=== PATIENT | female | born 1955 | race Caucasian/White ===

== ENCOUNTER 2023-07-06 09:55 | Outpatient (OUT) | payer MEDICARE, OTHER, SELFPAY ==
[2023-07-06 10:27] LABS: Basophils Absolute Auto 0.1 10^3/uL (0.0-0.1); Basophils Percent Auto 1.8 % (0.2-2.0); Eosinophils Absolute Auto 0.1 10^3/uL (0.0-0.7); Eosinophils Percent Auto 3.2 % (0.9-7.0); Hematocrit 38.2 % (36.0-48.0); Hemoglobin 12.3 g/dL (12.0-16.0); Immature Granulocytes Abs Auto 0.01 10^3/uL (0.00-0.03); Immature Granulocytes Pct Auto 0.3 % (0.0-0.5); Lymphocytes Absolute Auto 1.1 10^3/uL (1.2-3.8); Lymphocytes Percent Auto 28.7 % (20.5-60.0); Mean Corpuscular HGB Conc 32.2 g/dL (29.9-35.2); Mean Corpuscular Hemoglobin 30.1 pg (26.7-34.0); Mean Corpuscular Volume 93.6 fL (81.0-99.0); Mean Platelet Volume 9.8 fL (9.5-13.5); Monocytes Absolute Auto 0.3 10^3/uL (0.3-0.8); Monocytes Percent Auto 8.4 % (1.7-12.0); Neutrophils Absolute Auto 2.2 10^3/uL (1.4-6.5); Neutrophils Percent Auto 57.6 % (43.0-75.0); Platelet Count 263 10^3/uL (150-450); Red Blood Count 4.08 10^6/uL (4.20-5.40); Red Cell Distribution Width 12.1 % (11.0-15.0); White Blood Count 3.8 10^3/uL (4.0-11.0)
[2023-07-06 10:36] LABS: Erythrocyte Sedimentation Rate 14 mm/hr (<=30)
[2023-07-06 11:10] LABS: Alanine Aminotransferase 21 U/L (14-59); Albumin Globulin Ratio 0.8; Albumin Level 3.9 g/dL (3.4-5.0); Alkaline Phosphatase 59 U/L (46-116); Anion Gap 11.1; Aspartate Amino Transferase 16 U/L (15-37); BUN Creatinine Ratio 13.2; Bilirubin Total 0.5 mg/dL (0.2-1.0); C Reactive Protein <0.2 mg/dL (<=1.0); Calcium 9.2 mg/dL (8.5-10.1); Carbon Dioxide 27.9 mmol/L (21.0-32.0); Chloride 103 mmol/L (98-107); Chol HDL Ratio 1.9; Cholesterol 198 mg/dL (<=200); Estimated GFR (African America >60 (>=60); Estimated GFR (Non-African Ame >60 (>=60); Globulin 4.6 g/dL; Glucose 85 mg/dL (74-106); HDL Cholesterol 105 mg/dL (40-60); Sodium 138 mmol/L (136-145); Total Protein 8.5 g/dL (6.4-8.2); Triglycerides 45 mg/dL (<=150); Uric Acid 3.3 mg/dL (2.6-6.0)
[2023-07-07 06:08] LABS: Rheumatoid Factor (RF) <10.0 IU/mL (<14.0)
[2023-07-07 12:09] LABS: PTH, Intact 36 pg/mL (15-65)
[2023-07-08 08:11] LABS: Antinuclear Antibodies, IFA Negative (.)
== END 2023-07-06 09:56 | disposition home or self-care (01) ==
PROVIDERS: PCP Internal Medicine; Visit Provider Nurse Practitioner Family
DX: Z00.00 Encounter for general adult medical examination without abnormal findings (principal); M79.10 Myalgia, unspecified site
CPT/HCPCS: 36415; 80053; 80061; 82306; 83970; 84550; 85025; 85652; 86038; 86140; 86430; 86431

== ENCOUNTER 2023-07-20 19:46 | Outpatient (REF) | payer MEDICARE, OTHER, SELFPAY ==
[2023-07-26 14:12] LABS: Age Gdln ACOG Testing Note (.); Pap IG (Image Guided) Note (.)
== END 2023-07-20 19:47 | disposition home or self-care (01) ==
LOC: LAB 19:46
PROVIDERS: PCP Internal Medicine; Visit Provider Obstetrics & Gynecology
DX: Z01.419 Encounter for gynecological examination (general) (routine) without abnormal findings (principal)
CPT/HCPCS: G0145

== ENCOUNTER 2024-01-02 12:10 | Emergency (ER) | payer MEDICARE, OTHER, SELFPAY ==
[2024-01-02 12:14] VITALS: BP 140/75; PULSE 90; TEMP 36.8; O2SAT 99; BMI 19.7
--- OUTSIDE RECORDS SUMMARY | 2024-01-02 12:17 | XMS_ITS | CCD ---
Author Organization [facility] Care Team Providers Care Psychiatric Nurse Name Role Phone JELANI EBER J Referring Unavailable SHER, EBER J Primary Care Unavailable RADIOLOGIST, MTH GEN Attending Unavailable SHRE, EBER J Referring Unavailable SHER, EBER J Primary Care Unavailable NED CARVALHO Admitting Unavailable NED CARVALHO Attending Unavailable SHER, EBER J Primary Care Unavailable SHER, EBER J Referring Unavailable SHER, EBER J Primary Care Unavailable Sher, Eber J Primary Care Provider DO Efren Stanley Primary Care Provider [phone] DO Efren Stanley Attending Provider None, No PCP Unavailable Unavailable Henrique Vail Referring Unavailable Henrique Vail Attending Unavailable DO Efren Stanley Primary Care Provider MD Henrique Vail Attending Provider [phone] MD Roz Aguilera Attending Provider [phone] DO Efren Stanley Referring Provider [phone] Self, Referral Attending Provider Unavailable DR PATRICK VENTURA V Attending Unavailable LORENZO, DR PATRICK Yeh Consulting Unavailable DR PATRICK VENTURA V Admitting Unavailable SHWETHA ., DR ZAVALA Attending Unavailable SHWETHA ., DR ZAVALA Consulting Unavailable SHWETHA ., DR ZAVALA Admitting Unavailable SHWETHA ., DR ZAVALA Admitting Unavailable SHWETHA ., DR ZAVALA Attending Unavailable SHWETHA ., DR ZAVALA Consulting Unavailable ZIEBER, DR NED Lawton Consulting Unavailable Lucas Lan Referring Unavailable Self, Referral Admitting Unavailable Self, Referral Attending Unavailable Efren Stanley Primary Care Unavailable Problems Active Problems Problem Classification Problem Date Documented Da te Episodic/Chronic Osteoporosis (1 source) Age-related osteoporosis without current pathological fracture; Translations: [AGE-REL OSTEOPOR W/O CURR PATH FX] Onset: 03-29-2022 Chronic Other screening for suspected conditions (not mental disorders or infectious disease) (1 source) Radiology result abnormal; Translations: [Other nonspecific (abnormal) findings on radiological and other examinations of body structure] Chronic Unclassified (1 source) Encounter for screening mammogram for malignant neoplasm of breast; Translations: [Encounter for screening mammogram for malignant neoplasm of breast] Onset: 11-30-2023 Varicose veins of lower extremity (4 sources) Varicose veins of bilateral lower extremities with pain; Translations: [VARICOSE VNS DICK LOW EXTREM W/PAIN] Onset: 12-08-2022 Episodic Past or Other Problems Problem Classification Problem Date Documented Date Episodic/Chronic Immunizations and screening for infectious disease (1 source) Encounter for screening for human papillomavirus (HPV); Translations: [ENC SCREENING HUMAN PAPILLOMAVIRUS] Onset: 03-19-2022 Episodic Nonmalignant breast conditions (1 source) Mastodynia; Translations: [MASTODYNIA] Onset: 03-29-2022 Episodic Other screening for suspected conditions (not mental disorders or infectious disease) (5 sources) Mammography abnormal; Translations: [Encounter for screening for malignant neoplasm of cervix] Onset: 03-16-2022 Episodic Residual codes; unclassified (4 sources) Asymptomatic menopausal state; Translations: [ASYMPTOMATIC MENOPAUSAL STATE] Onset: 03-24-2022 Episodic Unclassified (1 source) Patient encounter status; Translations: [Colon cancer screening] Onset: 03-02-2019 Resolved: 04-11-2019 04-11-2019 Results Test Name Value Interpretation Reference Range Facility MM screening mammo BI w/CADo n 11-30-2023 MM screening mammo BI w/CAD [facility] [place] [address] Mammography Report Signed Patient: Mirian Corrales MR#: [id number] 67 : 1955 Acct:[id number] Age/Sex: 68 / F ADM Date: 11/30/23 Loc: [place] Room: Type: [facility] Attending Dr: Referral Self Copies to: Lucas Stanley,DO SELF,REFERRAL Ordering Provider: SELF,REFERRAL Date of Service: 11/30/23 MM/MM screening mammo BI w/CAD: SCREENING CLINICAL DATA: Screening for malignancy. SCREENING MAMMOGRAM - FULL FIELD DIGITAL WITH TOMOSYNTHESIS AND CAD COMPARISON:Mammograms dating back to 2019 Tomosynthesis craniocaudal and mediolateral oblique views of both breasts were obtained using low- dose digital technique. This examination was reviewed with the aid of CAD. FINDINGS: The breast tissue is composed of scattered fibroglandular densities. There are no dominant masses, typically malignant calcifications or architectural distortion. There has been no significant interval change. MM/MM screening mammo BI w/CAD IMPRESSION: NO MAMMOGRAPHIC EVIDENCE OF MALIGNANCY. ROUTINE FOLLOW-UP IS RECOMMENDED IN ONE YEAR. RESULT CODE: 1 Negative DENSITY CODE: 2 (approximately 25-50% glandular) FOLLOW UP: 1YR The false-negative rate of mammography is approximately 10-percent. Management of a palpable abnormality must be based on clinical grounds. Patient was entered into a reminder system with a target due date for the next mammogram. Impression dictated by: Toribio Michael Jr., D.OBuddy11/30/2023 3:26 PM Dictation Location: [facility] Transcribed By: JULIOCESAR 11/30/23 1526 Dictated By: Toribio Michael Jr, DO 11/30/23 1525 Signed By: 11/30/23 1526 Normal [facility] Albumin [Mass/volume] in Ser um or PlasmaOrdered By: Henrique Vail on 09-18-2022 Albumin [Mass/Vol] 4.0 g/dL 3.2-5.5 [facility] Alkaline phosphatase [Enzyma tic activity/volume] in Serum or PlasmaOrdered By: Henrique Vail on 09-18-2022 ALP [Catalytic activity/Vol] 44 U/L 32-92 [facility] Aspartate aminotransferase [ Enzymatic activity/volume] in Serum or PlasmaOrdered By: Henrique Vail on 09-18-2022 AST [Catalytic activity/Vol] 23 U/L 10-42 [facility] Bilirubin.direct [Mass/volum e] in Serum or PlasmaOrdered By: Henrique Vail on 09-18-2022 Bilirubin.direct [Mass/Vol] mg/dL 0.0-0.4 [facility] Bilirubin.total [Mass/volume ] in Serum or PlasmaOrdered By: Henrique Vail on 09-18-2022 Bilirubin [Mass/Vol] 0.4 mg/dL 0.3-1.2 [facility] Globulin Calc (S) [Mass/Vol] Ordered By: Henrique Vail on 09-18-2022 Globulin (S) [Mass/Vol] 2.7 g/dL [facility] Protein [Mass/volume] in Ser um or PlasmaOrdered By: Henrique Vail on 09-18-2022 Protein [Mass/Vol] 6.7 g/dL 6.1-7.9 [facility] Serum or plasma alanine steve otransferase measurement without P-5'-P (enzymatic activiOrdered By: Henrique Vail on 09-18-2022 ALT No additional P-5'-P [Catalytic activity/Vol] 23 U/L 10-60 [facility] Serum or plasma albumin/glob ulin mass ratioOrdered By: Henrique Vail on 09-18-2022 Albumin/Globulin [Mass ratio] 1.5 {ratio} [facility] Serum or plasma non-glucuron idated bilirubin measurement (mass/volume)Ordered By: Henrique Vail on 09-18-2022 Bilirubin.indirect [Mass/Vol] TNP [facility] Comment on above: Test not performed Initial Visit (Gastroenterol ogy)on 08-26-2022 Initial Visit (Gastroenterology) Diagnoses/Problems Assessed Abnormal radiographic examination (793.99) (R93.89) Orders Abnormal radiographic examination Hepatic Function Panel; Status:Active; Requested for:[id number]; Perform:Lab Services - Lab To Draw (Blood Test); Due:[id number];Ordered; For:Abnormal radiographic examination; Ordered By:Henrique Vail; Provider Impressions Family history of pancreas and other cancers. MR shows possibel cutoff or to my eye looks like artifact possibly from right hepatic artery. There is no proximal dilation to suggest obstruction. Will check LFTs. If they are normal would consider repeat scan in few months. FOr familial pancreas cnacer we spent time discussing guidelines -- pros and ocns of annual imaging as long as she is healthy. SHe had MR this year. Would get EUS next year. Total time 25 minutes Chief Complaint A telephone visit (audio only) between the patient (at the originating site) and the provider (at the distant site) was utilized to provide this telehealth service. Fam Hx Panc Ca History of Present IllnessOne brother age 45 and another at age 51 had pancreatic cancer; had genetic testing. Father had BRIP1 mutation. Paternal grandmother (70's), paternal aunt (60's) and endometrial cancer and daughter (41) had breast cancer; maternal aunt had breast cancer. She herselt healthy and getting screened. Is on gluten free dairy free diet and also on probiotcis. No surgery before. Screenign colonoscopy a few years ago. Non-smoker. 5'6 weighs 125 lbs. Exercise daily. Family History Brother Family history of pancreatic cancer (V16.0) (Z80.0)1 1 Amended By: Henrique Vail; Aug 26 2022 10:28 AM ESTSignatures Electronically signed by : Henrique Vail MD; Aug 26 2022 10:28AM EST (Author) Normal [facility] MG MAMM DIAGNOSTIC 3D DICK CA Don 03-24-2022 MG MAMM DIAGNOSTIC 3D DICK CAD Patient: MIRIAN CORRALES Exam Date: 03/24/2022 : 1955 Gender:F Ordering : DR LUCAS LAN . Admission #: [id number] Family : Order #: [id number] CLICK HERE TO VIEW EXAM RADIOLOGY REPORT PROCEDURE: MAMMOGRAM DIAGNOSTIC 3D BILATERAL CAD, 03/24/2022, 13:26 ULTRASOUND BREAST BILATERAL LIMITED, 03/24/2022, 14:14 COMPARISON: US BREAST LEFT COMPLETE, 05/05/2019. US BREAST RIGHT COMPLETE, 05/05/2019. MG MAMM DICK SCRN W CAD DIG, 11/08/2021. MG MAMM DICK DIAG W CAD, 05/05/2019. INDICATIONS: Pain of breast Calculator Name NCI Breast Cancer Risk Assessment Tool 5 Year Breast Cancer Risk 3.20% Lifetime Breast Cancer Risk 11.30% Personal Breast Cancer No Personal Ovarian Cancer No Treatments None Family Cancers Daughter with breast cancer at age 41; Aunt-paternal with breast cancer at age 70; Grandmother-paternal with ovarian cancer at age 74; Brother with pancreatic cancer at age 51; Brother with pancreatic cancer at age 45; Father with melanoma cancer at age 88; Niece with melanoma cancer at age 25; Aunt-maternal with breast cancer at age 35. LOCATION: [facility] BREAST COMPOSITION: Heterogeneously dense,which may obscure small masses. FINDINGS: DIAGNOSTIC CATEGORY 2--BENIGN FINDING: RIGHT BREAST: Stable asymmetries within the upper-outer quadrant, subareolar and within the axillary tail. Ultrasound evaluation demonstrates a stable, nonspecific area at the 9 o'clock position suspected represent normal fibroglandular tissue, not appreciably changed. Benign-appearing lymph node within the axillary tail. No specific findings to account for patient's tenderness. LEFT BREAST: A stable mild asymmetries within the upper-outer quadrant, anterior breast. Ultrasound evaluation demonstrates a benign-appearing cyst at the 3 o'clock position 3 millimeters in maximum size. Nonspecific 5 mm area at the 4 o'clock position without definable margins; not appreciably changed. RECOMMENDATIONS: Patient has had multiple studies done at multiple different sites with some of the images and some of the reports available for comparison. Consistency may be beneficial for evaluating for changes and completeness of care. Short-term follow-up could be performed if any changes noted. ROUTINE MAMMOGRAM AND CLINICAL EVALUATION IN 12 MONTHS. PLEASE NOTE: A NORMAL MAMMOGRAM DOES NOT EXCLUDE THE POSSIBILITY OF BREAST CANCER. A CLINICALLY SUSPICIOUS PALPABLE LUMP SHOULD BE BIOPSIED. Dictated by: Ned Paulino M.D. on 03/24/2022 at 14:28 Approved by: Ned Paulino M.D. on 03/24/2022 at 14:41 Normal [facility] US BREAST DICK LIMITEDon 07-0 US BREAST DICK LIMITED Patient: MIRIAN CORRALES Exam Date: 03/24/2022 : 1955 Gender:F Ordering : DR LUCAS LAN . Admission #: [id number] Family : Order #: [id number] CLICK HERE TO VIEW EXAM RADIOLOGY REPORT PROCEDURE: MAMMOGRAM DIAGNOSTIC 3D BILATERAL CAD, 03/24/2022, 13:26 ULTRASOUND BREAST BILATERAL LIMITED, 03/24/2022, 14:14 COMPARISON: US BREAST LEFT COMPLETE, 05/05/2019. US BREAST RIGHT COMPLETE, 05/05/2019. MG MAMM DICK SCRN W CAD DIG, 11/08/2021. MG MAMM DICK DIAG W CAD, 05/05/2019. INDICATIONS: Pain of breast Calculator Name NCI Breast Cancer Risk Assessment Tool 5 Year Breast Cancer Risk 3.20% Lifetime Breast Cancer Risk 11.30% Personal Breast Cancer No Personal Ovarian Cancer No Treatments None Family Cancers Daughter with breast cancer at age 41; Aunt-paternal with breast cancer at age 70; Grandmother-paternal with ovarian cancer at age 74; Brother with pancreatic cancer at age 51; Brother with pancreatic cancer at age 45; Father with melanoma cancer at age 88; Niece with melanoma cancer at age 25; Aunt-maternal with breast cancer at age 35. LOCATION: [facility] BREAST COMPOSITION: Heterogeneously dense,which may obscure small masses. FINDINGS: DIAGNOSTIC CATEGORY 2--BENIGN FINDING: RIGHT BREAST: Stable asymmetries within the upper-outer quadrant, subareolar and within the axillary tail. Ultrasound evaluation demonstrates a stable, nonspecific area at the 9 o'clock position suspected represent normal fibroglandular tissue, not appreciably changed. Benign-appearing lymph node within the axillary tail. No specific findings to account for patient's tenderness. LEFT BREAST: A stable mild asymmetries within the upper-outer quadrant, anterior breast. Ultrasound evaluation demonstrates a benign-appearing cyst at the 3 o'clock position 3 millimeters in maximum size. Nonspecific 5 mm area at the 4 o'clock position without definable margins; not appreciably changed. RECOMMENDATIONS: Patient has had multiple studies done at multiple different sites with some of the images and some of the reports available for comparison. Consistency may be beneficial for evaluating for changes and completeness of care. Short-term follow-up could be performed if any changes noted. ROUTINE MAMMOGRAM AND CLINICAL EVALUATION IN 12 MONTHS. PLEASE NOTE: A NORMAL MAMMOGRAM DOES NOT EXCLUDE THE POSSIBILITY OF BREAST CANCER. A CLINICALLY SUSPICIOUS PALPABLE LUMP SHOULD BE BIOPSIED. Dictated by: Ned Paulino M.D. on 03/24/2022 at 14:28 Approved by: Ned Paulino M.D. on 03/24/2022 at 14:41 Normal [facility] XR DEXA BONE DENSITYon 03-24 XR DEXA BONE DENSITY EXAMINATION: XR DEX A BONE DENSITY, 03/24/2022 12:57 PM EDT HISTORY: Menopause present COMPARISON: DEXA bone densitometry 09/18/2019 TECHNIQUE: Dual-energy X-ray absorptiometry (DEXA) bone density study performed for the axial skeleton. FINDINGS: SPINE ANALYSIS: Average bone mineral density is 1.094 g/cm2. T-score (standard deviation relative to young adult mean): -0.7 . -1.7% change since prior study. HIP ANALYSIS: Lowest bone mineral density is within the left femoral neck, 0.639 g/cm2. T-score (standard deviation relative to young adult mean): -2.9 . -2.0% change since prior study. IMPRESSION: World Earl Organization Classification: Osteoporosis - High Fracture Risk Electronically authenticated by: NED PAULINO Date: 2022-03-24 17:39 Normal [facility] PAP ACOG PANEL 2: 30 to 65on 03-19-2022 . . Normal [facility] Comment on above: Performed By: #### [id number] #### [facility] [address] [place] [address] Dr. Lilo Warren Age Gdln ACOG Testing Comment Normal [facility] Comment on above: Result Comment: <21 or >65 or no age provided Performed By: #### [id number] #### [facility] [address] [place] [address] Dr. Lilo Warren DIAGNOSIS: Comment [facility] Comment on above: Result Comment: NEGA TIVE FOR INTRAEPITHELIAL LESION OR MALIGNANCY. CELLULAR CHANGES ASSOCIATED WITH ATROPHY ARE PRESENT. Performed By: #### [id number] #### [facility] [address] [place] [address] Dr. Lilo Warren Methodology: Comment [facility] Comment on above: Result Comment: This liquid based ThinPrep(R) pap test was screened with the use of an image guided system. Performed By: #### [id number] #### [facility] [address] [place] [address] Dr. Lilo Warren Note: Comment [facility] Comment on above: Result Comment: The Pap smear is a screening test designed to aid in the detection of premalignant and malignant conditions of the uterine cervix. It is not a diagnostic procedure and should not be used as the sole means of detecting cervical cancer. Both false-positive and false-negative reports do occur. . Performed By: #### [id number] #### [facility] [id number] Lilo Warren Performed by: Comment Normal [facility] Comment on above: Result Comment: Yg Smith, Orthotic Technician (ASCP) Performed By: #### [id number] #### [facility] [address] [place], [place] [address] Dr. Lilo Warren Specimen adequacy: Comment Normal [facility] Comment on above: Result Comment: Sati sfactory for evaluation. Endocervical and/or squamous metaplastic cells (endocervical component) are present. Performed By: #### [id number] #### [facility] [address] [address] [address] Lilo Viveros 08-24-2019 CNOV Office Visit (JIGNESHBD ) MIRIAN CORRALES ([id number]) 1955 F Date Time Provider Department 08/24/19 1:00 PM JENISE NORTON [facility] During your visit today, we recorded the following information about you: Weight Height 57.6 kg 1.676 m Megan Shields Ma 08/24/2019 12:55 PM Signed General Breast Health Recommendations A healthy body helps promote healthy breasts. If you smoke, please consider a smoking cessation program. If you do not exercise, please consider starting an exercise program if you are able to, even if it is just walking in your neighborhood. Research shows that obesity, especially post-menopausal obesity, is a risk factor for breast cancer. Obtaining calcium in your diet or taking a calcium supplement that contains vitamin D is good for your bones. There is evolving evidence that Vitamin D supplementation may also help to decrease breast cancer risk. If you are post-menopausal and are bothered by hot flashes and still have a uterus, combined estrogen-progesterone preparations can increase your risk of breast cancer if taken for longer than five years. Alcohol is also an under-recognized risk factor. Every drink you have daily increases your breast cancer risk by 10%. Mammograms save lives. Have an annual mammogram annually beginning at age 40. Continue annual mammograms as long as you remain in good health. Breast self-exam, performed on day 7 of your menstrual cycle, can also be very helpful. Know your breasts and report changes to your health care provider or breast specialist. Clinical breast exams by your primary care provider or breast specialist are recommended annually every 1-3 years for women over the age of 20 and annually after the age of 40. Increased frequency of the clinical exam may be recommended for women at increased risk of breast cancer. Risk factors for breast cancer: Being a woman Family history of breast cancer Early menarche (onset of menses) prior to age 13 Nulliparity (never had children) First child after age 30 Late menopause (stopping of periods) after age 55 History of breast biopsy that showed atypical cells (ADH, ALH, LCIS, FEA) Presence of a genetic mutation (BRCA1, BRCA2, PTEN, P53, CDH1) History of chest wall irradiation (such as with Hodgkin's Lymphoma) prior to age 30 Personal history of breast cancer Post-menopausal Obesity Combined hormone therapy (estrogen and progesterone) for greater than 5 years Alcohol consumption of greater than 7 alcohol-containing drinks per week Breast density If you have a family history of breast or ovarian cancer, review this with your primary care provider or breast specialist to see if a referral for genetic counseling is recommended. 5-10% of breast cancers and up to 15% of ovarian cancers are linked to a genetic mutation. Signs of hereditary breast cancer syndrome include breast cancer that occurs under the age of 50, ovarian cancer at any age, male breast cancer, multiple family members affected with breast cancer, and a history of Ashkenazi Restorationist ancestry. Breast pain is very common and usually is not a sign of cancer, but should be evaluated by a breast specialist. For comfort, simply reducing caffeine (coffee, tea, chocolate, energy drinks, sodas) in your diet can provide relief. A properly fitted bra can also be helpful in reducing breast pain. If those two measures do not provide relief, taking Evening Blakeslee Oil 1000mg capsules twice a day for a short period of time (three to four months) may be helpful. Many women wonder about their breast density. Dense breast tissue is, in and of itself, a relatively common condition which could hide abnormalities in a screening mammogram. This information is not provided to cause undue concern; rather, it is to raise your awareness and promote discussion with your health care provider regarding the presence of dense breast tissue in addition to other risk factors. If you would like to compliment one of our caregivers you encountered today, you may do so at [email or web address]. Thank you ! Megan Shields Ma 08/24/2019 1:56 PM Signed MEDICAL BREAST PATIENT NAME: Mirian Corrales August 24, 2019 REFERRAL: She is seen at the request of self referral. 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 On 04/10/19 she underwent baseline mammogram at outside facility with findings of bilateral focal asymmetries for additional imaging recommended. On 05/05/19 she underwent bilateral diagnostic mammogram and ultrasound with findings right breast questionable hypoechoic area in right suspect complex cyst breast-short term follow up in 6 months, Questionable 4 mm mixed echogenic focus in left breast-short term follow up in 6 months and Mild cortical thickening of axillary lymph nodes bilaterally-follow on subsequent exams. She notes right breast tenderness and possible right breast indentation which she has noticed over the past few months with no changes. The patient denies any breast masses, pain, or nipple discharge. Her vitamin D level was No results found for: VITD25. She takes vitamin D daily dose uknown. BMD: NA PERSONAL BREAST HISTORY: Past breast history (prior to this encounter) is as follows: Breast biopsy: No Breast cysts: No Breast surgery: No Breast cancer: No CANCER SURVEILLANCE: Mammograms: Yes, per patient report in 04/10/2019, showing-see above Breast MRI: No Colonoscopy: Yes, per patient report in 04/2019, normal RISK FACTORS FOR BREAST CANCER: Age at the onset of menses: 13 years of age. P: 1 Age at the of first child: 24 years of age. She breast fed for 4 years total. Age at menopause: 53 years of age. Post-menopausal hormone therapy: No She has an intact uterus and ovaries She is postmenopausal and does not use control. History of Mantle Radiation prior to the age of 30: No Obesity: No Current Weight: 127 lbs Mammographic density: The breasts are heterogeneously dense which limits the sensitivity of mammography Personal History of Benign Atypical Breast Biopsy: No Alcohol use: occasional PAST MEDICAL HISTORY: History reviewed. No pertinent past medical history. Patient specifically denies history of: DVT, PE, migraine headaches WITH AURA, migraine headaches without aura, abnormal uterine bleeding, abnormal uterine biopsies, osteopenia and osteoporosis. PAST SURGICAL HISTORY: History reviewed. No pertinent surgical history. SOCIAL HISTORY: Social History Tobacco Use - Smoking status: Never Smoker - Smokeless tobacco: Never Used Substance Use Topics - Alcohol use: Yes Frequency: 2-4 times a month - Drug use: Never Caffeine intake: 4 cups / day Exercise: Most days <20 minutes FAMILY HISTORY: Family history of breast cancer: Maternal aunt dx 42 and at 84, paternal aunt dx 75- Family history of ovarian cancer: PGM dx dx 77- Number of sisters: 1 Number of maternal aunts: 1 Number of paternal aunts: 1 Ashkenazi Ancestry: no Has Patient had Genetic Testing? No Other Cancer: Brother pancreatic dx 45 and , father skin cancer dx 88 alive and well, niece skin cancer dx 25 alive and well - There is no family history of prostate, colon, uterine, gastric, brain, renal cell or thyroid cancer. - There is no family history of melanoma, sarcoma or leukemia. Osteoporosis: maternal aunt age 70 Stroke: None Blood Clot: None Heart attack: maternal uncle age 80 Thyroid Nodule or Goiter: Mother Autism: None Megan Shields Ma Reviewed and discussed nursing notes with the patient. Jenise Norton APRN.MECHANICAL ENGINEERING TECHNICIAN FAMILY HISTORY Problem Relation Age of Onset - Skin Cancer Father 88 - Skin Cancer Brother 45 - Ovarian cancer Paternal Grandmother 77 - Skin Cancer Niece 25 - Breast Cancer Maternal Aunt 42 - Breast Cancer Paternal Aunt 75 MEDICATIONS: Lactobacillus acidophilus (PROBIOTIC ORAL) Take by mouth. cholecalciferol, vitamin D3, (VITAMIN D3 ORAL) Take by mouth. ALLERGIES: ALLERGIES Allergen Reactions - Dairy Aid [Lactase] Swelling Bloating - Wheat Swelling REVIEW OF SYSTEMS: The patient specifically denies unintentional weight loss, insomnia, hot flashes, night sweats, abnormal swelling in the arms or legs, chest pain, shortness of breath, cough, heartburn, urinary incontinence, vaginal dryness, decreased libido, unusual bony pains or severe headaches. PHYSICAL EXAM: Ht 167.6 cm (5' 6 ) Wt 57.6 kg (127 lb) BMI 20.50 kg/m? General: well-nourished, healthy, thin, white, female, alert and oriented x 3, calm Skin: warm, dry, skin color, texture, turgor normal Head/Eyes: normocephalic, atraumatic and anicteric Lymph nodes- The supraclavicular, axillary, and cervical regions are free of significant lymphadenopathy. Shotty lymph node noted in right axilla Right breast-The skin, nipple and areola appear normal. There is no skin dimpling with movement of the pectoralis. There is no nipple retraction. No discharge can be elicited. The parenchya is moderately fibrocystic. There is no dominant masses in the breast. The axillary tail is normal. There is no tenderness noted with palpation. Very faint indentation noted upper outer quadrant which she noted is area of concern. Area best seen in supine position Left breast- The skin, nipple, and areola appear normal. There is no skin dimpling with movement of the pectoralis. There is no nipple retraction. No discharge can be elicited. The parenchyma is moderately fibrocystic. At the 4 o'clock position 2 cmfn there is a area of prominent soft fibrocystic change. The axillary tail is normal. There is no tenderness noted with palpation. IMAGING: Bilateral diagnostic mammograms were performed today in the breast center and showed the tissue is predominately fatty. There is no sonographic abnormalities noted bilaterally Assessment IMPRESSION/PLAN: Mirian Corrales is a 63 year old year old female with bilateral fibrocystic change, an abnormal mammogram, a breast mass and benign skin changes There is no evidence of malignancy. The patient was reassured as to the benign nature of her clinical, mammographic, and sonographic findings. Her data were entered into the Tyrer-Cuzick model for Risk Assessment. Her 5 year projected risk of developing invasive breast cancer is 1.2% and her lifetime risk of breast cancer is estimated to be 4.9%. She does not meet ACS criteria for screening breast MRI, but will be followed annually in the Breast Center with annual digital mammography. Genetics referral made: Yes: Reason: her brother had pancreatic cancer at age 45, [place] breast cancer, [place] dx 42- and PGM had ovarian cancer Chemoprevention discussion: Will be deferred until genetics issues are settled. The patient is advised to exercise regularly, achieve/maintain ideal body weight, and to limit alcohol consumption to less than 7 drinks weekly for breast cancer risk reduction and overall health. The patient has an active breast problem and will be seen in follow up in the breast center. She will return in one year for bilateral digital mammogram and clinical evaluation. She will call me in the interim should she have any questions or concerns. My final recommendations will be communicated back to the requesting physician by way of shared medical record or letter via US mail. Total face to face time was 30 minutes with >50% spent on counseling the patient or coordinating her care. Jenise Norton APRN.[facility] Medical Breast Specialist August 24, 2019 CC: Referring Provider: SELF [[id number]] Allergies As of Date: 08/24/2019 Noted Allergy Reaction DAIRY AID (LACTASE) 08/24/2019 7 - Swelling Comments: Bloating WHEAT 08/24/2019 7 - Swelling Date Reviewed: 08/24/2019 Reviewed by: Jenise Norton - Fully Assessed Reason for Visit: New Patient [[id number]] Cmt: abnormal mammogram Primary Visit Diagnosis:Abnormal mammogram [R92.8] Other Visit Diagnoses:Fibrocystic breast changes of both breasts [N60.11, N60.12] Lump of left breast [N63.20] Family history of pancreatic cancer [Z80.0] Family history of breast cancer [Z80.3] Order(s):CONSULT TO MEDICAL GENETICS - CANCER [[id number]] Order #: [id number]: 1 Prescriptions as of 08/24/2019 Sig: PROBIOTIC ORAL Take by mouth. VITAMIN D3 ORAL Take by mouth. Problem List As Of Date: 08/24/2019 (None) Other instructions from your clinician: General Breast Health Recommendations A healthy body helps promote healthy breasts. If you smoke, please consider a smoking cessation program. If you do not exercise, please consider starting an exercise program if you are able to, even if it is just walking in your neighborhood. Research shows that obesity, especially post-menopausal obesity, is a risk factor for breast cancer. Obtaining calcium in your diet or taking a calcium supplement that contains vitamin D is good for your bones. There is evolving evidence that Vitamin D supplementation may also help to decrease breast cancer risk. If you are post-menopausal and are bothered by hot flashes and still have a uterus, combined estrogen-progesterone preparations can increase your risk of breast cancer if taken for longer than five years. Alcohol is also an under-recognized risk factor. Every drink you have daily increases your breast cancer risk by 10%. Mammograms save lives. Have an annual mammogram annually beginning at age 40. Continue annual mammograms as long as you remain in good health. Breast self-exam, performed on day 7 of your menstrual cycle, can also be very helpful. Know your breasts and report changes to your health care provider or breast specialist. Clinical breast exams by your primary care provider or breast specialist are recommended annually every 1-3 years for women over the age of 20 and annually after the age of 40. Increased frequency of the clinical exam may be recommended for women at increased risk of breast cancer. Risk factors for breast cancer: Being a woman Family history of breast cancer Early menarche (onset of menses) prior to age 13 Nulliparity (never had children) First child after age 30 Late menopause (stopping of periods) after age 55 History of breast biopsy that showed atypical cells (ADH, ALH, LCIS, FEA) Presence of a genetic mutation (BRCA1, BRCA2, PTEN, P53, CDH1) History of chest wall irradiation (such as with Hodgkin's Lymphoma) prior to age 30 Personal history of breast cancer Post-menopausal Obesity Combined hormone therapy (estrogen and progesterone) for greater than 5 years Alcohol consumption of greater than 7 alcohol-containing drinks per week Breast density If you have a family history of breast or ovarian cancer, review this with your primary care provider or breast specialist to see if a referral for genetic counseling is recommended. 5-10% of breast cancers and up to 15% of ovarian cancers are linked to a genetic mutation. Signs of hereditary breast cancer syndrome include breast cancer that occurs under the age of 50, ovarian cancer at any age, male breast cancer, multiple family members affected with breast cancer, and a history of Ashkenazi Restorationist ancestry. Breast pain is very common and usually is not a sign of cancer, but should be evaluated by a breast specialist. For comfort, simply reducing caffeine (coffee, tea, chocolate, energy drinks, sodas) in your diet can provide relief. A properly fitted bra can also be helpful in reducing breast pain. If those two measures do not provide relief, taking Evening Blakeslee Oil 1000mg capsules twice a day for a short period of time (three to four months) may be helpful. Many women wonder about their breast density. Dense breast tissue is, in and of itself, a relatively common condition which could hide abnormalities in a screening mammogram. This information is not provided to cause undue concern; rather, it is to raise your awareness and promote discussion with your health care provider regarding the presence of dense breast tissue in addition to other risk factors. If you would like to compliment one of our caregivers you encountered today, you may do so at [email or web address]. Thank you ! Disposition: Return in about 1 year (around 08/24/2020) for exam and mammogram . Follow-up and Disposition History Recorded Encounter Status:Closed by JENISE NORTON CNP on 08/25/19 Normal [facility] DIAGNOSTIC BILon 019 [facility] DIAGNOSTIC DICK * * *Final Report* * * DATE OF EXAM: Aug 24 2019 3:30PM [facility] 0620 - [facility] DIAGNOSTIC DICK / PROCEDURE REASON: multiple diagnoses * * * * Physician Interpretation * * * * #[id number] - [facility] DIAGNOSTIC DICK BILATERAL DIGITAL DIAGNOSTIC MAMMOGRAM WITH CAD: 08/24/2019 HISTORY: Abnormal Mammogram Outside Facility/Right Indentation/Left Lump. RESULT: TECHNIQUE: The study was acquired using full field digital technology and interpreted from soft copy. Current study was also evaluated with a Computer Aided Detection (CAD). Comparison is made to exams dated: 04/10/2019 mammogram and 05/05/2019 mammogram. The tissue of both breasts is predominantly fatty. No significant masses, calcifications, or other findings are seen in either breast. IMPRESSION: INCOMPLETE: NEEDS ADDITIONAL IMAGING EVALUATION There is no mammographic abnormality seen in the right breast to correspond with the area of clinical concern at 9 o'clock, however, ultrasound is recommended. There is no mammographic abnormality seen in the left breast to correspond with the palpable abnormality at 5 o'clock, however, ultrasound is recommended. SUMMARY: ULTRASOUND DICTATED SEPARATELY. Lindsey ventura/domingo:08/24/2019 15:32:33 News Editor(s): AISSATOU Woods)(M), [facility] Mammogram BI-RADS: 0 Incomplete: needs additional imaging evaluation Multiple national specialty organizations have released breast cancer screening guidelines for women at average risk for developing breast cancer - guidelines that are based on both evidence and opinion, yet differ on when to start and how often to screen for breast cancer. With representation from Breast Imaging, Internal Medicine, Women's Health, Family Medicine, and Medical/Surgical Oncology, the [facility] has carefully reviewed the data and reached the following consensus: 1) All women should engage in shared decision-making with their providers to decide when to start and how often to screen; 2) All women should have the opportunity to start screening mammography at age 40; 3) For women ages 45-55, we recommend annual screening mammograms; 4) For women ages 55 and over, we support both the transition from an annual to a biennial interval if this aligns more with patient's values and preferences, or continuation with annual screening; 5) All women should discuss with their providers when to stop screening mammograms. Mold Maker Helper: Domingo Transcribe Date/Time: Aug 24 2019 2:15P Dictated by : LINDSEY YOO MD This examination was interpreted and the report reviewed and electronically signed by: LINDSEY YOO MD on Aug 24 2019 3:32PM EST [id number] Normal [facility] LTon 08-24 [facility] * * *Final Report* * * DATE OF EXAM: Aug 24 2019 3:30PM [facility] 0593 - [facility] / PROCEDURE REASON: multiple diagnoses * * * * Physician Interpretation * * * * #[id number] - [facility] ULTRASOUND OF LEFT BREAST: 08/24/2019 HISTORY: Breast Lump/Outside Facility Follow Up. RESULT: Comparison is made to exam dated: 08/24/2019 mammogram - [facility]. Color flow and real-time ultrasound of the left breast were performed. The left axillary nodes appear normal. No abnormality is seen at left 4:00 2cmfn where outside ultrasound reported an abnormality. IMPRESSION: BENIGN FINDING There is no sonographic evidence of malignancy. There is no sonographic abnormality seen in the left breast to correspond with the palpable abnormality at 5 o'clock. Return to annual mammogram screening schedule is recommended. Lindsey ventura/domingo:08/24/2019 15:53:08 News Editor(s): RT Chuck(R)(M), [facility] Ultrasound BI-RADS: 2 Benign finding Multiple national specialty organizations have released breast cancer screening guidelines for women at average risk for developing breast cancer - guidelines that are based on both evidence and opinion, yet differ on when to start and how often to screen for breast cancer. With representation from Breast Imaging, Internal Medicine, Women's Health, Family Medicine, and Medical/Surgical Oncology, the [facility] has carefully reviewed the data and reached the following consensus: 1) All women should engage in shared decision-making with their providers to decide when to start and how often to screen; 2) All women should have the opportunity to start screening mammography at age 40; 3) For women ages 45-55, we recommend annual screening mammograms; 4) For women ages 55 and over, we support both the transition from an annual to a biennial interval if this aligns more with patient's values and preferences, or continuation with annual screening; 5) All women should discuss with their providers when to stop screening mammograms. Mold Maker Helper: Domingo Transcribe Date/Time: Aug 24 2019 3:03P Dictated by : LINDSEY YOO MD This examination was interpreted and the report reviewed and electronically signed by: LINDSEY YOO MD on Aug 24 2019 3:53PM EST [id number] Normal [facility] US BREAST LTD RTon 08-24 [facility] US BREAST LTD RT * * *Final Report* * * DATE OF EXAM: Aug 24 2019 3:30PM W 0594 - [facility] US BREAST LTD RT / PROCEDURE REASON: multiple diagnoses * * * * Physician Interpretation * * * * #[id number] - [facility] US BREAST LTD RT ULTRASOUND OF RIGHT BREAST: 08/24/2019 HISTORY: Indentation/[facility] Facility Follow Up. RESULT: Comparison is made to exam dated: 08/24/2019 mammogram - [facility]. Real-time ultrasound of the right breast was performed. The right axillary nodes appear normal. No abnormality is seen at 9:00 2cmfn where outside ultrasound reported an abnormality. IMPRESSION: BENIGN FINDING There is no sonographic evidence of malignancy. There is no sonographic abnormality seen in the right breast to correspond with the area of clinical concern at 9 o'clock. Return to annual mammogram screening schedule is recommended. Lindsey ventura/domingo:08/24/2019 15:54:44 News Editor(s): RT Chuck(Jered)(M), [facility] Ultrasound BI-RADS: 2 Benign finding Multiple national specialty organizations have released breast cancer screening guidelines for women at average risk for developing breast cancer - guidelines that are based on both evidence and opinion, yet differ on when to start and how often to screen for breast cancer. With representation from Breast Imaging, Internal Medicine, Women's Health, Family Medicine, and Medical/Surgical Oncology, the [facility] has carefully reviewed the data and reached the following consensus: 1) All women should engage in shared decision-making with their providers to decide when to start and how often to screen; 2) All women should have the opportunity to start screening mammography at age 40; 3) For women ages 45-55, we recommend annual screening mammograms; 4) For women ages 55 and over, we support both the transition from an annual to a biennial interval if this aligns more with patient's values and preferences, or continuation with annual screening; 5) All women should discuss with their providers when to stop screening mammograms. Mold Maker Helper: Domingo Transcribe Date/Time: Aug 24 2019 3:04P Dictated by : LINDSEY YOO MD This examination was interpreted and the report reviewed and electronically signed by: LINDSEY YOO MD on Aug 24 2019 3:55PM EST [id number] Normal [facility] PROGRESSon 08-24-2019 PROGRESS HNO ID: [id number] Author: Prabhakar Woods (Tech) Service: ? Author Type: Podopediatrician Type: Progress Notes Filed: 08/24/2019 3:31 PM Note Text: Radiology Service Progress Note PATIENT NAME: Mirian Corrales DATE OF SERVICE: August 24, 2019 TIME: 3:31 PM PATIENT IDENTITY VERIFICATION COMPLETED USING TWO (2) IDENTIFIERS: Name and Date of confirmed by patient verbally. PATIENT GENDER DATA: Female. status: : No status: NO. PATIENT RELEVANT IMPLANT DATA REVIEWED: Yes RADIOLOGY DEPARTMENT: Mammography PERIPHERAL IV DATA: Not applicable SIGNED BY: Prabhakar Woods August 24, 2019 3:31 PM Normal [facility] PROGRESS HNO ID: [id number] Author: Megan Shields Ma Service: ? Author Type: ? Type: Progress Notes Filed: 08/25/2019 8:25 AM Note Text: MEDICAL BREAST PATIENT NAME: Mirian Corrales August 24, 2019 REFERRAL: She is seen at the request of self referral. 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 On 04/10/19 she underwent baseline mammogram at outside facility with findings of bilateral focal asymmetries for additional imaging recommended. On 05/05/19 she underwent bilateral diagnostic mammogram and ultrasound with findings right breast questionable hypoechoic area in right suspect complex cyst breast-short term follow up in 6 months, Questionable 4 mm mixed echogenic focus in left breast-short term follow up in 6 months and Mild cortical thickening of axillary lymph nodes bilaterally-follow on subsequent exams. She notes right breast tenderness and possible right breast indentation which she has noticed over the past few months with no changes. The patient denies any breast masses, pain, or nipple discharge. Her vitamin D level was No results found for: VITD25. She takes vitamin D daily dose uknown. BMD: NA PERSONAL BREAST HISTORY: Past breast history (prior to this encounter) is as follows: Breast biopsy: No Breast cysts: No Breast surgery: No Breast cancer: No CANCER SURVEILLANCE: Mammograms: Yes, per patient report in 04/10/2019, showing-see above Breast MRI: No Colonoscopy: Yes, per patient report in 04/2019, normal RISK FACTORS FOR BREAST CANCER: Age at the onset of menses: 13 years of age. P: 1 Age at the of first child: 24 years of age. She breast fed for 4 years total. Age at menopause: 53 years of age. Post-menopausal hormone therapy: No She has an intact uterus and ovaries She is postmenopausal and does not use control. History of Mantle Radiation prior to the age of 30: No Obesity: No Current Weight: 127 lbs Mammographic density: The breasts are heterogeneously dense which limits the sensitivity of mammography Personal History of Benign Atypical Breast Biopsy: No Alcohol use: occasional PAST MEDICAL HISTORY: History reviewed. No pertinent past medical history. Patient specifically denies history of: DVT, PE, migraine headaches WITH AURA, migraine headaches without aura, abnormal uterine bleeding, abnormal uterine biopsies, osteopenia and osteoporosis. PAST SURGICAL HISTORY: History reviewed. No pertinent surgical history. SOCIAL HISTORY: Social History Tobacco Use - Smoking status: Never Smoker - Smokeless tobacco: Never Used Substance Use Topics - Alcohol use: Yes Frequency: 2-4 times a month - Drug use: Never Caffeine intake: 4 cups / day Exercise: Most days <20 minutes FAMILY HISTORY: Family history of breast cancer: Maternal aunt dx 42 and at 84, paternal aunt dx 75- Family history of ovarian cancer: PGM dx dx 77- Number of sisters: 1 Number of maternal aunts: 1 Number of paternal aunts: 1 Ashkenazi Ancestry: no Has Patient had Genetic Testing? No Other Cancer: Brother pancreatic dx 45 and , father skin cancer dx 88 alive and well, niece skin cancer dx 25 alive and well - There is no family history of prostate, colon, uterine, gastric, brain, renal cell or thyroid cancer. - There is no family history of melanoma, sarcoma or leukemia. Osteoporosis: maternal aunt age 70 Stroke: None Blood Clot: None Heart attack: maternal uncle age 80 Thyroid Nodule or Goiter: Mother Autism: None Megan Shields Ma Reviewed and discussed nursing notes with the patient. Jenise Norton APRN.MECHANICAL ENGINEERING TECHNICIAN FAMILY HISTORY Problem Relation Age of Onset - Skin Cancer Father 88 - Skin Cancer Brother 45 - Ovarian cancer Paternal Grandmother 77 - Skin Cancer Niece 25 - Breast Cancer Maternal Aunt 42 - Breast Cancer Paternal Aunt 75 MEDICATIONS: Lactobacillus acidophilus (PROBIOTIC ORAL) Take by mouth. cholecalciferol, vitamin D3, (VITAMIN D3 ORAL) Take by mouth. ALLERGIES: ALLERGIES Allergen Reactions - Dairy Aid [Lactase] Swelling Bloating - Wheat Swelling REVIEW OF SYSTEMS: The patient specifically denies unintentional weight loss, insomnia, hot flashes, night sweats, abnormal swelling in the arms or legs, chest pain, shortness of breath, cough, heartburn, urinary incontinence, vaginal dryness, decreased libido, unusual bony pains or severe headaches. PHYSICAL EXAM: Ht 167.6 cm (5' 6 ) Wt 57.6 kg (127 lb) BMI 20.50 kg/m? General: well-nourished, healthy, thin, white, female, alert and oriented x 3, calm Skin: warm, dry, skin color, texture, turgor normal Head/Eyes: normocephalic, atraumatic and anicteric Lymph nodes- The supraclavicular, axillary, and cervical regions are free of significant lymphadenopathy. Shotty lymph node noted in right axilla Right breast-The skin, nipple and areola appear normal. There is no skin dimpling with movement of the pectoralis. There is no nipple retraction. No discharge can be elicited. The parenchya is moderately fibrocystic. There is no dominant masses in the breast. The axillary tail is normal. There is no tenderness noted with palpation. Very faint indentation noted upper outer quadrant which she noted is area of concern. Area best seen in supine position Left breast- The skin, nipple, and areola appear normal. There is no skin dimpling with movement of the pectoralis. There is no nipple retraction. No discharge can be elicited. The parenchyma is moderately fibrocystic. At the 4 o'clock position 2 cmfn there is a area of prominent soft fibrocystic change. The axillary tail is normal. There is no tenderness noted with palpation. IMAGING: Bilateral diagnostic mammograms were performed today in the breast center and showed the tissue is predominately fatty. There is no sonographic abnormalities noted bilaterally Assessment IMPRESSION/PLAN: Mirian Corrales is a 63 year old year old female with bilateral fibrocystic change, an abnormal mammogram, a breast mass and benign skin changes There is no evidence of malignancy. The patient was reassured as to the benign nature of her clinical, mammographic, and sonographic findings. Her data were entered into the Tyrer-Cuzick model for Risk Assessment. Her 5 year projected risk of developing invasive breast cancer is 1.2% and her lifetime risk of breast cancer is estimated to be 4.9%. She does not meet ACS criteria for screening breast MRI, but will be followed annually in the Breast Center with annual digital mammography. Genetics referral made: Yes: Reason: her brother had pancreatic cancer at age 45, [place] breast cancer, [place] dx 42- and PGM had ovarian cancer Chemoprevention discussion: Will be deferred until genetics issues are settled. The patient is advised to exercise regularly, achieve/maintain ideal body weight, and to limit alcohol consumption to less than 7 drinks weekly for breast cancer risk reduction and overall health. The patient has an active breast problem and will be seen in follow up in the breast center. She will return in one year for bilateral digital mammogram and clinical evaluation. She will call me in the interim should she have any questions or concerns. My final recommendations will be communicated back to the requesting physician by way of shared medical record or letter via US mail. Total face to face time was 30 minutes with >50% spent on counseling the patient or coordinating her care. Jenise Norton APRN.[facility] Medical Breast Specialist August 24, 2019 CC: Normal [facility] DIGITAL DIAGNOSTIC W OR WO CAD BILATERALon 05-07-2019 [facility] DIGITAL DIAGNOSTIC W OR WO CAD BILATERAL EXAMINATION: BILATERAL DIGITAL DIAGNOSTIC MAMMOGRAM; TARGETED ULTRASOUND OF THE RIGHT BREAST; TARGETED ULTRASOUND OF THE LEFT BREAST, 05/05/2019 9:47 am TECHNIQUE: Views: Focal compression views of both breasts in the MLO and CC plane, supplemented by medial to lateral view. Images were obtained with tomosynthesis. COMPARISON: Screening mammogram dated April 10, 2019. HISTORY: ORDERING SYSTEM PROVIDED HISTORY: Abnormal mammogram Callback from screening for right upper-outer focal asymmetry and left outer asymmetry. FINDINGS: There are scattered areas of fibroglandular density. Right breast: Persistent upper outer focal asymmetry will further be assessed by ultrasound. No suspicious calcification or architectural distortion. Left breast persistent left outer asymmetry will further be assessed by ultrasound. Right breast ultrasound: No convincing suspicious sonographic abnormality. Questioned mildly hypoechoic area at 9 o'clock, 2.5 cm from nipple, evaluated real-time has the appearance of normal tissue with mild shadowing caused by Frederick's ligament and adjacent duct. Incidental finding of a suspected complicated cyst at 10 o'clock. Mild cortical thickening of an axillary node. Left breast ultrasound: Questioned 4 mm mixed echogenicity focus in the left breast at 4 o'clock, 2 cm from nipple is not convincingly reproduced in different planes of imaging. Mild cortical thickening of an axillary node. IMPRESSION: 1. No convincing mammographic or sonographic evidence of malignancy. 2. Questionable hypoechoic area in the right breast, 9 o'clock, 2.5 cm from nipple suspected to be artifact. Recommend short-term mammographic and ultrasound follow-up. 3. Suspected right breast 10 o'clock complicated cyst. Recommend short-term ultrasound follow-up. 4. Questionable 4 mm mixed echogenic focus in the left breast at 4 o'clock, 2 cm from nipple. Recommend short-term mammographic and sonographic follow-up. 5. Mild cortical thickening of the axillary lymph nodes bilaterally. This can be followed on subsequent exams to ensure stability/resolution. BIRADS: BIRADS - CATEGORY 3 Findings are probably benign. A short interval follow-up is recommended in 6 months. OVERALL ASSESSMENT - PROBABLY BENIGN. A letter of notification will be sent to the patient regarding the results. Interpreted by: Black Lane MD Signed by: Black Lane MD 05/07/19 Final result Normal [facility] 05-07-2019 1. No convincing mammographic or sonographic evidence of malignancy. 2. Questionable hypoechoic area in the right breast, 9 o'clock, 2.5 cm from nipple suspected to be artifact. Recommend short-term mammographic and ultrasound follow-up. 3. Suspected right breast 10 o'clock complicated cyst. Recommend short-term ultrasound follow-up. 4. Questionable 4 mm mixed echogenic focus in the left breast at 4 o'clock, 2 cm from nipple. Recommend short-term mammographic and sonographic follow-up. 5. Mild cortical thickening of the axillary lymph nodes bilaterally. This can be followed on subsequent exams to ensure stability/resolution. BIRADS: BIRADS - CATEGORY 3 Findings are probably benign. A short interval follow-up is recommended in 6 months. OVERALL ASSESSMENT - PROBABLY BENIGN. A letter of notification will be sent to the patient regarding the results. [facility]- [place], [place] EXAMINATION: BILATER AL DIGITAL DIAGNOSTIC MAMMOGRAM; TARGETED ULTRASOUND OF THE RIGHT BREAST; TARGETED ULTRASOUND OF THE LEFT BREAST, 05/05/2019 9:47 am TECHNIQUE: Views: Focal compression views of both breasts in the MLO and CC plane, supplemented by medial to lateral view. Images were obtained with tomosynthesis. COMPARISON: Screening mammogram dated April 10, 2019. HISTORY: ORDERING SYSTEM PROVIDED HISTORY: Abnormal mammogram Callback from screening for right upper-outer focal asymmetry and left outer asymmetry. FINDINGS: There are scattered areas of fibroglandular density. Right breast: Persistent upper outer focal asymmetry will further be assessed by ultrasound. No suspicious calcification or architectural distortion. Left breast persistent left outer asymmetry will further be assessed by ultrasound. Right breast ultrasound: No convincing suspicious sonographic abnormality. Questioned mildly hypoechoic area at 9 o'clock, 2.5 cm from nipple, evaluated real-time has the appearance of normal tissue with mild shadowing caused by Frederick's ligament and adjacent duct. Incidental finding of a suspected complicated cyst at 10 o'clock. Mild cortical thickening of an axillary node. Left breast ultrasound: Questioned 4 mm mixed echogenicity focus in the left breast at 4 o'clock, 2 cm from nipple is not convincingly reproduced in different planes of imaging. Mild cortical thickening of an axillary node. [facility] [place] [place] [facility], [facility] Incoming Radiant Results From [facility] - 05/07/2019 3:26 PM EDT EXAMINATION: BILATERAL DIGITAL DIAGNOSTIC MAMMOGRAM; TARGETED ULTRASOUND OF THE RIGHT BREAST; TARGETED ULTRASOUND OF THE LEFT BREAST, 05/05/2019 9:47 am TECHNIQUE: Views: Focal compression views of both breasts in the MLO and CC plane, supplemented by medial to lateral view. Images were obtained with tomosynthesis. COMPARISON: Screening mammogram dated April 10, 2019. HISTORY: ORDERING SYSTEM PROVIDED HISTORY: Abnormal mammogram Callback from screening for right upper-outer focal asymmetry and left outer asymmetry. FINDINGS: There are scattered areas of fibroglandular density. Right breast: Persistent upper outer focal asymmetry will further be assessed by ultrasound. No suspicious calcification or architectural distortion. Left breast persistent left outer asymmetry will further be assessed by ultrasound. Right breast ultrasound: No convincing suspicious sonographic abnormality. Questioned mildly hypoechoic area at 9 o'clock, 2.5 cm from nipple, evaluated real-time has the appearance of normal tissue with mild shadowing caused by Frederick's ligament and adjacent duct. Incidental finding of a suspected complicated cyst at 10 o'clock. Mild cortical thickening of an axillary node. Left breast ultrasound: Questioned 4 mm mixed echogenicity focus in the left breast at 4 o'clock, 2 cm from nipple is not convincingly reproduced in different planes of imaging. Mild cortical thickening of an axillary node. IMPRESSION: 1. No convincing mammographic or sonographic evidence of malignancy. 2. Questionable hypoechoic area in the right breast, 9 o'clock, 2.5 cm from nipple suspected to be artifact. Recommend short-term mammographic and ultrasound follow-up. 3. Suspected right breast 10 o'clock complicated cyst. Recommend short-term ultrasound follow-up. 4. Questionable 4 mm mixed echogenic focus in the left breast at 4 o'clock, 2 cm from nipple. Recommend short-term mammographic and sonographic follow-up. 5. Mild cortical thickening of the axillary lymph nodes bilaterally. This can be followed on subsequent exams to ensure stability/resolution. BIRADS: BIRADS - CATEGORY 3 Findings are probably benign. A short interval follow-up is recommended in 6 months. OVERALL ASSESSMENT - PROBABLY BENIGN. A letter of notification will be sent to the patient regarding the results. [facility] [place] [facility] BREAST COMPLETE LEFTon US BREAST COMPLETE LEFT EXAMINATION: BILATERAL DIGITAL DIAGNOSTIC MAMMOGRAM; TARGETED ULTRASOUND OF THE RIGHT BREAST; TARGETED ULTRASOUND OF THE LEFT BREAST, 05/05/2019 9:47 am TECHNIQUE: Views: Focal compression views of both breasts in the MLO and CC plane, supplemented by medial to lateral view. Images were obtained with tomosynthesis. COMPARISON: Screening mammogram dated April 10, 2019. HISTORY: ORDERING SYSTEM PROVIDED HISTORY: Abnormal mammogram Callback from screening for right upper-outer focal asymmetry and left outer asymmetry. FINDINGS: There are scattered areas of fibroglandular density. Right breast: Persistent upper outer focal asymmetry will further be assessed by ultrasound. No suspicious calcification or architectural distortion. Left breast persistent left outer asymmetry will further be assessed by ultrasound. Right breast ultrasound: No convincing suspicious sonographic abnormality. Questioned mildly hypoechoic area at 9 o'clock, 2.5 cm from nipple, evaluated real-time has the appearance of normal tissue with mild shadowing caused by Frederick's ligament and adjacent duct. Incidental finding of a suspected complicated cyst at 10 o'clock. Mild cortical thickening of an axillary node. Left breast ultrasound: Questioned 4 mm mixed echogenicity focus in the left breast at 4 o'clock, 2 cm from nipple is not convincingly reproduced in different planes of imaging. Mild cortical thickening of an axillary node. IMPRESSION: 1. No convincing mammographic or sonographic evidence of malignancy. 2. Questionable hypoechoic area in the right breast, 9 o'clock, 2.5 cm from nipple suspected to be artifact. Recommend short-term mammographic and ultrasound follow-up. 3. Suspected right breast 10 o'clock complicated cyst. Recommend short-term ultrasound follow-up. 4. Questionable 4 mm mixed echogenic focus in the left breast at 4 o'clock, 2 cm from nipple. Recommend short-term mammographic and sonographic follow-up. 5. Mild cortical thickening of the axillary lymph nodes bilaterally. This can be followed on subsequent exams to ensure stability/resolution. BIRADS: BIRADS - CATEGORY 3 Findings are probably benign. A short interval follow-up is recommended in 6 months. OVERALL ASSESSMENT - PROBABLY BENIGN. A letter of notification will be sent to the patient regarding the results. Interpreted by: Black Lane MD Signed by: Black Lane MD 05/07/19 Final result Normal [facility] US BREAST COMPLETE RIGHTon 0 05-07-2019 US BREAST COMPLETE RIGHT EXAMINATION: BILATERAL DIGITAL DIAGNOSTIC MAMMOGRAM; TARGETED ULTRASOUND OF THE RIGHT BREAST; TARGETED ULTRASOUND OF THE LEFT BREAST, 05/05/2019 9:47 am TECHNIQUE: Views: Focal compression views of both breasts in the MLO and CC plane, supplemented by medial to lateral view. Images were obtained with tomosynthesis. COMPARISON: Screening mammogram dated April 10, 2019. HISTORY: ORDERING SYSTEM PROVIDED HISTORY: Abnormal mammogram Callback from screening for right upper-outer focal asymmetry and left outer asymmetry. FINDINGS: There are scattered areas of fibroglandular density. Right breast: Persistent upper outer focal asymmetry will further be assessed by ultrasound. No suspicious calcification or architectural distortion. Left breast persistent left outer asymmetry will further be assessed by ultrasound. Right breast ultrasound: No convincing suspicious sonographic abnormality. Questioned mildly hypoechoic area at 9 o'clock, 2.5 cm from nipple, evaluated real-time has the appearance of normal tissue with mild shadowing caused by Frederick's ligament and adjacent duct. Incidental finding of a suspected complicated cyst at 10 o'clock. Mild cortical thickening of an axillary node. Left breast ultrasound: Questioned 4 mm mixed echogenicity focus in the left breast at 4 o'clock, 2 cm from nipple is not convincingly reproduced in different planes of imaging. Mild cortical thickening of an axillary node. IMPRESSION: 1. No convincing mammographic or sonographic evidence of malignancy. 2. Questionable hypoechoic area in the right breast, 9 o'clock, 2.5 cm from nipple suspected to be artifact. Recommend short-term mammographic and ultrasound follow-up. 3. Suspected right breast 10 o'clock complicated cyst. Recommend short-term ultrasound follow-up. 4. Questionable 4 mm mixed echogenic focus in the left breast at 4 o'clock, 2 cm from nipple. Recommend short-term mammographic and sonographic follow-up. 5. Mild cortical thickening of the axillary lymph nodes bilaterally. This can be followed on subsequent exams to ensure stability/resolution. BIRADS: BIRADS - CATEGORY 3 Findings are probably benign. A short interval follow-up is recommended in 6 months. OVERALL ASSESSMENT - PROBABLY BENIGN. A letter of notification will be sent to the patient regarding the results. Interpreted by: Black Lane MD Signed by: Black Lane MD 05/07/19 Final result Normal [facility] DIGITAL DIAGNOSTIC W OR WO CAD BILATERAL IMPORTon 05-05-2019 [facility] DIGITAL DIAGNOSTIC W OR WO CAD BILATERAL IMPORT Images were obtained outside of [facility] [id number] Normal [facility] US-US BREAST COMPLETE RIGHT IMPORTon 05-05-2019 US-US BREAST COMPLETE RIGHT IMPORT Images were obtained outside of [facility] [id number] Normal [facility] US-US BREASt COMPLETE LEFT I MPORTon 05-05-2019 US-US BREASt COMPLETE LEFT IMPORT Images were obtained outside of [facility] [id number] Normal [facility] OREN DIGITAL SCREEN W OR WO C AD BILATERALon 04-10-2019 [facility] DIGITAL SCREEN W OR WO CAD BILATERAL EXAMINATION: BILATERAL DIGITAL SCREENING MAMMOGRAM, 04/10/2019 TECHNIQUE: CC and MLO views of the left and right breasts were obtained. Computer aided detection was utilized in the interpretation of this exam. 3D tomosynthesis images were obtained. COMPARISON: None. Baseline study. HISTORY: Screening. Positive family history of breast cancer; maternal aunt. Negative history of hormonal replacement therapy. No prior breast interventions. FINDINGS: The breasts are heterogeneously dense which can limit assessment. A cluster of focal asymmetries are present upper outer right breast anterior depth with additional mammographic workup advised. Full workup may require ultrasonography. A focal asymmetry is present in the outer central left breast anterior depth with additional mammographic workup advised. Full workup may require ultrasonography. No skin thickening, nipple contour changes, or malignant type microcalcifications are noted. IMPRESSION: 1. Area of focal asymmetry upper outer right breast anterior depth with additional mammographic workup advised. Full workup may require ultrasonography. 2. Focal asymmetry outer central left breast anterior depth with additional mammographic workup advised. Full workup may require ultrasonography. BREAST DENSITY SUMMARY C: The breasts are heterogeneously dense which may obscure small masses. BI-RADS 0 BIRADS: BIRADS - CATEGORY 0 Additional imaging is recommended at this time. OVERALL ASSESSMENT - INCOMPLETE:NEED ADDITIONAL IMAGING EVALUATION. Interpreted by: Susy Peterson MD Signed by: Susy Peterson MD 04/10/19 Final result Normal [facility] [employer] DIGITAL SCREEN W OR W O CAD BILATERAL IMPORTon 04-10-2019 [employer] DIGITAL SCREEN W OR WO CAD BILATERAL IMPORT Images were obtained outside of [facility] [id number] Normal [facility] Surgical Pathologyon 019 Surgical Pathology (NOTE) [id number] CONSULTING PATHOLOGISTS [facility] ANATOMIC PATHOLOGY [address] [place] [id number] SURGICAL PATHOLOGY CONSULTATION Patient Name: MIRIAN CORRALES [facility] Rec: [id number] Path Number: [id number] Collected: 03/15/2019 Received: 03/16/2019 Reported: 03/17/2019 09:30 -- Diagnosis -- POLYP, COLORECTAL (SIGMOID): - BENIGN ADENOMATOUS POLYP (TUBULAR ADENOMA). Justo Walters M.D. Electronically Signed Out [facility]/03/17/2019 Clinical Information Pre-op Diagnosis: COLON CANCER SCREENING Operative Findings: SIGMOID COLON POLYP Operation Performed: COLONOSCOPY, POLYPECTOMY SNARE/COLD BIOPSY Source of Specimen 1: SIGMOID COLON POLYP Gross Description MIRIAN CORRALES SIGMOID COLON POLYP One jimenez-white tissue fragment, 1.8 x 0.6 x 0.1 cm. Entirely 1cs. rh tm Microscopic Description Microscopic examination performed. Normal [facility] Comment on above: Performed By: #### P PPVS #### [employer] [address] [place] [id number] [employer] Supervisor: Darryl Walters MD Vital Signs Date Time Vital Sign Value Performing Clinician Fidel pelaez 09-30-2022 11:16-0500 Diastolic blood pressure 70 mm[Hg] DO Efren Stanley Work Phone: [facility] [place] [facility] 09-30-2022 11:16-0500 Heart rate 60 /min DO Efren Stanley Work Phone: [facility] [place] [facility] 09-30-2022 11:16-0500 Respiratory rate 20 /min DO Efren Stanley Work Phone: [facility] [place] [facility] 09-30-2022 11:16-0500 SaO2% (BldA) [Mass fraction] 98 % DO Efren Stanley Work Phone: [facility] [place] [facility] 09-30-2022 11:16-0500 Systolic blood pressure 117 mm[Hg] DO Efren Stanley Work Phone: [facility] [place] [facility] 10-29-2021 13:03-0500 Body temperature 98 [degF] DO Efren Stanley Work Phone: [facility] [place] [facility] Encounters Encounter Date Encounter Type Care Provider Facility Start: 11-30-2023 End: 11-30-2023 ambulatory Lucas Lan Facility:[facility] [place] [facility] Start: 12-08-2022 End: 12-09-[address] PATRICK VENTURA Facility: Start: 11-20-2022 End: 11-20-2022 ambulatory DO Efren Stanley Work Phone: [facility] Work Phone: Start: 11-20-2022 End: 11-20-2022 Patient encounter procedure DO Efren Stanley Work Phone: [facility] Work Phone: Start: 09-30-2022 Registered Recurring DO Efren Stanley Work Phone: [facility] Work Phone: Start: 09-18-2022 End: 09-18-2022 Patient encounter procedure DO Efren Millermanjula Work Phone: [facility] [place] Work Phone: Start: 12-07-2022 Phys/qhp telephone evaluation 21-30 min No PCP None NS-Ovrztzuvtixkydyy-Rl lwell 6 [facility] Work Phone: Start: 08-26-2022 ambulatory Henrique Vail Facility:U Start: 08-12-2022 End: 08-12-2022 ambulatory DO Efren Stanley Work Phone: [facility] Work Phone: Start: 08-12-2022 End: 08-12-2022 Patient encounter procedure DO Efren Stanley Work Phone: [facility] [place] Start: 03-24-2022 End: 03-25-[address] LUCAS LAN . Facility: Start: 03-16-2022 End: 03-16-[address] LUCAS LAN . Facility: Start: 05-05-2019 End: 05-08-2019 Patient encounter procedure EBER J [facility] Start: 05-05-2019 End: 05-07-2019 Subsequent hospital visit by physician [facility] Ultrasound Room [facility] Ultrasound Comment on above: Abnormal mammogram Start: 04-10-2019 End: 04-13-2019 Patient encounter procedure [place] [facility] Start: 03-15-2019 End: 03-15-2019 Patient encounter procedure NED Barclay DEVEN [facility] Procedures Date Procedure Procedure Detail Performing Clinician Start: 11-20-2022 Screening mammography of bilateral breasts DO Efren Stanley Work Phone: Start: 08-12-2022 Magnetic resonance cholangiopancreatography DO Efren Stanley Work Phone: Start: 05-05-2019 Us breast uni real time with image complete EBER SHER Start: 05-05-2019 Diagnostic mammography computer-aided detcj bi EBER SHER Start: 05-05-2019 Us breast uni real time with image complete Eber Sher Work Phone: Start: 04-10-2019 Screening mammography bi 2-view breast inc cad EBER SHER Start: 03-15-2019 DIET GENERAL EBER SHER Start: 03-15-2019 MISCELLANEOUS NURSING CARE ORDER (SPECIFY) EBER SHER Start: 03-15-2019 REMOVE IV EBER SHER Start: 03-15-2019 VITAL SIGNS EBER SHER Start: 03-15-2019 DISCHARGE PATIENT EBER SHER Start: 03-15-2019 Level iv surg pathology gross&microscopic exam EBER SHER Start: 03-15-2019 INSERT PERIPHERAL IV EBER SHER Plan of Treatment Date Care Activity Detail Author Start: 03-15-2024 Colon cancer screen colonoscopy Colon cancer screen colonoscopy [place], [place] Start: 05-05-2021 Breast cancer screen Breast cancer s creen [place], [place] Start: 05-21-2019 Influenza vaccination Flu vaccine (# 1) [place], [place] Start: 2005 Shingles Vaccine (1 of 2) Shingles Vaccine (1 of 2) [place], [place] Start: 1995 Lipid screen Lipid screen [place], [place] Start: 1976 Cervical cancer screen Cervical canc er screen [place], [place] Start: 1974 DTaP/Tdap/Td vaccine (1 - Tdap) DTaP/Tdap/Td vaccine (1 - Tdap) [place], [place] Start: 1970 HIV screen HIV screen [place], [place] Start: 1955 Hepatitis C screen Hepatitis C scree n [place], [place] Payers Date Payer Category Payer Self-pay [id number] 2014 Unknown [id number] 2014 Unknown [employer] xxxxxxxxx 2014-Present [phone] [address] [place] [address] xxxxxxxxx [id number] 1959 Medicare [id number] 1959 Private Health Insurance CLI [id number] 1955 Unknown [id number]. [id number] 1955 Unknown [id number] [id number]. 2.173 1955 Unknown [id number] [id number]. 2.173 1955 Unknown [id number] [id number]. 2.173 1955 Unknown [id number] [id number]. 2.356 1955 Unknown [id number] [id number]. 2.593 1955 Unknown [id number] 2.16.840.1.273822.3.579. 2.593 1955 Unknown [id number] [id number]. 2.593 Unknown Unknown [id number]. 2.531 Social History Date Type Detail Facility Start: 03-20-2019 [place] Start: 03-20-2019 Alcohol intake Yes [place], [place] Start: 03-15-2019 Alcohol Comment social [place], [place] Sex Assigned At Not on file [place], [place] Start: 1955 Sex Assigned At Female F [facility] Evaluation note Note Date & Type Note Facility Evaluation note No assessment information availa [facility] Work Phone: History of Present illness Narrative Note Date & Type Note Facility History of Present illness Narrative One brother age 45 and another at age 51 had pancreatic cancer; had genetic testing. Father had BRIP1 mutation. Paternal grandmother (70's), paternal aunt (60's) and endometrial cancer and daughter (41) had breast cancer; maternal aunt had breast cancer.She herselt healthy and getting screened. Is on gluten free dairy free diet and also on probiotcis. No surgery before. Screenign colonoscopy a few years ago. Non-smoker. 5'6 weighs 125 lbs. Exercise daily. 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 Advance Directives and Living Will Power of Officer Lieutenant Advance Directive Response Recorded Date/ Time Advance Directives No October 27, 2021 3:12pm Reason for Referral Status Reason Specialty Diagnoses / Procedures Referred By Contact Referred To Contact Pending Review Radiology Diagnoses Abnormal mammogram Procedures US BREAST COMPLETE LEFT Eber Sher MD [address] [place] [address] Status Reason Specialty Diagnoses / Procedures Referre d By Contact Referred To Contact Open Radiology Diagnoses Abnormal mammogram Procedures US BREAST COMPLETE RIGHT Eber Sher MD [address] [place] [address] Assessments Diagnosis Abnormal mammogram Abnormal mammogram, unspecified Chief Complaint and Reason for Visit Chief Complaint z80.0 Chief Complaint r93.89 Family Hx of Cancer Screening Chief Complaint * A telephone visit (audio only) between the patient (at the originating site) and the provider (at the distant site) was utilized to provide this telehealth service. * Fam Hx Panc Ca Additional Source Comments INFORMATION SOURCE (unrecogn ized section and content) DATE CREATED AUTHOR 05/08/2019 Meredith antony DATE CREATED AUTHOR AUTHOR'S ORGANIZ ATION 08/25/2019 [facility] DATE CREATED AUTHOR AUTHOR'S ORGANIZ ATION 08/26/2022 [facility] DATE CREATED AUTHOR AUTHOR'S ORGANIZ ATION 08/27/2022 [employer] DATE CREATED AUTHOR AUTHOR'S ORGANIZ ATION 12/24/2022 [facility] DATE CREATED AUTHOR AUTHOR'S ORGANIZ ATION 12/03/2023 [facility] Reason for Visit (unrecogniz ed section and content) Status Reason Specialty Diagnoses / Procedures Referre d By Contact Referred To Contact [facility] Diagnoses Abnormal mammogram Procedures US BREAST COMPLETE RIGHT Eber Sher MD [address] [place] [address] Care Teams (unrecognized sec tion and content) Team Status: Inactive Member Role Status Dates Efren Stanley DO Primary Care Provider, Attending P sharmin Active Team Status: Active Member Role Status Dates Efren Stanley DO Primary Care Provider Active Team Status: Inactive Member Role Status Dates Efren Stanley DO Primary Care Provider Active Henrique Vail MD Attending Provider Active Team Status: Inactive Member Role Status Dates Efren Stanley DO Primary Care Provider, Referring P sharmin Active Referral Self Attending Provider Active Team Status: Active Member Role Status Dates Roz Aguilera MD Attending Provider Active Efren Stanley DO Primary Care Provider Active Goals (unrecognized section and content) Goals may be documented in a n alternate sectionGoals may be documented in an alternate sectionGoals may be documented in an alternate section FOR RECORDS PERTAINING TO PATIENTS WHO ARE OR HAVE BEEN ENROLLED IN A CHEMICAL DEPENDENCY/SUBSTANCEABUSE PROGRAM, SOME INFORMATION MAY BE OMITTED. This clinical summary was aggregated from multiple sources. Caution should be exercised in using it in the provision of clinical care. This summary normalizes information from multiple sources, and as a consequence, information in this document may materially change the coding, format and clinical context of patient data. In addition, data may be omitted in some cases. CLINICAL DECISIONS SHOULD BE BASED ON THE PRIMARY CLINICAL RECORDS. [facility] [employer] provides no warranty or guarantee of the accuracy or completeness of information in this document.
[2024-01-02 13:03] LABS: Influenza Virus A Antigen Negative; Influenza Virus B Antigen Negative; Internal Control Within Normal Limits; SARS-CoV-2 Ag NEGATIVE (NEGATIVE); Strep A Antigen Screen Negative
--- NOTE | 2024-01-02 13:20 | ED_ITS ---
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 the kids, the patient denies any difficulty swallowing any difficulty speaking any difficulty breathing at the moment but she noted that the tip of her uvula looked discolored, she noted that over the last few days, no fever no chills and her symptoms generally were getting better Related Data Previous Rx's ?Medication ?Instructions ?Recorded amoxicillin 875 mg-potassium 1 tab PO Q12H #20 tabs 01/02/24 clavulanate 125 mg tablet phenol 1.4 % mucosal aerosol spray 4 spray mucous membrane .q8 sore 01/02/24 (Chloraseptic Throat [place]) throat #20 mL Allergies Allergy/AdvReac Type Severity Reaction Status Date / Time No Known Drug Allergies Allergy Verified 01/02/24 12:13 Review of Systems ROS Status of ROS 10 or more systems reviewed and unremark able except as noted in history and below Exam Narrative Exam Narrative: Nurses notes and vital signs reviewed and patient is not hypoxic. General: Well-appearing and in no apparent distress. Skin: Warm, dry, no pallor noted. No rash. Head: Normocephalic, atraumatic. Neck: Supple, non-tender. Eye: Pupils are equal, round and EOMI. No scleral icterus. Ears, Nose, Mouth, and Throat: TM are clear, no nasal mucosal hypertrophy. Oral mucosa is moist, no posterior oropharynx erythema, the uvula is in the midline only the tip of the uvula is shows as a very small spot of almost half cc if not less of whitish discoloration and exudate and there is no swelling in the rest of the uvula there is no compromise of the airway the patient have no difficulty swallowing there is no masses or any other swelling in the tongue or the rest of the airway or the mouth Cardiovascular: Regular Rate and Rhythm without murmur, gallop or rub. Respiratory: No accessory muscle use or respiratory distress. Lungs are clear to auscultation, no wheezing, rales or rhonchi Chest Wall: no tenderness Back: No midline thoracic or lumbar vertebral tenderness. No CVA tenderness Musculoskeletal: normal ROM, no calf or popliteal tenderness, no lower extremity edema/swelling GI: Abdomen is soft, non-distended. Normal bowel sounds. No masses appreciated. No tenderness to palpation. No rebound, guarding, or rigidity noted. Neurological: A&O x4. No cranial nerve dysfunction observed. No truncal ataxia. Moves all extremities. Sensation intact. Psychiatric: Cooperative and interactive. Normal mood and affect. Constitutional Vital Signs, click to edit/add: Last Vital Signs Temp 98.3 F 01/02/24 12:14 Pulse 90 01/02/24 12:14 Resp 14 01/02/24 12:14 BP 140/75 01/02/24 12:14 Pulse Ox 99 01/02/24 12:14 O2 Del Method Room Air 01/02/24 12:14 Course Vital Signs Vital signs: Vital Signs Temperature 98.3 F 01/02/24 12:14 Pulse Rate 90 01/02/24 12:14 Respiratory Rate 14 01/02/24 12:14 Blood Pressure 140/75 01/02/24 12:14 Pulse Oximetry 99 01/02/24 12:14 Oxygen Delivery Method Room Air 01/02/24 12:14 Temperature 98.3 F 01/02/24 12:14 Pulse Rate 90 01/02/24 12:14 Respiratory Rate 14 01/02/24 12:14 Blood Pressure 140/75 01/02/24 12:14 Pulse Oximetry 99 01/02/24 12:14 Oxygen Delivery Method Room Air 01/02/24 12:14 MDM - URI/Sore Throat MDM Narrative Medical decision making narrative: The tip of the uvula seems inflamed possibly infected although the patient does not have any compromise of the airway she was instructed about starting her on Augmentin in addition to Chloraseptic spray and follow-up with the ENT as outpatient. The patient was instructed about coming back in case of any increasing in the swelling any fever chills or any other symptoms The patient is to follow up with primary care physician in next 2-3 days or to return to the emergency department should any of the signs or symptoms worsen or new symptoms develop. The patient agrees with the following Diagnosis and Treatment plan and the patient will be discharged home. Lab Data Labs: Lab Results 01/02/24 Range/Units 12:48 Influenza Type A Ag Negative Influenza Type B Ag Negative SARS-CoV-2 Ag (CV2AG) Negative (NEGATIVE) Streptococcus Screen Negative Discharge Plan Discharge Stand Alone Forms: Portal Instructions Chief Complaint: Upper Respiratory Infection Clinical Impression: Uvular swelling Patient Disposition: Home, Self-Care Time of Disposition Decision: 13:18 Condition: Good Prescriptions / Home Meds: New amoxicillin-pot clavulanate 875-125 mg tablet 1 tab PO Q12H Qty: 20 0RF Chloraseptic Throat [place] 1.4 % aerosol,spray 4 spray mucous membrane .q8 Qty: 20 0RF Print Language: [place] Instructions: Uvulitis (ED) Referrals: Henny Covarrubias MD [Physician] - As soon as possible CONNER BURNETT [Primary Care Provider] - 1 week
[2024-01-02] MEDS: AMOXICILLIN/POTASSIUM CLAV 1 TAB TABLET PO (13:29)
== END 2024-01-02 13:30 | disposition home or self-care (01) ==
PROVIDERS: Emergency Provider Emergency Medicine; PCP Internal Medicine
DX: R60.9 Edema, unspecified (principal); Z20.822 Contact with and (suspected) exposure to COVID-19
CPT/HCPCS: 87070; 87804; 87811; 87880; 99283

== ENCOUNTER 2024-03-11 13:28 | Emergency (ER) | payer MEDICARE, OTHER, SELFPAY ==
[2024-03-11 13:33] VITALS: BP 145/80; PULSE 69; TEMP 36.4; O2SAT 99; BMI 19.4
--- OUTSIDE RECORDS SUMMARY | 2024-03-11 13:35 | XMS_ITS ---
Patient Summarization (C-CDA 2.1 CCD) Created on: March 11, 2024 Mirian Corrales : 1955 Sex: Female Author Organization Sample organization Care Team Providers Care Wall Worker Name Role Phone JELANI EBER J Referring Unavailable SHER, EBER J Primary Care Unavailable RADIOLOGIST, MTH GEN Attending Unavailable SHER, EBER J Referring Unavailable SHER, EBER J Primary Care Unavailable NED CARVALHO Admitting Unavailable NED CARVALHO Attending Unavailable SHER, EBER J Primary Care Unavailable SHER, EBER J Referring Unavailable SHER, EBER J Primary Care Unavailable Sher, [place] J Primary Care Provider [phone] DO Efren Stanley Primary Care Provider [phone] DO Efren Stanley Attending Provider [phone] None, No PCP Unavailable Unavailable Henrique Vail Referring Unavailable Henrique Vail Attending Unavailable DO Efren Stanley Primary Care Provider MD Henrique Vail Attending Provider MD Roz Aguilera Attending Provider DO Efren Stanley Referring Provider Self, Referral Attending Provider Unavailable LORENZO, DR PATRICK Yeh Attending Unavailable LORENZO, DR PATRICK Yeh Consulting Unavailable LORENZO, DR PATRICK Yeh Admitting Unavailable SHWETHA ., DR ZAVALA Attending Unavailable SHWETHA ., DR ZAVALA Consulting Unavailable SHWETHA ., DR ZAVALA Admitting Unavailable SHWETHA ., DR ZAVALA Admitting Unavailable SHWETHA ., DR ZAVALA Attending Unavailable SHWETHA ., DR ZAVALA Consulting Unavailable ZIEBER, DR NED Lawton Consulting Unavailable Lucas Lan Referring Unavailable Self, Referral Admitting Unavailable Self, Referral Attending Unavailable Efren Stanley Primary Care Unavailable Encounters Encounter Date Encounter Type Care Provider Facility Start: 11-30-2023 End: 03-12-2024 ambulatory Lucas Lan Facility:[facility] Start: 12-08-2022 End: 12-09-[address] PATRICK VENTURA Facility:[facility]1 Start: 11-20-2022 End: 11-20-2022 ambulatory DO Efren Stanley Work Phone: [facility] Work Phone: Start: 11-20-2022 End: 11-20-2022 Patient encounter procedure DO Efren Stanley Work Phone: [facility] Work Phone: Start: 09-30-2022 Registered Recurring DO Efren Stanley Work Phone: [facility] Work Phone: Start: 09-18-2022 End: 09-18-2022 Patient encounter procedure DO Efren Stanley Work Phone: [facility] [place] Work Phone: Start: 08-26-2022 Phys/qhp telephone evaluation 21-30 min No PCP None ZX-Eftrzicyjdripgkl-Ox lwell 6 [facility] Work Phone: Start: 08-26-2022 ambulatory Henrique Genna Facility:U Start: 08-12-2022 End: 08-12-2022 ambulatory DO Efren Stanley Work Phone: [facility] Work Phone: Start: 08-12-2022 End: 08-12-2022 Patient encounter procedure DO Efren Stanley Work Phone: [facility] [place] Start: 03-24-2022 End: 03-25-[address] LUCAS LAN . Facility:[facility] Start: 03-16-2022 End: 03-16-[address] LUCAS LAN . Facility:[facility] Start: 05-05-2019 End: 05-08-2019 Patient encounter procedure EBERPOORNIMA SHER [facility] Start: 05-05-2019 End: 05-07-2019 Subsequent hospital visit by physician [facility] Ultrasound Room MTH Ultrasound Comment on above: Abnormal mammogram Start: 04-10-2019 End: 04-13-2019 Patient encounter procedure EBER SHER [facility] Start: 03-15-2019 End: 03-15-2019 Patient encounter procedure NED CARVALHO [facility] Payers Date Payer Category Payer Self-pay [id number] 2014 Unknown [id number] 2014 Unknown [employer] xxxxxxxxx 2014-Present [phone] [address] [place] [address] xxxxxxxxx [id number] 1959 Medicare [id number] 1959 Private Health Insurance CLI [id number] 1955 Unknown [id number]. [id number] 1955 Unknown [id number]. 2.173 1955 Unknown [id number] [id number]. 2.173 1955 Unknown [id number] [id number]. 2.173 1955 Unknown [id number] [id number]. 2.356 1955 Unknown [id number] [id number]. 2.593 1955 Unknown [id number] [id number]. 2.593 1955 Unknown [id number] [id number]. 2.593 Unknown Unknown [id number]. 2.531 Plan of Treatment Date Care Activity Detail Author Start: 03-15-2024 Colon cancer screen colonoscopy Colon cancer screen colonoscopy [place], [place] Start: 05-05-2021 Breast cancer screen Breast cancer s creen [place], [place] Start: 05-21-2019 Influenza vaccination Flu vaccine (# 1) [place], [place] Start: 2005 Shingles Vaccine (1 of 2) Shingles Vaccine (1 of 2) [place], [place] Start: 1995 Lipid screen Lipid screen [place], [place] Start: 1976 Cervical cancer screen Cervical canc er screen [place], [place] Start: 1974 DTaP/Tdap/Td vaccine (1 - Tdap) DTaP/Tdap/Td vaccine (1 - Tdap) [place], [place] Start: 1970 HIV screen HIV screen [place], [place] Start: 1955 Hepatitis C screen Hepatitis C scree n [place], [place] Problems Active Problems Problem Classification Problem Date [...] cancer screening] Onset: 03-02-2019 Resolved: 04-11-2019 04-11-2019 Procedures Date Procedure Procedure Detail Performing Clinician Start: 11-20-2022 Screening mammography of bilateral breasts DO Efren Stanley Work Phone: Start: 08-12-2022 Magnetic resonance cholangiopancreatography DO Efren Stanley Work Phone: Start: 05-05-2019 Us breast uni real time with image complete EBER SHER Start: 05-05-2019 Diagnostic mammography computer-aided detcj bi EBER SHER Start: 05-05-2019 Us breast uni real time with image complete Eber J Sher Work Phone: Start: 04-10-2019 Screening mammography [...] Start: 03-15-2019 INSERT PERIPHERAL IV EBER SHER Results Test Name Value Interpretation Reference Range Facility MM screening mammo BI w/CADo n 11-30-2023 MM screening mammo BI w/CAD [place] [address] Mammography Report Signed Patient: Mirian Corrales MR#: [id number] 67 : 1955 Acct:[id number] Age/Sex: 68 / F ADM Date: 11/30/23 Loc: [place] Room: Type: [facility] Attending Dr: Referral Self Copies to: Lucas Stanley DO SELF,REFERRAL Ordering Provider: SELF,REFERRAL Date of Service: [...] mammogram. Impression dictated by: Toribio Michael Jr., D.O.11/30/2023 3:26 PM Dictation Location: [facility] Transcribed By: JULIOCESAR 11/30/23 1526 Dictated By: Toribio Michael Jr, DO 11/30/23 1525 Signed By: 11/30/23 1526 Normal [facility] Albumin [Mass/volume] in Ser um or PlasmaOrdered By: Henrique Vail on 09-18-2022 Albumin [Mass/Vol] 4.0 g/dL 3.2-5.5 [facility] Alkaline phosphatase [Enzyma tic activity/volume] in Serum or PlasmaOrdered By: Henrique Vail on 09-18-2022 ALP [Catalytic activity/Vol] 44 U/L 32-92 [facility] Aspartate aminotransferase [ Enzymatic activity/volume] in Serum or PlasmaOrdered By: Henrique Vail on 09-18-2022 AST [Catalytic activity/Vol] 23 U/L 10-42 [facility] Bilirubin.direct [Mass/volum e] in Serum or PlasmaOrdered By: Henrique Vail on 09-18-2022 Bilirubin.direct [Mass/Vol] mg/dL 0.0-0.4 [facility] Bilirubin.total [Mass/volume ] in Serum or PlasmaOrdered By: Henrique Vail on 09-18-2022 Bilirubin [Mass/Vol] 0.4 mg/dL 0.3-1.[address] [facility] Globulin Calc (S) [Mass/Vol] Ordered By: Henrique Vail on 09-18-2022 Globulin (S) [Mass/Vol] 2.7 g/dL [facility] Protein [Mass/volume] in Ser um or PlasmaOrdered By: Henrique Vail on 09-18-2022 Protein [Mass/Vol] 6.7 g/dL 6.1-7.9 [facility] Serum or plasma alanine steve otransferase measurement without P-5'-P (enzymatic activiOrdered By: Henrique Vail on 09-18-2022 ALT No additional P-5'-P [Catalytic activity/Vol] 23 U/L 10-60 [facility] Serum or plasma albumin/glob ulin mass ratioOrdered By: Henrique Vail on 09-18-2022 Albumin/Globulin [Mass ratio] 1.5 {ratio} [facility] Serum or plasma non-glucuron idated bilirubin measurement (mass/volume)Ordered By: Henrique Vail on 09-18-2022 Bilirubin.indirect [Mass/Vol] TNP [facility] Comment on above: Test not performed Initial Visit (Gastroenterol ogy)on 08-26-2022 Initial Visit (Gastroenterology) Diagnoses/Problems Assessed Abnormal radiographic examination (793.99) (R93.89) Orders Abnormal radiographic examination Hepatic Function Panel; Status:Active; Requested for:[id number]; Perform:Lab Services - Lab To Draw (Blood Test); Due:24Nov2022;Ordered; For:Abnormal radiographic examination; Ordered By:Henrique Vail; Provider [...] : DR LUCAS LAN . Admission #: [id number] Family : Order #: [id number] CLICK HERE TO VIEW EXAM RADIOLOGY REPORT [...] breast cancer at age 35. LOCATION: [facility] BREAST COMPOSITION: Heterogeneously dense,which may obscure small [...] M.D. on 03/24/2022 at 14:[address] [facility] US BREAST DICK LIMITEDon 07-0 US BREAST DICK LIMITED Patient: MIRIAN CORRALES Exam Date: 03/24/2022 : 1955 Gender:F Ordering : DR LUCAS LAN . Admission #: [id number] Family : Order #: [id number] CLICK HERE TO VIEW EXAM RADIOLOGY REPORT [...] breast cancer at age 35. LOCATION: [facility] BREAST COMPOSITION: Heterogeneously dense,which may obscure small [...] Paulino M.D. on 03/24/2022 at 14:41 Normal [facility] XR DEXA BONE DENSITYon 03-24 XR DEXA [...] by: NED PAULINO Date: 2022-03-24 17:39 Normal [facility] PAP ACOG PANEL 2: 30 to 65on 03-19-2022 . . Normal [facility] Comment on above: Performed By: #### [id number] #### [facility] [address] [address] [address] Lilo Warren Age Gdln ACOG Testing Comment Normal [facility] Comment on above: Result Comment: <21 or >65 or no age provided Performed By: #### [id number] #### [facility] [address] [address] [address] Lilo Warren DIAGNOSIS: Comment Normal [facility] Comment on above: Result Comment: NEGA TIVE FOR INTRAEPITHELIAL LESION OR MALIGNANCY. CELLULAR CHANGES ASSOCIATED WITH ATROPHY ARE PRESENT. Performed By: #### [id number] #### [facility] [address] [address] [address] Lilo Warren Methodology: Comment Normal [facility] Comment on above: Result Comment: This liquid based ThinPrep(R) pap test was screened with the use of an image guided system. Performed By: #### [id number] #### [facility] [address] [place] [address] Dr. Lilo Warren Note: Comment [facility] Comment on above: Result Comment: The Pap smear is a screening test designed to aid in the detection of premalignant and malignant conditions of the uterine cervix. It is not a diagnostic procedure and should not be used as the sole means of detecting cervical cancer. Both false-positive and false-negative reports do occur. . Performed By: #### 4 [id number] #### [facility] [address] [address] [address] Lilo Warren Performed by: Comment Normal [facility] Comment on above: Result Comment: Yg Smith, Engineer Systems (ASCP) Performed By: #### 4 [id number] #### [facility] [address] [place] [address] Dr. Lilo Warren Specimen adequacy: Comment Normal [facility] Comment on above: Result Comment: Sati sfactory for evaluation. Endocervical and/or squamous metaplastic cells (endocervical component) are present. Performed By: #### 4 [id number] #### [facility] [address] [place] [address] Dr. Lilo Viveros 08-24-2019 CNOV Office Visit (BRCRBD ) MIRIAN CORRALES ([id number]) 1955 F Date Time Provider Department 08/24/19 1:00 PM JENISE NORTON BRCRBD During your visit today, we recorded the [...] breast cancer, and a history of Ashkenazi Yazidi ancestry. Breast pain is very common and usually is not a sign of cancer, but should be evaluated by a breast specialist. For comfort, simply reducing caffeine (coffee, tea, chocolate, energy drinks, sodas) in your diet can provide relief. A properly fitted bra can also be helpful in reducing breast pain. If those two measures do not provide relief, taking Evening [place] Oil 1000mg capsules twice a day for [...] today, you may do so at [email or web address] [employer].[email or web address]. Thank you ! Megan Shields Ma 08/24/2019 1:56 PM Signed MEDICAL BREAST PATIENT NAME: Mirian Corrales August 24, 2019 REFERRAL: She is seen at the request of self referral. 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 [...] nursing notes with the patient. Jenise Norton APRN.MANAGER FINANCIAL SERVICES FAMILY HISTORY Problem Relation Age of Onset [...] patient or coordinating her care. Jenise Norton APRN.[facility] Medical Breast Specialist August 24, 2019 [...] [Z80.3] Order(s):CONSULT TO MEDICAL GENETICS - CANCER [[id number]] Order #: [id number]: 1 Prescriptions as of 08/24/2019 Sig: PROBIOTIC [...] breast cancer, and a history of Ashkenazi Yazidi ancestry. Breast pain is very common and usually is not a sign of cancer, but should be evaluated by a breast specialist. For comfort, simply reducing caffeine (coffee, tea, chocolate, energy drinks, sodas) in your diet can provide relief. A properly fitted bra can also be helpful in reducing breast pain. If those two measures do not provide relief, taking Evening [place] Oil 1000mg capsules twice a day for [...] today, you may do so at [email or web address] [employer][email or web address]. Thank you ! Disposition: Return in about 1 year (around 08/24/2020) for exam and mammogram . Follow-up and Disposition History Recorded Encounter Status:Closed by JENISE NORTON CNP on 08/25/19 [facility] DIAGNOSTIC BILon 019 [facility] DIAGNOSTIC DICK * * *Final Report* * * DATE OF EXAM: Aug 24 2019 3:30PM BCW 0620 - [facility] DIAGNOSTIC DICK / PROCEDURE REASON: multiple diagnoses * * * * Physician Interpretation * * * * #[id number] - [facility] DIAGNOSTIC DICK BILATERAL DIGITAL DIAGNOSTIC MAMMOGRAM [...] SUMMARY: ULTRASOUND DICTATED SEPARATELY. Lindsey ventura/domingo:08/24/2019 15:32:33 Patient Coordinator Front Desk(s): RT Chuck(R)(M), [facility] Mammogram BI-RADS: 0 Incomplete: needs additional [...] Health, Family Medicine, and Medical/Surgical Oncology, the [facility] has carefully reviewed the data and reached [...] their providers when to stop screening mammograms. Airbrush Artist Technical: Domingo Transcribe Date/Time: Aug 24 2019 2:15P Dictated by : LINDSEY YOO MD This examination was interpreted and the report reviewed and electronically signed by: LINDSEY YOO MD on Aug 24 2019 3:32PM EST [id number] Normal [facility] US BREAST LTD LTon 08-24 [facility] US BREAST LTD LT * * *Final Report* * * DATE OF EXAM: Aug 24 2019 3:30PM BCW 0593 - [facility] US BREAST LTD LT / PROCEDURE REASON: multiple diagnoses * * * * Physician Interpretation * * * * #[id number] - [facility] US BREAST LTD LT ULTRASOUND OF LEFT BREAST: 08/24/2019 HISTORY: Breast Lump/Outside Facility Follow Up. RESULT: Comparison is made to exam dated: 08/24/2019 mammogram - [facility]. Color flow and real-time ultrasound [...] screening schedule is recommended. Lindsey ventura/domingo:08/24/2019 15:53:08 Patient Coordinator Front Desk(s): RT Chuck(R)(M), [facility] Ultrasound BI-RADS: 2 Benign finding [...] Health, Family Medicine, and Medical/Surgical Oncology, the [facility] has carefully reviewed the data and reached [...] their providers when to stop screening mammograms. Airbrush Artist Technical: Domingo Transcribe Date/Time: Aug 24 2019 3:03P Dictated by : LINDSEY YOO MD This examination was interpreted and the report reviewed and electronically signed by: LINDSEY YOO MD on Aug 24 2019 3:53PM EST [id number] Normal [facility] US BREAST LTD RTon 08-24 [facility] US BREAST LTD RT * * *Final Report* * * DATE OF EXAM: Aug 24 2019 3:30PM BCW 0594 - [facility] US BREAST LTD RT / PROCEDURE REASON: multiple diagnoses * * * * Physician Interpretation * * * * #[id number] - [facility] US BREAST LTD RT ULTRASOUND OF RIGHT BREAST: 08/24/2019 HISTORY: Indentation/Outide Facility Follow Up. RESULT: Comparison is made to exam dated: 08/24/2019 mammogram - [facility]. Real-time ultrasound of the right [...] screening schedule is recommended. Lindsey ventura/domingo:08/24/2019 15:54:44 Patient Coordinator Front Desk(s): RT Chuck(R)(M), [facility] Ultrasound BI-RADS: 2 Benign finding [...] Health, Family Medicine, and Medical/Surgical Oncology, the [facility] has carefully reviewed the data and reached [...] their providers when to stop screening mammograms. Airbrush Artist Technical: Domingo Transcribe Date/Time: Aug 24 2019 3:04P Dictated by : LINDSEY YOO MD This examination was interpreted and the report reviewed and electronically signed by: LINDSEY YOO MD on Aug 24 2019 3:55PM EST [id number] Normal [facility] PROGRESSon 08-24-2019 PROGRESS HNO ID: [id number] Author: Megan Shields Ma Service: ? Author Type: ? Type: Progress Notes Filed: 08/25/2019 8:25 AM Note Text: MEDICAL BREAST PATIENT NAME: Mirian Corrales August 24, 2019 REFERRAL: She is seen at the request of self referral. 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 Jenise Norton, RYAN.MANAGER FINANCIAL SERVICES FAMILY HISTORY Problem Relation Age of Onset [...] patient or coordinating her care. Jenise Norton APRN.MANAGER FINANCIAL SERVICES Medical Breast Specialist August 24, 2019 CC: Normal [facility] PROGRESS HNO ID: [id number] Author: Prabhakar Woods (Tech) Service: ? Author Type: Powerhouse Mechanic Type: Progress Notes Filed: 08/24/2019 3:31 PM [...] Woods August 24, 2019 3:31 PM Normal [facility]EN DIGITAL DIAGNOSTIC W OR WO CAD BILATERALon 05-07-2019 [facility] DIGITAL DIAGNOSTIC W OR WO CAD BILATERAL [...] Black Lane MD 05/07/19 Final result Normal [facility] 05-07-2019 1. No convincing mammographic or [...] sent to the patient regarding the results. [facility], [place] EXAMINATION: BILATER AL DIGITAL DIAGNOSTIC MAMMOGRAM; [...] Mild cortical thickening of an axillary node. [facility], [place] Rigoberto, pn Incoming Radiant Results From [employer] - 05/07/2019 3:26 PM EDT EXAMINATION: BILATERAL [...] sent to the patient regarding the results. [place], [place] US BREAST COMPLETE LEFTon US BREAST COMPLETE [...] Black Lane MD 05/07/19 Final result Normal [facility] US BREAST COMPLETE RIGHTon 0 05-07-2019 US [...] Black Lane MD 05/07/19 Final result Normal [facility] DIGITAL DIAGNOSTIC W OR WO CAD BILATERAL IMPORTon 05-05-2019 [facility] DIGITAL DIAGNOSTIC W OR WO CAD BILATERAL IMPORT Images were obtained outside of [facility] [id number] Normal [facility] US-US BREAST COMPLETE RIGHT IMPORTon 05-05-2019 US-US BREAST COMPLETE RIGHT IMPORT Images were obtained outside of [facility] [id number] Normal [facility] US-US BREASt COMPLETE LEFT I MPORTon 05-05-2019 US-US BREASt COMPLETE LEFT IMPORT Images were obtained outside of [facility] [id number] Normal [facility] OREN DIGITAL SCREEN W OR WO C [...] Susy Peterson MD 04/10/19 Final result Normal [facility] MG-OREN DIGITAL SCREEN W OR W O CAD BILATERAL IMPORTon 04-10-2019 MG-OREN DIGITAL SCREEN W OR WO CAD BILATERAL IMPORT Images were obtained outside of [facility] [id number] Normal [facility] Surgical Pathologyon 019 Surgical Pathology (NOTE) [id number] [facility] ANATOMIC PATHOLOGY [address] [place] [id number] SURGICAL PATHOLOGY CONSULTATION Patient Name: MIRIAN CORRALES [facility] Rec: [id number] Path Number: [id number] Collected: 03/15/2019 Received: 03/16/2019 Reported: 03/17/2019 09:30 -- Diagnosis -- POLYP, COLORECTAL (SIGMOID): - BENIGN ADENOMATOUS POLYP (TUBULAR ADENOMA). Justo Walters M.D. Electronically Signed Out [facility]/03/17/2019 Clinical Information Pre-op Diagnosis: COLON CANCER SCREENING Operative Findings: SIGMOID COLON POLYP Operation Performed: COLONOSCOPY, POLYPECTOMY SNARE/COLD BIOPSY Source of Specimen 1: SIGMOID COLON POLYP Gross Description MIRIAN CORRALES SIGMOID COLON POLYP One jimenez-white tissue fragment, 1.8 x 0.6 x 0.1 cm. Entirely 1cs. rh tm Microscopic Description Microscopic examination performed. Normal [facility] Comment on above: Performed By: #### P PPVS #### [facility] [address] [place], [place] [id number] Health Educator: Darryl Walters MD Social History Date Type Detail Facility Start: 03-20-2019 Tobacco smoking status NHIS Never sm oker [facility] [place], [place] Start: 03-20-2019 Alcohol intake Yes [facility], [place] Start: 03-15-2019 Alcohol Comment social [facility], [place] Start: 1955 Sex Assigned At Female F [facility] Sex Assigned At Not on file [facility], [place] Vital Signs Date Time Vital Sign Value Performing Clinician Fidel pelaez 09-30-2022 11:16-0500 Diastolic blood pressure 70 mm[Hg] DO [employer] Work Phone: [facility] 09-30-2022 11:16-0500 Heart rate 60 /min DO [employer] Work Phone: [facility] 09-30-2022 11:16-0500 Respiratory rate 20 /min DO [place] [facility] Work Phone: [facility] 09-30-2022 11:16-0500 SaO2% (BldA) [Mass fraction] 98 % DO Efren [employer] Work Phone: [facility] 09-30-2022 11:16-0500 Systolic blood pressure 117 mm[Hg] DO [employer] Work Phone: [facility] 10-29-2021 13:03-0500 Body temperature 98 [degF] DO [facility] Work Phone: [facility] Evaluation note Note Date & Type Note Facility Evaluation note No assessment information availa [facility] Work Phone: History of Present illness Narrative [...] Non-smoker. 5'6 weighs 125 lbs. Exercise daily. 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 Advance Directives and Living Will Power of Staffing Manager Advance Directive Response Recorded Date/ Time Advance Directives No October 27, 2021 3:12pm Reason for Referral Status Reason Specialty Diagnoses / Procedures Referred By Contact Referred To Contact Pending Review Radiology Diagnoses Abnormal mammogram Procedures US BREAST COMPLETE LEFT Eber Sher MD [address] [place] [address] Status Reason Specialty Diagnoses / Procedures Referre d By Contact Referred To Contact Open Radiology Diagnoses Abnormal mammogram Procedures US BREAST COMPLETE RIGHT Eber Sher MD [address] [place] [address] Assessments Diagnosis Abnormal mammogram Abnormal mammogram, unspecified [...] DATE CREATED AUTHOR AUTHOR'S ORGANIZ ATION 08/25/2019 [facility] DATE CREATED AUTHOR AUTHOR'S ORGANIZ ATION 08/26/2022 [facility] DATE CREATED AUTHOR AUTHOR'S ORGANIZ ATION 08/27/2022 [facility] DATE CREATED AUTHOR AUTHOR'S ORGANIZ ATION 12/24/2022 [facility] DATE CREATED AUTHOR AUTHOR'S ORGANIZ ATION 12/03/2023 [facility] Reason for Visit (unrecogniz ed section and content) Status Reason Specialty Diagnoses / Procedures Referre d By Contact Referred To Contact Open Radiology Diagnoses Abnormal mammogram Procedures US BREAST COMPLETE RIGHT Eber Sher MD [address] [place] [address] Care Teams (unrecognized sec tion and content) [...] BE BASED ON THE PRIMARY CLINICAL RECORDS. [facility] [employer] provides no warranty or guarantee of the accuracy or completeness of information in this document.
[2024-03-11 13:41] VITALS: O2SAT 100
--- NOTE | 2024-03-11 14:22 | ED_ITS ---
HPI HPI - General Adult General Chief complaint: Allergic Reaction Stated complaint: ALLERGIC REACTION Time Seen by Provider: 03/11/24 14:13 Source: patient Mode of arrival: walk-in Limitations: no limitations History of Present Illness HPI narrative: This patient is here complaining of a rash. She just traveled [place] and was in [facility]. On the third day of her vacation she started symptoms. Normally she is a vegetarian but she started eating a lot of milk products and cheese products over there. Otherwise her diet did not change. She is not on any steroids. When she was over there she took an [id number] antihistamine but did not help. She could not identify anything specifically such as shellfish or peanuts or anything of that nature. She has not had wheezing or t ightness in her chest. She has not had severe intestinal bloating. She has not had copious diarrhea. Related Data Home Medications ?Medication ?Instructions ?Recorded ?Confirmed No Known Home Medications 03/11/24 03/11/24 Allergies Allergy/AdvReac Type Severity Reaction Status Date / Time No Known Drug Allergies Allergy Verified 01/02/24 12:13 Opioid HPI Opioid Management Most Recent Opioid Data: No Data to Display Exam Narrative Exam Narrative: Awake alert pleasant she has classic urticarial hive type reaction throughout her trunk torso and extremities. Her limbs are somewhat spared in the lower extremities. Her mouth and oral cavity do not have any exanthems or vesicles or ulcerations or edema. Her lips are normal. She does not have any cough wheezing or shortness of breath. Her vital signs are stable. This does not appear to be any infestation these are definitely hives. Constitutional Vital Signs, click to edit/add: Last Vital Signs Temp 97.6 F 03/11/24 13:33 Pulse 69 03/11/24 13:33 Resp 20 03/11/24 13:33 BP 145/80 H 03/11/24 13:33 Pulse Ox 100 03/11/24 13:41 O2 Del Method Room Air 03/11/24 13:41 Course Vital Signs Vital signs: Vital Signs Temperature 97.6 F 03/11/24 13:33 Pulse Rate 69 03/11/24 13:33 Respiratory Rate 20 03/11/24 13:33 Blood Pressure 145/80 H 03/11/24 13:33 Pulse Oximetry 99 03/11/24 13:33 Oxygen Delivery Method Room Air 03/11/24 13:33 Temperature 97.6 F 03/11/24 13:33 Pulse Rate 69 03/11/24 13:33 Respiratory Rate 20 03/11/24 13:33 Blood Pressure 145/80 H 03/11/24 13:33 Pulse Oximetry 100 03/11/24 13:41 Oxygen Delivery Method Room Air 03/11/24 13:41 Medical Decision Making MDM Narrative Medical decision making narrative: Since the patient is not on any medication this is probably dietary related with her new travel and dietary intake. She will be placed on a steroid and cold compresses as well as soaks with Epsom salt in the bathtub. She can continue to take 25 mg of Benadryl 3 times a day for several days Discharge Plan Discharge Stand Alone Forms: Portal Instructions Chief Complaint: Allergic Reaction Clinical Impression: Allergic reaction Patient Disposition: Home, Self-Care Time of Disposition Decision: 14:24 Prescriptions / Home Meds: No Action No Known Home Medications Print Language: Micronesian Additional Instructions: Cool compresses, baths and showers. Prednisone burst. Continue Benadryl 25 mg 3 times a day for 5 days follow-up with primary care doctor or mark up designer as discussed Referrals: CONNER BURNETT [Primary Care Provider] - 1 week
[2024-03-11] MEDS: DEXAMETHASONE SOD PHOS 10 MG/ML VIAL IM (14:41)
== END 2024-03-11 14:50 | disposition home or self-care (01) ==
PROVIDERS: Emergency Provider Emergency Medicine Emergency Medical Services; PCP Internal Medicine
DX: L50.0 Allergic urticaria (principal)
CPT/HCPCS: 96372; 99284; J1100

== ENCOUNTER 2024-03-20 13:18 | Emergency (ER) | payer MEDICARE, OTHER, SELFPAY ==
[2024-03-20 13:23] VITALS: BP 144/89; PULSE 75; TEMP 36.4; O2SAT 98; BMI 19.4
--- NOTE | 2024-03-20 13:42 | ED_ITS ---
HPI HPI - General Adult General Chief complaint: Allergic Reaction Stated complaint: RASH Time Seen by Provider: 03/20/24 13:25 Source: patient Mode of arrival: ambulance Limitations: no limitations History of Present Illness HPI narrative: 68-year-old female presents for rash. It started while she was on vacation in [facility] over a week ago. Its mostly on her back and it is pruritic. She was not on any new medications and did not use any new products. No fever cough chest pain or shortness of breath. She was seen here and also in her family doctor's office. She was given IM Decadron and prescribed prednisone. She did not like the way the prednisone made her feel. Her doctor suggested that she see an bus dispatcher [place] but she cannot get in until next month. Related Data Previous Rx's ?Medication ?Instructions ?Recorded hydroxyzine HCl 25 mg tablet 25 mg PO Q8H PRN itching #20 tabs 03/20/24 Allergies Allergy/AdvReac Type Severity Reaction Status Date / Time No Known Drug Allergies Allergy Verified 03/20/24 13:35 Opioid HPI Opioid Management Most Recent Opioid Data: No Data to Display Review of Systems ROS Narrative A ten point review of systems is negative except as noted above. Exam Narrative Exam Narrative: Nurses note and vital signs reviewed and patient is not hypoxic. General: The patient appears well and in no apparent distress. Patient is re sting comfortably on cart. Skin: Warm, dry, no pallor noted. There is a rash present primarily on her back. It goes down into her hip area but the extremities are mostly spared and there does not seem to be any on her face. There are innumerable raised discrete very minimally erythematous areas. There is no pustule or blister and there is no drainage. It is not hot to touch. It does not follow any specific geometric pattern. Head: Normocephalic, atraumatic Eye: Normal conjunctiva, no drainage Ears, Nose, Mouth, and Throat: oral mucosa is moist. Nares patent. Cardiovascular: Regular Rate and Rhythm Respiratory: Patient is in no distress, no accessory muscle use, lungs are clear to auscultation, no wheezing, rales or rhonchi Back: non-tender GI: Soft and nontender Musculoskeletal: The patient has no evidence of calf tenderness, no pitting edema, symmetrical pulses noted bilaterally Neurological: A&O, normal speech Psychiatric: Cooperative Constitutional Vital Signs, click to edit/add: Last Vital Signs Temp 97.6 F 03/20/24 13:23 Pulse 75 03/20/24 13:23 Resp 16 03/20/24 13:23 BP 144/89 H 03/20/24 13:23 Pulse Ox 98 03/20/24 13:23 O2 Del Method Room Air 03/20/24 13:23 Course Vital Signs Vital signs: Vital Signs Temperature 97.6 F 03/20/24 13:23 Pulse Rate 75 03/20/24 13:23 Respiratory Rate 16 03/20/24 13:23 Blood Pressure 144/89 H 03/20/24 13:23 Pulse Oximetry 98 03/20/24 13:23 Oxygen Delivery Method Room Air 03/20/24 13:23 Temperature 97.6 F 03/20/24 13:23 Pulse Rate 75 03/20/24 13:23 Respiratory Rate 16 03/20/24 13:23 Blood Pressure 144/89 H 03/20/24 13:23 Pulse Oximetry 98 03/20/24 13:23 Oxygen Delivery Method Room Air 03/20/24 13:23 Medical Decision Making MDM Narrative Medical decision making narrative: She has been given IM Decadron and she did not want to take more prednisone. She is being prescribed Atarax. The cause is uncertain. It does not appear to be infectious. She thought it might be a fungal infection but it does not have that appearance. I do not suspect folliculitis or cellulitis. Treatment diagnosis and follow-up were discussed with the patient. Differential Diagnosis Differential Diagnosis: Nonspecific rash, folliculitis, cellulitis, insect bites Discharge Plan Discharge Stand Alone Forms: Portal Instructions Chief Complaint: Allergic Reaction Clinical Impression: Rash Patient Disposition: Home, Self-Care Time of Disposition Decision: 13:41 Condition: Good Mode of Transportation: Private Vehicle Prescriptions / Home Meds: New hydroxyzine HCl 25 mg tablet 25 mg PO Q8H PRN (Reason: itching) Qty: 20 0RF Print Language: Luxembourger Instructions: Acute Rash (ED) Additional Instructions: Do not take Benadryl with the Atarax Referrals: CONNER BURNETT [Primary Care Provider] - 1 week
[2024-03-20] MEDS: DEXAMETHASONE SOD PHOS 10 MG/ML VIAL IM (13:49)
--- OUTSIDE RECORDS SUMMARY | 2024-03-20 14:10 | XMS_ITS | CCD ---
Author Organization [facility] Care Team Providers Care Trains Dispatcher Supervisor Name Role Phone JUAN SHEROLPH J Referring Unavailable SHER, EBER J Primary Care Unavailable RADIOLOGIST, MTH GEN Attending Unavailable SHER, EBER J Referring Unavailable SHER, EBER J Primary Care Unavailable NED CARVALHO Admitting Unavailable NED CARVALHO Attending Unavailable SHER, EBER J Primary Care Unavailable SHER, EBER J Referring Unavailable SHER, EBER J Primary Care Unavailable Christos Eber J Primary Care Provider DO Conner Stanley Primary Care Provider DO Conner Stanley Attending Provider [phone] None, No PCP Unavailable Unavailable Henrique Vail Referring Unavailable Henrique Vail Attending Unavailable DO Conner Stanley Primary Care Provider MD Henrique Vail Attending Provider [phone] MD Roz Aguilera Attending Provider [phone] DO Conner Stanley Referring Provider Self, Referral Attending Provider [...] Referral Admitting Unavailable Self, Referral Attending Unavailable Conner Stanley Primary Care Unavailable CONNER STANLEY Referring Unavailable MARIZOL BLUNT Attending Unavailable Problems Active Problems Problem Classification Problem [...] n 11-30-2023 MM screening mammo BI w/CAD [facility] [place] [address] Mammography Report Signed Patient: Mirian Corrales MR#: [id number] 67 : 1955 Acct:[id number] Age/Sex: 68 / F ADM Date: 11/30/23 Loc: [place] Room: Type: [facility] Attending Dr: Referral Self Copies to: Lucas [...] mammogram. Impression dictated by: Toribio Michael Jr., DBuddyOBuddy11/30/2023 3:26 PM Dictation Location: [facility] Transcribed By: JULIOCESAR 11/30/23 1526 Dictated By: Toribio Michael Jr, DO 11/30/23 1525 Signed By: 11/30/23 1526 Normal [facility] Albumin [Mass/volume] in Ser um or PlasmaOrdered By: Henrique Vail on 09-18-2022 Albumin [Mass/Vol] 4.0 g/dL 3.2-5.5 [facility] Alkaline phosphatase [Enzyma tic activity/volume] in Serum or PlasmaOrdered By: Henrique Vail on 09-18-2022 ALP [Catalytic activity/Vol] 44 U/L 32-92 [facility] Aspartate aminotransferase [ Enzymatic activity/volume] in Serum or PlasmaOrdered By: Henrique Vail on 09-18-2022 AST [Catalytic activity/Vol] 23 U/L 10-42 [facility] Bilirubin.direct [Mass/volum e] in Serum or PlasmaOrdered By: Henrique Vail on 09-18-2022 Bilirubin.direct [Mass/Vol] mg/dL 0.0-0.4 [facility] Bilirubin.total [Mass/volume ] in Serum or PlasmaOrdered By: Henrique Vail on 09-18-2022 Bilirubin [Mass/Vol] 0.4 mg/dL 0.3-1.2 [facility] Globulin Calc (S) [Mass/Vol] Ordered By: Henrique Vail on 09-18-2022 Globulin (S) [Mass/Vol] 2.7 g/dL [facility] Protein [Mass/volume] in Ser um or PlasmaOrdered By: Henrique Vail on 09-18-2022 Protein [Mass/Vol] 6.7 g/dL 6.1-7.9 [facility] Serum or plasma alanine steve otransferase measurement without P-5'-P (enzymatic activiOrdered By: Henrique Vail on 09-18-2022 ALT No additional P-5'-P [Catalytic activity/Vol] 23 U/L 10-60 [facility] Serum or plasma albumin/glob ulin mass ratioOrdered By: Henrique Vail on 09-18-2022 Albumin/Globulin [Mass ratio] 1.5 {ratio} [facility] Serum or plasma non-glucuron idated bilirubin measurement (mass/volume)Ordered By: Henrique Vail on 09-18-2022 Bilirubin.indirect [Mass/Vol] TNP [facility] Comment on above: Test not performed Initial Visit (Gastroenterol ogy)on 08-26-2022 Initial Visit (Gastroenterology) Diagnoses/Problems Assessed Abnormal radiographic examination (793.99) (R93.89) Orders Abnormal radiographic examination Hepatic Function Panel; Status:Active; Requested for:[id number]; Perform:Lab Services - Lab To Draw (Blood [...] : DR LUCAS LAN . Admission #: [id number] Family : Order #: [id number] CLICK HERE TO VIEW EXAM RADIOLOGY REPORT [...] breast cancer at age 35. LOCATION: [facility] BREAST COMPOSITION: Heterogeneously dense,which may obscure small [...] M.D. on 03/24/2022 at 14:41 Normal [facility] US BREAST DICK LIMITEDon 07-0 US BREAST DICK LIMITED Patient: MIRIAN CORRALES Exam Date: 03/24/2022 : 1955 Gender:F Ordering : DR LUCAS LAN . Admission #: [id number] Family : Order #: [id number] CLICK HERE TO VIEW EXAM RADIOLOGY REPORT [...] breast cancer at age 35. LOCATION: [facility] BREAST COMPOSITION: Heterogeneously dense,which may obscure small [...] M.D. on 03/24/2022 at 14:41 Normal [facility] XR DEXA BONE DENSITYon 03-24 XR DEXA [...] authenticated by: NED PAULINO Date: 2022-03-24 17:39 [facility] PAP ACOG PANEL 2: 30 to 65on 03-19-2022 . . Normal [facility] Comment on above: Performed By: #### [id number] #### [facility] [address] [place] [address] Dr. Lilo Warren Age Gdln ACOG Testing Comment Normal [facility] Comment on above: Result Comment: <21 or >65 or no age provided Performed By: #### [id number] #### [facility] [address] [address] [address] Lilo Warren DIAGNOSIS: Comment [facility] Comment on above: Result Comment: NEGA TIVE FOR INTRAEPITHELIAL LESION OR MALIGNANCY. CELLULAR CHANGES ASSOCIATED WITH ATROPHY ARE PRESENT. Performed By: #### [id number] #### [facility] [address] [place] [address] Dr. Lilo Warren Methodology: Comment [facility] Comment on above: Result Comment: This liquid based ThinPrep(R) pap test was screened with the use of an image guided system. Performed By: #### [id number] #### [facility] [address] [place] [address] Dr. Lilo Warren Note: Comment [facility] Comment on above: Result Comment: The Pap smear is a screening test designed to aid in the detection of premalignant and malignant conditions of the uterine cervix. It is not a diagnostic procedure and should not be used as the sole means of detecting cervical cancer. Both false-positive and false-negative reports do occur. . Performed By: #### [id number] #### [facility] [address] [address] [address] Lilo Warren Performed by: Comment Normal [facility] Comment on above: Result Comment: Yg Smith, Market Research Consultant (ASCP) Performed By: #### 4 [id number] #### [facility] [address] [address] [address] Lilo Warren Specimen adequacy: Comment Normal [facility] Comment on above: Result Comment: Sati sfactory for evaluation. Endocervical and/or squamous metaplastic cells (endocervical component) are present. Performed By: #### 4 [id number] #### [facility] [address] [address] [address] Lilo BAKEROVon 08-24-2019 CNOV Office Visit (BRCRBD ) MIRIAN CORRALES ([id number]) 1955 F Date Time Provider Department 08/24/19 1:00 PM JENISE SOLER BRCRBD During your visit today, we recorded [...] breast cancer, and a history of Ashkenazi Catholic ancestry. Breast pain is very common and usually is not a sign of cancer, but should be evaluated by a breast specialist. For comfort, simply reducing caffeine (coffee, tea, chocolate, energy drinks, sodas) in your diet can provide relief. A properly fitted bra can also be helpful in reducing breast pain. If those two measures do not provide relief, taking Evening Kelly Oil 1000mg capsules twice a day for [...] today, you may do so at [email or web address] properties and services. Thank you ! Megan Shields Ma 08/24/2019 1:56 PM Signed MEDICAL BREAST PATIENT NAME: Mirian Corrales August 24, 2019 REFERRAL: She is seen at the request of self referral. 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 today for evaluation of an abnormal mammogram. [...] discussed nursing notes with the patient. Jenise Soler APRN.DRAPERY HANGER FAMILY HISTORY Problem Relation Age of Onset [...] the patient or coordinating her care. Jenise Soler APRN.[facility] Medical Breast Specialist August 24, 2019 CC: Referring Provider: SELF [200] Allergies As of Date: 08/24/2019 Noted Allergy Reaction DAIRY AID (LACTASE) 08/24/2019 7 - Swelling Comments: Bloating WHEAT 08/24/2019 7 - Swelling Date Reviewed: 08/24/2019 Reviewed by: Jenise Soler - Fully Assessed Reason for Visit: New Patient [172] Cmt: abnormal mammogram Primary Visit Diagnosis:Abnormal mammogram [R92.8] Other Visit Diagnoses:Fibrocystic breast changes of both breasts [N60.11, N60.12] Lump of left breast [N63.20] Family history of pancreatic cancer [Z80.0] Family history of breast cancer [Z80.3] Order(s):CONSULT TO MEDICAL GENETICS - CANCER [9101312] Order #: [id number]: 1 Prescriptions as of 08/24/2019 Sig: PROBIOTIC [...] breast cancer, and a history of Ashkenazi Catholic ancestry. Breast pain is very common and usually is not a sign of cancer, but should be evaluated by a breast specialist. For comfort, simply reducing caffeine (coffee, tea, chocolate, energy drinks, sodas) in your diet can provide relief. A properly fitted bra can also be helpful in reducing breast pain. If those two measures do not provide relief, taking Evening Kelly Oil 1000mg capsules twice a day for [...] today, you may do so at [email or web address] properties and services. Thank you ! Disposition: Return in about 1 year (around 08/24/2020) for exam and mammogram . Follow-up and Disposition History Recorded Encounter Status:Closed by JENISE SOLER CNP on 08/25/19 Normal [facility] DIAGNOSTIC BILon 019 [facility] DIAGNOSTIC DICK * * *Final Report* * * DATE OF EXAM: Aug 24 2019 3:30PM [facility] 0620 - [facility] DIAGNOSTIC DICK / PROCEDURE REASON: multiple diagnoses * * * * Physician Interpretation * * * * #[id number] - [facility] DIAGNOSTIC DICK BILATERAL DIGITAL DIAGNOSTIC MAMMOGRAM [...] SUMMARY: ULTRASOUND DICTATED SEPARATELY. Lindsey ventura/domingo:08/24/2019 15:32:33 Competitive Athlete(s): RT Chuck(R)(M), [facility] Mammogram BI-RADS: 0 Incomplete: needs additional imaging [...] Health, Family Medicine, and Medical/Surgical Oncology, the [facility] has carefully reviewed the data and [...] their providers when to stop screening mammograms. Television Maintenance Worker: Domingo Transcribe Date/Time: Aug 24 2019 2:15P Dictated by : LINDSEY YOO MD This examination was interpreted and the report reviewed and electronically signed by: LINDSEY YOO MD on Aug 24 2019 3:32PM EST [id number] Normal [facility] [employer] BREAST LTD LTon 08-24 [employer] BREAST LTD LT * * *Final Report* * * DATE OF EXAM: Aug 24 2019 3:30PM BCW 0593 - [employer] BREAST [employer] LT / PROCEDURE REASON: multiple diagnoses * * * * Physician Interpretation * * * * #[id number] - [employer] BREAST LTD LT ULTRASOUND OF LEFT BREAST: 08/24/2019 HISTORY: Breast Lump/Outside Facility Follow Up. RESULT: Comparison is made to exam dated: 08/24/2019 mammogram - [facility]. Color flow and real-time ultrasound of the [...] screening schedule is recommended. Lindsey ventura/domingo:08/24/2019 15:53:08 Competitive Athlete(s): RT Chuck(R)(M), [facility] Ultrasound BI-RADS: 2 Benign finding Multiple national specialty organizations have released breast cancer screening guidelines for women at average risk for developing breast cancer - guidelines that are based on both evidence and opinion, yet differ on when to start and how often to screen for breast cancer. With representation from Breast Imaging, Internal Medicine, Women's Health, Family Medicine, and Medical/Surgical Oncology, the [facility] has carefully reviewed the data and [...] their providers when to stop screening mammograms. Television Maintenance Worker: Domingo Transcribe Date/Time: Aug 24 2019 3:03P Dictated by : LINDSEY YOO MD This examination was interpreted and the report reviewed and electronically signed by: LINDSEY YOO MD on Aug 24 2019 3:53PM EST [id number] Normal [facility] [employer] BREAST LTD RTon 08-24 [employer] BREAST Entigo RT * * *Final Report* * * DATE OF EXAM: Aug 24 2019 3:30PM W 0594 - [employer] BREAST LTD RT / PROCEDURE REASON: multiple diagnoses * * * * Physician Interpretation * * * * #[id number] - [facility] [employer] BREAST Entigo RT ULTRASOUND OF RIGHT BREAST: 08/24/2019 HISTORY: Indentation/Outide Facility Follow Up. RESULT: Comparison is made to exam dated: 08/24/2019 mammogram - [facility]. Real-time ultrasound of the right breast was [...] screening schedule is recommended. Lindsey ventura/domingo:08/24/2019 15:54:44 Competitive Athlete(s): RT Chuck(R)(M), [facility] Ultrasound BI-RADS: 2 Benign finding Multiple national specialty organizations have released breast cancer screening guidelines for women at average risk for developing breast cancer - guidelines that are based on both evidence and opinion, yet differ on when to start and how often to screen for breast cancer. With representation from Breast Imaging, Internal Medicine, Women's Health, Family Medicine, and Medical/Surgical Oncology, the [facility] has carefully reviewed the data and [...] their providers when to stop screening mammograms. Television Maintenance Worker: Domingo Transcribe Date/Time: Aug 24 2019 3:04P Dictated by : LINDSEY YOO MD This examination was interpreted and the report reviewed and electronically signed by: LINDSEY YOO MD on Aug 24 2019 3:55PM EST [id number] Normal [facility] PROGRESSon 08-24-2019 PROGRESS HNO ID: [id number] Author: Prabhakar Woods (Tech) Service: ? Author Type: Nailing Machine Operator Type: Progress Notes Filed: 08/24/2019 3:31 PM [...] Woods August 24, 2019 3:31 PM [facility] PROGRESS HNO ID: [id number] Author: Megan Shields Ma Service: ? Author Type: ? Type: Progress Notes Filed: 08/25/2019 8:25 AM Note Text: MEDICAL BREAST PATIENT NAME: Mirian Corrales August 24, 2019 REFERRAL: She is seen at the request of self referral. 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 [place] today for evaluation of an abnormal mammogram. [...] discussed nursing notes with the patient. Jenise Soler APRN.DRAPERY HANGER FAMILY HISTORY Problem Relation Age of Onset [...] the patient or coordinating her care. Jenise Soler APRN.[facility] Medical Breast Specialist August 24, 2019 CC: Normal [facility] DIGITAL DIAGNOSTIC W OR WO CAD BILATERALon 05-07-2019 [facility] DIGITAL DIAGNOSTIC W OR WO CAD [...] Black Lane MD 05/07/19 Final result Normal [facility] 05-07-2019 1. No convincing mammographic or [...] sent to the patient regarding the results. [facility], [place] EXAMINATION: BILATER AL DIGITAL DIAGNOSTIC MAMMOGRAM; [...] Mild cortical thickening of an axillary node. [employer] [place] [place] Rigoberto, Mhpn Incoming Radiant Results From [facility] - 05/07/2019 3:26 PM EDT EXAMINATION: BILATERAL [...] sent to the patient regarding the results. [facility] [place] US BREAST COMPLETE LEFTon US BREAST COMPLETE [...] Black Lane MD 05/07/19 Final result Normal [facility] US BREAST COMPLETE RIGHTon 0 05-07-2019 US [...] Black Lane MD 05/07/19 Final result Normal [facility] [employer] DIGITAL DIAGNOSTIC W OR WO CAD BILATERAL IMPORTon 05-05-2019 [employer] DIGITAL DIAGNOSTIC W OR WO CAD BILATERAL IMPORT Images were obtained outside of [facility] [id number] Normal [facility] US-US BREAST COMPLETE RIGHT IMPORTon 05-05-2019 US-US BREAST COMPLETE RIGHT IMPORT Images were obtained outside of [facility] [id number] Normal [facility] US-US BREASt COMPLETE LEFT I MPORTon 05-05-2019 US-US BREASt COMPLETE LEFT IMPORT Images were obtained outside of [facility] [id number] Normal [facility] OREN DIGITAL SCREEN W OR WO [...] Susy Peterson MD 04/10/19 Final result Normal [facility] [employer] DIGITAL SCREEN W OR W O CAD BILATERAL IMPORTon 04-10-2019 [employer] DIGITAL SCREEN W OR WO CAD BILATERAL IMPORT Images were obtained outside of [facility] [id number] Normal [facility] Surgical Pathologyon 019 Surgical Pathology (NOTE) [id number] CONSULTING PATHOLOGISTS [facility] ANATOMIC PATHOLOGY [address] [place] [id number] SURGICAL PATHOLOGY CONSULTATION Patient Name: MIRIAN CORRALES [facility] Rec: [id number] Path Number: [id number] Collected: 03/15/2019 Received: 03/16/2019 Reported: 03/17/2019 09:30 -- Diagnosis -- POLYP, COLORECTAL (SIGMOID): - BENIGN ADENOMATOUS POLYP (TUBULAR ADENOMA). Justo Walters M.D. Electronically Signed Out [facility]/03/17/2019 Clinical Information Pre-op Diagnosis: COLON CANCER SCREENING Operative Findings: SIGMOID COLON POLYP Operation Performed: COLONOSCOPY, POLYPECTOMY SNARE/COLD BIOPSY Source of Specimen 1: SIGMOID COLON POLYP Gross Description MIRIAN CORRALES SIGMOID COLON POLYP One jimenez-white tissue fragment, 1.8 x 0.6 x 0.1 cm. Entirely 1cs. rh tm Microscopic Description Microscopic examination performed. Normal [facility] Comment on above: Performed By: #### P PPVS #### [facility] [address] [place] [id number] Retail Shift Manager: Darryl Walters MD Vital Signs Date Time Vital Sign Value Performing Clinician Mishai latanya 09-30-2022 11:16-0500 Diastolic blood pressure 70 mm[Hg] DO Conner Stanley Work Phone: [facility] 09-30-2022 11:16-0500 Heart rate 60 /min DO Conner Stanley Work Phone: [facility] 09-30-2022 11:16-0500 Respiratory rate 20 /min DO Conner Stanley Work Phone: [facility] 09-30-2022 11:16-0500 SaO2% (BldA) [Mass fraction] 98 % DO Cnoner Stanley Work Phone: [facility] 09-30-2022 11:16-0500 Systolic blood pressure 117 mm[Hg] DO Conner Stanley Work Phone: [facility] 10-29-2021 13:03-0500 Body temperature 98 [degF] DO Conner Stanley Work Phone: [facility] Encounters Encounter Date Encounter Type Care Provider Facility Start: 03-13-2024 End: 03-13-2024 ambulatory CONNER STANLEY Not Available Start: 11-30-2023 End: 11-30-2023 ambulatory Lucas Lan Facility:[facility] Start: 12-08-2022 End: 12-09-[address] PATRICK VENTURA Facility: Start: 11-20-2022 End: 11-20-2022 ambulatory DO Conner Stanley Work Phone: [facility] Work Phone: Start: 11-20-2022 End: 11-20-2022 Patient encounter procedure DO Conner Jacintagenaro Work Phone: [facility] Work Phone: Start: 09-30-2022 Registered Recurring DO Conner Workmangenaro Work Phone: [facility] Work Phone: Start: 09-18-2022 End: 09-18-2022 Patient encounter procedure DO Conner Stanley Work Phone: [facility] Main [place] Work Phone: Start: 08-26-2022 Phys/qhp telephone evaluation 21-30 min No PCP None QR-Sogipcswibdpfmyo-So lwell 6 [facility] Work Phone: Start: 08-26-2022 ambulatory Henrique Vail Facility:U Start: 08-12-2022 End: 08-12-2022 ambulatory DO Conner Stanley Work Phone: [facility] Work Phone: Start: 08-12-2022 End: 08-12-2022 Patient encounter procedure DO Conner Stanley Work Phone: [facility] Main [place] Start: 03-24-2022 End: 03-25-[address] LUCAS LAN . Facility: Start: 03-16-2022 End: 03-16-[address] LUCAS LAN . Facility: Start: 05-05-2019 End: 05-08-2019 Patient encounter procedure EBER J [facility] Start: 05-05-2019 End: 05-07-2019 Subsequent hospital visit by physician [facility] Ultrasound Room [facility] Ultrasound Comment on above: Abnormal mammogram Start: 04-10-2019 End: 04-13-2019 Patient encounter procedure EBER Mj [facility] Start: 03-15-2019 End: 03-15-2019 Patient encounter procedure NED CARVALHO [facility] Procedures Date Procedure Procedure Detail Performing Clinician Start: 11-20-2022 Screening mammography of bilateral breasts DO Conner Stanley Work Phone: Start: 08-12-2022 Magnetic resonance cholangiopancreatography DO Conner Jacintagenaro Work Phone: Start: 05-05-2019 Us breast uni real time with image complete EBER SHER Start: 05-05-2019 Diagnostic mammography computer-aided detcj bi EBER SHRE Start: 05-05-2019 Us breast uni real time with image complete Eber Sher Work Phone: Start: 04-10-2019 Screening mammography bi 2-view breast inc cad EBER SHER Start: 03-15-2019 DIET GENERAL EEBR SHER Start: 03-15-2019 MISCELLANEOUS NURSING CARE ORDER (SPECIFY) EBER SHER Start: 03-15-2019 REMOVE IV EBER SHER Start: 03-15-2019 VITAL SIGNS EBER SHER Start: 03-15-2019 DISCHARGE PATIENT EBER SHER Start: 03-15-2019 Level iv surg pathology gross&microscopic exam EBER SHER Start: 03-15-2019 INSERT PERIPHERAL IV EBER SHER Plan of Treatment Date Care Activity Detail Author Start: 03-15-2024 Colon cancer screen colonoscopy Colon cancer screen colonoscopy [place] Start: 05-05-2021 Breast cancer screen Breast cancer s creen [place] Start: 05-21-2019 Influenza vaccination Flu vaccine (# 1) [place] Start: 2005 Shingles Vaccine (1 of 2) Shingles Vaccine (1 of 2) [place] Start: 1995 Lipid screen Lipid screen [place], [place] Start: 1976 Cervical cancer screen Cervical canc er screen [place], [place] Start: 1974 DTaP/Tdap/Td vaccine (1 - Tdap) DTaP/Tdap/Td vaccine (1 - Tdap) [place] Start: 1970 HIV screen HIV screen [place], [place] Start: 1955 Hepatitis C screen Hepatitis C scree n [place] Payers Date Payer Category Payer Self-pay [id number] 2014 Unknown [id number] 2014 Unknown [employer] xxxxxxxxx 2014-Present [phone] [address] [place] [address] xxxxxxxxx [id number] 1959 Medicare [id number] 1959 Private Health Insurance [facility] [id number] 1955 Unknown [id number] [id number]. 2.173 1955 Unknown [id number] 2.16.840.1.043498.3.579. 2.173 1955 Unknown [id number] 2.16.840.1.150968.3.579. 2.173 1955 Unknown [id number] 2.16.840.1.318770.3.579. 2.173 1955 Unknown [id number] 2.16.840.1.092590.3.579. 2.356 1955 Unknown [id number] 2.16.840.1.047895.3.579. 2.593 1955 Unknown [id number] 2.16.840.1.477194.3.579. 2.593 1955 Unknown [id number] 2.16.840.1.889448.3.579. 2.593 1955 Unknown [id number] 2.16.840.1.516835.3.579. 2.1259 Unknown Unknown [id number] 2.16.840.1.316796.3.579. 2.531 Social History Date Type Detail Facility Start: 03-20-2019 Tobacco smoking status NHIS Never sm oker [place] Start: 03-20-2019 [place] intake [place] Start: 03-15-2019 Alcohol Comment social [place], [place] Sex Assigned At Not on file [place] Start: 1955 Sex Assigned At Female F [facility] Evaluation note Note Date & Type Note Facility Evaluation note No assessment information availa ble [facility] Work Phone: History of Present illness Narrative [...] Non-smoker. 5'6 weighs 125 lbs. Exercise daily. 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 Advance Directives and Living Will Power of Nuclear Weapons Custodian Advance Directive Response Recorded Date/ Time Advance Directives No October 27, 2021 3:12pm Reason for Referral Status Reason Specialty Diagnoses / Procedures Referred By Contact Referred To Contact Pending Review Radiology Diagnoses Abnormal mammogram Procedures US BREAST COMPLETE LEFT Eber Sher MD [address] [address] [place] [address] Status Reason Specialty Diagnoses / Procedures Referre d By Contact Referred To Contact Open Radiology Diagnoses Abnormal mammogram Procedures US BREAST COMPLETE RIGHT Eber Sher MD [address] [place] [address] Assessments Diagnosis Abnormal mammogram Abnormal mammogram, unspecified [...] section and content) DATE CREATED AUTHOR 05/08/2019 [facility] DATE CREATED AUTHOR AUTHOR'S ORGANIZ ATION 08/25/2019 [facility] DATE CREATED AUTHOR AUTHOR'S ORGANIZ ATION 08/26/2022 [facility] DATE CREATED AUTHOR AUTHOR'S ORGANIZ ATION 08/27/2022 [facility] DATE CREATED AUTHOR AUTHOR'S ORGANIZ ATION 12/24/2022 [facility] DATE CREATED AUTHOR AUTHOR'S ORGANIZ ATION 12/03/2023 [facility] DATE CREATED AUTHOR AUTHOR'S ORGANIZ ATION 03/13/2024 [facility] EPIC Reason for Visit (unrecogniz ed section and content) Status Reason Specialty Diagnoses / Procedures Referre d By Contact Referred To Contact Open Radiology Diagnoses Abnormal mammogram Procedures US BREAST COMPLETE RIGHT Eber Sher MD [address] [place] [address] Care Teams (unrecognized sec tion and content) Team Status: Inactive Member Role Status Dates Conner Stanley DO Primary Care Provider, Attending Lemuel finney Active Team Status: Active Member Role Status Dates Conner Stanley DO Primary Care Provider Active Team Status: Inactive Member Role Status Dates Conner Stanley DO Primary Care Provider Active Henrique Vail MD Attending Provider Active Team Status: Inactive Member Role Status Dates Conner Stanley DO Primary Care Provider, Referring P sharmin Active Referral Self Attending Provider Active Team Status: Active Member Role Status Dates Roz Aguilera MD Attending Provider Active Conner Stanley DO Primary Care Provider Active Goals [...] BE BASED ON THE PRIMARY CLINICAL RECORDS. [facility] [facility]. provides no warranty or guarantee of the accuracy or completeness of information in this document.
[2024-03-20 14:20] VITALS: BP 115/66; PULSE 64; O2SAT 100
== END 2024-03-20 14:24 | disposition home or self-care (01) ==
PROVIDERS: Emergency Provider Emergency Medicine; PCP Internal Medicine
DX: R21 Rash and other nonspecific skin eruption (principal)
CPT/HCPCS: 96372; 99284; J1100

== ENCOUNTER 2024-07-24 22:17 | Outpatient (REF) | payer MEDICARE, OTHER, SELFPAY ==
[2024-08-01 14:10] LABS: Age Gdln ACOG Testing Note (.); Pap IG (Image Guided) Note (.)
== END 2024-07-24 22:18 | disposition home or self-care (01) ==
LOC: LAB 22:17
PROVIDERS: PCP Internal Medicine; Visit Provider Obstetrics & Gynecology
DX: Z01.419 Encounter for gynecological examination (general) (routine) without abnormal findings (principal)
CPT/HCPCS: 88175

== ENCOUNTER 2024-08-08 10:23 | Outpatient (OUT) | payer MEDICARE, OTHER, SELFPAY ==
--- NOTE | 2024-08-08 10:39 | XR_ITS ---
[address] [address] Patient Name: JEANETTE COCHRAN MRN: [id number] date: 1955 Sex: F Assigned Patient Location: Current Patient Location: Accession/Order Number: [id number] Exam Date: 08/08/2024 11:45 Report Date: 08/09/2024 03:52 At the request of: LUCAS TADEO Procedure: XR DEXA axial skeleton EXAMINATION: XR DEXA axial skeleton HISTORY: Post Menopausal State COMPARISON: DEXA bone densitometry 03/24/2022 TECHNIQUE: Dual-energy X-ray absorptiometry (DXA) was performed. FINDINGS: SPINE ANALYSIS: Average bone mineral density is 1.050 g/cm2. T-score (standard deviation relative to young adult mean): -1.1 . -4.0% change since prior study. HIP ANALYSIS: Lowest bone mineral density is within the left femoral neck, 0.664 g/cm2. T-score (standard deviation relative to young adult mean): -2.7 . +4.7% change since prior study. XR/XR DEXA axial skeleton IMPRESSION: World Health Organization Classification: Normal - Low Fracture Risk FRAX: Cannot be calculated. Pharmacologic treatment recommendations * No uniform recommendation applies to all patients. Management plans must be individualized. * Consider initiating pharmacologic treatment in postmenopausal women and men >= 50 years of age who have the following: Primary fracture prevention: * T-score <= - 2.5 at the femoral neck, total hip, lumbar spine, 33% radius (some uncertainty with existing data) by DXA. * Low bone mass (osteopenia: T-score between - 1.0 and - 2.5) at the femoral neck or total hip by DXA with a 10-year hip fracture risk >= 3% or a 10-year major osteoporosis-related fracture risk >= 20% (i.e., clinical vertebral, hip, forearm, or proximal humerus) based on the [place]-adapted FRAXregistered model. Secondary fracture prevention: * Fracture of the hip or vertebra regardless of BMD [4, 5]. * Fracture of proximal humerus, pelvis, or distal forearm in persons with low bone mass (osteopenia: T-score between - 1.0 and - 2.5). The decision to treat should be individualized in persons with a fracture of the proximal humerus, pelvis, or distal forearm who do not have osteopenia or low BMD [12, 13]. Lizbeth MS, Ananda SL, Dominique KL, Arvin EM, Chelsy KG, AJ, Clay ES. The clinician's guide to prevention and treatment of osteoporosis. Osteoporos Int. 2021;33(10):2302-4937. doi: 10.1007/j11260-995-79759-l. Epub 2021Jan 15. Erratum in: Osteoporos Int. 2021Apr 16;: PMID: [id number]; PMCID: [id number]. Electronically authenticated by: RADHA SABILLON Date: 08/09/2024 03:52
--- NOTE | 2024-08-08 10:42 | US_ITS ---
The [address] [address] Patient Name: JEANETTE COCHRAN MRN: [id number] date: 1955 Sex: F Assigned Patient Location: US Current Patient Location: US Accession/Order Number: [id number] Exam Date: 08/08/2024 10:45 Report Date: 08/09/2024 04:14 At the request of: KAREN PELAYO Procedure: US pelvis w/ transvaginal EXAMINATION: US pelvis w/ transvaginal HISTORY: Uterine Cyst COMPARISON: Ultrasound pelvis 09/18/2019 TECHNIQUE: Transabdominal and/or transvaginal sonographic examination was performed as indicated by examination type. FINDINGS: UTERUS: Within left uterine body is an 8 mm hyperechoic structure; likely a calcified leiomyoma. Adjacent to this is a 9 mm hypoechoic structure suspected represent a leiomyoma. Normal size and contour of the uterus. Uterus size: 4.8 x 1.9 x 2.4 cm ENDOMETRIUM: Normal homogeneous appearance. Endometrial thickness: 1 mm RIGHT OVARY: Contains a questionable 6 mm slightly hyperechoic area. Duplex Doppler demonstrates normal waveform and flow; resistive index 1.0. Ovary size: 1.3 x 0.5 x 1.3 cm LEFT OVARY: Not seen. CUL-DE-SAC: Unremarkable. No significant free fluid. BLADDER: Unremarkable. OTHER: None. US/US pelvis w/ transvaginal IMPRESSION: 1. No appreciable uterine cyst. There are 2 small structures within left myometrial wall favoring leiomyomas. Electronically authenticated by: RADHA SABILLON Date: 08/09/2024 04:14
--- OUTSIDE RECORDS SUMMARY | 2024-08-08 10:50 | XMS_ITS | CCD ---
Author Organization [facility] Care Team Providers Care Wine Bottle Inspector Name Role Phone PALOMARES, EBER J Referring Unavailable PALOMARES, EBER J Primary Care Unavailable RADIOLOGIST, MTH GEN Attending Unavailable PALOMARES, EBER J Referring Unavailable PALOMARES, EBER J Primary Care Unavailable RADHA CARVALHO Admitting Unavailable RADHA CARVALHO Attending Unavailable PALOMARES, EBER J Primary Care Unavailable PALOMARES, EBER J Referring Unavailable PALOMARES, EBER J Primary Care Unavailable Palomares, Peck J Primary Care Provider DO Conner Stanley Primary Care Provider DO Conner Stanley Attending Provider None, No PCP Unavailable Unavailable Henrique Vail Referring Unavailable Henrique Vail Attending Unavailable DO Conner Stanley Primary Care Provider MD Henrique Vail Attending Provider MD Roz Aguilera Attending Provider [phone] DO Conner Stanley Referring Provider [phone] Self, Referral Attending Provider Unavailable DR PATRICK VENTURA V Attending Unavailable LORENZO, DR PATRICK Yeh Consulting Unavailable LORENZO, DR PATRICK Yeh Admitting Unavailable EDYTA ., DR ZAVALA Attending Unavailable EDYTA ., DR ZAVALA Consulting Unavailable EDYTA ., DR ZAVALA Admitting Unavailable EDYTA ., DR ZAVALA Admitting Unavailable EDYTA ., DR ZAVALA Attending Unavailable EDYTA ., DR ZAVALA Consulting Unavailable ZIEBVIMAL, DR RADHA Lawton Consulting Unavailable DO Conner Stanley Primary Care Provider [phone] RYAN Kovacs Emergency Provider [phone] DO Carlin Godfrey Emergency Provider [phone] Lisandro Kovacs Admitting Unavailable Lisandro Kovacs Attending Unavailable Vaschak, [place] Primary Care Unavailable Lisandro Kovacs Admitting Unavailable Lisandro Kovacs Attending Unavailable Vaschak, [facility] Unavailable Vaschak, [facility] Unavailable Benedicto Lan Referring Unavailable Self, Referral Admitting Unavailable Self, Referral Attending Unavailable Carlin Godfrey Attending Unavailable [facility] Unavailable Carlin Godfrey Admitting Unavailable [facility] Conner SULLIVAN [place] Unavailable Rosieion Kierra DAVIS Unavailable Vaschak DO, [facility] Primary Care Provider LINDA HODGE Attending Unavailable VASCHAK, [facility] Unavailab le Vaschak DO, Conner Primary Care Provider [phone] Conner Stanley DO Unavailable CONNER STANLEY Referring Unavailable KIERRA POSADAS Attending [facility] Referring Unavailable VASCHACONNER Arroyo Attending Unavailable EMELI JUAN Attending Unavailable BENEDICTO LAN Attending Unavailable VASCHAK, [facility] Care Unavailab le VASCHAK, [facility] Care Unavailab le JACOBEBONIE Attending Unavailable VASCHAK, [facility] Care Unavailab le VASCHAK, [facility] Care Unavailab le VASCHAK, [facility] Care Unavailab le VASCHAK, [facility] Care Unavailab le VASCHAK, [facility] Care Unavailab le JACOBEOBNIE Attending Unavailable VASCHAK, [facility] Care Unavailab le JACOBEBONIE Attending Unavailable SELF Referring Unavailable VASCHAK, [facility] Care Unavailab le VASCHAK, [facility] Care Unavailab le VASCHAK, [facility] Care Unavailab le JACOB, EBONIE MARQUES Referring Unavailable VASCHAK, [facility] Care Unavailab le JACOB, EBONIE MARQUES Referring Unavailable VASCHAK, [facility] Unavailab le JACOBEBONIE Attending Unavailable LINDA HODGE Referring Unavailable LEX, [facility] Unavailab HOMERO Ingram Admitting Unavailable HOMERO PETTY Attending Unavailable SELF Referring Unavailable JACINTARAISACruzCONNER TORIBIO Primary [facility] Unavailab le SELF Referring Unavailable [facility] Unavailab le Allergies Allergy Classification Reported Allergen(s) Allergy Type Date of Onset Reaction(s) Facility (20 sources) Lactase; Translations: [LACTASE] Drug Allergy 9 [facility] (20 sources) Wheat preparation; Translations: [WHEAT] Drug Allergy 9 [facility] (3 sources) diphenhydrAMINE Drug Allergy 3 [facility] (3 sources) Gluten Allergy to substance 3 [facility] (3 sources) WHEAT DEXTRIN Drug Allergy 9 [facility] Medications Current Medications Medication Drug Class(es) Dates Sig (Normalized) Sig (Original) amylase 289634 unt / lipase 9000 unt / protease [id number] unt oral capsule (3 sources) Digestive Enzyme capsule as directed Orally Active bacillus subtilis [id number] unt / inulin 1000 mg chewable tablet (3 sources) Probiotic chewab le tablet as directed Orally Active calcium carbonate 1500 mg oral tablet (3 sources) take 1 tablet by mouth in the morning calcium carbonate 1500 (600 Ca) MG tablet Take 1,500 mg by mouth in the morning. Active cholecalciferol 0.025 mg oral capsule (20 sources) Vitamin D take 1 capsule by mouth once daily Cholecalciferol, Vitamin D3, 25 mcg (1,000 unit) cap Take 1,000 Units by mouth once daily. Active take 1 tablet by mouth in the mo rning cholecalciferol (Vitamin D-3) 20 MCG (800 UNIT) tablet Take 800 Units by mouth in the morning. Active cholecalciferol, vitamin D3, (VITAMIN D3 ORAL) (7 sources) cholecalciferol, vitamin D3, (VITAMIN D3 ORAL) Take by mouth. 0 Active desoximetasone 0.5 mg/ml topical cream (3 sources) Corticosteroid Start: 024 Desoximetasone (Topicort) 0.05 % cream Active 1 APPLIC TOPICAL Twice daily 100 March 25, 2024 12:00am fexofenadine hydrochloride 60 mg oral tablet (20 sources) Histamine-1 Receptor Antagonist take 1 tablet by mouth once daily fexofenadine (SHANTELLE) 60 mg tablet Take 60 mg by mouth once daily. Active hydrOXYzine hydrochloride 25 mg oral tablet (20 sources) Antihistamine Start: End: take 1 tablet by mouth every eight hours as needed hydrOXYzine HCl (ATARAX) 25 mg tablet Take 1 tablet by mouth every 8 hours as needed for itching/rash for up to 7 days. 21 tablet 05/10/2024 05/18/2024 Active Start: 04-21-2024 take 1 tablet by morgan every twenty-four hours as needed hydrOXYzine HCl (ATARAX) 10 mg tablet Take 10 mg by mouth at bedtime as needed for itching/rash. 04/21/2024 Suspended Start: 04-08-2024 take 25 mg by mouth every six hours Hydroxyzine Hcl Active 25 MG PO Q6H April 08, 2024 12:00am Start: 03-25-2024 hydrOXYzine HC l (ATARAX) 25 mg tablet Hydroxyzine Hcl Active 25 MG PO Q6H April 08, 2024 12:00am 03/25/2024 Active Start: 03-25-2024 Hydroxyzine Hc l Active MG TABLET March 25, 2024 12:00am Lactobacillus acidophilus (20 sources) take 1 capsule by mo [facility] once daily Lactobacillus acidophilus (PROBIOTIC ORAL) Take 1 capsule by mouth once daily. Active take 1 capsule by mouth once yen ly Lactobacillus acidophilus (PROBIOTIC ORAL) Take 1 capsule by mouth once daily. Suspended Lactobacillus ac idophilus (PROBIOTIC ORAL) Take by mouth. 0 Active Magnesium (3 sources) magnesium 200 MG tablet 200 mg 1 (one) time each day at the same time. Active methylPREDNISolone 4 mg oral tablet (1 source) Corticosteroid Start: 2023 Methylprednisolone (Medrol (Silverio)) 4 mg tablets,dose pack Active 0 PO .COMPLEX April 08, 2024 12:00am for 6 days Multiple Vitamin (Multi Vitamin) tablet (3 sources) Multiple Vitamin (Multi Vitamin) tablet 1 (one) time each day at the same time. Active pantoprazole 40 mg delayed release oral tablet (20 sources) Proton Pump Inhibitor Start: 2023 End: 2023 take 1 tablet by mouth once daily in the morning pantoprazole DR (PROTONIX) 40 mg tablet Take 1 tablet by mouth daily at 6 am. Patient should start on May 11, 2024. 30 tablet 2 05/11/2024 08/09/2024 Active petrolatum 0.41 mg/mg topical ointment (20 sources) Start: 2023 End: 2023 white petrolatum (AQUAPHOR) 41 % topical ointment Apply to affected area as needed. 396 g 1 05/10/2024 Active predniSONE 10 mg oral tablet (19 sources) Start: 2023 End: 2023 take 2 tablets by mouth once daily predniSONE (DELTASONE) 10 mg tablet Indications: Rash and nonspecific skin eruption Take 2 tablets by mouth once daily. 60 tablet 07/27/2024 08/26/2024 Active Start: 07-04-2024 End: 07-17-2024 take 2 tablets by mouth once daily, then take 1 tablet by mouth once daily predniSONE (Deltasone) 10 MG tablet TAKE 2 TABLETS BY MOUTH DAILY FOR 7 DAYS, then TAKE 1 TABLET BY MOUTH DAILY FOR 7 DAYS 07/04/2024 Active Start: 06-05-2024 End: 06-25-2024 take 6 tablets by mouth once daily, then take 4 tablets by mouth once daily, then take 2 tablets by mouth once daily, then take 1 tablet by mouth once daily predniSONE (DELTASONE) 10 mg tablet Indications: Rash and nonspecific skin eruption Take 6 tablets by mouth once daily for 5 days, THEN 4 tablets once daily for 5 days, THEN 2 tablets once daily for 5 days, THEN 1 tablet once daily for 5 days. 65 tablet 06/05/2024 06/25/2024 Active Start: 05-10-2024 End: 06-14-2024 predniSONE (DELTASONE) 10 mg tablet Take 6 tablets by mouth two times a day for 6 days, THEN 6 tablets once daily for 7 days, THEN two and a half tablet once daily for 7 days, THEN 1 tablet once daily for 7 days, THEN a half tablet once daily for 7 days. 142 tablet 05/10/2024 06/05/2024 Discontinued triamcinolone acetonide 1 mg/ml topical cream (20 sources) Corticosteroid Start: 06-09-2024 triamcinolone (Kenalog) 0.1 % cream Indications: Dermatitis APPLY TO THE AFFECTED AREA(S) topically 2-3 times DAILY NEEDED *avoid face and groin* 454 g 1 06/09/2024 Active Start: 05-10-2024 End: 08-08-2024 triamcinolone acetonide (RAGINI ALOG) 0.1 % ointment Apply to affected area two times a day. 454 g 2 05/10/2024 08/08/2024 Active Start: 05-10-2024 End: 08-08-2024 triamcinolone (Kenalog) 0.1 % ointment Apply topically twice a day 05/10/2024 08/08/2024 Active Completed/Discontinued Medications Medication Drug Class(es) Dates Sig (Normalized) Sig (Original) sulfamethoxazole 800 mg / trimethoprim 160 mg oral tablet (4 sources) Dihydrofolate Reductase Inhibitor Antibacterial, Sulfonamide Antimicrobial Start: 05-03-2024 End: 05-13-2024 take 1 tablet by mouth every twelve hours sulfamethoxazol e-trimethoprim (BACTRIM DS) 800-160 mg per tablet Take 1 tablet by mouth every 12 hours. 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] Onset: 05-06-2024 05-06-2024 Chronic Menopausal disorders (3 sources) Disorder associated with menstruation AND/OR menopause; Translations: [Menopausal and female climacteric states] Onset: 06-25-2023 06-25-2023 Chronic Nonmalignant breast conditions (3 sources) Mastodynia; Translations: [Bilateral cyst of breasts] Onset: 03-29-2022 07-24-2024 Episodic Osteoarthritis (6 sources) Degenerative joint disease involving multiple joints; Translations: [Primary generalized (osteo)arthritis] Onset: 07-19-2023 Resolved: 04-28-2024 07-19-2023 Chronic Osteoporosis (20 sources) Age-related osteoporosis without current pathological fracture; Translations: [Senile osteoporosis] Onset: 03-29-2022 05-06-2024 Chronic Other aftercare (1 source) terminal carman (current) use of systemic steroids; Translations: [Current chronic use of systemic steroids] Onset: 04-28-2024 Episodic Other female genital disorders (2 sources) Cyst of uterus; Translations: [Other specified noninflammatory disorders of uterus] 07-24-2024 Episodic Other infections; including parasitic (2 sources) H/O: skin disorder; Translations: [Personal history of other infectious and parasitic diseases] 04-04-2024 Episodic Other inflammatory condition of skin (1 source) Pruritus, unspecified; Translations: [Pruritus] Onset: 04-28-2024 Episodic Other screening for suspected conditions (not mental disorders or infectious disease) (1 source) Radiology result abnormal; Translations: [Other nonspecific (abnormal) findings on radiological and other examinations of body structure] Chronic Other screening for suspected conditions (not mental disorders or infectious disease) (7 sources) Mammography abnormal; Translations: [Encounter for screening for malignant neoplasm of cervix] Onset: 03-16-2022 Episodic Residual codes; unclassified (2 sources) Edema; Translations: [Edema, unspecified] 04-04-2024 Episodic Residual codes; unclassified (2 sources) Postmenopausal state; Translations: [Asymptomatic menopausal state] 07-24-2024 Episodic Unclassified (1 source) Encounter for screening mammogram [...] [ENC SCREENING HUMAN PAPILLOMAVIRUS] Onset: 03-19-2022 Episodic Lymphadenitis (20 sources) Lymphadenopathy; Translations: [Generalized enlarged lymph nodes] Onset: 05-06-2024 05-06-2024 Episodic Other inflammatory condition of skin (1 source) Erythematous condition, unspecified; Translations: [Erythroderma] Onset: 05-05-2024 Episodic Other non-traumatic joint disorders (3 sources) Derangement of right sacroiliac joint; Translations: [Joint derangement, unspecified] Onset: 07-19-2023 Resolved: 04-28-2024 04-28-2024 Episodic Other skin disorders (20 sources) Eruption; Translations: [Rash and other nonspecific skin eruption] Onset: 05-05-2024 03-25-2024 Episodic Other skin disorders (4 sources) Rash and other nonspecific skin eruption; Translations: [Rash and other nonspecific skin eruption] Onset: 04-04-2024 Episodic Residual codes; unclassified (4 sources) Asymptomatic menopausal state; Translations: [ASYMPTOMATIC MENOPAUSAL STATE] Onset: 03-24-2022 Episodic Residual codes; unclassified (3 sources) Family history of malignant neoplasm of pancreas; Translations: [Family history of malignant neoplasm of digestive organs] Onset: 07-19-2023 Resolved: 04-28-2024 04-28-2024 Episodic Unclassified (1 source) Patient encounter status; Translations: [Colon cancer screening] Onset: 03-02-2019 Resolved: 04-11-2019 04-11-2019 Results Test Name Value Interpretation Reference Range Facility [facility] 08-04-2024 CNNURSE Nurse Visit (DERMAV) MIRIAN CORRALES ([id number]) 1955 F Date Time Provider Department 08/04/24 2:40 PM NURSE DERM [facility] REJ DERMAV During your visit today, we recorded the following information about you: Sonam Freitas RN 08/04/2024 2:52 PM Signed Pt is identified by name and birthdate: Yes Allergies reviewed: Yes Medication - prescribed and OTC reviewed and updated: Yes Latex allergy: no. Is the patient having any pain? No 0 on a scale of 0 to 10 See flow sheet for treatment record. Protective eyewear given and worn. 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 - hydrOXYzine HCl (ATARAX) 25 mg tablet Hydroxyzine Hcl Active 25 MG PO Q6H 30 April 08, 2024 12:00am - triamcinolone acetonide (KENALOG) 0.1 % ointment Apply to affected area two times a day. - white petrolatum (AQUAPHOR) 41 % topical ointment Apply to affected area as needed. - pantoprazole DR (PROTONIX) 40 mg tablet Take 1 tablet by mouth daily at 6 am. Patient should start on May 11, 2024. - fexofenadine (SHANTELLE) 60 mg tablet Take 60 mg by mouth once daily. - Lactobacillus acidophilus (PROBIOTIC ORAL) Take 1 capsule by mouth once daily. - Cholecalciferol, Vitamin D3, 25 mcg (1,000 unit) cap Take 1,000 Units by mouth once daily. 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] 05/06/2024 Age-related osteoporosis without current pathol*05/06/2024 Lymphadenopathy [R59.1] 05/06/2024 Eosinophilia [D72.10] 05/08/2024 Eczema [L30.9] 05/08/2024 Peripheral eosinophilia [D72.19] 05/09/2024 Questionnaire: DERMATOLOGY PHOTOTHERAPY TX DX -> spongiotic dermatitis ORDERING PHYSICIAN -> Cmt: Jacob TX TYPE -> NARROW BAND UVB (MJ/CM2) TX FREQ -> 3X/WK INITIAL DOSE -> 300 mj/cm2 MAX DOSE -> 3000 mj/cm2 INCREASE BY -> 25-50 mj/cm2 TX# -> 9 DOSE -> 245 mj/cm2 DOSE ADJ -> no change COMMENTS: -> pt tolerated without issue Encounter Status:[facility]DERMAV[facility] MIRIAN CORRALES ([id number]) 1955 F Date Time Provider Department 08/02/24 1:20 PM NURSE DERM [facility] REJ DERMAV During your visit today, we recorded the following information about you: Kierra Willis RN 08/02/2024 1:45 PM Signed Pt is identified by name and birthdate: Yes Allergies reviewed: Yes Medication - prescribed and OTC reviewed and updated: Yes Latex allergy: no. Is the patient having any pain? No 0 on a scale of 0 to 10 See flow sheet for treatment record. Protective eyewear given and worn. 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 - hydrOXYzine HCl (ATARAX) 25 mg tablet Hydroxyzine Hcl Active 25 MG PO Q6H April 08, 2024 12:00am - triamcinolone acetonide (KENALOG) 0.1 % ointment Apply to affected area two times a day. - white petrolatum (AQUAPHOR) 41 % topical ointment Apply to affected area as needed. - pantoprazole DR (PROTONIX) 40 mg tablet Take 1 tablet by mouth daily at 6 am. Patient should start on May 11, 2024. - fexofenadine (SHANTELLE) 60 mg tablet Take 60 mg by mouth once daily. - Lactobacillus acidophilus (PROBIOTIC ORAL) Take 1 capsule by mouth once daily. - Cholecalciferol, Vitamin D3, 25 mcg (1,000 unit) cap Take 1,000 Units by mouth once daily. 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] 05/06/2024 Age-related osteoporosis without current pathol*05/06/2024 Lymphadenopathy [R59.1] 05/06/2024 Eosinophilia [D72.10] 05/08/2024 Eczema [L30.9] 05/08/2024 Peripheral eosinophilia [D72.19] 05/09/2024 Questionnaire: DERMATOLOGY PHOTOTHERAPY TX DX -> spongiotic dermatitis ORDERING PHYSICIAN -> Cmt: jacob SAHU TYPE -> NARROW BAND UVB (MJ/CM2) TX FREQ -> 3X/WK INITIAL DOSE -> Cmt: 300 MAX DOSE -> Cmt: 3000 INCREASE BY -> Cmt: 50 TX# -> Cmt: 8 DOSE -> Cmt: 245mj/cm2 DOSE ADJ -> Cmt: same COMMENTS: -> Cmt: Pt still having moderate erythema after each visit would like to stay at same dose today. Encounter Status:Closed by KIERRA WILLIS on 08/02/24 [facility] 07-31-2024 CNNURSE Nurse Visit (DERMAV) MIRIAN CORRALES ([id number]) 1955 F Date Time Provider Department 07/31/24 3:20 PM NURSE DERM [facility] REJ DERMAV During your visit today, we recorded the following information about you: Evangelina Jiang RN 07/31/2024 3:22 PM Signed Pt is identified by name and birthdate: Yes Allergies reviewed: Yes Medication - prescribed and OTC reviewed and updated: Yes Latex allergy: no. Is the patient having any pain? No 0 on a scale of 0 to 10 See flow sheet for treatment record. Protective eyewear given and worn. 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 - hydrOXYzine HCl (ATARAX) 25 mg tablet Hydroxyzine Hcl Active 25 MG PO Q6H April 08, 2024 12:00am - triamcinolone acetonide (KENALOG) 0.1 % ointment Apply to affected area two times a day. - white petrolatum (AQUAPHOR) 41 % topical ointment Apply to affected area as needed. - pantoprazole DR (PROTONIX) 40 mg tablet Take 1 tablet by mouth daily at 6 am. Patient should start on May 11, 2024. - fexofenadine (SHANTELLE) 60 mg tablet Take 60 mg by mouth once daily. - Lactobacillus acidophilus (PROBIOTIC ORAL) Take 1 capsule by mouth once daily. - Cholecalciferol, Vitamin D3, 25 mcg (1,000 unit) cap Take 1,000 Units by mouth once daily. 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 james TX TYPE -> NARROW BAND UVB (MJ/CM2) TX FREQ -> 3X/WK INITIAL DOSE -> 300mj/cm2 MAX DOSE -> 3000mj/cm2 INCREASE BY -> 50mj/cm2 TX# -> 7 DOSE -> 245mj/cm2 DOSE ADJ -> same COMMENTS: -> pt c/o mild erythema after LV Encounter Status:Closed by EVANGELINA JIANG on 07/31/24 [facility] 07-28-2024 CNNURSE Nurse Visit (DERMAV) MIRIAN CORRALES ([id number]) 1955 F Date Time Provider Department 07/28/24 3:20 PM NURSE DERM [facility] REJ DERMAV During your visit today, we recorded the following information about you: Evangelina Jiang RN 07/28/2024 2:53 PM Signed Pt is identified by name and birthdate: Yes Allergies reviewed: Yes Medication - prescribed and OTC reviewed and updated: Yes Latex allergy: no. Is the patient having any pain? No 0 on a scale of 0 to 10 See flow sheet for treatment record. Protective eyewear given and worn. 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 - hydrOXYzine HCl (ATARAX) 25 mg tablet Hydroxyzine Hcl Active 25 MG PO Q6H April 08, 2024 12:00am - triamcinolone acetonide (KENALOG) 0.1 % ointment Apply to affected area two times a day. - white petrolatum (AQUAPHOR) 41 % topical ointment Apply to affected area as needed. - pantoprazole DR (PROTONIX) 40 mg tablet Take 1 tablet by mouth daily at 6 am. Patient should start on May 11, 2024. - fexofenadine (SHANTELLE) 60 mg tablet Take 60 mg by mouth once daily. - Lactobacillus acidophilus (PROBIOTIC ORAL) Take 1 capsule by mouth once daily. - Cholecalciferol, Vitamin D3, 25 mcg (1,000 unit) cap Take 1,000 Units by mouth once daily. 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 james TX TYPE -> NARROW BAND UVB (MJ/CM2) TX FREQ -> 3X/WK INITIAL DOSE -> 220mj/cm2 MAX DOSE -> 3000mj/cm2 INCREASE BY -> 25mj/cm2 TX# -> 6 DOSE -> 245mj/cm2 DOSE ADJ -> same COMMENTS: -> pt tolerating well. C/o slight erythema after LV Encounter Status:Closed by EVANGELINA JIANG on 07/28/24 [facility] CNOVon 07-28-2024 CNOV Office Visit (DERMWH ) MIRIAN CORRALES ([id number]) 1955 F Date Time Provider Department 07/28/24 9:30 AM EBONIE JAMES DERMPRATIMA During your visit today, we recorded the following information about you: Dl Matthews LPN 07/28/2024 9:50 AM Addendum Continue Narrowband UVB therapy, Prednisone in reserve if patient flares Methotrexate in reserve Ebonie James MD 07/28/2024 12:21 PM Signed Established patient CHIEF COMPLAINT: Rash follow up HISTORY OF PRESENT ILLNESS: Mirianlisa Corrales is a 68 year old female here for evaluation of Rash. Rash is returning. Patient states it comes and goes. Rash is still very itchy. She has light Tx scheduled for this afternoon. Ears are very dry and crusty. LCV: 06/20/2024 Provider: Ebonie James MD Found to have: #Rash and nonspecific skin eruption, with prior biopsy showing spongiotic dermatitis - Scheduled for patch testing on 08/14/[address] Latham - Complete oral prednisone taper as previously prescribed: 40 mg x 5 days, 20 mg x 5 days, then 10 mg x 5 days - Continue Protonix and vitamin D supplement while on prednisone - Plan to start nbUVB Personal Dermatologic History History of skin cancer: No History of actinic keratoses: No History of atypical nevi: No History of immunosuppression: Yes History of blistering sunburns: Yes FAMILY HISTORY: History of melanoma: Father and niece Past Medical History No past medical history on file. REVIEW OF SYSTEMS: Constitutional: Denies fever, chills, unintentional weight loss. Skin as per HPI Medications Current Outpatient Medications Medication Sig predniSONE (DELTASONE) 10 mg tablet Take 2 tablets by mouth once daily. hydrOXYzine HCl (ATARAX) 25 mg tablet Hydroxyzine Hcl Active 25 MG PO Q6H April 08, 2024 12:00am triamcinolone acetonide (KENALOG) 0.1 % ointment Apply to affected area two times a day. white petrolatum (AQUAPHOR) 41 % topical ointment Apply to affected area as needed. pantoprazole DR (PROTONIX) 40 mg tablet Take 1 tablet by mouth daily at 6 am. Patient should start on May 11, 2024. fexofenadine (SHANTELLE) 60 mg tablet Take 60 mg by mouth once daily. Lactobacillus acidophilus (PROBIOTIC ORAL) Take 1 capsule by mouth once daily. Cholecalciferol, Vitamin D3, 25 mcg (1,000 unit) cap Take 1,000 Units by mouth once daily. No current facility-administered medications for this visit. 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 -continue Narrowband UVB light Tx~hold dose at 245 -Methotrexate in reserve -Prednisone in reserve if patient starts flaring For symptomatic relief: - Triamcinolone 0.1% ointment twice daily to affected areas on body Wednesday-Wednesday with flares. Take weekends off. Avoid use on face, breasts, groin, or axiillae. Counseled patient regarding side effects of topical steroids including, but are not limited to: atrophy, striae, telangectasias, tachyphylaxis, pigmentary changes, as well as risk of cataracts and glaucoma with periocular use. Informed patient that topical steroids should only be used on active skin lesions and not on normal skin. - Discussed gentle skin care and recommend liberal use of emollients (Aquaphor, Hydrolatum, Vaseline, Eucerin) multiple times throughout the day. Recommended sunscreen SPF 30 or above and sun protective clothing. Patient advised of potential adverse effects of any medications discussed above and what to do if patient experiences any of these, including contacting clinic. Answered all questions. Patient expressed understanding. Return to clinic: PRN The patient is seen and examined by Dr. Ebonie James MD and the following reflects his/her service. Scribed by Dl Matthews LPN I agree with the Chief Complaint, ROS, and Past Histories independently gathered by the clinical pit crew support worker and the remaining scribed note accurately describes my personal service to the patient. Ebonie James MD Referring Provider: SELF [[id number]] Allergies As of Date: 07/28/2024 Noted Allergy Reaction WHEAT 08/24/2019 7 - Swelling DAIRY AID (LACTASE) 08/24/2019 7 - Swelling Comments: Bloating Date Reviewed: 07/28/2024 Reviewed by: Dl Matthews LPN - Fully Assessed Reason for Visit: Rash [ (more content not included)... Normal [facility] CNNURSEon 07-26-2024 CNNURSE Nurse Visit (DERMAV) MIRIAN CORRALES ([id number]) 1955 F Date Time Provider Department 07/26/24 3:20 PM NURSE DERM [facility] MORENO CORTES During your visit today, we recorded the following information about you: Austin Boss RN 07/26/2024 3:45 PM Signed Pt is identified by name and birthdate: Yes Allergies reviewed: Yes Medication - prescribed and OTC reviewed and updated: Yes Latex allergy: no. Is the patient having any pain? No 0 on a scale of 0 to 10 See flow sheet for treatment record. Protective eyewear given and worn. Patient states rash is worse, has an appt Wednesday with provider. Austin Boss RN July 26, 2024 3:34 PM Referring Provider: SELF [[id number]] Allergies As of Date: 07/26/2024 Noted Allergy Reaction WHEAT 08/24/2019 7 - Swelling DAIRY AID (LACTASE) 08/24/2019 7 - Swelling Comments: Bloating Date Reviewed: 07/26/2024 Reviewed by: Austin Boss RN - Fully Assessed Reason for Visit: Light Treatments [1093] Primary Visit Diagnosis:Spongiotic dermatitis [L30.8] Prescriptions as of 07/26/2024 - hydrOXYzine HCl (ATARAX) 25 mg tablet Hydroxyzine Hcl Active 25 MG PO Q6H April 08, 2024 12:00am - triamcinolone acetonide (KENALOG) 0.1 % ointment Apply to affected area two times a day. - white petrolatum (AQUAPHOR) 41 % topical ointment Apply to affected area as needed. - pantoprazole DR (PROTONIX) 40 mg tablet Take 1 tablet by mouth daily at 6 am. Patient should start on May 11, 2024. - fexofenadine (SHANTELLE) 60 mg tablet Take 60 mg by mouth once daily. - Lactobacillus acidophilus (PROBIOTIC ORAL) Take 1 capsule by mouth once daily. - Cholecalciferol, Vitamin D3, 25 mcg (1,000 unit) cap Take 1,000 Units by mouth once daily. 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] 05/06/2024 Age-related osteoporosis without current pathol*05/06/2024 Lymphadenopathy [R59.1] 05/06/2024 Eosinophilia [D72.10] 05/08/2024 Eczema [L30.9] 05/08/2024 Peripheral eosinophilia [D72.19] 05/09/2024 Questionnaire: DERMATOLOGY PHOTOTHERAPY TX DX -> spongiotic dermatitis ORDERING PHYSICIAN -> Cmt: Jacob SAHU TYPE -> NARROW BAND UVB (MJ/CM2) TX FREQ -> 3X/WK INITIAL DOSE -> 220 MAX DOSE -> 3000 INCREASE BY -> 25 TX# -> 5 DOSE -> 245 DOSE ADJ -> increased by 25 COMMENTS: -> pt states rash is worse,per pt provider aware anto cont uvb until Wednesday appt Encounter Status:Closed by AUSTIN BOSS on 07/26/24 [facility] 07-24-2024 [facility] Nurse Visit (DERMAV) MIRIAN CORRALES ([id number]) 1955 F Date Time Provider Department 07/24/24 8:20 AM NURSE DERM [facility] REJ DERMJUSTYNA During your visit today, we recorded the following information about you: Sonam Freitas RN 07/24/2024 8:12 AM Signed Pt is identified by name and birthdate: Yes Allergies reviewed: Yes Medication - prescribed and OTC reviewed and updated: Yes Latex allergy: no. Is the patient having any pain? No 0 on a scale of 0 to 10 See flow sheet for treatment record. Protective eyewear given and worn. Sonam Freitas RN July 24, 2024 8:11 AM Referring Provider: SELF [[id number]] Allergies As of Date: 07/24/2024 Noted Allergy Reaction WHEAT 08/24/2019 7 - Swelling DAIRY AID (LACTASE) 08/24/2019 7 - Swelling Comments: Bloating Date Reviewed: 07/24/2024 Reviewed by: Sonam Freitas RN - Fully Assessed Reason for Visit: Light Treatments [1093] Primary Visit Diagnosis:Spongiotic dermatitis [L30.8] Prescriptions as of 07/24/2024 - hydrOXYzine HCl (ATARAX) 25 mg tablet Hydroxyzine Hcl Active 25 MG PO Q6H April 08, 2024 12:00am - triamcinolone acetonide (KENALOG) 0.1 % ointment Apply to affected area two times a day. - white petrolatum (AQUAPHOR) 41 % topical ointment Apply to affected area as needed. - pantoprazole DR (PROTONIX) 40 mg tablet Take 1 tablet by mouth daily at 6 am. Patient should start on May 11, 2024. - fexofenadine (SHANTELLE) 60 mg tablet Take 60 mg by mouth once daily. - Lactobacillus acidophilus (PROBIOTIC ORAL) Take 1 capsule by mouth once daily. - Cholecalciferol, Vitamin D3, 25 mcg (1,000 unit) cap Take 1,000 Units by mouth once daily. 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] 05/06/2024 Age-related osteoporosis without current pathol*05/06/2024 Lymphadenopathy [R59.1] 05/06/2024 Eosinophilia [D72.10] 05/08/2024 Eczema [L30.9] 05/08/2024 Peripheral eosinophilia [D72.19] 05/09/2024 Questionnaire: DERMATOLOGY PHOTOTHERAPY TX DX -> spongiotic dermatitis ORDERING PHYSICIAN -> Cmt: Jacob TX TYPE -> NARROW BAND UVB (MJ/CM2) TX FREQ -> 3X/WK INITIAL DOSE -> 300 mj/cm2 MAX DOSE -> 3000 mj/cm2 INCREASE BY -> 25 mj/cm2 TX# -> 4 DOSE -> 220 mj/cm2 DOSE ADJ -> no changw COMMENTS: -> pt tolerated without issue Encounter Status:Closed by SONAM FREITAS on 07/24/24 [facility] CNNURSEon 07-21-2024 CNNURSE Nurse Visit (DERMAV) MIRIAN CORRALES ([id number]) 1955 F Date Time Provider Department 07/21/24 3:00 PM NURSE DERM [facility] REJ DERMAV During your visit today, we recorded the following information about you: Kierra Willis RN 07/21/2024 3:13 PM Signed Pt is identified by name and birthdate: Yes Allergies reviewed: Yes Medication - prescribed and OTC reviewed and updated: Yes Latex allergy: no. Is the patient having any pain? No 0 on a scale of 0 to 10 See flow sheet for treatment record. Protective eyewear given and worn. Kierra Willis RN July 21, 2024 3:02 PM Referring Provider: SELF [[id number]] Allergies As of Date: 07/21/2024 Noted Allergy Reaction WHEAT 08/24/2019 7 - Swelling DAIRY AID (LACTASE) 08/24/2019 7 - Swelling Comments: Bloating Date Reviewed: 07/21/2024 Reviewed by: Kierra Willis RN - Fully Assessed Reason for Visit: Light Treatments [1093] Primary Visit Diagnosis:Spongiotic dermatitis [L30.8] Prescriptions as of 07/21/2024 - hydrOXYzine HCl (ATARAX) 25 mg tablet Hydroxyzine Hcl Active 25 MG PO Q6H April 08, 2024 12:00am - triamcinolone acetonide (KENALOG) 0.1 % ointment Apply to affected area two times a day. - white petrolatum (AQUAPHOR) 41 % topical ointment Apply to affected area as needed. - pantoprazole DR (PROTONIX) 40 mg tablet Take 1 tablet by mouth daily at 6 am. Patient should start on May 11, 2024. - fexofenadine (SHANTELLE) 60 mg tablet Take 60 mg by mouth once daily. - Lactobacillus acidophilus (PROBIOTIC ORAL) Take 1 capsule by mouth once daily. - Cholecalciferol, Vitamin D3, 25 mcg (1,000 unit) cap Take 1,000 Units by mouth once daily. 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 James. Encounter Status:Closed by KIERRA WILLIS on 07/21/24 [facility] 07-19-2024 CNNURSE Nurse Visit (DERMAV) MIRIAN CORRALES ([id number]) 1955 F Date Time Provider Department 07/19/24 3:20 PM NURSE DERM [facility] MORENO CORTES During your visit today, we recorded the following information about you: Austin Boss RN 07/19/2024 3:40 PM Signed no show Referring Provider: SELF [200] Allergies As of Date: 07/19/2024 Noted Allergy Reaction WHEAT 08/24/2019 7 - Swelling DAIRY AID (LACTASE) 08/24/2019 7 - Swelling Comments: Bloating Date Reviewed: 07/19/2024 Reviewed by: Austin Boss RN - Fully Assessed Reason for Visit: Light Treatments [1093] Cmt: uvb Primary Visit Diagnosis:Spongiotic dermatitis [L30.8] Prescriptions as of 07/19/2024 - hydrOXYzine HCl (ATARAX) 25 mg tablet Hydroxyzine Hcl Active 25 MG PO Q6H April 08, 2024 12:00am - triamcinolone acetonide (KENALOG) 0.1 % ointment Apply to affected area two times a day. - white petrolatum (AQUAPHOR) 41 % topical ointment Apply to affected area as needed. - pantoprazole DR (PROTONIX) 40 mg tablet Take 1 tablet by mouth daily at 6 am. Patient should start on May 11, 2024. - fexofenadine (SHANTELLE) 60 mg tablet Take 60 mg by mouth once daily. - Lactobacillus acidophilus (PROBIOTIC ORAL) Take 1 capsule by mouth once daily. - Cholecalciferol, Vitamin D3, 25 mcg (1,000 unit) cap Take 1,000 Units by mouth once daily. 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] 05/06/2024 Age-related osteoporosis without current pathol*05/06/2024 Lymphadenopathy [R59.1] 05/06/2024 Eosinophilia [D72.10] 05/08/2024 Eczema [L30.9] 05/08/2024 Peripheral eosinophilia [D72.19] 05/09/2024 Encounter Status:Closed by AUSTIN BOSS on 07/19/24 [facility] CNNURSEon 07-17-2024 CNNURSE Nurse Visit (DERMAV) MIRIAN CORRALES ([id number]) 1955 F Date Time Provider Department 07/17/24 2:40 PM NURSE DERM [facility] REJ DERMAV During your visit today, we recorded the following information about you: Kierra Willis RN 07/17/2024 2:59 PM Signed Patient treatment cancelled for today as she has moderate to severe erythema to torso front and back. Will skip Wednesdays appointment and re-evaluate on Wednesday. Dr. Jamse aware. Kierra Willis RN July 17, 2024 2:58 PM Referring Provider: SELF [200] Allergies As of Date: 07/17/2024 Noted Allergy Reaction WHEAT 08/24/2019 7 - Swelling DAIRY AID (LACTASE) 08/24/2019 7 - Swelling Comments: Bloating Date Reviewed: 07/17/2024 Reviewed by: Kierra Willis RN - Fully Assessed Reason for Visit: Light Treatments [1093] Primary Visit Diagnosis:Spongiotic dermatitis [L30.8] Prescriptions as of 07/17/2024 - predniSONE (DELTASONE) 10 mg tablet Take 2 tablets by mouth once daily for 7 days, THEN 1 tablet once daily for 7 days. - hydrOXYzine HCl (ATARAX) 25 mg tablet Hydroxyzine Hcl Active 25 MG PO Q6H April 08, 2024 12:00am - triamcinolone acetonide (KENALOG) 0.1 % ointment Apply to affected area two times a day. - white petrolatum (AQUAPHOR) 41 % topical ointment Apply to affected area as needed. - pantoprazole DR (PROTONIX) 40 mg tablet Take 1 tablet by mouth daily at 6 am. Patient should start on May 11, 2024. - fexofenadine (SHANTELLE) 60 mg tablet Take 60 mg by mouth once daily. - Lactobacillus acidophilus (PROBIOTIC ORAL) Take 1 capsule by mouth once daily. - Cholecalciferol, Vitamin D3, 25 mcg (1,000 unit) cap Take 1,000 Units by mouth once daily. 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] 05/06/2024 Age-related osteoporosis without current pathol*05/06/2024 Lymphadenopathy [R59.1] 05/06/2024 Eosinophilia [D72.10] 05/08/2024 Eczema [L30.9] 05/08/2024 Peripheral eosinophilia [D72.19] 05/09/2024 Encounter Status:Closed by KIERRA WILLIS on 07/17/24 [facility] MIRIAN CORRALES ([id number]) 1955 F Date Time Provider Department 07/14/24 3:20 PM NURSE DERM [facility] REJ DERMAV During your visit today, we recorded the following information about you: Sonam Freitas RN 07/14/2024 3:20 PM Signed Pt is identified by name and birthdate: Yes Allergies reviewed: Yes Medication - prescribed and OTC reviewed and updated: Yes Latex allergy: no. Is the patient having any pain? No 0 on a scale of 0 to 10 See flow sheet for treatment record. patient oriented to UVBbooth and room eye protection on Sonam Freitas RN July 14, 2024 3:20 PM Referring Provider: SELF [200] Allergies As of Date: 07/14/2024 Noted Allergy Reaction WHEAT 08/24/2019 7 - Swelling DAIRY AID (LACTASE) 08/24/2019 7 - Swelling Comments: Bloating Date Reviewed: 07/14/2024 Reviewed by: Sonam Freitas RN - Fully Assessed Reason for Visit: Light Treatments [1093] Primary Visit Diagnosis:Spongiotic dermatitis [L30.8] Prescriptions as of 07/14/2024 - predniSONE (DELTASONE) 10 mg tablet Take 2 tablets by mouth once daily for 7 days, THEN 1 tablet once daily for 7 days. - hydrOXYzine HCl (ATARAX) 25 mg tablet Hydroxyzine Hcl Active 25 MG PO Q6H April 08, 2024 12:00am - triamcinolone acetonide (KENALOG) 0.1 % ointment Apply to affected area two times a day. - white petrolatum (AQUAPHOR) 41 % topical ointment Apply to affected area as needed. - pantoprazole DR (PROTONIX) 40 mg tablet Take 1 tablet by mouth daily at 6 am. Patient should start on May 11, 2024. - fexofenadine (SHANTELLE) 60 mg tablet Take 60 mg by mouth once daily. - Lactobacillus acidophilus (PROBIOTIC ORAL) Take 1 capsule by mouth once daily. - Cholecalciferol, Vitamin D3, 25 mcg (1,000 unit) cap Take 1,000 Units by mouth once daily. 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] 05/06/2024 Age-related osteoporosis without current pathol*05/06/2024 Lymphadenopathy [R59.1] 05/06/2024 Eosinophilia [D72.10] 05/08/2024 Eczema [L30.9] 05/08/2024 Peripheral eosinophilia [D72.19] 05/09/2024 Questionnaire: DERMATOLOGY PHOTOTHERAPY TX DX -> spongiotic dermatitis ORDERING PHYSICIAN -> Cmt: jacob TX TYPE -> NARROW BAND UVB (MJ/CM2) TX FREQ -> 3X/WK INITIAL DOSE -> 300 MAX DOSE -> 3000 INCREASE BY -> 50 TX# -> 2 DOSE -> 300 DOSE ADJ -> no change COMMENTS: -> pt tolerated without issue Encounter Status:[facility]AS [facility]14[facility]DERMAV) MIRIAN CORRALES ([id number]) 1955 F Date Time Provider Department 07/12/24 3:20 PM NURSE DERM [facility] REJ DERMAV During your visit today, we recorded the following information about you: Austin Boss RN 07/12/2024 3:43 PM Signed Pt is identified by name and birthdate: Yes Allergies reviewed: Yes Medication - prescribed and OTC reviewed and updated: Yes Latex allergy: no. Is the patient having any pain? No 0 on a scale of 0 to 10 See flow sheet for treatment record. patient oriented to UVBbooth and room eye protection on Austin Boss RN July 12, 2024 3:42 PM Referring Provider: SELF [200] Allergies As of Date: 07/12/2024 Noted Allergy Reaction WHEAT 08/24/2019 7 - Swelling DAIRY AID (LACTASE) 08/24/2019 7 - Swelling Comments: Bloating Date Reviewed: 07/12/2024 Reviewed by: Austin Boss RN - Fully Assessed Reason for Visit: Light Treatments [1093] Primary Visit Diagnosis:Spongiotic dermatitis [L30.8] Prescriptions as of 07/12/2024 - predniSONE (DELTASONE) 10 mg tablet Take 2 tablets by mouth once daily for 7 days, THEN 1 tablet once daily for 7 days. - hydrOXYzine HCl (ATARAX) 25 mg tablet Hydroxyzine Hcl Active 25 MG PO Q6H April 08, 2024 12:00am - triamcinolone acetonide (KENALOG) 0.1 % ointment Apply to affected area two times a day. - white petrolatum (AQUAPHOR) 41 % topical ointment Apply to affected area as needed. - pantoprazole DR (PROTONIX) 40 mg tablet Take 1 tablet by mouth daily at 6 am. Patient should start on May 11, 2024. - fexofenadine (SHANTELLE) 60 mg tablet Take 60 mg by mouth once daily. - Lactobacillus acidophilus (PROBIOTIC ORAL) Take 1 capsule by mouth once daily. - Cholecalciferol, Vitamin D3, 25 mcg (1,000 unit) cap Take 1,000 Units by mouth once daily. 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] 05/06/2024 Age-related osteoporosis without current pathol*05/06/2024 Lymphadenopathy [R59.1] 05/06/2024 Eosinophilia [D72.10] 05/08/2024 Eczema [L30.9] 05/08/2024 Peripheral eosinophilia [D72.19] 05/09/2024 Questionnaire: DERMATOLOGY PHOTOTHERAPY TX DX -> spongiotis dermatitis ORDERING PHYSICIAN -> Cmt: Jacob SAHU TYPE -> NARROW BAND UVB (MJ/CM2) TX FREQ -> 3X/WK INITIAL DOSE -> 300 MAX DOSE -> 3000 INCREASE BY -> 50 TX# -> 1 DOSE -> 300 DOSE ADJ -> 0 COMMENTS: -> oriented to uvb Encounter Status:Closed by AUSTIN BOSS on 07/12/24 [facility] CNOVon 06-20-2024 CNOV Office Visit (DERMMN ) MIRIAN CORRALES ([id number]) 1955 F Date Time Provider Department 06/20/24 1:15 PM EBONIE JAMES DERMMN During your visit today, we recorded the following information about you: Ebonie James MD 06/20/2024 2:36 PM Signed Est patient CHIEF COMPLAINT: Rash HISTORY OF PRESENT ILLNESS: Mirian Corrales is a 68 year old female here for evaluation of Rash. LCV: 05/29/2024 Provider: Dr. James Found to have: Rash -Biopsy results showing spongiotic dermatitis -Scheduled for patch testing -Prednisone taper 80 mg x 5 days 60 mg x 5 days 40 mg x 5 days 20 mg x 5 days 10 mg x 5 days -Continue protonix and vit D supplement Today patient reports rash varies daily. Seems to flare with certain foods (I.e., cheese, gluten). Today is a good day for the rash. Currently on day 1 of 40 mg of prednisone (new 60 mg prednisone taper was sent on 06/05/24). Personal Dermatologic History History of skin cancer: No History of actinic keratoses: No History of atypical nevi: No History of immunosuppression: Yes History of blistering sunburns: Yes FAMILY HISTORY: History of melanoma: Father and niece Past Medical History No past medical history on file. REVIEW OF SYSTEMS: Constitutional: Denies fever, chills, unintentional weight loss. Skin as per HPI Medications Current Outpatient Medications Medication Sig predniSONE (DELTASONE) 10 mg tablet Take 6 tablets by mouth once daily for 5 days, THEN 4 tablets once daily for 5 days, THEN 2 tablets once daily for 5 days, THEN 1 tablet once daily for 5 days. hydrOXYzine HCl (ATARAX) 25 mg tablet Hydroxyzine Hcl Active 25 MG PO Q6H April 08, 2024 12:00am triamcinolone acetonide (KENALOG) 0.1 % ointment Apply to affected area two times a day. white petrolatum (AQUAPHOR) 41 % topical ointment Apply to affected area as needed. pantoprazole DR (PROTONIX) 40 mg tablet Take 1 tablet by mouth daily at 6 am. Patient should start on May 11, 2024. fexofenadine (SHANTELLE) 60 mg tablet Take 60 mg by mouth once daily. Lactobacillus acidophilus (PROBIOTIC ORAL) Take 1 capsule by mouth once daily. Cholecalciferol, Vitamin D3, 25 mcg (1,000 unit) cap Take 1,000 Units by mouth once daily. No current facility-administered medications for this visit. PHYSICAL EXAM: General: awake, alert, no acute distress Neuropsych: appropriate mood and affect Eyes: Sclerae anicteric, without conjunctival injection, eyelids unremarkable Skin: Skin exam was performed today including the following: Skin exam performed including face, scalp, neck, chest, abdomen, back, arms, hands, nails, legs, feet, and buttocks. All are within normal limits except the following findings: - scattered excoriated erythematous papules coalescing into plaques over the trunk and bilateral upper and lower extremities ASSESSMENT AND PLAN: Mirian Corrales is a 68 year old female patient with a past medical history of: osteoporosis and varicose veins presented to the ED from derm clinic for rash with associated significant eosinophilia. Pt found to have lymphadenopathy on exam and reports recent weight loss. Reports rash is responsive to systemic steroids. Prior biopsy showed spongiotic dermatitis indicating possible contact dermatitis, atopic dermatitis, or an eczematous drug reaction. No indication of lymphoma or underlying cutaneous malignancy on pathology. Suspect lymphadenopathy could be explained by substantial ongoing inflammation caused by rash. #Rash and nonspecific skin eruption, with prior biopsy showing spongiotic dermatitis - Medical Complexity: chronic illness - not at treatment goal - Differential diagnosis includes allergic contact dermatitis, atopic dermatitis, or an eczematous drug reaction - Scheduled for patch testing on 08/14/[address] Latham - Complete oral prednisone taper as previously prescribed: 40 mg x 5 days, 20 mg x 5 days, then 10 mg x 5 days - Continue Protonix and vitamin D supplement while on prednisone - Discussed additional treatment options including topicals, systemic therapy, and phototherapy. Plan to start nbUVB to full body, order placed today - patient to call and schedule with convenient location (appointment numbers provided to patient today) - Discussed need to stop phototherapy 2 weeks prior to patch testing - Ok to continue topicals as needed - Advised patient to discuss hip pain with PCP Patient advised of potential adverse effects of any medications discussed above and what to do if patient experiences any of these, including contacting clinic. Answered all questions. Patient expressed understanding. Return to clinic: 1 month Marilu Harris MD PGY-3 Dermatology Resident June 20, 2024 1:47 PM The patient is seen and examined by Dr. James and the following reflects his/her servic (more content not included)... Normal [facility] CNOVon 05-29-2024 CNOV Office Visit (DERMWH ) MIRIAN CORRALES ([id number]) 1955 F Date Time Provider Department 05/29/24 2:30 PM EBONIE JAMES DERMWH During your visit today, we recorded the following information about you: Ebonie James MD 05/29/2024 3:56 PM Signed Est patient CHIEF COMPLAINT: Rash HISTORY OF PRESENT ILLNESS: Mirian Mj Corrales is a 68 year old female here for evaluation of Rash. LCV: 05/05/2024 Provider: Dr James Found to have: Rash - Medical Complexity: undiagnosed new problem with uncertain prognosis This is a complicated case. DDX includes contact dermatitis vs hypereosinophilic syndrome vs DRESS vs infectious process vs malignancy. Given the complexity of the history and the severity of the clinical presentation, patient advised to go to [facility] ED for evaluation by our derm consult team. Today patient reports: Rash has worsened since being discharged. Rash flared up one week ago. Taking 2 and a half tablets of prednisone currently. Using triamcinolone ointment mixed with Aquaphor ointment. Taking atarax daily for itching. The last few days the atarax has not been helping. Here with her . Personal Dermatologic History History of skin cancer: no History of actinic keratoses: no History of atypical nevi: no History of immunosuppression: yes History of blistering sunburns: yes FAMILY HISTORY: History of melanoma: Father and niece Past Medical History No past medical history on file. REVIEW OF SYSTEMS: Constitutional: Denies fever, chills, unintentional weight loss. Skin as per HPI Medications Current Outpatient Medications Medication Sig predniSONE (DELTASONE) 10 mg tablet Take 6 tablets by mouth two times a day for 6 days, THEN 6 tablets once daily for 7 days, THEN two and a half tablet once daily for 7 days, THEN 1 tablet once daily for 7 days, THEN a half tablet once daily for 7 days. triamcinolone acetonide (KENALOG) 0.1 % ointment Apply to affected area two times a day. white petrolatum (AQUAPHOR) 41 % topical ointment Apply to affected area as needed. pantoprazole DR (PROTONIX) 40 mg tablet Take 1 tablet by mouth daily at 6 am. Patient should start on May 11, 2024. fexofenadine (SHANTELLE) 60 mg tablet Take 60 mg by mouth once daily. Lactobacillus acidophilus (PROBIOTIC ORAL) Take 1 capsule by mouth once daily. Cholecalciferol, Vitamin D3, 25 mcg (1,000 unit) cap Take 1,000 Units by mouth once daily. No current facility-administered medications for this visit. PHYSICAL EXAM: General: awake, alert, no acute distress Neuropsych: appropriate mood and affect Eyes: Sclerae anicteric, without conjunctival injection, eyelids unremarkable Skin: Skin exam was performed today including the following: Skin exam performed including face, scalp, neck, chest, abdomen, back, arms, hands, nails, legs. All are within normal limits except the following findings: Erythematous plaques of trunk and lateral neck ASSESSMENT AND PLAN: Mirian Corrales is a 68 year old female patient with a past medical history of: osteoporosis and varicose veins presented to the ED from derm clinic for rash with associated significant eosinophilia. Pt found to have lymphadenopathy on exam and reports recent weight loss. Reports rash is responsive to systemic steroids. Biopsy results showing spongiotic dermatitis indicating possible contact dermatitis, atopic dermatitis, or an eczematous drug reaction. No indication of lymphoma or underlying cutaneous malignancy on pathology. Suspect lymphadenopathy could be explained by substantial ongoing inflammation caused by rash. - Scheduled for patch testing - will speak with Dr. Latham for further insight/thoughts. For symptomatic relief: - Prednisone taper: 80 mg x 5 days 60 mg x 5 days 40 mg x 5 days 20 mg x 5 days 10 mg x 5 days - Continue Protonix and vit D supplement Recommended sunscreen SPF 30 or above and sun protective clothing. Patient advised of potential adverse effects of any medications discussed above and what to do if patient experiences any of these, including contacting clinic. Answered all questions. Patient expressed understanding. Return to clinic: has appt scheduled 06/28; will see what Dr. Latham says about patch testing --> appt isn't until July The patient is seen and examined by Dr. Ebonie James MD and the following reflects his/her service. Scribed by Cindy North LPN I agree with the Chief Complaint, ROS, and Past Histories independently gathered by the clinical pit crew support worker and the remaining scribed note accurately describes my personal service to the patient. MD Can De Los Santos [place], [place] 05/29/2024 3:22 PM Signed Prednisone 80 mg x 5 days 60 mg x 5 days 40 mg x 5 days 20 mg x 5 days 10 mg x 5 days Allergies As of Date: 05/29/2024 No (more content not included)... Normal [facility]29[facility] MIRIAN CORRALES ([id number]) 1955 F Date Time Provider Department 05/29/24 EBONIE JAMES During your visit today, we recorded the following information about you: Ashley Mclaughlin RN 05/29/2024 7:13 AM Signed Patient sent [facility] message requesting a sooner appointment. Nurse called and offered 2:30 today at [place] with Dr. James. Patient accepted and appointment made. Allergies As of Date: 05/29/2024 Noted Allergy Reaction WHEAT 08/24/2019 7 - Swelling DAIRY AID (LACTASE) 08/24/2019 7 - Swelling Comments: Bloating Date Reviewed: 05/10/2024 Reviewed by: Amie Stone RN - Fully Assessed Prescriptions as of 05/29/2024 - predniSONE (DELTASONE) 10 mg tablet Take 6 tablets by mouth two times a day for 6 days, THEN 6 tablets once daily for 7 days, THEN two and a half tablet once daily for 7 days, THEN 1 tablet once daily for 7 days, THEN a half tablet once daily for 7 days. - triamcinolone acetonide (KENALOG) 0.1 % ointment Apply to affected area two times a day. - white petrolatum (AQUAPHOR) 41 % topical ointment Apply to affected area as needed. - pantoprazole DR (PROTONIX) 40 mg tablet Take 1 tablet by mouth daily at 6 am. Patient should start on May 11, 2024. - fexofenadine (SHANTELLE) 60 mg tablet Take 60 mg by mouth once daily. - Lactobacillus acidophilus (PROBIOTIC ORAL) Take 1 capsule by mouth once daily. - Cholecalciferol, Vitamin D3, 25 mcg (1,000 unit) cap Take 1,000 Units by mouth once daily. 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] 05/06/2024 Age-related osteoporosis without current pathol*05/06/2024 Lymphadenopathy [R59.1] 05/06/2024 Eosinophilia [D72.10] 05/08/2024 Eczema [L30.9] 05/08/2024 Peripheral eosinophilia [D72.19] 05/09/2024 Encounter Status:Closed by ASHLEY MCLAUGHLIN on 05/29/24 [facility] 05-12-2024 [facility] Telephone (DERMPRATIMA) MIRIAN CORRALES ([id number]) 1955 F Date Time Provider Department 05/12/24 JACOB, EBONIE JERALD DERMWH During your visit today, we recorded the following information about you: Dl Matthews LPN 05/12/2024 9:47 AM Signed Outside pathology report forwarded to medical records to be scanned Dl Matthews LPN Allergies As of Date: 05/12/2024 Noted Allergy Reaction WHEAT 08/24/2019 7 - Swelling DAIRY AID (LACTASE) 08/24/2019 7 - Swelling Comments: Bloating Date Reviewed: 05/10/2024 Reviewed by: Amie Stone RN - Fully Assessed Reason for Visit: Received Outside Medical Records [[id number]] Prescriptions as of 05/12/2024 - predniSONE (DELTASONE) 10 mg tablet Take 6 tablets by mouth two times a day for 6 days, THEN 6 tablets once daily for 7 days, THEN two and a half tablet once daily for 7 days, THEN 1 tablet once daily for 7 days, THEN a half tablet once daily for 7 days. - triamcinolone acetonide (KENALOG) 0.1 % ointment Apply to affected area two times a day. - white petrolatum (AQUAPHOR) 41 % topical ointment Apply to affected area as needed. - hydrOXYzine HCl (ATARAX) 25 mg tablet Take 1 tablet by mouth every 8 hours as needed for itching/rash for up to 7 days. - pantoprazole DR (PROTONIX) 40 mg tablet Take 1 tablet by mouth daily at 6 am. Patient should start on May 11, 2024. - fexofenadine (SHANTELLE) 60 mg tablet Take 60 mg by mouth once daily. - Lactobacillus acidophilus (PROBIOTIC ORAL) Take 1 capsule by mouth once daily. - Cholecalciferol, Vitamin D3, 25 mcg (1,000 unit) cap Take 1,000 Units by mouth once daily. 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] 05/06/2024 Age-related osteoporosis without current pathol*05/06/2024 Lymphadenopathy [R59.1] 05/06/2024 Eosinophilia [D72.10] 05/08/2024 Eczema [L30.9] 05/08/2024 Peripheral eosinophilia [D72.19] 05/09/2024 Encounter Status:Closed by DL MATTHEWS on 05/12/24 Normal [facility] CNDSon 05-11-2024 DS HNO ID: [id number] Author: HOMERO PETTY MD Service: General Internal Medicine Author Type: Resident Type: Discharge Summary Filed: 05/12/2024 13:23 Note Text: Attestation signed by Homero Petty MD at 05/12/2024 1:23 PM [facility] STAFF PHYSICIAN NOTE OF PERSONAL INVOLVEMENT IN CARE I have reviewed the note obtained and documented by the resident and I personally participated in the gaming components. I have discussed the case and management of the patient's care. The following comments revise or confirm relevant gaming components of their note. I agree with the impression and plan as outlined. I was present with the resident during the discharge services. We discussed the case and I agree with the findings and discharge plan as documented in their note. I personally spent > 30 minutes in discharge day management. SIGNATURE: Homero Petty MD [facility] DISCHARGE SUMMARY PATIENT NAME: Mirian Corrales ADMISSION DATE: 05/05/2024 DISCHARGE DATE: 05/11/2024 ATTENDING PHYSICIAN: No att. providers found Code Status: Prior PCP: Conner Stanley DO Highest Readmission Risk Score: 16 The 30 day readmissions risk score is derived from an internally validated risk model which evaluates patient level characteristics, utilization history, medication orders and lab results up until the day of discharge. Patients with a score of 40 or above are considered highest risk for readmission. Specific patient level drivers will be listed at the bottom of the summary. TRANSITIONS OF CARE CRITICAL ISSUES: GAMING MEDICATION CHANGES: PO Prednisone, taper over 5 weeks Triamcinolone 0.1% cream BID STOPPED Bactrim FOLLOW UP APPOINTMENTS: Derm outpatient f/u in 6 weeks, patch testing clinic this fall REASON FOR HOSPITALIZATION/PRINCI PAL DIAGNOSES: Skin rashes HOSPITAL PROBLEMS: Principal Problem: Rash (POA: Yes) Active Problems: Idiopathic hypereosinophilic syndrome (POA: Unknown) Age-related osteoporosis without current pathological fracture (POA: Unknown) Lymphadenopathy (POA: Unknown) Eosinophilia (POA: Unknown) Eczema (POA: Unknown) Peripheral eosinophilia (POA: Unknown) Resolved Problems: * No resolved hospital problems. * HOSPITAL COURSE: Mirian Corrales is a 68 year old female patient with a past medical history of: osteoporosis and varicose veins presented to the ED from derm clinic for rash. #Diffuse skin rash Patient was admitted due to Erythematous plaques all over her body with itching, with skin lesions along lines of itching. Labs on admission demonstrated eosinophilia. CT Chest and CT ABD/PEL demonstrated mediastinal, bilateral axillary, and subpectoral/intramamma ry, and external iliac lymphadenopathy. Started on Atarax and Eucerin cream. Skin punch biopsy was done. Dermatology consulted, recommended lymphadenopathy and heme workup. Rheum consulted, IgG, IgM, IgA, IgG subsets checked. ID consulted, recommended IR consult for lymph node biopsy. EKG done due to concern for prolonged QT from Atarax, but was normal. Biopsy results showed spongiotic dermatitis. Started on IVMP 50 mg q12, and triamcinolone 0.1% cream BID to rash. Then, was transitioned to PO steroids. Erythema and pruritus have been improving. Plan on Discharge: - Prednisone taper: 60 mg BID for one week, 60 mg daily for one week, 25 mg daily for one week, 10 mg daily for one week, and 5 mg daily for one week. - Triamcinolone 0.1% cream BID to rash affected areas - Derm outpatient f/u in 6 weeks, patch testing clinic this fall #Diffuse lymphadenopathy CT 05/05 showed mediastinal, bilateral axillary, and subpectoral/intramamma ry, and external iliac lymphadenopathy. Did a RF and Lupus panel. Recommended a LN biopsy. Dermatology stated that lymphadenopathy is likely dermatopathic in nature. Plan on Discharge: - Monitor lymphadenopathy. If it does not resolve with treatment of eczema, consider LN biopsy. #Osteoporosis On Vitamin D3 1000 U daily Plan on Discharge: Continue home Vitamin D3 OPERATIONS/PROCEDURE DURING THIS HOSPITALIZATION: * No surgery found * CONSULTS DURING HOSPITALIZATION: Treatment Team: Primary Service: Jose Hess PATIENT CONDITION AT DISCHARGE: Stable DISCHARGE DISPOSITION: Home with Self Care Discharge Physical Exam: VITAL SIGNS: BP 106/58 Pulse 63 Temp 36.4 ?C (97.5 ?F) (Oral) Resp 19 Wt 59 kg (130 lb) SpO2 95% BMI 20.98 kg/m? General: Awake and alert HEENT: Normocephalic and atraumatic. Extraocular motions grossly intact. Respiratory: Normal work of breathing on RA. Extremities: Warm and dry. Skin: Diffuse elevated erythematous lesions present diffusely over body surface, decreased in comparison to on admission Neurological: No gross focal neurological deficits present. (more content not included)... Normal [facility] CBC W Auto Differential pane l (Bld)on 05-10-2024 Basophils (Bld) [#/Vol] 10*3/uL Normal <0.11 [facility] on above: Order Comment: Speci men Type: BLOOD SPECIMEN Ordering Facility: [facility] Address: [address] [place] [address] Performed By: #### 5 7021-8 #### [facility] CLIA [id number] [address] [place] [address] [place] Basophils/100 WBC (Bld) 0.2 % Normal [facility] Comment on above: Order Comment: Speci men Type: BLOOD SPECIMEN Ordering Facility: [facility] Address: [address] [place] [address] Performed By: #### 5 7021-8 #### [facility] CLIA [id number] [address] [place] [address] [place] Differential cell count method Nom (Bld) Auto Normal [facility] Comment on above: Order Comment: Speci men Type: BLOOD SPECIMEN Ordering Facility: [facility] Address: [address] [place] [address] Performed By: #### 5 7021-8 #### [facility] CLIA [id number] [address] [place] [address] [place] Eosinophils (Bld) [#/Vol] 10*3/uL Normal <0.46 [facility] Comment on above: Order Comment: Speci men Type: BLOOD SPECIMEN Ordering Facility: [facility] Address: [address] [place] [address] Performed By: #### 5 7021-8 #### [facility] CLIA [id number] [address] [place] [address] [place] Eosinophils/100 WBC (Bld) 0.1 % Normal [facility] Comment on above: Order Comment: Speci men Type: BLOOD SPECIMEN Ordering Facility: [facility] Address: [address] [place] [address] Performed By: #### 5 7021-8 #### [facility] CLIA [id number] [address] [place] [address] [place] Erythrocyte distribution width (RBC) [Ratio] 14.9 % Normal 11.5-15.0 [facility] Comment on above: Order Comment: Speci men Type: BLOOD SPECIMEN Ordering Facility: [facility] Address: [address] [place] [address] Performed By: #### 5 7021-8 #### [facility] CLIA [id number] [address] [place] [address] [place] Hematocrit (Bld) [Volume fraction] 32.0 % Low 36.0-46.0 [facility] Comment on above: Order Comment: Speci men Type: BLOOD SPECIMEN Ordering Facility: [facility] Address: [address] [place] [address] Performed By: #### 5 7021-8 #### [facility] CLIA [id number] [address] [place] [address] [place] Hemoglobin (Bld) [Mass/Vol] 10.3 g/dL Low 11.5-15.5 [facility] Comment on above: Order Comment: Speci men Type: BLOOD SPECIMEN Ordering Facility: [facility] Address: [address] [place] [address] Performed By: #### 5 7021-8 #### [facility] CLIA [id number] [address] [place] [address] [place] Immature granulocytes (Bld) [#/Vol] 0.05 10*3/uL Normal <0.10 [facility] Comment on above: Order Comment: Speci men Type: BLOOD SPECIMEN Ordering Facility: [facility] Address: [address] [place] [address] Performed By: #### 5 7021-8 #### [facility] CLIA [id number] [address] [place] [address] [place] Immature granulocytes/100 WBC (Bld) 0.4 % Normal [facility] Comment on above: Order Comment: Speci men Type: BLOOD SPECIMEN Ordering Facility: [facility] Address: [address] [place] [address] Performed By: #### 5 7021-8 #### [facility] CLIA [id number] [address] [place] [address] [place] Lymphocytes (Bld) [#/Vol] 1.37 10*3/uL Normal 1.00-4.00 [facility] Comment on above: Order Comment: Speci men Type: BLOOD SPECIMEN Ordering Facility: [facility] Address: [address] [place] [address] Performed By: #### 5 7021-8 #### [facility] CLIA [id number] [address] [place] [address] [place] Lymphocytes/100 WBC (Bld) 11.7 % Normal [facility] Comment on above: Order Comment: Speci men Type: BLOOD SPECIMEN Ordering Facility: [facility] Address: [address] [place] [address] Performed By: #### 5 7021-8 #### [facility] CLIA [id number] [address] [place] [address] [place] MCH (RBC) [Entitic mass] 30.4 pg Normal 26.0-34.0 [facility] Comment on above: Order Comment: Speci men Type: BLOOD SPECIMEN Ordering Facility: [facility] Address: [address] [place] [address] Performed By: #### 5 7021-8 #### [facility] CLIA [id number] [address] [place] [address] [place] MCHC (RBC) [Mass/Vol] 32.2 g/dL Normal 30.5-36.0 [facility] Comment on above: Order Comment: Speci men Type: BLOOD SPECIMEN Ordering Facility: [facility] Address: [address] [place] [address] Performed By: #### 5 7021-8 #### [facility] CLIA [id number] [address] [place] [address] [place] MCV (RBC) [Entitic vol] 94.4 fL Normal 80.0-100.0 C [facility] Comment on above: Order Comment: Speci men Type: BLOOD SPECIMEN Ordering Facility: [facility] Address: [address] [place] [address] Performed By: #### 5 7021-8 #### [facility] CLIA [id number] [address] [place] [address] [place] Monocytes (Bld) [#/Vol] 0.89 10*3/uL High <0.87 [facility] Comment on above: Order Comment: Speci men Type: BLOOD SPECIMEN Ordering Facility: [facility] Address: [address] [place] [address] Performed By: #### 5 7021-8 #### [facility] CLIA [id number] [address] [id number] [address] [place] Monocytes/100 WBC (Bld) 7.6 % Normal [facility] Comment on above: Order Comment: Speci men Type: BLOOD SPECIMEN Ordering Facility: [facility] Address: [address] [place] [address] Performed By: #### 5 7021-8 #### [facility] CLIA [id number] [address] [place] [address] [place] Neutrophils (Bld) [#/Vol] 9.40 10*3/uL High 1.45-7.50 [facility] Comment on above: Order Comment: Speci men Type: BLOOD SPECIMEN Ordering Facility: [facility] Address: [address] [place] [address] Performed By: #### 5 7021-8 #### [facility] CLIA [id number] [address] [place] [address] [place] Neutrophils/100 WBC (Bld) 80.0 % Normal [facility] Comment on above: Order Comment: Speci men Type: BLOOD SPECIMEN Ordering Facility: [facility] Address: [address] [place] [address] Performed By: #### 5 7021-8 #### [facility] CLIA [id number] [address] [place] [address] [place] Nucleated RBC (Bld) [#/Vol] 10*3/uL Normal <0.01 [facility] Comment on above: Order Comment: Speci men Type: BLOOD SPECIMEN Ordering Facility: [facility] Address: [address] [place] [address] Performed By: #### 5 7021-8 #### [facility] CLIA [id number] [address] [place] [address] [place] Nucleated RBC/100 WBC (Bld) [Ratio] 0.0 /100 WBC Normal [facility] Comment on above: Order Comment: Speci men Type: BLOOD SPECIMEN Ordering Facility: [facility] Address: [address] [place] [address] Performed By: #### 5 7021-8 #### [facility] CLIA [id number] [address] [place] [address] [place] Platelet mean volume (Bld) [Entitic vol] 9.6 fL Normal 9.0-12.7 [facility] Comment on above: Order Comment: Speci men Type: BLOOD SPECIMEN Ordering Facility: [facility] Address: [address] [place] [address] Performed By: #### 5 7021-8 #### [facility] CLIA [id number] [address] [place] [address] [place] Platelets (Bld) [#/Vol] 349 10*3/uL Normal 150-400 [facility] Comment on above: Order Comment: Speci men Type: BLOOD SPECIMEN Ordering Facility: [facility] Address: [address] [place] [address] Performed By: #### 5 7021-8 #### [facility] CLIA [id number] [address] [place] [address] [place] RBC (Bld) [#/Vol] 3.39 10*6/uL Low 3.90-5.20 [facility] Comment on above: Order Comment: Speci men Type: BLOOD SPECIMEN Ordering Facility: [facility] Address: [address] [place] [address] Performed By: #### 5 7021-8 #### [facility] CLIA [id number] [address] [place] [address] [place] WBC (Bld) [#/Vol] 11.74 10*3/uL High 3.70-11.00 [facility] Comment on above: Order Comment: Speci men Type: BLOOD SPECIMEN Ordering Facility: [facility] Address: [address] [place] [address] Performed By: #### 5 7021-8 #### [facility] CLIA [id number] [address] [id number] [place] CONSULT PROGon 05-10-2024 CONSULT PROG HNO ID: [id number] Author: ANTELMO URENA MD, PhD Service: Dermatology Author Type: Physician Type: Consult Progress Note Filed: 05/10/2024 19:43 Note Text: DERMATOLOGY HOSPITAL CONSULT SERVICE PROGRESS NOTE Interval Events - Rash significantly improved - Plan for DC tomorrow - Converted to pred taper per primary - Eos wnl PHYSICAL EXAM BP 118/57 Pulse 78 Temp 37.1 ?C (98.8 ?F) (Oral) Resp 16 Wt 59 kg (130 lb) SpO2 99% BMI 20.98 kg/m? GEN: Age appropriate Skin examination was performed of the scalp, face, neck, chest, abdomen, back, BUE including hands, BLE including feet, buttocks, groin and was pertinent for: - resolving erythema on the face, trunk and extremities DATA LABORATORY TESTS: CBC: Recent Labs 05/10/24 0705 05/09/24 0828 05/08/24 0932 05/07/24 0647 05/06/24 0754 05/05/24 1620 05/05/24 1209 WBC 11.74* 5.32 11.68* 11.09* 11.32* 11.70* 12.89* HB 10.3* 11.7 12.3 12.4 12.9 13.6 12.8 HCT 32.0* 35.4* 37.9 37.7 40.6 42.9 39.7 PLT 349 415* 437* 410* 440* 470* 499* MCV 94.4 90.5 92.4 94.5 94.0 94.9 93.9 RDWCV 14.9 14.8 14.8 14.4 14.6 14.4 14.5 NEUTP 80.0 -- 37.8 36.5 36.8 57.0 73.9 ABSNEUT 9.40* -- 4.41 4.05 4.17 6.67 9.53* LYMPHP 11.7 -- 15.2 11.2 14.0 15.0 7.8 MONOP 7.6 -- 7.4 8.0 8.0 7.5 5.3 EODINP 0.1 -- 39.0 43.4 40.3 19.2 12.0 COAG: No results for input(s): APTT , INR in the last 168 hours. BMP: Recent Labs 05/10/24 0705 05/09/24 0827 05/08/24 0932 05/07/24 0646 05/06/24 0754 05/05/24 1620 05/05/24 1209 GLUC 137* 123* 94 88 97 117* 111* NA 140 138 141 138 138 134* 135* K 4.3 4.0 3.9 4.3 4.3 4.7 4.4 CHLOR 107 104 108* 106 107 104 104 CO2 25 24 23 22 20* 22 22 ANION 8 10 10 10 11 8 9 BUN 12 14 12 10 14 14 13 CREAT 0.58 0.57* 0.70 0.67 0.72 0.76 0.79 CHEM: Recent Labs 05/10/24 0705 05/09/24 0827 05/08/24 0932 05/07/24 0646 05/06/24 0754 05/05/24 1620 05/05/24 1209 ALB 3.1* 3.3* 3.0* 3.1* 3.0* 3.8* 3.6* TPROT -- -- -- -- -- 6.7 6.3 CA 8.6 8.9 8.3* 8.5 8.4* 9.0 9.0 HEPATIC: Recent Labs 05/05/24 1620 05/05/24 1209 ALKPHOS 82 76 ALT 16 16 AST 18 20 TBILI 0.2 0.3 IMAGING: CT Chest No acute intrathoracic findings. Mediastinal, bilateral axillary, and subpectoral/intramamma ry lymphadenopathy concerning for lymphoproliferative disorder/malignancy. Recommend tissue sampling for further evaluation. BIOPSY: FINAL DIAGNOSIS A. Skin, left hip, punch biopsy: -Spongiotic dermatitis with eosinophils, see comment. B. Skin, left hip, punch biopsy: -Negative direct immunofluorescence, see comment. Diagnosis Comment A. Histologic sections show a compact stratum corneum with areas of parakeratotic serum exudate overlying an acanthotic and markedly spongiotic epidermis with exocytosis of lymphocytes and eosinophils. Within the dermis, there is a mildly dense but diffuse perivascular and interstitial lymphohistiocytic infiltrate with rare eosinophils. Vasculitis is not identified. B. Direct immunofluorescence antibody localization demonstrate negative immunoreactivity for immunoglobulins IgG, IgA, IgM and complement C3 on sections of frozen skin. Overall, these features are those of spongiotic dermatitis with eosinophils and is most consistent with a hypersensitivity dermatitis. While a tissue eosinophilia could result from a systemic eosinophilia, specific features of a hypereosinophilic syndrome are not identified. Correlation with clinical and hematologic features is recommended. ASSESSMENT: Mirian Corrales is a 68 year old female patient with a past medical history of: osteoporosis and varicose veins presented to the ED from derm clinic for rash with associated significant eosinophilia. Pt found to have lymphadenopathy on exam and reports recent weight loss. Reports rash is responsive to systemic steroids. Biopsy results showing spongiotic dermatitis indicating possible contact dermatitis, atopic dermatitis, or an eczematous drug reaction. No indication of lymphoma or underlying cutaneous malignancy on pathology. Suspect lymphadenopathy could be explained by substantial ongoing inflammation caused by rash. PLAN: - Continue PO Prednisone taper: 60 mg BID for one week, 60 mg daily for one week, 30 mg daily for one week, 10 mg daily for one week, and 5 mg daily for one week - Continue triamcinolone 0.1% cream BID to rash affected areas, avoid face, groin, skin folds - Will arrange derm outpatient follow up for 6 weeks and request patch testing appt for this fall Thank you for allowing us to participate in this patient's care. We will sign off at this time. Please re-consult us should any new concerns arise. Patient seen and discussed with attending yard caller, Dr. Kaiden Steele MD Dermatology, PGY-3 Please use consult pager [phone], Mon-Fri 8am-5pm. Please (more content not included)... Normal [facility] Renal function 2000 panelon 05-10-2024 Albumin [Mass/Vol] 3.1 g/dL Low 3.9-4.9 [facility] Comment on above: Order Comment: Speci men Type: BLOOD SPECIMEN Ordering Facility: [facility] Address: [address] [place] [address] Performed By: #### 2 4323-8 #### [facility] CLIA [id number] [address] [place] [address] Anion gap [Moles/Vol] 8 mmol/L Normal 8-15 [facility] Comment on above: Order Comment: Speci men Type: BLOOD SPECIMEN Ordering Facility: [facility] Address: [address] [place] [address] Performed By: #### 2 4323-8 #### [facility] CLIA [id number] [address] [place] [address] Calcium [Mass/Vol] 8.6 mg/dL Normal 8.5-10.2 [facility] Comment on above: Order Comment: Speci men Type: BLOOD SPECIMEN Ordering Facility: [facility] Address: [address] [place] [address] Performed By: #### 2 4323-8 #### [facility] CLIA [id number] [address] [place] [address] Chloride [Moles/Vol] 107 mmol/L Normal 98-107 [facility] Comment on above: Order Comment: Speci men Type: BLOOD SPECIMEN Ordering Facility: [facility] Address: [address] [id number] Performed By: #### 2 4323-8 #### [facility] CLIA [id number] [address] [place] [address] CO2 [Moles/Vol] 25 mmol/L Normal 22-30 [facility] Comment on above: Order Comment: Speci men Type: BLOOD SPECIMEN Ordering Facility: [facility] Address: [address] [place] [address] Performed By: #### 2 4323-8 #### [facility] CLIA [id number] [address] [place] [address] Creatinine [Mass/Vol] 0.58 mg/dL Normal 0.58-0.96 [facility] Comment on above: Order Comment: Speci men Type: BLOOD SPECIMEN Ordering Facility: [facility] Address: [address] [place] [address] Performed By: #### 2 4323-8 #### [facility] CLIA [id number] [address] [place] [address] Creatinine and Glomerular filtration rate.predicted panel (S/P/Bld) 99 mL/min/1.73m??? Normal >=60 [facility] Comment on above: Order Comment: Specvilma zendejas Type: BLOOD SPECIMEN Ordering Facility: [facility] Address: [address] [place] [address] Result Comment: Estela mated Glomerular Filtration Rate (eGFR) is calculated using the 2020 CKD-EPI creatinine equation. This equation utilizes serum creatinine, sex, and age as parameters. The creatinine assay has traceable calibration to isotope dilution-mass spectrometry. Refer to KDIGO guidelines for clinical interpretation. In patients with unstable renal function, e.g. those with acute kidney injury, the eGFR may not accurately reflect actual GFR. Performed By: #### 2 4323-8 #### [facility] CLIA [id number] [address] [place] [address] Glucose [Mass/Vol] 137 mg/dL High 74-99 [facility] Comment on above: Order Comment: Speci cristiana Type: BLOOD SPECIMEN Ordering Facility: [facility] Address: [address] [place] [address] Result Comment: The [place] Diabetes Association (ADA) provides guidance for cutoff values for fasting glucose and random glucose. The ADA defines fasting as no caloric intake for at least 8 hours. Fasting plasma glucose results between 100 to 125 mg/dL indicate increased risk for diabetes (prediabetes). Fasting plasma glucose results greater than or equal to 126 mg/dL meet the criteria for diagnosis of diabetes. In the absence of unequivocal hyperglycemia, results should be confirmed by repeat testing. In a patient with classic symptoms of hyperglycemia or hyperglycemic crisis, random plasma glucose results greater than or equal to 200 mg/dL meet the criteria for diagnosis of diabetes. Reference: Standards of Medical Care in Diabetes 2016, [place] Diabetes Association. Diabetes Care. 2016.39(Suppl 1). Performed By: #### 2 4323-8 #### [facility] CLIA [id number] [address] [place] [address] Phosphate [Mass/Vol] 3.8 mg/dL Normal 2.7-4.8 [facility] Comment on above: Order Comment: Speci men Type: BLOOD SPECIMEN Ordering Facility: [facility] Address: [address] [place] [address] Performed By: #### 2 4323-8 #### [facility] CLIA [id number] [address] [place] [address] Potassium [Moles/Vol] 4.3 mmol/L Normal 3.7-5.1 [facility] Comment on above: Order Comment: Speci men Type: BLOOD SPECIMEN Ordering Facility: [facility] Address: [address] [place] [address] Performed By: #### 2 4323-8 #### [facility] CLIA [id number] [address] [place] [address] Sodium [Moles/Vol] 140 mmol/L Normal 136-144 [facility] Comment on above: Order Comment: Speci men Type: BLOOD SPECIMEN Ordering Facility: [facility] Address: [address] [place] [address] Performed By: #### 2 4323-8 #### [facility] CLIA [id number] [address] [place] [address] Urea nitrogen [Mass/Vol] 12 mg/dL Normal 7-21 [facility] Comment on above: Order Comment: Speci men Type: BLOOD SPECIMEN Ordering Facility: [facility] Address: [address] [place] [address] Performed By: #### 2 4323-8 #### [facility] CLIA [id number] [address] [place] [address] CBC W Auto Differential pane l (Bld)on 05-09-2024 Basophils (Bld) [#/Vol] 0.00 10*3/uL Normal <0.11 [facility] Comment on above: Order Comment: Speci men Type: BLOOD SPECIMEN Ordering Facility: [facility] Address: [address] [place] [address] Performed By: #### 5 7021-8 #### [facility] CLIA [id number] [address] [place] [address] [place] Basophils/100 WBC (Bld) 0.0 % Normal [facility] Comment on above: Order Comment: Speci men Type: BLOOD SPECIMEN Ordering Facility: [facility] Address: [address] [place] [address] Performed By: #### 5 7021-8 #### [facility] CLIA [id number] [address] [place] [address] [place] Differential cell count method Nom (Bld) Manual Normal [facility] Comment on above: Order Comment: Speci men Type: BLOOD SPECIMEN Ordering Facility: [facility] Address: [address] [place] [address] Performed By: #### 5 7021-8 #### [facility] CLIA [id number] [address] [place] [address] [place] Eosinophils (Bld) [#/Vol] 0.05 10*3/uL Normal <0.46 [facility] Comment on above: Order Comment: Speci men Type: BLOOD SPECIMEN Ordering Facility: [facility] Address: [address] [place] [address] Performed By: #### 5 7021-8 #### [facility] CLIA [id number] [address] [place] [address] [place] Eosinophils/100 WBC (Bld) 0.9 % Normal [facility] Comment on above: Order Comment: Speci men Type: BLOOD SPECIMEN Ordering Facility: [facility] Address: [address] [place] [address] Performed By: #### 5 7021-8 #### [facility] CLIA [id number] [address] [place] [address] [place] Erythrocyte distribution width (RBC) [Ratio] 14.8 % Normal 11.5-15.0 [facility] Comment on above: Order Comment: Speci men Type: BLOOD SPECIMEN Ordering Facility: [facility] Address: [address] [place] [address] Performed By: #### 5 7021-8 #### [facility] CLIA [id number] [address] [place] [address] [place] Hematocrit (Bld) [Volume fraction] 35.4 % Low 36.0-46.0 [facility] Comment on above: Order Comment: Speci men Type: BLOOD SPECIMEN Ordering Facility: [facility] Address: [address] [place] [address] Performed By: #### 5 7021-8 #### [facility] CLIA [id number] [address] [place] [address] [place] Hemoglobin (Bld) [Mass/Vol] 11.7 g/dL Normal 11.5-15.5 [facility] Comment on above: Order Comment: Speci men Type: BLOOD SPECIMEN Ordering Facility: [facility] Address: [address] [place] [address] Performed By: #### 5 7021-8 #### [facility] CLIA [id number] [address] [place] [address] [place] Lymphocytes (Bld) [#/Vol] 0.73 10*3/uL Low 1.00-4.00 [facility] Comment on above: Order Comment: Speci men Type: BLOOD SPECIMEN Ordering Facility: [facility] Address: [address] [place] [address] Performed By: #### 5 7021-8 #### [facility] CLIA [id number] [address] [place] [address] [place] Lymphocytes/100 WBC (Bld) 13.8 % Normal [facility] Comment on above: Order Comment: Speci men Type: BLOOD SPECIMEN Ordering Facility: [facility] Address: [address] [place] [address] Performed By: #### 5 7021-8 #### [facility] CLIA [id number] [address] [place] [address] [place] MCH (RBC) [Entitic mass] 29.9 pg Normal 26.0-34.0 [facility] Comment on above: Order Comment: Speci men Type: BLOOD SPECIMEN Ordering Facility: [facility] Address: [address] [place] [address] Performed By: #### 5 7021-8 #### [facility] CLIA [id number] [address] [place] [address] [place] MCHC (RBC) [Mass/Vol] 33.1 g/dL Normal 30.5-36.0 [facility] Comment on above: Order Comment: Speci men Type: BLOOD SPECIMEN Ordering Facility: [facility] Address: [address] [place] [address] Performed By: #### 5 7021-8 #### [facility] CLIA [id number] [address] [place] [address] [place] MCV (RBC) [Entitic vol] 90.5 fL Normal 80.0-100.0 [facility] Comment on above: Order Comment: Speci men Type: BLOOD SPECIMEN Ordering Facility: [facility] Address: [address] [place] [address] Performed By: #### 5 7021-8 #### [facility] CLIA [id number] [address] [place] [address] [place] Monocytes (Bld) [#/Vol] 0.37 10*3/uL Normal <0.87 [facility] Comment on above: Order Comment: Speci men Type: BLOOD SPECIMEN Ordering Facility: [facility] Address: [address] [place] [address] Performed By: #### 5 7021-8 #### [facility] CLIA [id number] [address] [place] [address] [place] Monocytes/100 WBC (Bld) 6.9 % Normal C [facility] Comment on above: Order Comment: Speci men Type: BLOOD SPECIMEN Ordering Facility: [facility] Address: [address] [place] [address] Performed By: #### 5 7021-8 #### [facility] CLIA [id number] [address] [place] [address] [place] Neutrophils (Bld) [#/Vol] 4.17 10*3/uL Normal 1.45-7.50 [facility] Comment on above: Order Comment: Speci men Type: BLOOD SPECIMEN Ordering Facility: [facility] Address: [address] [place] [address] Performed By: #### 5 7021-8 #### [facility] CLIA [id number] [address] [place] [address] [place] Neutrophils/100 WBC (Bld) 78.4 % Normal [facility] Comment on above: Order Comment: Speci men Type: BLOOD SPECIMEN Ordering Facility: [facility] Address: [address] [place] [address] Performed By: #### 5 7021-8 #### [facility] CLIA [id number] [address] [place] [address] [place] Nucleated RBC (Bld) [#/Vol] 10*3/uL Normal <0.01 [facility] Comment on above: Order Comment: Speci men Type: BLOOD SPECIMEN Ordering Facility: [facility] Address: [address] [place] [address] Performed By: #### 5 7021-8 #### [facility] CLIA [id number] [address] [place] [address] [place] Nucleated RBC/100 WBC (Bld) [Ratio] 0.0 /100 WBC Normal [facility] Comment on above: Order Comment: Speci men Type: BLOOD SPECIMEN Ordering Facility: [facility] Address: [address] [place] [address] Performed By: #### 5 7021-8 #### [facility] CLIA [id number] [address] [place] [address] [place] Ovalocytes LM Ql (Bld) Few Normal Cl [facility] Comment on above: Order Comment: Speci men Type: BLOOD SPECIMEN Ordering Facility[facility] Address: [address] [place] [address] Performed By: #### 5 7021-8 #### [facility] CLIA [id number] [address] [place] [address] [place] Platelet mean volume (Bld) [Entitic vol] 9.8 fL Normal 9.0-12.7 [facility] Comment on above: Order Comment: Speci men Type: BLOOD SPECIMEN Order[facility] Facility[facility] Address: [address] [place] [address] Performed By: #### 5 7021-8 #### [facility] CLIA [id number] [address] [place] [address] [place] Platelets (Bld) [#/Vol] 415 10*3/uL High 150-400 [facility] Comment on above: Order Comment: Speci men Type: BLOOD SPECIMEN Order[facility] Facility[facility] Address: [address] [place] [address] Performed By: #### 5 7021-8 #### [facility] CLIA [id number] [address] [place] [address] [place] Platelets Estimate (Bld) [#/Vol] Increased Normal [facility] Comment on above: Order Comment: Speci men Type: BLOOD SPECIMEN Order[facility] Facility[facility] Address: [address] [place] [address] Performed By: #### 5 7021-8 #### [facility] CLIA [id number] [address] [place] [address] [place] Polychromasia LM Ql (Bld) Slight Normal [facility] Comment on above: Order Comment: Speci men Type: BLOOD SPECIMEN Ordering Facility[facility] Address: [address] [place] [address] Performed By: #### 5 7021-8 #### [facility] CLIA [id number] [address] [place] [address] [place] RBC (Bld) [#/Vol] 3.91 10*6/uL Normal 3.90-5.20 [facility] Comment on above: Order Comment: Speci men Type: BLOOD SPECIMEN Ordering Facility[facility] Address: [address] [place] [address] Performed By: #### 5 7021-8 #### [facility] CLIA [id number] [address] [place] [address] [place] RBC FRAGMENTS Few Abnormal None Seen [facility] Comment on above: Order Comment: Speci men Type: BLOOD SPECIMEN Ordering Facility[facility] Address: [address] [place] [address] Performed By: #### 5 7021-8 #### [facility] CLIA [id number] [address] [place] [address] [place] RED CELL MORPH Reviewed: see result s of individual morphologies Normal [facility] Comment on above: Order Comment: Speci men Type: BLOOD SPECIMEN Ordering Facility[facility] Address: [address] [place] [address] Performed By: #### 5 7021-8 #### [facility] CLIA [id number] [address] [place] [address] [place] WBC (Bld) [#/Vol] 5.32 10*3/uL Normal 3.70-11.00 [facility] Comment on above: Order Comment: Speci men Type: BLOOD SPECIMEN Ordering Facility[facility] Address: [address] [place] [address] Performed By: #### 5 7021-8 #### [facility] CLIA [id number] [address] [id number] [facility] Etta 05-09-2024 CNPN Telephone (PULMMN) MIRIAN CORRALES ([id number]) 1955 F Date Time Provider Department 05/09/24 VANDANA STEELE During your visit today, we recorded the following information about you: Vandana Steele MD 05/09/2024 8:54 PM Addendum Please schedule patient for hospital follow up appt for rash in a resident continuity clinic in [address]. [address] patch test order for appt later this fall. Nishi Lima 05/12/2024 4:03 PM Signed Lvm for pt to schedule with derm Allergies As of Date: 05/09/2024 Noted Allergy Reaction WHEAT 08/24/2019 7 - Swelling DAIRY AID (LACTASE) 08/24/2019 7 - Swelling Comments: Bloating Date Reviewed: 05/09/2024 Reviewed by: Shayy Gonzalez, RN - Fully Assessed Primary Visit Diagnosis:Allergic contact dermatitis due to other agents [L23.89] Order(s):DERMATOLOGY PATCH TEST CLINIC [[id number]] Order #: [id number]: 1 FUTURE Prescriptions as of 05/12/2024 - predniSONE (DELTASONE) 10 mg tablet Take 6 tablets by mouth two times a day for 6 days, THEN 6 tablets once daily for 7 days, THEN two and a half tablet once daily for 7 days, THEN 1 tablet once daily for 7 days, THEN a half tablet once daily for 7 days. - triamcinolone acetonide (KENALOG) 0.1 % ointment Apply to affected area two times a day. - white petrolatum (AQUAPHOR) 41 % topical ointment Apply to affected area as needed. - hydrOXYzine HCl (ATARAX) 25 mg tablet Take 1 tablet by mouth every 8 hours as needed for itching/rash for up to 7 days. - pantoprazole DR (PROTONIX) 40 mg tablet Take 1 tablet by mouth daily at 6 am. Patient should start on May 11, 2024. - fexofenadine (SHANTELLE) 60 mg tablet Take 60 mg by mouth once daily. - Lactobacillus acidophilus (PROBIOTIC ORAL) Take 1 capsule by mouth once daily. - Cholecalciferol, Vitamin D3, 25 mcg (1,000 unit) cap Take 1,000 Units by mouth once daily. 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 Telephone (PULMMN) MIRIAN CORRALES ([id number]) 1955 F Date Time Provider Department 05/09/24 VANDANA STEELE PULN During your visit today, we recorded the following information about you: Vandana Steele MD 05/09/2024 8:53 PM Signed Opened in error Allergies As of Date: 05/09/2024 Noted Allergy Reaction WHEAT 08/24/2019 7 - Swelling DAIRY AID (LACTASE) 08/24/2019 7 - Swelling Comments: Bloating Date Reviewed: 05/09/2024 Reviewed by: Shayy Gonzalez, RN - Fully Assessed Prescriptions as of 05/09/2024 - hydrOXYzine HCl (ATARAX) 10 mg tablet Take 10 mg by mouth at bedtime as needed for itching/rash. - sulfamethoxazole-trime thoprim (BACTRIM DS) 800-160 mg per tablet Take 1 tablet by mouth every 12 hours. - fexofenadine (SHANTELLE) 60 mg tablet Take 60 mg by mouth once daily. - Lactobacillus acidophilus (PROBIOTIC ORAL) Take 1 capsule by mouth once daily. - Cholecalciferol, Vitamin D3, 25 mcg (1,000 unit) cap Take 1,000 Units by mouth once daily. 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 Age-related osteoporosis without current pathol*05/06/2024 Lymphadenopathy [R59.1] 05/06/2024 Eosinophilia [D72.10] 05/08/2024 Eczema [L30.9] 05/08/2024 Encounter Status:Closed by VANDANA STEELE on 05/09/24 [facility] CONSULT PROGon 05-09-2024 CONSULT PROG HNO ID: [id number] Author: ANTELMO URENA MD, PhD Service: Dermatology Author Type: Physician Type: Consult Progress Note Filed: 05/09/2024 22:42 Note Text: DERMATOLOGY HOSPITAL CONSULT SERVICE PROGRESS NOTE Interval Events - Rash appears slightly improved today - Biopsy results as below - MIKKI (+) 1:1280 PHYSICAL EXAM BP 113/55 Pulse 93 Temp 36.9 ?C (98.4 ?F) (Oral) Resp 17 Wt 59 kg (130 lb) SpO2 95% BMI 20.98 kg/m? GEN: Age appropriate Skin examination was performed of the scalp, face, neck, chest, abdomen, back, BUE including hands, BLE including feet, buttocks, groin and was pertinent for: - erythematous papules coalesced into plaques on the trunk - erythematous papules on the extremities and face, sparing the nose and lightening of forehead - inguinal, cervical, occipital and right lateral chest wall lymphadenopathy noted previously DATA LABORATORY TESTS: CBC: Recent Labs 05/09/24 0828 05/08/24 0932 05/07/24 0647 05/06/24 0754 05/05/24 1620 05/05/24 1209 05/03/24 1250 WBC 5.32 11.68* 11.09* 11.32* 11.70* 12.89* 11.35* HB 11.7 12.3 12.4 12.9 13.6 12.8 11.7 HCT 35.4* 37.9 37.7 40.6 42.9 39.7 36.0 PLT 415* 437* 410* 440* 470* 499* 365 MCV 90.5 92.4 94.5 94.0 94.9 93.9 94.2 RDWCV 14.8 14.8 14.4 14.6 14.4 14.5 14.6 NEUTP -- 37.8 36.5 36.8 57.0 73.9 51.5 ABSNEUT -- 4.41 4.05 4.17 6.67 9.53* 5.84 LYMPHP -- 15.2 11.2 14.0 15.0 7.8 11.7 MONOP -- 7.4 8.0 8.0 7.5 5.3 8.0 EODINP -- 39.0 43.4 40.3 19.2 12.0 27.3 COAG: No results for input(s): APTT , INR in the last 168 hours. BMP: Recent Labs 05/09/24 0827 05/08/24 0932 05/07/24 0646 05/06/24 0754 05/05/24 1620 05/05/24 1209 05/03/24 1250 GLUC 123* 94 88 97 117* 111* 92 NA 138 141 138 138 134* 135* 142 K 4.0 3.9 4.3 4.3 4.7 4.4 4.0 CHLOR 104 108* 106 107 104 104 109* CO2 24 23 22 20* 22 22 27 ANION 10 10 10 11 8 9 6* BUN 14 12 10 14 14 13 15 CREAT 0.57* 0.70 0.67 0.72 0.76 0.79 0.74 CHEM: Recent Labs 05/09/24 0827 05/08/24 0932 05/07/24 0646 05/06/24 0754 05/05/24 1620 05/05/24 1209 05/03/24 1250 ALB 3.3* 3.0* 3.1* 3.0* 3.8* 3.6* 3.8* TPROT -- -- -- -- 6.7 6.3 6.9 CA 8.9 8.3* 8.5 8.4* 9.0 9.0 9.4 HEPATIC: Recent Labs 05/05/24 1620 05/05/24 1209 05/03/24 1250 ALKPHOS 82 76 68 ALT 16 16 14 AST 18 20 19 TBILI 0.2 0.3 0.2 IMAGING: CT Chest No acute intrathoracic findings. Mediastinal, bilateral axillary, and subpectoral/intramamma ry lymphadenopathy concerning for lymphoproliferative disorder/malignancy. Recommend tissue sampling for further evaluation. BIOPSY: FINAL DIAGNOSIS A. Skin, left hip, punch biopsy: -Spongiotic dermatitis with eosinophils, see comment. B. Skin, left hip, punch biopsy: -Negative direct immunofluorescence, see comment. Diagnosis Comment A. Histologic sections show a compact stratum corneum with areas of parakeratotic serum exudate overlying an acanthotic and markedly spongiotic epidermis with exocytosis of lymphocytes and eosinophils. Within the dermis, there is a mildly dense but diffuse perivascular and interstitial lymphohistiocytic infiltrate with rare eosinophils. Vasculitis is not identified. B. Direct immunofluorescence antibody localization demonstrate negative immunoreactivity for immunoglobulins IgG, IgA, IgM and complement C3 on sections of frozen skin. Overall, these features are those of spongiotic dermatitis with eosinophils and is most consistent with a hypersensitivity dermatitis. While a tissue eosinophilia could result from a systemic eosinophilia, specific features of a hypereosinophilic syndrome are not identified. Correlation with clinical and hematologic features is recommended. ASSESSMENT: Mirian Corrales is a 68 year old female patient with a past medical history of: osteoporosis and varicose veins presented to the ED from derm clinic for rash with associated significant eosinophilia. Pt found to have lymphadenopathy on exam and reports recent weight loss. Reports rash is responsive to systemic steroids. Biopsy results showing spongiotic dermatitis indicating possible contact dermatitis, atopic dermatitis, or an eczematous drug reaction. No indication of lymphoma or underlying cutaneous malignancy on pathology. Suspect lymphadenopathy could be explained by substantial ongoing inflammation caused by rash. PLAN: - Trend CBC w/diff and CMP - Begin IVMP taper: 48mg BID for one week, then 48mg daily for one week, then 18mg daily for one week, then 9mg daily for one week, then 4mg daily for one week - Taper can be converted to PO equivalent, would recommend pt be observed inpatient on PO steroids given reported abdominal/GI symptoms - Continue triamcinolone 0.1% cream BID to rash affected areas, avoid face, groin, skin folds - Will arrange derm outpatient follow up for 6 (more content not included)... Normal [facility] Renal function 2000 panelon 05-09-2024 Albumin [Mass/Vol] 3.3 g/dL Low 3.9-4.9 [facility] Comment on above: Order Comment: Margarita zendejas Type: BLOOD SPECIMEN Ordering Facility: [facility] Address: [address] [place] [address] Performed By: #### 2 4323-8 #### [facility] CLIA [id number] [address] [place] [address] 46154 Anion gap [Moles/Vol] 10 mmol/L Normal 8-15 [facility] Comment on above: Order Comment: Speci cristiana Type: BLOOD SPECIMEN Ordering Facility: [facility] Address: [address] [place] [address] Performed By: #### 2 4323-8 #### [facility] CLIA [id number] [address] [place] [address] 07774 Calcium [Mass/Vol] 8.9 mg/dL Normal 8.5-10.2 [facility] Comment on above: Order Comment: Margarita zendejas Type: BLOOD SPECIMEN Ordering Facility: [facility] Address: [address] [id number] Performed By: #### 2 4323-8 #### [facility] CLIA [id number] [address] [place] [address] Chloride [Moles/Vol] 104 mmol/L Normal 98-107 [facility] Comment on above: Order Comment: Speci men Type: BLOOD SPECIMEN Ordering Facility: [facility] Address: [address] [place] [address] Performed By: #### 2 4323-8 #### [facility] CLIA [id number] [address] [place] [address] 97438 CO2 [Moles/Vol] 24 mmol/L Normal 22-30 [facility] Comment on above: Order Comment: Speci men Type: BLOOD SPECIMEN Ordering Facility: [facility] Address: [address] [place] [address] Performed By: #### 2 4323-8 #### [facility] CLIA [id number] [address] [place] [address] 92141 Creatinine [Mass/Vol] 0.57 mg/dL Low 0.58-0.96 [facility] Comment on above: Order Comment: Speci men Type: BLOOD SPECIMEN Ordering Facility: [facility] Address: [address] [place] [address] Performed By: #### 2 4323-8 #### [facility] CLIA [id number] [address] [place] [address] 66701 Creatinine and Glomerular filtration rate.predicted panel (S/P/Bld) 99 mL/min/1.73m??? Normal >=60 [facility] Comment on above: Order Comment: Speci men Type: BLOOD SPECIMEN Ordering Facility: [facility] Address: [address] [place], [place] [address] Result Comment: Estela mated Glomerular Filtration Rate (eGFR) is calculated using the 2020 CKD-EPI creatinine equation. This equation utilizes serum creatinine, sex, and age as parameters. The creatinine assay has traceable calibration to isotope dilution-mass spectrometry. Refer to KDIGO guidelines for clinical interpretation. In patients with unstable renal function, e.g. those with acute kidney injury, the eGFR may not accurately reflect actual GFR. Performed By: #### 2 4323-8 #### [facility] CLIA [id number] [address] [place] [address] 15460 Glucose [Mass/Vol] 123 mg/dL High 74-99 [facility] Comment on above: Order Comment: Margarita zendejas Type: BLOOD SPECIMEN Ordering Facility: [facility] Address: [address] [place] [address] Result Comment: The [place] Diabetes Association (ADA) provides guidance for cutoff values for fasting glucose and random glucose. The ADA defines fasting as no caloric intake for at least 8 hours. Fasting plasma glucose results between 100 to 125 mg/dL indicate increased risk for diabetes (prediabetes). Fasting plasma glucose results greater than or equal to 126 mg/dL meet the criteria for diagnosis of diabetes. In the absence of unequivocal hyperglycemia, results should be confirmed by repeat testing. In a patient with classic symptoms of hyperglycemia or hyperglycemic crisis, random plasma glucose results greater than or equal to 200 mg/dL meet the criteria for diagnosis of diabetes. Reference: Standards of Medical Care in Diabetes 2016, [place] Diabetes Association. Diabetes Care. 2016.39(Suppl 1). Performed By: #### 2 4323-8 #### [facility] CLIA [id number] [address] [place] [address] 76382 Phosphate [Mass/Vol] 4.2 mg/dL Normal 2.7-4.8 [facility] Comment on above: Order Comment: Margarita zendejas Type: BLOOD SPECIMEN Ordering Facility: [facility] Address: [address] [place] [address] Performed By: #### 2 4323-8 #### [facility] CLIA [id number] [address] [place] [address] 18533 Potassium [Moles/Vol] 4.0 mmol/L Normal 3.7-5.1 [facility] Comment on above: Order Comment: Margarita zendejas Type: BLOOD SPECIMEN Ordering Facility: [facility] Address: [address] [place] [address] Performed By: #### 2 4323-8 #### [facility] CLIA [id number] [address] [place] [address] Sodium [Moles/Vol] 138 mmol/L Normal 136-144 [facility] Comment on above: Order Comment: Speci men Type: BLOOD SPECIMEN Ordering Facility: [facility] Address: [address] [place] [address] Performed By: #### 2 4323-8 #### [facility] CLIA [id number] [address] [place] [address] 20101 Urea nitrogen [Mass/Vol] 14 mg/dL Normal 7-21 [facility] Comment on above: Order Comment: Speci men Type: BLOOD SPECIMEN Ordering Facility: [facility] Address: [address] [place] [address] Performed By: #### 2 4323-8 #### [facility] CLIA [id number] [address] [place] [address] 94492 CBC W Auto Differential pane l (Bld)on 05-08-2024 Basophils (Bld) [#/Vol] 0.04 10*3/uL Normal <0.11 [facility] Comment on above: Order Comment: Speci men Type: BLOOD SPECIMEN Ordering Facility: [facility] Address: [address] [place] [address] Performed By: #### 2 4323-8 #### [facility] CLIA [id number] [address] [place] [address] 66845 Basophils/100 WBC (Bld) 0.3 % Normal C [facility] Comment on above: Order Comment: Speci men Type: BLOOD SPECIMEN Ordering Facility: [facility] Address: [address] [place] [address] Performed By: #### 2 4323-8 #### [facility] CLIA [id number] [address] [place] [address] 94313 Differential cell count method Nom (Bld) Auto Normal [facility] Comment on above: Order Comment: Speci men Type: BLOOD SPECIMEN Ordering Facility: [facility] Address: [address] [place] [address] Performed By: #### 2 4323-8 #### [facility] CLIA [id number] [address] [place] [address] Eosinophils (Bld) [#/Vol] 4.56 10*3/uL High <0.46 [facility] Comment on above: Order Comment: Speci men Type: BLOOD SPECIMEN Ordering Facility: [facility] Address: [address] [place] [address] Performed By: #### 2 4323-8 #### [facility] CLIA [id number] [address] [place] [address] 81193 Eosinophils/100 WBC (Bld) 39.0 % Normal [facility] Comment on above: Order Comment: Speci men Type: BLOOD SPECIMEN Ordering Facility: [facility] Address: [address] [place] [address] Performed By: #### 2 4323-8 #### [facility] CLIA [id number] [address] [place] [address] 69281 Erythrocyte distribution width (RBC) [Ratio] 14.8 % Normal 11.5-15.0 [facility] Comment on above: Order Comment: Speci men Type: BLOOD SPECIMEN Ordering Facility: [facility] Address: [address] [place] [address] Performed By: #### 2 4323-8 #### [facility] CLIA [id number] [address] [place] [address] 07601 Hematocrit (Bld) [Volume fraction] 37.9 % Normal 36.0-46.0 [facility] Comment on above: Order Comment: Speci men Type: BLOOD SPECIMEN Ordering Facility: [facility] Address: [address] [place] [address] Performed By: #### 2 4323-8 #### [facility] CLIA [id number] [address] [place] [address] 91848 Hemoglobin (Bld) [Mass/Vol] 12.3 g/dL Normal 11.5-15.5 [facility] Comment on above: Order Comment: Speci men Type: BLOOD SPECIMEN Ordering Facility: [facility] Address: [facility] [place] [address] Performed By: #### 2 4323-8 #### [facility] CLIA [id number] [address] [place] [address] 00822 Immature granulocytes (Bld) [#/Vol] 0.04 10*3/uL Normal <0.10 [facility] Comment on above: Order Comment: Speci men Type: BLOOD SPECIMEN Ordering Facility: [facility] Address: [address] [place] [address] Performed By: #### 2 4323-8 #### [facility] CLIA [id number] [address] [place] [address] 77998 Immature granulocytes/100 WBC (Bld) 0.3 % Normal [facility] Comment on above: Order Comment: Speci men Type: BLOOD SPECIMEN Ordering Facility: [facility] Address: [address] [place] [address] Performed By: #### 2 4323-8 #### [facility] CLIA [id number] [address] [place] [address] 57578 Lymphocytes (Bld) [#/Vol] 1.77 10*3/uL Normal 1.00-4.00 [facility] Comment on above: Order Comment: Speci men Type: BLOOD SPECIMEN Ordering Facility: [facility] Address: [address] [place] [address] Performed By: #### 2 4323-8 #### [facility] CLIA [id number] [address] [place] [address] 07110 Lymphocytes/100 WBC (Bld) 15.2 % Normal [facility] Comment on above: Order Comment: Speci men Type: BLOOD SPECIMEN Ordering Facility: [facility] Address: [address] [place] [address] Performed By: #### 2 4323-8 #### [facility] CLIA [id number] [facility] [place] [address] MCH (RBC) [Entitic mass] 30.0 pg Normal 26.0-34.0 [facility] Comment on above: Order Comment: Speci men Type: BLOOD SPECIMEN Ordering Facility: [facility] Address: [address] [place], [place] [address] Performed By: #### 2 4323-8 #### [facility] CLIA [id number] [address] [place] [address] 66789 MCHC (RBC) [Mass/Vol] 32.5 g/dL Normal 30.5-36.0 [facility] Comment on above: Order Comment: Speci men Type: BLOOD SPECIMEN Ordering Facility: [facility] Address: [address] [place] [address] Performed By: #### 2 4323-8 #### [facility] CLIA [id number] [address] [place] [address] 91001 MCV (RBC) [Entitic vol] 92.4 fL Normal 80.0-100.0 C [facility] Comment on above: Order Comment: Speci men Type: BLOOD SPECIMEN Ordering Facility: [facility] Address: [address] [place] [address] Performed By: #### 2 4323-8 #### [facility] CLIA [id number] [address] [place] [address] 15329 Monocytes (Bld) [#/Vol] 0.86 10*3/uL Normal <0.87 [facility] Comment on above: Order Comment: Speci men Type: BLOOD SPECIMEN Ordering Facility: [facility] Address: [address] [place] [address] Performed By: #### 2 4323-8 #### [facility] CLIA [id number] [address] [place] [address] 09350 Monocytes/100 WBC (Bld) 7.4 % Normal C [facility] Comment on above: Order Comment: Speci men Type: BLOOD SPECIMEN Ordering Facility: [facility] Address: [address] [place] [address] Performed By: #### 2 4323-8 #### [facility] CLIA [id number] [address] [place] [address] 17636 Neutrophils (Bld) [#/Vol] 4.41 10*3/uL Normal 1.45-7.50 [facility] Comment on above: Order Comment: Speci men Type: BLOOD SPECIMEN Ordering Facility: [facility] Address: [address] [id number] Performed By: #### 2 4323-8 #### [facility] CLIA [id number] [address] [place] [address] 72013 Neutrophils/100 WBC (Bld) 37.8 % Normal [facility] Comment on above: Order Comment: Speci men Type: BLOOD SPECIMEN Ordering Facility: [facility] Address: [address] [place] [address] Performed By: #### 2 4323-8 #### [facility] CLIA [id number] [address] [place] [address] 39610 Nucleated RBC (Bld) [#/Vol] 10*3/uL Normal <0.01 [facility] Comment on above: Order Comment: Speci men Type: BLOOD SPECIMEN Ordering Facility: [facility] Address: [address] [place] [address] 31438 Performed By: #### 2 4323-8 #### [facility] CLIA [id number] [address] [place] [address] 96928 Nucleated RBC/100 WBC (Bld) [Ratio] 0.0 /100 WBC Normal [facility] Comment on above: Order Comment: Speci men Type: BLOOD SPECIMEN Ordering Facility: [facility] Address: [address] [id number] Performed By: #### 2 4323-8 #### [facility] CLIA [id number] [address] [place] [address] 81646 Platelet mean volume (Bld) [Entitic vol] 9.7 fL Normal 9.0-12.7 [facility] Comment on above: Order Comment: Speci men Type: BLOOD SPECIMEN Ordering Facility: [facility] Address: [address] [place] [address] Performed By: #### 2 4323-8 #### [facility] CLIA [id number] [address] [place] [address] 02637 Platelets (Bld) [#/Vol] 437 10*3/uL High 150-400 [facility] Comment on above: Order Comment: Speci men Type: BLOOD SPECIMEN Ordering Facility: [facility] Address: [address] [place] [address] Performed By: #### 2 4323-8 #### [facility] CLIA [id number] [address] [place] [address] 08769 RBC (Bld) [#/Vol] 4.10 10*6/uL Normal 3.90-5.20 [facility] Comment on above: Order Comment: Speci men Type: BLOOD SPECIMEN Ordering Facility: [facility] Address: [address] [place], [place] [address] Performed By: #### 2 4323-8 #### [facility] CLIA [id number] [address] [place] [address] 60916 WBC (Bld) [#/Vol] 11.68 10*3/uL High 3.70-11.00 [facility] Comment on above: Order Comment: Speci men Type: BLOOD SPECIMEN Ordering Facility: [facility] Address: [address] [place], [place] [address] Performed By: #### 2 4323-8 #### [facility] CLIA [id number] [address] [place] [address] 22313 CONSULT PROGon 05-08-2024 CONSULT PROG HNO ID: [id number] Author: TOÑITO HO DO Service: Infectious Disease Author Type: Physician Type: Consult Progress Note Filed: 05/08/2024 14:08 Note Text: INFECTIOUS DISEASE CONSULT NOTE SERVICE DATE: 05/08/2024 Interval updates: -rash is worsening, feeling very itchy. Uncomfortable from weeping rash -path is still in process OBJECTIVE: CURRENT ANTIMICROBIALS: none MEDICATIONS: Current medications reviewed Current Facility-Administered Medications Medication Dose Route Frequency Provider Last Rate Last Admin hydrOXYzine HCl 25 mg tab(s) (ATARAX) 25 mg ORAL q 8 H PRN Renea Davalos MD 25 mg at 05/07/24 1040 diphenhydrAMINE 50 mg injection (BENADRYL) 50 mg INTRAVENOUS q 6 H PRN Renea Davalos MD 50 mg at 05/07/24 1112 LORazepam 0.5 mg injection (ATIVAN) 0.5 mg INTRAVENOUS q 6 H PRN Renea Davalos MD triamcinolone acetonide 0.1 % (KeNALog) TOPICAL BID Renea Davalos MD enoxaparin 40 mg injection (LOVENOX) 40 mg SUBCUTANEOUS q 24 HR Kirk Jasmine MD 40 mg at 05/06/24 1041 white petrolatum - mineral oil cream (EUCERIN CREAM) TOPICAL PRN Alma Cooley DO Given at 05/06/242019 NaCl 0.9% iv flush bag 20 mL INTRAVENOUS PRN Inocente Spring MD cholecalciferol 1,000 Units tab(s) (VITAMIN D3) 1,000 Units ORAL DAILY Inocente Spring MD 1,000 Units at 05/08/24 0954 ALLERGIES Allergen Reactions Wheat Swelling Dairy Aid [Lactase] Swelling Bloating No past surgical history on file. FAMILY HISTORY Problem Relation Age of Onset Thyroid Mother Skin Cancer Father 88 Skin Cancer Brother 45 Ovarian cancer Paternal Grandmother 77 Skin Cancer Niece 25 Breast Cancer Maternal Aunt 42 Breast Cancer Paternal Aunt 75 Osteoporosis Paternal Aunt Heart Attack Maternal Uncle 80 Reviewed. No identified heritable predisposition to infection Immunization History Administered Date(s) Administered zoster (RZV) vaccine, recombinant (SHINGRIX) 11/27/2019 03/08/2020 OBJECTIVE: BP 111/64 Pulse 87 Temp 36.5 ?C (97.7 ?F) (Oral) Resp 17 Wt 59 kg (130 lb) SpO2 99% BMI 20.98 kg/m? General: Generalized scaling red rash, sparing only the bridge of her nose, palms and soles HEENT: No scleral icterus Resp: no distress no supplemental O2 Neuro: alert and oriented Psych: affect appropriate LDA: Lines, Drains, and Airways Line Duration Peripheral 05/05/24 1620 [facility] Midline Left Antecubital 20 Gauge 2 days Laboratory and radiologic data reviewed CBC: Lab Results Component Value Date HB 12.3 05/08/2024 HCT 37.9 05/08/2024 WBC 11.68 05/08/2024 AutoDiff: UA: No results found for: PH , SPGR , UGLUC , UBILI , UKET , UHB , UPROT , UROBIL , UWBC , SSA Microbiology: No results found for: CULT No results found for the last 90 days. Imaging reviewed ASSESSMENT: Mirian Corrales is a 68 year old female that has been in good health (osteoporosis) presenting with a generalized itching, scaling rash only sparing the bridge of her nose, palms and soles for several weeks that has led to many ED visits, partially steroid responsive. She had two episodes of this rash. The first itme as in December 2023 where is was localized and improved (trhe patient thinks with Augmentin that she was taking for a ?uvula infection) and it recurred, but this time whole body when she was in [facility] a few weeks ago. 05/05/24 with Mediastinal, bilateral axillary, and subpectoral/intramamma ry lymphadenopathy concerning for lymphoproliferative disorder/malignancy RECOMMENDATIONS: 1. Continue to hold antibiotics. I think this is not likely to be infectious. We discussed this at bedside today, and I encouraged a LN biopsy if she feels comfortable proceeding with such. Will continue to follow peripherally for path results. Ongoing monitoring for therapeutic and adverse effects to antibiotics Follow up: TBD D/w primary team I spent a total of 35 minutes on the date of the service which included preparing to see the patient, ibks-ce-fear patient care, completing clinical documentation, performing a medically appropriate examination, counseling and educating the patient/family/caregiv er, and communicating with other HCPs (not separately reported). Toñito Ho DO, PhD Infectious Disease Staff Physician pager Normal [facility] CONSULT PROG HNO ID: [id number] Author: ANTELMO URENA MD, PhD Service: Dermatology Author Type: Physician Type: Consult Progress Note Filed: 05/08/2024 22:37 Note Text: DERMATOLOGY HOSPITAL CONSULT SERVICE PROGRESS NOTE Interval Events - Rash appears stable, with noted sparing of the nose - Biopsy results as below - Eos remain elevated PHYSICAL EXAM BP 101/53 Pulse 93 Temp 36.5 ?C (97.7 ?F) (Oral) Resp 16 Wt 59 kg (130 lb) SpO2 (!) 80% BMI 20.98 kg/m? GEN: Age appropriate Skin examination was performed of the scalp, face, neck, chest, abdomen, back, BUE including hands, BLE including feet, buttocks, groin and was pertinent for: - erythematous papules coalesced into plaques on the trunk - erythematous papules on the extremities and face, sparing the nose - inguinal, cervical, occipital and right lateral chest wall lymphadenopathy noted previously DATA LABORATORY TESTS: CBC: Recent Labs 05/08/24 0932 05/07/24 0647 05/06/24 0754 05/05/24 1620 05/05/24 1209 05/03/24 1250 WBC 11.68* 11.09* 11.32* 11.70* 12.89* 11.35* HB 12.3 12.4 12.9 13.6 12.8 11.7 HCT 37.9 37.7 40.6 42.9 39.7 36.0 PLT 437* 410* 440* 470* 499* 365 MCV 92.4 94.5 94.0 94.9 93.9 94.2 RDWCV 14.8 14.4 14.6 14.4 14.5 14.6 NEUTP 37.8 36.5 36.8 57.0 73.9 51.5 ABSNEUT 4.41 4.05 4.17 6.67 9.53* 5.84 LYMPHP 15.2 11.2 14.0 15.0 7.8 11.7 MONOP 7.4 8.0 8.0 7.5 5.3 8.0 EODINP 39.0 43.4 40.3 19.2 12.0 27.3 COAG: No results for input(s): APTT , INR in the last 168 hours. BMP: Recent Labs 05/08/24 0932 05/07/24 0646 05/06/24 0754 05/05/24 1620 05/05/24 1209 05/03/24 1250 GLUC 94 88 97 117* 111* 92 NA 141 138 138 134* 135* 142 K 3.9 4.3 4.3 4.7 4.4 4.0 CHLOR 108* 106 107 104 104 109* CO2 23 22 20* 22 22 27 ANION 10 10 11 8 9 6* BUN 12 10 14 14 13 15 CREAT 0.70 0.67 0.72 0.76 0.79 0.74 CHEM: Recent Labs 05/08/24 0932 05/07/24 0646 05/06/24 0754 05/05/24 1620 05/05/24 1209 05/03/24 1250 ALB 3.0* 3.1* 3.0* 3.8* 3.6* 3.8* TPROT -- -- -- 6.7 6.3 6.9 CA 8.3* 8.5 8.4* 9.0 9.0 9.4 HEPATIC: Recent Labs 05/05/24 1620 05/05/24 1209 05/03/24 1250 ALKPHOS 82 76 68 ALT 16 16 14 AST 18 20 19 TBILI 0.2 0.3 0.2 IMAGING: CT Chest No acute intrathoracic findings. Mediastinal, bilateral axillary, and subpectoral/intramamma ry lymphadenopathy concerning for lymphoproliferative disorder/malignancy. Recommend tissue sampling for further evaluation. BIOPSY: FINAL DIAGNOSIS A. Skin, left hip, punch biopsy: -Spongiotic dermatitis with eosinophils, see comment. B. Skin, left hip, punch biopsy: -Negative direct immunofluorescence, see comment. Diagnosis Comment A. Histologic sections show a compact stratum corneum with areas of parakeratotic serum exudate overlying an acanthotic and markedly spongiotic epidermis with exocytosis of lymphocytes and eosinophils. Within the dermis, there is a mildly dense but diffuse perivascular and interstitial lymphohistiocytic infiltrate with rare eosinophils. Vasculitis is not identified. B. Direct immunofluorescence antibody localization demonstrate negative immunoreactivity for immunoglobulins IgG, IgA, IgM and complement C3 on sections of frozen skin. Overall, these features are those of spongiotic dermatitis with eosinophils and is most consistent with a hypersensitivity dermatitis. While a tissue eosinophilia could result from a systemic eosinophilia, specific features of a hypereosinophilic syndrome are not identified. Correlation with clinical and hematologic features is recommended. ASSESSMENT: Mirian Corrales is a 68 year old female patient with a past medical history of: osteoporosis and varicose veins presented to the ED from derm clinic for rash with associated significant eosinophilia. Pt found to have lymphadenopathy on exam and reports recent weight loss. Reports rash is responsive to systemic steroids. Biopsy results showing spongiotic dermatitis indicating possible contact dermatitis, atopic dermatitis, or an eczematous drug reaction. No indication of lymphoma or underlying cutaneous malignancy on pathology. PLAN: - Biopsy results as above - Trend CBC w/diff and CMP - Start IVMP 50mg q12 - Start triamcinolone 0.1% cream BID to rash affected areas, avoid face, groin, skin folds - Please notify us when pt plans to DC so we may place the referral for patch testing clinic Patient seen and discussed with attending yard caller, Dr. Kaiden Steele MD Dermatology, PGY-3 Please use consult pager [phone], Mon-Fri 8am-5pm. Please call scouring machine operator for on-call resident/pager during all other hours. I agree with the Chief Complaint, ROS, and Past Histories independently gathered by the clinical pit crew support worker and the remaining scribed note accurately describes my personal service to the patient. Clinically (more content not included)... Normal [facility] IGG SUBCLASS 1,2,3,4on 05-08 IgG subclass 1 (S) [Mass/Vol] 734.3 mg/dL Normal 382.4-928.6 [facility] Comment on above: Order Comment: Margarita zendejas Type: BLOOD SPECIMEN Ordering Facility: [facility] Address: [address] [place] [address] Performed By: #### 5 7021-8 #### [facility] CLIA [id number] [address] [place] [address] [place] IgG subclass 2 (S) [Mass/Vol] 187.3 mg/dL Low 241.8-700.3 [facility] Comment on above: Order Comment: Margarita zendejas Type: BLOOD SPECIMEN Ordering Facility: [facility] Address: [address] [place] [address] Performed By: #### 5 7021-8 #### [facility] CLIA [id number] [address] [place] [address] [place] IgG subclass 3 (S) [Mass/Vol] 13.6 mg/dL Low 21.8-176.1 [facility] Comment on above: Order Comment: Speci men Type: BLOOD SPECIMEN Ordering Facility: [facility] Address: [address] [place] [address] Performed By: #### 5 7021-8 #### [facility] CLIA [id number] [address] [place] [address] [place] IgG subclass 4 (S) [Mass/Vol] 51.4 mg/dL Normal 3.9-86.4 [facility] Comment on above: Order Comment: Speci men Type: BLOOD SPECIMEN Ordering Facility: [facility] Address: [address] [place] [address] Performed By: #### 5 7021-8 #### [facility] CLIA [id number] [address] [place] [address] [place] Renal function 2000 panelon 05-08-2024 Albumin [Mass/Vol] 3.0 g/dL Low 3.9-4.9 [facility] Comment on above: Order Comment: Speci men Type: BLOOD SPECIMEN Ordering Facility: [facility] Address: [address] [place] [address] Performed By: #### 5 7021-8 #### [facility] CLIA [id number] [address] [place] [address] [place] Anion gap [Moles/Vol] 10 mmol/L Normal 8-15 [facility] Comment on above: Order Comment: Speci men Type: BLOOD SPECIMEN Ordering Facility: [facility] Address: [address] [place] [address] Performed By: #### 5 7021-8 #### [facility] CLIA [id number] [address] [place] [address] [place] Calcium [Mass/Vol] 8.3 mg/dL Low 8.5-10.2 [facility] Comment on above: Order Comment: Speci men Type: BLOOD SPECIMEN Ordering Facility: [facility] Address: [address] [place] [address] Performed By: #### 5 7021-8 #### [facility] CLIA [id number] [address] [place] [address] [place] Chloride [Moles/Vol] 108 mmol/L High 98-107 [facility] Comment on above: Order Comment: Speci men Type: BLOOD SPECIMEN Ordering Facility: [facility] Address: [address] [place] [address] Performed By: #### 5 7021-8 #### [facility] CLIA [id number] [address] [place] [address] [place] CO2 [Moles/Vol] 23 mmol/L Normal 22-30 [facility] Comment on above: Order Comment: Speci men Type: BLOOD SPECIMEN Ordering Facility: [facility] Address: [address] [place] [address] Performed By: #### 5 7021-8 #### [facility] CLIA [id number] [address] [place] [address] [place] Creatinine [Mass/Vol] 0.70 mg/dL Normal 0.58-0.96 [facility] Comment on above: Order Comment: Speci men Type: BLOOD SPECIMEN Ordering Facility: [facility] Address: [address] [place] [address] Performed By: #### 5 7021-8 #### [facility] CLIA [id number] [address] [place] [address] [place] Creatinine and Glomerular filtration rate.predicted panel (S/P/Bld) 94 mL/min/1.73m??? Normal >=60 [facility] Comment on above: Order Comment: Speci men Type: BLOOD SPECIMEN Ordering Facility: [facility] Address: [address] [place] [address] Result Comment: Estela mated Glomerular Filtration Rate (eGFR) is calculated using the 2020 CKD-EPI creatinine equation. This equation utilizes serum creatinine, sex, and age as parameters. The creatinine assay has traceable calibration to isotope dilution-mass spectrometry. Refer to KDIGO guidelines for clinical interpretation. In patients with unstable renal function, e.g. those with acute kidney injury, the eGFR may not accurately reflect actual GFR. Performed By: #### 5 7021-8 #### [facility] CLIA [id number] [address] [place] [address] [place] Glucose [Mass/Vol] 94 mg/dL Normal 74-99 [facility] Comment on above: Order Comment: Margarita zendejas Type: BLOOD SPECIMEN Ordering Facility: [facility] Address: [address] [place] [address] Result Comment: The [place] Diabetes Association (ADA) provides guidance for cutoff values for fasting glucose and random glucose. The ADA defines fasting as no caloric intake for at least 8 hours. Fasting plasma glucose results between 100 to 125 mg/dL indicate increased risk for diabetes (prediabetes). Fasting plasma glucose results greater than or equal to 126 mg/dL meet the criteria for diagnosis of diabetes. In the absence of unequivocal hyperglycemia, results should be confirmed by repeat testing. In a patient with classic symptoms of hyperglycemia or hyperglycemic crisis, random plasma glucose results greater than or equal to 200 mg/dL meet the criteria for diagnosis of diabetes. Reference: Standards of Medical Care in Diabetes 2016, [place] Diabetes Association. Diabetes Care. 2016.39(Suppl 1). Performed By: #### 5 7021-8 #### [facility] CLIA [id number] [address] [place] [address] [place] Phosphate [Mass/Vol] 3.2 mg/dL Normal 2.7-4.8 [facility] Comment on above: Order Comment: Margarita zendejas Type: BLOOD SPECIMEN Ordering Facility: [facility] Address: [address] [place] [address] Performed By: #### 5 7021-8 #### [facility] CLIA [id number] [address] [place] [address] [place] Potassium [Moles/Vol] 3.9 mmol/L Normal 3.7-5.1 [facility] Comment on above: Order Comment: Speci men Type: BLOOD SPECIMEN Ordering Facility: [facility] Address: [address] [place] [address] Performed By: #### 5 7021-8 #### [facility] CLIA [id number] [address] [place] [address] [place] Sodium [Moles/Vol] 141 mmol/L Normal 136-144 [facility] Comment on above: Order Comment: Speci men Type: BLOOD SPECIMEN Ordering Facility: [facility] Address: [address] [place] [address] Performed By: #### 5 7021-8 #### [facility] CLIA [id number] [address] [place] [address] [place] Urea nitrogen [Mass/Vol] 12 mg/dL Normal 7-21 [facility] Comment on above: Order Comment: Speci men Type: BLOOD SPECIMEN Ordering Facility: [facility] Address: [address] [place] [address] Performed By: #### 5 7021-8 #### [facility] CLIA [id number] [address] [place] [address] [place] CBC W Auto Differential pane l (Bld)on 05-07-2024 Basophils (Bld) [#/Vol] 0.06 10*3/uL Normal <0.11 [facility] Comment on above: Order Comment: Speci men Type: BLOOD SPECIMEN Ordering Facility: [facility] Address: [address] [place] [address] Performed By: #### 5 7021-8 #### [facility] CLIA [id number] [address] [place] [address] [place] Basophils/100 WBC (Bld) 0.5 % Normal [facility] Comment on above: Order Comment: Speci men Type: BLOOD SPECIMEN Ordering Facility: [facility] Address: [address] [place] [address] Performed By: #### 5 7021-8 #### [facility] CLIA [id number] [address] [place] [address] [place] Differential cell count method Nom (Bld) Auto Normal [facility] Comment on above: Order Comment: Speci men Type: BLOOD SPECIMEN Ordering Facility: [facility] Address: [address] [place] [address] Performed By: #### 5 7021-8 #### [facility] CLIA [id number] [address] [place] [address] [place] Eosinophils (Bld) [#/Vol] 4.81 10*3/uL High <0.46 [facility] Comment on above: Order Comment: Speci men Type: BLOOD SPECIMEN Ordering Facility: [facility] Address: [address] [place] [address] Performed By: #### 5 7021-8 #### [facility] CLIA [id number] [address] [place] [address] [place] Eosinophils/100 WBC (Bld) 43.4 % Normal [facility] Comment on above: Order Comment: Speci men Type: BLOOD SPECIMEN Ordering Facility: [facility] Address: [address] [place] [address] Performed By: #### 5 7021-8 #### [facility] CLIA [id number] [address] [place] [address] [place] Erythrocyte distribution width (RBC) [Ratio] 14.4 % Normal 11.5-15.0 [facility] Comment on above: Order Comment: Speci men Type: BLOOD SPECIMEN Ordering Facility: [facility] Address: [address] [place] [address] Performed By: #### 5 7021-8 #### [facility] CLIA [id number] [address] [place] [address] [place] Hematocrit (Bld) [Volume fraction] 37.7 % Normal 36.0-46.0 [facility] Comment on above: Order Comment: Speci men Type: BLOOD SPECIMEN Ordering Facility: [facility] Address: [address] [place] [address] Performed By: #### 5 7021-8 #### [facility] CLIA [id number] [address] [place] [address] [place] Hemoglobin (Bld) [Mass/Vol] 12.4 g/dL Normal 11.5-15.5 [facility] Comment on above: Order Comment: Speci men Type: BLOOD SPECIMEN Ordering Facility: [facility] Address: [address] [place] [address] Performed By: #### 5 7021-8 #### [facility] CLIA [id number] [address] [place] [address] [place] Immature granulocytes (Bld) [#/Vol] 0.04 10*3/uL Normal <0.10 [facility] Comment on above: Order Comment: Speci men Type: BLOOD SPECIMEN Ordering Facility: [facility] Address: [address] [place] [address] Performed By: #### 5 7021-8 #### [facility] CLIA [id number] [address] [place] [address] [place] Immature granulocytes/100 WBC (Bld) 0.4 % Normal [facility] Comment on above: Order Comment: Speci men Type: BLOOD SPECIMEN Ordering Facility: [facility] Address: [address] [place] [address] Performed By: #### 5 7021-8 #### [facility] CLIA [id number] [address] [place] [address] [place] Lymphocytes (Bld) [#/Vol] 1.24 10*3/uL Normal 1.00-4.00 [facility] Comment on above: Order Comment: Speci men Type: BLOOD SPECIMEN Ordering Facility: [facility] Address: [address] [place] [address] Performed By: #### 5 7021-8 #### [facility] CLIA [id number] [address] [place] [address] [place] Lymphocytes/100 WBC (Bld) 11.2 % Normal [facility] Comment on above: Order Comment: Speci men Type: BLOOD SPECIMEN Ordering Facility: [facility] Address: [address] [place] [address] Performed By: #### 5 7021-8 #### [facility] CLIA [id number] [address] [place] [address] [place] MCH (RBC) [Entitic mass] 31.1 pg Normal 26.0-34.0 [facility] Comment on above: Order Comment: Speci men Type: BLOOD SPECIMEN Ordering Facility: [facility] Address: [address] [place] [address] Performed By: #### 5 7021-8 #### [facility] CLIA [id number] [address] [place] [address] [place] MCHC (RBC) [Mass/Vol] 32.9 g/dL Normal 30.5-36.0 [facility] Comment on above: Order Comment: Speci men Type: BLOOD SPECIMEN Ordering Facility: [facility] Address: [address] [place] [address] Performed By: #### 5 7021-8 #### [facility] CLIA [id number] [address] [place] [address] [place] MCV (RBC) [Entitic vol] 94.5 fL Normal 80.0-100.0 [facility] Comment on above: Order Comment: Speci men Type: BLOOD SPECIMEN Ordering Facility: [facility] Address: [address] [place] [address] Performed By: #### 5 7021-8 #### [facility] CLIA [id number] [address] [place] [address] [place] Monocytes (Bld) [#/Vol] 0.89 10*3/uL High <0.87 [facility] Comment on above: Order Comment: Speci men Type: BLOOD SPECIMEN Ordering Facility: [facility] Address: [address] [place] [address] Performed By: #### 5 7021-8 #### [facility] CLIA [id number] [address] [place] [address] [place] Monocytes/100 WBC (Bld) 8.0 % Normal [facility] Comment on above: Order Comment: Speci men Type: BLOOD SPECIMEN Ordering Facility: [facility] Address: [address] [place] [address] Performed By: #### 5 7021-8 #### [facility] CLIA [id number] [address] [place] [address] [place] Neutrophils (Bld) [#/Vol] 4.05 10*3/uL Normal 1.45-7.50 [facility] Comment on above: Order Comment: Speci men Type: BLOOD SPECIMEN Ordering Facility: [facility] Address: [address] [place] [address] Performed By: #### 5 7021-8 #### [facility] CLIA [id number] [address] [place] [address] [place] Neutrophils/100 WBC (Bld) 36.5 % Normal [facility] Comment on above: Order Comment: Speci men Type: BLOOD SPECIMEN Ordering Facility: [facility] Address: [address] [place] [address] Performed By: #### 5 7021-8 #### [facility] CLIA [id number] [address] [place] [address] [place] Nucleated RBC (Bld) [#/Vol] 10*3/uL Normal <0.01 [facility] Comment on above: Order Comment: Speci men Type: BLOOD SPECIMEN Ordering Facility: [facility] Address: [address] [place] [address] Performed By: #### 5 7021-8 #### [facility] CLIA [id number] [address] [place] [address] [place] Nucleated RBC/100 WBC (Bld) [Ratio] 0.0 /100 WBC Normal [facility] Comment on above: Order Comment: Speci men Type: BLOOD SPECIMEN Ordering Facility: [facility] Address: [address] [place] [address] Performed By: #### 5 7021-8 #### [facility] CLIA [id number] [address] [place] [address] [place] Platelet mean volume (Bld) [Entitic vol] 9.3 fL Normal 9.0-12.7 [facility] Comment on above: Order Comment: Speci men Type: BLOOD SPECIMEN Ordering Facility: [facility] Address: [address] [place] [address] Performed By: #### 5 7021-8 #### [facility] CLIA [id number] [address] [place] [address] [place] Platelets (Bld) [#/Vol] 410 10*3/uL High 150-400 [facility] Comment on above: Order Comment: Speci men Type: BLOOD SPECIMEN Ordering Facility: [facility] Address: [address] [place] [address] Performed By: #### 5 7021-8 #### [facility] CLIA [id number] [address] [place] [address] [place] RBC (Bld) [#/Vol] 3.99 10*6/uL Normal 3.90-5.20 [facility] Comment on above: Order Comment: Speci men Type: BLOOD SPECIMEN Ordering Facility: [facility] Address: [address] [place] [address] Performed By: #### 5 7021-8 #### [facility] CLIA [id number] [address] [place] [address] [place] WBC (Bld) [#/Vol] 11.09 10*3/uL High 3.70-11.00 [facility] Comment on above: Order Comment: Speci men Type: BLOOD SPECIMEN Ordering Facility: [facility] Address: [address] [place] [address] Performed By: #### 5 7021-8 #### [facility] IA [id number] [address] [place] [address] [place] ECG COMPLETEon 05-07-2024 ECG COMPLETE Ventricular Rate : 8 1 BPM Atrial Rate : 81 BPM P-R Interval : 110 ms QRS Duration : 84 ms Q-T Interval : 384 ms QTC Calculation(Bazett) : 446 ms Calculated P [place] : 78 degrees Calculated R [place] : 51 degrees Calculated T [place] : 33 degrees SINUS RHYTHM WITH SHORT [place] OTHERWISE NORMAL ECG Confirmed by LUIS ENRIQUE JIMENEZ MD ([id number]) on 05/30/2024 11:43:07 PM NAME : MIRIAN CORRALES PID : [id number] : 1955 Gender : Female Race : ORD : [id number] Procedure Date : May 07 2024 07:04:50 Edit Date : May 30 2024 23:43:09 Diagnosis: SINUS RHYTHM WITH SHORT [place] OTHERWISE NORMAL ECG Confirmed by LUIS ENRIQUE JIMENEZ MD ([id number]) on 05/30/2024 11:43:07 PM Test Reason : Check QT Location : 180 : G80 G080-35 Overread By : LUIS ENRIQUE JIMENEZ MD Edited By : LUIS ENRIQUE JIMENEZ MD Referred By : , Acquired by : SUZANNE BELLO [facility] IgG SerPl-mCncjennifer 05-07-2024 IgG [Mass/Vol] 1128 mg/dL Normal 700-1600 [facility] Comment on above: Order Comment: Speci men Type: BLOOD SPECIMEN Ordering Facility: [facility] Address: [address] [place] [address] Performed By: #### 5 7021-8 #### [facility] CLIA [id number] [address] [place] [address] [place] Renal function 2000 panelon 05-07-2024 Albumin [Mass/Vol] 3.1 g/dL Low 3.9-4.9 [facility] Comment on above: Order Comment: Speci men Type: BLOOD SPECIMEN Ordering Facility: [facility] Address: [address] [place] [address] Performed By: #### 5 7021-8 #### [facility] CLIA [id number] [address] [place] [address] [place] Anion gap [Moles/Vol] 10 mmol/L Normal 8-15 [facility] Comment on above: Order Comment: Speci men Type: BLOOD SPECIMEN Ordering Facility: [facility] Address: [address] [place] [address] Performed By: #### 5 7021-8 #### [facility] CLIA [id number] [address] [place] [address] [place] Calcium [Mass/Vol] 8.5 mg/dL Normal 8.5-10.2 [facility] Comment on above: Order Comment: Speci men Type: BLOOD SPECIMEN Ordering Facility: [facility] Address: [address] [place] [address] Performed By: #### 5 7021-8 #### [facility] CLIA [id number] [address] [place] [address] [place] Chloride [Moles/Vol] 106 mmol/L Normal 98-107 [facility] Comment on above: Order Comment: Speci men Type: BLOOD SPECIMEN Ordering Facility: [facility] Address: [address] [place] [address] Performed By: #### 5 7021-8 #### [facility] CLIA [id number] [address] [place], [place] [id number] [place] CO2 [Moles/Vol] 22 mmol/L Normal 22-30 [facility] Comment on above: Order Comment: Margarita men Type: BLOOD SPECIMEN Ordering Facility: [facility] Address: [address] [place] [address] Performed By: #### 5 7021-8 #### [facility] CLIA [id number] [address] [place] [address] [place] Creatinine [Mass/Vol] 0.67 mg/dL Normal 0.58-0.96 [facility] Comment on above: Order Comment: Speci men Type: BLOOD SPECIMEN Ordering Facility: [facility] Address: [address] [place] [address] Performed By: #### 5 7021-8 #### [facility] CLIA [id number] [address] [place] [address] [place] Creatinine and Glomerular filtration rate.predicted panel (S/P/Bld) 95 mL/min/1.73m??? Normal >=60 [facility] Comment on above: Order Comment: Margarita men Type: BLOOD SPECIMEN Ordering Facility: [facility] Address: [address] [place] [address] Result Comment: Estela mated Glomerular Filtration Rate (eGFR) is calculated using the 2020 CKD-EPI creatinine equation. This equation utilizes serum creatinine, sex, and age as parameters. The creatinine assay has traceable calibration to isotope dilution-mass spectrometry. Refer to KDIGO guidelines for clinical interpretation. In patients with unstable renal function, e.g. those with acute kidney injury, the eGFR may not accurately reflect actual GFR. Performed By: #### 5 7021-8 #### [facility] CLIA [id number] [address] [place] [address] [place] Glucose [Mass/Vol] 88 mg/dL Normal 74-99 [facility] Comment on above: Order Comment: Robertoi men Type: BLOOD SPECIMEN Ordering Facility: [facility] Address: [address] [place] [address] Result Comment: The [place] Diabetes Association (ADA) provides guidance for cutoff values for fasting glucose and random glucose. The ADA defines fasting as no caloric intake for at least 8 hours. Fasting plasma glucose results between 100 to 125 mg/dL indicate increased risk for diabetes (prediabetes). Fasting plasma glucose results greater than or equal to 126 mg/dL meet the criteria for diagnosis of diabetes. In the absence of unequivocal hyperglycemia, results should be confirmed by repeat testing. In a patient with classic symptoms of hyperglycemia or hyperglycemic crisis, random plasma glucose results greater than or equal to 200 mg/dL meet the criteria for diagnosis of diabetes. Reference: Standards of Medical Care in Diabetes 2016, [place] Diabetes Association. Diabetes Care. 2016.39(Suppl 1). Performed By: #### 5 7021-8 #### [facility] CLIA [id number] [address] [place] [address] [place] Phosphate [Mass/Vol] 2.8 mg/dL Normal 2.7-4.8 [facility] Comment on above: Order Comment: Speci men Type: BLOOD SPECIMEN Ordering Facility: [facility] Address: [address] [place] [address] Performed By: #### 5 7021-8 #### [facility] CLIA [id number] [address] [place] [address] [place] Potassium [Moles/Vol] 4.3 mmol/L Normal 3.7-5.1 [facility] Comment on above: Order Comment: Speci men Type: BLOOD SPECIMEN Ordering Facility: [facility] Address: [address] [place] [address] Performed By: #### 5 7021-8 #### [facility] CLIA [id number] [address] [place] [address] [place] Sodium [Moles/Vol] 138 mmol/L Normal 136-144 [facility] Comment on above: Order Comment: Speci men Type: BLOOD SPECIMEN Ordering Facility: [facility] Address: [address] [place] [address] Performed By: #### 5 7021-8 #### [facility] CLIA [id number] [address] [place] [address] [place] Urea nitrogen [Mass/Vol] 10 mg/dL Normal 7-21 [facility] Comment on above: Order Comment: Speci men Type: BLOOD SPECIMEN Ordering Facility: [facility] Address: [address] [place] [address] Performed By: #### 5 7021-8 #### [facility] CLIA [id number] [address] [place] [address] [place] [address] [place] ALBUMIN/CREATININE RATIO, UR INEon 05-06-2024 Albumin DL <= 20 mg/L (U) [Mass/Vol] mg/dL Normal [facility] Comment on above: Order Comment: Speci men Type: BLOOD SPECIMEN Ordering Facility: [facility] Address: [address] [place] [address] Performed By: #### 2 4323-8 #### [facility] CLIA [id number] [address] [place] [address] Albumin/Creatinine (U) [Mass ratio] <30 Normal <30 [facility] Comment on above: Order Comment: Robertoi men Type: BLOOD SPECIMEN Ordering Facility: [facility] Address: [address] [place] [address] Result Comment: Adul t Male and Female Nephrotic Criteria: <30 mg/g is considered normal to mildly increased 30-300 mg/g is considered moderately increased >300 mg/g is considered severely increased KDIGO. (2013). KDIGO 2012 Clinical Practice Guideline for the Evaluation and Management of Chronic Kidney Disease. Official Journal of the International Society of Nephrology, 3(1), 1-150. Performed By: #### 2 4323-8 #### [facility] CLIA [id number] [address] [place] [address] Creatinine (U) [Mass/Vol] 40.5 mg/dL Normal 20.0-300.0 [facility] Comment on above: Order Comment: Robertoi men Type: BLOOD SPECIMEN Ordering Facility: [facility] Address: [address] [place] [address] Performed By: #### 2 4323-8 #### [facility] CLIA [id number] [address] [place] [address] MIKKI BY IFA WITH REFLEXon Nuclear Ab pattern (S) [Interp] Cytoplasmic dense fine speckled Normal [facility] Comment on above: Order Comment: Speci men Type: BLOOD SPECIMENOrdering Facility: [facility] Address: [address] [place] [address] Performed By: #### A NAIFR, 03217-1, 02955-0, 06533-9, 79595-6, 31430-0, 79325-6, 71036-6, 07372-7, 5218-3, 90807-6, STRSER, ANCA ####[facility] [id number] [place] [address] [place] Nuclear Ab Ql (S) Positive Abnormal Negative [facility] Comment on above: Order Comment: Speci men Type: BLOOD SPECIMENOrdering Facility: [facility] Address: [address] [place] [address] Result Comment: Anti -nuclear antibody test is used as an aid in diagnosis of systemic autoimmune diseases. Where positive and clinically warranted, follow-up using disease-specific testing is recommended. Low positive titers are not uncommon with advanced age, certain chronic infections, and malignancies among others. Test methodology: Indirect fluorescence immunoassay (IFA) using HEp-2 cells. 1:1280 Performed By: #### A NAIFR, 85067-5, 58732-7, 20149-4, 70245-8, 90803-2, 42303-9, 83783-9, 24655-5, 5218-3, 20739-9, STRSER, ANCA ####[facility] [id number] [place] [id number] [place] ANTI NEUTRO CYTO ABon 2023 INTERPRETATION (ANCA) Normal [facility] Comment on above: Order Comment: Speci men Type: BLOOD SPECIMENOrdering Facility: [facility] Address: [address] [place] [address] Result Comment: Nega tive for C-ANCA and P-ANCA by indirect immunofluorescence. A negative result cannot reliably rule out ANCA-associated vaculitides especially when in remission. Clinical correlation is required. Performed By: #### A NAIFR, 93251-4, 87117-6, 00285-1, 45862-5, 56763-7, 15610-3, 25835-2, 41789-6, 5218-3, 81787-4, STRSER, ANCA ####[facility] [id number] [place] [address] [place] Neutrophil cytoplasmic Ab.classic IF Ql (S) Negative Normal Negative [facility] Comment on above: Order Comment: Speci men Type: BLOOD SPECIMENOrdering Facility: [facility] Address: [address] [place] [address] Performed By: #### A NAIFR, 05999-0, 86058-3, 10127-2, 11047-8, 01069-0, 83794-6, 65423-9, 11499-7, 5218-3, 91045-6, STRSER, ANCA ####[facility] [id number] [place] [address] [place] Neutrophil cytoplasmic Ab.perinuclear IF Ql (S) Negative Normal Negative [facility] Comment on above: Order Comment: Speci men Type: BLOOD SPECIMENOrdering Facility: [facility] Address: [address] [place] [address] Performed By: #### A NAIFR, 84509-0, 00096-8, 13860-6, 83871-3, 48697-9, 62581-3, 16558-2, 28632-9, 5218-3, 90923-1, STRSER, ANCA ####[facility] [id number] [place] [id number] [place] STAFF REVIEW (ANCA) No review performed. Normal [facility] Comment on above: Order Comment: Speci men Type: BLOOD SPECIMENOrdering Facility: [facility] Address: [address] [place] [address] Performed By: #### A NAIFR, 26984-4, 47084-2, 66582-0, 37552-5, 76977-9, 71324-6, 87916-3, 06242-8, 5218-3, 47480-8, SINA WESTON ####[facility] [id number] [place] [address] [place] BLOOD TB SCREENon 05-06-2024 M. tuberculosis tuberculin stim IFN-g Ql (Bld) Negative Normal [facility] Comment on above: Order Comment: Speci men Type: BLOOD SPECIMEN [facility] Address: [address] [place] [address] Performed By: #### 2 4323-8 #### [facility] CLIA [id number] [address] [place], [place] [address] MITOGEN MINUS NIL 0.85 IU/mL Normal >=0.50 [facility] Comment on above: Order Comment: Margarita zendejas Type: BLOOD SPECIMEN Ordering Facility[facility] Address: [address] [place] [address] Performed By: #### 2 4323-8 #### [facility] CLIA [id number] [address] [place] [address] TB GAMMA INTERPRETATION Infection with M . tuberculosis complex is unlikely. If latent tuberculosis infection is highly suspected, a negative result does not rule out the infection. Specimens from immunocompromised patients and those <5 years of age may show false negative results. In case of a contact investigation, please repeat 8-12 weeks after a known exposure. Normal [facility] Comment on above: Order Comment: Margarita zendejas Type: BLOOD SPECIMEN Ordering Facility: [facility] Address: [address] [place] [address] Performed By: #### 2 4323-8 #### [facility] CLIA [id number] [address] [place] [address]3228 TB NIL 0.05 IU/mL Normal <=8.00 [facility] Comment on above: Order Comment: Speci men Type: BLOOD SPECIMEN Ordering Facility: [facility] Address: [address] [place] [address] Performed By: #### 2 4323-8 #### [facility] CLIA [id number] [address] [place] [address] TB1 AG MINUS NIL 0.00 IU/mL Normal <0.35 [facility] Comment on above: Order Comment: Speci men Type: BLOOD SPECIMEN Ordering Facility[facility] Address: [address] [place] [address] Performed By: #### 2 4323-8 #### [facility] CLIA [id number] [address] [place] [address] TB2 AG MINUS NIL 0.00 IU/mL Normal <0.35 [facility] Comment on above: Order Comment: Speci men Type: BLOOD SPECIMEN Ordering [facility] Address: [address] [place] [address] Performed By: #### 2 4323-8 #### [facility] CLIA [id number] [address] [place] [address] CBC W Auto Differential pane l (Bld)on 05-06-2024 Basophils (Bld) [#/Vol] 0.06 10*3/uL Normal <0.11 [facility] Comment on above: Order Comment: Speci men Type: BLOOD SPECIMEN Ordering Facility: [facility] Address: [address] [place] [address] Performed By: #### 5 7021-8 #### [facility] CLIA [id number] [address] [place], [place] [address] [id number] [place] [address] [place] Basophils/100 WBC (Bld) 0.5 % Normal [facility] Comment on above: Order Comment: Speci men Type: BLOOD SPECIMEN Ordering Facility: [facility] Address: [address] [place] [address] Performed By: #### 5 7021-8 #### [facility] CLIA [id number] [address] [place] [address] [place] Differential cell count method Nom (Bld) Auto Normal [facility] Comment on above: Order Comment: Speci men Type: BLOOD SPECIMEN Ordering Facility[facility] Address: [address] [place] [address] Performed By: #### 5 7021-8 #### [facility] CLIA [id number] [address] [place] [address] [place] Eosinophils (Bld) [#/Vol] 4.56 10*3/uL High <0.46 [facility] Comment on above: Order Comment: Speci men Type: BLOOD SPECIMEN Order[facility] Address: [address] [place] [address] Performed By: #### 5 7021-8 #### [facility] CLIA [id number] [address] [place] [address] [place] Eosinophils/100 WBC (Bld) 40.3 % Normal [facility] Comment on above: Order Comment: Speci men Type: BLOOD SPECIMEN Order[facility] Address: [address] [place] [address] Performed By: #### 5 7021-8 #### [facility] CLIA [id number] [address] [place] [address] [place] Erythrocyte distribution width (RBC) [Ratio] 14.6 % Normal 11.5-15.0 [facility] Comment on above: Order Comment: Speci men Type: BLOOD SPECIMEN Order[facility] Facility[facility] Address: [address] [place] [address] Performed By: #### 5 7021-8 #### [facility] CLIA [id number] [address] [place] [address] [place] Hematocrit (Bld) [Volume fraction] 40.6 % Normal 36.0-46.0 [facility] Comment on above: Order Comment: Speci men Type: BLOOD SPECIMEN Ordering Facility[facility] Address: [address] [place] [address] Performed By: #### 5 7021-8 #### [facility] CLIA [id number] [address] [place] [address] [place] Hemoglobin (Bld) [Mass/Vol] 12.9 g/dL Normal 11.5-15.5 [facility] Comment on above: Order Comment: Speci men Type: BLOOD SPECIMEN Order[facility] Address: [address] [place] [address] Performed By: #### 5 7021-8 #### [facility] CLIA [id number] [address] [place] [address] [place] Immature granulocytes (Bld) [#/Vol] 0.04 10*3/uL Normal <0.10 [facility] Comment on above: Order Comment: Speci men Type: BLOOD SPECIMEN Order[facility] Address: [address] [place] [address] Performed By: #### 5 7021-8 #### [facility] CLIA [id number] [address] [place] [address] [place] Immature granulocytes/100 WBC (Bld) 0.4 % Normal [facility] Comment on above: Order Comment: Speci men Type: BLOOD SPECIMEN Order[facility] Address: [address] [place] [address] Performed By: #### 5 7021-8 #### [facility] CLIA [id number] [address] [place] [address] [place] Lymphocytes (Bld) [#/Vol] 1.58 10*3/uL Normal 1.00-4.00 [facility] Comment on above: Order Comment: Speci men Type: BLOOD SPECIMEN Order[facility] Facility[facility] Address: [address] [place] [address] Performed By: #### 5 7021-8 #### [facility] CLIA [id number] [address] [place] [address] [place] Lymphocytes/100 WBC (Bld) 14.0 % Normal [facility] Comment on above: Order Comment: Speci men Type: BLOOD SPECIMEN Order[facility] Address: [address] [place] [address] Performed By: #### 5 7021-8 #### [facility] CLIA [id number] [address] [place] [address] [place] MCH (RBC) [Entitic mass] 29.9 pg Normal 26.0-34.0 [facility] Comment on above: Order Comment: Speci men Type: BLOOD SPECIMEN Order[facility] Facility[facility] Address: [address] [place] [address] Performed By: #### 5 7021-8 #### [facility] CLIA [id number] [address] [place] [address] [place] MCHC (RBC) [Mass/Vol] 31.8 g/dL Normal 30.5-36.0 [facility] Comment on above: Order Comment: Speci men Type: BLOOD SPECIMEN Order[facility] Address: [address] [place] [address] Performed By: #### 5 7021-8 #### [facility] CLIA [id number] [address] [place] [address] [place] MCV (RBC) [Entitic vol] 94.0 fL Normal 80.0-100.0 C [facility] Comment on above: Order Comment: Speci men Type: BLOOD SPECIMEN Order[facility] Facility[facility] Address: [address] [place] [address] Performed By: #### 5 7021-8 #### [facility] CLIA [id number] [address] [place] [address] [place] Monocytes (Bld) [#/Vol] 0.91 10*3/uL High <0.87 [facility] Comment on above: Order Comment: Speci men Type: BLOOD SPECIMEN Ordering Facility[facility] Address: [address] [place] [address] Performed By: #### 5 7021-8 #### [facility] CLIA [id number] [address] [place] [address] [place] Monocytes/100 WBC (Bld) 8.0 % Normal [facility] Comment on above: Order Comment: Speci men Type: BLOOD SPECIMEN Ordering Facility[facility] Address: [address] [place] [address] Performed By: #### 5 7021-8 #### [facility] CLIA [id number] [address] [place] [address] [place] Neutrophils (Bld) [#/Vol] 4.17 10*3/uL Normal 1.45-7.50 [facility] Comment on above: Order Comment: Speci men Type: BLOOD SPECIMEN Ordering Facility[facility] Address: [address] [place] [address] Performed By: #### 5 7021-8 #### [facility] CLIA [id number] [address] [place] [address] [place] Neutrophils/100 WBC (Bld) 36.8 % Normal [facility] Comment on above: Order Comment: Speci men Type: BLOOD SPECIMEN Order[facility] Facility[facility] Address: [address] [place] [address] Performed By: #### 5 7021-8 #### [facility] CLIA [id number] [address] [place] [address] [place] Nucleated RBC (Bld) [#/Vol] 10*3/uL Normal <0.01 [facility] Comment on above: Order Comment: Speci men Type: BLOOD SPECIMEN Ordering Facility[facility] Address: [address] [place] [address] Performed By: #### 5 7021-8 #### [facility] CLIA [id number] [address] [place], [place] [address] [place] Nucleated RBC/100 WBC (Bld) [Ratio] 0.0 /100 WBC Normal [facility] Comment on above: Order Comment: Speci men Type: BLOOD SPECIMEN Order[facility] Facility[facility] Address: [address] [place] [address] Performed By: #### 5 7021-8 #### [facility] CLIA [id number] [address] [place] [address] [place] Platelet mean volume (Bld) [Entitic vol] 9.4 fL Normal 9.0-12.7 [facility] Comment on above: Order Comment: Speci men Type: BLOOD SPECIMEN Order[facility] Facility[facility] Address: [address] [place] [address] Performed By: #### 5 7021-8 #### [facility] CLIA [id number] [address] [place] [address] [place] Platelets (Bld) [#/Vol] 440 10*3/uL High 150-400 [facility] Comment on above: Order Comment: Speci men Type: BLOOD SPECIMEN Order[facility] Address: [address] [place] [address] Performed By: #### 5 7021-8 #### [facility] CLIA [id number] [address] [place] [address] [place] RBC (Bld) [#/Vol] 4.32 10*6/uL Normal 3.90-5.20 [facility] Comment on above: Order Comment: Speci men Type: BLOOD SPECIMEN Order[facility] Address: [address] [place] [address] Performed By: #### 5 7021-8 #### [facility] CLIA [id number] [address] [place] [address] [place] WBC (Bld) [#/Vol] 11.32 10*3/uL High 3.70-11.00 [facility] Comment on above: Order Comment: Margarita zendejas Type: BLOOD SPECIMEN Order[facility] Address: [address] [place] [address] Performed By: #### 5 7021-8 #### [facility] CLIA [id number] [address] [place] [id number] [place] [address] OF [facility] CONSULTon 05-06-2024 CONSULT HNO ID: [id number] Author: TOÑITO HO DO Service: Infectious Disease Author Type: Fellow Type: Consults Filed: 05/06/2024 16:59 Note Text: Attestation signed by Toñito Ho DO at 05/06/2024 4:59 PM ID STAFF NOTE: Patient seen: 05/06/2024 I have reviewed the medical records and interviewed and examined the patient. I have confirmed and edited as necessary, the PFSH and ROS obtained by the resident/fellow. EXAMINATION, ASSESSMENT AND PLAN: As outlined in Dr. Delgado's note above. I personally participated in the gaming components. Signed: Toñito Ho DO, PhD Staff Physician Infectious Disease pager INFECTIOUS DISEASE INITIAL CONSULT SERVICE DATE: 05/06/2024 SERVICE TIME: 2:29 PM Subjective Patient is seen at the request of Homero Ogden MD. My final recommendations will be communicated back to the requesting physician by way of copy of this note or shared electronic medical record. Date of admission: 05/05/24 Reason for admission: rash and eosinophilia Reason for ID consult: Skin rash and eosinophilia HPI: Ms. Corrales is a 68 year old female with a past history of with a past medical history of: osteoporosis and varicose veins presented to the ED from derm clinic for rash. On 01/02/2024: after traveling to [facility] in [place], patient developed itchy rash on back which spread down the center to the buttocks and the flanks. She was given Augmentin for 5 days for an unrelated uvula infection and rash cleared. Denies any sick contacts or new medications or products. Then in mid February 2024: 3 days into trip to [facility] she developed a similar itchy rash on the back, but this time it spread to include all of torso and extremities and face (back>legs>front of torso>upper limbs>face and scalp). She says that she did go into the water, however the rash preceded that. When she got back to [place] on 03/16/24 she went to ED. She was given IM and PO steroids. She thinks the IM may have helped, but that the prednisone made her swollen and caused abdominal pain. She states that after prednisone she experienced swelling of the face especially the eyelids, the buttocks, flanks. After stopping the prednisone, she states that the swelling resolved. Subsequently saw PCP, who treated empirically for scabies with permethrin and ivermectin twice. Rash continued to spread and became more red. She has been to the ER multiple times ([place] [facility] 3 times. On 04/28/2024, she went to [place] [facility]) for her rashes in these 2 months. She was on methylprednisolone which she said helped with her rashes and her lesions improved, however, over the last 2 days, her lesions got worse. Biopsy 04/21/24 --> negative DIF- negative for a specific dermatosis. Unsure of TATY biopsy. she saw out patient dermatology on 05/05/24 :that recommended . given the complexity of the history and the severity of the clinical presentation, patient advised to go to [facility] ED for evaluation by our derm consult team. So she came to [facility] ED , dermatology were consulted and they did a biopsy/DIF today, will Today, she is comfortable at rest. She has reddish elevated lesions over her whole body, and complains of pruritius. She also has lesions in her oral cavity. She also complains of some scaling of her lesions over her neck, and seeping of clear fluid from the lesions over her back. Patient says lesions appear along lines of pruritus. She mentions that the rashes change in colour from bright red to dark red. She has not had fevers, chills or any other symptoms recently. She also complains of some swollen lymph nodes over her groin, which she noticed when she had swelling all over her body after taking prednisone. PAST HISTORY: History reviewed. No pertinent past medical history. No past surgical history on file. FAMILY HISTORY: FAMILY HISTORY Problem Relation Age of Onset Thyroid Mother Skin Cancer Father 88 Skin Cancer Brother 45 Ovarian cancer Paternal Grandmother 77 Skin Cancer Niece 25 Breast Cancer Maternal Aunt 42 Breast Cancer Paternal Aunt 75 Osteoporosis Paternal Aunt Heart Attack Maternal Uncle 80 SOCIAL HISTORY: Social History Tobacco Use Smoking status: Never Smokeless tobacco: Never Vaping Use Vaping status: Never Used Substance Use Topics Alcohol use: Yes Drug use: Never No family history of Tuberculosis No personal exposure to Tuberculosis, jail or homeless intermediate Denies ETOH, marijuana, IVDU use, and tobacco use Currently lives with partner and daughter 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 Has 2 dogs , 3 cats , a frog and a turtle Family history : Two bothers from (more content not included)... Normal [facility] Centromere Ab IF Ql (S)on Centromere Ab Qn (S) <0.2 Normal <1.0 [facility] Comment on above: Order Comment: Speci men Type: BLOOD SPECIMENOrdering Facility: [facility] Address: [address] [place] [address] Result Comment: Anti -centromere antibody is used as in aid in diagnosis of systemic sclerosis. Clinical correlation is required. Test Methodology: Multiplex flow immunoassay. Performed By: #### A NAIFR, 40760-6, 65607-7, 18182-3, 36523-2, 01611-4, 90473-1, 18022-4, 84820-0, 5218-3, 69266-0, STRSER, ANCA ####[facility] [id number] [place] [address] [place] CENTROMERE AB QUAL Negative Normal Negative [facility] Comment on above: Order Comment: Speci men Type: BLOOD SPECIMENOrdering Facility: [facility] Address: [address] [place] [address] Performed By: #### A NAIFR, 12036-8, 44125-1, 96671-3, 15833-4, 38095-9, 48705-1, 85073-9, 98441-1, 5218-3, 61916-9, STRSER, ANCA ####[facility] [id number] [place] [address] [place] Chromatin Ab Qnon 05-06-2024 CHROMATIN AB QUAL Negative Normal Negative [facility] Comment on above: Order Comment: Speci men Type: BLOOD SPECIMENOrdering Facility: [facility] Address: [address] [place] [address] Performed By: #### A NAIFR, 50428-9, 18001-5, 58701-2, 99766-3, 53549-8, 13803-2, 50566-9, 04294-7, 5218-3, 94134-9, STRSER, ANCA ####[facility] [id number] [place] [address] [place] Chromatin Ab SerPl-aCncon Chromatin Ab Qn 0.9 AI Normal <1.0 [facility] Comment on above: Order Comment: Speci men Type: BLOOD SPECIMENOrdering Facility: [facility] Address: [address] [place] [address] Result Comment: Test Methodology: Multiplex flow immunoassay. Performed By: #### A NAIFR, 12797-3, 58638-2, 02764-3, 25655-6, 88207-3, 85495-8, 98020-0, 42639-6, 5218-3, 10137-9, STRSER, ANCA ####[facility] [id number] [place] [address] [place] DNA double strand Ab IA Qn ( S)on 05-06-2024 DNA ANTIBODY 11 IU/mL Normal <=200 [facility] Comment on above: Order Comment: Speci men Type: BLOOD SPECIMEN [facility] Address: [address] [place] [address] Result Comment: Nega tive: <200 IU/mL Equivocal: 201-300 IU/mL Moderate Positive: 301-800 IU/mL Strong Positive: >801 IU/mL Performed By: #### 5 7021-8 #### [facility] CLIA [id number] [address] [place] [address] [place] DNA ANTIBODY QUALITATIVE INTERPRETATION Negative Normal Negative [facility] Comment on above: Order Comment: Speci men Type: BLOOD SPECIMEN [facility] Address: [address] [place] [address] Performed By: #### 5 7021-8 #### [facility] CLIA [id number] [address] [place] [address] [place] RAOUL Jo1 Ab Ser-aCncon 2023 Ingrid-1 extractable nuclear Ab Qn (S) <0.2 Normal <1.0 [facility] Comment on above: Order Comment: Speci men Type: BLOOD SPECIMEN [facility] Address: [address] [place] [address] Performed By: #### 5 7021-8 #### [facility] CLIA [id number] [address] [place] [address] [place] RAOUL PARQUET [employer] HELPER Ab Ser-aCncon 2023 Ribonucleoprotein extractable nuclear Ab Qn (S) 2.3 AI High <1.0 [facility] Comment on above: Order Comment: Speci men Type: BLOOD SPECIMENOrdering Facility: [facility] Address: [address] [place] [address] Performed By: #### A NAIFR, 77377-1, 30977-9, 52530-9, 99883-2, 68999-3, 63274-9, 51230-0, 98086-7, 5218-3, 30173-9, STRSER, ANCA ####[facility] [id number] [place] [address] [place] Ribonucleoprotein extractable nuclear Ab Qn (S) 0.5 AI Normal <1.0 [facility] Comment on above: Order Comment: Speci men Type: BLOOD SPECIMEN [facility] Address: [address] [place] [address] Performed By: #### 5 7021-8 #### [facility] CLIA [id number] [address] [place] [address] [place] RAOUL SM IgG Ser-aCncon 2023 Butcher extractable nuclear IgG Qn (S) 0.3 AI Normal <1.0 [facility] Comment on above: Order Comment: Speci men Type: BLOOD SPECIMENOrdering Facility: [facility] Address: [address] [place] [address] Performed By: #### A NAFLYR, 61420-9, 37903-9, 82579-4, 73411-3, 35322-1, 17157-4, 79955-6, 18480-9, 5218-3, 02218-1, STRSER, ANCA ####[facility] [id number] [place] [address] [place] RAOUL SS-A Ab Ser-aCncon 05-06 Sjogrens syndrome-A extractable nuclear Ab Qn (S) 0.3 AI Normal <1.0 [facility] Comment on above: Order Comment: Speci men Type: BLOOD SPECIMEN [facility] Address: [address] [place] [address] Result Comment: Test Methodology: Multiplex flow immunoassay. Performed By: #### 5 7021-8 #### [facility] CLIA [id number] [address] [place] [address] [place] RAOU[place] SS-B Ab Ser-aCncon 05-06 Sjogrens syndrome-B extractable nuclear Ab Qn (S) <0.2 Normal <1.0 [facility] Comment on above: Order Comment: Speci men Type: BLOOD SPECIMENOrdering Facility: [facility] Address: [address] [place] [address] Result Comment: Anti -SSB (anti-La) antibody is used as an aid in diagnosis of a variety of systemic autoimmune diseases, especially for Sjogren's syndrome and systemic lupus erythematosus. Clinical correlation is required. Test Methodology: Multiplex flow immunoassay. Performed By: #### A NAIFR, 28892-5, 40089-9, 79288-6, 14291-8, 37193-3, 78046-6, 32770-1, 07354-8, 5218-3, 79526-6, STRSER, ANCA ####[facility] [id number] [place] [address] [place] H capsul Ab Ser Ql IDon 04-20 H. capsulatum Ab Immune diff Ql (S) Negative Normal Negative [facility] Comment on above: Order Comment: Speci men Type: BLOOD SPECIMEN [facility] Address: [address] [place] [address] Result Comment: Hist oplasma antibody test by Immunodiffusion may be used as an aid in diagnosis of infection with the dimorphic fungus Histoplasma capsulatum. Histoplasma antibody test has low overall diagnostic sensitivity especially with localized disease. Immunodiffusion test is more specific but less sensitive than complement fixation test. Clinical and epidemiological correlation is required. Performed By: #### 5 7021-8 #### [facility] CLIA [id number] [address] [place] [address] [place] IgA SerPl-mCncon 05-06-2024 IgA [Mass/Vol] 121 mg/dL Normal 70-400 [facility] Comment on above: Order Comment: Speci men Type: BLOOD SPECIMEN [facility] Address: [address] [place] [address] Performed By: #### 2 4323-8 #### [facility] CLIA [id number] [address] [place] [address] IgM SerPl-mCncon 05-06-2024 IgM [Mass/Vol] 33 mg/dL Low 40-230 [facility] Comment on above: Order Comment: Speci men Type: BLOOD SPECIMEN [facility] Address: [address] [place] [address] Performed By: #### 2 4323-8 #### [facility] CLIA [id number] [address] [place] [address] 15555 Ingrid-1 extractable nuclear Ab Qn (S)on 05-06-2024 INGRID 1 ANTIBODY QUAL Negative Normal Negative [facility] Comment on above: Order Comment: Speci cristiana Type: BLOOD SPECIMEN [facility] Address: [address] [place] [address] Result Comment: Anti -INGRID-1 antibody is used as an aid in diagnosis of polymyositis and dermatomyositis especially with pulmonary involvement. A negative result cannot rule out polymyositis or dermatomyositis. Clinical correlation is required. Test Methodology: Multiplex flow immunoassay. Performed By: #### 5 7021-8 #### [facility] CLIA [id number] [address] [place] [address] [place] Renal function 2000 panelon 05-06-2024 Albumin [Mass/Vol] 3.0 g/dL Low 3.9-4.9 [facility] Comment on above: Order Comment: Robertoi men Type: BLOOD SPECIMEN [facility] Address: [address] [place] [address] Performed By: #### 2 4323-8 #### [facility] CLIA [id number] [address] [place] [address] Anion gap [Moles/Vol] 11 mmol/L Normal 8-15 [facility] Comment on above: Order Comment: Speci men Type: BLOOD SPECIMEN [facility] Address: [address] [place] [address] Performed By: #### 2 4323-8 #### [facility] CLIA [id number] [address] [place] [address] Calcium [Mass/Vol] 8.4 mg/dL Low 8.5-10.2 [facility] Comment on above: Order Comment: Speci men Type: BLOOD SPECIMEN [facility] Address: [address] [place], [place] [address] Performed By: #### 2 4323-8 #### [facility] CLIA [id number] [address] [place] [address] 12867 Chloride [Moles/Vol] 107 mmol/L Normal 98-107 [facility] Comment on above: Order Comment: Speci men Type: BLOOD SPECIMEN [facility] Address: [address] [place] [address] Performed By: #### 2 4323-8 #### [facility] CLIA [id number] [address] [place] [address] 12492 CO2 [Moles/Vol] 20 mmol/L Low 22-30 [facility] Comment on above: Order Comment: Speci men Type: BLOOD SPECIMEN [facility] Address: [address] [place] [address] Performed By: #### 2 4323-8 #### [facility] CLIA [id number] [address] [place] [address]3675 Creatinine [Mass/Vol] 0.72 mg/dL Normal 0.58-0.96 [facility] Comment on above: Order Comment: Speci men Type: BLOOD SPECIMEN [facility] Address: [address] [place] [address] Performed By: #### 2 4323-8 #### [facility] CLIA [id number] [address] [place] [address] Creatinine and Glomerular filtration rate.predicted panel (S/P/Bld) 91 mL/min/1.73m??? Normal >=60 [facility] Comment on above: Order Comment: Margarita zendejas Type: BLOOD SPECIMEN [facility] Address: [address] [place] [address] Result Comment: Estela mated Glomerular Filtration Rate (eGFR) is calculated using the 2020 CKD-EPI creatinine equation. This equation utilizes serum creatinine, sex, and age as parameters. The creatinine assay has traceable calibration to isotope dilution-mass spectrometry. Refer to KDIGO guidelines for clinical interpretation. In patients with unstable renal function, e.g. those with acute kidney injury, the eGFR may not accurately reflect actual GFR. Performed By: #### 2 4323-8 #### [facility] CLIA [id number] [address] [place] [address] Glucose [Mass/Vol] 97 mg/dL Normal 74-99 [facility] Comment on above: Order Comment: Margarita zendejas Type: BLOOD SPECIMEN [facility] Address: [address] [place] [address] Result Comment: The [place] Diabetes Association (ADA) provides guidance for cutoff values for fasting glucose and random glucose. The ADA defines fasting as no caloric intake for at least 8 hours. Fasting plasma glucose results between 100 to 125 mg/dL indicate increased risk for diabetes (prediabetes). Fasting plasma glucose results greater than or equal to 126 mg/dL meet the criteria for diagnosis of diabetes. In the absence of unequivocal hyperglycemia, results should be confirmed by repeat testing. In a patient with classic symptoms of hyperglycemia or hyperglycemic crisis, random plasma glucose results greater than or equal to 200 mg/dL meet the criteria for diagnosis of diabetes. Reference: Standards of Medical Care in Diabetes 2016, [place] Diabetes Association. Diabetes Care. 2016.39(Suppl 1). Performed By: #### 2 4323-8 #### [facility] CLIA [id number] [address] [place] [address] 29975 Phosphate [Mass/Vol] 3.3 mg/dL Normal 2.7-4.8 [facility] Comment on above: Order Comment: Speci men Type: BLOOD SPECIMEN [facility] Address: [address] [place] [address] Performed By: #### 2 4323-8 #### [facility] CLIA [id number] [address] [place] [address] Potassium [Moles/Vol] 4.3 mmol/L Normal 3.7-5.1 [facility] Comment on above: Order Comment: Speci men Type: BLOOD SPECIMEN [facility] Address: [address] [place] [address] Performed By: #### 2 4323-8 #### [facility] CLIA [id number] [address] [place] [address]62 Sodium [Moles/Vol] 138 mmol/L Normal 136-144 [facility] Comment on above: Order Comment: Speci men Type: BLOOD SPECIMEN [facility] Address: [address] [place] [address] Performed By: #### 2 4323-8 #### [facility] CLIA [id number] [address] [place] [address]1828 Urea nitrogen [Mass/Vol] 14 mg/dL Normal 7-21 [facility] Comment on above: Order Comment: Speci men Type: BLOOD SPECIMEN [facility] Address: [address] [place] [address] Performed By: #### 2 4323-8 #### [facility] CLIA [id number] [address] [place] [address] 69146 Ribonucleoprotein extractabl e nuclear Ab Qn (S)on 05-06-2024 ANTI-PARQUET [employer] HELPER QUAL Negative Normal Negative [facility] Comment on above: Order Comment: Speci men Type: BLOOD SPECIMEN [facility] Address: [address] [place] [address] Performed By: #### 5 7021-8 #### [facility] CLIA [id number] [address] [place], [place] [address] [place] [address] [place] RIBOSOMAL PAR[employer] QUAL Positive Abnormal Negative [facility] Comment on above: Order Comment: Margarita zendejas Type: BLOOD SPECIMENOrdering Facility: [facility] Address: [address] [place] [address] Result Comment: Anti -Ribosomal RNA (Ribosomal P) antibody is used as an aid in diagnosis of systemic autoimmune diseases especially systemic lupus erythematosus and mixed connective tissue disease. Cross-reactivity with Anti-butcher antibody is not uncommon. Clinical correlation is required. Test Methodology: Multiplex flow immunoassay. Performed By: #### A NAIFR, 43663-1, 00099-6, 44126-8, 96276-6, 18835-6, 54567-6, 84483-5, 27984-6, 5218-3, 26882-0, STRSER, ANCA ####[facility] [id number] [place] [address] [place] SCL-70 extractable nuclear I gG IA Qn (S)on 05-06-2024 SCLERODERMA AB QUAL Negative Normal Negative [facility] Comment on above: Order Comment: Margarita zendejas Type: BLOOD SPECIMENOrdering Facility: [facility] Address: [address] [place] [address] Performed By: #### A NAIFR, 54531-0, 40256-6, 02314-8, 70670-5, 23995-7, 58105-9, 65394-7, 21433-8, 5218-3, 54277-4, STRSER, ANCA ####[facility] [id number] [place] [address] [place] SCLERODERMA IGG AB <0.2 Normal <1.0 [facility] Comment on above: Order Comment: Margarita zendejas Type: BLOOD SPECIMENOrdering Facility: [facility] Address: [address] [place] [address] Result Comment: Scl- 70/Scleroderma antibody test is used as an aid in diagnosis of systemic sclerosis especially the diffuse cutaneous form. A negative result cannot rule out systemic sclerosis. The final interpretation should consider clinical picture and other test results such as anti-centromere antibody. Test Methodology: Multiplex flow immunoassay. Performed By: #### A NAIFR, 18380-7, 34842-1, 52941-2, 09998-8, 91937-6, 35473-2, 66564-8, 45255-6, 5218-3, 76847-0, STRSER, ANCA ####[facility] [id number] [place] [address] [place] STRONGYLOIDES IGG BLon 05-06 STRONGYLOIDES IGG QUALITATIVE Negative Normal Negative [facility] Comment on above: Order Comment: Speci men Type: BLOOD SPECIMENOrdering Facility: [facility] Address: [address] [place] [address] Performed By: #### A NAIFR, 32549-1, 90773-6, 28354-1, 68364-5, 81084-7, 56767-8, 91186-5, 95871-3, 5218-3, 69959-7, STRSER, ANCA ####[facility] [id number] [place] [address] [place] Sjogrens syndrome-A extracta ble nuclear Ab Qn (S)on 05-06-2024 SSA ANTIBODY QUAL Negative Normal Negative [facility] Comment on above: Order Comment: Speci men Type: BLOOD SPECIMEN [facility] Address: [address] [place] [address] Performed By: #### 5 7021-8 #### [facility] CLIA [id number] [address] [place] [address] [place] Sjogrens syndrome-B extracta ble nuclear Ab Qn (S)on 05-06-2024 SSB ANTIBODY QUAL Negative Normal Negative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 NOTE OF PERSONAL INVOLVEMENT IN CARE I have reviewed the note obtained and documented by the resident and I personally participated in the gaming components. I have discussed the case and management of the patient's care. The following comments revise or confirm relevant gaming components of their note. I agree with the impression and plan as outlined. Patient here for further work-up of undiagnosed hypereosinophilia with rash Considerations are broad, inclusive of: - infectious/parasitic - drug-induced - allergic - inflammatory - malignancy-associated Causes Agree with - Stool O/P. Strongyloides, Histoplasma, TB testing and ID consult - Rheum, P-ANCA, entire MIKKI panel - Biopsy: Either of skin of LN SIGNATURE: Homero Petty MD [facility] MEDICINE HISTORY AND PHYSICAL EXAM SERVICE DATE: 05/06/2024 SERVICE TIME: 12:36 AM Primary Care Physician: Conner Stanley DO NIGHT AND WEEKEND COVERAGE: [facility] COVERAGE: Days: [phone], please page Stick Welder/ resident for patient issues. Nights: [phone], please page Team Jose Hess; overnight/admitting pager [phone] Subjective CHIEF COMPLAINT: Skin rashes HPI: Mirian Corrales is a 68 year old female patient with a past medical history of: osteoporosis and varicose veins presented to the ED from derm clinic for rash. 01/02/2024: After traveling to [facility] in [place], patient developed itchy rash on back which spread down the center to the buttocks and the flanks. She was given Augmentin for 5 days for an unrelated uvula infection and rash cleared. Denies any sick contacts or new medications or products. Mid February 2024: 3 days into trip to [facility] she developed a similar itchy rash on the back, but this time it spread to include all of torso and extremities and face (back>legs>front of torso>upper limbs>face and scalp). She says that she did go into the water, however the rash preceded that. When she got back to [place] on 03/16/24 she went to ED. She was given IM and PO steroids. She thinks the IM may have helped, but that the prednisone made her swollen and caused abdominal pain. She states that after prednisone she experienced swelling of the face especially the eyelids, the buttocks, flanks. After stopping the prednisone, she states that the swelling resolved. Subsequently saw PCP, who treated empirically for scabies with permethrin and ivermectin twice. Rash continued to spread and became more red. She has been to the ER multiple times ([place] [facility] 3 times. On 04/28/2024, she went to [place] [facility]) for her rashes in these 2 months. She was on methylprednisolone which she said helped with her rashes and her lesions improved, however, over the last 2 days, her lesions got worse. Biopsy 04/21/24 --> negative DIF- negative for a specific dermatosis. Unsure of TATY biopsy. She had another skin biopsy from her left hip today. Today, she is comfortable at rest. She has reddish elevated lesions over her whole body, and complains of pruritius. She also has lesions in her oral cavity. She also complains of some scaling of her lesions over her neck, and seeping of clear fluid from the lesions over her back. Patient says lesions appear along lines of pruritus. She mentions that the rashes change in colour from bright red to dark red. She has not had fevers, chills or any other symptoms recently. She also complains of some swollen lymph nodes over her groin, which she noticed when she had swelling all over her body after taking prednisone. Patient also endorses weight loss that the patient attributes to poor appetite 2/2 prednisone (~10 lbs since February, her weight was 125 lbs and decreased to 114 lbs). Finished medrol dose pack a week ago. States topical steroids do not help. No new medications in the month prior to each rash. Reports she does not take any medications chronically. Takes supplements, has been taking for years. Started bactrim yesterday, now held. Reports sensitivity to gluten and wheat. She has never had such symptoms before December. Pt has two brothers that passed from pancreatic cancer, and a fam hx of melanoma, no personal hx of malignancy herself. Her brother also had a H/o psoriasis. Previous treatments: - Oral prednisone - Triamcinolone 0.1% cream - IM decadron - Hydroxyzine 25mg PO Q8H PRN - Ivermectin - Premethrin 5% topical cream - Shantelle 180mg PO - Zyrtec 10mg PO - Desoximetasone 0.05% topical cream Associated symptoms: previously She lives with her partner and son, an (more content not included)... Normal [facility] Hepatic function 2000 panelo n 05-05-2024 Albumin [Mass/Vol] 3.8 g/dL Low 3.9-4.9 [facility] Comment on above: Order Comment: Speci men Type: BLOOD SPECIMEN Ordering Facility: [facility] Address: [address] [place] [address] Performed By: #### 5 7021-8 #### [facility] CLIA [id number] [address] [place], [place] [id number] [address] [place] ALP [Catalytic activity/Vol] 82 U/L Normal 34-123 [facility] Comment on above: Order Comment: Speci men Type: BLOOD SPECIMEN Ordering Facility: [facility] Address: [address] [place] [address] Performed By: #### 5 7021-8 #### [facility] CLIA [id number] [address] [place] [address] [place] ALT [Catalytic activity/Vol] 16 U/L Normal 7-38 [facility] Comment on above: Order Comment: Speci men Type: BLOOD SPECIMEN Ordering Facility: [facility] Address: [address] [place] [address] Performed By: #### 5 7021-8 #### [facility] CLIA [id number] [address] [place] [address] [place] AST [Catalytic activity/Vol] 18 U/L Normal 13-35 [facility] Comment on above: Order Comment: Speci men Type: BLOOD SPECIMEN Ordering Facility: [facility] Address: [address] [place] [address] Performed By: #### 5 7021-8 #### [facility] CLIA [id number] [address] [place] [address] [place] Bilirubin [Mass/Vol] 0.2 mg/dL Normal 0.2-1.3 [facility] Comment on above: Order Comment: Speci men Type: BLOOD SPECIMEN Ordering Facility: [facility] Address: [address] [place] [address] Performed By: #### 5 7021-8 #### [facility] CLIA [id number] [address] [place] [address] [place] Bilirubin.conjugated [Mass/Vol] mg/dL Normal <0.2 [facility] Comment on above: Order Comment: Speci men Type: BLOOD SPECIMEN Ordering Facility: [facility] Address: [address] [place] [address] Performed By: #### 5 7021-8 #### [facility] CLIA [id number] [address] [place] [address] [place] Protein [Mass/Vol] 6.7 g/dL Normal 6.3-8.0 [facility] Comment on above: Order Comment: Speci men Type: BLOOD SPECIMEN Ordering Facility: [facility] Address: [address] [place] [address] Performed By: #### 5 7021-8 #### [facility] CLIA [id number] [address] [place] [address] [place] SURGICAL PATHOLOGYon 024 CASE REPORT Normal [facility] Comment on above: Order Comment: Speci men Type: TISSUE SPECIMENOrdering Facility: [facility] Address: [address] [place] [address] Result Comment: Surg ica Pathology Report Case: [id number] Authorizing Provider: Maverick Israel MD Collected: 05/05/2024 05:51 PM Ordering Location: [facility] Emergency Received: 05/05/2024 08:05 PM Department Pathologist: Roxanne Gomes MD Specimens: A) - Skin, Punch Biopsy, A. left hip, r/o autoimmune disease vs hyper eosinophilic syndrome B) - Skin, Biopsy for Direct Immunofluorescence, B. left hip, r/o autoimmune disease vs hyper eosinophilic syndrome Performed By: #### S ####[facility] [id number] [place] [address] [place] CLINICAL HISTORY HCON chronic rash, elevated eos, no new drug exposure Normal [facility] Comment on above: Order Comment: Speci men Type: TISSUE SPECIMENOrdering Facility: [facility] Address: [address] [place] [address] Performed By: #### S ####[facility] [id number] [place] [address] [place] DIAGNOSIS COMMENT Normal [facility] Comment on above: Order Comment: Speci men Type: TISSUE SPECIMENOrdering Facility: [facility] Address: [address] [place] [address] Result Comment: A. H istologic sections show a compact stratum corneum with areas of parakeratotic serum exudate overlying an acanthotic and markedly spongiotic epidermis with exocytosis of lymphocytes and eosinophils. Within the dermis, there is a mildly dense but diffuse perivascular and interstitial lymphohistiocytic infiltrate with rare eosinophils. Vasculitis is not identified. B. Direct immunofluorescence antibody localization demonstrate negative immunoreactivity for immunoglobulins IgG, IgA, IgM and complement C3 on sections of frozen skin. Overall, these features are those of spongiotic dermatitis with eosinophils and is most consistent with a hypersensitivity dermatitis. While a tissue eosinophilia could result from a systemic eosinophilia, specific features of a hypereosinophilic syndrome are not identified. Correlation with clinical and hematologic features is recommended. Laboratory Developed Test (LDT) Disclaimer: Performance characteristics of immunohistochemical, immunofluorescent and chromogenic in-situ hybridization tests have been determined by the performing laboratory within [facility]???s [facility] Pathology and Laboratory Medicine Department ([facility], [facility], [facility], [facility], [facility], [facility], or [facility]) in a manner consistent with CLIA requirements. One or more of these tests have not been cleared or approved by the FDA. [facility] is regulated under CLIA as qualified to perform high-complexity testing. These tests are used for clinical purposes. They should not be regarded as investigational or for research. Positive and negative controls stain appropriately. Performed By: #### S ####[facility] [id number] [facility] [id number] [address] [place] FINAL DIAGNOSIS Normal [facility] Comment on above: Order Comment: Margarita zendejas Type: TISSUE SPECIMENOrdering Facility: [facility] Address: [address] [place] [address] Result Comment: A. S kin, left hip, punch biopsy: -Spongiotic dermatitis with eosinophils, see comment. B. Skin, left hip, punch biopsy: -Negative direct immunofluorescence, see comment. Performed By: #### S ####[facility] [id number] [place] [address] [place] FINAL PERFORMING LAB Normal [facility] Comment on above: Order Comment: Speci men Type: TISSUE SPECIMENOrdering Facility: [facility] Address: [address] [place] [address] Result Comment: Diag nostic interpretation performed at [facility], [address] [place] [address] CLIA# [id number] Domestic Housekeeper: Rishi Lackey M.D. Performed By: #### S ####[facility] [id number] [address] [place] GROSS DESCRIPTION Normal [facility] Comment on above: Order Comment: Speci men Type: TISSUE SPECIMENOrdering Facility: [facility] Address: [address] [place] [address] Result Comment: A. S kin, Punch Biopsy Received in formalin is a cylindrical segment of skin and subcutaneous tissue measuring 0.4 x 0.3 x 0.2 cm. On the skin surface there is a 0.2 cm, jimenez to jimenez-white, flat area. The specimen is bisected. Totally submitted in one cassette. DB May 05, 2024 11:37 PM Gross examination performed at [facility], [address] [place] [address] B. Skin, Biopsy for Direct Immunofluorescence Received in Adarsh's is a cylindrical segment of skin measuring 0.3 cm in greatest dimension. The specimen is washed in [place]. Totally frozen for Direct Immunofluorescence. Gross examination performed at [facility], [address] [place] [address] KK May 05, 2024 8:56 PM Performed By: #### S ####[facility] [id number] [place] [address] [place] CBC W Auto Differential pane l (Bld)on 05-03-2024 Basophils (Bld) [#/Vol] 0.12 10*3/uL High <0.11 [facility] Comment on above: Order Comment: Speci men Type: BLOOD SPECIMEN Ordering Facility: [facility] Address: [address] [place], [place] [address] Performed By: #### 2 4323-8 #### [facility] CLIA [id number] [address] [place] [address] [place] Basophils/100 WBC (Bld) 1.1 % Normal [facility] Comment on above: Order Comment: Speci men Type: BLOOD SPECIMEN Ordering Facility: [facility] Address: [address] [place] [address] Performed By: #### 2 4323-8 #### [facility] CLIA [id number] [address] [place] [address] [place] Differential cell count method Nom (Bld) Auto Normal [facility] Comment on above: Order Comment: Speci men Type: BLOOD SPECIMEN Ordering Facility: [facility] Address: [address] [place] [address] Performed By: #### 2 4323-8 #### [facility] CLIA [id number] [address] [place] [address] [place] Eosinophils (Bld) [#/Vol] 3.10 10*3/uL High <0.46 [facility] Comment on above: Order Comment: Speci men Type: BLOOD SPECIMEN Ordering Facility: [facility] Address: [address] [place] [address] Performed By: #### 2 4323-8 #### [facility] CLIA [id number] [address] [place], [place] [address] [place] Eosinophils/100 WBC (Bld) 27.3 % Normal [facility] Comment on above: Order Comment: Speci men Type: BLOOD SPECIMEN Ordering Facility: [facility] Address: [address] [place], [place] [address] Performed By: #### 2 4323-8 #### [facility] CLIA [id number] [address] [place], [place] [address] [place] Erythrocyte distribution width (RBC) [Ratio] 14.6 % Normal 11.5-15.0 [facility] Comment on above: Order Comment: Speci men Type: BLOOD SPECIMEN Ordering Facility: [facility] Address: [address] [place] [address] Performed By: #### 2 4323-8 #### [facility] CLIA [id number] [address] [place] [address] [place] Hematocrit (Bld) [Volume fraction] 36.0 % Normal 36.0-46.0 [facility] Comment on above: Order Comment: Speci men Type: BLOOD SPECIMEN Ordering Facility: [facility] Address: [address] [place] [address] Performed By: #### 2 4323-8 #### [facility] CLIA [id number] [address] [place] [address] [place] Hemoglobin (Bld) [Mass/Vol] 11.7 g/dL Normal 11.5-15.5 [facility] Comment on above: Order Comment: Speci men Type: BLOOD SPECIMEN Order[facility] Address: [address] [place] [address] Performed By: #### 2 4323-8 #### [facility] CLIA [id number] [address] [place] [address] [place] Immature granulocytes (Bld) [#/Vol] 0.05 10*3/uL Normal <0.10 [facility] Comment on above: Order Comment: Speci men Type: BLOOD SPECIMEN Order[facility] Address: [address] [place] [address] Performed By: #### 2 4323-8 #### [facility] CLIA [id number] [address] [place] [address] [place] Immature granulocytes/100 WBC (Bld) 0.4 % Normal [facility] Comment on above: Order Comment: Speci men Type: BLOOD SPECIMEN Order[facility] Facility[facility] Address: [address] [place] [address] Performed By: #### 2 4323-8 #### [facility] CLIA [id number] [address] [place] [address] [place] Lymphocytes (Bld) [#/Vol] 1.33 10*3/uL Normal 1.00-4.00 [facility] Comment on above: Order Comment: Speci men Type: BLOOD SPECIMEN Order[facility] Facility: [facility] Address: [address] [place] [address] Performed By: #### 2 4323-8 #### [facility] CLIA [id number] [address] [place] [address] [place] Lymphocytes/100 WBC (Bld) 11.7 % Normal [facility] Comment on above: Order Comment: Speci men Type: BLOOD SPECIMEN Ordering Facility: [facility] Address: [address] [place] [address] Performed By: #### 2 4323-8 #### [facility] CLIA [id number] [address] [place] [address] [place] MCH (RBC) [Entitic mass] 30.6 pg Normal 26.0-34.0 [facility] Comment on above: Order Comment: Speci men Type: BLOOD SPECIMEN Order[facility] Facility: [facility] Address: [address] [place] [address] Performed By: #### 2 4323-8 #### [facility] CLIA [id number] [address] [place] [address] [place] MCHC (RBC) [Mass/Vol] 32.5 g/dL Normal 30.5-36.0 [facility] Comment on above: Order Comment: Speci men Type: BLOOD SPECIMEN Ordering Facility[facility] Address: [address] [place] [address] Performed By: #### 2 4323-8 #### [facility] CLIA [id number] [address] [place] [address] [place] MCV (RBC) [Entitic vol] 94.2 fL Normal 80.0-100.0 [facility] Comment on above: Order Comment: Speci men Type: BLOOD SPECIMEN Order[facility] Address: [address] [place] [address] Performed By: #### 2 4323-8 #### [facility] CLIA [id number] [address] [place] [address] [place] Monocytes (Bld) [#/Vol] 0.91 10*3/uL High <0.87 [facility] Comment on above: Order Comment: Speci men Type: BLOOD SPECIMEN Order[facility] Facility: [facility] Address: [address] [place] [address] Performed By: #### 2 4323-8 #### [facility] CLIA [id number] [address] [place] [address] [place] Monocytes/100 WBC (Bld) 8.0 % Normal [facility] Comment on above: Order Comment: Speci men Type: BLOOD SPECIMEN Order[facility] Facility[facility] Address: [address] [place] [address] Performed By: #### 2 4323-8 #### [facility] CLIA [id number] [address] [place] [address] [place] Neutrophils (Bld) [#/Vol] 5.84 10*3/uL Normal 1.45-7.50 [facility] Comment on above: Order Comment: Speci men Type: BLOOD SPECIMEN Order[facility] Facility[facility] Address: [address] [place] [address] Performed By: #### 2 4323-8 #### [facility] CLIA [id number] [address] [place] [address] [place] Neutrophils/100 WBC (Bld) 51.5 % Normal [facility] Comment on above: Order Comment: Speci men Type: BLOOD SPECIMEN Ordering Facility[facility] Address: [address] [place] [address] Performed By: #### 2 4323-8 #### [facility] CLIA [id number] [address] [place] [address] [place] Nucleated RBC (Bld) [#/Vol] 10*3/uL Normal <0.01 [facility] Comment on above: Order Comment: Speci men Type: BLOOD SPECIMEN Order[facility] Facility[facility] Address: [address] [place] [address] Performed By: #### 2 4323-8 #### [facility] CLIA [id number] [address] [place] [address] [place] Nucleated RBC/100 WBC (Bld) [Ratio] 0.0 /100 WBC Normal [facility] Comment on above: Order Comment: Speci men Type: BLOOD SPECIMEN Order[facility] Facility[facility] Address: [address] [place] [address] Performed By: #### 2 4323-8 #### [facility] CLIA [id number] [address] [place] [address] [place] Platelet mean volume (Bld) [Entitic vol] 9.0 fL Normal 9.0-12.7 [facility] Comment on above: Order Comment: Speci men Type: BLOOD SPECIMEN Order[facility] Facility[facility] Address: [address] [place] [address] Performed By: #### 2 4323-8 #### [facility] CLIA [id number] [address] [place] [address] [place] Platelets (Bld) [#/Vol] 365 10*3/uL Normal 150-400 [facility] Comment on above: Order Comment: Speci men Type: BLOOD SPECIMEN Order[facility] Facility[facility] Address: [address] [place] [address] Performed By: #### 2 4323-8 #### [facility] CLIA [id number] [address] [place] [address] [place] RBC (Bld) [#/Vol] 3.82 10*6/uL Low 3.90-5.20 [facility] Comment on above: Order Comment: Speci men Type: BLOOD SPECIMEN Order[facility] Facility[facility] Address: [address] [place] [address] Performed By: #### 2 4323-8 #### [facility] CLIA [id number] [address] [place] [address] [place] WBC (Bld) [#/Vol] 11.35 10*3/uL High 3.70-11.00 [facility] Comment on above: Order Comment: Speci men Type: BLOOD SPECIMEN Order[facility] Facility[facility] Address: [address] [place] [address] Performed By: #### 2 4323-8 #### [facility] CLIA [id number] [address] [place] [address] [place] Comprehensive metabolic 2000 panelon 05-03-2024 Albumin [Mass/Vol] 3.8 g/dL Low 3.9-4.9 [facility] Comment on above: Order Comment: Speci men Type: BLOOD SPECIMEN Order[facility] Facility[facility] Address: [address] [place] [address] Performed By: #### 2 4323-8 #### [facility] CLIA [id number] [address] [place] [address] ALP [Catalytic activity/Vol] 68 U/L Normal 34-123 [facility] Comment on above: Order Comment: Speci men Type: BLOOD SPECIMEN Order[facility] Facility[facility] Address: [address] [place] [address] Performed By: #### 2 4323-8 #### [facility] CLIA [id number] [address] [place] [address] ALT [Catalytic activity/Vol] 14 U/L Normal 7-38 [facility] Comment on above: Order Comment: Speci men Type: BLOOD SPECIMEN Ordering Facility[facility] Address: [address] [place] [address] Performed By: #### 2 4323-8 #### [facility] CLIA [id number] [address] [place] [address]287 Anion gap [Moles/Vol] 6 mmol/L Low 8-15 [facility] Comment on above: Order Comment: Speci men Type: BLOOD SPECIMEN Ordering Facility[facility] Address: [address] [place] [address] Performed By: #### 2 4323-8 #### [facility] CLIA [id number] [address] [place] [address] 78270 AST [Catalytic activity/Vol] 19 U/L Normal 13-35 [facility] Comment on above: Order Comment: Speci men Type: BLOOD SPECIMEN Ordering Facility[facility] Address: [address] [place] [address] Performed By: #### 2 4323-8 #### [facility] CLIA [id number] [address] [place] [address] Bilirubin [Mass/Vol] 0.2 mg/dL Normal 0.2-1.3 [facility] Comment on above: Order Comment: Speci men Type: BLOOD SPECIMEN Ordering Facility[facility] Address: [address] [place] [address] Performed By: #### 2 4323-8 #### [facility] CLIA [id number] [address] [place] [address] Calcium [Mass/Vol] 9.4 mg/dL Normal 8.5-10.2 [facility] Comment on above: Order Comment: Speci men Type: BLOOD SPECIMEN Ordering Facility[facility] Address: [address] [place] [address] Performed By: #### 2 4323-8 #### [facility] CLIA [id number] [address] [place] [address] Chloride [Moles/Vol] 109 mmol/L High 98-107 [facility] Comment on above: Order Comment: Speci men Type: BLOOD SPECIMEN Ordering Facility: [facility] Address: [address] [place] [address] Performed By: #### 2 4323-8 #### [facility] CLIA [id number] [address] [place] [address] CO2 [Moles/Vol] 27 mmol/L Normal 22-30 [facility] Comment on above: Order Comment: Speci men Type: BLOOD SPECIMEN Ordering Facility: [facility] Address: [address] [place] [address] Performed By: #### 2 4323-8 #### [facility] CLIA [id number] [address] [place] [address] Creatinine [Mass/Vol] 0.74 mg/dL Normal 0.58-0.96 [facility] Comment on above: Order Comment: Speci men Type: BLOOD SPECIMEN Ordering Facility: [facility] Address: [address] [place] [address] Performed By: #### 2 4323-8 #### [facility] CLIA [id number] [address] [place] [address] Creatinine and Glomerular filtration rate.predicted panel (S/P/Bld) 88 mL/min/1.73m??? Normal >=60 [facility] Comment on above: Order Comment: Speci men Type: BLOOD SPECIMEN Ordering Facility: [facility] Address: [address] [place] [address] Result Comment: Estela mated Glomerular Filtration Rate (eGFR) is calculated using the 2020 CKD-EPI creatinine equation. This equation utilizes serum creatinine, sex, and age as parameters. The creatinine assay has traceable calibration to isotope dilution-mass spectrometry. Refer to KDIGO guidelines for clinical interpretation. In patients with unstable renal function, e.g. those with acute kidney injury, the eGFR may not accurately reflect actual GFR. Performed By: #### 2 4323-8 #### [facility] CLIA [id number] [address] [place] [address] Glucose [Mass/Vol] 92 mg/dL Normal 74-99 [facility] Comment on above: Order Comment: Speci men Type: BLOOD SPECIMEN Ordering Facility: [facility] Address: [address] [place], [place] [address] Result Comment: The [place] Diabetes Association (ADA) provides guidance for cutoff values for fasting glucose and random glucose. The ADA defines fasting as no caloric intake for at least 8 hours. Fasting plasma glucose results between 100 to 125 mg/dL indicate increased risk for diabetes (prediabetes). Fasting plasma glucose results greater than or equal to 126 mg/dL meet the criteria for diagnosis of diabetes. In the absence of unequivocal hyperglycemia, results should be confirmed by repeat testing. In a patient with classic symptoms of hyperglycemia or hyperglycemic crisis, random plasma glucose results greater than or equal to 200 mg/dL meet the criteria for diagnosis of diabetes. Reference: Standards of Medical Care in Diabetes 2016, [place] Diabetes Association. Diabetes Care. 2016.39(Suppl 1). Performed By: #### 2 4323-8 #### [facility] CLIA [id number] [address] [place] [address] Potassium [Moles/Vol] 4.0 mmol/L Normal 3.7-5.1 [facility] Comment on above: Order Comment: Robertoi men Type: BLOOD SPECIMEN Ordering Facility: [facility] Address: [address] [place], [place] [address] Performed By: #### 2 4323-8 #### [facility] CLIA [id number] [address] [place] [address] Protein [Mass/Vol] 6.9 g/dL Normal 6.3-8.0 [facility] Comment on above: Order Comment: Robertoi men Type: BLOOD SPECIMEN Ordering Facility: [facility] Address: [address] [place], [place] [address] Performed By: #### 2 4323-8 #### [facility] CLIA [id number] [address] [place] [address] Sodium [Moles/Vol] 142 mmol/L Normal 136-144 [facility] Comment on above: Order Comment: Speci men Type: BLOOD SPECIMEN Ordering Facility: [facility] Address: [address] [place] [address] Performed By: #### 2 4323-8 #### [facility] CLIA [id number] [address] [place] [address] Urea nitrogen [Mass/Vol] 15 mg/dL Normal 7-21 [facility] Comment on above: Order Comment: Speci men Type: BLOOD SPECIMEN Ordering Facility: [facility] Address: [address] [place] [address] Performed By: #### 2 4323-8 #### [facility] CLIA [id number] [address] [place] [address] Etta 05-02-2024 CNPN Telephone (DERMMN) MIRIAN CORRALES ([id number]) 1955 F Date Time Provider Department 05/02/24 EBONIE JAMES DERMMN During your visit today, we recorded the following information about you: Ebonie Lorenzana 05/02/2024 1:17 PM Signed Received OMR and Dermatopathology report. Scanned into the chart. Allergies As of Date: 05/02/2024 Noted Allergy Reaction DAIRY AID (LACTASE) 08/24/2019 7 - Swelling Comments: Bloating WHEAT 08/24/2019 7 - Swelling Date Reviewed: 04/28/2024 Reviewed by: Austin Mccann, JOSÉ ANTONIO - Fully Assessed Reason for Visit: Received Outside Medical Records [1749] Prescriptions as of 05/02/2024 - Lactobacillus acidophilus (PROBIOTIC ORAL) Take by mouth. - cholecalciferol, vitamin D3, (VITAMIN D3 ORAL) Take by mouth. Problem List As Of Date: 05/02/2024 (None) Encounter Status:Closed by EBONIE LORENZANA on 05/02/24 [facility] Etta 04-30-2024 CNPN Telephone (PCDAMN) MIRIAN CORRALES ([id number]) 1955 F Date Time Provider Department 04/30/24 EBONIE JAMES PCDAMN During your visit today, we recorded the following information about you: Ebonie James MD 05/05/2024 1:28 PM Addendum Clinical question: rash Per report from ED: Duration: several weeks Skin symptom(s): itch History of any of the following skin findings: Today patient reports: Itchy rash - trunk and lower extremities Duration: Since February 2024 while visiting [facility] Denies any new medications in the months prior to rash onset. Current treatment: oral prednisone Previous treatments: - Oral prednisone - Triamcinolone 0.1% cream - IM decadron - Hydroxyzine 25mg PO Q8H PRN - Ivermectin - Premethrin 5% topical cream - Shantelle 180mg PO - Zyrtec 10mg PO - Desoximetasone 0.05% topical cream Provide at least ONE focused close up photo, and a distant photo (to demonstrate body location). Include more images when necessary (e.g., rash present on multiple body locations). Limited by photos: Posterior neck, back and stomach with erythematous lichenified plaques Labs - informed that labs were normal Assessment and Recommendations: DDX includes contact dermatitis given the history of travel, signs of lichenification and itching. Lichenification suggests a chronic condition. Reported to be present ~2.5 months. Previously treated for scabies. Outside biopsy - not available, but will be obtained. Close outpatient follow-up with topical triamcinolone 0.1% ointment BID given report that patient was not tolerating oral or Im steroids and patient declines further systemic steroids. Will message schedulers for urgent follow up appointment. Ebonie James MD Addendum: Following consult, review of chart was performed. I had been unable to review chart at time of consult due to technical difficulties (loss of power). 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 Review revealed significant eosinophilia in addition to elevated white count. I sent in an order for repeat labs - cbc and cmp. LFTs and Cr wnl. Eos elevated but trending down. Patient reported at the time that the rash had gone away. Patient was originally scheduled to come in 05/04, but she rescheduled to 05/05. Given eosinophilia, concern for DRESS although difficult to calculate Regiscar without seeing patient in person and getting a full history and exam. Was not told by ED that there was a concern for DRESS and that eos were elevated Patient called to come in early if possible for full evaluation. Patient will be seen today. Please see clinic note for more information. Will also obtain repeat labs. Will likely advise to go the ED for possible admission. Ebonie James MD Addendum 2: Patient seen in clinic today. Advised to go to [facility] ED. Pls see clinic note for details. Ebonie James MD 05/05/2024 9:27 AM Signed Addended by: EBONIE JAMES on: 05/05/2024 09:27 AM Modules accepted: Orders Allergies As of Date: 04/30/2024 Noted Allergy Reaction DAIRY AID (LACTASE) 08/24/2019 7 - Swelling Comments: Bloating WHEAT 08/24/2019 7 - Swelling Date Reviewed: 04/28/2024 Reviewed by: Austin Mccann RN - Fully Assessed Primary Visit Diagnosis:Rash and nonspecific skin eruption [R21] Order(s):COMPLETE BLOOD COUNT AND DIFFERENTIAL [SQCBCDIF] Order #: [id number] FUTURE COMPREHENSIVE METABOLIC PANEL [SQCMP] Order #: [id number] FUTURE Prescriptions as of 05/05/2024 - hydrOXYzine HCl (ATARAX) 10 mg tablet Take 10 mg by mouth at bedtime as needed for itching/rash. - sulfamethoxazole-trime thoprim (BACTRIM DS) 800-160 mg per tablet Take 1 tablet by mouth every 12 hours. - fexofenadine (SHANTELLE) 60 mg tablet Take 60 mg by mouth once daily. - Lactobacillus acidophilus (PROBIOTIC ORAL) Take by mouth. - cholecalciferol, vitamin D3, (VITAMIN D3 ORAL) Take by mouth. Problem List As Of Date: 04/30/2024 (None) Encounter Status:Closed by EBONIE JAMES on 04/30/24 Normal [facility] CBC W Auto Differential pane l (Bld)on 04-28-2024 Basophils (Bld) [#/Vol] 0.09 10*3/uL Normal <0.11 [facility] Comment on above: Order Comment: Speci men Type: BLOOD SPECIMEN Ordering Facility: [facility] Address: [address] [place] [address] Performed By: #### 5 7021-8 #### [facility] CLIA [id number] [address] [place] [address] [place] Basophils/100 WBC (Bld) 0.5 % [facility] Comment on above: Order Comment: Speci men Type: BLOOD SPECIMEN Ordering Facility: [facility] Address: [address] [place] [address] Performed By: #### 5 7021-8 #### [facility] CLIA [id number] [address] [place] [address] [place] Differential cell count method Nom (Bld) Auto Normal [facility] Comment on above: Order Comment: Speci men Type: BLOOD SPECIMEN Ordering Facility: [facility] Address: [address] [place] [address] Performed By: #### 5 7021-8 #### [facility] CLIA [id number] [address] [place] [address] [place] Eosinophils (Bld) [#/Vol] 7.50 10*3/uL High <0.46 [facility] Comment on above: Order Comment: Speci men Type: BLOOD SPECIMEN Ordering Facility: [facility] Address: [address] [place] [address] Performed By: #### 5 7021-8 #### [facility] CLIA [id number] [address] [place] [address] [place] Eosinophils/100 WBC (Bld) 42.9 % Normal [facility] Comment on above: Order Comment: Speci men Type: BLOOD SPECIMEN Ordering Facility: [facility] Address: [address] [place] [address] Performed By: #### 5 7021-8 #### [facility] CLIA [id number] [address] [place] [address] [place] Erythrocyte distribution width (RBC) [Ratio] 14.9 % Normal 11.5-15.0 [facility] Comment on above: Order Comment: Speci men Type: BLOOD SPECIMEN Ordering Facility: [facility] Address: [address] [place] [address] Performed By: #### 5 7021-8 #### [facility] CLIA [id number] [address] [place] [address] [place] Hematocrit (Bld) [Volume fraction] 39.0 % Normal 36.0-46.0 [facility] Comment on above: Order Comment: Speci men Type: BLOOD SPECIMEN Ordering Facility: [facility] Address: [address] [place] [address] Performed By: #### 5 7021-8 #### [facility] CLIA [id number] [address] [place] [address] [place] Hemoglobin (Bld) [Mass/Vol] 12.7 g/dL Normal 11.5-15.5 [facility] Comment on above: Order Comment: Speci men Type: BLOOD SPECIMEN Ordering Facility: [facility] Address: [address] [place] [address] Performed By: #### 5 7021-8 #### [facility] CLIA [id number] [address] [place] [address] [place] Immature granulocytes (Bld) [#/Vol] 0.11 10*3/uL High <0.10 [facility] Comment on above: Order Comment: Speci men Type: BLOOD SPECIMEN Ordering Facility: [facility] Address: [address] [place] [address] Performed By: #### 5 7021-8 #### [facility] CLIA [id number] [address] [place] [address] [place] Immature granulocytes/100 WBC (Bld) 0.6 % Normal [facility] Comment on above: Order Comment: Speci men Type: BLOOD SPECIMEN Ordering Facility: [facility] Address: [address] [place] [address] Performed By: #### 5 7021-8 #### [facility] CLIA [id number] [address] [place] [address] [place] Lymphocytes (Bld) [#/Vol] 2.33 10*3/uL Normal 1.00-4.00 [facility] Comment on above: Order Comment: Speci men Type: BLOOD SPECIMEN Ordering Facility: [facility] Address: [address] [place] [address] Performed By: #### 5 7021-8 #### [facility] [place] [id number] [address] [place] Lymphocytes/100 WBC (Bld) 13.3 % Normal [facility] Comment on above: Order Comment: Speci men Type: BLOOD SPECIMEN Ordering Facility: [facility] Address: [address] [place] [address] Performed By: #### 5 7021-8 #### [facility] IA [id number] [address] [place] [id number] [place] MCH (RBC) [Entitic mass] 30.7 pg Normal 26.0-34.0 [facility] Comment on above: Order Comment: Speci men Type: BLOOD SPECIMEN Ordering Facility: [facility] Address: [address] [place] [address] Performed By: #### 5 7021-8 #### [facility] IA [id number] [address] [place] [id number] [place] MCHC (RBC) [Mass/Vol] 32.6 g/dL Normal 30.5-36.0 [facility] Comment on above: Order Comment: Speci men Type: BLOOD SPECIMEN Ordering Facility: [facility] Address: [address] [place] [address] Performed By: #### 5 7021-8 #### [facility] IA [id number] [address] [place] [address] [place] MCV (RBC) [Entitic vol] 94.2 fL Normal 80.0-100.0 [facility] Comment on above: Order Comment: Speci men Type: BLOOD SPECIMEN Ordering Facility: [facility] Address: [address] [place] [address] Performed By: #### 5 7021-8 #### [facility] IA [id number] [address] [place] [address] [place] Monocytes (Bld) [#/Vol] 0.80 10*3/uL Normal <0.87 [facility] Comment on above: Order Comment: Speci men Type: BLOOD SPECIMEN Ordering Facility: [facility] Address: [address] [place] [address] Performed By: #### 5 7021-8 #### [facility] IA [id number] [address] [place] [address] [place] Monocytes/100 WBC (Bld) 4.6 % Normal [facility] Comment on above: Order Comment: Speci men Type: BLOOD SPECIMEN Ordering Facility: [facility] Address: [address] [place] [address] Performed By: #### 5 7021-8 #### [facility] IA [id number] [address] [place] [address] [place] Neutrophils (Bld) [#/Vol] 6.64 10*3/uL Normal 1.45-7.50 [facility] Comment on above: Order Comment: Speci men Type: BLOOD SPECIMEN Ordering Facility: [facility] Address: [address] [place] [address] Performed By: #### 5 7021-8 #### [facility] IA [id number] [address] [place] [address] [place] Neutrophils/100 WBC (Bld) 38.1 % Normal [facility] Comment on above: Order Comment: Speci men Type: BLOOD SPECIMEN Ordering Facility: [facility] Address: [address] [place] [address] Performed By: #### 5 7021-8 #### [facility] IA [id number] [address] [place] [address] [place] Nucleated RBC (Bld) [#/Vol] 10*3/uL Normal <0.01 [facility] Comment on above: Order Comment: Speci men Type: BLOOD SPECIMEN Ordering Facility: [facility] Address: [address] [place] [address] Performed By: #### 5 7021-8 #### [facility] IA [id number] [address] [place] [address] [place] Nucleated RBC/100 WBC (Bld) [Ratio] 0.0 /100 WBC Normal [facility] Comment on above: Order Comment: Speci men Type: BLOOD SPECIMEN Ordering Facility: [facility] Address: [address] [place] [address] Performed By: #### 5 7021-8 #### [facility] IA [id number] [address] [place] [address] [place] Platelet mean volume (Bld) [Entitic vol] 9.0 fL Normal 9.0-12.7 [facility] Comment on above: Order Comment: Speci men Type: BLOOD SPECIMEN Ordering Facility[facility] Address: [address] [place] [address] Performed By: #### 5 7021-8 #### [facility] IA [id number] [address] [facility] [place] [address] [place] Platelets (Bld) [#/Vol] 403 10*3/uL High 150-400 [facility] Comment on above: Order Comment: Speci men Type: BLOOD SPECIMEN Ordering Facility: [facility] Address: [address] [place] [address] Performed By: #### 5 7021-8 #### [facility] IA [id number] [address] [place] [address] [place] RBC (Bld) [#/Vol] 4.14 10*6/uL Normal 3.90-5.20 [facility] Comment on above: Order Comment: Speci men Type: BLOOD SPECIMEN Ordering Facility: [facility] Address: [address] [place] [address] Performed By: #### 5 7021-8 #### [facility] CLIA [id number] [address] [place] [address] [place] WBC (Bld) [#/Vol] 17.47 10*3/uL High 3.70-11.00 [facility] Comment on above: Order Comment: Speci men Type: BLOOD SPECIMEN Ordering Facility: [facility] Address: [address] [place] [address] Performed By: #### 5 7021-8 #### [facility] CLIA [id number] [address] [place] [address] [place] CRP SerPl-ncon 04-28-2024 CRP [Mass/Vol] mg/L Normal <0.9 [facility] Comment on above: Order Comment: Speci men Type: BLOOD SPECIMEN Ordering Facility[facility] Address: [address] [place] [address] Performed By: #### 1 988-5, 65187-8 #### [facility] IA [id number] [address] [place] [address] [place] Comprehensive metabolic 2000 panelon 04-28-2024 Albumin [Mass/Vol] 3.8 g/dL Low 3.9-4.9 [facility] Comment on above: Order Comment: Speci men Type: BLOOD SPECIMEN Ordering Facility[facility] Address: [address] [place] [address] Performed By: #### 1 988-5, 51169-3 #### [facility] CLIA [id number] [address] [place] [address] [place] ALP [Catalytic activity/Vol] 76 U/L Normal 34-123 [facility] Comment on above: Order Comment: Speci men Type: BLOOD SPECIMEN Ordering Facility[facility] Address: [address] [place] [address] Performed By: #### 1 988-5, #### [facility] CLIA [id number] [address] [place] [address] [place] ALT [Catalytic activity/Vol] 18 U/L Normal 7-38 [facility] Comment on above: Order Comment: Speci men Type: BLOOD SPECIMEN Ordering Facility[facility] Address: [address] [place] [address] Performed By: #### 1 988-5, #### [facility] CLIA [id number] [address] [place] [address] [place] Anion gap [Moles/Vol] 9 mmol/L Normal 8-15 [facility] Comment on above: Order Comment: Speci men Type: BLOOD SPECIMEN Ordering Facility[facility] Address: [address] [place] [address] Performed By: #### 1 988-5, #### [facility] CLIA [id number] [address] [place] [address] [place] AST [Catalytic activity/Vol] 24 U/L Normal 13-35 [facility] Comment on above: Order Comment: Speci men Type: BLOOD SPECIMEN Ordering Facility: [facility] Address: [address] [place] [address] Performed By: #### 1 988-5, #### [facility] CLIA [id number] [address] [place] [address] [place] Bilirubin [Mass/Vol] 0.3 mg/dL Normal 0.2-1.3 [facility] Comment on above: Order Comment: Speci men Type: BLOOD SPECIMEN Ordering Facility[facility] Address: [address] [place] [address] Performed By: #### 1 988-5, #### [facility] CLIA [id number] [address] [place] [address] [place] Calcium [Mass/Vol] 8.7 mg/dL Normal 8.5-10.2 [facility] Comment on above: Order Comment: Speci men Type: BLOOD SPECIMEN Ordering Facility[facility] Address: [address] [place] [address] Performed By: #### 1 988-5, #### [facility] CLIA [id number] [address] [place] [address] [place] Chloride [Moles/Vol] 103 mmol/L Normal 98-107 [facility] Comment on above: Order Comment: Speci men Type: BLOOD SPECIMEN Ordering Facility[facility] Address: [address] [place] [address] Performed By: #### 1 988-5, #### [facility] CLIA [id number] [address] [place] [address] [place] CO2 [Moles/Vol] 26 mmol/L Normal 22-30 [facility] Comment on above: Order Comment: Speci men Type: BLOOD SPECIMEN Ordering Facility[facility] Address: [address] [place] [address] Performed By: #### 1 988-5, #### [facility] IA [id number] [address] [place] [address] [place] Creatinine [Mass/Vol] 0.64 mg/dL Normal 0.58-0.96 [facility] Comment on above: Order Comment: Speci men Type: BLOOD SPECIMEN Ordering Facility[facility] Address: [address] [place] [address] Performed By: #### 1 988-5, 16841-8 #### [facility] CLIA [id number] [address] [place] [address] [place] Creatinine and Glomerular filtration rate.predicted panel (S/P/Bld) 96 mL/min/1.73m??? Normal >=60 [facility] Comment on above: Order Comment: Speci men Type: BLOOD SPECIMEN Ordering Facility: [facility] Address: [address] [place] [address] Result Comment: Estela mated Glomerular Filtration Rate (eGFR) is calculated using the 2020 CKD-EPI creatinine equation. This equation utilizes serum creatinine, sex, and age as parameters. The creatinine assay has traceable calibration to isotope dilution-mass spectrometry. Refer to KDIGO guidelines for clinical interpretation. In patients with unstable renal function, e.g. those with acute kidney injury, the eGFR may not accurately reflect actual GFR. Performed By: #### 1 988-5, 77126-0 #### [facility] CLIA [id number] [address] [facility] [place] [address] [place] Glucose [Mass/Vol] 96 mg/dL Normal 74-99 [facility] Comment on above: Order Comment: Margarita zendejas Type: BLOOD SPECIMEN Ordering Facility: [facility] Address: [address] [place] [address] Result Comment: The [place] Diabetes [employer] (ADA) provides guidance for cutoff values for fasting glucose and random glucose. The ADA defines fasting as no caloric intake for at least 8 hours. Fasting plasma glucose results between 100 to 125 mg/dL indicate increased risk for diabetes (prediabetes). Fasting plasma glucose results greater than or equal to 126 mg/dL meet the criteria for diagnosis of diabetes. In the absence of unequivocal hyperglycemia, results should be confirmed by repeat testing. In a patient with classic symptoms of hyperglycemia or hyperglycemic crisis, random plasma glucose results greater than or equal to 200 mg/dL meet the criteria for diagnosis of diabetes. Reference: Standards of Medical Care in Diabetes 2016, [place] Diabetes Association. Diabetes Care. 2016.39(Suppl 1). Performed By: #### 1 988-5, 41793-4 #### [facility] CLIA [id number] [facility] [place] [address] [place] Potassium [Moles/Vol] 4.1 mmol/L Normal 3.7-5.1 [facility] Comment on above: Order Comment: Margarita zendejas Type: BLOOD SPECIMEN Ordering Facility: [facility] Address: [address] [place] [address] Performed By: #### 1 988-5, 84502-0 #### [facility] CLIA [id number] [place] [address] [place] Protein [Mass/Vol] 6.7 g/dL Normal 6.3-8.0 [facility] Comment on above: Order Comment: Speci men Type: BLOOD SPECIMEN Ordering Facility: [facility] Address: [address] [place], [place] [address] Performed By: #### 1 988-5, 23917-1 #### [facility] CLIA [id number] [address] [place] [address] [place] Sodium [Moles/Vol] 138 mmol/L Normal 136-144 [facility] Comment on above: Order Comment: Speci men Type: BLOOD SPECIMEN Ordering Facility: [facility] Address: [address] [place], [place] [address] Performed By: #### 1 988-5, 13762-8 #### [facility] CLIA [id number] [address] [place] [address] [place] Urea nitrogen [Mass/Vol] 13 mg/dL Normal 7-21 [facility] Comment on above: Order Comment: Speci men Type: BLOOD SPECIMEN Ordering Facility: [facility] Address: [address] [place] [address] Performed By: #### 1 988-5, 45614-8 #### [facility] CLIA [id number] [place] [address] [place] ED NOTEon 04-28-2024 ED NOTE HNO ID: [id number] Author: CHRISTOPHER REYEZ RN Service: ? Author Type: Registered Nurse Type: ED Notes Filed: 04/28/2024 22:18 Note Text: Discharge instructions reviewed with patient - see AVS. Pt able to dress self and ambulate with steady gait. Family present to drive patient home. Patient knows to return to ED with worsening signs/symptoms and follow up as directed. Normal [facility] ED PROV NOTEon 04-28-2024 ED PROV NOTE HNO ID: [id number] Author: LINDA HODGE MD Service: Emergency Medicine Author Type: Physician Type: ED Provider Notes Filed: 04/28/2024 23:31 Note Text: ED Provider Note Patient Name: Mirian Corrales : 1955 SERVICE DATE: 04/28/24 History Patient presents with: Rash: Ongoing rash since February, full body extending to face, airway intact, no edema seen HPI Mirian Corrales is a 68 year old female with PMH osteoporosis, varicose veins presenting with rash. Patient endorses ongoing rash for the last several weeks. She has been on oral steroids with intermittent improvement in rash, however then has recurrence of symptoms after discontinuation of oral steroids. She has had edema associated with the rash as well. There is no mucosal involvement. There is no involvement of the palmar or plantar surfaces. She denies any new contact dermatitis or any new substances. Patient recently completed course of Medrol Dosepak and this is the best the rash has looked, however she is concerned that the rash will recur due to discontinuation of the steroids. She previously was receiving injection of steroids with mild improvement in symptoms. She denies any new medications aside from the rashes. She endorses chills at home, however no fevers. Chart review: ED visit from 03/25/2024 reviewed, the above-stated medical history was noted at that time. Office visit from 03/13/2024 reviewed, patient was seen at that time for rash. Patient notes that she had similar rash when she traveled to [facility] previously and had prior rash in December 2023. She was started on a steroid taper at that time. She was endorsing pruritus. She had documentation of wheat allergy. She was given referral to allergy clinic. No past medical history on file. No past surgical history on file. FAMILY HISTORY Problem Relation Age of Onset Thyroid Mother Skin Cancer Father 88 Skin Cancer Brother 45 Ovarian cancer Paternal Grandmother 77 Skin Cancer Niece 25 Breast Cancer Maternal Aunt 42 Breast Cancer Paternal Aunt 75 Osteoporosis Paternal Aunt Heart Attack Maternal Uncle 80 Social History Tobacco Use Smoking status: Never Smokeless tobacco: Never Vaping Use Vaping Use: Never used Substance and Sexual Activity Alcohol use: Yes Drug use: Never Sexual activity: Yes Partners: Male ALLERGIES Allergen Reactions Dairy Aid [Lactase] Swelling Bloating Wheat Swelling Review of Systems Constitutional: Negative for fatigue and fever. Respiratory: Negative for cough and shortness of breath. Cardiovascular: Negative for chest pain. Gastrointestinal: Negative for abdominal pain, diarrhea, nausea and vomiting. Skin: Positive for rash. Negative for wound. Neurological: Negative for dizziness, weakness, numbness and headaches. Physical Exam Vitals [04/28/24 1638] BP Pulse Temp Temp src Resp SpO2 Weight Height 117/65 86 36.9 ?C (98.4 ?F) Oral 16 98 % -- -- Physical Exam Constitutional: General: She is not in acute distress. Appearance: She is not ill-appearing, toxic-appearing or diaphoretic. HENT: Nose: Nose normal. Mouth/Throat: Mouth: Mucous membranes are moist. Pharynx: No oropharyngeal exudate or posterior oropharyngeal erythema. Eyes: Extraocular Movements: Extraocular movements intact. Pupils: Pupils are equal, round, and reactive to light. Cardiovascular: Rate and Rhythm: Normal rate and regular rhythm. Pulses: Normal pulses. Heart sounds: No murmur heard. No friction rub. No gallop. Pulmonary: Effort: Pulmonary effort is normal. No respiratory distress. Breath sounds: No wheezing, rhonchi or rales. Abdominal: General: There is no distension. Palpations: Abdomen is soft. Tenderness: There is no abdominal tenderness. There is no guarding or rebound. Skin: Capillary Refill: Capillary refill takes less than 2 seconds. Comments: Diffuse erythematous, blanching rash across the chest, abdomen, back, bilateral upper and lower extremities and the face, intermittent areas appear urticarial. There are also dry, flaking areas as well. Neurological: Mental Status: She is alert and oriented to person, place, and time. Mental status is at baseline. Cranial Nerves: No cranial nerve deficit. Sensory: No sensory deficit. Motor: No weakness. Diagnostic Testing ED Labs Ordered and Reviewed COMPLETE BLOOD COUNT AND DIFFERENTIAL - Abnormal; Notable for the following components: Result Value Ref Range WBC 17.47 (*) 3.70 - 11.00 k/uL Platelet Count 403 (*) 150 - 400 k/uL Abs Eosin 7.50 (*) <0.46 k/uL Abs Immature Gran 0.11 (*) <0.10 k/uL All other components within normal limits COMPREHENSIVE METABOLIC PANEL - Abnormal; Notable for the following components: Albumin 3.8 (*) 3.9 - 4.9 g/dL All other components within normal limits C-REACTIVE PROTEIN - Normal Procedures ED Course / Clinical Impression ED Course as of 04/28/24 2329 Pe (more content not included)... Normal [facility] ED Triage Noteon 04-28-2024 ED Triage Note HNO ID: [id number] Author: ROBBY SLOAN DO Service: Emergency Medicine Author Type: Physician Type: ED Triage Notes Filed: 04/28/2024 16:46 Note Text: ED INTAKE NOTE Patient Name: Mirian Corrales Service Date: 04/28/24 BRIEF HPI: This is a 68 year old female who presents to the ED with: Rash This is a pleasant 68-year-old female presenting with rash. Has been going on since this past February, does get better and worse. Has been seen by providers, prescribed steroid regimen and antipruritic therapy. The rash does itch intensely, but does not hurt. She denies any new environmental exposures or food exposures that she can recall, but notably, the rash did begin when she traveled to [facility] and ate wheat, which she has a documented allergy to. She has never been formally diagnosed with celiac disease. She has no airway complaints. BRIEF EXAM: NAD Awake and Alert Non labored breathing No focal neurological deficits INITIAL WORKUP AND DECISION MAKING: Orders Placed This Encounter Complete Blood Count and Differential Comprehensive Metabolic Panel C-Reactive Protein Provider examination performed via virtual platform with assistance from bedside clinician. SIGNATURE: Robby Sloan DO Normal [facility] HAV IgM Ser Qlon 04-28-2024 HAV IgM Ql (S) Negative Normal Negative [facility] Comment on above: Order Comment: Speci men Type: BLOOD SPECIMEN Ordering Facility: [facility] Address: [address] [place] [address] Result Comment: No e vidence of recent infection with Hepatitis A virus. Performed By: #### 5 195-3, 19272-4, 02216-5 #### [facility] CLIA [id number] [address] [place], [place] [address] [place] [address] [place] HBV core IgM Ser Qlon 2023 HBV core IgM Ql (S) Negative Normal Negative [facility] Comment on above: Order Comment: Speci cristiana Type: BLOOD SPECIMEN Ordering Facility: [facility] Address: [address] [place] [address] Result Comment: No e vidence of recent infection with Hepatitis B virus. Should recent infection be suspected, repeat testing may be considered 3-4 weeks after this draw. Performed By: #### 5 195-3, 95608-7, 43752-4 #### [facility] CLIA [id number] [address] [place] [address] [place] HBV surface Ag Ser Qlon 08-0 HBV surface Ag Ql (S) Negative Normal Negative [facility] Comment on above: Order Comment: Speci men Type: BLOOD SPECIMEN Ordering Facility: [facility] Address: [address] [place] [address] Performed By: #### 5 195-3, 17122-3, 29439-2 #### [facility] CLIA [id number] [address] [place] [address] [place] HCV RNA SerPl POLLO+probe-aCnc on 04-28-2024 HCV RNA POLLO+probe Qn Not detected Normal HCV RNA not detected by PCR. [facility] Comment on above: Order Comment: Margarita [facility] Type: BLOOD SPECIMEN Ordering Facility: [facility] Address: [address] [place] [address] Performed By: #### 1 1011-4 #### [facility] CLIA [id number] [address] [place] [address] [place] Etta 04-24-2024 CNPN Telephone (DERMMN) MIRIAN CORRALES ([id number]) 1955 F Date Time Provider Department 04/24/24 NURSE CLINICAL DERMMN During your visit today, we recorded the following information about you: Leola Case RN 04/24/2024 8:34 AM Signed ----- Message from Radha Sepulveda sent at 04/24/2024 7:54 AM EDT ----- Patient has been identified by name and Date of : Yes Patient: Mirain Corrales Date of : 1955 Provider for this encounter : none No primary care provider on file. Reason for call: Triage Was an appointment scheduled: No Reason for requesting visit (RFV/signs and symptoms/diagnosis) : 8 week rash all over body w chills. Seen my prior derm Person calling: daughter: daughter says call mother Return call to: self Call patient at: at home [phone] (home) [phone] (cell) Payor: MEDICARE / Plan: MEDICARE A AND B / Product Type: Medicare / Leola Wadsworth RN 04/24/2024 8:35 AM Signed Patient has been seen by outside yard caller - can we assist in getting records sent to [facility] fax? Leola Case RN April 24, 2024 8:34 AM Ebonie Lorenzana 04/24/2024 12:22 PM Signed Called and spoke with patient and advised her we need her outside medicals records faxed to us. Provided patient with fax # and she will work on getting the records over to us. Kt [place] 04/27/2024 8:36 AM Signed [facility] Received clinical documents. Uploaded to chart. Vinh Villalobos MD 05/01/2024 3:49 PM Signed OUTSIDE MEDICAL RECORD REVIEW AND SUMMARY Referring Provider/Address: [facility] Internal Medicine Specialty: Internal Mediciene Patient's Location: [address] [place] [id number] Pages of records reviewed: > 30 Problem: Rash Duration: Months (December 2023) Anatomic location: Back, abdomen, inner thighs Diagnosis (es): Rash and nonspecific skin eruption Is it biopsy proven: No DIAGNOSTIC TESTS: Prior Biopsies: Noted that patient had a biopsy completed 04/21 in PCP note, however we do not have access to this biopsy report - will need to request Other Tests: CXR 04/04/2024 IMPRESSION: NO ACUTE CARDIOPULMONARY ABNORMALITY. Relevant Labs: 07/06/2023 MIKKI - negative Rheumatoid factor - negative PTH - 36 (WNL) Vitamin D 69.1 (WNL) CRP <0.2 CMP - WNL Sed Rate 14 (WNL) CBC w diff - WBC 3.8 (L) Patch Testing done: No Prior Therapies: - Oral prednisone - Triamcinolone 0.1% cream - IM decadron - Hydroxyzine 25mg PO Q8H PRN - Ivermectin - Premethrin 5% topical cream - Shantelle 180mg PO - Zyrtec 10mg PO - Desoximetasone 0.05% topical cream Assessment: 68 year old female who is referred to dermatology for evaluation of a rash. Per review of outside documentation, rash was noted to start February 2024 while the patient was in [place]. Initially stated as a pruritic, burning rash on the back which has spread. She was previously diagnosed by an outside provider with scabies and treated with ivermectin and premethrin. Patient was noted to have possible enlarged lymph nodes and edema around the eyes. Patient was seen again by her outside provider 04/28/24 who was concerned for DRESS and patient was sent to [facility] ED on 04/28. At that time, she was noted to have no mucosal involvement, involvement of palms/soles. No new medications. Dermatology was e-consulted and provided recommendation of topical triamcinolone 0.1% and follow up outpatient. Patient presents to [facility] dermatology for second opinion. Recommendation for Dermatology Appointment: Live Appointment to be scheduled with Provider: [facility] Team Recommendation for Appointment Type: LIVE Appointment Location: [facility] Appointment Duration: 2 slot Appointment Notes: schedule appointment for2nd opinion Appointment Triage: first available (patient already scheduled) Vinh Villalobos MD May 01, 2024 3:15 PM Allergies As of Date: 04/24/2024 Noted Allergy Reaction DAIRY AID (LACTASE) 08/24/2019 7 - Swelling Comments: Bloating WHEAT 08/24/2019 7 - Swelling Date Reviewed: 08/24/2019 Reviewed by: Jenise Soler - Fully Assessed Reason for Visit: Appointment [186] Received Outside Medical Records [[id number]] Prescriptions as of 05/01/2024 - Lactobacillus acidophilus (PROBIOTIC ORAL) Take by mouth. - cholecalciferol, vitamin D3, (VITAMIN D3 ORAL) Take by mouth. Problem List As Of Date: 04/24/2024 (None) Encounter Status:Closed by LEOLA CASE on 04/24/24 Normal [facility] MIKKI Antinuclear Antibodieson 04-08-2024 Antinuclear Abs, IFA Negative Normal . [facility] Comment on above: Result Comment: Nega tive <1:80 Borderline 1:80 Positive >1:80 ICAP nomenclature: AC-0 For more information about Hep-2 cell patterns use ANApatterns.org, the official website for the International Consensus on Antinuclear Antibody (MIKKI) Patterns (ICAP). Speckled cytoplasmic fluorescence is present. The antibodies noted in this pattern may be associated with, but not restricted to, primary biliary cirrhosis (PBC), polymyositis and dermatomyositis (PM/DM), and/or systemic lupus erythematosus (SLE). Performed at: [facility] [id number] Vice President Quality: Lj Solano PhD, Phone: [phone] PERFORMED BY: [place] [address] PATHOLOGIST HEAD CONCIERGE EVAN REYES M.D. Performed By: #### S CAN CBC, CMP #### [facility] [address] [place] [address] #### RA, MIKKI #### [facility] , Alanine aminotransferase [En zymatic activity/volume] in Serum or PlasmaOrdered By: Carlin Godfrey on 04-08-2024 ALT [Catalytic activity/Vol] 12 U/L Normal 7-52 [facility] Comment on above: Performed By: #### S CAN CBC, CMP #### [facility] [address] [place] [address] [place] #### RA, MIKKI #### [facility] , Albumin [Mass/volume] in Ser um or Plasma by Bromocresol green (BCG) dye binding methoOrdered By: Carlin Godfrey on 04-08-2024 Albumin BCG dye [Mass/Vol] 3.1 g/dL Low 3.5-5.7 [facility] Alkaline phosphatase [Enzyma tic activity/volume] in Serum or PlasmaOrdered By: Carlin Godfrey on 04-08-2024 ALP [Catalytic activity/Vol] 55 U/L Normal 34-104 [facility] Comment on above: Performed By: #### S CAN CBC, CMP #### [facility] [address] [place] [address] [place] #### RA, MIKKI #### [facility] , Anti-dsDNA(DBL)Abon 04-08-20 24 Anti-dsDNA(DBL)Ab <1 Normal 0-9 [facility] Comment on above: Result Comment: Nega tive <5 Equivocal 5 - 9 Positive >9 Performed at: [facility] [address] [id number] Vice President Quality: Lj Solano PhD, Phone: [phone] PERFORMED BY: [place] [address] PATHOLOGIST HEAD CONCIERGE EVAN REYES M.D. Performed By: #### A DNA #### [facility] , Aspartate aminotransferase [ Enzymatic activity/volume] in Serum or PlasmaOrdered By: Carlin Godfrey on 04-08-2024 AST [Catalytic activity/Vol] 16 U/L Normal 13-39 [facility] Comment on above: Performed By: #### S CAN CBC, CMP #### [facility] [address] [place] [address] [place] #### RA, MIKKI #### [facility] , Automated basophil %Ordered By: Carlin Godfrey on 04-08-2024 Basophils/100 WBC (Bld) 0.2 % Normal . [facility] Comment on above: Performed By: #### S CAN CBC, CMP #### [facility] [address] [place] [address] [place] #### RA, MIKKI #### [facility] , Automated basophil countOrde red By: Carlin Godfrey on 04-08-2024 Basophils (Bld) [#/Vol] 0.0 10*3/uL Normal 0.0-0.2 [facility] Comment on above: Performed By: #### S CAN CBC, CMP #### [facility] [address] [place] [address] [place] #### RA, MIKKI #### [facility] , Automated blood monocyte cou ntOrdered By: Carlin Bekah on 04-08-2024 Monocytes (Bld) [#/Vol] 1.2 10*3/uL High 0.0-0.8 [facility] Comment on above: Performed By: #### S CAN CBC, CMP #### [place] [address] [place] #### RA, MIKKI #### [facility] , Automated eosinophil %Ordere d By: Carlin Bekah on 04-08-2024 Eosinophils/100 WBC (Bld) 40.7 % Normal . [facility] Comment on above: Performed By: #### S CAN CBC, CMP #### [place] [address] [place] #### RA, MIKKI #### [facility] , Automated eosinophil countOr dered By: Carlinkecia Godfrey on 04-08-2024 Eosinophils (Bld) [#/Vol] 6.9 10*3/uL High 0.0-0.45 [facility] Comment on above: Performed By: #### S CAN CBC, CMP #### [place] [address] [place] #### RA, MIKKI #### [facility] , Automated monocyte %Ordered By: Carlin Godfrey on 04-08-2024 Monocytes/100 WBC (Bld) 6.9 % Normal . [facility] Comment on above: Performed By: #### S CAN CBC, CMP #### [facility] [address] [place] [address] [place] #### RA, MIKKI #### [facility] , Automated neutrophil %Ordere d By: Carlin Godfrey on 04-08-2024 Neutrophils/100 WBC (Bld) 36.5 % Normal . [facility] Comment on above: Performed By: #### S CAN CBC, CMP #### [facility] [address] [place] [address] [place] #### RA, MIKKI #### [facility] , Bilirubin.total [Mass/volume ] in Serum or PlasmaOrdered By: Carlin Bekah on 04-08-2024 Bilirubin [Mass/Vol] 0.4 mg/dL Normal 0.3-1.0 [facility] Comment on above: Performed By: #### S CAN CBC, CMP #### [facility] [address] [place] [address] [place] #### RA, MIKKI #### [facility] , Calcium [Mass/volume] in Ser um or PlasmaOrdered By: Carlin Godfrey on 04-08-2024 Calcium [Mass/Vol] 8.5 mg/dL Low 8.6-10.3 [facility] Comment on above: Performed By: #### S CAN CBC, CMP #### [facility] [address] [place] [address] [place] #### RA, MIKKI #### [facility] , Carbon dioxide, total [Moles /volume] in Serum or PlasmaOrdered By: Carlin Bekah on 04-08-2024 CO2 [Moles/Vol] 25.5 mmol/L Normal 21.0-31.0 [facility] Comment on above: Performed By: #### S CAN CBC, CMP #### [facility] [address] [place] [address] [place] #### RA, MIKKI #### [facility] , Chloride [Moles/volume] in S yin or PlasmaOrdered By: Carlinkecai Godfrey on 04-08-2024 Chloride [Moles/Vol] 105 mmol/L Normal 98-107 [facility] Comment on above: Performed By: #### S CAN CBC, CMP #### [facility] [address] [place] [address] [place] #### RA, MIKKI #### [facility] , Comprehensive Metabolic Pane anneliese 04-08-2024 Albumin [Mass/Vol] 3.1 g/dL Low 3.5-5.7 [facility] Comment on above: Performed By: #### S CAN CBC, CMP #### [place] [address] [place] #### RA, MIKKI #### [facility] , Creatinine Clr Calc Pharmacy 58.98 Normal [facility] Comment on above: Result Comment: PERF ORMED BY: [place] [address] PATHOLOGIST HEAD CONCIERGE EVAN REYES M.D. Performed By: #### S CAN CBC, CMP #### [address] #### RA, MIKKI #### [facility] , GFR/1.73 sq M.predicted MDRD (S/P/Bld) [Vol rate/Area] mL/min/{1.73_m2} Normal [facility] Comment on above: Performed By: #### S CAN CBC, CMP #### [facility] [address] [place] [address] [place] #### RA, MIKKI #### [facility] , Creatinine [Mass/volume] in Serum or PlasmaOrdered By: Carlin Godfrey on 04-08-2024 Creatinine [Mass/Vol] 0.81 mg/dL Normal 0.60-1.[address] [facility] Comment on above: Performed By: #### S CAN CBC, CMP #### [place] [address] [place] #### RA, MIKKI #### [facility] , Erythrocyte distribution wid th [Ratio] by Automated countOrdered By: Carlin Godfrey on 04-08-2024 Erythrocyte distribution width (RBC) [Ratio] 14.0 % Normal 11.9-15.3 [facility] Comment on above: Performed By: #### S CAN CBC, CMP #### [place] [address] [place] #### RA, MIKKI #### [facility] , Erythrocytes [#/volume] in B lood by Automated countOrdered By: Carlin Bekah on 04-08-2024 RBC (Bld) [#/Vol] 4.18 10*6/uL Normal 3.60-5.00 [facility] Comment on above: Performed By: #### S CAN CBC, CMP #### [place] [address] [place] #### RA, MIKKI #### [facility] , Glucose [Mass/volume] in Ser um or PlasmaOrdered By: Carlin Godfrey on 04-08-2024 Glucose [Mass/Vol] 86 mg/dL Normal 70-100 [facility] Comment on above: ADA recommended refe rence rangeRandom Glucose Reference Range is dependent on time and content of last meal. Glucose of more than 200 mg/dL in a nonstressed, ambulatory subject supports the diagnosis of Diabetes Mellitus. Result Comment: [place] Glucose Reference Range is dependent on time and content of last meal. Glucose of more than 200 mg/dL in a nonstressed, ambulatory subject supports the diagnosis of Diabetes Mellitus. ADA recommended reference range Performed By: #### S CAN CBC, CMP #### [place] [address] [place] #### RA, MIKKI #### [facility] , Hematocrit [Volume Fraction] of Blood by Automated countOrdered By: Carlin Godfrey on 04-08-2024 Hematocrit (Bld) [Volume fraction] 37.1 % Normal 34.0-46.4 [facility] Comment on above: Performed By: #### S CAN CBC, CMP #### [place] [address] [place] #### RA, MIKKI #### [facility] , Hemoglobin [Mass/volume] in BloodOrdered By: Carlin Godfrey on 04-08-2024 Hemoglobin (Bld) [Mass/Vol] 12.5 g/dL Normal 11.8-15.4 [facility] Comment on above: Performed By: #### S CAN CBC, CMP #### [facility] [address] [place] [address] [place] #### RA, MIKKI #### [facility] , Leukocytes [#/volume] correc cal for nucleated erythrocytes in Blood by Automated counOrdered By: Carlin Godfrey on 04-08-2024 WBC corrected for nucl RBC Auto (Bld) [#/Vol] 17.0 10*3/uL High 3.8-11.6 [facility] Leukocytes [#/volume] in Blo od by Automated countOrdered By: Carlin Godfrey on 04-08-2024 WBC (Bld) [#/Vol] 17.0 10*3/uL High 3.8-11.6 [facility] Comment on above: Performed By: #### S CAN CBC, CMP #### [facility] [address] [place] [address] [place] #### RA, MIKKI #### [facility] , Lymphocytes [#/volume] in Bl ood by Automated countOrdered By: Carlin Godfrey on 04-08-2024 Lymphocytes (Bld) [#/Vol] 2.7 10*3/uL Normal 1.00-4.8 [facility] Comment on above: Performed By: #### S CAN CBC, CMP #### [facility] [address] [place] [address] [place] #### RA, MIKKI #### [facility] , Lymphocytes/100 leukocytes i n Blood by Automated countOrdered By: Carlin Godfrey on 04-08-2024 Lymphocytes/100 WBC (Bld) 15.7 % Normal . [facility] Comment on above: Performed By: #### S CAN CBC, CMP #### [facility] [address] [place] [address] [place] #### RA, MIKKI #### [facility] , MCH [Entitic mass] by Automa cal countOrdered By: Carlin Godfrey on 04-08-2024 MCH (RBC) [Entitic mass] 29.9 pg Normal 24.7-34.3 [facility] Comment on above: Performed By: #### S CAN CBC, CMP #### [facility] [address] [place] [address] [place] #### RA, MIKKI #### [facility] , MCHC Auto (RBC) [Mass/Vol]Or dered By: Carlin Godfrey on 04-08-2024 MCHC (RBC) [Mass/Vol] 33.7 g/dL 32.0-35.[address] [facility] MCV [Entitic volume] by Auto mated countOrdered By: Carlin Godfrey on 04-08-2024 MCV (RBC) [Entitic vol] 88.9 fL Normal 80-100 [facility] Comment on above: Performed By: #### S CAN CBC, CMP #### [facility] [address] [place] [address] [place] #### RA, MIKKI #### [facility] , Monocyte distribution width [Entitic volume] in Blood by AutomatedOrdered By: Carlin Godfrey on 04-08-2024 Monocyte distribution width Auto (Bld) [Entitic vol] 23.59 % High 0.00-20.00 [facility] Comment on above: For adults in ED, MD W > 20.0 may be associated with a higher risk of sepsis during the first 12 hrs of hospital admission Neutrophils [#/volume] in Bl ood by Automated countOrdered By: Carlin Godfrey on 04-08-2024 Neutrophils (Bld) [#/Vol] 6.2 10*3/uL Normal 1.8-7.7 [facility] Comment on above: Performed By: #### S CAN CBC, CMP #### [facility] [address] [place] [address] [place] #### RA, MIKKI #### [facility] , No Panel InformationOrdered By: Carlin Godfrey on 04-08-2024 Estimated GFR (CKD-EPI) > 60.0 mL/Min [facility] Creatinine Clearance (Chem 58.98 [facility] Nucleated erythrocytes [Pres ence] in Blood by Automated countOrdered By: Carlin Godfrey on 04-08-2024 Nucleated RBC Auto Ql (Bld) 0.1 /100{WBC} 0-0.5 [facility] Platelet adequacy [Presence] in Blood by Light microscopyOrdered By: Carlin Godfrey on 04-08-2024 Platelets LM Ql (Bld) Normal Normal [facility] Platelet mean volume [Entiti c volume] in Blood by Automated countOrdered By: Carlin Godfrey on 04-08-2024 Platelet mean volume (Bld) [Entitic vol] 8.2 fL Normal 6.3-10.7 [facility] Comment on above: Performed By: #### S CAN CBC, CMP #### [address] #### RA, MIKKI #### [facility] , Platelet morphology finding [Identifier] in BloodOrdered By: Carlin Godfrey on 04-08-2024 Platelet morphology finding Nom (Bld) Normal Normal [facility] Platelets [#/volume] in Bloo d by Automated countOrdered By: Carlin Godfrey on 04-08-2024 Platelets (Bld) [#/Vol] 381 10*3/uL Normal 150-450 [facility] Comment on above: Performed By: #### S CAN CBC, CMP #### [facility] [address] [place] [address] [place] #### RA, MIKKI #### [facility] , Potassium [Moles/volume] in Serum or PlasmaOrdered By: Carlin Godfrey on 04-08-2024 Potassium [Moles/Vol] 3.4 mmol/L Low 3.5-5.[address] [facility] Comment on above: Performed By: #### S CAN CBC, CMP #### [facility] [address] [place] [address] [place] #### RA, MIKKI #### [facility] , Protein [Mass/volume] in Ser um or PlasmaOrdered By: Carlin Godfrey on 04-08-2024 Protein [Mass/Vol] 5.6 g/dL Low 6.4-8.9 [facility] Comment on above: Performed By: #### S CAN CBC, CMP #### [place] [address] [place] #### RA, MIKKI #### [facility] , RBC morphologyOrdered By: Yung Godfrey on 04-08-2024 RBC morphology finding Nom (Bld) Normal Normal Normal [facility] Comment on above: Performed By: #### S CAN CBC, CMP #### [place] [address] [place] #### RA, MIKKI #### [facility] , Rheumatoid Factoron 04-08-20 Rheumatoid Factor <10.0 Normal <14.0 [facility] Comment on above: Result Comment: Perf ormed at: - [facility] [address] [id number] Vice President Quality: Lj Solano PhD, Phone: [phone] Performed By: #### S CAN CBC, CMP #### [place] [address] [place] #### RA, MIKKI #### [facility] , Scan and CBCon 04-08-2024 Mean Corpuscular HGB Conc 33.7 g/dL Normal 32.0-35.0 [facility] Comment on above: Performed By: #### S CAN CBC, CMP #### [facility] [address] [place] [address] [place] #### RA, MIKKI #### [facility] , Monocytes/100 WBC (Bld) 23.59 % High 0.00-20.00 [facility] Comment on above: Result Comment: For adults in ED, MDW > 20.0 may be associated with a higher risk of sepsis during the first 12 hrs of hospital admission Performed By: #### S CAN CBC, CMP #### [place] [address] [place] #### RA, MIKKI #### [facility] , NRBC% 0.1 /100{WBC} Normal 0-0.5 [facility] Comment on above: Performed By: #### S CAN CBC, CMP #### [place] [address] [place] #### RA, MIKKI #### [facility] , Platelet Estimate Normal Normal Normal [facility] Comment on above: Performed By: #### S CAN CBC, CMP #### [place] [address] [place] #### RA, MIKKI #### [facility] , Platelet Morphology Normal Normal Normal [facility] Comment on above: Result Comment: PERF ORMED BY: [place] [address] PATHOLOGIST HEAD CONCIERGE EVAN REYES M.D. Performed By: #### S CAN CBC, CMP #### [place] [address] [place] #### RA, MIKKI #### [facility] , Serum globulin measurement b y calculation (mass/volume)Ordered By: Carlin Godfrey on 04-08-2024 Globulin (S) [Mass/Vol] 2.5 g/dL Normal [facility] Comment on above: Performed By: #### S CAN CBC, CMP #### [facility] [address] [place] [address] [place] #### RA, MIKKI #### [facility] , Serum or plasma albumin/glob ulin mass ratioOrdered By: Carlin Godfrey on 04-08-2024 Albumin/Globulin [Mass ratio] 1.2 {ratio} Normal [facility] Comment on above: Performed By: #### S CAN CBC, CMP #### [place] [address] [place] #### RA, MIKKI #### [facility] , Serum or plasma anion gap de terminationOrdered By: Carlin Godfrey on 04-08-2024 Anion gap [Moles/Vol] 10.9 mmol/L Normal 6.0-15.0 [facility] Comment on above: Performed By: #### S CAN CBC, CMP #### [facility] [address] [place] [address] #### RA, MIKKI #### [facility] , Sodium [Moles/volume] in Ser um or PlasmaOrdered By: Carlin Godfrey on 04-08-2024 Sodium [Moles/Vol] 138 mmol/L Normal 136-145 [facility] Comment on above: Performed By: #### S CAN CBC, CMP #### [facility] [address] [place] [address] [place] #### RA, MIKKI #### [facility] , Urea nitrogen [Mass/volume] in Serum or PlasmaOrdered By: Carlin Godfrey on 04-08-2024 Urea nitrogen [Mass/Vol] 17 mg/dL Normal 7-25 [facility] Comment on above: Performed By: #### S CAN CBC, CMP #### [facility] [address] [place] [address] [place] #### RA, MIKKI #### [facility] , ECG 12 lead ECGon 04-07-2024 ECG 12 lead ECG [facility] [place] [address] [place] [address] Electrocardiograph Report Signed Patient: Mirian Corrales MR#: [id number] : 1955 Acct:[id number] Age/Sex: 68 / F ADM Date: 04/07/24 Loc: ER Room: Type: [facility] ER Attending Dr: Ordering Provider: Carlin Godfrey DO Date of Service: 04/07/24 ECG/ECG 12 lead ECG: Skin/Abscess/Foreign Body Copies to: Test Reason : Blood Pressure : */* mmHG Vent. Rate : 82 BPM Atrial Rate : 82 BPM P-R Int : 122 ms QRS Dur : 76 ms QT Int : 386 ms P-R-T Axes : 86 84 53 degrees QTcB Int : 450 ms Sinus rhythm with premature atrial complexes Otherwise normal ECG No previous ECGs available Confirmed by ROSA MARIA FIELDS MD ([id number]) on 04/11/2024 3:46:36 PM Referred By: Electronically Signed By: ROSA MARIA FIELDS MD Transcribed By: MUS Signed By Rosa Maria Fields MD 0 04/11/24 1546 Normal [facility] Alanine aminotransferase [En zymatic activity/volume] in Serum or PlasmaOrdered By: Lisandro Kovacs on 04-04-2024 ALT [Catalytic activity/Vol] 11 U/L Normal 7-52 [facility] Comment on above: Performed By: #### C RP, DIFF CBC, ESR, CMP ####[facility] [id number] Albumin [Mass/volume] in Ser um or Plasma by Bromocresol green (BCG) dye binding methoOrdered By: Lisandro Kovacs on 04-04-2024 Albumin BCG dye [Mass/Vol] 3.5 g/dL 3.5-5.7 [facility] Alkaline phosphatase [Enzyma tic activity/volume] in Serum or PlasmaOrdered By: Lisandro Kovacs on 04-04-2024 ALP [Catalytic activity/Vol] 72 U/L Normal 34-104 [facility] Comment on above: Performed By: #### C RP, DIFF CBC, ESR, CMP ####[facility] [id number] [place] [address] [place] Anisocytosis [Presence] in B lood by Light microscopyOrdered By: Lisandro Kovacs on 04-04-2024 Anisocytosis Ql (Bld) Slight Normal [facility] Comment on above: Performed By: #### C RP, DIFF CBC, ESR, CMP ####[facility] [address] [place] [id number] [place] Aspartate aminotransferase [ Enzymatic activity/volume] in Serum or PlasmaOrdered By: Lisandro Kovacs on 04-04-2024 AST [Catalytic activity/Vol] 18 U/L Normal 13-39 [facility] Comment on above: Performed By: #### C RP, DIFF CBC, ESR, CMP ####[facility] [id number] [place] [id number] [facility] BNP ser/plasOrdered By: Dominique rodriguesdoreen Lockhartzafar on 04-04-2024 Natriuretic peptide B (Bld) [Mass/Vol] 60.0 pg/mL Normal 5-100 [facility] Comment on above: Result Comment: PERF ORMED BY: [place] [address] PATHOLOGIST HEAD CONCIERGE EVAN REYES M.D. Performed By: #### B H[employer]MING EQUIPMENT OPERATOR #### [address] Basophils Auto (Bld) [#/Vol] Ordered By: Lisandro Kovacs on 04-04-2024 Basophils (Bld) [#/Vol] N/A [facility] Basophils/100 WBC Auto (Bld) Ordered By: Lisandro Kovacs on 04-04-2024 Basophils/100 WBC (Bld) N/A [facility] Bilirubin.total [Mass/volume ] in Serum or PlasmaOrdered By: Lisandro Kovacs on 04-04-2024 Bilirubin [Mass/Vol] 0.5 mg/dL Normal 0.3-1.0 [facility] Comment on above: Performed By: #### C RP, DIFF CBC, ESR, CMP ####[address] Blood Cultureon 04-04-2024 Bacteria identified Cx Nom (Bld) NO GROWTH 5 DAYS PERFORMED BY: [place] [address] PATHOLOGIST HEAD CONCIERGE EVAN REYES M.D. Normal [facility] Comment on above: Performed By: #### C UBLD #### [address] Bacteria identified Cx Nom (Bld) NO GROWTH 5 DAYS PERFORMED BY: [place] [address] PATHOLOGIST HEAD CONCIERGE EVAN REYES M.D. Normal [facility] Comment on above: Performed By: #### C UBLD #### [address] [place] [address] [place] C reactive protein [Mass/vol ume] in Serum or PlasmaOrdered By: Lisandro Kovacs on 04-04-2024 CRP [Mass/Vol] < 0.5 mg/dL 0.0-0.5 [facility] C-Reactive Proteinon 024 CRP [Mass/Vol] mg/L Normal 0.0-0.5 [facility] Comment on above: Result Comment: PERF ORMED BY: [facility] [address] [id number] PATHOLOGIST HEAD CONCIERGE EVAN REYES M.D. Performed By: #### C RP, DIFF CBC, ESR, CMP ####[facility] [place] [id number] [facility] Calcium [Mass/volume] in Ser um or PlasmaOrdered By: Lisandro Kovacs on 04-04-2024 Calcium [Mass/Vol] 8.7 mg/dL Normal 8.6-10.3 [facility] Comment on above: Performed By: #### C RP, DIFF CBC, ESR, CMP ####[facility] [place] [id number] [facility] Carbon dioxide, total [Moles /volume] in Serum or PlasmaOrdered By: Lisandro Kovacs on 04-04-2024 CO2 [Moles/Vol] 25.8 mmol/L Normal 21.0-31.0 [facility] Comment on above: Performed By: #### C RP, DIFF CBC, ESR, CMP ####[place] [id number] [place] Chloride [Moles/volume] in S yin or PlasmaOrdered By: Lisandro Kovacs on 04-04-2024 Chloride [Moles/Vol] 101 mmol/L Normal 98-107 [facility] Comment on above: Performed By: #### C RP, DIFF CBC, ESR, CMP ####[place] [address] [place] [id number] [facility] Comprehensive Metabolic Pane anneliese 04-04-2024 Albumin [Mass/Vol] 3.5 g/dL Normal 3.5-5.7 [facility] Comment on above: Performed By: #### C RP, DIFF CBC, ESR, CMP ####[address] Creatinine Clr Calc Pharmacy 56.50 Normal [facility] Comment on above: Performed By: #### C RP, DIFF CBC, ESR, CMP ####[address] GFR/1.73 sq M.predicted MDRD (S/P/Bld) [Vol rate/Area] mL/min/{1.73_m2} Normal [facility] Comment on above: Performed By: #### C RP, DIFF CBC, ESR, CMP ####[address] Creatinine [Mass/volume] in Serum or PlasmaOrdered By: Lisandro Kovacs on 04-04-2024 Creatinine [Mass/Vol] 0.85 mg/dL Normal 0.60-1.[address] [facility] Comment on above: Performed By: #### C RP, DIFF CBC, ESR, CMP ####[address] Diff and CBCon 04-04-2024 Mean Corpuscular HGB Conc 33.9 g/dL Normal 32.0-35.0 [facility] Comment on above: Performed By: #### C RP, DIFF CBC, ESR, CMP ####[address] Monocytes/100 WBC (Bld) 29.96 % High 0.00-20.00 [facility] Comment on above: Result Comment: For adults in ED, MDW > 20.0 may be associated with a higher risk of sepsis during the first 12 hrs of hospital admission Performed By: #### C RP, DIFF CBC, ESR, CMP ####[address] Platelet Estimate Normal Normal Normal [facility] Comment on above: Performed By: #### C RP, DIFF CBC, ESR, CMP ####[place] [address] Platelet Morphology Normal Normal Normal [facility] Comment on above: Performed By: #### C RP, DIFF CBC, ESR, CMP ####[facility] [place] [id number] [facility] Poikilocytosis Slight Normal [facility] Comment on above: Performed By: #### C RP, DIFF CBC, ESR, CMP ####[place] [address] [place] [id number] [facility] Eosinophils Auto (Bld) [#/Vo l]Ordered By: Lisandro Kovacs on 04-04-2024 Eosinophils (Bld) [#/Vol] N/A [facility] Eosinophils/100 WBC Auto (Bl d)Ordered By: Lisandro Kovacs on 04-04-2024 Eosinophils/100 WBC (Bld) N/A [facility] Eosinophils/100 leukocytes i n Blood by Manual countOrdered By: Lisandro Kovacs on 04-04-2024 Eosinophils/100 WBC (Bld) 33 % High 1-3 [facility] Comment on above: Absolute eosinophili a is commonly due to reactive causes, such as allergic reactions, drug therapy, or infections. Eosinophilia may also be due to malignancies including chronic myeloproliferative disorders. If eosinophilia remains persistent and unexplained for greater than 3 months, recommend additional hematologic work-up/hematology consultation, and/or FISH studies for PDGFRA, PDGFRB, and FGFR1 translocations as clinically indicated. Result Comment: Abso lute eosinophilia is commonly due to reactive causes, such as allergic reactions, drug therapy, or infections. Eosinophilia may also be due to malignancies including chronic myeloproliferative disorders. If eosinophilia remains persistent and unexplained for greater than 3 months, recommend additional hematologic work-up/hematology consultation, and/or FISH studies for PDGFRA, PDGFRB, and FGFR1 translocations as clinically indicated. Performed By: #### C RP, DIFF CBC, ESR, CMP ####[facility] [place] [id number] [facility] Erythrocyte Sedimentation Ra natalie 04-04-2024 ESR (Bld) [Velocity] 8 mm/h Normal 0-29 [facility] Comment on above: Result Comment: PERF ORMED BY: [facility] [address] [place] [address] PATHOLOGIST HEAD CONCIERGE EVAN REYES M.D. Performed By: #### C RP, DIFF CBC, ESR, CMP ####[place] [id number] [address] Erythrocyte distribution wid th [Ratio] by Automated countOrdered By: Lisandro Kovacs on 04-04-2024 Erythrocyte distribution width (RBC) [Ratio] 13.7 % Normal 11.9-15.3 [facility] Comment on above: Performed By: #### C RP, DIFF CBC, ESR, CMP ####[address] Erythrocyte sedimentation ra te by Photometric methodOrdered By: Lisandro Kovacs on 04-04-2024 ESR Photometric method (Bld) [Velocity] 8 mm/hr 0-29 [facility] Erythrocytes [#/volume] in B lood by Automated countOrdered By: Lisandro Kovacs on 04-04-2024 RBC (Bld) [#/Vol] 4.77 10*6/uL Normal 3.60-5.00 [facility] Comment on above: Performed By: #### C RP, DIFF CBC, ESR, CMP ####[address] Glucose [Mass/volume] in Ser um or PlasmaOrdered By: Lisandro Kovacs on 04-04-2024 Glucose [Mass/Vol] 100 mg/dL Normal 70-100 [facility] Comment on above: ADA recommended refe rence rangeRandom Glucose Reference Range is dependent on time and content of last meal. Glucose of more than 200 mg/dL in a nonstressed, ambulatory subject supports the diagnosis of Diabetes Mellitus. Result Comment: [place] Glucose Reference Range is dependent on time and content of last meal. Glucose of more than 200 mg/dL in a nonstressed, ambulatory subject supports the diagnosis of Diabetes Mellitus. ADA recommended reference range Performed By: #### C RP, DIFF CBC, ESR, CMP ####[place] [address] [place] Hematocrit [Volume Fraction] of Blood by Automated countOrdered By: Lisandro Kovacs on 04-04-2024 Hematocrit (Bld) [Volume fraction] 42.6 % Normal 34.0-46.4 [facility] Comment on above: Performed By: #### C RP, DIFF CBC, ESR, CMP ####[facility] [id number] Hemoglobin [Mass/volume] in BloodOrdered By: Lisandro Kovacs on 04-04-2024 Hemoglobin (Bld) [Mass/Vol] 14.4 g/dL Normal 11.8-15.4 [facility] Comment on above: Performed By: #### C RP, DIFF CBC, ESR, CMP ####[place] [id number] [address] Leukocytes [#/volume] correc cal for nucleated erythrocytes in Blood by Automated counOrdered By: Lisandro Kovacs on 04-04-2024 WBC corrected for nucl RBC Auto (Bld) [#/Vol] 11.7 10*3/uL High 3.8-11.6 [facility] Leukocytes [#/volume] in Blo od by Automated countOrdered By: Lisandro Kovacs on 04-04-2024 WBC (Bld) [#/Vol] 11.7 10*3/uL High 3.8-11.6 [facility] Comment on above: Performed By: #### C RP, DIFF CBC, ESR, CMP ####[address] Lymphocytes Auto (Bld) [#/Vo l]Ordered By: Lisandro Kovacs on 04-04-2024 Lymphocytes (Bld) [#/Vol] N/A [facility] Lymphocytes/100 WBC Auto (Bl d)Ordered By: Lisandro Kovacs on 04-04-2024 Lymphocytes/100 WBC (Bld) N/A [facility] Lymphocytes/100 leukocytes i n Blood by Manual countOrdered By: Lisandro Kovacs on 04-04-2024 Lymphocytes/100 WBC (Bld) 15 % Low 18-42 [facility] Comment on above: Performed By: #### C RP, DIFF CBC, ESR, CMP ####[address] MCH [Entitic mass] by Automa cal countOrdered By: Lisandro Kovacs on 04-04-2024 MCH (RBC) [Entitic mass] 30.3 pg Normal 24.7-34.3 [facility] Comment on above: Performed By: #### C RP, DIFF CBC, ESR, CMP ####[address] MCHC Auto (RBC) [Mass/Vol]Or dered By: Lisandro Kovacs on 04-04-2024 MCHC (RBC) [Mass/Vol] 33.9 g/dL 32.0-35.[address] [facility] MCV [Entitic volume] by Auto mated countOrdered By: Lisandro Kovacs on 04-04-2024 MCV (RBC) [Entitic vol] 89.3 fL Normal 80-100 [facility] Comment on above: Performed By: #### C RP, DIFF CBC, ESR, CMP ####[address] Manual blood segmented neutr ophils/100 leukocytesOrdered By: Lisandro Kovacs on 04-04-2024 Segmented neutrophils/100 WBC (Bld) 42 % Low 50-70 [facility] Comment on above: Performed By: #### C RP, DIFF CBC, ESR, CMP ####[address] Monocyte distribution width [Entitic volume] in Blood by AutomatedOrdered By: Lisandro Kovacs on 04-04-2024 Monocyte distribution width Auto (Bld) [Entitic vol] 29.96 % High 0.00-20.00 [facility] Comment on above: For adults in ED, MD W > 20.0 may be associated with a higher risk of sepsis during the first 12 hrs of hospital admission Monocytes Auto (Bld) [#/Vol] Ordered By: Lisandro Kovacs on 04-04-2024 Monocytes (Bld) [#/Vol] N/A [facility] Monocytes/100 WBC Auto (Bld) Ordered By: Lisandro Kovacs on 04-04-2024 Monocytes/100 WBC (Bld) N/A [facility] Monocytes/100 leukocytes in Blood by Manual countOrdered By: Lisandro Kovacs on 04-04-2024 Monocytes/100 WBC (Bld) 10 % Normal 2-11 [facility] Comment on above: Performed By: #### C RP, DIFF CBC, ESR, CMP ####[facility] [id number] [place] [address] [facility] Neutrophils Auto (Bld) [#/Vo l]Ordered By: Lisandro Kovacs on 04-04-2024 Neutrophils (Bld) [#/Vol] N/A [facility] Neutrophils/100 WBC Auto (Bl d)Ordered By: Lisandro Kovacs on 04-04-2024 Neutrophils/100 WBC (Bld) N/A [facility] No Panel InformationOrdered By: Lisandro Kovacs on 04-04-2024 Estimated GFR (CKD-EPI) > 60.0 mL/Min [facility] Creatinine Clearance (Chem 56.50 [facility] Nucleated erythrocytes [Pres ence] in Blood by Automated countOrdered By: Lisandro Kovacs on 04-04-2024 Nucleated RBC Auto Ql (Bld) N/A [facility] Platelet adequacy [Presence] in Blood by Light microscopyOrdered By: Lisandro Kovacs on 04-04-2024 Platelets LM Ql (Bld) Normal Normal [facility] Platelet mean volume [Entiti c volume] in Blood by Automated countOrdered By: Lisandro Kovacs on 04-04-2024 Platelet mean volume (Bld) [Entitic vol] 8.6 fL Normal 6.3-10.7 [facility] Comment on above: Performed By: #### C RP, DIFF CBC, ESR, CMP ####[facility] [id number] [place] [id number] [facility] Platelet morphology finding [Identifier] in BloodOrdered By: Lisandro Kovacs on 04-04-2024 Platelet morphology finding Nom (Bld) Normal Normal [facility] Platelets [#/volume] in Bloo d by Automated countOrdered By: Lisandro Kovacs on 04-04-2024 Platelets (Bld) [#/Vol] 369 10*3/uL Normal 150-450 [facility] Comment on above: Performed By: #### C RP, DIFF CBC, ESR, CMP ####[place] [id number] [facility] Poikilocytosis [Presence] in Blood by Light microscopyOrdered By: Lisandro Kovacs on 04-04-2024 Poikilocytosis LM Ql (Bld) Slight [facility] Potassium [Moles/volume] in Serum or PlasmaOrdered By: Lisandro Kovacs on 04-04-2024 Potassium [Moles/Vol] 4.0 mmol/L Normal 3.5-5.[address] [facility] Comment on above: Performed By: #### C RP, DIFF CBC, ESR, CMP ####[address] Protein [Mass/volume] in Ser um or PlasmaOrdered By: Lisandro Kovacs on 04-04-2024 Protein [Mass/Vol] 6.5 g/dL Normal 6.4-8.9 [facility] Comment on above: Performed By: #### C RP, DIFF CBC, ESR, CMP ####[place] [id number] [facility] Quick Strepon 04-04-2024 Quick Strep Streptococcus pyogen es Ag [Presence] in Throat by Rapid immunoassay Negative for Group A Strep Antigen Note 1 NOTE 2 Results are those of a screening test. NOTE 3 If clinically indicated please order a culture. NOTE 4 NOTE 5 Reference range = Negative PERFORMED BY: [facility] [address] [place] [id number] PATHOLOGIST HEAD CONCIERGE EVAN REYES M.D. Normal [facility] Comment on above: Performed By: #### Q S ####[address] [address] [place] RBC morphologyOrdered By: Corey Kovacs on 04-04-2024 RBC morphology finding Nom (Bld) N/A [facility] Serum globulin measurement b y calculation (mass/volume)Ordered By: Lisandro Kovacs on 04-04-2024 Globulin (S) [Mass/Vol] 3.0 g/dL Normal [facility] Comment on above: Performed By: #### C RP, DIFF CBC, ESR, CMP ####[facility] [id number] [place] [address] Serum or plasma albumin/glob ulin mass ratioOrdered By: Lisandro Kovacs on 04-04-2024 Albumin/Globulin [Mass ratio] 1.2 {ratio} Normal [facility] Comment on above: Performed By: #### C RP, DIFF CBC, ESR, CMP ####[address] Serum or plasma anion gap de terminationOrdered By: Lisandro Kovacs on 04-04-2024 Anion gap [Moles/Vol] 12.2 mmol/L Normal 6.0-15.0 [facility] Comment on above: Performed By: #### C RP, DIFF CBC, ESR, CMP ####[address] Sodium [Moles/volume] in Ser um or PlasmaOrdered By: Lisandro Kovacs on 04-04-2024 Sodium [Moles/Vol] 135 mmol/L Low 136-145 [facility] Comment on above: Performed By: #### C RP, DIFF CBC, ESR, CMP ####[facility] [id number] [place] [address] Streptococcus pyogenes antig en detectionOrdered By: Lisandro Kovacs on 04-04-2024 S. pyogenes Ag Ql (Unsp spec) [facility] Urea nitrogen [Mass/volume] in Serum or PlasmaOrdered By: Lisandro Kovacs on 04-04-2024 Urea nitrogen [Mass/Vol] 12 mg/dL Normal 7-25 [facility] Comment on above: Performed By: #### C RP, DIFF CBC, ESR, CMP ####[facility] Aqg[address] [place] [address] [facility] XR chest 2V*on 04-04-2024 XR chest 2V* [facility] [place] [address] XRay Report Signed Patient: Mirian Corrales MR#: [id number] : 1955 Acct:[id number] Age/Sex: 68 / F ADM Date: 04/04/24 Loc: ER Room: Type: [facility] ER Attending Dr: Copies to: Lisandro Kovacs APRN Ordering Provider: Lisandro Kovacs APRN Date of Service: 04/04/24 XR/XR chest 2V*: Skin/Abscess/Foreign Body PA AND LATERAL CHEST: CLINICAL HISTORY: Generalized body rash. COMPARISON: None There is no focal parenchymal consolidation, effusion or pneumothorax. The cardiac, hilar and mediastinal silhouettes are within normal limits. There is no vascular congestion. The visualized bony thorax is intact. XR/XR chest 2V* IMPRESSION: NO ACUTE CARDIOPULMONARY ABNORMALITY. Impression dictated by: Megan Phan M.D.04/04/2024 7:01 PM Dictation Location: [place] [address] Transcribed By: [facility] 04/04/241900 Dictated By: Megan Phan MD 04/04/241826 Signed By: 04/04/241900 Normal [facility] MM screening mammo BI w/CADo n 11-30-2023 MM screening mammo BI w/CAD [facility] Main [place] [id number] Mammography Report Signed Patient: Mirian Corrales MR#: [id number] : 1955 Acct:[id number] Age/Sex: 68 / F ADM Date: 11/30/23 Loc: [place] Room: Type: [facility] CLI Attending Dr: Referral Self Copies to: Benedicto Stanley,DO SELF,REFERRAL Ordering Provider: SELF,REFERRAL Date of [...] Michael Jr., D.O.11/30/2023 3:26 PM Dictation Location: [facility] Transcribed By: JULIOCESAR 11/30/23 1526 Dictated By: Toribio Michael Jr, DO 11/30/23 1525 Signed By: 11/30/23 1526 Normal [facility] Cytology Cervical or vaginal smear or scraping studyOrdered By: Catie Gibson on 07-20-2023 [facility] Albumin [Mass/volume] in Ser um or PlasmaOrdered By: Henrique [place] on 09-18-2022 Albumin [Mass/Vol] 4.0 g/dL 3.2-5.5 [facility] Alkaline phosphatase [Enzyma tic activity/volume] in Serum or PlasmaOrdered By: Henrique [place] on 09-18-2022 ALP [Catalytic activity/Vol] 44 U/L 32-92 [facility] Aspartate aminotransferase [ Enzymatic activity/volume] in Serum or PlasmaOrdered By: Henrique [place] on 09-18-2022 AST [Catalytic activity/Vol] 23 U/L 10-42 [facility] Bilirubin.direct [Mass/volum e] in Serum or PlasmaOrdered By: Henrique [place] on 09-18-2022 Bilirubin.direct [Mass/Vol] mg/dL 0.0-0.4 [facility] Bilirubin.total [Mass/volume ] in Serum or PlasmaOrdered By: Henrique [place] on 09-18-2022 Bilirubin [Mass/Vol] 0.4 mg/dL 0.3-1.2 [facility] Globulin Calc (S) [Mass/Vol] Ordered By: Henrique [place] on 09-18-2022 Globulin (S) [Mass/Vol] 2.7 g/dL [facility] Protein [Mass/volume] in Ser um or PlasmaOrdered By: Henrique [place] on 09-18-2022 Protein [Mass/Vol] 6.7 g/dL 6.1-7.9 [facility] Serum or plasma alanine steve otransferase measurement without P-5'-P (enzymatic activiOrdered By: Henrique [place] on 09-18-2022 ALT No additional P-5'-P [Catalytic activity/Vol] 23 U/L 10-60 [facility] Serum or plasma albumin/glob ulin mass ratioOrdered By: Henrique [place] on 09-18-2022 Albumin/Globulin [Mass ratio] 1.5 {ratio} [facility] Serum or plasma non-glucuron idated bilirubin measurement (mass/volume)Ordered By: Henrique [place] on 09-18-2022 Bilirubin.indirect [Mass/Vol] [facility] Comment on above: Test not performed Initial Visit (Gastroenterol ogy)on 08-26-2022 Initial Visit (Gastroenterology) Diagnoses/Problems Assessed Abnormal radiographic examination (793.99) (R93.89) Orders Abnormal radiographic examination Hepatic Function Panel; Status:Active; Requested for:[id number]; Perform:Lab Services - Lab To Draw (Blood [...] 03/24/2022 : 1955 Gender:F Ordering : DR BENEDICTO LAN . Admission #: [id number] Family : Order #: [id number] CLICK HERE TO VIEW EXAM RADIOLOGY REPORT [...] breast cancer at age 35. LOCATION: The [facility] BREAST COMPOSITION: Heterogeneously dense,which may obscure small [...] PALPABLE LUMP SHOULD BE BIOPSIED. Dictated by: Radha Sabillon M.D. on 03/24/2022 at 14:28 Approved by: Radha Sabillon M.D. on 03/24/2022 at 14:41 Normal The [facility] US BREAST DICK LIMITEDon 07-0 US BREAST DICK LIMITED Patient: MIRIAN CORRALES Exam Date: 03/24/2022 : 1955 Gender:F Ordering : DR BENEDICTO LAN . Admission #: [id number] Family : Order #: [id number] CLICK HERE TO VIEW EXAM RADIOLOGY REPORT [...] breast cancer at age 35. LOCATION: The [facility] BREAST COMPOSITION: Heterogeneously dense,which may obscure small [...] PALPABLE LUMP SHOULD BE BIOPSIED. Dictated by: Radha Sabillon M.D. on 03/24/2022 at 14:28 Approved by: Radha Sabillon M.D. on 03/24/2022 at 14:41 Normal The [facility] XR DEXA BONE DENSITYon 03-24 XR [...] - High Fracture Risk Electronically authenticated by: RADHA SABILLON Date: 2022-03-24 17:39 [facility] PAP ACOG PANEL 2: 30 to 65on 03-19-[address] [facility] Comment on above: Performed By: #### 4 [id number] #### [facility] [address] [place] [address] Dr. Lilo Warren Age Gdln ACOG Testing Comment Normal [facility] Comment on above: Result Comment: <21 or >65 or no age provided Performed By: #### 4 [id number] #### [facility] [address] [place] [address] [address] Lilo Warren DIAGNOSIS: Comment [facility] Comment on above: Result Comment: NEGA TIVE FOR INTRAEPITHELIAL LESION OR MALIGNANCY. CELLULAR CHANGES ASSOCIATED WITH ATROPHY ARE PRESENT. Performed By: #### 4 [id number] #### [facility] [address] [place] [address] Dr. Lilo Warren Methodology: Comment [facility] Comment on above: Result Comment: This liquid based ThinPrep(R) pap test was screened with the use of an image guided system. Performed By: #### 4 [id number] #### [facility] [address] [place] [address] Dr. Lilo Warren Note: Comment [facility] Comment on above: Result Comment: The Pap smear is a screening test designed to aid in the detection of premalignant and malignant conditions of the uterine cervix. It is not a diagnostic procedure and should not be used as the sole means of detecting cervical cancer. Both false-positive and false-negative reports do occur. . Performed By: #### 4 [id number] #### [facility] [address] [place], [place] [address] Dr. Lilo Warren Performed by: Comment Normal [facility] Comment on above: Result Comment: Yg Smith, Joint Runner (ASCP) Performed By: #### 4 [id number] #### [facility] [address] [place], [place] [address] Dr. Lilo Warren Specimen adequacy: Comment Normal [facility] Comment on above: Result Comment: Sati sfactory for evaluation. Endocervical and/or squamous metaplastic cells (endocervical component) are present. Performed By: #### 4 [id number] #### [facility] [address] [place], [place] [address] Dr. Lilo Warren [facility] DIGITAL DIAGNOSTIC W OR WO CAD BILATERALon [...] Black Lane MD 05/07/19 Final result Normal [facility] 05-07-2019 1. No convincing mammographic or [...] the patient regarding the results. [facility], [place] EXAMINATION: BILATER AL DIGITAL DIAGNOSTIC [...] Mild cortical thickening of an axillary node. [facility] [place], [place] Rigoberto, pn Incoming Radiant Results From [employer] - 05/07/2019 3:26 PM EDT EXAMINATION: BILATERAL [...] sent to the patient regarding the results. [place], [place] US BREAST COMPLETE LEFTon US BREAST [...] Black Lane MD 05/07/19 Final result Normal [facility] US BREAST COMPLETE RIGHTon 0 05-07-2019 [...] Black Lane MD 05/07/19 Final result Normal [facility] DIGITAL SCREEN W OR WO C AD BILATERALon 04-10-2019 [facility] DIGITAL SCREEN W OR WO CAD BILATERAL [...] Susy Peterson MD 04/10/19 Final result Normal [facility] Surgical Pathologyon 019 Surgical Pathology (NOTE) [id number] [employer] [facility] ANATOMIC PATHOLOGY [address] [place] [id number] SURGICAL PATHOLOGY CONSULTATION Patient Name: MIRIAN CORRALES Rec: [id number] Path Number: [id number] Collected: 03/15/2019 Received: 03/16/2019 Reported: 03/17/2019 09:30 -- Diagnosis -- POLYP, COLORECTAL (SIGMOID): - BENIGN ADENOMATOUS POLYP (TUBULAR ADENOMA). Justo Walters M.D. Electronically Signed Out [facility]/03/17/2019 Clinical Information Pre-op Diagnosis: COLON CANCER SCREENING Operative Findings: SIGMOID COLON POLYP Operation Performed: COLONOSCOPY, POLYPECTOMY SNARE/COLD BIOPSY Source of Specimen 1: SIGMOID COLON POLYP Gross Description MIRIAN CORRALES SIGMOID COLON POLYP One jimenez-white tissue fragment, 1.8 x 0.6 x 0.1 cm. Entirely 1cs. rh tm Microscopic Description Microscopic examination performed. Normal [facility] Comment on above: Performed By: #### P PPVS #### [facility] [address] [place] [id number] Vice President Quality: Darryl Walters MD Vital Signs Date Time Vital Sign Value Performing Clinician Facility 07-24-2024 15:38-0500 Body height 167.6 cm [facility] Work Phone: [facility] 07-24-2024 15:38-0500 Body mass index (BMI) [Ratio] 18.4 kg/m2 [facility] Work Phone: [facility] 07-24-2024 15:38-0500 Body weight 51.71 kg [facility] Work Phone: [facility] 07-24-2024 15:38-0500 Diastolic blood pressure 72 mm[Hg] [facility] Work Phone: [facility] 07-24-2024 15:38-0500 Systolic blood pressure 130 mm[Hg] [facility] Work Phone: [facility] 04-08-2024 04:01-0400 Diastolic blood pressure 58 mm[Hg] DO Conner Vaschak Work Phone: [facility] 04-08-2024 04:01-0400 Heart rate 73 /min DO Conner Vaschak Work Phone: [facility] 04-08-2024 04:01-0400 Respiratory rate 18 /min DO Conner Vaschak Work Phone: [facility] 04-08-2024 04:01-0400 SaO2% (BldA) [Mass fraction] 99 % DO Conner Vaschak Work Phone: [facility] 04-08-2024 04:01-0400 Systolic blood pressure 114 mm[Hg] DO Conner Vaschak Work Phone: [facility] 04-07-2024 22:52-0400 Body temperature 97.8 [degF] DO Conner Vaschak Work Phone: [facility] 04-07-2024 21:25-0400 Body height 167.64 cm DO Conner Vaschak Work Phone: [facility] 04-07-2024 21:25-0400 Body weight 56.2 kg DO Conner Vaschak Work Phone: [facility] 04-04-2024 16:51-0400 Body height 167.64 cm DO Conner Vaschak Work Phone: [facility] 04-04-2024 16:51-0400 Body temperature 97.6 [degF] DO Conner Vaschak Work Phone: [facility] 04-04-2024 16:51-0400 Body weight 56.5 kg DO Conner Vaschak Work Phone: [facility] 04-04-2024 16:51-0400 Diastolic blood pressure 69 mm[Hg] DO Conner Vaschak Work Phone: [facility] 04-04-2024 16:51-0400 Heart rate 101 /min DO Conner Vaschak Work Phone: [facility] 04-04-2024 16:51-0400 Respiratory rate 20 /min DO Conner Vaschak Work Phone: [facility] 04-04-2024 16:51-0400 SaO2% (BldA) [Mass fraction] 100 % DO Conner Vaschak Work Phone: [facility] 04-04-2024 16:51-0400 Systolic blood pressure 120 mm[Hg] DO Conner Vaschak Work Phone: [facility] 03-25-2024 13:12-0400 Body height 167.64 cm DO Conner Vaschak Work Phone: [facility] 03-25-2024 13:12-0400 Body temperature 97.4 [degF] DO Conner Vaschak Work Phone: [facility] 03-25-2024 13:12-0400 Body weight 52.75 kg DO Conner Vaschak Work Phone: [facility] 03-25-2024 13:12-0400 Diastolic blood pressure 83 mm[Hg] DO Conner Vaschak Work Phone: [facility] 03-25-2024 13:12-0400 Heart rate 100 /min DO Conner Vaschak Work Phone: [facility] 03-25-2024 13:12-0400 Respiratory rate 20 /min DO Conner Vaschak Work Phone: [facility] 03-25-2024 13:12-0400 SaO2% (BldA) [Mass fraction] 98 % DO Conner Vaschak Work Phone: [facility] 03-25-2024 13:12-0400 Systolic blood pressure 167 mm[Hg] DO Conner Vaschak Work Phone: [facility] 09-30-2022 11:16-0500 Diastolic blood pressure 70 mm[Hg] DO Conner Stanley Work Phone: [facility] 09-30-2022 11:16-0500 Heart rate 60 /min DO Conner Stanley Work Phone: [facility] 09-30-2022 11:16-0500 Respiratory rate 20 /min DO Conner Stanley Work Phone: [facility] 09-30-2022 11:16-0500 SaO2% (BldA) [Mass fraction] 98 % DO Conner Stanley Work Phone: [facility] 09-30-2022 11:16-0500 Systolic blood pressure 117 mm[Hg] DO Conner Stanley Work Phone: [facility] 10-29-2021 13:03-0500 Body temperature 98 [degF] DO Conner Stanley Work Phone: [facility] Encounters Encounter Date Encounter Type Care Provider Facility Start: 08-07-2024 End: 08-07-2024 Nursing evaluation of patient and report Nurse Derm [facility] Rej Work Phone: Dermatology Comment on above: Spongiotic dermatiti s (Primary Dx) Start: 08-04-2024 End: 08-04-2024 ambulatory [facility] Facility:[facility] Start: 08-04-2024 End: 08-04-2024 Nursing evaluation of patient and report Nurse Derm c Rej Work Phone: Dermatology Comment on above: Spongiotic dermatiti s (Primary Dx) Start: 08-02-2024 End: 08-02-2024 ambulatory [facility] Facility:[facility] Start: 08-02-2024 End: 08-02-2024 Nursing evaluation of patient and report Nurse Derm [facility] Re[facility] Work Phone: Dermatology Comment on above: Spongiotic dermatiti s (Primary Dx) Start: 07-31-2024 End: 07-31-2024 ambulatory [facility] Facility:[facility] Start: 07-31-2024 End: 07-31-2024 Nursing evaluation of patient and report Nurse Derm [facility] Rej Work Phone: Dermatology Comment on above: Spongiotic dermatiti s (Primary Dx) Start: 07-28-2024 End: 07-28-2024 [facility] Facility:[facility] Start: 07-28-2024 End: 07-28-2024 Nursing evaluation of patient and report Nurse Derm [facility] Rej Work Phone: Dermatology Comment on above: Spongiotic dermatiti s (Primary Dx) Start: 07-28-2024 End: 07-28-2024 [facility] Facility:[facility] Start: 07-28-2024 End: 07-28-2024 Patient encounter procedure Ebonie James MD Work Phone: Dermatology Comment on above: Rash and nonspecific skin eruption (Primary Dx) Start: 07-27-2024 End: 07-27-2024 Orders Only Ebonie James MD Work Phone: Dermatology Comment on above: Rash and nonspecific skin eruption (Primary Dx) Start: 07-26-2024 End: 07-26-2024 Nursing evaluation of patient and report Nurse Derm [facility] Rej Work Phone: Dermatology Comment on above: Spongiotic dermatiti s (Primary Dx) Start: 07-26-2024 End: 07-26-2024 [facility] Facility:[facility] Start: 07-24-2024 End: 07-24-2024 Patient encounter procedure Benedicto Edyta DO Work Phone: [facility] Comment on above: Chronic eczema; Well woman exam with routine gynecological exam; Postmenopausal state; Breast cancer screening by mammogram; Bilateral breast cysts; Uterine cyst Start: 07-24-2024 End: 07-24-2024 ambulatory BENEDICTO EDYTA Not Available Start: 07-24-2024 End: 07-24-2024 Bamboo flowsheet Benedicto Edyta DO Work Phone: [facility] Start: 07-24-2024 End: 07-24-2024 Bamboo flowsheet Benedicto Edyta DO Work Phone: [facility] Start: 07-24-2024 End: 07-24-2024 ambulatory [facility] Facility:[facility] Start: 07-24-2024 End: 07-24-2024 Nursing evaluation of patient and report Nurse Derm [facility] Re[facility] Work Phone: Dermatology Comment on above: Spongiotic dermatiti s (Primary Dx) Start: 07-21-2024 End: 07-21-2024 ambulatory [facility] Facility:[facility] Start: 07-21-2024 End: 07-21-2024 Nursing evaluation of patient and report Nurse Derm [facility] Work Phone: Dermatology Comment on above: Spongiotic dermatiti s (Primary Dx) Start: 07-19-2024 End: 07-19-2024 Nursing evaluation of patient and report Nurse Derm [facility] Work Phone: Dermatology Comment on above: Spongiotic dermatiti s (Primary Dx) Start: 07-17-2024 End: 07-17-2024 Nursing evaluation of patient and report Nurse Derm [facility] Work Phone: Dermatology Comment on above: Spongiotic dermatiti s (Primary Dx) Start: 07-17-2024 End: 07-17-2024 ambulatory SELF Facility:[facility] Start: 07-14-2024 End: 07-14-2024 Nursing evaluation of patient and report Nurse Derm [facility] Re[facility] Work Phone: Dermatology Comment on above: Spongiotic dermatiti s (Primary Dx) Start: 07-14-2024 End: 08-07-2024 ambulatory SELF Facility:[facility] Start: 07-14-2024 End: 08-07-2024 Patient encounter procedure Ebonie James MD Work Phone: Dermatology Comment on above: Aug 14 appointment w krista Latham Start: 07-12-2024 End: 07-12-2024 ambulatory SELF Facility:[facility] Start: 07-12-2024 End: 07-12-2024 Nursing evaluation of patient and report Nurse Derm [facility] Re[facility] Work Phone: Dermatology Comment on above: Spongiotic dermatiti s (Primary Dx) Start: 06-20-2024 End: 06-20-2024 ambulatory [facility] Facility:[facility] Start: 06-20-2024 End: 06-20-2024 Patient encounter procedure Ebonie James MD Work Phone: Dermatology Comment on above: Rash and nonspecific skin eruption (Primary Dx); Spongiotic dermatitis Start: 06-05-2024 End: 06-05-2024 ambulatory Ebonie James MD Work Phone: Dermatology Comment on above: Update Start: 06-05-2024 End: 06-05-2024 E-mail encounter from caregiver Ebonie James MD Work Phone: Dermatology Start: 05-29-2024 End: 05-29-2024 ambulatory [facility] Facility:[facility] Start: 05-29-2024 End: 05-29-2024 Patient encounter procedure Ebonie James MD Work Phone: Dermatology Comment on above: Rash and nonspecific skin eruption (Primary Dx) Start: 05-29-2024 End: 05-29-2024 Telephone encounter Ebonie James MD Work Phone: Dermatology Start: 05-28-2024 End: 05-29-2024 ambulatory Ebonie James MD Work Phone: Dermatology Comment on above: Rash starting on hea d. Start: 05-12-2024 End: 05-12-2024 Telephone encounter Ebonie James MD Work Phone: Dermatology Comment on above: Received Outside Med ical Records Start: 05-11-2024 End: 05-11-2024 ambulatory [facility] Facility:[facility] Start: 05-09-2024 End: 05-09-2024 Telephone encounter Vandana Steele MD Work Phone: Pulmonary Medicine Start: 05-05-2024 End: 05-11-2024 Evaluation and management of inpatient [facility] Facility:[facility] Start: 05-05-2024 Telephone encounter Ebonie James MD Work Phone: Dermatology Comment on above: Received Outside Med ical Records Start: 05-05-2024 End: 05-05-2024 Patient encounter procedure Ebonie James MD Work Phone: Dermatology Comment on above: Rash and nonspecific skin eruption (Primary Dx) Start: 05-05-2024 End: 05-05-2024 ambulatory CONNER STANLEY Facility:[facility] Start: 05-03-2024 End: 05-03-2024 ambulatory EMELI SOLOMONMARKCruz Not Available Start: 05-03-2024 End: 05-03-2024 ambulatory CONNER TORIBIO STANLEY Facility:[facility] Start: 05-02-2024 Transcribe Orders Ebonie James MD Work Phone: Dermatology Comment on above: Rash and nonspecific skin eruption (Primary Dx) Received Outside Med ical Records Follow appointment w [facility] on 05/05 Start: 04-30-2024 Telephone encounter Ebonie James MD Work Phone: Pediatrics [facility] [place] Start: 04-28-2024 End: 04-28-2024 Emergency department patient visit [facility] Facility:[facility] Start: 04-28-2024 End: 04-28-2024 ambulatory CONNER Mj WORKMANRAISACruz Not Available Start: 04-24-2024 Telephone encounter Nurse Clin ical Work Phone: Dermatology Comment on above: Appointment; Receive d Outside Medical Records Start: 04-07-2024 End: 04-08-2024 Emergency department patient visit DO Conner Workmanraisacruz Work Phone: [facility] Work Phone: Start: 04-04-2024 End: 04-04-2024 Emergency department patient visit DO Conner Workmanraisacruz Work Phone: [facility] Work Phone: Start: 03-25-2024 End: 03-25-2024 Emergency department patient visit DO Conner Workmanraisacruz Work Phone: [facility] Work Phone: Start: 03-13-2024 End: 03-13-2024 ambulatory CONNER STANLEY Not Available Start: 11-30-2023 End: 11-30-2023 ambulatory Conner Stanley Facility[facility] Start: 12-08-2022 End: 12-09-[address] PTARICK VENTURA Facility: Start: 11-20-2022 End: 11-20-2022 ambulatory DO Conner Stanley Work Phone: [facility] Work Phone: Start: 11-20-2022 End: 11-20-2022 Patient encounter procedure DO Conner Stanley Work Phone: [facility] Work Phone: Start: 09-30-2022 Registered Recurring DO Conner Stanley Work Phone: [facility] Work Phone: Start: 09-18-2022 End: 09-18-2022 Patient encounter procedure DO Conner Stanley Work Phone: [facility] [place] Work Phone: Start: 08-26-2022 Phys/qhp telephone evaluation 21-30 min No PCP None [id number] lwell 6 [facility] Work Phone: Start: 08-26-2022 ambulatory Henrique Vail Facility:U Start: 08-12-2022 End: 08-12-2022 ambulatory DO Conner Stanley Work Phone: [facility] Work Phone: Start: 08-12-2022 End: 08-12-2022 Patient encounter procedure DO Conner Millercruz Work Phone: [facility] [place] Start: 03-24-2022 End: 03-25-[address] BENEDICTO LAN . Facility: Start: 03-16-2022 End: 03-16-[address] BENEDICTO LAN . Facility: Start: 05-05-2019 End: 05-08-2019 Patient encounter procedure EBER Barker [facility] Start: 05-05-2019 End: 05-07-2019 Subsequent hospital visit by physician [facility] Ultrasound Room [facility] Ultrasound Comment on above: Abnormal mammogram Start: 04-10-2019 End: 04-13-2019 Patient encounter procedure EBER Barker [facility] Start: 03-15-2019 End: 03-15-2019 Patient encounter procedure RADHA CARVALHO [facility] Procedures Date Procedure Procedure Detail Performing Clinician Start: 04-04-2024 Plain chest X-ray DO Conner Stanley Work Phone: Start: 04-04-2024 Streptococcus pyogenes antigen assay DO Conner MillerCompStak Work Phone: Start: 07-20-2023 Cytp cerv/vag auto thin layer prep mnl screen Benedicto Lan DO Work Phone: Start: 11-20-2022 End: 11-20-2022 Screening mammography of bilateral breasts DO Conner Stanley Work Phone: Start: 08-12-2022 Magnetic resonance cholangiopancreatography DO Conner MillerCompStak Work Phone: Start: 05-05-2019 Us breast uni real time with image complete EBER PALOMARES Start: 05-05-2019 Diagnostic mammography computer-aided detcj bi EBER PALOMARES Start: 05-05-2019 Us breast uni real time with image complete Eber J Christos Work Phone: Start: 04-10-2019 Screening mammography bi 2-view breast inc cad EBER PALOMARES Start: 03-15-2019 DIET GENERAL EBER PALOMARES Start: 03-15-2019 MISCELLANEOUS NURSING CARE ORDER (SPECIFY) EBER PALOMARES Start: 03-15-2019 REMOVE IV EBER PALOMARES Start: 03-15-2019 VITAL SIGNS EBER PALOMARES Start: 03-15-2019 DISCHARGE PATIENT EBER PALOMARES Start: 03-15-2019 Level iv surg pathology gross&microscopic exam EBER PALOMARES Start: 06-26-2019 INSERT PERIPHERAL IV EBER PALOMARES Start: 03-15-2019 Colonoscopy Nurse Clinical Work Phone: Plan of Treatment Date Care Activity Detail Author Start: 2030 RSV Vaccine (1 - 1-d ose 75+ series) RSV Vaccine (1 - 1-dose 75+ series) [facility] Start: 03-15-2029 Screening for malign ant neoplasm of colon [facility] Start: 05-05-2027 [facility] Start: 05-03-2027 Diabetes Screening Diabetes [facility] Start: 04-28-2027 [facility] Start: 08-16-2024 End: 08-16-2024 Nursing evaluation of patient and report 08/16/2024 3:20 PM EST Nurse Visit Dermatology [address] [place] [address] Rej, Nurse Derm [address] [address] [facility] Comment on above: [facility] Start: 08-14-2024 End: 08-14-2024 Patient encounter procedure 08/14/2024 4:30 PM EST Office Visit Dermatology [address] [address] [place] [address] [place] [id number] Patch test Dermatology Comment on above: Patch test Start: 08-14-2024 End: 08-14-2024 Nursing evaluation of patient and report 08/14/2024 3:20 PM EST Nurse Visit Dermatology [address] [place] [address] Rej, Nurse Derm [address] [address] [facility] Comment on above: [facility] Start: 08-11-2024 End: 08-11-2024 Nursing evaluation of patient and report 08/11/2024 3:20 PM EST Nurse Visit Dermatology [address] [place] [address] Rej, Nurse Derm [address] [address] [facility] Comment on above: [facility] Start: 08-09-2024 End: 08-09-2024 Nursing evaluation of patient and report 08/09/2024 3:20 PM EST Nurse Visit Dermatology [id number] [place] [address] Rej, Nurse Derm [facility] [id number] [place] [address] [facility] Comment on above: UV[facility] Start: 08-07-2024 End: 08-07-2024 Nursing evaluation of patient and report 08/07/2024 3:20 PM EST Nurse Visit Dermatology [address] [place] [address] Rej, Nurse Derm [address] [address] [facility] Comment on above: UVB Start: 08-04-2024 End: 08-04-2024 Nursing evaluation of patient and report 08/04/2024 2:40 PM EST Nurse Visit Dermatology [address] [place] [address] Rej, Nurse Derm [address] [address] [facility] Comment on above: UVB Start: 08-02-2024 End: 08-02-2024 Nursing evaluation of patient and report 08/02/2024 1:20 PM EST Nurse Visit Dermatology [address] [place] [address] Rej, Nurse Derm [address] [address] [facility] Comment on above: UV[facility] Start: 08-02-2024 End: 08-02-2024 Patient encounter procedure 08/02/2024 9:45 AM EST Office Visit Dermatology [address] [address] Ebonie James MD [address] [place] [address] follow up Dermatology Comment on above: follow up Start: 07-31-2024 End: 07-31-2024 Nursing evaluation of patient and report 07/31/2024 3:20 PM EST Nurse Visit Dermatology [address] [place] [address] Rej, Nurse Derm [facility] [id number] [place] [address] [facility] Comment on above: UVB Start: 07-28-2024 End: 07-28-2024 Nursing evaluation of patient and report 07/28/2024 3:20 PM EST Nurse Visit Dermatology [address] [place] [address] Rej, Nurse Derm [facility] [id number] [place] [address] [facility] Comment on above: UVB Start: 07-28-2024 End: 07-28-2024 Patient encounter procedure 07/28/2024 9:30 AM EST Office Visit Dermatology [address] [place] [address] Ebonie James MD [address] [place], [place] [phone] fu per DrK Dermatology Comment on above: fu per DrK Start: 07-26-2024 End: 07-26-2024 Nursing evaluation of patient and report 07/26/2024 3:20 PM EST Nurse Visit Dermatology [id number] [place] [address] Rej, Nurse Derm [facility] [address] [place] [address] [facility] Comment on above: UVB Start: 07-24-2024 End: 07-24-2024 Nursing evaluation of patient and report 07/24/2024 3:20 PM EST Nurse Visit Dermatology [id number] [place] [address] Rej, Nurse Derm [address] [address] [facility] Comment on above: UVB Start: 07-24-2024 End: 07-24-2024 Patient encounter procedure 07/24/2024 3:00 PM EST Office Visit [facility] [address] [place] [address] [place] [address] Benedicto Lan, [address] [place] [address] Chronic eczema [facility] Comment on above: Chronic eczema Start: 07-24-2024 End: 07-24-2025 DXA Skeletal system Views for bone density DEXA bone density Imaging Routine Postmenopausal state Expected: 07/24/2024 (Approximate), Expires: 07/24/2025 [facility] Work Phone: Comment on above: Expected: 07/24/2024 (Approximate), Expires: 07/24/2025 Start: 07-24-2024 End: 09-23-2025 MG Breast - bilateral Diagnostic Bilateral diagnostic mammogram Imaging Routine Bilateral breast cysts Expected: 07/24/2024 (Approximate), Expires: 09/23/2025 [facility] Work Phone: Comment on above: Expected: 07/24/2024 (Approximate), Expires: 09/23/2025 Start: 07-24-2024 End: 07-24-2025 US for US PELVIS-TRANSVAG IF INDICATED Imaging Routine Uterine cyst Expected: 07/24/2024 (Approximate), Expires: 07/24/2025 [facility] Comment on above: Expected: 07/24/2024 (Approximate), Expires: 07/24/2025 Start: 07-24-2024 End: 07-24-2024 Nursing evaluation of patient and report 07/24/2024 8:20 AM EST Nurse Visit Dermatology [address] [place] [address] Rej, Nurse Derm [facility] [address] [place] [address] [facility] Comment on above: [facility] Start: 07-21-2024 End: 07-21-2024 Nursing evaluation of patient and report 07/21/2024 3:00 PM EDT Nurse Visit Dermatology [address] [place] [address] Rej, Nurse Derm [facility] [address] [place] [address] [facility] Comment on above: [facility] Start: 07-20-2024 Medicare Annual Wellness (AWV) Medicare Annual Wellness (AWV) [facility] Start: 07-19-2024 End: 07-19-2024 Nursing evaluation of patient and report 07/19/2024 3:20 PM EDT Nurse Visit Dermatology [address] [place] [address] Rej, Nurse Derm [facility] [id number] [place] [address] [facility] Comment on above: [facility] Start: 07-17-2024 End: 07-17-2024 Nursing evaluation of patient and report 07/17/2024 2:40 PM EDT Nurse Visit Dermatology [address] [place] [address] Rej, Nurse Derm [facility] [id number] [place] [address] [facility] Comment on above: [facility] Start: 07-14-2024 End: 07-14-2024 Nursing evaluation of patient and report 07/14/2024 3:20 PM EDT Nurse Visit Dermatology [address] [place] [address] Rej, Nurse Derm [facility] [phone] [place] [address] [facility] Comment on above: [facility] Start: 06-28-2024 End: 06-28-2024 Patient encounter procedure 06/28/2024 10:20 AM EDT Office Visit Dermatology [address] [address] Ruben Roberts MD [address] [place] [address] extended complex med visit Dermatology Comment on above: extended complex med visit Start: 05-29-2024 End: 05-29-2024 Patient encounter procedure 05/29/2024 2:30 PM EDT Office Visit Dermatology [facility] [place], [place] [id number] Ebonie James MD [address] [place] [address] Rash worsening Dermatology Comment on above: Rash worsening Start: 05-21-2024 Covid-19 Vaccine ( season) Covid-19 Vaccine ( season) [facility] Start: 05-21-2024 Covid-19 Vaccine ( season) Covid-19 Vaccine () [facility] Start: 05-21-2024 Influenza vaccination Influenza Vacc ine (#1) [facility] Start: 05-05-2024 End: 05-05-2024 Patient encounter procedure 05/05/2024 1:00 PM EDT Office Visit Dermatology [address] [place], [place] [id number] Ebonie James MD [address] [place] [address] Rash follow up Dermatology Comment on above: Rash follow up Start: 05-02-2024 End: 08-01-2024 CBC W Auto Differential panel - Blood COMPLETE BLOOD COUNT AND DIFFERENTIAL Lab Routine Rash and nonspecific skin eruption Expected: 05/02/2024, Expires: 08/01/2024 [facility] Work Phone: Comment on above: Expected: 05/02/2024 , Expires: 08/01/2024 Start: 05-02-2024 End: 08-01-2024 Comprehensive metabolic 2000 panel - Serum or Plasma COMPREHENSIVE METABOLIC PANEL Lab Routine Rash and nonspecific skin eruption Expected: 05/02/2024, Expires: 08/01/2024 [facility] Comment on above: Expected: 05/02/2024 , Expires: 08/01/2024 Start: 04-08-2024 [facility] Start: 04-04-2024 Bacteria identified in Blood by Culture [facility] Start: 04-04-2024 Blood culture for bacteria, including anaerobic screen Blood Culture [facility] Start: 03-15-2024 Colon cancer screen colonoscopy Colon cancer screen colonoscopy [place], [place] Start: 11-21-2023 Screening for malign ant neoplasm of breast [facility] Start: 09-20-2023 Advance Directive Discussion Advance Directive Discussion [facility] Start: 05-21-2023 Covid-19 Vaccine ( season) Covid-19 Vaccine ( season) [facility] Start: 05-05-2021 Breast cancer screen Breast cancer s creen [place], [place] Start: 2020 Pneumococcal Vaccine : 65+ (1 of 1 - PCV) Pneumococcal Vaccine: 65+ (1 of 1 - PCV) [facility] Start: 2020 Pneumococcal Vaccine : 65+ Years (1 of 1 - PCV) Pneumococcal Vaccine: 65+ Years (1 of 1 - PCV) [facility] Start: 2020 Screening for osteoporosis Bone Density Screening [facility] Start: 03-15-2020 Screening for malign ant neoplasm of colon [facility] Start: 05-21-2019 Influenza vaccination Flu vaccine (# 1) [place], [place] Start: 2015 RSV Vaccine (1 - 1-d ose 60+ series) RSV Vaccine (1 - 1-dose 60+ series) [facility] Start: 2005 Shingles Vaccine (1 of 2) Shingles Vaccine (1 of 2) [place], [place] Start: 2000 Diabetes Screening Diabetes Screenin g [facility] Start: 2000 Lipid panel Lipid Screening [facility] Start: 2000 Screening for malign ant neoplasm of colon [facility] Start: 1995 Lipid screen Lipid screen [place], [place] Start: 1976 Cervical cancer screen Cervical canc er screen [place], [place] Start: 1974 DTaP/Tdap/Td vaccine (1 - Tdap) DTaP/Tdap/Td vaccine (1 - Tdap) [place], [place] Start: 1974 Urine microalbumin profile DTaP,Tdap,Td Vaccine (1 - Tdap) [facility] Start: 1973 Anxiety Screening Anxiety Screening [facility] Start: 1973 Depression Screening Depression Scre ening [facility] Start: 1973 Hepatitis C screening Hepatitis C Kevyn gutierrez [facility] Start: 1970 HIV screen HIV screen [place], [place] Start: 1955 Hepatitis C screen Hepatitis C scree n [place], [place] Start: 1955 Screening for malign ant neoplasm of colon [facility] Homogenous nuclear A b pattern [Titer] in Serum [facility] Nuclear Ab [Titer] i n Serum [facility] Patient Education [facility] Work Phone: Patient referral [facility] Work Phone: PHOTOTHERAPY PHOTOTHERAPY Pro cedures Routine Spongiotic dermatitis Ordered: 06/20/2024 [facility] Work Phone: Comment on above: Ordered: 06/20/2024 Rheumatoid factor [Units/volume] in Serum or Plasma [facility] THIN PREP TIS PAP AN D HR HPV DNA THIN PREP TIS PAP AND HR HPV DNA Pathology and Cytology Routine Well woman exam with routine gynecological exam Ordered: 07/24/2024 [facility] Comment on above: Ordered: 07/24/2024 Immunizations Immunization Date Immunization Notes Care Provider [facility] 03-08-2020 zoster vaccine recombinant Vandana Steele MD Work Phone: [facility] 11-27-2019 zoster vaccine recombinant Vandana Steele MD Work Phone: [facility] Payers Date Payer Category Payer Self-pay [id number] 2020 Medicare [id number] 2020 Private Health Insurance [id number] 2014 Unknown [id number] 2014 Unknown [employer] xxxxxxxxx 2014-Present [phone] [address] [place] [address] xxxxxxxxx [id number] 1959 Medicare [id number] 1959 Private Health Insurance [facility] [id number] 1955 Unknown [id number] [id number]. 2.173 1955 Unknown [id number] 2.16.840.1.196766.3.579. 2.173 1955 Unknown [id number] 2.16.840.1.863717.3.579. 2.173 1955 Unknown [id number] 2.16.840.1.759709.3.579. 2.173 1955 Unknown [id number] 2.16.840.1.633983.3.579. 2.356 1955 Unknown [id number] 2.16.840.1.098463.3.579. 2.593 1955 Unknown [id number] 2.16.840.1.683722.3.579. 2.593 1955 Unknown [id number] 2.16.840.1.216199.3.579. 2.593 1955 Unknown [id number] 2.16.840.1.645745.3.579. 2.1259 1955 Unknown [id number] 2.16.840.1.562141.3.579. 2.1259 1955 Unknown [id number] 2.16.840.1.433728.3.579. 2.1259 1955 Unknown [id number] 2.16.840.1.517633.3.579. 2.1259 Unknown Unknown [id number] 2.16.840.1.723034.3.579. 2.531 Unknown [id number] 2.16.840.1.764306.3.579. 2.531 Unknown [id number] 2.16.840.1.655251.3.579. 2.531 Unknown [id number] 2.16.840.1.096947.3.579. 2.531 Social History Date Type Detail Facility Start: 03-20-2019 End: 05-05-2024 Tobacco smoking status NHIS Never smoker [facility] Start: 03-20-2019 End: 04-29-2024 Alcohol intake Yes [facility] Start: 03-15-2019 Alcohol Comment social Meredith Adrian [place], [place] Start: 1955 Sex Assigned At Not on file [place], [place] Start: 1955 Sex Assigned At Female F [facility] Start: 08-24-2019 End: 05-05-2024 Tobacco use and exposure Smokeless tobacco non-user [facility] Start: 08-24-2019 End: 07-28-2024 Alcohol intake Current drinker of alcohol (finding) [facility] Start: 08-24-2019 End: 04-29-2024 History of Social function [facility] How often to you hav e a drink containing alcohol? 2-4 times a month [facility] How many standard drinks containing alcohol do you have on a typical day? Not asked [facility] Start: 06-25-2023 Alcohol Comment occasionally [facility] Clinical Notes 04-24-2024 to 08-07-2024 Sonam Freitas RN - 08/07/2024 3:20 PM ESTTelephone Encounter - Loly Chen - 08/07/2024 11:24 AM ESTTelephone Encounter - Loly Chen - 08/07/2024 11:24 AM ESTPatient Instructions Note Date & Type Note Facility 08-07-2024 History of Present illness Narrative Pt is identified by name and birthdate: Yes Allergies reviewed: Yes Medication - prescribed and OTC reviewed and updated: Yes Latex allergy: no. Is the patient having any pain? No 0 on a scale of 0 to 10 See flow sheet for treatment record. Protective eyewear given and worn. Sonam Freitas RN August 07, 2024 3:17 PM documented in this encounter [facility] 08-07-2024 Telephone encounter Note Nothing available earlier at this time (08/07 11:24) [facility] 08-07-2024 Miscellaneous Notes Nothing available earlier at this time (08/07 11:24) documented in this encounter [facility] 08-04-2024 Note HNO ID: [id number] Author: SONAM FREITAS RN Service: ? Author Type: Registered Nurse Type: Progress Notes Filed: 08/04/2024 14:52 Note Text: Pt is identified by name and birthdate: Yes Allergies reviewed: Yes Medication - prescribed and OTC reviewed and updated: Yes Latex allergy: no. Is the patient having any pain? No 0 on a scale of 0 to 10 See flow sheet for treatment record. Protective eyewear given and worn. Sonam Freitas RN August 04, 2024 2:49 PM [facility] 08-04-2024 History of Present illness Narrative Pt is identified by name and birthdate: Yes Allergies reviewed: Yes Medication - prescribed and OTC reviewed and updated: Yes Latex allergy: no. Is the patient having any pain? No 0 on a scale of 0 to 10 See flow sheet for treatment record. Protective eyewear given and worn. Sonam Freitas RN August 04, 2024 2:49 PM documented in this encounter [facility] 08-02-2024 Note HNO ID: [id number] Author: KIERRA WILLIS RN Service: ? Author Type: Registered Nurse Type: Progress Notes Filed: 08/02/2024 13:45 Note Text: Pt is identified by name and birthdate: Yes Allergies reviewed: Yes Medication - prescribed and OTC reviewed and updated: Yes Latex allergy: no. Is the patient having any pain? No 0 on a scale of 0 to 10 See flow sheet for treatment record. Protective eyewear given and worn. Kierra Willis RN August 02, 2024 1:39 PM [facility] 08-02-2024 History of Present illness Narrative Pt is identified by name and birthdate: Yes Allergies reviewed: Yes Medication - prescribed and OTC reviewed and updated: Yes Latex allergy: no. Is the patient having any pain? No 0 on a scale of 0 to 10 See flow sheet for treatment record. Protective eyewear given and worn. Kierra Willis RN August 02, 2024 1:39 PM documented in this encounter [facility] 07-31-2024 Note HNO ID: [id number] Author: EVANGELINA JIANG RN Service: ? Author Type: Registered Nurse Type: Progress Notes Filed: 07/31/2024 15:22 Note Text: Pt is identified by name and birthdate: Yes Allergies reviewed: Yes Medication - prescribed and OTC reviewed and updated: Yes Latex allergy: no. Is the patient having any pain? No 0 on a scale of 0 to 10 See flow sheet for treatment record. Protective eyewear given and worn. Evangelina Jiang RN July 31, 2024 3:14 PM [facility] 07-31-2024 History of Present illness Narrative Pt is identified by name and birthdate: Yes Allergies reviewed: Yes Medication - prescribed and OTC reviewed and updated: Yes Latex allergy: no. Is the patient having any pain? No 0 on a scale of 0 to 10 See flow sheet for treatment record. Protective eyewear given and worn. Evangelina Jiang RN July 31, 2024 3:14 PM documented in this encounter [facility] 07-28-2024 Note HNO ID: [id number] Author: EVANGELINA JIANG RN Service: ? Author Type: Registered Nurse Type: Progress Notes Filed: 07/28/2024 14:53 Note Text: Pt is identified by name and birthdate: Yes Allergies reviewed: Yes Medication - prescribed and OTC reviewed and updated: Yes Latex allergy: no. Is the patient having any pain? No 0 on a scale of 0 to 10 See flow sheet for treatment record. Protective eyewear given and worn. Evangelina Jiang RN July 28, 2024 2:47 PM [facility] 07-28-2024 History of Present illness Narrative Pt is identified by name and birthdate: Yes Allergies reviewed: Yes Medication - prescribed and OTC reviewed and updated: Yes Latex allergy: no. Is the patient having any pain? No 0 on a scale of 0 to 10 See flow sheet for treatment record. Protective eyewear given and worn. Evangelina Jiang RN July 28, 2024 2:47 PM documented in this encounter [facility] 07-28-2024 History of Present illness Narrative Established patient CHIEF COMPLAINT: Rash follow up HISTORY OF PRESENT ILLNESS: Mirian Corrales is a 68 year old female here for evaluation of Rash. Rash is returning. Patient states it comes and goes. Rash is still very itchy. She has light Tx scheduled for this afternoon. Ears are very dry and crusty. LCV: 06/20/2024 Provider: Ebonie James MD Found to have: #Rash and nonspecific skin eruption, with prior biopsy showing spongiotic dermatitis - Scheduled for patch testing on 08/14/[address] Latham - Complete oral prednisone taper as previously prescribed: 40 mg x 5 days, 20 mg x 5 days, then 10 mg x 5 days - Continue Protonix and vitamin D supplement while on prednisone - Plan to start [id number] Personal Dermatologic History History of skin cancer: No History of actinic keratoses: No History of atypical nevi: No History of immunosuppression: Yes History of blistering sunburns: Yes FAMILY HISTORY: History of melanoma: Father and niece Past Medical History No past medical history on file. REVIEW OF SYSTEMS: Constitutional: Denies fever, chills, unintentional weight loss. Skin as per HPI Medications Current Outpatient Medications Medication Sig predniSONE (DELTASONE) 10 mg tablet Take 2 tablets by mouth once daily. hydrOXYzine HCl (ATARAX) 25 mg tablet Hydroxyzine Hcl Active 25 MG PO Q6H April 08, 2024 12:00am triamcinolone acetonide (KENALOG) 0.1 % ointment Apply to affected area two times a day. white petrolatum (AQUAPHOR) 41 % topical ointment Apply to affected area as needed. pantoprazole DR (PROTONIX) 40 mg tablet Take 1 tablet by mouth daily at 6 am. Patient should start on May 11, 2024. fexofenadine (SHANTELLE) 60 mg tablet Take 60 mg by mouth once daily. Lactobacillus acidophilus (PROBIOTIC ORAL) Take 1 capsule by mouth once daily. Cholecalciferol, Vitamin D3, 25 mcg (1,000 unit) cap Take 1,000 Units by mouth once daily. No current facility-administered medications for this visit. 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 -continue Narrowband UVB light Tx~hold dose at 245 -Methotrexate in reserve -Prednisone in reserve if patient starts flaring For symptomatic relief: - Triamcinolone 0.1% ointment twice daily to affected areas on body Wednesday-Wednesday with flares. Take weekends off. Avoid use on face, breasts, groin, or axiillae. Counseled patient regarding side effects of topical steroids including, but are not limited to: atrophy, striae, telangectasias, tachyphylaxis, pigmentary changes, as well as risk of cataracts and glaucoma with periocular use. Informed patient that topical steroids should only be used on active skin lesions and not on normal skin. - Discussed gentle skin care and recommend liberal use of emollients (Aquaphor, Hydrolatum, Vaseline, Eucerin) multiple times throughout the day. Recommended sunscreen SPF 30 or above and sun protective clothing. Patient advised of potential adverse effects of any medications discussed above and what to do if patient experiences any of these, including contacting clinic. Answered all questions. Patient expressed understanding. Return to clinic: PRN The patient is seen and examined by Dr. Ebonie James MD and the following reflects his/her service. Scribed by Dl Matthews LPN I agree with the Chief Complaint, ROS, and Past Histories independently gathered by the clinical pit crew support worker and the remaining scribed note accurately describes my personal service to the patient. Ebonie James MD documented in this encounter [facility] 07-28-2024 Note HNO ID: [id number] Author: EBONIE JAMES MD Service: ? Author Type: Physician Type: Progress Notes Filed: 07/28/2024 12:21 Note Text: Established patient CHIEF COMPLAINT: Rash follow up HISTORY OF PRESENT ILLNESS: Mirian Corrales is a 68 year old female here for evaluation of Rash. Rash is returning. Patient states it comes and goes. Rash is still very itchy. She has light Tx scheduled for this afternoon. Ears are very dry and crusty. LCV: 06/20/2024 Provider: Ebonie James MD Found to have: #Rash and nonspecific skin eruption, with prior biopsy showing spongiotic dermatitis - Scheduled for patch testing on 08/14/[address] Latham - Complete oral prednisone taper as previously prescribed: 40 mg x 5 days, 20 mg x 5 days, then 10 mg x 5 days - Continue Protonix and vitamin D supplement while on prednisone - Plan to start nbUVB Personal Dermatologic History History of skin cancer: No History of actinic keratoses: No History of atypical nevi: No History of immunosuppression: Yes History of blistering sunburns: Yes FAMILY HISTORY: History of melanoma: Father and niece Past Medical History No past medical history on file. REVIEW OF SYSTEMS: Constitutional: Denies fever, chills, unintentional weight loss. Skin as per HPI Medications Current Outpatient Medications Medication Sig predniSONE (DELTASONE) 10 mg tablet Take 2 tablets by mouth once daily. hydrOXYzine HCl (ATARAX) 25 mg tablet Hydroxyzine Hcl Active 25 MG PO Q6H April 08, 2024 12:00am triamcinolone acetonide (KENALOG) 0.1 % ointment Apply to affected area two times a day. white petrolatum (AQUAPHOR) 41 % topical ointment Apply to affected area as needed. pantoprazole DR (PROTONIX) 40 mg tablet Take 1 tablet by mouth daily at 6 am. Patient should start on May 11, 2024. fexofenadine (SHANTELLE) 60 mg tablet Take 60 mg by mouth once daily. Lactobacillus acidophilus (PROBIOTIC ORAL) Take 1 capsule by mouth once daily. Cholecalciferol, Vitamin D3, 25 mcg (1,000 unit) cap Take 1,000 Units by mouth once daily. No current facility-administered medications for this visit. 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 -continue Narrowband UVB light Tx~hold dose at 245 -Methotrexate in reserve -Prednisone in reserve if patient starts flaring For symptomatic relief: - Triamcinolone 0.1% ointment twice daily to affected areas on body Wednesday-Wednesday with flares. Take weekends off. Avoid use on face, breasts, groin, or axiillae. Counseled patient regarding side effects of topical steroids including, but are not limited to: atrophy, striae, telangectasias, tachyphylaxis, pigmentary changes, as well as risk of cataracts and glaucoma with periocular use. Informed patient that topical steroids should only be used on active skin lesions and not on normal skin. - Discussed gentle skin care and recommend liberal use of emollients (Aquaphor, Hydrolatum, Vaseline, Eucerin) multiple times throughout the day. Recommended sunscreen SPF 30 or above and sun protective clothing. Patient advised of potential adverse effects of any medications discussed above and what to do if patient experiences any of these, including contacting clinic. Answered all questions. Patient expressed understanding. Return to clinic: PRN The patient is seen and examined by Dr. Ebonie James MD and the following reflects his/her service. Scribed by Dl Matthews LPN I agree with the Chief Complaint, ROS, and Past Histories independently gathered by the clinical pit crew support worker and the remaining scribed note accurately describes my personal service to the patient. Ebonie James MD [facility] 07-28-2024 Instructions Dl Matthews LPN - 07/28/2024 9:26 AM EST Continue Narrowband UVB therapy, Prednisone in reserve if patient flares Methotrexate in reserve documented in this encounter [facility] 07-26-2024 Note HNO ID: [id number] Author: AUSTIN BOSS RN Service: ? Author Type: Registered Nurse Type: Progress Notes Filed: 07/26/2024 15:45 Note Text: Pt is identified by name and birthdate: Yes Allergies reviewed: Yes Medication - prescribed and OTC reviewed and updated: Yes Latex allergy: no. Is the patient having any pain? No 0 on a scale of 0 to 10 See flow sheet for treatment record. Protective eyewear given and worn. Patient states rash is worse, has an appt Wednesday with provider. Austin Boss RN July 26, 2024 3:34 PM [facility] 07-26-2024 History of Present illness Narrative Pt is identified by name and birthdate: Yes Allergies reviewed: Yes Medication - prescribed and OTC reviewed and updated: Yes Latex allergy: no. Is the patient having any pain? No 0 on a scale of 0 to 10 See flow sheet for treatment record. Protective eyewear given and worn. Patient states rash is worse, has an appt Wednesday with provider. Austin Boss RN July 26, 2024 3:34 PM documented in this encounter [facility] 07-24-2024 History of Present illness Narrative Reason for Appointment: Patient ID: Mirian Corrales is a 68 y.o. female who presents for Well Women Visit Patient presents today for Annual Exam. MEDICATIONS Current Outpatient Medications Medication Instructions calcium carbonate 1,500 mg, Oral, Daily cholecalciferol (VITAMIN D-3) 800 Units, Oral, Daily Digestive Enzyme capsule as directed Orally fexofenadine (SHANTELLE) 60 mg, Oral, Daily magnesium 200 mg, Every 24 hours Multiple Vitamin (Multi Vitamin) tablet Every 24 hours predniSONE (Deltasone) 10 MG tablet TAKE 2 TABLETS BY MOUTH DAILY FOR 7 DAYS, then TAKE 1 TABLET BY MOUTH DAILY FOR 7 DAYS Probiotic chewable tablet as directed Orally triamcinolone (Kenalog) 0.1 % cream APPLY TO THE AFFECTED AREA(S) topically 2-3 times DAILY NEEDED *avoid face and groin* triamcinolone (Kenalog) 0.1 % ointment Topical, 2 times daily ALLERGIES Allergies Allergen Reactions Diphenhydramine Other Reaction(s): SENSITIVITY-eyes dilated Gluten Meal Other Reaction(s): abdominal pain Tilactase Swelling Bloating Wheat Swelling PROBLEMS Active Ambulatory Problems Diagnosis Date Noted Age-related osteoporosis without current pathological fracture (CMS/HCC) 06/25/2023 Non-celiac gluten sensitivity 06/25/2023 Post menopausal syndrome 06/25/2023 Primary osteoarthritis involving multiple joints 07/19/2023 Chronic eczema 07/24/2024 Resolved Ambulatory Problems Diagnosis Date Noted Family history of pancreatic cancer 07/19/2023 [facility] arthritis 07/19/2023 Derangement of right sacroiliac joint 07/19/2023 Past Medical History: Diagnosis Date Eczema Osteoporosis (CMS/HCC) Pelvic pain in female Vertigo 2018 HISTORY PAST MEDICAL HISTORY SOCIAL HISTORY Past Medical History: Diagnosis Date Eczema Osteoporosis (CMS/HCC) Pelvic pain in female Vertigo 2018 [facility] Social History Tobacco Use Smoking status: Never Smokeless tobacco: Never Substance Use Topics Alcohol use: Yes Alcohol/week: 1.0 standard drink of alcohol Types: 1 Glasses of wine per week Comment: occasionally Drug use: Never FAMILY HISTORY Family History Problem Relation Name Age of Onset Hypertension Mother Melanoma Father Hypertension Father Pancreatic cancer Brother Pancreatic cancer Brother Breast cancer Daughter SURGICAL HISTORY Past Surgical History: Procedure Laterality Date PAP SMEAR 09/14/2019 negative TENDON REPAIR Left 1998 forearm REVIEW OF SYSTEMS Review of Systems: Review of Systems All other systems reviewed and are negative. OBJECTIVE Objective: Physical Exam Constitutional: Appearance: Normal appearance. She is well-developed. Genitourinary: Vulva normal. Breasts: Breasts are soft. Right: Normal. Left: Normal. Cardiovascular: Rate and Rhythm: Normal rate and regular rhythm. Pulmonary: Effort: Pulmonary effort is normal. Breath sounds: Normal breath sounds. Abdominal: General: Bowel sounds are normal. There is no distension. Palpations: Abdomen is soft. Tenderness: There is no abdominal tenderness. There is no guarding or rebound. Musculoskeletal: General: No swelling. Normal range of motion. Right lower leg: No edema. Left lower leg: No edema. Neurological: Mental Status: She is alert and oriented to person, place, and time. Skin: General: Skin is warm and dry. Psychiatric: Mood and Affect: Mood normal. Behavior: Behavior normal. Vitals and nursing note reviewed. Exam conducted with a bearing press machine operator present. Vitals: Estimated body mass index is 18.4 kg/m as calculated from the following: Height as of this encounter: 5' 6 . Weight as of this encounter: 114 lb. BP: 130/72 No LMP recorded. ASSESSMENT & PLAN ICD-10-CM 1. Chronic eczema L30.9 2. Well woman exam with routine gynecological exam Z01.419 THIN PREP TIS PAP AND HR HPV DNA 3. Postmenopausal state Z78.0 DEXA bone density 4. Breast cancer screening by mammogram Z12.31 CANCELED: Bilateral screening mammogram CANCELED: Bilateral screening mammogram 5. Bilateral breast cysts N60.01 Bilateral diagnostic mammogram N60.02 Bilateral diagnostic mammogram 6. Uterine cyst N85.8 US PELVIS-TRANSVAG IF INDICATED Annual: Patient presents today for an annual exam. Patient states she is doing well and has no complaints. Pap was obtained without difficulty and patient given mammogram and DEXA order to have scheduled/obtained. Orders Placed This Encounter Procedures DEXA bone density Bilateral diagnostic mammogram US PELVIS-TRANSVAG IF INDICATED Follow Up: Patient is to return in one year for annual unless needed otherwise. Orders Placed This Encounter Procedures DEXA bone density Bilateral diagnostic mammogram US PELVIS-TRANSVAG IF INDICATED Follow Up: Patient is to return in one year for annual unless needed otherwise. Documented by Kierra Simpson on behalf of: Benedicto Lan DO documented in this encounter [place] [id number] Note HNO ID: [id number] Author: SONAM FREITAS RN Service: ? Author Type: Registered Nurse Type: Progress Notes Filed: 07/24/2024 08:12 Note Text: Pt is identified by name and birthdate: Yes Allergies reviewed: Yes Medication - prescribed and OTC reviewed and updated: Yes Latex allergy: no. Is the patient having any pain? No 0 on a scale of 0 to 10 See flow sheet for treatment record. Protective eyewear given and worn. Sonam Freitas RN July 24, 2024 8:11 AM [facility] 07-24-2024 History of Present illness Narrative Pt is identified by name and birthdate: Yes Allergies reviewed: Yes Medication - prescribed and OTC reviewed and updated: Yes Latex allergy: no. Is the patient having any pain? No 0 on a scale of 0 to 10 See flow sheet for treatment record. Protective eyewear given and worn. Sonam Freitas RN July 24, 2024 8:11 AM documented in this encounter [facility] 07-21-2024 History of Present illness Narrative Pt is identified by name and birthdate: Yes Allergies reviewed: Yes Medication - prescribed and OTC reviewed and updated: Yes Latex allergy: no. Is the patient having any pain? No 0 on a scale of 0 to 10 See flow sheet for treatment record. Protective eyewear given and worn. Kierra Willis RN July 21, 2024 3:02 PM documented in this encounter [facility] 07-21-2024 Note HNO ID: [id number] Author: KIERRA WILLIS RN Service: ? Author Type: Registered Nurse Type: Progress Notes Filed: 07/21/2024 15:13 Note Text: Pt is identified by name and birthdate: Yes Allergies reviewed: Yes Medication - prescribed and OTC reviewed and updated: Yes Latex allergy: no. Is the patient having any pain? No 0 on a scale of 0 to 10 See flow sheet for treatment record. Protective eyewear given and worn. Kierra Willis RN July 21, 2024 3:02 PM [facility] 07-19-2024 History of Present illness Narrative no show documented in this encounter [facility] 07-19-2024 Note HNO ID: [id number] Author: AUSTIN BOSS RN Service: ? Author Type: Registered Nurse Type: Progress Notes Filed: 07/19/2024 15:40 Note Text: no show [facility] 07-17-2024 Note HNO ID: [id number] Author: KIERRA WILLIS RN Service: ? Author Type: Registered Nurse Type: Progress Notes Filed: 07/17/2024 14:59 Note Text: Patient treatment cancelled for today as she has moderate to severe erythema to torso front and back. Will skip Wednesdays appointment and re-evaluate on Wednesday. Dr. James aware. Kierra Willis RN July 17, 2024 2:58 PM [facility] 07-17-2024 History of Present illness Narrative Patient treatment cancelled for today as she has moderate to severe erythema to torso front and back. Will skip Wednesdays appointment and re-evaluate on Wednesday. Dr. James aware. Kierra Willis RN July 17, 2024 2:58 PM documented in this encounter [facility] 07-14-2024 Note HNO ID: [id number] Author: SONAM FREITAS RN Service: ? Author Type: Registered Nurse Type: Progress Notes Filed: 07/14/2024 15:20 Note Text: Pt is identified by name and birthdate: Yes Allergies reviewed: Yes Medication - prescribed and OTC reviewed and updated: Yes Latex allergy: no. Is the patient having any pain? No 0 on a scale of 0 to 10 See flow sheet for treatment record. patient oriented to [employer] and room eye protection on Sonam Freitas RN July 14, 2024 3:20 PM [facility] 07-14-2024 History of Present illness Narrative Pt is identified by name and birthdate: Yes Allergies reviewed: Yes Medication - prescribed and OTC reviewed and updated: Yes Latex allergy: no. Is the patient having any pain? No 0 on a scale of 0 to 10 See flow sheet for treatment record. patient oriented to [employer] and room eye protection on Sonam Freitas RN July 14, 2024 3:20 PM documented in this encounter [facility] 07-12-2024 Note HNO ID: [id number] Author: AUSTIN BOSS RN Service: ? Author Type: Registered Nurse Type: Progress Notes Filed: 07/12/2024 15:43 Note Text: Pt is identified by name and birthdate: Yes Allergies reviewed: Yes Medication - prescribed and OTC reviewed and updated: Yes Latex allergy: no. Is the patient having any pain? No 0 on a scale of 0 to 10 See flow sheet for treatment record. patient oriented to [employer] and room eye protection on Austin Boss RN July 12, 2024 3:42 PM [facility] 07-12-2024 History of Present illness Narrative Pt is identified by name and birthdate: Yes Allergies reviewed: Yes Medication - prescribed and OTC reviewed and updated: Yes Latex allergy: no. Is the patient having any pain? No 0 on a scale of 0 to 10 See flow sheet for treatment record. patient oriented to [employer] and room eye protection on Austin Boss RN July 12, 2024 3:42 PM documented in this encounter [facility] 06-20-2024 Instructions Marilu Harris MD - 06/20/2024 1:42 PM EDT APPOINTMENT NUMBERS FOR PHOTOTHERAPY UNITS For narrow band UVB there are multiple facilities that have full body booths including: - [facility] ([phone]) - [facility] ([phone]) - [facility] ([phone]) - [place] ([phone]) - [place] ([phone]) - [facility] (regular appt number [phone]) - [place] ([phone]) - [place] ([phone]) - [place] ([phone]) documented in this encounter [facility] 06-20-2024 History of Present illness Narrative Est patient CHIEF COMPLAINT: Rash HISTORY OF PRESENT ILLNESS: Mirian Corrales is a 68 year old female here for evaluation of Rash. LCV: 05/29/2024 Provider: Dr. James Found to have: Rash -Biopsy results showing spongiotic dermatitis -Scheduled for patch testing -Prednisone taper 80 mg x 5 days 60 mg x 5 days 40 mg x 5 days 20 mg x 5 days 10 mg x 5 days -Continue protonix and vit D supplement Today patient reports rash varies daily. Seems to flare with certain foods (I.e., cheese, gluten). Today is a good day for the rash. Currently on day 1 of 40 mg of prednisone (new 60 mg prednisone taper was sent on 06/05/24). Personal Dermatologic History History of skin cancer: No History of actinic keratoses: No History of atypical nevi: No History of immunosuppression: Yes History of blistering sunburns: Yes FAMILY HISTORY: History of melanoma: Father and niece Past Medical History No past medical history on file. REVIEW OF SYSTEMS: Constitutional: Denies fever, chills, unintentional weight loss. Skin as per HPI Medications Current Outpatient Medications Medication Sig predniSONE (DELTASONE) 10 mg tablet Take 6 tablets by mouth once daily for 5 days, THEN 4 tablets once daily for 5 days, THEN 2 tablets once daily for 5 days, THEN 1 tablet once daily for 5 days. hydrOXYzine HCl (ATARAX) 25 mg tablet Hydroxyzine Hcl Active 25 MG PO Q6H 30 Laurie 20th, 2024 12:00am triamcinolone acetonide (KENALOG) 0.1 % ointment Apply to affected area two times a day. white petrolatum (AQUAPHOR) 41 % topical ointment Apply to affected area as needed. pantoprazole DR (PROTONIX) 40 mg tablet Take 1 tablet by mouth daily at 6 am. Patient should start on May 11, 2024. fexofenadine (SHANTELLE) 60 mg tablet Take 60 mg by mouth once daily. Lactobacillus acidophilus (PROBIOTIC ORAL) Take 1 capsule by mouth once daily. Cholecalciferol, Vitamin D3, 25 mcg (1,000 unit) cap Take 1,000 Units by mouth once daily. No current facility-administered medications for this visit. PHYSICAL EXAM: General: awake, alert, no acute distress Neuropsych: appropriate mood and affect Eyes: Sclerae anicteric, without conjunctival injection, eyelids unremarkable Skin: Skin exam was performed today including the following: Skin exam performed including face, scalp, neck, chest, abdomen, back, arms, hands, nails, legs, feet, and buttocks. All are within normal limits except the following findings: - scattered excoriated erythematous papules coalescing into plaques over the trunk and bilateral upper and lower extremities ASSESSMENT & PLAN: Mirian Corrales is a 68 year old female patient with a past medical history of: osteoporosis and varicose veins presented to the ED from derm clinic for rash with associated significant eosinophilia. Pt found to have lymphadenopathy on exam and reports recent weight loss. Reports rash is responsive to systemic steroids. Prior biopsy showed spongiotic dermatitis indicating possible contact dermatitis, atopic dermatitis, or an eczematous drug reaction. No indication of lymphoma or underlying cutaneous malignancy on pathology. Suspect lymphadenopathy could be explained by substantial ongoing inflammation caused by rash. #Rash and nonspecific skin eruption, with prior biopsy showing spongiotic dermatitis - Medical Complexity: chronic illness - not at treatment goal - Differential diagnosis includes allergic contact dermatitis, atopic dermatitis, or an eczematous drug reaction - Scheduled for patch testing on 08/14/[address] Latham - Complete oral prednisone taper as previously prescribed: 40 mg x 5 days, 20 mg x 5 days, then 10 mg x 5 days - Continue Protonix and vitamin D supplement while on prednisone - Discussed additional treatment options including topicals, systemic therapy, and phototherapy. Plan to start nbUVB to full body, order placed today - patient to call and schedule with convenient location (appointment numbers provided to patient today) - Discussed need to stop phototherapy 2 weeks prior to patch testing - Ok to continue topicals as needed - Advised patient to discuss hip pain with PCP Patient advised of potential adverse effects of any medications discussed above and what to do if patient experiences any of these, including contacting clinic. Answered all questions. Patient expressed understanding. Return to clinic: 1 month Marilu Harris MD PGY-3 Dermatology Resident June 20, 2024 1:47 PM The patient is seen and examined by Dr. James and the following reflects his/her service. Scribed by Mary Corral MA The documentation for this note was completed by Mary Corral MA acting as scribe for Ebonie James MD. June 20, 2024 1:10 PM. Resident: Marilu Harris MD I agree with the Chief Complaint, ROS, and Past Histories independently gathered by the clinical pit crew support worker and the remaining scribed note accurately describes my personal service to the patient. Attending Note I agree with the ROS, and Past Histories independently gathered by the clinical pit crew support worker and the remaining scribed note accurately describes my personal service to the patient. I evaluated the patient and personally participated in the gaming components. I agree with the resident/fellow's findings and plan as documented and have discussed the case and management of the patient's care with the resident/fellow. I agree with the resident's findings and plan. Ebonie James MD documented in this encounter [facility] 06-20-2024 Note HNO ID: [id number] Author: EBONIE JAMES MD Service: ? Author Type: Physician Type: Progress Notes Filed: 06/20/2024 14:36 Note Text: Est patient CHIEF COMPLAINT: Rash HISTORY OF PRESENT ILLNESS: Mirian Corrales is a 68 year old female here for evaluation of Rash. LCV: 05/29/2024 Provider: Dr. James Found to have: Rash -Biopsy results showing spongiotic dermatitis -Scheduled for patch testing -Prednisone taper 80 mg x 5 days 60 mg x 5 days 40 mg x 5 days 20 mg x 5 days 10 mg x 5 days -Continue protonix and vit D supplement Today patient reports rash varies daily. Seems to flare with certain foods (I.e., cheese, gluten). Today is a good day for the rash. Currently on day 1 of 40 mg of prednisone (new 60 mg prednisone taper was sent on 06/05/24). Personal Dermatologic History History of skin cancer: No History of actinic keratoses: No History of atypical nevi: No History of immunosuppression: Yes History of blistering sunburns: Yes FAMILY HISTORY: History of melanoma: Father and niece Past Medical History No past medical history on file. REVIEW OF SYSTEMS: Constitutional: Denies fever, chills, unintentional weight loss. Skin as per HPI Medications Current Outpatient Medications Medication Sig predniSONE (DELTASONE) 10 mg tablet Take 6 tablets by mouth once daily for 5 days, THEN 4 tablets once daily for 5 days, THEN 2 tablets once daily for 5 days, THEN 1 tablet once daily for 5 days. hydrOXYzine HCl (ATARAX) 25 mg tablet Hydroxyzine Hcl Active 25 MG PO Q6H April 08, 2024 12:00am triamcinolone acetonide (KENALOG) 0.1 % ointment Apply to affected area two times a day. white petrolatum (AQUAPHOR) 41 % topical ointment Apply to affected area as needed. pantoprazole DR (PROTONIX) 40 mg tablet Take 1 tablet by mouth daily at 6 am. Patient should start on May 11, 2024. fexofenadine (SHANTELLE) 60 mg tablet Take 60 mg by mouth once daily. Lactobacillus acidophilus (PROBIOTIC ORAL) Take 1 capsule by mouth once daily. Cholecalciferol, Vitamin D3, 25 mcg (1,000 unit) cap Take 1,000 Units by mouth once daily. No current facility-administered medications for this visit. PHYSICAL EXAM: General: awake, alert, no acute distress Neuropsych: appropriate mood and affect Eyes: Sclerae anicteric, without conjunctival injection, eyelids unremarkable Skin: Skin exam was performed today including the following: Skin exam performed including face, scalp, neck, chest, abdomen, back, arms, hands, nails, legs, feet, and buttocks. All are within normal limits except the following findings: - scattered excoriated erythematous papules coalescing into plaques over the trunk and bilateral upper and lower extremities ASSESSMENT AND PLAN: Mirian Corrales is a 68 year old female patient with a past medical history of: osteoporosis and varicose veins presented to the ED from derm clinic for rash with associated significant eosinophilia. Pt found to have lymphadenopathy on exam and reports recent weight loss. Reports rash is responsive to systemic steroids. Prior biopsy showed spongiotic dermatitis indicating possible contact dermatitis, atopic dermatitis, or an eczematous drug reaction. No indication of lymphoma or underlying cutaneous malignancy on pathology. Suspect lymphadenopathy could be explained by substantial ongoing inflammation caused by rash. #Rash and nonspecific skin eruption, with prior biopsy showing spongiotic dermatitis - Medical Complexity: chronic illness - not at treatment goal - Differential diagnosis includes allergic contact dermatitis, atopic dermatitis, or an eczematous drug reaction - Scheduled for patch testing on 08/14/[address] Latham - Complete oral prednisone taper as previously prescribed: 40 mg x 5 days, 20 mg x 5 days, then 10 mg x 5 days - Continue Protonix and vitamin D supplement while on prednisone - Discussed additional treatment options including topicals, systemic therapy, and phototherapy. Plan to start nbUVB to full body, order placed today - patient to call and schedule with convenient location (appointment numbers provided to patient today) - Discussed need to stop phototherapy 2 weeks prior to patch testing - Ok to continue topicals as needed - Advised patient to discuss hip pain with PCP Patient advised of potential adverse effects of any medications discussed above and what to do if patient experiences any of these, including contacting clinic. Answered all questions. Patient expressed understanding. Return to clinic: 1 month Marilu Harris MD PGY-3 Dermatology Resident June 20, 2024 1:47 PM The patient is seen and examined by Dr. James and the following reflects his/her service. Scribed by Mary Corral MA The documentation for this note was completed by Mary Corral MA acting as scribe for Ebonie James MD. June 20, 2024 1:10 PM. Resident: Marliu Harris MD (more content not included)... [facility] 05-29-2024 Instructions Cindy North MA - 05/29/2024 3:22 PM EDT Prednisone 80 mg x 5 days 60 mg x 5 days 40 mg x 5 days 20 mg x 5 days 10 mg x 5 days documented in this encounter [facility] 05-29-2024 Note HNO ID: [id number] Author: EBONIE JAMES MD Service: ? Author Type: Physician Type: Progress Notes Filed: 05/29/2024 15:56 Note Text: Est patient CHIEF COMPLAINT: Rash HISTORY OF PRESENT ILLNESS: Mirian Corrales is a 68 year old female here for evaluation of Rash. LCV: 05/05/2024 Provider: Dr James Found to have: Rash - Medical Complexity: undiagnosed new problem with uncertain prognosis This is a complicated case. DDX includes contact dermatitis vs hypereosinophilic syndrome vs DRESS vs infectious process vs malignancy. Given the complexity of the history and the severity of the clinical presentation, patient advised to go to [facility] ED for evaluation by our derm consult team. Today patient reports: Rash has worsened since being discharged. Rash flared up one week ago. Taking 2 and a half tablets of prednisone currently. Using triamcinolone ointment mixed with Aquaphor ointment. Taking atarax daily for itching. The last few days the atarax has not been helping. Here with her . Personal Dermatologic History History of skin cancer: no History of actinic keratoses: no History of atypical nevi: no History of immunosuppression: yes History of blistering sunburns: yes FAMILY HISTORY: History of melanoma: Father and niece Past Medical History No past medical history on file. REVIEW OF SYSTEMS: Constitutional: Denies fever, chills, unintentional weight loss. Skin as per HPI Medications Current Outpatient Medications Medication Sig predniSONE (DELTASONE) 10 mg tablet Take 6 tablets by mouth two times a day for 6 days, THEN 6 tablets once daily for 7 days, THEN two and a half tablet once daily for 7 days, THEN 1 tablet once daily for 7 days, THEN a half tablet once daily for 7 days. triamcinolone acetonide (KENALOG) 0.1 % ointment Apply to affected area two times a day. white petrolatum (AQUAPHOR) 41 % topical ointment Apply to affected area as needed. pantoprazole DR (PROTONIX) 40 mg tablet Take 1 tablet by mouth daily at 6 am. Patient should start on May 11, 2024. fexofenadine (SHANTELLE) 60 mg tablet Take 60 mg by mouth once daily. Lactobacillus acidophilus (PROBIOTIC ORAL) Take 1 capsule by mouth once daily. Cholecalciferol, Vitamin D3, 25 mcg (1,000 unit) cap Take 1,000 Units by mouth once daily. No current facility-administered medications for this visit. PHYSICAL EXAM: General: awake, alert, no acute distress Neuropsych: appropriate mood and affect Eyes: Sclerae anicteric, without conjunctival injection, eyelids unremarkable Skin: Skin exam was performed today including the following: Skin exam performed including face, scalp, neck, chest, abdomen, back, arms, hands, nails, legs. All are within normal limits except the following findings: Erythematous plaques of trunk and lateral neck ASSESSMENT AND PLAN: Mirian Corrales is a 68 year old female patient with a past medical history of: osteoporosis and varicose veins presented to the ED from derm clinic for rash with associated significant eosinophilia. Pt found to have lymphadenopathy on exam and reports recent weight loss. Reports rash is responsive to systemic steroids. Biopsy results showing spongiotic dermatitis indicating possible contact dermatitis, atopic dermatitis, or an eczematous drug reaction. No indication of lymphoma or underlying cutaneous malignancy on pathology. Suspect lymphadenopathy could be explained by substantial ongoing inflammation caused by rash. - Scheduled for patch testing - will speak with Dr. Latham for further insight/thoughts. For symptomatic relief: - Prednisone taper: 80 mg x 5 days 60 mg x 5 days 40 mg x 5 days 20 mg x 5 days 10 mg x 5 days - Continue Protonix and vit D supplement Recommended sunscreen SPF 30 or above and sun protective clothing. Patient advised of potential adverse effects of any medications discussed above and what to do if patient experiences any of these, including contacting clinic. Answered all questions. Patient expressed understanding. Return to clinic: has appt scheduled 06/28; will see what Dr. Latham says about patch testing --> appt isn't until July The patient is seen and examined by Dr. Ebonie James MD and the following reflects his/her service. Scribed by Cindy North LPN I agree with the Chief Complaint, ROS, and Past Histories independently gathered by the clinical pit crew support worker and the remaining scribed note accurately describes my personal service to the patient. Ebonie James MD [facility] 05-29-2024 History of Present illness Narrative Est patient CHIEF COMPLAINT: Rash HISTORY OF PRESENT ILLNESS: Mirian Corrales is a 68 year old female here for evaluation of Rash. LCV: 05/05/2024 Provider: Dr James Found to have: Rash - Medical Complexity: undiagnosed new problem with uncertain prognosis This is a complicated case. DDX includes contact dermatitis vs hypereosinophilic syndrome vs DRESS vs infectious process vs malignancy. Given the complexity of the history and the severity of the clinical presentation, patient advised to go to [facility] ED for evaluation by our derm consult team. Today patient reports: Rash has worsened since being discharged. Rash flared up one week ago. Taking 2 and a half tablets of prednisone currently. Using triamcinolone ointment mixed with Aquaphor ointment. Taking atarax daily for itching. The last few days the atarax has not been helping. Here with her . Personal Dermatologic History History of skin cancer: no History of actinic keratoses: no History of atypical nevi: no History of immunosuppression: yes History of blistering sunburns: yes FAMILY HISTORY: History of melanoma: Father and niece Past Medical History No past medical history on file. REVIEW OF SYSTEMS: Constitutional: Denies fever, chills, unintentional weight loss. Skin as per HPI Medications Current Outpatient Medications Medication Sig predniSONE (DELTASONE) 10 mg tablet Take 6 tablets by mouth two times a day for 6 days, THEN 6 tablets once daily for 7 days, THEN two and a half tablet once daily for 7 days, THEN 1 tablet once daily for 7 days, THEN a half tablet once daily for 7 days. triamcinolone acetonide (KENALOG) 0.1 % ointment Apply to affected area two times a day. white petrolatum (AQUAPHOR) 41 % topical ointment Apply to affected area as needed. pantoprazole DR (PROTONIX) 40 mg tablet Take 1 tablet by mouth daily at 6 am. Patient should start on May 11, 2024. fexofenadine (SHANTELLE) 60 mg tablet Take 60 mg by mouth once daily. Lactobacillus acidophilus (PROBIOTIC ORAL) Take 1 capsule by mouth once daily. Cholecalciferol, Vitamin D3, 25 mcg (1,000 unit) cap Take 1,000 Units by mouth once daily. No current facility-administered medications for this visit. PHYSICAL EXAM: General: awake, alert, no acute distress Neuropsych: appropriate mood and affect Eyes: Sclerae anicteric, without conjunctival injection, eyelids unremarkable Skin: Skin exam was performed today including the following: Skin exam performed including face, scalp, neck, chest, abdomen, back, arms, hands, nails, legs. All are within normal limits except the following findings: Erythematous plaques of trunk and lateral neck ASSESSMENT & PLAN: Mirian Corrales is a 68 year old female patient with a past medical history of: osteoporosis and varicose veins presented to the ED from derm clinic for rash with associated significant eosinophilia. Pt found to have lymphadenopathy on exam and reports recent weight loss. Reports rash is responsive to systemic steroids. Biopsy results showing spongiotic dermatitis indicating possible contact dermatitis, atopic dermatitis, or an eczematous drug reaction. No indication of lymphoma or underlying cutaneous malignancy on pathology. Suspect lymphadenopathy could be explained by substantial ongoing inflammation caused by rash. - Scheduled for patch testing - will speak with Dr. Latham for further insight/thoughts. For symptomatic relief: - Prednisone taper: 80 mg x 5 days 60 mg x 5 days 40 mg x 5 days 20 mg x 5 days 10 mg x 5 days - Continue Protonix and vit D supplement Recommended sunscreen SPF 30 or above and sun protective clothing. Patient advised of potential adverse effects of any medications discussed above and what to do if patient experiences any of these, including contacting clinic. Answered all questions. Patient expressed understanding. Return to clinic: has appt scheduled 06/28; will see what Dr. Latham says about patch testing --> appt isn't until July The patient is seen and examined by Dr. Ebonie James MD and the following reflects his/her service. Scribed by Cindy North LPN I agree with the Chief Complaint, ROS, and Past Histories independently gathered by the clinical pit crew support worker and the remaining scribed note accurately describes my personal service to the patient. Ebonie James MD documented in this encounter [facility] 05-29-2024 Telephone encounter Note Last seen 05/05/24 Return to clinic: advised to go to main campus ED for derm evaluation. Please advise? Senait Grubbs RN [facility] 05-29-2024 Miscellaneous Notes Last seen 05/05/24 Return to clinic: advised to go to [facility] ED for derm evaluation. Please advise? Senait Grubbs RN documented in this encounter [facility] 05-29-2024 Telephone encounter Note Patient sent [facility] message requesting a sooner appointment. Nurse called and offered 2:30 today at [place] with Dr. James. Patient accepted and appointment made. [facility] 05-29-2024 Miscellaneous Notes Patient sent [facility] message requesting a sooner appointment. Nurse called and offered 2:30 today at [place] with Dr. James. Patient accepted and appointment made. documented in this encounter [facility] 05-12-2024 Telephone encounter Note Outside pathology report forwarded to medical records to be scanned Dl Matthews LPN [facility] 05-12-2024 Miscellaneous Notes Outside pathology report forwarded to medical records to be scanned Dl Matthews LPN documented in this encounter [facility] 05-11-2024 Note HNO ID: [id number] Author: TUAN HUTCHISON, ? Service: Pharmacy Author Type: Boiler Coverer Helper Type: Plan of Care Filed: 05/11/2024 09:19 Note Text: PHARMACY BEDSIDE DELIVERY SERVICE Patient Name: Mirian Corrales The marked outpatient medications were Filled at: [facility] and delivered to the patient's bedside to patient Medication List START taking these medications pantoprazole DR 40 mg tablet Commonly known as: PROTONIX Take 1 tablet by mouth daily at 6 am. Patient should start on May 11, 2024. PATIENT REFUSED predniSONE 10 mg tablet Commonly known as: DELTASONE Take 6 tablets by mouth two times a day for 6 days, THEN 6 tablets once daily for 7 days, THEN two and a half tablet once daily for 7 days, THEN 1 tablet once daily for 7 days, THEN a half tablet once daily for 7 days. Start taking on: May 10, 2024 DELIVERED triamcinolone acetonide 0.1 % ointment Commonly known as: KeNALog Apply to affected area two times a day. DELIVERED white petrolatum 41 % topical ointment Commonly known as: AQUAPHOR Apply to affected area as needed. PATIENT REFUSED CHANGE how you take these medications hydrOXYzine HCl 25 mg tablet Commonly known as: ATARAX Take 1 tablet by mouth every 8 hours as needed for itching/rash for up to 7 days. What changed: medication strength how much to take when to take this DELIVERED CONTINUE taking these medications Cholecalciferol (Vitamin D3) 25 mcg (1,000 unit) Cap fexofenadine 60 mg tablet Commonly known as: SHANTELLE PROBIOTIC ORAL You might also be taking other medications not listed above. If you have questions about any of your other medications, talk to the person who prescribed them or your Primary Care Provider. STOP taking these medications sulfamethoxazole-trimethoprim 800-160 mg per tablet Commonly known as: BACTRIM DS Tuan Hutchison PAGER: [phone] May 11, 2024 9:18 AM [facility] 05-11-2024 Note HNO ID: [id number] Author: WALLY EGAN RPh Service: Pharmacy Author Type: Pharmacist Type: Plan of Care Filed: 05/11/2024 09:07 Note Text: DISCHARGE MEDICATION REVIEW BY PHARMACY Patient Name: Mirian Corrales Account #: Data Unavailable Admission Date: 05/05/2024 Date of Contact: May 11, 2024 Time of Contact: 9:07 AM Medication list was reviewed by a Pharmacist for drug interactions or drug related problems:Yes Below is a summary of pharmacist recommendations discussed with LIP: No Recommendations at this time from Discharge Medication List. Wally Egan RPh May 11, 2024 9:07 AM Pager: [phone] 05/11/2024 9:07 AM Medication List START taking these medications pantoprazole DR 40 mg tablet Commonly known as: PROTONIX Take 1 tablet by mouth daily at 6 am. Patient should start on May 11, 2024. predniSONE 10 mg tablet Commonly known as: DELTASONE Take 6 tablets by mouth two times a day for 6 days, THEN 6 tablets once daily for 7 days, THEN two and a half tablet once daily for 7 days, THEN 1 tablet once daily for 7 days, THEN a half tablet once daily for 7 days. Start taking on: May 10, 2024 triamcinolone acetonide 0.1 % ointment Commonly known as: KeNALog Apply to affected area two times a day. white petrolatum 41 % topical ointment Commonly known as: AQUAPHOR Apply to affected area as needed. CHANGE how you take these medications hydrOXYzine HCl 25 mg tablet Commonly known as: ATARAX Take 1 tablet by mouth every 8 hours as needed for itching/rash for up to 7 days. What changed: medication strength how much to take when to take this CONTINUE taking these medications Cholecalciferol (Vitamin D3) 25 mcg (1,000 unit) Cap fexofenadine 60 mg tablet Commonly known as: SHANTELLE PROBIOTIC ORAL STOP taking these medications sulfamethoxazole-trimethoprim 800-160 mg per tablet Commonly known as: BACTRIM DS Where to Get Your Medications These medications were sent to [facility] [address] [place] [address] Hours: Wednesday-Wednesday 7am-8pm, Wednesday, Wednesday and Holidays 9am-5pm hydrOXYzine HCl [address] 40 mg tablet predniSONE 10 mg tablet triamcinolone acetonide 0.1 % ointment white petrolatum 41 % topical ointment [facility] 05-10-2024 Note HNO ID: [id number] Author: TUAN HUTCHISON, ? Service: Pharmacy Author Type: Boiler Coverer Helper Type: Plan of Care Filed: 05/10/2024 14:14 Note Text: Insurance investigation completed Patient has active prescription insurance: Yes - Patient's insurance is in-network with [facility] Insurance loaded into [place]: Yes Test claim was completed to verify insurance is active: Successful Any questions, please contact your medication school community relations coordinator. Pager #: [phone] [facility] 05-10-2024 Note HNO ID: [id number] Author: TOÑITO HO DO Service: Infectious Disease Author Type: Physician Type: Plan of Care Filed: 05/10/2024 09:00 Note Text: ID plan of care Strongy IgG neg, skin biopsy most consistent with hypersensitivity dermatitis. Dermatology on board, [phone]. ID will sign off. Thank you for allowing us to participate in the care of this patient. Please call with questions and concerns. Toñito Ho DO, PhD Staff Physician Infectious Disease pager [facility] 05-10-2024 Note HNO ID: [id number] Author: HOMERO PETTY MD Service: General Internal Medicine Author Type: ? Type: Progress Notes Filed: 05/10/2024 13:38 Note Text: Attestation signed by Homero Petty MD at 05/10/2024 1:38 PM TEACHING PHYSICIAN NOTE OF PERSONAL INVOLVEMENT IN CARE: I have interviewed the patient and updated the medical student's PFS history, and ROS as necessary. I have re-performed the HPI, Physical Examination, Assessment and Plan as noted below. No change to subjective and objective findings. I agree with the impression and plan as outlined. Plan of care discussed with: Provider, RN, Patient. Anticipate discharge tomorrow if oral steroids tolerated and continued trend towards improvement. SIGNATURE: Homero Petty MD [facility] PROGRESS NOTE 7am to 5pm/Weekends 7am to 3pm: Please page Renea Davalos 5pm to 7am/Weekends 3pm to 7am: Please page on-call [phone] (Jose) Brief Plan for Today - Transition to PO steroids - Discharge planning Interval Events - NAEON - Patient reports that pruritus and erythema have decreased. She experienced 2 episodes of pruritus yesterday. She notes that steroids have led to improvement. - Transitioning to oral steroids today, will monitor for GI symptoms. Discharge likely tomorrow. Medications Current Facility-Administered Medications Medication Dose Route Frequency polyethylene glycol 3350 17 g packet 17 g ORAL/FEEDING TUBE BID senna 8.6 mg tab(s) (SENOKOT) 8.6 mg ORAL BID methylPREDNISolone sod succinate(PF) 50 mg injection (SOLU-Medrol) 50 mg INTRAVENOUS q 12 H white petrolatum 41 % topical ointment (AQUAPHOR) TOPICAL PRN hydrOXYzine HCl 25 mg tab(s) (ATARAX) 25 mg ORAL q 8 H PRN diphenhydrAMINE 50 mg injection (BENADRYL) 50 mg INTRAVENOUS q 6 H PRN LORazepam 0.5 mg injection (ATIVAN) 0.5 mg INTRAVENOUS q 6 H PRN triamcinolone acetonide 0.1 % (KeNALog) TOPICAL BID enoxaparin 40 mg injection (LOVENOX) 40 mg SUBCUTANEOUS q 24 HR NaCl 0.9% iv flush bag 20 mL INTRAVENOUS PRN cholecalciferol 1,000 Units tab(s) (VITAMIN D3) 1,000 Units ORAL DAILY Physical Exam BP 102/56 Pulse 76 Temp 36.8 ?C (98.2 ?F) (Oral) Resp 18 Wt 59 kg (130 lb) SpO2 98% BMI 20.98 kg/m? General: Awake and alert, in acute distress 2/2 pruritus HEENT: Normocephalic and atraumatic. Extraocular motions grossly intact. Respiratory: Normal work of breathing on RA. Extremities: Warm and dry. Skin: Diffuse elevated erythematous lesions present diffusely over body surface, decreased in comparison to yesterday Neurological: No gross focal neurological deficits present. Fluid Balance Intake/Output Summary (Last 24 hours) at 05/10/2024 0804 Last data filed at 05/10/2024 0616 Gross per 24 hour Intake 720 ml Output 0 ml Net 720 ml Labs CBC: Recent Labs 05/10/24 0705 05/09/24 0828 05/08/24 0932 05/07/24 0647 05/06/24 0754 05/05/24 1620 05/05/24 1209 05/03/24 1250 WBC 11.74* 5.32 11.68* 11.09* 11.32* 11.70* 12.89* 11.35* HB 10.3* 11.7 12.3 12.4 12.9 13.6 12.8 11.7 HCT 32.0* 35.4* 37.9 37.7 40.6 42.9 39.7 36.0 PLT 349 415* 437* 410* 440* 470* 499* 365 MCV 94.4 90.5 92.4 94.5 94.0 94.9 93.9 94.2 RDWCV 14.9 14.8 14.8 14.4 14.6 14.4 14.5 14.6 NEUTP 80.0 -- 37.8 36.5 36.8 57.0 73.9 51.5 ABSNEUT 9.40* -- 4.41 4.05 4.17 6.67 9.53* 5.84 LYMPHP 11.7 -- 15.2 11.2 14.0 15.0 7.8 11.7 MONOP 7.6 -- 7.4 8.0 8.0 7.5 5.3 8.0 EODINP 0.1 -- 39.0 43.4 40.3 19.2 12.0 27.3 COAG: No results for input(s): APTT , INR in the last 168 hours. BMP: Recent Labs 05/10/24 0705 05/09/24 0827 05/08/24 0932 05/07/24 0646 05/06/24 0754 05/05/24 1620 05/05/24 1209 05/03/24 1250 GLUC 137* 123* 94 88 97 117* 111* 92 NA 140 138 141 138 138 134* 135* 142 K 4.3 4.0 3.9 4.3 4.3 4.7 4.4 4.0 CHLOR 107 104 108* 106 107 104 104 109* CO2 25 24 23 22 20* 22 22 27 ANION 8 10 10 10 11 8 9 6* BUN 12 14 12 10 14 14 13 15 CREAT 0.58 0.57* 0.70 0.67 0.72 0.76 0.79 0.74 CHEM: Recent Labs 05/10/24 0705 05/09/24 0827 05/08/24 0932 05/07/24 0646 05/06/24 0754 05/05/24 1620 05/05/24 1209 05/03/24 1250 ALB 3.1* 3.3* 3.0* 3.1* 3.0* 3.8* 3.6* 3.8* TPROT -- -- -- -- -- 6.7 6.3 6.9 CA 8.6 8.9 8.3* 8.5 8.4* 9.0 9.0 9.4 HEPATIC: Recent Labs 05/05/24 1620 05/05/24 1209 05/03/24 1250 ALKPHOS 82 76 68 ALT 16 16 14 AST 18 20 19 TBILI 0.2 0.3 0.2 URINALYSIS:No results for input(s): PH , SPGR , UGLUC , UBILI , UKET , UHB , UPROT , UROBIL , UWBC , SSA in the last 168 hours. Invalid input(s): NITR CARDIAC: No results for input(s): CKTEST , CKMB , CKMBP , TROPT , PBNP in the last [address] chest 05/05 No acute intrathoracic findings. Mediastinal, bilateral axillary, and subpectoral/intramammary (more content not included)... [facility] 05-09-2024 Telephone encounter Note Opened in error [facility] Work Phone: 05-09-2024 Miscellaneous Notes Opened in error documented in this encounter [facility] 05-09-2024 Telephone encounter Note Please schedule patient for hospital follow up appt for rash in a resident continuity clinic in [address]. [address] patch test order for appt later this fall. [facility] 05-09-2024 Miscellaneous Notes Please schedule patient for hospital follow up appt for rash in a resident continuity clinic in [address] patch test order for appt later this fall. documented in this encounter [facility] 05-09-2024 Note HNO ID: [id number] Author: ?, ?, ? Service: Care Management Author Type: ? Type: Care Mgt Progress Note Filed: 05/09/2024 15:27 Note Text: CARE MANAGEMENT PROGRESS NOTE SERVICE DATE: 05/09/2024 SERVICE TIME: 1:15PM LOS: 4 days IMM Follow Up Copy Given: Yes Copy given to:: Patient Method: In Person SIGNATURE: Felicita Hilario CMA PATIENT NAME: Mirian Corrales DATE: May 09, 2024 TIME: 3:26 PM PAGER/CONTACT #: [phone] [facility] 05-09-2024 Note HNO ID: [id number] Author: VIOLETTA FARMER RN Service: Care Management Author Type: Registered Nurse Type: Care Mgt Initial Assessment Filed: 05/09/2024 13:18 Note Text: CARE MANAGEMENT ASSESSMENT NOTE SERVICE DATE: 05/09/2024 SERVICE TIME: 1:16 PM LOS: 4 days DISCHARGE PLAN Discharge Planning Participant(s): Caregiver Patient/Family Comments: Per update from Dr. Davalos, pt will not be getting biopsy. Currently working to figuring out PO steroid plan with derm, but possibly tomorrow vs pending steroid planning per derm Anticipated Discharge Arrangement: Home with Self Care Anticipated Discharge Date: Within 48 hours DISCHARGE TRANSPORTATION Patient has been informed that discharge time is 12pm on day of discharge. Transportation Arrangements: Car Transportation Arrangements: Prep Manager Name: family IMM tasked to MACHINE INSTALLER. Chart reviewed. No PT/OT consults ordered, 6-click score of 24, on Room Air, not on any notable IV meds at this time. Dc transport by family. No needs noted at this time. CM to re-screen on 03/13/24, unless pt to dc prior. This patient has been screened for Care Management Transitional Planning Services. At this time, it does not appear this patient will require transition planning services. Should this change, and the patient require transition planning services during this admission, please call [phone]. SIGNATURE: Violetta Farmer RN PATIENT NAME: Mirian Corrales DATE: May 09, 2024 TIME: 1:16 PM PAGER/CONTACT #: [phone] [facility] 05-09-2024 Note HNO ID: [id number] Author: HOMERO PETTY MD Service: General Internal Medicine Author Type: ? Type: Progress Notes Filed: 05/09/2024 13:32 Note Text: Attestation signed by Homero Petty MD at 05/09/2024 1:32 PM [facility] STAFF PHYSICIAN NOTE OF PERSONAL INVOLVEMENT IN CARE I have reviewed the note obtained and documented by the resident and I personally participated in the gaming components. I have discussed the case and management of the patient's care. The following comments revise or confirm relevant gaming components of their note. I agree with the impression and plan as outlined. Skin biopsy noted, derm recs appreciated -- concern for cutaneous lymphoma much less likely Continue management of severe eczema SIGNATURE: Homero Petty MD [facility] PROGRESS NOTE 7am to 5pm/Weekends 7am to 3pm: Please page Renea Davalos 5pm to 7am/Weekends 3pm to 7am: Please page on-call [phone] (Jose) Brief Plan for Today - IV methylprednisolone and topical triamcinolone 0.1% cream for eczematous dermatitis - Discuss home med regimen with Dermatology Interval Events - MARY ANNEON - Patient reports that full body pruritus is unchanged from yesterday. However, she notes that the steroids have provided her relief. She notes that rash feels smoother than before, but erythema is unchanged. She is also complaining of dry skin on face. Discussed triggers of eczema with patient. Medications Current Facility-Administered Medications Medication Dose Route Frequency white petrolatum 41 % topical ointment (AQUAPHOR) TOPICAL PRN methylPREDNISolone sod succinate(PF) 50 mg injection (SOLU-Medrol) 50 mg INTRAVENOUS q 12 H hydrOXYzine HCl 25 mg tab(s) (ATARAX) 25 mg ORAL q 8 H PRN diphenhydrAMINE 50 mg injection (BENADRYL) 50 mg INTRAVENOUS q 6 H PRN LORazepam 0.5 mg injection (ATIVAN) 0.5 mg INTRAVENOUS q 6 H PRN triamcinolone acetonide 0.1 % (KeNALog) TOPICAL BID enoxaparin 40 mg injection (LOVENOX) 40 mg SUBCUTANEOUS q 24 HR NaCl 0.9% iv flush bag 20 mL INTRAVENOUS PRN cholecalciferol 1,000 Units tab(s) (VITAMIN D3) 1,000 Units ORAL DAILY Physical Exam BP 99/51 Pulse 87 Temp 36.4 ?C (97.5 ?F) (Oral) Resp 17 Wt 59 kg (130 lb) SpO2 98% BMI 20.98 kg/m? General: Awake and alert, in acute distress 2/2 pruritus HEENT: Normocephalic and atraumatic. Extraocular motions grossly intact. Respiratory: Normal work of breathing on RA. Extremities: Warm and dry. Skin: Diffuse elevated erythematous lesions present diffusely over body surface Neurological: No gross focal neurological deficits present. Fluid Balance Intake/Output Summary (Last 24 hours) at 05/09/2024 0822 Last data filed at 05/08/2024 1514 Gross per 24 hour Intake 690 ml Output -- Net 690 ml Labs CBC: Recent Labs 05/09/24 0828 05/08/24 0932 05/07/24 0647 05/06/24 0754 05/05/24 1620 05/05/24 1209 05/03/24 1250 WBC 5.32 11.68* 11.09* 11.32* 11.70* 12.89* 11.35* HB 11.7 12.3 12.4 12.9 13.6 12.8 11.7 HCT 35.4* 37.9 37.7 40.6 42.9 39.7 36.0 PLT 415* 437* 410* 440* 470* 499* 365 MCV 90.5 92.4 94.5 94.0 94.9 93.9 94.2 RDWCV 14.8 14.8 14.4 14.6 14.4 14.5 14.6 NEUTP -- 37.8 36.5 36.8 57.0 73.9 51.5 ABSNEUT -- 4.41 4.05 4.17 6.67 9.53* 5.84 LYMPHP -- 15.2 11.2 14.0 15.0 7.8 11.7 MONOP -- 7.4 8.0 8.0 7.5 5.3 8.0 EODINP -- 39.0 43.4 40.3 19.2 12.0 27.3 COAG: No results for input(s): APTT , INR in the last 168 hours. BMP: Recent Labs 05/09/24 0827 05/08/24 0932 05/07/24 0646 05/06/24 0754 05/05/24 1620 05/05/24 1209 05/03/24 1250 GLUC 123* 94 88 97 117* 111* 92 NA 138 141 138 138 134* 135* 142 K 4.0 3.9 4.3 4.3 4.7 4.4 4.0 CHLOR 104 108* 106 107 104 104 109* CO2 24 23 22 20* 22 22 27 ANION 10 10 10 11 8 9 6* BUN 14 12 10 14 14 13 15 CREAT 0.57* 0.70 0.67 0.72 0.76 0.79 0.74 CHEM: Recent Labs 05/09/24 0827 05/08/24 0932 05/07/24 0646 05/06/24 0754 05/05/24 1620 05/05/24 1209 05/03/24 1250 ALB 3.3* 3.0* 3.1* 3.0* 3.8* 3.6* 3.8* TPROT -- -- -- -- 6.7 6.3 6.9 CA 8.9 8.3* 8.5 8.4* 9.0 9.0 9.4 HEPATIC: Recent Labs 05/05/24 1620 05/05/24 1209 05/03/24 1250 ALKPHOS 82 76 68 ALT 16 16 14 AST 18 20 19 TBILI 0.2 0.3 0.2 URINALYSIS:No results for input(s): PH , SPGR , UGLUC , UBILI , UKET , UHB , UPROT , UROBIL , UWBC , SSA in the last 168 hours. Invalid input(s): NITR CARDIAC: No results for input(s): CKTEST , CKMB , CKMBP , TROPT , PBNP in the last [address] chest 05/05 No acute intrathoracic findings. Mediastinal, bilateral axillary, and subpectoral/intramammary lymphadenopathy concerning for lymphoproliferative disorder/malignancy. Recommend tissue sampling for further evaluation. CT abd pelvis 05/05 Indeterminant bilatera (more content not included)... [facility] 05-08-2024 Note HNO ID: [id number] Author: HOMERO PETTY MD Service: General Internal Medicine Author Type: Resident Type: Progress Notes Filed: 05/08/2024 13:13 Note Text: Attestation signed by Homero Petty MD at 05/08/2024 1:13 PM [facility] STAFF PHYSICIAN NOTE OF PERSONAL INVOLVEMENT IN CARE I have reviewed the note obtained and documented by the resident and I personally participated in the gaming components. I have discussed the case and management of the patient's care. The following comments revise or confirm relevant gaming components of their note. I agree with the impression and plan as outlined. Team had productive discussion about rationale behind biopsy We highlighted how it is essential to arrive at a diagnosis and potential therapies She will be giving it thought SIGNATURE: Homero Petty MD [facility] PROGRESS NOTE Weekdays 7am to 5pm/Weekends 7am to 3pm: Please page Alma Cooley DO Weekdays 5pm to 7am/Weekends 3pm to 7am: Please page on-call [phone] (Jose) Brief Plan for Today - f/u skin biopsy results - discuss with patient medical necessity of lymph biopsy Interval Events - NAEON - VSS, saturating well 99% on RA (05/06 saturating 85% on RA) - 300 cc UOP - no new labs this AM - Patient reports improved full body pruritus from yesterday. Complains of unresolved skin rash, defers lymph node biopsy at this time Medications Current Facility-Administered Medications Medication Dose Route Frequency hydrOXYzine HCl 25 mg tab(s) (ATARAX) 25 mg ORAL q 8 H PRN diphenhydrAMINE 50 mg injection (BENADRYL) 50 mg INTRAVENOUS q 6 H PRN LORazepam 0.5 mg injection (ATIVAN) 0.5 mg INTRAVENOUS q 6 H PRN triamcinolone acetonide 0.1 % (KeNALog) TOPICAL BID enoxaparin 40 mg injection (LOVENOX) 40 mg SUBCUTANEOUS q 24 HR white petrolatum - mineral oil cream (EUCERIN CREAM) TOPICAL PRN NaCl 0.9% iv flush bag 20 mL INTRAVENOUS PRN cholecalciferol 1,000 Units tab(s) (VITAMIN D3) 1,000 Units ORAL DAILY Physical Exam BP 108/52 Pulse 93 Temp 37 ?C (98.6 ?F) (Oral) Resp 18 Wt 59 kg (130 lb) SpO2 99% BMI 20.98 kg/m? General: Awake and alert, in acute distress 2/2 pruritus HEENT: Normocephalic and atraumatic. Extraocular motions grossly intact. Respiratory: Normal work of breathing on RA. Extremities: Warm and dry. Skin: Diffuse elevated erythematous lesions present diffusely over body surface Neurological: No gross focal neurological deficits present. Fluid Balance Intake/Output Summary (Last 24 hours) at 05/08/2024 0719 Last data filed at 05/07/2024 1434 Gross per 24 hour Intake 330 ml Output -- Net 330 ml Labs CBC: Recent Labs 05/07/24 0647 05/06/24 0754 05/05/24 1620 05/05/24 1209 05/03/24 1250 WBC 11.09* 11.32* 11.70* 12.89* 11.35* HB 12.4 12.9 13.6 12.8 11.7 HCT 37.7 40.6 42.9 39.7 36.0 PLT 410* 440* 470* 499* 365 MCV 94.5 94.0 94.9 93.9 94.2 RDWCV 14.4 14.6 14.4 14.5 14.6 NEUTP 36.5 36.8 57.0 73.9 51.5 ABSNEUT 4.05 4.17 6.67 9.53* 5.84 LYMPHP 11.2 14.0 15.0 7.8 11.7 MONOP 8.0 8.0 7.5 5.3 8.0 EODINP 43.4 40.3 19.2 12.0 27.3 COAG: No results for input(s): APTT , INR in the last 168 hours. BMP: Recent Labs 05/07/24 0646 05/06/24 0754 05/05/24 1620 05/05/24 1209 05/03/24 1250 GLUC 88 97 117* 111* 92 NA 138 138 134* 135* 142 K 4.3 4.3 4.7 4.4 4.0 CHLOR 106 107 104 104 109* CO2 22 20* 22 22 27 ANION 10 11 8 9 6* BUN 10 14 14 13 15 CREAT 0.67 0.72 0.76 0.79 0.74 CHEM: Recent Labs 05/07/24 0646 05/06/24 0754 05/05/24 1620 05/05/24 1209 05/03/24 1250 ALB 3.1* 3.0* 3.8* 3.6* 3.8* TPROT -- -- 6.7 6.3 6.9 CA 8.5 8.4* 9.0 9.0 9.4 HEPATIC: Recent Labs 05/05/24 1620 05/05/24 1209 05/03/24 1250 ALKPHOS 82 76 68 ALT 16 16 14 AST 18 20 19 TBILI 0.2 0.3 0.2 URINALYSIS:No results for input(s): PH , SPGR , UGLUC , UBILI , UKET , UHB , UPROT , UROBIL , UWBC , SSA in the last 168 hours. Invalid input(s): NITR CARDIAC: No results for input(s): CKTEST , CKMB , CKMBP , TROPT , PBNP in the last 168 hours. Imaging Skin punch biopsy 05/05: in process CT chest 05/05 No acute intrathoracic findings. Mediastinal, bilateral axillary, and subpectoral/intramammary lymphadenopathy concerning for lymphoproliferative disorder/malignancy. Recommend tissue sampling for further evaluation. CT abd pelvis 05/05 Indeterminant bilateral enlarged external iliac lymphadenopathy, consider further evaluation with tissue sampling on a non-emergent basis. No acute findings in the abdomen or pelvis. Assessment and Plan Mirian Corrales is a 68 year old female patient with a past medical history of: osteoporosis and varicose veins presented to the ED from derm clinic for rash. #Diffuse skin rash Erythematous plaques a (more content not included)... [facility] 05-07-2024 Note HNO ID: [id number] Author: HOMERO PETTY MD Service: General Internal Medicine Author Type: Resident Type: Progress Notes Filed: 05/07/2024 13:43 Note Text: Attestation signed by Homero Petty MD at 05/07/2024 1:43 PM [facility] STAFF PHYSICIAN NOTE OF PERSONAL INVOLVEMENT IN CARE I have reviewed the note obtained and documented by the resident and I personally participated in the gaming components. I have discussed the case and management of the patient's care. The following comments revise or confirm relevant gaming components of their note. I agree with the impression and plan as outlined. SIGNATURE: Homero Petty MD [facility] PROGRESS NOTE Weekdays 7am to 5pm/Weekends 7am to 3pm: Please page Renea Davalos MD Weekdays 5pm to 7am/Weekends 3pm to 7am: Please page on-call [phone] (Amite) Brief Plan for Today - f/u skin biopsy results - optimize pruritus management with atarax, IV benadryl, IV ativan, and triamcinolone cream Interval Events - NAEON - VSS, briefly saturating 85% on RA however per chart sats improved - 300 cc UOP - no new labs this AM - Patient reports severe full body pruritus much worsened from yesterday Medications Current Facility-Administered Medications Medication Dose Route Frequency enoxaparin 40 mg injection (LOVENOX) 40 mg SUBCUTANEOUS q 24 HR white petrolatum - mineral oil cream (EUCERIN CREAM) TOPICAL PRN NaCl 0.9% iv flush bag 20 mL INTRAVENOUS PRN hydrOXYzine HCl 10 mg tab(s) (ATARAX) 10 mg ORAL AT BEDTIME PRN cholecalciferol 1,000 Units tab(s) (VITAMIN D3) 1,000 Units ORAL DAILY Physical Exam BP 112/61 Pulse 86 Temp 36.5 ?C (97.7 ?F) (Oral) Resp 16 Wt 59 kg (130 lb) SpO2 97% BMI 20.98 kg/m? General: Awake and alert, in acute distress 2/2 pruritus HEENT: Normocephalic and atraumatic. Extraocular motions grossly intact. Respiratory: Normal work of breathing on RA. Extremities: Warm and dry. Skin: Diffuse elevated erythematous lesions present diffusely over body surface Neurological: No gross focal neurological deficits present. Fluid Balance Intake/Output Summary (Last 24 hours) at 05/07/2024 0641 Last data filed at 05/06/2024 1915 Gross per 24 hour Intake 600 ml Output 300 ml Net 300 ml Labs CBC: Recent Labs 05/06/2475305/05/24161905/05/24 12005/03/24 1250 WBC 11.32* 11.70* 12.89* 11.35* HB 12.9 13.6 12.8 11.7 HCT 40.6 42.9 39.7 36.0 PLT 440* 470* 499* 365 MCV 94.0 94.9 93.9 94.2 RDWCV 14.6 14.4 14.5 14.6 NEUTP 36.8 57.0 73.9 51.5 ABSNEUT 4.17 6.67 9.53* 5.84 LYMPHP 14.0 15.0 7.8 11.7 MONOP 8.0 7.5 5.3 8.0 EODINP 40.3 19.2 12.0 27.3 COAG: No results for input(s): APTT , INR in the last 168 hours. BMP: Recent Labs 05/06/2475305/05/24161905/05/24 12005/03/24 1250 GLUC 97 117* 111* 92 NA 138 134* 135* 142 K 4.3 4.7 4.4 4.0 CHLOR 107 104 104 109* CO2 20* 22 22 27 ANION 11 8 9 6* BUN 14 14 13 15 CREAT 0.72 0.76 0.79 0.74 CHEM: Recent Labs 05/06/2475305/05/24 1620 05/05/24 12005/03/24 1250 ALB 3.0* 3.8* 3.6* 3.8* TPROT -- 6.7 6.3 6.9 CA 8.4* 9.0 9.0 9.4 HEPATIC: Recent Labs 05/05/24161905/05/24 1209 05/03/24 1250 ALKPHOS 82 76 68 ALT 16 16 14 AST 18 20 19 TBILI 0.2 0.3 0.2 URINALYSIS:No results for input(s): PH , SPGR , UGLUC , UBILI , UKET , UHB , UPROT , UROBIL , UWBC , SSA in the last 168 hours. Invalid input(s): NITR CARDIAC: No results for input(s): CKTEST , CKMB , CKMBP , TROPT , PBNP in the last 168 hours. Imaging Skin punch biopsy 05/05: in process CT chest 05/05 No acute intrathoracic findings. Mediastinal, bilateral axillary, and subpectoral/intramammary lymphadenopathy concerning for lymphoproliferative disorder/malignancy. Recommend tissue sampling for further evaluation. CT abd pelvis 05/05 Indeterminant bilateral enlarged external iliac lymphadenopathy, consider further evaluation with tissue sampling on a non-emergent basis. No acute findings in the abdomen or pelvis. Assessment and Plan Mirian Corrales is a 68 year old female patient with a past medical history of: osteoporosis and varicose veins presented to the ED from derm clinic for rash. #Diffuse skin rash Erythematous plaques all over her body with itching. Has skin lesions along lines of itching (dermatographia?) Recent travel in February to [facility], and no H/o sick contacts, or recent Abx administration, no H/o hepatitis Eosinophilia (05/05: 19.2% with AEC of 2.25) D/d: DRESS syndrome, Hypereosinophilic syndrome, Leukemia/ Lymphoma with associated eosinophilia, Autoimmune bullous disorder such as urticarial BP Suspicion for DRESS is low as no recent drug exposures. Only exposure was short course of augmentin 4 months ago. Importantly - p (more content not included)... [facility] 05-06-2024 Note HNO ID: [id number] Author: PATRICIA RODRIGEZ MD Service: Rheumatology Author Type: Fellow Type: Plan of Care Filed: 05/06/2024 15:27 Note Text: Rheumatology consulted for eosinophilia, diffuse body rash of unclear etiology, weight loss and lymphadenopathy. Normal inflammatory markers noted. High concerns for malignancy per CT reports. Dermatology also concerned for a spectrum of HES. No features of EGPA such as sinusitis, asthma. Also atypical for EGPA presentation. Recommend paraproteinemia workup. Check IgG, IgM, IgA and IgG subsets including IgG4. Also check UA with protein creatinine ratio. We will follow studies peripherally. [facility] 05-06-2024 Note HNO ID: [id number] Author: NOTE, INTERFACE, ? Service: ? Author Type: ? Type: Progress Notes Filed: 05/06/2024 03:04 Note Text: Epic Scheduled Downtime: 05/06/2024 1:02:00 AM to 05/06/2024 2:58:00 AM [facility] 05-05-2024 Note HNO ID: [id number] Author: EVELIO SCHROEDER RT(R) Service: ? Author Type: Packing Line Operator Type: Progress Notes Filed: 05/05/2024 20:32 Note Text: Radiology Service Progress Note PATIENT NAME: Mirian Corrales DATE OF SERVICE: May 05, 2024 TIME: 8:32 PM PATIENT IDENTITY VERIFICATION COMPLETED USING TWO (2) IDENTIFIERS: Name and Date of confirmed by patient verbally and Name and Date of confirmed by identification band. FALL SCREENING: Has the patient had 2 falls in the last year or 1 fall with injury or currently using an Ambulatory Assistive Device (Walker, Cane, Wheelchair, Crutches, etc.)? Emergency Room Patient: Screened in ED PATIENT GENDER DATA: Female. status: : No status: NO. PATIENT RELEVANT IMPLANT DATA REVIEWED: Yes PATIENT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 Internal Medicine 04/28/24 Conner Stanley DO [address] [place] [address] Referring Internal Medicine 05/04/22 Kierra Posadas APRN [address] [place] [address] Referring Internal Medicine 04/18/24 Wine Bottle Inspector Relationship Specialty Start Date End Date Conner Stanley DO [address] [place] [address] PCP - General Internal Medicine 04/28/24 Conner Stanley DO [address] [place] [address] Referring Internal Medicine 05/04/22 Kierra Posadas APRN [address] [place] [address] Referring Internal Medicine 04/18/24 Wine Bottle Inspector Relationship Specialty Start Date End Date Conner Stanley DO [address] [place] [address] PCP - General Internal Medicine 04/28/24 Conner Stanley DO [address] [place] [address] Referring Internal Medicine 05/04/22 Kierra Posadas APRN [address] [place] [address] Referring Internal Medicine 04/18/24 Wine Bottle Inspector Relationship Specialty Start Date End Date Conner Stanley DO [address] [place] [address] PCP - General Internal Medicine 04/28/24 Conner Stanley DO [address] [place] [address] Referring Internal Medicine 05/04/22 Kierra Posadas APRN [address] [place] [address] Referring Internal Medicine 04/18/24 Wine Bottle Inspector Relationship Specialty Start Date End Date Conner Stanley DO [address] [place] [address] PCP - General Internal Medicine 04/28/24 Conner Stanley DO [address] [place] [address] Referring Internal Medicine 05/04/22 Kierra Posadas APRN [address] [place] [address] Referring Internal Medicine 04/18/24 Wine Bottle Inspector Relationship Specialty Start Date End Date Conner Stanley DO [address] [place] [address] PCP - General Internal Medicine 04/28/24 Conner Stanley DO [address] [place] [address] Referring Internal Medicine 05/04/22 Kierra Posadas APRN [address] [place] [address] Referring Internal Medicine 04/18/24 Wine Bottle Inspector Relationship Specialty Start Date End Date Conner Stanley DO [address] [place] [address] PCP - General Internal Medicine 04/28/24 Conner Stanley DO [address] [place] [address] Referring Internal Medicine 05/04/22 Kierra Posadas APRN [address] [place] [address] Referring Internal Medicine 04/18/24 Wine Bottle Inspector Relationship Specialty Start Date End Date Conner Stanley DO [address] [place] [address] PCP - General Internal Medicine 04/28/24 Conner Stanley DO [address] [place] [address] Referring Internal Medicine 05/04/22 Kierra Posadas APRN [address] [place] [address] Referring Internal Medicine 04/18/24 Wine Bottle Inspector Relationship Specialty Start Date End Date Conner Stanley DO [address] [place] [address] PCP - General Internal Medicine 04/28/24 Conner Stanley DO [address] [place] [address] Referring Internal Medicine 05/04/22 Kierra Posadas APRN [address] [place] [address] Referring Internal Medicine 04/18/24 Wine Bottle Inspector Relationship Specialty Start Date End Date Conner Stanley DO [address] [place] [address] PCP - General Internal Medicine 04/28/24 Conner Stanley DO [address] [address] [place] [address] Referring Internal Medicine 05/04/22 Kierra Posadas APRN [address] [place] [address] Referring Internal Medicine 04/18/24 Wine Bottle Inspector Relationship Specialty Start Date End Date Conner Stanley DO [address] [place] [address] PCP - General Internal Medicine 04/28/24 Conner Stanley DO [address] [place] [address] Referring Internal Medicine 05/04/22 Kierra Posadas APRN [address] [place] [address] Referring Internal Medicine 04/18/24 Wine Bottle Inspector Relationship Specialty Start Date End Date Conner Stanley DO [address] [place] [address] PCP - General Internal Medicine 01/26/23 Conner Stanley DO [address] [place] [address] PCP - ACO Reach 11/19/23 Wine Bottle Inspector Relationship Specialty Start Date End Date Conner Stanley DO [address] [place] [address] PCP - General Internal Medicine 01/26/23 Conner Stanley DO [address] [place] [address] PCP - ACO Reach 11/19/23 Wine Bottle Inspector Relationship Specialty Start Date End Date Conner Stanley DO [address] [place] [address] PCP - General Internal Medicine 04/28/24 Conner Stanley DO [address] [place] [address] Referring Internal Medicine 05/04/22 Kierra Posadas APRN [address] [place] [address] Referring Internal Medicine 04/18/24 Wine Bottle Inspector Relationship Specialty Start Date End Date Conner Stanley DO [address] [place] [address] PCP - General Internal Medicine 04/28/24 Conner Stanley DO [address] [place] [address] Referring Internal Medicine 05/04/22 Kierra Posadas APRN [address] [place] [address] Referring Internal Medicine 04/18/24 Wine Bottle Inspector Relationship Specialty Start Date End Date Conner Stanley DO [address] [place] [address] PCP - General Internal Medicine 04/28/24 Conner Stanley DO [address] [place] [address] Referring Internal Medicine 05/04/22 Kierra Posadas APRN [address] [place] [address] Referring Internal Medicine 04/18/24 Wine Bottle Inspector Relationship Specialty Start Date End Date Conner Stanley DO [address] [place] [address] PCP - General Internal Medicine 04/28/24 Conner Stanley DO [address] [place] [address] Referring Internal Medicine 05/04/22 Kierra Posadas APRN [address] [place] [address] Referring Internal Medicine 04/18/24 Goals (unrecognized section and content) Goals may be documented in a n alternate sectionGoals may be documented in an alternate sectionGoals may be documented in an alternate sectionGoals may be documented in an alternate sectionGoals may be documented in an alternate sectionGoals may be documented in an alternate section Source Comments (unrecognize d section and content) In the event this informatio n is protected by the Federal Confidentiality of Alcohol and Drug Abuse Patient Records regulations: The Federal rules restrict any use of the information to criminally investigate or prosecute any alcohol or drug abuse patient.[facility] Center[facility] the event this information is protected by the Federal Confidentiality of Alcohol and Drug Abuse Patient Records regulations: The Federal rules restrict any use of the information to criminally investigate or prosecute any alcohol or drug abuse patient.[facility] CenterIn the event this information is protected by the Federal Confidentiality of Alcohol and Drug Abuse Patient Records regulations: The Federal rules restrict any use of the information to criminally investigate or prosecute any alcohol or drug abuse patient.[facility] CenterIn the event this information is protected by the Federal Confidentiality of Alcohol and Drug Abuse Patient Records regulations: The Federal rules restrict any use of the information to criminally investigate or prosecute any alcohol or drug abuse patient.[facility] CenterIn the event this information is protected by the Federal Confidentiality of Alcohol and Drug Abuse Patient Records regulations: The Federal rules restrict any use of the information to criminally investigate or prosecute any alcohol or drug abuse patient.[facility] CenterIn the event this information is protected by the Federal Confidentiality of Alcohol and Drug Abuse Patient Records regulations: The Federal rules restrict any use of the information to criminally investigate or prosecute any alcohol or drug abuse patient.[facility] CenterIn the event this information is protected by the Federal Confidentiality of Alcohol and Drug Abuse Patient Records regulations: The Federal rules restrict any use of the information to criminally investigate or prosecute any alcohol or drug abuse patient.[facility] CenterIn the event this information is protected by the Federal Confidentiality of Alcohol and Drug Abuse Patient Records regulations: The Federal rules restrict any use of the information to criminally investigate or prosecute any alcohol or drug abuse patient.[facility] CenterIn the event this information is protected by the Federal Confidentiality of Alcohol and Drug Abuse Patient Records regulations: The Federal rules restrict any use of the information to criminally investigate or prosecute any alcohol or drug abuse patient.[facility] CenterIn the event this information is protected by the Federal Confidentiality of Alcohol and Drug Abuse Patient Records regulations: The Federal rules restrict any use of the information to criminally investigate or prosecute any alcohol or drug abuse patient.[facility] CenterIn the event this information is protected by the Federal Confidentiality of Alcohol and Drug Abuse Patient Records regulations: The Federal rules restrict any use of the information to criminally investigate or prosecute any alcohol or drug abuse patient.[facility] CenterIn the event this information is protected by the Federal Confidentiality of Alcohol and Drug Abuse Patient Records regulations: The Federal rules restrict any use of the information to criminally investigate or prosecute any alcohol or drug abuse patient.[facility] CenterIn the event this information is protected by the Federal Confidentiality of Alcohol and Drug Abuse Patient Records regulations: The Federal rules restrict any use of the information to criminally investigate or prosecute any alcohol or drug abuse patient.[facility] CenterIn the event this information is protected by the Federal Confidentiality of Alcohol and Drug Abuse Patient Records regulations: The Federal rules restrict any use of the information to criminally investigate or prosecute any alcohol or drug abuse patient.[facility] CenterIn the event this information is protected by the Federal Confidentiality of Alcohol and Drug Abuse Patient Records regulations: The Federal rules restrict any use of the information to criminally investigate or prosecute any alcohol or drug abuse patient.[facility] CenterIn the event this information is protected by the Federal Confidentiality of Alcohol and Drug Abuse Patient Records regulations: The Federal rules restrict any use of the information to criminally investigate or prosecute any alcohol or drug abuse patient.[facility] CenterIn the event this information is protected by the Federal Confidentiality of Alcohol and Drug Abuse Patient Records regulations: The Federal rules restrict any use of the information to criminally investigate or prosecute any alcohol or drug abuse patient.[facility] CenterIn the event this information is protected by the Federal Confidentiality of Alcohol and Drug Abuse Patient Records regulations: The Federal rules restrict any use of the information to criminally investigate or prosecute any alcohol or drug abuse patient.[facility] CenterIn the event this information is protected by the Federal Confidentiality of Alcohol and Drug Abuse Patient Records regulations: The Federal rules restrict any use of the information to criminally investigate or prosecute any alcohol or drug abuse patient.[facility] CenterIn the event this information is protected by the Federal Confidentiality of Alcohol and Drug Abuse Patient Records regulations: The Federal rules restrict any use of the information to criminally investigate or prosecute any alcohol or drug abuse patient.[facility] CenterIn the event this information is protected by the Federal Confidentiality of Alcohol and Drug Abuse Patient Records regulations: The Federal rules restrict any use of the information to criminally investigate or prosecute any alcohol or drug abuse patient.[facility] CenterIn the event this information is protected by the Federal Confidentiality of Alcohol and Drug Abuse Patient Records regulations: The Federal rules restrict any use of the information to criminally investigate or prosecute any alcohol or drug abuse patient.[facility] CenterIn the event this information is protected by the Federal Confidentiality of Alcohol and Drug Abuse Patient Records regulations: The Federal rules restrict any use of the information to criminally investigate or prosecute any alcohol or drug abuse patient.[facility] CenterIn the event this information is protected by the Federal Confidentiality of Alcohol and Drug Abuse Patient Records regulations: The Federal rules restrict any use of the information to criminally investigate or prosecute any alcohol or drug abuse patient.[facility] CenterIn the event this information is protected by the Federal Confidentiality of Alcohol and Drug Abuse Patient Records regulations: The Federal rules restrict any use of the information to criminally investigate or prosecute any alcohol or drug abuse patient.[facility] CenterIn the event this information is protected by the Federal Confidentiality of Alcohol and Drug Abuse Patient Records regulations: The Federal rules restrict any use of the information to criminally investigate or prosecute any alcohol or drug abuse patient.[facility] CenterIn the event this information is protected by the Federal Confidentiality of Alcohol and Drug Abuse Patient Records regulations: The Federal rules restrict any use of the information to criminally investigate or prosecute any alcohol or drug abuse patient.[facility] CenterIn the event this information is protected by the Federal Confidentiality of Alcohol and Drug Abuse Patient Records regulations: The Federal rules restrict any use of the information to criminally investigate or prosecute any alcohol or drug abuse patient.[facility] CenterIn the event this information is protected by the Federal Confidentiality of Alcohol and Drug Abuse Patient Records regulations: The Federal rules restrict any use of the information to criminally investigate or prosecute any alcohol or drug abuse patient.[facility] CenterIn the event this information is protected by the Federal Confidentiality of Alcohol and Drug Abuse Patient Records regulations: The Federal rules restrict any use of the information to criminally investigate or prosecute any alcohol or drug abuse patient.[facility] FOR RECORDS PERTAINING TO PATIENTS WHO ARE [...] BE BASED ON THE PRIMARY CLINICAL RECORDS. [facility] [employer] [facility]. provides no warranty or guarantee of the accuracy or completeness of information in this document.
== END 2024-08-08 10:24 | disposition home or self-care (01) ==
LOC: US 10:29
PROVIDERS: PCP Internal Medicine; Visit Provider Obstetrics & Gynecology
DX: N85.8 Other specified noninflammatory disorders of uterus (principal); Z78.0 Asymptomatic menopausal state
CPT/HCPCS: 76830; 76856; 77080

== ENCOUNTER 2025-06-18 10:56 | Outpatient (OUT) | payer MEDICARE, OTHER, SELFPAY ==
[2025-06-18 11:58] LABS: Hematocrit 32.9 % (36.0-48.0); Hemoglobin 11.0 g/dL (12.0-16.0); Immature Granulocytes Abs Auto 0.01 10^3/uL (0.00-0.03); Immature Granulocytes Pct Auto 0.3 % (0.0-0.5); Lymphocytes Absolute Auto 0.7 10^3/uL (1.2-3.8); Mean Corpuscular HGB Conc 33.4 g/dL (29.9-35.2); Mean Corpuscular Hemoglobin 34.3 pg (26.7-34.0); Mean Corpuscular Volume 102.5 fL (81.0-99.0); Platelet Count 78 10^3/uL (150-450); Red Blood Count 3.21 10^6/uL (4.20-5.40); White Blood Count 3.8 10^3/uL (4.0-11.0)
[2025-06-18 12:18] LABS: Anion Gap 14.6; Blood Urea Nitrogen 15.0 mg/dL (7.0-18.0); Calcium 9.2 mg/dL (8.5-10.1); Carbon Dioxide 25.7 mmol/L (21.0-32.0); Chloride 102 mmol/L (98-107); Estimated GFR (African America >60 (>=60 mL/min/1.73m^2); Estimated GFR (Non-African Ame >60 (>=60 mL/min/1.73m^2); Glucose 101 mg/dL (74-106); Potassium 4.3 mmol/L (3.5-5.1); Sodium 138 mmol/L (136-145)
--- OUTSIDE RECORDS SUMMARY | 2025-06-18 15:30 | XMS_ITS ---
Author Name Auto Generated Organization OHIP Support Name Relationship Address [place] [address] [phone] [place] [address] [phone] [place] [address] [phone] [place] [address] [phone] KADIE TAYLOR Next of Kin Unknown + HAMIDA PANDYA Next of Kin Unknown + [place] [address] [phone] [place] [address] [phone] [place] [address] +[phone] [place] [address] [phone] [place] [address] +[phone] [place] [address] [phone] [place] [address] +[phone] [place] [address] [phone] KADIE TAYLOR Next of Kin Unknown + HAMIDA PANDYA Next of Kin Unknown + KADIE TAYLOR Next of Kin Unknown + HAMIDA PANDYA Next of Kin Unknown + [place] [address] [phone] [place] [address] [phone] BRANDON, KADIE Next of Kin Unknown + HAMIDA PANDYA Next of Kin Unknown + Brandon, [place] [address] [phone] [place] [address] [phone] KLANA, KADIE Next of Kin Unknown + HAMIDA PANDYA Next of Kin Unknown + Klana, [place] [address] [phone] [place] [address] [phone] KLANA, KADIE Next of Kin Unknown + HAMIDA PANDYA Next of Kin Unknown + Care Team Providers Care Social Work Associate Name Role Phone Asaad, Imad Admitting Unavailable Asaad, Imad Attending Unavailable Jaden, Conner Primary Care Unavailable Lisandro Vines II Admitting Unavaila ble Mohinder LIZ, Lisandro Barker Attending Unavaila ble Vaschak, Conner Primary Care Unavailable Asaad, Imad Referring Unavailable Javad Cruz Jr Attending Unavailable Jacintachamanjula, Conner Primary Care Unavailable Javad Cruz Jr Admitting Unavailable Pili Evans Admitting Unavailable Pili Evans Attending Unavailable Jacintachamanjula, Conner Primary Care Unavailable Vaschak, Conner Primary Care Unavailable KrisVonnie logan L Admitting Unavailable Pearl CityVonnie L Attending Unavailable Vaschak, Conner Primary Care Unavailable Edyta, Benedicto Admitting Unavailable Rylan Lany Attending Unavailable Vasalixk, Conner Primary Care Unavailable Edyta, Benedicto Admitting Unavailable Edyta, Benedicto Attending Unavailable Asaad, Imad Admitting Unavailable Asaad, Imad Attending Unavailable Vaschak, Conner Primary Care Unavailable Asaad, Imad Admitting Unavailable Asaad, Imad Attending Unavailable Jaden, Conner Primary Care Unavailable VONNIE AGUIRRE Attending Unavailable CONNER STANLEY Referring Unavailable EDYTA, BENEDICOT Attending Unavailable EDYTA, BENEDICTO Attending Unavailable VASCHAK, CONNER J Attending Unavailable VASCHACONNER Arroyo Referring Unavailable VASCHAK, CONNER Barker Attending Unavailable VASCHAKCONNER Referring Unavailable BENEDICTO LAN Referring Unavailable VASCHAK, CONNER TORIBIO Primary Care Unavailab le VASCHAK, CONNER TORIBIO Primary Care Unavailab le VASCHAK, CONNER TORIBIO Primary Care Unavailab le VASCHAK, CONNER TORIBIO Primary Care Unavailab le VASCHAK, CONNER TORIBIO Primary Care Unavailab le VASCHAK, CONNER TORIBIO Primary Care Unavailab le VASCHAK, CONNER TORIBIO Primary Care Unavailab le JACOB, EBONIE MARQUES Referring Unavailable VASCHAK, CONNER TORIBIO Primary Care Unavailab JUAN Mora Admitting Unavailable JUAN WHALEN Attending Unavailable VASCHAK, CONNER TORIBIO Primary Care Unavailab le VASCHAK, CONNER TORIBIO Primary Care Unavailab le VASCHAK, CONNER [facility] Care Unavailab le VASCHAK, CONNER MCKEON [facility] Care Unavailab le VASCHAK, CONNER MCKEON [facility] Care Unavailab le VASCHAK, CONNER [facility] Care Unavailab le VASCHAK, CONNER TORIBIO Primary Care Unavailab le JACOB, EBONIE MARQUES Referring Unavailable VASCHAK, CONNER MCKEON Primary Care Unavailab le JACOB, EBONIE MARQUES Referring Unavailable VASCHAK, CONNER MCKEON Primary Care Unavailab le JACOB, EBONIE MARQUES Referring Unavailable VASCHAK, CONNER MCKEON Primary Care Unavailab le VASCHAK, CONNER MCKEON Primary Care Unavailab le VASCHAK, CONNER [facility] Care Unavailab le VASCHAK, CONNER MCKEON [facility] Care Unavailab le VASCHAK, CONNER [facility] Care Unavailab le JACOB, EBONIE MARQUES Attending Unavailable VASCHAK, CONNER MCKEON Primary Care Unavailab TAMERA Mullen Referring Unavailable VASCHAK, CONNER MCKEON Primary Care Unavailab le VASCHAK, CONNER TORIBIO Primary Care Unavailab le JACOB, EBONIE MARQUES Referring Unavailable VASCHAK, CONNER MCKEON Primary Care Unavailab le JACOB, EBONIE MARQUES Referring Unavailable VASCHAK, CONNER MCKEON Primary Care Unavailab le JACOB, EBONIE MARQUES Referring Unavailable VASCHAK, CONNER MCKEON [facility] Care Unavailab le VASCHAK, CONNER [facility] Care Unavailab le VASCHAK, CONNER TORIBIO Primary Care Unavailab JUAN Mora Attending Unavailable VASCHAK, CONNER TORIBIO Primary Care Unavailab JES Carbajal Attending Unavailable YEISON URENA Referring Unavailable VASCHAK, CONNER MCKEON Primary Care Unavailab le VASCHAK, CONNER MCKEON Primary Care Unavailab le VASCHAK, CONNER MCKEON Primary Care Unavailab le VASCHAK, CONNER MCKEON Primary Care Unavailab le VASCHAK, CONNER MCKEON Primary Care Unavailab le VASCHAK, CONNER MCKEON Primary Care Unavailab le VASCHAK, CONNER MCKEON Primary Care Unavailab le VASCHAK, CONNER MCKEON Primary Care Unavailab le VASCHAK, CONNER MCKEON Primary Care Unavailab le VASCHAK, CONNER MCKEON Primary Care Unavailab le VASCHAK, CONNER MCKEON Primary Care Unavailab le VASCHAK, CONNER MCKEON Primary Care Unavailab le VASCHAK, CONNER MCKEON Primary Care Unavailab JUAN Mora Attending Unavailable VASCHAK, CONNER MCKEON Primary Care Unavailab JUAN Mora Referring Unavailable VASCHAK, CONNER MCKEON Primary Care Unavailab JUAN Mora Referring Unavailable VASCHAK, CONNER MCKEON Primary Care Unavailab le JUAN WHALEN Referring Unavailable VASCHAK, CONNER MCKEON Primary Care Unavailab le VASCHAK, CONNER MCKEON Primary Care Unavailab le CORNISHALIYAH CORTEZ Attending Unavailable VASCHAK, CONNER MCKEON Primary Care Unavailab le VASCHAK, CONNER MCKEON Primary Care Unavailab le VASCHAK, CONNER MCKEON Primary Care Unavailab le VASCHAK, CONNER MCKEON Primary Care Unavailab le VASCHAK, CONNER MCKEON Primary Care Unavailab le VASCHAK, CONNER MCKEON Primary Care Unavailab le VASCHAK, CONNER MCKEON Primary Care Unavailab le VASCHAK, CONNER MCKEON Primary Care Unavailab le VASCHAK, CONNER MCKEON Primary Care Unavailab le VASCHAK, CONNER MCKEON Primary Care Unavailab le VASCHAK, CONNER MCKEON Primary Care Unavailab le VASCHAK, CONNER MCKEON Primary Care Unavailab le VASCHAK, CONNER MCKEON Primary Care Unavailab le VASCHAK, CONNER MCKEON Primary Care Unavailab le VASCHAK, CONNER MCKEON Primary Care Unavailab le VASCHAK, CONNER MCKEON Primary Care Unavailab le VASCHAK, CONNER MCKEON Primary Care Unavailab le VASCHAK, CONNER MCKEON Primary Care Unavailab le VASCHAK, CONNER MCKEON Primary Care Unavailab le VASCHAK, CONNER MCKEON Primary Care Unavailab le JACOBEBONIE CHSAE Attending Unavailable VASCHAK, CONNER MCKEON Primary Care Unavailab le VASCHAK, CONNER MCKEON Primary Care Unavailab le JACOBEBONIE CHASE Referring Unavailable VASCHAK, CONNER MCKEON Primary Care Unavailab le SELF Referring Unavailable VASCHAK, CONNER [facility] Unavailab le SELF Referring Unavailable VASCHAK, [facility] Primary Care Unavailab le SELF Referring Unavailable VASCHAK, [facility] Unavailab le VASCHAK, [facility] Unavailab le VASCHAK, [facility] Care Unavailab le KOLCZUN II, NENITA Referring Unavailable VASCHAK, CONNER [facility] Care Unavailab le KOLCZUN II, NENITA Attending Unavailable VASCHAK, CONNER TORIBIO Referring Unavailab le VASCHAK, [facility] Care Unavailab le VASCHAK, [facility] Primary Care Unavailab le VASCHAK, [facility] Primary Care Unavailab le VASCHAK, [facility] Unavailab le VASCHAK, [facility] Unavailab le JUAN WHALEN Attending Unavailable VASCHAK, [facility] Unavailab le VASCHAK, [facility] Unavailab le JES LATHAM Attending Unavailable VASCHAK, [facility] Unavailab le VASCHAK, [facility] Unavailab le TAMERA EVANS Attending Unavailable VASCHAK, [facility] Unavailab le VASCHAK, [facility] Unavailab le VASCHAK, [facility] Unavailab le Carlin SOLIS Attending Unavailable PROBLEMS DATE TYPE CONDITION / CODE ATTENDING STATUS [facility] 06/18/2025 Unknown Malignant neopla sm of unspecified ovary / C56.9(ICD-10) Lisandro Vines II [facility] 06/18/2025 Unknown Localized enlarg ed lymph nodes / R59.0(ICD-10) Lisandro Vines II [facility] 06/18/2025 Unknown 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) Lisandro Vines II [facility] 05/29/2025 Active 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) / C56.3(ICD-10) JUAN WHALEN Active [facility] 05/29/2025 Active BRCA1 gene mutat ion positive / Z15.01(ICD-10) JUAN WHALEN Active [facility] 05/29/2025 Active BRCA1 gene mutat ion positive / Z15.09(ICD-10) JUAN WHALEN Active [facility] 05/09/2025 Active Post-operative s negron / Z98.890(ICD-10) JUAN WHALEN Active [facility] 02/06/2025 Active 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) JUAN WHALEN Active [facility] 05/07/2025 Active Educational circumstances / Z55.9(ICD-10) NA Active [facility] 05/01/2025 Active PONV (postoperat maria guadalupe nausea and vomiting) / R11.2(ICD-10) NA Active [facility] 05/01/2025 Active PONV (postoperat maria guadalupe nausea and vomiting) / Z98.890(ICD-10) NA Active [facility] 02/17/2025 Unknown Neoplasm related pain (acute) (chronic) / G89.3(ICD-10) Javad Cruz Jr [facility] 02/01/2025 Active Ovarian cancer g enetic susceptibility / Z15.02(ICD-10) NA [facility] 02/01/2025 Active Other abnormal t umor markers / R97.8(ICD-10) NA [facility] 01/17/2025 Unknown Localized swelli ng, mass and lump, right upper limb / R22.31(ICD-10) Benedicto Lan [facility] 01/15/2025 Unknown Unspecified abdo bahman pain / [facility]10.9(ICD-10[facility]/15/2025 Unknown Abnormal weight loss / R63.4(ICD-10) Asaad, ad [facility] 01/15/2025 Unknown Nausea / R11.0(ICD-10) Asaad, ad [facility]i ve [facility] 01/10/2025 Unknown Constipation, unspecified / K59.00(ICD-10) [facility] 05/08/2024 Active Eczema, unspecif ied type / L30.9(ICD-10) [facility] 11/23/2024 Unknown Abnormal immunol ogical findings in specimens from other organs, systems and tissues / R89.4(ICD-10) Asaad, ad [facility] 05/09/2024 Active Peripheral eosin ophilia / D72.19(ICD-10) NA Active [facility] 11/20/2024 Active Seasonal allergi c rhinitis due to pollen / J30.1(ICD-10) NA Active [facility] 11/13/2024 Active Contact dermatit is and other eczema, due to unspecified cause / L25.9(ICD-10) NA Active [facility] 10/12/2024 Active Primary osteoart hritis of right hip / M16.11(ICD-10) NA Active [facility] 09/26/2024 Unknown Other fatigue / R53.83(ICD-10) Pili Evans [facility] 08/16/2024 Unknown Solitary cyst of right breast / N60.01(ICD-10) Vonnie Ponce [facility] 08/14/2024 Active Contact dermatit is, unspecified contact dermatitis type, unspecified trigger / L25.9(ICD-10) JES LATHAM Active [facility] 08/07/2024 Active Spongiotic derma titis / L30.8(ICD-10) NA Active [facility] PROCEDURES No Procedure Records Found RESULTS COMPLETE BLOOD COUNT AUTO DIFF Collected: 06/18/2025 3:40 PM Status: F Source: [facility] TYPE CODE TESTS RESULT OUT OF RANGE REFERENCE UNITS LAB WBC White Blood Count 4.2 Normal 3.8-11.6 [CFU]/mL LAB UNWBC Uncorrected WBC 4.2 Normal 3.8-11.6 10*3/uL LAB RBC Red Blood Count 3.16 Low 3.60-5.00 10*6/u L LAB HGB Hemoglobin 10.9 Low 11.8-15.4 g/dL LAB HCT Hematocrit 31.8 Low 34.0-46.4 % LAB MCV Mean Corpuscular Volume 100.7 High 80-100 fL LAB MCH Mean Corpuscular Hemoglobin 34.4 High 24.7-34.3 pg LAB MCHC Mean Corpuscular HGB Conc 34.2 Normal 32.0-35.0 g/dL LAB RDW Red Cell Distribution Width 13.9 Normal 11.9-15.3 % LAB PLT Platelet Count 82 Low 150-450 10*3/uL LAB MPV Mean Platelet Volume 8.1 Normal 6.3-10.7 fL LAB NE% Neutrophils % (Auto) 64.1 . % LAB LY% Lymphocytes % (Auto) 18.8 . % LAB MO% Monocytes % (Auto) 15.1 . % LAB EO% Eosinophils % (Auto) 1.5 . % LAB BA% Basophils % (Auto) 0.5 . % LAB NRBC% NRBC% 0.1 Normal 0-0.5 /100{WBC} LAB NE# Neutrophils # (Auto) 2.7 Normal 1.8-7.7 10*3/uL LAB LY# Lymphocytes # (Auto) 0.8 Low 1.00-4.8 10*3/uL LAB MO# Monocytes # (Auto) 0.6 Normal 0.0-0.8 10*3/uL LAB EO# Eosinophils # (Auto) 0.1 Normal 0.0-0.45 10*3/uL LAB BA# Basophils # (Auto) 0.0 Normal 0.0-0.2 10*3/uL Result Comment: PERFORMED BY : [place] [address] PATHOLOGIST EDDY CURRENT INSPECTOR MARISEL MANRIQUE M.D. Performed By: #### CBC #### [address] CNPN Observed: 06/18/2025 12:00 AM Status: COMPLETED Source: [facility] Telephone (DERMWH) MIRIAN CORRALES ([id number]) 1955 F Date Time Provider Department 06/18/25 EBONIE JAMES DERMWH During your visit today, we recorded the following information about you: Dl Matthews LPN 06/18/2025 8:24 AM Signed Outside records forwarded to medical records to be scanned Dl Matthews LPN Allergies As of Date: 06/18/2025 Noted Allergy Reaction DIPHENYLGUANIDINE 11/17/2024 2 - Rash IODOPROPYNYL BUTYLCARBAMATE 11/17/2024 2 - Rash WHEAT 08/24/2019 7 - Swelling DAIRY AID (LACTASE) 08/24/2019 7 - Swelling Comments: Bloating Date Reviewed: 05/29/2025 Reviewed by: Vikki Link MA - Fully Assessed Reason for Visit: Received Outside Medical Records [[id number]] Prescriptions as of 06/18/2025 - acetaminophen (TYLENOL EXTRA STRENGTH) 500 mg tablet Take 2 tablets by mouth every 6 hours as needed for pain. - ondansetron (ZOFRAN) 4 mg tablet Take 1 tablet by mouth every 6 hours as needed for nausea/vomiting. - Magnesium 200 mg tab Take by mouth. - Bisacodyl (DULCOLAX) 5 mg tab Take 1 tablet by mouth as directed. Take 2 tablets at 3pm the day before surgery - polyethylene glycol 3350 (MIRALAX) 17 gram/dose powder Purchase one 238 gram bottle of Miralax Use as directed - calcium carbonate/vitamin D3 (CALCIUM CHEW ORAL) Take by mouth. - white petrolatum (AQUAPHOR) 41 % topical ointment Apply to affected area as needed. - pantoprazole DR (PROTONIX) 40 mg tablet Take 1 tablet by mouth daily at 6 am. Patient should start on May 11, 2024. - Lactobacillus acidophilus (PROBIOTIC ORAL) Take 1 capsule by mouth once daily. - Cholecalciferol, Vitamin D3, 25 mcg (1,000 unit) cap Take 1,000 Units by mouth once daily. 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] 06/25/2023 History of steroid therapy [Z92.241] 10/01/2024 01/29/2025 Abnormal radiographic examination [R93.89] 01/29/2025 01/29/2025 Varicose veins of bilateral lower extremities w*12/08/2022 Other specified noninflammatory disorders of ut*08/08/2024 Mastodynia [N64.4] 03/29/2022 Fatigue [R53.83] 09/26/2024 01/29/2025 H/O skin disorder [Z87.2] 01/29/2025 01/29/2025 Cyst of right breast [N60.01] 03/29/2022 Edema [R60.9] 01/29/2025 01/29/2025 Asymptomatic menopausal state [Z78.0] 03/24/2022 01/29/2025 Acute pharyngitis, unspecified [J02.9] 01/02/2024 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 Pain due to neoplasm [G89.3] 02/17/2025 Weight loss [R63.4] 01/15/2025 Malignant neoplasm of ovary (HCC) [C56.9] 04/20/2025 Constipation [K59.00] 01/10/2025 Axillary lymphadenopathy [R59.0] 04/20/2025 Abdominal pain [R10.9] 01/15/2025 PONV (postoperative nausea and vomiting) [R11.2*05/01/2025 Anemia [D64.9] 05/01/2025 Post-operative state [Z98.890] 05/09/2025 Encounter Status:Closed by DL MATTHEWS on 06/18/25 REMINDERS Observed: 06/04/2025 11:26 AM Status: F Source: [facility] Reminders From: Ashley Cheatham To: EU - Recalls [facility]; Sent: 06/04/2025 11:26:17 EDT Show up: 08/20/2025 11:26:00 EST Subject: rt stent change Due Date/Time: 09/17/2025 11:26:00 EST Reminder/Recall Patient due in Oct 2025 for 4 month cysto, rt stent change (mac) PATIENT EDUCATION Observed: 06/04/2025 10:59 AM Status: C Source: [facility] Patient Education Urology Ureteral Stent Implantation Ureteral stent implantation is a procedure to insert (implant) a flexible, soft, plastic tube (stent) into a ureter. Ureters are the tubelike parts of the body that drain urine from the kidneys. A ureteral stent may be implanted: ??? After a procedure to remove a blockage from the ureter (ureterolysis or pyeloplasty). ??? To open the flow of urine when a blockage is caused by a kidney stone, tumor, blood clot, or infection. You have two ureters, one on each side of your body. The ureters connect your kidneys to your bladder. The stent is placed so that one end is in your kidney, and one end is in your bladder. The stent supports the ureter while it heals and helps to drain urine. The stent is usually taken out after your ureter has healed. Depending on your condition, you may have a stent for just a few weeks, or you may have a long- term stent that will need to be replaced every few months. Tell a health care provider about: ??? Any allergies you have. ??? All medicines you are taking, including vitamins, herbs, eye drops, creams, and kxib-ffv-amyqgng medicines. ??? Any problems you or family members have had with anesthetic medicines. ??? Any bleeding problems you have. ??? Any surgeries you have had. ??? Any medical conditions you have. ??? Whether you are or may be . What are the risks? Generally, this is a safe procedure. However, problems may occur, including: ??? Infection. ??? Bleeding. ??? Allergic reactions to medicines. ??? Damage to nearby structures or organs, such as tearing (perforation) of the ureter. ??? Movement of the stent away from where it is placed during surgery (migration). ??? Buildup of a crust or hard coating (encrustation) on the stent. This happens when bacteria in the body form crystals on the stent, causing it to weaken. What happens before the procedure? Medicines Ask your health care provider about: ??? Changing or stopping your regular medicines. These include any diabetes medicines or blood thinners you take. ??? Taking medicines such as aspirin and ibuprofen. These medicines can thin your blood. Do not take them unless your health care provider tells you to. ??? Taking hxaj-phf-ykockdx medicines, vitamins, herbs, and supplements. When to stop eating and drinking Follow instructions from your health care provider about what you may eat and drink. These may include: ??? 8 hours before your procedure ? Stop eating most foods. Do not eat meat, fried foods, or fatty foods. ? Eat only light foods, such as toast or crackers. ? All liquids are okay except energy drinks and alcohol. ??? 6 hours before your procedure ? Stop eating. ? Drink only clear liquids, such as water, clear fruit juice, black coffee, plain tea, and sports drinks. ? Do not drink energy drinks or alcohol. ??? 2 hours before your procedure ? Stop drinking all liquids. ? You may be allowed to take medicines with small sips of water. If you do not follow your health care provider's instructions, your procedure may be delayed or canceled. General instructions ??? Do not use any products that contain nicotine or tobacco for at least 4 weeks before the procedure. These products include cigarettes, chewing tobacco, and vaping devices, such as e-cigarettes. If you need help quitting, ask your health care provider. ??? You may have an exam or testing, such as imaging or blood tests. ??? If you will be going home right after the procedure, plan to have a responsible adult: ? Take you home from the hospital or clinic. You will not be allowed to drive. ? Care for you for the time you are told. ??? Ask your health care provider what steps will be taken to help prevent infection. These steps may include: ? Removing hair at the surgery site. ? Washing skin with a soap that kills germs. ? Taking antibiotic medicine. What happens during the procedure? An IV will be inserted into one of your veins. ??? You may be given: ? A medicine to help you relax (sedative). ? A medicine to make you fall asleep (general anesthetic). ??? A thin, tube-shaped instrument with a light and tiny camera at the end (cystoscope) will be inserted into your urethra. The urethra is the part of your body that drains urine from the bladder. The urethra opens at the end of the penis or in front of the vaginal opening. ??? The cystoscope will be passed into your bladder. ??? Guided imagery using X-ray may be used to pass a thin wire (guide wire) through your bladder and into your ureter. This wire is used to guide the stent into your ureter. ??? The stent will be inserted into your ureter. ??? The guide wire and the cystoscope will be removed. ??? A thin, flexible tube (catheter) may be put through your urethra so that one end is in your bladder. This helps to drain urine from your bladder. The procedure may vary among hospitals and health care providers. What happens after the procedure? Your blood pressure, heart rate, breathing rate, and blood oxygen level will be monitored until you leave the hospital or clinic. ??? You may continue to get medicine and fluids through an IV. ??? You may have some soreness or pain in your abdomen and urethra. You may be given medicines for this. ??? You will be encouraged to get up and walk around as soon as you can. ??? You may have a catheter draining your urine. Summary ??? Ureteral stent implantation is a procedure to insert a flexible, soft, plastic tube (stent) into a ureter. ??? You may have a stent implanted to support the ureter while it heals after a procedure or to open the flow of urine if there is a blockage. ??? You may have a stent for just a few weeks, or you may have a long-term stent that will need to be replaced every few months. ??? Follow instructions from your health care provider about taking medicines and about eating and drinking before the procedure. This information is not intended to replace advice given to you by your health care provider. Make sure you discuss any questions you have with your health care provider. Document Revised: 10/12/2022 Document Reviewed: 10/12/2022 [employer] Patient Education ? 2023 [employer].Hydronephrosis Hydronephrosis is the swelling of one or both kidneys due to a blockage that stops urine from flowing out of the body. Kidneys filter waste from the blood and produce urine. This condition can lead to kidney failure and may become life-threatening if not treated promptly. What are the causes? In infants and children, common causes include problems that occur when a baby is developing in the womb. These can include problems in the kidneys or in the tubes that drain urine into the bladder (ureters). In adults, common causes include: ??? Kidney stones. ??? . ??? A tumor or cyst in the abdomen or pelvis. ??? An enlarged prostate gland. Other causes include: ??? Bladder infection. ??? Scar tissue from a previous surgery or injury. ??? A blood clot. ??? Cancer of the prostate, bladder, uterus, ovary, or colon. What are the signs or symptoms? Symptoms of this condition include: ??? Pain or discomfort in your side (flank) or abdomen. ??? Swelling in your abdomen. ??? Nausea and vomiting. ??? Fever. ??? Pain when passing urine. ??? Feelings of urgency when you need to urinate. ??? Urinating more often than normal. In some cases, you may not have any symptoms. How is this diagnosed? This condition may be diagnosed based on: ??? Your symptoms and medical history. ??? A physical exam. ??? Blood and urine tests. ??? Imaging tests, such as an ultrasound, CT scan, or MRI. ??? A procedure to look at your urinary tract and bladder by inserting a scope into the urethra (cystoscopy). How is this treated? Treatment for this condition depends on where the blockage is, how long it has been there, and what caused it. The goal of treatment is to remove the blockage. Treatment may include: ??? Antibiotic medicines to treat or prevent infection. ??? A procedure to place a small, thin tube (stent) into a blocked ureter. The stent will keep the ureter open so that urine can drain through it. ??? A nonsurgical procedure that crushes kidney stones with shock waves (extracorporeal shock wave lithotripsy). ??? If kidney failure occurs, treatment may include dialysis or a kidney transplant. Follow these instructions at home: ??? Take nrjt-xgo-qycuaju and prescription medicines only as told by your health care provider. ??? If you were prescribed an antibiotic medicine, take it exactly as told by your health care provider. Do not stop taking the antibiotic even if you start to feel better. ??? Rest and return to your normal activities as told by your health care provider. Ask your health care provider what activities are safe for you. ??? Drink enough fluid to keep your urine pale yellow. ??? Keep all follow-up visits. This is important. Contact a health care provider if: ??? You continue to have symptoms after treatment. ??? You develop new symptoms. ??? Your urine becomes cloudy or bloody. ??? You have a fever. Get help right away if: ??? You have severe flank or abdominal pain. ??? You cannot drink fluids without vomiting. Summary ??? Hydronephrosis is the swelling of one or both kidneys due to a blockage that stops urine from flowing out of the body. ??? Hydronephrosis can lead to kidney failure and may become life-threatening if not treated promptly. ??? The goal of treatment is to remove the blockage. It may include a procedure to insert a stent into a blocked ureter, a procedure to break up kidney stones, or taking antibiotic medicines. ??? Follow your health care provider's instructions for taking care of yourself at home, including instructions about drinking fluids, taking medicines, and limiting activities. This information is not intended to replace advice given to you by your health care provider. Make sure you discuss any questions you have with your health care provider. Document Revised: 12/24/2020 Document Reviewed: 12/24/2020 [employer] Patient Education ? 2023 [employer] AMBULATORY VISIT SUMMARY Observed: 06/04 9:36 AM Status: F Source: [facility] Ambulatory Visit Summary MIRIAN CORRALES :1955 Visit Date:06/04/2025 Ambulatory Visit Instructions Your Diagnosis Hydronephrosis Primary malignant neoplasm of ovary Your Care Team Attending Physician - Carlin SOLIS MD Primary Care Physician - CONNER STANLEY DO Procedures Performed Laparoscopy, surgical; with fulguration or excision of lesions of the ovary, pelvic viscera, or peritoneal surface by any method (05/09/2025), Laparoscopy, surgical; with removal of adnexal structures (partial or total oophorectomy and/or salpingectomy) (05/09/2025), Positron emission tomography with computed tomography (04/18/2025), Screening colonoscopy (01/10/2025). Discharge Vitals Temperature (Tympanic) 36.8 ???C Heart Rate (Peripheral) 68 Respiratory Rate 16 Blood Pressure 128/70 Height 164 cm Height 65 in Weight 49.6 kg Weight 109.349 lb BMI 18.44 What to do next You Need to Schedule the Following Appointments Follow Up with IRMA BRONSON, Carlin Lawton, MANDIE When: Comments: sched cysto, R stent placement Where: [address] [place] [address] [place] [address] Allergies No Known Medication Allergies Problems Ongoing - Any problem that you are currently receiving treatment for. Anemia Antibody studies abnormal Axillary lymphadenopathy Carcinomatosis of peritoneal cavity Constipation Cyst of right breast Disorder associated with menstruation AND/OR menopause Eczema Edema Edema of uvula Eosinophil count above reference range Eruption Familial eosinophilia H/O: skin disorder Hydronephrosis Idiopathic hypereosinophilic syndrome Lymphadenopathy Malignant neoplasm of ovary Nausea Non-celiac gluten sensitivity Noninflammatory disorder of uterus Osteoarthritis of right hip joint Pain due to neoplastic disease.. Pain of breast Primary malignant neoplasm of ovary Senile osteoporosis Urticaria Varicose veins of lower extremity Patient Survey You may receive a survey via text or e-mail asking about your office visit. Please share your experience with us by completing your survey. We appreciate your feedback and thank you for choosing us for your care. Education Materials Ureteral Stent Implantation Ureteral stent implantation is a procedure to insert (implant) a flexible, soft, plastic tube (stent) into a ureter. Ureters are the tubelike parts of the body that drain urine from the kidneys. A ureteral stent may be implanted: ??? After a procedure to remove a blockage from the ureter (ureterolysis or pyeloplasty). ??? To open the flow of urine when a blockage is caused by a kidney stone, tumor, blood clot, or infection. You have two ureters, one on each side of your body. The ureters connect your kidneys to your bladder. The stent is placed so that one end is in your kidney, and one end is in your bladder. The stent supports the ureter while it heals and helps to drain urine. The stent is usually taken out after your ureter has healed. Depending on your condition, you may have a stent for just a few weeks, or you may have a long- term stent that will need to be replaced every few months. Tell a health care provider about: ??? Any allergies you have. ??? All medicines you are taking, including vitamins, herbs, eye drops, creams, and igvl-sbg-gcicerw medicines. ??? Any problems you or family members have had with anesthetic medicines. ??? Any bleeding problems you have. ??? Any surgeries you have had. ??? Any medical conditions you have. ??? Whether you are or may be . What are the risks? Generally, this is a safe procedure. However, problems may occur, including: ??? Infection. ??? Bleeding. ??? Allergic reactions to medicines. ??? Damage to nearby structures or organs, such as tearing (perforation) of the ureter. ??? Movement of the stent away from where it is placed during surgery (migration). ??? Buildup of a crust or hard coating (encrustation) on the stent. This happens when bacteria in the body form crystals on the stent, causing it to weaken. What happens before the procedure? Medicines Ask your health care provider about: ??? Changing or stopping your regular medicines. These include any diabetes medicines or blood thinners you take. ??? Taking medicines such as aspirin and ibuprofen. These medicines can thin your blood. Do not take them unless your health care provider tells you to. ??? Taking jrhv-fmf-wzugczh medicines, vitamins, herbs, and supplements. When to stop eating and drinking Follow instructions from your health care provider about what you may eat and drink. These may include: ??? 8 hours before your procedure ? Stop eating most foods. Do not eat meat, fried foods, or fatty foods. ? Eat only light foods, such as toast or crackers. ? All liquids are okay except energy drinks and alcohol. ??? 6 hours before your procedure ? Stop eating. ? Drink only clear liquids, such as water, clear fruit juice, black coffee, plain tea, and sports drinks. ? Do not drink energy drinks or alcohol. ??? 2 hours before your procedure ? Stop drinking all liquids. ? You may be allowed to take medicines with small sips of water. If you do not follow your health care provider's instructions, your procedure may be delayed or canceled. General instructions ??? Do not use any products that contain nicotine or tobacco for at least 4 weeks before the procedure. These products include cigarettes, chewing tobacco, and vaping devices, such as e-cigarettes. If you need help quitting, ask your health care provider. ??? You may have an exam or testing, such as imaging or blood tests. ??? If you will be going home right after the procedure, plan to have a responsible adult: ? Take you home from the hospital or clinic. You will not be allowed to drive. ? Care for you for the time you are told. ??? Ask your health care provider what steps will be taken to help prevent infection. These steps may include: ? Removing hair at the surgery site. ? Washing skin with a soap that kills germs. ? Taking antibiotic medicine. What happens during the procedure? An IV will be inserted into one of your veins. ??? You may be given: ? A medicine to help you relax (sedative). ? A medicine to make you fall asleep (general anesthetic). ??? A thin, tube-shaped instrument with a light and tiny camera at the end (cystoscope) will be inserted into your urethra. The urethra is the part of your body that drains urine from the bladder. The urethra opens at the end of the penis or in front of the vaginal opening. ??? The cystoscope will be passed into your bladder. ??? Guided imagery using X-ray may be used to pass a thin wire (guide wire) through your bladder and into your ureter. This wire is used to guide the stent into your ureter. ??? The stent will be inserted into your ureter. ??? The guide wire and the cystoscope will be removed. ??? A thin, flexible tube (catheter) may be put through your urethra so that one end is in your bladder. This helps to drain urine from your bladder. The procedure may vary among hospitals and health care providers. What happens after the procedure? Your blood pressure, heart rate, breathing rate, and blood oxygen level will be monitored until you leave the hospital or clinic. ??? You may continue to get medicine and fluids through an IV. ??? You may have some soreness or pain in your abdomen and urethra. You may be given medicines for this. ??? You will be encouraged to get up and walk around as soon as you can. ??? You may have a catheter draining your urine. Summary ??? Ureteral stent implantation is a procedure to insert a flexible, soft, plastic tube (stent) into a ureter. ??? You may have a stent implanted to support the ureter while it heals after a procedure or to open the flow of urine if there is a blockage. ??? You may have a stent for just a few weeks, or you may have a long-term stent that will need to be replaced every few months. ??? Follow instructions from your health care provider about taking medicines and about eating and drinking before the procedure. This information is not intended to replace advice given to you by your health care provider. Make sure you discuss any questions you have with your health care provider. Document Revised: 10/12/2022 Document Reviewed: 10/12/2022 [employer] Patient Education ??? 2023 [employer]. Hydronephrosis Hydronephrosis is the swelling of one or both kidneys due to a blockage that stops urine from flowing out of the body. Kidneys filter waste from the blood and produce urine. This condition can lead to kidney failure and may become life-threatening if not treated promptly. What are the causes? In infants and children, common causes include problems that occur when a baby is developing in the womb. These can include problems in the kidneys or in the tubes that drain urine into the bladder (ureters). In adults, common causes include: ??? Kidney stones. ??? . ??? A tumor or cyst in the abdomen or pelvis. ??? An enlarged prostate gland. Other causes include: ??? Bladder infection. ??? Scar tissue from a previous surgery or injury. ??? A blood clot. ??? Cancer of the prostate, bladder, uterus, ovary, or colon. What are the signs or symptoms? Symptoms of this condition include: ??? Pain or discomfort in your side (flank) or abdomen. ??? Swelling in your abdomen. ??? Nausea and vomiting. ??? Fever. ??? Pain when passing urine. ??? Feelings of urgency when you need to urinate. ??? Urinating more often than normal. In some cases, you may not have any symptoms. How is this diagnosed? This condition may be diagnosed based on: ??? Your symptoms and medical history. ??? A physical exam. ??? Blood and urine tests. ??? Imaging tests, such as an ultrasound, CT scan, or MRI. ??? A procedure to look at your urinary tract and bladder by inserting a scope into the urethra (cystoscopy). How is this treated? Treatment for this condition depends on where the blockage is, how long it has been there, and what caused it. The goal of treatment is to remove the blockage. Treatment may include: ??? Antibiotic medicines to treat or prevent infection. ??? A procedure to place a small, thin tube (stent) into a blocked ureter. The stent will keep the ureter open so that urine can drain through it. ??? A nonsurgical procedure that crushes kidney stones with shock waves (extracorporeal shock wave lithotripsy). ??? If kidney failure occurs, treatment may include dialysis or a kidney transplant. Follow these instructions at home: ??? Take gglv-xxv-gvulrwj and prescription medicines only as told by your health care provider. ??? If you were prescribed an antibiotic medicine, take it exactly as told by your health care provider. Do not stop taking the antibiotic even if you start to feel better. ??? Rest and return to your normal activities as told by your health care provider. Ask your health care provider what activities are safe for you. ??? Drink enough fluid to keep your urine pale yellow. ??? Keep all follow-up visits. This is important. Contact a health care provider if: ??? You continue to have symptoms after treatment. ??? You develop new symptoms. ??? Your urine becomes cloudy or bloody. ??? You have a fever. Get help right away if: ??? You have severe flank or abdominal pain. ??? You cannot drink fluids without vomiting. Summary ??? Hydronephrosis is the swelling of one or both kidneys due to a blockage that stops urine from flowing out of the body. ??? Hydronephrosis can lead to kidney failure and may become life-threatening if not treated promptly. ??? The goal of treatment is to remove the blockage. It may include a procedure to insert a stent into a blocked ureter, a procedure to break up kidney stones, or taking antibiotic medicines. ??? Follow your health care provider's instructions for taking care of yourself at home, including instructions about drinking fluids, taking medicines, and limiting activities. This information is not intended to replace advice given to you by your health care provider. Make sure you discuss any questions you have with your health care provider. Document Revised: 12/24/2020 Document Reviewed: 12/24/2020 [employer] Patient Education ??? 2023 [employer] Patient Portal You may access all of your results and other medical record information on our secure patient portal. If you are not signed up for this yet, please contact Laura Sapiens at [phone] to get signed up today. Language Information Language assistance services are available as needed. AMBULATORY VISIT SUMMARY Observed: 06/04 9:36 AM Status: F Source: [facility] Ambulatory Visit Summary MIRIAN CORRALES :1955 Visit Date:06/04/2025 Ambulatory Visit Instructions Your Diagnosis Hydronephrosis Primary malignant neoplasm of ovary Your Care Team Attending Physician - Carlin SOLIS MD Primary Care Physician - CONNER STANLEY DO Procedures Performed Laparoscopy, surgical; with fulguration or excision of lesions of the ovary, pelvic viscera, or peritoneal surface by any method (05/09/2025), Laparoscopy, surgical; with removal of adnexal structures (partial or total oophorectomy and/or salpingectomy) (05/09/2025), Positron emission tomography with computed tomography (04/18/2025), Screening colonoscopy (01/10/2025). Discharge Vitals Temperature (Tympanic) 36.8 ???C Heart Rate (Peripheral) 68 Respiratory Rate 16 Blood Pressure 128/70 Height 164 cm Height 65 in Weight 49.6 kg Weight 109.349 lb BMI 18.44 What to do next You Need to Schedule the Following Appointments Follow Up with IR[facility] BRONSON, Carlin Lawton, URL When: Comments: sched cysto, R stent placement Where: [address] [place] [address] [place] [address] Allergies No Known Medication Allergies Problems Ongoing - Any problem that you are currently receiving treatment for. Anemia Antibody studies abnormal Axillary lymphadenopathy Carcinomatosis of peritoneal cavity Constipation Cyst of right breast Disorder associated with menstruation AND/OR menopause Eczema Edema Edema of uvula Eosinophil count above reference range Eruption Familial eosinophilia H/O: skin disorder Hydronephrosis Idiopathic hypereosinophilic syndrome Lymphadenopathy Malignant neoplasm of ovary Nausea Non-celiac gluten sensitivity Noninflammatory disorder of uterus Osteoarthritis of right hip joint Pain due to neoplastic disease.. Pain of breast Primary malignant neoplasm of ovary Senile osteoporosis Urticaria Varicose veins of lower extremity Patient Survey You may receive a survey via text or e-mail asking about your office visit. Please share your experience with us by completing your survey. We appreciate your feedback and thank you for choosing us for your care. Education Materials Ureteral Stent Implantation Ureteral stent implantation is a procedure to insert (implant) a flexible, soft, plastic tube (stent) into a ureter. Ureters are the tubelike parts of the body that drain urine from the kidneys. A ureteral stent may be implanted: ??? After a procedure to remove a blockage from the ureter (ureterolysis or pyeloplasty). ??? To open the flow of urine when a blockage is caused by a kidney stone, tumor, blood clot, or infection. You have two ureters, one on each side of your body. The ureters connect your kidneys to your bladder. The stent is placed so that one end is in your kidney, and one end is in your bladder. The stent supports the ureter while it heals and helps to drain urine. The stent is usually taken out after your ureter has healed. Depending on your condition, you may have a stent for just a few weeks, or you may have a long- term stent that will need to be replaced every few months. Tell a health care provider about: ??? Any allergies you have. ??? All medicines you are taking, including vitamins, herbs, eye drops, creams, and krfg-vlw-cuyoaru medicines. ??? Any problems you or family members have had with anesthetic medicines. ??? Any bleeding problems you have. ??? Any surgeries you have had. ??? Any medical conditions you have. ??? Whether you are or may be . What are the risks? Generally, this is a safe procedure. However, problems may occur, including: ??? Infection. ??? Bleeding. ??? Allergic reactions to medicines. ??? Damage to nearby structures or organs, such as tearing (perforation) of the ureter. ??? Movement of the stent away from where it is placed during surgery (migration). ??? Buildup of a crust or hard coating (encrustation) on the stent. This happens when bacteria in the body form crystals on the stent, causing it to weaken. What happens before the procedure? Medicines Ask your health care provider about: ??? Changing or stopping your regular medicines. These include any diabetes medicines or blood thinners you take. ??? Taking medicines such as aspirin and ibuprofen. These medicines can thin your blood. Do not take them unless your health care provider tells you to. ??? Taking wzsb-csd-hrizwxk medicines, vitamins, herbs, and supplements. When to stop eating and drinking Follow instructions from your health care provider about what you may eat and drink. These may include: ??? 8 hours before your procedure ? Stop eating most foods. Do not eat meat, fried foods, or fatty foods. ? Eat only light foods, such as toast or crackers. ? All liquids are okay except energy drinks and alcohol. ??? 6 hours before your procedure ? Stop eating. ? Drink only clear liquids, such as water, clear fruit juice, black coffee, plain tea, and sports drinks. ? Do not drink energy drinks or alcohol. ??? 2 hours before your procedure ? Stop drinking all liquids. ? You may be allowed to take medicines with small sips of water. If you do not follow your health care provider's instructions, your procedure may be delayed or canceled. General instructions ??? Do not use any products that contain nicotine or tobacco for at least 4 weeks before the procedure. These products include cigarettes, chewing tobacco, and vaping devices, such as e-cigarettes. If you need help quitting, ask your health care provider. ??? You may have an exam or testing, such as imaging or blood tests. ??? If you will be going home right after the procedure, plan to have a responsible adult: ? Take you home from the hospital or clinic. You will not be allowed to drive. ? Care for you for the time you are told. ??? Ask your health care provider what steps will be taken to help prevent infection. These steps may include: ? Removing hair at the surgery site. ? Washing skin with a soap that kills germs. ? Taking antibiotic medicine. What happens during the procedure? An IV will be inserted into one of your veins. ??? You may be given: ? A medicine to help you relax (sedative). ? A medicine to make you fall asleep (general anesthetic). ??? A thin, tube-shaped instrument with a light and tiny camera at the end (cystoscope) will be inserted into your urethra. The urethra is the part of your body that drains urine from the bladder. The urethra opens at the end of the penis or in front of the vaginal opening. ??? The cystoscope will be passed into your bladder. ??? Guided imagery using X-ray may be used to pass a thin wire (guide wire) through your bladder and into your ureter. This wire is used to guide the stent into your ureter. ??? The stent will be inserted into your ureter. ??? The guide wire and the cystoscope will be removed. ??? A thin, flexible tube (catheter) may be put through your urethra so that one end is in your bladder. This helps to drain urine from your bladder. The procedure may vary among hospitals and health care providers. What happens after the procedure? Your blood pressure, heart rate, breathing rate, and blood oxygen level will be monitored until you leave the hospital or clinic. ??? You may continue to get medicine and fluids through an IV. ??? You may have some soreness or pain in your abdomen and urethra. You may be given medicines for this. ??? You will be encouraged to get up and walk around as soon as you can. ??? You may have a catheter draining your urine. Summary ??? Ureteral stent implantation is a procedure to insert a flexible, soft, plastic tube (stent) into a ureter. ??? You may have a stent implanted to support the ureter while it heals after a procedure or to open the flow of urine if there is a blockage. ??? You may have a stent for just a few weeks, or you may have a long-term stent that will need to be replaced every few months. ??? Follow instructions from your health care provider about taking medicines and about eating and drinking before the procedure. This information is not intended to replace advice given to you by your health care provider. Make sure you discuss any questions you have with your health care provider. Document Revised: 10/12/2022 Document Reviewed: 10/12/2022 [employer] Patient Education ??? 2023 [employer] Hydronephrosis Hydronephrosis is the swelling of one or both kidneys due to a blockage that stops urine from flowing out of the body. Kidneys filter waste from the blood and produce urine. This condition can lead to kidney failure and may become life-threatening if not treated promptly. What are the causes? In infants and children, common causes include problems that occur when a baby is developing in the womb. These can include problems in the kidneys or in the tubes that drain urine into the bladder (ureters). In adults, common causes include: ??? Kidney stones. ??? . ??? A tumor or cyst in the abdomen or pelvis. ??? An enlarged prostate gland. Other causes include: ??? Bladder infection. ??? Scar tissue from a previous surgery or injury. ??? A blood clot. ??? Cancer of the prostate, bladder, uterus, ovary, or colon. What are the signs or symptoms? Symptoms of this condition include: ??? Pain or discomfort in your side (flank) or abdomen. ??? Swelling in your abdomen. ??? Nausea and vomiting. ??? Fever. ??? Pain when passing urine. ??? Feelings of urgency when you need to urinate. ??? Urinating more often than normal. In some cases, you may not have any symptoms. How is this diagnosed? This condition may be diagnosed based on: ??? Your symptoms and medical history. ??? A physical exam. ??? Blood and urine tests. ??? Imaging tests, such as an ultrasound, CT scan, or MRI. ??? A procedure to look at your urinary tract and bladder by inserting a scope into the urethra (cystoscopy). How is this treated? Treatment for this condition depends on where the blockage is, how long it has been there, and what caused it. The goal of treatment is to remove the blockage. Treatment may include: ??? Antibiotic medicines to treat or prevent infection. ??? A procedure to place a small, thin tube (stent) into a blocked ureter. The stent will keep the ureter open so that urine can drain through it. ??? A nonsurgical procedure that crushes kidney stones with shock waves (extracorporeal shock wave lithotripsy). ??? If kidney failure occurs, treatment may include dialysis or a kidney transplant. Follow these instructions at home: ??? Take ipni-urr-fmhvhfk and prescription medicines only as told by your health care provider. ??? If you were prescribed an antibiotic medicine, take it exactly as told by your health care provider. Do not stop taking the antibiotic even if you start to feel better. ??? Rest and return to your normal activities as told by your health care provider. Ask your health care provider what activities are safe for you. ??? Drink enough fluid to keep your urine pale yellow. ??? Keep all follow-up visits. This is important. Contact a health care provider if: ??? You continue to have symptoms after treatment. ??? You develop new symptoms. ??? Your urine becomes cloudy or bloody. ??? You have a fever. Get help right away if: ??? You have severe flank or abdominal pain. ??? You cannot drink fluids without vomiting. Summary ??? Hydronephrosis is the swelling of one or both kidneys due to a blockage that stops urine from flowing out of the body. ??? Hydronephrosis can lead to kidney failure and may become life-threatening if not treated promptly. ??? The goal of treatment is to remove the blockage. It may include a procedure to insert a stent into a blocked ureter, a procedure to break up kidney stones, or taking antibiotic medicines. ??? Follow your health care provider's instructions for taking care of yourself at home, including instructions about drinking fluids, taking medicines, and limiting activities. This information is not intended to replace advice given to you by your health care provider. Make sure you discuss any questions you have with your health care provider. Document Revised: 12/24/2020 Document Reviewed: 12/24/2020 [employer] Patient Education ??? 2023 [employer]. Patient Portal You may access all of your results and other medical record information on our secure patient portal. If you are not signed up for this yet, please contact Laura Sapiens at [phone] to get signed up today. Language Information Language assistance services are available as needed. UROLOGY OFFICE/CLINIC NOTE Observed: 9:36 AM Status: F Source: [facility] Urology Office/Clinic Note Chief Complaint new pt HPI Staff Pt is a 69 year old female referred for hydronephrosis found on PET scan Pt denies pain/burning denies visible blood Pt reports occasional flank pain History of Present Illness Tests reviewed: reviewed UA, PET, CMP I have reviewed the previous health record information and history for this patient from external providers. I have reviewed and verified the staff HPI to be accurate for this encounter. Review of Systems PHQ Score Initial Depression Screen Score: 0 SCORE ROS - Provider Constitutional: denies weight loss, denies hot flashes. Eyes: denies eye problems. Gastrointestinal: denies nausea, denies vomiting. Cardiovascular: denies chest pain or angina. Integumentary: no dryness Musculoskeletal: denies musculoskeletal symptoms. ENMT: denies otolaryngeal symptoms. Respiratory: no shortness of breath. Heme/Lymph: denies easy bleeding tendency, denies easy bruising tendency. Psychiatric: no confusion, no anxiety. Genitourinary: See HPI. Physical Exam Vitals & Measurements T: 36.8 ???C(Tympanic) HR: 68(Peripheral) RR: 16 BP: 128/70 HT: 164 cm HT: 65 in WT: 109.349 lb WT: 49.6 kg BMI: 18.44 General Appearance: alert , no acute distress, well nourished, well developed female. Assessment/Plan Mirian is a 69 yo F new pt referred by Dr. Vines for hydro per PET scan. BBS 11. 1. Hydronephrosis (N13.30: Unspecified hydronephrosis) [place] [facility] [place] similar to prior exam (CT on 01/29/25), presumably secondary to extrinsic compression of ureter distally. Most recent renal function 05/28/25 - BUN 14, Cr 0.76, GFR >60 Reviewed imaging results. UA shows trace-intact blood wo signs of infection, clinically neg. Reports an enlarged/swollen lymph node on R. Denies any R flank pain. Discussed possible etiologies for hydronephrosis, likely related to lymph involvement. Discussed possible options including ureteral stent placement vs nephrostomy tube. Risks/benefits of each discussed. Pt elects to have ureteral stent placed. Educated pt on irritation which can be managed with anticholinergics. -Will schedule Cysto with RG and Possible ureteroscopy and Right JJ Stent Placement. The procedure risks, benefits, details, and treatment alternatives have been discussed. These include the need for additional procedures, bleeding, infection, injury to the ureter, moderate to severe bladder irritation from the stent (with frequent urination, urgency, urinary leakage), moderate flank discomfort, among others. Stent removal or changes may also be required in the future. Full informed consent has been obtained. Will order General anesthesia. 2. Primary malignant neoplasm of ovary (C56.9: Malignant neoplasm of unspecified ovary) Hx of metastatic ovarian cancer, dx' d 01/2025. S/p oophorectomy 05/09/25 [facility]. Undergoing chemo since 02/2025. Following with [facility]. Follow-up With When Contact Information [facility]SON, Carlin [place], URL [address] [place] [address] [place] [address] Additional Instructions: sched cysto, R stent placement Patient Education Ureteral Stent Implantation Hydronephrosis I, Karla Zaman, personally scribed for Dr. Solis on 06/04/2025 11:08:16. . Documentation recorded by the scribeKarla, accurately reflects the services(s) I performed and decisions made by me. Authenticated by Dr. Solis on 06/04/2025 11:13:58. Problem List/Past Medical History Ongoing Anemia Antibody studies abnormal Axillary lymphadenopathy Carcinomatosis of peritoneal cavity Constipation Cyst of right breast Disorder associated with menstruation AND/OR menopause Eczema Edema Edema of uvula Eosinophil count above reference range Eruption Familial eosinophilia H/O: skin disorder Hydronephrosis Idiopathic hypereosinophilic syndrome Lymphadenopathy Malignant neoplasm of ovary Nausea Non-celiac gluten sensitivity Noninflammatory disorder of uterus Osteoarthritis of right hip joint Pain due to neoplastic disease.. Pain of breast Primary malignant neoplasm of ovary Senile osteoporosis Urticaria Varicose veins of lower extremity Historical No qualifying data Procedure/Surgical History Laparoscopy, surgical; with fulguration or excision of lesions of the ovary, pelvic viscera, or peritoneal surface by any method (05/09/2025), Laparoscopy, surgical; with removal of adnexal structures (partial or total oophorectomy and/or salpingectomy) (05/09/2025), Positron emission tomography with computed tomography (04/18/2025), Screening colonoscopy (01/10/2025). Medications No active medications Allergies No Known Medication Allergies Social History Alcohol Never., 06/03/2025 Substance Abuse Never., 06/03/2025 Tobacco Never (less than 100 in lifetime) Tobacco Use:. Never Smokeless Tobacco Use:., 06/04/2025 Family History Hypertension: Mother and Father. Immunizations Vaccine Date Status zoster vaccine, inactivated 03/08/2020 Recorded zoster vaccine, inactivated 11/27/2019 Recorded Lab Results Ambulatory Point of Care Results Bilirubin Urine Dipstick: 1+ Small (06/04/25 10:05:00) Blood Urine Dipstick: Trace-intact (06/04/25 10:05:00) Glucose Urine Dipstick: Negative (06/04/25 10:05:00) Ketones Urine Dipstick: Trace - 5 mg/dl (06/04/25 10:05:00) Leukocytes Urine Dipstick: Negative (06/04/25 10:05:00) Nitrite Urine Dipstick: Negative (06/04/25 10:05:00) Protein Urine Dipstick: 1+ (30 mg/dl) (06/04/25 10:05:00) Urine Appearance Urine Dipstick: Clear (06/04/25 10:05:00) Urine Color Urine Dipstick: Light yellow (06/04/25 10:05:00) Urobilinogen Urine Dipstick: Normal 0.2-1 EU/dl (06/04/25 10:05:00) pH Urine Dipstick: 6 (06/04/25 10:05:00) Result Comment: Electronical ly Signed By: Carlin SOLIS MD.br\Date and Time Signed: 06/04/25 11:14 EDT\.br\Electronically Co-Signed By: Karla Zaman.giana\Date and Time Co-Signed: 06/04/25 11:10 EDT PROGRESS Observed: 05/29/2025 3:30 PM Status: COMPLETED [facility] [id number] Author: JUAN WHALEN MD Service: ? Author Type: Physician Type: Progress Notes Filed: 05/29/2025 16:23 Note Text: Gynecologic Oncology [facility] Follow Up Re: Mirian Barker Antoni [facility]#: [id number] Date of service:05/29/2025 Lisandro Vines DO Dear Lisandro: Briefly, she is a 69 year old female has a past medical history of Acute pharyngitis, unspecified (01/02/2024), Age-related osteoporosis without current pathological fracture (05/06/2024), Cyst of right breast (03/29/2022), Eczema (05/08/2024), Eosinophilia (05/08/2024), H/O skin disorder (01/29/2025), 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 She presents today to establish care with urogynaecologist oncology. 08/24/2022 INVITAE TESTIN11/23/2024 Small Bowel Biopsy: 01/15/2025 CT ABD/PELVIS: IMPRESSION: BIBASILAR ATELECTASIS OR SCARRING. TINY INDETERMINANT HEPATIC HYPODENSITIES. NO BOWEL OR URINARY TRACT OBSTRUCTION. ABDOMINAL AND PELVIC LYMPHADENOPATHY. FOLLOW-UP WILL BE NEEDED TO ASSESS FOR THE POSSIBILITY OF MALIGNANCY, PARTICULARLY LYMPHOMA. SUSPECTED UTERINE FIBROID. UNDER DISTENDED URINARY BLADDER WITH APPARENT WALL THICKENING 01/17/2025 Axilla US: 01/18/2025 Axilla Biopsy: 01/24/2025 US FEMALE PELVIS: IMPRESSION: 1. Heterogeneous uterine echotexture with multiple fibroids, one calcified. 2. Right ovarian subcentimeter shadowing echogenic focus. This may represent a calcification however, calcified mass lesion can not be entirely excluded. 01/29/2025 CEA: 1.3 01/29/2025 PET: 01/29/2025 1:08 PM EDT 1. FDG avid lymph nodes involving the neck, chest, abdomen and pelvis as described above consistent with metastatic disease. 2. FDG avid lesion involving the liver suggestive of metastatic disease. 3. Abnormal activity involving the L4 vertebral body suggestive of metastatic disease. 4. Ill-defined activity involving the right breast without definitive lesion. Finding is nonspecific. If further evaluation is needed, diagnostic mammography/ultrasound could BE performed. 02/06/2025 Visit: 1. 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 Disease is not resectable due to multiple locations. - Initiate chemotherapy with Carboplatin and Paclitaxel. - Obtain a PET scan after 3 cycles (approximately 9 weeks) to assess response. - Discussed potential for surgery post-chemotherapy if disease is controlled. - Consider PARP inhibitor therapy post-chemotherapy. - Signed consent for chemotherapy so authorization for treatment at [place] can be initiated. - Patient to follow-up with Dr. Evangelista at [facility] to start treatment. 2. Ovarian cancer genetic susceptibility (Z15.02) BRIP1 mutation positive; family history significant for BRIP1 mutation in father and two brothers with pancreatic cancer. - Genetic counseling and testing for family members as indicated. 3. Other abnormal tumor markers (R97.8) CA-125 level elevated at 258 U/mL (normal <39 U/mL) on 01/29. - Monitor CA-125 levels to assess treatment response. 04/18/2025 PET- OSH IMPRESSION: Significant interval treatment response involving previously significantly FDG avid cervical, axillary, mediastinal, epicardial, or right hilar, and retroperitoneal lymphadenopathy. There are a few residual mildly prominent but less FDG avid lymph nodes noted within the mediastinum, axilla, and right iliac chain. There is an 11 mm soft tissue attenuating structure in the right lower lobe posteriorly and laterally with a maximum SUV of 2.2. This is new when compared to the prior exam and is suspicious for a metastatic focus. There is a 4 mm subtly FDG avid nodule within the right middle lobe appears to be new. There is a maximum SUV of 0.6. Subtle asymmetric radiotracer accumulation is noted in the right oropharyngeal mucosa along the right glossotonsillar sulcus with a maximum SUV of 3.2. This is nonspecific but persists when compared to the prior exam. Malignancy is not excluded. Direct visualization is recommended. 04/20/2025 OSH Visit Completed 4 cycles of Carbo/taxol. she does note slight neuropathy and a little bit in her toes. she freezes her hands and feet for chemo. ASSESSMENT/PLAN Metastatic Stage IV ovarian cancer. Biopsy R axilla confirms. ca125 baseline 258. multifocal adenopathy, no obvious visceral disease Pet/ct noted mediastinal, right hilar, right axillary adenopathy. abnormal R lobe liver SUV 3.4 unclear if involved. Retroperitoneal adenopathy and L4 vertebral body metastatic disease. No evidence Mismatch repair abnormality. PATHOGENETIC BRIP1 mutation. carboplatin paclitaxel began january 2025. Dr Whalen is comanaging. c1d1 02/13/25 c2d1 scheduled for 03/06/25. c3d1 03/30/25 c4d1 04/20/25 PEt/ct around 04/18/25. with near complete response. will send back to dr whalen for discussion. Dermatologic concerns. Eczematous condition systemic severe. i am hesitant for immunotherapy. will consider in future as Dr whalen is primarily managing. She has been undergoing full body phototherapy since May or june 2024. will give 6 cycles and reconsider for resection and parp inhibitor. 04/27/2025 Visit: The patient has received 4 cycles of neoadjuvant chemotherapy and has had an excellent response. The small areas that are seen on her PET scan now have very low FDG activity and are of questionable significance. The standard practice with neoadjuvant chemotherapy is to consider interval debulking surgery after 3-4 cycles. 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 Only 3 to 4% of patients who undergo neoadjuvant chemotherapy have a complete pathologic response. About 20% ovarian cancer patients have a germline mutation in BRCA1, 2 or other genes along the pathway. It is likely the patient's to have a complete pathologic response are BRCA mutated and therefore roughly 20% of the BRCA mutated patients may have a pathologic complete response. She has not had any abdominal surgery and I think would be reasonable to perform a laparoscopic bilateral salpingo-oophorectomy since this is where the tumor has likely arisen. Of note, her prior PET scan at diagnosis did not demonstrate any specific uptake in the pelvic organs. I would propose that this be done at this time before pursuing cycle #5. Typically patients who undergo interval debulking surgery received 3 of 4 cycles of chemotherapy after surgery. If the patient had a pathologic complete response probably given 3 cycles would be appropriate. In view of the patient's advanced stage stage IVb and received neoadjuvant chemotherapy the patient should be at significant risk for recurrence. Since the patient has a BRCA like mutation maintenance therapy with a PARP inhibitor would be reasonable. There is currently an ongoing [employer] sponsored trial of 1 versus 2 years of olaparib maintenance for BRCA mutated stage III and IV patients which the patient would be eligible for. 05/09/2025 Laparoscopic BSO, resection of right peritoneal nodule FINAL DIAGNOSIS A. Fallopian tube and ovary, left, salpingo-oophorectomy - Benign ovaries and fallopian tube B. Fallopian tube and ovary, right, salpingo-oophorectomy - Rare residual tumor cells in ovary with therapy effect - Benign fallopian tube C. Soft tissue, paraovarian, right, excision - Hyalinized and calcified nodule, negative for carcinoma 05/14/2025 [facility] 1. Final pathology is still pending. Will notify patient of results once available by [facility]. 2. Postop restrictions and wound care reviewed. 3. Follow up with Dr. Whalen as planned on 05/29/2025. Call sooner if any questions or concerns. SUBJECTIVE/INTERVAL HISTORY: Patient is feeling well and denies shortness of breath, nausea, vomiting, constipation, problems urinating, unexplained weight loss, or vaginal bleeding. Patient with a history of BRIP1 mutation and extensive metastatic ovarian cancer, including bony involvement, is currently managed with chemotherapy. She was initially treated with four cycles of neoadjuvant chemotherapy, including paclitaxel and carboplatin, prior to surgery. Following surgery, which revealed only microscopic residual disease. She has completed four cycles of paclitaxel and carboplatin, with two more cycles planned. 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 She notes that the neuropathy has slightly improved over the past six weeks but remains a concern. She has been using cold mitts on her hands and feet during treatment to mitigate symptoms. Her CA-125 level was 258 U/mL before starting treatment and has decreased to 33 U/mL. She is experiencing hip pain, for which a hip replacement has been recommended, but she is hesitant to proceed with surgery due to concerns about her prognosis. She manages the pain with ibuprofen and continues to exercise regularly. She follows a vegetarian diet and inquires about natural remedies to alleviate neuropathy. OBJECTIVE: BP 140/70 (BP Site: Left Arm, BP Position: Sitting, BP Cuff Size: Regular Adult) Pulse 80 Temp 36.8 ?C (98.2 ?F) (Temporal) Wt 48.8 kg (107 lb 9.4 oz) SpO2 98% BMI 17.36 kg/m? Abdominal - Incision well-healed, without evidence of hernia or infection. IMPRESSION/PLAN: 05/29/2025 1. Malignant neoplasm of bilateral ovaries (HCC) (C56.3) 2. Post-operative state (Z98.890) Patient's wounds are healing well without signs of infection. Patient with extensive ovarian cancer, including bony involvement, now post-operative with only microscopic residual disease. Completed 4 cycles of neoadjuvant chemotherapy; currently experiencing chemotherapy-induced neuropathy. - Recommended switching from Taxol to Taxotere 60 mg/m? due to neuropathy; discussed that Taxotere is equally effective with less neuropathy risk. - If neuropathy worsens, advised discontinuing taxanes and continuing carboplatin alone for a few additional cycles. - Recommended a total of 8 chemotherapy cycles (4 pre-op, 4 post-op) based on standard protocol. - Discussed PARP inhibitor maintenance therapy after completion of chemotherapy, including trial data, benefits, and limitations. - Advised close follow-up every 3 months after chemotherapy completion. - Discussed that immunotherapy is not effective for this cancer type. - Advised that natural supplements and dietary changes are unlikely to significantly impact neuropathy. - Coordinated with Dr. Evangelista regarding chemotherapy adjustments. 3. BRCA1 gene mutation positive (Z15.01) Patient's daughter has a BRCA1 variant of unknown significance; with a personal history of breast cancer. - Discussed that the BRCA1 variant is not currently considered clinically significant. - Patient is very interested in undergoing bilateral oophorectomy and salpingectomy. Advised that oophorectomy and salpingectomy are not commonly indicated based on current genetic findings. Although I have performed bilateral oophorectomy and salpingectomy for some patients who are nurses whose mother had ovarian cancer and genetic studies demonstrated only BRCA VUS at the recommendation of the Technical Coordinator. Provider Attestation: I, Juan Whalen MD, personally performed the services described in this documentation. All medical record entries made by the scribe were reviewed. The chart and discharge instructions (if applicable) and I agree that the record reflects my personal performance and is accurate and complete. Juan Whalen MD May 29, 2025 4:22 PM I have confirmed and edited as necessary, the history of the present illness (HPI). Interval changes in the history of present illness are noted. I have confirmed and edited as necessary, the PFSH and ROS obtained by others. I saw the patient and personally participated in the gaming components and agree with the documented findings and plan. Sincerely, Juan Whalen M.D. Reviewed and corrected by Juan Whalen M.D. Recording using ambient [employer] software for draft documentation of the visit was discussed with the patient/authorized lead customer service representative; all questions welcomed and answered. Patient/authorized lead customer service representative agreed to proceed CC: Conner Stanley DO (PCP) The previous note from Dr Whalen on was copied forward and the necessary changes were made above. CNOVSP Observed: 05/29/2025 3:30 PM Status: COMPLETED Source: [facility] Visit (SP) Office ([place]) MIRIAN CORRALES ([id number]) 1955 F Date Time Provider Department 05/29/25 3:30 PM JUAN WHALEN During your visit today, we recorded the following information about you: Temperature Pulse Blood pressure Weight 98.2 degrees 80/minute 140/70 48.8 kg Juan Whalen MD 05/29/2025 4:23 PM Signed Gynecologic Oncology [facility] Follow Up Re: Mirian Corrales [facility]#: [id number] Date of service:05/29/2025 Lisandro Vines DO Dear Lisandro: Briefly, she is a 69 year old female has a past medical history of Acute pharyngitis, unspecified (01/02/2024), Age-related osteoporosis without current pathological fracture (05/06/2024), Cyst of right breast (03/29/2022), Eczema (05/08/2024), Eosinophilia (05/08/2024), H/O skin disorder (01/29/2025), 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 She presents today to establish care with urogynaecologist oncology. 08/24/2022 INVITAE TESTIN11/23/2024 Small Bowel Biopsy: 01/15/2025 CT ABD/PELVIS: IMPRESSION: BIBASILAR ATELECTASIS OR SCARRING. TINY INDETERMINANT HEPATIC HYPODENSITIES. NO BOWEL OR URINARY TRACT OBSTRUCTION. ABDOMINAL AND PELVIC LYMPHADENOPATHY. FOLLOW-UP WILL BE NEEDED TO ASSESS FOR THE POSSIBILITY OF MALIGNANCY, PARTICULARLY LYMPHOMA. SUSPECTED UTERINE FIBROID. UNDER DISTENDED URINARY BLADDER WITH APPARENT WALL THICKENING 01/17/2025 Axilla US: 01/18/2025 Axilla Biopsy: 01/24/2025 US FEMALE PELVIS: IMPRESSION: 1. Heterogeneous uterine echotexture with multiple fibroids, one calcified. 2. Right ovarian subcentimeter shadowing echogenic focus. This may represent a calcification however, calcified mass lesion can not be entirely excluded. 01/29/2025 CEA: 1.3 01/29/2025 PET: 01/29/2025 1:08 PM EDT 1. FDG avid lymph nodes involving the neck, chest, abdomen and pelvis as described above consistent with metastatic disease. 2. FDG avid lesion involving the liver suggestive of metastatic disease. 3. Abnormal activity involving the L4 vertebral body suggestive of metastatic disease. 4. Ill-defined activity involving the right breast without definitive lesion. Finding is nonspecific. If further evaluation is needed, diagnostic mammography/ultrasound could BE performed. 02/06/2025 Visit: 1. 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 Disease is not resectable due to multiple locations. - Initiate chemotherapy with Carboplatin and Paclitaxel. - Obtain a PET scan after 3 cycles (approximately 9 weeks) to assess response. - Discussed potential for surgery post-chemotherapy if disease is controlled. - Consider PARP inhibitor therapy post-chemotherapy. - Signed consent for chemotherapy so authorization for treatment at [place] can be initiated. - Patient to follow-up with Dr. Evangelista at [facility] to start treatment. 2. Ovarian cancer genetic susceptibility (Z15.02) BRIP1 mutation positive; family history significant for BRIP1 mutation in father and two brothers with pancreatic cancer. - Genetic counseling and testing for family members as indicated. 3. Other abnormal tumor markers (R97.8) CA-125 level elevated at 258 U/mL (normal <39 U/mL) on 01/29. - Monitor CA-125 levels to assess treatment response. 04/18/2025 PET- OSH IMPRESSION: Significant interval treatment response involving previously significantly FDG avid cervical, axillary, mediastinal, epicardial, or right hilar, and retroperitoneal lymphadenopathy. There are a few residual mildly prominent but less FDG avid lymph nodes noted within the mediastinum, axilla, and right iliac chain. There is an 11 mm soft tissue attenuating structure in the right lower lobe posteriorly and laterally with a maximum SUV of 2.2. This is new when compared to the prior exam and is suspicious for a metastatic focus. There is a 4 mm subtly FDG avid nodule within the right middle lobe appears to be new. There is a maximum SUV of 0.6. Subtle asymmetric radiotracer accumulation is noted in the right oropharyngeal mucosa along the right glossotonsillar sulcus with a maximum SUV of 3.2. This is nonspecific but persists when compared to the prior exam. Malignancy is not excluded. Direct visualization is recommended. 04/20/2025 OSH Visit Completed 4 cycles of Carbo/taxol. she does note slight neuropathy and a little bit in her toes. she freezes her hands and feet for chemo. ASSESSMENT/PLAN Metastatic Stage IV ovarian cancer. Biopsy R axilla confirms. ca125 baseline 258. multifocal adenopathy, no obvious visceral disease Pet/ct noted mediastinal, right hilar, right axillary adenopathy. abnormal R lobe liver SUV 3.4 unclear if involved. Retroperitoneal adenopathy and L4 vertebral body metastatic disease. No evidence Mismatch repair abnormality. PATHOGENETIC BRIP1 mutation. carboplatin paclitaxel began january 2025. Dr Whalen is comanaging. c1d1 02/13/25 c2d1 scheduled for 03/06/25. c3d1 03/30/25 c4d1 04/20/25 PEt/ct around 04/18/25. with near complete response. will send back to dr whalen for discussion. Dermatologic concerns. Eczematous condition systemic severe. i am hesitant for immunotherapy. will consider in future as Dr whalen is primarily managing. She has been undergoing full body phototherapy since May or june 2024. will give 6 cycles and reconsider for resection and parp inhibitor. 04/27/2025 Visit: The patient has received 4 cycles of neoadjuvant chemotherapy and has had an excellent response. The small areas that are seen on her PET scan now have very low FDG activity and are of questionable significance. The standard practice with neoadjuvant chemotherapy is to consider interval debulking surgery after 3-4 cycles. 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 Only 3 to 4% of patients who undergo neoadjuvant chemotherapy have a complete pathologic response. About 20% ovarian cancer patients have a germline mutation in BRCA1, 2 or other genes along the pathway. It is likely the patient's to have a complete pathologic response are BRCA mutated and therefore roughly 20% of the BRCA mutated patients may have a pathologic complete response. She has not had any abdominal surgery and I think would be reasonable to perform a laparoscopic bilateral salpingo-oophorectomy since this is where the tumor has likely arisen. Of note, her prior PET scan at diagnosis did not demonstrate any specific uptake in the pelvic organs. I would propose that this be done at this time before pursuing cycle #5. Typically patients who undergo interval debulking surgery received 3 of 4 cycles of chemotherapy after surgery. If the patient had a pathologic complete response probably given 3 cycles would be appropriate. In view of the patient's advanced stage stage IVb and received neoadjuvant chemotherapy the patient should be at significant risk for recurrence. Since the patient has a BRCA like mutation maintenance therapy with a PARP inhibitor would be reasonable. There is currently an ongoing [employer] sponsored trial of 1 versus 2 years of olaparib maintenance for BRCA mutated stage III and IV patients which the patient would be eligible for. 05/09/2025 Laparoscopic BSO, resection of right peritoneal nodule FINAL DIAGNOSIS A. Fallopian tube and ovary, left, salpingo-oophorectomy - Benign ovaries and fallopian tube B. Fallopian tube and ovary, right, salpingo-oophorectomy - Rare residual tumor cells in ovary with therapy effect - Benign fallopian tube C. Soft tissue, paraovarian, right, excision - Hyalinized and calcified nodule, negative for carcinoma 05/14/2025 [facility] 1. Final pathology is still pending. Will notify patient of results once available by Stretch. 2. Postop restrictions and wound care reviewed. 3. Follow up with Dr. Whalen as planned on 05/29/2025. Call sooner if any questions or concerns. SUBJECTIVE/INTERVAL HISTORY: Patient is feeling well and denies shortness of breath, nausea, vomiting, constipation, problems urinating, unexplained weight loss, or vaginal bleeding. Patient with a history of BRIP1 mutation and extensive metastatic ovarian cancer, including bony involvement, is currently managed with chemotherapy. She was initially treated with four cycles of neoadjuvant chemotherapy, including paclitaxel and carboplatin, prior to surgery. Following surgery, which revealed only microscopic residual disease. She has completed four cycles of paclitaxel and carboplatin, with two more cycles planned. 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 She notes that the neuropathy has slightly improved over the past six weeks but remains a concern. She has been using cold mitts on her hands and feet during treatment to mitigate symptoms. Her CA-125 level was 258 U/mL before starting treatment and has decreased to 33 U/mL. She is experiencing hip pain, for which a hip replacement has been recommended, but she is hesitant to proceed with surgery due to concerns about her prognosis. She manages the pain with ibuprofen and continues to exercise regularly. She follows a vegetarian diet and inquires about natural remedies to alleviate neuropathy. OBJECTIVE: BP 140/70 (BP Site: Left Arm, BP Position: Sitting, BP Cuff Size: Regular Adult) Pulse 80 Temp 36.8 ?C (98.2 ?F) (Temporal) Wt 48.8 kg (107 lb 9.4 oz) SpO2 98% BMI 17.36 kg/m? Abdominal - Incision well-healed, without evidence of hernia or infection. IMPRESSION/PLAN: 05/29/2025 1. Malignant neoplasm of bilateral ovaries (HCC) (C56.3) 2. Post-operative state (Z98.890) Patient's wounds are healing well without signs of infection. Patient with extensive ovarian cancer, including bony involvement, now post-operative with only microscopic residual disease. Completed 4 cycles of neoadjuvant chemotherapy; currently experiencing chemotherapy-induced neuropathy. - Recommended switching from Taxol to Taxotere 60 mg/m? due to neuropathy; discussed that Taxotere is equally effective with less neuropathy risk. - If neuropathy worsens, advised discontinuing taxanes and continuing carboplatin alone for a few additional cycles. - Recommended a total of 8 chemotherapy cycles (4 pre-op, 4 post-op) based on standard protocol. - Discussed PARP inhibitor maintenance therapy after completion of chemotherapy, including trial data, benefits, and limitations. - Advised close follow-up every 3 months after chemotherapy completion. - Discussed that immunotherapy is not effective for this cancer type. - Advised that natural supplements and dietary changes are unlikely to significantly impact neuropathy. - Coordinated with Dr. Evangelista regarding chemotherapy adjustments. 3. BRCA1 gene mutation positive (Z15.01) Patient's daughter has a BRCA1 variant of unknown significance; with a personal history of breast cancer. - Discussed that the BRCA1 variant is not currently considered clinically significant. - Patient is very interested in undergoing bilateral oophorectomy and salpingectomy. Advised that oophorectomy and salpingectomy are not commonly indicated based on current genetic findings. Although I have performed bilateral oophorectomy and salpingectomy for some patients who are nurses whose mother had ovarian cancer and genetic studies demonstrated only BRCA VUS at the recommendation of the Technical Coordinator. Provider Attestation: I, Juan Whalen MD, personally performed the services described in this documentation. All medical record entries made by the AI scribe were reviewed. The chart and discharge instructions (if applicable) and I agree that the record reflects my personal performance and is accurate and complete. Juan Whalen MD May 29, 2025 4:22 PM I have confirmed and edited as necessary, the history of the present illness (HPI). Interval changes in the history of present illness are noted. I have confirmed and edited as necessary, the PFSH and ROS obtained by others. I saw the patient and personally participated in the gaming components and agree with the documented findings and plan. Sincerely, Juan Whalen M.D. Reviewed and corrected by Juan Whalen M.D. Recording using ambient [employer] software for draft documentation of the visit was discussed with the patient/authorized lead customer service representative; all questions welcomed and answered. Patient/authorized lead customer service representative agreed to proceed CC: Conner Stanley DO (PCP) The previous note from Dr Whalen on was copied forward and the necessary changes were made above. Allergies As of Date: 05/29/2025 Noted Allergy Reaction DIPHENYLGUANIDINE 11/17/2024 2 - Rash IODOPROPYNYL BUTYLCARBAMATE 11/17/2024 2 - Rash WHEAT 08/24/2019 7 - Swelling DAIRY AID (LACTASE) 08/24/2019 7 - Swelling Comments: Bloating Date Reviewed: 05/29/2025 Reviewed by: Vikki Link MA - Fully Assessed Reason for Visit: Post-Op Visit [1236] Primary Visit Diagnosis:Malignant neoplasm of bilateral ovaries (HCC) [C56.3] Other Visit Diagnoses:BRCA1 gene mutation positive [Z15.01, Z15.09] Post-operative state [Z98.890] Prescriptions as of 05/29/2025 - acetaminophen (TYLENOL EXTRA STRENGTH) 500 mg tablet Take 2 tablets by mouth every 6 hours as needed for pain. - ondansetron (ZOFRAN) 4 mg tablet Take 1 tablet by mouth every 6 hours as needed for nausea/vomiting. - Magnesium 200 mg tab Take by mouth. - Bisacodyl (DULCOLAX) 5 mg tab Take 1 tablet by mouth as directed. Take 2 tablets at 3pm the day before surgery - polyethylene glycol 3350 (MIRALAX) 17 gram/dose powder Purchase one 238 gram bottle of Miralax Use as directed - calcium carbonate/vitamin D3 (CALCIUM CHEW ORAL) Take by mouth. - white petrolatum (AQUAPHOR) 41 % topical ointment Apply to affected area as needed. - pantoprazole DR (PROTONIX) 40 mg tablet Take 1 tablet by mouth daily at 6 am. Patient should start on May 11, 2024. - Lactobacillus acidophilus (PROBIOTIC ORAL) Take 1 capsule by mouth once daily. - Cholecalciferol, Vitamin D3, 25 mcg (1,000 unit) cap Take 1,000 Units by mouth once daily. 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] 05/06/2024 Age-related osteoporosis without current pathol*05/06/2024 Lymphadenopathy [R59.1] 05/06/2024 Eosinophilia [D72.10] 05/08/2024 Eczema [L30.9] 05/08/2024 Peripheral eosinophilia [D72.19] 05/09/2024 Uvular edema [K13.79] 01/29/2025 Urticaria [L50.9] 01/29/2025 Post menopausal syndrome [N95.1] 06/25/2023 Pain in joint of right hip [M25.551] 10/01/2024 01/29/2025 Other fatigue [R53.83] 10/01/2024 01/29/2025 Osteoarthritis of right hip [M16.11] 10/01/2024 Non-celiac gluten sensitivity [K90.41] 06/25/2023 History of steroid therapy [Z92.241] 10/01/2024 01/29/2025 Abnormal radiographic examination [R93.89] 01/29/2025 01/29/2025 Varicose veins of bilateral lower extremities w*12/08/2022 Other specified noninflammatory disorders of ut*08/08/2024 Mastodynia [N64.4] 03/29/2022 Fatigue [R53.83] 09/26/2024 01/29/2025 H/O skin disorder [Z87.2] 01/29/2025 01/29/2025 Cyst of right breast [N60.01] 03/29/2022 Edema [R60.9] 01/29/2025 01/29/2025 Asymptomatic menopausal state [Z78.0] 03/24/2022 01/29/2025 Acute pharyngitis, unspecified [J02.9] 01/02/2024 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 Pain due to neoplasm [G89.3] 02/17/2025 Weight loss [R63.4] 01/15/2025 Malignant neoplasm of ovary (HCC) [C56.9] 04/20/2025 Constipation [K59.00] 01/10/2025 Axillary lymphadenopathy [R59.0] 04/20/2025 Abdominal pain [R10.9] 01/15/2025 PONV (postoperative nausea and vomiting) [R11.2*05/01/2025 Anemia [D64.9] 05/01/2025 Post-operative state [Z98.890] 05/09/2025 Encounter Status:Closed by JUAN WHALEN on 05/29/25 COMPLETE BLOOD COUNT AUTO DIFF Collected: 05/28/2025 10:09 AM Status: F Source: [facility] TYPE CODE TESTS RESULT OUT OF RANGE REFERENCE UNITS LAB WBC White Blood Count 3.6 Low 3.8-11.6 [CFU]/mL LAB UNWBC Uncorrected WBC 3.6 Low 3.8-11.6 10*3/uL LAB RBC Red Blood Count 3.09 Low 3.60-5.00 10*6/u L LAB HGB Hemoglobin 10.4 Low 11.8-15.4 g/dL LAB HCT Hematocrit 30.9 Low 34.0-46.4 % LAB MCV Mean Corpuscular Volume 100.0 Normal 80-100 fL LAB MCH Mean Corpuscular Hemoglobin 33.8 Normal 24.7-34.3 pg LAB MCHC Mean Corpuscular HGB Conc 33.9 Normal 32.0-35.0 g/dL LAB RDW Red Cell Distribution Width 17.4 High 11.9-15.3 % LAB PLT Platelet Count 278 Normal 150-450 10*3/uL LAB MPV Mean Platelet Volume 7.7 Normal 6.3-10.7 fL LAB NE% Neutrophils % (Auto) 50.3 . % LAB LY% Lymphocytes % (Auto) 21.5 . % LAB MO% Monocytes % (Auto) 14.7 . % LAB EO% Eosinophils % (Auto) 12.3 . % LAB BA% Basophils % (Auto) 1.2 . % LAB NRBC% NRBC% 0.1 Normal 0-0.5 /100{WBC} LAB NE# Neutrophils # (Auto) 1.8 Normal 1.8-7.7 10*3/uL LAB LY# Lymphocytes # (Auto) 0.8 Low 1.00-4.8 10*3/uL LAB MO# Monocytes # (Auto) 0.5 Normal 0.0-0.8 10*3/uL LAB EO# Eosinophils # (Auto) 0.4 Normal 0.0-0.45 10*3/uL LAB BA# Basophils # (Auto) 0.0 Normal 0.0-0.2 10*3/uL Result Comment: PERFORMED BY : [place] [address] PATHOLOGIST EDDY CURRENT INSPECTOR MARISEL MANRIQUE M.D. Performed By: #### CMP, CBC #### [facility] [address] [place] [address] COMPREHENSIVE METABOLIC PANEL Collected: 05/28/2025 1 0:09 AM Status: F Source: [facility] TYPE CODE TESTS RESULT OUT OF RANGE REFERENCE UNITS LAB GLU Glucose 89 Normal 70-100 mg/dL Result Comment: Random Gluco se Reference Range is dependent on time and content of last meal. Glucose of more than 200 mg/dL in a nonstressed, ambulatory subject supports the diagnosis of Diabetes Mellitus. ADA recommended reference range LAB BUN Blood Urea Nitrogen 14 Normal 7-25 mg/d L LAB CREATT Creatinine 0.76 Normal 0.60-1.20 mg/dL LAB GFReNR Estimated GFR >60.0 LAB NA Sodium 138 Normal 136-145 mmol/L LAB K Potassium 4.5 Normal 3.5-5.1 mmol/L LAB CL Chloride 104 Normal 98-107 mmol/L LAB CO2 Carbon Dioxide 30.8 Normal 21.0-31.0 mmol/L LAB GAP Anion Gap 7.7 Normal 6.0-15.0 LAB CA Calcium 9.7 Normal 8.6-10.3 mg/dL LAB TP Total Protein 7.3 Normal 6.4-8.9 g/dL LAB ALB Albumin Level 4.3 Normal 3.5-5.7 g/dL LAB GLOB Globulin 3.0 g/dL LAB AGRATIO Albumin/Globulin Ratio 1.4 LAB BILIT Bilirubin,Total 0.4 Normal 0.3-1.0 mg/dL LAB AST Aspartate Amino Transferase 20 Normal 13-39 U/L LAB ALT Alanine Aminotransferase 12 Normal 7-52 U/L LAB ALP Alkaline Phosphatase 51 Normal 34-104 U/L LAB CRCLPHA Creatinine Clr C alc Pharmacy 51.80 Result Comment: PERFORMED BY : [place] [address] PATHOLOGIST EDDY CURRENT INSPECTOR MARISEL MANRIQUE M.D. Performed By: #### CMP, CBC #### [address] PROGRESS Observed: 05/14/2025 11:00 AM Status: COMPLETED [facility] [id number] Author: ALIYAH RITCHIE APRN.MEAT DEPARTMENT MANAGER Service: ? Author Type: Nurse Practitioner Type: Progress Notes Filed: 05/14/2025 11:06 Note Text: TELEVISIT PROGRESS NOTE I have communicated my name and active licensure. The patient's identity and physical location were verified at the time of this visit. Either the patient or their legal lead customer service representative has been informed of the risks and benefits of -- and alternatives to -- treatment through a remote evaluation and consents to proceed with the evaluation remotely. This is a telephone encounter initiated for an established patient, parent or guardian not originating from a related Evaluation AND Management service provided within the previous 7 days nor leading to an Evaluation AND Management service or procedure within the next 24 hours or soonest available appointment. Patient name and birthday verified: Yes Location of patient: Home Persons Present: patient DATE OF SERVICE: 05/14/2025 PROBLEM: Mirian Corrales presents for postop televisit. SURGERY AND DATE: 05/09/2025 Laparoscopic BSO, resection of right peritoneal nodule PATHOLOGY: In process LINES/DRAINS: None SUBJECTIVE/INTERVAL HISTORY: Mirian Corrales reports that she feels well. No fever or chills. No hot flashes or night sweats. No vaginal bleeding or discharge. No shortness of breath, cough, or chest pain. No incisional redness, swelling, or drainage. Patient reports that her appetite is fair. No abdominal pain, nausea, vomiting, diarrhea, or constipation. No dysuria, gross hematuria, urinary frequency, urinary urgency, or incontinence. No swelling of lower extremities.. Her ECOG performance status is 1 (restricted in physically strenuous activity but ambulatory and able to carry out work of a light or sedentary nature). OBJECTIVE: Deferred 2/2 televisit ASSESSMENT: Ovarian cancer Post operative state PLAN: 1. Final pathology is still pending. Will notify patient of results once available by Stretch. 2. Postop restrictions and wound care reviewed. 3. Follow up with Dr. Whalen as planned on 05/29/2025. Call sooner if any questions or concerns. Appointments for Next 60 Days Date Time Provider Location Dept Phone 05/14/2025 11:00 AM ALIYAH RITCHIE [facility] [phone] 05/29/2025 3:30 PM JUAN WHALEN [facility] [phone] Aliyah Ritchie APRN.MEAT DEPARTMENT MANAGER I spent a total of 10 minutes on the date of the service which included completing clinical documentation, obtaining and/or reviewing separately obtained history, and counseling and educating the patient/family/caregiver. ANES POSTPROC EVAL Observed: 05/09/2025 4:08 PM Status: COMPLETED Source: [facility] HNO ID: [id number] Author: KIERRA PLATT MD Service: ? Author Type: Anesthesiologist Type: Anesthesia Postprocedure Evaluation Filed: 05/09/2025 16:09 Note Text: POST ANESTHESIA EVALUATION NOTE : 1955 Procedure Summary Date: 05/09/25 Room / Location: [address] Anesthesia Start: 1226 Anesthesia Stop: 1356 Procedures: LAPAROSCOPY WITH OOPHORECTOMY AND SALPINGECTOMY (Bilateral: Pelvis) CYSTOSCOPY (Bladder) Diagnosis: Carcinomatosis peritonei (HCC) (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]) Surgeons: Juan Whalen MD Responsible Provider: Kierra Platt MD Anesthesia Type: general ASA Status: 3 Anesthesia Type: general Airway Type: ETT Last Vitals Vitals Value Taken Time BP 121/71 05/09/25 15:59 Temp 36.3 ?C (97.3 ?F) 05/09/25 15:12 Pulse 81 05/09/25 15:41 Resp 15 05/09/25 15:41 SpO2 97 % 05/09/25 15:41 Vitals shown include unfiled device data. Post Anesthesia Patient Status Patient Evaluation: PACU. PACU/ICU Patient Condition: stable. Neurological Status: aware and responsive. Pulmonary Status: breathing comfortably on room air Airway Control: returned to baseline unsupported. Cardiovascular Status: stable. Pain Management: clinically adequate Postoperative Hydration: acceptable. Intraoperative Events: no significant anesthesia events Post Operative Nausea/Vomiting Status: no significant post operative nausea or vomiting Recommendation: continue current plan of care. Anesthesia Observations No Documentation SIGNATURE: KIERRA WELLS MD PATIENT NAME: Mirian Corrales DATE: May 09, 2025 TIME: 4:08 PM CSN: [id number] BRIEF OP NOT Observed: 05/09/2025 1:43 PM Status: COMPLETED Source: [facility] HNO ID: [id number] Author: AMOR LEACH PA-C Service: Gynecology Oncology Author Type: Physician Automatic Lump Making Machine Tender Type: Brief Op Note Filed: 05/09/2025 13:47 Note Text: BRIEF OPERATIVE NOTE LOG ID: [id number] Surgery Date: 05/09/2025 Incision/Procedure Start Time: 1:00 PM Incision Close/Procedure End Time: 1:41 PM Surgeon(s) and Automatic Lump Making Machine Tender(s): Surgeons and Role: * Juan Whalen MD - Primary Physician Automatic Lump Making Machine Tender: Amor Leach PA-C Procedure(s): Procedure(s) (LRB): LAPAROSCOPY WITH OOPHORECTOMY AND SALPINGECTOMY (Bilateral) Anesthesia: General Findings: Normal appearing uterus, bilateral fallopian tubes and bilateral ovaries. Small hard nodule found on peritoneum adjacent to Right IP ligament. Estimated Blood Loss: 5 mls Specimens: - Right Ovary and Fallopian Tube - Left Ovary and Fallopian Tube Complications: None PRE-OP/PRE-PROCEDURE DIAGNOSIS: BRCA like mutation (BRIP1 mutation positive) POST-OP/POST-PROCEDURE DIAGNOSIS: Same as Preop Patient was accompanied to the next level of care by a licensed practitioner from the surgical team pending completion of this brief op note (or operative note) SIGNATURE: Amor Leach PA-C PATIENT NAME: Mirian Corrales DATE: May 09, 2025 TIME: 1:43 PM TISS PATH BX REPORT Collected: 05/09/2025 1:[address] atus: F Source: [facility] Order Comment: Specimen Type : TISSUE SPECIMEN Ordering Facility: [facility] Address: [address] [place] [address] TYPE CODE TESTS RESULT OUT OF RANGE REFERENCE UNITS PATHOLOGY [id number] CASE REPORT Result Comment: Surgical Pat hology Report Case: [id number] Authorizing Provider: Juan Whalen MD Collected: 05/09/2025 01:19 PM Ordering Location: Admitting Received: 05/09/2025 02:26 PM Pathologist: Conner Blair MD Specimens: A) - Fallopian Tube And Ovary Left B) - Fallopian Tube And Ovary Right C) - Soft Tissue (Not otherwise specified), nodule adjacent to right ovary PATHOLOGY [id number] FINAL DIAGNOSIS Result Comment: A. Fallopian tube and ovary, left, salpingo-oophorectomy - Benign ovaries and fallopian tube B. Fallopian tube and ovary, right, salpingo-oophorectomy - Rare residual tumor cells in ovary with therapy effect - Benign fallopian tube C. Soft tissue, paraovarian, right, excision - Hyalinized and calcified nodule, negative for carcinoma at 1137 EDT PATHOLOGY [id number] GROSS DESCRIPTION Result Comment: A. Fallopian Tube And Ovary Left Received fresh labeled fallopian tube and ovary, left is a jimenez, smooth ovary measuring 2.0 x 1.6 x 1.2 cm and weighing 3.0 g. No papillations are present on the external surface. Sectioning reveals jimenez-white glistening stroma with multiple corpora albicantia. A fallopian tube is attached to the ovary, measuring 4.0 cm in length by 0.4 cm diameter. The fimbriae are present with a normal villous appearance. The serosa is pink-jimenez, smooth and glistening. Sectioning reveals an intact, unremarkable lumen. Principal Hardware Architect sections are submitted as follows: A1: Left ovary A2: Left fallopian tube Additional sections are submitted as follows: A3. Remaining part of left fallopian tube fimbria, entirely submitted A4-A5. The remaining of left fallopian tube cross-sections, entirely submitted. Gross examination performed at [facility], [address] [place] [address] AM 05/15/25 7:07 PM B. Fallopian Tube And Ovary Right Received fresh labeled fallopian tube and ovary, right is a jimenez, smooth ovary measuring 2.0 x 1.7 x 1.4 cm and weighing 3.7 g. No papillations are present on the external surface. Sectioning reveals a 0.9 cm in diameter unilocular cystic cavity containing viscous blood. The inner lining is smooth without papillations. The remaining ovarian stroma shows scattered corpora albicantia with no additional lesions. A fallopian tube is attached to the ovary, measuring 5.7 cm in length by 0.4 cm in diameter. The fimbria are present, with a normal villous appearance. The serosa is pink-jimenez, smooth and glistening. Sectioning reveals an intact, unremarkable lumen. Principal Hardware Architect sections are submitted as follows: B1: Right ovary with cystic cavity B2: Right fallopian tube Additional sections are submitted as follows: B3-B4. Remaining of right fallopian tube cross-sections, entirely submitted. Gross examination performed at [facility], [address] [place] [address] AM 05/15/25 6:59 PM C. Soft Tissue (Not otherwise specified) Received fresh labeled nodule adjacent to right ovary is a jimenez-pink firm and well-circumscribed nodule with a smooth external surface. Sectioning reveals an extensively calcified cut surface. The nodule is entirely submitted in one cassette, following decalcification in formic acid. 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] PATHOLOGY [facility] FINAL PERFORMING LAB Result Comment: Diagnostic i nterpretation performed at: [facility], [address] [place] [address], [facility] [place] [id number] CLIA# [id number] Truck Rental Manager: Rishi Lackey MD PATHOLOGY [id number] AP DISCLAIMER Result Comment: Laboratory D eveloped Test (LDT) Disclaimer: Performance characteristics of immunohistochemical, immunofluorescent, and chromogenic in-situ hybridization tests have been determined by the performing laboratory within [facility] and Laboratory Medicine Department ([facility], [facility], [facility], [facility], [facility], [facility], or [facility]) in a manner consistent with CLIA requirements. One or more of these tests may not have been cleared or approved by the FDA. [facility] is regulated under CLIA as qualified to perform high-complexity testing. These tests are used for clinical purposes. These should not be regarded as investigational or for research. Positive and negative controls stain appropriately. Performed By: #### [id number] # ### [facility] CLIA [id number] [address] [place] [address] ANES PROCEDURE NOTE Observed: 05/09/2025 12:54 PM Status: COMPLETED Source: [facility] HNO ID: [id number] Author: KT GONSALES AA Service: ? Author Type: Search Planner Type: Anesthesia Procedure Notes Filed: 05/09/2025 12:55 Note Text: ANESTHESIOLOGY PROCEDURE NOTE Airway General Information Procedure Start Time/Medication Administration: 05/09/2025 12:39 PM Procedure End Time: 05/09/2025 12:39 PM Patient location during procedure: OR Staffing Anesthesiologist: Kierra Platt MD CAA: Kt Gonsales AA Performed by: ML Indications and Patient Condition Indications for airway management: anesthesia Preoxygenated: yes anesthesia circuit Patient position: sniffing Method: asleep Difficult Mask: No Final Airway Details Final airway type: endotracheal airwayFinal Endotracheal Airway: ETT Cuffed: yes Successful intubation technique: video laryngoscopy Devices used: intubating stylet and Schmitt Endotracheal tube insertion site: oral Blade size: #4 ETT size (mm): 7.0 Measured from: lips Measurement (cm): 22 Placement verified by: capnometry Cormack-Lehane Classification: grade I - full view of glottis Number of attempts at approach: 1 Failed airway: no Unrecognized esophageal intubation: no Airway not difficult SIGNATURE: ROM Llanes PATIENT NAME: Mirian Corrales DATE: May 09, 2025 TIME: 12:54 PM CSN: [id number] ANES PROCEDURE NOTE Observed: 05/09/2025 12:50 PM Status: COMPLETED Source: [facility] HNO ID: [id number] Author: TK GONSALES AA Service: ? Author Type: Search Planner Type: Anesthesia Procedure Notes Filed: 05/09/2025 12:51 Note Text: ANESTHESIOLOGY PROCEDURE NOTE PIV General Information Procedure Start Time/Medication Administration: 05/09/2025 12:45 PM Procedure End Time: 05/09/2025 12:45 PM Patient Location: OR Staffing Anesthesiologist: Kierra Platt MD CAA: Kt Gonsales AA Performed by: anesthesiologist Preparation Sterility Preparation: surgical cap used, mask used, skin prep agent completely dried prior to procedure Site Prep: Chloraprep Procedure Details Indication: need for IV access Needle Size/Type: 18 gauge angiocath Orientation: Left Location: Forearm Imaging Guidance Used: No SIGNATURE: ROM Llanes PATIENT NAME: Mirian Corrales DATE: May 09, 2025 TIME: 12:50 PM CSN: [id number] ANES PRE-OP Observed: 05/09/2025 9:19 AM Status: COMPLETED Source: [facility] HNO ID: [id number] Author: KIERRA PLATT MD Service: ? Author Type: Anesthesiologist Type: Anesthesia Preprocedure Evaluation Filed: 05/09/2025 10:13 Note Text: ANESTHESIOLOGY DAY OF SURGERY NOTE : 1955 Procedure Information Date/Time: 05/09/25 1115 Procedure: LAPAROSCOPY WITH OOPHORECTOMY AND SALPINGECTOMY (Bilateral: Pelvis) [facility] Sur[facility]: Juan Whalen MD Estimated body mass index is 17.11 kg/m? as calculated from the following: Height as of 05/01/25: 167.6 cm (5' 6 ). Weight as of 05/01/25: 48.1 kg (106 lb). Most recent hematocrit and potassium results: Hematocrit 26.5 04/27/2025 Potassium 4.4 04/27/2025 CBC with diff: WBC 3.79 04/27/2025 RBC 2.80 04/27/2025 Hemoglobin 8.7 04/27/2025 Hematocrit 26.5 04/27/2025 MCV 94.6 04/27/2025 MCH 31.1 04/27/2025 MCHC 32.8 04/27/2025 RDW-CV 20.4 04/27/2025 Platelet Count 163 04/27/2025 MPV 10.9 04/27/2025 Neutrophils % 70.9 11/20/2024 Lymphocytes % 12.8 11/20/2024 Monocytes % 7.0 11/20/2024 Eosinophils % 7.6 11/20/2024 Basophils % 1.4 11/20/2024 Abs Neut (Segs + Bands) 4.58 11/20/2024 Abs Harford 0.45 11/20/2024 Abs Eosin 0.49 11/20/2024 Abs Baso 0.09 11/20/2024 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 Lymphadenopathy 05/06/2024 Mastodynia 03/29/2022 Non-celiac gluten sensitivity 06/25/2023 Osteoarthritis of right hip 10/01/2024 Other specified noninflammatory disorders of uterus 08/08/2024 Peripheral eosinophilia 05/09/2024 Post menopausal syndrome 06/25/2023 Urticaria 01/29/2025 Uvular edema 01/29/2025 Varicose veins of bilateral lower extremities with pain 12/08/2022 PAST SURGICAL HISTORY Procedure Laterality Date PAST SURGICAL HISTORY OF colonoscopy x 2 No results found for: LVEF Relevant Problems ANESTHESIA (+) PONV (postoperative nausea and vomiting) CARDIO (+) Varicose veins of bilateral lower extremities with pain Other (+) Axillary lymphadenopathy (+) Osteoarthritis of right hip I - PHYSICAL EVALUATION AIRWAY Patient intubated: No. Tracheostomy tube not present Mallampati: II. TM distance: >3 FB. Neck ROM: full ROM without neurological symptoms. Mouth opening: adequate. Short neck: no. Thick neck: no DENTAL Dental findings: teeth intact. Additional exam findings: yes. CARDIOVASCULAR Rhythm: regular Rate: normal PULMONARY Breath sounds clear to auscultation. II - ANESTHESIA PLAN ASA Score: 3 Anesthetic Plan: general Airway type: ETT NPO Status: adequate Beta Virgilio Monitoring Plan Monitoring plan: Standard ASA. Post Procedure Analgesic Plan Postoperative analgesic plan: parenteral or oral opioids and multimodal analgesia. Informed Consent Anesthetic risks, benefits, alternatives, personnel and consent discussed: yes. Patient / Responsible Constitution Party agrees to proceed: yes Patient / Surrogate agrees to blood products: yes DNR status not reviewed with patient and/or family prior to surgery. Significant changes in the patient condition since the History and Physical, not otherwise documented in primary service progress note: no. Potential Anesthesia issues that may suggest increased risk of complications or contraindication to planned procedure: none. No vitals data found for the desired time range. Facility-Administered Medications as of 05/09/2025 Medication Dose Route Frequency lidocaine (PF) 10 mg/mL (1 %) 1-2 mg injection (XYLOCAINE) 0.1-0.2 mL INTRADERMAL PRN Or lidocaine 1% 0.25 mL subcutaneous j-tip syringe (XYLOCAINE) 0.25 mL SUBCUTANEOUS PRN lactated ringers iv infusion 5-30 mL/hr INTRAVENOUS CONTINUOUS NaCl 0.9% iv flush bag 20 mL INTRAVENOUS PRN Outpatient Medications as of 05/09/2025 Medication Sig neomycin 500 mg tablet Take 1 tablet by mouth as directed. (Patient not taking: Reported on 05/01/2025) calcium carbonate/vitamin D3 (CALCIUM CHEW ORAL) Take by mouth. white petrolatum (AQUAPHOR) 41 % topical ointment Apply to affected area as needed. Lactobacillus acidophilus (PROBIOTIC ORAL) Take 1 capsule by mouth once daily. Cholecalciferol, Vitamin D3, 25 mcg (1,000 unit) cap Take 1,000 Units by mouth once daily. I have interviewed and examined the patient. I have reviewed the medical record and/or the pre-anesthesia evaluation, pertinent labs, and test results. This contains updated information obtained within 48 hours of Surgery/Procedure. SIGNATURE: KIERRA WELLS MD PATIENT NAME: Mirian Corrales DATE: May 09, 2025 TIME: 9:19 AM CSN: [id number] OPERATIVE NO Observed: 05/09/2025 12:00 AM Status: COMPLETED Source: [facility] HNO ID: [id number] Author: JUAN WHALEN MD Service: Gynecology Oncology Author Type: Physician Type: Operative Report Filed: 05/16/2025 16:25 Note Text: [facility] - Operative Report [id number] [address] [place] MIRIAN CORRALES : 1955 AGE: 69. SEX: F PATIENT TYPE: A HOSP SVC: OBG LOCATION: [place] [address] ATTENDING PHYSICIAN: Juan Whalen M.D. CSN NUMBER: [id number] DATE OF SURGERY/PROCEDURE: 05/09/2025 I primary surgeon performed the procedure with assistance. PA assisted with visualization and as needed for the entire procedure. No qualified resident/fellow was available. I was present and scrubbed during the entire procedure. INCISION/PROCEDURE START TIME: 1:00 PM INCISION CLOSE/PROCEDURE END TIME: 1:41 PM PREOPERATIVE DIAGNOSIS: Stage IV Mullerian carcinomatosis BRCA1 mutation, status post neoadjuvant chemotherapy with complete clinical response. POSTOPERATIVE DIAGNOSIS: Stage IV Mullerian carcinomatosis BRCA1 mutation, status post neoadjuvant chemotherapy with complete clinical response. SURGEON: Juan Whalen M.D. MACHINE HELPER: KIESAH Pacheco. SURGERY/PROCEDURE: Laparoscopic BSO, resection of right peritoneal nodule. ANESTHESIA: General. INDICATIONS: The patient is a 69 year old female BRIP 1 mutation and stage IVB ovarian cancer. 01/29/2025 PET: 1. FDG avid lymph nodes involving the neck, chest, abdomen and pelvis as described above consistent with metastatic disease. 2. FDG avid lesion involving the liver suggestive of metastatic disease. 3. Abnormal activity involving the L4 vertebral body suggestive of metastatic disease. 4. Ill-defined activity involving the right breast without definitive lesion. Finding is nonspecific. If further evaluation is needed, diagnostic mammography/ultrasound could BE performed. Completed 4 cycles of Carbo/taxol. 04/18/2025 PET- OSH IMPRESSION: Significant interval treatment response involving previously significantly FDG avid cervical, axillary, mediastinal, epicardial, or right hilar, and retroperitoneal lymphadenopathy. A plan for a laparoscopic BSO was made. DESCRIPTION OF PROCEDURE: After induction of general anesthesia, the patient was placed in the dorsal lithotomy position and prepped and draped in the usual manner. A Casey catheter was inserted. A laparoscopic BSO was then planned. An infraumbilical incision was made and a Verres needle was inserted. The abdomen was insufflated with carbon dioxide. A 5 mm trocar was inserted under direct vision. Under laparoscopic visualization. A 5 mm trocar was placed in the right mid abdomen and a 5 mm trocar in the left mid abdomen. A12 mm trocar was placed in the infraumbilical incision. The right ovary was enlarged. With the use of LigaSure first, the right ovary was removed. The right ureter was identified. The right infundibulopelvic ligament was cauterized and transected. The right utero-ovarian ligament was cauterized and transected allowing the right ovary to be removed. There was also a peritoneal nodule adjacent to the right ovary, which was resected. An identical procedure was performed on the left ovary. Both ovaries and tubes were removed individually in a Dexter tissue retrieval bag. All specimens were submitted for permanent pathology. The 12 mm port was then closed with the Zander-Newton fascial closure device. The 5 mm trocars were removed after the abdominal pneumoperitoneum was released. The trocar sites were then closed with 4-0 Vicryl suture, and Steri-Strips were applied. The sponge, needle and instrument counts were reported to be correct times two. The patient was taken to the Recovery Room in satisfactory condition and the estimated blood loss for the procedure was estimated to be 5 cc. I was present for the entire procedure. COMPLICATIONS: None. DRAINS: None. SPECIMENS: Bilateral tubes and ovaries, right peritoneal nodule. ESTIMATED BLOOD LOSS: 5 mL. Juan Whalen M.D. WY:[id number] /[id number] PROGRESS Observed: 05/07/2025 8:40 AM Status: COMPLETED Source: [facility] ID: [id number] Author: EMILY CHOI RN Service: ? Author Type: Registered Nurse Type: Progress Notes Filed: 05/07/2025 11:14 Note Text: Attempted to reach patient for nurse teaching, LM on and will attempt again. Emily Choi RN May 07, 2025 8:40 AM 2nd attempt to reach patient, LM on VM and will attempt again. Emily Choi RN May 07, 2025 8:55 AM CNNURSE Observed: 05/07/2025 8:30 AM Status: COMPLETED Source: [facility] Nurse Visit (JOVON) MIRIAN CORRALES ([id number]) 1955 F Date Time Provider Department 05/07/25 8:30 AM PRESIDENT + PUBLISHER ONC NURSE DENISSE SIGALA During your visit today, we recorded the following information about you: Emily Choi RN 05/07/2025 11:14 AM Signed DATE OF SERVICE: 05/07/2025 PROBLEM: Mirian Corrales presents for pre-op teaching. PRE-OP DIAGNOSIS: Carcinomatosis peritonei SCHEDULED SURGERY AND DATE: Laparoscopic BSO, 05/09/2025 PRIMARY SURGEON: Juan Whalen MD NURSING PREOP ASSESSMENT: Fevers, chills, cough, or nasal congestion: No Vaginal itching, burning, discharge, or odor: No Pain with urination, frequency, urgency, cloudy or foul smelling urine: No If yes to any of the above then MD notified: Not Applicable ADVANCED CARE PLANNING: Does the patient have an advanced directive: No Does [facility] have a copy of the patient's advanced directive: No Was advanced directive given to the patient: Yes PATIENT LEARNING ASSESSMENT: Individual patient/family learning needs evaluated and addressed: Yes Cognitive ability: Alert and oriented Motivation to learn: Eager Interested Factors affecting learning: None Physical limitations affecting learning: None Patient learns best by: Verbal Instruction Method of instruction: Verbal instruction Instructions provided to: Patient via telephone. Written material provided prior to education appointment. Family support: Unable to assess - Family not present PRE- AND POST-OPERATIVE TEACHING Pre-operative teaching and supplemental material provided and reviewed with patient: Your Surgical Guide Book Map Written pre-op and post-op instructions Bowel prep directions Antibacterial soap: given to patient prior to preop teaching appointment Pre-operative instructions provided and reviewed with patient/family: No eating, drinking, or smoking after midnight prior to surgery unless otherwise directed No alcohol the day before surgery Medications as prescribed by anesthesia, internal medicine, surgeon, or TRUCK TERMINAL MANAGER Stop NSAIDs, Aspirin (ASA), vitamins, herbal supplements, herbal teas, and diet pills 7-10 days prior to surgery OK to take tylenol prn pain unless otherwise directed by physician Call surgery coordinators if any other questions about surgery date or pre-op appointments Bowel prep instructions: Magnesium citrate (10 oz) and Dulcolax (10mg) per protocol Day of surgery instructions provided and reviewed with patient/family: Arrival time (call surgical coordinators on the office day prior to surgery for verification) No jewelry, body piercing, makeup, contacts, lotions, nail prydeinig on fingers, or anything in hair on arrival to surgery Wear low healed shoes and loose fitting clothing Leave all valuables at home or with a family member Directions to [facility] and [facility] Parking/parking validation on the day prior to surgery Admission/check in (Report to DESK J1-9 for surgery) Holding area Placement of IV Surgical positioning Family waiting area Surgical recovery room Post-operative instructions provided and reviewed with patient/family: SEE PATIENT INSTRUCTION SECTION FOR DETAILS. ACTIVITY - No heavy lifting (>5-10 lbs), no pushing/pulling, OK to climb stairs DRIVING - No driving for 3 weeks unless prior approval from MD, OK to ride in a car. DIET - Advance diet as tolerated and as ordered by MD, drink 8 glasses of water a day, eat a diet high in protein and fiber unless otherwise directed by MD. CATHETER - Will be inserted during surgery, you may go home with a catheter for 7-10 days and will have to come back to the office for a voiding trial, UTI symptoms reviewed and patient instructed to notify MD of any of these symptoms. INCISION CARE - Keep incision clean and dry, cecille to be removed 7-10 days after surgery, steristrips do not need to be removed by MD BATHING - OK to shower after surgery unless otherwise directed by MD, no tub baths. PAIN MEDICATION - IV pain medication after surgery, IV ROADMASTER if ordered by MD, discharged home with a prescription for PO pain medication, pain management after surgery, side effects of pain medication (including constipation, dizziness, drowsiness, and medication interactions). VAGINAL CARE - Pelvic rest x6 weeks unless otherwise directed by MD. DVT PROPHYLAXIS - Early ambulation, SCDs, injectable anticoagulants (heparin, lovenox, etc) RESPIRATORY - Incentive spirometer, coughing/deep breathing exercises, ambulation. RETURN TO WORK - As directed by physician, please send any FMLA papers to physician's corporation secretary. SYMPTOMS TO NOTIFY MD - Fever, chills, nausea, vomiting, increased or severe pain, heavy vaginal bleeding, foul smelling vaginal drainage, pain or swelling in extremities. URGENT SYMPTOMS - Call 911 or go to ER if any shortness of breath, difficulty breathing, or chest pain. HOW TO CONTACT PHYSICIAN - Physician's office phone number given to patient, if after hours patient instructed to call batch mixer operator and ask for rail operations controller urogynaecologist onc resident. SERAFIN program offered to patient: No, Additional teaching as indicated by patient/family learning needs. PATIENT LEARNING EVALUATION AND FOLLOW UP PLAN: Patient and/or family express understanding of upcoming surgery, pre-operative preparation, the operative process, and post-operative instructions. Follow up plan: Complete - No need for follow-up Patient has a post-op appointment scheduled: Yes Referral (recommentation): None Educator: Emily Choi RN [facility] [place] Emily Choi RN 05/07/2025 10:56 AM Addendum PRESIDENT + PUBLISHER ONCOLOGY PHYSICIAN CONTACT INFORMATION Surgery Scheduling Office Surgeons: Dr. Karen Johnston Dr. Claudia Segovia Dr. Conner Addison Dr. Mega Hutton Dr. Anna Diaz Dr. Ebonie Gilliland Dr. Christopher Holland Dr. Juan Whalen Dr. Stephen Mas Dr. Javy Robb [employer] [facility] Nurse Practitioners: Aliyah Ritchie, STORM SASH MAKER.TIERNEY Hanks, STORM SASH MAKER.TIERNEY Cleveland, STORM SASH MAKER.TIERNEY Rucker APRN.TIERNEY Rader APRN.CNP After 4:30 pm or on holidays or weekends, call: or . Ask the batch mixer operator to page the urogynaecologist oncologist rail operations controller. PRE-OPERATIVE CHECKLIST: PATIENT INSTRUCTIONS PRIOR TO SURGERY Our guidelines have changed, so please read these instructions carefully. Your surgery may be cancelled if you do not follow these instructions. ARRIVAL TIME WILL BE PROVIDED BY SURGERY SCHEDULERS ONE BUSINESS DAY PRIOR TO SURGERY BY 2PM. PLEASE CALL IF THEY HAVE NOT CALLED BY THEN. I have been instructed not to have any solid food to eat after midnight prior to my surgery (this includes no gum, mints, smoking). I am allowed to drink small amounts (up to 12 oz) of clear liquids up until 2 hours prior to my arrival time. Clear liquids include water, fruit juices without pulp, carbonated beverages (i.e. ladan leanna), electrolyte beverages (i.e. Gatorade), clear tea and black coffee, clear broth, popsicles and jello. (No milk). No alcohol the day before or day of surgery. I will bring this binder to all pre and post-operative appointments AND day of surgery. MEDICATION STOPPAGE: Unless my surgeon tells me differently, I will STOP THESE MEDICATIONS 7 DAYS PRIOR TO SURGERY: (Motrin/ibuprofen/Naproxen/Aleve/Advil), Aspirin, vitamin E, herbal medications, diet pills, and wfiu-vme-[id number] medications. Tylenol (acetaminophen) is okay. I will not wear jewelry, body piercing(s), makeup, nail prydeinig, hairpins, or contacts on the day of surgery. I am to leave valuables and money at home or with family members. If I am prescribed inhalers for breathing, I will use them and bring them to the hospital. Medication(s) to be taken on the morning of surgery with a few sips of water: If I am taking any of the following blood thinning medications - Aspirin, clopidogrel (Plavix), ticagrelor (Brilinta), prasugrel (Efficient), ticlodipine (Ticlid), warfarin (Coumadin), dibigatran (Pradaxa) or rivaroxaban (Xarelto) - I will discuss whether or not I should stop them before surgery with my surgeon. Discuss medication changes with your machinery erector or primary care physician as well. If I stopped taking my blood-thinning medication, I will ask the surgeon when to resume taking it. If I am an outpatient, a responsible person will drive me home and it was suggested that someone stay with me for 24 hours. I understand that a territory business manager or cabdriver is NOT a responsible caregiver. Patients with diabetes, I will not take my morning diabetes medication (pills) on the morning of surgery. If I am on insulin, someone has gone over those instructions with me for the morning of surgery. I understand if my surgery is delayed, I will notify the check in desk that I have diabetes. See the ?Diabetic Guidelines Before Surgery? in the patient education section. If I have Obstructive Sleep Apnea and use a CPAP/BiPAP machine, I will bring my mask, tubing, and machine with me on the day of surgery. PREOP INSTRUCTIONS THE DAY OF SURGERY/CHECK IN Report to DESK [facility] for surgery. A map is located in Your Surgical Guide Book. The online version of the surgical guide book can be found at: [email or web address] The address is [address] [place] [address]/[place] [address] ANTIBIOTIC PLUS MECHANICAL BOWEL PREP Your physician has ordered a bowel preparation prior to surgery. It is important to follow these instructions to ensure adequate preparation for surgery and avoid possible delays or cancellation of your surgery. PURCHASE OVER THE COUNTER (no prescription needed): One 238 gram bottle of Miralax Dulcolax (two 5mg oral tablets), a.k.a. bisacodyl 64 oz of Gatorade (or other clear liquid) DIRECTIONS: One (1) Day Before Your Procedure Only drink clear liquids the ENTIRE DAY before your procedure. Do NOT eat any solid foods. Drink at least 8 ounces of clear liquids every hour after waking up. The clear liquids you can drink include: CLEAR LIQUID DIET: Gatorade, Pedialyte, Powerade, or other electrolyte beverage Clear broth or bouillon Coffee or tea (no milk or non-dairy creamer) Carbonated and non-carbonated soft drinks Eduardo-Aid or other fruit flavored drinks Strained fruit juices (no pulp) Jell-O, popsicles Water DO NOT DRINK: Alcohol Milk or non-dairy creamers Noodles or vegetables in soup Juice with pulp Liquid you cannot see through BOWEL PREP INSTRUCTIONS: Day Prior to Procedure: 3:00 PM - Take 2 Dulcolax tablets. 5:00 PM - Mix the whole bottle of Miralax and the Gatorade into a pitcher and stir until dissolved. Drink an 8 ounce glass every 10-15 minutes until the solution is gone. If you experience nausea, slow down the pace of drinking or take a short break, then resume drinking. It is important to continue drinking clear liquids until bedtime. 7:00 PM - Take first dose of metronidazole* 2000mg (four 500mg pills) and neomycin* 2000mg (four 500mg pills) 11:00 PM - Take second dose of metronidazole* 2000mg (four 500mg pills) and neomycin* 2000mg (four 500mg pills) *Metronidazole and neomycin are prescriptions that will be called in to your preferred pharmacy. INFECTION PREVENTION Please notify your doctor if you have any signs of an infection (i.e. fever, severe cough, nasal congestion, pain with urination, abnormal vaginal discharge, diarrhea, etc). Your surgeon will let you know if a bowel prep is needed before your surgery. If so, please see the attached instructions. Shower the night before surgery AND the morning of surgery with Hibiclens (provided by your surgeon). If you are allergic to Hibiclens or unable to obtain the Hibiclens, please wash with antibacterial soap. Wash your body from the neck down, focusing on your abdomen, belly button and external genitalia. Do not forget to scrub any skin folds and creases. No lotions, oils, creams, or powders after your shower. Underarm deodorant is okay. No shaving (abdominal or pubic hair) or douching the day before surgery. You may be asked to apply an antiseptic solution called Chlorhexidine Gluconate (CHG) which will be provided to you on arrival to the preop area. Hand washing is extremely important in preventing infection (for both you as the patient and for the caregivers). HOSPITALIZATION Before you leave the hospital, you typically need to be able to eat/drink, urinate, and have your pain controlled with oral medication. Your surgeon or other members of your surgeon?s team will discuss any other specific medical issues related to your discharge with you. Your surgeon may order intermittent compression sleeves. These are ?massaging leg pumps? to help prevent blood clots after surgery. See Your Surgical Guide Book for more information. It is also very important that you walk as soon as possible and as frequently as possible after surgery. This will help decrease your risk of blood clots, exercise your lungs and speed up your recovery after surgery. If you are admitted to the hospital overnight, you will be given an incentive spirometer, which is a breathing machine that will help make sure that you are taking deep breaths and expanding your lungs while in the hospital. See Your Surgical Guide Book for more information. [facility] TEAM At the [facility], we have a multidisciplinary team of caregivers that includes fellows, residents, nurse practitioners, physician assistants, clinical nurse specialists, nurses, medical assistants, patient care nursing assistants, social workers, human services case manager and many others. We all have different roles and responsibilities but we are all here to help. POSTOP: LAPAROSCOPIC SURGERY WHAT TO EXPECT AT HOME Recovery from surgery is generally 2-6 weeks, but sometimes longer for more strenuous activity. It is normal to be very tired during this time. It is normal to have some drainage or a small amount of vaginal bleeding after surgery which may last up to 6 weeks. You will most likely experience gas pain, abdominal swelling, or shoulder pain for 24-72 hours after surgery. This is from the carbon dioxide gas put into your abdomen to better visualize your organs. A warm shower, heating pad, and/or walking may help. You will have 1-5 small incisions on your abdomen. There will be dissolvable stitches under your skin that do not need to be removed. You will also have surgical glue or steri-strips (paper tape) on the incisions. These may be removed when they start to fall off on their own, or in 7-10 days. ACTIVITY No heavy lifting/pushing/pulling for 4-6 weeks. Do not lift anything more than 10-15 lbs (such as laundry, groceries, children, pets), vacuum, push heavy doors or grocery carts, etc. You may climb stairs as tolerated. Do not put anything in the vagina for 6 weeks after surgery unless otherwise instructed by your doctor (including tampons, douching, sexual intercourse, etc). No driving for about 2-3 weeks after surgery, while you are taking narcotic pain medication, or until you feel that you are ready. Avoid sitting or lying in bed for more than 2 hours at a time while you are awake to reduce your risk of blood clots. Return to work when directed by your surgeon. Please contact your surgeon?s office if any FMLA or other paperwork is needed. WOUND CARE You will have 1-5 small incisions on your abdomen. If you have a dressing (big, white, square band-aid), please remove it 24 hour after your surgery. You may have surgical glue or steri-strips on the incisions and these may be removed once they start to fall off. Shower daily after surgery. Wash your incision with antibacterial soap (such as Dial). Pat your incision dry with a clean towel. No tub baths until wound is completely healed. Wash your hands frequently, especially before touching your incision, changing any dressings, after using the restroom, and before eating. PAIN MANAGEMENT You will be given prescriptions for a variety of pain medications (opioid and non-opioid) before you leave the hospital. Surgery will cause pain and everyone has a different pain tolerance. It is safer to find the right combination and amount of medicine to manage your pain. We recommend that you take the non-opioid medication (acetaminophen and ibuprofen) on a regular schedule after surgery. You can take these medications on an alternating schedule so that you are taking one or the other every 3-4 hours. The maximum total daily dose of acetaminophen is 4,000mg and the maximum total daily dose of ibuprofen is 2,400mg. Take the opioid prescription ONLY when your pain is severe and never take more pills or more frequent doses than prescribed. Opioids (narcotics) can cause serious side effects. The risks increase the longer they are used. Taking opioids may cause: constipation, drowsiness, itching, nausea/vomiting. More serious side effects of opioids may include: addiction or dependence, life threatening overdose, or dizziness leading to falls/injury. Keep your pain medication locked in a safe place. Never share your pain medication with others. If you have any remaining opioid pills after you recover from surgery, please bring them to a medication disposal station (located in many of the [facility] pharmacies). Do not flush them down the toilet. Constipation is a common problem after surgery. You should take a stool softener (i.e. colace) twice a day, especially if you are taking opioids. If a stool softener alone is not helping to manage your constipation, you can also take Miralax and/or milk of magnesia as needed. WHEN TO CALL THE DOCTOR Call your doctor if you have any of the following symptoms: Fever (>100.4?F or 38.0?C) or chills. Incision problems such as redness, warmth, swelling, or foul smelling drainage. Severe nausea or persistent vomiting. Bright red vaginal bleeding (soaking >1 pad/hour) or foul smelling vaginal drainage. Severe pain not relieved with pain medication. Pain and swelling in your legs, especially if it is only on one side and not the other. Pain with urination, cloudy urine, or foul smelling urine. Or if you have any other problems or questions. CALL 911 or go to the ED if you have any shortness of breath, difficulty breathing, or chest pain. Advance Directives Every adult has the right to direct their own medical care. Having an advance directive on file helps to ensure that you receive the care you want if a medical condition or injury renders you unable to make decisions or communicate. Forms can be found on the [facility] Advance Directives site. You do not need a bureau chief to complete advance directive documents. [email or web address] Talking about end-of-life issues is difficult, but it truly is a gift to your loved ones. We suggest using The [employer] ([employer].org) to help guide you through discussing and thinking about your wishes/preferences, goals and values and completing your advance directive. After you complete the documents, talk to those people who may be involved with your healthcare decision making, and give them a copy of your forms to make sure your wishes are followed. Please bring a copy of your advance directive documents to your next appointment, or email to [email or web address] as an attachment in either PDF, TIFF, or JPEG format. You can also mail to: [facility] Information Management, Ab7 Advance Directive Processing [id number] [place], [place] [address] Emily Choi RN 05/07/2025 11:14 AM Signed Attempted to reach patient for nurse teaching, LM on VM and will attempt again. Emily Choi RN May 07, 2025 8:40 AM 2nd attempt to reach patient, LM on VM and will attempt again. Emily Choi RN May 07, 2025 8:55 AM Allergies As of Date: 05/07/2025 Noted Allergy Reaction DIPHENYLGUANIDINE 11/17/2024 2 - Rash IODOPROPYNYL BUTYLCARBAMATE 11/17/2024 2 - Rash WHEAT 08/24/2019 7 - Swelling DAIRY AID (LACTASE) 08/24/2019 7 - Swelling Comments: Bloating Date Reviewed: 05/01/2025 Reviewed by: Gentry De Guzman PA-C - Fully Assessed Reason for Visit: Pre-Op Teaching [134] Primary Visit Diagnosis:Educational circumstances [Z55.9] Prescriptions as of 05/07/2025 - neomycin 500 mg tablet Take 1 tablet by mouth as directed. - Magnesium 200 mg tab Take by mouth. - Bisacodyl (DULCOLAX) 5 mg tab Take 1 tablet by mouth as directed. Take 2 tablets at 3pm the day before surgery - polyethylene glycol 3350 (MIRALAX) 17 gram/dose powder Purchase one 238 gram bottle of Miralax Use as directed - metroNIDAZOLE (FLAGYL) 500 mg tablet Take 1 tablet by mouth as directed. Take four tablets (2000mg) at 7pm and four tablets (2000mg) at 11pm the day prior to surgery - calcium carbonate/vitamin D3 (CALCIUM CHEW ORAL) Take by mouth. - white petrolatum (AQUAPHOR) 41 % topical ointment Apply to affected area as needed. - pantoprazole DR (PROTONIX) 40 mg tablet Take 1 tablet by mouth daily at 6 am. Patient should start on May 11, 2024. - Lactobacillus acidophilus (PROBIOTIC ORAL) Take 1 capsule by mouth once daily. - Cholecalciferol, Vitamin D3, 25 mcg (1,000 unit) cap Take 1,000 Units by mouth once daily. 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] 05/06/2024 Age-related osteoporosis without current pathol*05/06/2024 Lymphadenopathy [R59.1] 05/06/2024 Eosinophilia [D72.10] 05/08/2024 Eczema [L30.9] 05/08/2024 Peripheral eosinophilia [D72.19] 05/09/2024 Uvular edema [K13.79] 01/29/2025 Urticaria [L50.9] 01/29/2025 Post menopausal syndrome [N95.1] 06/25/2023 Pain in joint of right hip [M25.551] 10/01/2024 01/29/2025 Other fatigue [R53.83] 10/01/2024 01/29/2025 Osteoarthritis of right hip [M16.11] 10/01/2024 Non-celiac gluten sensitivity [K90.41] 06/25/2023 History of steroid therapy [Z92.241] 10/01/2024 01/29/2025 Abnormal radiographic examination [R93.89] 01/29/2025 01/29/2025 Varicose veins of bilateral lower extremities w*12/08/2022 Other specified noninflammatory disorders of ut*08/08/2024 Mastodynia [N64.4] 03/29/2022 Fatigue [R53.83] 09/26/2024 01/29/2025 H/O skin disorder [Z87.2] 01/29/2025 01/29/2025 Cyst of right breast [N60.01] 03/29/2022 Edema [R60.9] 01/29/2025 01/29/2025 Asymptomatic menopausal state [Z78.0] 03/24/2022 01/29/2025 Acute pharyngitis, unspecified [J02.9] 01/02/2024 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 Karen Johnston Dr. Claudia Segovia Dr. Conner Addison Dr. Mega Hutton Dr. Anna Diaz Dr. Ebonie Gilliland Dr. Christopher Holland Dr. Juan Whalen Dr. Stephen Mas Dr. Javy Robb [facility] Nurse Practitioners: Aliyah Ritchie, STORM SASH MAKER.TIERNEY Hanks, STORM SASH MAKER.TIERNEY [place], STORM SASH MAKER.TIERNEY Rucker, STORM SASH MAKER.TIERNEY Rader, STORM SASH MAKER.TIERNEY After 4:30 pm or on holidays or weekends, call: or . Ask the batch mixer operator to page the urogynaecologist oncologist rail operations controller. PRE-OPERATIVE CHECKLIST: PATIENT INSTRUCTIONS PRIOR TO SURGERY Our guidelines have changed, so please read these instructions carefully. Your surgery may be cancelled if you do not follow these instructions. ARRIVAL TIME WILL BE PROVIDED BY SURGERY SCHEDULERS ONE BUSINESS DAY PRIOR TO SURGERY BY 2PM. PLEASE CALL IF THEY HAVE NOT CALLED BY THEN. I have been instructed not to have any solid food to eat after midnight prior to my surgery (this includes no gum, mints, smoking). I am allowed to drink small amounts (up to 12 oz) of clear liquids up until 2 hours prior to my arrival time. Clear liquids include water, fruit juices without pulp, carbonated beverages (i.e. ladan leanna), electrolyte beverages (i.e. Gatorade), clear tea and black coffee, clear broth, popsicles and jello. (No milk). No alcohol the day before or day of surgery. I will bring this binder to all pre and post-operative appointments AND day of surgery. MEDICATION STOPPAGE: Unless my surgeon tells me differently, I will STOP THESE MEDICATIONS 7 DAYS PRIOR TO SURGERY: (Motrin/ibuprofen/Naproxen/Aleve/Advil), Aspirin, vitamin E, herbal medications, diet pills, and zjvy-xfq-[id number] medications. Tylenol (acetaminophen) is okay. I will not wear jewelry, body piercing(s), makeup, nail prydeinig, hairpins, or contacts on the day of surgery. I am to leave valuables and money at home or with family members. If I am prescribed inhalers for breathing, I will use them and bring them to the hospital. Medication(s) to be taken on the morning of surgery with a few sips of water: If I am taking any of the following blood thinning medications - Aspirin, clopidogrel (Plavix), ticagrelor (Brilinta), prasugrel (Efficient), ticlodipine (Ticlid), warfarin (Coumadin), dibigatran (Pradaxa) or rivaroxaban (Xarelto) - I will discuss whether or not I should stop them before surgery with my surgeon. Discuss medication changes with your machinery erector or primary care physician as well. If I stopped taking my blood-thinning medication, I will ask the surgeon when to resume taking it. If I am an outpatient, a responsible person will drive me home and it was suggested that someone stay with me for 24 hours. I understand that a territory business manager or cabdriver is NOT a responsible caregiver. Patients with diabetes, I will not take my morning diabetes medication (pills) on the morning of surgery. If I am on insulin, someone has gone over those instructions with me for the morning of surgery. I understand if my surgery is delayed, I will notify the check in desk that I have diabetes. See the ?Diabetic Guidelines Before Surgery? in the patient education section. If I have Obstructive Sleep Apnea and use a CPAP/BiPAP machine, I will bring my mask, tubing, and machine with me on the day of surgery. PREOP INSTRUCTIONS THE DAY OF SURGERY/CHECK IN Report to DESK [facility] for surgery. A map is located in Your Surgical Guide Book. The online version of the surgical guide book can be found at: [email or web address] The address is [address] [place] [address] ANTIBIOTIC PLUS MECHANICAL BOWEL PREP Your physician has ordered a bowel preparation prior to surgery. It is important to follow these instructions to ensure adequate preparation for surgery and avoid possible delays or cancellation of your surgery. PURCHASE OVER THE COUNTER (no prescription needed): One 238 gram bottle of Miralax Dulcolax (two 5mg oral tablets), a.k.a. bisacodyl 64 oz of Gatorade (or other clear liquid) DIRECTIONS: One (1) Day Before Your Procedure Only drink clear liquids the ENTIRE DAY before your procedure. Do NOT eat any solid foods. Drink at least 8 ounces of clear liquids every hour after waking up. The clear liquids you can drink include: CLEAR LIQUID DIET: Gatorade, Pedialyte, Powerade, or other electrolyte beverage Clear broth or bouillon Coffee or tea (no milk or non-dairy creamer) Carbonated and non-carbonated soft drinks Eduardo-Aid or other fruit flavored drinks Strained fruit juices (no pulp) Jell-O, popsicles Water DO NOT DRINK: Alcohol Milk or non-dairy creamers Noodles or vegetables in soup Juice with pulp Liquid you cannot see through BOWEL PREP INSTRUCTIONS: Day Prior to Procedure: 3:00 PM - Take 2 Dulcolax tablets. 5:00 PM - Mix the whole bottle of Miralax and the Gatorade into a pitcher and stir until dissolved. Drink an 8 ounce glass every 10-15 minutes until the solution is gone. If you experience nausea, slow down the pace of drinking or take a short break, then resume drinking. It is important to continue drinking clear liquids until bedtime. 7:00 PM - Take first dose of metronidazole* 2000mg (four 500mg pills) and neomycin* 2000mg (four 500mg pills) 11:00 PM - Take second dose of metronidazole* 2000mg (four 500mg pills) and neomycin* 2000mg (four 500mg pills) *Metronidazole and neomycin are prescriptions that will be called in to your preferred pharmacy. INFECTION PREVENTION Please notify your doctor if you have any signs of an infection (i.e. fever, severe cough, nasal congestion, pain with urination, abnormal vaginal discharge, diarrhea, etc). Your surgeon will let you know if a bowel prep is needed before your surgery. If so, please see the attached instructions. Shower the night before surgery AND the morning of surgery with Hibiclens (provided by your surgeon). If you are allergic to Hibiclens or unable to obtain the Hibiclens, please wash with antibacterial soap. Wash your body from the neck down, focusing on your abdomen, belly button and external genitalia. Do not forget to scrub any skin folds and creases. No lotions, oils, creams, or powders after your shower. Underarm deodorant is okay. No shaving (abdominal or pubic hair) or douching the day before surgery. You may be asked to apply an antiseptic solution called Chlorhexidine Gluconate (CHG) which will be provided to you on arrival to the preop area. Hand washing is extremely important in preventing infection (for both you as the patient and for the caregivers). HOSPITALIZATION Before you leave the hospital, you typically need to be able to eat/drink, urinate, and have your pain controlled with oral medication. Your surgeon or other members of your surgeon?s team will discuss any other specific medical issues related to your discharge with you. Your surgeon may order intermittent compression sleeves. These are ?massaging leg pumps? to help prevent blood clots after surgery. See Your Surgical Guide Book for more information. It is also very important that you walk as soon as possible and as frequently as possible after surgery. This will help decrease your risk of blood clots, exercise your lungs and speed up your recovery after surgery. If you are admitted to the hospital overnight, you will be given an incentive spirometer, which is a breathing machine that will help make sure that you are taking deep breaths and expanding your lungs while in the hospital. See Your Surgical Guide Book for more information. [facility] TEAM At the [facility], we have a multidisciplinary team of caregivers that includes fellows, residents, nurse practitioners, physician assistants, clinical nurse specialists, nurses, medical assistants, patient care nursing assistants, social workers, human services case manager and many others. We all have different roles and responsibilities but we are all here to help. POSTOP: LAPAROSCOPIC SURGERY WHAT TO EXPECT AT HOME Recovery from surgery is generally 2-6 weeks, but sometimes longer for more strenuous activity. It is normal to be very tired during this time. It is normal to have some drainage or a small amount of vaginal bleeding after surgery which may last up to 6 weeks. You will most likely experience gas pain, abdominal swelling, or shoulder pain for 24-72 hours after surgery. This is from the carbon dioxide gas put into your abdomen to better visualize your organs. A warm shower, heating pad, and/or walking may help. You will have 1-5 small incisions on your abdomen. There will be dissolvable stitches under your skin that do not need to be removed. You will also have surgical glue or steri-strips (paper tape) on the incisions. These may be removed when they start to fall off on their own, or in 7-10 days. ACTIVITY No heavy lifting/pushing/pulling for 4-6 weeks. Do not lift anything more than 10-15 lbs (such as laundry, groceries, children, pets), vacuum, push heavy doors or grocery carts, etc. You may climb stairs as tolerated. Do not put anything in the vagina for 6 weeks after surgery unless otherwise instructed by your doctor (including tampons, douching, sexual intercourse, etc). No driving for about 2-3 weeks after surgery, while you are taking narcotic pain medication, or until you feel that you are ready. Avoid sitting or lying in bed for more than 2 hours at a time while you are awake to reduce your risk of blood clots. Return to work when directed by your surgeon. Please contact your surgeon?s office if any FMLA or other paperwork is needed. WOUND CARE You will have 1-5 small incisions on your abdomen. If you have a dressing (big, white, square band-aid), please remove it 24 hour after your surgery. You may have surgical glue or steri-strips on the incisions and these may be removed once they start to fall off. Shower daily after surgery. Wash your incision with antibacterial soap (such as Dial). Pat your incision dry with a clean towel. No tub baths until wound is completely healed. Wash your hands frequently, especially before touching your incision, changing any dressings, after using the restroom, and before eating. PAIN MANAGEMENT You will be given prescriptions for a variety of pain medications (opioid and non-opioid) before you leave the hospital. Surgery will cause pain and everyone has a different pain tolerance. It is safer to find the right combination and amount of medicine to manage your pain. We recommend that you take the non-opioid medication (acetaminophen and ibuprofen) on a regular schedule after surgery. You can take these medications on an alternating schedule so that you are taking one or the other every 3-4 hours. The maximum total daily dose of acetaminophen is 4,000mg and the maximum total daily dose of ibuprofen is 2,400mg. Take the opioid prescription ONLY when your pain is severe and never take more pills or more frequent doses than prescribed. Opioids (narcotics) can cause serious side effects. The risks increase the longer they are used. Taking opioids may cause: constipation, drowsiness, itching, nausea/vomiting. More serious side effects of opioids may include: addiction or dependence, life threatening overdose, or dizziness leading to falls/injury. Keep your pain medication locked in a safe place. Never share your pain medication with others. If you have any remaining opioid pills after you recover from surgery, please bring them to a medication disposal station (located in many of the [facility] pharmacies). Do not flush them down the toilet. Constipation is a common problem after surgery. You should take a stool softener (i.e. colace) twice a day, especially if you are taking opioids. If a stool softener alone is not helping to manage your constipation, you can also take Miralax and/or milk of magnesia as needed. WHEN TO CALL THE DOCTOR Call your doctor if you have any of the following symptoms: Fever (>100.4?F or 38.0?C) or chills. Incision problems such as redness, warmth, swelling, or foul smelling drainage. Severe nausea or persistent vomiting. Bright red vaginal bleeding (soaking >1 pad/hour) or foul smelling vaginal drainage. Severe pain not relieved with pain medication. Pain and swelling in your legs, especially if it is only on one side and not the other. Pain with urination, cloudy urine, or foul smelling urine. Or if you have any other problems or questions. CALL 911 or go to the ED if you have any shortness of breath, difficulty breathing, or chest pain. Advance Directives Every adult has the right to direct their own medical care. Having an advance directive on file helps to ensure that you receive the care you want if a medical condition or injury renders you unable to make decisions or communicate. Forms can be found on the [facility] Advance Directives site. You do not need a bureau chief to complete advance directive documents. [email or web address] Talking about end-of-life issues is difficult, but it truly is a gift to your loved ones. We suggest using The Conversation Project ([employer] [facility].org) to help guide you through discussing and thinking about your wishes/preferences, goals and values and completing your advance directive. After you complete the documents, talk to those people who may be involved with your healthcare decision making, and give them a copy of your forms to make sure your wishes are followed. Please bring a copy of your advance directive documents to your next appointment, or email to [email or web address] as an attachment in either PDF, TIFF, or JPEG format. You can also mail to: [facility] Information Management, [employer] Advance Directive Processing [address] [place], [place] [address] Encounter Status:Closed by EMILY CHOI on 05/07/25 PROGRESS Observed: 05/04/2025 2:55 PM Status: COMPLETED Source: [facility] HNO ID: [id number] Author: EMILY CHOI RN Service: ? Author Type: Registered Nurse Type: Progress Notes Filed: 05/07/2025 11:14 Note Text: DATE OF SERVICE: 05/07/2025 PROBLEM: Mirian Mj Corrales presents for pre-op teaching. PRE-OP DIAGNOSIS: Carcinomatosis peritonei SCHEDULED SURGERY AND DATE: Laparoscopic BSO, 05/09/2025 PRIMARY SURGEON: Juan Whalen MD NURSING PREOP ASSESSMENT: Fevers, chills, cough, or nasal congestion: No Vaginal itching, burning, discharge, or odor: No Pain with urination, frequency, urgency, cloudy or foul smelling urine: No If yes to any of the above then MD notified: Not Applicable ADVANCED CARE PLANNING: Does the patient have an advanced directive: No Does [facility] have a copy of the patient's advanced directive: No Was advanced directive given to the patient: Yes PATIENT LEARNING ASSESSMENT: Individual patient/family learning needs evaluated and addressed: Yes Cognitive ability: Alert and oriented Motivation to learn: Eager Interested Factors affecting learning: None Physical limitations affecting learning: None Patient learns best by: Verbal Instruction Method of instruction: Verbal instruction Instructions provided to: Patient via telephone. Written material provided prior to education appointment. Family support: Unable to assess - Family not present PRE- AND POST-OPERATIVE TEACHING Pre-operative teaching and supplemental material provided and reviewed with patient: Your Surgical Guide Book Map Written pre-op and post-op instructions Bowel prep directions Antibacterial soap: given to patient prior to preop teaching appointment Pre-operative instructions provided and reviewed with patient/family: No eating, drinking, or smoking after midnight prior to surgery unless otherwise directed No alcohol the day before surgery Medications as prescribed by anesthesia, internal medicine, surgeon, or TRUCK TERMINAL MANAGER Stop NSAIDs, Aspirin (ASA), vitamins, herbal supplements, herbal teas, and diet pills 7-10 days prior to surgery OK to take tylenol prn pain unless otherwise directed by physician Call surgery coordinators if any other questions about surgery date or pre-op appointments Bowel prep instructions: Magnesium citrate (10 oz) and Dulcolax (10mg) per protocol Day of surgery instructions provided and reviewed with patient/family: Arrival time (call surgical coordinators on the office day prior to surgery for verification) No jewelry, body piercing, makeup, contacts, lotions, nail prydeinig on fingers, or anything in hair on arrival to surgery Wear low healed shoes and loose fitting clothing Leave all valuables at home or with a family member Directions to [facility] and [facility] Parking/parking validation on the day prior to surgery Admission/check in (Report to DESK J1-9 for surgery) Holding area Placement of IV Surgical positioning Family waiting area Surgical recovery room Post-operative instructions provided and reviewed with patient/family: SEE PATIENT INSTRUCTION SECTION FOR DETAILS. ACTIVITY - No heavy lifting (>5-10 lbs), no pushing/pulling, OK to climb stairs DRIVING - No driving for 3 weeks unless prior approval from MD, OK to ride in a car. DIET - Advance diet as tolerated and as ordered by MD, drink 8 glasses of water a day, eat a diet high in protein and fiber unless otherwise directed by MD. CATHETER - Will be inserted during surgery, you may go home with a catheter for 7-10 days and will have to come back to the office for a voiding trial, UTI symptoms reviewed and patient instructed to notify MD of any of these symptoms. INCISION CARE - Keep incision clean and dry, cecille to be removed 7-10 days after surgery, steristrips do not need to be removed by MD BATHING - OK to shower after surgery unless otherwise directed by MD, no tub baths. PAIN MEDICATION - IV pain medication after surgery, IV ROADMASTER if ordered by MD, discharged home with a prescription for PO pain medication, pain management after surgery, side effects of pain medication (including constipation, dizziness, drowsiness, and medication interactions). VAGINAL CARE - Pelvic rest x6 weeks unless otherwise directed by MD. DVT PROPHYLAXIS - Early ambulation, SCDs, injectable anticoagulants (heparin, lovenox, etc) RESPIRATORY - Incentive spirometer, coughing/deep breathing exercises, ambulation. RETURN TO WORK - As directed by physician, please send any FMLA papers to physician's corporation secretary. SYMPTOMS TO NOTIFY MD - Fever, chills, nausea, vomiting, increased or severe pain, heavy vaginal bleeding, foul smelling vaginal drainage, pain or swelling in extremities. URGENT SYMPTOMS - Call 911 or go to ER if any shortness of breath, difficulty breathing, or chest pain. HOW TO CONTACT PHYSICIAN - Physician's office phone number given to patient, if after hours patient instructed to call batch mixer operator and ask for rail operations controller urogynaecologist onc resident. SERAFIN program offered to patient: No, Additional teaching as indicated by patient/family learning needs. PATIENT LEARNING EVALUATION AND FOLLOW UP PLAN: Patient and/or family express understanding of upcoming surgery, pre-operative preparation, the operative process, and post-operative instructions. Follow up plan: Complete - No need for follow-up Patient has a post-op appointment scheduled: Yes Referral (recommentation): None Educator: Emily Choi, JOSÉ ANTONIO [facility] [place] MAKAYLA Observed: 05/04/2025 12:00 AM Status: COMPLETED Source: [facility] Telephone (Hive[employer]) MIRIAN CORRALES ([id number]) 1955 F Date Time Provider Department 05/04/25 JUAN WHALEN During your visit today, we recorded the following information about you: Jackie Soliman 05/04/2025 2:14 PM Signed [facility] Uploaded into scanned documents Allergies As of Date: 05/04/2025 Noted Allergy Reaction DIPHENYLGUANIDINE 11/17/2024 2 - Rash IODOPROPYNYL BUTYLCARBAMATE 11/17/2024 2 - Rash WHEAT 08/24/2019 7 - Swelling DAIRY AID (LACTASE) 08/24/2019 7 - Swelling Comments: Bloating Date Reviewed: 05/01/2025 Reviewed by: Gentry De Guzman PA-C - Fully Assessed Reason for Visit: Received External Records [Other] Prescriptions as of 05/07/2025 - neomycin 500 mg tablet Take 1 tablet by mouth as directed. - Magnesium 200 mg tab Take by mouth. - Bisacodyl (DULCOLAX) 5 mg tab Take 1 tablet by mouth as directed. Take 2 tablets at 3pm the day before surgery - polyethylene glycol 3350 (MIRALAX) 17 gram/dose powder Purchase one 238 gram bottle of Miralax Use as directed - metroNIDAZOLE (FLAGYL) 500 mg tablet Take 1 tablet by mouth as directed. Take four tablets (2000mg) at 7pm and four tablets (2000mg) at 11pm the day prior to surgery - calcium carbonate/vitamin D3 (CALCIUM CHEW ORAL) Take by mouth. - white petrolatum (AQUAPHOR) 41 % topical ointment Apply to affected area as needed. - pantoprazole DR (PROTONIX) 40 mg tablet Take 1 tablet by mouth daily at 6 am. Patient should start on May 11, 2024. - Lactobacillus acidophilus (PROBIOTIC ORAL) Take 1 capsule by mouth once daily. - Cholecalciferol, Vitamin D3, 25 mcg (1,000 unit) cap Take 1,000 Units by mouth once daily. 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] 05/06/2024 Age-related osteoporosis without current pathol*05/06/2024 Lymphadenopathy [R59.1] 05/06/2024 Eosinophilia [D72.10] 05/08/2024 Eczema [L30.9] 05/08/2024 Peripheral eosinophilia [D72.19] 05/09/2024 Uvular edema [K13.79] 01/29/2025 Urticaria [L50.9] 01/29/2025 Post menopausal syndrome [N95.1] 06/25/2023 Pain in joint of right hip [M25.551] 10/01/2024 01/29/2025 Other fatigue [R53.83] 10/01/2024 01/29/2025 Osteoarthritis of right hip [M16.11] 10/01/2024 Non-celiac gluten sensitivity [K90.41] 06/25/2023 History of steroid therapy [Z92.241] 10/01/2024 01/29/2025 Abnormal radiographic examination [R93.89] 01/29/2025 01/29/2025 Varicose veins of bilateral lower extremities w*12/08/2022 Other specified noninflammatory disorders of ut*08/08/2024 Mastodynia [N64.4] 03/29/2022 Fatigue [R53.83] 09/26/2024 01/29/2025 H/O skin disorder [Z87.2] 01/29/2025 01/29/2025 Cyst of right breast [N60.01] 03/29/2022 Edema [R60.9] 01/29/2025 01/29/2025 Asymptomatic menopausal state [Z78.0] 03/24/2022 01/29/2025 Acute pharyngitis, unspecified [J02.9] 01/02/2024 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 Pain due to neoplasm [G89.3] 02/17/2025 Weight loss [R63.4] 01/15/2025 Malignant neoplasm of ovary (HCC) [C56.9] 04/20/2025 Constipation [K59.00] 01/10/2025 Axillary lymphadenopathy [R59.0] 04/20/2025 Abdominal pain [R10.9] 01/15/2025 PONV (postoperative nausea and vomiting) [R11.2*05/01/2025 Anemia [D64.9] 05/01/2025 Encounter Status:Closed by JACKIE SOLIMAN on 05/07/25 ECG 12 LEAD ECG Observed: 05/03/2025 2:35 PM Status: COMPLETED Source: [facility] [place] [address] Electrocardiograph Report Signed Patient: Mirian Corrales MR#: [id number] : 1955 Acct:[id number] Age/Sex: 69 / F ADM Date: 05/03/25 Loc: Room: [facility] Dr: Lisandro Vines II, DO Ordering Provider: Lisandro Vines II, DO Date of Service: 05/03/25 ECG/ECG 12 lead ECG: C56.9 - Malignant neoplasm of unspecified ovary Copies to: Test Reason : Blood Pressure : */* mmHG Vent. Rate : 64 BPM Atrial Rate : 64 BPM P-R Int : 128 ms QRS Dur : 78 ms QT Int : 402 ms P-R-T Axes : 79 71 67 degrees QTcB Int : 414 ms Sinus rhythm with premature atrial complexes Otherwise normal ECG When compared with ECG of 07-Apr-2024 21:34, No significant change was found Confirmed by SETH DAMIAN MD, FACC ([id number]) on 05/04/2025 11:11:36 AM Referred By: Rey Schrader Electronically Signed By: SETH DAMIAN MD, FACC Transcribed By: [facility] Signed By eSth Damian MD, FACC 05/04/25 1111 HISTORY PHYSICAL Observed: 05/01/2025 2:04 PM Status: COMPLETED Source: [facility] HNO ID: [id number] Author: GENTRY DE GUZMAN PA-C Service: ? Author Type: Physician Automatic Lump Making Machine Tender Type: H&P Filed: 05/04/2025 13:44 Note Text: [facility] HISTORY AND PHYSICAL EXAMINATION SERVICE DATE: 05/01/2025 SERVICE TIME: 5:20 PM PRIMARY CARE PHYSICIAN: Conner Stanley, DO Assessment Patient has the following medical conditions which may affect elroy-operative course: PONV (postoperative nausea and vomiting) Assessment: hx PONV and dry heaves Anemia Assessment: Most recent CBC ordered by surgeon Dr. Whalen COMPLETE BLOOD COUNT (04/27/2025 4:41 PM) Stable compared to prior CBC Patient recently has been getting chemo, most recent treatment 04/20/2025 Advised patient to continue to follow with oncology for the anemia Malignant neoplasm of ovary (HCC) Assessment: see HPI. Scheduled for surgery. Has been getting chemo. ANESTHESIA FINDINGS: Intubation History: No prior intubation Significant Anesthesia Considerations: hx PONV and dry heaves; slow emergence potential postop nausea/vomiting potential slow emergence Airway History: No prior intubation Ramsey Activity Status Index: METS: Walk indoors, such as around the house (1.75 METs) Do light work around the house, such as dusting or washing dishes (2.70 METs) Take care of self; that is eating, dressing, bathing, using the toilet (2.75 METs) Walk a block or two on level ground (2.75 METs) Do moderate work around the house, such as vacuuming, sweeping floors, or carrying in groceries (3.50 METs) Do yardwork, such as raking leaves, weeding, or pushing a power mower (4.50 METs) Climb a flight of stairs or walk up a hill (5.50 METs) DASI Score: 23.45 Patient denies any chest pain or undue shortness of breath with the above physical activity. Clinical Frailty Scale: 3. Well, with treated comorbid disease STOP-Bang Score: Snores loudly Patient over 50 years old Denies feeling tired, fatigued, or sleepy during the daytime Has not been observed to stop breathing or choking/gasping during sleep Denies having high blood pressure BMI less than or equal to 35 kg/m2 Does not have a large neck Non-male patient STOP-Bang Score: 2 I - PHYSICAL EVALUATION AIRWAY Patient intubated: No. Tracheostomy tube not present Mallampati: III. TM distance: >3 FB. Neck ROM: full ROM without neurological symptoms. Mouth opening: adequate. Short neck: no. Additional comments: +TMJ: hx clicking or locking. Thick neck: no Art present: no Lip Bite Test: II Microretrognathia/Micronagthia/Recessed Chin: No DENTAL Dental findings: teeth intact. II - ANESTHESIA PLAN Anesthetic plan additional comments: - anesthesia choice. Beta Virgilio Monitoring Plan Post Procedure Analgesic Plan Prepared for Surgery: optimally prepared for surgery, pending [see comment]. Patient reports she is planning on getting her pre-op ECG locally and faxing to [facility]. I provided her with [facility] fax number. ADDENDUM May 04, 2025 1:41 PM Patient said she had ECG done 05/03/2025. Has not yet been scanned into [employer]. I called her and gave her [facility] fax number and Dr. Whalen's fax number, she is going to call to get this faxed over to us. CONSULTS: Patient does not require consults for optimization at this time Planned Anesthetic: anesthesia choice The Following Tests/Procedures Have Been Initiated: ECG to be done This is a virtual visit using Stretch video visit. It required patient-provider interaction for the medical decision making as documented below. REASON FOR VISIT: Mirian Corrales is a 69 year old female who is scheduled for Procedure(s): LAPAROSCOPY WITH OOPHORECTOMY AND SALPINGECTOMY (Bilateral) at the request of Juan Nichole MD for consultation. My final recommendation will be communicated back to the requesting physician by way of shared medical record or letter. Subjective The patient has the following: COVID-19 Immunization Status This patient has no relevant Health Maintenance data. CHIEF COMPLAINT: pre-op HPI: This 69 year old female with carcinomatosis peritonei is scheduled for the above procedure and presents to the [facility] for pre-operative examination. Patient reports has ovarian cancer - has been going through chemo, has 2 more scheduled for after surgery. Follows with oncology locally closer to home. Her most recent chemo treatment was 04/20/2025. This is a virtual visit. The visit was conducted using Stretch video visit. It required patient-provider interaction for the medical decision making as documented below. I have communicated my name and active licensure. The patient's identity and physical location were verified at the time of this visit. Either the patient or their legal lead customer service representative has been informed of the risks and benefits of and alternatives to treatment through a remote evaluation and consents to proceed with the evaluation remotely. REVIEW OF SYSTEMS: General: Negative for: unintentional weight change, malaise and fever. 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 Negative for: seizures, TIA and strokes. Respiratory: + history of uvular edema - patient reports this was from a prior infection over a year ago No edema now and this was treated per patient Negative for: asthma, COPD, current cough, dyspnea, pneumonia within 6 weeks and obstructive sleep apnea. Cardiovascular: Positive for: PVD (varicose veins - no sxs) Negative for: chest pain, CHF, DVT/PE, hyperlipidemia, hypertension, recent ND, PTCA and open heart surgery. GI: Negative for: dysphagia, GERD, GI bleed <30 days, liver disease and ETOH >2 drinks/day. : Negative for: dysuria, frequent urination, hematuria, urinary incontinence, nephrolithiasis and renal failure. PRESIDENT + PUBLISHER: Negative for abnormal vaginal bleeding, abnormal vaginal discharge. Endocrine: Negative for: diabetes mellitus, hyperthyroidism, hypothyroidism and steroid for chronic problem. Hematology: Positive for: anemia. Negative for: factor V Leiden, hemophilia and chronic anti-coagulation/platelet meds. Oncology: See HPI. Psych: Negative for: anxiety and depression. Musculoskeletal: Negative for: back pain, joint pain and swelling. Skin: Negative for: lesions and rash. Implanted Devices: No implanted devices. 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 Lymphadenopathy 05/06/2024 Mastodynia 03/29/2022 Non-celiac gluten sensitivity 06/25/2023 Osteoarthritis of right hip 10/01/2024 Other specified noninflammatory disorders of uterus 08/08/2024 Peripheral eosinophilia 05/09/2024 Post menopausal syndrome 06/25/2023 Urticaria 01/29/2025 Uvular edema 01/29/2025 Varicose veins of bilateral lower extremities with pain 12/08/2022 PAST SURGICAL HISTORY Procedure Laterality Date PAST SURGICAL HISTORY OF colonoscopy x 2 FAMILY HISTORY Problem Relation Age of Onset Thyroid Mother Skin Cancer Father 88 Skin Cancer Brother 45 Ovarian cancer Paternal Grandmother 77 Skin Cancer Niece 25 Breast Cancer Maternal Aunt 42 Breast Cancer Paternal Aunt 75 Osteoporosis Paternal Aunt Heart Attack Maternal Uncle 80 SOCIAL HISTORY[1] Prior to Admission medications as of 05/01/25 1412 Medication Sig Last Dose Taking Magnesium 200 mg tab Take by mouth. Yes Bisacodyl (DULCOLAX) 5 mg tab Take 1 tablet by mouth as directed. Take 2 tablets at 3pm the day before surgery Yes calcium carbonate/vitamin D3 (CALCIUM CHEW ORAL) Take by mouth. Yes white petrolatum (AQUAPHOR) 41 % topical ointment Apply to affected area as needed. Yes Lactobacillus acidophilus (PROBIOTIC ORAL) Take 1 capsule by mouth once daily. Yes Cholecalciferol, Vitamin D3, 25 mcg (1,000 unit) cap Take 1,000 Units by mouth once daily. Yes neomycin 500 mg tablet Take 1 tablet by mouth as directed. Patient not taking: Reported on 05/01/2025 polyethylene glycol 3350 (MIRALAX) 17 gram/dose powder Purchase one 238 gram bottle of Miralax Use as directed Patient not taking: Reported on 05/01/2025 metroNIDAZOLE (FLAGYL) 500 mg tablet Take 1 tablet by mouth as directed. Take four tablets (2000mg) at 7pm and four tablets (2000mg) at 11pm the day prior to surgery Patient not taking: Reported on 05/01/[address] (PROTONIX) 40 mg tablet Take 1 tablet by mouth daily at 6 am. Patient should start on May 11, 2024. Patient not taking: Reported on 05/01/2025 No medication comments found. ALLERGIES Allergen Reactions Diphenylguanidine Rash Iodopropynyl Butylc* Rash Wheat Swelling Dairy Aid [Lactase] Swelling Bloating Objective PHYSICAL EXAM: (if completed, exam performed via video enabled technology) General: alert and oriented and healthy appearance. Skin: No rashes noted. HEENT: EOM intact. No injection and visual acuity is grossly normal Normocephalic External nose normal without rhinorrhea. Cardiovascular: Capillary refill < 3 seconds in BL upper extremities. Respiratory: Breathing non-labored, normal respiratory effort. Abdomen: Unable to examine over virtual visit. Extremities: Unable to examine over virtual visit. Neurological: No obvious deficits. PAIN ASSESSMENT: VITALS: Ht 5' 6 [pt reported[ (1.68m) Wt 106 lb (48.1kg) BMI 17.12 kg/(m2). Diagnostic tests reviewed for today's visit: Lab Value Units Date High Low HB 8.7 g/dL 04/27/2025 15.5 11.5 HCT 26.5 % 04/27/2025 46.0 36.0 WBC 3.79 k/uL 04/27/2025 11.00 3.70 PLT 163 k/uL 04/27/2025 400 150 NA 135 mmol/L 04/27/2025 144 136 K 4.4 mmol/L 04/27/2025 5.1 3.7 GLUC 101 mg/dL 04/27/2025 99 74 BUN 15 mg/dL 04/27/2025 21 7 CREAT 0.62 mg/dL 04/27/2025 0.96 0.58 PTSEC No results within date range. INR No results within date range. APTT No results within date range. ALT 17 U/L 04/27/2025 38 7 AST 26 U/L 04/27/2025 35 13 TBILI 0.4 mg/dL 04/27/2025 1.3 0.2 TSH No results within date range. Lab Value Units Date High Low HCGQT No results within date range. UHCG No results within date range. HCG, BODY* No results within date range. Lab Value Units Date High Low ABORHD No results within date range. ABSCREEN No results within date range. No results found for: HBA1C Recent Results (from the past 8760 hours) ECG COMPLETE Collection Time: 05/07/24 7:04 AM Result Value Ventricular Rate 81 Atrial Rate 81 P-R Interval 110 QRS Duration 84 QT Interval 384 QTC Calculation (Bazett) 446 Calculated P [place] 78 Calculated R [place] 51 Calculated T [place] 33 Impression SINUS RHYTHM WITH SHORT WY OTHERWISE NORMAL ECG Confirmed by BARBARA BRONSON, LUIS ENRIQUE ([id number]) on 05/30/2024 11:43:07 PM No results found for this or any previous visit (from the past 96817 hours). Instructions Given to Patient: Instructions located in the after visit summary. Patient given verbal and written preop instructions and voices comprehension and compliance. SIGNATURE: Gentry De Guzman PA-C PATIENT NAME: Mirian Corrales DATE: May 01, 2025 TIME: 2:04 PM PAGER/CONTACT #: [1] Social History Tobacco Use Smoking status: Never Smokeless tobacco: Never Vaping Use Vaping status: Never Used Substance Use Topics Alcohol use: Yes Drug use: Never CNPN Observed: 05/01/2025 12:00 AM Status: COMPLETED Source: [facility] Telephone (Hive[employer]) MIRIAN CORRALES ([id number]) 1955 F Date Time Provider Department 05/01/25 ZAINA OSORIO During your visit today, we recorded the following information about you: Zaina Osorio RN 05/01/2025 2:33 PM Signed Called and spoke to Net the pharmacy informatics manager at [facility]. Net needing clarification of how the patient is to take her antibiotic prior to surgery as the full prescription is not visible. Informed Net that the patient needs to take 4 tabs-2000 mg of the 500 mg at 7 pm and 4 tabs (2000 mg) at 11 pm the day prior to surgery. Net voices that she will get that taken care of. Zaina Osorio RN Gyn/Onc Host And Hostess Allergies As of Date: 05/01/2025 Noted Allergy Reaction DIPHENYLGUANIDINE 11/17/2024 2 - Rash IODOPROPYNYL BUTYLCARBAMATE 11/17/2024 2 - Rash WHEAT 08/24/2019 7 - Swelling DAIRY AID (LACTASE) 08/24/2019 7 - Swelling Comments: Bloating Date Reviewed: 05/01/2025 Reviewed by: Gentry De Guzman PA-C - Fully Assessed Prescriptions as of 05/01/2025 - neomycin 500 mg tablet Take 1 tablet by mouth as directed. - Magnesium 200 mg tab Take by mouth. - Bisacodyl (DULCOLAX) 5 mg tab Take 1 tablet by mouth as directed. Take 2 tablets at 3pm the day before surgery - polyethylene glycol 3350 (MIRALAX) 17 gram/dose powder Purchase one 238 gram bottle of Miralax Use as directed - metroNIDAZOLE (FLAGYL) 500 mg tablet Take 1 tablet by mouth as directed. Take four tablets (2000mg) at 7pm and four tablets (2000mg) at 11pm the day prior to surgery - calcium carbonate/vitamin D3 (CALCIUM CHEW ORAL) Take by mouth. - white petrolatum (AQUAPHOR) 41 % topical ointment Apply to affected area as needed. - pantoprazole DR (PROTONIX) 40 mg tablet Take 1 tablet by mouth daily at 6 am. Patient should start on May 11, 2024. - Lactobacillus acidophilus (PROBIOTIC ORAL) Take 1 capsule by mouth once daily. - Cholecalciferol, Vitamin D3, 25 mcg (1,000 unit) cap Take 1,000 Units by mouth once daily. 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] 05/06/2024 Age-related osteoporosis without current pathol*05/06/2024 Lymphadenopathy [R59.1] 05/06/2024 Eosinophilia [D72.10] 05/08/2024 Eczema [L30.9] 05/08/2024 Peripheral eosinophilia [D72.19] 05/09/2024 Uvular edema [K13.79] 01/29/2025 Urticaria [L50.9] 01/29/2025 Post menopausal syndrome [N95.1] 06/25/2023 Pain in joint of right hip [M25.551] 10/01/2024 01/29/2025 Other fatigue [R53.83] 10/01/2024 01/29/2025 Osteoarthritis of right hip [M16.11] 10/01/2024 Non-celiac gluten sensitivity [K90.41] 06/25/2023 History of steroid therapy [Z92.241] 10/01/2024 01/29/2025 Abnormal radiographic examination [R93.89] 01/29/2025 01/29/2025 Varicose veins of bilateral lower extremities w*12/08/2022 Other specified noninflammatory disorders of ut*08/08/2024 Mastodynia [N64.4] 03/29/2022 Fatigue [R53.83] 09/26/2024 01/29/2025 H/O skin disorder [Z87.2] 01/29/2025 01/29/2025 Cyst of right breast [N60.01] 03/29/2022 Edema [R60.9] 01/29/2025 01/29/2025 Asymptomatic menopausal state [Z78.0] 03/24/2022 01/29/2025 Acute pharyngitis, unspecified [J02.9] 01/02/2024 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 Address: [address] [place] [address] TYPE CODE TESTS RESULT OUT OF RANGE REFERENCE UNITS LAB [id number] ABO A LAB [id number] RH Positive Performed By: #### CONABO ## ## CC MAIN BLOOD BANK [facility] [id number] [address] [place] [address] STATES OF [place] COMP METAB 2000 PNL SERPL Collected: 4:41 PM Status: F Source: [facility] Order Comment: Specimen Type : BLOOD SPECIMEN Ordering Facility: [facility] Address: [address] [place] [address] TYPE CODE TESTS RESULT OUT OF RANGE REFERENCE UNITS LAB 2885-2(LOINC) Prot SerPl-mCnc 7.5 6.3-8.0 g/dL LAB 1751-7(LOINC) Albumin SerPl-mCnc 4.4 3.9-4.9 g/dL LAB 21797-0(LOINC) Calcium SerPl-mCnc 9.4 8.5-10.2 mg/dL LAB 1975-2(LOINC) Bilirub SerPl-mCnc 0.4 0.2-1.3 mg/dL LAB 6768-6(LOINC) ALP SerPl-cCnc 64 34-123 U/L LAB 1920-8(LOINC) AST SerPl-cCnc 26 13-35 U/L LAB 1742-6(LOINC) ALT SerPl-cCnc 17 7-38 U/L LAB 2345-7(LOINC) Glucose SerPl-mCnc 101 High 74-99 mg/dL Result Comment: The [place] [employer] (ADA) provides guidance for cutoff [...] Standards of Medical Care in Diabetes 2016, [place] [employer]. Diabetes Care. 2016.39(Suppl 1). LAB 3094-0(LOINC) BUN SerPl-mCnc 15 7-21 mg/dL LAB 2160-0(LOINC) Creat SerPl-mCnc 0.62 0.58-0.96 mg/dL LAB 2951-2(LOINC) Sodium SerPl-sCnc 135 Low 136-144 mmol/L LAB 2823-3(LOINC) Potassium SerPl-sCnc 4.4 3.7-5.1 mmol/L LAB 2075-0(LOINC) Chloride SerPl-sCnc 99 98-107 mmol/L LAB 2027-9(LOINC) CO2 SerPl-sCnc 22 22-30 mmol/L LAB 93029-1(LOINC) Anion Gap SerPl-sCnc 14 8-15 mmol/L LAB 34311-0(LOINC) eGFRcr SerPlBld CKD-EPI 2020 97 >=60 mL/min/1. 73m??? Result Comment: Estimated Gl omerular Filtration Rate (eGFR) is calculated using the 2020 CKD-EPI creatinine equation. This equation utilizes serum creatinine, sex, and age as parameters. The creatinine assay has traceable calibration to isotope dilution-mass spectrometry. Refer to KDIGO guidelines for clinical interpretation. In patients with unstable renal function, e.g. those with acute kidney injury, the eGFR may not accurately reflect actual GFR. Performed By: #### 08882-8, 14404-2 #### [facility] CLIA [id number] [address] [place], [place] [address] [facility] CANCER AG125 SERPL-ACNC Collected: 04/2025 4:41 PM Status: F Source: [facility] Order Comment: Specimen Type : BLOOD SPECIMEN Ordering Facility: [facility] Address: [address] [place] [address] TYPE CODE TESTS RESULT OUT OF RANGE REFERENCE UNITS LAB 60414-2([facility] ) Cancer Ag125 SerPl-aCnc 24 <39 U/mL Result Comment: CA 125 test methodology used is the Electrochemiluminescence Immunoassay by [facility] [facility]. Results obtained with different methods or kits cannot be used interchangeably. The reference interval is based on the 95th percentile of 240 apparently healthy premenopausal and postmenopausal women. At a cutoff value of 65 U/mL, the test sensitivity to distinguish ovarian carcinoma (FIGO stage I to IV) versus benign gynecological disease is 79%, with a specificity of 82%. Reference: Cancer Antigen 125 (CA 125 II) [package insert V 1.0 Monegasque]. [facility], [place], [place] (June 2015) Performed By: #### 29717-4, 17209-5 #### [facility] CLIA [id number] [address] [place], [place] [address] [facility] TYPE AND SCREEN,30 DAY Collected: 04/27/2025 4:41 PM Status: F Source: [facility] Order Comment: Specimen Type : BLOOD SPECIMEN Ordering Facility: [facility] Address: [address] [place] [address] TYPE CODE TESTS RESULT OUT OF RANGE REFERENCE UNITS LAB [id number] ABO A LAB [id number] RH Positive LAB [id number] ANTIBODY SCREEN Negative Performed By: #### [id number] ## ## CC MAIN BLOOD BANK CLIA [id number] [address] [place] [address] OF SAJAN CBC PNL BLD AUTO Collected: 4:41 PM Status: F Source: [facility] Order Comment: Specimen Type : BLOOD SPECIMEN Ordering Facility: [facility] Address: [address] [place] [address] TYPE CODE TESTS RESULT OUT OF RANGE REFERENCE UNITS LAB 6690-2([facility]) WBC # Bld Auto 3.79 3.70-11.00 k/uL LAB 789-8(INC) RBC # Bld Auto 2.80 Low 3.90-5.20 m/uL LAB 718-7(INC) Hgb Bld-mCnc 8.7 Low 11.5-15.5 g/dL LAB 4544-3(INC) Hct VFr Bld Auto 26.5 Low 36.0-46.0 % LAB 787-2(LOINC) MCV RBC Auto 94.6 80.0-100.0 fL LAB 785-6(INC) MCH RBC Qn Auto 31.1 26.0-34.0 pg LAB 786-4(LOINC) MCHC RBC Auto-mCnc 32.8 30.5-36.0 g/dL LAB 05743-3(LOINC) RDW RBC-Rto 20.4 High 11.5-15.0 % LAB 777-3(LOINC) Platelet # Bld Auto 163 150-400 k/uL LAB 79903-8(LOINC) PMV Bld Auto 10.9 9.0-12.7 fL LAB 771-6(LOINC) nRBC # Bld Auto <0.01 <0.01 k/uL Performed By: #### 59454-4 # ### [facility] CLIA [id number] [address] [place] [address] STATES OF [place] XR CHEST 2V FRONTAL/LAT Observed: 2024 4:30 PM Status: F Source: [facility] * * *Final Report* * * DATE OF EXAM: Apr 27 2025 4:30PM AOX 5291 - XR CHEST 2V FRONTAL/LAT / PROCEDURE REASON: Carcinomatosis peritonei (HCC) * * * * Physician Interpretation * * * * EXAMINATION: CHEST RADIOGRAPH (2 VIEW FRONTAL and LATERAL) CLINICAL HISTORY: Carcinomatosis peritonei (HCC) MQ: XC2_6 EXAM DATE/TIME: 04/27/2025 4:30 PM COMPARISON: Chest CT a 2023. RESULT: Lines, tubes, and devices: None. Lungs and pleura: The lungs are hyperinflated. No consolidation. No lung mass. No pleural effusion. No pneumothorax. Cardiomediastinal silhouette: Normal cardiomediastinal silhouette. Bones and soft tissues: Unremarkable. IMPRESSION: No acute radiographic abnormality. Dyeing Machine Tender: PSCReggie Transcribe Date/Time: Apr 27 2025 7:03P Dictated by : JOSUE RODRIGUEZ MD This examination was interpreted and the report reviewed and electronically signed by: JOSUE RODRIGUEZ MD on Apr 27 2025 7:03PM EST [id number] PROGRESS Observed: 04/27/2025 4:25 PM Status: COMPLETED Source: [facility] ID: [id number] Author: JARRED BRISCOE RT(Jered) Service: Radiology Author Type: Financial Foundations Associate Type: Progress Notes Filed: 04/27/2025 16:31 Note Text: Radiology Service Progress Note PATIENT NAME: Mirian Corrales DATE OF SERVICE: April 27, 2025 TIME: 4:30 PM PATIENT IDENTITY VERIFICATION COMPLETED USING TWO (2) IDENTIFIERS: Name and Date of confirmed by patient verbally. FALL SCREENING: Has the patient had 2 falls in the last year or 1 fall with injury or currently using an Ambulatory Assistive Device (Walker, Cane, Wheelchair, Crutches, etc.)? No PATIENT GENDER DATA: Assigned female at . status: : No status: NO. PATIENT RELEVANT IMPLANT DATA REVIEWED: Not Applicable PATIENT PRESENTS WITH AN IMPLANTABLE OR ATTACHED SKIP PIT WORKER: No RADIOLOGY DEPARTMENT: General X-ray: Exam(s) Completed: Chest X-Ray PERIPHERAL IV DATA: Not applicable SIGNED BY: RT Scott(Jered) April 27, 2025 4:30 PM PROGRESS Observed: 04/27/2025 3:20 PM Status: COMPLETED Source: [facility] HNO ID: [id number] Author: JUAN WHALEN MD Service: ? 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 She presents today to establish care with urogynaecologist oncology. 08/24/2022 INVITAE TESTIN11/23/2024 Small Bowel Biopsy: 01/15/2025 CT ABD/PELVIS: IMPRESSION: BIBASILAR ATELECTASIS OR SCARRING. TINY INDETERMINANT HEPATIC HYPODENSITIES. NO BOWEL OR URINARY TRACT OBSTRUCTION. ABDOMINAL AND PELVIC LYMPHADENOPATHY. FOLLOW-UP WILL BE NEEDED TO ASSESS FOR THE POSSIBILITY OF MALIGNANCY, PARTICULARLY LYMPHOMA. SUSPECTED UTERINE FIBROID. UNDER DISTENDED URINARY BLADDER WITH APPARENT WALL THICKENING 01/17/2025 Axilla US: 01/18/2025 Axilla Biopsy: 01/24/2025 US FEMALE PELVIS: IMPRESSION: 1. Heterogeneous uterine echotexture with multiple fibroids, one calcified. 2. Right ovarian subcentimeter shadowing echogenic focus. This may represent a calcification however, calcified mass lesion can not be entirely excluded. 01/29/2025 CEA: 1.3 01/29/2025 PET: 01/29/2025 1:08 PM EDT 1. FDG avid lymph nodes involving the neck, chest, abdomen and pelvis as described above consistent with metastatic disease. 2. FDG avid lesion involving the liver suggestive of metastatic disease. 3. Abnormal activity involving the L4 vertebral body suggestive of metastatic disease. 4. Ill-defined activity involving the right breast without definitive lesion. Finding is nonspecific. If further evaluation is needed, diagnostic mammography/ultrasound could BE performed. 02/06/2025 Visit: 1. 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 Disease is not resectable due to multiple locations. - Initiate chemotherapy with Carboplatin and Paclitaxel. - Obtain a PET scan after 3 cycles (approximately 9 weeks) to assess response. - Discussed potential for surgery post-chemotherapy if disease is controlled. - Consider PARP inhibitor therapy post-chemotherapy. - Signed consent for chemotherapy so authorization for treatment at [place] can be initiated. - Patient to follow-up with Dr. Evangelista at [facility] to start treatment. 2. Ovarian cancer genetic susceptibility (Z15.02) BRIP1 mutation positive; family history significant for BRIP1 mutation in father and two brothers with pancreatic cancer. - Genetic counseling and testing for family members as indicated. 3. Other abnormal tumor markers (R97.8) CA-125 level elevated at 258 U/mL (normal <39 U/mL) on 01/29. - Monitor CA-125 levels to assess treatment response. 04/18/2025 PET- OSH IMPRESSION: Significant interval treatment response involving previously significantly FDG avid cervical, axillary, mediastinal, epicardial, or right hilar, and retroperitoneal lymphadenopathy. There are a few residual mildly prominent but less FDG avid lymph nodes noted within the mediastinum, axilla, and right iliac chain. There is an 11 mm soft tissue attenuating structure in the right lower lobe posteriorly and laterally with a maximum SUV of 2.2. This is new when compared to the prior exam and is suspicious for a metastatic focus. There is a 4 mm subtly FDG avid nodule within the right middle lobe appears to be new. There is a maximum SUV of 0.6. Subtle asymmetric radiotracer accumulation is noted in the right oropharyngeal mucosa along the right glossotonsillar sulcus with a maximum SUV of 3.2. This is nonspecific but persists when compared to the prior exam. Malignancy is not excluded. Direct visualization is recommended. 04/20/2025 OSH Visit Completed 4 cycles of Carbo/taxol. she does note slight neuropathy and a little bit in her toes. she freezes her hands and feet for chemo. ASSESSMENT/PLAN Metastatic Stage IV ovarian cancer. Biopsy R axilla confirms. ca125 baseline 258. multifocal adenopathy, no obvious visceral disease Pet/ct noted mediastinal, right hilar, right axillary adenopathy. abnormal R lobe liver SUV 3.4 unclear if involved. Retroperitoneal adenopathy and L4 vertebral body metastatic disease. No evidence Mismatch repair abnormality. PATHOGENETIC BRIP1 mutation. carboplatin paclitaxel began january 2025. Dr Whalen is comanaging. c1d1 02/13/25 c2d1 scheduled for 03/06/25. c3d1 03/30/25 c4d1 04/20/25 PEt/ct around 04/18/25. with near complete response. will send back to dr whalen for discussion. Dermatologic concerns. Eczematous condition systemic severe. i am hesitant for immunotherapy. will consider in future as Dr whalen is primarily managing. She has been undergoing full body phototherapy since May or june 2024. will give 6 cycles and reconsider for resection and parp inhibitor. SUBJECTIVE/INTERVAL HISTORY: Patient is feeling well and denies shortness of breath, nausea, vomiting, constipation, problems urinating, unexplained weight loss, or vaginal bleeding. OBJECTIVE: BP 128/72 (BP Site: Left Arm, BP Position: Sitting, BP Cuff Size: Regular Adult) Pulse 82 Temp 36.9 ?C (98.4 ?F) (Temporal) Wt 49.4 kg (108 lb 14.5 oz) SpO2 100% BMI 17.58 kg/m? Female in no acute distress. Neck - Negative. Supraclavicular - Adenopathy absent. Cardiac - Regular rate and rhythm without murmur or gallop. Carotids 2+ without bruits. Respiratory - Clear to ausculation bilaterally. Abdominal - No CVA tenderness. The bowel sounds are positive. The abdomen is soft and nontender. Security Solutions Architect for exam: Marva Nina RN and The sensitive examination was discussed with the Patient or Patient's Authorized Principal Hardware Architect. As applicable, any other physician, advance practice provider, medical student, or other health professional student that will be observing or involved in the sensitive examination for educational or training purposes was discussed with the Patient or Authorized Principal Hardware Architect. The Patient or Authorized Principal Hardware Architect has agreed to proceed with the sensitive examination. IMPRESSION/PLAN: 04/27/2025 The patient has received 4 cycles of neoadjuvant chemotherapy and has had an excellent response. The small areas that are seen on her PET scan now have very low FDG activity and are of questionable significance. The standard practice with neoadjuvant chemotherapy is to consider interval debulking surgery after 3-4 cycles. 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 Only 3 to 4% of patients who undergo neoadjuvant chemotherapy have a complete pathologic response. About 20% ovarian cancer patients have a germline mutation in BRCA1, 2 or other genes along the pathway. It is likely the patient's to have a complete pathologic response are BRCA mutated and therefore roughly 20% of the BRCA mutated patients may have a pathologic complete response. She has not had any abdominal surgery and I think would be reasonable to perform a laparoscopic bilateral salpingo-oophorectomy since this is where the tumor has likely arisen. Of note, her prior PET scan at diagnosis did not demonstrate any specific uptake in the pelvic organs. I would propose that this be done at this time before pursuing cycle #5. Typically patients who undergo interval debulking surgery received 3 of 4 cycles of chemotherapy after surgery. If the patient had a pathologic complete response probably given 3 cycles would be appropriate. In view of the patient's advanced stage stage IVb and received neoadjuvant chemotherapy the patient should be at significant risk for recurrence. Since the patient has a BRCA like mutation maintenance therapy with a PARP inhibitor would be reasonable. There is currently an ongoing [employer] sponsored trial of 1 versus 2 years of olaparib maintenance for BRCA mutated stage III and IV patients which the patient would be eligible for. Provider Attestation: Juan Garza MD, personally performed the services described in this documentation. All medical record entries made by the AI scribe were reviewed. The chart and discharge instructions (if applicable) and I agree that the record reflects my personal performance and is accurate and complete. Juan Whalen MD April 28, 2025 5:33 AM I have confirmed and edited as necessary, the history of the present illness (HPI). Interval changes in the history of present illness are noted. I have confirmed and edited as necessary, the PFSH and ROS obtained by others. I saw the patient and personally participated in the gaming components and agree with the documented findings and plan. Sincerely, Juan Whalen M.D. Reviewed and corrected by Juan Whalen M.D. Recording using ambient AI software for draft documentation of the visit was discussed with the patient/authorized lead customer service representative; all questions welcomed and answered. Patient/authorized lead customer service representative agreed to proceed Resident/Fellow's history reviewed. Patient interviewed and examined. Assessment and plan reviewed with fellow. I have personally examined the patient and repeated the gaming components of the exam/history. The assessment and plan were formulated and discussed with the resident/fellow. CC: Conner Stanley DO (PCP) The previous note from Dr Whalen on 02/06/2025 was copied forward and the necessary changes were made above. Medical Decision Making: Problems: Moderate: 2+ stable chronic illnesses Data: Unique test result(s) reviewed: 2 Risk: Moderate: Decision on minor surgery w/ risk factors Medical Decision Making Level: 4 - Moderate CNOVSP Observed: 04/27/2025 3:20 PM Status: COMPLETED Source: [facility] Visit (SP) Office (JOV[place]) MIRIAN CORRALES ([id number]) 1955 F Date Time Provider Department 04/27/25 3:20 PM JUAN WHALEN During your visit today, we recorded the following information about you: Temperature Pulse Blood pressure Weight 98.4 degrees 82/minute 128/72 49.4 kg Juan Whalen MD 04/28/2025 5:34 AM Signed Gynecologic Oncology [facility] Follow Up Re: Mirian Corrales [facility]#: [id number] Date of service:04/27/2025 Lisandro Vines DO Dear Lisandro: Briefly, she is a 69 year old female has a past medical history of Acute pharyngitis, unspecified (01/02/2024), Age-related osteoporosis without current pathological fracture (05/06/2024), Cyst of right breast (03/29/2022), Eczema (05/08/2024), Eosinophilia (05/08/2024), H/O skin disorder (01/29/2025), 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 She presents today to establish care with urogynaecologist oncology. 08/24/2022 INVITAE TESTIN11/23/2024 Small Bowel Biopsy: 01/15/2025 CT ABD/PELVIS: IMPRESSION: BIBASILAR ATELECTASIS OR SCARRING. TINY INDETERMINANT HEPATIC HYPODENSITIES. NO BOWEL OR URINARY TRACT OBSTRUCTION. ABDOMINAL AND PELVIC LYMPHADENOPATHY. FOLLOW-UP WILL BE NEEDED TO ASSESS FOR THE POSSIBILITY OF MALIGNANCY, PARTICULARLY LYMPHOMA. SUSPECTED UTERINE FIBROID. UNDER DISTENDED URINARY BLADDER WITH APPARENT WALL THICKENING 01/17/2025 Axilla US: 01/18/2025 Axilla Biopsy: 01/24/2025 US FEMALE PELVIS: IMPRESSION: 1. Heterogeneous uterine echotexture with multiple fibroids, one calcified. 2. Right ovarian subcentimeter shadowing echogenic focus. This may represent a calcification however, calcified mass lesion can not be entirely excluded. 01/29/2025 CEA: 1.3 01/29/2025 PET: 01/29/2025 1:08 PM EDT 1. FDG avid lymph nodes involving the neck, chest, abdomen and pelvis as described above consistent with metastatic disease. 2. FDG avid lesion involving the liver suggestive of metastatic disease. 3. Abnormal activity involving the L4 vertebral body suggestive of metastatic disease. 4. Ill-defined activity involving the right breast without definitive lesion. Finding is nonspecific. If further evaluation is needed, diagnostic mammography/ultrasound could BE performed. 02/06/2025 Visit: 1. 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 Disease is not resectable due to multiple locations. - Initiate chemotherapy with Carboplatin and Paclitaxel. - Obtain a PET scan after 3 cycles (approximately 9 weeks) to assess response. - Discussed potential for surgery post-chemotherapy if disease is controlled. - Consider PARP inhibitor therapy post-chemotherapy. - Signed consent for chemotherapy so authorization for treatment at [facility] can be initiated. - Patient to follow-up with Dr. Evangelista at [facility] to start treatment. 2. Ovarian cancer genetic susceptibility (Z15.02) BRIP1 mutation positive; family history significant for BRIP1 mutation in father and two brothers with pancreatic cancer. - Genetic counseling and testing for family members as indicated. 3. Other abnormal tumor markers (R97.8) CA-125 level elevated at 258 U/mL (normal <39 U/mL) on 01/29. - Monitor CA-125 levels to assess treatment response. 04/18/2025 PET- OSH IMPRESSION: Significant interval treatment response involving previously significantly FDG avid cervical, axillary, mediastinal, epicardial, or right hilar, and retroperitoneal lymphadenopathy. There are a few residual mildly prominent but less FDG avid lymph nodes noted within the mediastinum, axilla, and right iliac chain. There is an 11 mm soft tissue attenuating structure in the right lower lobe posteriorly and laterally with a maximum SUV of 2.2. This is new when compared to the prior exam and is suspicious for a metastatic focus. There is a 4 mm subtly FDG avid nodule within the right middle lobe appears to be new. There is a maximum SUV of 0.6. Subtle asymmetric radiotracer accumulation is noted in the right oropharyngeal mucosa along the right glossotonsillar sulcus with a maximum SUV of 3.2. This is nonspecific but persists when compared to the prior exam. Malignancy is not excluded. Direct visualization is recommended. 04/20/2025 OSH Visit Completed 4 cycles of Carbo/taxol. she does note slight neuropathy and a little bit in her toes. she freezes her hands and feet for chemo. ASSESSMENT/PLAN Metastatic Stage IV ovarian cancer. Biopsy R axilla confirms. ca125 baseline 258. multifocal adenopathy, no obvious visceral disease Pet/ct noted mediastinal, right hilar, right axillary adenopathy. abnormal R lobe liver SUV 3.4 unclear if involved. Retroperitoneal adenopathy and L4 vertebral body metastatic disease. No evidence Mismatch repair abnormality. PATHOGENETIC BRIP1 mutation. carboplatin paclitaxel began january 2025. Dr Whalen is comanaging. c1d1 02/13/25 c2d1 scheduled for 03/06/25. c3d1 03/30/25 c4d1 04/20/25 PEt/ct around 04/18/25. with near complete response. will send back to dr whalen for discussion. Dermatologic concerns. Eczematous condition systemic severe. i am hesitant for immunotherapy. will consider in future as Dr whalen is primarily managing. She has been undergoing full body phototherapy since May or june 2024. will give 6 cycles and reconsider for resection and parp inhibitor. SUBJECTIVE/INTERVAL HISTORY: Patient is feeling well and denies shortness of breath, nausea, vomiting, constipation, problems urinating, unexplained weight loss, or vaginal bleeding. OBJECTIVE: BP 128/72 (BP Site: Left Arm, BP Position: Sitting, BP Cuff Size: Regular Adult) Pulse 82 Temp 36.9 ?C (98.4 ?F) (Temporal) Wt 49.4 kg (108 lb 14.5 oz) SpO2 100% BMI 17.58 kg/m? Female in no acute distress. Neck - Negative. Supraclavicular - Adenopathy absent. Cardiac - Regular rate and rhythm without murmur or gallop. Carotids 2+ without bruits. Respiratory - Clear to ausculation bilaterally. Abdominal - No CVA tenderness. The bowel sounds are positive. The abdomen is soft and nontender. Security Solutions Architect for exam: Marva Nina RN and The sensitive examination was discussed with the Patient or Patient's Authorized Principal Hardware Architect. As applicable, any other physician, advance practice provider, medical student, or other health professional student that will be observing or involved in the sensitive examination for educational or training purposes was discussed with the Patient or Authorized Principal Hardware Architect. The Patient or Authorized Principal Hardware Architect has agreed to proceed with the sensitive examination. IMPRESSION/PLAN: 04/27/2025 The patient has received 4 cycles of neoadjuvant chemotherapy and has had an excellent response. The small areas that are seen on her PET scan now have very low FDG activity and are of questionable significance. The standard practice with neoadjuvant chemotherapy is to consider interval debulking surgery after 3-4 cycles. 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 Only 3 to 4% of patients who undergo neoadjuvant chemotherapy have a complete pathologic response. About 20% ovarian cancer patients have a germline mutation in BRCA1, 2 or other genes along the pathway. It is likely the patient's to have a complete pathologic response are BRCA mutated and therefore roughly 20% of the BRCA mutated patients may have a pathologic complete response. She has not had any abdominal surgery and I think would be reasonable to perform a laparoscopic bilateral salpingo-oophorectomy since this is where the tumor has likely arisen. Of note, her prior PET scan at diagnosis did not demonstrate any specific uptake in the pelvic organs. I would propose that this be done at this time before pursuing cycle #5. Typically patients who undergo interval debulking surgery received 3 of 4 cycles of chemotherapy after surgery. If the patient had a pathologic complete response probably given 3 cycles would be appropriate. In view of the patient's advanced stage stage IVb and received neoadjuvant chemotherapy the patient should be at significant risk for recurrence. Since the patient has a BRCA like mutation maintenance therapy with a PARP inhibitor would be reasonable. There is currently an ongoing [employer] sponsored trial of 1 versus 2 years of olaparib maintenance for BRCA mutated stage III and IV patients which the patient would be eligible for. Provider Attestation: I, Juan Whalen MD, personally performed the services described in this documentation. All medical record entries made by the LEATHA simms were reviewed. The chart and discharge instructions (if applicable) and I agree that the record reflects my personal performance and is accurate and complete. Juan Whalen MD April 28, 2025 5:33 AM I have confirmed and edited as necessary, the history of the present illness (HPI). Interval changes in the history of present illness are noted. I have confirmed and edited as necessary, the PFSH and ROS obtained by others. I saw the patient and personally participated in the gaming components and agree with the documented findings and plan. Sincerely, Juan Whalen M.D. Reviewed and corrected by Juan Whalen M.D. Recording using ambient K[employer] software for draft documentation of the visit was discussed with the patient/authorized lead customer service representative; all questions welcomed and answered. Patient/authorized lead customer service representative agreed to proceed Resident/Fellow's history reviewed. Patient interviewed and examined. Assessment and plan reviewed with fellow. I have personally examined the patient and repeated the gaming components of the exam/history. The assessment and plan were formulated and discussed with the resident/fellow. CC: Conner Stanley DO (PCP) The previous note from Dr Whalen on 02/06/2025 was copied forward and the necessary changes were made above. Medical Decision Making: Problems: Moderate: 2+ stable chronic illnesses Data: Unique test result(s) reviewed: 2 Risk: Moderate: Decision on minor surgery w/ risk factors Medical Decision Making Level: 4 - Moderate Libby Good, STORM SASH MAKER.MEAT DEPARTMENT MANAGER 04/27/2025 3:50 PM Signed Please visit the following website for the [facility] surgery guide. [email or web address] PATIENT SURGICAL CHECKLIST - NEXT STEPS - Your surgeon's office will call you to arrange your surgery date and pre-admission testing appointments. - You should receive a call within 2-5 business days from our scheduling team. (If you do not receive a call within 5 days - please call [phone]) - Pre-admission testing appointments include: - Preop anesthesia clearance with [facility] (pre-anesthesia consultation clinic). There are options for in person appointments or virtual appointments based on the recommendations from your surgeon. - Preop exam which can be done at the time of an in person pre-anesthesia appointment or by your surgeon's team depending on the complexity of your medical history. This needs to be done within 30 days of surgery. - Virtual shared preop nurse teaching appointment. - Lab work - Any other testing that the provider orders for prior to surgery if needed - You will receive a call from the billposting supervisor the business day prior to your surgery as to when and where to arrive on the day of your scheduled surgery [facility] ONCOLOGY PHYSICIAN CONTACT INFORMATION Surgery Scheduling Office Surgeons: Dr. Karen Johnston Dr. Claudia Segovia Dr. Conner Addison Dr. Mega Hutton Dr. Anna Diaz Dr. Ebonie Gilliland Dr. Christopher Holland Dr. Juan Whalen Dr. Stephen Mas Dr. Javy Robb [facility] Nurse Practitioners: Aliyah Ritchie, STORM SASH MAKER.TIERNEY Hanks, STORM SASH MAKER.TIERNEY Cleveland, STORM SASH MAKER.TIERNEY Rucker, STORM SASH MAKER.TIERNEY Rader, STORM SASH MAKER.MEAT DEPARTMENT MANAGER After 4:30 pm or on holidays or weekends, call: or . Ask the batch mixer operator to page the urogynaecologist oncologist rail operations controller. PRE-OPERATIVE CHECKLIST: PATIENT INSTRUCTIONS PRIOR TO SURGERY Our guidelines have changed, so please read these instructions carefully. Your surgery may be cancelled if you do not follow these instructions. MY ARRIVAL TIME IS: I have been instructed not to have any solid food to eat after midnight prior to my surgery (this includes no gum, mints, smoking). I am allowed to drink small amounts (up to 12 oz) of clear liquids up until 2 hours prior to my arrival time. Clear liquids include water, fruit juices without pulp, carbonated beverages (i.e. ladan leanna), electrolyte beverages (i.e. Gatorade), clear tea and black coffee, clear broth, popsicles and jello. (No milk). No alcohol the day before or day of surgery. I will bring this binder to all pre and post-operative appointments AND day of surgery. MEDICATION STOPPAGE: Unless my surgeon tells me differently, I will STOP THESE MEDICATIONS 7 DAYS PRIOR TO SURGERY: (Motrin/ibuprofen/Naproxen/Aleve/Advil), Aspirin, vitamin E, herbal medications, diet pills, and [id number] medications. Tylenol (acetaminophen) is okay. I will not wear jewelry, body piercing(s), makeup, nail prydeinig, hairpins, or contacts on the day of surgery. I am to leave valuables and money at home or with family members. If I am prescribed inhalers for breathing, I will use them and bring them to the hospital. Medication(s) to be taken on the morning of surgery with a few sips of water: If I am taking any of the following blood thinning medications - Aspirin, clopidogrel (Plavix), ticagrelor (Brilinta), prasugrel (Efficient), ticlodipine (Ticlid), warfarin (Coumadin), dibigatran (Pradaxa) or rivaroxaban (Xarelto) - I will discuss whether or not I should stop them before surgery with my surgeon. Discuss medication changes with your machinery erector or primary care physician as well. If I stopped taking my blood-thinning medication, I will ask the surgeon when to resume taking it. If I am an outpatient, a responsible person will drive me home and it was suggested that someone stay with me for 24 hours. I understand that a territory business manager or cabdriver is NOT a responsible caregiver. Patients with diabetes, I will not take my morning diabetes medication (pills) on the morning of surgery. If I am on insulin, someone has gone over those instructions with me for the morning of surgery. I understand if my surgery is delayed, I will notify the check in desk that I have diabetes. See the ?Diabetic Guidelines Before Surgery? in the patient education section. If I have Obstructive Sleep Apnea and use a CPAP/BiPAP machine, I will bring my mask, tubing, and machine with me on the day of surgery. Pain management education material found in Your Surgical Guide was reviewed with me. To find out my arrival time for surgery, I must call my surgical nurse practitioner after 2pm the day before surgery. Pre-operative instructions given by: PREOP INSTRUCTIONS THE DAY OF SURGERY/CHECK IN Report to DESK J1-9 for surgery. A map is located in Your Surgical Guide Book. The online version of the surgical guide book can be found at: [email or web address] The address is [address] [place], [place] [id number] INFECTION PREVENTION Please notify your doctor if you have any signs of an infection (i.e. fever, severe cough, nasal congestion, pain with urination, abnormal vaginal discharge, diarrhea, etc). Your surgeon will let you know if a bowel prep is needed before your surgery. If so, please see the attached instructions. Shower the night before surgery AND the morning of surgery with Hibiclens (provided by your surgeon). If you are allergic to Hibiclens or unable to obtain the Hibiclens, please wash with antibacterial soap. Wash your body from the neck down, focusing on your abdomen, belly button and external genitalia. Do not forget to scrub any skin folds and creases. No lotions, oils, creams, or powders after your shower. Underarm deodorant is okay. No shaving (abdominal or pubic hair) or douching the day before surgery. You may be asked to apply an antiseptic solution called Chlorhexidine Gluconate (CHG) which will be provided to you on arrival to the preop area. Hand washing is extremely important in preventing infection (for both you as the patient and for the caregivers). HOSPITALIZATION Before you leave the hospital, you typically need to be able to eat/drink, urinate, and have your pain controlled with oral medication. Your surgeon or other members of your surgeon?s team will discuss any other specific medical issues related to your discharge with you. Your surgeon may order intermittent compression sleeves. These are ?massaging leg pumps? to help prevent blood clots after surgery. See Your Surgical Guide Book for more information. It is also very important that you walk as soon as possible and as frequently as possible after surgery. This will help decrease your risk of blood clots, exercise your lungs and speed up your recovery after surgery. If you are admitted to the hospital overnight, you will be given an incentive spirometer, which is a breathing machine that will help make sure that you are taking deep breaths and expanding your lungs while in the hospital. See Your Surgical Guide Book for more information. [facility] TEAM At the [facility], we have a multidisciplinary team of caregivers that includes fellows, residents, nurse practitioners, physician assistants, clinical nurse specialists, nurses, medical assistants, patient care nursing assistants, social workers, human services case manager and many others. We all have different roles and responsibilities but we are all here to help. ANTIBIOTIC PLUS MECHANICAL BOWEL PREP Your physician has ordered a bowel preparation prior to surgery. It is important to follow these instructions to ensure adequate preparation for surgery and avoid possible delays or cancellation of your surgery. PURCHASE OVER THE COUNTER (no prescription needed): -One 238 gram bottle of Miralax -Dulcolax (two 5mg oral tablets), a.k.a. bisacodyl -64 oz of Gatorade (or other clear liquid) DIRECTIONS: One (1) Day Before Your Procedure Only drink clear liquids the ENTIRE DAY before your procedure. Do NOT eat any solid foods. Drink at least 8 ounces of clear liquids every hour after waking up. The clear liquids you can drink include: CLEAR LIQUID DIET: Gatorade, Pedialyte, Powerade, or other electrolyte beverage Clear broth or bouillon Coffee or tea (no milk or non-dairy creamer) Carbonated and non-carbonated soft drinks Eduardo-Aid or other fruit flavored drinks Strained fruit juices (no pulp) Jell-O, popsicles Water DO NOT DRINK: Alcohol Milk or non-dairy creamers Noodles or vegetables in soup Juice with pulp Liquid you cannot see through BOWEL PREP INSTRUCTIONS: Day Prior to Procedure: 3:00 PM - Take 2 Dulcolax tablets. 5:00 PM - Mix the whole bottle of Miralax and the Gatorade into a pitcher and stir until dissolved. Drink an 8 ounce glass every 10-15 minutes until the solution is gone. If you experience nausea, slow down the pace of drinking or take a short break, then resume drinking. It is important to continue drinking clear liquids until bedtime. 7:00 PM - Take first dose of metronidazole* 2000mg (four 500mg pills) and neomycin* 2000mg (four 500mg pills) 11:00 PM - Take second dose of metronidazole* 2000mg (four 500mg pills) and neomycin* 2000mg (four 500mg pills) *Metronidazole and neomycin are prescriptions that will be called in to your preferred pharmacy. POSTOP: LAPAROSCOPIC SURGERY WHAT TO EXPECT AT HOME Recovery from surgery is generally 2-6 weeks, but sometimes longer for more strenuous activity. It is normal to be very tired during this time. It is normal to have some drainage or a small amount of vaginal bleeding after surgery which may last up to 6 weeks. You will most likely experience gas pain, abdominal swelling, or shoulder pain for 24-72 hours after surgery. This is from the carbon dioxide gas put into your abdomen to better visualize your organs. A warm shower, heating pad, and/or walking may help. You will have 1-5 small incisions on your abdomen. There will be dissolvable stitches under your skin that do not need to be removed. You will also have surgical glue or steri-strips (paper tape) on the incisions. These may be removed when they start to fall off on their own, or in 7-10 days. ACTIVITY No heavy lifting/pushing/pulling for 4-6 weeks. Do not lift anything more than 10-15 lbs (such as laundry, groceries, children, pets), vacuum, push heavy doors or grocery carts, etc. You may climb stairs as tolerated. Do not put anything in the vagina for 6 weeks after surgery unless otherwise instructed by your doctor (including tampons, douching, sexual intercourse, etc). No driving for about 2-3 weeks after surgery, while you are taking narcotic pain medication, or until you feel that you are ready. Avoid sitting or lying in bed for more than 2 hours at a time while you are awake to reduce your risk of blood clots. Return to work when directed by your surgeon. Please contact your surgeon?s office if any FMLA or other paperwork is needed. WOUND CARE You will have 1-5 small incisions on your abdomen. If you have a dressing (big, white, square band-aid), please remove it 24 hour after your surgery. You may have surgical glue or steri-strips on the incisions and these may be removed once they start to fall off. Shower daily after surgery. Wash your incision with antibacterial soap (such as Dial). Pat your incision dry with a clean towel. No tub baths until wound is completely healed. Wash your hands frequently, especially before touching your incision, changing any dressings, after using the restroom, and before eating. PAIN MANAGEMENT You will be given prescriptions for a variety of pain medications (opioid and non-opioid) before you leave the hospital. Surgery will cause pain and everyone has a different pain tolerance. It is safer to find the right combination and amount of medicine to manage your pain. We recommend that you take the non-opioid medication (acetaminophen and ibuprofen) on a regular schedule after surgery. You can take these medications on an alternating schedule so that you are taking one or the other every 3-4 hours. The maximum total daily dose of acetaminophen is 4,000mg and the maximum total daily dose of ibuprofen is 2,400mg. Take the opioid prescription ONLY when your pain is severe and never take more pills or more frequent doses than prescribed. Opioids (narcotics) can cause serious side effects. The risks increase the longer they are used. Taking opioids may cause: constipation, drowsiness, itching, nausea/vomiting. More serious side effects of opioids may include: addiction or dependence, life threatening overdose, or dizziness leading to falls/injury. Keep your pain medication locked in a safe place. Never share your pain medication with others. If you have any remaining opioid pills after you recover from surgery, please bring them to a medication disposal station (located in many of the [facility] pharmacies). Do not flush them down the toilet. Constipation is a common problem after surgery. You should take a stool softener (i.e. colace) twice a day, especially if you are taking opioids. If a stool softener alone is not helping to manage your constipation, you can also take Miralax and/or milk of magnesia as needed. WHEN TO CALL THE DOCTOR Call your doctor if you have any of the following symptoms: Fever (>100.4?F or 38.0?C) or chills. Incision problems such as redness, warmth, swelling, or foul smelling drainage. Severe nausea or persistent vomiting. Bright red vaginal bleeding (soaking >1 pad/hour) or foul smelling vaginal drainage. Severe pain not relieved with pain medication. Pain and swelling in your legs, especially if it is only on one side and not the other. Pain with urination, cloudy urine, or foul smelling urine. Or if you have any other problems or questions. CALL 911 or go to the ED if you have any shortness of breath, difficulty breathing, or chest pain. 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 Take 2 tablets at 3pm the day before surgeryDisp: 2 tabletRfl: 0 polyethylene glycol 3350 (MIRALAX) 17 gram/dose powderPurchase one 238 gram bottle of Miralax Use as directedDisp: 238 gRfl: 0 metroNIDAZOLE (FLAGYL) 500 mg tabletTake 1 tablet by mouth as directed. Take four tablets (2000mg) at 7pm and four tablets (2000mg) at 11pm the day prior to surgeryDisp: 8 tabletRfl: 0 neomycin 500 mg tabletTake 1 tablet by mouth as directed. Take four tablets (2000mg) at 7pm and four tablets (2000mg) at 11pm the day prior to surgeryDisp: 8 tabletRfl: 0 Prescriptions as of 04/28/2025 - Magnesium 200 mg tab Take by mouth. - Bisacodyl (DULCOLAX) 5 mg tab Take 1 tablet by mouth as directed. Take 2 tablets at 3pm the day before surgery - polyethylene glycol 3350 (MIRALAX) 17 gram/dose powder Purchase one 238 gram bottle of Miralax Use as directed - metroNIDAZOLE (FLAGYL) 500 mg tablet Take 1 tablet by mouth as directed. Take four tablets (2000mg) at 7pm and four tablets (2000mg) at 11pm the day prior to surgery - neomycin 500 mg tablet Take 1 tablet by mouth as directed. Take four tablets (2000mg) at 7pm and four tablets (2000mg) at 11pm the day prior to surgery - calcium carbonate/vitamin D3 (CALCIUM CHEW ORAL) Take by mouth. - triamcinolone acetonide (KENALOG) 0.1 % ointment Apply to affected areas twice daily Wednesday-Wednesday as needed. Avoid face, groin, and armpits - white petrolatum (AQUAPHOR) 41 % topical ointment Apply to affected area as needed. - pantoprazole DR (PROTONIX) 40 mg tablet Take 1 tablet by mouth daily at 6 am. Patient should start on May 11, 2024. - Lactobacillus acidophilus (PROBIOTIC ORAL) Take 1 capsule by mouth once daily. - Cholecalciferol, Vitamin D3, 25 mcg (1,000 unit) cap Take 1,000 Units by mouth once daily. 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] 05/06/2024 Age-related osteoporosis without current pathol*05/06/2024 Lymphadenopathy [R59.1] 05/06/2024 Eosinophilia [D72.10] 05/08/2024 Eczema [L30.9] 05/08/2024 Peripheral eosinophilia [D72.19] 05/09/2024 Uvular edema [K13.79] 01/29/2025 Urticaria [L50.9] 01/29/2025 Post menopausal syndrome [N95.1] 06/25/2023 Pain in joint of right hip [M25.551] 10/01/2024 01/29/2025 Other fatigue [R53.83] 10/01/2024 01/29/2025 Osteoarthritis of right hip [M16.11] 10/01/2024 Non-celiac gluten sensitivity [K90.41] 06/25/2023 History of steroid therapy [Z92.241] 10/01/2024 01/29/2025 Abnormal radiographic examination [R93.89] 01/29/2025 01/29/2025 Varicose veins of bilateral lower extremities w*12/08/2022 Other specified noninflammatory disorders of ut*08/08/2024 Mastodynia [N64.4] 03/29/2022 Fatigue [R53.83] 09/26/2024 01/29/2025 H/O skin disorder [Z87.2] 01/29/2025 01/29/2025 Cyst of right breast [N60.01] 03/29/2022 Edema [R60.9] 01/29/2025 01/29/2025 Asymptomatic menopausal state [Z78.0] 03/24/2022 01/29/2025 Acute pharyngitis, unspecified [J02.9] 01/02/2024 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 [email or web address] PATIENT SURGICAL CHECKLIST - NEXT STEPS - Your surgeon's office will call you to arrange your surgery date and pre-admission testing appointments. - You should receive a call within 2-5 business days from our scheduling team. (If you do not receive a call within 5 days - please call [phone]) - Pre-admission testing appointments include: - Preop anesthesia clearance with [facility] (pre-anesthesia consultation clinic). There are options for in person appointments or virtual appointments based on the recommendations from your surgeon. - Preop exam which can be done at the time of an in person pre-anesthesia appointment or by your surgeon's team depending on the complexity of your medical history. This needs to be done within 30 days of surgery. - Virtual shared preop nurse teaching appointment. - Lab work - Any other testing that the provider orders for prior to surgery if needed - You will receive a call from the billposting supervisor the business day prior to your surgery as to when and where to arrive on the day of your scheduled surgery PRESIDENT + PUBLISHER ONCOLOGY PHYSICIAN CONTACT INFORMATION Surgery Scheduling Office Surgeons: Dr. Karen Johnston Dr. Claudia Segovia Dr. Conner Addison Dr. Mega Hutton Dr. Anna Diaz Dr. Ebonie Gilliland Dr. Christopher Holland Dr. Juan Whalen Dr. Stephen Mas Dr. Javy Robb [facility] Nurse Practitioners: Aliyah Ritchie, STORM SASH MAKER.TIERNEY Hanks, STORM SASH MAKER.TIERNEY Cleveland, STORM SASH MAKER.TIERNEY Rucker, STORM SASH MAKER.TIERNEY Rader, STORM SASH MAKER.MEAT DEPARTMENT MANAGER After 4:30 pm or on holidays or weekends, call: or . Ask the batch mixer operator to page the urogynaecologist oncologist rail operations controller. PRE-OPERATIVE CHECKLIST: PATIENT INSTRUCTIONS PRIOR TO SURGERY Our guidelines have changed, so please read these instructions carefully. Your surgery may be cancelled if you do not follow these instructions. MY ARRIVAL TIME IS: I have been instructed not to have any solid food to eat after midnight prior to my surgery (this includes no gum, mints, smoking). I am allowed to drink small amounts (up to 12 oz) of clear liquids up until 2 hours prior to my arrival time. Clear liquids include water, fruit juices without pulp, carbonated beverages (i.e. ladan leanna), electrolyte beverages (i.e. Gatorade), clear tea and black coffee, clear broth, popsicles and jello. (No milk). No alcohol the day before or day of surgery. I will bring this binder to all pre and post-operative appointments AND day of surgery. MEDICATION STOPPAGE: Unless my surgeon tells me differently, I will STOP THESE MEDICATIONS 7 DAYS PRIOR TO SURGERY: (Motrin/ibuprofen/Naproxen/Aleve/Advil), Aspirin, vitamin E, herbal medications, diet pills, and zopp-ply-qlmblft medications. Tylenol (acetaminophen) is okay. I will not wear jewelry, body piercing(s), makeup, nail prydeinig, hairpins, or contacts on the day of surgery. I am to leave valuables and money at home or with family members. If I am prescribed inhalers for breathing, I will use them and bring them to the hospital. Medication(s) to be taken on the morning of surgery with a few sips of water: If I am taking any of the following blood thinning medications - Aspirin, clopidogrel (Plavix), ticagrelor (Brilinta), prasugrel (Efficient), ticlodipine (Ticlid), warfarin (Coumadin), dibigatran (Pradaxa) or rivaroxaban (Xarelto) - I will discuss whether or not I should stop them before surgery with my surgeon. Discuss medication changes with your machinery erector or primary care physician as well. If I stopped taking my blood-thinning medication, I will ask the surgeon when to resume taking it. If I am an outpatient, a responsible person will drive me home and it was suggested that someone stay with me for 24 hours. I understand that a territory business manager or cabdriver is NOT a responsible caregiver. Patients with diabetes, I will not take my morning diabetes medication (pills) on the morning of surgery. If I am on insulin, someone has gone over those instructions with me for the morning of surgery. I understand if my surgery is delayed, I will notify the check in desk that I have diabetes. See the ?Diabetic Guidelines Before Surgery? in the patient education section. If I have Obstructive Sleep Apnea and use a CPAP/BiPAP machine, I will bring my mask, tubing, and machine with me on the day of surgery. Pain management education material found in Your Surgical Guide was reviewed with me. To find out my arrival time for surgery, I must call my surgical nurse practitioner after 2pm the day before surgery. Pre-operative instructions given by: PREOP INSTRUCTIONS THE DAY OF SURGERY/CHECK IN Report to DESK - for surgery. A map is located in Your Surgical Guide Book. The online version of the surgical guide book can be found at: [email or web address] The address is [address] [place] [address]/[place] [address] INFECTION PREVENTION Please notify your doctor if you have any signs of an infection (i.e. fever, severe cough, nasal congestion, pain with urination, abnormal vaginal discharge, diarrhea, etc). Your surgeon will let you know if a bowel prep is needed before your surgery. If so, please see the attached instructions. Shower the night before surgery AND the morning of surgery with Hibiclens (provided by your surgeon). If you are allergic to Hibiclens or unable to obtain the Hibiclens, please wash with antibacterial soap. Wash your body from the neck down, focusing on your abdomen, belly button and external genitalia. Do not forget to scrub any skin folds and creases. No lotions, oils, creams, or powders after your shower. Underarm deodorant is okay. No shaving (abdominal or pubic hair) or douching the day before surgery. You may be asked to apply an antiseptic solution called Chlorhexidine Gluconate (CHG) which will be provided to you on arrival to the preop area. Hand washing is extremely important in preventing infection (for both you as the patient and for the caregivers). HOSPITALIZATION Before you leave the hospital, you typically need to be able to eat/drink, urinate, and have your pain controlled with oral medication. Your surgeon or other members of your surgeon?s team will discuss any other specific medical issues related to your discharge with you. Your surgeon may order intermittent compression sleeves. These are ?massaging leg pumps? to help prevent blood clots after surgery. See Your Surgical Guide Book for more information. It is also very important that you walk as soon as possible and as frequently as possible after surgery. This will help decrease your risk of blood clots, exercise your lungs and speed up your recovery after surgery. If you are admitted to the hospital overnight, you will be given an incentive spirometer, which is a breathing machine that will help make sure that you are taking deep breaths and expanding your lungs while in the hospital. See Your Surgical Guide Book for more information. [facility] TEAM At the [facility], we have a multidisciplinary team of caregivers that includes fellows, residents, nurse practitioners, physician assistants, clinical nurse specialists, nurses, medical assistants, patient care nursing assistants, social workers, human services case manager and many others. We all have different roles and responsibilities but we are all here to help. ANTIBIOTIC PLUS MECHANICAL BOWEL PREP Your physician has ordered a bowel preparation prior to surgery. It is important to follow these instructions to ensure adequate preparation for surgery and avoid possible delays or cancellation of your surgery. PURCHASE OVER THE COUNTER (no prescription needed): -One 238 gram bottle of Miralax -Dulcolax (two 5mg oral tablets), a.k.a. bisacodyl -64 oz of Gatorade (or other clear liquid) DIRECTIONS: One (1) Day Before Your Procedure Only drink clear liquids the ENTIRE DAY before your procedure. Do NOT eat any solid foods. Drink at least 8 ounces of clear liquids every hour after waking up. The clear liquids you can drink include: CLEAR LIQUID DIET: Gatorade, Pedialyte, Powerade, or other electrolyte beverage Clear broth or bouillon Coffee or tea (no milk or non-dairy creamer) Carbonated and non-carbonated soft drinks Eduardo-Aid or other fruit flavored drinks Strained fruit juices (no pulp) Jell-O, popsicles Water DO NOT DRINK: Alcohol Milk or non-dairy creamers Noodles or vegetables in soup Juice with pulp Liquid you cannot see through BOWEL PREP INSTRUCTIONS: Day Prior to Procedure: 3:00 PM - Take 2 Dulcolax tablets. 5:00 PM - Mix the whole bottle of Miralax and the Gatorade into a pitcher and stir until dissolved. Drink an 8 ounce glass every 10-15 minutes until the solution is gone. If you experience nausea, slow down the pace of drinking or take a short break, then resume drinking. It is important to continue drinking clear liquids until bedtime. 7:00 PM - Take first dose of metronidazole* 2000mg (four 500mg pills) and neomycin* 2000mg (four 500mg pills) 11:00 PM - Take second dose of metronidazole* 2000mg (four 500mg pills) and neomycin* 2000mg (four 500mg pills) *Metronidazole and neomycin are prescriptions that will be called in to your preferred pharmacy. POSTOP: LAPAROSCOPIC SURGERY WHAT TO EXPECT AT HOME Recovery from surgery is generally 2-6 weeks, but sometimes longer for more strenuous activity. It is normal to be very tired during this time. It is normal to have some drainage or a small amount of vaginal bleeding after surgery which may last up to 6 weeks. You will most likely experience gas pain, abdominal swelling, or shoulder pain for 24-72 hours after surgery. This is from the carbon dioxide gas put into your abdomen to better visualize your organs. A warm shower, heating pad, and/or walking may help. You will have 1-5 small incisions on your abdomen. There will be dissolvable stitches under your skin that do not need to be removed. You will also have surgical glue or steri-strips (paper tape) on the incisions. These may be removed when they start to fall off on their own, or in 7-10 days. ACTIVITY No heavy lifting/pushing/pulling for 4-6 weeks. Do not lift anything more than 10-15 lbs (such as laundry, groceries, children, pets), vacuum, push heavy doors or grocery carts, etc. You may climb stairs as tolerated. Do not put anything in the vagina for 6 weeks after surgery unless otherwise instructed by your doctor (including tampons, douching, sexual intercourse, etc). No driving for about 2-3 weeks after surgery, while you are taking narcotic pain medication, or until you feel that you are ready. Avoid sitting or lying in bed for more than 2 hours at a time while you are awake to reduce your risk of blood clots. Return to work when directed by your surgeon. Please contact your surgeon?s office if any FMLA or other paperwork is needed. WOUND CARE You will have 1-5 small incisions on your abdomen. If you have a dressing (big, white, square band-aid), please remove it 24 hour after your surgery. You may have surgical glue or steri-strips on the incisions and these may be removed once they start to fall off. Shower daily after surgery. Wash your incision with antibacterial soap (such as Dial). Pat your incision dry with a clean towel. No tub baths until wound is completely healed. Wash your hands frequently, especially before touching your incision, changing any dressings, after using the restroom, and before eating. PAIN MANAGEMENT You will be given prescriptions for a variety of pain medications (opioid and non-opioid) before you leave the hospital. Surgery will cause pain and everyone has a different pain tolerance. It is safer to find the right combination and amount of medicine to manage your pain. We recommend that you take the non-opioid medication (acetaminophen and ibuprofen) on a regular schedule after surgery. You can take these medications on an alternating schedule so that you are taking one or the other every 3-4 hours. The maximum total daily dose of acetaminophen is 4,000mg and the maximum total daily dose of ibuprofen is 2,400mg. Take the opioid prescription ONLY when your pain is severe and never take more pills or more frequent doses than prescribed. Opioids (narcotics) can cause serious side effects. The risks increase the longer they are used. Taking opioids may cause: constipation, drowsiness, itching, nausea/vomiting. More serious side effects of opioids may include: addiction or dependence, life threatening overdose, or dizziness leading to falls/injury. Keep your pain medication locked in a safe place. Never share your pain medication with others. If you have any remaining opioid pills after you recover from surgery, please bring them to a medication disposal station (located in many of the [facility] pharmacies). Do not flush them down the toilet. Constipation is a common problem after surgery. You should take a stool softener (i.e. colace) twice a day, especially if you are taking opioids. If a stool softener alone is not helping to manage your constipation, you can also take Miralax and/or milk of magnesia as needed. WHEN TO CALL THE DOCTOR Call your doctor if you have any of the following symptoms: Fever (>100.4?F or 38.0?C) or chills. Incision problems such as redness, warmth, swelling, or foul smelling drainage. Severe nausea or persistent vomiting. Bright red vaginal bleeding (soaking >1 pad/hour) or foul smelling vaginal drainage. Severe pain not relieved with pain medication. Pain and swelling in your legs, especially if it is only on one side and not the other. Pain with urination, cloudy urine, or foul smelling urine. Or if you have any other problems or questions. CALL 911 or go to the ED if you have any shortness of breath, difficulty breathing, or chest pain. Encounter Status:Closed by JUAN WHALEN on 04/28/25 PET TUMOR SUBQ TX STRAT SB-MT Observed: 04/18/2025 10:35 AM Status: COMPLETED Source: [facility] [place] [address] Nuclear Medicine Report Signed Patient: Mirian Corrales MR#: [id number] : 1955 Acct:[id number] Age/Sex: 69 / F ADM Date: 04/18/25 Loc: Room: Type: [facility] RCR Attending Dr: Lisandro Vines II DO Copies to: Patrick Leiva II, MD Timothy J Adamowicz, II, DO Ordering Provider: Lisandro Vines II, DO Date of Service: 04/18/25 PET/PET tumor subq tx strat sb-mt: C56.9 - Malignant neoplasm of unspecified ovary PET tumor subq tx strat sb-mt 04/18/2025 9:54 AM SIGNS AND SYMPTOMS: C56.9 - Malignant neoplasm of unspecified ovary, axillary lymphadenopathy, follow-up PROTOCOL: PET images were obtained from skull base to mid thigh after intravenous radiotracer administration. Low-dose CT was performed from skull base to mid thigh. After attenuation correction of PET images, fused PET CT images were generated and reconstructed in axial, sagittal, and coronal planes. COMPARISON: 01/29/2025 RADIOPHARMACEUTICAL: 12.89 mCi of intravenous fluorine 18 FDG. Blood glucose: 96 mg/dL FINDINGS: Subtle asymmetric radiotracer accumulation is noted in the right oropharyngeal mucosa along the right glossotonsillar sulcus with a maximum SUV of 3.2. This is nonspecific but persists when compared to the prior exam. Malignancy is not excluded. Direct visualization is recommended. There is significant interval improvement in mediastinal and right hilar lymphadenopathy when compared to the prior exam with the largest lymph node now measuring 1 cm in short axis anterior to the right mainstem bronchus. There is a maximum SUV of 2.2. There is an 11 mm soft tissue attenuating structure in the right lower lobe posteriorly and laterally with a maximum SUV of 2.2. This is new when compared to the prior exam and is suspicious for a metastatic focus. There is a 4 mm subtly FDG avid nodule within the right middle lobe appears to be new. There is a maximum SUV of 0.6. There are prominent axillary lymph nodes which are significantly less FDG avid and smaller in size when compared to the prior exam. The largest measures 1 cm in short axis with a maximum SUV of 1.6. Mildly prominent and subtly FDG avid left axillary lymph nodes are redemonstrated showing no significant interval change. There is significant interval improvement in epicardial FDG avid lymphadenopathy since the prior exam. There has been near complete resolution of retroperitoneal lymphadenopathy with no significant FDG avid retroperitoneal lymph nodes visualized. There is significant interval improvement in FDG avid lymphadenopathy within the iliac chains bilaterally. The largest residual iliac chain lymph node is noted on the right measuring 8 mm in greatest dimension with a maximum SUV of 2.3. There is physiologic radiotracer attenuation in the brain, salivary glands, myocardium, liver, spleen, kidneys, ureters, bladder, and bowel. There is right-sided hydronephrosis similar to the prior exam presumably secondary to extrinsic compression of the ureter distally. PET/PET tumor subq tx strat sb-mt IMPRESSION: Significant interval treatment response involving previously significantly FDG avid cervical, axillary, mediastinal, epicardial, or right hilar, and retroperitoneal lymphadenopathy. There are a few residual mildly prominent but less FDG avid lymph nodes noted within the mediastinum, axilla, and right iliac chain. There is an 11 mm soft tissue attenuating structure in the right lower lobe posteriorly and laterally with a maximum SUV of 2.2. This is new when compared to the prior exam and is suspicious for a metastatic focus. There is a 4 mm subtly FDG avid nodule within the right middle lobe appears to be new. There is a maximum SUV of 0.6. Subtle asymmetric radiotracer accumulation is noted in the right oropharyngeal mucosa along the right glossotonsillar sulcus with a maximum SUV of 3.2. This is nonspecific but persists when compared to the prior exam. Malignancy is not excluded. Direct visualization is recommended. Impression dictated by: Patrick Leiva M.D. 04/18/2025 10:47 AM Dictation Location: [facility] Transcribed By: [facility] 04/18/25 1047 Dictated By: Patrick Leiva II, MD 04/18/25 1035 Signed By: <Electronically signed by Patrick Leiva II, MD in OV> 04/18/25 1047 GLUCOSE POCT GLUCOMETERS Collected: 04/18/2025 8:11 A M Status: F Source: [facility] TYPE CODE TESTS RESULT OUT OF RANGE REFERENCE UNITS LAB GLUPOC Glucose Poc Glucometers 96 mg/dL Result Comment: Random Gluco se Reference Range is dependent on time and content of last meal. Glucose of more than 200 mg/dL in a nonstressed, ambulatory subject supports the diagnosis of Diabetes Mellitus. PERFORMED BY: [facility] [address] [address] PATHOLOGIST EDDY CURRENT INSPECTOR MARISEL MANRIQUE M.D. Performed By: #### GLULS ### # Point of Care testing , COMPLETE BLOOD COUNT AUTO DIFF Collected: 04/18/2025 8:10 AM Status: F Source: [facility] TYPE CODE TESTS RESULT OUT OF RANGE REFERENCE UNITS LAB WBC White Blood Count 3.1 Low 3.8-11.6 [CFU]/mL LAB UNWBC Uncorrected WBC 3.1 Low 3.8-11.6 10*3/uL LAB RBC Red Blood Count 2.98 Low 3.60-5.00 10*6/u L LAB HGB Hemoglobin 8.9 Low 11.8-15.4 g/dL LAB HCT Hematocrit 26.9 Low 34.0-46.4 % LAB MCV Mean Corpuscular Volume 90.3 Normal 80-100 fL LAB MCH Mean Corpuscular Hemoglobin 29.9 Normal 24.7-34.3 pg LAB MCHC Mean Corpuscular HGB Conc 33.0 Normal 32.0-35.0 g/dL LAB RDW Red Cell Distribution Width 22.5 High 11.9-15.3 % LAB PLT Platelet Count 146 Low 150-450 10*3/uL LAB MPV Mean Platelet Volume 7.9 Normal 6.3-10.7 fL LAB NE% Neutrophils % (Auto) 55.0 . % LAB LY% Lymphocytes % (Auto) 23.4 . % LAB MO% Monocytes % (Auto) 15.9 . % LAB EO% Eosinophils % (Auto) 4.9 . % LAB BA% Basophils % (Auto) 0.8 . % LAB NRBC% NRBC% 0.2 Normal 0-0.5 /100{WBC} LAB NE# Neutrophils # (Auto) 1.7 Low 1.8-7.7 10*3/uL LAB LY# Lymphocytes # (Auto) 0.7 Low 1.00-4.8 10*3/uL LAB MO# Monocytes # (Auto) 0.5 Normal 0.0-0.8 10*3/uL LAB EO# Eosinophils # (Auto) 0.1 Normal 0.0-0.45 10*3/uL LAB BA# Basophils # (Auto) 0.0 Normal 0.0-0.2 10*3/uL Result Comment: PERFORMED BY : [place] [address] PATHOLOGIST EDDY CURRENT INSPECTOR MARISEL MANRIQUE M.D. Performed By: #### CMP, CBC #### [address] COMPREHENSIVE METABOLIC PANEL Collected: 04/18/2025 8 :10 AM Status: F Source: [facility] TYPE CODE TESTS RESULT OUT OF RANGE REFERENCE UNITS LAB GLU Glucose 83 Normal 70-100 mg/dL Result Comment: Random Gluco se Reference Range is dependent on time and content of last meal. Glucose of more than 200 mg/dL in a nonstressed, ambulatory subject supports the diagnosis of Diabetes Mellitus. ADA recommended reference range LAB BUN Blood Urea Nitrogen 14 Normal 7-25 mg/d L LAB CREATT Creatinine 0.79 Normal 0.60-1.20 mg/dL LAB GFReNR Estimated GFR >60.0 LAB NA Sodium 140 Normal 136-145 mmol/L LAB K Potassium 4.0 Normal 3.5-5.1 mmol/L LAB CL Chloride 107 Normal 98-107 mmol/L LAB CO2 Carbon Dioxide 30.4 Normal 21.0-31.0 mmol/L LAB GAP Anion Gap 6.6 Normal 6.0-15.0 LAB CA Calcium 8.8 Normal 8.6-10.3 mg/dL LAB TP Total Protein 6.6 Normal 6.4-8.9 g/dL LAB ALB Albumin Level 3.8 Normal 3.5-5.7 g/dL LAB GLOB Globulin 2.8 g/dL LAB AGRATIO Albumin/Globulin Ratio 1.4 LAB BILIT Bilirubin,Total 0.3 Normal 0.3-1.0 mg/dL LAB AST Aspartate Amino Transferase 17 Normal 13-39 U/L LAB ALT Alanine Aminotransferase 11 Normal 7-52 U/L LAB ALP Alkaline Phosphatase 51 Normal 34-104 U/L LAB CRCLPHA Creatinine Clr [facility] Pharm[facility] 52.37 Result Comment: PERFORMED BY : [place] [address] PATHOLOGIST EDDY CURRENT INSPECTOR MARISEL MANRIQUE M.D. Performed By: #### CMP, CBC #### [address] CANCER ANTIGEN 125 Collected: 8:10 AM Status: F Source: [facility] TYPE CODE TESTS RESULT OUT OF RANGE REFERENCE UNITS LAB CA125 Cancer Antigen 125 33.0 0.0-38.1 Result Comment: [employer] Electrochemiluminescence Immunoassay (ECLIA) Values obtained with different assay methods or kits cannot be used interchangeably. Results cannot be interpreted as absolute evidence of the presence or absence of malignant disease. Performed at: [facility] [employer] [id number] Architecture Technician: Lj Solano PhD, Phone: [phone] PERFORMED BY: [place] [address] PATHOLOGIST EDDY CURRENT INSPECTOR MARISEL MANRIQUE M.D. Performed By: #### CA125 ### # [facility] , CNNURSE Observed: 04/17/2025 3:20 PM Status: COMPLETED Source: [facility] Nurse Visit (DERMAV) MIRIAN CORRALES ([id number]) 1955 F Date Time Provider Department 04/17/25 3:20 PM NURSE DERM [facility] MORENO CORTES During your visit today, we recorded the following information about you: Kierra Harris RN 04/17/2025 3:21 PM Signed Pt is identified by name and birthdate: Yes Allergies reviewed: Yes Medication - prescribed and OTC reviewed and updated: Yes Latex allergy: no. Is the patient having any pain? No 0 on a scale of 0 to 10 See flow sheet for treatment record. Kierra Harris RN April 17, 2025 3:18 PM Allergies As of Date: 04/17/2025 Noted Allergy Reaction DIPHENYLGUANIDINE 11/17/2024 2 - Rash IODOPROPYNYL BUTYLCARBAMATE 11/17/2024 2 - Rash WHEAT 08/24/2019 7 - Swelling DAIRY AID (LACTASE) 08/24/2019 7 - Swelling Comments: Bloating Date Reviewed: 04/17/2025 Reviewed by: Kierra Harris RN - Fully Assessed Reason for Visit: Light Treatments [1093] Primary Visit Diagnosis:Eczema, unspecified type [L30.9] Prescriptions as of 04/17/2025 - calcium carbonate/vitamin D3 (CALCIUM CHEW ORAL) Take by mouth. - triamcinolone acetonide (KENALOG) 0.1 % ointment Apply to affected areas twice daily Wednesday-Wednesday as needed. Avoid face, groin, and armpits - white petrolatum (AQUAPHOR) 41 % topical ointment Apply to affected area as needed. - pantoprazole DR (PROTONIX) 40 mg tablet Take 1 tablet by mouth daily at 6 am. Patient should start on May 11, 2024. - Lactobacillus acidophilus (PROBIOTIC ORAL) Take 1 capsule by mouth once daily. - Cholecalciferol, Vitamin D3, 25 mcg (1,000 unit) cap Take 1,000 Units by mouth once daily. 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] 06/25/2023 History of steroid therapy [Z92.241] 10/01/2024 01/29/2025 Abnormal radiographic examination [R93.89] 01/29/2025 01/29/2025 Varicose veins of bilateral lower extremities w*12/08/2022 Other specified noninflammatory disorders of ut*08/08/2024 Mastodynia [N64.4] 03/29/2022 Fatigue [R53.83] 09/26/2024 01/29/2025 H/O skin disorder [Z87.2] 01/29/2025 01/29/2025 Cyst of right breast [N60.01] 03/29/2022 Edema [R60.9] 01/29/2025 01/29/2025 Asymptomatic menopausal state [Z78.0] 03/24/2022 01/29/2025 Acute pharyngitis, unspecified [J02.9] 01/02/2024 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 Author Type: Registered Nurse Type: Progress Notes Filed: 04/17/2025 15:21 Note Text: Pt is identified by name and birthdate: Yes Allergies reviewed: Yes Medication - prescribed and OTC reviewed and updated: Yes Latex allergy: no. Is the patient having any pain? No 0 on a scale of 0 to 10 See flow sheet for treatment record. Kierra Harris RN April 17, 2025 3:18 PM PROGRESS Observed: 04/06/2025 4:03 PM Status: COMPLETED Source: [facility] HNO ID: [id number] Author: SONAM FREITAS RN Service: ? Author Type: Registered Nurse Type: Progress Notes Filed: 04/06/2025 16:04 Note Text: Pt is identified by name and birthdate: Yes Allergies reviewed: Yes Medication - prescribed and OTC reviewed and updated: Yes Latex allergy: no. Is the patient having any pain? No 0 on a scale of 0 to 10 See flow sheet for treatment record. Sonam Freitas RN April 06, 2025 4:04 PM CNNURSE Observed: 04/06/2025 4:00 PM Status: COMPLETED Source: [facility] Nurse Visit (DERMAV) MIRIAN CORRALES ([id number]) 1955 F Date Time Provider Department 04/06/25 4:00 PM NURSE KAYODE [facility] MORENO CORTES During your visit today, we recorded the following information about you: Sonam Freitas RN 04/06/2025 4:04 PM Signed Pt is identified by name and birthdate: Yes Allergies reviewed: Yes Medication - prescribed and OTC reviewed and updated: Yes Latex allergy: no. Is the patient having any pain? No 0 on a scale of 0 to 10 See flow sheet for treatment record. Sonam Freitas RN April 06, 2025 4:04 PM Allergies As of Date: 04/06/2025 Noted Allergy Reaction DIPHENYLGUANIDINE 11/17/2024 2 - Rash IODOPROPYNYL BUTYLCARBAMATE 11/17/2024 2 - Rash WHEAT 08/24/2019 7 - Swelling DAIRY AID (LACTASE) 08/24/2019 7 - Swelling Comments: Bloating Date Reviewed: 04/06/2025 Reviewed by: Sonam Freitas RN - Fully Assessed Reason for Visit: Light Treatments [1093] Primary Visit Diagnosis:Eczema, unspecified type [L30.9] Prescriptions as of 04/06/2025 - calcium carbonate/vitamin D3 (CALCIUM CHEW ORAL) Take by mouth. - triamcinolone acetonide (KENALOG) 0.1 % ointment Apply to affected areas twice daily Wednesday-Wednesday as needed. Avoid face, groin, and armpits - white petrolatum (AQUAPHOR) 41 % topical ointment Apply to affected area as needed. - pantoprazole DR (PROTONIX) 40 mg tablet Take 1 tablet by mouth daily at 6 am. Patient should start on May 11, 2024. - Lactobacillus acidophilus (PROBIOTIC ORAL) Take 1 capsule by mouth once daily. - Cholecalciferol, Vitamin D3, 25 mcg (1,000 unit) cap Take 1,000 Units by mouth once daily. 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] 05/06/2024 Age-related osteoporosis without current pathol*05/06/2024 Lymphadenopathy [R59.1] 05/06/2024 Eosinophilia [D72.10] 05/08/2024 Eczema [L30.9] 05/08/2024 Peripheral eosinophilia [D72.19] 05/09/2024 Uvular edema [K13.79] 01/29/2025 Urticaria [L50.9] 01/29/2025 Post menopausal syndrome [N95.1] 06/25/2023 Pain in joint of right hip [M25.551] 10/01/2024 01/29/2025 Other fatigue [R53.83] 10/01/2024 01/29/2025 Osteoarthritis of right hip [M16.11] 10/01/2024 Non-celiac gluten sensitivity [K90.41] 06/25/2023 History of steroid therapy [Z92.241] 10/01/2024 01/29/2025 Abnormal radiographic examination [R93.89] 01/29/2025 01/29/2025 Varicose veins of bilateral lower extremities w*12/08/2022 Other specified noninflammatory disorders of ut*08/08/2024 Mastodynia [N64.4] 03/29/2022 Fatigue [R53.83] 09/26/2024 01/29/2025 H/O skin disorder [Z87.2] 01/29/2025 01/29/2025 Cyst of right breast [N60.01] 03/29/2022 Edema [R60.9] 01/29/2025 01/29/2025 Asymptomatic menopausal state [Z78.0] 03/24/2022 01/29/2025 Acute pharyngitis, unspecified [J02.9] 01/02/2024 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 Questionnaire: DERMATOLOGY PHOTOTHERAPY TX DX -> eczema ORDERING PHYSICIAN -> Cmt: Jacob TX TYPE -> NARROW BAND UVB (MJ/CM2) TX FREQ -> 3X/WK INITIAL DOSE -> 300 MAX DOSE -> 3000 INCREASE BY -> 50 TX# -> 68 DOSE -> 375 DOSE ADJ -> no change COMMENTS: -> pt tolerated without issue Encounter Status:Closed by SONAM FREITAS on 04/06/25 COMPLETE BLOOD COUNT AUTO DIFF Collected: 03/29/2025 2:02 PM Status: F Source: [facility] TYPE CODE TESTS RESULT OUT OF RANGE REFERENCE UNITS LAB WBC White Blood Count 4.7 Normal 3.8-11.6 [CFU]/mL LAB UNWBC Uncorrected WBC 4.7 Normal 3.8-11.6 10*3/uL LAB RBC Red Blood Count 3.53 Low 3.60-5.00 10*6/u L LAB HGB Hemoglobin 10.3 Low 11.8-15.4 g/dL LAB HCT Hematocrit 31.1 Low 34.0-46.4 % LAB MCV Mean Corpuscular Volume 87.9 Normal 80-100 fL LAB MCH Mean Corpuscular Hemoglobin 29.0 Normal 24.7-34.3 pg LAB MCHC Mean Corpuscular HGB Conc 33.0 Normal 32.0-35.0 g/dL LAB RDW Red Cell Distribution Width 17.8 High 11.9-15.3 % LAB PLT Platelet Count 118 Low 150-450 10*3/uL LAB MPV Mean Platelet Volume 8.3 Normal 6.3-10.7 fL LAB NE% Neutrophils % (Auto) 66.5 . % LAB LY% Lymphocytes % (Auto) 17.9 . % LAB MO% Monocytes % (Auto) 11.2 . % LAB EO% Eosinophils % (Auto) 3.5 . % LAB BA% Basophils % (Auto) 0.9 . % LAB NRBC% NRBC% 0.0 Normal 0-0.5 /100{WBC} LAB NE# Neutrophils # (Auto) 3.1 Normal 1.8-7.7 10*3/uL LAB LY# Lymphocytes # (Auto) 0.8 Low 1.00-4.8 10*3/uL LAB MO# Monocytes # (Auto) 0.5 Normal 0.0-0.8 10*3/uL LAB EO# Eosinophils # (Auto) 0.2 Normal 0.0-0.45 10*3/uL LAB BA# Basophils # (Auto) 0.0 Normal 0.0-0.2 10*3/uL Result Comment: PERFORMED BY : [facility] [place] [address] PATHOLOGIST EDDY CURRENT INSPECTOR MARISEL MANRIQUE M.D. Performed By: #### CBC, CMP #### [address] [address] [facility] COMPREHENSIVE METABOLIC PANEL Collected: 03/29/2025 2 :02 PM Status: F Source: [facility] TYPE CODE TESTS RESULT OUT OF RANGE REFERENCE UNITS LAB GLU Glucose 91 Normal 70-100 mg/dL Result Comment: Random Gluco se Reference Range is dependent on time and content of last meal. Glucose of more than 200 mg/dL in a nonstressed, ambulatory subject supports the diagnosis of Diabetes Mellitus. ADA recommended reference range LAB BUN Blood Urea Nitrogen 16 Normal 7-25 mg/d L LAB CREATT Creatinine 0.80 Normal 0.60-1.20 mg/dL LAB GFReNR Estimated GFR >60.0 LAB NA Sodium 139 Normal 136-145 mmol/L LAB K Potassium 4.4 Normal 3.5-5.1 mmol/L LAB CL Chloride 106 Normal 98-107 mmol/L LAB CO2 Carbon Dioxide 29.5 Normal 21.0-31.0 mmol/L LAB GAP Anion Gap 7.9 Normal 6.0-15.0 LAB CA Calcium 9.2 Normal 8.6-10.3 mg/dL LAB TP Total Protein 7.4 Normal 6.4-8.9 g/dL LAB ALB Albumin Level 4.0 Normal 3.5-5.7 g/dL LAB GLOB Globulin 3.4 g/dL LAB AGRATIO Albumin/Globulin Ratio 1.2 LAB BILIT Bilirubin,Total 0.4 Normal 0.3-1.0 mg/dL LAB AST Aspartate Amino Transferase 17 Normal 13-39 U/L LAB ALT Alanine Aminotransferase 9 Normal 7-52 U/L LAB ALP Alkaline Phosphatase 67 Normal 34-104 U/L LAB CRCLPHA Creatinine Clr [facility] Pharm[facility] 53.66 Result Comment: PERFORMED BY : [address] [address] PATHOLOGIST EDDY CURRENT INSPECTOR MARISEL MANRIQUE M.D. Performed By: #### CBC, CMP #### [address] [address] [facility] CANCER ANTIGEN 125 Collected: 2:02 PM Status: F Source: [facility] TYPE CODE TESTS RESULT OUT OF RANGE REFERENCE UNITS LAB CA125 Cancer Antigen 125 61.0 0.0-38.1 Result Comment: [employer] Electrochemiluminescence Immunoassay (ECLIA) Values obtained with different assay methods or kits cannot be used interchangeably. Results cannot be interpreted as absolute evidence of the presence or absence of malignant disease. Performed at: [address] [id number] Architecture Technician: Lj Solano PhD, Phone: [phone] PERFORMED BY: [place] [address] [place] [address] PATHOLOGIST EDDY CURRENT INSPECTOR MARISEL MANRIQUE M.D. Performed By: #### CA125 ### # [facility] , CNNURSE Observed: 03/27/2025 3:00 PM Status: COMPLETED Source: [facility] Nurse Visit (DERMAV) MIRIAN CORRALES ([id number]) 1955 F Date Time Provider Department 03/27/25 3:00 PM NURSE DERM [facility] REJ DERMAV During your visit today, we recorded the following information about you: Sonam Freitas RN 03/27/2025 2:58 PM Signed Pt is identified by name and birthdate: Yes Allergies reviewed: Yes Medication - prescribed and OTC reviewed and updated: Yes Latex allergy: no. Is the patient having any pain? No 0 on a scale of 0 to 10 See flow sheet for treatment record. Sonam Freitas RN March 27, 2025 2:57 PM Allergies As of Date: 03/27/2025 Noted Allergy Reaction DIPHENYLGUANIDINE 11/17/2024 2 - Rash IODOPROPYNYL BUTYLCARBAMATE 11/17/2024 2 - Rash WHEAT 08/24/2019 7 - Swelling DAIRY AID (LACTASE) 08/24/2019 7 - Swelling Comments: Bloating Date Reviewed: 03/27/2025 Reviewed by: Sonam Freitas RN - Fully Assessed Reason for Visit: Light Treatments [1093] Primary Visit Diagnosis:Eczema, unspecified type [L30.9] Prescriptions as of 03/27/2025 - calcium carbonate/vitamin D3 (CALCIUM CHEW ORAL) Take by mouth. - triamcinolone acetonide (KENALOG) 0.1 % ointment Apply to affected areas twice daily Wednesday-Wednesday as needed. Avoid face, groin, and armpits - white petrolatum (AQUAPHOR) 41 % topical ointment Apply to affected area as needed. - pantoprazole DR (PROTONIX) 40 mg tablet Take 1 tablet by mouth daily at 6 am. Patient should start on May 11, 2024. - Lactobacillus acidophilus (PROBIOTIC ORAL) Take 1 capsule by mouth once daily. - Cholecalciferol, Vitamin D3, 25 mcg (1,000 unit) cap Take 1,000 Units by mouth once daily. 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] 05/06/2024 Age-related osteoporosis without current pathol*05/06/2024 Lymphadenopathy [R59.1] 05/06/2024 Eosinophilia [D72.10] 05/08/2024 Eczema [L30.9] 05/08/2024 Peripheral eosinophilia [D72.19] 05/09/2024 Uvular edema [K13.79] 01/29/2025 Urticaria [L50.9] 01/29/2025 Post menopausal syndrome [N95.1] 06/25/2023 Pain in joint of right hip [M25.551] 10/01/2024 01/29/2025 Other fatigue [R53.83] 10/01/2024 01/29/2025 Osteoarthritis of right hip [M16.11] 10/01/2024 Non-celiac gluten sensitivity [K90.41] 06/25/2023 History of steroid therapy [Z92.241] 10/01/2024 01/29/2025 Abnormal radiographic examination [R93.89] 01/29/2025 01/29/2025 Varicose veins of bilateral lower extremities w*12/08/2022 Other specified noninflammatory disorders of ut*08/08/2024 Mastodynia [N64.4] 03/29/2022 Fatigue [R53.83] 09/26/2024 01/29/2025 H/O skin disorder [Z87.2] 01/29/2025 01/29/2025 Cyst of right breast [N60.01] 03/29/2022 Edema [R60.9] 01/29/2025 01/29/2025 Asymptomatic menopausal state [Z78.0] 03/24/2022 01/29/2025 Acute pharyngitis, unspecified [J02.9] 01/02/2024 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 Author Type: Registered Nurse Type: Progress Notes Filed: 03/27/2025 14:58 Note Text: Pt is identified by name and birthdate: Yes Allergies reviewed: Yes Medication - prescribed and OTC reviewed and updated: Yes Latex allergy: no. Is the patient having any pain? No 0 on a scale of 0 to 10 See flow sheet for treatment record. Sonam Freitas RN March 27, 2025 2:57 PM PROGRESS Observed: 03/20/2025 3:11 PM Status: COMPLETED Source: [facility] HNO ID: [id number] Author: KIERRA WILLIS RN Service: ? Author Type: Registered Nurse Type: Progress Notes Filed: 03/20/2025 15:13 Note Text: Pt is identified by name and birthdate: Yes Allergies reviewed: Yes Medication - prescribed and OTC reviewed and updated: Yes Latex allergy: no. Is the patient having any pain? No 0 on a scale of 0 to 10 See flow sheet for treatment record. Kierra Willis RN March 20, 2025 3:12 PM CNNURSE Observed: 03/20/2025 3:00 PM Status: COMPLETED Source: [facility] Nurse Visit (DERMAV) MIRIAN CORRALES ([id number]) 1955 F Date Time Provider Department 03/20/25 3:00 PM NURSE DERM [facility] REJ DERMAV During your visit today, we recorded the following information about you: Kierra Willis RN 03/20/2025 3:13 PM Signed Pt is identified by name and birthdate: Yes Allergies reviewed: Yes Medication - prescribed and OTC reviewed and updated: Yes Latex allergy: no. Is the patient having any pain? No 0 on a scale of 0 to 10 See flow sheet for treatment record. Kierra Willis RN March 20, 2025 3:12 PM Allergies As of Date: 03/20/2025 Noted Allergy Reaction DIPHENYLGUANIDINE 11/17/2024 2 - Rash IODOPROPYNYL BUTYLCARBAMATE 11/17/2024 2 - Rash WHEAT 08/24/2019 7 - Swelling DAIRY AID (LACTASE) 08/24/2019 7 - Swelling Comments: Bloating Date Reviewed: 03/20/2025 Reviewed by: Kierra Willis RN - Fully Assessed Reason for Visit: Light Treatments [1093] Primary Visit Diagnosis:Eczema, unspecified type [L30.9] Prescriptions as of 03/20/2025 - calcium carbonate/vitamin D3 (CALCIUM CHEW ORAL) Take by mouth. - triamcinolone acetonide (KENALOG) 0.1 % ointment Apply to affected areas twice daily Wednesday-Wednesday as needed. Avoid face, groin, and armpits - white petrolatum (AQUAPHOR) 41 % topical ointment Apply to affected area as needed. - pantoprazole DR (PROTONIX) 40 mg tablet Take 1 tablet by mouth daily at 6 am. Patient should start on May 11, 2024. - Lactobacillus acidophilus (PROBIOTIC ORAL) Take 1 capsule by mouth once daily. - Cholecalciferol, Vitamin D3, 25 mcg (1,000 unit) cap Take 1,000 Units by mouth once daily. 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] 05/06/2024 Age-related osteoporosis without current pathol*05/06/2024 Lymphadenopathy [R59.1] 05/06/2024 Eosinophilia [D72.10] 05/08/2024 Eczema [L30.9] 05/08/2024 Peripheral eosinophilia [D72.19] 05/09/2024 Uvular edema [K13.79] 01/29/2025 Urticaria [L50.9] 01/29/2025 Post menopausal syndrome [N95.1] 06/25/2023 Pain in joint of right hip [M25.551] 10/01/2024 01/29/2025 Other fatigue [R53.83] 10/01/2024 01/29/2025 Osteoarthritis of right hip [M16.11] 10/01/2024 Non-celiac gluten sensitivity [K90.41] 06/25/2023 History of steroid therapy [Z92.241] 10/01/2024 01/29/2025 Abnormal radiographic examination [R93.89] 01/29/2025 01/29/2025 Varicose veins of bilateral lower extremities w*12/08/2022 Other specified noninflammatory disorders of ut*08/08/2024 Mastodynia [N64.4] 03/29/2022 Fatigue [R53.83] 09/26/2024 01/29/2025 H/O skin disorder [Z87.2] 01/29/2025 01/29/2025 Cyst of right breast [N60.01] 03/29/2022 Edema [R60.9] 01/29/2025 01/29/2025 Asymptomatic menopausal state [Z78.0] 03/24/2022 01/29/2025 Acute pharyngitis, unspecified [J02.9] 01/02/2024 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 Encounter Status:Closed by KIERRA WILLIS on 03/20/25 PROGRESS Observed: 03/16/2025 3:21 PM Status: COMPLETED Source: [facility] HNO ID: [id number] Author: AUSTIN BOSS RN Service: ? Author Type: Registered Nurse Type: Progress Notes Filed: 03/16/2025 15:28 Note Text: Pt is identified by name and birthdate: Yes Allergies reviewed: Yes Medication - prescribed and OTC reviewed and updated: Yes Latex allergy: no. Is the patient having any pain? No 0 on a scale of 0 to 10 See flow sheet for treatment record. Austin Boss RN March 16, 2025 3:21 PM CNNURSE Observed: 03/16/2025 3:00 PM Status: COMPLETED Source: [facility] Nurse Visit (DERMAV) MIRIAN CORRALES ([id number]) 1955 F Date Time Provider Department 03/16/25 3:00 PM NURSE DERM [facility] REJ DERMJUSTYNA During your visit today, we recorded the following information about you: Austin Boss RN 03/16/2025 3:28 PM Signed Pt is identified by name and birthdate: Yes Allergies reviewed: Yes Medication - prescribed and OTC reviewed and updated: Yes Latex allergy: no. Is the patient having any pain? No 0 on a scale of 0 to 10 See flow sheet for treatment record. Austin Boss RN March 16, 2025 3:21 PM Allergies As of Date: 03/16/2025 Noted Allergy Reaction DIPHENYLGUANIDINE 11/17/2024 2 - Rash IODOPROPYNYL BUTYLCARBAMATE 11/17/2024 2 - Rash WHEAT 08/24/2019 7 - Swelling DAIRY AID (LACTASE) 08/24/2019 7 - Swelling Comments: Bloating Date Reviewed: 03/16/2025 Reviewed by: Austin Boss RN - Fully Assessed Reason for Visit: Light Treatments [1093] Primary Visit Diagnosis:Eczema, unspecified type [L30.9] Prescriptions as of 03/16/2025 - calcium carbonate/vitamin D3 (CALCIUM CHEW ORAL) Take by mouth. - triamcinolone acetonide (KENALOG) 0.1 % ointment Apply to affected areas twice daily Wednesday-Wednesday as needed. Avoid face, groin, and armpits - white petrolatum (AQUAPHOR) 41 % topical ointment Apply to affected area as needed. - pantoprazole DR (PROTONIX) 40 mg tablet Take 1 tablet by mouth daily at 6 am. Patient should start on May 11, 2024. - Lactobacillus acidophilus (PROBIOTIC ORAL) Take 1 capsule by mouth once daily. - Cholecalciferol, Vitamin D3, 25 mcg (1,000 unit) cap Take 1,000 Units by mouth once daily. 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] 05/06/2024 Age-related osteoporosis without current pathol*05/06/2024 Lymphadenopathy [R59.1] 05/06/2024 Eosinophilia [D72.10] 05/08/2024 Eczema [L30.9] 05/08/2024 Peripheral eosinophilia [D72.19] 05/09/2024 Uvular edema [K13.79] 01/29/2025 Urticaria [L50.9] 01/29/2025 Post menopausal syndrome [N95.1] 06/25/2023 Pain in joint of right hip [M25.551] 10/01/2024 01/29/2025 Other fatigue [R53.83] 10/01/2024 01/29/2025 Osteoarthritis of right hip [M16.11] 10/01/2024 Non-celiac gluten sensitivity [K90.41] 06/25/2023 History of steroid therapy [Z92.241] 10/01/2024 01/29/2025 Abnormal radiographic examination [R93.89] 01/29/2025 01/29/2025 Varicose veins of bilateral lower extremities w*12/08/2022 Other specified noninflammatory disorders of ut*08/08/2024 Mastodynia [N64.4] 03/29/2022 Fatigue [R53.83] 09/26/2024 01/29/2025 H/O skin disorder [Z87.2] 01/29/2025 01/29/2025 Cyst of right breast [N60.01] 03/29/2022 Edema [R60.9] 01/29/2025 01/29/2025 Asymptomatic menopausal state [Z78.0] 03/24/2022 01/29/2025 Acute pharyngitis, unspecified [J02.9] 01/02/2024 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 Questionnaire: DERMATOLOGY PHOTOTHERAPY TX DX -> eczema ORDERING PHYSICIAN -> Cmt: Jacob TX TYPE -> NARROW BAND UVB (MJ/CM2) TX FREQ -> 3X/WK INITIAL DOSE -> 300 MAX DOSE -> 3000 INCREASE BY -> 50 TX# -> 65 DOSE -> 350 DOSE ADJ -> increase by 50 COMMENTS: -> tolerating well Encounter Status:Closed by AUSTIN BOSS on 03/16/25 CNNURSE Observed: 03/13/2025 3:00 PM Status: COMPLETED Source: [facility] Nurse Visit (DERMAV) MIRIAN CORRALES ([id number]) 1955 F Date Time Provider Department 03/13/25 3:00 PM NURSE DERM [facility] REJ DERMAV During your visit today, we recorded the following information about you: Jono Merritt RN 03/13/2025 3:01 PM Signed Pt is identified by name and birthdate: Yes Allergies reviewed: Yes Medication - prescribed and OTC reviewed and updated: Yes Latex allergy: no. Is the patient having any pain? No 0 on a scale of 0 to 10 See flow sheet for treatment record. Jono Merritt RN March 13, 2025 3:01 PM Allergies As of Date: 03/13/2025 Noted Allergy Reaction DIPHENYLGUANIDINE 11/17/2024 2 - Rash IODOPROPYNYL BUTYLCARBAMATE 11/17/2024 2 - Rash WHEAT 08/24/2019 7 - Swelling DAIRY AID (LACTASE) 08/24/2019 7 - Swelling Comments: Bloating Date Reviewed: 03/13/2025 Reviewed by: Jono Merritt RN - Fully Assessed Reason for Visit: Light Treatments [1093] Primary Visit Diagnosis:Eczema, unspecified type [L30.9] Prescriptions as of 03/13/2025 - calcium carbonate/vitamin D3 (CALCIUM CHEW ORAL) Take by mouth. - triamcinolone acetonide (KENALOG) 0.1 % ointment Apply to affected areas twice daily Wednesday-Wednesday as needed. Avoid face, groin, and armpits - white petrolatum (AQUAPHOR) 41 % topical ointment Apply to affected area as needed. - pantoprazole DR (PROTONIX) 40 mg tablet Take 1 tablet by mouth daily at 6 am. Patient should start on May 11, 2024. - Lactobacillus acidophilus (PROBIOTIC ORAL) Take 1 capsule by mouth once daily. - Cholecalciferol, Vitamin D3, 25 mcg (1,000 unit) cap Take 1,000 Units by mouth once daily. 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] 06/25/2023 History of steroid therapy [Z92.241] 10/01/2024 01/29/2025 Abnormal radiographic examination [R93.89] 01/29/2025 01/29/2025 Varicose veins of bilateral lower extremities w*12/08/2022 Other specified noninflammatory disorders of ut*08/08/2024 Mastodynia [N64.4] 03/29/2022 Fatigue [R53.83] 09/26/2024 01/29/2025 H/O skin disorder [Z87.2] 01/29/2025 01/29/2025 Cyst of right breast [N60.01] 03/29/2022 Edema [R60.9] 01/29/2025 01/29/2025 Asymptomatic menopausal state [Z78.0] 03/24/2022 01/29/2025 Acute pharyngitis, unspecified [J02.9] 01/02/2024 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 Author Type: Registered Nurse Type: Progress Notes Filed: 03/13/2025 15:01 Note Text: Pt is identified by name and birthdate: Yes Allergies reviewed: Yes Medication - prescribed and OTC reviewed and updated: Yes Latex allergy: no. Is the patient having any pain? No 0 on a scale of 0 to 10 See flow sheet for treatment record. Jono Merritt RN March 13, 2025 3:01 PM COMPLETE BLOOD COUNT AUTO DIFF Collected: 03/05/2025 12:49 PM Status: F Source: [facility] TYPE CODE TESTS RESULT OUT OF RANGE REFERENCE UNITS LAB WBC White Blood Count 7.0 Normal 3.8-11.6 10*3/uL LAB UNWBC Uncorrected WBC 7.0 Normal 3.8-11.6 10*3/uL LAB RBC Red Blood Count 3.48 Low 3.60-5.00 10*6/u L LAB HGB Hemoglobin 9.9 Low 11.8-15.4 g/dL LAB HCT Hematocrit 29.4 Low 34.0-46.4 % LAB MCV Mean Corpuscular Volume 84.3 Normal 80-100 fL LAB MCH Mean Corpuscular Hemoglobin 28.4 Normal 24.7-34.3 pg LAB MCHC Mean Corpuscular HGB Conc 33.6 Normal 32.0-35.0 g/dL LAB RDW Red Cell Distribution Width 13.7 Normal 11.9-15.3 % LAB PLT Platelet Count 357 Normal 150-450 10*3/uL LAB MPV Mean Platelet Volume 8.4 Normal 6.3-10.7 fL LAB NE% Neutrophils % (Auto) 83.0 . % LAB LY% Lymphocytes % (Auto) 7.9 . % LAB MO% Monocytes % (Auto) 7.3 . % LAB EO% Eosinophils % (Auto) 0.9 . % LAB BA% Basophils % (Auto) 0.9 . % LAB NRBC% NRBC% 0.1 Normal 0-0.5 /100{WBC} LAB NE# Neutrophils # (Auto) 5.8 Normal 1.8-7.7 10*3/uL LAB LY# Lymphocytes # (Auto) 0.6 Low 1.00-4.8 10*3/uL LAB MO# Monocytes # (Auto) 0.5 Normal 0.0-0.8 10*3/uL LAB EO# Eosinophils # (Auto) 0.1 Normal 0.0-0.45 10*3/uL LAB BA# Basophils # (Auto) 0.1 Normal 0.0-0.2 10*3/uL Result Comment: PERFORMED BY : [place] [address] PATHOLOGIST EDDY CURRENT INSPECTOR MARISEL MANRIQUE M.D. Performed By: #### CMP, CBC, CEA, LIPASE #### [place] [address] [place] #### CA125 #### [facility] , COMPREHENSIVE METABOLIC PANEL Collected: 03/05/2025 1 2:49 PM Status: F Source: [facility] TYPE CODE TESTS RESULT OUT OF RANGE REFERENCE UNITS LAB GLU Glucose 76 Normal 70-100 mg/dL Result Comment: Random Gluco se Reference Range is dependent on time and content of last meal. Glucose of more than 200 mg/dL in a nonstressed, ambulatory subject supports the diagnosis of Diabetes Mellitus. ADA recommended reference range LAB BUN Blood Urea Nitrogen 17 Normal 7-25 mg/d L LAB CREATT Creatinine 0.91 Normal 0.60-1.20 mg/dL LAB GFReNR Estimated GFR >60.0 mL/Min LAB NA Sodium 138 Normal 136-145 mmol/L LAB K Potassium 4.7 Normal 3.5-5.1 mmol/L LAB CL Chloride 101 Normal 98-107 mmol/L LAB CO2 Carbon Dioxide 31.1 High 21.0-31.0 mmol/L LAB GAP Anion Gap 10.6 Normal 6.0-15.0 meq/L LAB CA Calcium 8.8 Normal 8.6-10.3 mg/dL LAB TP Total Protein 7.1 Normal 6.4-8.9 g/dL LAB ALB Albumin Level 3.5 Normal 3.5-5.7 g/dL LAB GLOB Globulin 3.6 g/dL LAB AGRATIO Albumin/Globulin Ratio 1.0 LAB BILIT Bilirubin,Total 0.3 Normal 0.3-1.0 mg/dL LAB AST Aspartate Amino Transferase 19 Normal 13-39 U/L LAB ALT Alanine Aminotransferase 13 Normal 7-52 U/L LAB ALP Alkaline Phosphatase 70 Normal 34-104 U/L LAB CRCLPHA Creatinine Clr [facility] 47.21 Performed By: #### CMP, CBC, CEA, LIPASE #### [address] #### CA125 #### [facility] , LIPASE Collected: 5 12:49 PM Status: F Source: [facility] TYPE CODE TESTS RESULT OUT OF RANGE REFERENCE UNITS LAB LIPASE Lipase 28.0 Normal 11.0-82.0 U/L Result Comment: PERFORMED BY : [place] [address] PATHOLOGIST EDDY CURRENT INSPECTOR MARISEL MANRIQUE M.D. Performed By: #### CMP, CBC, CEA, LIPASE #### [address] #### CA125 #### [facility] , CARCINOEMBRYONIC ANTIGEN Collected: 03/05/2025 12:49 PM Status: F Source: [facility] TYPE CODE TESTS RESULT OUT OF RANGE REFERENCE UNITS LAB CEA Carcinoembryonic Antigen 1.9 Normal 0.0-3.0 ng/mL Result Comment: Serial tumo r marker results determined by assays using different manufacturers or methods may not be comparable. 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 ASSAY. PERFORMED BY: [place] [address] PATHOLOGIST EDDY CURRENT INSPECTOR MARISEL MANRIQUE M.D. Performed By: #### CMP, CBC, CEA, LIPASE #### [address] #### CA125 #### [facility] , CANCER ANTIGEN 125 Collected: 12:49 PM Status: F Source: [facility] TYPE CODE TESTS RESULT OUT OF RANGE REFERENCE UNITS LAB CA125 Cancer Antigen 125 174.0 0.0-38.1 Result Comment: [employer] Electrochemiluminescence Immunoassay (ECLIA) Values obtained with different assay methods or kits cannot be used interchangeably. Results cannot be interpreted as absolute evidence of the presence or absence of malignant disease. Performed at: [address] [id number] Architecture Technician: Lj Solano PhD, Phone: [phone] PERFORMED BY: [place] [address] PATHOLOGIST EDDY CURRENT INSPECTOR MARISEL MANRIQUE M.D. Performed By: #### CMP, CBC, CEA, LIPASE #### [address] #### CA125 #### [facility] , COMPLETE BLOOD COUNT AUTO DIFF Collected: 02/17/2025 2:32 AM Status: C Source: [facility] TYPE CODE TESTS RESULT OUT OF RANGE REFERENCE UNITS LAB WBC White Blood Count 10.2 Normal 3.8-11.6 10*3/uL Result Comment: --- 02/17/25505 --- WBC previously reported as: 10.1 X10E3/uL LAB UNWBC Uncorrected WBC 10.2 Normal 3.8-11.6 10*3/uL Result Comment: --- 02/17/25505 --- UNWBC previously reported as: 10.1 x10E3/uL LAB RBC Red Blood Count 4.03 Normal 3.60-5.00 10*6/u L Result Comment: --- 02/17/25505 --- RBC previously reported as: 4.07 x10E6/uL LAB HGB Hemoglobin 11.5 Low 11.8-15.4 g/dL Result Comment: --- 02/17/25505 --- HGB previously reported as: 11.6 L g/dL LAB HCT Hematocrit 33.8 Low 34.0-46.4 % Result Comment: --- 02/17/25505 --- HCT previously reported as: 33.5 L % LAB MCV Mean Corpuscular Volume 83.9 Normal 80-100 fL Result Comment: --- 02/17/25505 --- MCV previously reported as: 82.3 fl LAB MCH Mean Corpuscular Hemoglobin 28.5 Normal 24.7-34.3 pg Result Comment: --- 02/17/25505 --- MCH previously reported as: 28.6 pg LAB MCHC Mean Corpuscular HGB Conc 33.9 Normal 32.0-35.0 g/dL Result Comment: --- 02/17/25505 --- MCHC previously reported as: 34.8 g/dL LAB RDW Red Cell Distribution Width 13.6 Normal 11.9-15.3 % Result Comment: --- 02/17/25505 --- RDW previously reported as: 13.6 % LAB PLT Platelet Count 350 Normal 150-450 10*3/uL Result Comment: --- 02/17/25505 --- Plt previously reported as: 347 x10E3/uL LAB MPV Mean Platelet Volume 8.7 Normal 6.3-10.7 fL Result Comment: --- 02/17/25505 --- MPV previously reported as: 8.6 fl LAB MDW Monocyte Distribution Width Test Not Performed Normal 0.00-20.00 Result Comment: Unable to ca lculate MDW because the Absolute Monocyte Count is <0.8.Unable to calculate MDW because the Absolute Monocyte Count is <0.8.--- 02/17/25505 --- MDW previously reported as: Test Not Performed % Unable to calculate MDW because the Absolute Monocyte Count is <0.8. LAB NE% Neutrophils % (Auto) 95.5 . % Result Comment: --- 02/17/25505 --- Neut % (Auto) previously reported as: 95.6 % LAB LY% Lymphocytes % (Auto) 2.4 . % Result Comment: --- 02/17/25505 --- Lymp % (Auto) previously reported as: 2.2 % LAB MO% Monocytes % (Auto) 0.6 . % Result Comment: --- 02/17/25505 --- [place] % (Auto) previously reported as: 0.6 % LAB EO% Eosinophils % (Auto) 1.3 . % Result Comment: --- 02/17/25505 --- Eos % (Auto) previously reported as: 1.6 % LAB BA% Basophils % (Auto) 0.2 . % Result Comment: --- 02/17/25505 --- Baso % (Auto) previously reported as: 0.0 % LAB NRBC% NRBC% 0.1 Normal 0-0.5 /100{WBC } Result Comment: --- 02/17/25505 --- NRBC% previously reported as: 0.0 /100 WBC LAB NE# Neutrophils # (Auto) 9.7 High 1.8-7.7 10*3/uL Result Comment: --- 02/17/25505 --- Neut # (Auto) previously reported as: 9.6 H x10E3/uL LAB LY# Lymphocytes # (Auto) 0.2 Low 1.00-4.8 10*3/uL Result Comment: --- 6 --- Lymph # (Auto) previously reported as: 0.2 L x10E3/uL LAB MO# Monocytes # (Auto) 0.1 Normal 0.0-0.8 10*3/uL Result Comment: --- 02/17/25 0506 --- [place] # (Auto) previously reported as: 0.1 x10E3/uL LAB EO# Eosinophils # (Auto) 0.1 Normal 0.0-0.45 10*3/uL Result Comment: --- 02/17/25 0506 --- Eos # (Auto) previously reported as: 0.2 x10E3/uL LAB BA# Basophils # (Auto) 0.0 Normal 0.0-0.2 10*3/uL Result Comment: --- 02/17/25 0506 --- Baso# (Auto) previously reported as: 0.0 x10E3/uL PERFORMED BY: [place] [address] PATHOLOGIST EDDY CURRENT INSPECTOR MARISEL MANRIQUE M.D. Performed By: #### CK, CBC, CMP #### [address] CREATINE KINASE Collected: 02/17/2025 2:32 AM Status : F Source: [facility] TYPE CODE TESTS RESULT OUT OF RANGE REFERENCE UNITS LAB CK Creatine Kinase 36 Normal 30-223 U/L Result Comment: PERFORMED BY : [place] [address] PATHOLOGIST EDDY CURRENT INSPECTOR MARISEL MANRIQUE M.D. Performed By: #### CK, CBC, CMP #### [address] COMPREHENSIVE METABOLIC PANEL Collected: 02/17/2025 2 :32 AM Status: F Source: [facility] TYPE CODE TESTS RESULT OUT OF RANGE REFERENCE UNITS LAB GLU Glucose 106 High 70-100 mg/dL Result Comment: Random Gluco se Reference Range is dependent on time and content of last meal. Glucose of more than 200 mg/dL in a nonstressed, ambulatory subject supports the diagnosis of Diabetes Mellitus. ADA recommended reference range LAB BUN Blood Urea Nitrogen 24 Normal 7-25 mg/d L LAB CREATT Creatinine 0.87 Normal 0.60-1.20 mg/dL LAB GFReNR Estimated GFR >60.0 mL/Min LAB NA Sodium 128 Low 136-145 mmol/L LAB K Potassium 4.1 Normal 3.5-5.1 mmol/L LAB CL Chloride 97 Low 98-107 mmol/L LAB CO2 Carbon Dioxide 22.9 Normal 21.0-31.0 mmol/L LAB GAP Anion Gap 12.2 Normal 6.0-15.0 meq/L LAB CA Calcium 8.6 Normal 8.6-10.3 mg/dL LAB TP Total Protein 7.1 Normal 6.4-8.9 g/dL LAB ALB Albumin Level 3.4 Low 3.5-5.7 g/dL LAB GLOB Globulin 3.7 g/dL LAB AGRATIO Albumin/Globulin Ratio 0.9 LAB BILIT Bilirubin,Total 0.7 Normal 0.3-1.0 mg/dL LAB AST Aspartate Amino Transferase 26 Normal 13-39 U/L LAB ALT Alanine Aminotransferase 10 Normal 7-52 U/L LAB ALP Alkaline Phosphatase 68 Normal 34-104 U/L LAB CRCLPHA Creatinine Clr [facility] Pharm[facility] 51.06 Result Comment: PERFORMED BY : [place] [address] PATHOLOGIST EDDY CURRENT INSPECTOR MARISEL MANRIQUE M.D. Performed By: #### CK, CBC, CMP #### [address] COMPLETE BLOOD COUNT AUTO DIFF Collected: 02/16/2025 2:33 PM Status: F Source: [facility] TYPE CODE TESTS RESULT OUT OF RANGE REFERENCE UNITS LAB WBC White Blood Count 9.9 Normal 3.8-11.6 10*3/uL LAB UNWBC Uncorrected WBC 9.9 Normal 3.8-11.6 10*3/uL LAB RBC Red Blood Count 4.05 Normal 3.60-5.00 10*6/u L LAB HGB Hemoglobin 11.5 Low 11.8-15.4 g/dL LAB HCT Hematocrit 34.3 Normal 34.0-46.4 % LAB MCV Mean Corpuscular Volume 84.9 Normal 80-100 fL LAB MCH Mean Corpuscular Hemoglobin 28.5 Normal 24.7-34.3 pg LAB MCHC Mean Corpuscular HGB Conc 33.6 Normal 32.0-35.0 g/dL LAB RDW Red Cell Distribution Width 13.7 Normal 11.9-15.3 % LAB PLT Platelet Count 400 Normal 150-450 10*3/uL LAB MPV Mean Platelet Volume 9.0 Normal 6.3-10.7 fL LAB NE% Neutrophils % (Auto) 94.7 . % LAB LY% Lymphocytes % (Auto) 3.5 . % LAB MO% Monocytes % (Auto) 0.7 . % LAB EO% Eosinophils % (Auto) 0.8 . % LAB BA% Basophils % (Auto) 0.3 . % LAB NRBC% NRBC% 0.1 Normal 0-0.5 /100{WBC} LAB NE# Neutrophils # (Auto) 9.3 High 1.8-7.7 10*3/uL LAB LY# Lymphocytes # (Auto) 0.3 Low 1.00-4.8 10*3/uL LAB MO# Monocytes # (Auto) 0.1 Normal 0.0-0.8 10*3/uL LAB EO# Eosinophils # (Auto) 0.1 Normal 0.0-0.45 10*3/uL LAB BA# Basophils # (Auto) 0.0 Normal 0.0-0.2 10*3/uL Result Comment: PERFORMED BY : [place] [address] PATHOLOGIST EDDY CURRENT INSPECTOR MARISEL MANRIQUE M.D. Performed By: #### CMP, CBC #### [address] COMPREHENSIVE METABOLIC PANEL Collected: 02/16/2025 2 :33 PM Status: F Source: [facility] TYPE CODE TESTS RESULT OUT OF RANGE REFERENCE UNITS LAB GLU Glucose 101 High 70-100 mg/dL Result Comment: Random Gluco se Reference Range is dependent on time and content of last meal. Glucose of more than 200 mg/dL in a nonstressed, ambulatory subject supports the diagnosis of Diabetes Mellitus. ADA recommended reference range LAB BUN Blood Urea Nitrogen 25 Normal 7-25 mg/d L LAB CREATT Creatinine 0.91 Normal 0.60-1.20 mg/dL LAB GFReNR Estimated GFR >60.0 mL/Min LAB NA Sodium 130 Low 136-145 mmol/L LAB K Potassium 4.9 Normal 3.5-5.1 mmol/L LAB CL Chloride 96 Low 98-107 mmol/L LAB CO2 Carbon Dioxide 27.4 Normal 21.0-31.0 mmol/L LAB GAP Anion Gap 11.5 Normal 6.0-15.0 meq/L LAB CA Calcium 8.4 Low 8.6-10.3 mg/dL LAB TP Total Protein 7.0 Normal 6.4-8.9 g/dL LAB ALB Albumin Level 3.4 Low 3.5-5.7 g/dL LAB GLOB Globulin 3.6 g/dL LAB AGRATIO Albumin/Globulin Ratio 0.9 LAB BILIT Bilirubin,Total 0.5 Normal 0.3-1.0 mg/dL LAB AST Aspartate Amino Transferase 27 Normal 13-39 U/L LAB ALT Alanine Aminotransferase 12 Normal 7-52 U/L LAB ALP Alkaline Phosphatase 81 Normal 34-104 U/L LAB CRCLPHA Creatinine Clr [facility] 50.09 Result Comment: PERFORMED BY : [place] [address] PATHOLOGIST EDDY CURRENT INSPECTOR MARISEL MANRIQUE M.D. Performed By: #### CMP, CBC #### [address] CNPN Observed: 02/13/2025 12:00 AM Status: COMPLETED Source: [facility] Telephone (VINCECA) MIRIAN CORRALES ([id number]) 1955 F Date Time Provider Department 02/13/25 JUAN WHALEN During your visit today, we recorded the following information about you: Jackie Soliman 02/13/2025 3:08 PM Signed Received External Records from [facility] Uploaded into scanned documents. Allergies As of Date: 02/13/2025 Noted Allergy Reaction DIPHENYLGUANIDINE 11/17/2024 2 - Rash IODOPROPYNYL BUTYLCARBAMATE 11/17/2024 2 - Rash WHEAT 08/24/2019 7 - Swelling DAIRY AID (LACTASE) 08/24/2019 7 - Swelling Comments: Bloating Date Reviewed: 02/09/2025 Reviewed by: Kierra Harris, JOSÉ ANTONIO - Fully Assessed Reason for Visit: Received external records [Other] Prescriptions as of 02/13/2025 - calcium carbonate/vitamin D3 (CALCIUM CHEW ORAL) Take by mouth. - triamcinolone acetonide (KENALOG) 0.1 % ointment Apply to affected areas twice daily Wednesday-Wednesday as needed. Avoid face, groin, and armpits - white petrolatum (AQUAPHOR) 41 % topical ointment Apply to affected area as needed. - pantoprazole DR (PROTONIX) 40 mg tablet Take 1 tablet by mouth daily at 6 am. Patient should start on May 11, 2024. - Lactobacillus acidophilus (PROBIOTIC ORAL) Take 1 capsule by mouth once daily. - Cholecalciferol, Vitamin D3, 25 mcg (1,000 unit) cap Take 1,000 Units by mouth once daily. 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] 06/25/2023 History of steroid therapy [Z92.241] 10/01/2024 01/29/2025 Abnormal radiographic examination [R93.89] 01/29/2025 01/29/2025 Varicose veins of bilateral lower extremities w*12/08/2022 Other specified noninflammatory disorders of ut*08/08/2024 Mastodynia [N64.4] 03/29/2022 Fatigue [R53.83] 09/26/2024 01/29/2025 H/O skin disorder [Z87.2] 01/29/2025 01/29/2025 Cyst of right breast [N60.01] 03/29/2022 Edema [R60.9] 01/29/2025 01/29/2025 Asymptomatic menopausal state [Z78.0] 03/24/2022 01/29/2025 Acute pharyngitis, unspecified [J02.9] 01/02/2024 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 Author Type: Registered Nurse Type: Progress Notes Filed: 02/09/2025 16:58 Note Text: Pt is identified by name and birthdate: Yes Allergies reviewed: Yes Medication - prescribed and OTC reviewed and updated: Yes Latex allergy: no. Is the patient having any pain? No 0 on a scale of 0 to 10 See flow sheet for treatment record. Kierra Harris RN February 09, 2025 4:56 PM CNNURSE Observed: 02/09/2025 4:00 PM Status: COMPLETED Source: [facility] Nurse Visit (DERMAV) MIRIAN CORRALES ([id number]) 1955 F Date Time Provider Department 02/09/25 4:00 PM NURSE D[facility]M [facility] REJ DERMJUSTYNA During your visit today, we recorded the following information about you: Kierra Harris RN 02/09/2025 4:58 PM Signed Pt is identified by name and birthdate: Yes Allergies reviewed: Yes Medication - prescribed and OTC reviewed and updated: Yes Latex allergy: no. Is the patient having any pain? No 0 on a scale of 0 to 10 See flow sheet for treatment record. Kierra Harris RN February 09, 2025 4:56 PM Allergies As of Date: 02/09/2025 Noted Allergy Reaction DIPHENYLGUANIDINE 11/17/2024 2 - Rash IODOPROPYNYL BUTYLCARBAMATE 11/17/2024 2 - Rash WHEAT 08/24/2019 7 - Swelling DAIRY AID (LACTASE) 08/24/2019 7 - Swelling Comments: Bloating Date Reviewed: 02/09/2025 Reviewed by: Kierra Harris RN - Fully Assessed Reason for Visit: Light Treatments [1093] Primary Visit Diagnosis:Eczema, unspecified type [L30.9] Prescriptions as of 02/09/2025 - calcium carbonate/vitamin D3 (CALCIUM CHEW ORAL) Take by mouth. - triamcinolone acetonide (KENALOG) 0.1 % ointment Apply to affected areas twice daily Wednesday-Wednesday as needed. Avoid face, groin, and armpits - white petrolatum (AQUAPHOR) 41 % topical ointment Apply to affected area as needed. - pantoprazole DR (PROTONIX) 40 mg tablet Take 1 tablet by mouth daily at 6 am. Patient should start on May 11, 2024. - Lactobacillus acidophilus (PROBIOTIC ORAL) Take 1 capsule by mouth once daily. - Cholecalciferol, Vitamin D3, 25 mcg (1,000 unit) cap Take 1,000 Units by mouth once daily. 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] 06/25/2023 History of steroid therapy [Z92.241] 10/01/2024 01/29/2025 Abnormal radiographic examination [R93.89] 01/29/2025 01/29/2025 Varicose veins of bilateral lower extremities w*12/08/2022 Other specified noninflammatory disorders of ut*08/08/2024 Mastodynia [N64.4] 03/29/2022 Fatigue [R53.83] 09/26/2024 01/29/2025 H/O skin disorder [Z87.2] 01/29/2025 01/29/2025 Cyst of right breast [N60.01] 03/29/2022 Edema [R60.9] 01/29/2025 01/29/2025 Asymptomatic menopausal state [Z78.0] 03/24/2022 01/29/2025 Acute pharyngitis, unspecified [J02.9] 01/02/2024 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 Author Type: Registered Nurse Type: Progress Notes Filed: 02/06/2025 15:28 Note Text: Pt is identified by name and birthdate: Yes Allergies reviewed: Yes Medication - prescribed and OTC reviewed and updated: Yes Latex allergy: no. Is the patient having any pain? No 0 on a scale of 0 to 10 See flow sheet for treatment record. Jono Merritt RN February 06, 2025 3:28 PM CNNURSE Observed: 02/06/2025 3:20 PM Status: COMPLETED Source: [facility] Nurse Visit (DERMAV) MIRIAN CORRALES ([id number]) 1955 F Date Time Provider Department 02/06/25 3:20 PM NURSE DERM [facility] DERMJUST[facility] During your visit today, we recorded the following information about you: Jono Merritt RN 02/06/2025 3:28 PM Signed Pt is identified by name and birthdate: Yes Allergies reviewed: Yes Medication - prescribed and OTC reviewed and updated: Yes Latex allergy: no. Is the patient having any pain? No 0 on a scale of 0 to 10 See flow sheet for treatment record. Jono Merritt RN February 06, 2025 3:28 PM Allergies As of Date: 02/06/2025 Noted Allergy Reaction DIPHENYLGUANIDINE 11/17/2024 2 - Rash IODOPROPYNYL BUTYLCARBAMATE 11/17/2024 2 - Rash WHEAT 08/24/2019 7 - Swelling DAIRY AID (LACTASE) 08/24/2019 7 - Swelling Comments: Bloating Date Reviewed: 02/06/2025 Reviewed by: Jono Merritt RN - Fully Assessed Reason for Visit: Light Treatments [1093] Primary Visit Diagnosis:Eczema, unspecified type [L30.9] Prescriptions as of 02/06/2025 - calcium carbonate/vitamin D3 (CALCIUM CHEW ORAL) Take by mouth. - triamcinolone acetonide (KENALOG) 0.1 % ointment Apply to affected areas twice daily Wednesday-Wednesday as needed. Avoid face, groin, and armpits - white petrolatum (AQUAPHOR) 41 % topical ointment Apply to affected area as needed. - pantoprazole DR (PROTONIX) 40 mg tablet Take 1 tablet by mouth daily at 6 am. Patient should start on May 11, 2024. - Lactobacillus acidophilus (PROBIOTIC ORAL) Take 1 capsule by mouth once daily. - Cholecalciferol, Vitamin D3, 25 mcg (1,000 unit) cap Take 1,000 Units by mouth once daily. 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] 06/25/2023 History of steroid therapy [Z92.241] 10/01/2024 01/29/2025 Abnormal radiographic examination [R93.89] 01/29/2025 01/29/2025 Varicose veins of bilateral lower extremities w*12/08/2022 Other specified noninflammatory disorders of ut*08/08/2024 Mastodynia [N64.4] 03/29/2022 Fatigue [R53.83] 09/26/2024 01/29/2025 H/O skin disorder [Z87.2] 01/29/2025 01/29/2025 Cyst of right breast [N60.01] 03/29/2022 Edema [R60.9] 01/29/2025 01/29/2025 Asymptomatic menopausal state [Z78.0] 03/24/2022 01/29/2025 Acute pharyngitis, unspecified [J02.9] 01/02/2024 Questionnaire: DERMATOLOGY PHOTOTHERAPY TX DX -> eczema ORDERING PHYSICIAN -> Cmt: jacob TX TYPE -> NARROW BAND UVB (MJ/CM2) TX FREQ -> 3X/WK INITIAL DOSE -> 300 MAX DOSE -> 3000 INCREASE BY -> 50 TX# -> 62 DOSE -> 735 DOSE ADJ -> same COMMENTS: -> tolerating Encounter Status:Closed by JONO MERRITT on 02/06/25 [place] Observed: 02/06/2025 1:35 PM Status: COMPLETED Source: [facility] Visit (SP) Office (JOVON) MIRIAN CORRALES ([id number]) 1955 F Date Time Provider Department 02/06/25 1:35 PM JUAN WHALEN During your visit today, we recorded the following information about you: Temperature Pulse Blood pressure Weight 99.5 degrees 88/minute 125/77 53 kg Height 1.676 m Juan Whalen MD 02/06/2025 6:18 PM Signed Gynecologic Oncology [facility] Consultation Re: Mirian Corrales CC#: [id number] Date of service: 02/06/2025 Lisandro Vines, Consultation requested by Dr. Vines for an opinion regarding ovarian cancer. My final recommendations will be communicated back to the requesting physician by way of shared medical record or letter to requesting physician via US mail. Dear Lisandro: Thank you for referring Mirian for consultation. Briefly, she is a 69 year old female has a past medical history of Acute pharyngitis, unspecified (01/02/2024), Age-related osteoporosis without current pathological fracture (05/06/2024), Cyst of right breast (03/29/2022), Eczema (05/08/2024), Eosinophilia (05/08/2024), H/O skin disorder (01/29/2025), 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 She presents today to establish care with urogynaecologist oncology. 08/24/2022 INVITAE TESTIN11/23/2024 Small Bowel Biopsy: 01/15/2025 CT ABD/PELVIS: IMPRESSION: BIBASILAR ATELECTASIS OR SCARRING. TINY INDETERMINANT HEPATIC HYPODENSITIES. NO BOWEL OR URINARY TRACT OBSTRUCTION. ABDOMINAL AND PELVIC LYMPHADENOPATHY. FOLLOW-UP WILL BE NEEDED TO ASSESS FOR THE POSSIBILITY OF MALIGNANCY, PARTICULARLY LYMPHOMA. SUSPECTED UTERINE FIBROID. UNDER DISTENDED URINARY BLADDER WITH APPARENT WALL THICKENING 01/17/2025 Axilla US: 01/18/2025 Axilla Biopsy: 01/24/2025 US FEMALE PELVIS: IMPRESSION: 1. Heterogeneous uterine echotexture with multiple fibroids, one calcified. 2. Right ovarian subcentimeter shadowing echogenic focus. This may represent a calcification however, calcified mass lesion can not be entirely excluded. 01/29/2025 CEA: 1.3 01/29/2025 PET: 01/29/2025 1:08 PM EDT 1. FDG avid lymph nodes involving the neck, chest, abdomen and pelvis as described above consistent with metastatic disease. 2. FDG avid lesion involving the liver suggestive of metastatic disease. 3. Abnormal activity involving the L4 vertebral body suggestive of metastatic disease. 4. Ill-defined activity involving the right breast without definitive lesion. Finding is nonspecific. If further evaluation is needed, diagnostic mammography/ultrasound could BE performed. Patient with a history of BRIP1 mutation and significant family history of cancer, including a father with melanoma and two brothers who from pancreatic cancer, presents with metastatic ovarian cancer. In July, patient underwent a mammogram, PET scan, and ultrasound, all of which were unremarkable. However, she later noticed an enlarged right axillary lymph node, prompting further evaluation. A recent PET scan revealed uptake in multiple locations, including the right neck, chest, pelvis, mediastinal nodes, internal mammary nodes, liver surface, and periaortic lymph nodes. A biopsy of the right axillary node was performed. CA-125 level was elevated at 258 U/mL. In April of last year, patient developed a full-body rash and was hospitalized at [facility] for six days. She was treated with prednisone and later diagnosed with eczema, though extensive allergy testing was negative. She has been undergoing full-body phototherapy since May or June, which has helped control the rash. In October, she had an infected uvula treated with antibiotics, followed by a rash on her back that spread to her entire body. Patient reports significant swelling in her right leg and groin, requiring the use of compression garments. She notes that the swelling worsens throughout the day and causes considerable pain, impacting her ability to engage in activities such as hiking. She also mentions that the cartilage in her right hip is gone, and she may need a hip replacement. ALLERGIES/MEDICATIONS: ALLERGIES Allergen Reactions Diphenylguanidine Rash Iodopropynyl Butylc* Rash Wheat Swelling Dairy Aid [Lactase] Swelling Bloating Current Outpatient Medications Medication Sig Dispense Refill triamcinolone acetonide (KENALOG) 0.1 % ointment Apply to affected areas twice daily Wednesday-Wednesday as needed. Avoid face, groin, and armpits (Patient not taking: Reported on 11/20/2024) 453.6 g 1 white petrolatum (AQUAPHOR) 41 % topical ointment Apply to affected area as needed. [address] (PROTONIX) 40 mg tablet Take 1 tablet by mouth daily at 6 am. Patient should start on May 11, 2024. (Patient not taking: Reported on 11/20/2024) 30 tablet 2 Lactobacillus acidophilus (PROBIOTIC ORAL) Take 1 capsule by mouth once daily. Cholecalciferol, Vitamin D3, 25 mcg (1,000 unit) cap Take 1,000 Units by mouth once daily. No current facility-administered medications for this visit. No past medical history on file. No past surgical history on file. FAMILY HISTORY Problem Relation Age of Onset Thyroid Mother Skin Cancer Father 88 Skin Cancer Brother 45 Ovarian cancer Paternal Grandmother 77 Skin Cancer Niece 25 Breast Cancer Maternal Aunt 42 Breast Cancer Paternal Aunt 75 Osteoporosis Paternal Aunt Heart Attack Maternal Uncle 80 Family history of breast, ovarian, uterine or colon cancer: Yes, paternal grandmother - ovarian, maternal aunt - breast, paternal aunt - breast OBSTETRICAL/GYNECOLOGIC HISTORY: OB History Gravida1 Para0 Term0 Preterm0 AB0 Living1 SAB0 IAB0 Ectopic0 Multiple0 Live Births1 Comment: Menarche: 13; Age at 1st : 24; Post menopausal LMP: No LMP recorded. Patient is postmenopausal. Last mammogram: 08/16/2024 - negative SOCIAL HISTORY Social History Tobacco Use Smoking status: Never Smokeless tobacco: Never Vaping Use Vaping status: Never Used Substance Use Topics Alcohol use: Yes Drug use: Never She is a . She resides in [place], [place]. REVIEW OF SYSTEMS: GENERAL: No recent weight loss, fever, chills, malaise or fatigue. HEENT: No changes in hearing or vision, frequent or severe headaches, nose bleeds or other nasal problems. NECK: No lumps, goiter, pain, significant neck swelling, or difficulty swallowing. RESPIRATORY: No shortness of breath, cough, wheezing, recent pneumonia (within last 6 weeks) or recent URI (within 2 weeks). CARDIOVASCULAR: No angina with activity or at rest, lower extremity edema, or palpitations. No recent ND (within 6 months), cardiac stent, cardiac surgery, gangrene, or PVD. No history of hypertension. BREAST: No breast lumps, skin changes, nipple discharge, or adenopathy. GI: No abdominal pain, nausea, vomiting, diarrhea, or constipation. No prior history of esophageal varicies or ascites. Patient denies drinking >2 alcoholic beverages a day. : No dysuria, gross hematuria, urinary frequency, urinary urgency, or incontinence. No history of renal failure, dialysis, or recent UTI (<6 weeks). MUSCULOSKELETAL: No muscle weakness or joint pain. SKIN: No skin lesions, rashes, or itching. PSYCH: No sleep disturbances, depression, bipolar disorder, drug dependency/history of drug dependency, or recent psychosocial stressors. HEMATOLOGY/LYMPHOLOGY: No prolonged bleeding, bruising easily, swollen nodes, or anemia. No prior history of a blood clot or clotting disorder. No prior history of a bleeding disorder. Not on chronic anticoagulant/platelet medications. ENDOCRINE: No cold or heat intolerance, polyuria, polydipsia, polyphagia, goiter, hot flashes or night sweats. No prior diagnosis of diabetes or thyroid disorder. No chronic steroid use. NEURO: No history of paralysis, stroke/TIA, seizures, tremors, syncope, or paresthesias. PHYSICAL EXAMINATION: BP 125/77 Pulse 88 Temp 37.5 ?C (99.5 ?F) Ht 167.6 cm (5' 6 ) Wt 53 kg (116 lb 13.5 oz) SpO2 97% BMI 18.86 kg/m? Female in no acute distress. IMPRESSION/PLAN: I spent a total of 40 minutes on the date of the service which included preparing to see the patient, [id number] patient care, completing clinical documentation, obtaining and/or reviewing separately obtained history, performing a medically appropriate examination, counseling and educating the patient/family/caregiver, ordering medications, tests, or procedures, communicating with other HCPs (not separately reported), independently interpreting results (not separately reported), communicating results to the patient/family/caregiver, and care coordination (not separately reported). 1. 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 Disease is not resectable due to multiple locations. - Initiate chemotherapy with Carboplatin and Paclitaxel. - Obtain a PET scan after 3 cycles (approximately 9 weeks) to assess response. - Discussed potential for surgery post-chemotherapy if disease is controlled. - Consider PARP inhibitor therapy post-chemotherapy. - Signed consent for chemotherapy so authorization for treatment at [place] can be initiated. - Patient to follow-up with Dr. Evangelista at [facility] to start treatment. 2. Ovarian cancer genetic susceptibility (Z15.02) BRIP1 mutation positive; family history significant for BRIP1 mutation in father and two brothers with pancreatic cancer. - Genetic counseling and testing for family members as indicated. 3. Other abnormal tumor markers (R97.8) CA-125 level elevated at 258 U/mL (normal <39 U/mL) on 01/29. - Monitor CA-125 levels to assess treatment response. Thank you for referring her for gynecologic oncology consultation. I will be in touch with you regarding her findings. Provider Attestation: I, Juan Whalen MD, personally performed the services described in this documentation. All medical record entries made by the scribe were at my direction and in my presence. I have reviewed the chart and discharge instructions (if applicable) and agree that the record reflects my personal performance and is accurate and complete. Juan Whalen MD February 06, 2025 6:17 PM I have confirmed and edited as necessary, the history of the present illness (HPI). Interval changes in the history of present illness are noted. I have confirmed and edited as necessary, the PFSH and ROS obtained by others. I saw the patient and personally participated in the gaming components and agree with the documented findings and plan. Sincerely, Juan Whalen M.D. Reviewed and corrected by Juan Whalen M.D. Recording using [employer] software for draft documentation of the visit was discussed with the patient/authorized lead customer service representative; all questions welcomed and answered. Patient/authorized lead customer service representative agreed to proceed CC: Conner Stanley DO (PCP) Allergies As of Date: 02/06/2025 Noted Allergy Reaction DIPHENYLGUANIDINE 11/17/2024 2 - Rash IODOPROPYNYL BUTYLCARBAMATE 11/17/2024 2 - Rash WHEAT 08/24/2019 7 - Swelling DAIRY AID (LACTASE) 08/24/2019 7 - Swelling Comments: Bloating Date Reviewed: 02/06/2025 Reviewed by: Jono Merritt RN - Fully Assessed Reason for Visit: Cancer [19] Primary Visit Diagnosis: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] Other Visit Diagnoses:Ovarian cancer genetic susceptibility [Z15.02] Other abnormal tumor markers [R97.8] Order(s):CA 19-9 [DCLP112] Order #: [id number] FUTURE CA 125 [YWUY417] Order #: [id number] FUTURE Prescriptions as of 02/06/2025 - calcium carbonate/vitamin D3 (CALCIUM CHEW ORAL) Take by mouth. - triamcinolone acetonide (KENALOG) 0.1 % ointment Apply to affected areas twice daily Wednesday-Wednesday as needed. Avoid face, groin, and armpits - white petrolatum (AQUAPHOR) 41 % topical ointment Apply to affected area as needed. - pantoprazole DR (PROTONIX) 40 mg tablet Take 1 tablet by mouth daily at 6 am. Patient should start on May 11, 2024. - Lactobacillus acidophilus (PROBIOTIC ORAL) Take 1 capsule by mouth once daily. - Cholecalciferol, Vitamin D3, 25 mcg (1,000 unit) cap Take 1,000 Units by mouth once daily. 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] 06/25/2023 History of steroid therapy [Z92.241] 10/01/2024 01/29/2025 Abnormal radiographic examination [R93.89] 01/29/2025 01/29/2025 Varicose veins of bilateral lower extremities w*12/08/2022 Other specified noninflammatory disorders of ut*08/08/2024 Mastodynia [N64.4] 03/29/2022 Fatigue [R53.83] 09/26/2024 01/29/2025 H/O skin disorder [Z87.2] 01/29/2025 01/29/2025 Cyst of right breast [N60.01] 03/29/2022 Edema [R60.9] 01/29/2025 01/29/2025 Asymptomatic menopausal state [Z78.0] 03/24/2022 01/29/2025 Acute pharyngitis, unspecified [J02.9] 01/02/2024 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 Encounter Status:Closed by JUAN WHALEN on 02/06/25 PROGRESS Observed: 02/06/2025 1:35 PM Status: COMPLETED Source: [facility] HNO ID: [id number] Author: JUAN WHALEN MD Service: ? Author Type: Physician Type: Progress Notes Filed: 02/06/2025 18:18 Note Text: Gynecologic Oncology [facility] Consultation Re: Mirian Corrales [facility]#: [id number] Date of service: 02/06/2025 Lisandro Vines DO Consultation requested by Dr. Vines for an opinion regarding ovarian cancer. My final recommendations will be communicated back to the requesting physician by way of shared medical record or letter to requesting physician via US mail. Dear Lisandro: Thank you for referring Mirian for consultation. Briefly, she is a 69 year old female has a past medical history of Acute pharyngitis, unspecified (01/02/2024), Age-related osteoporosis without current pathological fracture (05/06/2024), Cyst of right breast (03/29/2022), Eczema (05/08/2024), Eosinophilia (05/08/2024), H/O skin disorder (01/29/2025), 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 She presents today to establish care with urogynaecologist oncology. 08/24/2022 INVITAE TESTIN11/23/2024 Small Bowel Biopsy: 01/15/2025 CT ABD/PELVIS: IMPRESSION: BIBASILAR ATELECTASIS OR SCARRING. TINY INDETERMINANT HEPATIC HYPODENSITIES. NO BOWEL OR URINARY TRACT OBSTRUCTION. ABDOMINAL AND PELVIC LYMPHADENOPATHY. FOLLOW-UP WILL BE NEEDED TO ASSESS FOR THE POSSIBILITY OF MALIGNANCY, PARTICULARLY LYMPHOMA. SUSPECTED UTERINE FIBROID. UNDER DISTENDED URINARY BLADDER WITH APPARENT WALL THICKENING 01/17/2025 Axilla US: 01/18/2025 Axilla Biopsy: 01/24/2025 US FEMALE PELVIS: IMPRESSION: 1. Heterogeneous uterine echotexture with multiple fibroids, one calcified. 2. Right ovarian subcentimeter shadowing echogenic focus. This may represent a calcification however, calcified mass lesion can not be entirely excluded. 01/29/2025 CEA: 1.3 01/29/2025 PET: 01/29/2025 1:08 PM EDT 1. FDG avid lymph nodes involving the neck, chest, abdomen and pelvis as described above consistent with metastatic disease. 2. FDG avid lesion involving the liver suggestive of metastatic disease. 3. Abnormal activity involving the L4 vertebral body suggestive of metastatic disease. 4. Ill-defined activity involving the right breast without definitive lesion. Finding is nonspecific. If further evaluation is needed, diagnostic mammography/ultrasound could BE performed. Patient with a history of BRIP1 mutation and significant family history of cancer, including a father with melanoma and two brothers who from pancreatic cancer, presents with metastatic ovarian cancer. In July, patient underwent a mammogram, PET scan, and ultrasound, all of which were unremarkable. However, she later noticed an enlarged right axillary lymph node, prompting further evaluation. A recent PET scan revealed uptake in multiple locations, including the right neck, chest, pelvis, mediastinal nodes, internal mammary nodes, liver surface, and periaortic lymph nodes. A biopsy of the right axillary node was performed. CA-125 level was elevated at 258 U/mL. In April of last year, patient developed a full-body rash and was hospitalized at [facility] for six days. She was treated with prednisone and later diagnosed with eczema, though extensive allergy testing was negative. She has been undergoing full-body phototherapy since May or June, which has helped control the rash. In October, she had an infected uvula treated with antibiotics, followed by a rash on her back that spread to her entire body. Patient reports significant swelling in her right leg and groin, requiring the use of compression garments. She notes that the swelling worsens throughout the day and causes considerable pain, impacting her ability to engage in activities such as hiking. She also mentions that the cartilage in her right hip is gone, and she may need a hip replacement. ALLERGIES/MEDICATIONS: ALLERGIES Allergen Reactions Diphenylguanidine Rash Iodopropynyl Butylc* Rash Wheat Swelling Dairy Aid [Lactase] Swelling Bloating Current Outpatient Medications Medication Sig Dispense Refill triamcinolone acetonide (KENALOG) 0.1 % ointment Apply to affected areas twice daily Wednesday-Wednesday as needed. Avoid face, groin, and armpits (Patient not taking: Reported on 11/20/2024) 453.6 g 1 white petrolatum (AQUAPHOR) 41 % topical ointment Apply to affected area as needed. [address] (PROTONIX) 40 mg tablet Take 1 tablet by mouth daily at 6 am. Patient should start on May 11, 2024. (Patient not taking: Reported on 11/20/2024) 30 tablet 2 Lactobacillus acidophilus (PROBIOTIC ORAL) Take 1 capsule by mouth once daily. Cholecalciferol, Vitamin D3, 25 mcg (1,000 unit) cap Take 1,000 Units by mouth once daily. No current facility-administered medications for this visit. No past medical history on file. No past surgical history on file. FAMILY HISTORY Problem Relation Age of Onset Thyroid Mother Skin Cancer Father 88 Skin Cancer Brother 45 Ovarian cancer Paternal Grandmother 77 Skin Cancer Niece 25 Breast Cancer Maternal Aunt 42 Breast Cancer Paternal Aunt 75 Osteoporosis Paternal Aunt Heart Attack Maternal Uncle 80 Family history of breast, ovarian, uterine or colon cancer: Yes, paternal grandmother - ovarian, maternal aunt - breast, paternal aunt - breast OBSTETRICAL/GYNECOLOGIC HISTORY: OB History Gravida1 Para0 Term0 Preterm0 AB0 Living1 SAB0 IAB0 Ectopic0 Multiple0 Live Births1 Comment: Menarche: 13; Age at 1st : 24; Post menopausal LMP: No LMP recorded. Patient is postmenopausal. Last mammogram: 08/16/2024 - negative SOCIAL HISTORY Social History Tobacco Use Smoking status: Never Smokeless tobacco: Never Vaping Use Vaping status: Never Used Substance Use Topics Alcohol use: Yes Drug use: Never She is a . She resides in [place], [place]. REVIEW OF SYSTEMS: GENERAL: No recent weight loss, fever, chills, malaise or fatigue. HEENT: No changes in hearing or vision, frequent or severe headaches, nose bleeds or other nasal problems. NECK: No lumps, goiter, pain, significant neck swelling, or difficulty swallowing. RESPIRATORY: No shortness of breath, cough, wheezing, recent pneumonia (within last 6 weeks) or recent URI (within 2 weeks). CARDIOVASCULAR: No angina with activity or at rest, lower extremity edema, or palpitations. No recent ND (within 6 months), cardiac stent, cardiac surgery, gangrene, or PVD. No history of hypertension. BREAST: No breast lumps, skin changes, nipple discharge, or adenopathy. GI: No abdominal pain, nausea, vomiting, diarrhea, or constipation. No prior history of esophageal varicies or ascites. Patient denies drinking >2 alcoholic beverages a day. : No dysuria, gross hematuria, urinary frequency, urinary urgency, or incontinence. No history of renal failure, dialysis, or recent UTI (<6 weeks). MUSCULOSKELETAL: No muscle weakness or joint pain. SKIN: No skin lesions, rashes, or itching. PSYCH: No sleep disturbances, depression, bipolar disorder, drug dependency/history of drug dependency, or recent psychosocial stressors. HEMATOLOGY/LYMPHOLOGY: No prolonged bleeding, bruising easily, swollen nodes, or anemia. No prior history of a blood clot or clotting disorder. No prior history of a bleeding disorder. Not on chronic anticoagulant/platelet medications. ENDOCRINE: No cold or heat intolerance, polyuria, polydipsia, polyphagia, goiter, hot flashes or night sweats. No prior diagnosis of diabetes or thyroid disorder. No chronic steroid use. NEURO: No history of paralysis, stroke/TIA, seizures, tremors, syncope, or paresthesias. PHYSICAL EXAMINATION: BP 125/77 Pulse 88 Temp 37.5 ?C (99.5 ?F) Ht 167.6 cm (5' 6 ) Wt 53 kg (116 lb 13.5 oz) SpO2 97% BMI 18.86 kg/m? Female in no acute distress. IMPRESSION/PLAN: I spent a total of 40 minutes on the date of the service which included preparing to see the patient, [id number] patient care, completing clinical documentation, obtaining and/or reviewing separately obtained history, performing a medically appropriate examination, counseling and educating the patient/family/caregiver, ordering medications, tests, or procedures, communicating with other HCPs (not separately reported), independently interpreting results (not separately reported), communicating results to the patient/family/caregiver, and care coordination (not separately reported). 1. 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 Disease is not resectable due to multiple locations. - Initiate chemotherapy with Carboplatin and Paclitaxel. - Obtain a PET scan after 3 cycles (approximately 9 weeks) to assess response. - Discussed potential for surgery post-chemotherapy if disease is controlled. - Consider PARP inhibitor therapy post-chemotherapy. - Signed consent for chemotherapy so authorization for treatment at [facility] can be initiated. - Patient to follow-up with Dr. Evangelista at [facility] to start treatment. 2. Ovarian cancer genetic susceptibility (Z15.02) BRIP1 mutation positive; family history significant for BRIP1 mutation in father and two brothers with pancreatic cancer. - Genetic counseling and testing for family members as indicated. 3. Other abnormal tumor markers (R97.8) CA-125 level elevated at 258 U/mL (normal <39 U/mL) on 01/29. - Monitor CA-125 levels to assess treatment response. Thank you for referring her for gynecologic oncology consultation. I will be in touch with you regarding her findings. Provider Attestation: I, Juan Whalen MD, personally performed the services described in this documentation. All medical record entries made by the scribe were at my direction and in my presence. I have reviewed the chart and discharge instructions (if applicable) and agree that the record reflects my personal performance and is accurate and complete. Juan Wahlen MD February 06, 2025 6:17 PM I have confirmed and edited as necessary, the history of the present illness (HPI). Interval changes in the history of present illness are noted. I have confirmed and edited as necessary, the PFSH and ROS obtained by others. I saw the patient and personally participated in the gaming components and agree with the documented findings and plan. Sincerely, Juan Whalen M.D. Reviewed and corrected by Juan Whalen M.D. Recording using [employer] software for draft documentation of the visit was discussed with the patient/authorized lead customer service representative; all questions welcomed and answered. Patient/authorized lead customer service representative agreed to proceed CC: Conner Stanley DO (PCP) MAKAYLA Observed: 02/02/2025 12:00 AM Status: COMPLETED Source: [facility] Telephone ([employer] NaturalONCA) MIRIAN CORRALES ([id number]) 1955 F Date Time Provider Department 02/02/25 JUAN WHALEN During your visit today, we recorded the following information about you: Jackie Soliman 02/02/2025 8:28 AM Signed Received External records for Us from [facility] Uploaded into scanned documents Allergies As of Date: 02/02/2025 Noted Allergy Reaction DIPHENYLGUANIDINE 11/17/2024 2 - Rash IODOPROPYNYL BUTYLCARBAMATE 11/17/2024 2 - Rash WHEAT 08/24/2019 7 - Swelling DAIRY AID (LACTASE) 08/24/2019 7 - Swelling Comments: Bloating Date Reviewed: 01/30/2025 Reviewed by: Jono Merritt RN - Fully Assessed Reason for Visit: Received External Records [Other] Prescriptions as of 02/02/2025 - triamcinolone acetonide (KENALOG) 0.1 % ointment Apply to affected areas twice daily Wednesday-Wednesday as needed. Avoid face, groin, and armpits - white petrolatum (AQUAPHOR) 41 % topical ointment Apply to affected area as needed. - pantoprazole DR (PROTONIX) 40 mg tablet Take 1 tablet by mouth daily at 6 am. Patient should start on May 11, 2024. - Lactobacillus acidophilus (PROBIOTIC ORAL) Take 1 capsule by mouth once daily. - Cholecalciferol, Vitamin D3, 25 mcg (1,000 unit) cap Take 1,000 Units by mouth once daily. 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] 06/25/2023 History of steroid therapy [Z92.241] 10/01/2024 01/29/2025 Abnormal radiographic examination [R93.89] 01/29/2025 01/29/2025 Varicose veins of bilateral lower extremities w*12/08/2022 Other specified noninflammatory disorders of ut*08/08/2024 Mastodynia [N64.4] 03/29/2022 Fatigue [R53.83] 09/26/2024 01/29/2025 H/O skin disorder [Z87.2] 01/29/2025 01/29/2025 Cyst of right breast [N60.01] 03/29/2022 Edema [R60.9] 01/29/2025 01/29/2025 Asymptomatic menopausal state [Z78.0] 03/24/2022 01/29/2025 Acute pharyngitis, unspecified [J02.9] 01/02/2024 Encounter Status:Closed by MARVA NINA on 02/02/25 CANCER AG125 SERPL-ACNC Collected: 01/18 1:11 PM Status: F Source: [facility] Order Comment: Specimen Type : BLOOD SPECIMEN Ordering Facility: [facility] Address: [address] [place] [address] TYPE CODE TESTS RESULT OUT OF RANGE REFERENCE UNITS LAB 49186-3([facility] ) Cancer Ag125 SerPl-aCnc 258 High <39 U/mL Result Comment: CA 125 test methodology used is the Electrochemiluminescence Immunoassay by [employer]. Results obtained with different methods or kits cannot be used interchangeably. The reference interval is based on the 95th percentile of 240 apparently healthy premenopausal and postmenopausal women. At a cutoff value of 65 U/mL, the test sensitivity to distinguish ovarian carcinoma (FIGO stage I to IV) versus benign gynecological disease is 79%, with a specificity of 82%. Reference: Cancer Antigen 125 (CA 125 II) [package insert V 1.0 Monegasque]. [facility], [place], [place] (June 2015) Performed By: #### 82069-0 # ### [facility] CLIA [id number] [address] [place] [address] [place] CANCER AG19-9 SERPL-ACNC Collected: 1:11 PM Status: F [facility] Order Comment: Specimen Type : BLOOD SPECIMEN Ordering Facility: [facility] Address: [address] [place] [address] TYPE CODE TESTS RESULT OUT OF RANGE REFERENCE UNITS LAB 83054-3([facility]) Cancer Ag19-9 SerPl-aCnc 10.0 <36.0 U/mL Result Comment: Cancer antig en 19-9 test is used as an aid in monitoring response to treatment or recurrence in patients with established pancreatic, hepatobiliary, or gastrointestinal malignancies. Clinical correlation is required. The CA 19-9 Antigen test was performed using the [employer] DXI paramagnetic particle chemiluminescent immunoassay method. Results obtained with different assay methods or kits cannot be used interchangeably. Performed By: #### 54457-3 # ### [facility] CLIA [id number] [address] [place] [address] OF SAJ[place] CNPN Observed: 02/01/2025 12:00 AM Status: COMPLETED Source: [facility] Telephone ([employer]ONA[employer]) MIRIAN CORRALES ([id number]) 1955 F Date Time Provider Department 02/01/25 JUAN WHALEN During your visit today, we recorded the following information about you: Reta Buckner 02/01/2025 1:29 PM Signed Requested 01/29/25 Pet scan from [facility] AND 01/24/25 US PELVIS from [facility], Pathology was previously sent to [facility]. Allergies As of Date: 02/01/2025 Noted Allergy Reaction DIPHENYLGUANIDINE 11/17/2024 2 - Rash IODOPROPYNYL BUTYLCARBAMATE 11/17/2024 2 - Rash WHEAT 08/24/2019 7 - Swelling DAIRY AID (LACTASE) 08/24/2019 7 - Swelling Comments: Bloating Date Reviewed: 01/30/2025 Reviewed by: Jono Merritt RN - Fully Assessed Reason for Visit: Patient Navigation [0607] Cmt: Requested 01/29/25 Pet scan from [facility] AND 01/24/25 US PELVIS from [facility], Pathology was previously sent to [facility]. Prescriptions as of 02/01/2025 - triamcinolone acetonide (KENALOG) 0.1 % ointment Apply to affected areas twice daily Wednesday-Wednesday as needed. Avoid face, groin, and armpits - white petrolatum (AQUAPHOR) 41 % topical ointment Apply to affected area as needed. - pantoprazole DR (PROTONIX) 40 mg tablet Take 1 tablet by mouth daily at 6 am. Patient should start on May 11, 2024. - Lactobacillus acidophilus (PROBIOTIC ORAL) Take 1 capsule by mouth once daily. - Cholecalciferol, Vitamin D3, 25 mcg (1,000 unit) cap Take 1,000 Units by mouth once daily. 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] 06/25/2023 History of steroid therapy [Z92.241] 10/01/2024 01/29/2025 Abnormal radiographic examination [R93.89] 01/29/2025 01/29/2025 Varicose veins of bilateral lower extremities w*12/08/2022 Other specified noninflammatory disorders of ut*08/08/2024 Mastodynia [N64.4] 03/29/2022 Fatigue [R53.83] 09/26/2024 01/29/2025 H/O skin disorder [Z87.2] 01/29/2025 01/29/2025 Cyst of right breast [N60.01] 03/29/2022 Edema [R60.9] 01/29/2025 01/29/2025 Asymptomatic menopausal state [Z78.0] 03/24/2022 01/29/2025 Acute pharyngitis, unspecified [J02.9] 01/02/2024 Encounter Status:Closed by RETA BUCKNER on 02/01/25 CNNURSE Observed: 01/30/2025 3:20 PM Status: COMPLETED Source: [facility] Nurse Visit (DERMAV) MIRIAN CORRALES ([id number]) 1955 F Date Time Provider Department 01/30/25 3:20 PM NURSE DERM [facility] REJ DERMJUSTYNA During your visit today, we recorded the following information about you: Jono Merritt RN 01/30/2025 3:19 PM Signed Pt is identified by name and birthdate: Yes Allergies reviewed: Yes Medication - prescribed and OTC reviewed and updated: Yes Latex allergy: no. Is the patient having any pain? No 0 on a scale of 0 to 10 See flow sheet for treatment record. Jono Merritt RN January 30, 2025 3:19 PM Allergies As of Date: 01/30/2025 Noted Allergy Reaction DIPHENYLGUANIDINE 11/17/2024 2 - Rash IODOPROPYNYL BUTYLCARBAMATE 11/17/2024 2 - Rash WHEAT 08/24/2019 7 - Swelling DAIRY AID (LACTASE) 08/24/2019 7 - Swelling Comments: Bloating Date Reviewed: 01/30/2025 Reviewed by: Jono Merritt RN - Fully Assessed Reason for Visit: Eczema [925] Primary Visit Diagnosis:Eczema, unspecified type [L30.9] Prescriptions as of 01/30/2025 - triamcinolone acetonide (KENALOG) 0.1 % ointment Apply to affected areas twice daily Wednesday-Wednesday as needed. Avoid face, groin, and armpits - white petrolatum (AQUAPHOR) 41 % topical ointment Apply to affected area as needed. - pantoprazole DR (PROTONIX) 40 mg tablet Take 1 tablet by mouth daily at 6 am. Patient should start on May 11, 2024. - Lactobacillus acidophilus (PROBIOTIC ORAL) Take 1 capsule by mouth once daily. - Cholecalciferol, Vitamin D3, 25 mcg (1,000 unit) cap Take 1,000 Units by mouth once daily. 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.41] 06/25/2023 History of steroid therapy [Z92.241] 10/01/2024 01/29/2025 Abnormal radiographic examination [R93.89] 01/29/2025 01/29/2025 Varicose veins of bilateral lower extremities w*12/08/2022 Other specified noninflammatory disorders of ut*08/08/2024 Mastodynia [N64.4] 03/29/2022 Fatigue [R53.83] 09/26/2024 01/29/2025 H/O skin disorder [Z87.2] 01/29/2025 01/29/2025 Cyst of right breast [N60.01] 03/29/2022 Edema [R60.9] 01/29/2025 01/29/2025 Asymptomatic menopausal state [Z78.0] 03/24/2022 01/29/2025 Acute pharyngitis, unspecified [J02.9] 01/02/2024 Questionnaire: DERMATOLOGY PHOTOTHERAPY TX DX -> eczema ORDERING PHYSICIAN -> Cmt: jacob TX TYPE -> NARROW BAND UVB (MJ/CM2) TX FREQ -> 3X/WK INITIAL DOSE -> 300 MAX DOSE -> 3000 INCREASE BY -> 50 TX# -> 61 DOSE -> 735 DOSE ADJ -> same COMMENTS: -> pink skin Encounter Status:Closed by JONO MERRITT on 01/30/25 PROGRESS Observed: 01/30/2025 3:15 PM Status: COMPLETED Source: [facility] HNO ID: [id number] Author: JONO MERRITT RN Service: ? Author Type: Registered Nurse Type: Progress Notes Filed: 01/30/2025 15:19 Note Text: Pt is identified by name and birthdate: Yes Allergies reviewed: Yes Medication - prescribed and OTC reviewed and updated: Yes Latex allergy: no. Is the patient having any pain? No 0 on a scale of 0 to 10 See flow sheet for treatment record. Jono Merritt RN January 30, 2025 3:19 PM SURGICAL PATHOLOGY REFERENCE LAB CONSULT Collected: 01/29/2025 6:34 PM Status: F Source: [facility] Order Comment: Specimen Type : FORMALIN-FIXED PARAFFIN-EMBEDDED TISSUE SPECIMEN Ordering Facility: [facility] Address: [address] [place], [place] [address] [address] TYPE CODE TESTS RESULT OUT OF RANGE REFERENCE UNITS PATHOLOGY [id number] CASE REPORT Result Comment: Surgical Pat hology Report Case: [id number] Authorizing Provider: Lisandro Vines DO Collected: 01/29/2025 06:34 PM Ordering Location: [facility] Received: 01/29/2025 06:34 PM [facility] Pathologist: Janie Cordero MD Specimen: Slide(s), 10 SLIDES [id number] PATHOLOGY [id number] FINAL DIAGNOSIS Result Comment: Review of ou tside slides: [facility] ([place], [place]), Outside Pathologist Case Number [id number] (01/18/25): Right axillary lymph node biopsy: - Metastatic carcinoma, consistent with high-grade serous carcinoma of Mullerian origin. See comment. NAB/kr 01/30/2025 at 1632 EDT PATHOLOGY [id number] DIAGNOSIS COMMENT Result Comment: We concur wi th the outside pathologist diagnosis and appreciate the opportunity to review this consult material in this 69-year-old patient. Per the accompanying materials, the patient presented with right axillary lymph node adenopathy. The sample shows lymph node tissue involved by metastatic carcinoma. This is confirmed by positive immunohistochemical staining for cytokeratin AE1/AE3, CK7, and PAX-8 submitted by the outside institution. The tumor cells are negative for SOX-10, MARCELLO-3, CDX-2, CK20, synaptophysin, and TTF-1. Further immunohistochemical staining is performed at the [facility] to include the following: P53: diffuse nuclear positive (mutational) WT1: positive Mismatch repair proteins (MLH1, PMS2, MSH6, MSH2): retained (see separate report for full details) A deeper level is also performed. 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 These findings were communicated to Dr. Whalen on 02/07/[address] Cordero. PATHOLOGY CDX2 CLINICAL HISTORY CONSULT REQUESTED PATHOLOGY [facility] FINAL PERFORMING LAB Result Comment: Diagnostic i nterpretation performed at: [facility], [address] [place] [address], [place] [address] CLIA# [id number] Truck Rental Manager: Rishi Lackey MD PATHOLOGY [id number] AP DISCLAIMER Result Comment: Laboratory D eveloped Test (LDT) Disclaimer: Performance characteristics of immunohistochemical, immunofluorescent, and chromogenic in-situ hybridization tests have been determined by the performing laboratory within [facility]'s Conner Garcia Pathology and Laboratory Medicine Department ([facility], [facility], [facility], [facility], [facility], [facility], or [facility]) in a manner consistent with CLIA requirements. One or more of these tests may not have been cleared or approved by the FDA. [facility] is regulated under CLIA as qualified to perform high-complexity testing. These tests are used for clinical purposes. These should not be regarded as investigational or for research. Positive and negative controls stain appropriately. Performed By: #### [id number] # ### [facility] CLIA [id number] [address] [place] [address] [place] PET TUMOR INIT TX STRAT SB-MT Observed: 01/29/2025 12:48 PM Status: COMPLETED Source: [place] [address] Nuclear Medicine Report Signed Patient: Mirian Corrales MR#: [id number] : 1955 Acct:[id number] Age/Sex: 69 / F ADM Date: 01/29/25 Loc: Room: Type: [facility] RCR Attending Dr: Lisandro Vines II DO Copies to: Toribio Michael Jr, DO Timothy J Adamowicz, II, DO Ordering Provider: Lisandro Vines II, DO Date of Service: 01/29/25 PET/PET tumor init tx strat sb-mt: R59.0 - Localized enlarged lymph nodes PET/CT FUSION IMAGING CLINICAL INFORMATION: Cervical cancer. Adenopathy. COMPARISON : CT abdomen and pelvis 01/15/2025 TECHNIQUE: Noncontrasted CT scan from the base of the skull to the upper thigh followed by PET imaging. Multiplanar PET/CT fusion images. Blood Glucose : 102 mg/dL The F-18 FDG 11.05mCi. FINDINGS: Neck: FDG avid bilateral level 3 lymph nodes, SUV max of 3.4. Chest:FDG avid diffuse mediastinal, right hilar and right axillary lymphadenopathy, SUV max of 5.8. No FDG avid lung lesion is present. Mild ill-defined activity involving the right breast without corresponding lesion, SUV max of 2.2. Abdomen/pelvis: Abnormal activity involving the right lobe of liver corresponding to a hypodense lesion seen on the prior CT study SUV max of 3.4. FDG avid right upper quadrant lymph nodes extending along the retroperitoneum inferiorly along the iliac vasculature as seen on the prior CT study, SUV max of 5.7. No significant activity is seen involving the cervical region. Soft tissue/bones: Abnormal activity is seen involving the L4 vertebral body, SUV max 4.3. CT findings: No pneumothorax. No pericardial or pleural effusions. No free air or free fluid. PET/PET tumor init tx strat sb-mt IMPRESSION: 1. FDG avid lymph nodes involving the neck, chest, abdomen and pelvis as described above consistent with metastatic disease. 2. FDG avid lesion involving the liver suggestive of metastatic disease. 3. Abnormal activity involving the L4 vertebral body suggestive of metastatic disease. 4. Ill-defined activity involving the right breast without definitive lesion. Finding is nonspecific. If further evaluation is needed, diagnostic mammography/ultrasound could BE performed. Impression dictated by: Toribio Michael Jr., DBuddyOBuddy 01/29/2025 1:06 PM Dictation Location: [place] [address] Transcribed By: [facility] 01/29/25 1306 Dictated By: Toribio Michael Jr, DO 01/29/25 1248 Signed By: <Electronically signed by Toribio Michael Jr, DO in OV> 01/29/25 1306 COMPLETE BLOOD COUNT AUTO DIFF Collected: 01/29/2025 7:55 AM Status: F Source: [facility] TYPE CODE TESTS RESULT OUT OF RANGE REFERENCE UNITS LAB WBC White Blood Count 5.0 Normal 3.8-11.6 10*3/uL LAB UNWBC Uncorrected WBC 5.0 Normal 3.8-11.6 10*3/uL LAB RBC Red Blood Count 4.08 Normal 3.60-5.00 10*6/u L LAB HGB Hemoglobin 11.7 Low 11.8-15.4 g/dL LAB HCT Hematocrit 34.8 Normal 34.0-46.4 % LAB MCV Mean Corpuscular Volume 85.3 Normal 80-100 fL LAB MCH Mean Corpuscular Hemoglobin 28.7 Normal 24.7-34.3 pg LAB MCHC Mean Corpuscular HGB Conc 33.6 Normal 32.0-35.0 g/dL LAB RDW Red Cell Distribution Width 13.7 Normal 11.9-15.3 % LAB PLT Platelet Count 370 Normal 150-450 10*3/uL LAB MPV Mean Platelet Volume 8.3 Normal 6.3-10.7 fL LAB NE% Neutrophils % (Auto) 74.5 . % LAB LY% Lymphocytes % (Auto) 10.0 . % LAB MO% Monocytes % (Auto) 11.1 . % LAB EO% Eosinophils % (Auto) 3.2 . % LAB BA% Basophils % (Auto) 1.2 . % LAB NRBC% NRBC% 0.0 Normal 0-0.5 /100{WBC} LAB NE# Neutrophils # (Auto) 3.7 Normal 1.8-7.7 10*3/uL LAB LY# Lymphocytes # (Auto) 0.5 Low 1.00-4.8 10*3/uL LAB MO# Monocytes # (Auto) 0.6 Normal 0.0-0.8 10*3/uL LAB EO# Eosinophils # (Auto) 0.2 Normal 0.0-0.45 10*3/uL LAB BA# Basophils # (Auto) 0.1 Normal 0.0-0.2 10*3/uL Result Comment: PERFORMED BY : [place] [address] PATHOLOGIST EDDY CURRENT INSPECTOR LUCIAN HAQ M.D. Performed By: #### CA125 ### # [facility] , #### CEA, CBC #### [address] CARCINOEMBRYONIC ANTIGEN Collected: 01/29/2025 7:55 A M Status: F Source: [facility] TYPE CODE TESTS RESULT OUT OF RANGE REFERENCE UNITS LAB CEA Carcinoembryonic Antigen 1.3 Normal 0.0-3.0 ng/mL Result Comment: Serial tumor marker results determined by assays using different manufacturers or methods may not be comparable. [facility] siding installer and method: OLE UNICEL DXI, 2 SITE IMMUNOENZYMATIC ?SANDWICH? ASSAY. PERFORMED BY: [place] [address] PATHOLOGIST EDDY CURRENT INSPECTOR LUCIAN HAQ M.D. Performed By: #### CA125 ### # [facility] , #### CEA, CBC #### [address] CANCER ANTIGEN 125 Collected: 7:55 AM Status: F Source: [facility] TYPE CODE TESTS RESULT OUT OF RANGE REFERENCE UNITS LAB CA125 Cancer Antigen 125 287.0 High 0.0-38.1 Result Comment: Corbin Novano Ceross Electrochemiluminescence Immunoassay (ECLIA) Values obtained with different assay methods or kits cannot be used interchangeably. Results cannot be interpreted as absolute evidence of the presence or absence of malignant disease. Performed at: [address] [id number] Architecture Technician: Lj Solano PhD, Phone: [phone] PERFORMED BY: [place] [address] PATHOLOGIST EDDY CURRENT INSPECTOR LUCIAN HAQ M.D. Performed By: #### CA125 ### # [facility] , #### CEA, CBC #### [facility] [address] [place] [address] COMPREHENSIVE METABOLIC PANEL Collected: 01/29/2025 7 :55 AM Status: F Source: [facility] TYPE CODE TESTS RESULT OUT OF RANGE REFERENCE UNITS LAB GLU Glucose 100 Normal 70-100 mg/dL Result Comment: Random Gluco se Reference Range is dependent on time and content of last meal. Glucose of more than 200 mg/dL in a nonstressed, ambulatory subject supports the diagnosis of Diabetes Mellitus. ADA recommended reference range LAB BUN Blood Urea Nitrogen 7 Normal 7-25 mg/d L LAB CREATT Creatinine 0.67 Normal 0.60-1.20 mg/dL LAB GFReNR Estimated GFR >60.0 mL/Min LAB NA Sodium 137 Normal 136-145 mmol/L LAB K Potassium 4.3 Normal 3.5-5.1 mmol/L LAB CL Chloride 102 Normal 98-107 mmol/L LAB CO2 Carbon Dioxide 29.6 Normal 21.0-31.0 mmol/L LAB GAP Anion Gap 9.7 Normal 6.0-15.0 meq/L LAB CA Calcium 9.6 Normal 8.6-10.3 mg/dL LAB TP Total Protein 7.4 Normal 6.4-8.9 g/dL LAB ALB Albumin Level 3.9 Normal 3.5-5.7 g/dL LAB GLOB Globulin 3.5 g/dL LAB AGRATIO Albumin/Globulin Ratio 1.1 LAB BILIT Bilirubin,Total 0.6 Normal 0.3-1.0 mg/dL LAB AST Aspartate Amino Transferase 28 Normal 13-39 U/L LAB ALT Alanine Aminotransferase 11 Normal 7-52 U/L LAB ALP Alkaline Phosphatase 70 Normal 34-104 U/L LAB CRCLPHA Creatinine Clr C alc Pharmacy 54.65 Result Comment: PERFORMED BY : [place] [address] PATHOLOGIST EDDY CURRENT INSPECTOR LUCIAN HAQ M.D. Performed By: #### CMP #### [address] GLUCOSE POCT GLUCOMETERS Collected: 01/29/2025 7:54 A M Status: F Source: [facility] TYPE CODE TESTS RESULT OUT OF RANGE REFERENCE UNITS LAB GLUPOC Glucose Poc Glucometers 102 mg/dL Result Comment: Random Gluco se Reference Range is dependent on time and content of last meal. Glucose of more than 200 mg/dL in a nonstressed, ambulatory subject supports the diagnosis of Diabetes Mellitus. PERFORMED BY: [place] [address] PATHOLOGIST EDDY CURRENT INSPECTOR LUCIAN HAQ M.D. Performed By: #### GLULS ### # Point of Care testing , CNNURSE Observed: 01/26/2025 4:00 PM Status: COMPLETED Source: [facility] Nurse Visit (DERMAV) MIRIAN CORRALES ([id number]) 1955 F Date Time Provider Department 01/26/25 4:00 PM NURSE DERM [facility] MORENO CORTES During your visit today, we recorded the following information about you: Jono Merritt RN 01/26/2025 4:02 PM Signed Pt is identified by name and birthdate: Yes Allergies reviewed: Yes Medication - prescribed and OTC reviewed and updated: Yes Latex allergy: no. Is the patient having any pain? No 0 on a scale of 0 to 10 See flow sheet for treatment record. Jono Merritt RN January 26, 2025 4:02 PM Allergies As of Date: 01/26/2025 Noted Allergy Reaction DIPHENYLGUANIDINE 11/17/2024 2 - Rash IODOPROPYNYL BUTYLCARBAMATE 11/17/2024 2 - Rash WHEAT 08/24/2019 7 - Swelling DAIRY AID (LACTASE) 08/24/2019 7 - Swelling Comments: Bloating Date Reviewed: 01/26/2025 Reviewed by: Jono Merritt RN - Fully Assessed Reason for Visit: Light Treatments [1093] Primary Visit Diagnosis:Eczema, unspecified type [L30.9] Prescriptions as of 01/26/2025 - triamcinolone acetonide (KENALOG) 0.1 % ointment Apply to affected areas twice daily Wednesday-Wednesday as needed. Avoid face, groin, and armpits - white petrolatum (AQUAPHOR) 41 % topical ointment Apply to affected area as needed. - pantoprazole DR (PROTONIX) 40 mg tablet Take 1 tablet by mouth daily at 6 am. Patient should start on May 11, 2024. - Lactobacillus acidophilus (PROBIOTIC ORAL) Take 1 capsule by mouth once daily. - Cholecalciferol, Vitamin D3, 25 mcg (1,000 unit) cap Take 1,000 Units by mouth once daily. 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] 05/06/2024 Age-related osteoporosis without current pathol*05/06/2024 Lymphadenopathy [R59.1] 05/06/2024 Eosinophilia [D72.10] 05/08/2024 Eczema [L30.9] 05/08/2024 Peripheral eosinophilia [D72.19] 05/09/2024 Questionnaire: DERMATOLOGY PHOTOTHERAPY TX DX -> eczema ORDERING PHYSICIAN -> Cmt: jacob TX TYPE -> NARROW BAND UVB (MJ/CM2) TX FREQ -> 3X/WK INITIAL DOSE -> 300 MAX DOSE -> 3000 INCREASE BY -> 50 TX# -> 60 DOSE -> 735 DOSE ADJ -> same COMMENTS: -> tolerated Encounter Status:Closed by JONO MERRITT on 01/26/25 PROGRESS Observed: 01/26/2025 3:59 PM Status: COMPLETED Source: [facility] ID: [id number] Author: JONO MERRITT RN Service: ? Author Type: Registered Nurse Type: Progress Notes Filed: 01/26/2025 16:02 Note Text: Pt is identified by name and birthdate: Yes Allergies reviewed: Yes Medication - prescribed and OTC reviewed and updated: Yes Latex allergy: no. Is the patient having any pain? No 0 on a scale of 0 to 10 See flow sheet for treatment record. Jono Merritt RN January 26, 2025 4:02 PM US BX LYMPH NODE Observed: 01/25/2025 9:20 AM Status: COMPLETED Source: [facility] [place] [address] Ultrasound Report Signed Patient: Mirian Corrales MR#: [id number] : 1955 Acct:[id number] Age/Sex: 69 / F ADM Date: 01/18/25 Loc: Room: Type: [facility] Attending Dr: Benedicto Lan DO Ordering Provider: Benedicto Lan Date of Service: 01/18/25 US/US bx lymph node: R59.0, Copies to: Benedicto Lan Ultrasound guided biopsy of right axillary lymph node. Reason for exam: Right axillary lymphadenopathy. FINDINGS: After questions were answered, informed consent was obtained. Initial ultrasound imaging demonstrates an enlarged right axillary lymph node. The skin over the right axilla was prepped and draped in normal sterile fashion. 1% lidocaine utilized for local anesthesia. Using sonographic guidance, a 13-gauge biopsy needle was advanced into the suspicious lymph node and 3 cores were obtained. Hemostasis was achieved after biopsy and been in place. The patient tolerated the procedure well and left the ultrasound suite in stable condition. Please note the patient was monitored by nursing personnel throughout the procedure. US/US bx lymph node IMPRESSION: Successful right axillary lymph node ultrasound-guided biopsy. Impression dictated by: Toribio Michael Jr., D.OBuddy 01/25/2025 9:22 AM Dictation Location: [place] [address] Tech: Kierra Begum Transcribed By: JULIOCESAR 01/25/25921 Dictated By: Toribio Michael Jr, DO 01/25/25919 Signed By: <Electronically signed by Toribio Michael Jr, DO in OV> 01/25/25921 US PELVIS TRANSVAGINAL Observed: 025 1:50 PM Status: F Source: [facility] EPIC Order Comment: US PELVIS-TRA NSVAG IF INDICATED No LMP recorded. EXAM: US PELVIS TRANSVAGINAL HISTORY: Uterine leiomyoma. Postmenopausal. . COMPARISON: U/S pelvis 08/08/2024 TECHNIQUE: Two-dimensional transvaginal grayscale and color Doppler ultrasound imaging of the pelvis was performed. FINDINGS: UTERUS 6.3 x 2.0 x 3.6 cm The uterus is anteflexed in position and demonstrates a heterogeneous echotexture. There is a 0.9 x 0.8 x 0.9 cm (previously 0.8 x 0.6 x 0.7 cm) calcification visualized within the left uterus. A 1.5 cm (previously 0.9 x 0.7 x 0.8 cm) intramural fibroid is visualized within the right uterus. ENDOMETRIUM 0.2 cm The endometrium demonstrates a normal, homogeneous echotexture. RIGHT OVARY 2.4 x 1.7 x 1.9 cm The right ovary demonstrates a normal echotexture with a 0.7 x 0.3 x 0.5 cm (previously 0.6 x 0.5 x 0.4 cm) shadowing echogenic focus. There is normal color Doppler flow. LEFT OVARY 1.6 x 0.9 x 1.3 cm The left ovary demonstrates a normal echotexture. There is normal color Doppler flow. No fluid is present within the cul-de-sac. IMPRESSION: 1. Heterogeneous uterine echotexture with multiple fibroids, one calcified. 2. Right ovarian subcentimeter shadowing echogenic focus. This may represent a calcification however, calcified mass lesion can not be entirely excluded. Interpreted by: Electronically signed by SNEHAL CABRERA II, MD, PHD at 28-Jan-2025 08:20:04 PM [facility] PROGRESS Observed: 01/23/2025 3:26 PM Status: COMPLETED Source: [facility] ID: [id number] Author: KIERRA HARRIS RN Service: ? Author Type: Registered Nurse Type: Progress Notes Filed: 01/23/2025 15:35 Note Text: Pt is identified by name and birthdate: Yes Allergies reviewed: Yes Medication - prescribed and OTC reviewed and updated: Yes Latex allergy: no. Is the patient having any pain? No 0 on a scale of 0 to 10 See flow sheet for treatment record. Kierra Harris RN January 23, 2025 3:27 PM CNNURSE Observed: 01/23/2025 3:20 PM Status: COMPLETED Source: [facility] Nurse Visit (DERMAV) MIRIAN CORRALES ([id number]) 1955 F Date Time Provider Department 01/23/25 3:20 PM NURSE KAYODE [facility] MORENO CORTES During your visit today, we recorded the following information about you: Kierra Harris RN 01/23/2025 3:35 PM Signed Pt is identified by name and birthdate: Yes Allergies reviewed: Yes Medication - prescribed and OTC reviewed and updated: Yes Latex allergy: no. Is the patient having any pain? No 0 on a scale of 0 to 10 See flow sheet for treatment record. Kierra Harris RN January 23, 2025 3:27 PM Allergies As of Date: 01/23/2025 Noted Allergy Reaction DIPHENYLGUANIDINE 11/17/2024 2 - Rash IODOPROPYNYL BUTYLCARBAMATE 11/17/2024 2 - Rash WHEAT 08/24/2019 7 - Swelling DAIRY AID (LACTASE) 08/24/2019 7 - Swelling Comments: Bloating Date Reviewed: 01/23/2025 Reviewed by: Kierra Harris, JOSÉ ANTONIO - Fully Assessed Reason for Visit: Light Treatments [1093] Primary Visit Diagnosis:Eczema, unspecified type [L30.9] Prescriptions as of 01/23/2025 - triamcinolone acetonide (KENALOG) 0.1 % ointment Apply to affected areas twice daily Wednesday-Wednesday as needed. Avoid face, groin, and armpits - white petrolatum (AQUAPHOR) 41 % topical ointment Apply to affected area as needed. - pantoprazole DR (PROTONIX) 40 mg tablet Take 1 tablet by mouth daily at 6 am. Patient should start on May 11, 2024. - Lactobacillus acidophilus (PROBIOTIC ORAL) Take 1 capsule by mouth once daily. - Cholecalciferol, Vitamin D3, 25 mcg (1,000 unit) cap Take 1,000 Units by mouth once daily. 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] 05/06/2024 Age-related osteoporosis without current pathol*05/06/2024 Lymphadenopathy [R59.1] 05/06/2024 Eosinophilia [D72.10] 05/08/2024 Eczema [L30.9] 05/08/2024 Peripheral eosinophilia [D72.19] 05/09/2024 Questionnaire: DERMATOLOGY PHOTOTHERAPY TX DX -> eczema ORDERING PHYSICIAN -> Cmt: jacob TX TYPE -> NARROW BAND UVB (MJ/CM2) TX FREQ -> 3X/WK INITIAL DOSE -> 300 MAX DOSE -> 3000 INCREASE BY -> 50 TX# -> 58 DOSE -> 735 DOSE ADJ -> No increase COMMENTS: -> Patient tolerated well Encounter Status:Closed by KIERRA HARRIS on 01/23/25 CNNURSE Observed: 01/19/2025 3:20 PM Status: COMPLETED Source: [facility] Nurse Visit (DERMAV) MIRIAN CORRALES ([id number]) 1955 F Date Time Provider Department 01/19/25 3:20 PM NURSE DERM [facility] REJ DERMAV During your visit today, we recorded the following information about you: Austin Boss RN 01/19/2025 3:11 PM Signed Pt is identified by name and birthdate: Yes Allergies reviewed: Yes Medication - prescribed and OTC reviewed and updated: Yes Latex allergy: no. Is the patient having any pain? No 0 on a scale of 0 to 10 See flow sheet for treatment record. Austin Boss RN January 19, 2025 3:09 PM Referring Provider: EBONIE JAMES [[id number]] Allergies As of Date: 01/19/2025 Noted Allergy Reaction DIPHENYLGUANIDINE 11/17/2024 2 - Rash IODOPROPYNYL BUTYLCARBAMATE 11/17/2024 2 - Rash WHEAT 08/24/2019 7 - Swelling DAIRY AID (LACTASE) 08/24/2019 7 - Swelling Comments: Bloating Date Reviewed: 01/19/2025 Reviewed by: Austin Boss RN - Fully Assessed Reason for Visit: Light Treatments [1093] Primary Visit Diagnosis:Eczema, unspecified type [L30.9] Prescriptions as of 01/19/2025 - triamcinolone acetonide (KENALOG) 0.1 % ointment Apply to affected areas twice daily Wednesday-Wednesday as needed. Avoid face, groin, and armpits - white petrolatum (AQUAPHOR) 41 % topical ointment Apply to affected area as needed. - pantoprazole DR (PROTONIX) 40 mg tablet Take 1 tablet by mouth daily at 6 am. Patient should start on May 11, 2024. - Lactobacillus acidophilus (PROBIOTIC ORAL) Take 1 capsule by mouth once daily. - Cholecalciferol, Vitamin D3, 25 mcg (1,000 unit) cap Take 1,000 Units by mouth once daily. 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] 05/06/2024 Age-related osteoporosis without current pathol*05/06/2024 Lymphadenopathy [R59.1] 05/06/2024 Eosinophilia [D72.10] 05/08/2024 Eczema [L30.9] 05/08/2024 Peripheral eosinophilia [D72.19] 05/09/2024 Questionnaire: DERMATOLOGY PHOTOTHERAPY TX DX -> eczema ORDERING PHYSICIAN -> Cmt: jacob TX TYPE -> NARROW BAND UVB (MJ/CM2) TX FREQ -> 3X/WK INITIAL DOSE -> 300 MAX DOSE -> 3000 INCREASE BY -> 50 TX# -> 59 DOSE -> 735 DOSE ADJ -> 0 COMMENTS: -> tolerating well Encounter Status:Closed by AUSTIN BOSS on 01/19/25 PROGRESS Observed: 01/19/2025 3:08 PM Status: COMPLETED Source: [facility] ID: [id number] Author: AUSTIN BOSS RN Service: ? Author Type: Registered Nurse Type: Progress Notes Filed: 01/19/2025 15:11 Note Text: Pt is identified by name and birthdate: Yes Allergies reviewed: Yes Medication - prescribed and OTC reviewed and updated: Yes Latex allergy: no. Is the patient having any pain? No 0 on a scale of 0 to 10 See flow sheet for treatment record. Austin Boss RN January 19, 2025 3:09 PM PLATELET COUNT Collected: 8:39 AM Status: F Source: [facility] TYPE CODE TESTS RESULT OUT OF RANGE REFERENCE UNITS LAB PLT Platelet Count 366 Normal 150-450 10*3/uL Result Comment: PERFORMED BY : [place] [address] PATHOLOGIST EDDY CURRENT INSPECTOR LUCIAN HAQ M.D. Performed By: #### PTT, PT, PLT #### [place] [id number] [facility] PROTHROMBIN TIME INR Collected: 01/18/2025 8:39 AM S tatus: F Source: [facility] TYPE CODE TESTS RESULT OUT OF RANGE REFERENCE UNITS LAB R PT Prothrombin Time 13.3 High 9.0-12.9 s Result Comment: A hematocrit value greater than 55% may lead to inaccurate results in coagulation testing. Patients having hematocrit values >55% require a special collection tube for coagulation studies. Please contact the laboratory at [phone] for redraw instructions. LAB INR INR 1.2 Result Comment: INR Therapeu tic Range A) Pre- and Peroperative OAT started two weeks before surgery. NOT HIP SURGERY: 1.5 - 2.5 HIP SURGERY: 2 - 3 B) Primary and secondary prevention of venous THROMBOSIS: 2 - 3 C) Active venous thrombosis, pulmonary embolism and prevention of recurrent venous thrombosis: 2 - 3 D) Prevention of arterial thromboembolism including patients with mechanical heart valves: 3 - 4.5 Performed By: #### PTT, PT, PLT #### [facility] [address] [place], [place] [id number] [facility] PARTIAL THROMBOPLASTIN TIME Collected: 01/18/2025 8:3 9 AM Status: F Source: [facility] TYPE CODE TESTS RESULT OUT OF RANGE REFERENCE UNITS LAB PTT Partial Thromboplastin Time 36.9 High 25.1-36.5 s Result Comment: A hematocrit value greater than 55% may lead to inaccurate results in coagulation testing. Patients having hematocrit values >55% require a special collection tube for coagulation studies. Please contact the laboratory at [phone] for redraw instructions. PERFORMED BY: [address] [address] PATHOLOGIST EDDY CURRENT INSPECTOR LUCIAN HAQ M.D. Performed By: #### PTT, PT, PLT #### [facility] [address] [place], [place] [address] [facility] L Observed: 01/18/2025 12:00 AM Status: F Source: [facility] ----- ------- Specimen: [id number] Received: 01/18/25 Status: BREANN Mendezbhanu Num: [id number] Spec Type: Surgical Subm Dr: Toribio Michael Jr, DO Tissues: A Axillary Lymph Node Biopsy (RIGHT AXILLA) Procedures: SYNAP, HE/2, Gross/Micro L4, AE1-AE3, CDX2, CK20, CK 7, TTF1, PAX-8, SOX-10, GATA3, DIFF QWIK ----- ------- Age/ Patient Sex Location Account Attending Physician ----- ------- Mirian Corrales 69/F UL [id number] Benedicto Lan ----- ------- SPEC NUM: [id number] RECD: 01/18/25-1006 STATUS: BREANN LEAVITT NUM: [id number] MIRNA: 01/18/25-0000 [facility] DR: Toribio Michael Jr, DO ENTERED: 01/18/25-[address]: Benedicto Lan SPEC TYPE: Surgical DEPT: S ENTERED BY: [id number] RECV BY: [id number] ORDERED: SYNAP, HE/2, Gross/Micro L4, AE1-AE3, CDX2, CK20, CK 7, TTF1, PAX-8, SOX-10, GATA3, DIFF QWIK ORDERED: SYNAP, HE/2, Gross/Micro L4, AE1-AE3, CDX2, CK20, CK 7, TTF1, PAX-8, SOX-10, GATA3, DIFF QWIK Supplemental Report Addendum 1 Entered: 02/08/25-6964 Supplemental for findings of consultation report from [facility] -Mesothelial carcinoma, 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 See microscopic description. ----- ------- Specimen: [id number] Received: 01/18/25 Status: BREANN Leavitt Num: [id number] Spec Type: Surgical Subm Dr: Toribio Michael Jr, DO Tissues: A Axillary Lymph Node Biopsy (RIGHT AXILLA) Procedures: SYNAP, HE/2, Gross/Micro L4, AE1-AE3, CDX2, CK20, CK 7, TTF1, PAX-8, SOX-10, GATA3, DIFF QWIK ----- ------- Patient: Mirian Corrales [id number] (Continued) ----- ------- Specimen: [id number] Received: 01/18/25 (Continued) Signed (signature on file) Yazan Perez MD 01/19/25 1452 ----- ------- Specimen: [id number] Received: 01/18/25 Status: BREANN Leavitt Num: [id number] Spec Type: Surgical Subm Dr: Toribio Michael Jr, DO Tissues: A Axillary Lymph Node Biopsy (RIGHT AXILLA) Procedures: SYNAP, HE/2, Gross/Micro L4, AE1-AE3, CDX2, CK20, CK 7, TTF1, PAX-8, SOX-10, GATA3, DIFF QWIK ----- ------- Patient: Mirian Corrales [id number] (Continued) ----- ------- Specimen: [id number] Received: 01/18/25 (Continued) Clinical Information Axillary lymphadenopathy Gross Description Part A is received fresh labeled with the patients name, date of , and RT axilla LN BX is a Telfa pad with 6 pale nieves to yellow-jimenez, delicate needle core biopsy segments, ranging from 0.2 to 1.7 cm in length. Touch prep slides are prepared. The specimen is entirely submitted in a single cassette for routine H E processing. Fixation Time: Time specimen extracted: 949 Time specimen placed in formalin: 1032 Cold ischemic time: 42 minutes Total fixation time: 7 hours (1, ns, [id number] A) Microscopic Description Biopsies show metastatic poorly differentiated carcinoma involving lymph node tissue. The tumor cells are positive for CK7, PAX8, and AE1/AE3 immunostains, but are negative for SOX10, CDX2, GATA3, CK20, synaptophysin, and TTF-1. The morphologic and immunochemical findings raise the possibility of metastasis from gynecologic (M?llerian) origin. Correlation with radiologic features is recommended. Dr Callaway reviewed the slides and agreed with the above diagnosis. CPT Codes 65317, 87020, [id number] ----- ------- ----- ------- Specimen: [id number] Received: 01/18/25 Status: BREANN Leavitt Num: [id number] Spec Type: Surgical Subm Dr: Toribio Michael Jr, DO Tissues: A Axillary Lymph Node Biopsy (RIGHT AXILLA) Procedures: SYNAP, HE/2, Gross/Micro L4, AE1-AE3, CDX2, CK20, CK 7, TTF1, PAX-8, SOX-10, GATA3, DIFF LUISITOK ----- ------- Patient: Mirian Corrales [id number] (Continued) ----- ------- Signed (signature on file) Said MD Ana 01/19/25 1452 US AXILLA Observed: 01/17/2025 10:43 AM Status: COMPLETED Source: [place] [address] Ultrasound Report Signed Patient: Mirian Corrales MR#: [id number] : 1955 Acct:[id number] Age/Sex: 69 / F ADM Date: 01/17/25 Loc: [facility] Room: Type: [facility] Attending Dr: Benedicto Lan DO Ordering Provider: Benedicto Lan Date of Service: 01/17/25 US/US axilla: R22.31 Copies to: Benedicto Lan LIMITED RIGHT AXILLARY ULTRASOUND CLINICAL DATA: Palpable right axillary lump COMPARISON : none Real-time ultrasound evaluation of the right axilla was performed. There are multiple lymph nodes. Some still have a fatty hilus though the cortex is thickened. There is a dominant lymph node with absence of fatty hilus measuring 19 x 14 x 17 mm. The next largest lymph node in close proximity measures 14 x 9 x 14 mm. Patient also describes lumps in the parasternal region. There are additional subcutaneous soft tissue nodules which are thought to be lymph nodes , the largest measuring 10 x 6 x 9 mm. The left axilla was also scanned for comparison and there are additional lymph nodes with thickened cortex, largest measuring 11 x 7 x 8 mm. Patient reported having CT of the abdomen pelvis this week showing showing extensive lymphadenopathy. She also indicated lumps at the groin. The right groin was scanned and additional adenopathy is noted. US/US axilla IMPRESSION: PATHOLOGIC AXILLARY AND INGUINAL LYMPHADENOPATHY. PATIENT ALSO HAS ADENOPATHY ON RECENT CT OF THE ABDOMEN AND PELVIS. THE FINDINGS ARE CONCERNING FOR LYMPHOMA. EITHER THE AXILLA OR THE GROIN ON THE RIGHT WOULD BE AMENABLE TO ULTRASOUND-GUIDED BIOPSY. Findings were discussed with the patient at the time of the exam. Impression dictated by: Megan Phan M.D. 01/17/2025 10:49 AM Dictation Location: [facility] Tech: Maribel Melanie Transcribed By: JULIOCESAR 01/17/25 1049 Dictated By: Megan Phan MD 01/17/25 1043 Signed By: <Electronically signed by MD Megan Phan in OV> 01/17/25 1049 CNNURSE Observed: 01/16/2025 3:20 PM Status: COMPLETED Source: [facility] Nurse Visit (DERMAV) MIRIAN CORRALES ([id number]) 1955 F Date Time Provider Department 01/16/25 3:20 PM NURSE DERM [facility] REJ DERMJUSTYNA During your visit today, we recorded the following information about you: Jono Merritt RN 01/16/2025 3:12 PM Signed Pt is identified by name and birthdate: Yes Allergies reviewed: Yes Medication - prescribed and OTC reviewed and updated: Yes Latex allergy: no. Is the patient having any pain? No 0 on a scale of 0 to 10 See flow sheet for treatment record. Jono Merritt RN January 16, 2025 3:09 PM Referring Provider: EBONIE JAMES [[id number]] Allergies As of Date: 01/16/2025 Noted Allergy Reaction DIPHENYLGUANIDINE 11/17/2024 2 - Rash IODOPROPYNYL BUTYLCARBAMATE 11/17/2024 2 - Rash WHEAT 08/24/2019 7 - Swelling DAIRY AID (LACTASE) 08/24/2019 7 - Swelling Comments: Bloating Date Reviewed: 01/16/2025 Reviewed by: Jono Merritt RN - Fully Assessed Reason for Visit: Light Treatments [1093] Primary Visit Diagnosis:Eczema, unspecified type [L30.9] Prescriptions as of 01/16/2025 - triamcinolone acetonide (KENALOG) 0.1 % ointment Apply to affected areas twice daily Wednesday-Wednesday as needed. Avoid face, groin, and armpits - white petrolatum (AQUAPHOR) 41 % topical ointment Apply to affected area as needed. - pantoprazole DR (PROTONIX) 40 mg tablet Take 1 tablet by mouth daily at 6 am. Patient should start on May 11, 2024. - Lactobacillus acidophilus (PROBIOTIC ORAL) Take 1 capsule by mouth once daily. - Cholecalciferol, Vitamin D3, 25 mcg (1,000 unit) cap Take 1,000 Units by mouth once daily. 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/2024 Age-related osteoporosis without current pathol*05/06/2024 Lymphadenopathy [R59.1] 05/06/2024 Eosinophilia [D72.10] 05/08/2024 Eczema [L30.9] 05/08/2024 Peripheral eosinophilia [D72.19] 05/09/2024 Questionnaire: DERMATOLOGY PHOTOTHERAPY TX DX -> eczema ORDERING PHYSICIAN -> Cmt: jacob SAHU TYPE -> NARROW BAND UVB (MJ/CM2) TX FREQ -> 3X/WK INITIAL DOSE -> 300 MAX DOSE -> 3000 INCREASE BY -> 50 TX# -> 48 DOSE -> 735 DOSE ADJ -> same COMMENTS: -> tolerated Encounter Status:Closed by JONO MERRITT on 01/16/25 PROGRESS Observed: 01/16/2025 3:08 PM Status: COMPLETED Source: [facility] HNO ID: [id number] Author: JONO MERRITT RN Service: ? Author Type: Registered Nurse Type: Progress Notes Filed: 01/16/2025 15:12 Note Text: Pt is identified by name and birthdate: Yes Allergies reviewed: Yes Medication - prescribed and OTC reviewed and updated: Yes Latex allergy: no. Is the patient having any pain? No 0 on a scale of 0 to 10 See flow sheet for treatment record. Jono Merritt RN January 16, 2025 3:[address] ABDOMEN PELVIS W CON Observed: 2024 5:18 PM Status: COMPLETED Source: [facility] [place] [address] CT Scan Report Signed Patient: Mirian Corrales MR#: [id number] : 1955 Acct:[id number] Age/Sex: 69 / F ADM Date: 01/15/25 Loc: CT Room: Type: [facility] Attending Dr: Rey Schrader MD Copies to: Rey Schrader MD Ordering Provider: Rey Schrader MD Date of Service: 01/15/25 CT/CT abdomen pelvis w con: R10.9 - Unspecified abdominal pain CT ABDOMEN AND PELVIS WITH CONTRAST COMPARISON: MRCP 08/12/2022 CLINICAL DATA: Abdominal pain with nausea, vomiting and weight loss. Spiral images were obtained through the abdomen and pelvis following oral and 75 mL of Isovue 300. This CT exam was performed using one or more following dose reduction techniques: Automated exposure control, adjustment of the mA and/or kV according to patient size, or use of iterative reconstruction technique. Limited cuts through the lung bases show linear atelectasis or scarring. There is a trace amount of pericardial fluid. There are small scattered subcentimeter hepatic hypodensities, largest at the dome. There were a few cysts at the time of the comparison MRI however there are more seen today than at that time. The gallbladder is partially contracted. No calcified gallstones are seen. The spleen, pancreas and adrenal glands show no acute findings. There are symmetric renal nephrograms, without hydronephrosis. The abdominal aorta is normal caliber. There is soft tissue density in the retroperitoneum encircling the aorta and extending down through the bifurcation. This is not obvious on the MRI and is suspicious for adenopathy. There is also adenopathy in the periportal region. This is in close proximity to though is believed to be separate from the pancreas. No ascites is seen. The small bowel loops are not distended. There is stool along the colon. There is subtle levoscoliotic curvature and degenerative changes at the spine. Images through the pelvis show normal caliber small bowel. The appendix is not well seen. There is stool at the distal colon. No diverticular disease is noted. The uterus is slightly levoverted and there are calcifications that may be fibroid disease. The urinary bladder is not well-distended and there is slight wall thickening. Mild subcutaneous edema is present. There is no ascites. There are external iliac chain lymph nodes, largest distally on the right measuring up to 3.4 x 2.4 cm in size. There are also a couple lymph nodes at the right groin which are slightly larger. There are mild degenerative changes at the hips. CT/CT abdomen pelvis w con IMPRESSION: BIBASILAR ATELECTASIS OR SCARRING. TINY INDETERMINANT HEPATIC HYPODENSITIES. NO BOWEL OR URINARY TRACT OBSTRUCTION. ABDOMINAL AND PELVIC LYMPHADENOPATHY. FOLLOW-UP WILL BE NEEDED TO ASSESS FOR THE POSSIBILITY OF MALIGNANCY, PARTICULARLY LYMPHOMA. SUSPECTED UTERINE FIBROID. UNDER DISTENDED URINARY BLADDER WITH APPARENT WALL THICKENING. Impression dictated by: Megan Phan M.D. 01/15/2025 5:29 PM Dictation Location: [place] [address] Transcribed By: [facility] 01/15/25 172 Dictated By: Megan Phan MD 01/15/25 1718 Signed By: <Electronically signed by MD Megan Phan in OV> 01/15/25 1729 BLOOD UREA NITROGEN Collected: 01/16/20 12:16 PM Status: F Source: [facility] TYPE CODE TESTS RESULT OUT OF RANGE REFERENCE UNITS LAB BUN Blood Urea Nitrogen 9 Normal 7-25 mg/dL Performed By: #### BUN, CREA T #### [address] CREATININE Collected: 12:16 PM Status: F Source: [facility] TYPE CODE TESTS RESULT OUT OF RANGE REFERENCE UNITS LAB CREATT Creatinine 0.67 Normal 0.60-1.20 mg/dL LAB GFReNR Estimated GFR >60.0 mL/Min Result Comment: PERFORMED BY : [facility] [address] [place] [address] PATHOLOGIST EDDY CURRENT INSPECTOR LUCIAN HAQ M.D. Performed By: #### BUN, CREA T #### [facility] [address] [place] [address] [place] CNNURSE Observed: 01/12/2025 3:20 PM Status: COMPLETED Source: [facility] Nurse Visit (DERMAV) MIRIAN CORRALES ([id number]) 1955 F Date Time Provider Department 01/12/25 3:20 PM NURSE DERM [facility] REJ DERMAV During your visit today, we recorded the following information about you: Sonam Freitas RN 01/12/2025 3:10 PM Signed Pt is identified by name and birthdate: Yes Allergies reviewed: Yes Medication - prescribed and OTC reviewed and updated: Yes Latex allergy: no. Is the patient having any pain? No 0 on a scale of 0 to 10 See flow sheet for treatment record. Sonam Freitas RN January 12, 2025 3:09 PM Referring Provider: EBONIE JAMES [[id number]] Allergies As of Date: 01/12/2025 Noted Allergy Reaction DIPHENYLGUANIDINE 11/17/2024 2 - Rash IODOPROPYNYL BUTYLCARBAMATE 11/17/2024 2 - Rash WHEAT 08/24/2019 7 - Swelling DAIRY AID (LACTASE) 08/24/2019 7 - Swelling Comments: Bloating Date Reviewed: 01/12/2025 Reviewed by: Sonam Freitas RN - Fully Assessed Reason for Visit: Light Treatments [1093] Primary Visit Diagnosis:Eczema, unspecified type [L30.9] Prescriptions as of 01/12/2025 - triamcinolone acetonide (KENALOG) 0.1 % ointment Apply to affected areas twice daily Wednesday-Wednesday as needed. Avoid face, groin, and armpits - white petrolatum (AQUAPHOR) 41 % topical ointment Apply to affected area as needed. - pantoprazole DR (PROTONIX) 40 mg tablet Take 1 tablet by mouth daily at 6 am. Patient should start on May 11, 2024. - Lactobacillus acidophilus (PROBIOTIC ORAL) Take 1 capsule by mouth once daily. - Cholecalciferol, Vitamin D3, 25 mcg (1,000 unit) cap Take 1,000 Units by mouth once daily. 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] 05/06/2024 Age-related osteoporosis without current pathol*05/06/2024 Lymphadenopathy [R59.1] 05/06/2024 Eosinophilia [D72.10] 05/08/2024 Eczema [L30.9] 05/08/2024 Peripheral eosinophilia [D72.19] 05/09/2024 Questionnaire: DERMATOLOGY PHOTOTHERAPY TX DX -> eczema ORDERING PHYSICIAN -> Cmt: Jacob SAHU TYPE -> NARROW BAND UVB (MJ/CM2) TX FREQ -> 3X/WK INITIAL DOSE -> 300 MAX DOSE -> 3000 INCREASE BY -> 50 TX# -> 57 DOSE -> 735 DOSE ADJ -> increased 50 COMMENTS: -> pt tolerated without issue Encounter Status:Closed by SONAM FREITAS on 01/12/25 PROGRESS Observed: 01/12/2025 3:08 PM Status: COMPLETED Source: [facility] ID: [id number] Author: SONAM FREITAS RN Service: ? Author Type: Registered Nurse Type: Progress Notes Filed: 01/12/2025 15:10 Note Text: Pt is identified by name and birthdate: Yes Allergies reviewed: Yes Medication - prescribed and OTC reviewed and updated: Yes Latex allergy: no. Is the patient having any pain? No 0 on a scale of 0 to 10 See flow sheet for treatment record. Sonam Freitas RN January 12, 2025 3:09 PM L Observed: 01/10/2025 10:58 AM Status: F Source: [facility] ----- ------- Specimen: [id number] Received: 01/10/25 Status: BREANN Leavitt Num: [id number] Spec Type: Surgical Subm Dr: Rey Schrader MD Tissues: A Colon Biopsy (SIGMOID POLYPECTOMY) Procedures: Jagjit LARA/Summer Angel ----- ------- Age/ Patient Sex Location Account Attending Physician ----- ------- Mirian Corrales 69/F [id number] Rey Schrader MD ----- ------- SPEC NUM: [id number] RECD: 01/10/25 STATUS: BREANN LEVAITT NUM: [id number] MIRNA: 01/10/25 [facility] DR: Rey Schrader MD ENTERED: 01/10/25 DR: VICKI TYPE: Surgical DEPT: S ENTERED BY: [id number] RECV BY: [id number] ORDERED: HE/2, Gross/Micro L4 ORDERED: HE/2, Gross/Micro L4 Pathological Diagnosis A. Colon, sigmoid polyp (endoscopic polypectomy/biopsy): Fragments of tubular adenoma Clinical Information Screening Gross Description Part A is received in formalin labeled with the patients name, date of , and sigmoid polypectomy are 3 jimenez-nieves, focally erythematous, friable, 0.3, 0.3 and 0.4 cm in greatest dimension polypoid fragments. The specimen is entirely submitted in a single cassette. (1, ns, [id number]) CPT Codes 08230 ----- ------- ----- ------- Specimen: [id number] Received: 01/10/25 Status: BREANN Leavitt Num: [id number] Spec Type: Surgical Subm Dr: Rey Schrader MD Tissues: A Colon Biopsy (SIGMOID POLYPECTOMY) Procedures: HE/Marques, Jagjit/Summer L4 ----- ------- Patient: Mirian Corrales [id number] (Continued) ----- ------- Signed (signature on file) Flo Cobb Jr., MD 01/11/25 165 CNNURSE Observed: 01/09/2025 3:20 PM Status: COMPLETED Source: [facility] Nurse Visit (DERMAV) MIRIAN CORRALES ([id number]) 1955 F Date Time Provider Department 01/09/25 3:20 PM NURSE DERM [facility] REJ DERMJUSTYNA During your visit today, we recorded the following information about you: Austin Boss, JOSÉ ANTONIO 01/09/2025 3:17 PM Signed Pt is identified by name and birthdate: Yes Allergies reviewed: Yes Medication - prescribed and OTC reviewed and updated: Yes Latex allergy: no. Is the patient having any pain? No 0 on a scale of 0 to 10 See flow sheet for treatment record. Austin Boss RN January 09, 2025 3:15 PM Referring Provider: EBONIE JAMES [[id number]] Allergies As of Date: 01/09/2025 Noted Allergy Reaction DIPHENYLGUANIDINE 11/17/2024 2 - Rash IODOPROPYNYL BUTYLCARBAMATE 11/17/2024 2 - Rash WHEAT 08/24/2019 7 - Swelling DAIRY AID (LACTASE) 08/24/2019 7 - Swelling Comments: Bloating Date Reviewed: 01/09/2025 Reviewed by: Austin Boss RN - Fully Assessed Reason for Visit: Light Treatments [1093] Primary Visit Diagnosis:Eczema, unspecified type [L30.9] Prescriptions as of 01/09/2025 - triamcinolone acetonide (KENALOG) 0.1 % ointment Apply to affected areas twice daily Wednesday-Wednesday as needed. Avoid face, groin, and armpits - white petrolatum (AQUAPHOR) 41 % topical ointment Apply to affected area as needed. - pantoprazole DR (PROTONIX) 40 mg tablet Take 1 tablet by mouth daily at 6 am. Patient should start on May 11, 2024. - Lactobacillus acidophilus (PROBIOTIC ORAL) Take 1 capsule by mouth once daily. - Cholecalciferol, Vitamin D3, 25 mcg (1,000 unit) cap Take 1,000 Units by mouth once daily. 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] 05/06/2024 Age-related osteoporosis without current pathol*05/06/2024 Lymphadenopathy [R59.1] 05/06/2024 Eosinophilia [D72.10] 05/08/2024 Eczema [L30.9] 05/08/2024 Peripheral eosinophilia [D72.19] 05/09/2024 Questionnaire: DERMATOLOGY PHOTOTHERAPY TX DX -> eczema ORDERING PHYSICIAN -> Cmt: jacob TX TYPE -> NARROW BAND UVB (MJ/CM2) TX FREQ -> 3X/WK INITIAL DOSE -> 300 MAX DOSE -> 3000 INCREASE BY -> 50 TX# -> 56 DOSE -> 685 DOSE ADJ -> 0 COMMENTS: -> tolerating well Encounter Status:Closed by AUSTIN BOSS on 01/09/25 PROGRESS Observed: 01/09/2025 3:14 PM Status: COMPLETED Source: [facility] HNO ID: [id number] Author: AUSTIN BOSS RN Service: ? Author Type: Registered Nurse Type: Progress Notes Filed: 01/09/2025 15:17 Note Text: Pt is identified by name and birthdate: Yes Allergies reviewed: Yes Medication - prescribed and OTC reviewed and updated: Yes Latex allergy: no. Is the patient having any pain? No 0 on a scale of 0 to 10 See flow sheet for treatment record. Austin Boss RN January 09, 2025 3:15 PM CNNURSE Observed: 01/05/2025 3:20 PM Status: COMPLETED Source: [facility] Nurse Visit (DERMAV) MIRIAN CORRALES ([id number]) 1955 F Date Time Provider Department 01/05/25 3:20 PM NURSE DERM [facility] REJ DERMAV During your visit today, we recorded the following information about you: Sonam Freitas RN 01/05/2025 3:05 PM Signed Pt is identified by name and birthdate: Yes Allergies reviewed: Yes Medication - prescribed and OTC reviewed and updated: Yes Latex allergy: no. Is the patient having any pain? No 0 on a scale of 0 to 10 See flow sheet for treatment record. Sonam Freitas RN January 05, 2025 3:05 PM Referring Provider: EBONIE JAMES [[id number]] Allergies As of Date: 01/05/2025 Noted Allergy Reaction DIPHENYLGUANIDINE 11/17/2024 2 - Rash IODOPROPYNYL BUTYLCARBAMATE 11/17/2024 2 - Rash WHEAT 08/24/2019 7 - Swelling DAIRY AID (LACTASE) 08/24/2019 7 - Swelling Comments: Bloating Date Reviewed: 01/05/2025 Reviewed by: Sonam Freitas RN - Fully Assessed Reason for Visit: Light Treatments [1093] Primary Visit Diagnosis:Eczema, unspecified type [L30.9] Prescriptions as of 01/05/2025 - triamcinolone acetonide (KENALOG) 0.1 % ointment Apply to affected areas twice daily Wednesday-Wednesday as needed. Avoid face, groin, and armpits - white petrolatum (AQUAPHOR) 41 % topical ointment Apply to affected area as needed. - pantoprazole DR (PROTONIX) 40 mg tablet Take 1 tablet by mouth daily at 6 am. Patient should start on May 11, 2024. - Lactobacillus acidophilus (PROBIOTIC ORAL) Take 1 capsule by mouth once daily. - Cholecalciferol, Vitamin D3, 25 mcg (1,000 unit) cap Take 1,000 Units by mouth once daily. 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] 05/06/2024 Age-related osteoporosis without current pathol*05/06/2024 Lymphadenopathy [R59.1] 05/06/2024 Eosinophilia [D72.10] 05/08/2024 Eczema [L30.9] 05/08/2024 Peripheral eosinophilia [D72.19] 05/09/2024 Questionnaire: DERMATOLOGY PHOTOTHERAPY TX DX -> eczema ORDERING PHYSICIAN -> Cmt: Jacob SAHU TYPE -> NARROW BAND UVB (MJ/CM2) TX FREQ -> 3X/WK INITIAL DOSE -> 300 MAX DOSE -> 3000 INCREASE BY -> 50 TX# -> 55 DOSE -> 685 DOSE ADJ -> increased 25 COMMENTS: -> pt tolerated without issue Encounter Status:Closed by SONAM FREITSA on 01/05/25 PROGRESS Observed: 01/05/2025 3:04 PM Status: COMPLETED Source: [facility] HNO ID: [id number] Author: SONAM FREITAS RN Service: ? Author Type: Registered Nurse Type: Progress Notes Filed: 01/05/2025 15:05 Note Text: Pt is identified by name and birthdate: Yes Allergies reviewed: Yes Medication - prescribed and OTC reviewed and updated: Yes Latex allergy: no. Is the patient having any pain? No 0 on a scale of 0 to 10 See flow sheet for treatment record. Sonam Freitas RN January 05, 2025 3:05 PM PROGRESS Observed: 01/02/2025 3:22 PM Status: COMPLETED Source: [facility] HNO ID: [id number] Author: SONAM FREITAS RN Service: ? Author Type: Registered Nurse Type: Progress Notes Filed: 01/02/2025 15:24 Note Text: Pt is identified by name and birthdate: Yes Allergies reviewed: Yes Medication - prescribed and OTC reviewed and updated: Yes Latex allergy: no. Is the patient having any pain? No 0 on a scale of 0 to 10 See flow sheet for treatment record. Sonam Freitas RN January 02, 2025 3:24 PM CNNURSE Observed: 01/02/2025 3:20 PM Status: COMPLETED Source: [facility] Nurse Visit (DERMAV) MIRIAN CORRALES ([id number]) 1955 F Date Time Provider Department 01/02/25 3:20 PM NURSE DERM [facility] REJ DERMAV During your visit today, we recorded the following information about you: Sonam Freitas RN 01/02/2025 3:24 PM Signed Pt is identified by name and birthdate: Yes Allergies reviewed: Yes Medication - prescribed and OTC reviewed and updated: Yes Latex allergy: no. Is the patient having any pain? No 0 on a scale of 0 to 10 See flow sheet for treatment record. Sonam Freitas RN January 02, 2025 3:24 PM Referring Provider: EBONIE JAMES [[id number]] Allergies As of Date: 01/02/2025 Noted Allergy Reaction DIPHENYLGUANIDINE 11/17/2024 2 - Rash IODOPROPYNYL BUTYLCARBAMATE 11/17/2024 2 - Rash WHEAT 08/24/2019 7 - Swelling DAIRY AID (LACTASE) 08/24/2019 7 - Swelling Comments: Bloating Date Reviewed: 01/02/2025 Reviewed by: Sonam Freitas RN - Fully Assessed Reason for Visit: Light Treatments [1093] Primary Visit Diagnosis:Eczema, unspecified type [L30.9] Prescriptions as of 01/02/2025 - triamcinolone acetonide (KENALOG) 0.1 % ointment Apply to affected areas twice daily Wednesday-Wednesday as needed. Avoid face, groin, and armpits - white petrolatum (AQUAPHOR) 41 % topical ointment Apply to affected area as needed. - pantoprazole DR (PROTONIX) 40 mg tablet Take 1 tablet by mouth daily at 6 am. Patient should start on May 11, 2024. - Lactobacillus acidophilus (PROBIOTIC ORAL) Take 1 capsule by mouth once daily. - Cholecalciferol, Vitamin D3, 25 mcg (1,000 unit) cap Take 1,000 Units by mouth once daily. 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] 05/06/2024 Age-related osteoporosis without current pathol*05/06/2024 Lymphadenopathy [R59.1] 05/06/2024 Eosinophilia [D72.10] 05/08/2024 Eczema [L30.9] 05/08/2024 Peripheral eosinophilia [D72.19] 05/09/2024 Questionnaire: DERMATOLOGY PHOTOTHERAPY TX DX -> eczema ORDERING PHYSICIAN -> Cmt: Jacob TX TYPE -> NARROW BAND UVB (MJ/CM2) TX FREQ -> 3X/WK INITIAL DOSE -> 300 MAX DOSE -> 3000 INCREASE BY -> 50 TX# -> 54 DOSE -> 660 DOSE ADJ -> no change COMMENTS: -> pt tolerated without issue Encounter Status:Closed by SONAM FREITAS on 01/02/25 CNNURSE Observed: 12/29/2024 3:20 PM Status: COMPLETED Source: [facility] Nurse Visit (DERMAV) MIRIAN CORRALES ([id number]) 1955 F Date Time Provider Department 12/29/24 3:20 PM NURSE DERM [facility] DERMJUSTYNA During your visit today, we recorded the following information about you: Jono Merritt RN 12/29/2024 3:15 PM Signed Pt is identified by name and birthdate: Yes Allergies reviewed: Yes Medication - prescribed and OTC reviewed and updated: Yes Latex allergy: no. Is the patient having any pain? No 0 on a scale of 0 to 10 See flow sheet for treatment record. Jono Merritt RN December 29, 2024 3:15 PM Referring Provider: EBONIE JAMES [[id number]] Allergies As of Date: 12/29/2024 Noted Allergy Reaction DIPHENYLGUANIDINE 11/17/2024 2 - Rash IODOPROPYNYL BUTYLCARBAMATE 11/17/2024 2 - Rash WHEAT 08/24/2019 7 - Swelling DAIRY AID (LACTASE) 08/24/2019 7 - Swelling Comments: Bloating Date Reviewed: 12/29/2024 Reviewed by: Jono Merritt RN - Fully Assessed Reason for Visit: Light Treatments [1093] Primary Visit Diagnosis:Eczema, unspecified type [L30.9] Prescriptions as of 12/29/2024 - triamcinolone acetonide (KENALOG) 0.1 % ointment Apply to affected areas twice daily Wednesday-Wednesday as needed. Avoid face, groin, and armpits - white petrolatum (AQUAPHOR) 41 % topical ointment Apply to affected area as needed. - pantoprazole DR (PROTONIX) 40 mg tablet Take 1 tablet by mouth daily at 6 am. Patient should start on May 11, 2024. - Lactobacillus acidophilus (PROBIOTIC ORAL) Take 1 capsule by mouth once daily. - Cholecalciferol, Vitamin D3, 25 mcg (1,000 unit) cap Take 1,000 Units by mouth once daily. 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] 05/06/2024 Age-related osteoporosis without current pathol*05/06/2024 Lymphadenopathy [R59.1] 05/06/2024 Eosinophilia [D72.10] 05/08/2024 Eczema [L30.9] 05/08/2024 Peripheral eosinophilia [D72.19] 05/09/2024 Questionnaire: DERMATOLOGY PHOTOTHERAPY TX DX -> eczema ORDERING PHYSICIAN -> Cmt: jacob SAHU TYPE -> NARROW BAND UVB (MJ/CM2) TX FREQ -> 3X/WK INITIAL DOSE -> 300 MAX DOSE -> 3000 INCREASE BY -> 50 TX# -> 53 DOSE -> 660 DOSE ADJ -> 50 COMMENTS: -> tolerating Encounter Status:Closed by JONO MERRITT on 4/11/25 PROGRESS Observed: 12/29/2024 3:13 PM Status: COMPLETED Source: [facility] HNO ID: [id number] Author: JONO MERRITT RN Service: ? Author Type: Registered Nurse Type: Progress Notes Filed: 12/29/2024 15:15 Note Text: Pt is identified by name and birthdate: Yes Allergies reviewed: Yes Medication - prescribed and OTC reviewed and updated: Yes Latex allergy: no. Is the patient having any pain? No 0 on a scale of 0 to 10 See flow sheet for treatment record. Jono Merritt RN December 29, 2024 3:15 PM CNPN Observed: 12/29/2024 12:00 AM Status: COMPLETED Source: [facility] Telephone (DERMMN) MIRIAN CORRALES ([id number]) 1955 F Date Time Provider Department 12/29/24 EBONIE JAMES DERMMN During your visit today, we recorded the following information about you: Libby Barber 12/29/2024 8:30 AM Signed [employer] form for light therapy, has been completed and faxed to [employer] Ebonie Lorenzana 01/18/2025 11:46 AM Signed Received fax [facility] requesting provider dates form and also requesting office visit notes and front and back copy of the insurance card. Faxed to [phone]. Allergies As of Date: 12/29/2024 Noted Allergy Reaction DIPHENYLGUANIDINE 11/17/2024 2 - Rash IODOPROPYNYL BUTYLCARBAMATE 11/17/2024 2 - Rash WHEAT 08/24/2019 7 - Swelling DAIRY AID (LACTASE) 08/24/2019 7 - Swelling Comments: Bloating Date Reviewed: 12/29/2024 Reviewed by: Jono Merritt RN - Fully Assessed Reason for Visit: Forms [913] Prescriptions as of 01/18/2025 - triamcinolone acetonide (KENALOG) 0.1 % ointment Apply to affected areas twice daily Wednesday-Wednesday as needed. Avoid face, groin, and armpits - white petrolatum (AQUAPHOR) 41 % topical ointment Apply to affected area as needed. - pantoprazole DR (PROTONIX) 40 mg tablet Take 1 tablet by mouth daily at 6 am. Patient should start on May 11, 2024. - Lactobacillus acidophilus (PROBIOTIC ORAL) Take 1 capsule by mouth once daily. - Cholecalciferol, Vitamin D3, 25 mcg (1,000 unit) cap Take 1,000 Units by mouth once daily. 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] 05/06/2024 Age-related osteoporosis without current pathol*05/06/2024 Lymphadenopathy [R59.1] 05/06/2024 Eosinophilia [D72.10] 05/08/2024 Eczema [L30.9] 05/08/2024 Peripheral eosinophilia [D72.19] 05/09/2024 Encounter Status:Closed by EBONIE LORENZANA on 01/18/25 CNNURSE Observed: 12/26/2024 10:40 AM Status: COMPLETED Source: [facility] Nurse Visit (DERMAV) MIRIAN CORRALES ([id number]) 1955 F Date Time Provider Department 12/26/24 10:40 AM NURSE DERM [facility] During your visit today, we recorded the following information about you: Jono Merritt RN 12/26/2024 10:35 AM Signed Pt is identified by name and birthdate: Yes Allergies reviewed: Yes Medication - prescribed and OTC reviewed and updated: Yes Latex allergy: no. Is the patient having any pain? No 0 on a scale of 0 to 10 See flow sheet for treatment record. Jono Merritt RN December 26, 2024 10:35 AM Referring Provider: EBONIE JAMES [[id number]] Allergies As of Date: 12/26/2024 Noted Allergy Reaction DIPHENYLGUANIDINE 11/17/2024 2 - Rash IODOPROPYNYL BUTYLCARBAMATE 11/17/2024 2 - Rash WHEAT 08/24/2019 7 - Swelling DAIRY AID (LACTASE) 08/24/2019 7 - Swelling Comments: Bloating Date Reviewed: 12/26/2024 Reviewed by: Jono Merritt RN - Fully Assessed Reason for Visit: Light Treatments [1093] Primary Visit Diagnosis:Eczema, unspecified type [L30.9] Prescriptions as of 12/26/2024 - triamcinolone acetonide (KENALOG) 0.1 % ointment Apply to affected areas twice daily Wednesday-Wednesday as needed. Avoid face, groin, and armpits - white petrolatum (AQUAPHOR) 41 % topical ointment Apply to affected area as needed. - pantoprazole DR (PROTONIX) 40 mg tablet Take 1 tablet by mouth daily at 6 am. Patient should start on May 11, 2024. - Lactobacillus acidophilus (PROBIOTIC ORAL) Take 1 capsule by mouth once daily. - Cholecalciferol, Vitamin D3, 25 mcg (1,000 unit) cap Take 1,000 Units by mouth once daily. 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/2024 Age-related osteoporosis without current pathol*05/06/2024 Lymphadenopathy [R59.1] 05/06/2024 Eosinophilia [D72.10] 05/08/2024 Eczema [L30.9] 05/08/2024 Peripheral eosinophilia [D72.19] 05/09/2024 Questionnaire: DERMATOLOGY PHOTOTHERAPY TX DX -> eczema ORDERING PHYSICIAN -> Cmt: jacob TX TYPE -> NARROW BAND UVB (MJ/CM2) TX FREQ -> 3X/WK INITIAL DOSE -> 300 MAX DOSE -> 3000 INCREASE BY -> 50 TX# -> 52 DOSE -> 310 DOSE ADJ -> same COMMENTS: -> tolerating Encounter Status:Closed by JONO MERRITT on 12/26/24 PROGRESS Observed: 12/26/2024 10:34 AM Status: COMPLETED Source: [facility] HNO ID: [id number] Author: JONO MERRITT RN Service: ? Author Type: Registered Nurse Type: Progress Notes Filed: 12/26/2024 10:35 Note Text: Pt is identified by name and birthdate: Yes Allergies reviewed: Yes Medication - prescribed and OTC reviewed and updated: Yes Latex allergy: no. Is the patient having any pain? No 0 on a scale of 0 to 10 See flow sheet for treatment record. Jono Merritt RN December 26, 2024 10:35 AM PROGRESS Observed: 12/20/2024 1:58 PM Status: COMPLETED Source: [facility] HNO ID: [id number] Author: AUSTIN BOSS RN Service: ? Author Type: Registered Nurse Type: Progress Notes Filed: 12/20/2024 14:01 Note Text: Pt is identified by name and birthdate: Yes Allergies reviewed: Yes Medication - prescribed and OTC reviewed and updated: Yes Latex allergy: no. Is the patient having any pain? No 0 on a scale of 0 to 10 See flow sheet for treatment record. Austin Boss RN December 20, 2024 1:58 PM CNNURSE Observed: 12/20/2024 1:40 PM Status: COMPLETED Source: [facility] Nurse Visit (DERMAV) MIRIAN CORRALES ([id number]) 1955 F Date Time Provider Department 12/20/24 1:40 PM NURSE DERM [facility] DERMA[facility] During your visit today, we recorded the following information about you: Austin Boss RN 12/20/2024 2:01 PM Signed Pt is identified by name and birthdate: Yes Allergies reviewed: Yes Medication - prescribed and OTC reviewed and updated: Yes Latex allergy: no. Is the patient having any pain? No 0 on a scale of 0 to 10 See flow sheet for treatment record. Austin Boss RN December 20, 2024 1:58 PM Allergies As of Date: 12/20/2024 Noted Allergy Reaction DIPHENYLGUANIDINE 11/17/2024 2 - Rash IODOPROPYNYL BUTYLCARBAMATE 11/17/2024 2 - Rash WHEAT 08/24/2019 7 - Swelling DAIRY AID (LACTASE) 08/24/2019 7 - Swelling Comments: Bloating Date Reviewed: 12/20/2024 Reviewed by: Austin Boss RN - Fully Assessed Reason for Visit: Light Treatments [1093] Primary Visit Diagnosis:Eczema, unspecified type [L30.9] Prescriptions as of 12/20/2024 - triamcinolone acetonide (KENALOG) 0.1 % ointment Apply to affected areas twice daily Wednesday-Wednesday as needed. Avoid face, groin, and armpits - white petrolatum (AQUAPHOR) 41 % topical ointment Apply to affected area as needed. - pantoprazole DR (PROTONIX) 40 mg tablet Take 1 tablet by mouth daily at 6 am. Patient should start on May 11, 2024. - Lactobacillus acidophilus (PROBIOTIC ORAL) Take 1 capsule by mouth once daily. - Cholecalciferol, Vitamin D3, 25 mcg (1,000 unit) cap Take 1,000 Units by mouth once daily. 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/2024 Age-related osteoporosis without current pathol*05/06/2024 Lymphadenopathy [R59.1] 05/06/2024 Eosinophilia [D72.10] 05/08/2024 Eczema [L30.9] 05/08/2024 Peripheral eosinophilia [D72.19] 05/09/2024 Questionnaire: DERMATOLOGY PHOTOTHERAPY TX DX -> excema ORDERING PHYSICIAN -> Cmt: jacob TX TYPE -> NARROW BAND UVB (MJ/CM2) TX FREQ -> 3X/WK INITIAL DOSE -> 300 MAX DOSE -> 3000 INCREASE BY -> 50 TX# -> 51 DOSE -> 610 DOSE ADJ -> increase by 50 COMMENTS: -> tolerating well Encounter Status:Closed by AUSTIN BOSS on 12/20/24 PROGRESS Observed: 12/18/2024 3:11 PM Status: COMPLETED Source: [facility] HNO ID: [id number] Author: AUSTIN BOSS RN Service: ? Author Type: Registered Nurse Type: Progress Notes Filed: 12/18/2024 15:14 Note Text: Pt is identified by name and birthdate: Yes Allergies reviewed: Yes Medication - prescribed and OTC reviewed and updated: Yes Latex allergy: no. Is the patient having any pain? No 0 on a scale of 0 to 10 See flow sheet for treatment record. Austin Boss RN December 18, 2024 3:12 PM CNNURSE Observed: 12/18/2024 3:00 PM Status: COMPLETED Source: [facility] Nurse Visit (DERMAV) MIRIAN CORRALES ([id number]) 1955 F Date Time Provider Department 12/18/24 3:00 PM NURSE DERM [facility] DERMAV During your visit today, we recorded the following information about you: Austin Boss RN 12/18/2024 3:14 PM Signed Pt is identified by name and birthdate: Yes Allergies reviewed: Yes Medication - prescribed and OTC reviewed and updated: Yes Latex allergy: no. Is the patient having any pain? No 0 on a scale of 0 to 10 See flow sheet for treatment record. Austin Boss RN December 18, 2024 3:12 PM Allergies As of Date: 12/18/2024 Noted Allergy Reaction DIPHENYLGUANIDINE 11/17/2024 2 - Rash IODOPROPYNYL BUTYLCARBAMATE 11/17/2024 2 - Rash WHEAT 08/24/2019 7 - Swelling DAIRY AID (LACTASE) 08/24/2019 7 - Swelling Comments: Bloating Date Reviewed: 12/18/2024 Reviewed by: Austin Boss, JOSÉ ANTONIO - Fully Assessed Reason for Visit: Light Treatments [1093] Primary Visit Diagnosis:Eczema, unspecified type [L30.9] Prescriptions as of 12/18/2024 - triamcinolone acetonide (KENALOG) 0.1 % ointment Apply to affected areas twice daily Wednesday-Wednesday as needed. Avoid face, groin, and armpits - white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] 05/06/2024 Age-related osteoporosis without current pathol*05/06/2024 Lymphadenopathy [R59.1] 05/06/2024 Eosinophilia [D72.10] 05/08/2024 Eczema [L30.9] 05/08/2024 Peripheral eosinophilia [D72.19] 05/09/2024 Questionnaire: DERMATOLOGY PHOTOTHERAPY TX DX -> spongiotic dermatitis ORDERING PHYSICIAN -> Cmt: Jacob TX TYPE -> NARROW BAND UVB (MJ/CM2) TX FREQ -> 3X/WK INITIAL DOSE -> 220 MAX DOSE -> 3000 INCREASE BY -> 25-50 TX# -> 37 DOSE -> 270 DOSE ADJ -> no change COMMENTS: -> pt tolerated without issue Encounter Status:Closed by SONAM FREITAS on 11/17/24 PROGRESS Observed: 11/17/2024 3:07 PM Status: COMPLETED Source: [facility] ID: [id number] Author: SONAM FREITAS RN Service: ? Author Type: Registered Nurse Type: Progress Notes Filed: 11/17/2024 15:09 Note Text: Pt is identified by name and birthdate: Yes Allergies reviewed: Yes Medication - prescribed and OTC reviewed and updated: Yes Latex allergy: no. Is the patient having any pain? No 0 on a scale of 0 to 10 See flow sheet for treatment record. Protective eyewear given and worn. Sonam Freitas RN November 17, 2024 3:08 PM PROGRESS Observed: 11/17/2024 12:05 PM Status: COMPLETED Source: [facility] HNO ID: [id number] Author: VOILETTA IBRAHIM RN Service: ? Author Type: Registered Nurse Type: Progress Notes Filed: 12/03/2024 20:42 Note Text: To view your list, go to [email or web address] Allergen Search Code: [email or web address] Allergen Search Code: [email or web address] Violetta Ibrahim RN CNOV Observed: 11/17/2024 11:30 AM Status: COMPLETED Source: [facility] Office Visit (DERMMN) MIRIAN CORRALES ([id number]) 1955 F Date Time Provider Department 11/17/24 11:30 AM JES LATHAM DERMMN During your visit today, we recorded the following information about you: Jes Latham MD 12/03/2024 8:42 PM Signed Department of Dermatology [facility]. 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 Contact dermatitis due to preservative (L25.8) - Patch testing revealed a 1+ reaction to iodopropynyl butylcarbamate, a preservative previously used in unscented body washes and other products. - Discussed that this preservative is less commonly used now and is not present in any of the patient's current products. - Considered a past relevant reaction, unlikely to be contributing to current dermatitis. 2. 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 - Discussed that this allergen is not likely present in current clothing or products. - Considered a past relevant reaction, unlikely to be contributing to current dermatitis. 3. Rash and nonspecific skin eruption (R21) - Current rash is not attributed to allergic contact dermatitis based on patch test results. - Provided a list of safe products to use and avoid. - Refilled triamcinolone ointment, ensuring the ointment form is provided. - Advised to continue using Vaseline and Aveeno during flare-ups. - Recommended resuming phototherapy, with areas covered until mid-next week. - Referral to fish straightener Dr. Tamera Evans for further evaluation of potential food allergies. - Follow-up with Dr. Ingram in a couple of months to monitor skin condition. Positive reactions included: Rubber Diphenylguanidine (DPG, tested at 1% in petrolatum) Class: Rubber chemical This carbamate is an accelerator used to improve the plasticity of rubber during the vulcanization process. It is commonly found in rubber gloves and multiple other rubber-containing products. Avoidance is difficult, but certain accelerator-free gloves can be recommended (a separate handout may be provided to the patient). We believe this represents an allergic contact dermatitis allergen [A1] of past clinical relevance [R4], and patient is instructed to avoid in the future. Rationale: 1+ reaction, had issues with elastic bands in clothing in the past Occupational source: No [L6] Preservatives: Iodopropynyl butylcarbamate (IPBC, tested at 0.5% in petrolatum) Class: Preservative This is a preservative used in many personal care products, such as body washes, cosmetics and pre-moistened toilet paper and wipes. It can also be found in industrial products such as paints, lubricants, and cooling fluids. We believe this represents an allergic contact dermatitis allergen [A1] of past clinical relevance [R4], and patient is instructed to avoid in the future. Rationale: 1+ reaction, previously used Dove body wash that might've contained this ingredient. Not identified today in patients' personal care products. Occupational source: No [L6] Medication Management: Continue triamcinolone 0.1% ointments directed, refilled. We discussed the above allergens and ways to avoid them. Information regarding a safe product list (CAMP), as well as avoidance sheets were provided to the patient and discussed with the patient - Will place referral to Allergy for skin prick testing, rash triggers with food Additional instructions: Patient Instructions Thank you for allowing us to perform patch testing for you! It has been a pleasure to meet you. Our entire staff hopes that the information we discovered during your patch testing will help your referring physician or other health care provider to better plan any needed future treatment. We recommend that you make sure you arrange follow-up with your referring provider in the next several months to discuss your results. While you can certainly shower after today's visit, we recommend that you avoid scrubbing the ink off the back for the next several days. In the rare chance that a new reaction occurs (a late reaction), residual ink can help us identify the allergen. If you notice a new small area of rash within the patch testing sites, please take several photos of the area and contact our office for additional instructions. Our telephone number is [phone]. - Resume phototherapy sessions as scheduled, ensuring to cover the treated areas until mid-next week. - Refill triamcinolone ointment at the pharmacy; ensure you receive the ointment form, not the cream. - Schedule a follow-up appointment with Dr. Ingram in a couple of months. - Schedule an appointment with an fish straightener to discuss potential food allergies. - Shower today, but avoid scrubbing off the ink from the testing; let it wear off naturally over the next few days. - Monitor for any new itchy red spots; if any appear, take pictures and report them. - Use the provided list of safe products for skincare; avoid trying new products not on the list. We identified reactions that both appear to be allergies and may be significant. What next? You are provided today with a folder that was personalized for you by our nurses and clinical staff. It will contain: A list of all of the allergens to which we tested you. On the list you will find the chemical name of the allergen, as well as test results for 48 hours (we reviewed your photographs when provided) and 96 hours (today). The following may help you understand the test results: NT = Not tested. This is generally because the allergens are unavailable from our current supplier, or we elected not to test with these specific allergens. ? = equivocal reaction. This is a borderline-positive reaction, showing just the slightest response at the area. Your technical publications manager will decide whether this is relevant for your particular situation. In some instances it may be decided that the reaction is relevant, but it may also be considered irrelevant, based on the experience and judgement of your technical publications manager. 1+, 2+, 3+ = These are increasingly strong, positive reactions. These are often relevant for a patient, but we will discuss each positive finding with you to help establish whether it is relevant. IR = Irritant reaction. With a few exceptions, these reactions are generally not relevant. Your technical publications manager will carefull consider these irritant reactions and discuss with you their relevance. Information regarding each of the positive, relevant reactions. These avoidance sheets briefly explain important information about each allergen, including the kinds of products where it is likely to be found. Information about accessing a list of safe products, personalized for you. We use a system produced by the [place] [employer]. You will be given a set of codes that can be used to access the database on an ongoing basis. A very helpful tool that you can access from the [employer] for your mobile device is the [employer]. Your list can be carried with you while shopping for products that should be safe for you to use. The icon should look like this: The use of the safe product list is extremely important for anyone dealing with an allergic contact dermatitis. While not every safe product will be on the list, those that are on the list should be safe to use. It is important that you choose only the exact product on the list. While one product from a particular company may appear on the safe product list, a similar product from that company that does not appear on the list is likely to be unsafe for you. We recommend that you aggressively use only the safe product list for the next 2-3 months. Avoid contact with any products that are not on your personal safe list. If you are significantly improved by avoiding these products, then it implies that the allergens identified on the testing were relevant and important. Return in about 3 months (around 02/14/2025) for rash f/u with Dr. James. CC: Final patch test reading and interpretation. HPI: Ms. Corrales presents for final patch test reading. Patches removed 2 days ago. Tolerated the patch test process well. + Flare of dermatitis on arms. PMH: Unchanged from previous visit ROS: Patient feels generally well. No additional skin complaints. Mirian Corrales is a 69-year-old female presenting for follow-up on recent patch testing and evaluation of a rash. Mirian reports a flare-up of a pruritic rash, which she believes is related to food allergies. The rash is primarily located on her arms and lower back. She describes sudden, intense pruritus episodes, stating, I'd be sitting and all of a sudden I'd have a burst of itch. She has been using triamcinolone cream, which she feels is less effective than the ointment she previously used. She also uses Vaseline and Aveeno for symptom relief. She denies any issues with the recent patch testing. She has a follow-up appointment with a bellman driver on November 23 to address potential food allergies. She is currently undergoing phototherapy and has sessions scheduled through December. She is also under the care of Dr. James, her technical publications manager. PE: Patient appears generally well. Results from Patch Tests are documented in the photos and in the Results Smartform links below. General: No acute distress. Skin: Scattered excoriations, mild induration, mild erythema. Tests - (Today) Patch Testing: - Positive (1+) reaction to diphenylguanidine. - Positive (1+) reaction to iodopropynyl butylcarbamate. 48 hour photograph hyperlinks (if submitted by patient or obtained in the office: [id number] Photographs from today's visit (96 hours) Derm Clinical Image - Scan on 11/17/2024 11:31 AM Derm Clinical Image - Scan on 11/17/2024 11:31 AM Derm Clinical Image - Scan on 11/17/2024 11:31 AM Hyperlinks to Results Smartform: Miscellaneous Document - Scan on 11/17/2024 12:09 PM: Patch Testing DERM PATCH TESTING (Last 720 Hours) Allergy Testing Row Name 11/17/24 1200 11/15/24 1206 OTHER Benzocaine 5.0% pet Negative -KIMBERLY Negative -KIMBERLY 2-mercaptobenzothiazole 1.0% pet Negative -KIMBERLY Negative -KIMBERLY Colophonium (rosin) 20.0% pet Negative -KIMBERLY Negative -KIMBERLY 4-phenylenediamine 1.0% pet Negative -KIMBERLY Negative -KIMBERLY Dimethylaminopropylamine (DMAPA) 1.0% aq Negative -KIMBERLY Negative -IKMBERLY Fragrance Mix II 14.0% pet Negative -KIMEBRLY Negative -KIMBERLY Lanolin alcohol (Amerchol L101) 50% pet Negative -KIMBERLY Negative -KIMBERLY Carba Mix 3.0% pet Negative -KIMBERLY Negative -KIMBERLY Neomycin sulfate 20.0% pet Negative -KIMBERLY Negative -KIMBERLY Thiuram mix 1.0% pet Negative -KIMBERLY Negative -KIMBERLY Benzalkonium Chloride 0.1% aq Negative -KIMBERLY Negative -KIMBERLY Ethylenediamine Dihydrochloride 1.0 pet Negative -KIMBERLY Negative -KIMBERLY Bisphenol A Epoxy Resin 1.0% pet Negative -KIMBERLY Negative -KIMBERLY Quaternium 15, 2.0% pet Negative -KIMBERLY Negative -KIMBERLY 3-kxjv-hbrrxzvqjos formaldehyde resin 1.0% pet Negative -KIMBERLY Negative -KIMBERLY Ethylhexylglycerin 5.0% pet Negative -KIMBERLY Negative -KIMBERLY Black rubber mix 0.6% pet Negative -KIMBERLY Negative -KIMBERLY Potassium dichromate 0.25% pet Negative -KIMBERLY Negative -KIMBERLY Balsam of Christopher (Myroxylon pereirae resin) 25.0% pet Negative -KIMBERLY Negative -KIMBERLY Nickel sulfate hexahydrate 5.0% pet Negative -KIMBERLY Negative -KIMBERLY Diazolidinyl urea (Germall II) 1.0% pet Negative -KIMBERLY Negative -KIMBERLY DMDM hydantoin (Germall 115) 1.0% pet Negative -KIMBERLY Negative -KIMBERLY Imidazolidinyl urea 2.0% pet Negative -KIMBERLY Negative -KIMBERLY Bacitracin 20.0% pet Negative -KIMBERLY Negative -KIMBERLY Mixed dialkyl thioureas 1.0% Negative -KIMBERLY Negative -KIMBERLY Methylchloroisothiazolinone/methylisothiazolinone 0.02% aq Negative -KIMBERLY Negative -KIMBERLY Paraben mix 12.0% pet Negative -KIMBERLY Negative -KIMBERLY Cinnamic aldehyde 1.0% pet Negative -KIMBERLY Negative -KIMBERLY Fragrance Mix 1, 8.0% pet Negative -KIMBERLY Negative -KIMBERLY Amidoamine (stearamidopropyl dimethylamine) 0.1% aq Negative -KIMBERLY Negative -KIMBERLY 1-Fzlfb-5-nitropropane-1,3-diol (Bronopol) 0.5% pet Negative -KIMBERLY Negative -KIMBERLY Sesquiterpene lactone mix 0.1% pet Negative -KIMBERLY Negative -KIMBERLY 2-Hydroxethyl methacrylate 2.0% pet Negative -KIMBERLY Negative -KIMBERLY Hydroperoxides of linalool 1.0% pet Negative -KIMBERLY Negative -KIMBERLY Benzophenone-3, 10.0% pet (Oxybenzone or 7-eeqrfnn-0-methoxy-benzophenone) Negative -KIMBERLY Negative -KIMBERLY Chloroxylenol (4-Chloro-3,5-xylenol) 1.0% pet Negative -KIMBERLY Negative -KIMBERLY Lauryl glucoside 3.0% pet Negative -KIMBERLY Negative -KIMBERLY Methylisothiazolinone 0.2% aq Negative -KIMBERLY Negative -KIMBERLY Sodium disulfite 1.0% pet Negative -KIMBERLY Negative -KIMBERLY Ethylcyanoacrylate 10.0% pet Negative -KIMBERLY Negative -KIMBERLY Diphenylguanidine 1.0% pet 1+ -KIMBERLY Negative -KIMBERLY Cetearyl glucoside 5.0% pet Negative -KIMBERLY Negative -KIMBERLY Iodopropynyl butylcarbamate 0.2% pet 1+ -KIMBERLY Negative -KIMBERLY Ethyl acrylate 0.1% pet Negative -KIMBERLY Negative -KIMBERLY Benzophenone-4 (Sulisobenzone) 2.0% pet Negative -KIMBERLY Negative -KIMBERLY Tosylamide formaldehyde resin 10.0% pet Negative -KIMBERLY Negative -KIMBERLY Methyl methacrylate 2.0% pet Negative -KIMBERLY Negative -KIMBERLY [place] (ii) chloride hexahydrate 1.0% pet Negative -KIMBERLY Negative -KIMBERLY Tgmuewzqrk-79-atzvuzso 1.0% pet Negative -KIMBERLY Negative -K[facility]BERLY Budesonide 0.1% pet Negative -KIMBERLY Negative -K[facility]BERLY Benzisothiazolinone 0.1% pet Negative -KIMBERLY Negative -KIMBERLY Propolis 10.0% pet Negative -KIMBERLY Negative -K[facility]BER[facility] Lidocaine-HCL 15.0% pet Negative -KIMBERLY Negative -KIMBERLY Propylene glycol 100% Negative -KIMBERLY Negative -KIMBERLY Hydroperoxides of limonene 0.3% pet Negative -KIMBERLY Negative -K[facility]BER[facility] Cocamidopropyl betaine 1.0% aq Negative -KIMBERLY Negative -K[facility]BERLY Formaldehyde 2.0% aq Negative -KIMBERLY Negative -[facility]BER[facility] Oleamidopropyl dimethylamine 0.1% aq Negative -KIMBERLY Negative -K[facility] Ammonium persulfate 2.5% pet Negative -KIMBERLY Negative -KIMBERLY Cocamide STU (coconut diethanolamide) 0.5% pet Negative -KIMBERLY Negative -KIMBERLY Compositae Mix 5.0% pet Negative -KIMBERLY Negative -KIMBERLY Chlorhexidine digluconate 0.5% aq Negative -KIMBERLY Negative -KIMBERLY Tea tree leaf (Melaleuca alternifolia oil) 5.0% pet Negative -[facility]LY Negative -KIMBERLY Ylang-ylang oil (Cananga odorata flower oil) 2.0% pet Negative -KIMBERLY Negative -[facility] Carvone 5.0% pet Negative -K[facility]BERLY Negative -K[facility]BERLY N-Octylisothiazolinone 0.1% pet Negative -KIMBERLY Negative -KIMBERLY Decyl glucoside 5.0% pet Negative -KIMBERLY Negative -[facility]BER[facility] Sodium benzoate 5.0% pet Negative -KIMBERLY Negative -KIMBERLY Peppermint oil (Mentha piperita oil) 2.0% pet Negative -KIMBERLY Negative -[facility]BERLY Benzyl alcohol 10.0% sof Negative -KIMBERLY Negative -[facility]BER[facility] Hydroperoxides of linalool 0.5% pet Negative -KIMBERLY Negative -K[facility]BER[facility] Phenoxyethanol 1.0% pet Negative -K[facility]BERLY Negative -[facility] Sorbitan sesquioleate 20.0% pet Negative -KIMBERLY Negative -KIMBERLY p-toluenediamine sulfate 1.0% pet Negative -KIMBERLY Negative -[facility] Polymyxin B 5.0% pet Negative -KIMBERLY Negative -[facility]BER[facility] Pramoxine 2.0% pet Negative -KIMBERLY Negative -[facility] Isobornyl acrylate 0.1% pet Negative -K[facility]BERLY Negative -K[facility] Textile dye mix 6.6% pet NT -KIMBERLY NT -KIMBERLY Maureen glucoside 5.0% pet NT -KIMBERLY NT -KIMBERLY User Gaming (r) = Recorded By, (t) = Taken By, (c) = Cosigned By Initials Name Dilip Melton RN In the above table, the first column represents final reading (at 96 hours) and the second column represents the first reading (at 48 hours). Resident: Yin Dash MD Dermatology Resident, PGY-3 Attending: Jes Latham MD This note is completed at 8:33 PM on 12/03/2024 and reflects the services provided at the time of the appointment. I agree with the Chief Complaint, ROS, and Past Histories that may have been independently gathered by the clinical account support rep and the remaining note (including any AI-generated and/or scribed content) is reviewed and accurately describes my personal service to the patient. I have seen and examined Ms. Corrales. I have discussed the case and the management of this patient's care with the Resident. I also have reviewed and agree with the assessment and plan as stated above and agree with all of its relevant components. There were no procedures performed during this patient's visit. Jes Latham MD 12/03/2024 8:35 PM Addendum Thank you for allowing us to perform patch testing for you! It has been a pleasure to meet you. Our entire staff hopes that the information we discovered during your patch testing will help your referring physician or other health care provider to better plan any needed future treatment. We recommend that you make sure you arrange follow-up with your referring provider in the next several months to discuss your results. While you can certainly shower after today's visit, we recommend that you avoid scrubbing the ink off the back for the next several days. In the rare chance that a new reaction occurs (a late reaction), residual ink can help us identify the allergen. If you notice a new small area of rash within the patch testing sites, please take several photos of the area and contact our office for additional instructions. Our telephone number is [phone]. - Resume phototherapy sessions as scheduled, ensuring to cover the treated areas until mid-next week. - Refill triamcinolone ointment at the pharmacy; ensure you receive the ointment form, not the cream. - Schedule a follow-up appointment with Dr. James in a couple of months. - Schedule an appointment with an fish straightener to discuss potential food allergies. - Shower today, but avoid scrubbing off the ink from the testing; let it wear off naturally over the next few days. - Monitor for any new itchy red spots; if any appear, take pictures and report them. - Use the provided list of safe products for skincare; avoid trying new products not on the list. We identified reactions that both appear to be allergies and may be significant. What next? You are provided today with a folder that was personalized for you by our nurses and clinical staff. It will contain: A list of all of the allergens to which we tested you. On the list you will find the chemical name of the allergen, as well as test results for 48 hours (we reviewed your photographs when provided) and 96 hours (today). The following may help you understand the test results: NT = Not tested. This is generally because the allergens are unavailable from our current supplier, or we elected not to test with these specific allergens. ? = equivocal reaction. This is a borderline-positive reaction, showing just the slightest response at the area. Your technical publications manager will decide whether this is relevant for your particular situation. In some instances it may be decided that the reaction is relevant, but it may also be considered irrelevant, based on the experience and judgement of your technical publications manager. 1+, 2+, 3+ = These are increasingly strong, positive reactions. These are often relevant for a patient, but we will discuss each positive finding with you to help establish whether it is relevant. IR = Irritant reaction. With a few exceptions, these reactions are generally not relevant. Your technical publications manager will carefull consider these irritant reactions and discuss with you their relevance. Information regarding each of the positive, relevant reactions. These avoidance sheets briefly explain important information about each allergen, including the kinds of products where it is likely to be found. Information about accessing a list of safe products, personalized for you. We use a system produced by the [place] [employer]. You will be given a set of codes that can be used to access the database on an ongoing basis. A very helpful tool that you can access from the [employer] for your mobile device is the [employer]. Your list can be carried with you while shopping for products that should be safe for you to use. The icon should look like this: The use of the safe product list is extremely important for anyone dealing with an allergic contact dermatitis. While not every safe product will be on the list, those that are on the list should be safe to use. It is important that you choose only the exact product on the list. While one product from a particular company may appear on the safe product list, a similar product from that company that does not appear on the list is likely to be unsafe for you. We recommend that you aggressively use only the safe product list for the next 2-3 months. Avoid contact with any products that are not on your personal safe list. If you are significantly improved by avoiding these products, then it implies that the allergens identified on the testing were relevant and important. Violetta Ibrahim RN 12/03/2024 8:42 PM Signed To view your list, go to [email or web address] Allergen Search Code: [email or web address] Allergen Search Code: [email or web address] Violetta Ibrahim RN Allergies As of Date: 11/17/2024 Noted Allergy Reaction DIPHENYLGUANIDINE 11/17/2024 2 - Rash IODOPROPYNYL BUTYLCARBAMATE 11/17/2024 2 - Rash WHEAT 08/24/2019 7 - Swelling DAIRY AID (LACTASE) 08/24/2019 7 - Swelling Comments: Bloating Date Reviewed: 11/17/2024 Reviewed by: Sonam Freitas RN - Fully Assessed Reason for Visit: Patch Testing (allergy) [1102] Primary Visit Diagnosis:Contact dermatitis due to preservative [L25.8] Other Visit Diagnoses: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 Avoid face, groin, and armpitsDisp: 453.6 gRfl: 1 CONSULT TO ALLERGY/IMMUNOLOGY [9001] Order #: [id number]: 1 FUTURE Prescriptions as of 12/03/2024 - triamcinolone acetonide (KENALOG) 0.1 % ointment Apply to affected areas twice daily Wednesday-Wednesday as needed. Avoid face, groin, and armpits - white petrolatum (AQUAPHOR) 41 % topical ointment Apply to affected area as needed. - pantoprazole DR (PROTONIX) 40 mg tablet Take 1 tablet by mouth daily at 6 am. Patient should start on May 11, 2024. - Lactobacillus acidophilus (PROBIOTIC ORAL) Take 1 capsule by mouth once daily. - Cholecalciferol, Vitamin D3, 25 mcg (1,000 unit) cap Take 1,000 Units by mouth once daily. 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 It has been a pleasure to meet you. Our entire staff hopes that the information we discovered during your patch testing will help your referring physician or other health care provider to better plan any needed future treatment. We recommend that you make sure you arrange follow-up with your referring provider in the next several months to discuss your results. While you can certainly shower after today's visit, we recommend that you avoid scrubbing the ink off the back for the next several days. In the rare chance that a new reaction occurs (a late reaction), residual ink can help us identify the allergen. If you notice a new small area of rash within the patch testing sites, please take several photos of the area and contact our office for additional instructions. Our telephone number is [phone]. - Resume phototherapy sessions as scheduled, ensuring to cover the treated areas until mid-next week. - Refill triamcinolone ointment at the pharmacy; ensure you receive the ointment form, not the cream. - Schedule a follow-up appointment with Dr. James in a couple of months. - Schedule an appointment with an fish straightener to discuss potential food allergies. - Shower today, but avoid scrubbing off the ink from the testing; let it wear off naturally over the next few days. - Monitor for any new itchy red spots; if any appear, take pictures and report them. - Use the provided list of safe products for skincare; avoid trying new products not on the list. We identified reactions that both appear to be allergies and may be significant. What next? You are provided today with a folder that was personalized for you by our nurses and clinical staff. It will contain: A list of all of the allergens to which we tested you. On the list you will find the chemical name of the allergen, as well as test results for 48 hours (we reviewed your photographs when provided) and 96 hours (today). The following may help you understand the test results: NT = Not tested. This is generally because the allergens are unavailable from our current supplier, or we elected not to test with these specific allergens. ? = equivocal reaction. This is a borderline-positive reaction, showing just the slightest response at the area. Your technical publications manager will decide whether this is relevant for your particular situation. In some instances it may be decided that the reaction is relevant, but it may also be considered irrelevant, based on the experience and judgement of your technical publications manager. 1+, 2+, 3+ = These are increasingly strong, positive reactions. These are often relevant for a patient, but we will discuss each positive finding with you to help establish whether it is relevant. IR = Irritant reaction. With a few exceptions, these reactions are generally not relevant. Your technical publications manager will carefull consider these irritant reactions and discuss with you their relevance. Information regarding each of the positive, relevant reactions. These avoidance sheets briefly explain important information about each allergen, including the kinds of products where it is likely to be found. Information about accessing a list of safe products, personalized for you. We use a system produced by the [place] [employer]. You will be given a set of codes that can be used to access the database on an ongoing basis. A very helpful tool that you can access from the [employer] for your mobile device is the [employer]. Your list can be carried with you while shopping for products that should be safe for you to use. The icon should look like this: The use of the safe product list is extremely important for anyone dealing with an allergic contact dermatitis. While not every safe product will be on the list, those that are on the list should be safe to use. It is important that you choose only the exact product on the list. While one product from a particular company may appear on the safe product list, a similar product from that company that does not appear on the list is likely to be unsafe for you. We recommend that you aggressively use only the safe product list for the next 2-3 months. Avoid contact with any products that are not on your personal safe list. If you are significantly improved by avoiding these products, then it implies that the allergens identified on the testing were relevant and important. Prescriptions ordered this encounter Disp Refills Start End TRIAMCINOLONE ACETONIDE 0.1 % TOPICA* 453.* 1 11/17/2024 Sig: Apply to affected areas twice daily Wednesday-Wednesday as needed. Avoid face, groin, and armpits Disposition: Return in about 3 months (around 02/14/2025) for rash f/u with Dr. James. Follow-up and Disposition History for Encounter Date Provider Department Center 11/17/2024 [id number], [facility] - A Bld Encounter Status:Closed by JES LATHAM on 12/03/24 PROGRESS Observed: 11/17/2024 11:30 AM Status: COMPLETED Source: [facility] ID: [id number] Author: JES LATHAM MD Service: ? Author Type: Physician Type: Progress Notes Filed: 12/03/2024 20:42 Note Text: Department of Dermatology [facility]. 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 Contact dermatitis due to preservative (L25.8) - Patch testing revealed a 1+ reaction to iodopropynyl butylcarbamate, a preservative previously used in unscented body washes and other products. - Discussed that this preservative is less commonly used now and is not present in any of the patient's current products. - Considered a past relevant reaction, unlikely to be contributing to current dermatitis. 2. 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 - Discussed that this allergen is not likely present in current clothing or products. - Considered a past relevant reaction, unlikely to be contributing to current dermatitis. 3. Rash and nonspecific skin eruption (R21) - Current rash is not attributed to allergic contact dermatitis based on patch test results. - Provided a list of safe products to use and avoid. - Refilled triamcinolone ointment, ensuring the ointment form is provided. - Advised to continue using Vaseline and Aveeno during flare-ups. - Recommended resuming phototherapy, with areas covered until mid-next week. - Referral to fish straightener Dr. Tamera Evans for further evaluation of potential food allergies. - Follow-up with Dr. Ingram in a couple of months to monitor skin condition. Positive reactions included: Rubber Diphenylguanidine (DPG, tested at 1% in petrolatum) Class: Rubber chemical This carbamate is an accelerator used to improve the plasticity of rubber during the vulcanization process. It is commonly found in rubber gloves and multiple other rubber-containing products. Avoidance is difficult, but certain accelerator-free gloves can be recommended (a separate handout may be provided to the patient). We believe this represents an allergic contact dermatitis allergen [A1] of past clinical relevance [R4], and patient is instructed to avoid in the future. Rationale: 1+ reaction, had issues with elastic bands in clothing in the past Occupational source: No [L6] Preservatives: Iodopropynyl butylcarbamate (IPBC, tested at 0.5% in petrolatum) Class: Preservative This is a preservative used in many personal care products, such as body washes, cosmetics and pre-moistened toilet paper and wipes. It can also be found in industrial products such as paints, lubricants, and cooling fluids. We believe this represents an allergic contact dermatitis allergen [A1] of past clinical relevance [R4], and patient is instructed to avoid in the future. Rationale: 1+ reaction, previously used Dove body wash that might've contained this ingredient. Not identified today in patients' personal care products. Occupational source: No [L6] Medication Management: Continue triamcinolone 0.1% ointments directed, refilled. We discussed the above allergens and ways to avoid them. Information regarding a safe product list (CAMP), as well as avoidance sheets were provided to the patient and discussed with the patient - Will place referral to Allergy for skin prick testing, rash triggers with food Additional instructions: Patient Instructions Thank you for allowing us to perform patch testing for you! It has been a pleasure to meet you. Our entire staff hopes that the information we discovered during your patch testing will help your referring physician or other health care provider to better plan any needed future treatment. We recommend that you make sure you arrange follow-up with your referring provider in the next several months to discuss your results. While you can certainly shower after today's visit, we recommend that you avoid scrubbing the ink off the back for the next several days. In the rare chance that a new reaction occurs (a late reaction), residual ink can help us identify the allergen. If you notice a new small area of rash within the patch testing sites, please take several photos of the area and contact our office for additional instructions. Our telephone number is [phone]. - Resume phototherapy sessions as scheduled, ensuring to cover the treated areas until mid-next week. - Refill triamcinolone ointment at the pharmacy; ensure you receive the ointment form, not the cream. - Schedule a follow-up appointment with Dr. Ingram in a couple of months. - Schedule an appointment with an fish straightener to discuss potential food allergies. - Shower today, but avoid scrubbing off the ink from the testing; let it wear off naturally over the next few days. - Monitor for any new itchy red spots; if any appear, take pictures and report them. - Use the provided list of safe products for skincare; avoid trying new products not on the list. We identified reactions that both appear to be allergies and may be significant. What next? You are provided today with a folder that was personalized for you by our nurses and clinical staff. It will contain: A list of all of the allergens to which we tested you. On the list you will find the chemical name of the allergen, as well as test results for 48 hours (we reviewed your photographs when provided) and 96 hours (today). The following may help you understand the test results: NT = Not tested. This is generally because the allergens are unavailable from our current supplier, or we elected not to test with these specific allergens. ? = equivocal reaction. This is a borderline-positive reaction, showing just the slightest response at the area. Your technical publications manager will decide whether this is relevant for your particular situation. In some instances it may be decided that the reaction is relevant, but it may also be considered irrelevant, based on the experience and judgement of your technical publications manager. 1+, 2+, 3+ = These are increasingly strong, positive reactions. These are often relevant for a patient, but we will discuss each positive finding with you to help establish whether it is relevant. IR = Irritant reaction. With a few exceptions, these reactions are generally not relevant. Your technical publications manager will carefull consider these irritant reactions and discuss with you their relevance. Information regarding each of the positive, relevant reactions. These avoidance sheets briefly explain important information about each allergen, including the kinds of products where it is likely to be found. Information about accessing a list of safe products, personalized for you. We use a system produced by the [place] [employer]. You will be given a set of codes that can be used to access the database on an ongoing basis. A very helpful tool that you can access from the [employer] for your mobile device is the [employer] [facility]. Your list can be carried with you while shopping for products that should be safe for you to use. The icon should look like this: The use of the safe product list is extremely important for anyone dealing with an allergic contact dermatitis. While not every safe product will be on the list, those that are on the list should be safe to use. It is important that you choose only the exact product on the list. While one product from a particular company may appear on the safe product list, a similar product from that company that does not appear on the list is likely to be unsafe for you. We recommend that you aggressively use only the safe product list for the next 2-3 months. Avoid contact with any products that are not on your personal safe list. If you are significantly improved by avoiding these products, then it implies that the allergens identified on the testing were relevant and important. Return in about 3 months (around 02/14/2025) for rash f/u with Dr. James. CC: Final patch test reading and interpretation. HPI: Ms. Corrales presents for final patch test reading. Patches removed 2 days ago. Tolerated the patch test process well. + Flare of dermatitis on arms. PMH: Unchanged from previous visit ROS: Patient feels generally well. No additional skin complaints. Mirian Corrales is a 69-year-old female presenting for follow-up on recent patch testing and evaluation of a rash. Mirian reports a flare-up of a pruritic rash, which she believes is related to food allergies. The rash is primarily located on her arms and lower back. She describes sudden, intense pruritus episodes, stating, I'd be sitting and all of a sudden I'd have a burst of itch. She has been using triamcinolone cream, which she feels is less effective than the ointment she previously used. She also uses Vaseline and Aveeno for symptom relief. She denies any issues with the recent patch testing. She has a follow-up appointment with a bellman driver on November 23 to address potential food allergies. She is currently undergoing phototherapy and has sessions scheduled through December. She is also under the care of Dr. James, her technical publications manager. PE: Patient appears generally well. Results from Patch Tests are documented in the photos and in the Results Smartform links below. General: No acute distress. Skin: Scattered excoriations, mild induration, mild erythema. Tests - (Today) Patch Testing: - Positive (1+) reaction to diphenylguanidine. - Positive (1+) reaction to iodopropynyl butylcarbamate. 48 hour photograph hyperlinks (if submitted by patient or obtained in the office: [id number] Photographs from today's visit (96 hours) Derm Clinical Image - Scan on 11/17/2024 11:31 AM Derm Clinical Image - Scan on 11/17/2024 11:31 AM Derm Clinical Image - Scan on 11/17/2024 11:31 AM Hyperlinks to Results Smartform: Miscellaneous Document - Scan on 11/17/2024 12:09 PM: Patch Testing DERM PATCH TESTING (Last 720 Hours) Allergy Testing Row Name 11/17/24 1200 11/15/24 1206 OTHER Benzocaine 5.0% pet Negative -KIMBERLY Negative -KIMBERLY 2-mercaptobenzothiazole 1.0% pet Negative -KIMBERLY Negative -KIMBERLY Colophonium (rosin) 20.0% pet Negative -KIMBERLY Negative -KIMBERLY 4-phenylenediamine 1.0% pet Negative -KIMBERLY Negative -KIMBERLY Dimethylaminopropylamine (DMAPA) 1.0% aq Negative -KIMBERLY Negative -KIMBERLY Fragrance Mix II 14.0% pet Negative -KIMBERLY Negative -KIMBERLY Lanolin alcohol (Amerchol L101) 50% pet Negative -KIMBERLY Negative -KIMBERLY Carba Mix 3.0% pet Negative -KIMBERLY Negative -KIMBERLY Neomycin sulfate 20.0% pet Negative -KIMBERLY Negative -KIMBERLY Thiuram mix 1.0% pet Negative -KIMBERLY Negative -KIMBERLY Benzalkonium Chloride 0.1% aq Negative -KIMBERLY Negative -KIMBERLY Ethylenediamine Dihydrochloride 1.0 pet Negative -KIMBERLY Negative -KIMBERLY Bisphenol A Epoxy Resin 1.0% pet Negative -KIMBERLY Negative -KIMBERLY Quaternium 15, 2.0% pet Negative -KIMBERLY Negative -KIMBERLY 7-xzpl-setxhcvflbf formaldehyde resin 1.0% pet Negative -KIMBERLY Negative -KIMBERLY Ethylhexylglycerin 5.0% pet Negative -KIMBERLY Negative -KIMBERLY Black rubber mix 0.6% pet Negative -KIMBERLY Negative -KIMBERLY Potassium dichromate 0.25% pet Negative -KIMBERLY Negative -KIMBERLY Balsam of [place] (Myroxylon pereirae resin) 25.0% pet Negative -KIMBERLY Negative -KIMBERLY Nickel sulfate hexahydrate 5.0% pet Negative -KIMBERLY Negative -KIMBERLY Diazolidinyl urea (Germall II) 1.0% pet Negative -KIMBERLY Negative -KIMBERLY DMDM hydantoin (Germall 115) 1.0% pet Negative -KIMBERLY Negative -KIMBERLY Imidazolidinyl urea 2.0% pet Negative -KIMBERLY Negative -KIMBERLY Bacitracin 20.0% pet Negative -KIMBERLY Negative -KIMBERLY Mixed dialkyl thioureas 1.0% Negative -KIMBERLY Negative -KIMBERLY Methylchloroisothiazolinone/methylisothiazolinone 0.02% aq Negative -KIMBERLY Negative -KIMBERLY Paraben mix 12.0% pet Negative -KIMBERLY Negative -KIMBERLY Cinnamic aldehyde 1.0% pet Negative -KIMBERLY Negative -KIMBERLY Fragrance Mix 1, 8.0% pet Negative -KIMBERLY Negative -KIMBERLY Amidoamine (stearamidopropyl dimethylamine) 0.1% aq Negative -KIMBERLY Negative -KIMBERLY 1-Xuvfy-0-nitropropane-1,3-diol (Bronopol) 0.5% pet Negative -KIMBERLY Negative -KIMBERLY Sesquiterpene lactone mix 0.1% pet Negative -KIMBERLY Negative -KIMBERLY 2-Hydroxethyl methacrylate 2.0% pet Negative -KIMBERLY Negative -KIMBERLY Hydroperoxides of linalool 1.0% pet Negative -KIMBERLY Negative -KIMBERLY Benzophenone-3, 10.0% pet (Oxybenzone or 6-kicbblu-4-methoxy-benzophenone) Negative -KIMBERLY Negative -KIMBERLY Chloroxylenol (4-Chloro-3,5-xylenol) 1.0% pet Negative -KIMBERLY Negative -KIMBERLY Lauryl glucoside 3.0% pet Negative -KIMBERLY Negative -KIMBERLY Methylisothiazolinone 0.2% aq Negative -KIMBERLY Negative -KIMBERLY Sodium disulfite 1.0% pet Negative -KIMBERLY Negative -KIMBERLY Ethylcyanoacrylate 10.0% pet Negative -KIMBERLY Negative -KIMBERLY Diphenylguanidine 1.0% pet 1+ -KIMBERLY Negative -KIMBERLY Cetearyl glucoside 5.0% pet Negative -KIMBERLY Negative -KIMBERLY Iodopropynyl butylcarbamate 0.2% pet 1+ -KIMBERLY Negative -KIMBERLY Ethyl acrylate 0.1% pet Negative -KIMBERLY Negative -KIMBERLY Benzophenone-4 (Sulisobenzone) 2.0% pet Negative -KIMBERLY Negative -KIMBERLY Tosylamide formaldehyde resin 10.0% pet Negative -KIMBERLY Negative -KIMBERLY Methyl methacrylate 2.0% pet Negative -KIMBERLY Negative -KIMBERLY [place] (ii) chloride hexahydrate 1.0% pet Negative -KIMBERLY Negative -KIMBERLY Abjzstcuso-67-ibycqwhk 1.0% pet Negative -KIMBERLY Negative -KIMBERLY Budesonide 0.1% pet Negative -KIMBERLY Negative -KIMBERLY Benzisothiazolinone 0.1% pet Negative -KIMBERLY Negative -KIMBERLY Propolis 10.0% pet Negative -KIMBERLY Negative -KIMBERLY Lidocaine-HCL 15.0% pet Negative -KIMBERLY Negative -KIMBERLY Propylene glycol 100% Negative -KIMBERLY Negative -KIMBERLY Hydroperoxides of limonene 0.3% pet Negative -KIMBERLY Negative -KIMBERLY Cocamidopropyl betaine 1.0% aq Negative -KIMBERLY Negative -KIMBERLY Formaldehyde 2.0% aq Negative -KIMBERLY Negative -KIMBERLY Oleamidopropyl dimethylamine 0.1% aq Negative -KIMBERLY Negative -KIMBERLY Ammonium persulfate 2.5% pet Negative -KIMBERLY Negative -KIMBERLY Cocamide STU (coconut diethanolamide) 0.5% pet Negative -KIMBERLY Negative -KIMBERLY Compositae Mix 5.0% pet Negative -KIMBERLY Negative -KIMBERLY Chlorhexidine digluconate 0.5% aq Negative -KIMBERLY Negative -KIMBERLY Tea tree leaf (Melaleuca alternifolia oil) 5.0% pet Negative -KIMBERLY Negative -KIMBERLY Ylang-ylang oil (Cananga odorata flower oil) 2.0% pet Negative -KIMBERLY Negative -KIMBERLY Carvone 5.0% pet Negative -KIMBERLY Negative -KIMBERLY N-Octylisothiazolinone 0.1% pet Negative -KIMBERLY Negative -KIMBERLY Decyl glucoside 5.0% pet Negative -KIMBERLY Negative -KIMBERLY Sodium benzoate 5.0% pet Negative -KIMBERLY Negative -KIMBERLY Peppermint oil (Mentha piperita oil) 2.0% pet Negative -KIMBERLY Negative -KIMBERLY Benzyl alcohol 10.0% sof Negative -KIMBERLY Negative -KIMBERLY Hydroperoxides of linalool 0.5% pet Negative -KIMBERLY Negative -KIMBERLY Phenoxyethanol 1.0% pet Negative -KIMBERLY Negative -KIMBERLY Sorbitan sesquioleate 20.0% pet Negative -KIMBERLY Negative -KIMBERLY p-toluenediamine sulfate 1.0% pet Negative -KIMBERLY Negative -KIMBERLY Polymyxin B 5.0% pet Negative -KIMBERLY Negative -KIMBERLY Pramoxine 2.0% pet Negative -KIMBERLY Negative -KIMBERLY Isobornyl acrylate 0.1% pet Negative -KIMBERLY Negative -KIMBERLY Textile dye mix 6.6% pet NT -KIMBERLY NT -KIMBERLY Maureen glucoside 5.0% pet NT -KIMBERLY NT -KIMBERLY User Gaming (r) = Recorded By, (t) = Taken By, (c) = Cosigned By Initials Name Dilip Melton RN In the above table, the first column represents final reading (at 96 hours) and the second column represents the first reading (at 48 hours). Resident: Yin Dash MD Dermatology Resident, PGY-3 Attending: Jes Latham MD This note is completed at 8:33 PM on 12/03/2024 and reflects the services provided at the time of the appointment. I agree with the Chief Complaint, ROS, and Past Histories that may have been independently gathered by the clinical account support rep and the remaining note (including any AI-generated and/or scribed content) is reviewed and accurately describes my personal service to the patient. I have seen and examined Ms. Corrales. I have discussed the case and the management of this patient's care with the Resident. I also have reviewed and agree with the assessment and plan as stated above and agree with all of its relevant components. There were no procedures performed during this patient's visit. CNNURSE Observed: 11/15/2024 1:40 PM Status: COMPLETED Source: [facility] Nurse Visit (DERMAV) MIRIAN CORRALES ([id number]) 1955 F Date Time Provider Department 11/15/24 1:40 PM NURSE DERM [facility] M[facility] CORTES During your visit today, we recorded the following information about you: Sonam Freitas RN 11/15/2024 1:38 PM Signed Pt is identified by name and birthdate: Yes Allergies reviewed: Yes Medication - prescribed and OTC reviewed and updated: Yes Latex allergy: no. Is the patient having any pain? No 0 on a scale of 0 to 10 See flow sheet for treatment record. Protective eyewear given and worn. Sonam Freitas RN November 15, 2024 1:37 PM Allergies As of Date: 11/15/2024 Noted Allergy Reaction WHEAT 08/24/2019 7 - Swelling DAIRY AID (LACTASE) 08/24/2019 7 - Swelling Comments: Bloating Date Reviewed: 11/15/2024 Reviewed by: Sonam Freitas RN - Fully Assessed Reason for Visit: Light Treatments [1093] Primary Visit Diagnosis:Contact dermatitis and other eczema, due to unspecified cause [L25.9] Prescriptions as of 11/15/2024 - white petrolatum (AQUAPHOR) 41 % topical ointment Apply to affected area as needed. - pantoprazole DR (PROTONIX) 40 mg tablet Take 1 tablet by mouth daily at 6 am. Patient should start on May 11, 2024. - Lactobacillus acidophilus (PROBIOTIC ORAL) Take 1 capsule by mouth once daily. - Cholecalciferol, Vitamin D3, 25 mcg (1,000 unit) cap Take 1,000 Units by mouth once daily. 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 Author Type: Registered Nurse Type: Progress Notes Filed: 11/15/2024 13:38 Note Text: Pt is identified by name and birthdate: Yes Allergies reviewed: Yes Medication - prescribed and OTC reviewed and updated: Yes Latex allergy: no. Is the patient having any pain? No 0 on a scale of 0 to 10 See flow sheet for treatment record. Protective eyewear given and worn. Sonam Freitas RN November 15, 2024 1:37 PM PROGRESS Observed: 11/13/2024 11:49 AM Status: COMPLETED Source: [facility] HNO ID: [id number] Author: DILIP WILSON RN Service: ? Author Type: Registered Nurse Type: Progress Notes Filed: 11/13/2024 11:52 Note Text: Patient presents today for patch test application. A total of 77 patches applied to patient's upper back. Advised patient to keep back dry until after Wednesday appointment. Patch test procedure and removal of patches reviewed. Print offs of instruction provided to patient. All questions/concerns addressed. Dilip Wilson RN November 13, 2024 11:50 AM CNOV Observed: 11/13/2024 11:30 AM Status: COMPLETED Source: [facility] Office Visit (DERMMN) MIRIAN CORRALES ([id number]) 1955 F Date Time Provider Department 11/13/24 11:30 AM NURSE PATCH TEST DERMMN During your visit today, we recorded the following information about you: Dilip Wilson RN 11/13/2024 11:52 AM Signed Patient presents today for patch test application. A total of 77 patches applied to patient's upper back. Advised patient to keep back dry until after Wednesday appointment. Patch test procedure and removal of patches reviewed. Print offs of instruction provided to patient. All questions/concerns addressed. Dilip Wilson RN November 13, 2024 11:50 AM Allergies As of Date: 11/13/2024 Noted Allergy Reaction WHEAT 08/24/2019 7 - Swelling DAIRY AID (LACTASE) 08/24/2019 7 - Swelling Comments: Bloating Date Reviewed: 11/13/2024 Reviewed by: Anel Lay RN - Fully Assessed Reason for Visit: Patch Testing (allergy) [1102] Primary Visit Diagnosis:Contact dermatitis and other eczema, due to unspecified cause [L25.9] Prescriptions as of 11/13/2024 - white petrolatum (AQUAPHOR) 41 % topical ointment Apply to affected area as needed. - pantoprazole DR (PROTONIX) 40 mg tablet Take 1 tablet by mouth daily at 6 am. Patient should start on May 11, 2024. - Lactobacillus acidophilus (PROBIOTIC ORAL) Take 1 capsule by mouth once daily. - Cholecalciferol, Vitamin D3, 25 mcg (1,000 unit) cap Take 1,000 Units by mouth once daily. 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 Is the patient having any pain? No 0 on a scale of 0 to 10 See flow sheet for treatment record. Protective eyewear given and worn. 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 - pantoprazole DR (PROTONIX) 40 mg tablet Take 1 tablet by mouth daily at 6 am. Patient should start on May 11, 2024. - Lactobacillus acidophilus (PROBIOTIC ORAL) Take 1 capsule by mouth once daily. - Cholecalciferol, Vitamin D3, 25 mcg (1,000 unit) cap Take 1,000 Units by mouth once daily. 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 Author Type: Registered Nurse Type: Progress Notes Filed: 11/09/2024 13:28 Note Text: Pt is identified by name and birthdate: Yes Allergies reviewed: Yes Medication - prescribed and OTC reviewed and updated: Yes Latex allergy: no. Is the patient having any pain? No 0 on a scale of 0 to 10 See flow sheet for treatment record. Protective eyewear given and worn. Austin Boss RN November 07, 2024 11:21 AM PROGRESS Observed: 11/07/2024 11:21 AM Status: COMPLETED Source: [facility] HNO ID: [id number] Author: AUSTIN BOSS RN Service: ? Author Type: Registered Nurse Type: Progress Notes Filed: 11/07/2024 11:24 Note Text: Pt is identified by name and birthdate: Yes Allergies reviewed: Yes Medication - prescribed and OTC reviewed and updated: Yes Latex allergy: no. Is the patient having any pain? No 0 on a scale of 0 to 10 See flow sheet for treatment record. Protective eyewear given and worn. Austin Boss RN November 07, 2024 11:21 AM CNNURSE Observed: 11/07/2024 11:00 AM Status: COMPLETED Source: [facility] Nurse Visit (DERMAV) MIRIAN CORRALES ([id number]) 1955 F Date Time Provider Department 11/07/24 11:00 AM NURSE DERM [facility] DERMAV During your visit today, we recorded the following information about you: Austin Boss RN 11/07/2024 11:24 AM Signed Pt is identified by name and birthdate: Yes Allergies reviewed: Yes Medication - prescribed and OTC reviewed and updated: Yes Latex allergy: no. Is the patient having any pain? No 0 on a scale of 0 to 10 See flow sheet for treatment record. Protective eyewear given and worn. 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 - pantoprazole DR (PROTONIX) 40 mg tablet Take 1 tablet by mouth daily at 6 am. Patient should start on May 11, 2024. - Lactobacillus acidophilus (PROBIOTIC ORAL) Take 1 capsule by mouth once daily. - Cholecalciferol, Vitamin D3, 25 mcg (1,000 unit) cap Take 1,000 Units by mouth once daily. 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 Author Type: Registered Nurse Type: Progress Notes Filed: 10/27/2024 15:24 Note Text: Pt is identified by name and birthdate: Yes Allergies reviewed: Yes Medication - prescribed and OTC reviewed and updated: Yes Latex allergy: no. Is the patient having any pain? No 0 on a scale of 0 to 10 See flow sheet for treatment record. Protective eyewear given and worn. Austin Boss RN October 27, 2024 3:22 PM CNNURSE Observed: 10/27/2024 3:20 PM Status: COMPLETED Source: [facility] Nurse Visit (DERMAV) MIRIAN CORRALES ([id number]) 1955 F Date Time Provider Department 10/27/24 3:20 PM NURSE DERM [facility] CORTES During your visit today, we recorded the following information about you: Austin Boss RN 10/27/2024 3:24 PM Signed Pt is identified by name and birthdate: Yes Allergies reviewed: Yes Medication - prescribed and OTC reviewed and updated: Yes Latex allergy: no. Is the patient having any pain? No 0 on a scale of 0 to 10 See flow sheet for treatment record. Protective eyewear given and worn. 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 - pantoprazole DR (PROTONIX) 40 mg tablet Take 1 tablet by mouth daily at 6 am. Patient should start on May 11, 2024. - Lactobacillus acidophilus (PROBIOTIC ORAL) Take 1 capsule by mouth once daily. - Cholecalciferol, Vitamin D3, 25 mcg (1,000 unit) cap Take 1,000 Units by mouth once daily. 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] 05/09/2024 Questionnaire: DERMATOLOGY PHOTOTHERAPY TX DX -> spongiotic dermatitis ORDERING PHYSICIAN -> Cmt: Jacob TX TYPE -> NARROW BAND UVB (MJ/CM2) TX FREQ -> 3X/WK INITIAL DOSE -> 220 MAX DOSE -> 3000 INCREASE BY -> 25-50 TX# -> 33 DOSE -> 270 DOSE ADJ -> 0 adjust per patient Encounter Status:Closed by AUSTIN BOSS on 10/27/24 CNNURSE Observed: 10/25/2024 3:40 PM Status: COMPLETED Source: [facility] Nurse Visit (DERMAV) MIRIAN CORRALES ([id number]) 1955 F Date Time Provider Department 10/25/24 3:40 PM NURSE DERM [facility] DERMAV During your visit today, we recorded the following information about you: Sonam Freitas RN 10/25/2024 3:24 PM Signed Pt is identified by name and birthdate: Yes Allergies reviewed: Yes Medication - prescribed and OTC reviewed and updated: Yes Latex allergy: no. Is the patient having any pain? No 0 on a scale of 0 to 10 See flow sheet for treatment record. Protective eyewear given and worn. 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 - pantoprazole DR (PROTONIX) 40 mg tablet Take 1 tablet by mouth daily at 6 am. Patient should start on May 11, 2024. - Lactobacillus acidophilus (PROBIOTIC ORAL) Take 1 capsule by mouth once daily. - Cholecalciferol, Vitamin D3, 25 mcg (1,000 unit) cap Take 1,000 Units by mouth once daily. 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 Author Type: Registered Nurse Type: Progress Notes Filed: 10/25/2024 15:24 Note Text: Pt is identified by name and birthdate: Yes Allergies reviewed: Yes Medication - prescribed and OTC reviewed and updated: Yes Latex allergy: no. Is the patient having any pain? No 0 on a scale of 0 to 10 See flow sheet for treatment record. Protective eyewear given and worn. Sonam Freitas RN October 25, 2024 3:24 PM CNNURSE Observed: 10/23/2024 3:40 PM Status: COMPLETED Source: [facility] Nurse Visit (DERMAV) MIRIAN CORRALES ([id number]) 1955 F Date Time Provider Department 10/23/24 3:40 PM NURSE DERM [facility] DERMAV During your visit today, we recorded the following information about you: Sonam Freitas RN 10/23/2024 3:36 PM Signed Pt is identified by name and birthdate: Yes Allergies reviewed: Yes Medication - prescribed and OTC reviewed and updated: Yes Latex allergy: no. Is the patient having any pain? No 0 on a scale of 0 to 10 See flow sheet for treatment record. Protective eyewear given and worn. 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 - pantoprazole DR (PROTONIX) 40 mg tablet Take 1 tablet by mouth daily at 6 am. Patient should start on May 11, 2024. - Lactobacillus acidophilus (PROBIOTIC ORAL) Take 1 capsule by mouth once daily. - Cholecalciferol, Vitamin D3, 25 mcg (1,000 unit) cap Take 1,000 Units by mouth once daily. 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 Author Type: Registered Nurse Type: Progress Notes Filed: 10/23/2024 15:36 Note Text: Pt is identified by name and birthdate: Yes Allergies reviewed: Yes Medication - prescribed and OTC reviewed and updated: Yes Latex allergy: no. Is the patient having any pain? No 0 on a scale of 0 to 10 See flow sheet for treatment record. Protective eyewear given and worn. Sonam Freitas RN October 23, 2024 3:35 PM CNNURSE Observed: 10/20/2024 3:40 PM Status: COMPLETED Source: [facility] Nurse Visit (DERMAV) MIRIAN CORRALES ([id number]) 1955 F Date Time Provider Department 10/20/24 3:40 PM NURSE DERM [facility] MORENO CORTES During your visit today, we recorded the following information about you: Sonam Freitas RN 10/20/2024 3:26 PM Signed Pt is identified by name and birthdate: Yes Allergies reviewed: Yes Medication - prescribed and OTC reviewed and updated: Yes Latex allergy: no. Is the patient having any pain? No 0 on a scale of 0 to 10 See flow sheet for treatment record. Protective eyewear given and worn. 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 - pantoprazole DR (PROTONIX) 40 mg tablet Take 1 tablet by mouth daily at 6 am. Patient should start on May 11, 2024. - Lactobacillus acidophilus (PROBIOTIC ORAL) Take 1 capsule by mouth once daily. - Cholecalciferol, Vitamin D3, 25 mcg (1,000 unit) cap Take 1,000 Units by mouth once daily. 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] 05/06/2024 Age-related osteoporosis without current pathol*05/06/2024 Lymphadenopathy [R59.1] 05/06/2024 Eosinophilia [D72.10] 05/08/2024 Eczema [L30.9] 05/08/2024 Peripheral eosinophilia [D72.19] 05/09/2024 Questionnaire: DERMATOLOGY PHOTOTHERAPY TX DX -> spongiotic dermatitis ORDERING PHYSICIAN -> Cmt: Jacob TX TYPE -> NARROW BAND UVB (MJ/CM2) TX FREQ -> 3X/WK INITIAL DOSE -> 220 MAX DOSE -> 3000 INCREASE BY -> 25-50 TX# -> 30 DOSE -> 270 DOSE ADJ -> no change COMMENTS: -> pt tolerated without issue Encounter Status:Closed by SONAM FREITAS on 10/20/24 PROGRESS Observed: 10/20/2024 3:25 PM Status: COMPLETED Source: [facility] HNO ID: [id number] Author: SONAM FREITAS RN Service: ? Author Type: Registered Nurse Type: Progress Notes Filed: 10/20/2024 15:26 Note Text: Pt is identified by name and birthdate: Yes Allergies reviewed: Yes Medication - prescribed and OTC reviewed and updated: Yes Latex allergy: no. Is the patient having any pain? No 0 on a scale of 0 to 10 See flow sheet for treatment record. Protective eyewear given and worn. Sonam Freitas RN October 20, 2024 3:25 PM CNNURSE Observed: 10/18/2024 3:40 PM Status: COMPLETED Source: [facility] Nurse Visit (DERMAV) MIRIAN CORRALES ([id number]) 1955 F Date Time Provider Department 10/18/24 3:40 PM NURSE DERM [facility] CORTES During your visit today, we recorded the following information about you: Kierra Harris RN 10/18/2024 3:57 PM Signed Pt is identified by name and birthdate: Yes Allergies reviewed: Yes Medication - prescribed and OTC reviewed and updated: Yes Latex allergy: no. Is the patient having any pain? No 0 on a scale of 0 to 10 See flow sheet for treatment record. Protective eyewear given and worn. 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 - pantoprazole DR (PROTONIX) 40 mg tablet Take 1 tablet by mouth daily at 6 am. Patient should start on May 11, 2024. - Lactobacillus acidophilus (PROBIOTIC ORAL) Take 1 capsule by mouth once daily. - Cholecalciferol, Vitamin D3, 25 mcg (1,000 unit) cap Take 1,000 Units by mouth once daily. 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] 05/06/2024 Age-related osteoporosis without current pathol*05/06/2024 Lymphadenopathy [R59.1] 05/06/2024 Eosinophilia [D72.10] 05/08/2024 Eczema [L30.9] 05/08/2024 Peripheral eosinophilia [D72.19] 05/09/2024 Questionnaire: DERMATOLOGY PHOTOTHERAPY TX DX -> spongiotic dermatitis ORDERING PHYSICIAN -> Cmt: jacob TX TYPE -> NARROW BAND UVB (MJ/CM2) TX FREQ -> 3X/WK INITIAL DOSE -> 220 MAX DOSE -> 3000 INCREASE BY -> 25-50 TX# -> 29 DOSE -> 270 DOSE ADJ -> No increase COMMENTS: -> Patient tolerated well Encounter Status:Closed by KIERRA HARRIS on 10/18/24 PROGRESS Observed: 10/18/2024 3:32 PM Status: COMPLETED Source: [facility] HNO ID: [id number] Author: KIERRA HARRIS RN Service: ? Author Type: Registered Nurse Type: Progress Notes Filed: 10/18/2024 15:57 Note Text: Pt is identified by name and birthdate: Yes Allergies reviewed: Yes Medication - prescribed and OTC reviewed and updated: Yes Latex allergy: no. Is the patient having any pain? No 0 on a scale of 0 to 10 See flow sheet for treatment record. Protective eyewear given and worn. Kierra Harris RN October 18, 2024 3:32 PM CNNURSE Observed: 10/16/2024 3:40 PM Status: COMPLETED Source: [facility] Nurse Visit (DERMAV) MIRIAN CORRALES ([id number]) 1955 F Date Time Provider Department 10/16/24 3:40 PM NURSE DERM [facility] REJ DERMAV During your visit today, we recorded the following information about you: Austin Boss RN 10/16/2024 3:36 PM Signed Pt is identified by name and birthdate: Yes Allergies reviewed: Yes Medication - prescribed and OTC reviewed and updated: Yes Latex allergy: no. Is the patient having any pain? No 0 on a scale of 0 to 10 See flow sheet for treatment record. Protective eyewear given and worn. 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 - pantoprazole DR (PROTONIX) 40 mg tablet Take 1 tablet by mouth daily at 6 am. Patient should start on May 11, 2024. - Lactobacillus acidophilus (PROBIOTIC ORAL) Take 1 capsule by mouth once daily. - Cholecalciferol, Vitamin D3, 25 mcg (1,000 unit) cap Take 1,000 Units by mouth once daily. 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] 05/06/2024 Age-related osteoporosis without current pathol*05/06/2024 Lymphadenopathy [R59.1] 05/06/2024 Eosinophilia [D72.10] 05/08/2024 Eczema [L30.9] 05/08/2024 Peripheral eosinophilia [D72.19] 05/09/2024 Questionnaire: DERMATOLOGY PHOTOTHERAPY TX DX -> spongiotic dermatitis ORDERING PHYSICIAN -> Cmt: jacob SAHU TYPE -> NARROW BAND UVB (MJ/CM2) TX FREQ -> 3X/WK INITIAL DOSE -> 220 MAX DOSE -> 3000 INCREASE BY -> 25-50 TX# -> 28 DOSE -> 270 DOSE ADJ -> 0 COMMENTS: -> tolerating well Encounter Status:Closed by AUSTIN BOSS on 10/16/24 PROGRESS Observed: 10/16/2024 3:32 PM Status: COMPLETED Source: [facility] HNO ID: [id number] Author: AUSTIN BOSS RN Service: ? Author Type: Registered Nurse Type: Progress Notes Filed: 10/16/2024 15:36 Note Text: Pt is identified by name and birthdate: Yes Allergies reviewed: Yes Medication - prescribed and OTC reviewed and updated: Yes Latex allergy: no. Is the patient having any pain? No 0 on a scale of 0 to 10 See flow sheet for treatment record. Protective eyewear given and worn. Austin Boss RN October 16, 2024 3:32 PM CNNURSE Observed: 10/13/2024 3:20 PM Status: COMPLETED Source: [facility] Nurse Visit (DERMAV) MIRIAN CORRALES ([id number]) 1955 F Date Time Provider Department 10/13/24 3:20 PM NURSE DERM [facility] REJ DERMAV During your visit today, we recorded the following information about you: Sonam Freitas RN 10/13/2024 3:20 PM Signed Pt is identified by name and birthdate: Yes Allergies reviewed: Yes Medication - prescribed and OTC reviewed and updated: Yes Latex allergy: no. Is the patient having any pain? No 0 on a scale of 0 to 10 See flow sheet for treatment record. Protective eyewear given and worn. 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 - pantoprazole DR (PROTONIX) 40 mg tablet Take 1 tablet by mouth daily at 6 am. Patient should start on May 11, 2024. - Lactobacillus acidophilus (PROBIOTIC ORAL) Take 1 capsule by mouth once daily. - Cholecalciferol, Vitamin D3, 25 mcg (1,000 unit) cap Take 1,000 Units by mouth once daily. 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] 05/06/2024 Age-related osteoporosis without current pathol*05/06/2024 Lymphadenopathy [R59.1] 05/06/2024 Eosinophilia [D72.10] 05/08/2024 Eczema [L30.9] 05/08/2024 Peripheral eosinophilia [D72.19] 05/09/2024 Questionnaire: DERMATOLOGY PHOTOTHERAPY TX DX -> spongiotic dermatitis ORDERING PHYSICIAN -> Cmt: Jacob TX TYPE -> NARROW BAND UVB (MJ/CM2) TX FREQ -> 3X/WK INITIAL DOSE -> 220 MAX DOSE -> 3000 INCREASE BY -> 25-50 TX# -> 27 DOSE -> 270 DOSE ADJ -> same COMMENTS: -> pt tolerated without issue Encounter Status:Closed by SONAM FREITAS on 10/13/24 PROGRESS Observed: 10/13/2024 3:18 PM Status: COMPLETED Source: [facility] ID: [id number] Author: SONAM FREITAS RN Service: ? Author Type: Registered Nurse Type: Progress Notes Filed: 10/13/2024 15:20 Note Text: Pt is identified by name and birthdate: Yes Allergies reviewed: Yes Medication - prescribed and OTC reviewed and updated: Yes Latex allergy: no. Is the patient having any pain? No 0 on a scale of 0 to 10 See flow sheet for treatment record. Protective eyewear given and worn. Sonam Freitas RN October 13, 2024 3:19 PM CNDAMIAN Observed: 10/12/2024 2:00 PM Status: COMPLETED Source: [facility] Office Visit (LOORRM) MIRIAN CORRALES ([id number]) 1955 F Date Time Provider Department 10/12/24 2:00 PM NENITA KENLUIS FDeny During your visit today, we recorded the following information about you: Nenita Ken MD 10/13/2024 12:18 PM Signed [facility] NOTE [facility] NAME: MIRIAN CORRALES CLINIC NO.: [id number] DATE OF SERVICE: 10/12/2024 ATTENDING PHYSICIAN: Nenita Ken II, M.D. 2nd opinion, referred by Dr. Stanley, [facility] management development specialist. CHIEF COMPLAINT: Pain in the right hip and groin with walking and going up and down stairs. WHEN: For the last 5 years, initially would come and go and now it is constant. HOW: Insidious onset. WHERE: At home. No history of trauma. PAST MEDICAL TREATMENT: NSAIDs: Ibuprofen twice a day 1 tablet. Tylenol Arthritis. PT: None. Injections: None. PAST SURGICAL TREATMENT: None. REVIEW OF SYSTEMS: Cardiovascular: No history of heart disease. No cardiac medication. Respiratory: No history of lung disease. Gastrointestinal: No history of ulcers. Endocrine: No history of diabetes. Heme: No history of phlebitis, blood clots or bleeding disorders. Urinary: No history of urinary tract infection. Allergies: WHEAT, DAIRY. No metal allergies. PHYSICAL EXAMINATION: A 69-year-old 5 foot 6 inches and 114 pounds. BMI is 20.98. Patient complains of pain mainly in her right groin, but also higher up in the hip. Has good range of motion of the left hip. Has reasonable range of motion of the right hip, but no significant IR. Neurovascularly intact. Good range of motion of her right knee. Gets out of a chair with some hesitancy and walks freely, can turn and come back. Calf is soft, nontender. No evidence of phlebitis. Dorsalis pedis, posterior tibial pulses good. X-RAYS: AP of the pelvis to include both hips along with an AP and lateral of the right hip shows severe degenerative arthritis with complete loss of cartilaginous space from the right hip. 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 Leg lengths appear normal and equal. IMPRESSION: Severe degenerative arthritis of the right hip. We have discussed the procedure, the risks and the anticipated results. The patient is currently being worked up cause of a full body eczema which she had and is now being controlled with light therapy. The patient is in the process of having allergy testing through [facility]. Recommend that she certainly gets this eczema issue corified prior to surgery. The risks and anticipated results of surgery were thoroughly gone over. The patient is thinking about having something done this summer. She will be back in touch with us. DICTATED BY: Nenita Ken II, M.D. MCK/AQT JOB# [id number] [employer] Farm[employer]: CLINIC NOTE ID: [id number] 10/12/2024 3:57 PM Author: NENITA KEN Signed by NENITA KEN MD on 10/13/2024 at 12:18 PM Document text: [facility] NOTE [facility] NAME: MIRIAN CORRALES CLINIC NO.: [id number] DATE OF SERVICE: 10/12/2024 ATTENDING PHYSICIAN: Nenita Ken II, M.D. 2nd opinion, referred by Dr. Stanley [facility] management development specialist. CHIEF COMPLAINT: Pain in the right hip and groin with walking and going up and down stairs. WHEN: For the last 5 years, initially would come and go and now it is constant. HOW: Insidious onset. WHERE: At home. No history of trauma. PAST MEDICAL TREATMENT: NSAIDs: Ibuprofen twice a day 1 tablet. Tylenol Arthritis. PT: None. Injections: None. PAST SURGICAL TREATMENT: None. REVIEW OF SYSTEMS: Cardiovascular: No history of heart disease. No cardiac medication. Respiratory: No history of lung disease. Gastrointestinal: No history of ulcers. Endocrine: No history of diabetes. Heme: No history of phlebitis, blood clots or bleeding disorders. Urinary: No history of urinary tract infection. Allergies: WHEAT, DAIRY. No metal allergies. PHYSICAL EXAMINATION: A 69-year-old 5 foot 6 inches and 114 pounds. BMI is 20.98. Patient complains of pain mainly in her right groin, but also higher up in the hip. Has good range of motion of the left hip. Has reasonable range of motion of the right hip, but no significant IR. Neurovascularly intact. Good range of motion of her right knee. Gets out of a chair with some hesitancy and walks freely, can turn and come back. Calf is soft, nontender. No evidence of phlebitis. Dorsalis pedis, posterior tibial pulses good. X-RAYS: AP of the pelvis to include both hips along with an AP and lateral of the right hip shows severe degenerative arthritis with complete loss of cartilaginous space from the right hip. 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 Leg lengths appear normal and equal. IMPRESSION: Severe degenerative arthritis of the right hip. We have discussed the procedure, the risks and the anticipated results. The patient is currently being worked up cause of a full body eczema which she had and is now being controlled with light therapy. The patient is in the process of having allergy testing through [facility]. Recommend that she certainly gets this eczema issue corified prior to surgery. The risks and anticipated results of surgery were thoroughly gone over. The patient is thinking about having something done this summer. She will be back in touch with us. DICTATED BY: Uday Edwards II/ADONAY JOB# [id number] Referring Provider: CONNER STANLEY [[id number]] Allergies As of Date: 10/12/2024 Noted Allergy Reaction WHEAT 08/24/2019 7 - Swelling DAIRY AID (LACTASE) 08/24/2019 7 - Swelling Comments: Bloating Date Reviewed: 10/11/2024 Reviewed by: Sonam Freitas RN - Fully Assessed Primary Visit Diagnosis:Primary osteoarthritis of right hip [M16.11] Order(s):XR HIP GENERAL 3V PELV/AP/LAT RIGHT [[id number]] Order #: [id number] FUTURE XR HIP GENERAL 3V PELV/AP/LAT RIGHT [[id number]] Order #: [id number] FUTURE Prescriptions as of 10/16/2024 - white petrolatum (AQUAPHOR) 41 % topical ointment Apply to affected area as needed. - pantoprazole DR (PROTONIX) 40 mg tablet Take 1 tablet by mouth daily at 6 am. Patient should start on May 11, 2024. - Lactobacillus acidophilus (PROBIOTIC ORAL) Take 1 capsule by mouth once daily. - Cholecalciferol, Vitamin D3, 25 mcg (1,000 unit) cap Take 1,000 Units by mouth once daily. 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] 05/06/2024 Age-related osteoporosis without current pathol*05/06/2024 Lymphadenopathy [R59.1] 05/06/2024 Eosinophilia [D72.10] 05/08/2024 Eczema [L30.9] 05/08/2024 Peripheral eosinophilia [D72.19] 05/09/2024 Letter Text Encounter Status:Closed by NENITA KEN II on 10/16/24 XR HIP 3V PELV+ AP/LAT RT Observed: 09/21 1:46 PM Status: F Source: [facility] * * *Final Report* * * DATE OF EXAM: Oct 12 2024 1:46PM [id number] - XR HIP 3V PELV+ AP/LAT RT / PROCEDURE REASON: Primary osteoarthritis of right hip * * * * Physician Interpretation * * * * HISTORY (as given from clinical provider): Primary osteoarthritis of right hip . Additional history provided by the performing technologist (if any): --> PAIN IN RIGHT HIP TECHNIQUE: XR HIP 3V PELV+ AP/LAT RT COMPARISON: None RESULT: Severe osteoarthritis of the right hip. No other significant abnormality. Dyeing Machine Tender: QUINN Transcribe Date/Time: Oct 12 2024 3:26P Dictated by : USHA MILLS MD This examination was interpreted and the report reviewed and electronically signed by: USHA MILLS MD on Oct 12 2024 3:26PM EST [id number] PROGRESS Observed: 10/12/2024 1:43 PM Status: COMPLETED Source: [facility] HNO ID: [id number] Author: KIERA HARRIS RT(R) Service: ? Author Type: Technologist Type: Progress Notes Filed: 10/12/2024 13:43 Note Text: Radiology Service Progress Note PATIENT NAME: Mirian Corrales DATE OF SERVICE: October 12, 2024 TIME: 1:43 PM PATIENT IDENTITY VERIFICATION COMPLETED USING TWO (2) IDENTIFIERS: Name and Date of confirmed by patient verbally. FALL SCREENING: Has the patient had 2 falls in the last year or 1 fall with injury or currently using an Ambulatory Assistive Device (Walker, Cane, Wheelchair, Crutches, etc.)? No PATIENT GENDER DATA: Assigned female at . status: : No status: NO. PATIENT RELEVANT IMPLANT DATA REVIEWED: Not Applicable PATIENT PRESENTS WITH AN IMPLANTABLE OR ATTACHED SKIP PIT WORKER: No RADIOLOGY DEPARTMENT: General X-ray: Exam(s) Completed: Pelvis X-Ray: Pelvis with Hip Right PERIPHERAL IV DATA: Not applicable SIGNED BY: RT MAXIMUS(R) October 12, 2024 1:43 PM PROGRESS Observed: 10/12/2024 12:00 AM Status: COMPLETED Source: [facility] HNO ID: [id number] Author: NENITA KEN MD Service: Orthopaedic Surgery Author Type: Physician Type: Progress Notes Filed: 10/13/2024 12:18 Note Text: [facility] NOTE [facility] NAME: MIRIAN CORRALES [facility] NO.: [id number] DATE OF SERVICE: 10/12/2024 ATTENDING PHYSICIAN: Nenita Ken II, M.D. 2nd opinion, referred by Dr. Stanley [facility] management development specialist. CHIEF COMPLAINT: Pain in the right hip and groin with walking and going up and down stairs. WHEN: For the last 5 years, initially would come and go and now it is constant. HOW: Insidious onset. WHERE: At home. No history of trauma. PAST MEDICAL TREATMENT: NSAIDs: Ibuprofen twice a day 1 tablet. Tylenol Arthritis. PT: None. Injections: None. PAST SURGICAL TREATMENT: None. REVIEW OF SYSTEMS: Cardiovascular: No history of heart disease. No cardiac medication. Respiratory: No history of lung disease. Gastrointestinal: No history of ulcers. Endocrine: No history of diabetes. Heme: No history of phlebitis, blood clots or bleeding disorders. Urinary: No history of urinary tract infection. Allergies: WHEAT, DAIRY. No metal allergies. PHYSICAL EXAMINATION: A 69-year-old 5 foot 6 inches and 114 pounds. BMI is 20.98. Patient complains of pain mainly in her right groin, but also higher up in the hip. Has good range of motion of the left hip. Has reasonable range of motion of the right hip, but no significant IR. Neurovascularly intact. Good range of motion of her right knee. Gets out of a chair with some hesitancy and walks freely, can turn and come back. Calf is soft, nontender. No evidence of phlebitis. Dorsalis pedis, posterior tibial pulses good. X-RAYS: AP of the pelvis to include both hips along with an AP and lateral of the right hip shows severe degenerative arthritis with complete loss of cartilaginous space from the right hip. 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 Leg lengths appear normal and equal. IMPRESSION: Severe degenerative arthritis of the right hip. We have discussed the procedure, the risks and the anticipated results. The patient is currently being worked up cause of a full body eczema which she had and is now being controlled with light therapy. The patient is in the process of having allergy testing through [facility]. Recommend that she certainly gets this eczema issue corified prior to surgery. The risks and anticipated results of surgery were thoroughly gone over. The patient is thinking about having something done this summer. She will be back in touch with us. DICTATED BY: Uday Edwards II/ADONAY JOB# [id number] PROGRESS Observed: 10/11/2024 3:44 PM Status: COMPLETED Source: [facility] HNO ID: [id number] Author: SONAM FREITAS RN Service: ? Author Type: Registered Nurse Type: Progress Notes Filed: 10/11/2024 15:46 Note Text: Pt is identified by name and birthdate: Yes Allergies reviewed: Yes Medication - prescribed and OTC reviewed and updated: Yes Latex allergy: no. Is the patient having any pain? No 0 on a scale of 0 to 10 See flow sheet for treatment record. Protective eyewear given and worn. Sonam Freitas RN October 11, 2024 3:45 PM CNNURSE Observed: 10/11/2024 3:40 PM Status: COMPLETED Source: [facility] Nurse Visit (DERMAV) MIRIAN CORRALES ([id number]) 1955 F Date Time Provider Department 10/11/24 3:40 PM NURSE DERM [facility] DERMJUSTYNA During your visit today, we recorded the following information about you: Sonam Freitas RN 10/11/2024 3:46 PM Signed Pt is identified by name and birthdate: Yes Allergies reviewed: Yes Medication - prescribed and OTC reviewed and updated: Yes Latex allergy: no. Is the patient having any pain? No 0 on a scale of 0 to 10 See flow sheet for treatment record. Protective eyewear given and worn. 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 - pantoprazole DR (PROTONIX) 40 mg tablet Take 1 tablet by mouth daily at 6 am. Patient should start on May 11, 2024. - Lactobacillus acidophilus (PROBIOTIC ORAL) Take 1 capsule by mouth once daily. - Cholecalciferol, Vitamin D3, 25 mcg (1,000 unit) cap Take 1,000 Units by mouth once daily. 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] 05/06/2024 Age-related osteoporosis without current pathol*05/06/2024 Lymphadenopathy [R59.1] 05/06/2024 Eosinophilia [D72.10] 05/08/2024 Eczema [L30.9] 05/08/2024 Peripheral eosinophilia [D72.19] 05/09/2024 Questionnaire: DERMATOLOGY PHOTOTHERAPY TX DX -> spongiotic dermatitis ORDERING PHYSICIAN -> Cmt: Jacob SAHU TYPE -> NARROW BAND UVB (MJ/CM2) TX FREQ -> 3X/WK INITIAL DOSE -> 220 MAX DOSE -> 3000 INCREASE BY -> 25-50 TX# -> 26 DOSE -> 270 DOSE ADJ -> same COMMENTS: -> pt tolerated without issue Encounter Status:Closed by SONAM FREITAS on 10/11/24 CNNURSE Observed: 10/09/2024 3:40 PM Status: COMPLETED Source: [facility] Nurse Visit (DERMAV) MIRIAN CORRALES ([id number]) 1955 F Date Time Provider Department 10/09/24 3:40 PM NURSE DERM [facility] MORENO CORTES During your visit today, we recorded the following information about you: Kierra Harris RN 10/09/2024 3:45 PM Signed Pt is identified by name and birthdate: Yes Allergies reviewed: Yes Medication - prescribed and OTC reviewed and updated: Yes Latex allergy: no. Is the patient having any pain? No 0 on a scale of 0 to 10 See flow sheet for treatment record. Protective eyewear given and worn. 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 - pantoprazole DR (PROTONIX) 40 mg tablet Take 1 tablet by mouth daily at 6 am. Patient should start on May 11, 2024. - Lactobacillus acidophilus (PROBIOTIC ORAL) Take 1 capsule by mouth once daily. - Cholecalciferol, Vitamin D3, 25 mcg (1,000 unit) cap Take 1,000 Units by mouth once daily. 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] 05/06/2024 Age-related osteoporosis without current pathol*05/06/2024 Lymphadenopathy [R59.1] 05/06/2024 Eosinophilia [D72.10] 05/08/2024 Eczema [L30.9] 05/08/2024 Peripheral eosinophilia [D72.19] 05/09/2024 Questionnaire: DERMATOLOGY PHOTOTHERAPY TX DX -> spongiotic dermatitis ORDERING PHYSICIAN -> Cmt: Jacob TX TYPE -> NARROW BAND UVB (MJ/CM2) TX FREQ -> 3X/WK INITIAL DOSE -> 220 MAX DOSE -> 3000 INCREASE BY -> 25-50 TX# -> 24 DOSE -> 570 DOSE ADJ -> No increase COMMENTS: -> Patient tolerated well Encounter Status:Closed by KIERRA HARRIS on 10/09/24 PROGRESS Observed: 10/09/2024 3:26 PM Status: COMPLETED Source: [facility] HNO ID: [id number] Author: KIERRA HARRIS RN Service: ? Author Type: Registered Nurse Type: Progress Notes Filed: 10/09/2024 15:45 Note Text: Pt is identified by name and birthdate: Yes Allergies reviewed: Yes Medication - prescribed and OTC reviewed and updated: Yes Latex allergy: no. Is the patient having any pain? No 0 on a scale of 0 to 10 See flow sheet for treatment record. Protective eyewear given and worn. Kierra Harris RN CNNURSE Observed: 10/06/2024 3:40 PM Status: COMPLETED Source: [facility] Nurse Visit (DERMAV) MIRIAN CORRALES ([id number]) 1955 F Date Time Provider Department 10/06/24 3:40 PM NURSE DERM [facility] REJ DERMJUSTYNA During your visit today, we recorded the following information about you: Sonam Freitas RN 10/06/2024 2:30 PM Signed Pt is identified by name and birthdate: Yes Allergies reviewed: Yes Medication - prescribed and OTC reviewed and updated: Yes Latex allergy: no. Is the patient having any pain? No 0 on a scale of 0 to 10 See flow sheet for treatment record. Protective eyewear given and worn. 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 - pantoprazole DR (PROTONIX) 40 mg tablet Take 1 tablet by mouth daily at 6 am. Patient should start on May 11, 2024. - Lactobacillus acidophilus (PROBIOTIC ORAL) Take 1 capsule by mouth once daily. - Cholecalciferol, Vitamin D3, 25 mcg (1,000 unit) cap Take 1,000 Units by mouth once daily. 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] 05/06/2024 Age-related osteoporosis without current pathol*05/06/2024 Lymphadenopathy [R59.1] 05/06/2024 Eosinophilia [D72.10] 05/08/2024 Eczema [L30.9] 05/08/2024 Peripheral eosinophilia [D72.19] 05/09/2024 Questionnaire: DERMATOLOGY PHOTOTHERAPY TX DX -> spongiotic dermatitis ORDERING PHYSICIAN -> Cmt: Jacob SAHU TYPE -> NARROW BAND UVB (MJ/CM2) TX FREQ -> 3X/WK INITIAL DOSE -> 220 MAX DOSE -> 3000 INCREASE BY -> 25-50 TX# -> 24 DOSE -> 270 DOSE ADJ -> no change COMMENTS: -> pt tolerated without issue Encounter Status:Closed by SONAM FREITAS on 10/06/24 PROGRESS Observed: 10/06/2024 2:29 PM Status: COMPLETED Source: [facility] HNO ID: [id number] Author: SONAM FREITAS RN Service: ? Author Type: Registered Nurse Type: Progress Notes Filed: 10/06/2024 14:30 Note Text: Pt is identified by name and birthdate: Yes Allergies reviewed: Yes Medication - prescribed and OTC reviewed and updated: Yes Latex allergy: no. Is the patient having any pain? No 0 on a scale of 0 to 10 See flow sheet for treatment record. Protective eyewear given and worn. Sonam Freitas RN October 06, 2024 2:29 PM CNNURSE Observed: 10/04/2024 3:40 PM Status: COMPLETED Source: [facility] Nurse Visit (DERMAV) MIRIAN CORRALES ([id number]) 1955 F Date Time Provider Department 10/04/24 3:40 PM NURSE DERM [facility] [place] DERMJUSTYNA During your visit today, we recorded the following information about you: Allergies As of Date: 10/04/2024 Noted Allergy Reaction WHEAT 08/24/2019 7 - Swelling DAIRY AID (LACTASE) 08/24/2019 7 - Swelling Comments: Bloating Date Reviewed: 10/04/2024 Reviewed by: Jono Merritt, RN - Fully Assessed Reason for Visit: Light Treatments [1093] Primary Visit Diagnosis: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 - pantoprazole DR (PROTONIX) 40 mg tablet Take 1 tablet by mouth daily at 6 am. Patient should start on May 11, 2024. - Lactobacillus acidophilus (PROBIOTIC ORAL) Take 1 capsule by mouth once daily. - Cholecalciferol, Vitamin D3, 25 mcg (1,000 unit) cap Take 1,000 Units by mouth once daily. 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] 05/06/2024 Age-related osteoporosis without current pathol*05/06/2024 Lymphadenopathy [R59.1] 05/06/2024 Eosinophilia [D72.10] 05/08/2024 Eczema [L30.9] 05/08/2024 Peripheral eosinophilia [D72.19] 05/09/2024 Questionnaire: DERMATOLOGY PHOTOTHERAPY TX DX -> spongiotic dermatitis ORDERING PHYSICIAN -> Cmt: Jacob TX TYPE -> NARROW BAND UVB (MJ/CM2) TX FREQ -> 3X/WK INITIAL DOSE -> 220 MAX DOSE -> 3000 INCREASE BY -> 25-25 TX# -> 23 DOSE -> 270 DOSE ADJ -> 25 COMMENTS: -> Tolerated Encounter Status:Closed by JONO MERRITT on 10/04/24 PROGRESS Observed: 10/02/2024 4:51 PM Status: COMPLETED Source: [facility] HNO ID: [id number] Author: KIERRA HARRIS RN Service: ? Author Type: Registered Nurse Type: Progress Notes Filed: 10/02/2024 16:53 Note Text: Pt is identified by name and birthdate: Yes Allergies reviewed: Yes Medication - prescribed and OTC reviewed and updated: Yes Latex allergy: no. Is the patient having any pain? No 0 on a scale of 0 to 10 See flow sheet for treatment record. Protective eyewear given and worn. Kierra Harris RN October 02, 2024 4:51 PM CNNURSE Observed: 10/02/2024 3:40 PM Status: COMPLETED Source: [facility] Nurse Visit (DERMAV) MIRIAN CORRALES ([id number]) 1955 F Date Time Provider Department 10/02/24 3:40 PM NURSE DERM [facility] MORENO CORTES During your visit today, we recorded the following information about you: Kierra Harris RN 10/02/2024 4:53 PM Signed Pt is identified by name and birthdate: Yes Allergies reviewed: Yes Medication - prescribed and OTC reviewed and updated: Yes Latex allergy: no. Is the patient having any pain? No 0 on a scale of 0 to 10 See flow sheet for treatment record. Protective eyewear given and worn. 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 - pantoprazole DR (PROTONIX) 40 mg tablet Take 1 tablet by mouth daily at 6 am. Patient should start on May 11, 2024. - Lactobacillus acidophilus (PROBIOTIC ORAL) Take 1 capsule by mouth once daily. - Cholecalciferol, Vitamin D3, 25 mcg (1,000 unit) cap Take 1,000 Units by mouth once daily. 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 Author Type: Registered Nurse Type: Progress Notes Filed: 09/27/2024 15:51 Note Text: Pt is identified by name and birthdate: Yes Allergies reviewed: Yes Medication - prescribed and OTC reviewed and updated: Yes Latex allergy: no. Is the patient having any pain? No 0 on a scale of 0 to 10 See flow sheet for treatment record. Protective eyewear given and worn. Sonam Freitas RN September 27, 2024 3:50 PM CNNURSE Observed: 09/27/2024 3:40 PM Status: COMPLETED Source: [facility] Nurse Visit (DERMAV) MIRIAN CORRALES ([id number]) 1955 F Date Time Provider Department 09/27/24 3:40 PM NURSE DERM [facility] MOR[place] CORTES During your visit today, we recorded the following information about you: Sonam Freitas RN 09/27/2024 3:51 PM Signed Pt is identified by name and birthdate: Yes Allergies reviewed: Yes Medication - prescribed and OTC reviewed and updated: Yes Latex allergy: no. Is the patient having any pain? No 0 on a scale of 0 to 10 See flow sheet for treatment record. Protective eyewear given and worn. 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 - pantoprazole DR (PROTONIX) 40 mg tablet Take 1 tablet by mouth daily at 6 am. Patient should start on May 11, 2024. - Lactobacillus acidophilus (PROBIOTIC ORAL) Take 1 capsule by mouth once daily. - Cholecalciferol, Vitamin D3, 25 mcg (1,000 unit) cap Take 1,000 Units by mouth once daily. 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] 05/06/2024 Age-related osteoporosis without current pathol*05/06/2024 Lymphadenopathy [R59.1] 05/06/2024 Eosinophilia [D72.10] 05/08/2024 Eczema [L30.9] 05/08/2024 Peripheral eosinophilia [D72.19] 05/09/2024 Questionnaire: DERMATOLOGY PHOTOTHERAPY TX DX -> spongiotic dermatitis ORDERING PHYSICIAN -> Cmt: Jacob TX TYPE -> NARROW BAND UVB (MJ/CM2) TX FREQ -> 3X/WK INITIAL DOSE -> 220 MAX DOSE -> 3000 INCREASE BY -> 25-50 TX# -> 21 DOSE -> 245 DOSE ADJ -> increased 25 COMMENTS: -> pt tolerated without issue Encounter Status:Closed by SONAM FREITAS on 09/27/24 XR HIP RT MIN 2V(W/WO PELVIS)* Observed: 09/26/2024 7:05 PM Status: COMPLETED Source: [facility] [place] [address] XRay Report Signed Patient: Mirian Corrales MR#: [id number] : 1955 Acct:[id number] Age/Sex: 68 / F ADM Date: 09/26/24 Loc: XD Room: Type: [facility] Attending Dr: Pili ALMONTE Copies to: Pili ALMONTE Ordering Provider: Pili ALMONTE Date of Service: 09/26/24 XR/XR hip RT min 2V(w/wo pelvis)*: R53.83, K90.41,D75.839 XR hip RT min 2V(w/wo pelvis)* 09/26/2024 10:33 AM SIGNS AND SYMPTOMS: Right hip pain PROTOCOL: Frontal and frog-leg views of the right hip COMPARISON: None FINDINGS: There is moderate to severe narrowing of the right hip joint space with subchondral sclerosis on both sides of the joint. The visualized bony ring of the pelvis is intact. Vascular calcifications are present in the pelvis. No fracture or dislocation. XR/XR hip RT min 2V(w/wo pelvis)* IMPRESSION: Degenerative changes are noted in the right hip joint space. No acute bony injury. Impression dictated by: Patrick Leiva M.D.09/26/2024 7:05 PM Dictation Location: [facility]--17 Transcribed By: [facility] 09/26/241904 Dictated By: Patrick Leiva II, MD 09/26/241904 Signed By: <Electronically signed by Patrick Leiva II, MD in OV> 09/26/241904 COMPLETE BLOOD COUNT AUTO DIFF Collected: 09/26/2024 10:43 AM Status: F Source: [facility] TYPE CODE TESTS RESULT OUT OF RANGE REFERENCE UNITS LAB WBC White Blood Count 6.2 Normal 3.8-11.6 10*3/uL LAB UNWBC Uncorrected WBC 6.2 Normal 3.8-11.6 10*3/uL LAB RBC Red Blood Count 3.96 Normal 3.60-5.00 10*6/u L LAB HGB Hemoglobin 11.7 Low 11.8-15.4 g/dL LAB HCT Hematocrit 35.0 Normal 34.0-46.4 % LAB MCV Mean Corpuscular Volume 88.4 Normal 80-100 fL LAB MCH Mean Corpuscular Hemoglobin 29.5 Normal 24.7-34.3 pg LAB MCHC Mean Corpuscular HGB Conc 33.4 Normal 32.0-35.0 g/dL LAB RDW Red Cell Distribution Width 12.8 Normal 11.9-15.3 % LAB PLT Platelet Count 336 Normal 150-450 10*3/uL LAB MPV Mean Platelet Volume 7.6 Normal 6.3-10.7 fL LAB NE% Neutrophils % (Auto) 65.4 . % LAB LY% Lymphocytes % (Auto) 14.0 . % LAB MO% Monocytes % (Auto) 12.2 . % LAB EO% Eosinophils % (Auto) 7.1 . % LAB BA% Basophils % (Auto) 1.3 . % LAB NRBC% NRBC% 0.2 Normal 0-0.5 /100{WBC} LAB NE# Neutrophils # (Auto) 4.1 Normal 1.8-7.7 10*3/uL LAB LY# Lymphocytes # (Auto) 0.9 Low 1.00-4.8 10*3/uL LAB MO# Monocytes # (Auto) 0.8 Normal 0.0-0.8 10*3/uL LAB EO# Eosinophils # (Auto) 0.4 Normal 0.0-0.45 10*3/uL LAB BA# Basophils # (Auto) 0.1 Normal 0.0-0.2 10*3/uL Result Comment: PERFORMED BY : [facility] [address] [place] [address] PATHOLOGIST EDDY CURRENT INSPECTOR LUCIAN HAQ M.D. Performed By: #### TSH3, FE, TIBC, CBC, CMP #### [facility] [address] #### CELIAC #### [facility] , COMPREHENSIVE METABOLIC PANEL Collected: 09/26/2024 1 0:43 AM Status: F Source: [facility] TYPE CODE TESTS RESULT OUT OF RANGE REFERENCE UNITS LAB GLU Glucose 87 Normal 70-100 mg/dL Result Comment: Random Gluco se Reference Range is dependent on time and content of last meal. Glucose of more than 200 mg/dL in a nonstressed, ambulatory subject supports the diagnosis of Diabetes Mellitus. ADA recommended reference range LAB BUN Blood Urea Nitrogen 13 Normal 7-25 mg/d L LAB CREATT Creatinine 0.69 Normal 0.60-1.20 mg/dL LAB GFReNR Estimated GFR >60.0 mL/Min LAB NA Sodium 138 Normal 136-145 mmol/L LAB K Potassium 4.2 Normal 3.5-5.1 mmol/L LAB CL Chloride 102 Normal 98-107 mmol/L LAB CO2 Carbon Dioxide 29.9 Normal 21.0-31.0 mmol/L LAB GAP Anion Gap 10.3 Normal 6.0-15.0 meq/L LAB CA Calcium 9.4 Normal 8.6-10.3 mg/dL LAB TP Total Protein 7.4 Normal 6.4-8.9 g/dL LAB ALB Albumin Level 3.9 Normal 3.5-5.7 g/dL LAB GLOB Globulin 3.5 g/dL LAB AGRATIO Albumin/Globulin Ratio 1.1 LAB BILIT Bilirubin,Total 0.6 Normal 0.3-1.0 mg/dL LAB AST Aspartate Amino Transferase 25 Normal 13-39 U/L LAB ALT Alanine Aminotransferase 11 Normal 7-52 U/L LAB ALP Alkaline Phosphatase 58 Normal 34-104 U/L Performed By: #### TSH3, FE, TIBC, CBC, CMP #### [place] [address] [place] #### CELIAC #### [facility] , TOTAL IRON BINDING CAPACITY Collected: 09/26/2024 10: 43 AM Status: F Source: [facility] TYPE CODE TESTS RESULT OUT OF RANGE REFERENCE UNITS LAB TIBCT Total Iron Binding Capacity 333 Normal 255-450 ug/dL LAB TRANS Transferrin 238 Normal 203-362 mg/dL Performed By: #### TSH3, FE, TIBC, CBC, CMP #### [place] [address] [place] #### CELIAC #### [facility] , IRON Collected: 10:43 AM Status: F Source: [facility] TYPE CODE TESTS RESULT OUT OF RANGE REFERENCE UNITS LAB FE Iron 71 Normal 50-212 ug/dL Performed By: #### TSH3, FE, TIBC, CBC, CMP #### [address] #### CELIAC #### [facility] , THYROID STIMULATING HORMONE Collected: 09/26/2024 10:43 AM Status: F Source: [facility] TYPE CODE TESTS RESULT OUT OF RANGE REFERENCE UNITS LAB TSH3 Thyroid Stimulating Hormone 1.65 Normal 0.45-5.33 u[iU]/mL Result Comment: PERFORMED BY : [place] [address] PATHOLOGIST EDDY CURRENT INSPECTOR LUCIAN HAQ M.D. Performed By: #### TSH3, FE, TIBC, CBC, CMP #### [address] #### CELIAC #### [facility] , CELIAC Collected: 09/26/2024 10:43 AM Status: C Source: [facility] Order Comment: Specimen Comm ent: A duplicate report has been generated due to demographic Specimen Comment: updates. TYPE CODE TESTS RESULT OUT OF RANGE REFERENCE UNITS LAB DGA IGA Deamidated Gliadin Abs, IgA 4 0-19 Result Comment: Negative 0 - 19 Weak Positive 20 - 30 Moderate to Strong Positive >30 --- 09/28/241406 --- Gliadin Abs,IgA previously reported as: See Scanned Rpt LAB DGA IGG Deamidated Gliadin Abs, IgG 3 0-19 Result Comment: Negative 0 - 19 Weak Positive 20 - 30 Moderate to Strong Positive >30 --- 09/28/241406 --- Gliadin Abs,IgG previously reported as: See Scanned Rpt LAB TTG IGA T-Transglutamina s e (tTG) IgA <2 0-3 Result Comment: Negative 0 - 3 Weak Positive 4 - 10 Positive >10 Tissue Transglutaminase (tTG) has been identified as the endomysial antigen. Studies have demonstr- ated that endomysial IgA antibodies have over 99% specificity for gluten sensitive enteropathy. --- 09/28/241406 --- tTG IgA previously reported as: See Scanned Rpt LAB TTG IGG T-Transglutamina s e (tTG) IgG 14 High 0-5 Result Comment: Negative 0 - 5 Weak Positive 6 - 9 Positive >9 --- 09/28/241406 --- tTG IgG previously reported as: See Scanned Rpt LAB ENDOMYS IGA Endomysial Antibody IgA Negative Negative Result Comment: --- 09/28/241406 --- Endomysial IgA previously reported as: See Scanned Rpt LAB CELIAC IGA Immunoglobulin A , Qn, Serum 200 87-352 mg/dL Result Comment: Performed at : [facility] [place] [id number] Architecture Technician: Lj Solano PhD, Phone: [phone] --- 09/28/241406 --- IgA, Serum previously reported as: See Scanned Rpt PERFORMED BY: [place] [address] PATHOLOGIST EDDY CURRENT INSPECTOR LUCIAN HAQ M.D. Performed By: #### TSH3, FE, TIBC, CBC, CMP #### [address] #### CELIAC #### [facility] , CNNURSE Observed: 09/25/2024 3:40 PM Status: COMPLETED Source: [facility] Nurse Visit (DERMAV) MIRIAN CORRALES ([id number]) 1955 F Date Time Provider Department 09/25/24 3:40 PM NURSE DERM [facility] REJ DERMAV During your visit today, we recorded the following information about you: Sonam Freitas RN 09/25/2024 3:30 PM Signed Pt is identified by name and birthdate: Yes Allergies reviewed: Yes Medication - prescribed and OTC reviewed and updated: Yes Latex allergy: no. Is the patient having any pain? No 0 on a scale of 0 to 10 See flow sheet for treatment record. Protective eyewear given and worn. 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 - pantoprazole DR (PROTONIX) 40 mg tablet Take 1 tablet by mouth daily at 6 am. Patient should start on May 11, 2024. - Lactobacillus acidophilus (PROBIOTIC ORAL) Take 1 capsule by mouth once daily. - Cholecalciferol, Vitamin D3, 25 mcg (1,000 unit) cap Take 1,000 Units by mouth once daily. Problem List As Of Date 09/25/2024 Noted Resolved Rash [R21] 05/05/2024 Idiopathic hypereosinophilic [...] 3000 INCREASE BY -> 25 TX# -> 20 DOSE -> 220 DOSE ADJ -> no change COMMENTS: -> pt tolerated without issue Encounter Status:Closed by SONAM FREITAS on 09/25/24 PROGRESS Observed: 09/25/2024 3:28 PM Status: COMPLETED Source: [facility] HNO ID: [id number] Author: SONAM FREITAS RN Service: ? Author Type: Registered Nurse Type: Progress Notes Filed: 09/25/2024 15:30 Note Text: Pt is identified by name and birthdate: Yes Allergies reviewed: Yes Medication - prescribed and OTC reviewed and updated: Yes Latex allergy: no. Is the patient having any pain? No 0 on a scale of 0 to 10 See flow sheet for treatment record. Protective eyewear given and worn. Sonam Freitas RN September 25, 2024 3:29 PM CNNURSE Observed: 09/18/2024 1:20 PM Status: COMPLETED Source: [facility] Nurse Visit (DERMAV) MIRIAN CORRALES ([id number]) 1955 F Date Time Provider Department 09/18/24 1:20 PM NURSE DERM [facility] MORENO CORTES During your visit today, we recorded the following information about you: Austin Boss RN 09/18/2024 1:20 PM Signed Pt is identified by name and birthdate: Yes Allergies reviewed: Yes Medication - prescribed and OTC reviewed and updated: Yes Latex allergy: no. Is the patient having any pain? No 0 on a scale of 0 to 10 See flow sheet for treatment record. Protective eyewear given and worn. 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 - pantoprazole DR (PROTONIX) 40 mg tablet Take 1 tablet by mouth daily at 6 am. Patient should start on May 11, 2024. - Lactobacillus acidophilus (PROBIOTIC ORAL) Take 1 capsule by mouth once daily. - Cholecalciferol, Vitamin D3, 25 mcg (1,000 unit) cap Take 1,000 Units by mouth once daily. 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] 05/06/2024 Age-related osteoporosis without current pathol*05/06/2024 Lymphadenopathy [R59.1] 05/06/2024 Eosinophilia [D72.10] 05/08/2024 Eczema [L30.9] 05/08/2024 Peripheral eosinophilia [D72.19] 05/09/2024 Questionnaire: DERMATOLOGY PHOTOTHERAPY TX DX -> spongiotic dermatitis ORDERING PHYSICIAN -> Cmt: Jacob TX TYPE -> NARROW BAND UVB (MJ/CM2) TX FREQ -> 3X/WK INITIAL DOSE -> 300 MAX DOSE -> 300 INCREASE BY -> 25-50 TX# -> 19 DOSE -> 220 DOSE ADJ -> o COMMENTS: -> patient states causes itching and wants to stay at 220 Encounter Status:Closed by AUSTIN BOSS on 09/18/24 PROGRESS Observed: 09/18/2024 1:16 PM Status: COMPLETED Source: [facility] HNO ID: [id number] Author: AUSTIN BOSS RN Service: ? Author Type: Registered Nurse Type: Progress Notes Filed: 09/18/2024 13:20 Note Text: Pt is identified by name and birthdate: Yes Allergies reviewed: Yes Medication - prescribed and OTC reviewed and updated: Yes Latex allergy: no. Is the patient having any pain? No 0 on a scale of 0 to 10 See flow sheet for treatment record. Protective eyewear given and worn. Austin Boss RN September 18, 2024 1:16 PM PROGRESS Observed: 09/11/2024 1:37 PM Status: COMPLETED Source: [facility] HNO ID: [id number] Author: AUSTIN BOSS RN Service: ? Author Type: Registered Nurse Type: Progress Notes Filed: 09/11/2024 13:41 Note Text: Pt is identified by name and birthdate: Yes Allergies reviewed: Yes Medication - prescribed and OTC reviewed and updated: Yes Latex allergy: no. Is the patient having any pain? No 0 on a scale of 0 to 10 See flow sheet for treatment record. Protective eyewear given and worn. Austin Boss RN September 11, 2024 1:38 PM CNNURSE Observed: 09/11/2024 1:20 PM Status: COMPLETED Source: [facility] Nurse Visit (DERMAV) MIRIAN CORRALES ([id number]) 1955 F Date Time Provider Department 09/11/24 1:20 PM NURSE DERM [facility] M[facility] CORTES During your visit today, we recorded the following information about you: Austin Boss RN 09/11/2024 1:41 PM Signed Pt is identified by name and birthdate: Yes Allergies reviewed: Yes Medication - prescribed and OTC reviewed and updated: Yes Latex allergy: no. Is the patient having any pain? No 0 on a scale of 0 to 10 See flow sheet for treatment record. Protective eyewear given and worn. 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 - pantoprazole DR (PROTONIX) 40 mg tablet Take 1 tablet by mouth daily at 6 am. Patient should start on May 11, 2024. - Lactobacillus acidophilus (PROBIOTIC ORAL) Take 1 capsule by mouth once daily. - Cholecalciferol, Vitamin D3, 25 mcg (1,000 unit) cap Take 1,000 Units by mouth once daily. Problem List As Of Date 09/11/2024 Noted Resolved Rash [R21] 05/05/2024 Idiopathic hypereosinophilic [...] 3000 INCREASE BY -> 25 TX# -> 18 DOSE -> 220 DOSE ADJ -> 0 COMMENTS: -> tolerating well Encounter Status:Closed by AUSTIN BOSS on 09/11/24 PROGRESS Observed: 09/08/2024 4:22 PM Status: COMPLETED Source: [facility] HNO ID: [id number] Author: KIERRA HARRIS RN Service: ? Author Type: Registered Nurse Type: Progress Notes Filed: 09/08/2024 16:25 Note Text: Pt is identified by name and birthdate: Yes Allergies reviewed: Yes Medication - prescribed and OTC reviewed and updated: Yes Latex allergy: no. Is the patient having any pain? No 0 on a scale of 0 to 10 See flow sheet for treatment record. Protective eyewear given and worn. Kierra Harris RN September 08, 2024 4:23 PM CNNURSE Observed: 09/08/2024 4:00 PM Status: COMPLETED Source: [facility] Nurse Visit (DERMAV) MIRIAN CORRALES ([id number]) 1955 F Date Time Provider Department 09/08/24 4:00 PM NURSE DERM [facility] REJ DERMAV During your visit today, we recorded the following information about you: Kierra Harris RN 09/08/2024 4:25 PM Signed Pt is identified by name and birthdate: Yes Allergies reviewed: Yes Medication - prescribed and OTC reviewed and updated: Yes Latex allergy: no. Is the patient having any pain? No 0 on a scale of 0 to 10 See flow sheet for treatment record. Protective eyewear given and worn. 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 - pantoprazole DR (PROTONIX) 40 mg tablet Take 1 tablet by mouth daily at 6 am. Patient should start on May 11, 2024. - Lactobacillus acidophilus (PROBIOTIC ORAL) Take 1 capsule by mouth once daily. - Cholecalciferol, Vitamin D3, 25 mcg (1,000 unit) cap Take 1,000 Units by mouth once daily. 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] 05/06/2024 Age-related osteoporosis without current pathol*05/06/2024 Lymphadenopathy [R59.1] 05/06/2024 Eosinophilia [D72.10] 05/08/2024 Eczema [L30.9] 05/08/2024 Peripheral eosinophilia [D72.19] 05/09/2024 Questionnaire: DERMATOLOGY PHOTOTHERAPY TX DX -> Spongiotic derm ORDERING PHYSICIAN -> Cmt: Jacob SAHU TYPE -> NARROW BAND UVB (MJ/CM2) TX FREQ -> 3X/WK INITIAL DOSE -> 300 MAX DOSE -> 3000 INCREASE BY -> 25 TX# -> 17 DOSE -> 220 DOSE ADJ -> no increase COMMENTS: -> Patient tolerated well Encounter Status:Closed by KIERRA HARRIS on 09/08/24 PROGRESS Observed: 09/06/2024 4:09 PM Status: COMPLETED Source: [facility] HNO ID: [id number] Author: KIERRA HARRIS RN Service: ? Author Type: Registered Nurse Type: Progress Notes Filed: 09/06/2024 16:11 Note Text: Pt is identified by name and birthdate: Yes Allergies reviewed: Yes Medication - prescribed and OTC reviewed and updated: Yes Latex allergy: no. Is the patient having any pain? No 0 on a scale of 0 to 10 See flow sheet for treatment record. Protective eyewear given and worn. Kierra Harris RN September 06, 2024 4:09 PM CNNURSE Observed: 09/06/2024 3:40 PM Status: COMPLETED Source: [facility] Nurse Visit (DERMAV) MIRIAN CORRALES ([id number]) 1955 F Date Time Provider Department 09/06/24 3:40 PM NURSE DERM [facility] REJ DERMAV During your visit today, we recorded the following information about you: Kierra Harris RN 09/06/2024 4:11 PM Signed Pt is identified by name and birthdate: Yes Allergies reviewed: Yes Medication - prescribed and OTC reviewed and updated: Yes Latex allergy: no. Is the patient having any pain? No 0 on a scale of 0 to 10 See flow sheet for treatment record. Protective eyewear given and worn. 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 - pantoprazole DR (PROTONIX) 40 mg tablet Take 1 tablet by mouth daily at 6 am. Patient should start on May 11, 2024. - Lactobacillus acidophilus (PROBIOTIC ORAL) Take 1 capsule by mouth once daily. - Cholecalciferol, Vitamin D3, 25 mcg (1,000 unit) cap Take 1,000 Units by mouth once daily. 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] 05/06/2024 Age-related osteoporosis without current pathol*05/06/2024 Lymphadenopathy [R59.1] 05/06/2024 Eosinophilia [D72.10] 05/08/2024 Eczema [L30.9] 05/08/2024 Peripheral eosinophilia [D72.19] 05/09/2024 Questionnaire: DERMATOLOGY PHOTOTHERAPY TX DX -> Spongiotic dermatis ORDERING PHYSICIAN -> Cmt: Jacob SAHU TYPE -> NARROW BAND UVB (MJ/CM2) TX FREQ -> 3X/WK INITIAL DOSE -> 300 MAX DOSE -> 3000 INCREASE BY -> 25 TX# -> 16 DOSE -> 220 DOSE ADJ -> Decrease by 25 COMMENTS: -> Patient had slight erythema, no increase today Encounter Status:Closed by KIERRA HARRIS on 09/06/24 CNNURSE Observed: 09/01/2024 3:40 PM Status: COMPLETED Source: [facility] Nurse Visit (DERMAV) MIRIAN CORRALES ([id number]) 1955 F Date Time Provider Department 09/01/24 3:40 PM NURSE DERM [facility] M[facility] CORTES During your visit today, we recorded the following information about you: Sonam Freitas RN 09/01/2024 3:34 PM Signed Pt is identified by name and birthdate: Yes Allergies reviewed: Yes Medication - prescribed and OTC reviewed and updated: Yes Latex allergy: no. Is the patient having any pain? No 0 on a scale of 0 to 10 See flow sheet for treatment record. Protective eyewear given and worn. 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 - pantoprazole DR (PROTONIX) 40 mg tablet Take 1 tablet by mouth daily at 6 am. Patient should start on May 11, 2024. - Lactobacillus acidophilus (PROBIOTIC ORAL) Take 1 capsule by mouth once daily. - Cholecalciferol, Vitamin D3, 25 mcg (1,000 unit) cap Take 1,000 Units by mouth once daily. 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 Author Type: Registered Nurse Type: Progress Notes Filed: 09/01/2024 15:34 Note Text: Pt is identified by name and birthdate: Yes Allergies reviewed: Yes Medication - prescribed and OTC reviewed and updated: Yes Latex allergy: no. Is the patient having any pain? No 0 on a scale of 0 to 10 See flow sheet for treatment record. Protective eyewear given and worn. Sonam Freitas RN September 01, 2024 3:33 PM CNNURSE Observed: 08/30/2024 3:40 PM Status: COMPLETED Source: [facility] Nurse Visit (DERMAV) MIRIAN CORRALES ([id number]) 1955 F Date Time Provider Department 08/30/24 3:40 PM NURSE DERM [facility] M[facility] DERMJUSTYNA During your visit today, we recorded the following information about you: Kierra Harris RN 08/30/2024 3:54 PM Signed Pt is identified by name and birthdate: Yes Allergies reviewed: Yes Medication - prescribed and OTC reviewed and updated: Yes Latex allergy: no. Is the patient having any pain? No 0 on a scale of 0 to 10 See flow sheet for treatment record. Protective eyewear given and worn. 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 - pantoprazole DR (PROTONIX) 40 mg tablet Take 1 tablet by mouth daily at 6 am. Patient should start on May 11, 2024. - Lactobacillus acidophilus (PROBIOTIC ORAL) Take 1 capsule by mouth once daily. - Cholecalciferol, Vitamin D3, 25 mcg (1,000 unit) cap Take 1,000 Units by mouth once daily. 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 COMMENTS: -> Patient tolerated well Encounter Status:Closed by KIERRA HARRIS on 08/30/24 PROGRESS Observed: 08/30/2024 3:37 PM Status: COMPLETED Source: [facility] HNO ID: [id number] Author: KIERRA HARRIS RN Service: ? Author Type: Registered Nurse Type: Progress Notes Filed: 08/30/2024 15:54 Note Text: Pt is identified by name and birthdate: Yes Allergies reviewed: Yes Medication - prescribed and OTC reviewed and updated: Yes Latex allergy: no. Is the patient having any pain? No 0 on a scale of 0 to 10 See flow sheet for treatment record. Protective eyewear given and worn. Kierra Harris RN August 30, 2024 3:37 PM CNNURSE Observed: 08/16/2024 3:20 PM Status: COMPLETED Source: [facility] Nurse Visit (DERMAV) MIRIAN CORRALES ([id number]) 1955 F Date Time Provider Department 08/16/24 3:20 PM NURSE DERM [facility] REJ DERMAV During your visit today, we recorded the following information about you: Sonam Freitas RN 08/16/2024 3:20 PM Signed Pt is identified by name and birthdate: Yes Allergies reviewed: Yes Medication - prescribed and OTC reviewed and updated: Yes Latex allergy: no. Is the patient having any pain? No 0 on a scale of 0 to 10 See flow sheet for treatment record. Protective eyewear given and worn. 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 - pantoprazole DR (PROTONIX) 40 mg tablet Take 1 tablet by mouth daily at 6 am. Patient should start on May 11, 2024. - Lactobacillus acidophilus (PROBIOTIC ORAL) Take 1 capsule by mouth once daily. - Cholecalciferol, Vitamin D3, 25 mcg (1,000 unit) cap Take 1,000 Units by mouth once daily. 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 Author Type: Registered Nurse Type: Progress Notes Filed: 08/16/2024 15:20 Note Text: Pt is identified by name and birthdate: Yes Allergies reviewed: Yes Medication - prescribed and OTC reviewed and updated: Yes Latex allergy: no. Is the patient having any pain? No 0 on a scale of 0 to 10 See flow sheet for treatment record. Protective eyewear given and worn. Sonam Freitas RN August 16, 2024 3:18 PM US BREAST BI LIMITED Observed: 8:06 AM Status: COMPLETED Source: [facility] [place] [address] Mammography Report Signed Patient: Mirian Corrales MR#: [id number] : 1955 Acct:[id number] Age/Sex: 68 / F ADM Date: 08/16/24 Loc: IN Room: Type: [facility] Attending Dr: Vonnie Ponce PA-C Copies to: Vonnie Stanley DO Ordering Provider: Vonnie ALMONTE Date of Service: 08/16/24 MM/MM diagnostic mammo BI w/CAD: N60.01 ([id number]) US/US breast BI limited: N60.01 CLINICAL DATA: Bilateral breast lumps. BILATERAL DIAGNOSTIC MAMMOGRAMS - FULL FIELD DIGITAL WITH TOMOSYNTHESIS AND CAD Tomosynthesis craniocaudal and mediolateral oblique views of both breasts were obtained using low- dose digital technique. Comparison is made to prior studies from August 24, 2019 through November 30, 2023. This examination was reviewed with the aid of CAD. There are scattered fibroglandular densities. There is similar asymmetry at the inferior lateral right breast anteriorly. There are no developing masses, typically malignant calcifications or architectural distortion. There has been no significant interval change. LIMITED BILATERAL BREAST ULTRASOUND Real-time ultrasound evaluation at the periphery of the upper outer left breast shows no cystic or solid masses. On the right at the site of palpable concern there is a well-defined hypoechoic nodule measuring 10 x 4 x 8 mm. There is suggestion of a small fatty hilus with blood flow. This is probably a lymph node, possibly reactive. MM/MM diagnostic mammo BI w/CAD IMPRESSION: NO MAMMOGRAPHIC EVIDENCE OF MALIGNANCY. NO ULTRASOUND FINDINGS AT THE SITE OF CONCERN ON THE LEFT. CLINICAL MANAGEMENT IS RECOMMENDED. SUSPECTED LYMPH NODE AT THE SITE OF PALPABLE CONCERN ON THE RIGHT. THIS MAY BE REACTIVE. FOLLOW-UP ULTRASOUND IN 6 MONTHS IS SUGGESTED. RESULT CODE: 3 Probably Benign Finding Short Term Follow-Up DENSITY CODE: 2 (approximately 25-50% glandular) FOLLOW UP: 6M The false-negative rate of mammography is approximately 10-percent. Management of a palpable abnormality must be based on clinical grounds. Patient was entered into a reminder system with a target due date for the next mammogram. Impression dictated by: Megan Phan M.D.08/16/2024 10:03 AM Dictation Location: [facility] Transcribed By: [facility] 08/16/24 1003 Dictated By: Megan Phan MD 08/16/24 0806 Signed By: <Electronically signed by MD Megan Phan in OV> 08/16/24 1003 PROGRESS Observed: 08/14/2024 4:30 PM Status: COMPLETED Source: [facility] ID: [id number] Author: JES LATHAM MD Service: ? Author Type: Physician Type: Progress Notes Filed: 08/14/2024 21:52 Note Text: Department of Dermatology Contact Dermatitis and Patch Testing 08/14/2024 Referred by Yeison Pérez, M* Office Use: Plan: Patch testing with SST (Standard Series Tray) Was this appointment a shared medical appointment? 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 Has started on phototherapy as of 06/2024 with improvement in symptoms. Off of prednisone for 2 weeks. Discussed patch testing is reasonable for this patient. Discussed the purpose and process of patch testing. Counseled on the benefits and risks of patch testing, including negative or non-relevant patch test findings, an inflammatory response to the patches (erythema, pruritus), pigmentary changes, a robust reaction to an allergen that obscures neighboring allergens, and sensitization ([id number]). Discussed importance of keeping area dry during the 5-day period of patch testing, sponge bath as necessary. Advised patient that back should be shielded from phototherapy (using dark towels or 2 white towels) for 21-30 days prior and during patch testing process. Patient Instructions Patient Instructions We are looking forward to assisting you with patch testing. During your visit, we discussed many important aspects of the patch testing. The potential benefits of patch testing, including the identification of possible contributing factors to the your dermatologic complaints. This may help us to provide you with information about how to avoid certain causes of your skin condition and recommend safe products for you. The potential moderate, but rare, risks of testing, which include: severe inflammation at the patch test sites pigmentary changes at the patch test sites (most often temporary) the possibility that a strong test reaction could flare your underlying skin condition a very rare, strong reaction will make it difficult or impossible to accurately interpret your response (occasionally, further testing may be required in these situations at a later date) the extremely rare possibility (estimated at 1 in 5,000) that testing may actually sensitize you (induce an allergy) to a substance to which you are tested. the extremely rare risk of anaphylaxis (a severe immediate allergic reaction -- we minimize your risk of this complication by limiting the patch testing only to certain types of rashes and by a careful history prior to testing) We spoke about the possibility that testing may be negative (no positive reactions) or non-relevant (the reactions that occur are not related to your underlying skin problem). We discussed that this may still be very valuable information to the provider who referred you to us for testing. You should avoid oral (by mouth) or injectable steroids and other immune suppressants until the final reading is completed, unless previously discussed with the patch test team. Topical steroids can continue to be used on other parts of the body, but the back or other areas discussed at the time of the visit should be avoided. Antihistamines by mouth may be continued, as they are acceptable for use during patch testing. You must avoid all sources of ultraviolet exposure to the back (or other test sites) starting today and lasting until at least 14 days after the patch testing is complete. (Shirt/blouse must cover the back when outdoors and testing must be scheduled to avoid conflicts with any vacations where sun exposure is expected.) Additionally, it is our belief that long-term ultraviolet exposure that causes a deep/persistent jimenez, whether artificial or natural, significantly increases the risks of falsely negative results. Depending upon your insurance, [facility] may submit a prior authorization request on your behalf to your insurance company. You may also choose to contact your insurance company to understand any deductibles or cdu-rb-bhswik expenses that may apply to your particular situation. In general, once the patch testing process is complete, you will follow-up with your referring provider for ongoing care. Information about your patch testing results will be forwarded to the individual who referred you to us. As a teaching hospital, you will be cared for by a team which includes nurses, dermatology residents, other umcahjhknk-zi-aqjugcps, and other healthcare trainees. Please refer to the separate handout provided by our patch testing staff for additional information about the process. For questions or concerns regarding your patch testing, call [phone] (the direct line to our patch testing office) OR You may also send a Stretch message (please type ATTN: Patch testing team near the top of the message). Follow-up as noted below or as needed. Chief Complaint: Consultation for patch testing Subjective and Objective HPI: Description / symptoms: extreme itchy, painful, red, raised Duration: 6 Months Derm Patch Test 08/13/2024 12:48 PM EST - Filed by Patient What areas of the body are involved? Previously patch tested: No Better with : Phototherapy Worse with: none Topical allergies: Fragrance/ cosmetics: No Dyes: No Rubber/plastic: No Glues/adhesives: No Topical Medications: No Metals: Yes Past or upcoming surgery: No H/o atopy: Asthma: No Seasonal allergies: No Childhood eczema: No H/o latex allergy: No Pertinent Social History: Job: retired, previously worked as [employer] Hobbies: exercise everyday Improvement on weekends/vacations: No Sunburn or ultraviolet exposure to the back in the last 30 days: Yes No past medical history on file. Current Outpatient Medications on File Prior to Visit Medication Sig predniSONE (DELTASONE) 10 mg tablet Take 2 tablets by mouth once daily. (Patient not taking: Reported on 07/28/2024) hydrOXYzine HCl (ATARAX) 25 mg tablet Hydroxyzine Hcl Active 25 MG PO Q6H April 08, 2024 12:00am white petrolatum (AQUAPHOR) 41 % topical ointment Apply to affected area as needed. pantoprazole DR (PROTONIX) 40 mg tablet Take 1 tablet by mouth daily at 6 am. Patient should start on May 11, 2024. fexofenadine (HODA) 60 mg tablet Take 60 mg by mouth once daily. Lactobacillus acidophilus (PROBIOTIC ORAL) Take 1 capsule by mouth once daily. Cholecalciferol, Vitamin D3, 25 mcg (1,000 unit) cap Take 1,000 Units by mouth once daily. No current facility-administered medications on file prior to visit. Physical exam: - faint pink plaque over the chest Resident: Marilu Harris MD Attending attestation: Jes Latham MD This note is completed at 9:51 PM on 08/14/2024 and reflects the services provided at the time of the appointment. I agree with the Chief Complaint, ROS, and Past Histories that may have been independently gathered by the clinical account support rep and the remaining note (including any AI-generated and/or scribed content) is reviewed and accurately describes my personal service to the patient. I have seen and examined Ms. Corrales. I have discussed the case and the management of this patient's care with the Resident. I also have reviewed and agree with the assessment and plan as stated above and agree with all of its relevant components. There were no procedures performed during this patient's visit. Medical Decision Making: Problems: Moderate: 1+ chronic illnesses with change Risk: Moderate: Moderate risk from testing/treatment Medical Decision Making Level: 4 - Moderate CNOV Observed: 08/14/2024 4:30 PM Status: COMPLETED Source: [facility] Office Visit (DERMMN) MIRIAN CORRALES ([id number]) 1955 F Date Time Provider Department 08/14/24 4:30 PM JES LATHAM DERMMN During your visit today, we recorded the following information about you: Jes Latham MD 08/14/2024 9:52 PM Signed Department of Dermatology Contact Dermatitis and Patch Testing 08/14/2024 Referred by Yeison Pérez, M* Office Use: Plan: Patch testing with SST (Standard Series Tray) Was this appointment a shared medical appointment? 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 Has started on phototherapy as of 06/2024 with improvement in symptoms. Off of prednisone for 2 weeks. Discussed patch testing is reasonable for this patient. Discussed the purpose and process of patch testing. Counseled on the benefits and risks of patch testing, including negative or non-relevant patch test findings, an inflammatory response to the patches (erythema, pruritus), pigmentary changes, a robust reaction to an allergen that obscures neighboring allergens, and sensitization (09/4999). Discussed importance of keeping area dry during the 5-day period of patch testing, sponge bath as necessary. Advised patient that back should be shielded from phototherapy (using dark towels or 2 white towels) for 21-30 days prior and during patch testing process. Patient Instructions Patient Instructions We are looking forward to assisting you with patch testing. During your visit, we discussed many important aspects of the patch testing. The potential benefits of patch testing, including the identification of possible contributing factors to the your dermatologic complaints. This may help us to provide you with information about how to avoid certain causes of your skin condition and recommend safe products for you. The potential moderate, but rare, risks of testing, which include: severe inflammation at the patch test sites pigmentary changes at the patch test sites (most often temporary) the possibility that a strong test reaction could flare your underlying skin condition a very rare, strong reaction will make it difficult or impossible to accurately interpret your response (occasionally, further testing may be required in these situations at a later date) the extremely rare possibility (estimated at 1 in 5,000) that testing may actually sensitize you (induce an allergy) to a substance to which you are tested. the extremely rare risk of anaphylaxis (a severe immediate allergic reaction -- we minimize your risk of this complication by limiting the patch testing only to certain types of rashes and by a careful history prior to testing) We spoke about the possibility that testing may be negative (no positive reactions) or non-relevant (the reactions that occur are not related to your underlying skin problem). We discussed that this may still be very valuable information to the provider who referred you to us for testing. You should avoid oral (by mouth) or injectable steroids and other immune suppressants until the final reading is completed, unless previously discussed with the patch test team. Topical steroids can continue to be used on other parts of the body, but the back or other areas discussed at the time of the visit should be avoided. Antihistamines by mouth may be continued, as they are acceptable for use during patch testing. You must avoid all sources of ultraviolet exposure to the back (or other test sites) starting today and lasting until at least 14 days after the patch testing is complete. (Shirt/blouse must cover the back when outdoors and testing must be scheduled to avoid conflicts with any vacations where sun exposure is expected.) Additionally, it is our belief that long-term ultraviolet exposure that causes a deep/persistent jimenez, whether artificial or natural, significantly increases the risks of falsely negative results. Depending upon your insurance, [facility] may submit a prior authorization request on your behalf to your insurance company. You may also choose to contact your insurance company to understand any deductibles or mmg-dx-xrhvyj expenses that may apply to your particular situation. In general, once the patch testing process is complete, you will follow-up with your referring provider for ongoing care. Information about your patch testing results will be forwarded to the individual who referred you to us. As a teaching hospital, you will be cared for by a team which includes nurses, dermatology residents, other imevhiklej-wl-xydeegir, and other healthcare trainees. Please refer to the separate handout provided by our patch testing staff for additional information about the process. For questions or concerns regarding your patch testing, call [phone] (the direct line to our patch testing office) OR You may also send a Stretch message (please type ATTN: Patch testing team near the top of the message). Follow-up as noted below or as needed. Chief Complaint: Consultation for patch testing Subjective and Objective HPI: Description / symptoms: extreme itchy, painful, red, raised Duration: 6 Months Derm Patch Test 08/13/2024 12:48 PM EST - Filed by Patient What areas of the body are involved? Previously patch tested: No Better with : Phototherapy Worse with: none Topical allergies: Fragrance/ cosmetics: No Dyes: No Rubber/plastic: No Glues/adhesives: No Topical Medications: No Metals: Yes Past or upcoming surgery: No H/o atopy: Asthma: No Seasonal allergies: No Childhood eczema: No H/o latex allergy: No Pertinent Social History: Job: retired, previously worked as [employer] Hobbies: exercise everyday Improvement on weekends/vacations: No Sunburn or ultraviolet exposure to the back in the last 30 days: Yes No past medical history on file. Current Outpatient Medications on File Prior to Visit Medication Sig predniSONE (DELTASONE) 10 mg tablet Take 2 tablets by mouth once daily. (Patient not taking: Reported on 07/28/2024) hydrOXYzine HCl (ATARAX) 25 mg tablet Hydroxyzine Hcl Active 25 MG PO Q6H April 08, 2024 12:00am white petrolatum (AQUAPHOR) 41 % topical ointment Apply to affected area as needed. pantoprazole DR (PROTONIX) 40 mg tablet Take 1 tablet by mouth daily at 6 am. Patient should start on May 11, 2024. fexofenadine (HODA) 60 mg tablet Take 60 mg by mouth once daily. Lactobacillus acidophilus (PROBIOTIC ORAL) Take 1 capsule by mouth once daily. Cholecalciferol, Vitamin D3, 25 mcg (1,000 unit) cap Take 1,000 Units by mouth once daily. No current facility-administered medications on file prior to visit. Physical exam: - faint pink plaque over the chest Resident: Marilu Harris MD Attending attestation: Jes Latham MD This note is completed at 9:51 PM on 08/14/2024 and reflects the services provided at the time of the appointment. I agree with the Chief Complaint, ROS, and Past Histories that may have been independently gathered by the clinical account support rep and the remaining note (including any AI-generated and/or scribed content) is reviewed and accurately describes my personal service to the patient. I have seen and examined Ms. Corrales. I have discussed the case and the management of this patient's care with the Resident. I also have reviewed and agree with the assessment and plan as stated above and agree with all of its relevant components. There were no procedures performed during this patient's visit. Medical Decision Making: Problems: Moderate: 1+ chronic illnesses with change Risk: Moderate: Moderate risk from testing/treatment Medical Decision Making Level: 4 - Moderate Marilu Harris MD 08/14/2024 4:45 PM Signed We are looking forward to assisting you with patch testing. During your visit, we discussed many important aspects of the patch testing. The potential benefits of patch testing, including the identification of possible contributing factors to the your dermatologic complaints. This may help us to provide you with information about how to avoid certain causes of your skin condition and recommend safe products for you. The potential moderate, but rare, risks of testing, which include: severe inflammation at the patch test sites pigmentary changes at the patch test sites (most often temporary) the possibility that a strong test reaction could flare your underlying skin condition a very rare, strong reaction will make it difficult or impossible to accurately interpret your response (occasionally, further testing may be required in these situations at a later date) the extremely rare possibility (estimated at 1 in 5,000) that testing may actually sensitize you (induce an allergy) to a substance to which you are tested. the extremely rare risk of anaphylaxis (a severe immediate allergic reaction -- we minimize your risk of this complication by limiting the patch testing only to certain types of rashes and by a careful history prior to testing) We spoke about the possibility that testing may be negative (no positive reactions) or non-relevant (the reactions that occur are not related to your underlying skin problem). We discussed that this may still be very valuable information to the provider who referred you to us for testing. You should avoid oral (by mouth) or injectable steroids and other immune suppressants until the final reading is completed, unless previously discussed with the patch test team. Topical steroids can continue to be used on other parts of the body, but the back or other areas discussed at the time of the visit should be avoided. Antihistamines by mouth may be continued, as they are acceptable for use during patch testing. You must avoid all sources of ultraviolet exposure to the back (or other test sites) starting today and lasting until at least 14 days after the patch testing is complete. (Shirt/blouse must cover the back when outdoors and testing must be scheduled to avoid conflicts with any vacations where sun exposure is expected.) Additionally, it is our belief that long-term ultraviolet exposure that causes a deep/persistent jimenez, whether artificial or natural, significantly increases the risks of falsely negative results. Depending upon your insurance, [facility] may submit a prior authorization request on your behalf to your insurance company. You may also choose to contact your insurance company to understand any deductibles or rzz-ow-mpapbv expenses that may apply to your particular situation. In general, once the patch testing process is complete, you will follow-up with your referring provider for ongoing care. Information about your patch testing results will be forwarded to the individual who referred you to us. As a teaching hospital, you will be cared for by a team which includes nurses, dermatology residents, other tpvnblxaez-on-gbazgpjx, and other healthcare trainees. Please refer to the separate handout provided by our patch testing staff for additional information about the process. For questions or concerns regarding your patch testing, call [phone] (the direct line to our patch testing office) OR You may also send a Stretch message (please type ATTN: Patch testing team near the top of the message). Referring Provider: YEISON URENA [[id number]] Allergies As of Date: 08/14/2024 Noted Allergy Reaction WHEAT 08/24/2019 7 - Swelling DAIRY AID (LACTASE) 08/24/2019 7 - Swelling Comments: Bloating Date Reviewed: 08/14/2024 Reviewed by: Patricia Aranda RN - Fully Assessed Reason for Visit: Patch Testing (allergy) [1102] Primary Visit Diagnosis:Contact dermatitis, unspecified contact dermatitis type, unspecified trigger [L25.9] Order(s):DERMATOLOGY PATCH TEST CLINIC [[id number]] Order #: [id number]: 1 Prescriptions as of 08/14/2024 - white petrolatum (AQUAPHOR) 41 % topical ointment Apply to affected area as needed. - pantoprazole DR (PROTONIX) 40 mg tablet Take 1 tablet by mouth daily at 6 am. Patient should start on May 11, 2024. - Lactobacillus acidophilus (PROBIOTIC ORAL) Take 1 capsule by mouth once daily. - Cholecalciferol, Vitamin D3, 25 mcg (1,000 unit) cap Take 1,000 Units by mouth once daily. 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 During your visit, we discussed many important aspects of the patch testing. The potential benefits of patch testing, including the identification of possible contributing factors to the your dermatologic complaints. This may help us to provide you with information about how to avoid certain causes of your skin condition and recommend safe products for you. The potential moderate, but rare, risks of testing, which include: severe inflammation at the patch test sites pigmentary changes at the patch test sites (most often temporary) the possibility that a strong test reaction could flare your underlying skin condition a very rare, strong reaction will make it difficult or impossible to accurately interpret your response (occasionally, further testing may be required in these situations at a later date) the extremely rare possibility (estimated at 1 in 5,000) that testing may actually sensitize you (induce an allergy) to a substance to which you are tested. the extremely rare risk of anaphylaxis (a severe immediate allergic reaction -- we minimize your risk of this complication by limiting the patch testing only to certain types of rashes and by a careful history prior to testing) We spoke about the possibility that testing may be negative (no positive reactions) or non-relevant (the reactions that occur are not related to your underlying skin problem). We discussed that this may still be very valuable information to the provider who referred you to us for testing. You should avoid oral (by mouth) or injectable steroids and other immune suppressants until the final reading is completed, unless previously discussed with the patch test team. Topical steroids can continue to be used on other parts of the body, but the back or other areas discussed at the time of the visit should be avoided. Antihistamines by mouth may be continued, as they are acceptable for use during patch testing. You must avoid all sources of ultraviolet exposure to the back (or other test sites) starting today and lasting until at least 14 days after the patch testing is complete. (Shirt/blouse must cover the back when outdoors and testing must be scheduled to avoid conflicts with any vacations where sun exposure is expected.) Additionally, it is our belief that long-term ultraviolet exposure that causes a deep/persistent jimenez, whether artificial or natural, significantly increases the risks of falsely negative results. Depending upon your insurance, [facility] may submit a prior authorization request on your behalf to your insurance company. You may also choose to contact your insurance company to understand any deductibles or kpu-ii-itippj expenses that may apply to your particular situation. In general, once the patch testing process is complete, you will follow-up with your referring provider for ongoing care. Information about your patch testing results will be forwarded to the individual who referred you to us. As a teaching hospital, you will be cared for by a team which includes nurses, dermatology residents, other ykxpapgmbb-jf-filiqcud, and other healthcare trainees. Please refer to the separate handout provided by our patch testing staff for additional information about the process. For questions or concerns regarding your patch testing, call [phone] (the direct line to our patch testing office) OR You may also send a Stretch message (please type ATTN: Patch testing team near the top of the message). Medications Discontinued During This Encounter Prescriptions - fexofenadine (HODA) 60 mg tablet (Discontinued) Take 60 mg by mouth once daily. - hydrOXYzine HCl (ATARAX) 25 mg tablet (Discontinued) Hydroxyzine Hcl Active 25 MG PO Q6H April 08, 2024 12:00am - predniSONE (DELTASONE) 10 mg tablet (Discontinued) Reported on 07/28/2024 Annotated image of last updated by User, [employer] on 08/13/2024 12:48 PM Encounter Status:Closed by JES LATHAM on 08/14/24 PROGRESS Observed: 08/11/2024 3:24 PM Status: COMPLETED Source: [facility] HNO ID: [id number] Author: EVANGELINA JIANG RN Service: ? Author Type: Registered Nurse Type: Progress Notes Filed: 08/11/2024 15:30 Note Text: Pt is identified by name and birthdate: Yes Allergies reviewed: Yes Medication - prescribed and OTC reviewed and updated: Yes Latex allergy: no. Is the patient having any pain? No 0 on a scale of 0 to 10 See flow sheet for treatment record. Protective eyewear given and worn. Evangelina Jiang RN August 11, 2024 3:24 PM CNNURSE Observed: 08/11/2024 3:20 PM Status: COMPLETED Source: [facility] Nurse Visit (DERMAV) MIRIAN CORRALES ([id number]) 1955 F Date Time Provider Department 08/11/24 3:20 PM NURSE DERM [facility]J DERMAV During your visit today, we recorded the following information about you: Evangelina Jiang RN 08/11/2024 3:30 PM Signed Pt is identified by name and birthdate: Yes Allergies reviewed: Yes Medication - prescribed and OTC reviewed and updated: Yes Latex allergy: no. Is the patient having any pain? No 0 on a scale of 0 to 10 See flow sheet for treatment record. Protective eyewear given and worn. 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 - hydrOXYzine HCl (ATARAX) 25 mg tablet Hydroxyzine Hcl Active 25 MG PO Q6H April 08, 2024 12:00am - white petrolatum (AQUAPHOR) 41 % topical ointment Apply to affected area as needed. - pantoprazole DR (PROTONIX) 40 mg tablet Take 1 tablet by mouth daily at 6 am. Patient should start on May 11, 2024. - fexofenadine (HODA) 60 mg tablet Take 60 mg by mouth once daily. - Lactobacillus acidophilus (PROBIOTIC ORAL) Take 1 capsule by mouth once daily. - Cholecalciferol, Vitamin D3, 25 mcg (1,000 unit) cap Take 1,000 Units by mouth once daily. 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 James [place] TYPE -> NARROW BAND UVB (MJ/CM2) TX FREQ -> 3X/WK INITIAL DOSE -> 300mj/cm2 MAX DOSE -> 3000mj/cm2 INCREASE BY -> 25mj/cm2 TX# -> 12 DOSE -> 295mj/cm2 DOSE ADJ -> increased 25mj/cm2 COMMENTS: -> pt tolerating well. Denies erythema Encounter Status:Closed by EVANGELINA JIANG on 08/11/24 MAKAYLA Observed: 08/10/2024 12:00 AM Status: COMPLETED Source: [facility] Telephone (DERMAV) MIRIAN CORRALES ([id number]) 1955 F Date Time Provider Department 08/10/24 NURSE DERM [facility] REJ DERMAV During your visit today, we recorded the following information about you: Brandi Morales 08/10/2024 9:07 AM Gume Vela is calling Nurse today to request sooner appt time for 08/14 UVB Please call patient Patient has been identified by name and birthdate. Duration of symptoms: N/A Person calling: self Call patient at: on cell [phone] (home) [phone] (cell) Was an appointment scheduled: No Closing statement: Results or non-symptom based questions: Thank you for calling [facility], your call will be returned within the next business day. Brandi Morales Allergies As of Date: 08/10/2024 Noted Allergy Reaction WHEAT 08/24/2019 7 - Swelling DAIRY AID (LACTASE) 08/24/2019 7 - Swelling Comments: Bloating Date Reviewed: 08/09/2024 Reviewed by: Kierra Harris RN - Fully Assessed Reason for Visit: Appointment [186] Prescriptions as of 10/23/2024 - white petrolatum (AQUAPHOR) 41 % topical ointment Apply to affected area as needed. - pantoprazole DR (PROTONIX) 40 mg tablet Take 1 tablet by mouth daily at 6 am. Patient should start on May 11, 2024. - Lactobacillus acidophilus (PROBIOTIC ORAL) Take 1 capsule by mouth once daily. - Cholecalciferol, Vitamin D3, 25 mcg (1,000 unit) cap Take 1,000 Units by mouth once daily. 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 Author Type: Registered Nurse Type: Progress Notes Filed: 08/09/2024 15:36 Note Text: Pt is identified by name and birthdate: Yes Allergies reviewed: Yes Medication - prescribed and OTC reviewed and updated: Yes Latex allergy: no. Is the patient having any pain? No 0 on a scale of 0 to 10 See flow sheet for treatment record. Protective eyewear given and worn. Kierra Harris RN August 09, 2024 3:26 PM CNNURSE Observed: 08/09/2024 3:20 PM Status: COMPLETED Source: [facility] Nurse Visit (DERMAV) MIRIAN CORRALES ([id number]) 1955 F Date Time Provider Department 08/09/24 3:20 PM NURSE DERM [facility] M[place]ENO CORTES During your visit today, we recorded the following information about you: Kierra Harris RN 08/09/2024 3:36 PM Signed Pt is identified by name and birthdate: Yes Allergies reviewed: Yes Medication - prescribed and OTC reviewed and updated: Yes Latex allergy: no. Is the patient having any pain? No 0 on a scale of 0 to 10 See flow sheet for treatment record. Protective eyewear given and worn. 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 - hydrOXYzine HCl (ATARAX) 25 mg tablet Hydroxyzine Hcl Active 25 MG PO Q6H April 08, 2024 12:00am - white petrolatum (AQUAPHOR) 41 % topical ointment Apply to affected area as needed. - pantoprazole DR (PROTONIX) 40 mg tablet Take 1 tablet by mouth daily at 6 am. Patient should start on May 11, 2024. - fexofenadine (HODA) 60 mg tablet Take 60 mg by mouth once daily. - Lactobacillus acidophilus (PROBIOTIC ORAL) Take 1 capsule by mouth once daily. - Cholecalciferol, Vitamin D3, 25 mcg (1,000 unit) cap Take 1,000 Units by mouth once daily. 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] 05/06/2024 Age-related osteoporosis without current pathol*05/06/2024 Lymphadenopathy [R59.1] 05/06/2024 Eosinophilia [D72.10] 05/08/2024 Eczema [L30.9] 05/08/2024 Peripheral eosinophilia [D72.19] 05/09/2024 Questionnaire: DERMATOLOGY PHOTOTHERAPY TX DX -> Spongiotic dermatitis ORDERING PHYSICIAN -> Cmt: Jacob TX TYPE -> NARROW BAND UVB (MJ/CM2) TX FREQ -> 3X/WK INITIAL DOSE -> 300 MAX DOSE -> 3000 INCREASE BY -> 25 TX# -> 11 DOSE -> 270 DOSE ADJ -> No increase COMMENTS: -> Patient tolerated well Encounter Status:Closed by KIERRA HARRIS on 08/09/24 CNNURSE Observed: 08/07/2024 3:20 PM Status: COMPLETED Source: [facility] Nurse Visit (DERMAV) MIRIAN CORRALES ([id number]) 1955 F Date Time Provider Department 08/07/24 3:20 PM NURSE DERM [facility] REJ DERMAV During your visit today, we recorded the following information about you: Sonam Freitas RN 08/07/2024 3:17 PM Signed Pt is identified by name and birthdate: Yes Allergies reviewed: Yes Medication - prescribed and OTC reviewed and updated: Yes Latex allergy: no. Is the patient having any pain? No 0 on a scale of 0 to 10 See flow sheet for treatment record. Protective eyewear given and worn. 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 - fexofenadine (HODA) 60 mg tablet Take 60 mg by mouth once daily. - Lactobacillus acidophilus (PROBIOTIC ORAL) Take 1 capsule by mouth once daily. - Cholecalciferol, Vitamin D3, 25 mcg (1,000 unit) cap Take 1,000 Units by mouth once daily. 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] 05/06/2024 Age-related osteoporosis without current pathol*05/06/2024 Lymphadenopathy [R59.1] 05/06/2024 Eosinophilia [D72.10] 05/08/2024 Eczema [L30.9] 05/08/2024 Peripheral eosinophilia [D72.19] 05/09/2024 Questionnaire: DERMATOLOGY PHOTOTHERAPY TX DX -> spongiotic dermatitis ORDERING PHYSICIAN -> Cmt: Jacob TX TYPE -> NARROW BAND UVB (MJ/CM2) TX FREQ -> 3X/WK INITIAL DOSE -> 300 MAX DOSE -> 3000 INCREASE BY -> 25-50 TX# -> 10 DOSE -> 270 DOSE ADJ -> increased 25 COMMENTS: -> pt tolerated without issue Encounter Status:Closed by SONAM FREITAS on 08/07/24 PROGRESS Observed: 08/07/2024 3:20 PM Status: COMPLETED Source: [facility] HNO ID: [id number] Author: SONAM FREITAS RN Service: ? Author Type: Registered Nurse Type: Progress Notes Filed: 08/07/2024 15:17 Note Text: Pt is identified by name and birthdate: Yes Allergies reviewed: Yes Medication - prescribed and OTC reviewed and updated: Yes Latex allergy: no. Is the patient having any pain? No 0 on a scale of 0 to 10 See flow sheet for treatment record. Protective eyewear given and worn. Sonam Freitas RN August 07, 2024 3:17 PM PROGRESS Observed: 08/04/2024 2:49 PM Status: COMPLETED Source: [facility] HNO ID: [id number] Author: SONAM FREITAS RN Service: ? Author [...] Freitas RN August 04, 2024 2:49 PM CNNURSE Observed: 08/04/2024 2:40 PM Status: COMPLETED Source: [facility] Nurse Visit (DERMAV) MIRIAN CORRALES ([id number]) 1955 F Date Time Provider Department 08/04/24 2:40 PM NURSE DERM [facility] M[place] CORTES During your visit [...] start on May 11, 2024. - fexofenadine (HODA) 60 mg tablet Take 60 mg by [...] Encounter Status:Closed by SONAM FREITAS on 08/04/24 PROGRESS Observed: 08/02/2024 1:35 PM Status: COMPLETED Source: [facility] HNO ID: [id number] Author: KIERRA WILLIS RN Service: ? Author [...] Willis RN August 02, 2024 1:39 PM CNNURSE Observed: 08/02/2024 1:20 PM Status: COMPLETED Source: [facility] Nurse Visit (DERMAV) MIRIAN CORRALES ([id number]) 1955 F Date Time Provider Department 08/02/24 1:20 PM NURSE DERM [facility] M[place] CORTES During your visit [...] start on May 11, 2024. - fexofenadine (HODA) 60 mg tablet Take 60 mg by [...] Encounter Status:Closed by KIERRA WILLIS on 08/02/24 CNNURSE Observed: 07/31/2024 3:20 PM Status: COMPLETED Source: [facility] Nurse Visit (DERMAV) MIRIAN CORRALES ([id number]) 1955 F Date Time Provider Department 07/31/24 3:20 PM NURSE DERM [facility] REJ DERMAV During your visit [...] start on May 11, 2024. - fexofenadine (HODA) 60 mg tablet Take 60 mg by [...] Encounter Status:Closed by EVANGELINA JIANG on 07/31/24 PROGRESS Observed: 07/31/2024 3:08 PM Status: COMPLETED Source: [facility] HNO ID: [id number] Author: EVANGELINA JIANG RN Service: ? Author [...] Jiang RN July 31, 2024 3:14 PM CNNURSE Observed: 07/28/2024 3:20 PM Status: COMPLETED Source: [facility] Nurse Visit (DERMAV) MIRIAN CORRALES ([id number]) 1955 F Date Time Provider Department 07/28/24 3:20 PM NURSE DERM [facility] REJ DERMJUSTYNA During your visit [...] start on May 11, 2024. - fexofenadine (HODA) 60 mg tablet Take 60 mg by [...] Encounter Status:Closed by EVANGELINA JIANG on 07/28/24 PROGRESS Observed: 07/28/2024 2:41 PM Status: COMPLETED Source: [facility] HNO ID: [id number] Author: EVANGELINA JIANG RN Service: ? Author [...] Jiang RN July 28, 2024 2:47 PM PROGRESS Observed: 07/28/2024 9:30 AM Status: COMPLETED Source: [facility] HNO ID: [id number] Author: EBONIE JAMES MD Service: ? Author [...] should start on May 11, 2024. fexofenadine (HODA) 60 mg tablet Take 60 mg by [...] Past Histories independently gathered by the clinical account support rep and the remaining scribed note accurately describes my personal service to the patient. Ebonie James MD CNOV Observed: 07/28/2024 9:30 AM Status: COMPLETED Source: [facility] Office Visit (DERMWH) MIRIAN CORRALES ([id number]) 1955 F Date Time Provider Department 07/28/24 9:30 AM EBONIE JAMES During your visit today, we [...] PO Q6H 30 April 08, 2024 12:00am triamcinolone acetonide (KENALOG) 0.1 % ointment Apply to affected area two times a day. white petrolatum (AQUAPHOR) 41 % topical ointment Apply to affected area as needed. pantoprazole DR (PROTONIX) 40 mg tablet Take 1 tablet by mouth daily at 6 am. Patient should start on May 11, 2024. fexofenadine (HODA) 60 mg tablet Take 60 mg by [...] Past Histories independently gathered by the clinical account support rep and the remaining scribed note accurately describes my personal service to the patient. Ebonie James MD Referring Provider: SELF [200] Allergies As of Date: 07/28/2024 Noted Allergy Reaction WHEAT 08/24/2019 7 - Swelling DAIRY AID (LACTASE) 08/24/2019 7 - Swelling Comments: Bloating Date Reviewed: 07/28/2024 Reviewed by: Dl Matthews LPN - Fully Assessed Reason for Visit: Rash [1087] Primary Visit Diagnosis:Rash and nonspecific skin eruption [R21] Prescriptions as of 07/28/2024 - predniSONE (DELTASONE) [...] start on May 11, 2024. - fexofenadine (HODA) 60 mg tablet Take 60 mg by [...] Eczema [L30.9] 05/08/2024 Peripheral eosinophilia [D72.19] 05/09/2024 Other instructions from your clinician: Continue Narrowband UVB therapy, Prednisone in reserve if patient flares Methotrexate in reserve Disposition: Return if symptoms worsen or fail to improve. Follow-up and Disposition History for Encounter Date Provider Department Center 07/28/2024 [id number] JAMESDERMWH [facility] Will Encounter Status:Closed by EBONIE JAMES on 07/28/24 PROGRESS Observed: 07/26/2024 3:34 PM Status: COMPLETED Source: [facility] ID: [id number] Author: AUSTIN BOSS RN Service: ? Author [...] Boss RN July 26, 2024 3:34 PM CNNURSE Observed: 07/26/2024 3:20 PM Status: COMPLETED Source: [facility] Nurse Visit (DERMAV) MIRIAN CORRALES ([id number]) 1955 F Date Time Provider Department 07/26/24 3:20 PM NURSE DERM [facility] REJ DERMAV During your visit [...] start on May 11, 2024. - fexofenadine (HODA) 60 mg tablet Take 60 mg by [...] Encounter Status:Closed by AUSTIN BOSS on 07/26/24 CNNURSE Observed: 07/24/2024 8:20 AM Status: COMPLETED Source: [facility] Nurse Visit (DERMAV) MIRIAN CORRALES ([id number]) 1955 F Date Time Provider Department 07/24/24 8:20 AM NURSE DERM [facility] M[place] CORTES During your visit [...] start on May 11, 2024. - fexofenadine (HODA) 60 mg tablet Take 60 mg by [...] Encounter Status:Closed by SONAM FREITAS on 07/24/24 PROGRESS Observed: 07/24/2024 8:10 AM Status: COMPLETED Source: [facility] HNO ID: [id number] Author: SONAM FREITAS RN Service: ? Author [...] Freitas RN July 24, 2024 8:11 AM CNNURSE Observed: 07/21/2024 3:00 PM Status: COMPLETED Source: [facility] Nurse Visit (DERMAV) MIRIAN CORRALES ([id number]) 1955 F Date Time Provider Department 07/21/24 3:00 PM NURSE DERM [facility] M[place] CORTES During your visit [...] start on May 11, 2024. - fexofenadine (HODA) 60 mg tablet Take 60 mg by [...] Encounter Status:Closed by KIERRA WILLIS on 07/21/24 PROGRESS Observed: 07/21/2024 2:55 PM Status: COMPLETED Source: [facility] HNO ID: [id number] Author: KIERRA WILLIS RN Service: ? Author [...] Willis RN July 21, 2024 3:02 PM CNNURSE Observed: 07/19/2024 3:20 PM Status: COMPLETED Source: [facility] Nurse Visit (DERMAV) MIRIAN CORRALES ([id number]) 1955 F Date Time Provider Department 07/19/24 3:20 PM NURSE DERM [facility] [place] CORTES During your visit [...] start on May 11, 2024. - fexofenadine (HODA) 60 mg tablet Take 60 mg by [...] Encounter Status:Closed by AUSTIN BOSS on 07/19/24 PROGRESS Observed: 07/19/2024 3:20 PM Status: COMPLETED Source: [facility] HNO ID: [id number] Author: AUSTIN BOSS RN Service: ? Author Type: Registered Nurse Type: Progress Notes Filed: 07/19/2024 15:40 Note Text: no show PROGRESS Observed: 07/17/2024 2:41 PM Status: COMPLETED Source: [facility] HNO ID: [id number] Author: KIERRA WILLIS RN Service: ? Author Type: Registered Nurse Type: Progress Notes Filed: 07/17/2024 14:59 Note Text: Patient treatment cancelled for today as she has moderate to severe erythema to torso front and back. Will skip Wednesdays appointment and re-evaluate on Wednesday. Dr. Jacob villa. Kierra Willis RN July 17, 2024 2:58 PM CNNURSE Observed: 07/17/2024 2:40 PM Status: COMPLETED Source: [facility] Nurse Visit (DERMAV) MIRIAN CORRALES ([id number]) 1955 F Date Time Provider Department 07/17/24 2:40 PM NURSE DERM [facility] REJ DERMAV During your visit today, we recorded the following information about you: Kierra Willis RN 07/17/2024 2:59 PM Signed Patient treatment cancelled for today as she has moderate to severe erythema to torso front and back. Will skip Wednesdays appointment and re-evaluate on Wednesday. Dr. Jacob villa. Kierra Willis RN July 17, 2024 2:58 PM Referring Provider: SELF [200] Allergies As of Date: 07/17/2024 Noted Allergy Reaction WHEAT 08/24/2019 7 - Swelling DAIRY AID (LACTASE) 08/24/2019 7 - Swelling Comments: Bloating Date Reviewed: 07/17/2024 Reviewed by: Kierra Willis, RN - Fully Assessed Reason for Visit: [...] start on May 11, 2024. - fexofenadine (HODA) 60 mg tablet Take 60 mg by [...] Encounter Status:Closed by KIERRA WILLIS on 07/17/24 CNNURSE Observed: 07/14/2024 3:20 PM Status: COMPLETED Source: [facility] Nurse Visit (DERMAV) MIRIAN CORRALES ([id number]) 1955 F Date Time Provider Department 07/14/24 3:20 PM NURSE DERM [facility] [place] CORTES During your visit [...] start on May 11, 2024. - fexofenadine (HODA) 60 mg tablet Take 60 mg by [...] Encounter Status:Closed by SONAM FREITAS on 07/14/24 PROGRESS Observed: 07/14/2024 3:18 PM Status: COMPLETED Source: [facility] HNO ID: [id number] Author: SONAM FREITAS RN Service: ? Author [...] Freitas RN July 14, 2024 3:20 PM PROGRESS Observed: 07/12/2024 3:40 PM Status: COMPLETED Source: [facility] HNO ID: [id number] Author: AUSTIN BOSS RN Service: ? Author [...] Boss RN July 12, 2024 3:42 PM CNNURSE Observed: 07/12/2024 3:20 PM Status: COMPLETED Source: [facility] Nurse Visit (DERMAV) MIRIAN CORRALES ([id number]) 1955 F Date Time Provider Department 07/12/24 3:20 PM NURSE DERM [facility] REJ DERMAV During your visit [...] start on May 11, 2024. - fexofenadine (HODA) 60 mg tablet Take 60 mg by [...] spongiotis dermatitis ORDERING PHYSICIAN -> Cmt: Jacob ASHU TYPE -> NARROW BAND UVB (MJ/CM2) TX FREQ -> 3X/WK INITIAL DOSE -> 300 MAX DOSE -> 3000 INCREASE BY -> 50 TX# -> 1 DOSE -> 300 DOSE ADJ -> 0 COMMENTS: -> oriented to uvb Encounter Status:Closed by AUSTIN BOSS on 07/12/24 PROGRESS Observed: 06/20/2024 1:15 PM Status: COMPLETED Source: [facility] ID: [id number] Author: EBONIE JAMES MD Service: ? Author [...] PO Q6H 30 April 08, 2024 12:00am triamcinolone acetonide (KENALOG) 0.1 % ointment Apply to affected area two times a day. white petrolatum (AQUAPHOR) 41 % topical ointment Apply to affected area as needed. pantoprazole DR (PROTONIX) 40 mg tablet Take 1 tablet by mouth daily at 6 am. Patient should start on May 11, 2024. fexofenadine (HODA) 60 mg tablet Take 60 mg by [...] Past Histories independently gathered by the clinical account support rep and the remaining scribed note accurately describes my personal service to the patient. Attending Note I agree with the ROS, and Past Histories independently gathered by the clinical account support rep and the remaining scribed note accurately describes my personal service to the patient. I evaluated the patient and personally participated in the gaming components. I agree with the resident/fellow's findings and plan as documented and have discussed the case and management of the patient's care with the resident/fellow. I agree with the resident's findings and plan. Ebonie James MD CNOV Observed: 06/20/2024 1:15 PM Status: COMPLETED Source: [facility] Office Visit (DERMMN) MIRIAN CORRALES ([id number]) 1955 F Date Time Provider Department 06/20/24 [...] should start on May 11, 2024. fexofenadine (HODA) 60 mg tablet Take 60 mg by [...] Past Histories independently gathered by the clinical account support rep and the remaining scribed note accurately describes my personal service to the patient. Attending Note I agree with the ROS, and Past Histories independently gathered by the clinical account support rep and the remaining scribed note accurately describes my personal service to the patient. I evaluated the patient and personally participated in the gaming components. I agree with the resident/fellow's findings and plan as documented and have discussed the case and management of the patient's care with the resident/fellow. I agree with the resident's findings and plan. MD Steven De Los Santos Tiffany, MD 06/20/2024 1:42 PM Signed APPOINTMENT NUMBERS FOR PHOTOTHERAPY UNITS For narrow band UVB there are multiple facilities that have full body booths including: - [facility] ([phone]) - [facility] ([phone]) - [facility] ([phone]) - [facility] ([phone]) - [facility] ([phone]) - [facility] (regular appt number [phone]) - [place] ([phone]) - [place] ([phone]) - [facility] ([phone]) Allergies As of Date: 06/20/2024 Noted Allergy Reaction WHEAT 08/24/2019 7 - Swelling DAIRY AID (LACTASE) 08/24/2019 7 - Swelling Comments: Bloating Date Reviewed: 06/20/2024 Reviewed by: Mary Corral MA - Fully Assessed Reason for Visit: Follow Up [171] Primary Visit Diagnosis:Rash and nonspecific skin eruption [R21] Other Visit Diagnosis:Spongiotic dermatitis [L30.8] Order(s):PHOTOTHERAPY [4993028] Order #: [id number] Prescriptions as of 06/20/2024 - predniSONE (DELTASONE) 10 mg tablet Take 6 tablets by mouth once daily for 5 days, THEN 4 tablets once daily for 5 days, THEN 2 tablets once daily for 5 days, THEN 1 tablet once daily for 5 days. - hydrOXYzine HCl (ATARAX) 25 mg [...] start on May 11, 2024. - fexofenadine (HODA) 60 mg tablet Take 60 mg by mouth once daily. - Lactobacillus acidophilus (PROBIOTIC ORAL) Take 1 capsule by mouth once daily. - Cholecalciferol, Vitamin D3, 25 mcg (1,000 unit) cap Take 1,000 Units by mouth once daily. 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 Age-related osteoporosis without current pathol*05/06/2024 Lymphadenopathy [R59.1] 05/06/2024 Eosinophilia [D72.10] 05/08/2024 Eczema [L30.9] 05/08/2024 Peripheral eosinophilia [D72.19] 05/09/2024 Other instructions from your clinician: APPOINTMENT NUMBERS FOR PHOTOTHERAPY UNITS For narrow band UVB there are multiple facilities that have full body booths including: - [employer] ([phone]) - [facility] ([phone]) - [facility] ([phone]) - [facility] ([phone]) - [facility] ([phone]) - [facility] (regular appt number [phone]) - [place] ([phone]) - [place] ([phone]) - [facility] ([phone]) Encounter Status:Closed by EBONIE JAMES on 06/20/24 ALLERGIES DATE TYPE / CODE NAME / CODE REACTION SEVERITY SOURCE 06/18/2025 Drug Allergy/83869 8002(SNOMED CT) No Known Allergies/[id number](RXNOR M) Unknown [facility] 11/17/2024 DRUG INGREDI/07131 1003(SNOMED CT) DIPHENYLGUANIDINE RASH [facility] 11/17/2024 DRUG INGREDI/65515 1003(SNOMED CT) IODOPROPYNYL BUTYLCARBAMATE RASH [facility] 08/24/2019 DRUG INGREDI/30672 1003(SNOMED CT) WHEAT SWELLING [facility] 08/24/2019 DRUG INGREDI/38895 1003(SNOMED CT) LACTASE SWELLING Low [facility] ENCOUNTERS ADMIT/DISCHARGE ACCOUNT NUMBER ADMITTING ENCOUNTER CLASS LOCATION SOURCE 06/18/2025 [id number] [facility] Vines [facility] 06/04/2025/06/04/20 25 [id number] [place] [place] Exam [address] [facility] 05/29/2025/05/30/20 25 [id number] Ambulatory [facility]EMPERATRIZCA [facility] 05/14/2025/05/14/20 25 [id number] Ambulatory [facility]:GOCA [facility] 05/09/2025/05/09/20 25 [id number] JUAN WHALEN Ambulatory [facility]:[place] m: [id number]: MAIN-[address] [facility] 05/07/2025/05/07/20 25 [id number] [facility] [id number] [place]riella [facility] 05/01/2025/05/01/20 25 [id number] Ambulatory [facility] Hospital[facility]:HPRE [facility] 04/27/2025/04/27/20 25 [id number] Ambulatory [facility] Hospital[facility]:LB15 [facility] 04/27/2025 [id number] Ambulatory [facility] [facility] HospitalBu[facility]:XR21 [facility] 04/27/2025/04/28/20 [id number] [facility] [place] [facility]/04/17/20 25 [id number] [facility] HospitalBu[facility]:PRINCESS [facility] 04/06/2025/04/06/20 25 [id number] [facility]Bu[facility]:PRINCESS [facility] 03/27/2025/03/27/20 25 [id number] [facility]:PRINC[facility] 03/20/2025/03/20/20 25 [id number] [facility]:PRINC[facility] 03/16/2025/03/16/20 25 [id number] [facility]:PRINC[facility] 03/13/2025/03/13/20 [id number] [facility]:PRINCESS [facility] 02/17/2025/02/18/20 [id number] [facility] 02/09/2025/02/10/20 [id number] [facility]Bu[facility]:PRINCESS [facility] 02/06/2025/02/07/20 25 [id number] [facility]PRINCESS [facility] 02/06/2025/02/07/20 25 [id number] [facility] HospitalBu[facility]:PARKER [facility] 02/01/2025/02/02/20 [id number] [facility]:HALLE [facility] 01/30/2025/01/31/20 [id number] [facility] HospitalBu[facility]:PRINCESS [facility] 01/26/2025/01/27/20 [id number] [facility]Bu[facility]:PRINCESS [facility] 01/24/2025/01/25/20 [id number] Ambulatory Building:NOM S BCP OB [facility] 01/23/2025/01/24/20 [id number] [facility]Bu[facility]:PRINCESS [facility] 01/19/2025/01/23/20 [id number] [facility] HospitalBu[facility] ding:[facility]INCESS [facility] 01/18/2025/01/19/20 [id number] Benedicto Lan [facility] 01/17/2025/01/18/20 25 [id number] Benedicto Lan [facility] 01/16/2025/01/17/20 [id number] [facility] HospitalBu[facility]:PRINCESS [facility] 01/15/2025/01/16/20 25 [id number] Asaad, Imad [facility] 01/12/2025/01/13/20 25 [id number] [facility]Bu[facility]:PRINCESS [facility] 01/10/2025/01/11/20 25 [id number] Asaad, Imad [facility] 01/09/2025/01/10/20 25 [id number] [facility] HospitalBu[facility]:JUSTYNAIZAIAH [facility] 01/09/2025/01/10/20 25 [id number] Ambulatory Building:NOM S BCP OB [facility] 01/05/2025/01/06/20 25 [id number] [facility] HospitalBu[facility]INCESS [facility] 01/02/2025/01/03/20 25 [id number] [facility]INC[facility] 12/29/2024/12/30/19 25 [id number] [facility]Bu[facility]:JUSTYNAIZAIAH [facility] 12/26/2024/12/27/19 25 [id number] [facility]:JUSTYNAIZAIAH [facility] 12/20/2024/12/21/19 25 [id number] [facility]Bu[facility] ding:JUSTYNAIZAIAH [facility] 12/18/2024/12/19/19 25 [id number] [facility]Bu[facility]:JUSTYNAIZAIAH [facility] 12/15/2024/12/16/19 25 [id number] [facility]Bu[facility]:JUSTYNAIZAIAH [facility] 12/13/2024/12/14/19 25 [id number] [facility]Bu[facility]:JUSTYNAIZAIAH [facility] 12/13/2024/12/14/19 25 [id number] Ambulatory Building:NOM SSWSIM [facility] 12/11/2024/12/12/19 25 [id number] [facility]Bu[facility]INC[facility] 12/08/2024/12/09/19 25 [id number] [facility] HospitalBuil ding:PRINCESS [facility] 12/06/2024/12/07/19 25 [id number] [facility]Bu[facility]:PRINCESS [facility] 12/04/2024/12/05/19 25 [id number] [facility] HospitalBuil ding:PRINCESS [facility] 12/01/2024/12/02/19 25 [id number] [facility] HospitalBuil ding:PRINCESS [facility] 11/29/2024/11/30/19 25 [id number] [facility]Bu[facility] ding:PRINCESS [facility] 11/27/2024/11/28/19 25 [id number] [facility]Bu[facility] ding:PRINCESS [facility] 11/24/2024/11/25/19 25 [id number] [facility]Bu[facility] ding:PRINCESS [facility] 11/23/2024/11/24/19 25 [id number] Asaad, Imad [facility] 11/22/2024/11/23/19 25 [id number] [facility] HospitalBuil ding:PRINCESS [facility] 11/20/2024/11/21/19 25 [id number] [facility] HospitalBuil ding:PRINCESS [facility] 11/20/2024/11/21/19 25 [id number] [facility] HospitalBuil ding:SHIRLEY [facility] 11/20/2024/11/21/19 25 [id number] [facility] HospitalBu[facility]:LORENA [facility] 11/17/2024/11/17/19 25 [id number] [facility] HospitalBu[facility]:PRINCESS [facility] 11/17/2024/11/17/19 25 [id number] [facility] HospitalBu[facility]:KAYODE [facility] 11/15/2024/11/15/19 25 [id number] [facility] HospitalBuil ding:PRINCESS [facility] 11/13/2024/11/13/19 25 [id number] [facility] HospitalBuil ding:KAYODE [facility] 11/09/2024/11/09/19 25 [id number] [facility] HospitalBuil ding:PRINCESS [facility] 11/07/2024/11/07/19 25 [id number] [facility] HospitalBuil ding:PRINCESS [facility] 10/27/2024/10/27/19 25 [id number] [facility] HospitalBuil ding:PRINCESS [facility] 10/25/2024/10/25/19 25 [id number] [facility]Bu[facility] ding:PRINCESS [facility] 10/23/2024/10/23/19 25 [id number] [facility]Bu[facility] ding:PRINCESS [facility] 10/20/2024/10/20/19 25 [id number] [facility]Bu[facility]PRINCESS [facility] 10/18/2024/10/19/19 25 [id number] [facility]Bu[facility]:PRINCESS [facility] 10/16/2024/10/16/19 25 [id number] [facility] HospitalBuil ding:PRINCESS [facility] 10/13/2024/10/13/19 25 [id number] [facility] HospitalBu[facility] ding:PRINCESS [facility] 10/12/2024/10/12/19 25 [id number] [facility] HospitalBu[facility]:BAILEY [facility] 10/12/2024/10/12/19 25 [id number] [facility] HospitalBu[facility]:UMM [facility] 10/11/2024/10/11/19 25 [id number] [facility]Bu[facility] ding:PRINCESS [facility] 10/09/2024/10/09/19 25 [id number] [facility]Bu[facility] ding:PRINCESS [facility] 10/06/2024/10/06/19 25 [id number] [facility]Bu[facility] ding:PRINCESS [facility] 10/04/2024/10/04/19 25 [id number] [facility]Bu[facility]:PRINCESS [facility] 10/02/2024/10/02/19 25 [id number] [facility]Bu[facility]:JUSTYNAIZAIAH [facility] 09/29/2024/09/29/19 25 [id number] Ambulatory Building:NOM [facility] 09/27/2024/09/27/19 25 [id number] [facility] HospitalBu[facility]:JUSTYNAIZAIAH [facility] 09/26/2024/09/26/19 25 [id number] Pili Evans [facility]EM[facility] 09/25/2024/09/25/19 25 [id number] [facility]Bu[facility]:PRINCESS [facility] 09/19/2024/09/19/20 24 [id number] Ambulatory Building:NOM [facility] 09/18/2024/09/18/20 24 [id number] [facility]Buil ding:PRINCESS [facility] 09/11/2024/09/11/20 24 [id number] [facility] HospitalBuil ding:PRINCESS [facility] 09/08/2024/09/08/20 24 [id number] [facility]Bu[facility]:JUSTYNAIZAIAH [facility] 09/06/2024/09/06/20 24 [id number] [facility]Bu[facility]:PRINCESS [facility] 09/01/2024/09/01/20 24 [id number] [facility]:JUSTYNAIZAIAH [facility] 08/30/2024/08/30/20 24 [id number] [facility]Bu[facility]:JUSTYNAIZAIAH [facility] 08/16/2024/08/16/20 24 [id number] [facility]Bu[facility]:JUSTYNAIZAIAH [facility] 08/16/2024/08/16/20 24 [id number] Vonnie Ponce [facility] 08/14/2024/08/14/20 24 [id number] [facility] HospitalBu[facility]:KAYODE [facility] 08/11/2024/08/11/20 24 [id number] [facility]Bu[facility]:PRINCESS [facility] 08/09/2024/08/09/20 24 [id number] [facility]Bu[facility]:PRINCESS [facility] 08/07/2024/08/07/20 24 [id number] [facility]:PRINCESS [facility] 08/04/2024/08/04/20 24 [id number] [facility]:PRINCESS [facility] 08/02/2024/08/02/20 24 [id number] [facility]:PRINCESS [facility] 07/31/2024/07/31/20 24 [id number] [facility]Bu[facility]:PRINCESS [facility] 07/28/2024/07/28/20 24 [id number] [facility]:PRINCESS [facility] 07/28/2024/07/28/20 24 [id number] [facility]Bu[facility]:AMERICA [facility] 07/26/2024/07/26/20 24 [id number] [facility]Bu[facility]:PRINCESS [facility] 07/24/2024/07/24/20 24 [id number] Ambulatory Building:NOM S BCP OB [facility] 07/24/2024/07/24/20 24 [id number] [facility]:PRINC[facility] 07/21/2024/07/21/20 24 [id number] [facility]PRINCESS [facility] 07/17/2024/07/17/20 24 [id number] [facility]Bu[facility]:PRINCESS [facility] 07/14/2024/07/14/20 24 [id number] [facility]Bu[facility]:PRINC[facility] 07/12/2024/07/12/20 24 [id number] [facility] 06/20/2024/06/20/20 24 [id number] [facility] Center[facility]:KAYODE [facility] PAYERS ENCOUNTER GUARANTOR PAYER SUBSCRIBER SOURCE 06/18/[address] [address]Rfw: (HP) Primary Insurance:MedicarePolic y Number: [id number] Date:2025-01-22 Mirian NovakB: [id number] [address] [address]Puh: (HP) [facility] 06/18/2025 Secondary Insurance:[employer]et[employer] SSIPolicy Number: [id number] Date:8613-31-97VM [address] [place] [address]XS: Mirian NovakB: [id number] [place], [place] [address]Tel: (HP) [facility] 06/18/2025 Tertiary Insuran ce:Self PayPolicy Number: Effective Date:2025-01-29 [facility] 06/04/2025 MIRIAN FIELDS: [facility] 185Tel: ~~( 41 (HP) Primary Insurance:MEDICAREPolic y Number: [id number] Date:6093-14-22[address], [place] [address]RL: MIRIAN DUNHAM [facility] 06/04/2025 Secondary Insurance:AETNAPolicy Number: [id number] Date:2024-09-[address] [facility] 05/29/2025 Primary Insurance:MEDICARE A AND BPolicy Number: [id number] Date:1956-31-96Uvkg Name:Lemuel NOVAKB: [id number] [facility] [address], [place] [address] [facility] 05/29/2025 Secondary Insurance:AETNA MEDICARE SUPPLEMENTPolicy Number: [id number] Date:8077-52-27Jcwx Name:Pema CORRALESB: [id number] [facility] [address], [place] [address] [facility] 05/14/2025 Primary Insurance:MEDICARE A AND BPolicy Number: [id number] Date:7942-26-61Bhbs Name:Lemuel CORRALESB: [id number] [address] [facility] 05/14/2025 Secondary Insurance:AETNA MEDICARE SUPPLEMENTPolicy Number: [id number] Date:1075-06-70Xkvz Name:Pema Barker SCARLETB: [id number] [address] [place] [address] [facility] 05/09/2025 Primary Insurance:MEDICARE A AND BPolicy Number: [id number] Date:3171-62-92Gvna Name:Lemuel CORRALESB: [id number] [address] [place] [address] [facility] 05/09/2025 Secondary Insurance:AETNA MEDICARE SUPPLEMENTPolicy Number: [id number] Date:0017-65-16Juyg Name:Pema Barker SCARLETB: [id number] [facility] [address], [place] [address] [facility] 05/07/2025 Primary Insurance:MEDICARE A AND BPolicy Number: [id number] Date:7401-26-89Dlmp Name:Lemuel Barker SCARLETB: [id number] [facility] [address], [place] [address] [facility] 05/07/2025 Secondary Insurance:AETNA MEDICARE SUPPLEMENTPolicy Number: [id number] Date:9391-00-85Bska Name:Pema CORRALESB: [id number] [facility] [address], [place] [address] [facility] 05/01/2025 Primary Insurance:MEDICARE A AND BPolicy Number: [id number] Date:9424-06-21Fafk Name:Lemuel CORRALESDOB: [id number] [facility] [address], [place] [address] [facility] 05/01/2025 Secondary Insurance:AETNA MEDICARE SUPPLEMENTPolicy Number: [id number] Date:4055-93-66Jxsz Name:Pema CORRALESB: [id number] [address] [place] [address] [facility] 04/27/2025 Primary Insurance:MEDICARE A AND BPolicy Number: [id number] Date:4171-83-62Xfwb Name:Lemuel CORRALESB: [id number] [address] [place] [address] [facility] 04/27/2025 Secondary Insurance:AETNA MEDICARE SUPPLEMENTPolicy Number: [id number] Date:4879-28-51Ptgx Name:Pema CORRALESB: [id number] [address] [place] [address] [facility] 04/27/2025 Primary Insurance:MEDICARE A AND BPolicy Number: [id number] Date:8299-71-60Bqcs Name:Lemuel CORRALESDOB: [id number] [address] [address] [facility] 04/27/2025 Secondary Insurance:AETNA MEDICARE SUPPLEMENTPolicy Number: [id number] Date:6755-28-37Yfrp Name:Pema Barker ANTONIDOB: [id number] [address] [address] [facility] 04/27/2025 Primary Insurance:MEDICARE A AND BPolicy Number: [id number] Date:3322-85-60Ckwz Name:Lemuel CORRALESB: [id number] [facility] [address], [place] [address] [facility] 04/27/2025 Secondary Insurance:AETNA MEDICARE SUPPLEMENTPolicy Number: [id number] Date:2488-73-30Pjiu Name:Pema CORRALESB: [id number] [facility] [address], [place] [address] [facility] 04/17/2025 Primary Insurance:MEDICARE A AND BPolicy Number: [id number] Date:0681-32-21Kmxx Name:Lemuel CORRALESB: [id number] [facility] [address], [place] [address] [facility] 04/17/2025 Secondary Insurance:AETNA MEDICARE SUPPLEMENTPolicy Number: [id number] Date:3844-32-04Reca Name:Pema CORRALESB: [id number] [facility] [address], [place] [address] [facility] 04/06/2025 Primary Insurance:MEDICARE A AND BPolicy Number: [id number] Date:3510-73-12Kwnq Name:Lemuel CORRALESB: [id number] [facility] [address], [place] [address] [facility] 04/06/2025 Secondary Insurance:AETNA MEDICARE SUPPLEMENTPolicy Number: [id number] Date:6481-60-56Cjuh Name:Pema CORRALESDOB: [id number] [facility] [address], [place] [address] [facility] 03/27/2025 Primary Insurance:MEDICARE A AND BPolicy Number: [id number] Date:6144-51-02Mlch Name:Lemuel CORRALESDOB: [id number] [facility] [address] [address] [facility] 03/27/2025 Secondary Insurance:AETNA MEDICARE SUPPLEMENTPolicy Number: [id number] Date:9414-29-73Hxgi Name:Pema CORRALESB: [id number] [address] [address] [facility] 03/20/2025 Primary Insurance:MEDICARE A AND BPolicy Number: [id number] Date:1284-52-43Dacc Name:Lemuel CORRALESDOB: [id number] [address] [address] [facility] 03/20/2025 Secondary Insurance:AETNA MEDICARE SUPPLEMENTPolicy Number: [id number] Date:1479-07-04Sqdi Name:Pema CORRALESB: [id number] [address] [address] [facility] 03/16/2025 Primary Insurance:MEDICARE A AND BPolicy Number: [id number] Date:0799-79-52Pjga Name:Lemuel CORRALESB: [id number] [address] [address] [facility] 03/16/2025 Secondary Insurance:AETNA MEDICARE SUPPLEMENTPolicy Number: [id number] Date:2893-62-77Aimv Name:Pema CORRALESB: [id number] [address] [facility] 03/13/2025 Primary Insurance:MEDICARE A AND BPolicy Number: [id number] Date:3580-77-01Gkcr Name:Lemuel Barker ALDRICHDOB: [id number] [address] [address] [facility] 03/13/2025 Secondary Insurance:AETNA MEDICARE SUPPLEMENTPolicy Number: [id number] Date:5033-25-99Wwds Name:Pema CORRALESDOB: [id number] [address] [address] [facility] 02/17/2025 Mirian Corrales[address] [address]Sta: () Primary Insurance:MedicarePolic y Number: [id number] Date:2025-02-17 Mirian NovakB: [id number] [place] [address]Tel: () [facility] 02/17/2025 Secondary Insurance:Aetna SSIPolicy Number: [id number] Date:1688-65-35AR [address] [place] [address]KR: Mirian NovakB: [id number] [place] [address]Tel: () [facility] 02/17/2025 Tertiary Insuran ce:Self PayPolicy Number: Effective Date:2025-02-17 [facility] 02/09/2025 Primary Insurance:MEDICARE A AND BPolicy Number: [id number] Date:1529-49-15Qlne Name:Lemuel NOVAKB: [id number] [address] 02/09/2025 Secondary Insurance:AETNA MEDICARE SUPPLEMENTPolicy Number: [id number] Date:2215-51-24Yirv Name:Pema NOVAKB: [id number] 02/06/2025 Primary Insurance:MEDICARE A AND BPolicy Number: [id number] Date:2787-55-35Ocze Name:Lemuel FIELDS: [id number] [address] 02/06/2025 Secondary Insurance:AETNA MEDICARE SUPPLEMENTPolicy Number: [id number] Date:5319-95-46Qcgi Name:Pema NOVAKB: [id number] [address] [address] [facility] 02/06/2025 Primary Insurance:MEDICARE A AND BPolicy Number: [id number] Date:2778-06-82Yuky Name:Lemuel Barker SCARLETB: [id number] [address] [address] [facility] 02/06/2025 Secondary Insurance:AETNA MEDICARE SUPPLEMENTPolicy Number: [id number] Date:6474-63-01Vnxw Name:Pema MIRIAN Mj NOVAKB: [id number] [address] [place] [address] 02/01/2025 Primary Insurance:MEDICARE A AND BPolicy Number: [id number] Date:3433-43-70Pdrd Name:Lemuel SKAGGSE Mj NOVAKB: [id number] [address] [place] [address] 02/01/2025 Secondary Insurance:AETNA MEDICARE SUPPLEMENTPolicy Number: [id number] Date:4579-64-06Gclv Name:Pema SKAGGSE Mj NOVAKB: [id number] [address] [address] [facility] 01/30/2025 Primary Insurance:MEDICARE A AND BPolicy Number: [id number] Date:3375-29-11Earo Name:Lemuel MIRIAN Mj NOVAKB: [id number] [address] [address] [facility] 01/30/2025 Secondary Insurance:AETNA MEDICARE SUPPLEMENTPolicy Number: [id number] Date:6196-68-03Cphd Name:Pema SKAGGSE Mj NOVAKB: [id number] [address] [address] [facility] 01/26/2025 Primary Insurance:MEDICARE A AND BPolicy Number: [id number] Date:6563-11-79Eiad Name:Lemuel NOVAKB: [id number] [address] [address] [facility] 01/26/2025 Secondary Insurance:AETNA MEDICARE SUPPLEMENTPolicy Number: [id number] Date:6999-76-57Truo Name:Pema MIRIAN Mj NOVAKB: [id number] [address] [address] [facility] 01/24/2025 MIRIAN NOVAKB: [address] [address]Ccz: () Primary Insurance:MEDICAREPolic y Number: [id number] Date:7171-30-87Vrhd Name:Medicare VICKIE Mj NOVAKB: [id number] [address] [address] [facility] 01/24/2025 Secondary Insurance:AETNAPolicy Number: [id number] Date:4203-89-78Pxjb Name:[address] [address]DA: MIRIAN NOVAKB: [id number] [address] [address] [facility] 01/23/2025 Primary Insurance:MEDICARE A AND BPolicy Number: [id number] Date:5283-54-41Yjjx Name:Lemuel NOVAKB: [id number] [address] [address] [facility] 01/23/2025 Secondary Insurance:AETNA MEDICARE SUPPLEMENTPolicy Number: [id number] Date:0543-10-59Pjne Name:Pema NOVAKB: [id number] [address] [facility] 01/19/2025 Primary Insurance:MEDICARE A AND BPolicy Number: [id number] Date:3051-14-36Njuk Name:Lemuel NOVAKB: [id number] [address] [address] [facility] 01/19/2025 Secondary Insurance:AETNA MEDICARE SUPPLEMENTPolicy Number: [id number] Date:1451-25-20Cqqq Name:Pema Barker SCARLETB: [id number] [address] [place] [address] [facility] 01/18/2025 Mirian [address] [place] [address]Gte: (HP) Primary Insurance:MedicarePolic y Number: [id number] Date:2025-01-17 Mirian NovakB: [id number] [place] [address]Ydq: (HP) [facility] 01/18/2025 Secondary Insurance:Aetna SSIPolicy Number: [id number] Date:1839-81-15RH [address] [place], [place] [address]WP: Mirian Mj NovakB: [id number] [place] [address]Nxm: (HP) [facility] 01/18/2025 Tertiary Insuran ce:Self PayPolicy Number: Effective Date:2025-01-17 [facility]25 Mirian Cor[address] [address]Xyz: (HP) Primary Insurance:MedicarePolic y Number: [id number] Date:2025-01-09 Mirian NovakB: 1110-59-21WKY[address] [place] [address]Fsu: (HP) [facility] 01/17/2025 Secondary Insurance:Aetna SSIPolicy Number: [id number] Date:6574-91-19JK [address] [place] [address]ZD: Mirian Barker AldrichDOB: 16[birth year]-99-74NUJ054390 [place] [address]Ybb: (HP) [facility] 01/17/2025 Tertiary Insuran ce:Self PayPolicy Number: Effective Date:2025-01-09 NOT GIVENUNK [facility] 01/16/2025 Primary Insurance:MEDICARE A AND BPolicy Number: [id number] Date:9570-92-24Rybr Name:Lemuel MIRIAN CORRALESB: [id number] [place] [address] 01/16/2025 Secondary Insurance:AETNA MEDICARE SUPPLEMENTPolicy Number: [id number] Date:2845-42-30Wkus Name:Pema MIRIAN Barker SCARLETB: [id number] [place] [address] [place] [address] 01/15/2025 Mirian Mj Omkljoo[address] [place] [address]Syd: () Primary Insurance:MedicarePolic y Number: [id number] Date:2025-01-09 Mirian Barker AldrichDOB: [id number] [place] [address]Wdo: () [facility] 01/15/2025 Secondary Insurance:Aetna SSIPolicy Number: [id number] Date:7755-31-21VZ [id number] [place] [address]JQ: Mirian Barker AldrichDOB: 3634-77-51UGA697[address] [place] [address]Tpm: (HP) [facility] 01/15/2025 Tertiary Insuran ce:Self PayPolicy Number: Effective Date:2025-01-09 [facility]12/[facility]25 Primary Insurance:MEDICARE A AND BPolicy Number: [id number] Date:6420-39-69Quyo Name:Lemuel NOVAKB: [id number] [place] [address] [facility] 01/12/2025 Secondary Insurance:AETNA MEDICARE SUPPLEMENTPolicy Number: [id number] Date:5543-38-65Pswg Name:Pema NOVAKB: [id number] [place] [address] [facility] 01/10/[address] [place] [address]Tys: () Primary Insurance:MedicarePolic y Number: [id number] Date:2024-12-18 Mirian NovakB: [id number] [place] [address]Zhk: () [facility] 01/10/2025 Secondary Insurance:Aetna SSIPolicy Number: [id number] Date:3532-24-69YP [address] [place] [address]IA: Mirian NovakB: [id number] [place] [address]Yll: () [facility] 01/10/2025 Tertiary Insuran ce:Self PayPolicy Number: Effective Date:2024-12-18 [facility] 01/09/2025 Primary Insurance:MEDICARE A AND BPolicy Number: [id number] Date:4215-43-24Rwqc Name:Lemuel NOVAKB: [id number] [place] [address] [facility] 01/09/2025 Secondary Insurance:AETNA MEDICARE SUPPLEMENTPolicy Number: [id number] Date:1809-83-97Qttq Name:Pema NOVAKB: [id number] [address] [address] [facility] 01/09/2025 IMRIAN NOVAKB: [address] [address]Ccc: () Primary Insurance:MEDICAREPolic y Number: [id number] Date:0858-44-73Trea Name:Medicare VICKIE J ALDRICHDOB: [id number] [address] [address] [facility] 01/09/2025 Secondary Insurance:AETNAPolicy Number: [id number] Date:7789-79-82Ipxn Name:Ravi CABRAL [address] [place] [address]XV: MIRIAN NOVAKB: [id number] [address] [address] [facility] 01/05/2025 Primary Insurance:MEDICARE A AND BPolicy Number: [id number] Date:8665-42-21Lqba Name:Lemuel NOVAKB: [id number] [address] [address] [facility] 01/05/2025 Secondary Insurance:AETNA MEDICARE SUPPLEMENTPolicy Number: [id number] Date:6449-03-92Evwi Name:Pema NOVAKB: [id number] [address] [address] [facility] 01/02/2025 Primary Insurance:MEDICARE A AND BPolicy Number: [id number] Date:5551-44-46Vves Name:Lemuel NOVAKB: [id number] [address] [address] [facility] 01/02/2025 Secondary Insurance:AETNA MEDICARE SUPPLEMENTPolicy Number: [id number] Date:0666-58-33Faga Name:Pema NOVAKB: [id number] [address] [address] [facility] 12/29/2024 Primary Insurance:MEDICARE A AND BPolicy Number: [id number] Date:1172-02-27Yhxn Name:Lemuel MIRIAN Mj NOVAKB: [id number] [address] [address] [facility] 12/29/2024 Secondary Insurance:AETNA MEDICARE SUPPLEMENTPolicy Number: [id number] Date:6052-24-15Amck Name:Pema NOVAKB: 8674-28-06UAW4099 [address] [place] [address] 12/26/2024 Primary Insurance:MEDICARE A AND BPolicy Number: [id number] Date:7750-69-56Vnzw Name:Lemuel NOVAKB: [id number] [address] [place] [address] 12/26/2024 Secondary Insurance:AETNA MEDICARE SUPPLEMENTPolicy Number: [id number] Date:5476-47-82Bthu Name:Pema FIELDS: [id number] [address] [address] [facility] 12/20/2024 Primary Insurance:MEDICARE A AND BPolicy Number: [id number] Date:6265-86-83Rkiq Name:Lemuel NOVAKB: [id number] [address] [address] [facility] 12/20/2024 Secondary Insurance:AETNA MEDICARE SUPPLEMENTPolicy Number: [id number] Date:5728-87-63Ntru Name:Pema NOVAKB: [id number] [address] [address] [facility] 12/18/2024 Primary Insurance:MEDICARE A AND BPolicy Number: [id number] Date:8456-24-90Nwmj Name:Lemuel FIELDS: [id number] [facility] [address] [address] [facility] 12/18/2024 Secondary Insurance:AETNA MEDICARE SUPPLEMENTPolicy Number: [id number] Date:1781-96-43Vizs Name:Pema CORRALESB: [id number] [facility] [address], [place] [address] [facility] 12/15/2024 Primary Insurance:MEDICARE A AND BPolicy Number: [id number] Date:7241-43-82Rjla Name:Lemuel CORRALESB: [id number] [place] [address] [facility] 12/15/2024 Secondary Insurance:AETNA MEDICARE SUPPLEMENTPolicy Number: [id number] Date:7549-89-76Ljjp Name:Pema CORRALESB: [id number] [address] [place] [address] [facility] 12/13/2024 Primary Insurance:MEDICARE A AND BPolicy Number: [id number] Date:5868-70-83Tijk Name:Lemuel CORRALESB: [id number] [place] [address] [facility] 12/13/2024 Secondary Insurance:AETNA MEDICARE SUPPLEMENTPolicy Number: [id number] Date:1390-20-41Ubic Name:Pema Barker SCARLETB: [id number] [facility] [address], [place] [address] [facility] 12/13/2024 MIRIAN J ALDRICHDOB: [address], [place] [address]Ark: () Primary Insurance:MEDICAREPolic y Number: [id number] Date:9449-30-83Help Name:Medicare VICKIDebra Barker SCARLETB: [id number] [address] [address] [facility] 12/13/2024 Secondary Insurance:AETNAPolicy Number: [id number] Date:5897-12-36Cvce Name:Ravi CABRAL [place] [address]TJ: MIRIAN NOVAKB: [id number] [address] [address] [facility] 12/11/2024 Primary Insurance:MEDICARE A AND BPolicy Number: [id number] Date:6893-10-28Ztff Name:Lemuel NOVAKB: [id number] [place] [address] 12/11/2024 Secondary Insurance:AETNA MEDICARE SUPPLEMENTPolicy Number: [id number] Date:2276-33-92Donq Name:Pema NOVAKB: 8490-30-04SEZ6936 [address] [place] [address] 12/08/2024 Primary Insurance:MEDICARE A AND BPolicy Number: [id number] Date:1018-38-44Kstk Name:Lemuel NOVAKB: [id number] [address] [facility] 12/08/2024 Secondary Insurance:AETNA MEDICARE SUPPLEMENTPolicy Number: [id number] Date:7979-51-75Taol Name:Pema NOVAKB: [id number] [address] [address] [facility] 12/06/2024 Primary Insurance:MEDICARE A AND BPolicy Number: [id number] Date:7970-71-55Bsju Name:Lemuel FIELDS: [id number] [address] [address] [facility] 12/06/2024 Secondary Insurance:AETNA MEDICARE SUPPLEMENTPolicy Number: [id number] Date:3379-86-01Uwvo Name:Pema FIELDS: [id number] [address] [address] [facility] 12/04/2024 Primary Insurance:MEDICARE A AND BPolicy Number: [id number] Date:9637-84-18Ushd Name:Lemuel SKAGGSE Mj NOVAKB: [id number] [address] [address] [facility] 12/04/2024 Secondary Insurance:AETNA MEDICARE SUPPLEMENTPolicy Number: [id number] Date:5369-76-38Csfg Name:Pema NOVAKB: 7150-90-17NPQ0105 [address] [place] [address] 12/01/2024 Primary Insurance:MEDICARE A AND BPolicy Number: [id number] Date:9191-77-98Skyy Name:Lemuel NOVAKB: [id number] [address] [place] [address] 12/01/2024 Secondary Insurance:AETNA MEDICARE SUPPLEMENTPolicy Number: [id number] Date:1471-50-69Uxum Name:Pema NOVAKB: [id number] [address] [address] [facility] 11/29/2024 Primary Insurance:MEDICARE A AND BPolicy Number: [id number] Date:0086-51-58Nqyx Name:Lemuel NOVAKB: 1879-04-06DUN4094 [address] [address] [facility] 11/29/2024 Secondary Insurance:AETNA MEDICARE SUPPLEMENTPolicy Number: [id number] Date:7528-71-64Qrnf Name:Pema NOVAKB: [id number] [address] [facility] 11/27/2024 Primary Insurance:MEDICARE A AND BPolicy Number: [id number] Date:7756-13-34Gkdo Name:Lemuel FIELDS: [id number] [address] [address] [facility] 11/27/2024 Secondary Insurance:AETNA MEDICARE SUPPLEMENTPolicy Number: [id number] Date:7445-85-54Thec Name:Pema CORRALESDOB: [id number] [address] [address] [facility] 11/24/2024 Primary Insurance:MEDICARE A AND BPolicy Number: [id number] Date:8355-31-64Rhfa Name:Lemuel CORRALESDOB: 0683-56-04CKP3576 [address] [address] [facility] 11/24/2024 Secondary Insurance:AETNA MEDICARE SUPPLEMENTPolicy Number: [id number] Date:9690-23-74Arfz Name:Pema CORRALESB: [id number] [address] [address] [facility] 11/23/2024 Mirian [address]es[address] [address]Ohb: () Primary Insurance:MedicarePolic y Number: [id number] Date:2024-11-06 Mirian CorralesDOB: 8918-33-41SXB[address] [address]Bsh: (HP) [facility] 11/23/2024 Secondary Insurance:Aetna SSIPolicy Number: [id number] Date:9964-63-68HY [address] [place] [address]QZ: Mirian Barker AldrichDOB: 8700-07-87KLV5223 [address] [address]Lbf: (HP) [facility] 11/23/2024 Tertiary Insuran ce:Self PayPolicy Number: Effective Date:2024-11-06 [facility] 11/22/2024 Primary Insurance:MEDICARE A AND BPolicy Number: [id number] Date:1506-81-83Muxp Name:Lemuel Barekr SCARLETB: [id number] [facility] [address], [place] [address] [facility] 11/22/2024 Secondary Insurance:AETNA MEDICARE SUPPLEMENTPolicy Number: [id number] Date:8723-31-33Lljq Name:Pema WORTHYMIRIAN Mj NOVAKB: [id number] [facility] [address], [place] [address] [facility] 11/20/2024 Primary Insurance:MEDICARE A AND BPolicy Number: [id number] Date:5469-37-54Wjdx Name:Lemuel WORTHYMIRIAN Mj NOVAKB: [id number] [address] [address] [facility] 11/20/2024 Secondary Insurance:AETNA MEDICARE SUPPLEMENTPolicy Number: [id number] Date:8773-98-06Thkz Name:Pema MIRIAN J SCARLETB: [id number] [address] [address] [facility] 11/20/2024 Primary Insurance:MEDICARE A AND BPolicy Number: [id number] Date:3112-80-43Euta Name:Lemuel WORTHYMIRIAN J SCARLETB: [id number] [address] [address] [facility] 11/20/2024 Secondary Insurance:AETNA MEDICARE SUPPLEMENTPolicy Number: [id number] Date:7963-26-27Qdxe Name:Pema SKAGGSE Mj NOVAKB: [id number] [address] [address] [facility] 11/20/2024 Primary Insurance:MEDICARE A AND BPolicy Number: [id number] Date:8732-31-03Vino Name:Lemuel NOVAKB: [id number] [address] [address] [facility] 11/20/2024 Secondary Insurance:AETNA MEDICARE SUPPLEMENTPolicy Number: [id number] Date:2458-44-29Uydv Name:Pema CORRALESB: [id number] [facility] [address], [place] [address] [facility] 11/17/2024 Primary Insurance:MEDICARE A AND BPolicy Number: [id number] Date:8880-76-06Qhho Name:Lemuel Barker SCARLETB: [id number] [facility] [address], [place] [address] [facility] 11/17/2024 Secondary Insurance:AETNA MEDICARE SUPPLEMENTPolicy Number: [id number] Date:9468-52-97Wtgf Name:Pema MIRIAN J SCARLETB: [id number] [address] [address] [facility] 11/17/2024 Primary Insurance:MEDICARE A AND BPolicy Number: [id number] Date:6318-16-86Unht Name:Lemuel WORTHYMIRIAN J SCARLETB: [id number] [address] [address] [facility] 11/17/2024 Secondary Insurance:AETNA MEDICARE SUPPLEMENTPolicy Number: [id number] Date:7355-72-17Fxqo Name:Pema WORTHYMIRIAN J SCARLETB: 7976-17-37CQC4079 [address] [address] [facility] 11/15/2024 Primary Insurance:MEDICARE A AND BPolicy Number: [id number] Date:7623-75-84Mblm Name:Lemuel WORTHYMIRIAN J SCARLETB: [id number] [address] [address] [facility] 11/15/2024 Secondary Insurance:AETNA MEDICARE SUPPLEMENTPolicy Number: [id number] Date:0360-67-05Gtvn Name:Pema SKAGGSE Mj NOVAKB: [id number] [address] [address] [facility] 11/13/2024 Primary Insurance:MEDICARE A AND BPolicy Number: [id number] Date:8843-31-31Fysv Name:Lemuel Barker SCARLETB: [id number] [facility] [address], [place] [address] [facility] 11/13/2024 Secondary Insurance:AETNA MEDICARE SUPPLEMENTPolicy Number: [id number] Date:6431-12-40Ldoy Name:Pema WORTHYMIRIAN Mj NOVAKB: [id number] [address] [address] [facility] 11/09/2024 Primary Insurance:MEDICARE A AND BPolicy Number: [id number] Date:8909-43-29Luhn Name:Lemuel MIRIAN Mj NOVAKB: [id number] [address] [address] [facility] 11/09/2024 Secondary Insurance:AETNA MEDICARE SUPPLEMENTPolicy Number: [id number] Date:7499-40-08Yrfx Name:Pema MIRIAN J SCARLETB: [id number] [address] [address] [facility] 11/07/2024 Primary Insurance:MEDICARE A AND BPolicy Number: [id number] Date:6708-62-62Vxku Name:Lemuel WORTHYMIRIAN Mj NOVAKB: 8218-38-83GSK1015 [address] [address] [facility] 11/07/2024 Secondary Insurance:AETNA MEDICARE SUPPLEMENTPolicy Number: [id number] Date:3652-86-68Idur Name:Pema SKAGGSE Mj NOVAKB: [id number] [address] [address] [facility] 10/27/2024 Primary Insurance:MEDICARE A AND BPolicy Number: [id number] Date:5466-81-06Hxxa Name:Lemuel NOVAKB: [id number] [address] [address] [facility] 10/27/2024 Secondary Insurance:AETNA MEDICARE SUPPLEMENTPolicy Number: [id number] Date:4102-20-51Vdin Name:Pema CORRALESB: [id number] [address] [address] [facility] 10/25/2024 Primary Insurance:MEDICARE A AND BPolicy Number: [id number] Date:8060-61-02Uwll Name:Lemuel Barker SCARLETB: [id number] [address] [facility] 10/25/2024 Secondary Insurance:AETNA MEDICARE SUPPLEMENTPolicy Number: [id number] Date:7260-45-62Yigo Name:Pema MIRIAN Mj NOVAKB: [id number] [address] [place] [address] 10/23/2024 Primary Insurance:MEDICARE A AND BPolicy Number: [id number] Date:5736-31-51Daro Name:Lemuel WORTHYMIRIAN J SCARLETB: [id number] [address] [facility] 10/23/2024 Secondary Insurance:AETNA MEDICARE SUPPLEMENTPolicy Number: [id number] Date:1806-18-63Rmag Name:Pema MIIRAN J SCARLETB: [id number] [address] [address] [facility] 10/20/2024 Primary Insurance:MEDICARE A AND BPolicy Number: [id number] Date:4539-91-92Ussf Name:Lemuel WORTHYMIRIAN J SCARLETB: [id number] [address] [address] [facility] 10/20/2024 Secondary Insurance:AETNA MEDICARE SUPPLEMENTPolicy Number: [id number] Date:1108-10-18Mfwn Name:Pema SKAGGSE Mj NOVAKB: 3838-33-55ZCQ2725 [address] [address] [facility] 10/18/2024 Primary Insurance:MEDICARE A AND BPolicy Number: [id number] Date:0665-15-11Gdlt Name:Lemuel WORTHYMIRIAN J SCARLETB: [id number] [address] [address] [facility] 10/18/2024 Secondary Insurance:AETNA MEDICARE SUPPLEMENTPolicy Number: [id number] Date:6333-67-90Whkq Name:Pema SKAGGSE Mj NOVAKB: [id number] [address] [place] [address] 10/16/2024 Primary Insurance:MEDICARE A AND BPolicy Number: [id number] Date:8462-01-75Xyll Name:Lemuel NOVAKB: [id number] [address] [place] [address] 10/16/2024 Secondary Insurance:AETNA MEDICARE SUPPLEMENTPolicy Number: [id number] Date:1655-18-51Nwvi Name:Pema NOVAKB: [id number] [address] [place] [address] 10/13/2024 Primary Insurance:MEDICARE A AND BPolicy Number: [id number] Date:1338-35-88Txls Name:Lemuel NOVAKB: [id number] [address] [place] [address] 10/13/2024 Secondary Insurance:AETNA MEDICARE SUPPLEMENTPolicy Number: [id number] Date:2857-63-87Ztou Name:Pema NOVAKB: 5372-53-15EJL2310 [address] [address] [facility] 10/12/2024 Primary Insurance:MEDICARE A AND BPolicy Number: [id number] Date:2849-00-12Duxf Name:Lemuel NOVAKB: [id number] [address] [place] [address] [facility] 10/12/2024 Secondary Insurance:AETNA MEDICARE SUPPLEMENTPolicy Number: [id number] Date:5420-62-09Ejmb Name:Pema MIRIAN J SCARLETB: [id number] [address] [place] [address] [facility] 10/12/2024 Primary Insurance:MEDICARE A AND BPolicy Number: [id number] Date:4251-26-64Jovx Name:Lemuel SKAGGSE Mj NOVAKB: [id number] [address] [address] [facility] 10/12/2024 Secondary Insurance:AETNA MEDICARE SUPPLEMENTPolicy Number: [id number] Date:6894-52-67Fycz Name:Pema NOVAKB: 4037-97-53RSZ9954 [address] [address] [facility] 10/11/2024 Primary Insurance:MEDICARE A AND BPolicy Number: [id number] Date:0198-93-78Ivai Name:Lemuel NOVAKB: [id number] [address] [address] [facility] 10/11/2024 Secondary Insurance:AETNA MEDICARE SUPPLEMENTPolicy Number: [id number] Date:3276-28-01Wcrb Name:Pema NOVAKB: [id number] [address] [address] [facility] 10/09/2024 Primary Insurance:MEDICARE A AND BPolicy Number: [id number] Date:1928-50-05Yweb Name:Lemuel NOVAKB: [id number] [address] [address] [facility] 10/09/2024 Secondary Insurance:AETNA MEDICARE SUPPLEMENTPolicy Number: [id number] Date:4448-26-30Bjbb Name:Pema NOVAKB: [id number] [facility] [address], [place] [address] [facility] 10/06/2024 Primary Insurance:MEDICARE A AND BPolicy Number: [id number] Date:9283-57-26Hjjb Name:Lemuel WORTHYMIRIAN J ANTONIDOB: [id number] [facility] [address], [place] [address] [facility] 10/06/2024 Secondary Insurance:AETNA MEDICARE SUPPLEMENTPolicy Number: [id number] Date:0520-98-10Dpdz Name:Pema SKAGGSE Mj CORRALESDOB: [id number] [address] [address] [facility] 10/04/2024 Primary Insurance:MEDICARE A AND BPolicy Number: [id number] Date:3162-91-00Dkfh Name:Lemuel NOVAKB: [id number] [address] [address] [facility] 10/04/2024 Secondary Insurance:AETNA MEDICARE SUPPLEMENTPolicy Number: [id number] Date:8225-34-44Ptbc Name:Pema NOVAKB: [id number] [address] [address] [facility] 10/02/2024 Primary Insurance:MEDICARE A AND BPolicy Number: [id number] Date:6986-92-41Amml Name:Lemuel NOVAKB: [id number] [address] [address] [facility] 10/02/2024 Secondary Insurance:AETNA MEDICARE SUPPLEMENTPolicy Number: [id number] Date:8282-23-53Rymx Name:Pema NOVAKB: [id number] [address] [address] [facility] 09/29/2024 MIRIAN NOVAKB: [address] [address]Fgw: (HP) Primary Insurance:MEDICAREPolic y Number: [id number] Date:2213-48-67Ubhl Name:Medicare MIRIAN Barker ALDRICHDOB: [id number] [address] [facility] 09/29/2024 Secondary Insurance:AETNAPolicy Number: [id number] Date:9695-12-88Imll [facility]PO [address] [place] [address]BF: MIRIAN Mj ALDRICHDOB: [id number] [place] [address] [facility] 09/27/2024 Primary Insurance:MEDICARE A AND BPolicy Number: [id number] Date:2434-14-99Kqjo Name:Lemuel SKAGGSDebra Barker ALDRICHDOB: [id number] [address] [address] [facility] 09/27/2024 Secondary Insurance:AETNA MEDICARE SUPPLEMENTPolicy Number: [id number] Date:0967-72-82Ovfn Name:Pema SKAGGSDebra Barker ALDRICHDOB: [id number] [address] [address] [facility] 09/26/2024 Mirian Barker [id number] [address] [address]Lie: (HP) Primary Insurance:MedicarePolic y Number: [id number] Date:2024-09-26 Mirian J AldrichDOB: [id number] [address] [address]Txy: (HP) [facility] 09/26/2024 Secondary Insurance:[employer] SSIPolicy Number: [id number] Date:9208-75-03VD [address] [place] [address]PY: Mirian Barker AldrichDOB: [id number] [address] [address]Awt: () [facility] 09/26/2024 Tertiary Insuran ce:Self PayPolicy Number: Effective Date:2024-09-26 NOT GIVENUNK [facility] 09/25/2024 Primary Insurance:MEDICARE A AND BPolicy Number: [id number] Date:9889-97-91Sdsm Name:Lemuel NOVAKB: [id number] [address] [place] [address] [facility] 09/25/2024 Secondary Insurance:AETNA MEDICARE SUPPLEMENTPolicy Number: [id number] Date:3504-07-51Cgkr Name:Pema FIELDS: [id number] [address] [place] [address] [facility] 09/19/2024 MIRIAN NOVAKB: [address] [address]Rir: () Primary Insurance:MEDICAREPolic y Number: [id number] Date:7184-98-52Kweq Name:Medicare VICKIE J ALDRICHDOB: [id number] [address] [place] [address] [facility] 09/19/2024 Secondary Insurance:AETNAPolicy Number: [id number] Date:8059-77-11Afhw Name:[facility] [place] [address], [place] [address]LR: MIRIAN NOVAKB: [id number] [address] [place] [address] [facility] 09/18/2024 Primary Insurance:MEDICARE A AND BPolicy Number: [id number] Date:8403-45-52Foyn Name:Lemuel NOVAKB: [id number] [address] [place] [address] [facility] 09/18/2024 Secondary Insurance:AETNA MEDICARE SUPPLEMENTPolicy Number: [id number] Date:8403-78-98Frog Name:Pema CORRALESB: [id number] [address] [address] [facility] 09/11/2024 Primary Insurance:MEDICARE A AND BPolicy Number: [id number] Date:0785-25-87Eabo Name:Lemuel CORRALESDOB: [id number] [address] [place] [address] [facility] 09/11/2024 Secondary Insurance:AETNA MEDICARE SUPPLEMENTPolicy Number: [id number] Date:5649-79-16Piub Name:Pema CORRALESB: [id number] [address] [address] [facility] 09/08/2024 Primary Insurance:MEDICARE A AND BPolicy Number: [id number] Date:8652-35-63Qxkp Name:Lemuel CORRALESB: [id number] [address] [address] [facility] 09/08/2024 Secondary Insurance:AETNA MEDICARE SUPPLEMENTPolicy Number: [id number] Date:0409-55-43Hldg Name:Pema CORRALESDOB: [id number] [address] [address] [facility] 09/06/2024 Primary Insurance:MEDICARE A AND BPolicy Number: [id number] Date:1825-72-21Dssg Name:Lemuel Barker ALDRICHDOB: [id number] [address] [place] [address] [facility] 09/06/2024 Secondary Insurance:AETNA MEDICARE SUPPLEMENTPolicy Number: [id number] Date:5847-10-77Jqdk Name:Pema CORRALESDOB: [id number] [address] [address] [facility] 09/01/2024 Primary Insurance:MEDICARE A AND BPolicy Number: [id number] Date:5012-66-65Qvge Name:Lemuel CORRALESDOB: [id number] [address] [address] [facility] 09/01/2024 Secondary Insurance:AETNA MEDICARE SUPPLEMENTPolicy Number: [id number] Date:8463-38-35Jnrl Name:Pema CORRALESB: [id number] [address] [address] [facility] 08/30/2024 Primary Insurance:MEDICARE A AND BPolicy Number: [id number] Date:2770-54-24Uucv Name:Lemuel CORRALESB: [id number] [address] [address] [facility] 08/30/2024 Secondary Insurance:AETNA MEDICARE SUPPLEMENTPolicy Number: [id number] Date:8418-86-55Eskk Name:Pema CORRALESB: [id number] [address] [address] [facility] 08/16/2024 Primary Insurance:MEDICARE A AND BPolicy Number: [id number] Date:1135-52-67Jmmu Name:Lemuel CORRALESDOB: [id number] [address] [address] [facility] 08/16/2024 Secondary Insurance:AETNA MEDICARE SUPPLEMENTPolicy Number: [id number] Date:3514-32-04Gnto Name:Pema CORRALESB: [id number] [address] [address] [facility] 08/16/2024 Mirian Cor[address]es[address] [address]Fkb: () Primary Insurance:MedicarePolic y Number: [id number] Date:2024-08-08 Mirian CorralesB: [id number] [address] [address]Jpt: () [facility] 08/16/2024 Secondary Insurance:Aetna SSIPolicy Number: [id number] Date:8750-15-29LT [address] [place] [address]JB: Mirian NovakB: [id number] [place] [id number]: () [facility] 08/16/2024 Tertiary Insuran ce:Self PayPolicy Number: Effective Date:2024-08-09 [facility] Primary Insurance:MEDICARE A AND BPolicy Number: [id number] Date:1061-97-41Zpuy Name:Lemuel FIELDS: [id number] [address] 08/14/2024 Secondary Insurance:AETNA MEDICARE SUPPLEMENTPolicy Number: [id number] Date:8837-51-01Ratg Name:Pema FIELDS: [id number] [address] 08/11/2024 Primary Insurance:MEDICARE A AND BPolicy Number: [id number] Date:1045-72-79Hfvc Name:Lemuel FIELDS: [id number] [address] 08/11/2024 Secondary Insurance:AETNA MEDICARE SUPPLEMENTPolicy Number: [id number] Date:1186-71-44Qncb Name:Pema FIELDS: [id number] [address] 08/09/2024 Primary Insurance:MEDICARE A AND BPolicy Number: [id number] Date:7752-59-81Xedn Name:Lemuel FIELDS: [id number] [address] [address] [facility] 08/09/2024 Secondary Insurance:AETNA MEDICARE SUPPLEMENTPolicy Number: [id number] Date:1435-53-02Rcoa Name:Pema NOVAKB: [id number] [address] [address] [facility] 08/07/2024 Primary Insurance:MEDICARE A AND BPolicy Number: [id number] Date:8415-79-52Xtnx Name:Lemuel NOVAKB: [id number] [address] [address] [facility] 08/07/2024 Secondary Insurance:AETNA MEDICARE SUPPLEMENTPolicy Number: [id number] Date:8937-11-20Ttyv Name:Pema NOVAKB: [id number] [address] [address] [facility] 08/04/2024 Primary Insurance:MEDICARE A AND BPolicy Number: [id number] Date:7867-96-88Tliu Name:Lemuel NOVAKB: [id number] [address] [address] [facility] 08/04/2024 Secondary Insurance:AETNA MEDICARE SUPPLEMENTPolicy Number: [id number] Date:7131-57-50Xzwf Name:Pema NOVAKB: [id number] [address] [address] [facility] 08/02/2024 Primary Insurance:MEDICARE A AND BPolicy Number: [id number] Date:5466-59-29Irus Name:Lemuel NOVAKB: [id number] [address] [address] [facility] 08/02/2024 Secondary Insurance:AETNA MEDICARE SUPPLEMENTPolicy Number: [id number] Date:8321-01-81Buva Name:Pema FIELDS: [id number] [facility] [address], [place] [address] [facility] 07/31/2024 Primary Insurance:MEDICARE A AND BPolicy Number: [id number] Date:8447-17-09Nrqy Name:Lemuel Barker SCARLETB: [id number] [address] [place] [address] [facility] 07/31/2024 Secondary Insurance:AETNA MEDICARE SUPPLEMENTPolicy Number: [id number] Date:3907-32-56Vgvt Name:Pema WORTHYMIRIAN J SCARLETB: [id number] [address] [address] [facility] 07/28/2024 Primary Insurance:MEDICARE A AND BPolicy Number: [id number] Date:3135-55-94Eshi Name:Lemuel NOVAKB: [id number] [address] [address] [facility] 07/28/2024 Secondary Insurance:AETNA MEDICARE SUPPLEMENTPolicy Number: [id number] Date:9045-61-44Waqk Name:Pema SKAGGSDebra Barker SCARLETB: [id number] [address] [place] [address] [facility] 07/28/2024 Primary Insurance:MEDICARE A AND BPolicy Number: [id number] Date:9734-52-27Cvww Name:Lemuel SKAGGSE Mj NOVAKB: [id number] [address] [address] [facility] 07/28/2024 Secondary Insurance:AETNA MEDICARE SUPPLEMENTPolicy Number: [id number] Date:2941-10-80Uaxm Name:Pema SKAGGSE Mj NOVAKB: [id number] [address] [address] [facility] 07/26/2024 Primary Insurance:MEDICARE A AND BPolicy Number: [id number] Date:8099-24-27Hvzw Name:P MIRIAN Mj NOVAKB: [id number] [facility] [address], [place] [address] [facility] 07/26/2024 Secondary Insurance:AETNA MEDICARE SUPPLEMENTPolicy Number: [id number] Date:7975-18-36Qlhh Name:Pema SKAGGSE Mj NOVAKB: [id number] [facility] [address], [place] [address] [facility] 07/24/2024 MIRIAN NOVAKB: [address] [place] [address]Jmf: () Primary Insurance:MEDICAREPolic y Number: [id number] Date:6258-21-29Iduh Name:Medicare VICKIE Mj NOVAKB: [id number] [address] [place] [address] [facility] 07/24/2024 Secondary Insurance:AETNAPolicy Number: [id number] Date:4932-44-87Mnzq Name:[place] [address] [address]EG: MIRIAN NOVAKB: [id number] [address] [address] [facility] 07/24/2024 Primary Insurance:MEDICARE A AND BPolicy Number: [id number] Date:0292-24-13Kdco Name:Lemuel NOVAKB: [id number] [address] [place] [address] [facility] 07/24/2024 Secondary Insurance:AETNA MEDICARE SUPPLEMENTPolicy Number: [id number] Date:8911-21-23Youq Name:Pema NOVAKB: [id number] [address] [place] [address] [facility] 07/21/2024 Primary Insurance:MEDICARE A AND BPolicy Number: [id number] Date:7051-93-79Cdla Name:Lemuel NOVAKB: [id number] [address] [address] [facility] 07/21/2024 Secondary Insurance:AETNA MEDICARE SUPPLEMENTPolicy Number: [id number] Date:6905-43-73Qrwn Name:Pema MIRIAN Mj NOVAKB: [id number] [address] [address] [facility] 07/17/2024 Primary Insurance:MEDICARE A AND BPolicy Number: [id number] Date:7666-18-10Hopk Name:Lemuel NOVAKB: [id number] [address] [address] [facility] 07/17/2024 Secondary Insurance:AETNA MEDICARE SUPPLEMENTPolicy Number: [id number] Date:4191-99-38Nrkv Name:Pema NOVAKB: [id number] [address] [address] [facility] 07/14/2024 Primary Insurance:MEDICARE A AND BPolicy Number: [id number] Date:7027-35-31Hcxa Name:Lemuel NOVAKB: [id number] [address] [address] [facility] 07/14/2024 Secondary Insurance:AETNA MEDICARE SUPPLEMENTPolicy Number: [id number] Date:8925-68-79Ggpn Name:Pema NOVAKB: [id number] [address] [address] [facility] 07/12/2024 Primary Insurance:MEDICARE A AND BPolicy Number: [id number] Date:4482-67-10Exny Name:Lemuel NOVAKB: [id number] [address] [address] [facility] 07/12/2024 Secondary Insurance:AETNA MEDICARE SUPPLEMENTPolicy Number: [id number] Date:8713-88-18Kywb Name:Pema FIELDS: [id number] [address] 06/20/2024 Primary Insurance:MEDICARE A AND BPolicy Number: [id number] Date:0442-04-75Aabi Name:Lemuel FIELDS: [id number] [address] 06/20/2024 Secondary Insurance:AETNA MEDICARE SUPPLEMENTPolicy Number: [id number] Date:6049-57-64Uibu Name:Pema FIELDS: [id number] [address]
== END 2025-06-18 10:57 | disposition home or self-care (01) ==
LOC: PST 10:57
PROVIDERS: PCP Internal Medicine; Visit Provider Urology
DX: Z01.812 Encounter for preprocedural laboratory examination (principal); N13.30 Unspecified hydronephrosis
CPT/HCPCS: 80048; 85025

== ENCOUNTER 2025-06-28 08:29 | Day surgery (SDC) | payer MEDICARE, OTHER, SELFPAY ==
[2025-06-18 11:08] VITALS: BP 141/82; PULSE 83; TEMP 36.8; O2SAT 100; BMI 17.4
[2025-06-28] VITALS (10 sets, daily range): BP systolic 117–132; BP diastolic 65–90; PULSE 64–78; TEMP 36.1–36.5; O2SAT 96–99; BMI 17.4
--- NOTE | 2025-06-28 | XR_ITS ---
[address] [address] Patient Name: JEANETTE COCHRAN MRN: [id number] date: 1955 Sex: F Assigned Patient Location: [facility] Current Patient Location: [facility] Accession/Order Number: [id number] Exam Date: 06/28/2025 12:43 Report Date: 06/28/2025 14:21 At the request of: USHA SOLIS MD Procedure: XR urethrogram retrograde Intraoperative study. Reason for exam: Kidney stone Findings: 3 images were obtained intraoperatively. Contrast is seen within the right collecting system with subsequent stent placement. Cumulative Air Kerma in mGy: 9.75 mGy XR/XR urethrogram retrograde Impression: Intraoperative study. Impression dictated by: Toribio Michael Jr., D.O. 06/28/2025 2:21 PM Dictation Location: [place] [address] Electronically authenticated by: [id number] Y Date: 06/28/2025 14:21
[2025-06-28 08:37] LABS: Hematocrit 29.6 % (36.0-48.0); Hemoglobin 9.8 g/dL (12.0-16.0); Immature Granulocytes Abs Auto 0.01 10^3/uL (0.00-0.03); Immature Granulocytes Pct Auto 0.3 % (0.0-0.5); Lymphocytes Absolute Auto 0.8 10^3/uL (1.2-3.8); Mean Corpuscular HGB Conc 33.1 g/dL (29.9-35.2); Mean Corpuscular Hemoglobin 33.9 pg (26.7-34.0); Mean Corpuscular Volume 102.4 fL (81.0-99.0); Platelet Count 67 10^3/uL (150-450); Red Blood Count 2.89 10^6/uL (4.20-5.40); White Blood Count 3.1 10^3/uL (4.0-11.0)
--- OUTSIDE RECORDS SUMMARY | 2025-06-28 08:43 | XMS_ITS | CCD ---
Author Organization [facility] Care Team Providers Care Assistant Chief Engineer Name Role Phone PALOMARES, EBER J Referring Unavailable PALOMARES, EBER J Primary Care Unavailable RADIOLOGIST, MTH GEN Attending Unavailable PALOMARES, EBER J Referring Unavailable PALOMARES, EBER J Primary Care Unavailable RADHA CARVALHO Admitting Unavailable RADHA CARVALHO Attending Unavailable PALOMARES, EBER J Primary Care Unavailable PALOMARES, EBER J Referring Unavailable PALOMARES, EBER J Primary Care Unavailable Palomares, Eber J Primary Care Provider DO Conner Stanley Primary Care Provider [phone] DO Conner Stanley Attending Provider None, No PCP Unavailable Unavailable Henrique Vail Referring Unavailable Henrique Vail Attending Unavailable DO Conner Stanley Primary Care Provider MD Henrique Vail Attending Provider [phone] MD Roz Aguilera Attending Provider DO Conner Stanley Referring Provider [phone] Self, Referral Attending Provider Unavailable DR PATRICK [...] Unavailable DO Conner Stanley Primary Care Provider [phone] RYAN Kovacs Emergency Provider DO Carlin Godfrey Emergency Provider [phone] Jaden SULLIVAN Conner Rooney Unavailable Kierra Posadas APRN Unavailable Jaden SULLIVAN Conner Rooney Primary Care Provider LINDA HODGE Attending Unavailable CONNER STANLEY Primary Care Unavailab Jaden Conner SULLIVAN Primary Care Provider Jaden DO Conner Barker Unavailable [phone] Jaden SULLIVAN, Conner Primary Care Provider Vonnie Ponce PA-C Attending Provider Alejandra KRISHNAMURTHY-C, Pili Attending Provider Nathan KRISHNAMURTHY-C, Pili Richardson Attending Provider Jaden SULLIVAN, Conner Primary Care Provider Nathan KRISHNAMURTHY-C, Pili Richardson Attending Provider Rey Schrader MD Attending Provider Vonnie Aguirre APRN Unavailable Jaden DO Conner Primary Care Provider Benedicto Lan DO Attending Provider [phone] Clarence Vines DO Attending Provider Raciel BRONSON, Imtone Referring Provider Unavailable Primary Care Provider Unavailabl VONNIE Sorto Attending Unavailable CONNER STANLEY Referring Unavailable BENEDICTO LAN Attending Unavailable CONNER STANLEY Referring Unavailable KIERRA POSADAS Attending Unavailable CONNER STANLEY Referring Unavailable CONNER STANLEY Attending Unavailable EMELI JUAN Attending Unavailable BENEDICTO LAN Referring Unavailable BENEDICTO LAN Attending Unavailable CONNER STANLEY Attending Unavailable VASGENARO, CONNER Barker Referring Unavailable VASGENARO, CONNER Barker Attending Unavailable CONNER STANLEY Referring Unavailable Clarence Vines DO Attending Provider Raciel BRONSON, Imtone Referring Provider [phone] Javad Cruz MD Emergency Provider Clarence Vines DO Attending Provider [phone] Rey Schrader MD Referring Provider Conner Stanley DO Primary Care Provider [phone] Rey Schrader MD Attending Provider [phone] Raciel BRONSON, Rey Other Provider Vonnie Coronado CMA Attending Provider Unavailabl e Clarence Vines DO Attending Provider Kierra Posadas APRN Unavailable [phone] Conner Stanley DO Primary Care Provider Rey Schrader MD Referring Provider [phone] Conner Stanley DO Primary Care Provider Clarence Vines DO Attending Provider [phone] Juan Whalen MD Unavailable Clarence Vines DO Unavailable Vonnie Aguirre APRN Unavailable [phone] CONNER STANLEY Primary Care Physician Carlin SOLIS Attending Unavailable Carlin SOLIS Attending Unavailable Conner Stanley DO Primary Care Provider Clarence Vines DO Attending Provider Rey Schrader MD Referring Provider CONNER STANLEY Primary Care Unavailab le VASCHAK, CONNER ROONEY Primary Care Unavailab le VASCHAK, CONNER ROONEY Primary Care Unavailab le VASCHAK, CONNER ROONEY Primary Care Unavailab le VASCHAK, CONNER ROONEY Primary Care Unavailab le VASCHAK, CONNER ROONEY Primary Care Unavailab le VASCHAK, CONNER ROONEY Primary Care Unavailab le VASCHAK, CONNER ROONEY [facility] Unavailab le VASCHAK, CONNER ROONEY [facility] Unavailab le VASCHAK, CONNER ROONEY [facility] Unavailab le VASCHAK, CONNER ROONEY Primary [facility] Unavailab le VASCHAK, CONNER ROONEY Primary [facility] Unavailab le VASCHAK, CONNER ROONEY Primary Care Unavailab le VASCHAK, CONNER ROONEY Primary Care Unavailab le VASCHAK, CONNER TORIBIO Primary Care Unavailab le VASCHAK, CONNER TORIBIO Primary Care Unavailab le VASCHAK, CONNER TORIBIO Primary Care Unavailab le VASCHAK, CONNER TORIBIO Primary Care Unavailab le VASCHAK, CONNER TORIBIO Primary Care Unavailab le VASCHAK, CONNER TORIBIO Primary Care Unavailab le DENITA, EBONIE MARQUES Referring Unavailable VASCHAK, CONNER TORIBIO Primary Care Unavailab le DENITA, EBONIE MARQUES Referring Unavailable VASCHAK, CONNER TORIBIO Primary Care Unavailab le DENITA, EBONIE MARQUES Referring Unavailable VASCHAK, CONNER TORIBIO Primary Care Unavailab le SURJITNAVEEDUN, NENITA Mcadams Referring Unavailable VASCHAK, CONNER TORIBIO Primary Care Unavailab JES Carbajal Attending Unavailable VASCHAK, CONNER [facility] Care Unavailab le VASCHAK, CONNER TORIBIO Primary Care Unavailab le YEISONJES CELIS Attending Unavailable YEISON URENA Referring Unavailable SELF Referring Unavailable VASCHAK, CONNER ROONEY Primary Care Unavailab le SELF Referring Unavailable VASCHAK, CONNER ROONEY [facility] Care Unavailab le VASCHAK, CONNER [facility] Care Unavailab le VASCHAK, CONNER [facility] Care Unavailab le VASCHAK, CONNER [facility] Care Unavailab le DENITA, EBONIE MARQUES Referring Unavailable JUAN WHALEN Referring Unavailable VASCHAK, CONNER TORIBIO Primary Care Unavailab JUAN Mora Referring Unavailable VASCHAK, CONNER TORIBIO Primary Care Unavailab JUAN Mora Referring Unavailable VASCHAK, CONNER ROONEY [facility] Care Unavailab le VASCHAK, CONNER ROONEY [facility] Care Unavailab le VASCHAK, CONNER ROONEY Primary Care Unavailab ALIYAH Quinn Attending Unavailable VASRAISAK, CONNER [facility] Care Unavailab JUAN Mora Attending Unavailable VASCHAK, CONNER ROONEY Primary Care Unavailab le VASCHAK, CONNER ROONEY Primary Care Unavailab le VASCHAK, CONNER ROONEY Primary Care Unavailab le VASCHAK, CONNER TORIBIO Primary Care Unavailab le VASCHAK, CONNER TORIBIO Primary Care Unavailab le VASCHAK, CONNER TORIBIO Primary Care Unavailab le VASCHAK, CONNER TORIBIO Primary Care Unavailab le VASCHAK, CONNER TORIBIO Primary Care Unavailab le TAMERA EVANS Attending Unavailable TAMERA EVANS Referring Unavailable VASCHAK, CONNER ROONEY Primary Care Unavailab le VASCHAK, CONNER TORIBIO Primary Care Unavailab le VASCHAK, CONNER TORIBIO Primary Care Unavailab le VASCHAK, CONNER ROONEY Primary Care Unavailab le VASCHAK, CONNER ROONEY Primary Care Unavailab le JUAN WHALEN Attending Unavailable VASCHAK, CONNER ROONEY Primary Care Unavailab le VASCHAK, CONNER ROONEY Primary Care Unavailab le VASCHAK, CONNER ROONEY Primary Care Unavailab le DENITA, EBONIE MARQUES Attending Unavailable VASCHAK, CONNER ROONEY Primary Care Unavailab le VASCHAK, CONNER ROONEY Primary Care Unavailab le DENITA, EBONIE MARQUES Referring Unavailable VASCHAK, CONNER ROONEY Primary Care Unavailab le VASCHAK, CONNER ROONEY Primary Care Unavailab le VASCHAK, CONNER ROONEY Primary Care Unavailab le VASCHAK, CONNER ROONEY Primary Care Unavailab le DENITA, EBONIE MARQUES Referring Unavailable VASCHAK, CONNER ROONEY Primary Care Unavailab le DENITA, EBONIE MARQUES Referring Unavailable VASCHAK, CONNER ROONEY Primary Care Unavailab le DENITA, EBONIE MARQUES Referring Unavailable VASCHAK, CONNER ROONEY [facility] Care Unavailab le VASCHAK, CONNER ROONEY [facility] Care Unavailab le VASCHAK, CONNER ROONEY Primary Care Unavailab le VASCHAK, CONNER ROONEY [facility] Care Unavailab le VASCHAK, CONNER ROONEY Primary Care Unavailab le VASCHAK, CONNER ROONEY [facility] Care Unavailab le VASCHAK, CONNER ROONEY [facility] Care Unavailab le VASCHAK, CONNER ROONEY Primary Care Unavailab le VASCHAK, CONNER ROONEY Primary Care Unavailab le VASCHAK, CONNER ROONEY [facility] Care Unavailab le VASCHAK, CONNER ROONEY [facility] Care Unavailab le VASCHAK, CONNER ROONEY [facility] Care Unavailab le VASCHAK, CONNER ROONEY Primary Care Unavailab le JUAN WHALEN Attending Unavailable JUAN WHALEN Admitting Unavailable VASCHAK, CONNER ROONEY Primary Care Unavailab le VASCHAK, CONNER ROONEY Primary Care Unavailab le VASCHAK, CONNER ROONEY Primary Care Unavailab le SELF Referring Unavailable VASCHAK, CONNER ROONEY Primary Care Unavailab le VASCHAK, CONNER ROONEY Primary Care Unavailab le VASCHAK, CONNER ROONEY Primary Care Unavailab le VASCHAK, CONNER ROONEY Primary Care Unavailab le NENITA KEN Attending Unavailable VASCHAK, CONNER ROONEY Referring Unavailab le VASCHAK, CONNER ROONEY Primary Care Unavailab le VASCHAK, CONNER ROONEY Primary Care Unavailab le VASCHAK, CONNER ROONEY Primary Care Unavailab le VASCHAK, CONNER ROONEY Primary Care Unavailab le VASCHAK, CONNER ROONEY Primary Care Unavailab le VASCHAK, [facility] Care Unavailab le ANGELAK, [facility] Care Unavailab JUAN Mora Attending Unavailable [facility], [facility] Unavailab le Vaschak, [facility] Care Unavailable Asaad, Imad Admitting Unavailable Asaad, Imad Attending Unavailable [facility] Primary Care Unavailable Clarence Vines II Attending Unavaila ble Adamowicz II, Clarence Barker Admitting Unavaila ble Asaad, Imad Referring [facility] Unavailable Javad Cruz Jr Admitting Unavailable Javad Cruz Jr Attending Unavailable [facility] Care Unavailable Pili Evans Attending Unavailable Pili Evans Admitting Unavailable [facility], [facility] Care Unavailable Vonnie Ponce Attending Unavailable Vonnie Ponce Admitting [facility]available [facility] Care Unavailable Benedicto Lan Attending Unavailable Edyta, Benedicto Admitting Unavailable Vaschak, Conner Primary Care Unavailable EdytaRylan godfreyy Attending Unavailable Edyta, Benedicto Admitting Unavailable Asaad, Imad Attending Unavailable Asaad, Imad Admitting Unavailable [facility], [facility] Care Unavailable [facility], [facility] Care Unavailable Asaad, Imad Attending Unavailable Asaad, Imad Admitting Unavailable Allergies Allergy Classification Reported Allergen(s) Allergy Type Date of Onset Reaction(s) Facility (20 sources) Lactase; Translations: [LACTASE] Drug Allergy 9 [facility] (20 sources) Wheat preparation; Translations: [WHEAT] Drug Allergy 9 [facility] (20 sources) diphenhydrAMINE Drug Allergy 3 [facility] (20 sources) Gluten Allergy to substance 3 [facility] (20 sources) WHEAT DEXTRIN Drug Allergy 9 [facility] (20 sources) diphenylguanidine; Translations: [DIPHENYLGUANIDINE] Drug Allergy 5 [facility] (20 sources) Iodopropynyl Butylcarbamate; Translations: [IODOPROPYNYL BUTYLCARBAMATE] Drug Allergy 5 [facility] (1 source) No Known Medication Allergies; Translations: [No Known Medication Allergies] Propensity to adverse reactions (disorder) [facility] Medications Current Medications Medication Drug Class(es) Dates Sig (Normalized) Sig (Original) acetaminophen 500 mg oral tablet (4 sources) Start: 05-09-2025 take 2 tablets by mouth every six hours as needed acetaminophen (TYLENOL EXTRA STRENGTH) 500 mg tablet Take 2 tablets by mouth every 6 hours as needed for pain. 50 tablet 05/09/2025 4:30 PM EDT 05/09/2025 Active amylase 099164 unt / lipase 9000 unt / protease [id number] unt oral capsule (20 sources) Digestive Enzyme capsule as directed Orally Active apixaban 2.5 mg oral tablet (1 source) Factor Xa Inhibitor Start: 05-10-2025 End: 05-17-2025 take 1 tablet by mouth twice daily in the evening apixaban (ELIQUIS) 2.5 mg tab(s) Take 1 tablet by mouth two times a day for 7 days. Patient should start on May 10, 2025. 14 tablet 05/09/2025 4:30 PM EDT 05/10/2025 05/17/2025 Active bacillus subtilis [id number] unt / inulin 1000 mg chewable tablet (20 sources) Probiotic chewab le tablet as directed Orally Active bisacodyl 5 mg delayed release oral tablet (11 sources) Stimulant Laxative Start: 04-27-2025 Bisacodyl (DULCOLAX) 5 mg tab Indications: Carcinomatosis peritonei (HCC) Take 1 tablet by mouth as directed. Take 2 tablets at 3pm the day before surgery 2 tablet 04/27/2025 Active calcium carbonate 1500 mg oral tablet (20 sources) take 1 tablet by mouth in the morning calcium carbonate 1500 (600 Ca) MG tablet Take 1,500 mg by mouth in the morning. Active Calcium Carbonate / vitamin D3 (18 sources) calcium carbonate/vitamin D3 (CALCIUM CHEW ORAL) Take by mouth. Active calcium vegan (13 sources) Start: 11-14-2024 take 1000 mg by mouth once daily Start: 11-14-2024 take 1000 mg by mouth once yen ly calcium vegan Active 1000 MG PO Daily November 14, 2024 1:00am cholecalciferol 0.05 mg oral capsule (20 sources) Vitamin D Start: 11-06-2024 take 1 capsule by mo ut once daily take 1 capsule by mouth once yen ly Cholecalciferol, Vitamin D3, 25 mcg (1,000 unit) cap Take 1,000 Units by mouth once daily. Active take 1 tablet by mouth in the mo rning cholecalciferol (Vitamin D-3) 20 MCG (800 UNIT) tablet Take 800 Units by mouth in the morning. Active cholecalciferol, vitamin D3, (VITAMIN D3 ORAL) (7 sources) cholecalciferol, vitamin D3, (VITAMIN D3 ORAL) Take by mouth. 0 Active Digestive Enzymes capsule (14 sources) Start: 11-06-2024 take 1 capsule by mouth once daily at mealtime Start: 11-06-2024 take 1 capsule by or ut once daily at mealtime Digestive Enzymes capsule Active 1 CAP P O Daily November 06, 2024 1:00am administer with food; swallow whole; do not crush/chew/dissolve/break/cut Start: 11-06-2024 take 1 capsule by mo ut once daily at mealtime Digestive Enzymes capsule Active 1 CAP P O Daily November 06, 2024 12:00am administer with food; swallow whole; do not crush/chew/dissolve/break/cut fexofenadine hydrochloride 60 mg oral tablet (20 sources) Histamine-1 Receptor Antagonist End: 01-09-2025 take 1 tablet by mouth once daily fexofenadine (Shantelle) 60 MG tablet Take 60 mg by mouth Daily 01/09/2025 Discontinued hydrOXYzine hydrochloride 25 mg oral tablet (20 sources) Antihistamine Start: 04-21-2024 take 1 tablet by mouth every twenty-four hours as needed hydrOXYzine HCl (ATARAX) 10 mg tablet Take 10 mg by mouth at bedtime as needed for itching/rash. 04/21/2024 Suspended Start: 03-25-2024 hydrOXYzine HC l (ATARAX) 25 mg tablet Hydroxyzine Hcl Active 25 MG PO Q6H April 08, 2024 12:00am 03/25/2024 Active Start: 03-25-2024 End: 11-06-2024 Hydroxyzine Hcl 25 mg tablet Discontinued MG March 25, 2024 12:00am November 06, 2024 2:28pm Start: 03-25-2024 End: 11-06-2024 take 1 tablet by mouth every six hours as needed Hydroxyzine Hcl 25 mg tablet Discontinued 25 MG PO Q6H as needed for itching April 08, 2024 12:00am November 06, 2024 2:28pm Start: 03-25-2024 Hydroxyzine Hc l Active MG TABLET March 25, 2024 12:00am ibuprofen 200 mg oral capsule (7 sources) Nonsteroidal Anti-inflammatory Drug Start: 02-09-2025 take 1 capsule by mouth every six hours as needed Lactobacillus acidophilus (20 sources) take 1 capsule by mouth once daily Lactobacillus acidophilus (PROBIOTIC ORAL) Take 1 capsule by mouth once daily. Active take 1 capsule by mouth once yen ly Lactobacillus acidophilus (PROBIOTIC ORAL) Take 1 capsule by mouth once daily. Suspended Lactobacillus ac idophilus (PROBIOTIC ORAL) Take by mouth. 0 Active Lactobacillus Combination No .9 (Adult 50 Plus Probiotic) 4 billion cell capsule (8 sources) Start: 01-23-2025 take 4 capsules by m outh once daily Start: 01-23-2025 take 4 capsules by m outh once daily Lactobacillus Combination No.9 (Adult 50 Plus Probiotic) 4 billion cell capsule Active 4000 MMU CELLS PO Daily January 23, 2025 12:00am administer with a meal Magnesium (20 sources) Start: 01-23-2025 take 1 tablet by mouth once da navjot Start: 01-23-2025 take 1 tablet by morgan th once daily Magnesium 200 mg tablet Active 200 MG PO Daily January 23, 2025 12:00am Start: 11-06-2024 End: 11-14-2024 take 1 tablet by mouth once daily Magnesium 200 mg tablet Discontinued 200 MG PO Daily November 06, 2024 1:00am November 14, 2024 12:17pm Start: 11-06-2024 take 1 tablet by morgan th once daily Magnesium 200 mg tablet Active 200 MG PO Daily November 06, 2024 12:00am Magnesium 200 mg tab Take by mouth. Active magnesium 200 MG tablet 200 mg 1 (one) time each day at the same time. Active metroNIDAZOLE 500 mg oral tablet (7 sources) Nitroimidazole Antimicrobial Start: 04-27-2025 metroNIDAZOLE (FLAGYL) 500 mg tablet Indications: Carcinomatosis peritonei (HCC) Take 1 tablet by mouth as directed. Take four tablets (2000mg) at 7pm and four tablets (2000mg) at 11pm the day prior to surgery 8 tablet 04/27/2025 Active morphine sulfate 15 mg extended release oral tablet (6 sources) Opioid Agonist Start: 02-17-2025 take 1 tablet by mouth every twelve hours Start: 02-17-2025 take 7.5 mg by mouth every twelve hours Morphine 15 mg tablet extended release Active 7.5 MG PO Every 12 hours 7 7 February 17, 2025 Multiple Vitamin (Multi Vitamin) tablet (20 sources) Multiple Vitamin (Multi Vitamin) tablet 1 (one) time each day at the same time. Active Multiple Vitamins-Minerals (HAIR SKIN & NAILS ADVANCED PO) (20 sources) Multiple Vitamins-Minerals (HAIR SKIN & NAILS ADVANCED PO) Take by mouth Active neomycin sulfate 500 mg oral tablet (8 sources) Aminoglycoside Antibacterial Start: 04-27-20 End: 05-01-20 neomycin 500 mg tablet Indications: Carcinomatosis peritonei (HCC) Take 1 tablet by mouth as directed. 8 tablet 05/01/2025 Active ondansetron 4 mg oral tablet (11 sources) Serotonin-3 Receptor Antagonist Start: 05-09-20 take 1 tablet by mouth every six hours as needed ondansetron (ZOFRAN) 4 mg tablet Take 1 tablet by mouth every 6 hours as needed for nausea/vomiting. 10 tablet 05/09/2025 4:30 PM EDT 05/09/2025 Active Start: 02-09-2025 take 1 tablet by morgan th every eight hours as needed for nausea and vomiting oxyCODONE hydrochloride 5 mg oral tablet (6 sources) Opioid Agonist Start: 02-17-2025 take 5-10 mg by mouth every six hours as needed for pain pantoprazole 20 mg delayed release oral tablet (20 sources) Proton Pump Inhibitor Start: 02-19-2025 take 1 tablet by mouth once daily Start: 05-11-2024 End: 08-09-2024 take 1 tablet by mouth once daily in the morning pantoprazole DR (PROTONIX) 40 mg tablet Take 1 tablet by mouth daily at 6 am. Patient should start on May 11, 2024. 30 tablet 2 05/11/2024 Active petrolatum 0.41 mg/mg topical ointment (20 sources) Start: 05-10-2024 End: 06-09-2024 white petrolatum (AQUAPHOR) 41 % topical ointment Apply to affected area as needed. 396 g 1 05/10/2024 Active polyethylene glycol 3350 30446 mg powder for oral solution (11 sources) Osmotic Laxative Start: 04-27-2025 polyethylene glycol 3350 (MIRALAX) 17 gram/dose powder Indications: Carcinomatosis peritonei (HCC) Purchase one 238 gram bottle of Miralax Use as directed 238 g 04/27/2025 Active prochlorperazine 5 mg oral tablet (6 sources) Phenothiazine Start: 02-17-2025 Completed/Discontinued Medications Medication Drug Class(es) Dates Sig (Normalized) Sig (Original) B-Complex With Vitamin C tablet (14 sources) Start: 11-06-2024 End: 11-14-2024 take 1 tablet by mouth once daily B-Complex With Vitamin C tablet Discontinued 1 TAB PO Daily November 06, 2024 1:00am November 14, 2024 12:17pm Start: 11-06-2024 take 1 tablet by morgan th once daily B-Complex With Vitamin C tablet Active 1 TAB PO Daily November 06, 2024 12:00am Calcium Carb, Citrate, Malat e 250 mg calcium capsule (14 sources) Start: 11-06-2024 End: 11-14-2024 Calcium Carb, Citrate, Malat e 250 mg calcium capsule Discontinued MG PO November 06, 2024 1:00am November 14, 2024 12:16pm Start: 11-06-2024 Calcium Carb, Citrate, Malate 250 mg calcium capsule Active MG PO November 06, 2024 12:00am desoximetasone 0.5 mg/ml topical cream (18 sources) Corticosteroid Start: 03-25-2024 End: 11-06-2024 Desoximetasone (Topicort) 0.05 % cream Discontinued 1 APPLIC TOPICAL Twice daily 100 March 25, 2024 12:00am November 06, 2024 2:28pm docusate sodium 50 mg / sennosides, [facility] 8.6 mg oral tablet (11 sources) Start: 02-19-2025 End: 03-05-2025 take 1 tablet by mouth twice daily Sennosides-Docusate Sodium (Senna-S) 8.6-50 mg tablet Discontinued 1 TAB-CAP PO Twice daily 60 February 19, 2025 12:00am March 05, 2025 1:47pm Start: 02-17-2025 End: 03-05-2025 take 2 tablets by mouth once daily at bedtime as needed for constipation Sennosides-Docusate Sodium (Senna Plus) 8.6-50 mg tablet Discontinued 2 TAB PO Daily at bedtime as needed for constipation February 17, 2025 12:00am March 05, 2025 1:47pm methylPREDNISolone 4 mg oral tablet (16 sources) Corticosteroid Start: 04-08-2024 End: 11-06-2024 Methylprednisolone (Medrol (Silverio)) 4 mg tablets,dose pack Discontinued 0 PO .COMPLEX April 08, 2024 12:00am November 06, 2024 2:28pm for 6 days Multivitamin tablet (14 sources) Start: 11-06-2024 End: 11-14-2024 take 1 tablet by mouth once daily Multivitamin tablet Discontinued 1 TAB PO Daily November 06, 2024 1:00am November 14, 2024 12:17pm Start: 11-06-2024 take 1 tablet by morgan th once daily Multivitamin tablet Active 1 TAB PO Daily November 06, 2024 12:00am predniSONE 10 mg oral tablet (20 sources) Start: 07-04-2024 End: 09-19-2024 take 2 tablets by mouth once daily, then take 1 tablet by mouth once daily predniSONE (Deltasone) 10 MG tablet TAKE 2 TABLETS BY MOUTH DAILY FOR 7 DAYS, then TAKE 1 TABLET BY MOUTH DAILY FOR 7 DAYS 07/04/2024 09/19/2024 Discontinued Start: 06-05-2024 End: 06-25-2024 take 6 tablets [...] 7 days. 142 tablet 05/10/2024 06/05/2024 Discontinued sulfamethoxazole 800 mg / trimethoprim 160 mg oral tablet (4 sources) Dihydrofolate Reductase Inhibitor Antibacterial, Sulfonamide Antimicrobial Start: 05-03-2024 End: 05-13-2024 take 1 tablet by mouth every twelve hours sulfamethoxazole-trimethoprim (BACTRIM DS) 800-160 mg per tablet Take 1 tablet by mouth every 12 hours. 05/03/2024 05/13/2024 Suspended triamcinolone acetonide 0.001 mg/mg topical ointment (20 sources) Corticosteroid Start: 11-17-2024 End: 05-01-2025 triamcinolone acetonide (KENALOG) 0.1 % ointment Apply to affected areas twice daily Wednesday-Wednesday as needed. Avoid face, groin, and armpits 453.6 g 1 11/17/2024 05/01/2025 Discontinued Start: 09-18-2024 End: 12-13-2024 triamcinolone (Kenalog) 0.1 % cream Indications: Dermatitis APPLY TO THE AFFECTED AREA(S) topically 2-3 times DAILY NEEDED *avoid face and groin* 454 g 1 09/18/2024 12/13/2024 Discontinued (Therapy completed) Start: 06-09-2024 triamcinolone (Kenalog) 0.1 % cream Indications: Dermatitis APPLY TO THE AFFECTED AREA(S) topically 2-3 times DAILY NEEDED *avoid face and groin* 454 g 1 06/09/2024 Active Start: 05-10-2024 End: 08-08-2024 triamcinolone (Kenalog) 0.1 % ointment Apply topically twice a day 05/10/2024 08/08/2024 Start: 05-10-2024 End: 08-08-2024 triamcinolone acetonide (RAGINI ALOG) 0.1 % ointment Apply to affected area two times a day. 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] Onset: 3 06-25-2023 Chronic Cancer of ovary (20 sources) Malignant tumor of ovary; Translations: [Malignant neoplasm of unspecified ovary] Onset: 5 02-09-2025 Chronic Deficiency and other anemia (10 sources) Anemia; Translations: [Anemia, unspecified] Onset: 5 05-01-2025 Episodic Diseases of white blood cells (20 sources) Idiopathic hypereosinophilic syndrome; 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] Onset: 4 05-06-2024 Chronic Immunizations and screening for infectious disease (4 sources) Encounter for screening for human papillomavirus (HPV); Translations: [Antibody studies abnormal] Onset: 2 10-01-2024 Episodic Lymphadenitis (20 sources) Lymphadenopathy; Translations: [Generalized enlarged lymph nodes] Onset: 4 05-06-2024 Episodic Menopausal disorders (20 sources) Disorder associated with menstruation AND/OR menopause; Translations: [Menopausal and female climacteric states] Onset: 3 06-25-2023 Chronic Neoplasms of unspecified nature or uncertain behavior (2 sources) Thrombocytosis; Translations: [Thrombocytosis] 09-19-2024 Episodic Osteoarthritis (20 sources) Degenerative joint disease involving multiple joints; Translations: [Primary generalized (osteo)arthritis] Onset: 3 Resolved: 4 07-19-2023 Chronic Osteoporosis (20 sources) Age-related osteoporosis without current pathological fracture; Translations: [Senile osteoporosis] Onset: 2 05-06-2024 Chronic Other aftercare (1 source) correction (current) use of systemic steroids; Translations: [Current chronic use of systemic steroids] Onset: 4 Episodic Other and unspecified benign neoplasm (2 sources) Leiomyoma; Translations: [Benign neoplasm of connective and other soft tissue, unspecified] 01-09-2025 Episodic Other connective tissue disease (2 sources) Swelling of lower limb; Translations: [Other specified soft tissue disorders] 01-09-2025 Episodic Other diseases of kidney and ureters (2 sources) Hydronephrosis; Translations: [Unspecified hydronephrosis] Onset: 5 Episodic Other female genital disorders (2 sources) Cyst of uterus; Translations: [Other specified noninflammatory disorders of uterus] 07-24-2024 Episodic Other gastrointestinal disorders (20 sources) Constipation; Translations: [Constipation, unspecified] Onset: 5 01-04-2025 Episodic Other infections; including parasitic (20 sources) H/O: skin disorder; Translations: [Personal history of other infectious and parasitic diseases] Onset: 5 Resolved: 5 04-04-2024 Episodic Other inflammatory condition of skin (1 source) Pruritus, unspecified; Translations: [Pruritus] Onset: 4 Episodic Other nervous system disorders (18 sources) Pain due to neoplastic disease; Translations: [Neoplasm related pain (acute) (chronic)] Onset: 5 02-17-2025 Chronic Other nervous system disorders (1 source) Neoplasm related pain (acute) (chronic); Translations: [Neoplasm related pain (acute) (chronic)] Onset: 5 Chronic Other nutritional; endocrine; and metabolic disorders (2 sources) Decreased body mass index; Translations: [Body mass index (BMI) 19.9 or less, adult] 09-19-2024 Episodic Other nutritional; endocrine; and metabolic disorders (4 sources) Unintentional weight loss; Translations: [Abnormal weight loss] 12-13-2024 Episodic Other nutritional; endocrine; and metabolic disorders (20 sources) Weight decreased; Translations: [Abnormal weight loss] Onset: 5 01-04-2025 Episodic Other skin disorders (20 sources) Eruption; Translations: [Rash and other nonspecific skin eruption] Onset: 4 Resolved: 5 03-25-2024 Episodic Other skin disorders (1 source) Rash and other nonspecific skin eruption; Translations: [Rash] Onset: 4 Episodic Other upper respiratory disease (1 source) Allergic rhinitis due to pollen; Translations: [Allergic rhinitis due to pollen] 11-20-2024 Chronic Other upper respiratory disease (1 source) Allergic rhinitis due to pollen; Translations: [Seasonal allergic rhinitis due to pollen] Onset: 5 Chronic Pancreatic disorders (not diabetes) (2 sources) Disorder of pancreas; Translations: [Disease of pancreas, unspecified] 12-06-2024 Episodic Residual codes; unclassified (20 sources) Edema; Translations: [Edema, unspecified] Onset: 5 Resolved: 5 04-04-2024 Episodic Residual codes; unclassified (2 sources) Postmenopausal state; Translations: [Asymptomatic menopausal state] 07-24-2024 Episodic Residual codes; unclassified (6 sources) Postoperative state; Translations: [Other specified postprocedural states] Onset: 5 05-14-2025 Episodic Residual codes; unclassified (1 source) BRCA1 gene mutation positive; Translations: [Genetic susceptibility to malignant neoplasm of breast] 05-29-2025 Episodic Residual codes; unclassified (1 source) Genetic susceptibility to malignant neoplasm of breast; Translations: [BRCA1 gene mutation positive] Onset: Episodic Residual codes; unclassified (1 source) Genetic susceptibility to other malignant neoplasm; Translations: [BRCA1 gene mutation positive] Onset: 5 Episodic Residual codes; unclassified (2 sources) Other specified postprocedural states; Translations: [Post-operative state] Onset: 5 Episodic Secondary malignancies (20 sources) Carcinomatosis of peritoneal cavity; 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] Onset: 5 02-06-2025 Chronic Secondary malignancies (1 source) Secondary malignant neoplasm of retroperitoneum and peritoneum; 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)] Onset: 5 Chronic Secondary malignancies (1 source) 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; Translations: [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] Onset: 5 Chronic Unclassified (3 sources) Patient encounter status; Translations: [Colon cancer screening] Onset: 9 Resolved: 9 04-11-2019 Unclassified (1 source) Malignant neoplasm of bilateral ovaries (HCC); Translations: [Malignant neoplasm of bilateral ovaries (HCC)] Onset: 5 Unclassified (1 source) Peripheral eosinophilia; Translations: [Peripheral eosinophilia] Onset: 4 Past or Other Problems Problem Classification Problem Date Documented Da te Episodic/Chronic Abdominal pain (20 sources) Right lower quadrant pain; Translations: [Right lower quadrant pain] Onset: 01-15-2025 09-19-2024 Episodic Allergic reactions (20 sources) Urticaria; Translations: [Urticaria, unspecified] Onset: 05-08-2024 04-08-2024 Episodic Diseases of mouth; excluding dental (20 sources) Edema of uvula; Translations: [Other lesions of oral mucosa] Onset: 01-29-2025 01-29-2025 Episodic Malaise and fatigue (20 sources) Fatigue; Translations: [Other fatigue] Onset: 09-26-2024 Resolved: 02-08-2025 09-19-2024 Episodic Nausea and vomiting (20 sources) Nausea; Translations: [Nausea] Onset: 01-15-2025 12-13-2024 Episodic Nonmalignant breast conditions (20 sources) Mastodynia; Translations: [Bilateral cyst of breasts] Onset: 03-29-2022 07-24-2024 Episodic Other female genital disorders (20 sources) Noninflammatory disorder of uterus; Translations: [Other specified noninflammatory disorders of uterus] Onset: 08-08-2024 01-29-2025 Episodic Other gastrointestinal disorders (9 sources) Constipation, unspecified; Translations: [Constipation, unspecified] Onset: 01-10-2025 01-04-2025 Episodic Other non-traumatic joint disorders (20 sources) Derangement of right sacroiliac joint; Translations: [Joint derangement, unspecified] Onset: 07-19-2023 Resolved: 04-28-2024 04-28-2024 Episodic Other non-traumatic joint disorders (20 sources) Pain in right hip joint; Translations: [Pain in right hip] Onset: 10-01-2024 Resolved: 01-29-2025 10-01-2024 Episodic Other nutritional; endocrine; and metabolic disorders (9 sources) Abnormal weight loss; Translations: [Loss of weight] Onset: 01-15-2025 01-04-2025 Episodic Other screening for suspected conditions (not mental disorders or infectious disease) (20 sources) Radiology result abnormal; Translations: [Other nonspecific (abnormal) findings on radiological and other examinations of body structure] Onset: 01-29-2025 Resolved: 01-29-2025 01-29-2025 Chronic Other screening for suspected conditions (not mental disorders or infectious disease) (20 sources) Mammography abnormal; Translations: [Encounter for screening for malignant neoplasm of cervix] Onset: 03-16-2022 Episodic Other skin disorders (3 sources) Localized swelling, mass and lump, right upper limb; Translations: [Localized superficial swelling, mass, or lump] Onset: 01-17-2025 01-09-2025 Episodic Other upper respiratory infections (20 sources) Acute pharyngitis; Translations: [Acute pharyngitis, unspecified] Onset: 01-02-2024 01-29-2025 Episodic Residual codes; unclassified (4 sources) Asymptomatic menopausal state; Translations: [ASYMPTOMATIC MENOPAUSAL STATE] Onset: 03-24-2022 Episodic Residual codes; unclassified (20 sources) Family history of malignant neoplasm of pancreas; Translations: [Family history of malignant neoplasm of digestive organs] Onset: 07-19-2023 Resolved: 04-28-2024 04-28-2024 Episodic Residual codes; unclassified (20 sources) H/O: steroid therapy; Translations: [Personal history of systemic steroid therapy] Onset: 10-01-2024 Resolved: 01-29-2025 10-01-2024 Episodic Residual codes; unclassified (20 sources) Menopause present; Translations: [Asymptomatic menopausal state] Onset: 03-24-2022 Resolved: 01-29-2025 01-29-2025 Episodic Residual codes; unclassified (1 source) Genetic susceptibility to malignant neoplasm of ovary; Translations: [Ovarian cancer genetic susceptibility] Onset: 02-01-2025 Episodic Varicose veins of lower extremity (20 sources) Varicose veins of bilateral lower extremities with pain; Translations: [Varicose veins of lower extremity] Onset: 12-08-2022 Episodic Results Test Name Value Interpretation Reference Range Facility [place] 125on 06-19-2025 CANCER ANTIGEN 125 19.6 0.0 - 38.1 [facility] Comment on above: [facility] El ectrochemiluminescence Immunoassay (ECLIA) Values obtained with different assay methods or kits cannot be used interchangeably. Results cannot be interpreted as absolute evidence of the presence or absence of malignant disease. Performed at: [address] [id number] Asp Developer: Lj Solano PhD, Phone: [phone] [facility] ALL CBC WITH AUTO DIFFon BASOPHILS ABSOLUTE AUTO 0 [facility] Basophils/100 WBC (Bld) 0.8 % 0.2 - 2.0 % [facility] Eosinophils/100 WBC (Bld) 1.9 % 0.9 - 7.0 % [facility] Erythrocyte distribution width (RBC) [Ratio] 12.8 % 11.0 - 15.0 % [facility] Hematocrit (Bld) [Volume fraction] 32.9 % Low 36.0 - 48.0 % [facility] Hemoglobin (Bld) [Mass/Vol] 11 g/dL Low 12.0 - 16.0 g/dL [facility] IMMATURE GRANULOCYTES ABS AUTO 0.01 [facility] Immature granulocytes/100 WBC (Bld) 0.3 % 0.0 - 0.5 % [facility] Interpretation and review of laboratory results Abnormal [facility] LYMPHOCYTES ABSOLUTE AUTO 0.7 Low [facility] Lymphocytes/100 WBC (Bld) 19.1 % Low 20.5 - 60.0 % [facility] MCH (RBC) [Entitic mass] 34.3 pg High 26.7 - 34.0 pg [facility] MCHC (RBC) [Mass/Vol] 33.4 g/dL 29.9 - 35.2 g/dL [facility] MCV (RBC) [Entitic vol] 102.5 fL High 81.0 - 99.0 fL [facility] MONOCYTES ABSOLUTE AUTO 0.6 [facility] Monocytes/100 WBC (Bld) 15.9 % High 1.7 - 12.0 % [facility] NEUTROPHILS ABSOLUTE AUTO 2.3 [facility] Neutrophils/100 WBC (Bld) 62 % 43.0 - 75.0 % [facility] Platelet mean volume (Bld) [Entitic vol] 10.2 fL 9.5 - 13.5 fL [facility] TBH EO # 0.1 [facility] TBH PLT 78 Low [facility] TBH RBC 3.21 Low [facility] TBH WBC 3.8 Low [facility] CBC W Auto Differential pane l (Bld)on 06-18-2025 Basophils (Bld) [#/Vol] 0 10*3/uL 0.0 - 0.2 10*3/uL [facility] Basophils/100 WBC Manual cnt (Syn fld) 0.5 % . [facility] Eosinophils (Bld) [#/Vol] 0.1 10*3/uL 0.0 - 0.45 10*3/uL [facility] Eosinophils/100 WBC Manual cnt (Syn fld) 1.5 % . [facility] Erythrocyte distribution width (RBC) [Ratio] 13.9 % 11.9 - 15.3 % [facility] Hematocrit (Bld) [Volume fraction] 31.8 % Low 34.0 - 46.4 % [facility] Hemoglobin (Bld) [Mass/Vol] 10.9 g/dL Low 11.8 - 15.4 g/dL [facility] Interpretation and review of laboratory results Abnormal [facility] Lymphocytes (Bld) [#/Vol] 0.8 10*3/uL Low 1.00 - 4.8 10*3/uL [facility] Lymphocytes/100 WBC Manual cnt (Syn fld) 18.8 % . [facility] MCH (RBC) [Entitic mass] 34.4 pg High 24.7 - 34.3 pg [facility] MCHC (RBC) [Mass/Vol] 34.2 g/dL 32.0 - 35.0 g/dL [facility] MCV (RBC) [Entitic vol] 100.7 fL High 80 - 100 fL [facility] Monocytes (Bld) [#/Vol] 0.6 10*3/uL 0.0 - 0.8 10*3/uL [facility] Monocytes+Macrophages/ 100 WBC Manual cnt (Syn fld) 15.1 % . [facility] Neutrophils (Bld) [#/Vol] 2.7 10*3/uL 1.8 - 7.7 10*3/uL [facility] Neutrophils/100 WBC Manual cnt (Syn fld) 64.1 % . [facility] NRBC 0.1 /100{WBC} 0 - 0.5 /100{WBC} [facility] Platelet mean volume (Bld) [Entitic vol] 8.1 fL 6.3 - 10.7 fL [facility] Platelets (Bld) [#/Vol] 82 10*3/uL Low 150 - 450 10*3/uL [facility] RBC LM.HPF (Urine sed) [#/Area] 3.16 10*6/uL Low 3.60 - 5.00 10*6/uL [facility] WBC (Bld) [#/Vol] 4.2 10*3/uL 3.8 - 11.6 10*3/uL [facility] WBC LM.HPF (Urine sed) [#/Area] 4.2 [CFU]/mL 3.8 - 11.6 [CFU]/mL [facility] CNPNon 06-18-2025 CNPN Normal [facility] Cancer Antigen 125on 025 Cancer Antigen 125 19.6 Normal 0.0-38.1 [facility] Comment on above: Result Comment: [employer] Electrochemiluminescence Immunoassay (ECLIA) Values obtained with different assay methods or kits cannot be used interchangeably. Results cannot be interpreted as absolute evidence of the presence or absence of malignant disease. Performed at: [address] [id number] Asp Developer: Lj Solano PhD, Phone: [phone] PERFORMED BY: [place] [address] PATHOLOGIST BASE DRAW OPERATOR MARISEL MANRIQUE M.D. Performed By: #### T SH3, FE, TIBC, CMP, CBC #### [address] #### CELIAC #### [facility] , Complete Blood Count Auto Di ffon 06-18-2025 Basophils (Bld) [#/Vol] 0.0 10*3/uL Normal 0.0-0.2 [facility] Comment on above: Result Comment: PERF ORMED BY: [place] [address] PATHOLOGIST BASE DRAW OPERATOR MARISEL MANRIQUE M.D. Performed By: #### T SH3, FE, TIBC, CMP, CBC #### [address] #### CELIAC #### [facility] , Basophils/100 WBC (Bld) 0.5 % Normal . [facility] Comment on above: Performed By: #### T SH3, FE, TIBC, CMP, CBC #### [address] #### CELIAC #### [facility] , Eosinophils (Bld) [#/Vol] 0.1 10*3/uL Normal 0.0-0.45 [facility] Comment on above: Performed By: #### T SH3, FE, TIBC, CMP, CBC #### [place] [address] [place] #### CELIAC #### [facility] , Eosinophils/100 WBC (Bld) 1.5 % Normal . [facility] Comment on above: Performed By: #### T SH3, FE, TIBC, CMP, CBC #### [address] #### CELIAC #### [facility] , Erythrocyte distribution width (RBC) [Ratio] 13.9 % Normal 11.9-15.3 [facility] Comment on above: Performed By: #### T SH3, FE, TIBC, CMP, CBC #### [address] #### CELIAC #### [facility] , Hematocrit (Bld) [Volume fraction] 31.8 % Low 34.0-46.4 [facility] Comment on above: Performed By: #### T SH3, FE, TIBC, CMP, CBC #### [place] [address] [place] #### CELIAC #### [facility] , Hemoglobin (Bld) [Mass/Vol] 10.9 g/dL Low 11.8-15.4 [facility] Comment on above: Performed By: #### T SH3, FE, TIBC, CMP, CBC #### [place] [address] [place] #### CELIAC #### [facility] , Lymphocytes (Bld) [#/Vol] 0.8 10*3/uL Low 1.00-4.8 [facility] Comment on above: Performed By: #### T SH3, FE, TIBC, CMP, CBC #### [place] [address] [place] #### CELIAC #### [facility] , Lymphocytes/100 WBC (Bld) 18.8 % Normal . [facility] Comment on above: Performed By: #### T SH3, FE, TIBC, CMP, CBC #### [address] #### CELIAC #### [facility] , MCH (RBC) [Entitic mass] 34.4 pg High 24.7-34.3 [facility] Comment on above: Performed By: #### T SH3, FE, TIBC, CMP, CBC #### [address] #### CELIAC #### [facility] , MCV (RBC) [Entitic vol] 100.7 fL High 80-100 [facility] Comment on above: Performed By: #### T SH3, FE, TIBC, CMP, CBC #### [address] #### CELIAC #### [facility] , Mean Corpuscular HGB Conc 34.2 g/dL Normal 32.0-35.0 [facility] Comment on above: Performed By: #### T SH3, FE, TIBC, CMP, CBC #### [address] #### CELIAC #### [facility] , Monocytes (Bld) [#/Vol] 0.6 10*3/uL Normal 0.0-0.8 [facility] Comment on above: Performed By: #### T SH3, FE, TIBC, CMP, CBC #### [place] [address] [place] #### CELIAC #### [facility] , Monocytes/100 WBC (Bld) 15.1 % Normal . [facility] Comment on above: Performed By: #### T SH3, FE, TIBC, CMP, CBC #### [place] [address] [place] #### CELIAC #### [facility] , Neutrophils (Bld) [#/Vol] 2.7 10*3/uL Normal 1.8-7.7 [facility] Comment on above: Performed By: #### T SH3, FE, TIBC, CMP, CBC #### [place] [address] [place] #### CELIAC #### [facility] , Neutrophils/100 WBC (Bld) 64.1 % Normal . [facility] Comment on above: Performed By: #### T SH3, FE, TIBC, CMP, CBC #### [place] [address] [place] #### CELIAC #### [facility] , NRBC% 0.1 /100{WBC} Normal 0-0.5 [facility] Comment on above: Performed By: #### T SH3, FE, TIBC, CMP, CBC #### [place] [address] [place] #### CELIAC #### [facility] , Platelet mean volume (Bld) [Entitic vol] 8.1 fL Normal 6.3-10.7 [facility] Comment on above: Performed By: #### T SH3, FE, TIBC, CMP, CBC #### [place] [address] [place] #### CELIAC #### [facility] , Platelets (Bld) [#/Vol] 82 10*3/uL Low 150-450 [facility] Comment on above: Performed By: #### T SH3, FE, TIBC, CMP, CBC #### [place] [address] [place] #### CELIAC #### [facility] , RBC (Bld) [#/Vol] 3.16 10*6/uL Low 3.60-5.00 [facility] Comment on above: Performed By: #### T SH3, FE, TIBC, CMP, CBC #### [address] #### CELIAC #### [facility] , WBC (Bld) [#/Vol] 4.2 10*3/uL Normal 3.8-11.6 [facility] Comment on above: Performed By: #### T SH3, FE, TIBC, CMP, CBC #### [address] #### CELIAC #### [facility] , White Blood Count 4.2 [CFU]/mL Normal 3.8-11.6 [facility] Comment on above: Performed By: #### T SH3, FE, TIBC, CMP, CBC #### [address] #### CELIAC #### [facility] , Comprehensive Metabolic Pane alex 06-18-2025 Albumin [Mass/Vol] 4.4 g/dL Normal 3.5-5.7 [facility] Comment on above: Performed By: #### T SH3, FE, TIBC, CMP, CBC #### [place] [address] [place] #### CELIAC #### [facility] , Albumin/Globulin [Mass ratio] 1.4 {ratio} Normal [facility] Comment on above: Performed By: #### T SH3, FE, TIBC, CMP, CBC #### [address] #### CELIAC #### [facility] , ALP [Catalytic activity/Vol] 51 U/L Normal 34-104 [facility] Comment on above: Performed By: #### T SH3, FE, TIBC, CMP, CBC #### [facility] [address] [place] [address] [place] #### CELIAC #### [facility] , ALT [Catalytic activity/Vol] 11 U/L Normal 7-52 [facility] Comment on above: Performed By: #### T SH3, FE, TIBC, CMP, CBC #### [facility] [address] [place] [address] [place] #### CELIAC #### [facility] , Anion gap [Moles/Vol] 10.7 mmol/L Normal 6.0-15.0 e [facility] Comment on above: Performed By: #### T SH3, FE, TIBC, CMP, CBC #### [address] #### CELIAC #### [facility] , AST [Catalytic activity/Vol] 16 U/L Normal 13-39 [facility] Comment on above: Performed By: #### T SH3, FE, TIBC, CMP, CBC #### [place] [address] [place] #### CELIAC #### [facility] , Bilirubin [Mass/Vol] 0.4 mg/dL Normal 0.3-1.0 [facility] Comment on above: Performed By: #### T SH3, FE, TIBC, CMP, CBC #### [facility] [address] [place] [address] [place] #### CELIAC #### [facility] , Calcium [Mass/Vol] 9.3 mg/dL Normal 8.6-10.3 [facility] Comment on above: Performed By: #### T SH3, FE, TIBC, CMP, CBC #### [facility] [address] [place] [address] [place] #### CELIAC #### [facility] , Chloride [Moles/Vol] 101 mmol/L Normal 98-107 [facility] Comment on above: Performed By: #### T SH3, FE, TIBC, CMP, CBC #### [facility] [address] [place] [address] [place] #### CELIAC #### [facility] , CO2 [Moles/Vol] 28.6 mmol/L Normal 21.0-31.0 [facility] Comment on above: Performed By: #### T SH3, FE, TIBC, CMP, CBC #### [place] [address] [place] #### CELIAC #### [facility] , Creatinine [Mass/Vol] 0.71 mg/dL Normal 0.60-1.20 [facility] Comment on above: Performed By: #### T SH3, FE, TIBC, CMP, CBC #### [address] #### CELIAC #### [facility] , Creatinine Clr Calc Pharmacy 50.94 Normal [facility] Comment on above: Performed By: #### T SH3, FE, TIBC, CMP, CBC #### [place] [address] [place] #### CELIAC #### [facility] , GFR/1.73 sq M.predicted MDRD (S/P/Bld) [Vol rate/Area] mL/min/{1.73_m2} Normal [facility] Comment on above: Performed By: #### T SH3, FE, TIBC, CMP, CBC #### [place] [address] [place] #### CELIAC #### [facility] , Globulin (S) [Mass/Vol] 3.2 g/dL Normal [facility] Comment on above: Performed By: #### T SH3, FE, TIBC, CMP, CBC #### [place] [address] [place] #### CELIAC #### [facility] , Glucose [Mass/Vol] 102 mg/dL High 70-100 [facility] Comment on above: Result Comment: [facility] Glucose Reference Range is dependent on time and content of last meal. Glucose of more than 200 mg/dL in a nonstressed, ambulatory subject supports the diagnosis of Diabetes Mellitus. ADA recommended reference range Performed By: #### T SH3, FE, TIBC, CMP, CBC #### [place] [address] [place] #### CELIAC #### [facility] , Potassium [Moles/Vol] 4.3 mmol/L Normal 3.5-5.1 [facility] Comment on above: Performed By: #### T SH3, FE, TIBC, CMP, CBC #### [address] #### CELIAC #### [facility] , Protein [Mass/Vol] 7.6 g/dL Normal 6.4-8.9 [facility] Comment on above: Performed By: #### T SH3, FE, TIBC, CMP, CBC #### [place] [address] [place] #### CELIAC #### [facility] , Sodium [Moles/Vol] 136 mmol/L Normal 136-145 [facility] Comment on above: Performed By: #### T SH3, FE, TIBC, CMP, CBC #### [place] [address] [place] #### CELIAC #### [facility] , Urea nitrogen [Mass/Vol] 15 mg/dL Normal 7-25 [facility] Comment on above: Performed By: #### T SH3, FE, TIBC, CMP, CBC #### [place] [address] [place] #### CELIAC #### [facility] , Ferritinon 06-18-2025 Ferritin [Mass/Vol] 115.3 ng/mL Normal 11.0-306.8 [facility] Comment on above: Performed By: #### T SH3, FE, TIBC, CMP, CBC #### [place] [address] [place] #### CELIAC #### [facility] , Iron and TIBC Profileon 05-22 % Iron Saturation 12.5 % Low 20-50 [facility] Comment on above: Performed By: #### T SH3, FE, TIBC, CMP, CBC #### [facility] [address] [place] [address] [place] #### CELIAC #### [facility] , Iron [Mass/Vol] 44 ug/dL Low 50-212 [facility] Comment on above: Performed By: #### T SH3, FE, TIBC, CMP, CBC #### [address] #### CELIAC #### [facility] , Total Iron Binding Capacity 351 ug/dL Normal 255-450 [facility] Comment on above: Performed By: #### T SH3, FE, TIBC, CMP, CBC #### [facility] [address] [place] [address] [place] #### CELIAC #### [facility] , Transferrin [Mass/Vol] 251 mg/dL Normal 203-362 [facility] Comment on above: Performed By: #### T SH3, FE, TIBC, CMP, CBC #### [place] [address] [place] #### CELIAC #### [facility] , Vit. B12/Folate Profileon Cobalamin (Vitamin B12) [Mass/Vol] 561 pg/mL Normal 180-914 [facility] Comment on above: Performed By: #### T SH3, FE, TIBC, CMP, CBC #### [facility] [address] [place] [address] [place] #### CELIAC #### [facility] , Folate 41.0 ng/mL Normal >5.9 [facility] Comment on above: Result Comment: Makayla te reference range: >5.9 ng/ml The WHO technical consultation on folate and vitamin b12 deficiencies has determined that folate concentrations less than 4 ng/ml are considered deficient. PERFORMED BY: [place] [address] PATHOLOGIST BASE DRAW OPERATOR MARISEL MANRIQUE M.D. Performed By: #### T SH3, FE, TIBC, CMP, CBC #### [address] #### CELIAC #### [facility] , Ambulatory Visit Summaryon 0 06-04-2025 Ambulatory Visit Summary Ambulatory Visit Summary MIRIAN CORRALES :1955 Visit Date:06/04/2025 Ambulatory Visit Instructions Your Diagnosis Hydronephrosis Primary malignant neoplasm of ovary Your Care Team Attending Physician - Carlin SOILS MD Primary Care Physician - CONNER STANLEY [...] placement Where: [address] [place] [address] [place] [address] Allergies No Known Medication Allergies Problems Ongoing [...] including vitamins, herbs, eye drops, creams, and wuno-tfb-pighkss medicines. ??? Any problems you or family [...] care provider tells you to. ??? Taking sufu-qpc-scpufba medicines, vitamins, herbs, and supplements. When to [...] ? All liquids are okay except energy drink (more content not included)... Normal [facility] Ambulatory Visit Summary Ambulatory Visit Summary MIRIAN CORRALES :1955 Visit [...] cysto, R stent placement Where: [address] [facility] [place] [address] [place] [address] Allergies No Known Medication Allergies Problems Ongoing [...] including vitamins, herbs, eye drops, creams, and oolg-xzf-zyuvwcd medicines. ??? Any problems you or family [...] care provider tells you to. ??? Taking sdki-kob-bnheoxf medicines, vitamins, herbs, and supplements. When to [...] ? All liquids are okay except energy drink (more content not included)... Normal [facility] Reminderson 06-04-2025 Reminders Reminders From: Ashley Cheatham To: EU - Recalls Solis; Sent: 06/04/2025 11:26:17 EDT Show up: 08/20/2025 11:26:00 EST Subject: rt stent change Due Date/Time: 09/17/2025 11:26:00 EST Reminder/Recall Patient due in Oct 2025 for 4 month cysto, rt stent change (mac) Normal [facility] Urology Office/Clinic Noteon 06-04-2025 Urology Office/Clinic Note Urology Office/Clinic Note Chief Complaint new pt [...] 1. Hydronephrosis (N13.30: Unspecified hydronephrosis) PET 04/18/25 [facility] [place] - R hydro similar to prior exam [...] [facility]. Undergoing chemo since 02/2025. Following with [facility]. Follow-up With When Contact Information IRMA BRONSON, Carlin [place], URL [address] [place] [address] [place] [address] Additional Instructions: sched cysto, R stent placement Patient Education Ureteral Stent Implantation Hydronephrosis I, Karla Zaman, personally scribed for Dr. Solis on 06/04/2025 11:08:16. . Documentation recorded by the scribe, Karla Zaman, accurately reflects the services(s) I performed and [...] Never Smokeless Tobacco Use:., 06/04/2025 Family History Hypertensio (more content not included)... Normal [facility] Comment on above: Result Comment: Elec tronically Signed By: Carlin SOLIS MD\.br\Date and Time Signed: 06/04/25 11:14 EDT\.br\Electronically Co-Signed By: Karla Zaman\.br\Date and Time Co-Signed: 06/04/25 11:10 EDT CNOVSPon 05-29-2025 CNOVSP Normal [facility] Alanine aminotransferase [En zymatic activity/volume] in Serum or PlasmaOrdered By: Clarence Vines on 05-28-2025 ALT [Catalytic activity/Vol] 12 U/L Normal 7-52 [facility] Comment on above: Performed By: #### T SH3, FE, TIBC, CMP, CBC #### [place] [address] [place] #### CELIAC #### [facility] , Albumin [Mass/volume] in Ser um or Plasma by Bromocresol green (BCG) dye binding methoOrdered By: Clarence Vines on 05-28-2025 Albumin BCG dye [Mass/Vol] 4.3 g/dL 3.5-5.7 [facility] Alkaline phosphatase [Enzyma tic activity/volume] in Serum or PlasmaOrdered By: Clarence Vines on 05-28-2025 ALP [Catalytic activity/Vol] 51 U/L Normal 34-104 [facility] Comment on above: Performed By: #### T SH3, FE, TIBC, CMP, CBC #### [facility] [address] [place] [address] [place] #### CELIAC #### [facility] , Aspartate aminotransferase [ Enzymatic activity/volume] in Serum or PlasmaOrdered By: Clarence Vines on 05-28-2025 AST [Catalytic activity/Vol] 20 U/L Normal 13-39 [facility] Comment on above: Performed By: #### T SH3, FE, TIBC, CMP, CBC #### [facility] [address] [place] [address] [place] #### CELIAC #### [facility] , Basophils [#/volume] in Bloo d by Automated countOrdered By: Clarence Vines on 05-28-2025 Basophils (Bld) [#/Vol] 0.0 10*3/uL Normal 0.0-0.2 [facility] Comment on above: Result Comment: PERF ORMED BY: [place] [address] PATHOLOGIST BASE DRAW OPERATOR MARISEL MANRIQUE M.D. Performed By: #### T SH3, FE, TIBC, CMP, CBC #### [address] #### CELIAC #### [facility] , Basophils/100 leukocytes in Blood by Automated countOrdered By: Clarence Vines on 05-28-2025 Basophils/100 WBC (Bld) 1.2 % Normal . [facility] Comment on above: Performed By: #### T SH3, FE, TIBC, CMP, CBC #### [address] #### CELIAC #### [facility] , Bilirubin.total [Mass/volume ] in Serum or PlasmaOrdered By: Clarence Vines on 05-28-2025 Bilirubin [Mass/Vol] 0.4 mg/dL Normal 0.3-1.0 [facility] Comment on above: Performed By: #### T SH3, FE, TIBC, CMP, CBC #### [facility] [address] [place] [address] [place] #### CELIAC #### [facility] , CBC W Auto Differential pane l (Bld)on 05-28-2025 Basophils (Bld) [#/Vol] 0 10*3/uL 0.0 - 0.2 10*3/uL [facility] Basophils/100 WBC Manual cnt (Syn fld) 1.2 % . [facility] Eosinophils (Bld) [#/Vol] 0.4 10*3/uL 0.0 - 0.45 10*3/uL [facility] Eosinophils/100 WBC Manual cnt (Syn fld) 12.3 % . [facility] Erythrocyte distribution width (RBC) [Ratio] 17.4 % High 11.9 - 15.3 % [facility] Hematocrit (Bld) [Volume fraction] 30.9 % Low 34.0 - 46.4 % [facility] Hemoglobin (Bld) [Mass/Vol] 10.4 g/dL Low 11.8 - 15.4 g/dL [facility] Interpretation and review of laboratory results Abnormal [facility] Lymphocytes (Bld) [#/Vol] 0.8 10*3/uL Low 1.00 - 4.8 10*3/uL [facility] Lymphocytes/100 WBC Manual cnt (Syn fld) 21.5 % . [facility] MCH (RBC) [Entitic mass] 33.8 pg 24.7 - 34.3 pg [facility] MCHC (RBC) [Mass/Vol] 33.9 g/dL 32.0 - 35.0 g/dL [facility] MCV (RBC) [Entitic vol] 100 fL 80 - 100 fL [facility] Monocytes (Bld) [#/Vol] 0.5 10*3/uL 0.0 - 0.8 10*3/uL [facility] Monocytes+Macrophages/ 100 WBC Manual cnt (Syn fld) 14.7 % . [facility] Neutrophils (Bld) [#/Vol] 1.8 10*3/uL 1.8 - 7.7 10*3/uL [facility] Neutrophils/100 WBC Manual cnt (Syn fld) 50.3 % . [facility] NRBC 0.1 /100{WBC} 0 - 0.5 /100{WBC} [facility] Platelet mean volume (Bld) [Entitic vol] 7.7 fL 6.3 - 10.7 fL [facility] Platelets (Bld) [#/Vol] 278 10*3/uL 150 - 450 10*3/uL [facility] RBC LM.HPF (Urine sed) [#/Area] 3.09 10*6/uL Low 3.60 - 5.00 10*6/uL [facility] WBC (Bld) [#/Vol] 3.6 10*3/uL Low 3.8 - 11.6 10*3/uL [facility] WBC LM.HPF (Urine sed) [#/Area] 3.6 [CFU]/mL Low 3.8 - 11.6 [CFU]/mL [facility] Calcium [Mass/volume] in Ser um or PlasmaOrdered By: Clarence Vines on 05-28-2025 Calcium [Mass/Vol] 9.7 mg/dL Normal 8.6-10.3 [facility] Comment on above: Performed By: #### T SH3, FE, TIBC, CMP, CBC #### [place] [address] [place] #### CELIAC #### [facility] , Carbon dioxide, total [Moles /volume] in Serum or PlasmaOrdered By: Clarence Vines on 05-28-2025 CO2 [Moles/Vol] 30.8 mmol/L Normal 21.0-31.0 [facility] Comment on above: Performed By: #### T SH3, FE, TIBC, CMP, CBC #### [facility] [address] [place] [address] [place] #### CELIAC #### [facility] , Chloride [Moles/volume] in S yin or PlasmaOrdered By: Clarence Vines on 05-28-2025 Chloride [Moles/Vol] 104 mmol/L Normal 98-107 [facility] Comment on above: Performed By: #### T SH3, FE, TIBC, CMP, CBC #### [place] [address] [place] #### CELIAC #### [facility] , Complete Blood Count Auto Di ffon 05-28-2025 Mean Corpuscular HGB Conc 33.9 g/dL Normal 32.0-35.0 [facility] Comment on above: Performed By: #### T SH3, FE, TIBC, CMP, CBC #### [facility] [address] [place] [address] [place] #### CELIAC #### [facility] , NRBC% 0.1 /100{WBC} Normal 0-0.5 [facility] Comment on above: Performed By: #### T SH3, FE, TIBC, CMP, CBC #### [place] [address] [place] #### CELIAC #### [facility] , White Blood Count 3.6 [CFU]/mL Low 3.8-11.6 [facility] Comment on above: Performed By: #### T SH3, FE, TIBC, CMP, CBC #### [place] [address] [place] #### CELIAC #### [facility] , Comprehensive Metabolic Pane alex 05-28-2025 Albumin [Mass/Vol] 4.3 g/dL Normal 3.5-5.7 [facility] Comment on above: Performed By: #### T SH3, FE, TIBC, CMP, CBC #### [address] #### CELIAC #### [facility] , Creatinine Clr Calc Pharmacy 51.80 Normal [facility] Comment on above: Result Comment: PERF ORMED BY: [place] [address] PATHOLOGIST BASE DRAW OPERATOR MARISEL MANRIQUE M.D. Performed By: #### T SH3, FE, TIBC, CMP, CBC #### [address] #### CELIAC #### [facility] , GFR/1.73 sq M.predicted MDRD (S/P/Bld) [Vol rate/Area] mL/min/{1.73_m2} Normal [facility] Comment on above: Performed By: #### T SH3, FE, TIBC, CMP, CBC #### [place] [address] [place] #### CELIAC #### [facility] , Comprehensive metabolic pane alex 05-28-2025 Albumin [Mass/Vol] 4.3 g/dL 3.5 - 5.7 g/dL [facility] Albumin/Globulin [Mass ratio] 1.4 {ratio} [facility] ALP [Catalytic activity/Vol] 51 U/L 34 - 104 U/L [facility] ALT [Catalytic activity/Vol] 12 U/L 7 - 52 U/L [facility] Anion gap [Moles/Vol] 7.7 mmol/L 6.0 - 15.0 [facility] AST [Catalytic activity/Vol] 20 U/L 13 - 39 U/L [facility] Bilirubin [Mass/Vol] 0.4 mg/dL 0.3 - 1 .0 mg/dL [facility] Calcium [Mass/Vol] 9.7 mg/dL 8.6 - 10. 3 mg/dL [facility] Chloride [Moles/Vol] 104 mmol/L 98 - 10 7 mmol/L [facility] CO2 [Moles/Vol] 30.8 mmol/L 21.0 - 31.0 mmol/L [facility] Creatinine (U) [Mass/Vol] 0.76 mg/dL 0.60 - 1.20 mg/dL [facility] CREATININE CLR CALC PHARMACY 51.8 [facility] ESTIMATED GFR [facility] Globulin (S) [Mass/Vol] 3 g/dL [facility] Glucose [Mass/Vol] 89 mg/dL 70 - 100 mg/dL [facility] Comment on above: Random Glucose Refer ence Range is dependent on time and content of last meal. Glucose of more than 200 mg/dL in a nonstressed, ambulatory subject supports the diagnosis of Diabetes Mellitus. ADA recommended reference range Potassium [Moles/Vol] 4.5 mmol/L 3.5 - 5.1 mmol/L [facility] Protein [Mass/Vol] 7.3 g/dL 6.4 - 8.9 g/dL [facility] Sodium [Moles/Vol] 138 mmol/L 136 - 145 mmol/L [facility] Urea nitrogen [Mass/Vol] 14 mg/dL 7 - 25 mg/dL [facility] Creatinine [Mass/volume] in Serum or PlasmaOrdered By: Clarence Vines on 05-28-2025 Creatinine [Mass/Vol] 0.76 mg/dL Normal 0.60-1.20 [facility] Comment on above: Performed By: #### T SH3, FE, TIBC, CMP, CBC #### [address] #### CELIAC #### [facility] , Eosinophils [#/volume] in Bl ood by Automated countOrdered By: Clarence Vines on 05-28-2025 Eosinophils (Bld) [#/Vol] 0.4 10*3/uL Normal 0.0-0.45 [facility] Comment on above: Performed By: #### T SH3, FE, TIBC, CMP, CBC #### [address] #### CELIAC #### [facility] , Eosinophils/100 leukocytes i n Blood by Automated countOrdered By: Clarence Vines on 05-28-2025 Eosinophils/100 WBC (Bld) 12.3 % Normal . [facility] Comment on above: Performed By: #### T SH3, FE, TIBC, CMP, CBC #### [address] #### CELIAC #### [facility] , Erythrocyte distribution wid th [Ratio] by Automated countOrdered By: Clarence Vines on 05-28-2025 Erythrocyte distribution width (RBC) [Ratio] 17.4 % High 11.9-15.3 [facility] Comment on above: Performed By: #### T SH3, FE, TIBC, CMP, CBC #### [place] [address] [place] #### CELIAC #### [facility] , Erythrocytes [#/volume] in B lood by Automated countOrdered By: Clarence Vines on 05-28-2025 RBC (Bld) [#/Vol] 3.09 10*6/uL Low 3.60-5.00 [facility] Comment on above: Performed By: #### T SH3, FE, TIBC, CMP, CBC #### [place] [address] [place] #### CELIAC #### [facility] , Glomerular filtration rate [ Volume Rate/Area] in Serum, Plasma or Blood by CreatinineOrdered By: Clarence Vines on 05-28-2025 Glomerular filtration rate [Volume Rate/Area] in Serum, Plasma or Blood by Creatinine > 60.0 mL/Min [facility] Glucose [Mass/volume] in Ser um or PlasmaOrdered By: Clarence Vines on 05-28-2025 Glucose [Mass/Vol] 89 mg/dL Normal 70-100 [facility] Comment on above: ADA recommended refe rence rangeRandom Glucose Reference Range is dependent on time and content of last meal. Glucose of more than 200 mg/dL in a nonstressed, ambulatory subject supports the diagnosis of Diabetes Mellitus. Result Comment: Zachary om Glucose Reference Range is dependent on time and content of last meal. Glucose of more than 200 mg/dL in a nonstressed, ambulatory subject supports the diagnosis of Diabetes Mellitus. ADA recommended reference range Performed By: #### T SH3, FE, TIBC, CMP, CBC #### [place] [address] [place] #### CELIAC #### [facility] , Hematocrit [Volume Fraction] of Blood by Automated countOrdered By: Clarence Vines on 05-28-2025 Hematocrit (Bld) [Volume fraction] 30.9 % Low 34.0-46.4 [facility] Comment on above: Performed By: #### T SH3, FE, TIBC, CMP, CBC #### [place] [address] [place] #### CELIAC #### [facility] , Hemoglobin [Mass/volume] in BloodOrdered By: Clarence Vines on 05-28-2025 Hemoglobin (Bld) [Mass/Vol] 10.4 g/dL Low 11.8-15.4 [facility] Comment on above: Performed By: #### T SH3, FE, TIBC, CMP, CBC #### [place] [address] [place] #### CELIAC #### [facility] , Leukocytes [#/volume] correc cal for nucleated erythrocytes in Blood by Automated counOrdered By: Clarence Vines on 05-28-2025 WBC corrected for nucl RBC Auto (Bld) [#/Vol] 3.6 10*3/uL Low 3.8-11.6 [facility] Leukocytes [#/volume] in Blo od by Automated countOrdered By: Clarence Vines on 05-28-2025 WBC (Bld) [#/Vol] 3.6 10*3/uL Low 3.8-11.6 [facility] Comment on above: Performed By: #### T SH3, FE, TIBC, CMP, CBC #### [facility] [address] [place] [address] [place] #### CELIAC #### [facility] , Lymphocytes [#/volume] in Bl ood by Automated countOrdered By: Clarence Vines on 05-28-2025 Lymphocytes (Bld) [#/Vol] 0.8 10*3/uL Low 1.00-4.8 [facility] Comment on above: Performed By: #### T SH3, FE, TIBC, CMP, CBC #### [facility] [address] [place] [address] [place] #### CELIAC #### [facility] , Lymphocytes/100 leukocytes i n Blood by Automated countOrdered By: Clarence Vines on 05-28-2025 Lymphocytes/100 WBC (Bld) 21.5 % Normal . [facility] Comment on above: Performed By: #### T SH3, FE, TIBC, CMP, CBC #### [facility] [address] [place] [address] [place] #### CELIAC #### [facility] , MCH [Entitic mass] by Automa cal countOrdered By: Clarence Vines on 05-28-2025 MCH (RBC) [Entitic mass] 33.8 pg Normal 24.7-34.3 [facility] Comment on above: Performed By: #### T SH3, FE, TIBC, CMP, CBC #### [facility] [address] [place] [address] #### CELIAC #### [facility] , MCHC Auto (RBC) [Mass/Vol]Or dered By: Clarence Vines on 05-28-2025 MCHC (RBC) [Mass/Vol] 33.9 g/dL 32.0-35.0 [facility] MCV [Entitic volume] by Auto mated countOrdered By: Clarence Vines on 05-28-2025 MCV (RBC) [Entitic vol] 100.0 fL Normal 80-100 [facility] Comment on above: Performed By: #### T SH3, FE, TIBC, CMP, CBC #### [facility] [address] [place] [address] #### CELIAC #### [facility] , Monocytes [#/volume] in Bloo d by Automated countOrdered By: Clarence Vines on 05-28-2025 Monocytes (Bld) [#/Vol] 0.5 10*3/uL Normal 0.0-0.8 [facility] Comment on above: Performed By: #### T SH3, FE, TIBC, CMP, CBC #### [facility] [address] [place] [address] #### CELIAC #### [facility] , Monocytes/100 leukocytes in Blood by Automated countOrdered By: Clarence Vines on 05-28-2025 Monocytes/100 WBC (Bld) 14.7 % Normal . [facility] Comment on above: Performed By: #### T SH3, FE, TIBC, CMP, CBC #### [facility] [address] [place] [address] [place] #### CELIAC #### [facility] , Neutrophils [#/volume] in Bl ood by Automated countOrdered By: Clarence Vines on 05-28-2025 Neutrophils (Bld) [#/Vol] 1.8 10*3/uL Normal 1.8-7.7 [facility] Comment on above: Performed By: #### T SH3, FE, TIBC, CMP, CBC #### [facility] [address] [place] [address] [place] #### CELIAC #### [facility] , Neutrophils/100 leukocytes i n Blood by Automated countOrdered By: Clarence Vines on 05-28-2025 Neutrophils/100 WBC (Bld) 50.3 % Normal . [facility] Comment on above: Performed By: #### T SH3, FE, TIBC, CMP, CBC #### [facility] [address] [place] [address] [place] #### CELIAC #### [facility] , No Panel InformationOrdered By: Clarence Vines on 05-28-2025 Pharmacy Creatinine Clearance (Chem 51.80 [facility] Nucleated erythrocytes [Pres ence] in Blood by Automated countOrdered By: Clarence Vines on 05-28-2025 Nucleated RBC Auto Ql (Bld) 0.1 /100{WBC} 0-0.5 [facility] Platelet mean volume [Entiti c volume] in Blood by Automated countOrdered By: Clarence Vines on 05-28-2025 Platelet mean volume (Bld) [Entitic vol] 7.7 fL Normal 6.3-10.7 [facility] Comment on above: Performed By: #### T SH3, FE, TIBC, CMP, CBC #### [facility] [address] [place] [address] [place] #### CELIAC #### [facility] , Platelets [#/volume] in Bloo d by Automated countOrdered By: Clarence Vines on 05-28-2025 Platelets (Bld) [#/Vol] 278 10*3/uL Normal 150-450 [facility] Comment on above: Performed By: #### T SH3, FE, TIBC, CMP, CBC #### [facility] [address] [place] [address] [place] #### CELIAC #### [facility] , Potassium [Moles/volume] in Serum or PlasmaOrdered By: Clarence Vines on 05-28-2025 Potassium [Moles/Vol] 4.5 mmol/L Normal 3.5-5.1 [facility] Comment on above: Performed By: #### T SH3, FE, TIBC, CMP, CBC #### [address] #### CELIAC #### [facility] , Protein [Mass/volume] in Ser um or PlasmaOrdered By: Clarence Vines on 05-28-2025 Protein [Mass/Vol] 7.3 g/dL Normal 6.4-8.9 [facility] Comment on above: Performed By: #### T SH3, FE, TIBC, CMP, CBC #### [address] #### CELIAC #### [facility] , Serum globulin measurement b y calculation (mass/volume)Ordered By: Clarence Vines on 05-28-2025 Globulin (S) [Mass/Vol] 3.0 g/dL [facility] Comment on above: Performed By: #### T SH3, FE, TIBC, CMP, CBC #### [facility] [address] [place] [address] #### CELIAC #### [facility] , Serum or plasma albumin/glob ulin mass ratioOrdered By: Clarence Vines on 05-28-2025 Albumin/Globulin [Mass ratio] 1.4 {ratio} [facility] Comment on above: Performed By: #### T SH3, FE, TIBC, CMP, CBC #### [facility] [address] [place] [address] [place] #### CELIAC #### [facility] , Serum or plasma anion gap de terminationOrdered By: Clarence Vines on 05-28-2025 Anion gap [Moles/Vol] 7.7 mmol/L Normal 6.0-15.0 [facility] Comment on above: Performed By: #### T SH3, FE, TIBC, CMP, CBC #### [facility] [address] [place] [address] [place] #### CELIAC #### [facility] , Sodium [Moles/volume] in Ser um or PlasmaOrdered By: Clarence Mohinder on 05-28-2025 Sodium [Moles/Vol] 138 mmol/L Normal 136-145 [facility] Comment on above: Performed By: #### T SH3, FE, TIBC, CMP, CBC #### [facility] [address] [place] [address] [place] #### CELIAC #### [facility] , Urea nitrogen [Mass/volume] in Serum or PlasmaOrdered By: Clarence Vines on 05-28-2025 Urea nitrogen [Mass/Vol] 14 mg/dL Normal 7-25 [facility] Comment on above: Performed By: #### T SH3, FE, TIBC, CMP, CBC #### [facility] [address] [place] [address] [place] #### CELIAC #### [facility] , TISS PATH BX REPORTon 2024 AP DISCLAIMER [facility] Comment on above: Laboratory Developed Test (LDT) Disclaimer: Performance characteristics of immunohistochemical, immunofluorescent, and chromogenic in-situ hybridization tests have been determined by the performing laboratory within [facility] Pathology and Laboratory Medicine Department ([facility], [facility], [facility], [facility], [facility], [facility], or [facility]) in a manner consistent with CLIA requirements. One or more of these tests may not have been cleared or approved by the FDA. RT-PLM is regulated under CLIA as qualified to perform high-complexity testing. These tests are used for clinical purposes. These should not be regarded as investigational or for research. Positive and negative controls stain appropriately. 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 Fallopian tube an d ovary, left, salpingo-oophorectomy - Benign ovaries and fallopian tube B. Fallopian tube and ovary, right, salpingo-oophorectomy - Rare residual tumor cells in ovary with therapy effect - Benign fallopian tube C. Soft tissue, paraovarian, right, excision - Hyalinized and calcified nodule, negative for carcinoma at 1137 EDT [facility] FINAL PERFORMING LAB [facility] Comment on above: Diagnostic interpret ation performed at: [facility], [address] [place] [address], [facility] [place] [address] CLIA# [id number] Tagman: Rishi Lackey MD F GROSS DESCRIPTION [facility] Comment on above: A. Fallopian Tube An d Ovary Left Received fresh labeled fallopian tube [...] glistening. Sectioning reveals an intact, unremarkable lumen. International Marketing Manager sections are submitted as follows: A1: Left ovary A2: Left fallopian tube Additional sections are submitted as follows: A3. Remaining part of left fallopian tube fimbria, entirely submitted A4-A5. The remaining of left fallopian tube cross-sections, entirely submitted. Gross examination performed at [facility], [address] [place] [address] AM 05/15/25 7:07 PM B. Fallopian Tube [...] glistening. Sectioning reveals an intact, unremarkable lumen. International Marketing Manager sections are submitted as follows: B1: Right ovary with cystic cavity B2: Right fallopian tube Additional sections are submitted as follows: B3-B4. Remaining of right fallopian tube cross-sections, entirely submitted. Gross examination performed at [facility], [address] [place] [address] AM 05/15/25 6:59 PM C. Soft Tissue (Not otherwise specified) Received fresh labeled nodule adjacent to right ovary is a jimenez-pink firm and well-circumscribed nodule with a smooth external surface. Sectioning reveals an extensively calcified cut surface. The nodule is entirely submitted in one cassette, following decalcification in formic acid. [facility] 05/09/25 3:55 PM Gross examination performed at [facility], [address] [place] [address] Specimen Type: TISSU E SPECIMEN Ordering Facility: [facility] Address: [address] [place] [address] Original Ordering Provider: JUAN WHALEN [facility] ANES POSTPROC EVALon 025 ANES POSTPROC EVAL Normal [facility] ANES PRE-OPon 05-09-2025 ANES PRE-OP Normal [facility] BRIEF OP NOTon 05-09-2025 BRIEF OP NOT Normal [facility] OPERATIVE NOon 05-09-2025 OPERATIVE NO Normal [facility] Pathology biopsy report Parrish (Tiss)on 05-09-2025 AP DISCLAIMER Normal [facility] Comment on above: Order Comment: Speci men Type: TISSUE SPECIMENOrdering Facility: [facility] Address: [address] [place], [place] [address] Result Comment: Martha vincent Developed Test (LDT) Disclaimer:Performance characteristics of immunohistochemical, immunofluorescent, and chromogenic in-situ hybridization tests have been determined by the performing laboratory within [facility]'s Conner Garcia Pathology and Laboratory Medicine Department ([facility], [facility], [facility], [facility], [facility], [facility], or [facility]) in a manner consistent with CLIA requirements. One or more of these tests may not have been cleared or approved by the FDA. [employer] is regulated under CLIA as qualified to perform high-complexity testing. These tests are used for clinical purposes. These should not be regarded as investigational or for research. Positive and negative controls stain appropriately. Performed By: #### 6 6121-5 ####[facility] LABIA [id number] [place] [address] [place] CASE REPORT Normal [facility] Comment on above: Order Comment: Speci men Type: TISSUE SPECIMENOrdering Facility: [facility] Address: [address] [place] [address] Result Comment: [facility] Pathology Report Case: [id number] Provider: Juan Whalen MD Collected: 05/09/2025 01:19 PMOrdering Location: Admitting Received: 05/09/2025 02:26 PMPathologist: Conner Blair MDSpecimens: A) - Fallopian Tube And Ovary Left B) - Fallopian Tube And Ovary Right C) - Soft Tissue (Not otherwise specified), nodule adjacent to right ovary Performed By: #### 6 6121-5 ####[facility] LABIA [id number] [place] [address] [place] CLINICAL HISTORY Normal [facility] Comment on above: Order Comment: Speci men Type: TISSUE SPECIMENOrdering Facility: [facility] Address: [address] [place] [address] Result Comment: Pre- op diagnosis: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 F allopian tube and ovary, left, salpingo-oophorectomy- Benign ovaries and fallopian tubeB. Fallopian tube and ovary, right, salpingo-oophorectomy- Rare residual tumor cells in ovary with therapy effect- Benign fallopian tubeC. Soft tissue, paraovarian, right, excision- Hyalinized and calcified nodule, negative for carcinoma at 1137 EDT Performed By: #### 6 6121-5 ####[facility] LABCLIA [id number] [place] [address] [place] FINAL PERFORMING LAB Normal [facility] Comment on above: Order Comment: Speci men Type: TISSUE SPECIMENOrdering Facility: [facility] Address: [address] [place] [address] Result Comment: Diag nostic interpretation performed at: [facility], [address] [place] [address] CLIA# [id number] Director: Rishi Lackey MD Performed By: #### 6 6121-5 ####[facility] LABCLIA [id number] [address] [place] GROSS DESCRIPTION Normal [facility] Comment on above: Order Comment: Speci men Type: TISSUE SPECIMENOrdering Facility: [facility] Address: [address] [place] [address] Result Comment: A. F allopian Tube And Ovary LeftReceived fresh labeled fallopian tube and ovary, left [...] and glistening. Sectioning reveals an intact, unremarkable lumen.International Marketing Manager sections are submitted as follows:A1: Left ovaryA2: Left fallopian tubeAdditional sections are submitted as follows:A3. Remaining part of left fallopian tube fimbria, entirely submittedA4-A5. The remaining of left fallopian tube cross-sections, entirely submitted.Gross examination performed at [facility], [address] [place], [place] [address]AM 05/15/25 7:07 PMB. Fallopian Tube And Ovary RightReceived fresh labeled fallopian tube and ovary, right [...] and glistening. Sectioning reveals an intact, unremarkable lumen.International Marketing Manager sections are submitted as follows:B1: Right ovary with cystic cavityB2: Right fallopian tubeAdditional sections are submitted as follows:B3-B4. Remaining of right fallopian tube cross-sections, entirely submitted.Gross examination performed at [facility], [address] [place], [place] [address] 05/15/25 6:59 PMC. Soft Tissue (Not otherwise specified)Received fresh labeled nodule adjacent to right ovary is a jimenez-pink firm and well-circumscribed nodule with a smooth external surface. Sectioning reveals an extensively calcified cut surface. The nodule is entirely submitted in one cassette, following decalcification in formic acid.LINDA 05/09/25 3:55 PMGross examination performed at [facility], [address] [place] [address] Performed By: #### 6 6121-5 ####[facility] LABCLIA [id number] [place] [id number] [place] CNNURSEon 05-07-2025 CNNURSE Normal [facility] CNPNon 05-04-2025 CNPN Normal [facility] ECG 12 lead ECGon 05-03-2025 ECG 12 lead ECG [facility] [address] [place] [address] [place] [address] Electrocardiograph Report Signed Patient: Mirian Corrales MR#: [id number] : 1955 Acct:[id number] Age/Sex: 69 / F ADM Date: 05/03/25 Loc: XT [facility]: [facility]: Clarence Vines II, DO Ordering Provider: Clarence Vines II, DO Date of Service: 05/03/25 [...] No significant change was found Confirmed by NATI [facility], SETH ([id number]) on 05/04/2025 11:11:36 AM Referred By: Rey Schrader Electronically Signed By: SETH DAMIAN MD FACC Transcribed By: MUS Signed By Seth Damian MD, FACC 05/04/25 1111 Normal [facility] CNPNon 05-01-2025 CNPN Normal [facility] HISTORY PHYSICALon HISTORY PHYSICAL Normal [facility] TYPE AND SCREEN,30 DAYon ABO group Nom (Bld) A [facility] Blood group antibody screen Ql Negative [facility] Rh Nom (Bld) Positive [facility] CA 125on 04-27-2025 Cancer Ag 125 Qn 24 [arb'U]/mL NINF - 39 U/mL [facility] Comment on above: CA 125 test methodol ogy used is the Electrochemiluminescence Immunoassay by [employer] [...] (CA 125 II) [package insert V 1.0 [place]an]. [employer], [place], [place] (June 2015) CBC panel Auto (Bld)on 04-27 Nucleated RBC (Bld) [#/Vol] NINF [facility] Platelet mean volume (Bld) [Entitic vol] 10.9 fL 9.0 - 12.7 fL [facility] Platelets (Bld) [#/Vol] 163 10*3/uL [facility] RBC (Bld) [#/Vol] 2.80 10*6/uL Low 3.90 - 5.2 0 m/uL [facility] WBC (Bld) [#/Vol] 3.79 10*3/uL [facility] Erythrocyte distribution width (RBC) [Ratio] 20.4 % High 11.5-15.0 [facility] Comment on above: Order Comment: Speci men Type: BLOOD SPECIMENOrdering Facility: [facility] Address: [address] [place] [address] Performed By: #### 5 8410-2 ####[facility] LABCLIA [id number] [place] [address] [place] Hematocrit (Bld) [Volume fraction] 26.5 % Low 36.0-46.0 [facility] Comment on above: Order Comment: Speci men Type: BLOOD SPECIMENOrdering Facility: [facility] Address: [address] [place] [address] Performed By: #### 5 8410-2 ####[facility] LABCLIA [id number] [place] [address] [place] Hemoglobin (Bld) [Mass/Vol] 8.7 g/dL Low 11.5-15.5 [facility] Comment on above: Order Comment: Speci men Type: BLOOD SPECIMENOrdering Facility: [facility] Address: [address] [place] [address] Performed By: #### 5 8410-2 ####[facility] LABIA [id number] [place] [address] [place] MCH (RBC) [Entitic mass] 31.1 pg Normal 26.0-34.0 [facility] Comment on above: Order Comment: Speci men Type: BLOOD SPECIMENOrdering Facility: [facility] Address: [address] [place] [address] Performed By: #### 5 8410-2 ####[facility] LABIA [id number] [place] [address] [place] MCHC (RBC) [Mass/Vol] 32.8 g/dL Normal 30.5-36.0 [facility] Comment on above: Order Comment: Speci men Type: BLOOD SPECIMENOrdering Facility: [facility] Address: [address] [place] [address] Performed By: #### 5 8410-2 ####[facility] LABIA [id number] [place] [address] [place] MCV (RBC) [Entitic vol] 94.6 fL Normal 80.0-100.0 [facility] Comment on above: Order Comment: Speci men Type: BLOOD SPECIMENOrdering Facility: [facility] Address: [address] [place] [address] Performed By: #### 5 8410-2 ####[facility] LABIA [id number] [place] [address] [place] Nucleated RBC (Bld) [#/Vol] 10*3/uL Normal <0.01 [facility] Comment on above: Order Comment: Speci men Type: BLOOD SPECIMENOrdering Facility: [facility] Address: [address] [place] [address] Performed By: #### 5 8410-2 ####[facility] LABCLIA [id number] [address] [address] [place] Platelet mean volume (Bld) [Entitic vol] 10.9 fL Normal 9.0-12.7 [facility] Comment on above: Order Comment: Speci men Type: BLOOD SPECIMENOrdering Facility: [facility] Address: [address] [place] [address] Performed By: #### 5 8410-2 ####[facility] LABCLIA [id number] [place] [address] [place] Platelets (Bld) [#/Vol] 163 10*3/uL Normal 150-400 [facility] Comment on above: Order Comment: Speci men Type: BLOOD SPECIMENOrdering Facility: [facility] Address: [address] [place] [address] Performed By: #### 5 8410-2 ####[facility] LABIA [id number] [place] [id number] [place] RBC (Bld) [#/Vol] 2.80 10*6/uL Low 3.90-5.20 [facility] Comment on above: Order Comment: Speci men Type: BLOOD SPECIMENOrdering Facility: [facility] Address: [address] [place] [address] Performed By: #### 5 8410-2 ####[facility] LABCLIA [id number] [address] [address] [place] WBC (Bld) [#/Vol] 3.79 10*3/uL Normal 3.70-11.00 [facility] Comment on above: Order Comment: Speci men Type: BLOOD SPECIMENOrdering Facility: [facility] Address: [address] [place] [address] Performed By: #### 5 8410-2 ####[facility] LABCLIA [id number] [place] [address] [place] [facility] CBC PNL BLD AUTOon 04-27 [facility] NRBC # BLD AUTO <0.01 NINF [facility] PLATELET # BLD AUTO 163 [facility] PMV BLD AUTO 10.9 fL 9.0 - 12.7 fL [facility] WBC # BLD AUTO 3.79 [facility] RBC (Bld) [#/Vol] 2.8 10*6/uL Low 3.90 - 5.2 0 m/uL [facility] Specimen Type: BLOOD SPECIMEN Ordering [facility] Address: [address] [place] [address] Original Ordering Provider: JUAN WILKINSON [facility] CONFIRM BLOOD TYPEon ABO A [facility] Specimen Type: BLOOD SPECIMEN [facility] Address: [address] [place] [address] CC MAIN BLOOD BANK CLIA [id number] [address] [place] [address] [place] CLINISYNC CNOVSPon 04-27-2025 CNOVSP Normal [facility] CONFIRM BLOOD TYPEon 025 ABO group Nom (Bld) A [facility] ABO A Normal [facility] Comment on above: Order Comment: Speci men Type: BLOOD SPECIMENOrdering Facility: [facility] Address: [address] [place] [address] Performed By: #### C ONABO ####CC MAIN BLOOD BANKCLIA [id number] [place] [address] [place] Rh Nom (Bld) Positive Normal [facility] Comment on above: Order Comment: Speci men Type: BLOOD SPECIMENOrdering Facility: [facility] Address: [address] [place] [address] Performed By: #### C ONABO ####CC MAIN BLOOD BANKCLIA [id number] [place] [address] [place] Cancer Ag 125 Qnon Interpretation and review of laboratory results Normal [facility] Cancer Ag125 SerPl-aCncon Cancer Ag 125 Qn 24 [arb'U]/mL Normal <39 [facility] Comment on above: Order Comment: Speci men Type: BLOOD SPECIMENOrdering Facility: [facility] Address: [address] [place] [address] Result Comment: CA 1 25 test methodology used is the Electrochemiluminescence Immunoassay by [employer]. Results obtained with different methods or kits cannot be used interchangeably.The reference interval is based on the 95th percentile of 240 apparently healthy premenopausal and postmenopausal women. At a cutoff value of 65 U/mL, the test sensitivity to distinguish ovarian carcinoma (FIGO stage I to IV) versus benign gynecological disease is 79%, with a specificity of 82%.Reference: Cancer Antigen 125 (CA 125 II) [package insert V 1.0 [place]an]. [employer], [place], [place] (June 2015) Performed By: #### 1 0334-1, 89136-0 ####[facility] LABCLIA [id number] [place] [address] [place] Comprehensive metabolic 2000 panelon 04-27-2025 Albumin [Mass/Vol] 4.4 g/dL 3.9 - 4.9 g/dL [facility] ALP [Catalytic activity/Vol] 64 U/L 34 - 123 U/L [facility] ALT [Catalytic activity/Vol] 17 U/L 7 - 38 U/L [facility] Anion gap [Moles/Vol] 14 mmol/L 8 - 15 mmol/L [facility] AST [Catalytic activity/Vol] 26 U/L 13 - 35 U/L [facility] Bilirubin [Mass/Vol] 0.4 mg/dL 0.2 - 1 .3 mg/dL [facility] Calcium [Mass/Vol] 9.4 mg/dL 8.5 - 10. 2 mg/dL [facility] Chloride [Moles/Vol] 99 mmol/L 98 - 10 7 mmol/L [facility] CO2 [Moles/Vol] 22 mmol/L 22 - 30 mmol/L [facility] Creatinine [Mass/Vol] 0.62 mg/dL 0.58 - 0.96 mg/dL [facility] GFR/1.73 sq M.predicted among non-blacks MDRD (S/P/Bld) [Vol rate/Area] 97 mL/min/{1.73_m2} - PINF [facility] Comment on above: Estimated Glomerular Filtration Rate (eGFR) is calculated using the 2020 CKD-EPI creatinine equation. This equation utilizes serum creatinine, sex, and age as parameters. The creatinine assay has traceable calibration to isotope dilution-mass spectrometry. Refer to KDIGO guidelines for clinical interpretation. In patients with unstable renal function, e.g. those with acute kidney injury, the eGFR may not accurately reflect actual GFR. Glucose [Mass/Vol] 101 mg/dL High 74 - 99 mg/dL [facility] Comment on above: The [place] Diabete s Association (ADA) provides guidance for cutoff values [...] Standards of Medical Care in Diabetes 2016, [place] Diabetes Association. Diabetes Care. 2016.39(Suppl 1). Interpretation and review of laboratory results Abnormal [facility] Potassium [Moles/Vol] 4.4 mmol/L 3.7 - 5.1 mmol/L [facility] Protein [Mass/Vol] 7.5 g/dL 6.3 - 8.0 g/dL [facility] Sodium [Moles/Vol] 135 mmol/L Low 136 - 144 mmol/L [facility] Urea nitrogen [Mass/Vol] 15 mg/dL 7 - 21 mg/dL [facility] Albumin [Mass/Vol] 4.4 g/dL Normal 3.9-4.9 [facility] Comment on above: Order Comment: Speci men Type: BLOOD SPECIMENOrdering Facility: [facility] Address: [address] [place] [address] Performed By: #### 1 0334-1, 66873-3 ####[facility] LABCLIA [id number] [address] [place] [address] [place] ALP [Catalytic activity/Vol] 64 U/L Normal 34-123 [facility] Comment on above: Order Comment: Speci men Type: BLOOD SPECIMENOrdering Facility: [facility] Address: [address] [place] [address] Performed By: #### 1 0334-1, 75422-9 ####[facility] LABCLIA [id number] [address] [place] [address] [place] ALT [Catalytic activity/Vol] 17 U/L Normal 7-38 [facility] Comment on above: Order Comment: Speci men Type: BLOOD SPECIMENOrdering Facility: [facility] Address: [address] [place] [address] Performed By: #### 1 0334-1, 77343-9 ####[facility] LABCLIA [id number] [address], [place] [address] [place] Anion gap [Moles/Vol] 14 mmol/L Normal 8-15 [facility] Comment on above: Order Comment: Speci men Type: BLOOD SPECIMENOrdering Facility: [facility] Address: [address] [place] [address] Performed By: #### 1 0334-1, 49831-8 ####[facility] LABCLIA [id number] [address], [facility] [place] AST [Catalytic activity/Vol] 26 U/L Normal 13-35 [facility] Comment on above: Order Comment: Speci men Type: BLOOD SPECIMENOrdering Facility: [facility] Address: [address] [place], [place] [address] Performed By: #### 1 0334-1, 85500-7 ####[facility] LABCLIA [id number] [address] [place] [address] [place] Bilirubin [Mass/Vol] 0.4 mg/dL Normal 0.2-1.3 [facility] Comment on above: Order Comment: Speci men Type: BLOOD SPECIMENOrdering Facility: [facility] Address: [address] [place] [address] Performed By: #### 1 0334-1, ####[facility] LABCLIA [id number] [address] [address] [place] Calcium [Mass/Vol] 9.4 mg/dL Normal 8.5-10.2 [facility] Comment on above: Order Comment: Speci men Type: BLOOD SPECIMENOrdering Facility: [facility] Address: [address] [place], [place] [address] Performed By: #### 1 0334-1, ####[facility] LABCLIA [id number] [address] [address] [place] Chloride [Moles/Vol] 99 mmol/L Normal 98-107 [facility] Comment on above: Order Comment: Speci men Type: BLOOD SPECIMENOrdering Facility: [facility] Address: [address] [place], [place] [address] Performed By: #### 1 0334-1, ####[facility] LABIA [id number] [place] [address] [place] CO2 [Moles/Vol] 22 mmol/L Normal 22-30 [facility] Comment on above: Order Comment: Speci men Type: BLOOD SPECIMENOrdering Facility: [facility] Address: [address] [place], [place] [address] Performed By: #### 1 0334-1, 03403-7 ####[facility] LABCLIA [id number] [address] [address] [place] Creatinine [Mass/Vol] 0.62 mg/dL Normal 0.58-0.96 [facility] Comment on above: Order Comment: Speci men Type: BLOOD SPECIMENOrdering Facility: [facility] Address: [address] [place], [place] [address] Performed By: #### 1 0334-1, 28484-9 ####[facility] LABCLIA [id number] [place] [address] [place] eGFRcr SerPlBld CKD-EPI 2020 97 mL/min/1.73m??? Normal >=60 [facility] Comment on above: Order Comment: Margarita zendejas Type: BLOOD SPECIMENOrdering Facility: [facility] Address: [address] [place] [address] Result Comment: Estela mated Glomerular Filtration Rate [...] reflect actual GFR. Performed By: #### 1 0334-1, 26144-7 ####[facility] LABIA [id number] [place] [address] [place] Glucose [Mass/Vol] 101 mg/dL High 74-99 [facility] Comment on above: Order Comment: Margarita zendejas Type: BLOOD SPECIMENOrdering Facility: [facility] Address: [address] [place] [address] Result Comment: The [place] Diabetes Association (ADA) provides guidance for cutoff values for fasting glucose and random glucose. The ADA defines fasting as no caloric intake for at least 8 hours. Fasting plasma glucose results between 100 to 125 mg/dL indicate increased risk for diabetes (prediabetes).Fasting plasma glucose results greater than or equal to 126 mg/dL meet the criteria for diagnosis of diabetes. In the absence of unequivocal hyperglycemia, results should be confirmed by repeat testing. In a patient with classic symptoms of hyperglycemia or hyperglycemic crisis, random plasma glucose results greater than or equal to 200 mg/dL meet the criteria for diagnosis of diabetes.Reference: Standards of Medical Care in Diabetes 2016, [place] [employer]. Diabetes Care. 2016.39(Suppl 1). Performed By: #### 1 0334-1, 98564-3 ####[facility] LABCLIA [id number] [address] [address] [place] Potassium [Moles/Vol] 4.4 mmol/L Normal 3.7-5.1 [facility] Comment on above: Order Comment: Speci men Type: BLOOD SPECIMENOrdering Facility: [facility] Address: [address] [place] [address] Performed By: #### 1 0334-1, 03537-3 ####[facility] LABCLIA [id number] [place] [id number] [place] Protein [Mass/Vol] 7.5 g/dL Normal 6.3-8.0 [facility] Comment on above: Order Comment: Speci men Type: BLOOD SPECIMENOrdering Facility: [facility] Address: [address] [place] [address] Performed By: #### 1 0334-1, 05125-6 ####[facility] LABIA [id number] [place] [id number] [place] Sodium [Moles/Vol] 135 mmol/L Low 136-144 [facility] Comment on above: Order Comment: Speci men Type: BLOOD SPECIMENOrdering Facility: [facility] Address: [address] [place] [address] Performed By: #### 1 0334-1, 30996-9 ####[facility] LABCLIA [id number] [place] [id number] [place] Urea nitrogen [Mass/Vol] 15 mg/dL Normal 7-21 [facility] Comment on above: Order Comment: Speci men Type: BLOOD SPECIMENOrdering Facility: [facility] Address: [address] [place] [address] Performed By: #### 1 0334-1, 84561-3 ####[facility] LABCLIA [id number] [address] [address] [place] Laboratory - Blood bankon Rh Nom (Bld) Positive [facility] Laboratory - Hematology and Cell countson 04-27-2025 Erythrocyte distribution width (RBC) [Ratio] 20.4 % High 11.5 - 15.0 % [facility] Hematocrit (Bld) [Volume fraction] 26.5 % Low 36.0 - 46.0 % [facility] Hemoglobin (Bld) [Mass/Vol] 8.7 g/dL Low 11.5 - 15.5 g/dL [facility] MCH (RBC) [Entitic mass] 31.1 pg 26.0 - 34.0 pg [facility] MCHC (RBC) [Mass/Vol] 32.8 g/dL 30.5 - 36.0 g/dL [facility] MCV (RBC) [Entitic vol] 94.6 fL 80.0 - 100.0 fL [facility] No Panel InformationOrdered By: Ccf Provider on 04-27-2025 [facility] No Panel Informationon 04-27 [facility] Interpretation and review of laboratory results Abnormal [facility] TYPE AND SCREEN,30 DAYon ABO A Normal [facility] Comment on above: Order Comment: Speci men Type: BLOOD SPECIMENOrdering Facility: [facility] Address: [address] [place] [address] Performed By: #### T SCR30 ####[facility] MA[facility] BLOOD BANKIA [id number] [place] [address] [place] Rh Nom (Bld) Positive Normal [facility] Comment on above: Order Comment: Speci men Type: BLOOD SPECIMENOrdering Facility: [facility] Address: [address] [place] [address] Performed By: #### T SCR30 ####[facility] MAIN BLOOD BANKCLIA [id number] [place] [address] [place] XR CHEST 2V FRONTAL/LATon * * *Final Report* * * DATE [...] tissues: Unremarkable. IMPRESSION: No acute radiographic abnormality. Zipper Setter Lockstitch: [facility] Transcribe Date/Time: Apr 27 2025 7:03P Dictated by : JOSUE RODRIGUEZ MD This examination was interpreted and the report reviewed and electronically signed by: JOSUE RODRIGUEZ MD on Apr 27 2025 7:03PM EST [id number]^[id number]^SI^ACN [facility], Radiologi MD gemma - 04/30/2025 * * *Final Report* * * DATE [...] tissues: Unremarkable. IMPRESSION: No acute radiographic abnormality. Zipper Setter Lockstitch: [facility] Transcribe Date/Time: Apr 27 2025 7:03P Dictated by : JOSUE RODRIGUEZ MD This examination was interpreted and the report reviewed and electronically signed by: JOSUE RODRIGUEZ MD on Apr 27 2025 7:03PM EST [id number]^[id number]^SI^ACN [facility] XR CHEST 2V FRONTAL/LAT Normal [facility] Study observation (narrative) [facility] XR Chest PA and Lateralon IMPRESSION: No acute radiographic abnormality. Zipper Setter Lockstitch: [facility]INN Transcribe Date/Time: Apr 27 2025 7:03P Dictated by : JOSUE RODRIGUEZ MD This examination was interpreted and the report reviewed and electronically signed by: JOSUE RODRIGUEZ MD on Apr 27 2025 7:03PM [facility] DIVISION OF RADIOLOGY * * *Final Report* * * DATE OF EXAM: Apr 27 2025 4:30PM AOX 5291 - XR CHEST 2V FRONTAL/LAT / PROCEDURE REASON: Carcinomatosis peritonei (HCC) * * * * Physician Interpretation * * * * EXAMINATION: CHEST RADIOGRAPH (2 VIEW FRONTAL & LATERAL) CLINICAL HISTORY: Carcinomatosis peritonei (HCC) MQ: XC2_6 EXAM DATE/TIME: 04/27/2025 4:30 PM COMPARISON: Chest CT a 2023. RESULT: Lines, tubes, and devices: None. Lungs and pleura: The lungs are hyperinflated. No consolidation. No lung mass. No pleural effusion. No pneumothorax. Cardiomediastinal silhouette: Normal cardiomediastinal silhouette. Bones and soft tissues: Unremarkable. DIVISION OF RADIOLOGY Provider, [facility] - 04/27/2025 * * *Final Report* * * DATE OF EXAM: Apr 27 2025 4:30PM AOX 5291 - XR CHEST 2V FRONTAL/LAT / PROCEDURE REASON: Carcinomatosis peritonei (HCC) * * * * Physician Interpretation * * * * EXAMINATION: CHEST RADIOGRAPH (2 VIEW FRONTAL & LATERAL) CLINICAL HISTORY: Carcinomatosis peritonei (HCC) MQ: XC2_6 EXAM DATE/TIME: 04/27/2025 4:30 PM COMPARISON: Chest CT a 2023. RESULT: Lines, tubes, and devices: None. Lungs and pleura: The lungs are hyperinflated. No consolidation. No lung mass. No pleural effusion. No pneumothorax. Cardiomediastinal silhouette: Normal cardiomediastinal silhouette. Bones and soft tissues: Unremarkable. IMPRESSION IMPRESSION: No acute radiographic abnormality. Zipper Setter Lockstitch: QUINN Transcribe Date/Time: Apr 27 2025 7:03P Dictated by : JOSUE RODRIGUEZ MD This examination was interpreted and the report reviewed and electronically signed by: JOSUE RODRIGUEZ MD on Apr 27 2025 7:03PM EST [facility] Radiology Study observation (narrative) [facility] GLUCOSE POCT GLUCOMETERSon 0 04-20-2025 Glucose [Mass/Vol] 96 mg/dL [facility] Comment on above: Random Glucose Refer ence Range is dependent on time and content of last meal. Glucose of more than 200 mg/dL in a nonstressed, ambulatory subject supports the diagnosis of Diabetes Mellitus. [facility] [place] 125on 04-19-2025 CANCER ANTIGEN 125 33 0.0 - 38.1 [facility] Comment on above: [facility] El ectrochemiluminescence Immunoassay (ECLIA) Values obtained with different assay methods or kits cannot be used interchangeably. Results cannot be interpreted as absolute evidence of the presence or absence of malignant disease. Performed at: [place] [id number] Asp Developer: Lj Solano PhD, Phone: [phone] [facility] Alanine aminotransferase [En zymatic activity/volume] in Serum or PlasmaOrdered By: [place] on 04-18-2025 ALT [Catalytic activity/Vol] 11 U/L Normal 7-52 [facility] Comment on above: Performed By: #### T SH3, FE, TIBC, CMP, CBC #### [place] [address] [place] #### CELIAC #### [facility] , Albumin [Mass/volume] in Ser um or Plasma by Bromocresol green (BCG) dye binding methoOrdered By: Clarence [place]ines on 04-18-2025 Albumin BCG dye [Mass/Vol] 3.8 g/dL 3.5-5.7 [facility] Alkaline phosphatase [Enzyma tic activity/volume] in Serum or PlasmaOrdered By: [place] on 04-18-2025 ALP [Catalytic activity/Vol] 51 U/L Normal 34-104 [facility] Comment on above: Performed By: #### T SH3, FE, TIBC, CMP, CBC #### [facility] [address] [place] [address] [place] #### CELIAC #### [facility] , Aspartate aminotransferase [ Enzymatic activity/volume] in Serum or PlasmaOrdered By: [place] on 04-18-2025 AST [Catalytic activity/Vol] 17 U/L Normal 13-39 [facility] Comment on above: Performed By: #### T SH3, FE, TIBC, CMP, CBC #### [address] #### CELIAC #### [facility] , Basophils [#/volume] in Bloo d by Automated countOrdered By: [place] on 04-18-2025 Basophils (Bld) [#/Vol] 0.0 10*3/uL Normal 0.0-0.2 [facility] Comment on above: Result Comment: PERF ORMED BY: [place] [address] PATHOLOGIST BASE DRAW OPERATOR MARISEL MANRIQUE M.D. Performed By: #### T SH3, FE, TIBC, CMP, CBC #### [address] #### CELIAC #### [facility] , Basophils/100 leukocytes in Blood by Automated countOrdered By: [place] on 04-18-2025 Basophils/100 WBC (Bld) 0.8 % Normal . [facility] Comment on above: Performed By: #### T SH3, FE, TIBC, CMP, CBC #### [place] [address] [place] #### CELIAC #### [facility] , Bilirubin.total [Mass/volume ] in Serum or PlasmaOrdered By: [place] on 04-18-2025 Bilirubin [Mass/Vol] 0.3 mg/dL Normal 0.3-1.0 [facility] Comment on above: Performed By: #### T SH3, FE, TIBC, CMP, CBC #### [place] [address] [place] #### CELIAC #### [facility] , CBC W Auto Differential pane l (Bld)on 04-18-2025 Basophils (Bld) [#/Vol] 0 10*3/uL 0.0 - 0.2 10*3/uL [facility] Basophils/100 WBC Manual cnt (Syn fld) 0.8 % . [facility] Eosinophils (Bld) [#/Vol] 0.1 10*3/uL 0.0 - 0.45 10*3/uL [facility] Eosinophils/100 WBC Manual cnt (Syn fld) 4.9 % . [facility] Erythrocyte distribution width (RBC) [Ratio] 22.5 % High 11.9 - 15.3 % [facility] Hematocrit (Bld) [Volume fraction] 26.9 % Low 34.0 - 46.4 % [facility] Hemoglobin (Bld) [Mass/Vol] 8.9 g/dL Low 11.8 - 15.4 g/dL [facility] Interpretation and review of laboratory results Abnormal [facility] Lymphocytes (Bld) [#/Vol] 0.7 10*3/uL Low 1.00 - 4.8 10*3/uL [facility] Lymphocytes/100 WBC Manual cnt (Syn fld) 23.4 % . [facility] MCH (RBC) [Entitic mass] 29.9 pg 24.7 - 34.3 pg [facility] MCHC (RBC) [Mass/Vol] 33 g/dL 32.0 - 35.0 g/dL [facility] MCV (RBC) [Entitic vol] 90.3 fL 80 - 100 fL [facility] Monocytes (Bld) [#/Vol] 0.5 10*3/uL 0.0 - 0.8 10*3/uL [facility] Monocytes+Macrophages/ 100 WBC Manual cnt (Syn fld) 15.9 % . [facility] Neutrophils (Bld) [#/Vol] 1.7 10*3/uL Low 1.8 - 7.7 10*3/uL [facility] Neutrophils/100 WBC Manual cnt (Syn fld) 55 % . [facility] NRBC 0.2 /100{WBC} 0 - 0.5 /100{WBC} [facility] Platelet mean volume (Bld) [Entitic vol] 7.9 fL 6.3 - 10.7 fL [facility] Platelets (Bld) [#/Vol] 146 10*3/uL Low 150 - 450 10*3/uL [facility] RBC LM.HPF (Urine sed) [#/Area] 2.98 10*6/uL Low 3.60 - 5.00 10*6/uL [facility] WBC (Bld) [#/Vol] 3.1 10*3/uL Low 3.8 - 11.6 10*3/uL [facility] WBC LM.HPF (Urine sed) [#/Area] 3.1 [CFU]/mL Low 3.8 - 11.6 [CFU]/mL [facility] Calcium [Mass/volume] in Ser um or PlasmaOrdered By: [place] on 04-18-2025 Calcium [Mass/Vol] 8.8 mg/dL Normal 8.6-10.3 [facility] Comment on above: Performed By: #### T SH3, FE, TIBC, CMP, CBC #### [address] #### CELIAC #### [facility] , Cancer Antigen 125on 025 Cancer Antigen 125 33.0 Normal 0.0-38.1 [facility] Comment on above: Result Comment: [facility] Electrochemiluminescence Immunoassay (ECLIA) Values obtained with different assay methods or kits cannot be used interchangeably. Results cannot be interpreted as absolute evidence of the presence or absence of malignant disease. Performed at: [address] [id number] Asp Developer: Lj Solano PhD, Phone: [phone] PERFORMED BY: [place] [address] PATHOLOGIST BASE DRAW OPERATOR MARISEL MANRIQUE M.D. Performed By: #### T SH3, FE, TIBC, CMP, CBC #### [place] [address] [place] #### CELIAC #### [facility] , Capillary blood glucose alena urement by glucometer (mass/volume)Ordered By: [place] on 04-18-2025 Glucose [Mass/Vol] 96 mg/dL Normal [facility] Comment on above: Random Glucose Refer ence Range is dependent on time and content of last meal. Glucose of more than 200 mg/dL in a nonstressed, ambulatory subject supports the diagnosis of Diabetes Mellitus. Result Comment: Zachary om Glucose Reference Range is dependent on time and content of last meal. Glucose of more than 200 mg/dL in a nonstressed, ambulatory subject supports the diagnosis of Diabetes Mellitus. PERFORMED BY: [place] [address] PATHOLOGIST BASE DRAW OPERATOR MARISEL MANRIQUE M.D. Performed By: #### T SH3, FE, TIBC, CMP, CBC #### [address] #### CELIAC #### [facility] , Carbon dioxide, total [Moles /volume] in Serum or PlasmaOrdered By: [place] on 04-18-2025 CO2 [Moles/Vol] 30.4 mmol/L Normal 21.0-31.0 [facility] Comment on above: Performed By: #### T SH3, FE, TIBC, CMP, CBC #### [facility] [address] [place] [address] #### CELIAC #### [facility] , Chloride [Moles/volume] in S yin or PlasmaOrdered By: [place] on 04-18-2025 Chloride [Moles/Vol] 107 mmol/L Normal 98-107 [facility] Comment on above: Performed By: #### T SH3, FE, TIBC, CMP, CBC #### [facility] [address] [place] [address] [place] #### CELIAC #### [facility] , Complete Blood Count Auto Di ffon 04-18-2025 Mean Corpuscular HGB Conc 33.0 g/dL Normal 32.0-35.0 [facility] Comment on above: Performed By: #### T SH3, FE, TIBC, CMP, CBC #### [place] [address] [place] #### CELIAC #### [facility] , NRBC% 0.2 /100{WBC} Normal 0-0.5 [facility] Comment on above: Performed By: #### T SH3, FE, TIBC, CMP, CBC #### [place] [address] [place] #### CELIAC #### [facility] , White Blood Count 3.1 [CFU]/mL Low 3.8-11.6 [facility] Comment on above: Performed By: #### T SH3, FE, TIBC, CMP, CBC #### [address] #### CELIAC #### [facility] , Comprehensive Metabolic Pane alex 04-18-2025 Albumin [Mass/Vol] 3.8 g/dL Normal 3.5-5.7 [facility] Comment on above: Performed By: #### T SH3, FE, TIBC, CMP, CBC #### [address] #### CELIAC #### [facility] , Creatinine Clr Calc Pharmacy 52.37 Normal [facility] Comment on above: Result Comment: PERF ORMED BY: [place] [address] PATHOLOGIST BASE DRAW OPERATOR MARISEL MANRIQUE M.D. Performed By: #### T SH3, FE, TIBC, CMP, CBC #### [place] [address] [place] #### CELIAC #### [facility] , GFR/1.73 sq M.predicted MDRD (S/P/Bld) [Vol rate/Area] mL/min/{1.73_m2} Normal [facility] Comment on above: Performed By: #### T SH3, FE, TIBC, CMP, CBC #### [place] [address] [facility] #### CELIAC #### [facility] , Comprehensive metabolic pane alex 04-18-2025 Albumin [Mass/Vol] 3.8 g/dL 3.5 - 5.7 g/dL [facility] Albumin/Globulin [Mass ratio] 1.4 {ratio} [facility] ALP [Catalytic activity/Vol] 51 U/L 34 - 104 U/L [facility] ALT [Catalytic activity/Vol] 11 U/L 7 - 52 U/L [facility] Anion gap [Moles/Vol] 6.6 mmol/L 6.0 - 15.0 [facility] AST [Catalytic activity/Vol] 17 U/L 13 - 39 U/L [facility] Bilirubin [Mass/Vol] 0.3 mg/dL 0.3 - 1 .0 mg/dL [facility] Calcium [Mass/Vol] 8.8 mg/dL 8.6 - 10. 3 mg/dL [facility] Chloride [Moles/Vol] 107 mmol/L 98 - 10 7 mmol/L [facility] CO2 [Moles/Vol] 30.4 mmol/L 21.0 - 31.0 mmol/L [facility] Creatinine (U) [Mass/Vol] 0.79 mg/dL 0.60 - 1.20 mg/dL [facility] CREATININE CLR CALC PHARMACY 52.37 [facility] ESTIMATED GFR [facility] Globulin (S) [Mass/Vol] 2.8 g/dL [facility] Glucose [Mass/Vol] 83 mg/dL 70 - 100 mg/dL [facility] Comment on above: Random Glucose Refer ence Range is dependent on time and content of last meal. Glucose of more than 200 mg/dL in a nonstressed, ambulatory subject supports the diagnosis of Diabetes Mellitus. ADA recommended reference range Potassium [Moles/Vol] 4 mmol/L 3.5 - 5.1 mmol/L [facility] Protein [Mass/Vol] 6.6 g/dL 6.4 - 8.9 g/dL [facility] Sodium [Moles/Vol] 140 mmol/L 136 - 145 mmol/L [facility] Urea nitrogen [Mass/Vol] 14 mg/dL 7 - 25 mg/dL [facility] Creatinine [Mass/volume] in Serum or PlasmaOrdered By: [place]rence [place] on 04-18-2025 Creatinine [Mass/Vol] 0.79 mg/dL Normal 0.60-1.20 [facility] Comment on above: Performed By: #### T SH3, FE, TIBC, CMP, CBC #### [facility] [address] [place] [address] #### CELIAC #### [facility] , Eosinophils [#/volume] in Bl ood by Automated countOrdered By: [place] on 04-18-2025 Eosinophils (Bld) [#/Vol] 0.1 10*3/uL Normal 0.0-0.45 [facility] Comment on above: Performed By: #### T SH3, FE, TIBC, CMP, CBC #### [address] #### CELIAC #### [facility] , Eosinophils/100 leukocytes i n Blood by Automated countOrdered By: [place] on 04-18-2025 Eosinophils/100 WBC (Bld) 4.9 % Normal . [facility] Comment on above: Performed By: #### T SH3, FE, TIBC, CMP, CBC #### [facility] [address] [place] [address] [place] #### CELIAC #### [facility] , Erythrocyte distribution wid th [Ratio] by Automated countOrdered By: [place] on 04-18-2025 Erythrocyte distribution width (RBC) [Ratio] 22.5 % High 11.9-15.3 [facility] Comment on above: Performed By: #### T SH3, FE, TIBC, CMP, CBC #### [place] [address] [place] #### CELIAC #### [facility] , Erythrocytes [#/volume] in B lood by Automated countOrdered By: [place] on 04-18-2025 RBC (Bld) [#/Vol] 2.98 10*6/uL Low 3.60-5.00 [facility] Comment on above: Performed By: #### T SH3, FE, TIBC, CMP, CBC #### [facility] [address] [place] [address] [place] #### CELIAC #### [facility] , Glucose [Mass/volume] in Ser um or PlasmaOrdered By: [place] on 04-18-2025 Glucose [Mass/Vol] 83 mg/dL Normal 70-100 [facility] Comment on above: ADA recommended refe rence rangeRandom Glucose Reference Range is dependent on time and content of last meal. Glucose of more than 200 mg/dL in a nonstressed, ambulatory subject supports the diagnosis of Diabetes Mellitus. Result Comment: Zach[place] om Glucose Reference Range is dependent on time and content of last meal. Glucose of more than 200 mg/dL in a nonstressed, ambulatory subject supports the diagnosis of Diabetes Mellitus. ADA recommended reference range Performed By: #### T SH3, FE, TIBC, CMP, CBC #### [place] [address] [place] #### CELIAC #### [facility] , Hematocrit [Volume Fraction] of Blood by Automated countOrdered By: [place] on 04-18-2025 Hematocrit (Bld) [Volume fraction] 26.9 % Low 34.0-46.4 [facility] Comment on above: Performed By: #### T SH3, FE, TIBC, CMP, CBC #### [facility] [address] [place] [address] [place] #### CELIAC #### [facility] , Hemoglobin [Mass/volume] in BloodOrdered By: [place] on 04-18-2025 Hemoglobin (Bld) [Mass/Vol] 8.9 g/dL Low 11.8-15.4 [facility] Comment on above: Performed By: #### T SH3, FE, TIBC, CMP, CBC #### [place] [address] [place] #### CELIAC #### [facility] , Leukocytes [#/volume] correc cla for nucleated erythrocytes in Blood by Automated counOrdered By: [place] on 04-18-2025 WBC corrected for nucl RBC Auto (Bld) [#/Vol] 3.1 10*3/uL Low 3.8-11.6 [facility] Leukocytes [#/volume] in Blo od by Automated countOrdered By: [place] on 04-18-2025 WBC (Bld) [#/Vol] 3.1 10*3/uL Low 3.8-11.6 [facility] Comment on above: Performed By: #### T SH3, FE, TIBC, CMP, CBC #### [facility] [address] [place] [address] [place] #### CELIAC #### [facility] , Lymphocytes [#/volume] in Bl ood by Automated countOrdered By: [place] on 04-18-2025 Lymphocytes (Bld) [#/Vol] 0.7 10*3/uL Low 1.00-4.8 [facility] Comment on above: Performed By: #### T SH3, FE, TIBC, CMP, CBC #### [facility] [address] [place] [address] [place] #### CELIAC #### [facility] , Lymphocytes/100 leukocytes i n Blood by Automated countOrdered By: [place] on 04-18-2025 Lymphocytes/100 WBC (Bld) 23.4 % Normal . [facility] Comment on above: Performed By: #### T SH3, FE, TIBC, CMP, CBC #### [facility] [address] [place] [address] [place] #### CELIAC #### [facility] , MCH [Entitic mass] by Automa cal countOrdered By: Clarnece [place]ines on 04-18-2025 MCH (RBC) [Entitic mass] 29.9 pg Normal 24.7-34.3 [facility] Comment on above: Performed By: #### T SH3, FE, TIBC, CMP, CBC #### [facility] [address] [place] [address] #### CELIAC #### [facility] , MCHC Auto (RBC) [Mass/Vol]Or dered By: [place] on 04-18-2025 MCHC (RBC) [Mass/Vol] 33.0 g/dL 32.0-35.0 [facility] MCV [Entitic volume] by Auto mated countOrdered By: [place] on 04-18-2025 MCV (RBC) [Entitic vol] 90.3 fL Normal 80-100 [facility] Comment on above: Performed By: #### T SH3, FE, TIBC, CMP, CBC #### [facility] [address] [place] [address] #### CELIAC #### [facility] , Monocytes [#/volume] in Bloo d by Automated countOrdered By: Clarence [place] on 04-18-2025 Monocytes (Bld) [#/Vol] 0.5 10*3/uL Normal 0.0-0.8 [facility] Comment on above: Performed By: #### T SH3, FE, TIBC, CMP, CBC #### [facility] [address] [place] [address] [place] #### CELIAC #### [facility] , Monocytes/100 leukocytes in Blood by Automated countOrdered By: Clarence [place] on 04-18-2025 Monocytes/100 WBC (Bld) 15.9 % Normal . [facility] Comment on above: Performed By: #### T SH3, FE, TIBC, CMP, CBC #### [facility] [address] [place] [address] [place] #### CELIAC #### [facility] , Neutrophils [#/volume] in Bl ood by Automated countOrdered By: Clarence [place] on 04-18-2025 Neutrophils (Bld) [#/Vol] 1.7 10*3/uL Low 1.8-7.7 [facility] Comment on above: Performed By: #### T SH3, FE, TIBC, CMP, CBC #### [facility] [address] [place] [address] [place] #### CELIAC #### [facility] , Neutrophils/100 leukocytes i n Blood by Automated countOrdered By: [place]rence [place] on 04-18-2025 Neutrophils/100 WBC (Bld) 55.0 % Normal . [facility] Comment on above: Performed By: #### T SH3, FE, TIBC, CMP, CBC #### [facility] [address] [place] [address] [place] #### CELIAC #### [facility] , No Panel InformationOrdered By: [place] on 04-18-2025 Estimated GFR (CKD-EPI) > 60.0 mL/Min [facility] Creatinine Clearance (Chem 52.37 [facility] Nucleated erythrocytes [Pres ence] in Blood by Automated countOrdered By: [place]rence [place] on 04-18-2025 Nucleated RBC Auto Ql (Bld) 0.2 /100{WBC} 0-0.5 [facility] PET tumor subq tx strat sb-m ton 04-18-2025 PET tumor subq tx strat sb-mt [facility] [place] [address] Nuclear Medicine Report Signed Patient: Mirian Corrales MR#: [id number] : 1955 Acct:[id number] Age/Sex: 69 / F ADM Date: 04/18/25 Loc: Room: Type: [facility] RCR Attending Dr: Clarence Vines II DO Copies to: Patrick Leiva II, MD Timothy J Adamowicz, II, DO Ordering Provider: Clarence Vines II, DO Date of Service: 04/18/25 [...] Leiva M.D. 04/18/2025 10:47 AM Dictation Location: [place] [address] Transcribed By: JULIOCESAR 04/18/25 1047 Dictated By: Patrick Leiva II, MD 04/18/25 1035 Signed By: 04/18/25 1047 Normal [facility] Platelet mean volume [Entiti c volume] in Blood by Automated countOrdered By: Clarence Vines on 04-18-2025 Platelet mean volume (Bld) [Entitic vol] 7.9 fL Normal 6.3-10.7 [facility] Comment on above: Performed By: #### T SH3, FE, TIBC, CMP, CBC #### [facility] [address] [place] [address] [place] #### CELIAC #### [facility] , Platelets [#/volume] in Bloo d by Automated countOrdered By: Clarence Vines on 04-18-2025 Platelets (Bld) [#/Vol] 146 10*3/uL Low 150-450 [facility] Comment on above: Performed By: #### T SH3, FE, TIBC, CMP, CBC #### [facility] [address] [place] [address] [place] #### CELIAC #### [facility] , Potassium [Moles/volume] in Serum or PlasmaOrdered By: Clarence Vines on 04-18-2025 Potassium [Moles/Vol] 4.0 mmol/L Normal 3.5-5.1 [facility] Comment on above: Performed By: #### T SH3, FE, TIBC, CMP, CBC #### [facility] [address] [place] [address] #### CELIAC #### [facility] , Protein [Mass/volume] in Ser um or PlasmaOrdered By: Clarence Vines on 04-18-2025 Protein [Mass/Vol] 6.6 g/dL Normal 6.4-8.9 [facility] Comment on above: Performed By: #### T SH3, FE, TIBC, CMP, CBC #### [facility] [address] [place] [address] #### CELIAC #### [facility] , Serum globulin measurement b y calculation (mass/volume)Ordered By: Clarence Vines on 04-18-2025 Globulin (S) [Mass/Vol] 2.8 g/dL [facility] Comment on above: Performed By: #### T SH3, FE, TIBC, CMP, CBC #### [facility] [address] [place] [address] [place] #### CELIAC #### [facility] , Serum or plasma albumin/glob ulin mass ratioOrdered By: Clarence Vines on 04-18-2025 Albumin/Globulin [Mass ratio] 1.4 {ratio} [facility] Comment on above: Performed By: #### T SH3, FE, TIBC, CMP, CBC #### [facility] [address] [place] [address] [place] #### CELIAC #### [facility] , Serum or plasma anion gap de terminationOrdered By: Clarence Vines on 04-18-2025 Anion gap [Moles/Vol] 6.6 mmol/L Normal 6.0-15.0 [facility] Comment on above: Performed By: #### T SH3, FE, TIBC, CMP, CBC #### [facility] [address] [place] [address] [place] #### CELIAC #### [facility] , Serum or plasma cancer antig en 125 (CA-125) measurement (units/volume)Ordered By: Clarence Vines on 04-18-2025 Cancer Ag 125 Qn 33.0 [arb'U]/mL 0.0-38.1 [facility] Comment on above: [facility] El ectrochemiluminescence Immunoassay(ECLIA)Values obtained with different assay methods or kits cannotbe used interchangeably. Results cannot be interpreted asabsolute evidence of the presence or absence of malignantdisease.Performed at: [facility] [email or web address] [id number] Director: Lj Solano PhD, Phone: [phone] Sodium [Moles/volume] in Ser um or PlasmaOrdered By: Clarence Vines on 04-18-2025 Sodium [Moles/Vol] 140 mmol/L Normal 136-145 [facility] Comment on above: Performed By: #### T SH3, FE, TIBC, CMP, CBC #### [facility] [address] [place] [address] #### CELIAC #### [facility] , Urea nitrogen [Mass/volume] in Serum or PlasmaOrdered By: Clarence Vines on 04-18-2025 Urea nitrogen [Mass/Vol] 14 mg/dL Normal 7-25 [facility] Comment on above: Performed By: #### T SH3, FE, TIBC, CMP, CBC #### [facility] [address] [place] [address] [place] #### CELIAC #### [facility] , CNNURSEon 04-17-2024 CNNURSE Normal [facility] CNNURSEon 04-06-2025 CNNURSE Normal [facility] [place] 125on 03-31-2025 CANCER ANTIGEN 125 61 0.0 - 38.1 [facility] Comment on above: [facility] El ectrochemiluminescence Immunoassay (ECLIA) Values obtained with different assay methods or kits cannot be used interchangeably. Results cannot be interpreted as absolute evidence of the presence or absence of malignant disease. Performed at: - [facility] [address] [id number] Asp Developer: Lj Solano PhD, Phone: [phone] [facility] Alanine aminotransferase [En zymatic activity/volume] in Serum or PlasmaOrdered By: Clarence Vines on 03-29-2025 ALT [Catalytic activity/Vol] 9 U/L Normal 7-52 [facility] Comment on above: Performed By: #### T SH3, FE, TIBC, CMP, CBC #### [facility] [address] [place] [address] [place] #### CELIAC #### [facility] , Albumin [Mass/volume] in Ser um or Plasma by Bromocresol green (BCG) dye binding methoOrdered By: Clarence Vines on 03-29-2025 Albumin BCG dye [Mass/Vol] 4.0 g/dL 3.5-5.7 [facility] Alkaline phosphatase [Enzyma tic activity/volume] in Serum or PlasmaOrdered By: Clarence Vines on 03-29-2025 ALP [Catalytic activity/Vol] 67 U/L Normal 34-104 [facility] Comment on above: Performed By: #### T SH3, FE, TIBC, CMP, CBC #### [facility] [address] [place] [address] [place] #### CELIAC #### [facility] , Aspartate aminotransferase [ Enzymatic activity/volume] in Serum or PlasmaOrdered By: Clarence Vines on 03-29-2025 AST [Catalytic activity/Vol] 17 U/L Normal 13-39 [facility] Comment on above: Performed By: #### T SH3, FE, TIBC, CMP, CBC #### [facility] [address] [place] [address] [place] #### CELIAC #### [facility] , Basophils [#/volume] in Bloo d by Automated countOrdered By: Clarence Vines on 03-29-2025 Basophils (Bld) [#/Vol] 0.0 10*3/uL Normal 0.0-0.2 [facility] Comment on above: Result Comment: PERF ORMED BY: [place] [address] PATHOLOGIST BASE DRAW OPERATOR MARISEL MANRIQUE M.D. Performed By: #### T SH3, FE, TIBC, CMP, CBC #### [place] [address] [place] #### CELIAC #### [facility] , Basophils/100 leukocytes in Blood by Automated countOrdered By: Clarence Vines on 03-29-2025 Basophils/100 WBC (Bld) 0.9 % Normal . [facility] Comment on above: Performed By: #### T SH3, FE, TIBC, CMP, CBC #### [address] #### CELIAC #### [facility] , Bilirubin.total [Mass/volume ] in Serum or PlasmaOrdered By: Clarence Vines on 03-29-2025 Bilirubin [Mass/Vol] 0.4 mg/dL Normal 0.3-1.0 [facility] Comment on above: Performed By: #### T SH3, FE, TIBC, CMP, CBC #### [facility] [address] [place] [address] [place] #### CELIAC #### [facility] , CBC W Auto Differential pane l (Bld)on 03-29-2025 Basophils (Bld) [#/Vol] 0 10*3/uL 0.0 - 0.2 10*3/uL [facility] Basophils/100 WBC Manual cnt (Syn fld) 0.9 % . [facility] Eosinophils (Bld) [#/Vol] 0.2 10*3/uL 0.0 - 0.45 10*3/uL [facility] Eosinophils/100 WBC Manual cnt (Syn fld) 3.5 % . [facility] Erythrocyte distribution width (RBC) [Ratio] 17.8 % High 11.9 - 15.3 % [facility] Hematocrit (Bld) [Volume fraction] 31.1 % Low 34.0 - 46.4 % [facility] Hemoglobin (Bld) [Mass/Vol] 10.3 g/dL Low 11.8 - 15.4 g/dL [facility] Interpretation and review of laboratory results Abnormal [facility] Lymphocytes (Bld) [#/Vol] 0.8 10*3/uL Low 1.00 - 4.8 10*3/uL [facility] Lymphocytes/100 WBC Manual cnt (Syn fld) 17.9 % . [facility] MCH (RBC) [Entitic mass] 29 pg 24.7 - 34.3 pg [facility] MCHC (RBC) [Mass/Vol] 33 g/dL 32.0 - 35.0 g/dL [facility] MCV (RBC) [Entitic vol] 87.9 fL 80 - 100 fL [facility] Monocytes (Bld) [#/Vol] 0.5 10*3/uL 0.0 - 0.8 10*3/uL [facility] Monocytes+Macrophages/ 100 WBC Manual cnt (Syn fld) 11.2 % . [facility] Neutrophils (Bld) [#/Vol] 3.1 10*3/uL 1.8 - 7.7 10*3/uL [facility] Neutrophils/100 WBC Manual cnt (Syn fld) 66.5 % . [facility] NRBC 0 /100{WBC} 0 - 0.5 /100{WBC} [facility] Platelet mean volume (Bld) [Entitic vol] 8.3 fL 6.3 - 10.7 fL [facility] Platelets (Bld) [#/Vol] 118 10*3/uL Low 150 - 450 10*3/uL [facility] RBC LM.HPF (Urine sed) [#/Area] 3.53 10*6/uL Low 3.60 - 5.00 10*6/uL [facility] WBC (Bld) [#/Vol] 4.7 10*3/uL 3.8 - 11.6 10*3/uL [facility] WBC LM.HPF (Urine sed) [#/Area] 4.7 [CFU]/mL 3.8 - 11.6 [CFU]/mL [facility] Calcium [Mass/volume] in Ser um or PlasmaOrdered By: Clarence Vines on 03-29-2025 Calcium [Mass/Vol] 9.2 mg/dL Normal 8.6-10.3 [facility] Comment on above: Performed By: #### T SH3, FE, TIBC, CMP, CBC #### [address] #### CELIAC #### [facility] , Cancer Antigen 125on 025 Cancer Antigen 125 61.0 Normal 0.0-38.1 [facility] Comment on above: Result Comment: [facility] Electrochemiluminescence Immunoassay (ECLIA) Values obtained with different assay methods or kits cannot be used interchangeably. Results cannot be interpreted as absolute evidence of the presence or absence of malignant disease. Performed at: [facility] [address] [id number] Asp Developer: Lj Solano PhD, Phone: [phone] PERFORMED BY: [place] [address] PATHOLOGIST BASE DRAW OPERATOR MARISEL MANRIQUE M.D. Performed By: #### T SH3, FE, TIBC, CMP, CBC #### [address] #### CELIAC #### [facility] , Carbon dioxide, total [Moles /volume] in Serum or PlasmaOrdered By: Clarence Vines on 03-29-2025 CO2 [Moles/Vol] 29.5 mmol/L Normal 21.0-31.0 [facility] Comment on above: Performed By: #### T SH3, FE, TIBC, CMP, CBC #### [place] [address] [place] #### CELIAC #### [facility] , Chloride [Moles/volume] in S yin or PlasmaOrdered By: Clarence Vines on 03-29-2025 Chloride [Moles/Vol] 106 mmol/L Normal 98-107 [facility] Comment on above: Performed By: #### T SH3, FE, TIBC, CMP, CBC #### [place] [address] [place] #### CELIAC #### [facility] , Complete Blood Count Auto Di ffon 03-29-2025 Mean Corpuscular HGB Conc 33.0 g/dL Normal 32.0-35.0 [facility] Comment on above: Performed By: #### T SH3, FE, TIBC, CMP, CBC #### [place] [address] [place] #### CELIAC #### [facility] , NRBC% 0.0 /100{WBC} Normal 0-0.5 [facility] Comment on above: Performed By: #### T SH3, FE, TIBC, CMP, CBC #### [address] #### CELIAC #### [facility] , White Blood Count 4.7 [CFU]/mL Normal 3.8-11.6 [facility] Comment on above: Performed By: #### T SH3, FE, TIBC, CMP, CBC #### [address] #### CELIAC #### [facility] , Comprehensive Metabolic Pane alex 03-29-2025 Albumin [Mass/Vol] 4.0 g/dL Normal 3.5-5.7 [facility] Comment on above: Performed By: #### T SH3, FE, TIBC, CMP, CBC #### [address] #### CELIAC #### [facility] , Creatinine Clr Calc Pharmacy 53.66 Normal [facility] Comment on above: Result Comment: PERF ORMED BY: [place] [address] PATHOLOGIST BASE DRAW OPERATOR MARISEL MANRIQUE M.D. Performed By: #### T SH3, FE, TIBC, CMP, CBC #### [place] [address] [place] #### CELIAC #### [facility] , GFR/1.73 sq M.predicted MDRD (S/P/Bld) [Vol rate/Area] mL/min/{1.73_m2} Normal [facility] Comment on above: Performed By: #### T SH3, FE, TIBC, CMP, CBC #### [facility] [address] #### CELIAC #### [facility] , Comprehensive metabolic pane alex 03-29-2025 Albumin [Mass/Vol] 4 g/dL 3.5 - 5.7 g/dL [facility] Albumin/Globulin [Mass ratio] 1.2 {ratio} [facility] ALP [Catalytic activity/Vol] 67 U/L 34 - 104 U/L [facility] ALT [Catalytic activity/Vol] 9 U/L 7 - 52 U/L [facility] Anion gap [Moles/Vol] 7.9 mmol/L 6.0 - 15.0 [facility] AST [Catalytic activity/Vol] 17 U/L 13 - 39 U/L [facility] Bilirubin [Mass/Vol] 0.4 mg/dL 0.3 - 1 .0 mg/dL [facility] Calcium [Mass/Vol] 9.2 mg/dL 8.6 - 10. 3 mg/dL [facility] Chloride [Moles/Vol] 106 mmol/L 98 - 10 7 mmol/L [facility] CO2 [Moles/Vol] 29.5 mmol/L 21.0 - 31.0 mmol/L [facility] Creatinine (U) [Mass/Vol] 0.8 mg/dL 0.60 - 1.20 mg/dL [facility] CREATININE CLR CALC PHARMACY 53.66 [facility] ESTIMATED GFR [facility] Globulin (S) [Mass/Vol] 3.4 g/dL [facility] Glucose [Mass/Vol] 91 mg/dL 70 - 100 mg/dL [facility] Comment on above: Random Glucose Refer ence Range is dependent on time and content of last meal. Glucose of more than 200 mg/dL in a nonstressed, ambulatory subject supports the diagnosis of Diabetes Mellitus. ADA recommended reference range Potassium [Moles/Vol] 4.4 mmol/L 3.5 - 5.1 mmol/L [facility] Protein [Mass/Vol] 7.4 g/dL 6.4 - 8.9 g/dL [facility] Sodium [Moles/Vol] 139 mmol/L 136 - 145 mmol/L [facility] Urea nitrogen [Mass/Vol] 16 mg/dL 7 - 25 mg/dL [facility] Creatinine [Mass/volume] in Serum or PlasmaOrdered By: Clarence Vines on 03-29-2025 Creatinine [Mass/Vol] 0.80 mg/dL Normal 0.60-1.20 [facility] Comment on above: Performed By: #### T SH3, FE, TIBC, CMP, CBC #### [facility] [address] [place] [address] [place] #### CELIAC #### [facility] , Eosinophils [#/volume] in Bl ood by Automated countOrdered By: Clarence Vines on 03-29-2025 Eosinophils (Bld) [#/Vol] 0.2 10*3/uL Normal 0.0-0.45 [facility] Comment on above: Performed By: #### T SH3, FE, TIBC, CMP, CBC #### [facility] [address] [place] [address] [place] #### CELIAC #### [facility] , Eosinophils/100 leukocytes i n Blood by Automated countOrdered By: Clarence Vines on 03-29-2025 Eosinophils/100 WBC (Bld) 3.5 % Normal . [facility] Comment on above: Performed By: #### T SH3, FE, TIBC, CMP, CBC #### [facility] [address] [place] [address] [place] #### CELIAC #### [facility] , Erythrocyte distribution wid th [Ratio] by Automated countOrdered By: Clarence Vines on 03-29-2025 Erythrocyte distribution width (RBC) [Ratio] 17.8 % High 11.9-15.3 [facility] Comment on above: Performed By: #### T SH3, FE, TIBC, CMP, CBC #### [facility] [address] [place] [address] #### CELIAC #### [facility] , Erythrocytes [#/volume] in B lood by Automated countOrdered By: Clarence Vines on 03-29-2025 RBC (Bld) [#/Vol] 3.53 10*6/uL Low 3.60-5.00 [facility] Comment on above: Performed By: #### T SH3, FE, TIBC, CMP, CBC #### [address] #### CELIAC #### [facility] , Glucose [Mass/volume] in Ser um or PlasmaOrdered By: Clarence Vines on 03-29-2025 Glucose [Mass/Vol] 91 mg/dL Normal 70-100 [facility] Comment on above: ADA recommended refe rence rangeRandom Glucose Reference Range is dependent on time and content of last meal. Glucose of more than 200 mg/dL in a nonstressed, ambulatory subject supports the diagnosis of Diabetes Mellitus. Result Comment: [facility] om Glucose Reference Range is dependent on time and content of last meal. Glucose of more than 200 mg/dL in a nonstressed, ambulatory subject supports the diagnosis of Diabetes Mellitus. ADA recommended reference range Performed By: #### T SH3, FE, TIBC, CMP, CBC #### [place] [address] [place] #### CELIAC #### [facility] , Hematocrit [Volume Fraction] of Blood by Automated countOrdered By: Clarence Vines on 03-29-2025 Hematocrit (Bld) [Volume fraction] 31.1 % Low 34.0-46.4 [facility] Comment on above: Performed By: #### T SH3, FE, TIBC, CMP, CBC #### [facility] [address] [place] [address] [place] #### CELIAC #### [facility] , Hemoglobin [Mass/volume] in BloodOrdered By: Clarence Vines on 03-29-2025 Hemoglobin (Bld) [Mass/Vol] 10.3 g/dL Low 11.8-15.4 [facility] Comment on above: Performed By: #### T SH3, FE, TIBC, CMP, CBC #### [place] [address] [place] #### CELIAC #### [facility] , Leukocytes [#/volume] correc cal for nucleated erythrocytes in Blood by Automated counOrdered By: Clarence Vines on 03-29-2025 WBC corrected for nucl RBC Auto (Bld) [#/Vol] 4.7 10*3/uL 3.8-11.6 [facility] Leukocytes [#/volume] in Blo od by Automated countOrdered By: Clarence Vines on 03-29-2025 WBC (Bld) [#/Vol] 4.7 10*3/uL Normal 3.8-11.6 [facility] Comment on above: Performed By: #### T SH3, FE, TIBC, CMP, CBC #### [address] #### CELIAC #### [facility] , Lymphocytes [#/volume] in Bl ood by Automated countOrdered By: Clarence Vines on 03-29-2025 Lymphocytes (Bld) [#/Vol] 0.8 10*3/uL Low 1.00-4.8 [facility] Comment on above: Performed By: #### T SH3, FE, TIBC, CMP, CBC #### [place] [address] [place] #### CELIAC #### [facility] , Lymphocytes/100 leukocytes i n Blood by Automated countOrdered By: Clarence Vines on 03-29-2025 Lymphocytes/100 WBC (Bld) 17.9 % Normal . [facility] Comment on above: Performed By: #### T SH3, FE, TIBC, CMP, CBC #### [place] [address] [place] #### CELIAC #### [facility] , MCH [Entitic mass] by Automa cal countOrdered By: Clarence Vines on 03-29-2025 MCH (RBC) [Entitic mass] 29.0 pg Normal 24.7-34.3 [facility] Comment on above: Performed By: #### T SH3, FE, TIBC, CMP, CBC #### [place] [address] [place] #### CELIAC #### [facility] , MCHC Auto (RBC) [Mass/Vol]Or dered By: Clarence Vines on 03-29-2025 MCHC (RBC) [Mass/Vol] 33.0 g/dL 32.0-35.0 [facility] MCV [Entitic volume] by Auto mated countOrdered By: Clarence Vines on 03-29-2025 MCV (RBC) [Entitic vol] 87.9 fL Normal 80-100 [facility] Comment on above: Performed By: #### T SH3, FE, TIBC, CMP, CBC #### [place] [address] [place] #### CELIAC #### [facility] , Monocytes [#/volume] in Bloo d by Automated countOrdered By: Clarence Vines on 03-29-2025 Monocytes (Bld) [#/Vol] 0.5 10*3/uL Normal 0.0-0.8 [facility] Comment on above: Performed By: #### T SH3, FE, TIBC, CMP, CBC #### [place] [address] [place] #### CELIAC #### [facility] , Monocytes/100 leukocytes in Blood by Automated countOrdered By: Clarence Vines on 03-29-2025 Monocytes/100 WBC (Bld) 11.2 % Normal . [facility] Comment on above: Performed By: #### T SH3, FE, TIBC, CMP, CBC #### [place] [address] [place] #### CELIAC #### [facility] , Neutrophils [#/volume] in Bl ood by Automated countOrdered By: Clarence Vines on 03-29-2025 Neutrophils (Bld) [#/Vol] 3.1 10*3/uL Normal 1.8-7.7 [facility] Comment on above: Performed By: #### T SH3, FE, TIBC, CMP, CBC #### [facility] [address] [place] [address] [place] #### CELIAC #### [facility] , Neutrophils/100 leukocytes i n Blood by Automated countOrdered By: Clarence Vines on 03-29-2025 Neutrophils/100 WBC (Bld) 66.5 % Normal . [facility] Comment on above: Performed By: #### T SH3, FE, TIBC, CMP, CBC #### [facility] [address] [place] [address] [place] #### CELIAC #### [facility] , No Panel InformationOrdered By: Clarence Vines on 03-29-2025 Estimated GFR (CKD-EPI) > 60.0 mL/Min [facility] Creatinine Clearance (Chem 53.66 [facility] Nucleated erythrocytes [Pres ence] in Blood by Automated countOrdered By: Clarence Vines on 03-29-2025 Nucleated RBC Auto Ql (Bld) 0.0 /100{WBC} 0-0.5 [facility] Platelet mean volume [Entiti c volume] in Blood by Automated countOrdered By: Clarence Vines on 03-29-2025 Platelet mean volume (Bld) [Entitic vol] 8.3 fL Normal 6.3-10.7 [facility] Comment on above: Performed By: #### T SH3, FE, TIBC, CMP, CBC #### [facility] [address] [place] [address] [place] #### CELIAC #### [facility] , Platelets [#/volume] in Bloo d by Automated countOrdered By: Clarence Vines on 03-29-2025 Platelets (Bld) [#/Vol] 118 10*3/uL Low 150-450 [facility] Comment on above: Performed By: #### T SH3, FE, TIBC, CMP, CBC #### [place] [address] [place] #### CELIAC #### [facility] , Potassium [Moles/volume] in Serum or PlasmaOrdered By: Clarence Vines on 03-29-2025 Potassium [Moles/Vol] 4.4 mmol/L Normal 3.5-5.1 [facility] Comment on above: Performed By: #### T SH3, FE, TIBC, CMP, CBC #### [place] [address] [place] #### CELIAC #### [facility] , Protein [Mass/volume] in Ser um or PlasmaOrdered By: Clarence Vines on 03-29-2025 Protein [Mass/Vol] 7.4 g/dL Normal 6.4-8.9 [facility] Comment on above: Performed By: #### T SH3, FE, TIBC, CMP, CBC #### [facility] [address] [place] [address] #### CELIAC #### [facility] , Serum globulin measurement b y calculation (mass/volume)Ordered By: Clarence Vines on 03-29-2025 Globulin (S) [Mass/Vol] 3.4 g/dL [facility] Comment on above: Performed By: #### T SH3, FE, TIBC, CMP, CBC #### [place] [address] [place] #### CELIAC #### [facility] , Serum or plasma albumin/glob ulin mass ratioOrdered By: Clarence Vines on 03-29-2025 Albumin/Globulin [Mass ratio] 1.2 {ratio} [facility] Comment on above: Performed By: #### T SH3, FE, TIBC, CMP, CBC #### [address] [place] [address] [place] #### CELIAC #### [facility] , Serum or plasma anion gap de terminationOrdered By: Clarence Vines on 03-29-2025 Anion gap [Moles/Vol] 7.9 mmol/L Normal 6.0-15.0 [facility] Comment on above: Performed By: #### T SH3, FE, TIBC, CMP, CBC #### [facility] [address] [place] [address] [place] #### CELIAC #### [facility] , Sodium [Moles/volume] in Ser um or PlasmaOrdered By: Clarence Vines on 03-29-2025 Sodium [Moles/Vol] 139 mmol/L Normal 136-145 [facility] Comment on above: Performed By: #### T SH3, FE, TIBC, CMP, CBC #### [facility] [address] [place] [address] #### CELIAC #### [facility] , Urea nitrogen [Mass/volume] in Serum or PlasmaOrdered By: Clarence Vines on 03-29-2025 Urea nitrogen [Mass/Vol] 16 mg/dL Normal 7-25 [facility] Comment on above: Performed By: #### T SH3, FE, TIBC, CMP, CBC #### [facility] [address] [place] [address] [place] #### CELIAC #### [facility] , CNNURSEon 03-27-2025 CNNURSE Normal [facility] CNNURSEon 03-20-2025 CNNURSE Normal [facility] CNNURSEon 03-16-2025 CNN[facility] Normal [facility] CNNURSEon 03-13-2025 [facility] Normal [facility] [place] 125on 03-07-2025 CANCER ANTIGEN 125 174 0.0 - 38.1 [facility] Comment on above: [facility] [employer] El ectrochemiluminescence Immunoassay (ECLIA) Values obtained with different assay methods or kits cannot be used interchangeably. Results cannot be interpreted as absolute evidence of the presence or absence of malignant disease. Performed at: - [facility] [id number] Asp Developer: Lj Solano PhD, Phone: [phone] [facility] CARCINOEMBRYONIC ANTIGENon 0 03-05-2025 [facility] CBC W Auto Differential pane l (Bld)on 03-05-2025 Basophils (Bld) [#/Vol] 0.1 10*3/uL 0.0 - 0.2 10*3/uL [facility] Basophils/100 WBC Manual cnt (Syn fld) 0.9 % . [facility] Eosinophils (Bld) [#/Vol] 0.1 10*3/uL 0.0 - 0.45 10*3/uL [facility] Eosinophils/100 WBC Manual cnt (Syn fld) 0.9 % . [facility] Erythrocyte distribution width (RBC) [Ratio] 13.7 % 11.9 - 15.3 % [facility] Hematocrit (Bld) [Volume fraction] 29.4 % Low 34.0 - 46.4 % [facility] Hemoglobin (Bld) [Mass/Vol] 9.9 g/dL Low 11.8 - 15.4 g/dL [facility] Interpretation and review of laboratory results Abnormal [facility] Lymphocytes (Bld) [#/Vol] 0.6 10*3/uL Low 1.00 - 4.8 10*3/uL [facility] Lymphocytes/100 WBC Manual cnt (Syn fld) 7.9 % . [facility] MCH (RBC) [Entitic mass] 28.4 pg 24.7 - 34.3 pg [facility] MCHC (RBC) [Mass/Vol] 33.6 g/dL 32.0 - 35.0 g/dL [facility] MCV (RBC) [Entitic vol] 84.3 fL 80 - 100 fL [facility] Monocytes (Bld) [#/Vol] 0.5 10*3/uL 0.0 - 0.8 10*3/uL [facility] Monocytes+Macrophages/ 100 WBC Manual cnt (Syn fld) 7.3 % . [facility] Neutrophils (Bld) [#/Vol] 5.8 10*3/uL 1.8 - 7.7 10*3/uL [facility] Neutrophils/100 WBC Manual cnt (Syn fld) 83 % . [facility] NRBC 0.1 /100{WBC} 0 - 0.5 /100{WBC} [facility] Platelet mean volume (Bld) [Entitic vol] 8.4 fL 6.3 - 10.7 fL [facility] Platelets (Bld) [#/Vol] 357 10*3/uL 150 - 450 10*3/uL [facility] RBC LM.HPF (Urine sed) [#/Area] 3.48 10*6/uL Low 3.60 - 5.00 10*6/uL [facility] WBC (Bld) [#/Vol] 7 10*3/uL 3.8 - 11.6 10*3/uL [facility] WBC LM.HPF (Urine sed) [#/Area] 7 10*3/uL 3.8 - 11.6 10*3/uL [facility] Cancer Antigen 125on 025 Cancer Antigen 125 174.0 Normal 0.0-38.1 [facility] Comment on above: Result Comment: [employer] Electrochemiluminescence Immunoassay (ECLIA) Values obtained with different assay methods or kits cannot be used interchangeably. Results cannot be interpreted as absolute evidence of the presence or absence of malignant disease. Performed at: [facility] [address] [id number] Asp Developer: Lj Solano PhD, Phone: [phone] PERFORMED BY: [place] [address] PATHOLOGIST BASE DRAW OPERATOR MARISEL MANRIQUE M.D. Performed By: #### T SH3, FE, TIBC, CMP, CBC #### [facility] [address] [place] [address] #### CELIAC #### [facility] , Complete Blood Count Auto Di ff03-05-2025 Basophils (Bld) [#/Vol] 0.1 10*3/uL Normal 0.0-0.2 [facility] Comment on above: Result Comment: PERF ORMED BY: [place] [address] PATHOLOGIST BASE DRAW OPERATOR MARISEL S BURTON M.D. Performed By: #### T SH3, FE, TIBC, CMP, CBC #### [place] [address] [place] #### CELIAC #### [facility] , Basophils/100 WBC (Bld) 0.9 % Normal . [facility] Comment on above: Performed By: #### T SH3, FE, TIBC, CMP, CBC #### [place] [address] [place] #### CELIAC #### [facility] , Eosinophils (Bld) [#/Vol] 0.1 10*3/uL Normal 0.0-0.45 [facility] Comment on above: Performed By: #### T SH3, FE, TIBC, CMP, CBC #### [address] #### CELIAC #### [facility] , Eosinophils/100 WBC (Bld) 0.9 % Normal . [facility] Comment on above: Performed By: #### T SH3, FE, TIBC, CMP, CBC #### [place] [address] [place] #### CELIAC #### [facility] , Erythrocyte distribution width (RBC) [Ratio] 13.7 % Normal 11.9-15.3 [facility] Comment on above: Performed By: #### T SH3, FE, TIBC, CMP, CBC #### [place] [address] [place] #### CELIAC #### [facility] , Hematocrit (Bld) [Volume fraction] 29.4 % Low 34.0-46.4 [facility] Comment on above: Performed By: #### T SH3, FE, TIBC, CMP, CBC #### [place] [address] [place] #### CELIAC #### [facility] , Hemoglobin (Bld) [Mass/Vol] 9.9 g/dL Low 11.8-15.4 [facility] Comment on above: Performed By: #### T SH3, FE, TIBC, CMP, CBC #### [place] [address] [place] #### CELIAC #### [facility] , Lymphocytes (Bld) [#/Vol] 0.6 10*3/uL Low 1.00-4.8 [facility] Comment on above: Performed By: #### T SH3, FE, TIBC, CMP, CBC #### [address] #### CELIAC #### [facility] , Lymphocytes/100 WBC (Bld) 7.9 % Normal . [facility] Comment on above: Performed By: #### T SH3, FE, TIBC, CMP, CBC #### [address] #### CELIAC #### [facility] , MCH (RBC) [Entitic mass] 28.4 pg Normal 24.7-34.3 [facility] Comment on above: Performed By: #### T SH3, FE, TIBC, CMP, CBC #### [address] #### CELIAC #### [facility] , MCV (RBC) [Entitic vol] 84.3 fL Normal 80-100 [facility] Comment on above: Performed By: #### T SH3, FE, TIBC, CMP, CBC #### [place] [address] [place] #### CELIAC #### [facility] , Mean Corpuscular HGB Conc 33.6 g/dL Normal 32.0-35.0 [facility] Comment on above: Performed By: #### T SH3, FE, TIBC, CMP, CBC #### [place] [address] [place] #### CELIAC #### [facility] , Monocytes (Bld) [#/Vol] 0.5 10*3/uL Normal 0.0-0.8 [facility] Comment on above: Performed By: #### T SH3, FE, TIBC, CMP, CBC #### [address] #### CELIAC #### [facility] , Monocytes/100 WBC (Bld) 7.3 % Normal . [facility] Comment on above: Performed By: #### T SH3, FE, TIBC, CMP, CBC #### [place] [address] [place] #### CELIAC #### [facility] , Neutrophils (Bld) [#/Vol] 5.8 10*3/uL Normal 1.8-7.7 [facility] Comment on above: Performed By: #### T SH3, FE, TIBC, CMP, CBC #### [place] [address] [place] #### CELIAC #### [facility] , Neutrophils/100 WBC (Bld) 83.0 % Normal . [facility] Comment on above: Performed By: #### T SH3, FE, TIBC, CMP, CBC #### [address] #### CELIAC #### [facility] , NRBC% 0.1 /100{WBC} Normal 0-0.5 [facility] Comment on above: Performed By: #### T SH3, FE, TIBC, CMP, CBC #### [place] [address] [place] #### CELIAC #### [facility] , Platelet mean volume (Bld) [Entitic vol] 8.4 fL Normal 6.3-10.7 [facility] Comment on above: Performed By: #### T SH3, FE, TIBC, CMP, CBC #### [address] #### CELIAC #### [facility] , Platelets (Bld) [#/Vol] 357 10*3/uL Normal 150-450 [facility] Comment on above: Performed By: #### T SH3, FE, TIBC, CMP, CBC #### [place] [address] [place] #### CELIAC #### [facility] , RBC (Bld) [#/Vol] 3.48 10*6/uL Low 3.60-5.00 [facility] Comment on above: Performed By: #### T SH3, FE, TIBC, CMP, CBC #### [address] #### CELIAC #### [facility] , WBC (Bld) [#/Vol] 7.0 10*3/uL Normal 3.8-11.6 [facility] Comment on above: Performed By: #### T SH3, FE, TIBC, CMP, CBC #### [place] [address] [place] #### CELIAC #### [facility] , Comprehensive Metabolic Pane alex 03-05-2025 Albumin [Mass/Vol] 3.5 g/dL Normal 3.5-5.7 [facility] Comment on above: Performed By: #### T SH3, FE, TIBC, CMP, CBC #### [place] [address] [place] #### CELIAC #### [facility] , Albumin/Globulin [Mass ratio] 1.0 {ratio} Normal [facility] Comment on above: Performed By: #### T SH3, FE, TIBC, CMP, CBC #### [place] [address] [place] #### CELIAC #### [facility] , ALP [Catalytic activity/Vol] 70 U/L Normal 34-104 [facility] Comment on above: Performed By: #### T SH3, FE, TIBC, CMP, CBC #### [place] [address] [place] #### CELIAC #### [facility] , ALT [Catalytic activity/Vol] 13 U/L Normal 7-52 [facility] Comment on above: Performed By: #### T SH3, FE, TIBC, CMP, CBC #### [place] [address] [place] #### CELIAC #### [facility] , Anion gap [Moles/Vol] 10.6 mmol/L Normal 6.0-15.0 e [facility] Comment on above: Performed By: #### T SH3, FE, TIBC, CMP, CBC #### [address] #### CELIAC #### [facility] , AST [Catalytic activity/Vol] 19 U/L Normal 13-39 [facility] Comment on above: Performed By: #### T SH3, FE, TIBC, CMP, CBC #### [place] [address] [place] #### CELIAC #### [facility] , Bilirubin [Mass/Vol] 0.3 mg/dL Normal 0.3-1.0 [facility] Comment on above: Performed By: #### T SH3, FE, TIBC, CMP, CBC #### [place] [address] [place] #### CELIAC #### [facility] , Calcium [Mass/Vol] 8.8 mg/dL Normal 8.6-10.3 [facility] Comment on above: Performed By: #### T SH3, FE, TIBC, CMP, CBC #### [place] [address] [place] #### CELIAC #### [facility] , Chloride [Moles/Vol] 101 mmol/L Normal 98-107 [facility] Comment on above: Performed By: #### T SH3, FE, TIBC, CMP, CBC #### [place] [address] [place] #### CELIAC #### [facility] , CO2 [Moles/Vol] 31.1 mmol/L High 21.0-31.0 [facility] Comment on above: Performed By: #### T SH3, FE, TIBC, CMP, CBC #### [place] [address] [place] #### CELIAC #### [facility] , Creatinine [Mass/Vol] 0.91 mg/dL Normal 0.60-1.20 [facility] Comment on above: Performed By: #### T SH3, FE, TIBC, CMP, CBC #### [place] [address] [place] #### CELIAC #### [facility] , Creatinine Clr Calc Pharmacy 47.21 Normal [facility] Comment on above: Performed By: #### T SH3, FE, TIBC, CMP, CBC #### [place] [address] [place] #### CELIAC #### [facility] , GFR/1.73 sq M.predicted MDRD (S/P/Bld) [Vol rate/Area] mL/min/{1.73_m2} Normal [facility] Comment on above: Performed By: #### T SH3, FE, TIBC, CMP, CBC #### [place] [address] [place] #### CELIAC #### [facility] , Globulin (S) [Mass/Vol] 3.6 g/dL Normal [facility] Comment on above: Performed By: #### T SH3, FE, TIBC, CMP, CBC #### [place] [address] [place] #### CELIAC #### [facility] , Glucose [Mass/Vol] 76 mg/dL Normal 70-100 [facility] Comment on above: Result Comment: [facility] Glucose Reference Range is dependent on time and content of last meal. Glucose of more than 200 mg/dL in a nonstressed, ambulatory subject supports the diagnosis of Diabetes Mellitus. ADA recommended reference range Performed By: #### T SH3, FE, TIBC, CMP, CBC #### [place] [address] [place] #### CELIAC #### [facility] , Potassium [Moles/Vol] 4.7 mmol/L Normal 3.5-5.1 [facility] Comment on above: Performed By: #### T SH3, FE, TIBC, CMP, CBC #### [address] #### CELIAC #### [facility] , Protein [Mass/Vol] 7.1 g/dL Normal 6.4-8.9 [facility] Comment on above: Performed By: #### T SH3, FE, TIBC, CMP, CBC #### [place] [address] [place] #### CELIAC #### [facility] , Sodium [Moles/Vol] 138 mmol/L Normal 136-145 [facility] Comment on above: Performed By: #### T SH3, FE, TIBC, CMP, CBC #### [place] [address] [place] #### CELIAC #### [facility] , Urea nitrogen [Mass/Vol] 17 mg/dL Normal 7-25 [facility] Comment on above: Performed By: #### T SH3, FE, TIBC, CMP, CBC #### [place] [address] [place] #### CELIAC #### [facility] , Comprehensive metabolic pane alex 03-05-2025 Albumin [Mass/Vol] 3.5 g/dL 3.5 - 5.7 g/dL [facility] Albumin/Globulin [Mass ratio] 1 {ratio} [facility] ALP [Catalytic activity/Vol] 70 U/L 34 - 104 U/L [facility] ALT [Catalytic activity/Vol] 13 U/L 7 - 52 U/L [facility] Anion gap [Moles/Vol] 10.6 mmol/L 6.0 - 15.0 meq/L [facility] AST [Catalytic activity/Vol] 19 U/L 13 - 39 U/L [facility] Bilirubin [Mass/Vol] 0.3 mg/dL 0.3 - 1 .0 mg/dL [facility] Calcium [Mass/Vol] 8.8 mg/dL 8.6 - 10. 3 mg/dL [facility] Chloride [Moles/Vol] 101 mmol/L 98 - 10 7 mmol/L [facility] CO2 [Moles/Vol] 31.1 mmol/L High 21.0 - 31.0 mmol/L [facility] Creatinine (U) [Mass/Vol] 0.91 mg/dL 0.60 - 1.20 mg/dL [facility] CREATININE CLR CALC PHARMACY 47.21 [facility] ESTIMATED GFR mL/Min [facility] Globulin (S) [Mass/Vol] 3.6 g/dL [facility] Glucose [Mass/Vol] 76 mg/dL 70 - 100 mg/dL [facility] Comment on above: Random Glucose Refer ence Range is dependent on time and content of last meal. Glucose of more than 200 mg/dL in a nonstressed, ambulatory subject supports the diagnosis of Diabetes Mellitus. ADA recommended reference range Interpretation and review of laboratory results Abnormal [facility] Potassium [Moles/Vol] 4.7 mmol/L 3.5 - 5.1 mmol/L [facility] Protein [Mass/Vol] 7.1 g/dL 6.4 - 8.9 g/dL [facility] Sodium [Moles/Vol] 138 mmol/L 136 - 145 mmol/L [facility] Urea nitrogen [Mass/Vol] 17 mg/dL 7 - 25 mg/dL [facility] Lipaseon 03-05-2025 Lipase [Catalytic activity/Vol] 28 U/L 11.0 - 82.0 U/L [facility] Lipase [Enzymatic activity/v olume] in Serum or PlasmaOrdered By: Clarence Vines on 03-05-2025 Lipase [Catalytic activity/Vol] 28.0 U/L Normal 11.0-82.0 [facility] Comment on above: Result Comment: PERF ORMED BY: [place] [address] PATHOLOGIST BASE DRAW OPERATOR MARISEL MANRIQUE M.D. Performed By: #### T SH3, FE, TIBC, CMP, CBC #### [facility] [address] [place] [address] [place] #### CELIAC #### [facility] , No Panel Informationon 03-05 [facility] Serum or plasma cancer antig en 125 (CA-125) measurement (units/volume)Ordered By: Clarence Vines on 03-05-2025 Cancer Ag 125 Qn 174.0 [arb'U]/mL High 0.0-38.1 [facility] Comment on above: [facility] El ectrochemiluminescence Immunoassay(ECLIA)Values obtained with different assay methods or kits cannotbe used interchangeably. Results cannot be interpreted asabsolute evidence of the presence or absence of malignantdisease.Performed at: [facility] [address] [id number] Director: Lj Solano PhD, Phone: [phone] Alanine aminotransferase [En zymatic activity/volume] in Serum or PlasmaOrdered By: Javad Cruz on 02-17-2025 ALT [Catalytic activity/Vol] Alanine aminotransferase [Enzymatic activity/volume] in Serum or Plasma [address] [place] [address] ALT [Catalytic activity/Vol] 10 U/L Normal [address] [place] [address] Comment on above: Performed By: #### T SH3, FE, TIBC, CMP, CBC #### [facility] [address] [place] [address] [place] #### CELIAC #### [facility] , Albumin [Mass/volume] in Ser um or Plasma by Bromocresol green (BCG) dye binding methoOrdered By: Javad Cruz on 02-17-2025 Albumin BCG dye [Mass/Vol] Albumin [Mass/volume] in Serum or Plasma by Bromocresol green (BCG) dye binding metho Low 3.5-5.7 [facility] Albumin BCG dye [Mass/Vol] 3.4 g/dL Low 3.5-5.7 [facility] Alkaline phosphatase [Enzyma tic activity/volume] in Serum or PlasmaOrdered By: Javad Cruz on 02-17-2025 ALP [Catalytic activity/Vol] Alkaline phosphatase [Enzymatic activity/volume] in Serum or Plasma 34-104 [facility] ALP [Catalytic activity/Vol] 68 U/L Normal 34-104 [facility] Comment on above: Performed By: #### T SH3, FE, TIBC, CMP, CBC #### [facility] [address] [place] [address] #### CELIAC #### [facility] , Aspartate aminotransferase [ Enzymatic activity/volume] in Serum or PlasmaOrdered By: Javad Cruz on 02-17-2025 AST [Catalytic activity/Vol] Aspartate aminotransferase [Enzymatic activity/volume] in Serum or Plasma 13-39 [facility] AST [Catalytic activity/Vol] 26 U/L Normal 39 [facility] Comment on above: Performed By: #### T SH3, FE, TIBC, CMP, CBC #### [facility] [address] [place] [address] [place] #### CELIAC #### [facility] , Basophils Auto (Bld) [#/Vol] Ordered By: Javad Cruz on 02-17-2025 Basophils (Bld) [#/Vol] Automated basophil count 0.0-0.2 [facility] Comment on above: --- 02/17/25 0506 -- -Baso# (Auto) previously reported as: 0.0 x10E3/uL Basophils [#/volume] in Bloo d by Automated countOrdered By: Javad Cruz on 02-17-2025 Basophils (Bld) [#/Vol] 0.0 10*3/uL Normal 0.0-0.2 [facility] Comment on above: --- 02/17/25 0506 -- -Baso# (Auto) previously reported as: 0.0 x10E3/uL Result Comment: --- 02/17/25 0506 --- Baso# (Auto) previously reported as: 0.0 x10E3/uL PERFORMED BY: [place] [address] PATHOLOGIST BASE DRAW OPERATOR MARISEL MANRIQUE M.D. Performed By: #### T SH3, FE, TIBC, CMP, CBC #### [place] [address] [place] #### CELIAC #### [facility] , Basophils/100 WBC Auto (Bld) Ordered By: Javad Cruz on 02-17-2025 Basophils/100 WBC (Bld) Automated basophil % . [facility] Comment on above: --- 02/17/25 0506 -- -Baso % (Auto) previously reported as: 0.0 % Basophils/100 leukocytes in Blood by Automated countOrdered By: Javad Cruz on 02-17-2025 Basophils/100 WBC (Bld) 0.2 % Normal . [facility] Comment on above: --- 02/17/25 0506 -- -Baso % (Auto) previously reported as: 0.0 % Result Comment: --- 02/17/25 0506 --- Baso % (Auto) previously reported as: 0.0 % Performed By: #### T SH3, FE, TIBC, CMP, CBC #### [place] [address] [place] #### CELIAC #### [facility] , Bilirubin.total [Mass/volume ] in Serum or PlasmaOrdered By: Javad Cruz on 02-17-2025 Bilirubin [Mass/Vol] Bilirubin.total [Mass/volume] in Serum or Plasma 0.3-1.0 [facility] Bilirubin [Mass/Vol] 0.7 mg/dL Normal 0.3-1.0 [facility] Comment on above: Performed By: #### T SH3, FE, TIBC, CMP, CBC #### [place] [address] [place] #### CELIAC #### [facility] , Calcium [Mass/volume] in Ser um or PlasmaOrdered By: Javad Cruz on 02-17-2025 Calcium [Mass/Vol] Calcium [Mass/volume ] in Serum or Plasma 8.6-10.3 [facility] Calcium [Mass/Vol] 8.6 mg/dL Normal 8.6-10.3 [facility] Comment on above: Performed By: #### T SH3, FE, TIBC, CMP, CBC #### [facility] [address] [place] [address] [place] #### CELIAC #### [facility] , Carbon dioxide, total [Moles /volume] in Serum or PlasmaOrdered By: Javad Cruz on 02-17-2025 CO2 [Moles/Vol] Carbon dioxide, tota l [Moles/volume] in Serum or Plasma 21.0-31.0 [facility] CO2 [Moles/Vol] 22.9 mmol/L Normal 21.0-31.0 [facility] Comment on above: Performed By: #### T SH3, FE, TIBC, CMP, CBC #### [facility] [address] [place] [address] [place] #### CELIAC #### [facility] , Chloride [Moles/volume] in S yin or PlasmaOrdered By: Javad Cruz on 02-17-2025 Chloride [Moles/Vol] Chloride [Moles/vol ume] in Serum or Plasma Low 98-107 [facility] Chloride [Moles/Vol] 97 mmol/L Low 98-107 [facility] Comment on above: Performed By: #### T SH3, FE, TIBC, CMP, CBC #### [facility] [address] [place] [address] [place] #### CELIAC #### [facility] , Complete Blood Count Auto Di ffon 02-17-2025 Mean Corpuscular HGB Conc 33.9 g/dL Normal 32.0-35.0 [facility] Comment on above: Result Comment: --- 02/17/25 0506 --- MCHC previously reported as: 34.8 g/dL Performed By: #### T SH3, FE, TIBC, CMP, CBC #### [place] [address] [place] #### CELIAC #### [facility] , Monocyte Distribution Width Not performed Normal 0.00-20.00 [facility] Comment on above: Result Comment: Unab le to calculate MDW because the Absolute Monocyte Count is <0.8. Unable to calculate MDW because the Absolute Monocyte Count is <0.8. --- 02/17/25 0506 --- MDW previously reported as: Test Not Performed % Unable to calculate MDW because the Absolute Monocyte Count is <0.8. Performed By: #### T SH3, FE, TIBC, CMP, CBC #### [address] #### CELIAC #### [facility] , NRBC% 0.1 /100{WBC} Normal 0-0.5 [facility] Comment on above: Result Comment: --- 02/17/256 --- NRBC% previously reported as: 0.0 /100 WBC Performed By: #### T SH3, FE, TIBC, CMP, CBC #### [place] [address] [place] #### CELIAC #### [facility] , Comprehensive Metabolic Pane alex 02-17-2025 Albumin [Mass/Vol] 3.4 g/dL Low 3.5-5.7 [facility] Comment on above: Performed By: #### T SH3, FE, TIBC, CMP, CBC #### [place] [address] [place] #### CELIAC #### [facility] , Creatinine Clr Calc Pharmacy 51.06 Normal [facility] Comment on above: Result Comment: PERF ORMED BY: [place] [address] PATHOLOGIST BASE DRAW OPERATOR MARISEL MANRIQUE M.D. Performed By: #### T SH3, FE, TIBC, CMP, CBC #### [facility] [address] [place] [address] [place] #### CELIAC #### [facility] , GFR/1.73 sq M.predicted MDRD (S/P/Bld) [Vol rate/Area] mL/min/{1.73_m2} Normal [facility] Comment on above: Performed By: #### T SH3, FE, TIBC, CMP, CBC #### [facility] [address] [place] [address] #### CELIAC #### [facility] , Creatine kinase [Enzymatic a ctivity/volume] in Serum or PlasmaOrdered By: Javad Cruz on 02-17-2025 CK [Catalytic activity/Vol] Creatine kinase [Enzymatic activity/volume] in Serum or Plasma 30- [facility] CK [Catalytic activity/Vol] 36 U/L Normal 30- [facility] Comment on above: Result Comment: PERF ORMED BY: [place] [address] PATHOLOGIST BASE DRAW OPERATOR MARISEL MANRIQUE M.D. Performed By: #### T SH3, FE, TIBC, CMP, CBC #### [address] #### CELIAC #### [facility] , Creatinine [Mass/volume] in Serum or PlasmaOrdered By: Javad Cruz on 02-17-2025 Creatinine [Mass/Vol] Creatinine [Mass/v olume] in Serum or Plasma 0.60-1.20 [facility] Creatinine [Mass/Vol] 0.87 mg/dL Normal 0.60-1.20 [facility] Comment on above: Performed By: #### T SH3, FE, TIBC, CMP, CBC #### [place] [address] [place] #### CELIAC #### [facility] , Eosinophils Auto (Bld) [#/Vo l]Ordered By: Javad Cruz on 05-31-2025 Eosinophils (Bld) [#/Vol] Automated eosinophil count 0.0-0.45 [facility] Comment on above: --- 02/17/25 0506 -- -Eos # (Auto) previously reported as: 0.2 x10E3/uL Eosinophils [#/volume] in Bl ood by Automated countOrdered By: Javad Cruz on 02-17-2025 Eosinophils (Bld) [#/Vol] 0.1 10*3/uL Normal 0.0-0.45 [facility] Comment on above: --- 02/17/25 050 -- -Eos # (Auto) previously reported as: 0.2 x10E3/uL Result Comment: --- 02/17/25 050 --- Eos # (Auto) previously reported as: 0.2 x10E3/uL Performed By: #### T SH3, FE, TIBC, CMP, CBC #### [facility] [address] [place] [address] [place] #### CELIAC #### [facility] , Eosinophils/100 WBC Auto (Bl d)Ordered By: Javad Cruz on 02-17-2025 Eosinophils/100 WBC (Bld) Automated eosinophil % . [facility] Comment on above: --- 02/17/25 050 -- -Eos % (Auto) previously reported as: 1.6 % Eosinophils/100 leukocytes i n Blood by Automated countOrdered By: Javad Cruz on 02-17-2025 Eosinophils/100 WBC (Bld) 1.3 % Normal . [facility] Comment on above: --- 02/17/25 0506 -- -Eos % (Auto) previously reported as: 1.6 % Result Comment: --- 02/17/25 050 --- Eos % (Auto) previously reported as: 1.6 % Performed By: #### T SH3, FE, TIBC, CMP, CBC #### [facility] [address] [place] [address] [place] #### CELIAC #### [facility] , Erythrocyte distribution wid th Auto (RBC) [Ratio]Ordered By: Javad Cruz on 02-17-2025 Erythrocyte distribution width (RBC) [Ratio] Erythrocyte distribution width [Ratio] by Automated count 11.9-15.3 [facility] Comment on above: --- 02/17/25505 -- -RDW previously reported as: 13.6 % Erythrocyte distribution wid th [Ratio] by Automated countOrdered By: Javad Cruz on 02-17-2025 Erythrocyte distribution width (RBC) [Ratio] 13.6 % Normal 11.9-15.3 [facility] Comment on above: --- 02/17/25505 -- -RDW previously reported as: 13.6 % Result Comment: --- 02/17/25505 --- RDW previously reported as: 13.6 % Performed By: #### T SH3, FE, TIBC, CMP, CBC #### [facility] [address] [place] [address] #### CELIAC #### [facility] , Erythrocytes [#/volume] in B lood by Automated countOrdered By: Javad Cruz on 02-17-2025 RBC (Bld) [#/Vol] 4.03 10*6/uL Normal 3.60-5.00 [facility] Comment on above: --- 02/17/25505 -- -RBC previously reported as: 4.07 x10E6/uL Result Comment: --- 02/17/25505 --- RBC previously reported as: 4.07 x10E6/uL Performed By: #### T SH3, FE, TIBC, CMP, CBC #### [facility] [address] [place] [address] [place] #### CELIAC #### [facility] , Globulin Calc (S) [Mass/Vol] Ordered By: Javad Cruz on 02-17-2025 Globulin (S) [Mass/Vol] Serum globulin measurement by calculation (mass/volume) [facility] Glucose [Mass/volume] in Ser um or PlasmaOrdered By: Javad Cruz on 02-17-2025 Glucose [Mass/Vol] Glucose [Mass/volume ] in Serum or Plasma High 70-100 [facility] Comment on above: ADA recommended refe rence rangeRandom Glucose Reference Range is dependent on time and content of last meal. Glucose of more than 200 mg/dL in a nonstressed, ambulatory subject supports the diagnosis of Diabetes Mellitus. Glucose [Mass/Vol] 106 mg/dL High 70-100 [facility] Comment on above: ADA recommended refe rence rangeRandom Glucose Reference Range is dependent on time and content of last meal. Glucose of more than 200 mg/dL in a nonstressed, ambulatory subject supports the diagnosis of Diabetes Mellitus. Result Comment: Zachary om Glucose Reference Range is dependent on time and content of last meal. Glucose of more than 200 mg/dL in a nonstressed, ambulatory subject supports the diagnosis of Diabetes Mellitus. ADA recommended reference range Performed By: #### T SH3, FE, TIBC, CMP, CBC #### [address] #### CELIAC #### [facility] , Hematocrit Auto (Bld) [Volum e fraction]Ordered By: Javad Cruz on 02-17-2025 Hematocrit (Bld) [Volume fraction] Hematocrit [Volume Fraction] of Blood by Automated count Low 34.0-46.4 [facility] Comment on above: --- 02/17/256 -- -HCT previously reported as: 33.5 L % Hematocrit [Volume Fraction] of Blood by Automated countOrdered By: Javad Cruz on 02-17-2025 Hematocrit (Bld) [Volume fraction] 33.8 % Low 34.0-46.4 [facility] Comment on above: --- 02/17/25 0506 -- -HCT previously reported as: 33.5 L % Result Comment: --- 02/17/25505 --- HCT previously reported as: 33.5 L % Performed By: #### T SH3, FE, TIBC, CMP, CBC #### [facility] [address] [place] [address] [place] #### CELIAC #### [facility] , Hemoglobin [Mass/volume] in BloodOrdered By: Javad Cruz on 02-17-2025 Hemoglobin (Bld) [Mass/Vol] Hemoglobin [Mass/volume] in Blood Low 11.8-15.4 [facility] Comment on above: --- 02/17/25505 -- -HGB previously reported as: 11.6 L g/dL Hemoglobin (Bld) [Mass/Vol] 11.5 g/dL Low 11.8-15.4 [facility] Comment on above: --- 02/17/25505 -- -HGB previously reported as: 11.6 L g/dL Result Comment: --- 02/17/25505 --- HGB previously reported as: 11.6 L g/dL Performed By: #### T SH3, FE, TIBC, CMP, CBC #### [facility] [address] [place] [address] #### CELIAC #### [facility] , Leukocytes [#/volume] correc cal for nucleated erythrocytes in Blood by Automated counOrdered By: Javad Cruz on 02-17-2025 WBC corrected for nucl RBC Auto (Bld) [#/Vol] Leukocytes [#/volume] corrected for nucleated erythrocytes in Blood by Automated coun 3.8-11.6 [facility] Comment on above: --- 02/17/25505 -- -WBC previously reported as: 10.1 X10E3/uL WBC corrected for nucl RBC Auto (Bld) [#/Vol] 10.2 10*3/uL 3.8-11.6 [facility] Comment on above: --- 02/17/25505 -- -WBC previously reported as: 10.1 X10E3/uL Leukocytes [#/volume] in Blo od by Automated countOrdered By: Javad Cruz on 02-17-2025 WBC (Bld) [#/Vol] 10.2 10*3/uL Normal 3.8-11.6 [facility] Comment on above: --- 02/17/25505 -- -UNWBC previously reported as: 10.1 x10E3/uL Result Comment: --- 02/17/25505 --- WBC previously reported as: 10.1 X10E3/uL Performed By: #### T SH3, FE, TIBC, CMP, CBC #### [facility] [address] [place] [address] [place] #### CELIAC #### [facility] , Result Comment: --- 02/17/25505 --- UNWBC previously reported as: 10.1 x10E3/uL Lymphocytes Auto (Bld) [#/Vo l]Ordered By: Javad Cruz on 02-17-2025 Lymphocytes (Bld) [#/Vol] Lymphocytes [#/volume] in Blood by Automated count Low 1.00-4.8 [facility] Comment on above: --- 02/17/25505 -- -Lymph # (Auto) previously reported as: 0.2 L x10E3/uL Lymphocytes [#/volume] in Bl ood by Automated countOrdered By: Javad Cruz on 02-17-2025 Lymphocytes (Bld) [#/Vol] 0.2 10*3/uL Low 1.00-4.8 [facility] Comment on above: --- 02/17/25505 -- -Lymph # (Auto) previously reported as: 0.2 L x10E3/uL Result Comment: --- 02/17/25505 --- Lymph # (Auto) previously reported as: 0.2 L x10E3/uL Performed By: #### T SH3, FE, TIBC, CMP, CBC #### [address] #### CELIAC #### [facility] , Lymphocytes/100 WBC Auto (Bl d)Ordered By: Javad Cruz on 02-17-2025 Lymphocytes/100 WBC (Bld) Lymphocytes/100 leukocytes in Blood by Automated count . [facility] Comment on above: --- 02/17/25505 -- -Lymp % (Auto) previously reported as: 2.2 % Lymphocytes/100 leukocytes i n Blood by Automated countOrdered By: Javad Cruz on 02-17-2025 Lymphocytes/100 WBC (Bld) 2.4 % Normal . [facility] Comment on above: --- 02/17/25505 -- -Lymp % (Auto) previously reported as: 2.2 % Result Comment: --- 02/17/25505 --- Lymp % (Auto) previously reported as: 2.2 % Performed By: #### T SH3, FE, TIBC, CMP, CBC #### [facility] [address] [place] [address] [place] #### CELIAC #### [facility] , MCH Auto (RBC) [Entitic mass ]Ordered By: Javad Cruz on 02-17-2025 MCH (RBC) [Entitic mass] MCH [Entitic mass] by Automated count 24.7-34.3 [facility] Comment on above: --- 02/17/25505 -- -MCH previously reported as: 28.6 pg MCH [Entitic mass] by Automa cal countOrdered By: Javad Cruz on 02-17-2025 MCH (RBC) [Entitic mass] 28.5 pg Normal 24.7-34.3 [facility] Comment on above: --- 02/17/25505 -- -MCH previously reported as: 28.6 pg Result Comment: --- 02/17/25505 --- MCH previously reported as: 28.6 pg Performed By: #### T SH3, FE, TIBC, CMP, CBC #### [facility] [address] [place] [address] [place] #### CELIAC #### [facility] , MCHC Auto (RBC) [Mass/Vol]Or dered By: Javad Cruz on 02-17-2025 MCHC (RBC) [Mass/Vol] MCHC [Mass/volume] by Automated count 32.0-35.0 [facility] Comment on above: --- 02/17/25505 -- -MCHC previously reported as: 34.8 g/dL MCHC (RBC) [Mass/Vol] 33.9 g/dL 32.0-35.0 [facility] Comment on above: --- 02/17/25505 -- -MCHC previously reported as: 34.8 g/dL MCV Auto (RBC) [Entitic vol] Ordered By: Javad Cruz on 02-17-2025 MCV (RBC) [Entitic vol] MCV [Entitic volume] by Automated count 80-100 [facility] Comment on above: --- 02/17/25505 -- -MCV previously reported as: 82.3 fl MCV [Entitic volume] by Auto mated countOrdered By: Javad Cruz on 02-17-2025 MCV (RBC) [Entitic vol] 83.9 fL Normal 80-100 [facility] Comment on above: --- 02/17/25505 -- -MCV previously reported as: 82.3 fl Result Comment: --- 02/17/25505 --- MCV previously reported as: 82.3 fl Performed By: #### T SH3, FE, TIBC, CMP, CBC #### [facility] [address] [place] [address] #### CELIAC #### [facility] , Monocyte distribution width [Entitic volume] in Blood by AutomatedOrdered By: Javad Cruz on 02-17-2025 Monocyte distribution width Auto (Bld) [Entitic vol] Monocyte distribution width [Entitic volume] in Blood by Automated 0.00-20.00 [facility] Comment on above: Unable to calculate MDW because the Absolute Monocyte Count is <0.8. Unable to calculate MDW because the Absolute Monocyte Count is <0.8. Unable to calculate MDW because the Absolute Monocyte Count is <0.8. --- 02/17/25505 ---MDW previously reported as: Test Not Performed %Unable to calculate MDW because the Absolute Monocyte Count is <0.8. Monocyte distribution width Auto (Bld) [Entitic vol] Test not performed % 0.00-20.00 [facility] Comment on above: Unable to calculate MDW because the Absolute Monocyte Count is <0.8. Unable to calculate MDW because the Absolute Monocyte Count is <0.8. --- 02/17/25505 ---MDW previously reported as: Test Not Performed %Unable to calculate MDW because the Absolute Monocyte Count is <0.8. Monocytes Auto (Bld) [#/Vol] Ordered By: Javad Cruz on 02-17-2025 Monocytes (Bld) [#/Vol] Automated blood monocyte count 0.0-0.8 [facility] Comment on above: --- 02/17/25505 -- -Cedar # (Auto) previously reported as: 0.1 x10E3/uL Monocytes [#/volume] in Bloo d by Automated countOrdered By: Javad Cruz on 02-17-2025 Monocytes (Bld) [#/Vol] 0.1 10*3/uL Normal 0.0-0.8 [facility] Comment on above: --- 02/17/25505 -- -Cedar # (Auto) previously reported as: 0.1 x10E3/uL Result Comment: --- 02/17/25505 --- Cedar # (Auto) previously reported as: 0.1 x10E3/uL Performed By: #### T SH3, FE, TIBC, CMP, CBC #### [facility] [address] [place] [address] #### CELIAC #### [facility] , Monocytes/100 WBC Auto (Bld) Ordered By: Javad Cruz on 02-17-2025 Monocytes/100 WBC (Bld) Automated monocyte % . [facility] Comment on above: --- 02/17/25505 -- -Cedar % (Auto) previously reported as: 0.6 % Monocytes/100 leukocytes in Blood by Automated countOrdered By: Javad Cruz on 02-17-2025 Monocytes/100 WBC (Bld) 0.6 % Normal . [facility] Comment on above: --- 02/17/25505 -- -Cedar % (Auto) previously reported as: 0.6 % Result Comment: --- 02/17/25505 --- Cedar % (Auto) previously reported as: 0.6 % Performed By: #### T SH3, FE, TIBC, CMP, CBC #### [facility] [address] [place] [address] [place] #### CELIAC #### [facility] , Neutrophils Auto (Bld) [#/Vo l]Ordered By: Javad Cruz on 02-17-2025 Neutrophils (Bld) [#/Vol] Neutrophils [#/volume] in Blood by Automated count High 1.8-7.7 [facility] Comment on above: --- 02/17/25505 -- -Neut # (Auto) previously reported as: 9.6 H x10E3/uL Neutrophils [#/volume] in Bl ood by Automated countOrdered By: Javad Cruz on 02-17-2025 Neutrophils (Bld) [#/Vol] 9.7 10*3/uL High 1.8-7.7 [facility] Comment on above: --- 02/17/25 050 -- -Neut # (Auto) previously reported as: 9.6 H x10E3/uL Result Comment: --- 02/17/25505 --- Neut # (Auto) previously reported as: 9.6 H x10E3/uL Performed By: #### T SH3, FE, TIBC, CMP, CBC #### [facility] [address] [place] [address] #### CELIAC #### [facility] , Neutrophils/100 WBC Auto (Bl d)Ordered By: Javad Cruz on 02-17-2025 Neutrophils/100 WBC (Bld) Automated neutrophil % . [facility] Comment on above: --- 02/17/25505 -- -Neut % (Auto) previously reported as: 95.6 % Neutrophils/100 leukocytes i n Blood by Automated countOrdered By: Javad Cruz on 02-17-2025 Neutrophils/100 WBC (Bld) 95.5 % Normal . [facility] Comment on above: --- 02/17/25505 -- -Neut % (Auto) previously reported as: 95.6 % Result Comment: --- 02/17/25505 --- Neut % (Auto) previously reported as: 95.6 % Performed By: #### T SH3, FE, TIBC, CMP, CBC #### [facility] [address] [place] [address] [place] #### CELIAC #### [facility] , No Panel InformationOrdered By: Javad Cruz on 02-17-2025 Estimated GFR (CKD-EPI) > 60.0 mL/Min [facility] Creatinine Clearance (Chem 51.06 [facility] Nucleated erythrocytes [Pres ence] in Blood by Automated countOrdered By: Javad Cruz on 05-31-2025 Nucleated RBC Auto Ql (Bld) Nucleated erythrocytes [Presence] in Blood by Automated count 0-0.5 [facility] Comment on above: --- 02/17/25505 -- -NRBC% previously reported as: 0.0 /100 WBC Nucleated RBC Auto Ql (Bld) 0.1 /100{WBC} 0-0.5 [facility] Comment on above: --- 02/17/25505 -- -NRBC% previously reported as: 0.0 /100 WBC Platelet mean volume Auto (B ld) [Entitic vol]Ordered By: Javad Cruz on 02-17-2025 Platelet mean volume (Bld) [Entitic vol] Platelet mean volume [Entitic volume] in Blood by Automated count 6.3-10.7 [facility] Comment on above: --- 02/17/25505 -- -MPV previously reported as: 8.6 fl Platelet mean volume [Entiti c volume] in Blood by Automated countOrdered By: Javad Cruz on 02-17-2025 Platelet mean volume (Bld) [Entitic vol] 8.7 fL Normal 6.3-10.7 [facility] Comment on above: --- 02/17/25505 -- -MPV previously reported as: 8.6 fl Result Comment: --- 02/17/25505 --- MPV previously reported as: 8.6 fl Performed By: #### T SH3, FE, TIBC, CMP, CBC #### [address] #### CELIAC #### [facility] , Platelets Auto (Bld) [#/Vol] Ordered By: Javad Cruz on 02-17-2025 Platelets (Bld) [#/Vol] Platelets [#/volume] in Blood by Automated count 150-450 [facility] Comment on above: --- 02/17/25505 -- -Plt previously reported as: 347 x10E3/uL Platelets [#/volume] in Bloo d by Automated countOrdered By: Javad Cruz on 02-17-2025 Platelets (Bld) [#/Vol] 350 10*3/uL Normal 150-450 [facility] Comment on above: --- 02/17/25 0506 -- -Plt previously reported as: 347 x10E3/uL Result Comment: --- 02/17/25 0506 --- Plt previously reported as: 347 x10E3/uL Performed By: #### T SH3, FE, TIBC, CMP, CBC #### [facility] [address] [place] [address] #### CELIAC #### [facility] , Potassium [Moles/volume] in Serum or PlasmaOrdered By: Javad Cruz on 02-17-2025 Potassium [Moles/Vol] Potassium [Moles/v olume] in Serum or Plasma 3.5-5.1 [facility] Potassium [Moles/Vol] 4.1 mmol/L Normal 3.5-5.1 [facility] Comment on above: Performed By: #### T SH3, FE, TIBC, CMP, CBC #### [address] #### CELIAC #### [facility] , Protein [Mass/volume] in Ser um or PlasmaOrdered By: Javad Cruz on 02-17-2025 Protein [Mass/Vol] Protein [Mass/volume ] in Serum or Plasma 6.4-8.9 [facility] Protein [Mass/Vol] 7.1 g/dL Normal 6.4-8.9 [facility] Comment on above: Performed By: #### T SH3, FE, TIBC, CMP, CBC #### [place] [address] [place] #### CELIAC #### [facility] , RBC Auto (Bld) [#/Vol]Ordere d By: Javad Cruz on 02-17-2025 RBC (Bld) [#/Vol] Erythrocytes [#/volu me] in Blood by Automated count 3.60-5.00 [facility] Comment on above: --- 02/17/25 0506 -- -RBC previously reported as: 4.07 x10E6/uL Serum globulin measurement b y calculation (mass/volume)Ordered By: Javad Cruz on 02-17-2025 Globulin (S) [Mass/Vol] 3.7 g/dL Normal [facility] Comment on above: Performed By: #### T SH3, FE, TIBC, CMP, CBC #### [facility] [address] [place] [address] [place] #### CELIAC #### [facility] , Serum or plasma albumin/glob ulin mass ratioOrdered By: Javad Cruz on 02-17-2025 Albumin/Globulin [Mass ratio] Serum or plasma albumin/globulin mass ratio [facility] Albumin/Globulin [Mass ratio] 0.9 {ratio} [facility] Comment on above: Performed By: #### T SH3, FE, TIBC, CMP, CBC #### [place] [address] [place] #### CELIAC #### [facility] , Serum or plasma anion gap de terminationOrdered By: Javad Cruz on 02-17-2025 Anion gap [Moles/Vol] Serum or plasma an ion gap determination 6.0-15.0 [facility] Anion gap [Moles/Vol] 12.2 mmol/L Normal 6.0-15.0 [facility] Comment on above: Performed By: #### T SH3, FE, TIBC, CMP, CBC #### [place] [address] [place] #### CELIAC #### [facility] , Sodium [Moles/volume] in Ser um or PlasmaOrdered By: Javad Cruz on 02-17-2025 Sodium [Moles/Vol] Sodium [Moles/volume ] in Serum or Plasma Low 136-145 [facility] Sodium [Moles/Vol] 128 mmol/L Low 136-145 [facility] Comment on above: Performed By: #### T SH3, FE, TIBC, CMP, CBC #### [facility] [address] [place] [address] [place] #### CELIAC #### [facility] , Urea nitrogen [Mass/volume] in Serum or PlasmaOrdered By: Javad Cruz on 02-17-2025 Urea nitrogen [Mass/Vol] Urea nitrogen [Mass/volume] in Serum or Plasma 04-13 [facility] Urea nitrogen [Mass/Vol] 24 mg/dL Normal 04-13 [facility] Comment on above: Performed By: #### T SH3, FE, TIBC, CMP, CBC #### [facility] [address] #### CELIAC #### [facility] , WBC Auto (Bld) [#/Vol]Ordere d By: Javad Cruz on 02-17-2025 WBC (Bld) [#/Vol] Leukocytes [#/volume ] in Blood by Automated count 3.8-11.6 [facility] Comment on above: --- 02/17/25 0506 -- -UNWBC previously reported as: 10.1 x10E3/uL Alanine aminotransferase [En zymatic activity/volume] in Serum or PlasmaOrdered By: Clarence Vines on 02-16-2025 ALT [Catalytic activity/Vol] Alanine aminotransferase [Enzymatic activity/volume] in Serum or Plasma [facility] Albumin [Mass/volume] in Ser um or Plasma by Bromocresol green (BCG) dye binding methoOrdered By: Clarence Vines on 02-16-2025 Albumin BCG dye [Mass/Vol] Albumin [Mass/volume] in Serum or Plasma by Bromocresol green (BCG) dye binding metho Low 3.5-5.7 [facility] Alkaline phosphatase [Enzyma tic activity/volume] in Serum or PlasmaOrdered By: Clarence Vines on 02-16-2025 ALP [Catalytic activity/Vol] Alkaline phosphatase [Enzymatic activity/volume] in Serum or Plasma 34-104 [facility] Aspartate aminotransferase [ Enzymatic activity/volume] in Serum or PlasmaOrdered By: Clarence Vines on 02-16-2025 AST [Catalytic activity/Vol] Aspartate aminotransferase [Enzymatic activity/volume] in Serum or Plasma 13-39 [facility] Basophils Auto (Bld) [#/Vol] Ordered By: Clarence Vines on 02-16-2025 Basophils (Bld) [#/Vol] Automated basophil count 0.0-0.2 [facility] Basophils/100 WBC Auto (Bld) Ordered By: Clarence Vines on 02-16-2025 Basophils/100 WBC (Bld) Automated basophil % . [facility] Bilirubin.total [Mass/volume ] in Serum or PlasmaOrdered By: Clarence Vines on 02-16-2025 Bilirubin [Mass/Vol] Bilirubin.total [Mass/volume] in Serum or Plasma 0.3-1.0 [facility] CBC W Auto Differential pane l (Bld)on 02-16-2025 Basophils (Bld) [#/Vol] 0 10*3/uL 0.0 - 0.2 10*3/uL [facility] Basophils/100 WBC Manual cnt (Syn fld) 0.3 % . [facility] Eosinophils (Bld) [#/Vol] 0.1 10*3/uL 0.0 - 0.45 10*3/uL [facility] Eosinophils/100 WBC Manual cnt (Syn fld) 0.8 % . [facility] Erythrocyte distribution width (RBC) [Ratio] 13.7 % 11.9 - 15.3 % [facility] Hematocrit (Bld) [Volume fraction] 34.3 % 34.0 - 46.4 % [facility] Hemoglobin (Bld) [Mass/Vol] 11.5 g/dL Low 11.8 - 15.4 g/dL [facility] Interpretation and review of laboratory results Abnormal [facility] Lymphocytes (Bld) [#/Vol] 0.3 10*3/uL Low 1.00 - 4.8 10*3/uL [facility] Lymphocytes/100 WBC Manual cnt (Syn fld) 3.5 % . [facility] MCH (RBC) [Entitic mass] 28.5 pg 24.7 - 34.3 pg [facility] MCHC (RBC) [Mass/Vol] 33.6 g/dL 32.0 - 35.0 g/dL [facility] MCV (RBC) [Entitic vol] 84.9 fL 80 - 100 fL [facility] Monocytes (Bld) [#/Vol] 0.1 10*3/uL 0.0 - 0.8 10*3/uL [facility] Monocytes+Macrophages/ 100 WBC Manual cnt (Syn fld) 0.7 % . [facility] Neutrophils (Bld) [#/Vol] 9.3 10*3/uL High 1.8 - 7.7 10*3/uL [facility] Neutrophils/100 WBC Manual cnt (Syn fld) 94.7 % . [facility] NRBC 0.1 /100{WBC} 0 - 0.5 /100{WBC} [facility] Platelet mean volume (Bld) [Entitic vol] 9 fL 6.3 - 10.7 fL [facility] Platelets (Bld) [#/Vol] 400 10*3/uL 150 - 450 10*3/uL [facility] RBC LM.HPF (Urine sed) [#/Area] 4.05 10*6/uL 3.60 - 5.00 10*6/uL [facility] WBC (Bld) [#/Vol] 9.9 10*3/uL 3.8 - 11.6 10*3/uL [facility] WBC LM.HPF (Urine sed) [#/Area] 9.9 10*3/uL 3.8 - 11.6 10*3/uL [facility] Calcium [Mass/volume] in Ser um or PlasmaOrdered By: Clarence Vines on 02-16-2025 Calcium [Mass/Vol] Calcium [Mass/volume ] in Serum or Plasma Low 8.6-10.3 [facility] Carbon dioxide, total [Moles /volume] in Serum or PlasmaOrdered By: Clarence Vines on 02-16-2025 CO2 [Moles/Vol] Carbon dioxide, tota l [Moles/volume] in Serum or Plasma 21.0-31.0 [facility] Chloride [Moles/volume] in S yin or PlasmaOrdered By: Clarence Vines on 02-16-2025 Chloride [Moles/Vol] Chloride [Moles/vol ume] in Serum or Plasma Low 98-107 [facility] Complete Blood Count Auto Di ffon 02-16-2025 Basophils (Bld) [#/Vol] 0.0 10*3/uL Normal 0.0-0.2 [facility] Comment on above: Result Comment: PERF ORMED BY: [facility] [address] [place] [address] PATHOLOGIST [employer] D[employer]ATOR MARISEL MANRIQUE M.D. Performed By: #### T SH3, FE, TIBC, CMP, CBC #### [place] [address] [place] #### CELIAC #### [facility] , Basophils/100 WBC (Bld) 0.3 % Normal . [facility] Comment on above: Performed By: #### T SH3, FE, TIBC, CMP, CBC #### [place] [address] [place] #### CELIAC #### [facility] , Eosinophils (Bld) [#/Vol] 0.1 10*3/uL Normal 0.0-0.45 [facility] Comment on above: Performed By: #### T SH3, FE, TIBC, CMP, CBC #### [address] #### CELIAC #### [facility] , Eosinophils/100 WBC (Bld) 0.8 % Normal . [facility] Comment on above: Performed By: #### T SH3, FE, TIBC, CMP, CBC #### [place] [address] [place] #### CELIAC #### [facility] , Erythrocyte distribution width (RBC) [Ratio] 13.7 % Normal 11.9-15.3 [facility] Comment on above: Performed By: #### T SH3, FE, TIBC, CMP, CBC #### [place] [address] [place] #### CELIAC #### [facility] , Hematocrit (Bld) [Volume fraction] 34.3 % Normal 34.0-46.4 [facility] Comment on above: Performed By: #### T SH3, FE, TIBC, CMP, CBC #### [place] [address] [place] #### CELIAC #### [facility] , Hemoglobin (Bld) [Mass/Vol] 11.5 g/dL Low 11.8-15.4 [facility] Comment on above: Performed By: #### T SH3, FE, TIBC, CMP, CBC #### [address] #### CELIAC #### [facility] , Lymphocytes (Bld) [#/Vol] 0.3 10*3/uL Low 1.00-4.8 [facility] Comment on above: Performed By: #### T SH3, FE, TIBC, CMP, CBC #### [place] [address] [place] #### CELIAC #### [facility] , Lymphocytes/100 WBC (Bld) 3.5 % Normal . [facility] Comment on above: Performed By: #### T SH3, FE, TIBC, CMP, CBC #### [place] [address] [place] #### CELIAC #### [facility] , MCH (RBC) [Entitic mass] 28.5 pg Normal 24.7-34.3 [facility] Comment on above: Performed By: #### T SH3, FE, TIBC, CMP, CBC #### [place] [address] [place] #### CELIAC #### [facility] , MCV (RBC) [Entitic vol] 84.9 fL Normal 80-100 [facility] Comment on above: Performed By: #### T SH3, FE, TIBC, CMP, CBC #### [place] [address] [place] #### CELIAC #### [facility] , Mean Corpuscular HGB Conc 33.6 g/dL Normal 32.0-35.0 [facility] Comment on above: Performed By: #### T SH3, FE, TIBC, CMP, CBC #### [place] [id number] [place] #### CELIAC #### [facility] , Monocytes (Bld) [#/Vol] 0.1 10*3/uL Normal 0.0-0.8 [facility] Comment on above: Performed By: #### T SH3, FE, TIBC, CMP, CBC #### [place] [address] [place] #### CELIAC #### [facility] , Monocytes/100 WBC (Bld) 0.7 % Normal . [facility] Comment on above: Performed By: #### T SH3, FE, TIBC, CMP, CBC #### [place] [address] [place] #### CELIAC #### [facility] , Neutrophils (Bld) [#/Vol] 9.3 10*3/uL High 1.8-7.7 [facility] Comment on above: Performed By: #### T SH3, FE, TIBC, CMP, CBC #### [address] #### CELIAC #### [facility] , Neutrophils/100 WBC (Bld) 94.7 % Normal . [facility] Comment on above: Performed By: #### T SH3, FE, TIBC, CMP, CBC #### [place] [address] [place] #### CELIAC #### [facility] , NRBC% 0.1 /100{WBC} Normal 0-0.5 [facility] Comment on above: Performed By: #### T SH3, FE, TIBC, CMP, CBC #### [place] [address] [place] #### CELIAC #### [facility] , Platelet mean volume (Bld) [Entitic vol] 9.0 fL Normal 6.3-10.7 [facility] Comment on above: Performed By: #### T SH3, FE, TIBC, CMP, CBC #### [place] [address] [place] #### CELIAC #### [facility] , Platelets (Bld) [#/Vol] 400 10*3/uL Normal 150-450 [facility] Comment on above: Performed By: #### T SH3, FE, TIBC, CMP, CBC #### [place] [address] [place] #### CELIAC #### [facility] , RBC (Bld) [#/Vol] 4.05 10*6/uL Normal 3.60-5.00 [facility] Comment on above: Performed By: #### T SH3, FE, TIBC, CMP, CBC #### [address] #### CELIAC #### [facility] , WBC (Bld) [#/Vol] 9.9 10*3/uL Normal 3.8-11.6 [facility] Comment on above: Performed By: #### T SH3, FE, TIBC, CMP, CBC #### [place] [address] [place] #### CELIAC #### [facility] , Comprehensive Metabolic Pane alex 02-16-2025 Albumin [Mass/Vol] 3.4 g/dL Low 3.5-5.7 [facility] Comment on above: Performed By: #### T SH3, FE, TIBC, CMP, CBC #### [place] [address] [place] #### CELIAC #### [facility] , Albumin/Globulin [Mass ratio] 0.9 {ratio} Normal [facility] Comment on above: Performed By: #### T SH3, FE, TIBC, CMP, CBC #### [place] [address] [place] #### CELIAC #### [facility] , ALP [Catalytic activity/Vol] 81 U/L Normal 34-104 [facility] Comment on above: Performed By: #### T SH3, FE, TIBC, CMP, CBC #### [place] [address] [place] #### CELIAC #### [facility] , ALT [Catalytic activity/Vol] 12 U/L Normal 7-52 [facility] Comment on above: Performed By: #### T SH3, FE, TIBC, CMP, CBC #### [address] #### CELIAC #### [facility] , Anion gap [Moles/Vol] 11.5 mmol/L Normal 6.0-15.0 [facility] Comment on above: Performed By: #### T SH3, FE, TIBC, CMP, CBC #### [address] #### CELIAC #### [facility] , AST [Catalytic activity/Vol] 27 U/L Normal 13-39 [facility] Comment on above: Performed By: #### T SH3, FE, TIBC, CMP, CBC #### [address] #### CELIAC #### [facility] , Bilirubin [Mass/Vol] 0.5 mg/dL Normal 0.3-1.0 [facility] Comment on above: Performed By: #### T SH3, FE, TIBC, CMP, CBC #### [place] [address] [place] #### CELIAC #### [facility] , Calcium [Mass/Vol] 8.4 mg/dL Low 8.6-10.3 [facility] Comment on above: Performed By: #### T SH3, FE, TIBC, CMP, CBC #### [facility] [address] [place] [address] [place] #### CELIAC #### [facility] , Chloride [Moles/Vol] 96 mmol/L Low 98-107 [facility] Comment on above: Performed By: #### T SH3, FE, TIBC, CMP, CBC #### [address] #### CELIAC #### [facility] , CO2 [Moles/Vol] 27.4 mmol/L Normal 21.0-31.0 [facility] Comment on above: Performed By: #### T SH3, FE, TIBC, CMP, CBC #### [address] #### CELIAC #### [facility] , Creatinine [Mass/Vol] 0.91 mg/dL Normal 0.60-1.20 [facility] Comment on above: Performed By: #### T SH3, FE, TIBC, CMP, CBC #### [address] #### CELIAC #### [facility] , Creatinine Clr Calc Pharmacy 50.09 Normal [facility] Comment on above: Result Comment: PERF ORMED BY: [place] [address] PATHOLOGIST BASE DRAW OPERATOR MARISEL MANRIQUE M.D. Performed By: #### T SH3, FE, TIBC, CMP, CBC #### [address] #### CELIAC #### [facility] , GFR/1.73 sq M.predicted MDRD (S/P/Bld) [Vol rate/Area] mL/min/{1.73_m2} Normal [facility] Comment on above: Performed By: #### T SH3, FE, TIBC, CMP, CBC #### [place] [address] [place] #### CELIAC #### [facility] , Globulin (S) [Mass/Vol] 3.6 g/dL Normal [facility] Comment on above: Performed By: #### T SH3, FE, TIBC, CMP, CBC #### [place] [address] [place] #### CELIAC #### [facility] , Glucose [Mass/Vol] 101 mg/dL High 70-100 [facility] Comment on above: Result Comment: [facility] Glucose Reference Range is dependent on time and content of last meal. Glucose of more than 200 mg/dL in a nonstressed, ambulatory subject supports the diagnosis of Diabetes Mellitus. ADA recommended reference range Performed By: #### T SH3, FE, TIBC, CMP, CBC #### [place] [address] [place] #### CELIAC #### [facility] , Potassium [Moles/Vol] 4.9 mmol/L Normal 3.5-5.1 [facility] Comment on above: Performed By: #### T SH3, FE, TIBC, CMP, CBC #### [place] [address] [place] #### CELIAC #### [facility] , Protein [Mass/Vol] 7.0 g/dL Normal 6.4-8.9 [facility] Comment on above: Performed By: #### T SH3, FE, TIBC, CMP, CBC #### [place] [address] [place] #### CELIAC #### [facility] , Sodium [Moles/Vol] 130 mmol/L Low 136-145 [facility] Comment on above: Performed By: #### T SH3, FE, TIBC, CMP, CBC #### [place] [address] [place] #### CELIAC #### [facility] , Urea nitrogen [Mass/Vol] 25 mg/dL Normal 7-25 [facility] Comment on above: Performed By: #### T SH3, FE, TIBC, CMP, CBC #### [facility] [address] [id number] [facility] #### CELIAC #### [facility] , Comprehensive metabolic pane alex 02-16-2025 Albumin [Mass/Vol] 3.4 g/dL Low 3.5 - 5.7 g/dL [facility] Albumin/Globulin [Mass ratio] 0.9 {ratio} [facility] ALP [Catalytic activity/Vol] 81 U/L 34 - 104 U/L [facility] ALT [Catalytic activity/Vol] 12 U/L 7 - 52 U/L [facility] Anion gap [Moles/Vol] 11.5 mmol/L 6.0 - 15.0 meq/L [facility] AST [Catalytic activity/Vol] 27 U/L 13 - 39 U/L [facility] Bilirubin [Mass/Vol] 0.5 mg/dL 0.3 - 1 .0 mg/dL [facility] Calcium [Mass/Vol] 8.4 mg/dL Low 8.6 - 10. 3 mg/dL [facility] Chloride [Moles/Vol] 96 mmol/L Low 98 - 10 7 mmol/L [facility] CO2 [Moles/Vol] 27.4 mmol/L 21.0 - 31.0 mmol/L [facility] Creatinine (U) [Mass/Vol] 0.91 mg/dL 0.60 - 1.20 mg/dL [facility] CREATININE CLR CALC PHARMACY 50.09 [facility] ESTIMATED GFR mL/Min [facility] Globulin (S) [Mass/Vol] 3.6 g/dL [facility] Glucose [Mass/Vol] 101 mg/dL High 70 - 100 mg/dL [facility] Comment on above: Random Glucose Refer ence Range is dependent on time and content of last meal. Glucose of more than 200 mg/dL in a nonstressed, ambulatory subject supports the diagnosis of Diabetes Mellitus. ADA recommended reference range Interpretation and review of laboratory results Abnormal [facility] Potassium [Moles/Vol] 4.9 mmol/L 3.5 - 5.1 mmol/L [facility] Protein [Mass/Vol] 7 g/dL 6.4 - 8.9 g/dL [facility] Sodium [Moles/Vol] 130 mmol/L Low 136 - 145 mmol/L [facility] Urea nitrogen [Mass/Vol] 25 mg/dL 7 - 25 mg/dL [facility] Creatinine [Mass/volume] in Serum or PlasmaOrdered By: Clarence Vines on 02-16-2025 Creatinine [Mass/Vol] Creatinine [Mass/v olume] in Serum or Plasma 0.60-1.20 [facility] Eosinophils Auto (Bld) [#/Vo l]Ordered By: Clarence Vines on 02-16-2025 Eosinophils (Bld) [#/Vol] Automated eosinophil count 0.0-0.45 [facility] Eosinophils/100 WBC Auto (Bl d)Ordered By: Clarence Vines on 02-16-2025 Eosinophils/100 WBC (Bld) Automated eosinophil % . [facility] Erythrocyte distribution wid th Auto (RBC) [Ratio]Ordered By: Clarence Vines on 02-16-2025 Erythrocyte distribution width (RBC) [Ratio] Erythrocyte distribution width [Ratio] by Automated count 11.9-15.3 [facility] Globulin Calc (S) [Mass/Vol] Ordered By: Clarence Vines on 02-16-2025 Globulin (S) [Mass/Vol] Serum globulin measurement by calculation (mass/volume) [facility] Glucose [Mass/volume] in Ser um or PlasmaOrdered By: Clarence Vines on 02-16-2025 Glucose [Mass/Vol] Glucose [Mass/volume ] in Serum or Plasma High 70-100 [facility] Comment on above: ADA recommended refe rence rangeRandom Glucose Reference Range is dependent on time and content of last meal. Glucose of more than 200 mg/dL in a nonstressed, ambulatory subject supports the diagnosis of Diabetes Mellitus. Hematocrit Auto (Bld) [Volum e fraction]Ordered By: Clarence Vines on 02-16-2025 Hematocrit (Bld) [Volume fraction] Hematocrit [Volume Fraction] of Blood by Automated count 34.0-46.4 [facility] Hemoglobin [Mass/volume] in BloodOrdered By: Clarence Vines on 02-16-2025 Hemoglobin (Bld) [Mass/Vol] Hemoglobin [Mass/volume] in Blood Low 11.8-15.4 [facility] Leukocytes [#/volume] correc cal for nucleated erythrocytes in Blood by Automated counOrdered By: Clarence Vines on 02-16-2025 WBC corrected for nucl RBC Auto (Bld) [#/Vol] Leukocytes [#/volume] corrected for nucleated erythrocytes in Blood by Automated coun 3.8-11.6 [facility] Lymphocytes Auto (Bld) [#/Vo l]Ordered By: Clarence Vines on 02-16-2025 Lymphocytes (Bld) [#/Vol] Lymphocytes [#/volume] in Blood by Automated count Low 1.00-4.8 [facility] Lymphocytes/100 WBC Auto (Bl d)Ordered By: Clarence Vines on 02-16-2025 Lymphocytes/100 WBC (Bld) Lymphocytes/100 leukocytes in Blood by Automated count . [facility] MCH Auto (RBC) [Entitic mass ]Ordered By: Clarence Vines on 02-16-2025 MCH (RBC) [Entitic mass] MCH [Entitic mass] by Automated count 24.7-34.3 [facility] MCHC Auto (RBC) [Mass/Vol]Or dered By: Clarence Vines on 02-16-2025 MCHC (RBC) [Mass/Vol] MCHC [Mass/volume] by Automated count 32.0-35.0 [facility] MCV Auto (RBC) [Entitic vol] Ordered By: Clarence Vines on 02-16-2025 MCV (RBC) [Entitic vol] MCV [Entitic volume] by Automated count 80-100 [facility] Monocytes Auto (Bld) [#/Vol] Ordered By: Clarence Vines on 02-16-2025 Monocytes (Bld) [#/Vol] Automated blood monocyte count 0.0-0.8 [facility] Monocytes/100 WBC Auto (Bld) Ordered By: Clarence Vines on 02-16-2025 Monocytes/100 WBC (Bld) Automated monocyte % . [facility] Neutrophils Auto (Bld) [#/Vo l]Ordered By: Clarence Vines on 02-16-2025 Neutrophils (Bld) [#/Vol] Neutrophils [#/volume] in Blood by Automated count High 1.8-7.7 [facility] Neutrophils/100 WBC Auto (Bl d)Ordered By: Clarence Vines on 02-16-2025 Neutrophils/100 WBC (Bld) Automated neutrophil % . [facility] No Panel InformationOrdered By: Clarence Vines on 02-16-2025 Estimated GFR (CKD-EPI) > 60.0 mL/Min [facility] Creatinine Clearance (Chem 50.09 [facility] Nucleated erythrocytes [Pres ence] in Blood by Automated countOrdered By: Clarence Vines on 02-16-2025 Nucleated RBC Auto Ql (Bld) Nucleated erythrocytes [Presence] in Blood by Automated count 0-0.5 [facility] Platelet mean volume Auto (B ld) [Entitic vol]Ordered By: Clarence Vines on 02-16-2025 Platelet mean volume (Bld) [Entitic vol] Platelet mean volume [Entitic volume] in Blood by Automated count 6.3-10.7 [facility] Platelets Auto (Bld) [#/Vol] Ordered By: Clarence Vines on 02-16-2025 Platelets (Bld) [#/Vol] Platelets [#/volume] in Blood by Automated count 150-450 [facility] Potassium [Moles/volume] in Serum or PlasmaOrdered By: Clarence Vines on 02-16-2025 Potassium [Moles/Vol] Potassium [Moles/v olume] in Serum or Plasma 3.5-5.1 [facility] Protein [Mass/volume] in Ser um or PlasmaOrdered By: Clarence Vines on 02-16-2025 Protein [Mass/Vol] Protein [Mass/volume ] in Serum or Plasma 6.4-8.9 [facility] RBC Auto (Bld) [#/Vol]Ordere d By: Clarence Vines on 02-16-2025 RBC (Bld) [#/Vol] Erythrocytes [#/volu me] in Blood by Automated count 3.60-5.00 [facility] Serum or plasma albumin/glob ulin mass ratioOrdered By: Clarence Vines on 02-16-2025 Albumin/Globulin [Mass ratio] Serum or plasma albumin/globulin mass ratio [facility] Serum or plasma anion gap de terminationOrdered By: Clarence Vines on 02-16-2025 Anion gap [Moles/Vol] Serum or plasma an ion gap determination 6.0-15.0 [facility] Sodium [Moles/volume] in Ser um or PlasmaOrdered By: Clarence Vines on 02-16-2025 Sodium [Moles/Vol] Sodium [Moles/volume ] in Serum or Plasma Low 136-145 [facility] Urea nitrogen [Mass/volume] in Serum or PlasmaOrdered By: Clarence Vines on 02-16-2025 Urea nitrogen [Mass/Vol] Urea nitrogen [Mass/volume] in Serum or Plasma 7-25 [facility] WBC Auto (Bld) [#/Vol]Ordere d By: Clarence Vines on 02-16-2025 WBC (Bld) [#/Vol] Leukocytes [#/volume ] in Blood by Automated count 3.8-11.6 [facility] CNPNon 02-13-2025 [facility] Normal [facility] CNNURSEon 02-09-2025 [facility] Normal [facility] CNNURSEon 02-06-2025 [facility] CNOVSPon 02-06-2025 [facility] Normal [facility] CANCER AG19-9 SERPL-ACNC on 02-02-2025 [facility] CANCER AG19-9 SERPL-ACNC 10 U/mL NINF - 36.0 U/mL [facility] Comment on above: Cancer antigen 19-9 test is used as an aid in monitoring response to treatment or recurrence in patients with established pancreatic, hepatobiliary, or gastrointestinal malignancies. Clinical correlation is required. The CA 19-9 Antigen test was performed using the [employer] Unicel DXI paramagnetic particle chemiluminescent immunoassay method. Results obtained with different assay methods or kits cannot be used interchangeably. Specimen Type: BLOOD SPECIMEN Ordering Facility: [facility] Address: [address] [place] [address] Original Ordering Provider: JUAN WILKINSON [facility] 02-02-2025 [facility] Normal [facility] CNPNon 02-01-[address] [facility] Normal [facility] Cancer Ag125 SerPl-aCncon Cancer Ag 125 Qn 258 [arb'U]/mL High <39 [facility] Comment on above: Order Comment: Margarita zendejas Type: BLOOD SPECIMENOrdering Facility: [facility] Address: [address] [place] [address] Result Comment: CA 1 25 test methodology used is the Electrochemiluminescence Immunoassay by [employer]. Results obtained with different methods or kits cannot be used interchangeably.The reference interval is based on the 95th percentile of 240 apparently healthy premenopausal and postmenopausal women. At a cutoff value of 65 U/mL, the test sensitivity to distinguish ovarian carcinoma (FIGO stage I to IV) versus benign gynecological disease is 79%, with a specificity of 82%.Reference: Cancer Antigen 125 (CA 125 II) [package insert V 1.0 [place]an]. [employer], [place], [place] (June 2015) Performed By: #### 1 0334-1 ####[facility] LABCLIA [id number] [place] [address] [place] Cancer Ag19-9 SerPl-aCncon 0 02-01-2025 Cancer Ag 19-9 Qn 10.0 [arb'U]/mL Normal <36.0 [facility] Comment on above: Order Comment: Margarita zendejas Type: BLOOD SPECIMENOrdering Facility: [facility] Address: [address] [place] [address] Result Comment: [facility] er antigen 19-9 test is used as an aid in monitoring response to treatment or recurrence in patients with established pancreatic, hepatobiliary, or gastrointestinal malignancies. Clinical correlation is required.The CA 19-9 Antigen test was performed using the [employer] Unicel DXI paramagnetic particle chemiluminescent immunoassay method. Results obtained with different assay methods or kits cannot be used interchangeably. Performed By: #### 2 4108-3 ####[facility] LABIA [id number] [place] [address] [place] CA 125on 01-30-2025 CANCER ANTIGEN 125 287 High 0.0 - 38.1 [facility] Comment on above: [employer] El ectrochemiluminescence Immunoassay (ECLIA) Values obtained with different assay methods or kits cannot be used interchangeably. Results cannot be interpreted as absolute evidence of the presence or absence of malignant disease. Performed at: [address], [place] [id number] Asp Developer: Lj Solano PhD, Phone: [phone] Interpretation and review of laboratory results Abnormal [facility] CNNURSEon 01-30-2025 CNNURSE Normal [facility] CARCINOEMBRYONIC ANTIGENon 0 01-29-2025 [facility] CBC W Auto Differential pane l (Bld)on 01-29-2025 Basophils (Bld) [#/Vol] 0.1 10*3/uL 0.0 - 0.2 10*3/uL [facility] Healthcare Basophils/100 WBC Manual cnt (Syn fld) 1.2 % . [facility] Eosinophils (Bld) [#/Vol] 0.2 10*3/uL 0.0 - 0.45 10*3/uL [facility] Eosinophils/100 WBC Manual cnt (Syn fld) 3.2 % . [facility] Erythrocyte distribution width (RBC) [Ratio] 13.7 % 11.9 - 15.3 % [facility] Hematocrit (Bld) [Volume fraction] 34.8 % 34.0 - 46.4 % [facility] Hemoglobin (Bld) [Mass/Vol] 11.7 g/dL Low 11.8 - 15.4 g/dL [facility] Interpretation and review of laboratory results Abnormal [facility] Lymphocytes (Bld) [#/Vol] 0.5 10*3/uL Low 1.00 - 4.8 10*3/uL [facility] Lymphocytes/100 WBC Manual cnt (Syn fld) 10 % . [facility] MCH (RBC) [Entitic mass] 28.7 pg 24.7 - 34.3 pg [facility] MCHC (RBC) [Mass/Vol] 33.6 g/dL 32.0 - 35.0 g/dL [facility] MCV (RBC) [Entitic vol] 85.3 fL 80 - 100 fL [facility] Monocytes (Bld) [#/Vol] 0.6 10*3/uL 0.0 - 0.8 10*3/uL [facility] Monocytes+Macrophages/ 100 WBC Manual cnt (Syn fld) 11.1 % . [facility] Neutrophils (Bld) [#/Vol] 3.7 10*3/uL 1.8 - 7.7 10*3/uL [facility] Neutrophils/100 WBC Manual cnt (Syn fld) 74.5 % . [facility] NRBC 0 /100{WBC} 0 - 0.5 /100{WBC} [facility] Platelet mean volume (Bld) [Entitic vol] 8.3 fL 6.3 - 10.7 fL [facility] Platelets (Bld) [#/Vol] 370 10*3/uL 150 - 450 10*3/uL [facility] RBC LM.HPF (Urine sed) [#/Area] 4.08 10*6/uL 3.60 - 5.00 10*6/uL [facility] WBC (Bld) [#/Vol] 5 10*3/uL 3.8 - 11.6 10*3/uL [facility] WBC LM.HPF (Urine sed) [#/Area] 5 10*3/uL 3.8 - 11.6 10*3/uL [facility] CEA ser/plasOrdered By: Ravinder Vines on 01-29-2025 Carcinoembryonic Ag [Mass/Vol] Serum or plasma carcinoembryonic antigen measurement (mass/volume) 0.0-3.0 [facility] Comment on above: Serial tumor marker results determined by assays using different manufacturers or methods may not be comparable.[facility] application design engineer and method:OLE UNICEL DXI, 2 SITE IMMUNOENZYMATIC SANDWICH ASSAY. Cancer Antigen 125on 025 Cancer Antigen 125 287.0 High 0.0-38.1 [facility] Comment on above: Result Comment: [employer] [employer] Electrochemiluminescence Immunoassay (ECLIA) Values obtained with different assay methods or kits cannot be used interchangeably. Results cannot be interpreted as absolute evidence of the presence or absence of malignant disease. Performed at: - [facility] [id number] Asp Developer: Lj Solano PhD, Phone: [phone] PERFORMED BY: [address] [address] PATHOLOGIST BASE DRAW OPERATOR LUCIAN HAQ M.D. Performed By: #### C A125 #### [facility] , #### CEA, CBC #### [facility] [address] Capillary blood glucose alena urement by glucometer (mass/volume)Ordered By: Clarence Vines on 01-29-2025 Glucose [Mass/Vol] 102 mg/dL Normal [facility] Comment on above: Random Glucose Refer ence Range is dependent on time and content of last meal. Glucose of more than 200 mg/dL in a nonstressed, ambulatory subject supports the diagnosis of Diabetes Mellitus. Result Comment: [facility] Glucose Reference Range is dependent on time and content of last meal. Glucose of more than 200 mg/dL in a nonstressed, ambulatory subject supports the diagnosis of Diabetes Mellitus. PERFORMED BY: [place] [address] PATHOLOGIST BASE DRAW OPERATOR LUCIAN HAQ M.D. Performed By: #### T SH3, FE, TIBC, CMP, CBC #### [address] #### CELIAC #### [facility] , Complete Blood Count Auto Di ffon 01-29-2025 Basophils (Bld) [#/Vol] 0.1 10*3/uL Normal 0.0-0.2 [facility] Comment on above: Result Comment: PERF ORMED BY: [place] [address] PATHOLOGIST BASE DRAW OPERATOR LUCIAN HAQ M.D. Performed By: #### C A125 #### [facility] , #### CEA, CBC #### [address] Basophils/100 WBC (Bld) 1.2 % Normal . [facility] Comment on above: Performed By: #### C A125 #### [facility] , #### CEA, CBC #### [address] Eosinophils (Bld) [#/Vol] 0.2 10*3/uL Normal 0.0-0.45 [facility] Comment on above: Performed By: #### C A125 #### [facility] , #### CEA, CBC #### [address] Eosinophils/100 WBC (Bld) 3.2 % Normal . [facility] Comment on above: Performed By: #### C A125 #### [facility] , #### CEA, CBC #### [address] Erythrocyte distribution width (RBC) [Ratio] 13.7 % Normal 11.9-15.3 [facility] Comment on above: Performed By: #### C A125 #### [facility] , #### CEA, CBC #### [address] Hematocrit (Bld) [Volume fraction] 34.8 % Normal 34.0-46.4 [facility] Comment on above: Performed By: #### C A125 #### [facility] , #### CEA, CBC #### [address] Hemoglobin (Bld) [Mass/Vol] 11.7 g/dL Low 11.8-15.4 [facility] Group Comment on above: Performed By: #### C A125 #### [facility] , #### CEA, CBC #### [address] Lymphocytes (Bld) [#/Vol] 0.5 10*3/uL Low 1.00-4.8 [facility] Comment on above: Performed By: #### C A125 #### [facility] , #### CEA, CBC #### [address] Lymphocytes/100 WBC (Bld) 10.0 % Normal . [facility] Comment on above: Performed By: #### C A125 #### [facility] , #### CEA, CBC #### [address] MCH (RBC) [Entitic mass] 28.7 pg Normal 24.7-34.3 [facility] Comment on above: Performed By: #### C A125 #### [facility] , #### CEA, CBC #### [address] MCV (RBC) [Entitic vol] 85.3 fL Normal 80-100 [facility] Comment on above: Performed By: #### C A125 #### [facility] , #### CEA, CBC #### [address] Mean Corpuscular HGB Conc 33.6 g/dL Normal 32.0-35.0 [facility] Comment on above: Performed By: #### C A125 #### [facility] , #### CEA, CBC #### [address] Monocytes (Bld) [#/Vol] 0.6 10*3/uL Normal 0.0-0.8 [facility] Comment on above: Performed By: #### C A125 #### [facility] , #### CEA, CBC #### [address] Monocytes/100 WBC (Bld) 11.1 % Normal . [facility] Comment on above: Performed By: #### C A125 #### [facility] , #### CEA, CBC #### [address] Neutrophils (Bld) [#/Vol] 3.7 10*3/uL Normal 1.8-7.7 [facility] Comment on above: Performed By: #### C A125 #### [facility] , #### CEA, CBC #### [address] Neutrophils/100 WBC (Bld) 74.5 % Normal . [facility] Comment on above: Performed By: #### C A125 #### [facility] , #### CEA, CBC #### [address] NRBC% 0.0 /100{WBC} Normal 0-0.5 [facility] Comment on above: Performed By: #### C A125 #### [facility] , #### CEA, CBC #### [address] Platelet mean volume (Bld) [Entitic vol] 8.3 fL Normal 6.3-10.7 [facility] Comment on above: Performed By: #### C A125 #### [facility] , #### CEA, CBC #### [address] Platelets (Bld) [#/Vol] 370 10*3/uL Normal 150-450 [facility] Comment on above: Performed By: #### C A125 #### [facility] , #### CEA, CBC #### [address] RBC (Bld) [#/Vol] 4.08 10*6/uL Normal 3.60-5.00 [facility] Comment on above: Performed By: #### C A125 #### [facility] , #### CEA, CBC #### [address] WBC (Bld) [#/Vol] 5.0 10*3/uL Normal 3.8-11.6 [facility] Comment on above: Performed By: #### C A125 #### [facility] , #### CEA, CBC #### [address] Comprehensive Metabolic Pane alex 01-29-2025 Albumin [Mass/Vol] 3.9 g/dL Normal 3.5-5.7 [facility] Comment on above: Performed By: #### T SH3, FE, TIBC, CMP, CBC #### [place] [address] [place] #### CELIAC #### [facility] , Albumin/Globulin [Mass ratio] 1.1 {ratio} Normal [facility] Comment on above: Performed By: #### T SH3, FE, TIBC, CMP, CBC #### [address] #### CELIAC #### [facility] , ALP [Catalytic activity/Vol] 70 U/L Normal 34-104 [facility] Comment on above: Performed By: #### T SH3, FE, TIBC, CMP, CBC #### [address] #### CELIAC #### [facility] , ALT [Catalytic activity/Vol] 11 U/L Normal 7-52 [facility] Comment on above: Performed By: #### T SH3, FE, TIBC, CMP, CBC #### [place] [address] [place] #### CELIAC #### [facility] , Anion gap [Moles/Vol] 9.7 mmol/L Normal 6.0-15.0 [facility] Comment on above: Performed By: #### T SH3, FE, TIBC, CMP, CBC #### [facility] [address] [place] [address] [place] #### CELIAC #### [facility] , AST [Catalytic activity/Vol] 28 U/L Normal 13-39 [facility] Comment on above: Performed By: #### T SH3, FE, TIBC, CMP, CBC #### [place] [address] [place] #### CELIAC #### [facility] , Bilirubin [Mass/Vol] 0.6 mg/dL Normal 0.3-1.0 [facility] Comment on above: Performed By: #### T SH3, FE, TIBC, CMP, CBC #### [place] [address] [place] #### CELIAC #### [facility] , Calcium [Mass/Vol] 9.6 mg/dL Normal 8.6-10.3 [facility] Comment on above: Performed By: #### T SH3, FE, TIBC, CMP, CBC #### [address] #### CELIAC #### [facility] , Chloride [Moles/Vol] 102 mmol/L Normal 98-107 [facility] Comment on above: Performed By: #### T SH3, FE, TIBC, CMP, CBC #### [address] #### CELIAC #### [facility] , CO2 [Moles/Vol] 29.6 mmol/L Normal 21.0-31.0 [facility] Comment on above: Performed By: #### T SH3, FE, TIBC, CMP, CBC #### [place] [address] [place] #### CELIAC #### [facility] , Creatinine [Mass/Vol] 0.67 mg/dL Normal 0.60-1.20 [facility] Comment on above: Performed By: #### T SH3, FE, TIBC, CMP, CBC #### [address] #### CELIAC #### [facility] , Creatinine Clr Calc Pharmacy 54.65 Normal [facility] Comment on above: Result Comment: PERF ORMED BY: [place] [address] PATHOLOGIST BASE DRAW OPERATOR LUCIAN HAQ M.D. Performed By: #### T SH3, FE, TIBC, CMP, CBC #### [place] [address] [place] #### CELIAC #### [facility] , GFR/1.73 sq M.predicted MDRD (S/P/Bld) [Vol rate/Area] mL/min/{1.73_m2} Normal [facility] Comment on above: Performed By: #### T SH3, FE, TIBC, CMP, CBC #### [place] [address] [place] #### CELIAC #### [facility] , Globulin (S) [Mass/Vol] 3.5 g/dL Normal [facility] Comment on above: Performed By: #### T SH3, FE, TIBC, CMP, CBC #### [place] [address] [place] #### CELIAC #### [facility] , Glucose [Mass/Vol] 100 mg/dL Normal 70-100 [facility] Comment on above: Result Comment: Zachary Glucose Reference Range is dependent on time and content of last meal. Glucose of more than 200 mg/dL in a nonstressed, ambulatory subject supports the diagnosis of Diabetes Mellitus. ADA recommended reference range Performed By: #### T SH3, FE, TIBC, CMP, CBC #### [place] [address] [place] #### CELIAC #### [facility] , Potassium [Moles/Vol] 4.3 mmol/L Normal 3.5-5.1 [facility] Comment on above: Performed By: #### T SH3, FE, TIBC, CMP, CBC #### [place] [address] [place] #### CELIAC #### [facility] , Protein [Mass/Vol] 7.4 g/dL Normal 6.4-8.9 [facility] Comment on above: Performed By: #### T SH3, FE, TIBC, CMP, CBC #### [facility] [address] [place] [address] [place] #### CELIAC #### [facility] , Sodium [Moles/Vol] 137 mmol/L Normal 136-145 [facility] Comment on above: Performed By: #### T SH3, FE, TIBC, CMP, CBC #### [facility] [address] [place] [address] [place] #### CELIAC #### [facility] , Urea nitrogen [Mass/Vol] 7 mg/dL Normal 7-25 [facility] Comment on above: Performed By: #### T SH3, FE, TIBC, CMP, CBC #### [facility] [address] [place] [address] [place] #### CELIAC #### [facility] , Comprehensive metabolic pane alex 01-29-2025 Albumin [Mass/Vol] 3.9 g/dL 3.5 - 5.7 g/dL [facility] Albumin/Globulin [Mass ratio] 1.1 {ratio} [facility] ALP [Catalytic activity/Vol] 70 U/L 34 - 104 U/L [facility] ALT [Catalytic activity/Vol] 11 U/L 7 - 52 U/L [facility] Anion gap [Moles/Vol] 9.7 mmol/L 6.0 - 15.0 meq/L [facility] AST [Catalytic activity/Vol] 28 U/L 13 - 39 U/L [facility] Bilirubin [Mass/Vol] 0.6 mg/dL 0.3 - 1 .0 mg/dL [facility] Calcium [Mass/Vol] 9.6 mg/dL 8.6 - 10. 3 mg/dL [facility] Chloride [Moles/Vol] 102 mmol/L 98 - 10 7 mmol/L [facility] CO2 [Moles/Vol] 29.6 mmol/L 21.0 - 31.0 mmol/L [facility] Creatinine (U) [Mass/Vol] 0.67 mg/dL 0.60 - 1.20 mg/dL [facility] CREATININE CLR CALC PHARMACY 54.65 [facility] ESTIMATED GFR mL/Min [facility] Globulin (S) [Mass/Vol] 3.5 g/dL [facility] Glucose [Mass/Vol] 100 mg/dL 70 - 100 mg/dL [facility] Comment on above: Random Glucose Refer ence Range is dependent on time and content of last meal. Glucose of more than 200 mg/dL in a nonstressed, ambulatory subject supports the diagnosis of Diabetes Mellitus. ADA recommended reference range Potassium [Moles/Vol] 4.3 mmol/L 3.5 - 5.1 mmol/L [facility] Protein [Mass/Vol] 7.4 g/dL 6.4 - 8.9 g/dL [facility] Sodium [Moles/Vol] 137 mmol/L 136 - 145 mmol/L [facility] Urea nitrogen [Mass/Vol] 7 mg/dL 7 - 25 mg/dL [facility] GLUCOSE POCT GLUCOMETERSon 0 01-29-2025 Glucose [Mass/Vol] 102 mg/dL [facility] Comment on above: Random Glucose Refer ence Range is dependent on time and content of last meal. Glucose of more than 200 mg/dL in a nonstressed, ambulatory subject supports the diagnosis of Diabetes Mellitus. [facility] Glucose Glucometer (BldC) [M ass/Vol]Ordered By: Clarence Vines on 01-29-2025 Glucose [Mass/Vol] Capillary blood gluc ose measurement by glucometer (mass/volume) [facility] Comment on above: Random Glucose Refer ence Range is dependent on time and content of last meal. Glucose of more than 200 mg/dL in a nonstressed, ambulatory subject supports the diagnosis of Diabetes Mellitus. PET tumor init tx strat sb-m ton 01-29-2025 PET tumor init tx strat sb-mt [facility] [place] [address] Nuclear Medicine Report Signed Patient: Mirian Corrales MR#: [id number] : 1955 Acct:[id number] Age/Sex: 69 / F ADM Date: 01/29/25 Loc: [facility]: [facility]: Clarence Vines II DO Copies to: Toribio Michael Jr, DO Timothy J Adamowicz, II, DO Ordering Provider: Clarence Vines II, DO Date of Service: 01/29/25 [...] performed. Impression dictated by: Toribio Michael Jr., D.O. 01/29/2025 1:06 PM Dictation Location: [place] [address] Transcribed By: [facility] 01/29/25 1306 Dictated By: Toribio Michael Jr, DO 01/29/25 1248 Signed By: 01/29/25 1306 Normal [facility] SURGICAL PATHOLOGY REFERENCE LAB CONSULTon 01-29-2025 AP DISCLAIMER Normal [facility] Comment on above: Order Comment: Margarita zendejas Type: FORMALIN-FIXED PARAFFIN-EMBEDDED TISSUE SPECIMENOrdering Facility: [facility] Address: [place] [address] Result Comment: Martha vincent Developed Test (LDT) Disclaimer:Performance characteristics of immunohistochemical, immunofluorescent, and chromogenic in-situ hybridization tests have been determined by the performing laboratory within [facility]'s [facility] Pathology and Laboratory Medicine Department ([facility], [facility], [facility], [facility], [facility], [facility], or [facility]) in a manner consistent with CLIA requirements. One or more of these tests may not have been cleared or approved by the FDA. RT-PLM is regulated under CLIA as qualified to perform high-complexity testing. These tests are used for clinical purposes. These should not be regarded as investigational or for research. Positive and negative controls stain appropriately. Performed By: #### L [id number] ####[facility] LABCLIA [id number] [place] [address] [place] CASE REPORT Normal [facility] Comment on above: Order Comment: Margarita zendejas Type: FORMALIN-FIXED PARAFFIN-EMBEDDED TISSUE SPECIMENOrdering Facility: [facility] Address: [place] [address] Result Comment: Surg ical Pathology Report Case: [id number] Provider: Clarence Vines DO Collected: 01/29/2025 06:34 PMOrdering [facility] Received: 01/29/2025 06:34 PM [facility] LaboratoryPathologist: Janie Cordero MDSpecimen: Slide(s), 10 SLIDES [id number] Performed By: #### L [id number] ####[facility] LABCLIA [id number] [address] [address] [place] CLINICAL HISTORY CONSULT REQUESTED Normal C [facility] Comment on above: Order Comment: Speci men Type: FORMALIN-FIXED PARAFFIN-EMBEDDED TISSUE SPECIMENOrdering Facility: [facility] Address: [address] [place] [id number] Performed By: #### L [id number] ####[facility] [id number] [address] [address] [facility] DIAGNOSIS COMMENT Normal [facility] Comment on above: Order Comment: Speci men Type: FORMALIN-FIXED PARAFFIN-EMBEDDED TISSUE SPECIMENOrdering Facility: [facility] Address: [address] [place] [id number] Result Comment: We c oncur with the outside pathologist diagnosis and appreciate the opportunity to review this consult material in this 69-year-old patient.Per the accompanying materials, the patient presented with right axillary lymph node adenopathy. The sample shows lymph node tissue involved by metastatic carcinoma.This is confirmed by positive immunohistochemical staining for cytokeratin AE1/AE3, CK7, and PAX-8 submitted by the outside institution. 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 These findings were communicated to Dr. Whalen on 02/07/[address] Cordero. Performed By: #### L [id number] ####[facility] LABIA [id number] [place] [id number] [facility] FINAL DIAGNOSIS Normal [facility] Comment on above: Order Comment: Speci men Type: FORMALIN-FIXED PARAFFIN-EMBEDDED TISSUE SPECIMENOrdering Facility: [facility] Address: [place] [id number] Result Comment: Revi ew of outside slides:[facility] ([place], [place]), Outside Pathologist (01/18/25):Right axillary lymph node biopsy:- Metastatic carcinoma, consistent with high-grade serous carcinoma of Mullerian origin. See comment.NAB/kr 01/30/2025 at 1632 EDT Performed By: #### L [id number] ####[facility] LABCLIA [id number] [address] [address] [place] FINAL PERFORMING LAB Normal [facility] Comment on above: Order Comment: Speci men Type: FORMALIN-FIXED PARAFFIN-EMBEDDED TISSUE SPECIMENOrdering Facility: [facility] Address: [address] [place], [place] [id number] Result Comment: Diag nostic interpretation performed at: [facility], [address] [facility], [place] [id number] CLIA# [id number] Director: Rishi Lackey MD Performed By: #### L [id number] ####[facility] LABCLIA [id number] [place] [id number] [place] Serum or plasma cancer antig en 125 (CA-125) measurement (units/volume)Ordered By: Clarence Vines on 01-29-2025 Cancer Ag 125 Qn Serum or plasma canc er antigen 125 (CA-125) measurement (units/volume) High 0.0-38.1 [facility] Comment on above: [facility] El ectrochemiluminescence Immunoassay(ECLIA)Values obtained with different assay methods or kits cannotbe used interchangeably. Results cannot be interpreted asabsolute evidence of the presence or absence of malignantdisease.Performed at: - [facility] [id number] Director: Lj Solano PhD, Phone: [phone] CNNURSEon 01-26-2025 CNNURSE Normal [facility] US bx lymph nodeon US bx lymph node [facility] [address] [place] [address] Ultrasound Report Signed Patient: Mirian Corrales MR#: [id number] : 1955 Acct:[id number] Age/Sex: 69 / F ADM Date: 01/18/25 Loc: Room: Type: [facility] Attending Dr: Benedicto Lan DO Ordering [...] Jr., D.OBuddy 01/25/2025 9:22 AM Dictation Location: [place] [address] Tech: Kierra Begum Transcribed By: [facility] 01/25/25 09 Dictated By: Toribio Michael Jr, DO 01/25/25 0920 Signed By: 01/25/25 09 Normal [facility] US PELVIS TRANSVAGINALon US PELVIS TRANSVAGINAL EXAM: US PELVIS TRANSVAGINAL HISTORY: Uterine leiomyoma. [...] II, MD, PHD at 28-Jan-2025 08:20:04 PM [facility] Normal Not Available Comment on above: Order Comment: US PE LVIS-TRANSVAG IF INDICATED No LMP recorded. CNNURSEon 01-23-2025 CNNURSE Normal [facility] CNNURSEon 01-19-2025 CNNURSE Normal [facility] INR in Platelet poor plasma by Coagulation assayOrdered By: Benedicto Lan on 01-18-2025 INR Coag (PPP) [Relative time] INR in Platelet poor plasma by Coagulation assay [facility] Comment on above: INR Therapeutic Rang e A) Pre- and Peroperative OAT started two weeks before surgery. NOT HIP SURGERY: 1.5 - 2.5 HIP SURGERY: 2 - 3B) Primary and secondary prevention of venous THROMBOSIS: 2 - 3C) Active venous thrombosis, pulmonary embolismand prevention of recurrent venous thrombosis: 2 - 3D) Prevention of arterial thromboembolismincluding patients with mechanical heart valves: 3 - 4.5 INR Coag (PPP) [Relative time] 1.2 {INR} Normal [facility] Comment on above: INR Therapeutic Rang e A) Pre- and Peroperative OAT started two weeks before surgery. NOT HIP SURGERY: 1.5 - 2.5 HIP SURGERY: 2 - 3B) Primary and secondary prevention of venous THROMBOSIS: 2 - 3C) Active venous thrombosis, pulmonary embolismand prevention of recurrent venous thrombosis: 2 - 3D) Prevention of arterial thromboembolismincluding patients with mechanical heart valves: 3 - 4.5 Result Comment: INR Therapeutic Range A) Pre- and Peroperative OAT started [...] valves: 3 - 4.5 Performed By: #### T SH3, FE, TIBC, CMP, CBC #### [facility] [address] #### CELIAC #### [facility] , Alex 01-18-2025 L ------ Specimen: [id number] Received: 01/18/25 Status: BREANN Leavitt Num: [id number] Spec Type: Surgical Subm Dr: Toribio Michael Jr, DO Tissues: A Axillary Lymph Node Biopsy (RIGHT AXILLA) Procedures: SYNAP, HE/2, Gross/Micro L4, AE1-AE3, CDX2, CK20, CK 7, TTF1, PAX-8, SOX-10, GATA3, DIFF QWIK Age/ Patient Sex Location Account Attending Physician Mirian Corrales 69/F UL [id number] Benedicto Lan SPEC NUM: [id number] RECD: 01/18/25-1006 STATUS: BREANN LEAVITT NUM: [id number] MIRNA: 01/18/25-[address] [facility] [address]: Toribio Michael Jr, DO ENTERED: 01/18/25-[address]: Benedicto Lan SPEC TYPE: Surgical DEPT: S ENTERED BY: [id number] RECV BY: [id number] ORDERED: SYNAP, HE/2, Gross/Micro L4, AE1-AE3, CDX2, CK20, CK 7, TTF1, PAX-8, SOX-10, GATA3, DIFF QWIK ORDERED: SYNAP, HE/2, Gross/Micro L4, AE1-AE3, CDX2, CK20, CK 7, TTF1, PAX-8, SOX-10, GATA3, DIFF QWIK Supplemental Report Addendum 1 Entered: 02/08/25-5403 Supplemental for findings of consultation report from [facility] -Mesothelial carcinoma, 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 See comment Addendum Signed (signature on file) Mikel Warren MD 02/08/25 9829 Pathological Diagnosis RT axilla LN Biopsy: Metastatic poorly differentiated carcinoma involving lymph node tissue. See microscopic description. Specimen: [id number] Received: 01/18/25 Status: BREANN Melanie Num: [id number] Spec Type: Surgical Subm Dr: Toribio Michael Jr, Tissues: A Axillary Lymph Node Biopsy (RIGHT AXILLA) Procedures: SYNAP, HE/2, Gross/Micro L4, AE1-AE3, CDX2, CK20, CK 7, TTF1, PAX-8, SOX-10, GATA3, DIFF QWIK Patient: Mirian Corrales [id number] (Continued) Specimen: [id number] Received: 01/18/25 (Continued) Signed (signature on file) Yazan Perez MD 01/19/25 1452 Specimen: [id number] Received: 01/18/25 Status: BREANN Leavitt Num: [id number] Spec Type: Surgical Subm Dr: Toribio Michael Jr, DO Tissues: A Axillary Lymph Node Biopsy (RIGHT AXILLA) Procedures: FRANCIS, HE/Marques, Gross/Micro L4, AE1-AE3, CDX2, CK20, CK 7, TTF1, PAX-8, SOX-10, GATA3, DIFF QWIK Patient: Mirian Corrales [id number] (Continued) Specimen: [id number] Received: 01/18/25 (Continued) Clinical Information Axillary lymphadenopathy [...] E processing. Fixation Time: Time specimen extracted: 0950 Time specimen placed in formalin: 1032 Cold ischemic time: 42 minutes Total fixation time: 7 hours (1, ns, [id number] A) Microscopic Description Biopsies show metastatic poorly [...] agreed with the above diagnosis. CPT Codes 93291, 47829, 43860Z8 Specimen: [id number] Received: 01/18/25 Status: BREANN Leavitt Num: [id number] Spec Type: Surgical Subm Dr: Toribio Michael Jr, DO Tissues: A Axillary Lymph Node Biopsy (RIGHT AXILLA) Procedures: SYNAP, HE/2, Gross/Micro L4, AE1-AE3, CDX2, CK20, CK 7, TTF1, PAX-8, SOX-10, GATA3, DIFF QWIK (more content not included)... Normal [facility] No Panel Informationon 01-18 Interpretation and review of laboratory results Abnormal [facility] PARTIAL THROMBOPLASTIN TIMEo n 01-18-2025 aPTT Coag (Bld) [Time] 36.9 s High 25.1 - 36.5 s [facility] Comment on above: A hematocrit value g reater than 55% may lead to inaccurate results in coagulation testing. Patients having hematocrit values >55% require a special collection tube for coagulation studies. Please contact the laboratory at [phone] for redraw instructions. PT Coag (Bld) [Time]on 01-18 INR Coag (PPP) [Relative time] 1.2 {INR} [facility] Comment on above: INR Therapeutic Rang e A) Pre- and Peroperative OAT started two weeks before surgery. NOT HIP SURGERY: 1.5 - 2.5 HIP SURGERY: 2 - 3 B) Primary and secondary prevention of venous THROMBOSIS: 2 - 3 C) Active venous thrombosis, pulmonary embolism and prevention of recurrent venous thrombosis: 2 - 3 D) Prevention of arterial thromboembolism including patients with mechanical heart valves: 3 - 4.5 PT Coag (PPP) [Time] 13.3 s High 9.0 - 1 2.9 s [facility] Comment on above: A hematocrit value g reater than 55% may lead to inaccurate results in coagulation testing. Patients having hematocrit values >55% require a special collection tube for coagulation studies. Please contact the laboratory at [phone] for redraw instructions. Partial Thromboplastin Timeo n 01-18-2025 aPTT Coag (Bld) [Time] 36.9 s High 25.1-36.5 Th [facility] Comment on above: Result Comment: A he matocrit value greater than 55% may lead to inaccurate results in coagulation testing. Patients having hematocrit values >55% require a special collection tube for coagulation studies. Please contact the laboratory at [phone] for redraw instructions. PERFORMED BY: [place] [id number] PATHOLOGIST BASE DRAW OPERATOR LUCIAN HAQ M.D. Performed By: #### T SH3, FE, TIBC, CMP, CBC #### [place] [address] [place] #### CELIAC #### [facility] , Platelet counton 01-18-2025 Platelets (Bld) [#/Vol] 366 10*3/uL 150 - 450 10*3/uL [facility] Platelets (Bld) [#/Vol]on [facility] Platelets Auto (Bld) [#/Vol] Ordered By: Benedicto Lan on 01-18-2025 Platelets (Bld) [#/Vol] Platelets [#/volume] in Blood by Automated count 150-450 [facility] Platelets [#/volume] in Bloo d by Automated countOrdered By: Benedicto Lan on 01-18-2025 Platelets (Bld) [#/Vol] 366 10*3/uL Normal 150-450 [facility] Comment on above: Result Comment: PERF ORMED BY: [place] [address] PATHOLOGIST BASE DRAW OPERATOR LUCIAN HAQ M.D. Performed By: #### P T, PTT, PLT #### [address] Prothrombin time (PT)Ordered By: Benedicto Lan on 01-18-2025 PT Coag (PPP) [Time] Prothrombin time (PT) High 9.0- 12.9 [facility] Comment on above: A hematocrit value g reater than 55% may lead to inaccurate results in coagulation testing. Patients having hematocrit values >55% require a special collection tube for coagulation studies. Please contact the laboratory at [phone] for redraw instructions. PT Coag (PPP) [Time] 13.3 s High 9.0-12.9 [facility] Comment on above: A hematocrit value g reater than 55% may lead to inaccurate results in coagulation testing. Patients having hematocrit values >55% require a special collection tube for coagulation studies. Please contact the laboratory at [phone] for redraw instructions. Result Comment: A he matocrit value greater than 55% may lead to inaccurate results in coagulation testing. Patients having hematocrit values >55% require a special collection tube for coagulation studies. Please contact the laboratory at [phone] for redraw instructions. Performed By: #### T SH3, FE, TIBC, CMP, CBC #### [address] #### CELIAC #### [facility] , aPTT in Platelet poor plasma by Coagulation assayOrdered By: Benedicto Lan on 01-18-2025 aPTT Coag (PPP) [Time] Activated partial thromboplastin time (aPTT) in platelet poor plasma by coagulation a High 25.1-36.5 [facility] Comment on above: A hematocrit value g reater than 55% may lead to inaccurate results in coagulation testing. Patients having hematocrit values >55% require a special collection tube for coagulation studies. Please contact the laboratory at [phone] for redraw instructions. aPTT Coag (PPP) [Time] 36.9 s High 25.1-36.5 [facility] Comment on above: A hematocrit value g reater than 55% may lead to inaccurate results in coagulation testing. Patients having hematocrit values >55% require a special collection tube for coagulation studies. Please contact the laboratory at [phone] for redraw instructions. US axillaon 01-17-2025 US axilla [facility] [place] [address] [place] [address] Ultrasound Report Signed Patient: Mirian Corrales MR#: [id number] : 1955 Acct:[id number] Age/Sex: 69 / F ADM Date: 01/17/25 Loc: [facility] Room: Type: [facility] Attending Dr: Benedicto Lan DO Ordering Provider: [...] Phan M.D. 01/17/2025 10:49 AM Dictation Location: [facility] Tech: Maribel Navarro Transcribed By: JULIOCESAR 01/17/25 1049 Dictated By: Megan Phan MD 01/17/25 1043 Signed By: 01/17/25 1049 Normal [facility] CNNURSEon 01-16-[address] [facility] abdomen pelvis w conon CT abdomen pelvis w [place] [address] CT Scan Report Signed Patient: Mirian Corrales MR#: [id number] : 1955 Acct:[id number] Age/Sex: 69 / F ADM Date: 01/15/25 Loc: CT Room: Type: [facility] Attending Dr: Rey Schrader MD Copies to: [...] Phan M.D. 01/15/2025 5:29 PM Dictation Location: [place] [address] Transcribed By: PWS 01/15/25 1729 Dictated By: Megan Phan MD 01/15/25 1718 Signed By: 01/15/25 172 Normal [facility] Creatinineon 01-15-2025 GFR/1.73 sq M.predicted MDRD (S/P/Bld) [Vol rate/Area] mL/min/{1.73_m2} Normal [facility] Comment on above: Result Comment: PERF ORMED BY: [place] [address] PATHOLOGIST BASE DRAW OPERATOR LUCIAN HAQ M.D. Performed By: #### T SH3, FE, TIBC, CMP, CBC #### [facility] [address] [place] [address] #### CELIAC #### [facility] , Creatinine [Mass/volume] in Serum or PlasmaOrdered By: Imad Asaad on 01-15-2025 Creatinine [Mass/Vol] Creatinine [Mass/v olume] in Serum or Plasma 0.60-1.20 [facility] Creatinine [Mass/Vol] 0.67 mg/dL Normal 0.60-1.20 [facility] Comment on above: Performed By: #### T SH3, FE, TIBC, CMP, CBC #### [facility] [address] [place] [address] #### CELIAC #### [facility] , No Panel InformationOrdered By: Imad Asaad on 01-15-2025 Estimated GFR (CKD-EPI) > 60.0 mL/Min [facility] Creatinine Clearance (Chem N/A [facility] Urea nitrogen [Mass/volume] in Serum or PlasmaOrdered By: Imad Asaad on 01-15-2025 Urea nitrogen [Mass/Vol] Urea nitrogen [Mass/volume] in Serum or Plasma 04-13 [facility] Urea nitrogen [Mass/Vol] 9 mg/dL Normal 04-13 [facility] Comment on above: Performed By: #### T SH3, FE, TIBC, CMP, CBC #### [facility] [address] [place] [address] #### CELIAC #### [facility] , CNNURSEon 01-12-2025 CNNURSE Normal [facility] Pathology study report docum entOrdered By: Flo Cobb on 01-11-2025 Pathology study [facility] Other Phone: Alex 01-10-2025 L ------ Specimen: [id number] Received: 01/10/25 Status: BREANN Mendozaarjun Num: [id number] Spec Type: Surgical Subm Dr: Rey Schrader MD Tissues: A Colon Biopsy (SIGMOID POLYPECTOMY) Procedures: Jagjit LARA/Summer L4 Age/ Patient Sex Location Account Attending Physician Mirian Corrales 69/F [id number] Rey Schrader MD SPEC NUM: [id number] RECD: 01/10/25 STATUS: BREANN MENDOZAArjun NUM: [id number] MIRNA: 01/10/[address] [facility] [address]: Rey Schrader MD ENTERED: 01/10/[address] [facility] [address]: SPEC TYPE: Surgical DEPT: S ENTERED BY: [id number] RECV BY: [id number] ORDERED: HE/2, Gross/Micro L4 ORDERED: HE/2, Gross/Micro [...] submitted in a single cassette. (1, ns, [id number] A) CPT Codes 20934 Specimen: [id number] Received: 01/10/25 Status: REBECCALavell Leavitt Num: [id number] Spec Type: Surgical Subm Dr: Rey Schrader MD Tissues: A Colon Biopsy (SIGMOID POLYPECTOMY) Procedures: HE/2, Gross/Micro L4 Patient: Mirian Corrales [id number] (Continued) Signed (signature on file) Flo Cobb Jr., MD 01/11/25 1653 Normal [facility] Normal [facility] Urinalysis macro (dipstick) panel (U)on 01-09-2025 Bilirubin, UA Negative Negative - 4(70) +++ mg/dL [facility] Blood, UA Positive Negative - 50 Kirk/mcL [facility] Comment on above: trace-intact Clarity, UA Clear [facility] Color, UA Yellow [facility] Glucose, UA Negative Negative - 1999(110) ++++ mg/dL [facility] Interpretation and review of laboratory results Abnormal [facility] Ketones, UA Negative Negative - 160(16) ++++ mg/dL [facility] Leukocytes, UA Negative Negative - 500+++ Prakash/mcL [facility] Nitrite, UA Negative Negative - Positive [facility] pH, UA 7 5 - 9 [facility] Protein, UA Negative Negative - 2000(20) ++++ mg/dL [facility] Spec Grav, UA 1.015 1 - 1.03 [facility] Urobilinogen, UA 0.2 0.2 - 12 mg/dL [facility] CNNURSE Normal [facility] CNNURSEon 01-02-2025 CNNURSE Normal [facility] CNNURSEon 12-29-2024 CNNURSE Normal [facility] CNPNon 12-29-2024 CNPN Normal [facility] CNNURSEon 12-26-2024 CNNURSE Normal [facility] CNNURSEon 12-20-2024 CNNURSE Normal [facility] CNNURSEon 12-18-2024 CNNURSE Normal [facility] CNNURSEon 12-15-2024 CNNURSE Normal [facility] CNNURSEon 12-13-2024 CNN[facility]SE Normal [facility] CNNURSEon 12-11-2024 CNNURSE Normal [facility] CNNURSEon 12-08-2024 CNN[facility]SE Normal [facility] CNNURSEon 12-06-2024 CNN[facility]SE Normal [facility] CNNURSEon 12-04-2024 CNN[facility]SE Normal [facility] CNNURSEon 12-01-2024 CNNURSE Normal [facility] CNNURSEon 11-29-2024 CNN[facility]SE Normal [facility] CNNURSEon 11-27-2024 CNNURSE Normal [facility] CNNURSEon 11-24-2024 CNNURSE Normal [facility] Pathology study report docum entOrdered By: Ange Browne on 11-24-2024 Pathology study [facility] Other Phone: [phone] 11-23-2024 L ------ Specimen: [id number] Received: 11/23/24 Status: BREANN Leavitt Num: [id number] Spec Type: Surgical Subm Dr: Rey Schrader MD Tissues: A Small Intestine - Biopsy/Polyp (SMALL BOWEL BX) Procedures: HE/2, Gross/Micro L4 Age/ Patient Sex Location Account Attending Physician Mirian Corrales 69/F [id number] Rey Schrader MD SPEC NUM: [id number] RECD: 11/23/24 STATUS: BREANN LEAVITT NUM: [id number] MIRNA: 11/23/24-[address] [facility] [address]: Rey Schrader MD ENTERED: 11/23/24-[address] [facility] [address]: VICKI TYPE: Surgical DEPT: S ENTERED BY: [id number] RECV BY: [id number] ORDERED: HE/2, Gross/Micro L4 ORDERED: HE/2, Gross/Micro [...] submitted in a single cassette. (1, ns, [id number] A) CPT Codes 23464 Specimen: [id number] Received: 11/23/24 Status: BREANN Leavitt Num: [id number] Spec Type: Surgical Subm Dr: Rey Schrader MD Tissues: A Small Intestine - Biopsy/Polyp (SMALL BOWEL BX) Procedures: Jagjit LARA/Summer L4 Patient: Mirian Corrales [id number] (Continued) Signed (signature on file) Ange Browne MD 11/24/24 1036 Normal [facility] Physician [facility] CNNURSEon 11-22-2024 CNNURSE Normal [facility] ALGN RESP DISEASE PROF REG 5 on 11-20-2024 A. alternata IgE Qn (S) <0.35 Normal <0.35 [facility] Comment on above: Order Comment: Speci men Type: BLOOD SPECIMENOrdering Facility: [facility] Address: [address] [place] [address] Performed By: #### L [id number] ####[facility] LABCLIA [id number] [place] [address] [place] A. alternata IgE RAST class (S) Class 0 Normal Class 0 [facility] Comment on above: Order Comment: Speci men Type: BLOOD SPECIMENOrdering Facility: [facility] Address: [address] [place] [address] Performed By: #### L [id number] ####[facility] LABCLIA [id number] [place] [address] [place] A. fumigatus IgE Qn (S) <0.35 Normal <0.35 [facility] Comment on above: Order Comment: Speci men Type: BLOOD SPECIMENOrdering Facility: [facility] Address: [address] [place] [address] Performed By: #### L [id number] ####[facility] LABCLIA [id number] [place] [address] [place] A. fumigatus IgE RAST class (S) Class 0 Normal Class 0 [facility] Comment on above: Order Comment: Speci men Type: BLOOD SPECIMENOrdering Facility: [facility] Address: [address] [place] [address] Performed By: #### L [id number] ####[facility] LABCLIA [id number] [place] [address] [place] Surinamese house dust mite IgE Qn (S) <0.35 Normal <0.35 [facility] Comment on above: Order Comment: Speci men Type: BLOOD SPECIMENOrdering Facility: [facility] Address: [address] [place] [address] Performed By: #### L [id number] ####[facility] LABCLIA [id number] [place] [address] [place] Surinamese house dust mite IgE RAST class (S) Class 0 Normal Class 0 [facility] Comment on above: Order Comment: Speci men Type: BLOOD SPECIMENOrdering Facility: [facility] Address: [address] [place] [address] Performed By: #### L [id number] ####[facility] LABCLIA [id number] [place] [address] [place] Bermuda grass IgE Qn (S) <0.35 Normal <0.35 [facility] Comment on above: Order Comment: Speci men Type: BLOOD SPECIMENOrdering Facility: [facility] Address: [address] [place] [address] Performed By: #### L [id number] ####[facility] LABCLIA [id number] [place] [address] [place] Bermuda grass IgE RAST class (S) Class 0 Normal Class 0 [facility] Comment on above: Order Comment: Speci men Type: BLOOD SPECIMENOrdering Facility: [facility] Address: [address] [place] [address] Performed By: #### L [id number] ####[facility] LABCLIA [id number] [place] [id number] [place] Boxelder IgE Qn (S) <0.35 Normal <0.35 [facility] Comment on above: Order Comment: Speci men Type: BLOOD SPECIMENOrdering Facility: [facility] Address: [address] [place] [address] Performed By: #### L [id number] ####[facility] LABCLIA [id number] [place] [id number] [place] Boxelder IgE RAST class (S) Class 0 Normal Class 0 [facility] Comment on above: Order Comment: Speci men Type: BLOOD SPECIMENOrdering Facility: [facility] Address: [address] [place] [address] Performed By: #### L [id number] ####[facility] LABCLIA [id number] [place] [address] [place] C. herbarum IgE Qn (S) <0.35 Normal <0.35 [facility] Comment on above: Order Comment: Speci men Type: BLOOD SPECIMENOrdering Facility: [facility] Address: [address] [place] [address] Performed By: #### L [id number] ####[facility] LABCLIA [id number] [place] [address] [place] C. herbarum IgE RAST class (S) Class 0 Normal Class 0 [facility] Comment on above: Order Comment: Speci men Type: BLOOD SPECIMENOrdering Facility: [facility] Address: [address] [place] [address] Performed By: #### L [id number] ####[facility] LABIA [id number] [place] [address] [place] Cat dander IgE Qn (S) <0.35 Normal <0.35 [facility] Comment on above: Order Comment: Speci men Type: BLOOD SPECIMENOrdering Facility: [facility] Address: [address] [place] [address] Performed By: #### L [id number] ####[facility] LABCLIA [id number] [place] [address] [place] Cat dander IgE RAST class (S) Class 0 Normal Class 0 [facility] Comment on above: Order Comment: Speci men Type: BLOOD SPECIMENOrdering Facility: [facility] Address: [address] [place] [address] Performed By: #### L [id number] ####[facility] LABCLIA [id number] [place] [id number] [place] Cocklebur IgE Qn (S) <0.35 Normal <0.35 [facility] Comment on above: Order Comment: Speci men Type: BLOOD SPECIMENOrdering Facility: [facility] Address: [address] [place] [address] Performed By: #### L [id number] ####[facility] LABCLIA [id number] [place] [id number] [place] Cocklebur IgE RAST class (S) Class 0 Normal Class 0 [facility] Comment on above: Order Comment: Speci men Type: BLOOD SPECIMENOrdering Facility: [facility] Address: [address] [place] [address] Performed By: #### L [id number] ####[facility] LABCLIA [id number] [place] [address] [place] Cockroach IgE Qn (S) <0.35 Normal <0.35 [facility] Comment on above: Order Comment: Speci men Type: BLOOD SPECIMENOrdering Facility: [facility] Address: [address] [place] [address] Performed By: #### L [id number] ####[facility] LABCLIA [id number] [place] [address] [place] Cockroach IgE RAST class (S) Class 0 Normal Class 0 [facility] Comment on above: Order Comment: Speci men Type: BLOOD SPECIMENOrdering Facility: [facility] Address: [address] [place] [address] Performed By: #### L [id number] ####[facility] LABCLIA [id number] [place] [id number] [place] Common Pigweed IgE Qn (S) <0.35 Normal <0.35 [facility] Comment on above: Order Comment: Speci men Type: BLOOD SPECIMENOrdering Facility: [facility] Address: [address] [place] [address] Performed By: #### L [id number] ####[facility] LABCLIA [id number] [address] [place] Common Pigweed IgE RAST class (S) Class 0 Normal Class 0 [facility] Comment on above: Order Comment: Speci men Type: BLOOD SPECIMENOrdering Facility: [facility] Address: [address] [place] [address] Performed By: #### L [id number] ####[facility] LABCLIA [id number] [place] [address] [place] Common Ragweed IgE Qn (S) <0.35 Normal <0.35 [facility] Comment on above: Order Comment: Speci men Type: BLOOD SPECIMENOrdering Facility: [facility] Address: [address] [place] [address] Performed By: #### L [id number] ####[facility] LABCLIA [id number] [address] [place] Common Ragweed IgE RAST class (S) Class 0 Normal Class 0 [facility] Comment on above: Order Comment: Speci men Type: BLOOD SPECIMENOrdering Facility: [facility] Address: [address] [place] [address] Performed By: #### L [id number] ####[facility] LABCLIA [id number] [place] [id number] [place] IgE Qn (S) <0.35 Normal <0.35 [facility] Comment on above: Order Comment: Speci men Type: BLOOD SPECIMENOrdering Facility: [facility] Address: [address] [place], [place] [address] Performed By: #### L [id number] ####[facility] LABCLIA [id number] [place] [id number] [place] IgE RAST class (S) Class 0 Normal Class 0 [facility] Comment on above: Order Comment: Speci men Type: BLOOD SPECIMENOrdering Facility: [facility] Address: [address] [place] [address] Performed By: #### L [id number] ####[facility] LABCLIA [id number] [place] [address] [place] Dog dander IgE Qn (S) <0.35 Normal <0.35 [facility] Comment on above: Order Comment: Speci men Type: BLOOD SPECIMENOrdering Facility: [facility] Address: [address] [place] [address] Performed By: #### L [id number] ####[facility] LABCLIA [id number] [address] STATES OF [facility] Dog dander IgE RAST class (S) Class 0 Normal Class 0 [facility] Comment on above: Order Comment: Speci men Type: BLOOD SPECIMENOrdering Facility: [facility] Address: [address] [place] [address] Performed By: #### L [id number] ####[facility] LABCLIA [id number] [place] [address] [place] Zimbabwean plantain IgE Qn (S) <0.35 Normal <0.35 [facility] Comment on above: Order Comment: Speci men Type: BLOOD SPECIMENOrdering Facility: [facility] Address: [address] [place] [address] Performed By: #### L [id number] ####[facility] LABCLIA [id number] [place] [address] [place] Zimbabwean plantain IgE RAST class (S) Class 0 Normal Class 0 [facility] Comment on above: Order Comment: Speci men Type: BLOOD SPECIMENOrdering Facility: [facility] Address: [address] [place] [address] Performed By: #### L [id number] ####[facility] LABCLIA [id number] [place] [address] [place] house dust mite IgE Qn (S) <0.35 Normal <0.35 [facility] Comment on above: Order Comment: Speci men Type: BLOOD SPECIMENOrdering Facility: [facility] Address: [address] [place] [address] Performed By: #### L [id number] ####[facility] LABCLIA [id number] [place] [address] [place] house dust mite IgE RAST class (S) Class 0 Normal Class 0 [facility] Comment on above: Order Comment: Speci men Type: BLOOD SPECIMENOrdering Facility: [facility] Address: [address] [place] [address] Performed By: #### L [id number] ####[facility] LABCLIA [id number] [place] [address] [place] Goosefoot IgE Qn (S) <0.35 Normal <0.35 [facility] Comment on above: Order Comment: Speci men Type: BLOOD SPECIMENOrdering Facility: [facility] Address: [address] [place] [address] Performed By: #### L [id number] ####[facility] LABCLIA [id number] [place] [address] [place] Goosefoot IgE RAST class (S) Class 0 Normal Class 0 [facility] Comment on above: Order Comment: Speci men Type: BLOOD SPECIMENOrdering Facility: [facility] Address: [address] [place] [address] Performed By: #### L [id number] ####[facility] LABCLIA [id number] [place] [id number] [place] Jake grass smut IgE Qn (S) <0.35 Normal <0.35 [facility] Comment on above: Order Comment: Speci men Type: BLOOD SPECIMENOrdering Facility: [facility] Address: [address] [place], [place] [address] Performed By: #### L [id number] ####[facility] LABCLIA [id number] [address] [place] [address] [place] Jake grass smut IgE RAST class (S) Class 0 Normal Class 0 [facility] Comment on above: Order Comment: Speci men Type: BLOOD SPECIMENOrdering Facility: [facility] Address: [address] [place], [place] [address] Performed By: #### L [id number] ####[facility] LABCLIA [id number] [address] [place] [address] [place] IgE Qn (S) <0.35 Normal <0.35 [facility] Comment on above: Order Comment: Speci men Type: BLOOD SPECIMENOrdering Facility: [facility] Address: [address] [place], [place] [address] Performed By: #### L [id number] ####[facility] LABCLIA [id number] [address] [place] [address] [place] IgE RAST class (S) Class 0 Normal Class 0 [facility] Comment on above: Order Comment: Speci men Type: BLOOD SPECIMENOrdering Facility: [facility] Address: [address] [place], [place] [address] Performed By: #### L [id number] ####[facility] LABCLIA [id number] [facility] [address] [place] [address] [place] Cardenas Elder IgE Qn (S) <0.35 Normal <0.35 [facility] Comment on above: Order Comment: Speci men Type: BLOOD SPECIMENOrdering Facility: [facility] Address: [address] [place], [place] [address] Performed By: #### L [id number] ####[facility] LABCLIA [id number] [place] [id number] [place] Cardenas Elder IgE RAST class (S) Class 0 Normal Class 0 [facility] Comment on above: Order Comment: Speci men Type: BLOOD SPECIMENOrdering Facility: [facility] Address: [address] [place] [address] Performed By: #### L [id number] ####[facility] LABCLIA [id number] [place] [address] [place] Mouse urine proteins IgE Qn (S) <0.35 Normal <0.35 [facility] Comment on above: Order Comment: Speci men Type: BLOOD SPECIMENOrdering Facility: [facility] Address: [address] [place] [address] Performed By: #### L [id number] ####[facility] LABCLIA [id number] [place] [address] [place] Mouse urine proteins IgE RAST class (S) Class 0 Normal Class 0 [facility] Comment on above: Order Comment: Speci men Type: BLOOD SPECIMENOrdering Facility: [facility] Address: [address] [place] [address] Performed By: #### L [id number] ####[facility] LABCLIA [id number] [place] [address] [place] Pecan or Donley Tree IgE Qn (S) <0.35 Normal <0.35 [facility] Comment on above: Order Comment: Speci men Type: BLOOD SPECIMENOrdering Facility: [facility] Address: [address] [place] [address] Performed By: #### L [id number] ####[facility] LABCLIA [id number] [place] [address] [place] Pecan or Donley Tree IgE RAST class (S) Class 0 Normal Class 0 [facility] Comment on above: Order Comment: Speci men Type: BLOOD SPECIMENOrdering Facility: [facility] Address: [address] [place] [address] Performed By: #### L [id number] ####[facility] LABCLIA [id number] [place] [address] [place] Sheep [place] IgE Qn (S) <0.35 Normal <0.35 [facility] Comment on above: Order Comment: Speci men Type: BLOOD SPECIMENOrdering Facility: [facility] Address: [address] [place] [address] Performed By: #### L [id number] ####[facility] LABCLIA [id number] [place] [address] [place] Sheep [place] IgE RAST class (S) Class 0 Normal Class 0 [facility] Comment on above: Order Comment: Speci men Type: BLOOD SPECIMENOrdering Facility: [facility] Address: [address] [place] [address] Performed By: #### L [id number] ####[facility] LABCLIA [id number] [place] [address] [place]ch IgE Qn (S) <0.35 Normal <0.35 [facility] Comment on above: Order Comment: Speci men Type: BLOOD SPECIMENOrdering Facility: [facility] Address: [address] [place] [address] Performed By: #### L [id number] ####[facility] LABCLIA [id number] [place] [address] [place] IgE RAST class (S) Class 0 Normal Class 0 [facility] Comment on above: Order Comment: Speci men Type: BLOOD SPECIMENOrdering Facility: [facility] Address: [address] [place] [address] Performed By: #### L [id number] ####[facility] LABCLIA [id number] [place] [address] [place] IgE Qn (S) <0.35 Normal <0.35 [facility] Comment on above: Order Comment: Speci men Type: BLOOD SPECIMENOrdering Facility: [facility] Address: [address] [place], [place] [address] Performed By: #### L [id number] ####[facility] LABCLIA [id number] [address] [address] [place] IgE RAST class (S) Class 0 Normal Class 0 [facility] Comment on above: Order Comment: Speci men Type: BLOOD SPECIMENOrdering Facility: [facility] Address: [address] [place], [place] [address] Performed By: #### L [id number] ####[facility] LABCLIA [id number] [place] [address] [place] IgE Qn (S) <0.35 Normal <0.35 [facility] Comment on above: Order Comment: Speci men Type: BLOOD SPECIMENOrdering Facility: [facility] Address: [address] [place] [address] Performed By: #### L [id number] ####[facility] LABCLIA [id number] [place] [address] [place] IgE RAST class (S) Class 0 Normal Class 0 [facility] Comment on above: Order Comment: Speci men Type: BLOOD SPECIMENOrdering Facility: [facility] Address: [address] [place], [place] [address] Performed By: #### L [id number] ####[facility] LABCLIA [id number] [place] [id number] [place] IgE Qn (S) <0.35 Normal <0.35 [facility] Comment on above: Order Comment: Speci men Type: BLOOD SPECIMENOrdering Facility: [facility] Address: [address] [place], [place] [address] Performed By: #### L [id number] ####[facility] LABCLIA [id number] [address] [place] [address] [place] IgE RAST class (S) Class 0 Normal Class 0 [facility] Comment on above: Order Comment: Speci men Type: BLOOD SPECIMENOrdering Facility: [facility] Address: [address] [place], [place] [address] Performed By: #### L [id number] ####[facility] LABCLIA [id number] [address] [place] [address] [place] White mulberry IgE Qn (S) <0.35 Normal <0.35 [facility] Comment on above: Order Comment: Speci men Type: BLOOD SPECIMENOrdering Facility: [facility] Address: [address] [place], [place] [address] Performed By: #### L [id number] ####[facility] LABCLIA [id number] [place] [id number] [place] White mulberry IgE RAST class (S) Class 0 Normal Class 0 [facility] Comment on above: Order Comment: Speci men Type: BLOOD SPECIMENOrdering Facility: [facility] Address: [address] [place], [place] [address] Performed By: #### L [id number] ####[facility] LABCLIA [id number] [place] [id number] [place] IgE Qn (S) <0.35 Normal <0.35 [facility] Comment on above: Order Comment: Speci men Type: BLOOD SPECIMENOrdering Facility: [facility] Address: [address] [place] [address] Performed By: #### L [id number] ####[facility] LABCLIA [id number] [place] [id number] [place] IgE RAST class (S) Class 0 Normal Class 0 [facility] Comment on above: Order Comment: Speci men Type: BLOOD SPECIMENOrdering Facility: [facility] Address: [facility] [place] [address] Performed By: #### L [id number] ####[facility] LABCLIA [id number] [place] [address] [place] ALLERGEN SKIN TEST-FOODon ALLERGENS: Time applied: 1000 Time read: 1015 [...] = 0 mm ALLERGENS:TREE AND NUT 1. [place] 1:20 P: W = 0 mm F = 0 mm 2. [place] Nut 1:20 P: W = 0 mm [...] 0 mm F = 0 mm 8. Battiest, Black 1:20 P: W = 0 mm F = 0 mm 9. Battiest, [place] 1:20 P: W = 0 mm F = 0 mm ALLERGENS:GRAIN 1. Barley 1:20 P: W = 0 mm F = 0 mm 2. Buckwheat 1:20 P: W = 0 mm F = 0 mm 3. [place] 1:40 P: W = 0 mm F = 0 mm 4. Oat 1:20 P: W = 0 mm F = 0 mm 5. Rice 1:20 P: W = 0 mm F = 0 mm 6. [place] 1:20 P: W = 0 mm F = 0 mm 7. Wheat, whole 1:20 P: W = 0 mm F = 0 mm [facility] CBC W Auto Differential pane l (Bld)on 11-20-2024 Basophils (Bld) [#/Vol] 0.09 10*3/uL [facility] Differential cell count method Nom (Bld) Auto [facility] Eosinophils (Bld) [#/Vol] 0.49 10*3/uL High [facility] Immature granulocytes (Bld) [#/Vol] [facility] Immature granulocytes/100 WBC (Bld) 0.3 % [facility] Lymphocytes (Bld) [#/Vol] 0.83 10*3/uL Low [facility] Monocytes (Bld) [#/Vol] 0.45 10*3/uL [facility] Neutrophils (Bld) [#/Vol] 4.58 10*3/uL [facility] Nucleated RBC (Bld) [#/Vol] [facility] Nucleated RBC/100 WBC (Bld) [Ratio] 0 % /100 WBC [facility] Platelet mean volume (Bld) [Entitic vol] 9.9 fL 9.0 - 12.7 fL [facility] Platelets (Bld) [#/Vol] 326 10*3/uL [facility] WBC (Bld) [#/Vol] 6.46 10*3/uL [facility] Basophils (Bld) [#/Vol] 0.09 10*3/uL Normal <0.11 [facility] Comment on above: Order Comment: Speci men Type: BLOOD SPECIMENOrdering Facility: [facility] Address: [address] [place] [address] Performed By: #### 5 7021-8 ####[facility] [id number] [place] [address] [place] Basophils/100 WBC (Bld) 1.4 % Normal [facility] Comment on above: Order Comment: Speci men Type: BLOOD SPECIMENOrdering Facility: [facility] Address: [address] [place] [address] Performed By: #### 5 7021-8 ####[facility] LWIA [id number] [place] [address] [place] Differential cell count method Nom (Bld) Auto Normal [facility] Comment on above: Order Comment: Speci men Type: BLOOD SPECIMENOrdering Facility: [facility] Address: [address] [place] [address] Performed By: #### 5 7021-8 ####[facility] LWCLIA [id number] [place] [address] [place] Eosinophils (Bld) [#/Vol] 0.49 10*3/uL High <0.46 [facility] Comment on above: Order Comment: Speci men Type: BLOOD SPECIMENOrdering Facility: [facility] Address: [address] [place] [address] Performed By: #### 5 7021-8 ####[facility] LWCLIA [id number] [address] [place] Eosinophils/100 WBC (Bld) 7.6 % Normal [facility] Comment on above: Order Comment: Speci men Type: BLOOD SPECIMENOrdering Facility: [facility] Address: [address] [place] [address] Performed By: #### 5 7021-8 ####[facility] LWCLIA [id number] [address] [place] Erythrocyte distribution width (RBC) [Ratio] 12.9 % Normal 11.5-15.0 [facility] Comment on above: Order Comment: Speci men Type: BLOOD SPECIMENOrdering Facility: [facility] Address: [address] [place] [address] Performed By: #### 5 7021-8 ####[facility] LWCLIA [id number] [address] [place] Hematocrit (Bld) [Volume fraction] 35.4 % Low 36.0-46.0 [facility] Comment on above: Order Comment: Speci men Type: BLOOD SPECIMENOrdering Facility: [facility] Address: [address] [place] [address] Performed By: #### 5 7021-8 ####[facility] LWCLIA [id number] [place] [id number] [place] Hemoglobin (Bld) [Mass/Vol] 11.0 g/dL Low 11.5-15.5 [facility] Comment on above: Order Comment: Speci men Type: BLOOD SPECIMENOrdering Facility: [facility] Address: [address] [place] [address] Performed By: #### 5 7021-8 ####[facility] LWCLIA [id number] [place] [address] [place] Immature granulocytes (Bld) [#/Vol] 10*3/uL Normal <0.10 [facility] Comment on above: Order Comment: Speci men Type: BLOOD SPECIMENOrdering Facility: [facility] Address: [address] [place] [address] Performed By: #### 5 7021-8 ####[facility] LWIA [id number] [place] [address] [place] Immature granulocytes/100 WBC (Bld) 0.3 % Normal [facility] Comment on above: Order Comment: Speci men Type: BLOOD SPECIMENOrdering Facility: [facility] Address: [address] [place] [address] Performed By: #### 5 7021-8 ####[facility] LWCLIA [id number] [place] [id number] [place] Lymphocytes (Bld) [#/Vol] 0.83 10*3/uL Low 1.00-4.00 [facility] Comment on above: Order Comment: Speci men Type: BLOOD SPECIMENOrdering Facility: [facility] Address: [address] [place] [address] Performed By: #### 5 7021-8 ####[facility] LWCLIA [id number] [place] [id number] [place] Lymphocytes/100 WBC (Bld) 12.8 % Normal [facility] Comment on above: Order Comment: Speci men Type: BLOOD SPECIMENOrdering Facility: [facility] Address: [address] [place] [address] Performed By: #### 5 7021-8 ####[facility] LWCLIA [id number] [address] STATES [facility] MCH (RBC) [Entitic mass] 28.4 pg Normal 26.0-34.0 [facility] Comment on above: Order Comment: Speci men Type: BLOOD SPECIMENOrdering Facility: [facility] Address: [address] [place] [address] Performed By: #### 5 7021-8 ####[facility] LWIA [id number] [address] STATES [facility] MCHC (RBC) [Mass/Vol] 31.1 g/dL Normal 30.5-36.0 [facility] Comment on above: Order Comment: Speci men Type: BLOOD SPECIMENOrdering Facility: [facility] Address: [address] [place] [address] Performed By: #### 5 7021-8 ####[facility] LWCLIA [id number] [place] [address] [place] MCV (RBC) [Entitic vol] 91.5 fL Normal 80.0-100.0 [facility] Comment on above: Order Comment: Speci men Type: BLOOD SPECIMENOrdering Facility: [facility] Address: [address] [place] [address] Performed By: #### 5 7021-8 ####[facility] LWCLIA [id number] [place] [id number] [place] Monocytes (Bld) [#/Vol] 0.45 10*3/uL Normal <0.87 [facility] Comment on above: Order Comment: Speci men Type: BLOOD SPECIMENOrdering Facility: [facility] Address: [address] [place] [address] Performed By: #### 5 7021-8 ####[facility] LWCLIA [id number] [place] [address] [place] Monocytes/100 WBC (Bld) 7.0 % Normal [facility] Comment on above: Order Comment: Speci men Type: BLOOD SPECIMENOrdering Facility: [facility] Address: [address] [place] [address] Performed By: #### 5 7021-8 ####[facility] LWCLIA [id number] [place] [address] [place] Neutrophils (Bld) [#/Vol] 4.58 10*3/uL Normal 1.45-7.50 [facility] Comment on above: Order Comment: Speci men Type: BLOOD SPECIMENOrdering Facility: [facility] Address: [address] [place] [address] Performed By: #### 5 7021-8 ####[facility] LWCLIA [id number] [place] [id number] [place] Neutrophils/100 WBC (Bld) 70.9 % Normal [facility] Comment on above: Order Comment: Speci men Type: BLOOD SPECIMENOrdering Facility: [facility] Address: [address] [place] [address] Performed By: #### 5 7021-8 ####[facility] LWCLIA [id number] [place] [id number] [place] Nucleated RBC (Bld) [#/Vol] 10*3/uL Normal <0.01 [facility] Comment on above: Order Comment: Speci men Type: BLOOD SPECIMENOrdering Facility: [facility] Address: [address] [place] [address] Performed By: #### 5 7021-8 ####[facility] LWCLIA [id number] [place] [id number] [place] Nucleated RBC/100 WBC (Bld) [Ratio] 0.0 /100 WBC Normal [facility] Comment on above: Order Comment: Speci men Type: BLOOD SPECIMENOrdering Facility: [facility] Address: [address] [place] [address] Performed By: #### 5 7021-8 ####[facility] LWCLIA [id number] [place] [id number] [place] [facility] Platelet mean volume (Bld) [Entitic vol] 9.9 fL Normal 9.0-12.7 [facility] Comment on above: Order Comment: Speci men Type: BLOOD SPECIMENOrdering Facility: [facility] Address: [address] [place] [address] Performed By: #### 5 7021-8 ####[facility] LWCLIA [id number] [place] [id number] [place] Platelets (Bld) [#/Vol] 326 10*3/uL Normal 150-400 [facility] Comment on above: Order Comment: Speci men Type: BLOOD SPECIMENOrdering Facility: [facility] Address: [address] [place] [address] Performed By: #### 5 7021-8 ####[facility] LWCLIA [id number] [place] [id number] [place] RBC (Bld) [#/Vol] 3.87 10*6/uL Low 3.90-5.20 [facility] Comment on above: Order Comment: Speci men Type: BLOOD SPECIMENOrdering Facility: [facility] Address: [address] [place] [address] Performed By: #### 5 7021-8 ####[facility] LWCLIA [id number] [place] [id number] [place] WBC (Bld) [#/Vol] 6.46 10*3/uL Normal 3.70-11.00 [facility] Comment on above: Order Comment: Speci men Type: BLOOD SPECIMENOrdering Facility: [facility] Address: [address] [place] [address] Performed By: #### 5 7021-8 ####[facility] LWCLIA [id number] [address] [place] [facility] CBC W AUTO DIFF BLDon [facility] BASOPHILS # BLD AUTO 0.09 [facility] DIFFERENTIAL METHOD BLD Auto [facility] EOSINOPHIL # BLD AUTO 0.49 High [facility] LYMPHOCYTES # BLD AUTO 0.83 Low [facility] MONOCYTES # BLD AUTO 0.45 [facility] NEUTROPHILS # BLD AUTO 4.58 [facility] NRBC # BLD AUTO <0.01 [facility] NRBC/100 WBC BLD-RTO 0 /100 WBC [facility] PLATELET # BLD AUTO 326 [facility] PMV BLD AUTO 9.9 fL 9.0 - 12.7 fL [facility] WBC # BLD AUTO 6.46 [facility] IMM GRANULOCYTES # BLD AUTO <0.03 [facility] IMM GRANULOCYTES/LEUK NFR BLD AUTO 0.3 % [facility] Specimen Type: BLOOD SPECIMEN [facility] Address: [address] [place] [address] Original Ordering Provider[facility] CNNURSEon 11-20-2024 CNNURSE Normal [facility] CNOVon 11-20-2024 CNOV Normal [facility] IgE SerPl-aCncon 11-20-2024 IgE Qn 284.0 kU/l High <114.0 [facility] Comment on above: Order Comment: Speci men Type: BLOOD SPECIMENOrdering Facility: [facility] Address: [address] [place] [address] Performed By: #### 1 9113-0, TRYPT ####[facility] LABCLIA [id number] [address] [facility] - Hematology and Cell countson 11-20-2024 Basophils/100 WBC (Bld) 1.4 % [facility] Eosinophils/100 WBC (Bld) 7.6 % [facility] Erythrocyte distribution width (RBC) [Ratio] 12.9 % 11.5 - 15.0 % [facility] Hematocrit (Bld) [Volume fraction] 35.4 % Low 36.0 - 46.0 % [facility] Hemoglobin (Bld) [Mass/Vol] 11 g/dL Low 11.5 - 15.5 g/dL [facility] Lymphocytes/100 WBC (Bld) 12.8 % [facility] MCH (RBC) [Entitic mass] 28.4 pg 26.0 - 34.0 pg [facility] MCHC (RBC) [Mass/Vol] 31.1 g/dL 30.5 - 36.0 g/dL [facility] MCV (RBC) [Entitic vol] 91.5 fL 80.0 - 100.0 fL [facility] Monocytes/100 WBC (Bld) 7 % [facility] Neutrophils/100 WBC (Bld) 70.9 % [facility] RBC (Bld) [#/Vol] 3.87 10*6/uL Low 3.90 - 5.2 0 m/uL [facility] No Panel Informationon 11-20 Interpretation and review of laboratory results Abnormal [facility] PROTEIN ELECTROPHORESIS SERU M (P)on 11-20-2024 Albumin [Mass/Vol] 3.98 g/dL Normal 3.43-5.41 [facility] Comment on above: Order Comment: Speci men Type: BLOOD SPECIMENOrdering Facility: [facility] Address: [address] [place] [address] Performed By: #### L [id number] ####[facility] [id number] [place] [address] [place] Alpha 1 globulin Elph [Mass/Vol] 0.39 g/dL Normal 0.18-0.43 [facility] Comment on above: Order Comment: Speci men Type: BLOOD SPECIMENOrdering Facility: [facility] Address: [address] [place] [address] Performed By: #### L [id number] ####[facility] LABIA [id number] [place] [address] [place] Alpha 2 globulin Elph [Mass/Vol] 0.63 g/dL Normal 0.42-0.98 [facility] Comment on above: Order Comment: Speci men Type: BLOOD SPECIMENOrdering Facility: [facility] Address: [address] [place] [address] Performed By: #### L [id number] ####[facility] LABCLIA [id number] [address] [address] [place] Beta globulin Elph [Mass/Vol] 0.95 g/dL Normal 0.61-1.17 [facility] Comment on above: Order Comment: Speci men Type: BLOOD SPECIMENOrdering Facility: [facility] Address: [address] [place] [address] Performed By: #### L [id number] ####[facility] LABCLIA [id number] [place] [address] [place] Gamma globulin Elph [Mass/Vol] 1.75 g/dL High 0.53-1.51 [facility] Comment on above: Order Comment: Speci men Type: BLOOD SPECIMENOrdering Facility: [facility] Address: [address] [place] [address] Performed By: #### L [id number] ####[facility] LABCLIA [id number] [place] [address] [place] M-PROTEIN LOCATION Normal [facility] Comment on above: Order Comment: Speci men Type: BLOOD SPECIMENOrdering Facility: [facility] Address: [address] [place] [address] Result Comment: Not Applicable. Performed By: #### L [id number] ####[facility] LABCLIA [id number] [address] [address] [place] Protein Fractions [Interp] No definitive M protein is identified on protein electrophoresis. Normal No definitive M protein is identified on protein electrophor esis. [facility] Comment on above: Order Comment: Speci men Type: BLOOD SPECIMENOrdering Facility: [facility] Address: [address] [place], [place] [address] Performed By: #### L [id number] ####[facility] LABCLIA [id number] [place] [address] [place] Protein.monoclonal Elph [Mass/Vol] 0.00 g/dL Normal <=0.00 [facility] Comment on above: Order Comment: Speci men Type: BLOOD SPECIMENOrdering Facility: [facility] Address: [address] [place] [address] Performed By: #### L [id number] ####[facility] LABCLIA [id number] [address], [place] [address] [place] SPE STAFF REVIEW Reviewed by Kristian Lockwood MD, Ph.D ([id number]) Normal [facility] Comment on above: Order Comment: Speci men Type: BLOOD SPECIMENOrdering Facility: [facility] Address: [address] [place] [address] Performed By: #### L [id number] ####[facility] LABCLIA [id number] [address], [place] [address] [place] Prot SerPl-mCncon 11-20-2024 Protein [Mass/Vol] 7.7 g/dL Normal 6.3-8.0 [facility] Comment on above: Order Comment: Speci men Type: BLOOD SPECIMENOrdering Facility: [facility] Address: [address] [place] [address] Performed By: #### 2 885-2, 2132-9 ####[facility] LABIA [id number] [place] [address] [place] TRYPTASE BLOODon 11-20-2024 Tryptase [Mass/Vol] 5.1 ug/L Normal <8.4 [facility] Comment on above: Order Comment: Speci men Type: BLOOD SPECIMENOrdering Facility: [facility] Address: [address] [place] [address] Performed By: #### 1 9113-0, TRYPT ####[facility] LABCLIA [id number] [address] [place] Vit B12 SerPl-mCncon 025 Cobalamin (Vitamin B12) [Mass/Vol] 592 pg/mL Normal 232-1245 [facility] Comment on above: Order Comment: Speci men Type: BLOOD SPECIMENOrdering Facility: [facility] Address: [address] [place] [address] Performed By: #### 2 885-2, 2132-9 ####[facility] LABCLIA [id number] [facility] [place] [address] [place] CNNURSEon 11-17-2024 CNNURSE Normal [facility] CNOVon 11-17-2024 CNOV Normal [facility] CNNURSEon 11-15-2024 CNNURSE Normal [facility] CNOVon 11-13-2024 CNOV Normal [facility] CNNURSEon 11-09-2024 CNNURSE Normal [facility] CNNURSEon 11-07-2024 CNNURSE Normal [facility] CNNURSEon 10-27-2024 CNNURSE Normal [facility] CNNURSEon 10-25-2024 CNNURSE Normal [facility] CNNURSEon 10-23-2024 CNNURSE Normal [facility] CNNURSEon 10-20-2024 CNNURSE Normal [facility] CNNURSEon 10-18-2024 CNNURSE Normal [facility] CNNURSEon 10-16-2024 CNNURSE Normal [facility] CNNURSEon 10-13-2024 CNNURSE Normal [facility] CNOVon 10-12-2024 CNOV Normal [facility] XR HIP 3V PELV+ AP/LAT RTon 10-12-2024 XR HIP 3V PELV+ AP/LAT RT Normal [facility] XR Pelvis and Hip - right AP and Lateral frogon 10-12-2024 * * *Final Report* * * DATE [...] the right hip. No other significant abnormality. Zipper Setter Lockstitch: QUINN Transcribe Date/Time: Oct 12 2024 3:26P Dictated by : USHA MILLS MD This examination was interpreted and the report reviewed and electronically signed by: USHA MILLS MD on Oct 12 2024 3:26PM EST DIVISION OF RADIOLOGY Provider, [facility] - 10/12/2024 * * *Final Report* * * DATE [...] the right hip. No other significant abnormality. Zipper Setter Lockstitch: [facility] Transcribe Date/Time: Oct 12 2024 3:26P Dictated by : USHA MILLS MD This examination was interpreted and the report reviewed and electronically signed by: USHA MILLS MD on Oct 12 2024 3:26PM EST [facility] Radiology Study observation (narrative) [facility] XR Pelvis and Hip - right AP and Lateral frogOrdered By: [facility] Provider on 10-12-2024 [facility] CNNURSEon 10-11-2024 CNNURSE Normal [facility] CNNURSEon 10-09-2024 CNNURSE Normal [facility] CNNURSEon 10-06-2024 CNNURSE Normal [facility] CNNURSEon 10-04-2024 CNNURSE Normal [facility] CNNURSEon 10-02-2024 CNNURSE Normal [facility] CELIACon 09-27-2024 DEAMIDATED GLIADIN ABS, IGA See Scanned Rpt [facility] DEAMIDATED GLIADIN ABS, IGG See Scanned Rpt [facility] ENDOMYSIAL ANTIBODY IGA See Scanned Rpt [facility] [facility] IMMUNOGLOBULIN A, QN, SERUM See Scanned Rpt [facility] T-TRANSGLUTAMINASE (TTG) IGA See Scanned Rpt [facility] T-TRANSGLUTAMINASE (TTG) IGG See Scanned Rpt [facility] CNNURSEon 09-27-2024 CNNURSE Normal [facility] Alanine aminotransferase [En zymatic activity/volume] in Serum or PlasmaOrdered By: Pili Roberts on 09-26-2024 ALT [Catalytic activity/Vol] Alanine aminotransferase [Enzymatic activity/volume] in Serum or Plasma 7-52 [facility] Albumin [Mass/volume] in Ser um or Plasma by Bromocresol green (BCG) dye binding methoOrdered By: Pili Roberts on 09-26-2024 Albumin BCG dye [Mass/Vol] Albumin [Mass/volume] in Serum or Plasma by Bromocresol green (BCG) dye binding metho 3.5-5.7 [facility] Alkaline phosphatase [Enzyma tic activity/volume] in Serum or PlasmaOrdered By: Pili Roberts on 09-26-2024 ALP [Catalytic activity/Vol] Alkaline phosphatase [Enzymatic activity/volume] in Serum or Plasma 34-104 [facility] Aspartate aminotransferase [ Enzymatic activity/volume] in Serum or PlasmaOrdered By: Pili Roberts on 09-26-2024 AST [Catalytic activity/Vol] Aspartate aminotransferase [Enzymatic activity/volume] in Serum or Plasma 13-39 [facility] Basophils Auto (Bld) [#/Vol] Ordered By: Pili Roberts on 09-26-2024 Basophils (Bld) [#/Vol] Automated basophil count 0.0-0.2 [facility] Basophils/100 WBC Auto (Bld) Ordered By: Pili Roberts on 09-26-2024 Basophils/100 WBC (Bld) Automated basophil % . [facility] Bilirubin.total [Mass/volume ] in Serum or PlasmaOrdered By: Pili Hicks on 09-26-2024 Bilirubin [Mass/Vol] Bilirubin.total [Mass/volume] in Serum or Plasma 0.3-1.0 [facility] CBC W Auto Differential pane l (Bld)on 09-26-2024 Basophils (Bld) [#/Vol] 0.1 10*3/uL 0.0 - 0.2 10*3/uL [facility] Basophils/100 WBC Manual cnt (Syn fld) 1.3 % . [facility] Eosinophils (Bld) [#/Vol] 0.4 10*3/uL 0.0 - 0.45 10*3/uL [facility] Eosinophils/100 WBC Manual cnt (Syn fld) 7.1 % . [facility] Erythrocyte distribution width (RBC) [Ratio] 12.8 % 11.9 - 15.3 % [facility] Hematocrit (Bld) [Volume fraction] 35 % 34.0 - 46.4 % [facility] Hemoglobin (Bld) [Mass/Vol] 11.7 g/dL Low 11.8 - 15.4 g/dL [facility] Interpretation and review of laboratory results Abnormal [facility] Lymphocytes (Bld) [#/Vol] 0.9 10*3/uL Low 1.00 - 4.8 10*3/uL [facility] Lymphocytes/100 WBC Manual cnt (Syn fld) 14 % . [facility] MCH (RBC) [Entitic mass] 29.5 pg 24.7 - 34.3 pg [facility] MCHC (RBC) [Mass/Vol] 33.4 g/dL 32.0 - 35.0 g/dL [facility] MCV (RBC) [Entitic vol] 88.4 fL 80 - 100 fL [facility] Monocytes (Bld) [#/Vol] 0.8 10*3/uL 0.0 - 0.8 10*3/uL [facility] Monocytes+Macrophages/ 100 WBC Manual cnt (Syn fld) 12.2 % . [facility] Neutrophils (Bld) [#/Vol] 4.1 10*3/uL 1.8 - 7.7 10*3/uL [facility] Neutrophils/100 WBC Manual cnt (Syn fld) 65.4 % . [facility] NRBC 0.2 /100{WBC} 0 - 0.5 /100{WBC} [facility] Platelet mean volume (Bld) [Entitic vol] 7.6 fL 6.3 - 10.7 fL [facility] Platelets (Bld) [#/Vol] 336 10*3/uL 150 - 450 10*3/uL [facility] RBC LM.HPF (Urine sed) [#/Area] 3.96 10*6/uL 3.60 - 5.00 10*6/uL [facility] WBC (Bld) [#/Vol] 6.2 10*3/uL 3.8 - 11.6 [facility]*3[facility] (Urine sed) [#/Area] 6.2 10*3/uL 3.8 - 11.6 10*3/uL [facility] Calcium [Mass/volume] in Ser um or PlasmaOrdered By: Pili Roberts on 09-26-2024 Calcium [Mass/Vol] Calcium [Mass/volume ] in Serum or Plasma 8.6-10.3 [facility] Carbon dioxide, total [Moles /volume] in Serum or PlasmaOrdered By: Pili Roberts on 09-26-2024 CO2 [Moles/Vol] Carbon dioxide, tota l [Moles/volume] in Serum or Plasma 21.0-31.0 [facility] Celiacon 09-26-2024 Deamidated Gliadin Abs, IgA 4 Normal 0-19 [facility] Comment on above: Order Comment: Speci men Comment: A duplicate report has been generated due to demographic Specimen Comment: updates. Result Comment: Nega tive 0 - 19 Weak Positive 20 - 30 Moderate to Strong Positive >30 --- 09/28/24 1407 --- Gliadin Abs,IgA previously reported as: See Scanned Rpt Performed By: #### T SH3, FE, TIBC, CMP, CBC #### [facility] [address] [place] [address] #### CELIAC #### [facility] , Deamidated Gliadin Abs, IgG 3 Normal 0-19 [facility] Comment on above: Order Comment: Speci men Comment: A duplicate report has been generated due to demographic Specimen Comment: updates. Result Comment: Nega tive 0 - 19 Weak Positive 20 - 30 Moderate to Strong Positive >30 --- 09/28/24 1407 --- Gliadin Abs,IgG previously reported as: See Scanned Rpt Performed By: #### T SH3, FE, TIBC, CMP, CBC #### [place] [address] [place] #### CELIAC #### [facility] , Endomysial Antibody IgA Negative Normal Negative [facility] Comment on above: Order Comment: Speci men Comment: A duplicate report has been generated due to demographic Specimen Comment: updates. Result Comment: --- 09/28/241406 --- Endomysial IgA previously reported as: See Scanned Rpt Performed By: #### T SH3, FE, TIBC, CMP, CBC #### [address] #### CELIAC #### [facility] , Immunoglobulin A, Qn, Serum 200 mg/dL Normal 87-352 [facility] Comment on above: Order Comment: Speci men Comment: A duplicate report has been generated due to demographic Specimen Comment: updates. Result Comment: Perf ormed at: - [facility] [place] [address] Asp Developer: Lj Solano PhD, Phone: [phone] --- 09/28/241406 --- IgA, Serum previously reported as: See Scanned Rpt PERFORMED BY: [place] [address] PATHOLOGIST BASE DRAW OPERATOR LUCIAN HAQ M.D. Performed By: #### T SH3, FE, TIBC, CMP, CBC #### [address] #### CELIAC #### [facility] , T-Transglutaminase (tTG) IgA <2 Normal 0-3 [facility] Comment on above: Order Comment: Speci men Comment: A duplicate report has been generated due to demographic Specimen Comment: updates. Result Comment: Nega tive 0 - 3 Weak Positive 4 - 10 Positive >10 Tissue Transglutaminase (tTG) has been identified as the endomysial antigen. Studies have demonstr- ated that endomysial IgA antibodies have over 99% specificity for gluten sensitive enteropathy. --- 09/28/241406 --- tTG IgA previously reported as: See Scanned Rpt Performed By: #### T SH3, FE, TIBC, CMP, CBC #### [place] [address] [place] #### CELIAC #### [facility] , T-Transglutaminase (tTG) IgG 14 High 0-5 [facility] Comment on above: Order Comment: Speci men Comment: A duplicate report has been generated due to demographic Specimen Comment: updates. Result Comment: Nega tive 0 - 5 Weak Positive 6 - 9 Positive >9 --- 09/28/241406 --- tTG IgG previously reported as: See Scanned Rpt Performed By: #### T SH3, FE, TIBC, CMP, CBC #### [address] #### CELIAC #### [facility] , Chloride [Moles/volume] in S yin or PlasmaOrdered By: Pili Roberts on 09-26-2024 Chloride [Moles/Vol] Chloride [Moles/vol ume] in Serum or Plasma 98-107 [facility] Complete Blood Count Auto Di ffon 09-26-2024 Basophils (Bld) [#/Vol] 0.1 10*3/uL Normal 0.0-0.2 [facility] Comment on above: Result Comment: PERF ORMED BY: [place] [address] PATHOLOGIST BASE DRAW OPERATOR LUCIAN HAQ M.D. Performed By: #### T SH3, FE, TIBC, CMP, CBC #### [place] [address] [place] #### CELIAC #### [facility] , Basophils/100 WBC (Bld) 1.3 % Normal . [facility] Comment on above: Performed By: #### T SH3, FE, TIBC, CMP, CBC #### [facility] [address] [place] [address] [place] #### CELIAC #### [facility] , Eosinophils (Bld) [#/Vol] 0.4 10*3/uL Normal 0.0-0.45 [facility] Comment on above: Performed By: #### T SH3, FE, TIBC, CMP, CBC #### [address] #### CELIAC #### [facility] , Eosinophils/100 WBC (Bld) 7.1 % Normal . [facility] Comment on above: Performed By: #### T SH3, FE, TIBC, CMP, CBC #### [address] #### CELIAC #### [facility] , Erythrocyte distribution width (RBC) [Ratio] 12.8 % Normal 11.9-15.3 [facility] Comment on above: Performed By: #### T SH3, FE, TIBC, CMP, CBC #### [address] #### CELIAC #### [facility] , Hematocrit (Bld) [Volume fraction] 35.0 % Normal 34.0-46.4 [facility] Comment on above: Performed By: #### T SH3, FE, TIBC, CMP, CBC #### [place] [address] [place] #### CELIAC #### [facility] , Hemoglobin (Bld) [Mass/Vol] 11.7 g/dL Low 11.8-15.4 [facility] Comment on above: Performed By: #### T SH3, FE, TIBC, CMP, CBC #### [place] [address] [place] #### CELIAC #### [facility] , Lymphocytes (Bld) [#/Vol] 0.9 10*3/uL Low 1.00-4.8 [facility] Comment on above: Performed By: #### T SH3, FE, TIBC, CMP, CBC #### [place] [address] [place] #### CELIAC #### [facility] , Lymphocytes/100 WBC (Bld) 14.0 % Normal . [facility] Comment on above: Performed By: #### T SH3, FE, TIBC, CMP, CBC #### [place] [address] [place] #### CELIAC #### [facility] , MCH (RBC) [Entitic mass] 29.5 pg Normal 24.7-34.3 [facility] Comment on above: Performed By: #### T SH3, FE, TIBC, CMP, CBC #### [address] #### CELIAC #### [facility] , MCV (RBC) [Entitic vol] 88.4 fL Normal 80-100 [facility] Comment on above: Performed By: #### T SH3, FE, TIBC, CMP, CBC #### [address] #### CELIAC #### [facility] , Mean Corpuscular HGB Conc 33.4 g/dL Normal 32.0-35.0 [facility] Comment on above: Performed By: #### T SH3, FE, TIBC, CMP, CBC #### [place] [address] [place] #### CELIAC #### [facility] , Monocytes (Bld) [#/Vol] 0.8 10*3/uL Normal 0.0-0.8 [facility] Comment on above: Performed By: #### T SH3, FE, TIBC, CMP, CBC #### [place] [address] [place] #### CELIAC #### [facility] , Monocytes/100 WBC (Bld) 12.2 % Normal . [facility] Comment on above: Performed By: #### T SH3, FE, TIBC, CMP, CBC #### [place] [address] [place] #### CELIAC #### [facility] , Neutrophils (Bld) [#/Vol] 4.1 10*3/uL Normal 1.8-7.7 [facility] Comment on above: Performed By: #### T SH3, FE, TIBC, CMP, CBC #### [place] [address] [place] #### CELIAC #### [facility] , Neutrophils/100 WBC (Bld) 65.4 % Normal . [facility] Comment on above: Performed By: #### T SH3, FE, TIBC, CMP, CBC #### [place] [address] [place] #### CELIAC #### [facility] , NRBC% 0.2 /100{WBC} Normal 0-0.5 [facility] Comment on above: Performed By: #### T SH3, FE, TIBC, CMP, CBC #### [place] [address] [place] #### CELIAC #### [facility] , Platelet mean volume (Bld) [Entitic vol] 7.6 fL Normal 6.3-10.7 [facility] Comment on above: Performed By: #### T SH3, FE, TIBC, CMP, CBC #### [place] [address] [place] #### CELIAC #### [facility] , Platelets (Bld) [#/Vol] 336 10*3/uL Normal 150-450 [facility] Comment on above: Performed By: #### T SH3, FE, TIBC, CMP, CBC #### [place] [address] [place] #### CELIAC #### [facility] , RBC (Bld) [#/Vol] 3.96 10*6/uL Normal 3.60-5.00 [facility] Comment on above: Performed By: #### T SH3, FE, TIBC, CMP, CBC #### [place] [address] [place] #### CELIAC #### [facility] , WBC (Bld) [#/Vol] 6.2 10*3/uL Normal 3.8-11.6 [facility] Comment on above: Performed By: #### T SH3, FE, TIBC, CMP, CBC #### [place] [address] [place] #### CELIAC #### [facility] , Comprehensive Metabolic Pane alex 09-26-2024 Albumin [Mass/Vol] 3.9 g/dL Normal 3.5-5.7 [facility] Comment on above: Performed By: #### T SH3, FE, TIBC, CMP, CBC #### [place] [address] [place] #### CELIAC #### [facility] , Albumin/Globulin [Mass ratio] 1.1 {ratio} Normal [facility] Comment on above: Performed By: #### T SH3, FE, TIBC, CMP, CBC #### [place] [address] [place] #### CELIAC #### [facility] , ALP [Catalytic activity/Vol] 58 U/L Normal 34-104 [facility] Comment on above: Performed By: #### T SH3, FE, TIBC, CMP, CBC #### [facility] [address] [place] [address] [place] #### CELIAC #### [facility] , ALT [Catalytic activity/Vol] 11 U/L Normal 7-52 [facility] Comment on above: Performed By: #### T SH3, FE, TIBC, CMP, CBC #### [place] [address] [place] #### CELIAC #### [facility] , Anion gap [Moles/Vol] 10.3 mmol/L Normal 6.0-15.0 e [facility] Comment on above: Performed By: #### T SH3, FE, TIBC, CMP, CBC #### [place] [address] [place] #### CELIAC #### [facility] , AST [Catalytic activity/Vol] 25 U/L Normal 13-39 [facility] Comment on above: Performed By: #### T SH3, FE, TIBC, CMP, CBC #### [address] #### CELIAC #### [facility] , Bilirubin [Mass/Vol] 0.6 mg/dL Normal 0.3-1.0 [facility] Comment on above: Performed By: #### T SH3, FE, TIBC, CMP, CBC #### [place] [address] [place] #### CELIAC #### [facility] , Calcium [Mass/Vol] 9.4 mg/dL Normal 8.6-10.3 [facility] Comment on above: Performed By: #### T SH3, FE, TIBC, CMP, CBC #### [facility] [address] [place] [address] [place] #### CELIAC #### [facility] , Chloride [Moles/Vol] 102 mmol/L Normal 98-107 [facility] Comment on above: Performed By: #### T SH3, FE, TIBC, CMP, CBC #### [facility] [address] [place] [address] [place] #### CELIAC #### [facility] , CO2 [Moles/Vol] 29.9 mmol/L Normal 21.0-31.0 [facility] Comment on above: Performed By: #### T SH3, FE, TIBC, CMP, CBC #### [place] [address] [place] #### CELIAC #### [facility] , Creatinine [Mass/Vol] 0.69 mg/dL Normal 0.60-1.20 [facility] Comment on above: Performed By: #### T SH3, FE, TIBC, CMP, CBC #### [place] [address] [place] #### CELIAC #### [facility] , GFR/1.73 sq M.predicted MDRD (S/P/Bld) [Vol rate/Area] mL/min/{1.73_m2} Normal [facility] Comment on above: Performed By: #### T SH3, FE, TIBC, CMP, CBC #### [place] [address] [place] #### CELIAC #### [facility] , Globulin (S) [Mass/Vol] 3.5 g/dL Normal [facility] Comment on above: Performed By: #### T SH3, FE, TIBC, CMP, CBC #### [place] [address] [place] #### CELIAC #### [facility] , Glucose [Mass/Vol] 87 mg/dL Normal 70-100 [facility] Comment on above: Result Comment: [facility] Glucose Reference Range is dependent on time and content of last meal. Glucose of more than 200 mg/dL in a nonstressed, ambulatory subject supports the diagnosis of Diabetes Mellitus. ADA recommended reference range Performed By: #### T SH3, FE, TIBC, CMP, CBC #### [place] [address] [place] #### CELIAC #### [facility] , Potassium [Moles/Vol] 4.2 mmol/L Normal 3.5-5.1 [facility] Comment on above: Performed By: #### T SH3, FE, TIBC, CMP, CBC #### [facility] [address] [place] [address] [place] #### CELIAC #### [facility] , Protein [Mass/Vol] 7.4 g/dL Normal 6.4-8.9 [facility] Comment on above: Performed By: #### T SH3, FE, TIBC, CMP, CBC #### [facility] [address] [place] [address] [place] #### CELIAC #### [facility] , Sodium [Moles/Vol] 138 mmol/L Normal 136-145 [facility] Comment on above: Performed By: #### T SH3, FE, TIBC, CMP, CBC #### [facility] [address] [place] [address] [place] #### CELIAC #### [facility] , Urea nitrogen [Mass/Vol] 13 mg/dL Normal 7-25 [facility] Comment on above: Performed By: #### T SH3, FE, TIBC, CMP, CBC #### [facility] [address] [place] [address] [place] #### CELIAC #### [facility] , Creatinine [Mass/volume] in Serum or PlasmaOrdered By: Pili Roberts on 09-26-2024 Creatinine [Mass/Vol] Creatinine [Mass/v olume] in Serum or Plasma 0.60-1.20 [facility] Endomysial IgA antibody assa yOrdered By: Pili Evans on 09-26-2024 Endomysial IgA Antibody Negative Negative [facility] Comment on above: --- 09/28/24 1407 -- -Endomysial IgA previously reported as: See Scanned Rpt Eosinophils Auto (Bld) [#/Vo l]Ordered By: Pili Roberts on 09-26-2024 Eosinophils (Bld) [#/Vol] Automated eosinophil count 0.0-0.45 [facility] Eosinophils/100 WBC Auto (Bl d)Ordered By: Pili Roberts on 01-07-2025 Eosinophils/100 WBC (Bld) Automated eosinophil % . [facility] Erythrocyte distribution wid th Auto (RBC) [Ratio]Ordered By: Pili Hicks on 09-26-2024 Erythrocyte distribution width (RBC) [Ratio] Erythrocyte distribution width [Ratio] by Automated count 11.9-15.3 [facility] Globulin Calc (S) [Mass/Vol] Ordered By: Pili NathanMala on 09-26-2024 Globulin (S) [Mass/Vol] Serum globulin measurement by calculation (mass/volume) [facility] Glucose [Mass/volume] in Ser um or PlasmaOrdered By: Pili NathanMala on 09-26-2024 Glucose [Mass/Vol] Glucose [Mass/volume ] in Serum or Plasma 70-100 [facility] Comment on above: ADA recommended refe rence rangeRandom Glucose Reference Range is dependent on time and content of last meal. Glucose of more than 200 mg/dL in a nonstressed, ambulatory subject supports the diagnosis of Diabetes Mellitus. Hematocrit Auto (Bld) [Volum e fraction]Ordered By: Pili Roberts on 09-26-2024 Hematocrit (Bld) [Volume fraction] Hematocrit [Volume Fraction] of Blood by Automated count 34.0-46.4 [facility] Hemoglobin [Mass/volume] in BloodOrdered By: Pili Roberts on 09-26-2024 Hemoglobin (Bld) [Mass/Vol] Hemoglobin [Mass/volume] in Blood Low 11.8-15.4 [facility] Ironon 09-26-2024 Iron [Mass/Vol] 71 ug/dL Normal 50-212 [facility] Comment on above: Performed By: #### T SH3, FE, TIBC, CMP, CBC #### [facility] [address] [place] [address] [place] #### CELIAC #### [facility] , Iron [Mass/volume] in Serum or PlasmaOrdered By: Pili Roberts on 09-26-2024 Iron [Mass/Vol] Iron [Mass/volume] i n Serum or Plasma 50-212 [facility] Leukocytes [#/volume] correc cal for nucleated erythrocytes in Blood by Automated counOrdered By: Pili Roberts on 09-26-2024 WBC corrected for nucl RBC Auto (Bld) [#/Vol] Leukocytes [#/volume] corrected for nucleated erythrocytes in Blood by Automated coun 3.8-11.6 [facility] Lymphocytes Auto (Bld) [#/Vo l]Ordered By: Pili Roberts on 09-26-2024 Lymphocytes (Bld) [#/Vol] Lymphocytes [#/volume] in Blood by Automated count Low 1.00-4.8 [facility] Lymphocytes/100 WBC Auto (Bl d)Ordered By: Pili Roberts on 09-26-2024 Lymphocytes/100 WBC (Bld) Lymphocytes/100 leukocytes in Blood by Automated count . [facility] MCH Auto (RBC) [Entitic mass ]Ordered By: Pili Roberts on 09-26-2024 MCH (RBC) [Entitic mass] MCH [Entitic mass] by Automated count 24.7-34.3 [facility] MCHC Auto (RBC) [Mass/Vol]Or dered By: Pili Roberts on 09-26-2024 MCHC (RBC) [Mass/Vol] MCHC [Mass/volume] by Automated count 32.0-35.0 [facility] MCV Auto (RBC) [Entitic vol] Ordered By: Pili Roberts on 09-26-2024 MCV (RBC) [Entitic vol] MCV [Entitic volume] by Automated count 80-100 [facility] Monocytes Auto (Bld) [#/Vol] Ordered By: Pili Roberts on 09-26-2024 Monocytes (Bld) [#/Vol] Automated blood monocyte count 0.0-0.8 [facility] Monocytes/100 WBC Auto (Bld) Ordered By: Pili Roberts on 09-26-2024 Monocytes/100 WBC (Bld) Automated monocyte % . [facility] Neutrophils Auto (Bld) [#/Vo l]Ordered By: Pili Roberts on 09-26-2024 Neutrophils (Bld) [#/Vol] Neutrophils [#/volume] in Blood by Automated count 1.8-7.7 [facility] Neutrophils/100 WBC Auto (Bl d)Ordered By: Pili Roberts on 09-26-2024 Neutrophils/100 WBC (Bld) Automated neutrophil % . [facility] No Panel InformationOrdered By: Pili Roberts on 09-26-2024 Estimated GFR (CKD-EPI) > 60.0 mL/Min [facility] Creatinine Clearance (Chem N/A [facility] Nucleated erythrocytes [Pres ence] in Blood by Automated countOrdered By: Pili Roberts on 09-26-2024 Nucleated RBC Auto Ql (Bld) Nucleated erythrocytes [Presence] in Blood by Automated count 0-0.5 [facility] Platelet mean volume Auto (B ld) [Entitic vol]Ordered By: Pili Roberts on 09-26-2024 Platelet mean volume (Bld) [Entitic vol] Platelet mean volume [Entitic volume] in Blood by Automated count 6.3-10.7 [facility] Platelets Auto (Bld) [#/Vol] Ordered By: Pili Roberts on 09-26-2024 Platelets (Bld) [#/Vol] Platelets [#/volume] in Blood by Automated count 150-450 [facility] Potassium [Moles/volume] in Serum or PlasmaOrdered By: Pili Roberts on 09-26-2024 Potassium [Moles/Vol] Potassium [Moles/v olume] in Serum or Plasma 3.5-5.1 [facility] Protein [Mass/volume] in Ser um or PlasmaOrdered By: Pili Roberts on 09-26-2024 Protein [Mass/Vol] Protein [Mass/volume ] in Serum or Plasma 6.4-8.9 [facility] RBC Auto (Bld) [#/Vol]Ordere d By: Pili Roberts on 09-26-2024 RBC (Bld) [#/Vol] Erythrocytes [#/volu me] in Blood by Automated count 3.60-5.00 [facility] Serum gliadin peptide IgA an tibody assay (units/volume)Ordered By: Pili Evans on 09-26-2024 Gliadin peptide IgA Qn (S) Serum gliadin peptide IgA antibody assay (units/volume) 0-19 [facility] Comment on above: Negative 0 - 19 Weak Positive 20 - 30 Moderate to Strong Positive >30 --- 09/28/24 1407 ---Gliadin Abs,IgA previously reported as: See Scanned Rpt Serum gliadin peptide IgG an tibody assay (units/volume)Ordered By: Pili Evans on 09-26-2024 Gliadin peptide IgG Qn (S) Serum gliadin peptide IgG antibody assay (units/volume) 0-19 [facility] Comment on above: Negative 0 - 19 Weak Positive 20 - 30 Moderate to Strong Positive >30 --- 09/28/241406 ---Gliadin Abs,IgG previously reported as: See Scanned Rpt Serum or plasma IgA measurem ent (mass/volume)Ordered By: Pili Evans on 09-26-2024 IgA [Mass/Vol] IgA [Mass/volume] in Serum or Plasma 87-752 [facility] Comment on above: Performed at: [facility] [place] [id number] Director: Lj Solano PhD, Phone: [phone] --- 09/28/241406 ---IgA, Serum previously reported as: See Scanned Rpt Serum or plasma albumin/glob ulin mass ratioOrdered By: Pili Roberts on 09-26-2024 Albumin/Globulin [Mass ratio] Serum or plasma albumin/globulin mass ratio [facility] Serum or plasma anion gap de terminationOrdered By: Pili Roberts on 09-26-2024 Anion gap [Moles/Vol] Serum or plasma an ion gap determination 6.0-15.0 [facility] Serum or plasma iron binding capacity measurement (mass/volume)Ordered By: Pili Roberts on 09-26-2024 Iron binding capacity [Mass/Vol] Iron binding capacity [Mass/volume] in Serum or Plasma 255-450 [facility] Serum tissue transglutaminas e (tTG) IgA antibody assay (units/volume)Ordered By: Pili Evans on 09-26-2024 tTG IgA Qn (S) Serum tissue transglutaminase (tTG) IgA antibody assay (units/volume) 0-3 [facility] Comment on above: Negative 0 - 3 Weak Positive 4 - 10 Positive >10 Tissue Transglutaminase (tTG) has been identified as the endomysial antigen. Studies have demonstr- ated that endomysial IgA antibodies have over 99% specificity for gluten sensitive enteropathy. --- 09/28/24 1407 ---tTG IgA previously reported as: See Scanned Rpt Serum tissue transglutaminas e (tTG) IgG antibody assay (units/volume)Ordered By: Pili Evans on 09-26-2024 tTG IgG Qn (S) Serum tissue transglutaminase (tTG) IgG antibody assay (units/volume) High 0-5 [facility] Comment on above: Negative 0 - 5 Weak Positive 6 - 9 Positive >9 --- 09/28/241406 ---tTG IgG previously reported as: See Scanned Rpt Sodium [Moles/volume] in Ser um or PlasmaOrdered By: Pili Roberts on 09-26-2024 Sodium [Moles/Vol] Sodium [Moles/volume ] in Serum or Plasma 136-145 [facility] Thyroid Stimulating Hormoneo n 09-26-2024 TSH Qn 1.65 m[IU]/L Normal 0.45-5.33 [facility] Comment on above: Result Comment: PERF ORMED BY: [place] [address] PATHOLOGIST BASE DRAW OPERATOR LUCIAN HAQ M.D. Performed By: #### T SH3, FE, TIBC, CMP, CBC #### [place] [address] [place] #### CELIAC #### [facility] , Thyrotropin [Units/volume] i n Serum or PlasmaOrdered By: Pili Roberts on 09-26-2024 TSH Qn Thyrotropin [Units/v olume] in Serum or Plasma 0.45-5.33 [facility] Total Iron Binding Capacityo n 09-26-2024 Total Iron Binding Capacity 333 ug/dL Normal 255-450 [facility] Comment on above: Performed By: #### T SH3, FE, TIBC, CMP, CBC #### [facility] [address] [place] [address] [place] #### CELIAC #### [facility] , Transferrin [Mass/Vol] 238 mg/dL Normal 203-362 [facility] Comment on above: Performed By: #### T SH3, FE, TIBC, CMP, CBC #### [facility] [address] [place] [address] [place] #### CELIAC #### [facility] , Transferrin [Mass/volume] in Serum or PlasmaOrdered By: Pili Roberts on 09-26-2024 Transferrin [Mass/Vol] Transferrin [Mass /volume] in Serum or Plasma 203-362 [facility] Urea nitrogen [Mass/volume] in Serum or PlasmaOrdered By: Pili Hicks on 09-26-2024 Urea nitrogen [Mass/Vol] Urea nitrogen [Mass/volume] in Serum or Plasma 7-25 [facility] WBC Auto (Bld) [#/Vol]Ordere d By: Pili Roberts on 09-26-2024 WBC (Bld) [#/Vol] Leukocytes [#/volume ] in Blood by Automated count 3.8-11.6 [facility] X-ray reportOrdered By: Patrick Leiva on 09-26-2024 Study report [facility] [place] [address] [place] [address] XRay Report Signed Patient: Mirian Corrales MR#: [id number] : 1955 Acct:[id number] Age/Sex: 68 / F ADM Date: 5 Loc: XD Room: Type: [facility] CLI Attending Dr: Pili ALMONTE Copies to: Pili ALMONTE~ Ordering Provider: Pili ALMONTE Date of Service: [...] Patrick Leiva M.D.09/26/2024 7:05 PM Dictation Location: [facility]- Transcribed By: JULIOCESAR 09/26/241904 Dictated By: Patrick Leiva II, MD 09/26/241904 Signed By: 09/26/241904 [facility] Work Phone: XR hip RT min 2V(w/wo pelvis )*on 09-26-2024 XR hip RT min 2V(w/wo pelvis)* [facility] [place] [address] XRay Report Signed Patient: Mirian Corrales MR#: [id number] : 1955 Acct:[id number] Age/Sex: 68 / F ADM Date: 09/26/24 Loc: XD Room: Type: [facility] Attending Dr: Pili ALMONTE Copies to: Pili [...] Patrick Leiva M.D.09/26/2024 7:05 PM Dictation Location: [facility]--17 Transcribed By: JULIOCESAR 09/26/241904 Dictated By: Patrick Leiva II, MD 09/26/241904 Signed By: 09/26/241904 Normal [facility] CNNURSEon 09-25-2024 CNNURSE Normal [facility] CNNURSEon 09-18-2024 CNNURSE Normal [facility] CNNURSEon 09-11-2024 CNNURSE Normal [facility] CNNURSEon 09-08-2024 CNNURSE Normal [facility] CNNURSEon 09-06-2024 CNNURSE Normal [facility] CNNURSEon 09-01-2024 CNNURSE Normal [facility] CNNURSEon 08-30-2024 CNNURSE Normal [facility] CNNURSEon 08-16-2024 CNNURSE Normal [facility] US breast BI limitedon 08-16 US breast BI limited [facility] [place] [address] Mammography Report Signed Patient: Mirian Corrales MR#: [id number] : 1955 Acct:[id number] Age/Sex: 68 / F ADM Date: 08/16/24 Loc: [place] Room: Type: [facility] Attending Dr: Vonnie Ponce PA-C Copies to: Vonnie Stanley DO Ordering Provider: Vonnie ALMONTE Date of Service: 08/16/24 MM/MM diagnostic mammo BI w/CAD: N60.01 ([id number]) US/US breast BI limited: N60.01 CLINICAL DATA: [...] Megan Phan M.D.08/16/2024 10:03 AM Dictation Location: [facility] Transcribed By: [facility] 08/16/24 1003 Dictated By: Megan Phan MD 08/16/24 0806 Signed By: 08/16/24 1003 Normal [facility] CNOVon 08-14-2024 CNOV Normal [facility] CNNURSEon 08-11-2024 CNNURSE Normal [facility] CNPNon 08-10-2024 CNPN Normal [facility] CNNURSEon 08-09-2024 CNNURSE Normal [facility] CNNURSEon 08-07-2024 CNNURSE Normal [facility] CNNURSEon 08-04-2024 CNNURSE Normal [facility] CNNURSEon 08-02-2024 CNNURSE Normal [facility] IGP,APTIMA HPV,AGE GDLNon AGE GDLN ACOG TESTING Note . [facility] Comment on above: TESTS RESULT FLAG UN ITS REF RANGE LAB Clinician Provided Cytology Information Source.............Cervix;Endocervix No. of containers..01 ThinPrep Vial Age Algo ACOG Pat... Note 01 <21 or >65 or no age provided FLAG LEGEND: L-Low Normal,H-High Normal,LL-Alert Low,HH-Alert High <-Panic Low,>-Panic High,A-Abnormal,AA-Critical Abnormal Performed at: 01 [facility] [place] [address] Anastacia Vela MD, PAP IG (IMAGE GUIDED) Note . [facility] Comment on above: TESTS RESULT FLAG UN ITS REF RANGE LAB DIAGNOSIS: 02 NEGATIVE FOR INTRAEPITHELIAL LESION OR MALIGNANCY. CELLULAR CHANGES ASSOCIATED WITH ATROPHY ARE PRESENT. Specimen adequacy: 02 Satisfactory for evaluation. Endocervical component may not be distinguished in cases of atrophy. Performed by: 02 Kierra Jiménez, Attorney At Law (ASCP) . 02 Note: Note 02 The Pap smear is a screening test designed to aid in the detection of premalignant and malignant conditions of the uterine cervix. It is not a diagnostic procedure and should not be used as the sole means of detecting cervical cancer. Both false-positive and false-negative reports do occur. Test Methodology: Note 02 This liquid based ThinPrep(R) pap test was screened with the use of an image guided system. FLAG LEGEND: L-Low Normal,H-High Normal,LL-Alert Low,HH-Alert High <-Panic Low,>-Panic High,A-Abnormal,AA-Critical Abnormal Performed at: [address] [address] Anastacia Vela MD, Performed at: =G - [facility] [address] [id number] Asp Developer: Anastacia Vela MD, Phone: [phone] Performed at: - [facility] [id number] Asp Developer: Anastacia Vela MD, Phone: [phone] BRUSH-SPATULA CERVIX ENDOCERVIX [facility] CNNURSEon 07-31-2024 CNNURSE Normal [facility] CNNURSEon 07-28-2024 CNNURSE Normal [facility] CNOVon 07-28-2024 CNOV Normal [facility] CNNURSEon 07-26-2024 CNNURSE Normal [facility] CNNURSEon 07-24-2024 CNN[facility]SE Normal [facility] CNNURSEon 07-21-2024 CNNURSE Normal [facility] CNNURSEon 07-19-2024 CNNURSE Normal [facility] CNNURSEon 07-17-2024 CNNURSE Normal [facility] CNNURSEon 07-14-2024 CNN[facility]SE Normal [facility] CNNURSEon 07-12-2024 CNNURSE Normal [facility] CBC W Auto Differential pane l (Bld)on 04-28-2024 Basophils (Bld) [#/Vol] 0.09 10*3/uL Normal <0.11 [facility] Comment on above: Order Comment: Speci men Type: BLOOD SPECIMEN Ordering Facility: [facility] Address: [address] [place] [address] Performed By: #### 5 7021-8 #### [facility] CLIA [id number] [place] [address] [place] Basophils/100 WBC (Bld) 0.5 % Normal [facility] Comment on above: Order Comment: Speci men Type: BLOOD SPECIMEN Ordering Facility: [facility] Address: [address] [place] [address] Performed By: #### 5 7021-8 #### [facility] CLIA [id number] [place] [address] [place] Differential cell count method Nom (Bld) Auto Normal [facility] Comment on above: Order Comment: Speci men Type: BLOOD SPECIMEN Ordering Facility: [facility] Address: [address] [place] [address] Performed By: #### 5 7021-8 #### [facility] CLIA [id number] [place] [address] [place] Eosinophils (Bld) [#/Vol] 7.50 10*3/uL High <0.46 [facility] Comment on above: Order Comment: Speci men Type: BLOOD SPECIMEN Ordering Facility: [facility] Address: [address] [place] [address] Performed By: #### 5 7021-8 #### [facility] CLIA [id number] [address] [place] [address] [place] Eosinophils/100 WBC (Bld) 42.9 % Normal [facility] Comment on above: Order Comment: Speci men Type: BLOOD SPECIMEN Ordering Facility: [facility] Address: [address] [place] [address] Performed By: #### 5 7021-8 #### [facility] CLIA [id number] [place] [address] [place] Erythrocyte distribution width (RBC) [Ratio] 14.9 % Normal 11.5-15.0 [facility] Comment on above: Order Comment: Speci men Type: BLOOD SPECIMEN Ordering Facility: [facility] Address: [address] [place] [address] Performed By: #### 5 7021-8 #### [facility] [place] [id number] [address] [place] [address] [place] Hematocrit (Bld) [Volume fraction] 39.0 % Normal 36.0-46.0 [facility] Comment on above: Order Comment: Speci men Type: BLOOD SPECIMEN Ordering Facility: [facility] Address: [address] [place] [address] Performed By: #### 5 7021-8 #### [facility] CLIA [id number] [place] [address] [place] Hemoglobin (Bld) [Mass/Vol] 12.7 g/dL Normal 11.5-15.5 [facility] Comment on above: Order Comment: Speci men Type: BLOOD SPECIMEN Ordering Facility: [facility] Address: [address] [place] [address] Performed By: #### 5 7021-8 #### [facility] CLIA [id number] [place] [address] [place] Immature granulocytes (Bld) [#/Vol] 0.11 10*3/uL High <0.10 [facility] Comment on above: Order Comment: Speci men Type: BLOOD SPECIMEN Ordering Facility: [facility] Address: [address] [place] [address] Performed By: #### 5 7021-8 #### [facility] CLIA [id number] [address] [place] [address] [place] Immature granulocytes/100 WBC (Bld) 0.6 % Normal [facility] Comment on above: Order Comment: Speci men Type: BLOOD SPECIMEN Ordering Facility: [facility] Address: [address] [place] [address] Performed By: #### 5 7021-8 #### [facility] CLIA [id number] [address] [place] [address] [place] Lymphocytes (Bld) [#/Vol] 2.33 10*3/uL Normal 1.00-4.00 [facility] Comment on above: Order Comment: Speci men Type: BLOOD SPECIMEN Ordering Facility: [facility] Address: [address] [place] [address] Performed By: #### 5 7021-8 #### [facility] IA [id number] [address] [place] [address] [place] Lymphocytes/100 WBC (Bld) 13.3 % Normal [facility] Comment on above: Order Comment: Speci men Type: BLOOD SPECIMEN Ordering Facility: [facility] Address: [address] [place] [address] Performed By: #### 5 7021-8 #### [facility] IA [id number] [address] [place], [place] [address] [place] MCH (RBC) [Entitic mass] 30.7 pg Normal 26.0-34.0 [facility] Comment on above: Order Comment: Speci men Type: BLOOD SPECIMEN Ordering Facility: [facility] Address: [address] [place] [address] Performed By: #### 5 7021-8 #### [facility] IA [id number] [place] MCHC (RBC) [Mass/Vol] 32.6 g/dL Normal 30.5-36.0 [facility] Comment on above: Order Comment: Speci men Type: BLOOD SPECIMEN Ordering Facility: [facility] Address: [address] [place] [address] Performed By: #### 5 7021-8 #### [facility] CLIA [id number] [place] [address] [place] MCV (RBC) [Entitic vol] 94.2 fL Normal 80.0-100.0 [facility] Comment on above: Order Comment: Speci men Type: BLOOD SPECIMEN Ordering Facility: [facility] Address: [address] [place] [address] Performed By: #### 5 7021-8 #### [facility] IA [id number] [address] [place] [address] [place] Monocytes (Bld) [#/Vol] 0.80 10*3/uL Normal <0.87 [facility] Comment on above: Order Comment: Speci men Type: BLOOD SPECIMEN Ordering Facility: [facility] Address: [address] [place] [address] Performed By: #### 5 7021-8 #### [facility] IA [id number] [address] [place] [address] [place] Monocytes/100 WBC (Bld) 4.6 % Normal [facility] Comment on above: Order Comment: Speci men Type: BLOOD SPECIMEN Ordering Facility: [facility] Address: [address] [place] [address] Performed By: #### 5 7021-8 #### [facility] IA [id number] [address] [place] [address] [place] Neutrophils (Bld) [#/Vol] 6.64 10*3/uL Normal 1.45-7.50 [facility] Comment on above: Order Comment: Speci men Type: BLOOD SPECIMEN Ordering Facility: [facility] Address: [address] [place] [address] Performed By: #### 5 7021-8 #### [facility] IA [id number] [address] [place] [address] [place] Neutrophils/100 WBC (Bld) 38.1 % Normal [facility] Comment on above: Order Comment: Speci men Type: BLOOD SPECIMEN Ordering Facility: [facility] Address: [address] [place] [address] Performed By: #### 5 7021-8 #### [facility] IA [id number] [address] [place] [address] [place] Nucleated RBC (Bld) [#/Vol] 10*3/uL Normal <0.01 [facility] Comment on above: Order Comment: Speci men Type: BLOOD SPECIMEN Ordering Facility: [facility] Address: [address] [place] [address] Performed By: #### 5 7021-8 #### [facility] IA [id number] [address] [place] [address] [place] Nucleated RBC/100 WBC (Bld) [Ratio] 0.0 /100 WBC Normal [facility] Comment on above: Order Comment: Speci men Type: BLOOD SPECIMEN Ordering Facility: [facility] Address: [address] [place] [address] Performed By: #### 5 7021-8 #### [facility] IA [id number] [address] [place] [address] [place] Platelet mean volume (Bld) [Entitic vol] 9.0 fL Normal 9.0-12.7 [facility] Comment on above: Order Comment: Speci men Type: BLOOD SPECIMEN Ordering Facility: [facility] Address: [address] [place] [address] Performed By: #### 5 7021-8 #### [facility] IA [id number] [address] [place] [address] [place] Platelets (Bld) [#/Vol] 403 10*3/uL High 150-400 [facility] Comment on above: Order Comment: Speci men Type: BLOOD SPECIMEN Ordering Facility: [facility] Address: [address] [place] [address] Performed By: #### 5 7021-8 #### [facility] IA [id number] [address] [place] [address] [place] RBC (Bld) [#/Vol] 4.14 10*6/uL Normal 3.90-5.20 [facility] Comment on above: Order Comment: Speci men Type: BLOOD SPECIMEN Ordering Facility: [facility] Address: [address] [place] [address] Performed By: #### 5 7021-8 #### [facility] CLIA [id number] [address] [place] [address] [place] WBC (Bld) [#/Vol] 17.47 10*3/uL High 3.70-11.00 [facility] Comment on above: Order Comment: Speci men Type: BLOOD SPECIMEN Ordering Facility: [facility] Address: [address] [place] [address] Performed By: #### 5 7021-8 #### [facility] CLIA [id number] [address] [place], [place] [address] [place] [address] [place] CRP SerPl-ncon 04-28-2024 CRP [Mass/Vol] mg/L Normal <0.9 [facility] Comment on above: Order Comment: Speci men Type: BLOOD SPECIMEN Ordering Facility: [facility] Address: [address] [place], [place] [address] Performed By: #### 1 988-5, 08342-2 #### [facility] CLIA [id number] [address] [place] [address] [place] Comprehensive metabolic 2000 panelon 04-28-2024 Albumin [Mass/Vol] 3.8 g/dL Low 3.9-4.9 [facility] Comment on above: Order Comment: Speci men Type: BLOOD SPECIMEN Ordering Facility: [facility] Address: [address] [place] [address] Performed By: #### 1 988-5, 24120-2 #### [facility] CLIA [id number] [address] [place] [address] [place] ALP [Catalytic activity/Vol] 76 U/L Normal 34-123 [facility] Comment on above: Order Comment: Speci men Type: BLOOD SPECIMEN Ordering Facility: [facility] Address: [address] [place] [address] Performed By: #### 1 988-5, 37871-5 #### [facility] CLIA [id number] [address] [place] [address] [place] ALT [Catalytic activity/Vol] 18 U/L Normal 7-38 [facility] Comment on above: Order Comment: Speci men Type: BLOOD SPECIMEN Ordering Facility: [facility] Address: [address] [place] [address] Performed By: #### 1 988-5, #### [facility] CLIA [id number] [place] [address] [place] Anion gap [Moles/Vol] 9 mmol/L Normal 8-15 [facility] Comment on above: Order Comment: Speci men Type: BLOOD SPECIMEN Ordering Facility: [facility] Address: [address] [place] [address] Performed By: #### 1 988-5, #### [facility] CLIA [id number] [address] [place] [address] [place] AST [Catalytic activity/Vol] 24 U/L Normal 13-35 [facility] Comment on above: Order Comment: Speci men Type: BLOOD SPECIMEN Ordering Facility: [facility] Address: [address] [place] [address] Performed By: #### 1 988-5, 50835-4 #### [facility] CLIA [id number] [address] [place] [address] [place] Bilirubin [Mass/Vol] 0.3 mg/dL Normal 0.2-1.3 [facility] Comment on above: Order Comment: Speci men Type: BLOOD SPECIMEN Ordering Facility: [facility] Address: [address] [place] [address] Performed By: #### 1 988-5, 96507-1 #### [facility] CLIA [id number] [address] [place] [address] [place] Calcium [Mass/Vol] 8.7 mg/dL Normal 8.5-10.2 [facility] Comment on above: Order Comment: Speci men Type: BLOOD SPECIMEN Ordering Facility: [facility] Address: [address] [place] [address] Performed By: #### 1 988-5, 41767-8 #### [facility] CLIA [id number] [address] [place] [address] [place] Chloride [Moles/Vol] 103 mmol/L Normal 98-107 [facility] Comment on above: Order Comment: Speci men Type: BLOOD SPECIMEN Ordering Facility: [facility] Address: [address] [place] [address] Performed By: #### 1 988-5, 11020-2 #### [facility] CLIA [id number] [address] [place] [address] [place] CO2 [Moles/Vol] 26 mmol/L Normal 22-30 [facility] Comment on above: Order Comment: Speci men Type: BLOOD SPECIMEN Ordering Facility: [facility] Address: [address] [place] [address] Performed By: #### 1 988-5, 25020-5 #### [facility] CLIA [id number] [address] [place] [address] [place] Creatinine [Mass/Vol] 0.64 mg/dL Normal 0.58-0.96 [facility] Comment on above: Order Comment: Speci men Type: BLOOD SPECIMEN Ordering Facility: [facility] Address: [address] [place] [address] Performed By: #### 1 988-5, 09698-2 #### [facility] CLIA [id number] [address] [place] [address] [place] Creatinine and Glomerular filtration rate.predicted panel (S/P/Bld) 96 mL/min/1.73m??? Normal >=60 [facility] Comment on above: Order Comment: Speci men Type: BLOOD SPECIMEN Ordering Facility: [facility] Address: [address] [place] [address] Result Comment: Estela mated Glomerular Filtration Rate [...] actual GFR. Performed By: #### 1 988-5, 51836-5 #### [facility] CLIA [id number] [address] [place] [address] [place] Glucose [Mass/Vol] 96 mg/dL Normal 74-99 [facility] Comment on above: Order Comment: Margarita zendejas Type: BLOOD SPECIMEN Ordering Facility: [facility] Address: [address] [place] [address] Result Comment: The [place] [employer] (ADA) provides guidance for cutoff [...] Standards of Medical Care in Diabetes 2016, [place] [employer]. Diabetes Care. 2016.39(Suppl 1). Performed By: #### 1 988-5, 82630-1 #### [facility] CLIA [id number] [address] [place] [address] [place] Potassium [Moles/Vol] 4.1 mmol/L Normal 3.7-5.1 [facility] Comment on above: Order Comment: Margarita zendejas Type: BLOOD SPECIMEN Ordering Facility: [facility] Address: [address] [place] [address] Performed By: #### 1 988-5, 08227-7 #### [facility] CLIA [id number] [address] [place] [address] [place] Protein [Mass/Vol] 6.7 g/dL Normal 6.3-8.0 [facility] Comment on above: Order Comment: Speci men Type: BLOOD SPECIMEN Ordering Facility: [facility] Address: [address] [place] [address] Performed By: #### 1 988-5, 75866-8 #### [facility] CLIA [id number] [address] [place] [address] [place] [facility] Sodium [Moles/Vol] 138 mmol/L Normal 136-144 [facility] Comment on above: Order Comment: Speci men Type: BLOOD SPECIMEN Ordering Facility: [facility] Address: [address] [place] [address] Performed By: #### 1 988-5, 46607-6 #### [facility] CLIA [id number] [address] [place] [address] [place] Urea nitrogen [Mass/Vol] 13 mg/dL Normal 7-21 [facility] Comment on above: Order Comment: Speci men Type: BLOOD SPECIMEN Ordering Facility: [facility] Address: [address] [place] [address] Performed By: #### 1 988-5, 87402-7 #### [facility] CLIA [id number] [address] [place] [address] [facility] ED NOTEon 04-28-2024 ED NOTE HNO ID: [id number] Author: CHRISTOPHER REYEZ RN Service: ? Author Type: Registered Nurse Type: ED Notes Filed: 04/28/2024 22:18 Note Text: Discharge instructions reviewed with patient - see AVS. Pt able to dress self and ambulate with steady gait. Family present to drive patient home. Patient knows to return to ED with worsening signs/symptoms and follow up as directed. Normal [facility] [facility] PROV NOTEon 04-28-2024 ED PROV NOTE HNO ID: [id number] Author: LINDA HODGE MD Service: Emergency Medicine [...] had similar rash when she traveled to [facility] previously and had prior rash in December [...] 2329 Pe (more content not included)... Normal [facility] ED Triage Noteon 04-28-2024 ED Triage Note HNO ID: [id number] Author: ROBBY SLOAN DO Service: Emergency Medicine [...] rash did begin when she traveled to [facility] and ate wheat, which she has a [...] bedside clinician. SIGNATURE: Robby Sloan DO Normal [facility] HAV IgM Ser Qlon 04-28-2024 HAV IgM Ql (S) Negative Normal Negative [facility] Comment on above: Order Comment: Speci men Type: BLOOD SPECIMEN Ordering Facility: [facility] Address: [address] [place] [address] Result Comment: No e vidence of recent infection with Hepatitis A virus. Performed By: #### 5 195-3, [id number], [id number] #### [facility] CLIA [id number] [address] [place] [address] [place] HBV core IgM Ser Qlon 2023 HBV core IgM Ql (S) Negative Normal Negative [facility] Comment on above: Order Comment: Speci cristiana Type: BLOOD SPECIMEN Ordering Facility: [facility] Address: [address] [place] [address] Result Comment: No e vidence of recent infection with Hepatitis B virus. Should recent infection be suspected, repeat testing may be considered 3-4 weeks after this draw. Performed By: #### 5 195-3, [id number], [id number] #### [facility] CLIA [id number] [address] [place] [address] [place] HBV surface Ag Ser Qlon 08-0 HBV surface Ag Ql (S) Negative Normal Negative [facility] Comment on above: Order Comment: Speci men Type: BLOOD SPECIMEN Ordering Facility: [facility] Address: [address] [place] [address] Performed By: #### 5 195-3, [id number], 60241-9 #### [facility] CLIA [id number] [address] [place] [address] [place] HCV RNA SerPl POLLO+probe-aCnc on 04-28-2024 HCV RNA POLLO+probe Qn Not detected Normal HCV RNA not detected by PCR. [facility] Comment on above: Order Comment: Speci men Type: BLOOD SPECIMEN Ordering Facility: [facility] Address: [address] [place] [address] Performed By: #### 1 [id number] #### [facility] [place] [id number] [address] [place] [address] [place] Alanine aminotransferase [En zymatic activity/volume] in Serum or PlasmaOrdered By: Carlin Godfrey on 04-08-2024 ALT [Catalytic activity/Vol] 12 U/L 7-52 [facility] Albumin [Mass/volume] in Ser um or Plasma by Bromocresol green (BCG) dye binding methoOrdered By: Carlin Godfrey on 04-08-2024 Albumin BCG dye [Mass/Vol] 3.1 g/dL Low 3.5-5.7 [facility] Alkaline phosphatase [Enzyma tic activity/volume] in Serum or PlasmaOrdered By: Carlin Godfrey on 04-08-2024 ALP [Catalytic activity/Vol] 55 U/L 34-104 [facility] Aspartate aminotransferase [ Enzymatic activity/volume] in Serum or PlasmaOrdered By: Carlin Godfrey on 04-08-2024 AST [Catalytic activity/Vol] 16 U/L 13-39 [facility] Basophils Auto (Bld) [#/Vol] Ordered By: Carlin Godfrey on 04-08-2024 Basophils (Bld) [#/Vol] 0.0 10*3/uL 0.0-0.2 [facility] Basophils/100 WBC Auto (Bld) Ordered By: Carlin Godfrey on 04-08-2024 Basophils/100 WBC (Bld) 0.2 % . [facility] Bilirubin.total [Mass/volume ] in Serum or PlasmaOrdered By: Carlin Godfrey on 04-08-2024 Bilirubin [Mass/Vol] 0.4 mg/dL 0.3-1.0 [facility] Calcium [Mass/volume] in Ser um or PlasmaOrdered By: Carlin Godfrey on 04-08-2024 Calcium [Mass/Vol] 8.5 mg/dL Low 8.6-10.3 [facility] Carbon dioxide, total [Moles /volume] in Serum or PlasmaOrdered By: Carlin Godfrey on 04-08-2024 CO2 [Moles/Vol] 25.5 mmol/L 21.0-31.0 [facility] Chloride [Moles/volume] in S yin or PlasmaOrdered By: Carlin Godfrey on 04-08-2024 Chloride [Moles/Vol] 105 mmol/L 98-107 [facility] Creatinine [Mass/volume] in Serum or PlasmaOrdered By: Carlin Godfrey on 04-08-2024 Creatinine [Mass/Vol] 0.81 mg/dL 0.60-1.20 [facility] Eosinophils Auto (Bld) [#/Vo l]Ordered By: Carlin Godfrey on 04-08-2024 Eosinophils (Bld) [#/Vol] 6.9 10*3/uL High 0.0-0.45 [facility] Eosinophils/100 WBC Auto (Bl d)Ordered By: Carlin Godfrey on 04-08-2024 Eosinophils/100 WBC (Bld) 40.7 % . [facility] Erythrocyte distribution wid th Auto (RBC) [Ratio]Ordered By: Carlin Godfrey on 04-08-2024 Erythrocyte distribution width (RBC) [Ratio] 14.0 % 11.9-15.3 [facility] Globulin Calc (S) [Mass/Vol] Ordered By: Carlin Godfrey on 04-08-2024 Globulin (S) [Mass/Vol] 2.5 g/dL [facility] Glucose [Mass/volume] in Ser um or PlasmaOrdered By: Carlin Godfrey on 04-08-2024 Glucose [Mass/Vol] 86 mg/dL 70-100 [facility] Comment on above: ADA recommended refe rence rangeRandom Glucose Reference Range is dependent on time and content of last meal. Glucose of more than 200 mg/dL in a nonstressed, ambulatory subject supports the diagnosis of Diabetes Mellitus. Hematocrit Auto (Bld) [Volum e fraction]Ordered By: Carlin Godfrey on 04-08-2024 Hematocrit (Bld) [Volume fraction] 37.1 % 34.0-46.4 [facility] Hemoglobin [Mass/volume] in BloodOrdered By: Carlin Godfrey on 04-08-2024 Hemoglobin (Bld) [Mass/Vol] 12.5 g/dL 11.8-15.4 [facility] Leukocytes [#/volume] correc cal for nucleated erythrocytes in Blood by Automated counOrdered By: Carlin Godfrey on 04-08-2024 WBC corrected for nucl RBC Auto (Bld) [#/Vol] 17.0 10*3/uL High 3.8-11.6 [facility] Lymphocytes Auto (Bld) [#/Vo l]Ordered By: Carlin Godfrey on 04-08-2024 Lymphocytes (Bld) [#/Vol] 2.7 10*3/uL 1.00-4.8 [facility] Lymphocytes/100 WBC Auto (Bl d)Ordered By: Carlin Godfrey on 04-08-2024 Lymphocytes/100 WBC (Bld) 15.7 % . [facility] MCH Auto (RBC) [Entitic mass ]Ordered By: Carlin Godfrey on 04-08-2024 MCH (RBC) [Entitic mass] 29.9 pg 24.7-34.3 [facility] MCHC Auto (RBC) [Mass/Vol]Or dered By: Carlin Godfrey on 04-08-2024 MCHC (RBC) [Mass/Vol] 33.7 g/dL 32.0-35.0 [facility] MCV Auto (RBC) [Entitic vol] Ordered By: Carlin Godfrey on 04-08-2024 MCV (RBC) [Entitic vol] 88.9 fL 80-100 [facility] Monocyte distribution width [Entitic volume] in Blood by AutomatedOrdered By: Carlin Godfrey on 04-08-2024 Monocyte distribution width Auto (Bld) [Entitic vol] 23.59 % High 0.00-20.00 [facility] Comment on above: For adults in ED, MD W > 20.0 may be associated with a higher risk of sepsis during the first 12 hrs of hospital admission Monocytes Auto (Bld) [#/Vol] Ordered By: Carlin Godfrey on 04-08-2024 Monocytes (Bld) [#/Vol] 1.2 10*3/uL High 0.0-0.8 [facility] Monocytes/100 WBC Auto (Bld) Ordered By: Carlin Godfrey on 04-08-2024 Monocytes/100 WBC (Bld) 6.9 % . [facility] Neutrophils Auto (Bld) [#/Vo l]Ordered By: Carlin Godfrey on 04-08-2024 Neutrophils (Bld) [#/Vol] 6.2 10*3/uL 1.8-7.7 [facility] Neutrophils/100 WBC Auto (Bl d)Ordered By: Carlin Godfrey on 04-08-2024 Neutrophils/100 WBC (Bld) 36.5 % . [facility] No Panel InformationOrdered By: Carlin Godfrey on 04-08-2024 Estimated GFR (CKD-EPI) > 60.0 mL/Min [facility] Creatinine Clearance (Chem 58.98 [facility] Nucleated erythrocytes [Pres ence] in Blood by Automated countOrdered By: Carlin Godfrey on 04-08-2024 Nucleated RBC Auto Ql (Bld) 0.1 /100{WBC} 0-0.5 [facility] Platelet adequacy [Presence] in Blood by Light microscopyOrdered By: Carlin Godfrey on 04-08-2024 Platelets LM Ql (Bld) Normal Normal [facility] Platelet mean volume Auto (B ld) [Entitic vol]Ordered By: Carlin Godfrey on 04-08-2024 Platelet mean volume (Bld) [Entitic vol] 8.2 fL 6.3-10.7 [facility] Platelet morphology finding [Identifier] in BloodOrdered By: Carlin Godfrey on 04-08-2024 Platelet morphology finding Nom (Bld) Normal Normal [facility] Platelets Auto (Bld) [#/Vol] Ordered By: Carlin Godfrey on 04-08-2024 Platelets (Bld) [#/Vol] 381 10*3/uL 150-450 [facility] Potassium [Moles/volume] in Serum or PlasmaOrdered By: Carlin Godfrey on 04-08-2024 Potassium [Moles/Vol] 3.4 mmol/L Low 3.5-5.1 [facility] Protein [Mass/volume] in Ser um or PlasmaOrdered By: Carlin Godfrey on 04-08-2024 Protein [Mass/Vol] 5.6 g/dL Low 6.4-8.9 [facility] RBC Auto (Bld) [#/Vol]Ordere d By: Carlin Godfrey on 04-08-2024 RBC (Bld) [#/Vol] 4.18 10*6/uL 3.60-5.00 [facility] RBC morphologyOrdered By: Thuy Godfrey on 04-08-2024 RBC morphology finding Nom (Bld) Normal Normal [facility] Serum or plasma albumin/glob ulin mass ratioOrdered By: Carlin Godfrey on 04-08-2024 Albumin/Globulin [Mass ratio] 1.2 {ratio} [facility] Serum or plasma anion gap de terminationOrdered By: Carlin Godfrey on 04-08-2024 Anion gap [Moles/Vol] 10.9 mmol/L 6.0-15.0 [facility] Sodium [Moles/volume] in Ser um or PlasmaOrdered By: Carlin Godfrey on 04-08-2024 Sodium [Moles/Vol] 138 mmol/L 136-145 [facility] Urea nitrogen [Mass/volume] in Serum or PlasmaOrdered By: Carlin Godfrey on 04-08-2024 Urea nitrogen [Mass/Vol] 17 mg/dL 7-25 [facility] WBC Auto (Bld) [#/Vol]Ordere d By: Carlin Paynethuy on 04-08-2024 WBC (Bld) [#/Vol] 17.0 10*3/uL High 3.8-11.6 [facility] Alanine aminotransferase [En zymatic activity/volume] in Serum or PlasmaOrdered By: Clarence Kovacs on 04-04-2024 ALT [Catalytic activity/Vol] 11 U/L 7-52 [facility] Albumin [Mass/volume] in Ser um or Plasma by Bromocresol green (BCG) dye binding methoOrdered By: Clarence Kovacs on 04-04-2024 Albumin BCG dye [Mass/Vol] 3.5 g/dL 3.5-5.7 [facility] Alkaline phosphatase [Enzyma tic activity/volume] in Serum or PlasmaOrdered By: Clarence Kovacs on 04-04-2024 ALP [Catalytic activity/Vol] 72 U/L 34-104 [facility] Anisocytosis LM Ql (Bld)Orde red By: Clarence Kovacs on 04-04-2024 Anisocytosis Ql (Bld) Slight [facility] Aspartate aminotransferase [ Enzymatic activity/volume] in Serum or PlasmaOrdered By: Clarence Kovacs on 04-04-2024 AST [Catalytic activity/Vol] 18 U/L 13-39 [facility] Basophils Auto (Bld) [#/Vol] Ordered By: Clarence Kovacs on 04-04-2024 Basophils (Bld) [#/Vol] N/A [facility] Basophils/100 WBC Auto (Bld) Ordered By: Clarence Kovacs on 04-04-2024 Basophils/100 WBC (Bld) N/A [facility] Bilirubin.total [Mass/volume ] in Serum or PlasmaOrdered By: Clarence Kovacs on 04-04-2024 Bilirubin [Mass/Vol] 0.5 mg/dL 0.3-1.0 [facility] C reactive protein [Mass/vol ume] in Serum or PlasmaOrdered By: Clarence Kovacs on 04-04-2024 CRP [Mass/Vol] < 0.5 mg/dL 0.0-0.5 [facility] Calcium [Mass/volume] in Ser um or PlasmaOrdered By: Clarence Kovacs on 04-04-2024 Calcium [Mass/Vol] 8.7 mg/dL 8.6-10.3 [facility] Carbon dioxide, total [Moles /volume] in Serum or PlasmaOrdered By: Clarence Kovacs on 04-04-2024 CO2 [Moles/Vol] 25.8 mmol/L 21.0-31.0 [facility] Chloride [Moles/volume] in S yin or PlasmaOrdered By: Clarence Kovacs on 04-04-2024 Chloride [Moles/Vol] 101 mmol/L 98-107 [facility] Creatinine [Mass/volume] in Serum or PlasmaOrdered By: Clarence Kovacs on 04-04-2024 Creatinine [Mass/Vol] 0.85 mg/dL 0.60-1.20 [facility] Eosinophils Auto (Bld) [#/Vo l]Ordered By: Clarence Kovacs on 04-04-2024 Eosinophils (Bld) [#/Vol] N/A [facility] Eosinophils/100 WBC Auto (Bl d)Ordered By: Clarence Kovacs on 04-04-2024 Eosinophils/100 WBC (Bld) N/A [facility] Eosinophils/100 WBC Manual c nt (Bld)Ordered By: Clarence Kovacs on 04-04-2024 Eosinophils/100 WBC (Bld) 33 % High 1-3 [facility] Comment on above: Absolute eosinophili a is commonly due to reactive causes, such as allergic reactions, drug therapy, or infections. Eosinophilia may also be due to malignancies including chronic myeloproliferative disorders. If eosinophilia remains persistent and unexplained for greater than 3 months, recommend additional hematologic work-up/hematology consultation, and/or FISH studies for PDGFRA, PDGFRB, and FGFR1 translocations as clinically indicated. Erythrocyte distribution wid th Auto (RBC) [Ratio]Ordered By: Clarence Kovacs on 04-04-2024 Erythrocyte distribution width (RBC) [Ratio] 13.7 % 11.9-15.3 [facility] Erythrocyte sedimentation ra te by Photometric methodOrdered By: Clarence Kovacs on 04-04-2024 ESR Photometric method (Bld) [Velocity] 8 mm/hr 0-29 [facility] Globulin Calc (S) [Mass/Vol] Ordered By: Clarence Kovacs on 04-04-2024 Globulin (S) [Mass/Vol] 3.0 g/dL [facility] Glucose [Mass/volume] in Ser um or PlasmaOrdered By: Clarence Kovacs on 04-04-2024 Glucose [Mass/Vol] 100 mg/dL 70-100 [facility] Comment on above: ADA recommended refe rence rangeRandom Glucose Reference Range is dependent on time and content of last meal. Glucose of more than 200 mg/dL in a nonstressed, ambulatory subject supports the diagnosis of Diabetes Mellitus. Hematocrit Auto (Bld) [Volum e fraction]Ordered By: Clarence Kovacs on 04-04-2024 Hematocrit (Bld) [Volume fraction] 42.6 % 34.0-46.4 [facility] Hemoglobin [Mass/volume] in BloodOrdered By: Clarence Kovacs on 04-04-2024 Hemoglobin (Bld) [Mass/Vol] 14.4 g/dL 11.8-15.4 [facility] Leukocytes [#/volume] correc cal for nucleated erythrocytes in Blood by Automated counOrdered By: Clarence Kovacs on 04-04-2024 WBC corrected for nucl RBC Auto (Bld) [#/Vol] 11.7 10*3/uL High 3.8-11.6 [facility] Lymphocytes Auto (Bld) [#/Vo l]Ordered By: Clarence Kovacs on 04-04-2024 Lymphocytes (Bld) [#/Vol] N/A [facility] Lymphocytes/100 WBC Auto (Bl d)Ordered By: Clarence Kovacs on 04-04-2024 Lymphocytes/100 WBC (Bld) N/A [facility] Lymphocytes/100 WBC Manual c nt (Bld)Ordered By: Clarence Kovacs on 04-04-2024 Lymphocytes/100 WBC (Bld) 15 % Low 18-42 [facility] MCH Auto (RBC) [Entitic mass ]Ordered By: Clarence Kovacs on 04-04-2024 MCH (RBC) [Entitic mass] 30.3 pg 24.7-34.3 [facility] MCHC Auto (RBC) [Mass/Vol]Or dered By: Clarence Kovacs on 04-04-2024 MCHC (RBC) [Mass/Vol] 33.9 g/dL 32.0-35.0 [facility] MCV Auto (RBC) [Entitic vol] Ordered By: Clarence Kovacs on 04-04-2024 MCV (RBC) [Entitic vol] 89.3 fL 80-100 [facility] Monocyte distribution width [Entitic volume] in Blood by AutomatedOrdered By: Clarence Kovasc on 04-04-2024 Monocyte distribution width Auto (Bld) [Entitic vol] 29.96 % High 0.00-20.00 [facility] Comment on above: For adults in ED, MD W > 20.0 may be associated with a higher risk of sepsis during the first 12 hrs of hospital admission Monocytes Auto (Bld) [#/Vol] Ordered By: Clarence Kovacs on 04-04-2024 Monocytes (Bld) [#/Vol] N/A [facility] Monocytes/100 WBC Auto (Bld) Ordered By: Clarence Kovacs on 04-04-2024 Monocytes/100 WBC (Bld) N/A [facility] Monocytes/100 WBC Manual cnt (Bld)Ordered By: Clarence Kovacs on 04-04-2024 Monocytes/100 WBC (Bld) 10 % 2-11 [facility] Natriuretic peptide B [Mass/ Vol]Ordered By: Margarita Olivares on 04-04-2024 Natriuretic peptide B (Bld) [Mass/Vol] 60.0 pg/mL 5-100 [facility] Neutrophils Auto (Bld) [#/Vo l]Ordered By: Clarence Kovacs on 04-04-2024 Neutrophils (Bld) [#/Vol] N/A [facility] Neutrophils/100 WBC Auto (Bl d)Ordered By: Clarence Kovacs on 04-04-2024 Neutrophils/100 WBC (Bld) N/A [facility] No Panel InformationOrdered By: Clarence Kovacs on 04-04-2024 Estimated GFR (CKD-EPI) > 60.0 mL/Min [facility] Creatinine Clearance (Chem 56.50 [facility] Nucleated erythrocytes [Pres ence] in Blood by Automated countOrdered By: Clarence Kovacs on 04-04-2024 Nucleated RBC Auto Ql (Bld) N/A [facility] Platelet adequacy [Presence] in Blood by Light microscopyOrdered By: Clarence Kovacs on 04-04-2024 Platelets LM Ql (Bld) Normal Normal [facility] Platelet mean volume Auto (B ld) [Entitic vol]Ordered By: Clarence Kovacs on 04-04-2024 Platelet mean volume (Bld) [Entitic vol] 8.6 fL 6.3-10.7 [facility] Platelet morphology finding [Identifier] in BloodOrdered By: Clarence Kovacs on 04-04-2024 Platelet morphology finding Nom (Bld) Normal Normal [facility] Platelets Auto (Bld) [#/Vol] Ordered By: Clarence Kovacs on 04-04-2024 Platelets (Bld) [#/Vol] 369 10*3/uL 150-450 [facility] Poikilocytosis [Presence] in Blood by Light microscopyOrdered By: Clarence Kovacs on 04-04-2024 Poikilocytosis LM Ql (Bld) Slight [facility] Potassium [Moles/volume] in Serum or PlasmaOrdered By: Clarence Kovacs on 04-04-2024 Potassium [Moles/Vol] 4.0 mmol/L 3.5-5.1 [facility] Protein [Mass/volume] in Ser um or PlasmaOrdered By: Clarence Kovacs on 04-04-2024 Protein [Mass/Vol] 6.5 g/dL 6.4-8.9 [facility] RBC Auto (Bld) [#/Vol]Ordere d By: Clarence Kovacs on 04-04-2024 RBC (Bld) [#/Vol] 4.77 10*6/uL 3.60-5.00 [facility] RBC morphologyOrdered By: Corey Kovacs on 04-04-2024 RBC morphology finding Nom (Bld) N/A [facility] Segmented neutrophils/100 WB C Manual cnt (Bld)Ordered By: Clarence Kovacs on 04-04-2024 Segmented neutrophils/100 WBC (Bld) 42 % Low 50-70 [facility] Serum or plasma albumin/glob ulin mass ratioOrdered By: Clarence Kovacs on 04-04-2024 Albumin/Globulin [Mass ratio] 1.2 {ratio} [facility] Serum or plasma anion gap de terminationOrdered By: Clarence Kovacs on 04-04-2024 Anion gap [Moles/Vol] 12.2 mmol/L 6.0-15.0 [facility] Sodium [Moles/volume] in Ser um or PlasmaOrdered By: Clarence Kovacs on 04-04-2024 Sodium [Moles/Vol] 135 mmol/L Low 136-145 [facility] Streptococcus pyogenes antig en detectionOrdered By: Clarence Kovacs on 04-04-2024 S. pyogenes Ag Ql (Unsp spec) [facility] Urea nitrogen [Mass/volume] in Serum or PlasmaOrdered By: Clarence Kovacs on 04-04-2024 Urea nitrogen [Mass/Vol] 12 mg/dL 7-25 [facility] WBC Auto (Bld) [#/Vol]Ordere d By: Clarence Kovacs on 04-04-2024 WBC (Bld) [#/Vol] 11.7 10*3/uL High 3.8-11.6 [facility] Cytology Cervical or vaginal smear or scraping studyOrdered By: Catie Gibson on 07-20-2023 [facility] Albumin [Mass/volume] in Ser um or PlasmaOrdered By: Henrique Vail on 09-18-2022 Albumin [Mass/Vol] 4.0 g/dL 3.2-5.5 [facility] Alkaline phosphatase [Enzyma tic activity/volume] in Serum or PlasmaOrdered By: Henrique Vail on 09-18-2022 ALP [Catalytic activity/Vol] 44 U/L 32-92 [facility] Aspartate aminotransferase [ Enzymatic activity/volume] in Serum or PlasmaOrdered By: Henrique Vail on 09-18-2022 AST [Catalytic activity/Vol] 23 U/L 10-42 [facility] Bilirubin.direct [Mass/volum e] in Serum or PlasmaOrdered By: Henrique Vail on 09-18-2022 Bilirubin.direct [Mass/Vol] mg/dL 0.0-0.4 [facility] Bilirubin.total [Mass/volume ] in Serum or PlasmaOrdered By: Henrique Vail on 09-18-2022 Bilirubin [Mass/Vol] 0.4 mg/dL 0.3-1.2 [facility] Globulin Calc (S) [Mass/Vol] Ordered By: Henrique Vail on 09-18-2022 Globulin (S) [Mass/Vol] 2.7 g/dL [facility] Protein [Mass/volume] in Ser um or PlasmaOrdered By: Henrique Vail on 09-18-2022 Protein [Mass/Vol] 6.7 g/dL 6.1-7.9 [facility] Serum or plasma alanine steve otransferase measurement without P-5'-P (enzymatic activiOrdered By: Henrique Vial on 09-18-2022 ALT No additional P-5'-P [Catalytic activity/Vol] 23 U/L 10-60 [facility] Serum or plasma albumin/glob ulin mass ratioOrdered By: Henrique Vail on 09-18-2022 Albumin/Globulin [Mass ratio] 1.5 {ratio} [facility] Serum or plasma non-glucuron idated bilirubin measurement (mass/volume)Ordered By: Henrique Vail on 09-18-2022 Bilirubin.indirect [Mass/Vol] TNP [facility] Comment on above: Test not performed Initial Visit (Gastroenterol ogy)on 08-26-2022 Initial Visit (Gastroenterology) Diagnoses/Problems Assessed Abnormal radiographic examination (793.99) (R93.89) Orders Abnormal radiographic examination Hepatic Function Panel; Status:Active; Requested for:[id number]; Perform:Lab Services - Lab To Draw (Blood [...] : DR BENEDICTO LAN . Admission #: [id number] Family : Order #: [id number] CLICK HERE TO VIEW EXAM RADIOLOGY REPORT [...] breast cancer at age 35. LOCATION: [facility] BREAST COMPOSITION: Heterogeneously dense,which may obscure [...] M.D. on 03/24/2022 at 14:41 Normal [facility] US BREAST DICK LIMITEDon 07-0 US BREAST DICK LIMITED Patient: MIRIAN CORRALES Exam Date: 03/24/2022 : 1955 Gender:F Ordering : DR BENEDICTO LAN . Admission #: [id number] Family : Order #: [id number] CLICK HERE TO VIEW EXAM RADIOLOGY REPORT [...] breast cancer at age 35. LOCATION: [facility] BREAST COMPOSITION: Heterogeneously dense,which may obscure [...] M.D. on 03/24/2022 at 14:41 Normal [facility] XR DEXA BONE DENSITYon 03-24 XR [...] authenticated by: RADHA SABILLON Date: 2022-03-24 17:39 [facility] PAP ACOG PANEL 2: 30 to 65on 03-19-2022 . . Normal [facility] Comment on above: Performed By: #### [id number] #### [facility] [address] [place] [address] Dr. Lilo Warren Age Gdln ACOG Testing Comment Normal [facility] Comment on above: Result Comment: <21 or >65 or no age provided Performed By: #### [id number] #### [facility] [address] [place] [address] Dr. Lilo Warren DIAGNOSIS: Comment [facility] Comment on above: Result Comment: NEGA TIVE FOR INTRAEPITHELIAL LESION OR MALIGNANCY. CELLULAR CHANGES ASSOCIATED WITH ATROPHY ARE PRESENT. Performed By: #### [id number] #### [facility] [address] [place] [address] Dr. Lilo Warren Methodology: Comment [facility] Comment on above: Result Comment: This liquid based ThinPrep(R) pap test was screened with the use of an image guided system. Performed By: #### [id number] #### [facility] [address] [place] [address] Dr. Lilo Warren Note: Comment [facility] Comment on above: Result Comment: The Pap smear is a screening test designed to aid in the detection of premalignant and malignant conditions of the uterine cervix. It is not a diagnostic procedure and should not be used as the sole means of detecting cervical cancer. Both false-positive and false-negative reports do occur. . Performed By: #### [id number] #### [facility] [address] [address] [address] Lilo Warren Performed by: Comment Normal [facility] Comment on above: Result Comment: Yg Smith, Attorney At Law (ASCP) Performed By: #### [id number] #### [facility] [address] [address] [address] Lilo Warren Specimen adequacy: Comment Normal [facility] Comment on above: Result Comment: Sati sfactory for evaluation. Endocervical and/or squamous metaplastic cells (endocervical component) are present. Performed By: #### [id number] #### [facility] [address] [address] [address] Lilo Warren [facility] DIGITAL DIAGNOSTIC W OR WO CAD BILATERALon 05-07-2019 [facility] DIGITAL DIAGNOSTIC W OR WO CAD BILATERAL [...] Black Lane MD 05/07/19 Final result Normal [facility] 05-07-2019 1. No convincing mammographic or [...] sent to the patient regarding the results. [facility], [place] EXAMINATION: BILATER [place] DIGITAL DIAGNOSTIC [...] thickening of an axillary node. [facility] [place], [place] Rigoberto, [employer] Incoming R adiant Results From [employer] - 05/07/2019 3:26 PM EDT EXAMINATION: BILATERAL [...] sent to the patient regarding the results. [place] US BREAST COMPLETE LEFTon US BREAST [...] Lane MD 05/07/19 Final result Normal [facility] US BREAST COMPLETE RIGHTon 0 05-07-2019 [...] Black Lane MD 05/07/19 Final result Normal [facility] DIGITAL SCREEN W OR WO C AD BILATERALon 04-10-2019 [facility] DIGITAL SCREEN W OR WO CAD BILATERAL [...] Susy Peterson MD 04/10/19 Final result Normal [facility] Surgical Pathologyon 019 Surgical Pathology (NOTE) [id number] [facility] ANATOMIC PATHOLOGY [address] [place] [id number] SURGICAL PATHOLOGY CONSULTATION Patient Name: MIRIAN CORRALES [facility] Rec: [id number] Path Number: [id number] Collected: 03/15/2019 Received: 03/16/2019 Reported: 03/17/2019 09:30 -- Diagnosis -- POLYP, COLORECTAL (SIGMOID): - BENIGN ADENOMATOUS POLYP (TUBULAR ADENOMA). Justo Walters M.D. Electronically Signed Out [facility]/03/17/2019 Clinical Information Pre-op Diagnosis: COLON CANCER SCREENING Operative Findings: SIGMOID COLON POLYP Operation Performed: COLONOSCOPY, POLYPECTOMY SNARE/COLD BIOPSY Source of Specimen 1: SIGMOID COLON POLYP Gross Description MIRIAN CORRALES SIGMOID COLON POLYP One jimenez-white tissue fragment, 1.8 x 0.6 x 0.1 cm. Entirely 1cs. rh tm Microscopic Description Microscopic examination performed. Normal [facility] Comment on above: Performed By: #### P PPVS #### [facility] [address] [place] [id number] Asp Developer: Darryl Walters MD Vital Signs Date Time Vital Sign Value Performing Clinician Facility 06-18-2025 14:27-0400 Body weight 48.61 kg Conner Stanley DO Work Phone: [facility] 06-18-2025 14:27-0400 Diastolic blood pressure 76 mm[Hg] Conner Stanley DO Work Phone: [facility] 06-18-2025 14:27-0400 Heart rate 86 /min Conner Stanley DO Work Phone: [facility] 06-18-2025 14:27-0400 Respiratory rate 16 /min Conner Stanley DO Work Phone: [facility] 06-18-2025 14:27-0400 SaO2% (BldA) [Mass fraction] 100 % Conner Vaschak DO Work Phone: [facility] 06-18-2025 14:27-0400 Systolic blood pressure 141 mm[Hg] Conner Vaschak DO Work Phone: [facility] 05-30-2025 09:00-0400 Body temperature 98 [degF] Conner Vaschak DO Work Phone: [facility] 05-30-2025 09:00-0400 Diastolic blood pressure 76 mm[Hg] Conner Vaschak DO Work Phone: [facility] 05-30-2025 09:00-0400 Heart rate 87 /min Conner Jacintachak DO Work Phone: [facility] 05-30-2025 09:00-0400 Respiratory rate 16 /min Conner Millerk DO Work Phone: [facility] 05-30-2025 09:00-0400 SaO2% (BldA) [Mass fraction] 100 % Conner Jacintachak DO Work Phone: [facility] 05-30-2025 09:00-0400 Systolic blood pressure 149 mm[Hg] Conner Vaschak DO Work Phone: [facility] 05-29-2025 15:14-0400 Body mass index (BMI) [Ratio] 17.36 kg/m2 Juan Whalen MD Work Phone: [facility] 05-29-2025 15:14-0400 Body temperature 98.2 [degF] Juan Whalen MD Work Phone: [facility] 05-29-2025 15:14-0400 Body weight 48.8 kg Juan Whalen MD Work Phone: [facility] 05-29-2025 15:14-0400 Diastolic blood pressure 70 mm[Hg] Juan Whalen MD Work Phone: [facility] 05-29-2025 15:14-0400 Heart rate 80 /min Juan Whalen MD Work Phone: [facility] 05-29-2025 15:14-0400 SaO2% (BldA) [Mass fraction] 98 % Juan Whalen MD Work Phone: [facility] 05-29-2025 15:14-0400 Systolic blood pressure 140 mm[Hg] Juan Whalen MD Work Phone: [facility] 05-28-2025 09:02-0400 Body temperature 97.8 [degF] Conner Vaschak DO Work Phone: [facility] 05-28-2025 09:02-0400 Body weight 49.44 kg Conner Vaschak DO Work Phone: [facility] 05-28-2025 09:02-0400 Diastolic blood pressure 71 mm[Hg] Conner Vaschak DO Work Phone: [facility] 05-28-2025 09:02-0400 Heart rate 87 /min Conner Vaschak DO Work Phone: [facility] 05-28-2025 09:02-0400 Respiratory rate 18 /min Conner Vaschak DO Work Phone: [facility] 05-28-2025 09:02-0400 Systolic blood pressure 147 mm[Hg] Conner Vaschak DO Work Phone: [facility] 05-01-2025 14:06-0400 Body height 167.6 cm Pac 3 Work Phone: [facility] Comment on above: pt reported 05-01-2025 14:06-0400 Body mass index (BMI) [Ratio] 17.11 kg/m2 Pac 3 Work Phone: [facility] 05-01-2025 14:06-0400 Body weight 48.08 kg Pac 3 Work Phone: [facility] Comment on above: pt reported 04-27-2025 15:15-0400 Body mass index (BMI) [Ratio] 17.58 kg/m2 Juan Whalen MD Work Phone: [facility] 04-27-2025 15:15-0400 Body temperature 98.4 [degF] Juan Whalen MD Work Phone: [facility] 04-27-2025 15:15-0400 Body weight 49.4 kg Juan Whalen MD Work Phone: [facility] 04-27-2025 15:15-0400 Diastolic blood pressure 72 mm[Hg] Juan Whalen MD Work Phone: [facility] 04-27-2025 15:15-0400 Heart rate 82 /min Juan Whalen MD Work Phone: [facility] 04-27-2025 15:15-0400 SaO2% (BldA) [Mass fraction] 100 % Juan Whalen MD Work Phone: [facility] 04-27-2025 15:15-0400 Systolic blood pressure 128 mm[Hg] Juan Whalen MD Work Phone: [facility] 04-20-2025 08:42-0400 Body weight 50.46 kg Conner Angelak DO Work Phone: [facility] 04-20-2025 08:42-0400 Diastolic blood pressure 84 mm[Hg] Conner Vaschak DO Work Phone: [facility] 04-20-2025 08:42-0400 Heart rate 75 /min Conner Vaschak DO Work Phone: [facility] 04-20-2025 08:42-0400 Respiratory rate 16 /min Conner Vaschak DO Work Phone: [facility] 04-20-2025 08:42-0400 SaO2% (BldA) [Mass fraction] 100 % Conner Vaschak DO Work Phone: [facility] 04-20-2025 08:42-0400 Systolic blood pressure 173 mm[Hg] Conner Vaschak DO Work Phone: [facility] 03-30-2025 08:51-0400 Body temperature 98.1 [degF] Conner Vaschak DO Work Phone: [facility] 03-30-2025 08:51-0400 Body weight 48.98 kg Conner Vaschak DO Work Phone: [facility] 03-30-2025 08:51-0400 Diastolic blood pressure 76 mm[Hg] Conner Vaschak DO Work Phone: [facility] 03-30-2025 08:51-0400 Heart rate 98 /min Conner Vaschak DO Work Phone: [facility] 03-30-2025 08:51-0400 Respiratory rate 20 /min Conner Jacintachak DO Work Phone: [facility] 03-30-2025 08:51-0400 SaO2% (BldA) [Mass fraction] 98 % Conner Angelak DO Work Phone: [facility] 03-30-2025 08:51-0400 Systolic blood pressure 146 mm[Hg] Conner Vaschak DO Work Phone: [facility] 03-08-2025 08:12-0400 Body temperature 98.4 [degF] Conner Vaschak DO Work Phone: [facility] 03-08-2025 08:12-0400 Diastolic blood pressure 72 mm[Hg] Conner Angelak DO Work Phone: [facility] 03-08-2025 08:12-0400 Heart rate 72 /min Conner Vaschak DO Work Phone: [facility] 03-08-2025 08:12-0400 Respiratory rate 16 /min Conner Vaschak DO Work Phone: [facility] 03-08-2025 08:12-0400 SaO2% (BldA) [Mass fraction] 99 % Conner Jacintachak DO Work Phone: [facility] 03-08-2025 08:12-0400 Systolic blood pressure 137 mm[Hg] Conner Vaschak DO Work Phone: [facility] 03-05-2025 13:41-0400 Body temperature 97.4 [degF] Conner Vaschak DO Work Phone: [facility] 03-05-2025 13:41-0400 Body weight 51.25 kg Conner Vaschak DO Work Phone: [facility] 03-05-2025 13:41-0400 Diastolic blood pressure 81 mm[Hg] Conner Vaschak DO Work Phone: [facility] 03-05-2025 13:41-0400 Heart rate 67 /min Conner Vaschak DO Work Phone: [facility] 03-05-2025 13:41-0400 Respiratory rate 20 /min Conner Vaschak DO Work Phone: [facility] 03-05-2025 13:41-0400 SaO2% (BldA) [Mass fraction] 100 % Conner Vaschak DO Work Phone: [facility] 03-05-2025 13:41-0400 Systolic blood pressure 147 mm[Hg] Conner Vaschak DO Work Phone: [facility] 02-19-2025 13:18-0400 Body temperature 97.7 [degF] Conner Vaschak DO Work Phone: [facility] 02-19-2025 13:18-0400 Body weight 51.7 kg Conner Vaschak DO Work Phone: [facility] 02-19-2025 13:18-0400 Diastolic blood pressure 80 mm[Hg] Conner Vaschak DO Work Phone: [facility] 02-19-2025 13:18-0400 Heart rate 71 /min Conner Vaschak DO Work Phone: [facility] 02-19-2025 13:18-0400 Respiratory rate 18 /min Conner Vaschak DO Work Phone: [facility] 02-19-2025 13:18-0400 SaO2% (BldA) [Mass fraction] 98 % Conner Vaschak DO Work Phone: [facility] 02-19-2025 13:18-0400 Systolic blood pressure 146 mm[Hg] Conner Vaschak DO Work Phone: [facility] 02-17-2025 04:30-0400 Diastolic blood pressure 72 mm[Hg] Conner Vaschak DO Work Phone: [facility] 02-17-2025 04:30-0400 Heart rate 70 /min Conner Vaschak DO Work Phone: [facility] 02-17-2025 04:30-0400 Respiratory rate 18 /min Conner Jacintachak DO Work Phone: [facility] 02-17-2025 04:30-0400 SaO2% (BldA) [Mass fraction] 98 % Conner Jacintachak DO Work Phone: [facility] 02-17-2025 04:30-0400 Systolic blood pressure 137 mm[Hg] Conner Vaschak DO Work Phone: [facility] 02-17-2025 02:24-0400 Body height 167.64 cm Conner Jacintachak DO Work Phone: [facility] 02-17-2025 02:24-0400 Body temperature 98.6 [degF] Conner Vaschak DO Work Phone: [facility] 02-17-2025 02:24-0400 Body weight 53 kg Conner Vaschak DO Work Phone: [facility] 02-13-2025 11:30-0400 Diastolic blood pressure 71 mm[Hg] Conner Vaschak DO Work Phone: [facility] 02-13-2025 11:30-0400 Heart rate 75 /min Conner Vaschak DO Work Phone: [facility] 02-13-2025 11:30-0400 Respiratory rate 18 /min Conner Vaschak DO Work Phone: [facility] 02-13-2025 11:30-0400 SaO2% (BldA) [Mass fraction] 97 % Conner Vaschak DO Work Phone: [facility] 02-13-2025 11:30-0400 Systolic blood pressure 108 mm[Hg] Conner Vaschak DO Work Phone: [facility] 02-13-2025 08:45-0400 Body temperature 98 [degF] Conner Vaschak DO Work Phone: [facility] 02-13-2025 08:45-0400 Body weight 54.38 kg Conner Vaschak DO Work Phone: [facility] 02-09-2025 11:16-0400 Body temperature 97.5 [degF] Conner Vaschak DO Work Phone: [facility] 02-09-2025 11:16-0400 Body weight 51.7 kg Conner Jacintachak DO Work Phone: [facility] 02-09-2025 11:16-0400 Diastolic blood pressure 73 mm[Hg] Conner Vaschak DO Work Phone: [facility] 02-09-2025 11:16-0400 Heart rate 74 /min Conner Vaschak DO Work Phone: [facility] 02-09-2025 11:16-0400 Respiratory rate 18 /min Conner Jacintachak DO Work Phone: [facility] 02-09-2025 11:16-0400 SaO2% (BldA) [Mass fraction] 98 % Conner Vaschak DO Work Phone: [facility] 02-09-2025 11:16-0400 Systolic blood pressure 122 mm[Hg] Conner Stanley DO Work Phone: [facility] 02-02-2025 08:45-0400 Body height 167.64 cm Conner Stanley DO Work Phone: [facility] 02-02-2025 08:45-0400 Body mass index (BMI) [Ratio] 18.3 kg/m2 Conner Millerk DO Work Phone: [facility] 02-02-2025 08:45-0400 Body temperature 97.5 [degF] Conner Stanley DO Work Phone: [facility] 02-02-2025 08:45-0400 Body weight 51.7 kg Conner Stanley DO Work Phone: [facility] 02-02-2025 08:45-0400 Diastolic blood pressure 73 mm[Hg] Conner Millerk DO Work Phone: [facility] 02-02-2025 08:45-0400 Heart rate 86 /min Conner Millerk DO Work Phone: [facility] 02-02-2025 08:45-0400 Respiratory rate 18 /min Conner Stanley DO Work Phone: [facility] 02-02-2025 08:45-0400 SaO2% (BldA) [Mass fraction] 99 % Conner Stanley DO Work Phone: [facility] 02-02-2025 08:45-0400 Systolic blood pressure 120 mm[Hg] Conner Millerk DO Work Phone: [facility] 01-23-2025 09:28-0400 Body height 167.64 cm Conner Stanley DO Work Phone: [facility] 01-23-2025 09:28-0400 Body mass index (BMI) [Ratio] 18.6 kg/m2 Conner Millerk DO Work Phone: [facility] 01-23-2025 09:28-0400 Body temperature 97.8 [degF] Conner Vaschak DO Work Phone: [facility] 01-23-2025 09:28-0400 Body weight 52.16 kg Conner Vaschak DO Work Phone: [facility] 01-23-2025 09:28-0400 Diastolic blood pressure 78 mm[Hg] Conner Vaschak DO Work Phone: [facility] 01-23-2025 09:28-0400 Heart rate 78 /min Conner Vaschak DO Work Phone: [facility] 01-23-2025 09:28-0400 Respiratory rate 16 /min Conenr Vaschak DO Work Phone: [facility] 01-23-2025 09:28-0400 SaO2% (BldA) [Mass fraction] 98 % Conner Vaschak DO Work Phone: [facility] 01-23-2025 09:28-0400 Systolic blood pressure 151 mm[Hg] Conner Vaschak DO Work Phone: [facility] 01-18-2025 10:04-0400 Diastolic blood pressure 68 mm[Hg] Conner Vaschak DO Work Phone: [facility] 01-18-2025 10:04-0400 Heart rate 73 /min Conner Vaschak DO Work Phone: [facility] 01-18-2025 10:04-0400 Respiratory rate 16 /min Conner Vaschak DO Work Phone: [facility] 01-18-2025 10:04-0400 SaO2% (BldA) [Mass fraction] 99 % Conner Vaschak DO Work Phone: [facility] 01-18-2025 10:04-0400 Systolic blood pressure 112 mm[Hg] Conner Vaschak DO Work Phone: [facility] 01-18-2025 08:45-0400 Body height 167.64 cm Conner Vaschak DO Work Phone: [facility] 01-18-2025 08:45-0400 Body weight 50.8 kg Conner Vaschak DO Work Phone: [facility] 01-10-2025 11:33-0400 Diastolic blood pressure 70 mm[Hg] Conner Vaschak DO Work Phone: [facility] 01-10-2025 11:33-0400 Heart rate 70 /min Conner Vaschak DO Work Phone: [facility] 01-10-2025 11:33-0400 Respiratory rate 16 /min Conner Vaschak DO Work Phone: [facility] 01-10-2025 11:33-0400 SaO2% (BldA) [Mass fraction] 98 % Conner Vaschak DO Work Phone: [facility] 01-10-2025 11:33-0400 Systolic blood pressure 110 mm[Hg] Conner Vaschak DO Work Phone: [facility] 01-10-2025 10:22-0400 Body height 167.64 cm Conner Jacintachak DO Work Phone: [facility] 01-10-2025 10:22-0400 Body weight 50.8 kg Conner Vaschak DO Work Phone: [facility] 01-09-2025 10:02-0400 Body mass index (BMI) [Ratio] 18.69 kg/m2 Benedicto Edyta DO Work Phone: [facility] 01-09-2025 10:02-0400 Body weight 52.53 kg Benedicto Edyta DO Work Phone: [facility] 01-09-2025 10:02-0400 Diastolic blood pressure 70 mm[Hg] Benedicto Edyta DO Work Phone: [facility] 01-09-2025 10:02-0400 Systolic blood pressure 110 mm[Hg] Benedicto Lan DO Work Phone: [facility] 01-04-2025 07:59-0400 Body height 167.64 cm Conner Stanley DO Work Phone: [facility] 01-04-2025 07:59-0400 Body mass index (BMI) [Ratio] 18.7 kg/m2 Conner Stanley DO Work Phone: [facility] 01-04-2025 07:59-0400 Body weight 52.61 kg Conner Stanley DO Work Phone: [facility] 12-13-2024 10:29-0400 Body height 167.6 cm Vonnie Warchol [employer] Work Phone: [facility] 12-13-2024 10:29-0400 Body mass index (BMI) [Ratio] 18.08 kg/m2 Vonnie Warchol [employer] H[employer]ER Work Phone: [facility] 12-13-2024 10:29-0400 Body weight 50.8 kg Vonnie Warchol WO[employer] H[employer]ER Work Phone: [facility] 12-13-2024 10:29-0400 Diastolic blood pressure 60 mm[Hg] Vonnie Warchol WO[employer] H[employer]ER Work Phone: [facility] 12-13-2024 10:29-0400 Heart rate 64 /min Vonnie Warchol WO[employer] H[employer]ER Work Phone: [facility] 12-13-2024 10:29-0400 SaO2% (BldA) [Mass fraction] 99 % Vonnie Warchol WO[employer] H[employer]ER Work Phone: [facility] 12-13-2024 10:29-0400 Systolic blood pressure 116 mm[Hg] Vonnie Warchol WO[employer] H[employer]ER Work Phone: [facility] 11-23-2024 13:43-0500 Diastolic blood pressure 76 mm[Hg] Conner Stanley DO Work Phone: [facility] 11-23-2024 13:43-0500 Heart rate 65 /min Conner Millerk DO Work Phone: [facility] 11-23-2024 13:43-0500 Respiratory rate 18 /min Conner Stanley DO Work Phone: [facility] 11-23-2024 13:43-0500 SaO2% (BldA) [Mass fraction] 99 % Conner Stanley DO Work Phone: [facility] 11-23-2024 13:43-0500 Systolic blood pressure 118 mm[Hg] Conner Stanley DO Work Phone: [facility] 11-20-2024 09:20-0500 Body mass index (BMI) [Ratio] 18.93 kg/m2 Tamera Evans MD Work Phone: [facility] 11-20-2024 09:20-0500 Body weight 53.2 kg Tamera Evans MD Work Phone: [facility] 11-20-2024 09:20-0500 Diastolic blood pressure 68 mm[Hg] Tamera Evans MD Work Phone: [facility] 11-20-2024 09:20-0500 Heart rate 62 /min Tamera Evans MD Work Phone: [facility] 11-20-2024 09:20-0500 SaO2% (BldA) [Mass fraction] 100 % Tamera Evans MD Work Phone: [facility] 11-20-2024 09:20-0500 Systolic blood pressure 130 mm[Hg] Tamera Evans MD Work Phone: [facility] 11-14-2024 11:17-0500 Body height 167.64 cm Conner Stanley DO Work Phone: [facility] 11-14-2024 11:17-0500 Body weight 51.7 kg Conner Stanley DO Work Phone: [facility] 09-29-2024 10:01-0500 Diastolic blood pressure 70 mm[Hg] Conner Stanley DO Work Phone: [facility] 09-29-2024 10:01-0500 Heart rate 73 /min Conner Stanley DO Work Phone: [facility] 09-29-2024 10:01-0500 SaO2% (BldA) [Mass fraction] 98 % Conner Stanley DO Work Phone: [facility] 09-29-2024 10:01-0500 Systolic blood pressure 110 mm[Hg] Conner Stanley DO Work Phone: [facility] 09-19-2024 10:45-0500 Body mass index (BMI) [Ratio] 18.4 kg/m2 Piligarett Evans WOOD HACKER Work Phone: [facility] 09-19-2024 10:45-0500 Body weight 51.71 kg Pili Nathan WOOD HACKER Work Phone: [facility] 09-19-2024 10:45-0500 Diastolic blood pressure 70 mm[Hg] Pili Nathan WOOD HACKER Work Phone: [facility] 09-19-2024 10:45-0500 Heart rate 70 /min Pili Nathan WOOD HACKER Work Phone: [facility] 09-19-2024 10:45-0500 SaO2% (BldA) [Mass fraction] 96 % Pili Nathan WOOD HACKER Work Phone: [facility] 09-19-2024 10:45-0500 Systolic blood pressure 110 mm[Hg] Pili Evans WOOD HACKER Work Phone: [facility] 07-24-2024 15:38-0500 Body height 167.6 cm Benedicto Edyta DO Work Phone: [facility] 07-24-2024 15:38-0500 Body mass index (BMI) [Ratio] 18.4 kg/m2 Benedicto Edyta DO Work Phone: [facility] 07-24-2024 15:38-0500 Body weight 51.71 kg Benedicto Edyta DO Work Phone: [facility] 07-24-2024 15:38-0500 Diastolic blood pressure 72 mm[Hg] Benedicto Edyta DO Work Phone: [facility] 07-24-2024 15:38-0500 Systolic blood pressure 130 mm[Hg] Benedicto Edyta DO Work Phone: [facility] 04-08-2024 04:01-0400 Diastolic blood pressure 58 mm[Hg] DO Conner Vaschak Work Phone: [facility] 04-08-2024 04:01-0400 Heart rate 73 /min DO Conner Vaschak Work Phone: [facility] 04-08-2024 04:01-0400 Respiratory rate 18 /min DO Conner Vaschak Work Phone: [facility] 04-08-2024 04:01-0400 SaO2% (BldA) [Mass fraction] 99 % DO Conner Vaschak Work Phone: [facility] 04-08-2024 04:01-0400 Systolic blood pressure 114 mm[Hg] DO Conner Vaschak Work Phone: [facility] 04-07-2024 22:52-0400 Body temperature 97.8 [degF] DO Conner Vaschak Work Phone: [facility] 04-07-2024 21:25-0400 Body height 167.64 cm DO Conner Vaschak Work Phone: [facility] 04-07-2024 21:25-0400 Body weight 56.2 kg DO Conner Vaschak Work Phone: [facility] 04-04-2024 16:51-0400 Body height 167.64 cm DO Conner Vaschak Work Phone: [facility] 04-04-2024 16:51-0400 Body temperature 97.6 [degF] DO Conner Vaschak Work Phone: [facility] 04-04-2024 16:51-0400 Body weight 56.5 kg DO Conner Vaschak Work Phone: [facility] 04-04-2024 16:51-0400 Diastolic blood pressure 69 mm[Hg] DO Conner Vaschak Work Phone: [facility] 04-04-2024 16:51-0400 Heart rate 101 /min DO Conner Vaschak Work Phone: [facility] 04-04-2024 16:51-0400 Respiratory rate 20 /min DO Conner Vaschak Work Phone: [facility] 04-04-2024 16:51-0400 SaO2% (BldA) [Mass fraction] 100 % DO Conner Vaschak Work Phone: [facility] 04-04-2024 16:51-0400 Systolic blood pressure 120 mm[Hg] DO Conner Vaschak Work Phone: [facility] 03-25-2024 13:12-0400 Body height 167.64 cm DO Conner Vaschak Work Phone: [facility] 03-25-2024 13:12-0400 Body temperature 97.4 [degF] DO Conner Vaschak Work Phone: [facility] 03-25-2024 13:12-0400 Body weight 52.75 kg DO Conner Vaschak Work Phone: [facility] 03-25-2024 13:12-0400 Diastolic blood pressure 83 mm[Hg] DO Conner Vaschak Work Phone: [facility] 03-25-2024 13:12-0400 Heart rate 100 /min DO Conner Vaschak Work Phone: [facility] 03-25-2024 13:12-0400 Respiratory rate 20 /min DO Conner Vaschak Work Phone: [facility] 03-25-2024 13:12-0400 SaO2% (BldA) [Mass fraction] 98 % DO Conner Jaden Work Phone: [facility] 03-25-2024 13:12-0400 Systolic blood pressure 167 mm[Hg] DO Conner Vaschak Work Phone: [facility] 09-30-2022 11:16-0500 Diastolic blood pressure 70 mm[Hg] DO Conner Angelak Work Phone: [facility] 09-30-2022 11:16-0500 Heart rate 60 /min DO Conner Angelak Work Phone: [facility] 09-30-2022 11:16-0500 Respiratory rate 20 /min DO Conner Jaden Work Phone: [facility] 09-30-2022 11:16-0500 SaO2% (BldA) [Mass fraction] 98 % DO Conner Jaden Work Phone: [facility] 09-30-2022 11:16-0500 Systolic blood pressure 117 mm[Hg] DO Conner Jaden Work Phone: [facility] 10-29-2021 13:03-0500 Body temperature 98 [degF] DO Conner Stanley Work Phone: [facility] Encounters Encounter Date Encounter Type Care Provider Facility Start: 06-28-2025 ambulatory Carlin Joshi ty:CD:[id number] Start: 06-20-2025 ambulatory Conner Stanley Facility :[facility] Start: 06-18-2025 Registered Recurring Clarence Vines II [email or web address] Acute Work Phone: Start: 06-18-2025 End: 06-18-2025 ambulatory Conner Stanley DO Work Phone: [facility] Work Phone: Start: 06-18-2025 End: 06-18-2025 Patient encounter procedure Clarence Vines II [facility] [[email or web address] Ambulatory Work Phone: Start: 06-18-2025 End: 06-18-2025 Clinisync Result Encounter Generic External Data Provider [facility] External Department Unsolicited Start: 06-18-2025 End: 06-19-2025 Clinisync Result Encounter Generic External Data Provider [facility] External Department Unsolicited Start: 06-18-2025 End: 06-19-2025 External Result Encounter Clarence Vines DO Work Phone: [facility] External Department Unsolicited Start: 06-04-2025 End: 06-05-2025 ambulatory Carlin SOLIS Facility:[facility] Comment on above: Phototherapy Sr Start: 06-04-2025 End: 06-04-2025 Patient encounter procedure Carlin SOLIS [facility] Start: 06-01-2025 End: 06-04-2025 ambulatory Ebonie De Souza MD Work Phone: Dermatology Comment on above: Rash Start: 05-29-2025 End: 05-29-2025 Patient encounter procedure Juan Whalen MD Work Phone: Gynecology Oncology Start: 05-29-2025 End: 05-30-2025 ambulatory Juan Whalen MD Work Phone: Gynecology Oncology Comment on above: 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); BRCA1 gene mutation positive; Post-operative state Start: 05-28-2025 End: 05-28-2025 External Result Encounter Clarence Vines DO Work Phone: [facility] External Department Unsolicited Start: 05-28-2025 End: 05-28-2025 External Result Encounter Clarence Vines DO Work Phone: [facility] External Department Unsolicited Start: 05-28-2025 End: 05-28-2025 ambulatory Conner Stanley DO Work Phone: [facility] Work Phone: Start: 05-28-2025 End: 05-28-2025 Patient encounter procedure Clarence Barker Jonofabiola SHALONDA [facility] [[email or web address] Ambulatory Work Phone: Start: 05-14-2025 End: 05-14-2025 Telemedicine consultation with patient Aliyah Ritchie APRN.HARNESS INSPECTOR Work Phone: Gynecology Oncology Start: 05-14-2025 End: 05-14-2025 ambulatory Aliyah Ritchie BARREL RIFLER BROACH.HARNESS INSPECTOR Work Phone: Gynecology Oncology Comment on above: 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); Post-operative state Start: 05-09-2025 End: 05-18-2025 Clinisync Result Encounter Generic External Data Provider [facility] External Department Unsolicited Start: 05-09-2025 End: 05-18-2025 Clinisync Result Encounter Generic External Data Provider [facility] External Department Unsolicited Start: 05-09-2025 End: 05-09-2025 ambulatory [facility] Facility:[facility] Start: 05-07-2025 End: 05-07-2025 Nursing evaluation of patient and report Chemical Analyst Onc Nurse Ca 4 Work Phone: Gynecology Oncology Comment on above: Educational circumst ances (Primary Dx) Start: 05-07-2025 End: 05-07-2025 ambulatory [facility] Facility:[facility] Start: 05-04-2025 End: 05-07-2025 Telephone encounter Juan Whalen MD Work Phone: Gynecology Oncology Comment on above: Received External Re cords Start: 05-04-2025 ambulatory Carlin SOLIS Facility :[facility] Start: 05-01-2025 End: 05-01-2025 Admission to establishment [place] [facility] Work Phone: Pre Anesthesia Start: 05-01-2025 End: 05-01-2025 Anesthesia consultation Pac 3 Work Phone: Pre Anesthesia Comment on above: PONV (postoperative nausea and vomiting) (Primary Dx); Anemia, unspecified type; Malignant neoplasm of ovary, unspecified laterality (HCC) Start: 05-01-2025 End: 05-01-2025 Telephone encounter Maddison Estes RN Gynecology Oncology Start: 05-01-2025 End: 05-01-2025 ambulatory JUAN WHALEN Facility:[facility] Start: 04-27-2025 End: 04-27-2025 ambulatory JUAN WHALEN Facility:[facility] Start: 04-27-2025 End: 04-27-2025 Subsequent hospital visit by physician Xr Chest Main A21 Radiology Comment on above: 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] Start: 04-27-2025 End: 04-28-2025 Patient encounter procedure Juan Whalen MD Work Phone: Gynecology Oncology Start: 04-27-2025 End: 05-01-2025 ambulatory Juan Whalen MD Work Phone: Gynecology Oncology Comment on above: Carcinomatosis perit onei (HCC) (Primary Dx); Malignant neoplasm of bilateral ovaries (HCC) Med Change Request Start: 04-27-2025 End: 04-30-2025 Clinisync Result Encounter Generic External Data Provider [facility] External Department Unsolicited Start: 04-27-2025 End: 04-30-2025 Clinisync Result Encounter Generic External Data Provider [facility] External Department Unsolicited Start: 04-20-2025 Registered Recurring Clarence Vines II [facility] [[email or web address] Acute Work Phone: Start: 04-20-2025 End: 04-20-2025 ambulatory Conner Stanley DO Work Phone: [facility] Work Phone: Start: 04-20-2025 End: 04-20-2025 Patient encounter procedure Clarence Vines II [facility] [[email or web address] Ambulatory Work Phone: Start: 04-18-2025 End: 04-20-2025 External Result Encounter Clarence Vines DO Work Phone: [facility] External Department Unsolicited Start: 04-18-2025 End: 04-20-2025 External Result Encounter Clarence Vines DO Work Phone: [facility] External Department Unsolicited Start: 04-17-2025 End: 04-17-2025 Nursing evaluation of patient and report Nurse Derm [facility] Rej Work Phone: Dermatology Comment on above: Eczema, unspecified type (Primary Dx) Start: 04-17-2025 End: 04-17-20[facility] Start: 04-06-2025 End: 04-06-2025 Nursing evaluation of patient and report Nurse Derm [facility] Rej Work Phone: Dermatology Comment on above: Eczema, unspecified type (Primary Dx) Start: 04-06-2025 End: 04-06-2025 ambulatory [facility] Facility:[facility] Start: 03-30-2025 Registered Recurring Clarence Vines [facility] Acute Work Phone: Start: 03-30-2025 End: 03-30-2025 ambulatory [facility] DO Work Phone: [facility] Work Phone: Start: 03-30-2025 End: 03-30-2025 Patient encounter procedure Clarence Vines [facility] Ambulatory Work Phone: Start: 03-29-2025 End: 03-31-2025 External Result Encounter Clarence Vines DO Work Phone: [facility] External Department Unsolicited Start: 03-29-2025 End: 03-31-2025 External Result Encounter Clarence Vines DO Work Phone: [facility] External Department Unsolicited Start: 03-27-2025 End: 03-27-2025 Nursing evaluation of patient and report Nurse Derm [facility] Rej Work Phone: Dermatology Comment on above: Eczema, unspecified type (Primary Dx) Start: 03-27-2025 End: 03-27-2025 ambulatory [facility] Facility:[facility] Start: 03-20-2025 End: 03-20-2025 Nursing evaluation of patient and report Nurse Derm [facility] Rej Work Phone: Dermatology Comment on above: Eczema, unspecified type (Primary Dx) Start: 03-20-2025 End: 03-20-2025 ambulatory [facility] Facility:[facility] Start: 03-16-2025 End: 03-16-2025 Nursing evaluation of patient and report Nurse Derm [facility] Rej Work Phone: Dermatology Comment on above: Eczema, unspecified type (Primary Dx) Start: 03-16-2025 End: 03-16-2025 ambulatory [facility] Facility:[facility] Start: 03-13-2025 End: 03-13-2025 Nursing evaluation of patient and report Nurse Derm [facility] Rej Work Phone: Dermatology Comment on above: Eczema, unspecified type (Primary Dx) Start: 03-13-2025 End: 03-13-2025 ambulatory [facility] Facility:[facility] Start: 03-05-2025 End: 03-07-2025 External Result Encounter Clarence Vines DO Work Phone: [facility] External Department Unsolicited Start: 03-05-2025 End: 03-07-2025 External Result Encounter Clarence Vines DO Work Phone: [facility] External Department Unsolicited Start: 03-05-2025 End: 03-05-2025 Patient encounter procedure Clarence Vines II [facility] [[email or web address] Ambulatory Work Phone: Start: 02-19-2025 Registered Recurring [facility]ner [facility] Work [facility]: Start: 02-19-2025 End: 02-19-2025 ambulatory Conner Workmangenaro DO Work Phone: [facility] Work Phone: Start: 02-19-2025 End: 02-19-2025 Patient encounter procedure [facility]ner Stanley [facility] Work Phone: Start: 02-17-2025 End: 02-17-2025 Emergency department patient visit Conner Stanley DO Work Phone: [facility]-Emergency Room Work Phone: Start: 02-16-2025 Registered Recurring Conner ga DO Work Phone: [facility]Can[facility] Acute Work Phone: Start: 02-16-2025 End: 02-16-2025 External Result Encounter Clarence Vines DO Work Phone: [facility] External Department Unsolicited Start: 02-16-2025 End: 02-16-2025 External Result Encounter Clarence Vines DO Work Phone: [facility] External Department Unsolicited Start: 02-13-2025 End: 02-13-2025 Telephone encounter Juan Whalen MD Work Phone: Gynecology Oncology Comment on above: Received external re cords Start: 02-09-2025 End: 02-09-2025 ambulatory CONNER STANLEY Facility:[facility] Start: 02-09-2025 End: 02-09-2025 ambulatory Conner Stanley DO Work Phone: [facility] Work Phone: Start: 02-09-2025 End: 02-09-2025 Patient encounter procedure Conner Stanley DO Work Phone: [facility] Ambulatory Work Phone: Start: 02-06-2025 End: 02-06-2025 ambulatory CONNER STANLEY Facility:[facility] Start: 02-06-2025 End: 02-06-2025 ambulatory JUAN WHALEN Facility:[facility] Start: 02-02-2025 End: 02-02-2025 Telephone encounter Juan Whalen MD Work Phone: Gynecology Oncology Comment on above: Received External Re cords Start: 02-02-2025 End: 02-02-2025 Patient encounter procedure Conner Stanley DO Work Phone: [facility] Ambulatory Work Phone: Start: 02-01-2025 End: 02-02-2025 Clinisync Result Encounter Generic External Data Provider [facility] External Department Unsolicited Start: 02-01-2025 End: 02-02-2025 Clinisync Result Encounter Generic External Data Provider [facility] External Department Unsolicited Start: 02-01-2025 End: 02-01-2025 Telephone encounter Juan Whalen MD Work Phone: Gynecology Oncology Comment on above: Patient Navigation ( Requested 01/29/25 Pet scan from [facility] & 01/24/25 US PELVIS from [facility], Pathology was previously sent to [facility].) Start: 02-01-2025 End: 02-01-2025 ambulatory [facility] Facility:[facility] Start: 01-30-2025 End: 01-30-2025 Nursing evaluation of patient and report Nurse Derm [facility] Rej Work Phone: Dermatology Comment on above: Eczema, unspecified type (Primary Dx) Start: 01-30-2025 End: 01-30-2025 ambulatory [facility] Facility:[facility] Start: 01-29-2025 End: 01-29-2025 ambulatory Juan Whalen MD Work Phone: Gynecology Oncology Comment on above: Lab Work - Dr. Whalen Start: 01-29-2025 End: 01-29-2025 E-mail encounter from caregiver Juan Whalen MD Work Phone: Gynecology Oncology Start: 01-29-2025 End: 01-30-2025 External Result Encounter Clarence Vines DO Work Phone: [facility] External Department Unsolicited Start: 01-29-2025 End: 01-30-2025 External Result Encounter Clarence Vines DO Work Phone: [facility] External Department Unsolicited Start: 01-26-2025 End: 01-26-2025 Nursing evaluation of patient and report Nurse Derm [facility] Rej Work Phone: Dermatology Comment on above: Eczema, unspecified type (Primary Dx) Start: 01-26-2025 End: 01-26-2025 ambulatory CONNER STANLEY Facility:[facility] Start: 01-24-2025 End: 01-24-2025 Telephone encounter Jono Blackwell MD Work [facility] A [facility] Comment on above: Appointment Start: 01-24-2025 End: 01-24-2025 ambulatory BENEDICTO AMORO Not Available Start: 01-23-2025 End: 01-23-2025 Nursing evaluation of patient and report Nurse Derm [facility] Rej Work Phone: Dermatology Comment on above: Eczema, unspecified type (Primary Dx) Start: 01-23-2025 End: 01-23-2025 ambulatory CONNER STANLEY Facility:[facility] Start: 01-23-2025 Registered Recurring Conner ga DO [facility] Work Phone: Start: 01-23-2025 End: 01-23-2025 ambulatory Conner Stanley DO Work Phone: [facility] Work Phone: Start: 01-23-2025 End: 01-23-2025 Patient encounter procedure Conner Stanley DO [facility] Work Phone: Start: 01-19-2025 End: 01-19-2025 Nursing evaluation of patient and report Nurse Derm [facility] Rej Work Phone: Dermatology Comment on above: Eczema, unspecified type (Primary Dx) Start: 01-19-2025 End: 01-22-2025 ambulatory CONNER STANLEY Facility:[facility] Start: 01-18-2025 End: 01-18-2025 External Result Encounter Benedicto Edyta DO Work Phone: [facility] External Department Unsolicited Start: 01-18-2025 End: 01-18-2025 External Result Encounter Benedicto Edyta DO Work Phone: [facility] External Department Unsolicited Start: 01-18-2025 End: 01-18-2025 Admission to same day surgery center Conner Stanley DO Work Phone: [facility]-Ultrasound Main [place] Work Phone: Start: 01-18-2025 End: 01-18-2025 ambulatory Conner Angelak DO Work Phone: [facility] Work Phone: Start: 01-17-2025 End: 01-17-2025 Patient encounter procedure Conner Angelak DO Work Phone: [facility]-Ultrasound Cntr for Breast Car Start: 01-17-2025 End: 01-17-2025 ambulatory Conner Agnelak DO Work Phone: [facility] Work Phone: Start: 01-16-2025 End: 01-16-2025 Nursing evaluation of patient and report Nurse Derm [facility] Rej Work Phone: Dermatology Comment on above: Eczema, unspecified type (Primary Dx) Start: 01-16-2025 End: 01-16-2025 ambulatory CONNER TORIBIO WORKMANRAISACruz Facility:[facility] Start: 01-15-2025 End: 01-15-2025 Patient encounter procedure Conner Millerk DO Work Phone: [facility]-CT Scan Main [place] Work Phone: Start: 01-15-2025 End: 01-15-2025 ambulatory Conner Stanley DO Work Phone: [facility] Work Phone: Start: 01-12-2025 End: 01-12-2025 ambulatory CONNER TORIBIO ANGELACruz Facility:[facility] Start: 01-10-2025 Non-patient / Non-visit Conner Millerk DO Work Phone: [facility] Gastro Work Phone: Start: 01-10-2025 Non-patient / Non-visit Conner Angelak DO Work Phone: [facility] Gastro Work Phone: Start: 01-10-2025 End: 01-10-2025 Admission to same day surgery center Conner Stanley DO Work Phone: [facility]-Digestive Health Work Phone: Start: 01-10-2025 End: 01-10-2025 ambulatory Conner Stanley DO Work Phone: [facility] Work Phone: Start: 01-09-2025 End: 01-09-2025 Nursing evaluation of patient and report Nurse Derm [facility] Rej Work Phone: Dermatology Comment on above: Eczema, unspecified type (Primary Dx) Start: 01-09-2025 End: 01-09-2025 ambulatory [facility] Facility:[facility] Start: 01-09-2025 End: 01-09-2025 Bamboo flowsheet Benedicto Edyta DO Work Phone: [facility] Start: 01-09-2025 End: 01-09-2025 Bamboo flowsheet Benedicto Edyta DO Work Phone: [facility] Start: 01-09-2025 End: 01-09-2025 Office outpatient visit 15 minutes Benedicto Edyta DO Work Phone: [facility] Comment on above: Swelling of thigh; Leiomyoma; Lump of axilla, right Start: 01-09-2025 End: 01-09-2025 ambulatory BENEDICTO EDYTA Not Available Start: 01-05-2025 End: 01-05-2025 Nursing evaluation of patient and report Nurse Derm [facility] Rej Work Phone: Dermatology Comment on above: Eczema, unspecified type (Primary Dx) Start: 01-05-2025 End: 01-05-2025 [facility] Start: 01-04-2025 End: 01-04-2025 Patient encounter procedure Conner Stanley DO Work Phone: [facility] Work Phone: Start: 01-02-2025 End: 01-02-2025 ambulatory [facility] Facility:[facility] Start: 01-02-2025 End: 01-02-2025 Nursing evaluation of patient and report Nurse Derm [facility] Rej Work Phone: Dermatology Comment on above: Eczema, unspecified type (Primary Dx) Start: 12-29-2024 End: 12-29-2024 ambulatory [facility] Facility:[facility] Start: 12-29-2024 End: 12-29-2024 Nursing evaluation of patient and report Nurse Derm [facility] Rej Work Phone: Dermatology Comment on above: Eczema, unspecified type (Primary Dx) Start: 12-29-2024 End: 01-18-2025 Telephone encounter Ebonie De Souza MD Work Phone: Dermatology Comment on above: Forms Start: 12-26-2024 End: 12-26-2024 [facility] Facility:[facility] Start: 12-26-2024 End: 12-26-2024 Nursing evaluation of patient and report Nurse Derm [facility] Rej Work Phone: Dermatology Comment on above: Eczema, unspecified type (Primary Dx) Start: 12-20-2024 End: 12-20-2024 [facility] Facility:[facility] Start: 12-20-2024 End: 12-20-2024 Nursing evaluation of patient and report Nurse Derm [facility] Rej Work Phone: Dermatology Comment on above: Eczema, unspecified type (Primary Dx) Start: 12-18-2024 End: 12-18-2024 [facility] Facility:[facility] Start: 12-18-2024 End: 12-18-2024 Nursing evaluation of patient and report Nurse Derm [facility] Rej Work Phone: Dermatology Comment on above: Eczema, unspecified type (Primary Dx) Start: 12-15-2024 End: 12-15-2024 [facility] Facility:[facility] Start: 12-15-2024 End: 12-15-2024 Nursing evaluation of patient and report Nurse Derm [facility] Rej Work Phone: Dermatology Comment on above: Eczema, unspecified type (Primary Dx) Start: 12-13-2024 End: 12-13-2024 Nursing evaluation of patient and report Nurse Derm [facility] Rej Work Phone: Dermatology Comment on above: Eczema, unspecified type (Primary Dx) Start: 12-13-2024 End: 12-13-2024 Office outpatient visit 25 minutes Vonnie Aguirre WOOD HACKER Work Phone: [facility] Comment on above: Medicare annual well ness visit, subsequent (Primary Dx); Chronic eczema; Colon cancer screening; Family history of pancreatic cancer; Weight loss, unintentional; Generalized postprandial abdominal pain; Nausea; Screening mammogram for breast cancer Start: 12-13-2024 End: 12-13-2024 Patient encounter procedure Vonnie Aguirre WOOD HACKER Work Phone: [facility] Start: 12-13-2024 End: 12-13-2024 ambulatory VONNIE AGUIRRE Not Available Start: 12-11-2024 End: 12-11-2024 ambulatory [facility] Facility:[facility] Start: 12-11-2024 End: 12-11-2024 Nursing evaluation of patient and report Nurse Derm [facility] Rej Work Phone: Dermatology Comment on above: Eczema, unspecified type (Primary Dx) Start: 12-08-2024 End: 12-08-2024 ambulatory [facility] Facility:[facility] Start: 12-08-2024 End: 12-08-2024 Nursing evaluation of patient and report Nurse Derm [facility] Rej Work Phone: Dermatology Comment on above: Eczema, unspecified type (Primary Dx) Start: 12-06-2024 End: 12-06-2024 Nursing evaluation of patient and report Nurse Derm [facility] Rej Work Phone: Dermatology Comment on above: Eczema, unspecified type (Primary Dx) Start: 12-06-2024 End: 12-06-2024 ambulatory Tamera Evans MD Work Phone: Allergy and Immunology Comment on above: Next Step Start: 12-04-2024 End: 12-04-2024 ambulatory [facility] Facility:[facility] Start: 12-04-2024 End: 12-04-2024 Nursing evaluation of patient and report Nurse Derm [facility] Rej Work Phone: Dermatology Comment on above: Eczema, unspecified type (Primary Dx) Start: 12-01-2024 End: 12-01-2024 ambulatory [facility] Facility:[facility] Start: 12-01-2024 End: 12-01-2024 Nursing evaluation of patient and report Nurse Derm [facility] Rej Work Phone: Dermatology Comment on above: Eczema, unspecified type (Primary Dx) Start: 11-29-2024 End: 11-29-2024 ambulatory [facility] Facility:[facility] Start: 11-29-2024 End: 11-29-2024 Nursing evaluation of patient and report Nurse Derm [facility] Rej Work Phone: Dermatology Comment on above: Eczema, unspecified type (Primary Dx) Start: 11-27-2024 End: 11-27-2024 ambulatory [facility] Facility:[facility] Start: 11-27-2024 End: 11-27-2024 Nursing evaluation of patient and report Nurse Derm [facility] Rej Work Phone: Dermatology Comment on above: Spongiotic dermatiti s (Primary Dx) Start: 11-24-2024 End: 11-24-2024 [facility] Facility:[facility] Start: 11-24-2024 End: 11-24-2024 Nursing evaluation of patient and report Nurse Derm [facility] Rej Work Phone: Dermatology Comment on above: Spongiotic dermatiti s (Primary Dx) Start: 11-23-2024 Non-patient / Non-visit Conner Stanley DO Work Phone: [facility] Gastro Work Phone: Start: 11-23-2024 End: 11-23-2024 Admission to same day surgery center Conner Stanley DO Work Phone: [facility]Dig[facility] Work Phone: Start: 11-23-2024 End: 11-23-2024 ambulatory Conner Stanley DO Work Phone: [facility] Work Phone: Start: 11-22-2024 End: 11-22-2024 ambulatory [facility]ORIBIO [facility] Start: 11-22-2024 End: 11-22-2024 Nursing evaluation of patient and report Nurse Derm [facility] Rej Work Phone: Dermatology Comment on above: Spongiotic dermatiti s (Primary Dx) Start: 11-20-2024 End: 11-20-2024 Clinisync Result Encounter Generic External Data Provider [facility] External Department Unsolicited Start: 11-20-2024 End: 11-20-2024 Clinisync Result Encounter Generic External Data Provider [facility] External Department Unsolicited Start: 11-20-2024 End: 01-20-2025 Follow-up encounter Tamera Evans MD Work Phone: Allergy and Immunology Start: 11-20-2024 End: 11-20-2024 ambulatory [facility] Facility:[facility] Start: 11-20-2024 End: 11-20-2024 Nursing evaluation of patient and report Nurse Derm [facility] Rej Work Phone: Dermatology Comment on above: Spongiotic dermatiti s (Primary Dx) Start: 11-20-2024 End: 11-20-2024 ambulatory TAMERA EVANS Facility:[facility] Start: 11-20-2024 End: 11-20-2024 [facility] Start: 11-20-2024 End: 11-20-2024 Patient encounter procedure Tamera Evans MD Work Phone: Allergy and Immunology Comment on above: Adverse reaction to food, initial encounter (Primary Dx); Peripheral eosinophilia; Seasonal allergic rhinitis due to pollen Start: 11-17-2024 End: 11-17-2024 ambulatory [facility] Facility:[facility] Start: 11-17-2024 End: 11-17-2024 Nursing evaluation of patient and report Nurse Derm [facility] Work Phone: Dermatology Comment on above: Spongiotic dermatiti s (Primary Dx) Start: 11-17-2024 End: 11-17-2024 ambulatory JES LATHAM Facility:[facility] Start: 11-17-2024 End: 11-17-2024 Patient encounter procedure Jes Latham MD Work Phone: Dermatology Comment on above: Contact dermatitis d ue to preservative (Primary Dx); Allergic contact dermatitis due to rubber chemical; Rash and nonspecific skin eruption Start: 11-15-2024 End: 11-15-2024 ambulatory [facility] Facility:[facility] Start: 11-15-2024 End: 11-15-2024 Nursing evaluation of patient and report Nurse Derm [facility] Rej Work Phone: Dermatology Comment on above: Contact dermatitis a nd other eczema, due to unspecified cause (Primary Dx) Start: 11-13-2024 End: 11-13-2024 Patient encounter procedure Nurse Patch Test Work Phone: Dermatology Comment on above: Contact dermatitis a nd other eczema, due to unspecified cause (Primary Dx) Start: 11-13-2024 End: 11-13-2024 ambulatory [facility] Facility:[facility] Start: 11-09-2024 End: 11-09-2024 [facility] Facility:[facility] Start: 11-09-2024 End: 11-09-2024 Nursing evaluation of patient and report Nurse Derm [facility] Rej Work Phone: Dermatology Comment on above: Spongiotic dermatiti s (Primary Dx) Start: 11-07-2024 End: 11-07-2024 ambulatory [facility] Facility:[facility] Start: 11-07-2024 End: 11-07-2024 Nursing evaluation of patient and report Nurse Derm [facility] Rej Work Phone: Dermatology Comment on above: Spongiotic dermatiti s (Primary Dx) Start: 11-06-2024 End: 11-06-2024 ambulatory Conner Stanley DO Work Phone: [facility] Work Phone: Start: 11-06-2024 End: 11-06-2024 Patient encounter procedure Conner Stanley DO Work Phone: [facility] Work Phone: Start: 10-27-2024 End: 10-27-2024 ambulatory CONNER STANLEY Facility:[facility] Start: 10-27-2024 End: 10-27-2024 Nursing evaluation of patient and report Nurse Derm [facility] Work Phone: Dermatology Comment on above: Spongiotic dermatiti s (Primary Dx) Start: 10-25-2024 End: 10-[facility] Start: 10-25-2024 End: 10-25-2024 Nursing evaluation of patient and report Nurse Derm [facility] Work Phone: Dermatology Comment on above: Spongiotic dermatiti s (Primary Dx) Start: 10-23-2024 End: 10-23-2024 [facility] Start: 10-23-2024 End: 10-23-2024 Nursing evaluation of patient and report Nurse Derm [facility] Work Phone: Dermatology Comment on above: Spongiotic dermatiti s (Primary Dx) Start: 10-20-2024 End: 10-20-2024 [facility] Start: 10-20-2024 End: 10-20-2024 Nursing evaluation of patient and report Nurse Derm [facility] Work Phone: Dermatology Comment on above: Spongiotic dermatiti s (Primary Dx) Start: 10-18-2024 End: 10-19-2024 [facility] Start: 10-18-2024 End: 10-18-2024 Nursing evaluation of patient and report Nurse Derm [facility] Work Phone: Dermatology Comment on above: Spongiotic dermatiti s (Primary Dx) Start: 10-16-2024 End: 10-16-2024 ambulatory [facility] Facility:[facility] Start: 10-13-2024 End: 10-13-2024 ambulatory [facility] Facility:[facility] Start: 10-13-2024 End: 10-13-2024 Nursing evaluation of patient and report Nurse Derm [facility] Work Phone: Dermatology Comment on above: Spongiotic dermatiti s (Primary Dx) Start: 10-12-2024 End: 10-12-2024 Patient encounter procedure Lauren Rea RT(R) Radiology Comment on above: Primary osteoarthrit is of right hip (Primary Dx) Start: 10-12-2024 End: 10-12-2024 ambulatory Lauren Rea RT(R) Radiology Comment on above: Radiology XR Start: 10-12-2024 End: 10-12-2024 Subsequent hospital visit by physician Taj Ken 1 Work Phone: Radiology Comment on above: Primary osteoarthrit is of right hip [M16.11] Start: 10-11-2024 End: 10-11-2024 [facility] Facility:[facility] Start: 10-11-2024 End: 10-11-2024 Nursing evaluation of patient and report Nurse Derm [facility] Re[facility] Work Phone: Dermatology Comment on above: Spongiotic dermatiti s (Primary Dx) Start: 10-09-2024 End: 10-09-2024 [facility] Facility:[facility] Start: 10-09-2024 End: 10-09-2024 Nursing evaluation of patient and report Nurse Derm [facility] Re[facility] Work Phone: Dermatology Comment on above: Spongiotic dermatiti s (Primary Dx) Start: 10-06-2024 End: 10-06-2024 [facility] Facility:[facility] Start: 10-06-2024 End: 10-06-2024 Nursing evaluation of patient and report Nurse Derm [facility] Work Phone: Dermatology Comment on above: Spongiotic dermatiti s (Primary Dx) Start: 10-04-2024 End: 10-04-2024 [facility] Facility:[facility] Start: 10-04-2024 End: 10-04-2024 Nursing evaluation of patient and report Nurse Derm [facility] Work Phone: Dermatology Comment on above: Spongiotic dermatiti s (Primary Dx) Start: 10-02-2024 End: 10-02-[facility] Start: 10-02-2024 End: 10-02-2024 Nursing evaluation of patient and report Nurse Derm [facility] Rej Work Phone: Dermatology Comment on above: Spongiotic dermatiti s (Primary Dx) Start: 09-29-2024 End: 09-29-2024 Office outpatient visit 40 minutes Conner Barker Jaden DO Work Phone: [facility] Comment on above: Pain in joint of rig ht hip (Primary Dx); Primary osteoarthritis of right hip; History of steroid therapy; Other fatigue; Non-celiac gluten sensitivity; Chronic eczema; Age-related osteoporosis without current pathological fracture (CMS/HCC); Primary osteoarthritis involving multiple joints; Abnormal celiac antibody panel Start: 09-29-2024 End: 09-29-2024 ambulatory CONNER STANLEY Not Available Start: 09-27-2024 End: 09-27-2024 [facility] Start: 09-27-2024 End: 09-27-2024 Nursing evaluation of patient and report Nurse Derm [facility] Rej Work Phone: Dermatology Comment on above: Spongiotic dermatiti s (Primary Dx) Start: 09-26-2024 End: 09-27-2024 External Result Encounter Pili Evans WOOD HACKER Work Phone: [facility] External Department Unsolicited Start: 09-26-2024 End: 09-27-2024 External Result Encounter Pili Evans WOOD HACKER Work Phone: [facility] External Department Unsolicited Start: 09-26-2024 End: 09-26-2024 Patient encounter procedure Conner Workmanraisacruz DO Work Phone: [facility] Work Phone: Start: 09-26-2024 End: 09-26-2024 ambulatory Conner Stanley DO Work Phone: [facility] Work Phone: Start: 09-25-2024 End: 09-25-2024 ambulatory [facility] Facility[facility] Start: 09-25-2024 End: 09-25-2024 Nursing evaluation of patient and report Nurse Derm [facility] Re[facility] Work Phone: Dermatology Comment on above: Spongiotic dermatiti s (Primary Dx) Start: 09-19-2024 End: 09-19-2024 ambulatory CONNER STANLEY Not Available Start: 09-19-2024 End: 09-19-2024 Office outpatient visit 40 minutes Pili Evans NP Work Phone: [facility] Comment on above: Fatigue, unspecified type (Primary Dx); BMI < 18.5; Thrombocytosis; Non-celiac gluten sensitivity; Right lower quadrant pain; Spongiotic dermatitis Start: 09-18-2024 End: 09-18-2024 ambulatory [facility] Facility[facility] Start: 09-18-2024 End: 09-18-2024 Nursing evaluation of patient and report Nurse Derm [facility] Re[facility] Work Phone: Dermatology Comment on above: Spongiotic dermatiti s (Primary Dx) Start: 09-11-2024 End: 09-11-2024 [facility] Facility:[facility] Start: 09-11-2024 End: 09-11-2024 Nursing evaluation of patient and report Nurse Derm [facility] Re[facility] Work Phone: Dermatology Comment on above: Spongiotic dermatiti s (Primary Dx) Start: 09-08-2024 End: 09-08-2024 [facility] Facility:[facility] Start: 09-08-2024 End: 09-08-2024 Nursing evaluation of patient and report Nurse Derm [facility] Re[facility] Work Phone: Dermatology Comment on above: Spongiotic dermatiti s (Primary Dx) Start: 09-06-2024 End: 09-06-2024 ambulatory [facility] Facility:[facility] Start: 09-06-2024 End: 09-06-2024 Nursing evaluation of patient and report Nurse Derm [facility] Re[facility] Work Phone: Dermatology Comment on above: Spongiotic dermatiti s (Primary Dx) Start: 09-01-2024 End: 09-01-2024 [facility] Start: 09-01-2024 End: 09-01-2024 Nursing evaluation of patient and report Nurse Derm [facility] Re[facility] Work Phone: Dermatology Comment on above: Spongiotic dermatiti s (Primary Dx) Start: 08-30-2024 End: 08-30-2024 [facility] Start: 08-30-2024 End: 08-30-2024 Nursing evaluation of patient and report Nurse Derm [facility] Work Phone: Dermatology Comment on above: Spongiotic dermatiti s (Primary Dx) Start: 08-16-2024 End: 08-16-2024 [facility] Start: 08-16-2024 End: 08-16-2024 Nursing evaluation of patient and report Nurse Derm [facility] Re[facility] Work Phone: Dermatology Comment on above: Spongiotic dermatiti s (Primary Dx) Start: 08-16-2024 End: 08-16-2024 Patient encounter procedure Conner Stanley Work Phone: [facility] Work Phone: Start: 08-16-2024 End: 08-16-2024 ambulatory Conner Stanley Facility:[facility] Start: 08-14-2024 End: 08-14-2024 Patient encounter procedure Jes Latham MD Work Phone: Dermatology Comment on above: Contact dermatitis, unspecified contact dermatitis type, unspecified trigger (Primary Dx) Start: 08-14-2024 End: 08-14-2024 [facility] Start: 08-11-2024 End: 08-11-2024 [facility] Start: 08-11-2024 End: 08-11-2024 Nursing evaluation of patient and report Nurse Derm [facility] Re[facility] Work Phone: Dermatology Comment on above: Spongiotic dermatiti s (Primary Dx) Start: 08-10-2024 End: 10-23-2024 Telephone encounter Nurse Derm [facility] Re[facility] Work Phone: Dermatology Comment on above: Appointment Start: 08-09-2024 End: 08-09-2024 [facility] Facility:[facility] Start: 08-09-2024 End: 08-09-2024 Nursing evaluation of patient and report Nurse Derm [facility] Re[facility] Work Phone: Dermatology Comment on above: Spongiotic dermatiti s (Primary Dx) Start: 08-07-2024 End: 08-07-2024 [facility] Facility:[facility] Start: 08-07-2024 End: 08-07-2024 Nursing evaluation of patient and report Nurse Derm [facility] Re[facility] Work Phone: Dermatology Comment on above: Spongiotic dermatiti s (Primary Dx) Start: 08-04-2024 End: 08-04-2024 [facility] Facility:[facility] Start: 08-04-2024 End: 08-04-2024 Nursing evaluation of patient and report Nurse Derm [facility] Re[facility] Work Phone: Dermatology Comment on above: Spongiotic dermatiti s (Primary Dx) Start: 08-02-2024 End: 08-02-2024 [facility] Facility:[facility] Start: 08-02-2024 End: 08-02-2024 Nursing evaluation of patient and report Nurse Derm [facility] Re[facility] Work Phone: Dermatology Comment on above: Spongiotic dermatiti s (Primary Dx) Start: 07-31-2024 End: 07-31-2024 [facility] Facility:[facility] Start: 07-31-2024 End: 07-31-2024 Nursing evaluation of patient and report Nurse Derm [facility] Re[facility] Work Phone: Dermatology Comment on above: Spongiotic dermatiti s (Primary Dx) Start: 07-28-2024 End: 07-28-2024 [facility] Facility:[facility] Start: 07-28-2024 End: 07-28-2024 Nursing evaluation of patient and report Nurse Derm [facility] Re[facility] Work Phone: Dermatology Comment on above: Spongiotic dermatiti s (Primary Dx) Start: 07-28-2024 End: 07-28-2024 ambulatory [facility] Facility[facility] Start: 07-28-2024 End: 07-28-2024 Patient encounter procedure Ebonie De Souza MD Work Phone: Dermatology Comment on above: Rash and nonspecific skin eruption (Primary Dx) Start: 07-27-2024 End: 07-27-2024 Orders Only Ebonie De Souza MD Work Phone: Dermatology Comment on above: Rash and nonspecific skin eruption (Primary Dx) Start: 07-26-2024 End: 07-26-2024 Nursing evaluation of patient and report Nurse Avi [facility] Rej Work Phone: Dermatology Comment on above: Spongiotic dermatiti s (Primary Dx) Start: 07-26-2024 End: 07-26-2024 ambulatory [facility] Facility[facility] Start: 07-24-2024 End: 07-24-2024 Patient encounter procedure [...] Phone: [facility] Start: 07-24-2024 End: 08-01-2024 Bamboo flowsheet Benedicto Edyta DO Work Phone: [facility] Start: 07-24-2024 End: 08-01-2024 Clinisync Result Encounter Generic External Data Provider [facility] External Department Unsolicited Start: 07-24-2024 End: 07-24-2024 ambulatory [facility] Facility:[facility] Start: 07-24-2024 End: 07-24-2024 Nursing evaluation of patient and report Nurse Avi [facility] Rej Work Phone: Dermatology Comment on above: Spongiotic dermatiti s (Primary Dx) Start: 07-21-2024 End: 07-21-2024 ambulatory CONNER STANLEY Facility:[facility] Start: 07-21-2024 End: 07-21-2024 Nursing evaluation of [...] Dx) Start: 07-17-2024 End: 07-17-2024 ambulatory SELF Facility:[facility] Start: 07-14-2024 End: 07-14-2024 Nursing evaluation of patient and report Nurse Derm [facility] Re[facility] Work Phone: Dermatology Comment on above: Spongiotic dermatiti s (Primary Dx) Start: 07-14-2024 End: 08-07-2024 ambulatory Ebonie De Souza MD Work Phone: Dermatology Start: 07-14-2024 End: 08-07-2024 Patient encounter procedure Ebonie De Souza MD Work Phone: Dermatology Comment on above: Aug 14 appointment w [facility] Dr Latham Start: 07-12-2024 End: 07-12-2024 ambulatory SELF Facility:[facility] Start: 07-12-2024 End: 07-12-2024 Nursing evaluation of patient and report Nurse Derm [facility] Re[facility] Work Phone: Dermatology Comment on above: Spongiotic dermatiti s (Primary Dx) Start: 06-20-2024 End: 06-20-2024 Patient encounter procedure Ebonie De Souza MD Work Phone: Dermatology Comment on above: Rash and nonspecific skin eruption (Primary Dx); Spongiotic dermatitis Start: 06-05-2024 End: 06-05-2024 ambulatory Ebonie De Souza MD Work Phone: Dermatology Comment on above: Update Start: 06-05-2024 End: 06-05-2024 E-mail encounter from caregiver Ebonie De Souza MD Work Phone: Dermatology Start: 05-29-2024 End: 05-29-2024 Patient encounter procedure Ebonie De Souza MD Work Phone: Dermatology Comment on above: Rash and nonspecific skin eruption (Primary Dx) Start: 05-29-2024 End: 05-29-2024 Telephone encounter Ebonie De Souza MD Work Phone: Dermatology Start: 05-28-2024 End: 05-29-2024 ambulatory Ebonie De Souza MD Work Phone: Dermatology Comment on above: Rash starting on hea d. Start: 05-12-2024 End: 05-12-2024 Telephone encounter Ebonie De Souza MD Work Phone: Dermatology Comment on above: Received Outside Med ical Records Start: 05-09-2024 End: 05-09-2024 Telephone encounter Vandana Steele MD Work Phone: Pulmonary Medicine Start: 05-05-2024 Telephone encounter Ebonie De Souza MD Work Phone: Dermatology Comment on above: Received Outside Med ical Records Start: 05-05-2024 End: 05-05-2024 Patient encounter procedure Ebonie De Souza MD Work Phone: Dermatology Comment on above: Rash and nonspecific skin eruption (Primary Dx) Start: 05-03-2024 End: 05-03-2024 ambulatory EMELI E RAMBASEK Not Available Start: 05-02-2024 Transcribe Orders Ebonie De Souza MD Work Phone: Dermatology Comment on above: Rash and nonspecific skin eruption (Primary Dx) Received Outside Med ical Records Follow appointment w krista me on 05/05 Start: 04-30-2024 Telephone encounter Ebonie De Souza MD Work Phone: [facility] [place] Start: 04-28-2024 End: 04-28-2024 Emergency department patient visit LINDA HODGE Facility:[facility] Start: 04-28-2024 End: 04-28-2024 ambulatory CONNER STANLEY Not Available Start: 04-24-2024 Telephone encounter Nurse Nati stacy Work Phone: Dermatology Comment on above: Appointment; Receive d Outside Medical Records Start: 04-07-2024 End: 04-08-2024 Emergency department patient visit DO Conner Stanley Work Phone: [facility]Emergency Room Work Phone: Start: 04-04-2024 End: 04-04-2024 Emergency department patient visit DO Conner Stanley Work Phone: [facility]Emergency [facility] Work Phone: Start: 03-25-2024 End: 03-25-2024 Emergency department patient visit DO Conner Stanley Work Phone: [facility]gency [facility] Work Phone: Start: 03-13-2024 End: 03-13-2024 ambulatory CONNER STANLEY Not Available Start: 12-08-2022 End: 12-09-[address] PATRICK VENTURA Facility: Start: 11-20-2022 End: 11-20-2022 ambulatory DO Conner Stanley Work Phone: [facility] Work Phone: Start: 11-20-2022 End: 11-20-2022 Patient encounter procedure DO Conner Stanley Work Phone: [facility] Work Phone: Start: 09-30-2022 Registered Recurring DO Conner Stanley Work Phone: [facility] Work Phone: Start: 09-18-2022 End: 09-18-2022 Patient encounter procedure DO Conner Stanley Work Phone: [facility] [place] Work Phone: Start: 08-26-2022 Phys/qhp telephone evaluation 21-30 min No PCP None [id number] olwell 6 [facility] Work Phone: Start: 08-26-2022 ambulatory Henrique Vail Facility:U Start: 08-12-2022 End: 08-12-2022 ambulatory DO Conner Stanley Work Phone: [facility] Work Phone: Start: 08-12-2022 End: 08-12-2022 Patient encounter procedure DO Conner Stanley Work Phone: [facility] Start: 03-24-2022 End: 03-25-[address] BENEDICTO LAN . Facility: Start: 03-16-2022 End: 03-16-[address] BENEDICTO LAN . Facility: Start: 05-05-2019 End: 05-08-2019 Patient encounter procedure [facility] Start: 05-05-2019 End: 05-07-2019 Subsequent hospital visit by physician [facility] Ultrasound Room [facility] Ultrasound Comment on above: Abnormal mammogram Start: 04-10-2019 End: 04-13-2019 Patient encounter procedure [facility] Start: 03-15-2019 End: 03-15-2019 Patient encounter procedure RADHA CARVALHO [facility] Procedures Date Procedure Procedure Detail Performing Clinician Start: 06-18-2025 Complete blood count with white cell differential, automated Clarence Vines DO Work Phone: Start: 06-18-2025 Immunoassay tumor antigen quantitative ca 125 Clarence Vines DO Work Phone: Start: 06-18-2025 ALL CBC WITH AUTO DIFF Generic External Data Provider Start: 05-28-2025 Complete blood count with white cell differential, automated Clarence Vines DO Work Phone: Start: 05-28-2025 Comprehensive metabolic panel Clarence Vines DO Work Phone: Start: 05-09-2025 TISS PATH BX REPORT Generic External Data Provider Start: 05-09-2025 Laparoscopy w/rmvl adnexal structures Carlin SOLIS Start: 05-09-2025 Laps fulg/exc ovary viscera/peritoneal surface Carlin SOLIS Start: 04-27-2025 [facility] CONFIRM BLOOD TYPE Generic External Data Provider Start: 04-27-2025 Antibody screen CONNER STANLEY Comment on above: Order Comment: Specimen Type: BLOOD SPEC IMENOrdering Facility: [facility] Address: [address] [place] [address] Performed By: #### T [id number] ####CC MAIN BLOOD BANKCLIA [id number] [facility] [id number] Start: 04-27-2025 [facility] CBC PNL BLD AUTO Generic External Data Provider Start: 04-27-2025 Radiologic exam chest 2 views Juan Charles se, MD Work Phone: Start: 04-27-2025 XR CHEST 2V FRONTAL/LAT Generic External Data Provider Start: 04-18-2025 End: 04-18-2025 Positron emission tomography with computed tomography Conner Stanley DO Work Phone: Start: 04-18-2025 GLUCOSE POCT GLUCOMETERS Clarence Vines DO Work Phone: Start: 04-18-2025 Complete blood count with white cell differential, automated Clarence Vines DO Work Phone: Start: 04-18-2025 Comprehensive metabolic panel Clarence Vines DO Work Phone: Start: 04-18-2025 Immunoassay tumor antigen quantitative ca 125 Clarence Vines DO Work Phone: Start: 03-29-2025 Complete blood count with white cell differential, automated Clarence Vines DO Work Phone: Start: 03-29-2025 Comprehensive metabolic panel Clarence Vines DO Work Phone: Start: 03-29-2025 Immunoassay tumor antigen quantitative ca 125 Clarence Vines DO Work Phone: Start: 03-05-2025 Carcinoembryonic antigen cea Clarence juárez DO Work Phone: Comment on above: Serial tumor marker results determined b y assays using different manufacturers or methods may not be comparable. [facility] [employer] application design engineer and method: [employer] DXI, 2 SITE IMMUNOENZYMATIC SANDWICH ASSAY. Start: 03-05-2025 Complete blood count with white cell differential, automated Clarence Vines DO Work Phone: Start: 03-05-2025 Comprehensive metabolic panel Clarence Vines DO Work Phone: Comment on above: Result Comment: Serial tumor marker resu lts determined by assays using different manufacturers or methods may not be comparable. [facility] application design engineer and method: [employer] DXI, 2 SITE IMMUNOENZYMATIC ?SANDWICH? ASSAY. PERFORMED BY: [place] [address] PATHOLOGIST BASE DRAW OPERATOR MARISEL MANRIQUE M.D. Performed By: #### T SH3, FE, TIBC, CMP, CBC #### [address] #### CELIAC #### [facility] , Start: 03-05-2025 Immunoassay tumor antigen quantitative ca 125 Clarence Vines DO Work Phone: Start: 03-05-2025 Measurement of carcinoembryonic antigen in body fluid specimen Conner Stanley DO Work Phone: Comment on above: Serial tumor marker results determined b y assays using different manufacturers or methods may not be comparable.[facility] application design engineer and method:[employer] DXI, 2 SITE IMMUNOENZYMATIC SANDWICH ASSAY. Start: 02-16-2025 Complete blood count with white cell differential, automated Clarence Vines DO Work Phone: Start: 02-16-2025 Comprehensive metabolic panel Clarence Vines DO Work Phone: Start: 02-01-2025 [facility] CANCER AG19-9 SERPL-ACNC Generic Ext ernal Data Provider Start: 01-29-2025 Carcinoembryonic antigen cea Clarence juárez DO Work Phone: Comment on above: Serial tumor marker results determined b y assays using different manufacturers or methods may not be comparable. [facility] Laboratory application design engineer and method: [employer] DXI, 2 SITE IMMUNOENZYMATIC SANDWICH ASSAY. Start: 01-29-2025 Positron emission tomography with computed tomography Conner Jaden DO Work Phone: Start: 01-29-2025 Complete blood count with white cell differential, automated Clarence Barker Mohinder DO Work Phone: Start: 01-29-2025 Comprehensive metabolic panel Clarence Vines DO Work Phone: Comment on above: Result Comment: Serial tumor marker resu lts determined by assays using different manufacturers or methods may not be comparable. [facility] application design engineer and method: [employer] D[employer], 2 SITE IMMUNOENZYMATIC ?SANDWICH? ASSAY. PERFORMED BY: [place] [address] PATHOLOGIST BASE DRAW OPERATOR LUCIAN HAQ M.D. Performed By: #### C A125 #### [facility] , #### CEA, CBC #### [address] Start: 01-29-2025 Immunoassay tumor antigen quantitative ca 125 Clarence Barker Mohinder DO Work Phone: Start: 01-29-2025 GLUCOSE POCT GLUCOMETERS Clarence Mj Vines DO Work Phone: Start: 01-18-2025 aPTT in Blood by Coagulation assay Benedicto Amoro DO Work Phone: Start: 01-18-2025 Blood count platelet automated Benedicto Rajesh io DO Work Phone: Start: 01-18-2025 US bx lymph node Conner Stanley DO Work Phone: Start: 01-17-2025 Ultrasonography of axilla Conner Stanley DO Work Phone: Start: 01-15-2025 Computed tomography of abdomen and pelvis with contrast Conner Stanley DO Work Phone: Start: 01-10-2025 End: 01-10-2025 Screening colonoscopy Conner Stanley DO Work Phone: Start: 01-10-2025 Colonoscopy Benedicto Lan DO Work Phone: Start: 01-09-2025 Urnls dip stick/tablet rgnt non-auto w/o micrscp Benedicto Lan DO Work Phone: Start: 11-23-2024 Esophagogastroduodenoscopy Conner fair DO Work Phone: Start: 11-20-2024 ALLERGEN SKIN TEST-FOOD Tamera Evans MD Work Phone: Start: 11-20-2024 [facility] CBC W AUTO DIFF BLD Generic External Data Provider Start: 10-12-2024 Radex hip unilateral with pelvis 2-3 views Nenita Ken MD Work Phone: Start: 09-26-2024 CELIAC Pili Evans NP Work Phone: Start: 09-26-2024 Complete blood count with white cell differential, automated Pili Evans NP Work Phone: Start: 09-26-2024 Plain X-ray of right hip Conner Stanley DO Work Phone: Start: 08-16-2024 Ultrasonography of bilateral breasts Conner Stanley DO Work Phone: Start: 08-16-2024 Bilateral mammography Conner Stanley DO Work Phone: Start: 07-24-2024 IGP,APTIMA HPV,AGE GDLN Benedicto Lan DO Work Phone: Start: 04-04-2024 Plain chest X-ray DO Conner Stanley Work Phone: Start: 04-04-2024 Streptococcus pyogenes antigen assay DO Conner Stanley Work Phone: Start: 07-20-2023 Cytp cerv/vag auto thin layer prep mnl screen Benedicto Lan DO Work Phone: Start: 11-20-2022 End: 11-20-2022 Screening mammography of bilateral breasts DO Conner Stanley Work Phone: Start: 08-12-2022 Magnetic resonance cholangiopancreatography DO Conner Stanley Work Phone: Start: 05-05-2019 Us breast uni real time with image complete EBER PALOMARES Start: 05-05-2019 Diagnostic mammography computer-aided detcj bi EBER PALOMARES Start: 05-05-2019 Us breast uni real time with image complete [place] J Palomares Work Phone: Start: 04-10-2019 Screening mammography bi 2-view breast inc cad EBER PALOMARES Start: 03-15-2019 DIET GENERAL EBER PALOMARES Start: 03-15-2019 MISCELLANEOUS NURSING CARE ORDER (SPECIFY) EBER PALOMARES Start: 03-15-2019 REMOVE IV EBER PALOMARES Start: 03-15-2019 VITAL SIGNS EBER PALOMARES Start: 03-15-2019 DISCHARGE PATIENT EBER PALOMARES Start: 03-15-2019 Level iv surg pathology gross&microscopic exam EBER PALOMARES Start: 03-15-2019 INSERT PERIPHERAL IV EBER PALOMARES Start: 03-15-2019 Colonoscopy Nurse Clinical Work Phone: Plan of Treatment Date Care Activity Detail Author Start: 01-10-2035 Screening for malignant neoplasm of colon [facility] Start: 2030 RSV Vaccine (1 - 1-dose 75+ series) RSV Vaccine (1 - 1-dose 75+ series) [facility] Start: 03-15-2029 Screening for malignant neoplasm of colon [facility] Start: 05-28-2028 Diabetes Screening Diabetes Screening [facility] Start: 04-27-2028 Diabetes Screening Diabetes Screening [facility] Start: 03-29-2028 Diabetes Screening Diabetes Screening [facility] Start: 03-05-2028 Diabetes Screening Diabetes Screening [facility] Start: 01-30-2028 Diabetes Screening Diabetes Screening [facility] Start: 09-26-2027 Diabetes Screening Diabetes Screening [facility] Start: 05-05-2027 Diabetes Screening Diabetes Screening [facility] Start: 05-03-2027 Diabetes Screening Diabetes Screening [facility] Start: 04-28-2027 Diabetes Screening Diabetes Screening [facility] Start: 12-13-2025 Medicare Annual Wellness (AWV) Medicare Annual Wellness (AWV) [facility] Start: 06-18-2025 Cancer Ag 125 [Units/volume] in Serum or Plasma [facility] Start: 06-18-2025 Comprehensive metabolic 2000 panel - Serum or Plasma [facility] Work Phone: Start: 06-18-2025 [facility] Start: 06-11-2025 End: 06-11-2025 Patient encounter procedure [facility] Start: 05-30-2025 [facility] Start: 05-30-2025 [facility] Start: 05-29-2025 End: 05-29-2025 ambulatory 05/29/2025 3:30 PM EDT Visit (SP) Office Gynecology Oncology [address] [place] [address] [place] [address] [place] [address] POST OP Gynecology Oncology Comment on above: POST OP Start: 05-21-2025 Influenza vaccination [facility] Start: 05-15-2025 End: 05-15-2025 Nursing evaluation of patient and report 05/15/2025 3:20 PM EDT Nurse Visit Dermatology [address] [place], [place] [id number] Rej, Nurse Derm [facility] [address] [place], [place] [id number] [facility] Comment on above: UVB Start: 05-14-2025 End: 05-14-2025 ambulatory 05/14/2025 11:00 AM EDT [facility] Gynecology Oncology [address] [place] [address] Aliyah Ritchie APRN.HARNESS INSPECTOR [address] [place] [address] POST OP Gynecology Oncology Comment on above: POST OP Start: 05-09-2025 End: 05-09-2025 Admission to same day surgery center 05/09/2025 11:15 AM EDT - 05/09/2025 1:29 PM EDT Surgery Admitting [address] [id number] [place] [address] [place] [address] LAPAROSCOPY WITH OOPHORECTOMY AND SALPINGECTOMY Admitting Comment on above: LAPAROSCOPY WITH OOPHORECTOMY AND SALPIN GECTOMY Start: 05-09-2025 End: 05-09-2025 Laparoscopy w/rmvl adnexal structures LAPAROSCOPY WITH OOPHORECTOMY AND SALPINGECTOMY Carcinomatosis peritonei (HCC) 05/09/2025 11:15 AM EDT [facility] Start: 05-09-2025 Subsequent hospital visit by physician 05/09/2025 11:15 AM EDT Hospital Encounter Admitting [address] [place] [address] [place] [address] [place] [address] 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] Admitting Comment on above: 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] Start: 05-08-2025 End: 05-08-2025 Nursing evaluation of patient and report 05/08/2025 3:20 PM EDT Nurse Visit Dermatology [address] [place], [place] [phone] Rej, Nurse Derm [facility] [address] [place] [address] [facility] Comment on above: UVB Start: 05-07-2025 End: 05-07-2025 Nursing evaluation of patient and report 05/07/2025 8:30 AM EDT Nurse Visit Gynecology Oncology [id number] [place] [phone] 4, [place] [address] [place] [address] teaching Gynecology Oncology Comment on above: teaching Start: 05-01-2025 End: 05-01-2025 Nursing evaluation of patient and report 05/01/2025 3:20 PM EDT Nurse Visit Dermatology [id number] [place] [address] Rej, Nurse Derm [address] [address] [facility] Comment on above: UVB Start: 05-01-2025 End: 05-01-2025 Anesthesia consultation 05/01/2025 2:00 PM EDT PAT Pre Anesthesia [address] [address] 2, [employer] [address] [place] [address] PACC Pre Anesthesia Comment on above: PACC Start: 04-30-2025 [facility] Start: 04-20-2025 [facility] Start: 04-20-2025 [facility] Start: 04-17-2025 End: 04-17-2025 Nursing evaluation of patient and report 04/17/2025 3:20 PM EDT Nurse Visit Dermatology [id number] [place] [address] Rej, Nurse Derm [facility] [id number] [place] [address] [facility] Comment on above: UVB Start: 04-10-2025 End: 04-10-2025 Nursing evaluation of patient and report 04/10/2025 3:20 PM EDT Nurse Visit Dermatology [address] [place] [address] Rej, Nurse Derm [facility] [id number] [place] [address] [facility] Comment on above: UVB Start: 04-06-2025 End: 04-06-2025 Nursing evaluation of patient and report 04/06/2025 4:00 PM EDT Nurse Visit Dermatology [address] [place] [address] Rej, Nurse Derm [facility] [address] [place] [address] [facility] Comment on above: UVB Start: 04-03-2025 End: 04-03-2025 Nursing evaluation of patient and report 04/03/2025 2:20 PM EDT Nurse Visit Dermatology [id number] [place] [address] Rej, Nurse Derm [facility] [id number] [place] [address] [facility] Comment on above: UVB Start: 03-30-2025 [facility] Start: 03-29-2025 Cancer Ag 125 [Units/volume] in Serum or Plasma [facility] Start: 03-28-2025 [facility] Start: 03-27-2025 End: 03-27-2025 Nursing evaluation of patient and report Dermatology Comment on above: UVB UVB last scheduled t x - ask pt if she is desirous of scheduling more Start: 03-20-2025 End: 03-20-2025 Nursing evaluation of patient and report 03/20/2025 3:00 PM EDT Nurse Visit Dermatology [id number] [place] [address] Rej, Nurse Derm [facility] [id number] [place] [address] [facility] Comment on above: UVB Start: 03-19-2025 End: 09-19-2025 Celiac panel reflex to titer Celiac panel reflex to titer Lab Routine Fatigue, unspecified type Thrombocytosis Non-celiac gluten sensitivity Expected: 03/19/2025 (Approximate), Expires: 09/19/2025 [facility] Comment on above: Expected: 03/19/2025 (Approximate), Expi res: 09/19/2025 Start: 03-16-2025 End: 03-16-2025 Nursing evaluation of patient and report 03/16/2025 3:00 PM EDT Nurse Visit Dermatology [address] [place] [address] Rej, Nurse Derm [facility] [id number] [place] [address], [place] [address] [facility] Comment on above: UVB Start: 03-13-2025 End: 03-13-2025 Nursing evaluation of patient and report 03/13/2025 3:00 PM EDT Nurse Visit Dermatology [address] [place] [address] Rej, Nurse Derm [facility] [address] [place] [address] [facility] Comment on above: UVB Start: 03-09-2025 End: 03-09-2025 Nursing evaluation of patient and report 03/09/2025 3:00 PM EDT Nurse Visit Dermatology [address] [place] [address] Rej, Nurse Derm [facility] [id number] [place] [address] [facility] Comment on above: UVB Start: 03-08-2025 [facility] Start: 03-07-2025 End: 03-08-2025 [facility] Start: 03-06-2025 [facility] Start: 03-02-2025 End: 03-02-2025 Nursing evaluation of patient and report 03/02/2025 3:00 PM EDT Nurse Visit Dermatology [id number] [place] [address] Rej, Nurse Derm [facility] [id number] [place] [address] [facility] Comment on above: UVB Start: 02-27-2025 End: 02-27-2025 Nursing evaluation of patient and report 02/27/2025 3:00 PM EDT Nurse Visit Dermatology [address] [place] [address] Rej, Nurse Derm [facility] [id number] [place] [address] [facility] Comment on above: UVB Start: 02-26-2025 End: 02-26-2025 Patient encounter procedure 02/26/2025 11:15 AM EDT Office Visit Dermatology [address] [address] Ebonie De Souza MD [address] [place] [address] rash follow up Dermatology Comment on above: rash follow up Start: 02-23-2025 End: 02-23-2025 Nursing evaluation of patient and report 02/23/2025 3:00 PM EDT Nurse Visit Dermatology [address] [place] [address] Rej, Nurse Derm [facility] [address] [place] [address] [facility] Comment on above: UVB Start: 02-20-2025 End: 02-20-2025 Nursing evaluation of patient and report 02/20/2025 3:20 PM EDT Nurse Visit Dermatology [address] [place] [address] Rej, Nurse Derm [facility] [id number] [place] [address], [place] [address] [facility] Comment on above: UVB Start: 02-16-2025 End: 02-16-2025 Nursing evaluation of patient and report 02/16/2025 3:20 PM EDT Nurse Visit Dermatology [address] [place] [address] Rej, Nurse Derm [facility] [address] [facility] [address] [facility] Comment on above: UVB Start: 02-13-2025 End: 02-13-2025 Nursing evaluation of patient and report 02/13/2025 3:20 PM EDT Nurse Visit Dermatology [address] [place] [address] Rej, Nurse Derm [facility] [id number] [place] [address], [place] [address] [facility] Comment on above: UVB Start: 02-13-2025 End: 02-13-2025 [facility] Start: 02-13-2025 [facility] Start: 02-09-2025 End: 02-09-2025 Nursing evaluation of patient and report 02/09/2025 4:00 PM EDT Nurse Visit Dermatology [address] [facility] [address] Rej, Nurse Derm [facility] [address] [place] [address] [facility] D[facility] Comment on above: UVB Start: 02-07-2025 End: 02-07-2025 Professional / ancillary services management 02/07/2025 11:00 AM EDT Ancillary Procedure [facility] [address] [place] [address] [facility] Start: 02-06-2025 End: 02-06-2025 Nursing evaluation of patient and report 02/06/2025 3:20 PM EDT Nurse Visit Dermatology [address] [place] [address] Rej, Nurse Derm [facility] [address] [place] [address] [facility] Comment on above: UVB Start: 02-06-2025 End: 02-06-2025 Patient encounter procedure 02/06/2025 1:35 PM EDT Visit (SP) Office Gynecology Oncology [address] [place] [address] [place] [address] [place] [address] NEW CONSULT/ MALIGNANT NEOPLASM OF OVARY/ REFERRING DR. CLARENCE VINES ([facility])/ RECORDS SCANNED INTO CHART Gynecology Oncology Comment on above: NEW CONSULT/ MALIGNANT NEOPLASM OF OVARY / REFERRING DR. CLARENCE VINES ([facility])/ RECORDS SCANNED INTO CHART Start: 02-01-2025 End: 02-01-2025 Nursing evaluation of patient and report 02/01/2025 3:20 PM EDT Nurse Visit Dermatology [address] [place] [address] Rej, Nurse Derm [facility] [address] [place] [address] [facility] Comment on above: UVB Start: 01-30-2025 End: 01-30-2025 Nursing evaluation of patient and report 01/30/2025 3:20 PM EDT Nurse Visit Dermatology [address] [place] [address] Rej, Nurse Derm [facility] [address] [place] [address] [facility] Comment on above: UVB Start: 01-26-2025 End: 01-26-2025 Nursing evaluation of patient and report 01/26/2025 4:00 PM EDT Nurse Visit Dermatology [address] [place] [address] Rej, Nurse Derm [facility] [address] [place] [address] [facility] Comment on above: UVB Start: 01-26-2025 End: 01-26-2025 Patient encounter procedure 01/26/2025 9:30 AM EDT Office Visit Gastroenterology [address] [place] [address] Jenn Goyal APRN.HARNESS INSPECTOR [address] [place] [address] stomach ache and back ache, all over rash Gastroenterology Comment on above: stomach ache and back ache, all over rachel h Start: 01-23-2025 End: 01-23-2025 Nursing evaluation of patient and report 01/23/2025 3:20 PM EDT Nurse Visit Dermatology [address] [place] [address] Rej, Nurse Derm [facility] [id number] [place] [address] [facility] D[facility] Comment on above: UVB Start: 01-23-2025 Patient referral [facility] Work Phone: Start: 01-19-2025 End: 01-19-2025 Nursing evaluation of patient and report 01/19/2025 3:20 PM EDT Nurse Visit Dermatology [address] [place] [address] Rej, Nurse Derm [facility] [address] [place] [address] [facility] D[facility] Comment on above: UVB Start: 01-18-2025 [facility] Start: 01-18-2025 US bx lymph node US bx lymph node [facility] Start: 01-18-2025 US guidance for percutaneous biopsy of Lymph node [facility] Start: 01-16-2025 End: 01-16-2025 Nursing evaluation of patient and report 01/16/2025 3:20 PM EDT Nurse Visit Dermatology [address] [place] [address] Rej, Nurse Derm [facility] [address] [place] [address] [facility] D[facility]atology Comment on above: UVB Start: 01-12-2025 End: 01-12-2025 Nursing evaluation of patient and report 01/12/2025 3:20 PM EDT Nurse Visit Dermatology [address] [place] [address] Rej, Nurse Derm [facility] [address] [place] [address] [facility] Dermatology Comment on above: UVB Start: 01-10-2025 [facility] Start: 01-09-2025 End: 01-09-2025 Nursing evaluation of patient and report 01/09/2025 3:20 PM EDT Nurse Visit Dermatology [id number] [place] [address] Rej, Nurse Derm [facility] [id number] [place] [address], [place] [address] [facility] Dermatology Comment on above: UVB Start: 01-09-2025 End: 01-09-2026 US Axilla US Axilla Imaging Routine Lump of axilla, right Expected: 01/09/2025, Expires: 01/09/2026 [facility] Work Phone: Comment on above: Expected: 01/09/2025, Expires: Start: 01-09-2025 End: 07-11-2025 US Pelvis US Pelvis w/ TV Imaging Routine Leiomyoma Expected: 01/09/2025, Expires: 07/11/2025 [facility] Comment on above: Expected: 01/09/2025, Expires: Start: 01-09-2025 End: 01-09-2025 Patient encounter procedure 01/09/2025 10:00 AM EDT Office Visit [facility] [address] [place] [id number] Benedicto Lan, [address] [place] [address] Arrived [facility] Comment on above: Arrived Start: 01-05-2025 End: 01-05-2025 Nursing evaluation of patient and report 01/05/2025 3:20 PM EDT Nurse Visit Dermatology [id number] [place] [address] Rej, Nurse Derm [facility] [phone] [place] [address] [facility] Comment on above: UVB Start: 01-02-2025 End: 01-02-2025 Nursing evaluation of patient and report 01/02/2025 3:20 PM EDT Nurse Visit Dermatology [address] [place] [address] Rej, Nurse Derm [facility] [id number] [place] [address] [facility] Comment on above: UVB Start: 01-01-2025 End: 01-01-2025 Patient encounter procedure 01/01/2025 1:25 PM EDT Office Visit Gastroenterology [place] [address] [place] [id number] Aixa Nguyễn APRN.HARNESS INSPECTOR [address] [place] [address] Family history of pancreatic cancer [Z80.0]Weight loss, unintentional [R63.4]Generalized postprandial abdominal pain [R10.84]Nausea [R11.0] Gastroenterology [place] Comment on above: Family history of pancreatic cancer [Z80 .0]Weight loss, unintentional [R63.4]Generalized postprandial abdominal pain [R10.84]Nausea [R11.0] Start: 12-29-2024 End: 12-29-2024 Nursing evaluation of patient and report 12/29/2024 3:20 PM EDT Nurse Visit Dermatology [address] [place] [address] Rej, Nurse Derm [facility] [id number] [place] [address] [facility] D[facility]at[facility] Comment on above: UVB Start: 12-27-2024 End: 12-27-2024 Nursing evaluation of patient and report 12/27/2024 3:20 PM EDT Nurse Visit Dermatology [address] [facility] [address] Rej, Nurse Derm [facility] [id number] [place] [address] [place] [address] [facility] D[facility]atology Comment on above: UVB Start: 12-26-2024 End: 12-26-2024 Nursing evaluation of patient and report 12/26/2024 10:40 AM EDT Nurse Visit Dermatology [address] [place] [address] Rej, Nurse Derm [facility] [id number] [place] [address] [facility]at[facility] Comment on above: UVB Start: 12-20-2024 End: 12-20-2024 Nursing evaluation of patient and report 12/20/2024 1:40 PM EDT Nurse Visit Dermatology [id number] [place] [address] Rej, Nurse Derm [facility] [address] [place] [address] uvb Dermatology Comment on above: uvb Start: 12-18-2024 End: 12-18-2024 Nursing evaluation of patient and report 12/18/2024 3:00 PM EDT Nurse Visit Dermatology [id number] [place] [address] Rej, Nurse Derm [facility] [id number] [place] [address] uvb Dermatology Comment on above: uvb Start: 12-15-2024 End: 12-15-2024 Nursing evaluation of patient and report 12/15/2024 3:00 PM EDT Nurse Visit Dermatology [id number] [place] [address] Rej, Nurse Derm [address] [place] [address] uvb Dermatology Comment on above: uvb Start: 12-13-2024 End: 12-13-2024 Nursing evaluation of patient and report 12/13/2024 3:00 PM EDT Nurse Visit Dermatology [id number] [place] [address] Rej, Nurse Derm [facility] [address] [facility] [place] [address] uvb Dermatology Comment on above: uvb Start: 12-11-2024 End: 12-11-2024 Nursing evaluation of patient and report 12/11/2024 3:00 PM EDT Nurse Visit Dermatology [address] [place] [address] Rej, Nurse Derm [facility] [address] [place] [address] uvb Dermatology Comment on above: uvb Start: 12-08-2024 End: 12-08-2024 Nursing evaluation of patient and report 12/08/2024 3:00 PM EDT Nurse Visit Dermatology [address] [place] [address] Rej, Nurse Derm [facility] [address] [place] [address] uvb Dermatology Comment on above: uvb Start: 12-06-2024 End: 12-06-2024 Nursing evaluation of patient and report 12/06/2024 3:00 PM EDT Nurse Visit Dermatology [address] [place] [address] Rej, Nurse Derm [facility] [id number] [place] [address] uvb Dermatology Comment on above: uvb Start: 12-04-2024 End: 12-04-2024 Nursing evaluation of patient and report 12/04/2024 3:00 PM EDT Nurse Visit Dermatology [address] [place] [address] Rej, Nurse Derm [facility] [address] [place] [address] uvb Dermatology Comment on above: uvb Start: 12-01-2024 End: 12-01-2024 Nursing evaluation of patient and report 12/01/2024 3:40 PM EDT Nurse Visit Dermatology [address] [place] [address] Rej, Nurse Derm [facility] [address] [place] [address] uvb Dermatology Comment on above: uvb Start: 11-29-2024 End: 11-29-2024 Nursing evaluation of patient and report 11/29/2024 3:00 PM EDT Nurse Visit Dermatology [address] [place] [address] Rej, Nurse Derm [facility] [id number] [place] [address], [place] [address] uvb Dermatology Comment on above: uvb Start: 11-27-2024 End: 11-27-2024 Nursing evaluation of patient and report 11/27/2024 3:00 PM EDT Nurse Visit Dermatology [address] [place] [address] Rej, Nurse Derm [facility] [id number] [place] [address], [place] [address] uvb Dermatology Comment on above: uvb Start: 11-24-2024 End: 11-24-2024 Nursing evaluation of patient and report 11/24/2024 3:00 PM EST Nurse Visit Dermatology [address] [place] [address] Rej, Nurse Derm [facility] [id number] [place] [address], [place] [address] uvb Dermatology Comment on above: uvb Start: 11-23-2024 [facility] Start: 11-22-2024 End: 11-22-2024 Nursing evaluation of patient and report 11/22/2024 2:40 PM EST Nurse Visit Dermatology [address] [place] [address] Rej, Nurse Derm [address] [place] [address] uvb Dermatology Comment on above: uvb Start: 11-20-2024 End: 02-19-2025 ALGN RESP DISEASE PROF REG 5 [facility] Comment on above: Expected: 11/20/2024, Expires: Start: 11-20-2024 End: 02-19-2025 Cobalamin (Vitamin B12) [Mass/volume] in Serum or Plasma [facility] Comment on above: Expected: 11/20/2024, Expires: Start: 11-20-2024 End: 02-19-2025 IgE [Units/volume] in Serum or Plasma [facility] Comment on above: Expected: 11/20/2024, Expires: Start: 11-20-2024 End: 02-19-2025 PROTEIN ELECTROPHORESIS SERUM W/INTERP [facility] Comment on above: Expected: 11/20/2024, Expires: 5 Start: 11-20-2024 End: 02-19-2025 TRYPTASE BLOOD [facility] Work Phone: Comment on above: Expected: 11/20/2024, Expires: Start: 11-20-2024 End: 11-20-2024 Nursing evaluation of patient and report 11/20/2024 1:40 PM EST Nurse Visit Dermatology [address] [place] [address] Rej, Nurse Derm [address] [address] uvb Dermatology Comment on above: uvb Start: 11-20-2024 End: 11-20-2024 Patient encounter procedure 11/20/2024 9:30 AM EST Office Visit Allergy and Immunology [address] [place] [address] [place] [address] [place] [address] rash [facility]ergy [facility]ology Comment on above: rash Start: 11-17-2024 End: 11-17-2024 Nursing evaluation of patient and report 11/17/2024 3:20 PM EST Nurse Visit Dermatology [address] [place] [address] Rej, Nurse Derm [address] [address] uvb Dermatology Comment on above: uvb Start: 11-17-2024 End: 11-17-2024 Patient encounter procedure 11/17/2024 11:30 AM EST Office Visit Dermatology [address] [address] [place] [address] [place], [place] [id number] patch testing Dermatology Comment on above: patch testing Start: 11-15-2024 End: 11-15-2024 Nursing evaluation of patient and report 11/15/2024 1:40 PM EST Nurse Visit Dermatology [address] [place] [address] Rej, Nurse Derm [facility] [id number] [place] [address], [place] [address] uvb Dermatology Comment on above: uvb Start: 11-13-2024 End: 11-13-2024 Patient encounter procedure Dermatology Comment on above: patch testing Delivery 11/07 Patches in fridge Start: 11-09-2024 End: 11-09-2024 Nursing evaluation of patient and report 11/09/2024 1:20 PM EST Nurse Visit Dermatology [address] [place] [address] Rej, Nurse Derm [facility] [id number] [place] [address] uvb Dermatology Comment on above: uvb Start: 10-27-2024 End: 10-27-2024 Nursing evaluation of patient and report 10/27/2024 3:20 PM EST Nurse Visit Dermatology [address] [place] [address] Rej, Nurse Derm [facility] [id number] [place] [address], [place] [address] uvb Dermatology Comment on above: uvb Start: 10-25-2024 End: 10-25-2024 Nursing evaluation of patient and report 10/25/2024 3:40 PM EST Nurse Visit Dermatology [id number] [place] [address] Rej, Nurse Derm [facility] [id number] [place] [address], [place] [address] uvb Dermatology Comment on above: uvb Start: 10-23-2024 End: 10-23-2024 Nursing evaluation of patient and report 10/23/2024 3:40 PM EST Nurse Visit Dermatology [address] [place] [address] Rej, Nurse Derm [facility] [id number] [place] [address], [place] [address] uvb Dermatology Comment on above: uvb Start: 10-20-2024 End: 10-20-2024 Nursing evaluation of patient and report 10/20/2024 3:40 PM EST Nurse Visit Dermatology [address] [facility] [place] [address] Rej, Nurse Derm [facility] [address] [place] [address] uvb Dermatology Comment on above: uvb Start: 10-18-2024 End: 10-18-2024 Nursing evaluation of patient and report 10/18/2024 3:40 PM EST Nurse Visit Dermatology [address] [place] [address] Rej, Nurse Derm [facility] [address] [place] [address] uvb Dermatology Comment on above: uvb Start: 10-16-2024 End: 10-16-2024 Nursing evaluation of patient and report 10/16/2024 3:40 PM EST Nurse Visit Dermatology [id number] [place] [address], [place] [address] Rej, Nurse Derm [facility] [id number] [place] [address], [place] [address] uvb Dermatology Comment on above: uvb Start: 10-13-2024 End: 10-13-2024 Nursing evaluation of patient and report 10/13/2024 3:20 PM EST Nurse Visit Dermatology [id number] [place] [address], [place] [address] Rej, Nurse Derm [facility] [address] [place] [address], [place] [address] uvb Dermatology Comment on above: uvb Start: 10-12-2024 End: 10-12-2024 Patient encounter procedure Orthopaedics Comment on above: Pain in joint of right hip & Primary ost eoarthritis of right hip x ray hip Start: 10-11-2024 End: 10-11-2024 Nursing evaluation of patient and report 10/11/2024 3:40 PM EST Nurse Visit Dermatology [address] [place] [address] Rej, Nurse Derm [facility] [address] [facility] [address] uvb Dermatology Comment on above: uvb Start: 10-09-2024 End: 10-09-2024 Nursing evaluation of patient and report 10/09/2024 3:40 PM EST Nurse Visit Dermatology [id number] [place] [address] Rej, Nurse Derm [address] [address] uvb Dermatology Comment on above: uvb Start: 10-06-2024 End: 10-06-2024 Nursing evaluation of patient and report Dermatology Comment on above: uvb pt coming at 220 uvb Start: 10-04-2024 End: 10-04-2024 Nursing evaluation of patient and report 10/04/2024 3:40 PM EST Nurse Visit Dermatology [address] [place] [address] Rej, Nurse Derm [address] [address] uvb Dermatology Comment on above: uvb Start: 10-02-2024 End: 10-02-2024 Nursing evaluation of patient and report 10/02/2024 3:40 PM EST Nurse Visit Dermatology [address] [place] [address] Rej, Nurse Derm [address] [address] uvb Dermatology Comment on above: uvb Start: 09-29-2024 End: 09-29-2024 Nursing evaluation of patient and report 09/29/2024 3:40 PM EST Nurse Visit Dermatology [address] [place] [address] Rej, Nurse Derm [address] [address] uvb Dermatology Comment on above: uvb Start: 09-29-2024 End: 09-29-2024 Patient encounter procedure 09/29/2024 10:00 AM EST Office Visit [facility] [address] [place] [id number] Conner Stanley DO [address] [place] [address] [facility] Start: 09-27-2024 End: 09-27-2024 Nursing evaluation of patient and report 09/27/2024 3:40 PM EST Nurse Visit Dermatology [address] [facility] [address] Rej, Nurse Derm [facility] [address] [facility] [address] uvb Dermatology Comment on above: uvb Start: 09-26-2024 [facility] Start: 09-25-2024 End: 09-25-2024 Nursing evaluation of patient and report 09/25/2024 3:40 PM EST Nurse Visit Dermatology [address] [place] [address] Rej, Nurse Derm [facility] [id number] [place] [address], [place] [address] uvb Dermatology Comment on above: uvb Start: 09-22-2024 End: 09-22-2024 Nursing evaluation of patient and report 09/22/2024 4:40 PM EST Nurse Visit Dermatology [address] [place] [address] Rej, Nurse Derm [facility] [address] [place] [address] uvb Dermatology Comment on above: uvb Start: 09-20-2024 Advance Directive Discussion Advance Directive Discussion [facility] Start: 09-19-2024 End: 12-18-2024 CBC W Auto Differential panel - Blood CBC and differential Lab Routine Fatigue, unspecified type Thrombocytosis Non-celiac gluten sensitivity Expected: 09/19/2024 (Approximate), Expires: 12/18/2024 [facility] Work Phone: Comment on above: Expected: 09/19/2024 (Approximate), Expi res: 12/18/2024 Start: 09-19-2024 End: 12-18-2024 Comprehensive metabolic 2000 panel - Serum or Plasma Comprehensive metabolic panel Lab Routine Fatigue, unspecified type Thrombocytosis Non-celiac gluten sensitivity Expected: 09/19/2024 (Approximate), Expires: 12/18/2024 [facility] Comment on above: Expected: 09/19/2024 (Approximate), Expi res: 12/18/2024 Start: 09-19-2024 End: 12-18-2024 Iron and Iron binding capacity panel - Serum or Plasma Iron and TIBC Lab Routine Fatigue, unspecified type Thrombocytosis Non-celiac gluten sensitivity Expected: 09/19/2024 (Approximate), Expires: 12/18/2024 [facility] Comment on above: Expected: 09/19/2024 (Approximate), Expi res: 12/18/2024 Start: 09-19-2024 End: 12-18-2024 Thyrotropin [Units/volume] in Serum or Plasma TSH Lab Routine Fatigue, unspecified type Thrombocytosis Non-celiac gluten sensitivity Expected: 09/19/2024 (Approximate), Expires: 12/18/2024 [facility] Comment on above: Expected: 09/19/2024 (Approximate), Expi res: 12/18/2024 Start: 09-18-2024 End: 09-18-2024 Nursing evaluation of patient and report 09/18/2024 1:20 PM EST Nurse Visit Dermatology [address] [place] [address] Rej, Nurse Derm [address] [address] uvb Dermatology Comment on above: uvb Start: 09-11-2024 End: 09-11-2024 Nursing evaluation of patient and report 09/11/2024 1:20 PM EST Nurse Visit Dermatology [address] [place] [address] Rej, Nurse Derm [address] [address] uvb Dermatology Comment on above: uvb Start: 09-08-2024 End: 09-08-2024 Nursing evaluation of patient and report 09/08/2024 4:00 PM EST Nurse Visit Dermatology [address] [place] [address] Rej, Nurse Derm [address] [address] uvb Dermatology Comment on above: uvb Start: 09-06-2024 End: 09-06-2024 Nursing evaluation of patient and report 09/06/2024 3:40 PM EST Nurse Visit Dermatology [address] [place] [address] Rej, Nurse Derm [facility] [id number] [place] [address] uvb Dermatology Comment on above: uvb Start: 09-01-2024 End: 09-01-2024 Nursing evaluation of patient and report 09/01/2024 3:40 PM EST Nurse Visit Dermatology [id number] [place] [address] Rej, Nurse Derm [facility] [address] [place] [address] uvb Dermatology Comment on above: uvb Start: 08-30-2024 End: 08-30-2024 Nursing evaluation of patient and report 08/30/2024 3:40 PM EST Nurse Visit Dermatology [address] [place] [address] Rej, Nurse Derm [facility] [address] [place] [address] uvb Dermatology Comment on above: uvb Start: 08-16-2024 End: 08-16-2024 Nursing evaluation of patient and report 08/16/2024 3:20 PM EST Nurse Visit Dermatology [address] [place] [address] Rej, Nurse Derm [facility] [id number] [place] [address] UVB Dermatology Comment on above: UVB Start: 08-14-2024 End: 08-14-2024 Patient encounter procedure 08/14/2024 4:30 PM EST Office Visit Dermatology [address] [address] [place] [address] [place] [id number] Patch test Dermatology Comment on above: Patch test Start: 08-14-2024 End: 08-14-2024 Nursing evaluation of patient and report 08/14/2024 3:20 PM EST Nurse Visit Dermatology [address] [place] [address] Rej, Nurse Derm [facility] [address] [place] [address] UVB Dermatology Comment on above: UVB Start: 08-11-2024 End: 08-11-2024 Nursing evaluation of patient and report 08/11/2024 3:20 PM EST Nurse Visit Dermatology [id number] [place] [address] Rej, Nurse Derm [address] [address] UVB Dermatology Comment on above: UVB Start: 08-09-2024 End: 08-09-2024 Nursing evaluation of patient and report 08/09/2024 3:20 PM EST Nurse Visit Dermatology [address] [place] [address] Rej, Nurse Derm [facility] [id number] [place] [address] UVB Dermatology Comment on above: UVB Start: 08-07-2024 End: 08-07-2024 Nursing evaluation of patient and report 08/07/2024 3:20 PM EST Nurse Visit Dermatology [address] [place] [address] Rej, Nurse Derm [address] [address] UVB Dermatology Comment on above: UVB Start: 08-04-2024 End: 08-04-2024 Nursing evaluation of patient and report 08/04/2024 2:40 PM EST Nurse Visit Dermatology [address] [place] [address] Rej, Nurse Derm [address] [address] UVB Dermatology Comment on above: UVB Start: 08-02-2024 End: 08-02-2024 Nursing evaluation of patient and report 08/02/2024 1:20 PM EST Nurse Visit Dermatology [address] [place] [address] Rej, Nurse Derm [address] [address] UVB Dermatology Comment on above: UVB Start: 08-02-2024 End: 08-02-2024 Patient encounter procedure 08/02/2024 9:45 AM EST Office Visit Dermatology [address] [place] [id number] Ebonie De Souza MD [address] [place] [address] follow up Dermatology Comment on above: follow up Start: 07-31-2024 End: 07-31-2024 Nursing evaluation of patient and report 07/31/2024 3:20 PM EST Nurse Visit Dermatology [id number] [place] [address] Rej, Nurse Derm [address] [address] UVB Dermatology Comment on above: UVB Start: 07-28-2024 End: 07-28-2024 Nursing evaluation of patient and report 07/28/2024 3:20 PM EST Nurse Visit Dermatology [address] [place] [address] Rej, Nurse Derm [facility] [address] [place] [address] UVB Dermatology Comment on above: UVB Start: 07-28-2024 End: 07-28-2024 Patient encounter procedure 07/28/2024 9:30 AM EST Office Visit Dermatology [address] [place] [address] Ebonie De Souza MD [address] [place] [address] fu per DrK Dermatology Comment on above: fu per DrK Start: 07-26-2024 End: 07-26-2024 Nursing evaluation of patient and report 07/26/2024 3:20 PM EST Nurse Visit Dermatology [address] [place] [address] Rej, Nurse Derm [facility] [id number] [place] [address] UVB Dermatology Comment on above: UVB Start: 07-24-2024 End: 07-24-2024 Nursing evaluation of patient and report 07/24/2024 3:20 PM EST Nurse Visit Dermatology [address] [place] [address] Rej, Nurse Derm [facility] [phone] [place] [address] UVB Dermatology Comment on above: UVB Start: 07-24-2024 End: 07-24-2024 Patient encounter procedure 07/24/2024 3:00 PM EST Office Visit [facility] [address] [place] [id number] Benedicto Lan, DO [address] [place] [address] Chronic eczema [facility] Comment on above: Chronic eczema Start: 07-24-2024 End: 07-24-2025 DXA Skeletal system Views for bone density DEXA bone density Imaging Routine Postmenopausal state Expected: 07/24/2024 (Approximate), Expires: 07/24/2025 [facility] Work Phone: Comment on above: Expected: 07/24/2024 (Approximate), Expi res: 07/24/2025 Start: 07-24-2024 End: 09-23-2025 MG Breast - bilateral Diagnostic Bilateral diagnostic mammogram Imaging Routine Bilateral breast cysts Expected: 07/24/2024 (Approximate), Expires: 09/23/2025 [facility] Work Phone: Comment on above: Expected: 07/24/2024 (Approximate), Expi res: 09/23/2025 Start: 07-24-2024 End: 07-24-2025 US for US PELVIS-TRANSVAG IF INDICATED Imaging Routine Uterine cyst Expected: 07/24/2024 (Approximate), Expires: 07/24/2025 [facility] Comment on above: Expected: 07/24/2024 (Approximate), Expi res: 07/24/2025 Start: 07-24-2024 End: 07-24-2024 Nursing evaluation of patient and report 07/24/2024 8:20 AM EST Nurse Visit Dermatology [address] [place] [address] Rej, Nurse Derm [facility] [address] [place] [address] UVB Dermatology Comment on above: UVB Start: 07-21-2024 End: 07-21-2024 Nursing evaluation of patient and report 07/21/2024 3:00 PM EDT Nurse Visit Dermatology [id number] [place] [address] Rej, Nurse Derm [address] [address] UVB Dermatology Comment on above: UVB Start: 07-20-2024 Medicare Annual Wellness (AWV) Medicare Annual Wellness (AWV) [facility] Start: 07-19-2024 End: 07-19-2024 Nursing evaluation of patient and report 07/19/2024 3:20 PM EDT Nurse Visit Dermatology [address] [place] [address] Rej, Nurse Derm [address] [address] UVB Dermatology Comment on above: UVB Start: 07-17-2024 End: 07-17-2024 Nursing evaluation of patient and report 07/17/2024 2:40 PM EDT Nurse Visit Dermatology [address] [place] [address] Rej, Nurse Derm [address] [address] UVB Dermatology Comment on above: UVB Start: 07-14-2024 End: 07-14-2024 Nursing evaluation of patient and report 07/14/2024 3:20 PM EDT Nurse Visit Dermatology [address] [place] [address] Rej, Nurse Derm [address] [address] UVB Dermatology Comment on above: UVB Start: 06-28-2024 End: 06-28-2024 Patient encounter procedure 06/28/2024 10:20 AM EDT Office Visit Dermatology [address] [address] Isa Wyman MD [address] [place] [address] extended complex med visit Dermatology Comment on above: extended complex med visit Start: 05-29-2024 End: 05-29-2024 Patient encounter procedure 05/29/2024 2:30 PM EDT Office Visit Dermatology [address] [place] [address] Ebonie De Souza MD [address] [place], [place] [phone] Rash worsening Dermatology Comment on above: Rash worsening Start: 05-21-2024 Covid-19 Vaccine () Covid-19 Vaccine () [facility] Start: 05-21-2024 Covid-19 Vaccine () Covid-19 Vaccine () [facility] Start: 05-21-2024 Influenza vaccination [facility] Start: 05-05-2024 End: 05-05-2024 Patient encounter procedure 05/05/2024 1:00 PM EDT Office Visit Dermatology [address] [place] [address] Ebonie De Souza MD [address] [place] [address] Rash follow up Dermatology Comment on above: Rash follow up Start: 05-02-2024 End: 08-01-2024 CBC W Auto Differential panel - Blood COMPLETE BLOOD COUNT AND DIFFERENTIAL Lab Routine Rash and nonspecific skin eruption Expected: 05/02/2024, Expires: 08/01/2024 [facility] Work Phone: Comment on above: Expected: 05/02/2024, Expires: Start: 05-02-2024 End: 08-01-2024 Comprehensive metabolic 2000 panel - Serum or Plasma COMPREHENSIVE METABOLIC PANEL Lab Routine Rash and nonspecific skin eruption Expected: 05/02/2024, Expires: 08/01/2024 [facility] Comment on above: Expected: 05/02/2024, Expires: Start: 04-08-2024 [facility] Start: 04-04-2024 Bacteria identified in Blood by Culture [facility] Start: 04-04-2024 Blood culture for bacteria, including anaerobic screen Blood Culture [facility] Start: 03-15-2024 Colon cancer screen colonoscopy Colon cancer screen colonoscopy [place], [place] Start: 11-21-2023 Screening for malignant neoplasm of breast [facility] Start: 09-20-2023 Advance Directive Discussion Advance Directive Discussion [facility] Start: 05-21-2023 Covid-19 Vaccine () Covid-19 Vaccine () [facility] Start: 05-05-2021 Breast cancer screen Breast cancer screen [place], [place] Start: 2020 Fall Risk Screening Fall Risk Screening [facility] Future Ad Labs [facility] Start: 2020 Pneumococcal Vaccine: 65+ (1 of 1 - PCV) Pneumococcal Vaccine: 65+ (1 of 1 - PCV) [facility] Start: 2020 Pneumococcal Vaccine: 65+ Years (1 of 1 - PCV) Pneumococcal Vaccine: 65+ Years (1 of 1 - PCV) [facility] Start: 2020 Screening for osteoporosis Bone Density Screening [facility] Start: 09-20-2020 Medicare Annual Wellness Visit Medicare Annual Wellness Visit [facility] Start: 03-15-2020 Screening for malignant neoplasm of colon [facility] Start: 05-21-2019 Influenza vaccination Flu vaccine (#1) [place], [place] Start: 2015 RSV Vaccine (1 - 1-dose 60+ series) RSV Vaccine (1 - 1-dose 60+ series) [facility] Start: 2015 RSV Vaccine (1 - Risk 60-74 years 1-dose series) RSV Vaccine (1 - Risk 60-74 years 1-dose series) [facility] Start: 2005 Pneumococcal Vaccine: 50+ (1 of 1 - PCV) Pneumococcal Vaccine: 50+ (1 of 1 - PCV) [facility] Start: 2005 Shingles Vaccine (1 of 2) Shingles Vaccine (1 of 2) [place], [place] Start: 2000 Diabetes Screening Diabetes Screening [facility] Start: 2000 Lipid panel Lipid Screening [facility] Start: 2000 Screening for malignant neoplasm of colon [facility] Start: 1995 Lipid screen Lipid screen [place], [place] Start: 1976 Cervical cancer screen Cervical cancer screen [place], [place] Start: 1974 DTaP,Tdap and Td Vaccines (1 - Tdap) DTaP,Tdap and Td Vaccines (1 - Tdap) [facility] Start: 1974 DTaP/Tdap/Td vaccine (1 - Tdap) DTaP/Tdap/Td vaccine (1 - Tdap) [place] Start: 1974 Urine microalbumin profile DTaP,Tdap,Td Vaccine (1 - Tdap) [facility] Start: 1973 Adult BMI Screening Adult BMI Screening [facility] tem Start: 1973 Anxiety Screening Anxiety Screening [facility] Start: 1973 Depression Screening Depression Screening [facility] Start: 1973 Hepatitis C screening Hepatitis C Screening [facility] Start: 1970 HIV screen HIV screen [place], [place] Start: 1967 Depression Screening Depression Screening [facility] Start: 1967 Tobacco Screening Tobacco Screening [facility] tem Start: 1955 Hepatitis C screen Hepatitis C screen [place], [place] Start: 1955 Screening for malignant neoplasm of colon [facility] Albumin/Globulin ratio [facility] Anion gap measurement [facility] Basophils [#/volume] in Blood by Automated count [facility] Basophils/100 leukocytes in Blood by Automated count [facility] Cancer Ag 125 [Units/volume] in Serum or Plasma [facility] Cancer Ag 125 [Units/volume] in Serum or Plasma [facility] Comprehensive metabo lic 1999 panel - Serum or Plasma Comprehensive metabolic panel Lab Routine 09/26/2024 10:43 AM EST [facility] Work Phone: Comprehensive metabo lic 1999 panel - Serum or Plasma [facility] Comprehensive metabo lic 1999 panel - Serum or Plasma [facility] Comprehensive metabo lic 1999 panel - Serum or Plasma [facility] Comprehensive metabo lic 1999 panel - Serum or Plasma [facility] Comprehensive metabo lic 1999 panel - Serum or Plasma [facility] CT Abdomen and Pelvi s W contrast IV [facility] End: 04-27-2026 ECG COMPLETE ECG COMPLETE ECG Routine Carcinomatosis peritonei (HCC) 1 Occurrences starting 04/27/2025 until 04/27/2026 [facility] Work Phone: Comment on above: 1 Occurrences starting 04/27/2025 until 04/27/2026 Eosinophils/100 leukocytes in Blood by Automated count [facility] Erythrocyte distribution width [Ratio] by Automated count [facility] Erythrocytes [#/volu me] in Blood [facility] Globulin [Mass/volum e] in Serum [facility] Glomerular filtratio n rate [Volume Rate/Area] in Serum, Plasma or Blood by Creatinine [facility] Hematocrit [Volume Fraction] of Blood [facility] Hemoglobin [Mass/volume] in Blood [facility] Homogenous nuclear A b pattern [Titer] in Serum [facility] Iron and Iron bindin g capacity panel - Serum or Plasma Iron Lab Routine 09/26/2024 10:43 AM EST [facility] Iron and Iron bindin g capacity panel - Serum or Plasma Iron and TIBC Lab Routine 06/18/2025 3:40 PM EDT [facility] Iron binding capacit y [Mass/volume] in Serum or Plasma [facility] Iron saturation [Mas s Fraction] in Serum or Plasma [facility] Leukocytes [#/volume ] corrected for nucleated erythrocytes in Blood by Automated coun [facility] Leukocytes [#/volume ] in Blood [facility] Lymphocytes [#/volum e] in Blood by Automated count [facility] Lymphocytes/100 leukocytes in Blood by Automated count [facility] MCH [Entitic mass] b y Automated count [facility] MCHC [Mass/volume] b y Automated count [facility] MCV [Entitic volume] by Automated count [facility] Monocytes [#/volume] in Blood by Automated count [facility] Monocytes/100 leukocytes in Blood by Automated count [facility] Neutrophils [#/volum e] in Blood by Automated count [facility] Neutrophils/100 leukocytes in Blood by Automated count [facility] Nuclear Ab [Titer] i n Serum [facility] Nucleated erythrocyt es [Presence] in Blood by Automated count [facility] Patient Education [facility] Work Phone: Patient referral [facility] Work Phone: PHOTOTHERAPY PHOTOTHERAPY Pro cedures Routine Spongiotic dermatitis Ordered: 06/20/2024 [facility] Work Phone: Comment on above: Ordered: 06/20/2024 Platelet mean volume [Entitic volume] in Blood by Automated count [facility] Platelets [#/volume] in Blood [facility] Radionuclide gastric emptying study [facility] REFER FOR ADMIT INTERVIEW REFER FOR ADMIT INTERVIEW Procedures Routine Carcinomatosis peritonei (HCC) Ordered: 04/27/2025 [facility] Comment on above: Ordered: 04/27/2025 Rheumatoid factor [Units/volume] in Serum or Plasma [facility] THIN PREP TIS PAP AN D HR HPV DNA THIN PREP TIS PAP AND HR HPV DNA Pathology and Cytology Routine Well woman exam with routine gynecological exam Ordered: 07/24/2024 [facility] Comment on above: Ordered: 07/24/2024 TOTAL IRON BINDING CAPACITY TOTAL IRON BINDING CAPACITY Lab Routine 09/26/2024 10:43 AM EST [facility] End: 11-09-2025 XR Pelvis and Hip - right AP and Lateral frog XR HIP GENERAL 3V PELV/AP/LAT RIGHT Radiology Routine Primary osteoarthritis of right hip 1 Occurrences starting 10/10/2024 until 11/09/2025 [facility] Work Phone: Comment on above: 1 Occurrences starting 10/10/2024 until 11/09/2025 [facility] Immunizations Immunization Date Immunization Notes Care Provider [facility] 03-08-2020 zoster vaccine recombinant Vandana Steele MD Work Phone: [facility] 11-27-2019 zoster vaccine recombinant Vandana Steele MD Work Phone: [facility] Payers Date Payer Category Payer Self-pay [id number] 2020 Commercial Managed C are - POS [employer] [id number] 2020 Medicare [id number] 2020 Private Health Insurance [id number] .[id number] 2014 Unknown [id number] 2014 Unknown [employer] xxxxxxxxx 2014-Present [phone] [address] [place] [address] xxxxxxxxx [id number] .[id number] 1959 Medicare [id number] 1959 Private Health Insurance I [id number] 1955 Unknown [id number] 2.16.840.1.912772.3.579 .2.173 1955 Unknown [id number] 2.16.840.1.407537.3.579 .2.173 1955 Unknown [id number] 2.16.840.1.280280.3.579 .2.173 1955 Unknown [id number] 2.16.840.1.707531.3.579 .2.173 1955 Unknown [id number] 2.16.840.1.478505.3.579 .2.356 1955 Unknown [id number] 2.16.840.1.137456.3.579 .2.593 1955 Unknown [id number] 2.16.840.1.790666.3.579 .2.593 1955 Unknown [id number] 2.16.840.1.496015.3.579 .2.593 1955 Unknown [id number] 2.16.840.1.904670.3.579 .2.1259 1955 Unknown [id number] 2.16.840.1.090406.3.579 .2.1259 1955 Unknown [id number] 2.16.840.1.669625.3.579 .2.1259 1955 Unknown [id number] 2.16.840.1.024768.3.579 .2.1259 1955 Unknown [id number] 2.16.840.1.364332.3.579 .2.1259 1955 Unknown [id number] 2.16.840.1.675531.3.579 .2.1259 1955 Unknown [id number] 2.16.840.1.375589.3.579 .2.1259 1955 Unknown [id number] 2.16.840.1.663595.3.579 .2.1259 1955 Unknown [id number] 2.16.840.1.610535.3.579 .2.1259 1955 Unknown [id number] 2.16.840.1.952316.3.579 .2.727 Unknown Unknown [id number] 2.16.840.1.437534.3.579 .2.531 Unknown [id number] 2.16.840.1.289124.3.579 .2.531 Unknown [id number] 2.16.840.1.629177.3.579 .2.531 Unknown [id number] 2.16.840.1.780787.3.579 .2.531 Unknown [id number] 2.16.840.1.001041.3.579 .2.531 Unknown [id number] 2.16.840.1.492873.3.579 .2.531 Unknown [id number] 2.16.840.1.715353.3.579 .2.531 Unknown [id number] 2.16.840.1.370882.3.579 .2.531 Unknown [id number] 2.16.840.1.033000.3.579 .2.531 Social History Date Type Detail Facility Start: 03-20-2019 End: 06-25-2023 Tobacco smoking status NHIS Never smoker [facility] Start: 03-20-2019 End: 12-13-2024 Alcohol intake Yes [place] Start: 03-15-2019 Alcohol Comment social [place] Start: 1955 Sex Assigned At Not on file [place] Start: 1955 Sex Assigned At Female [facility] Start: 08-24-2019 End: 06-25-2023 Tobacco use and exposure Smokeless tobacco non-user [facility] Start: 08-24-2019 End: 05-23-2025 Alcohol intake Current drinker of alcohol (finding) [facility] Start: 08-24-2019 End: 12-13-2024 History of Social function [facility] How often to you hav e a drink containing alcohol? 2-4 times a month [facility] Start: 08-16-2019 How many standard drinks containing alcohol do you have on a typical day? Not asked [facility] Start: 06-25-2023 Alcohol Comment occasionally [facility] Start: 09-27-2024 End: 02-19-2025 Sex Female (finding) [facility] consumption [facility] How often to you hav e a drink containing alcohol? Never [facility] Start: 05-01-2025 Gender identity Identifies as female gender (finding) [facility] Sexual Orientation [facility] Magi Goals Date Patient Goal Desired Activity /State Functional Status Date Assessment Result Facility 05-01-2025 Total score [AUDIT-C] 0 05/01/20 25 2:13 PM EDT Tracy De Guzman PA-C [facility] Clinical Notes 04-24-2024 to 06-05-2025 Telephone Encounter - Tammy Matthews LPN - 06/05/2025 4:46 PM EDTTelephone Encounter - Tammy Matthews LPN - 06/05/2025 4:46 PM EDTRJuan velez MD - 05/29/2025 3:30 PM EDTPatient Instructions Note Date & Type Note Facility 06-05-2025 Telephone encounter Note Left message for Roya Held to call office back Tammy Matthews LPN [facility] 06-05-2025 Miscellaneous Notes Left message for Roya Held to call office back Tammy Matthews LPN documented in this encounter [facility] 06-04-2025 Hospital Discharg e instructions Patient Education 06/04/2025 10:59:50 Ureteral Stent Implantation Ureteral Stent Implantation Ureteral stent implantation is a procedure to insert (implant) a flexible, soft, plastic tube (stent) into a ureter. Ureters are the tubelike parts of the body that drain urine from the kidneys. A ureteral stent may be implanted: After a procedure to remove a blockage from the ureter (ureterolysis or pyeloplasty). To open the flow of urine when [...] months. Tell a health care provider about: Any allergies you have. All medicines you are taking, including vitamins, herbs, eye drops, creams, and dcje-qqs-nllntsv medicines. Any problems you or family members have had with anesthetic medicines. Any bleeding problems you have. Any surgeries you have had. Any medical conditions you have. Whether you are or may be . What are the risks? Generally, this is a safe procedure. However, problems may occur, including: Infection. Bleeding. Allergic reactions to medicines. Damage to nearby structures or organs, such as tearing (perforation) of the ureter. Movement of the stent away from where it is placed during surgery (migration). Buildup of a crust or hard coating (encrustation) on the stent. This happens when bacteria in the body form crystals on the stent, causing it to weaken. What happens before the procedure? Medicines Ask your health care provider about: Changing or stopping your regular medicines. These include any diabetes medicines or blood thinners you take. Taking medicines such as aspirin and ibuprofen. These medicines can thin your blood. Do not take them unless your health care provider tells you to. Taking iply-cuh-fuvrcoy medicines, vitamins, herbs, and supplements. When to stop eating and drinking Follow instructions from your health care provider about what you may eat and drink. These may include: 8 hours before your procedure ?Stop eating most foods. Do not eat meat, fried foods, or fatty foods. ?Eat only light foods, such as toast or crackers. ?All liquids are okay except energy drinks and alcohol. 6 hours before your procedure ?Stop eating. ? Drink only clear liquids, such as water, clear fruit juice, black coffee, plain tea, and sports drinks. ?Do not drink energy drinks or alcohol. 2 hours before your procedure ?Stop drinking all liquids. ?You may be allowed to take medicines with small sips of water. If you do not follow your health care provider's instructions, your procedure may be delayed or canceled. General instructions Do not use any products that contain nicotine or tobacco for at least 4 weeks before the procedure. These products include cigarettes, chewing tobacco, and vaping devices, such as e-cigarettes. If you need help quitting, ask your health care provider. You may have an exam or testing, such as imaging or blood tests. If you will be going home right after the procedure, plan to have a responsible adult: ?Take you home from the hospital or clinic. You will not be allowed to drive. ?Care for you for the time you are told. Ask your health care provider what steps will be taken to help prevent infection. These steps may include: ?Removing hair at the surgery site. ?Washing skin with a soap that kills germs. ?Taking antibiotic medicine. What happens during the procedure? An IV will be inserted into one of your veins. You may be given: ?A medicine to help you relax (sedative). ?A medicine to make you fall asleep (general anesthetic). A thin, tube-shaped instrument with a light and tiny camera at the end (cystoscope) will be inserted into your urethra. The urethra is the part of your body that drains urine from the bladder. The urethra opens at the end of the penis or in front of the vaginal opening. The cystoscope will be passed into your bladder. Guided imagery using X-ray may be used to pass a thin wire (guide wire) through your bladder and into your ureter. This wire is used to guide the stent into your ureter. The stent will be inserted into your ureter. The guide wire and the cystoscope will be removed. A thin, flexible tube (catheter) may be put through your urethra so that one end is in your bladder. This helps to drain urine from your bladder. The procedure may vary among hospitals and health care providers. What happens after the procedure? Your blood pressure, heart rate, breathing rate, and blood oxygen level will be monitored until you leave the hospital or clinic. You may continue to get medicine and fluids through an IV. You may have some soreness or pain in your abdomen and urethra. You may be given medicines for this. You will be encouraged to get up and walk around as soon as you can. You may have a catheter draining your urine. Summary Ureteral stent implantation is a procedure to insert a flexible, soft, plastic tube (stent) into a ureter. You may have a stent implanted to support the ureter while it heals after a procedure or to open the flow of urine if there is a blockage. You may have a stent for just a few weeks, or you may have a long-term stent that will need to be replaced every few months. Follow instructions from your health care provider about taking medicines and about eating and drinking before the procedure. This information is not intended to replace advice given to you by your health care provider. Make sure you discuss any questions you have with your health care provider. Document Revised: 10/12/2022 Document Reviewed: 10/12/2022 [employer] Patient Education 2023 [employer]. 06/04/2025 10:53:06 Hydronephrosis Hydronephrosis Hydronephrosis is the swelling of one [...] bladder (ureters). In adults, common causes include: Kidney stones. . A tumor or cyst in the abdomen or pelvis. An enlarged prostate gland. Other causes include: Bladder infection. Scar tissue from a previous surgery or injury. A blood clot. Cancer of the prostate, bladder, uterus, ovary, or colon. What are the signs or symptoms? Symptoms of this condition include: Pain or discomfort in your side (flank) or abdomen. Swelling in your abdomen. Nausea and vomiting. Fever. Pain when passing urine. Feelings of urgency when you need to urinate. Urinating more often than normal. In some cases, you may not have any symptoms. How is this diagnosed? This condition may be diagnosed based on: Your symptoms and medical history. A physical exam. Blood and urine tests. Imaging tests, such as an ultrasound, CT scan, or MRI. A procedure to look at your urinary tract and bladder by inserting a scope into the urethra (cystoscopy). How is this treated? Treatment for this condition depends on where the blockage is, how long it has been there, and what caused it. The goal of treatment is to remove the blockage. Treatment may include: Antibiotic medicines to treat or prevent infection. A procedure to place a small, thin tube (stent) into a blocked ureter. The stent will keep the ureter open so that urine can drain through it. A nonsurgical procedure that crushes kidney stones with shock waves (extracorporeal shock wave lithotripsy). If kidney failure occurs, treatment may include dialysis or a kidney transplant. Follow these instructions at home: Take gtuz-clc-ycmbvex and prescription medicines only as told by your health care provider. If you were prescribed an antibiotic medicine, take it exactly as told by your health care provider. Do not stop taking the antibiotic even if you start to feel better. Rest and return to your normal activities as told by your health care provider. Ask your health care provider what activities are safe for you. Drink enough fluid to keep your urine pale yellow. Keep all follow-up visits. This is important. Contact a health care provider if: You continue to have symptoms after treatment. You develop new symptoms. Your urine becomes cloudy or bloody. You have a fever. Get help right away if: You have severe flank or abdominal pain. You cannot drink fluids without vomiting. Summary Hydronephrosis is the swelling of one or both kidneys due to a blockage that stops urine from flowing out of the body. Hydronephrosis can lead to kidney failure and may become life-threatening if not treated promptly. The goal of treatment is to remove the blockage. It may include a procedure to insert a stent into a blocked ureter, a procedure to break up kidney stones, or taking antibiotic medicines. Follow your health care provider's instructions for taking care of yourself at home, including instructions about drinking fluids, taking medicines, and limiting activities. This information is not intended to replace advice given to you by your health care provider. Make sure you discuss any questions you have with your health care provider. Document Revised: 12/24/2020 Document Reviewed: 12/24/2020 [employer] Patient Education 2023 [employer]. Follow Up Care 05/25/2025 14:20:53 With:IRMA BRONSON, Carlin Lawton, URL Address: [address] [place] [phone] When: Unknown Comments:Jered coles stent placement [facility] 06-04-2025 Note Patient Education Urology Ureteral Stent Implantation Ureteral [...] including vitamins, herbs, eye drops, creams, and gwez-zys-vpndnne medicines. ??? Any problems you or family [...] care provider tells you to. ??? Taking bglv-ubs-wgikysi medicines, vitamins, herbs, and supplements. When to [...] This helps to drain urine from your blad (more content not included)... [facility] 05-29-2025 History of Presen t illness Narrative Images from the original note were not included. Gynecologic Oncology [facility] Follow Up Re: Mirian Corrales [facility]#: [id number] Date of service:05/29/2025 Clarence Vines DO Dear Clarence: Briefly, she is a 69 year old [...] of ovarian cancer, she presented to her ADMINISTRATIVE SUPPORT COORDINATOR on upon breast exam a right axillary node was enlarged, she was sent for an US and biopsy which showed possible ADMINISTRATIVE SUPPORT COORDINATOR malignancy metastases. She presents today to establish care with hedis abstractor oncology. 08/24/2022 INVITAE TESTIN11/23/2024 Small Bowel Biopsy: [...] for chemotherapy so authorization for treatment at [facility] can be initiated. - Patient to follow-up with Dr. Evangelista at [facility] to start treatment. 2. Ovarian cancer [...] and calcified nodule, negative for carcinoma 05/14/2025 [facility] 1. Final pathology is still pending. Will notify patient of results once available by A2B. 2. Postop restrictions and wound care reviewed. [...] Size: Regular Adult) Pulse 80 Temp 36.8 C (98.2 F) (Temporal) Wt 48.8 kg (107 lb 9.4 oz) SpO2 98% BMI 17.36 kg/m Abdominal - Incision well-healed, without evidence of [...] Recommended switching from Taxol to Taxotere 60 mg/m due to neuropathy; discussed that Taxotere is [...] BRCA VUS at the recommendation of the Photogrammetrist. Provider Attestation: I, Juan Whalen MD, personally [...] by Juan Whalen M.D. Recording using ambient LivePerson software for draft documentation of the visit was discussed with the patient/authorized sales representative raw fibers; all questions welcomed and answered. Patient/authorized sales representative raw fibers agreed to proceed CC: Conner Stanley DO (PCP) The previous note from Dr Whalen on was copied forward and the necessary changes were made above. documented in this encounter [facility] 05-29-2025 Note [facility] 05-28-2025 Progress note [facility] 05-14-2025 History of Present illness Narrative TELEVISIT PROGRESS NOTE I have communicated my name and active licensure. The patient's identity and physical location were verified at the time of this visit. Either the patient or their legal sales representative raw fibers has been informed of the risks and benefits of -- and alternatives to -- treatment through a remote evaluation and consents to proceed with the evaluation remotely. This is a telephone encounter initiated for an established patient, parent or guardian not originating from a related Evaluation & Management service provided within the previous 7 days nor leading to an Evaluation & Management service or procedure within the next 24 hours or soonest available appointment. Patient name and birthday verified: Yes Location of patient: Home Persons Present: patient DATE OF SERVICE: 05/14/2025 PROBLEM: Mirian Corrales presents for postop televisit. SURGERY & DATE: 05/09/2025 Laparoscopic BSO, resection of right [...] notify patient of results once available by A2B. 2. Postop restrictions and wound care reviewed. 3. Follow up with Dr. Whalen as planned on 05/29/2025. Call sooner if any questions or concerns. Appointments for Next 60 Days Date Time Provider Location Dept Phone 05/14/2025 11:00 AM ALIYAH RITCHIE [facility] [phone] 05/29/2025 3:30 PM JUAN WHALEN [facility] [phone] Aliyah Ritchie APRN.CNP I spent a total of 10 minutes on the date of the service which included completing clinical documentation, obtaining and/or reviewing separately obtained history, and counseling and educating the patient/family/caregiver. documented in this encounter [facility] 05-14-2025 Note [facility] 05-09-2025 Note [facility] 05-09-2025 Note [facility] 05-07-2025 Note [facility] 05-07-2025 History of Present illness Narrative Attempted to reach patient for nurse teaching, LM on VM and will attempt again. Emily Trujillo RN May 07, 2025 8:40 AM 2nd attempt to reach patient, LM on VM and will attempt again. Emily Trujillo RN May 07, 2025 8:55 AM DATE OF SERVICE: 05/07/2025 PROBLEM: Mirian Corrales [...] patient have an advanced directive: No Does [facility] have a copy of the patient's advanced [...] prescribed by anesthesia, internal medicine, surgeon, or WOOD HACKER Stop NSAIDs, Aspirin (ASA), vitamins, herbal supplements, [...] jewelry, body piercing, makeup, contacts, lotions, nail lithuanian on fingers, or anything in hair on arrival to surgery Wear low healed shoes and loose fitting clothing Leave all valuables at home or with a family member Directions to [facility] and [facility] Parking/parking validation on the day prior to surgery Admission/check in ([facility] Holding area Placement of [...] - IV pain medication after surgery, IV SATELLITE COMMUNICATIONS ENGINEER if ordered by MD, discharged home with [...] please send any FMLA papers to physician's secretary office clerk. SYMPTOMS TO NOTIFY MD - Fever, chills, nausea, vomiting, increased or severe pain, heavy vaginal bleeding, foul smelling vaginal drainage, pain or swelling in extremities. URGENT SYMPTOMS - Call 911 or go to ER if any shortness of breath, difficulty breathing, or chest pain. HOW TO CONTACT PHYSICIAN - Physician's office phone number given to patient, if after hours patient instructed to call security control center operator and ask for party plan salesperson hedis abstractor onc resident. SERAFIN program offered to patient: No, Additional teaching as indicated by patient/family learning needs. PATIENT LEARNING EVALUATION & FOLLOW UP PLAN: Patient and/or family express understanding of upcoming surgery, pre-operative preparation, the operative process, and post-operative instructions. Follow up plan: Complete - No need for follow-up Patient has a post-op appointment scheduled: Yes Referral (recommentation): None Educator: Emily Trujillo RN [facility] documented in this encounter [facility] 05-04-2025 Instructions Emily Trujillo RN - 05/04/2025 2:57 PM EDT Images from the original note were not included. ADMINISTRATIVE SUPPORT COORDINATOR ONCOLOGY PHYSICIAN CONTACT INFORMATION Surgery Scheduling Office Surgeons: Dr. Karen Johnston Dr. Claudia Segovia Dr. Conner Addison Dr. Mega Hutton Dr. Anna Diaz Dr. Ebonie Gilliland Dr. Christopher Holland Dr. Juan Whalen Dr. Stephen Mas Dr. Javy Robb Chemical Analyst Oncology Nurse Practitioners: Aliyah Ritchie, BARREL RIFLER BROACH.TIERNEY Hanks, BARREL RIFLER BROACH.TIERNEY [place] BARREL RIFLER BROACH.TIERNEY Rucker, BARREL RIFLER BROACH.TIERNEY Rader APRN.TIERNEY After 4:30 pm or on holidays or weekends, call: or . Ask the security control center operator to page the hedis abstractor oncologist party plan salesperson. PRE-OPERATIVE CHECKLIST: PATIENT INSTRUCTIONS PRIOR TO SURGERY [...] THESE MEDICATIONS 7 DAYS PRIOR TO SURGERY: (Motrin/ibuprofen/Naproxen/Aleve/Advil ), Aspirin, vitamin E, herbal medications, diet pills, and tvfu-afr-umfawio medications. Tylenol (acetaminophen) is okay. I will not wear jewelry, body piercing(s), makeup, nail lithuanian, hairpins, or contacts on the day of [...] my surgeon. Discuss medication changes with your marine meteorologist or primary care physician as well. If I stopped taking my blood-thinning medication, I will ask the surgeon when to resume taking it. If I am an outpatient, a responsible person will drive me home and it was suggested that someone stay with me for 24 hours. I understand that a drug abuse program coordinator or cabdriver is NOT a responsible caregiver. Patients with diabetes, I will not take my morning diabetes medication (pills) on the morning of surgery. If I am on insulin, someone has gone over those instructions with me for the morning of surgery. I understand if my surgery is delayed, I will notify the check in desk that I have diabetes. See the Diabetic Guidelines Before Surgery in the patient education section. If I have Obstructive Sleep Apnea and use a CPAP/BiPAP machine, I will bring my mask, tubing, and machine with me on the day of surgery. PREOP INSTRUCTIONS THE DAY OF SURGERY/CHECK IN Report to DESK -9 for surgery. A map is located in Your Surgical Guide Book. The online version of the surgical guide book can be found at: [email or web address] The address is [address] [place] [address] ANTIBIOTIC PLUS MECHANICAL BOWEL PREP Your physician [...] Your surgeon or other members of your surgeon s team will discuss any other specific medical issues related to your discharge with you. Your surgeon may order intermittent compression sleeves. These are massaging leg pumps to help prevent blood clots after surgery. [...] Your Surgical Guide Book for more information. [facility] TEAM At the [facility], we have a multidisciplinary team of caregivers that includes fellows, residents, nurse practitioners, physician assistants, clinical nurse specialists, nurses, medical assistants, patient care nursing assistants, social workers, case fitter and many others. We all have different [...] directed by your surgeon. Please contact your surgeon s office if any FMLA or other paperwork [...] disposal station (located in many of the [facility] pharmacies). Do not flush them down the [...] have any of the following symptoms: Fever (>100.4 F or 38.0 C) or chills. Incision problems such as redness, [...] communicate. Forms can be found on the [facility] Advance Directives site. You do not need a quality control coordinator to complete advance directive documents. [email or web address] advance-directives Talking about end-of-life issues is difficult, but it truly is a gift to your loved ones. We suggest using The Conversation Project (theGoMilesversationproject.org) to help guide you through discussing and [...] to your next appointment, or email to as an attachment in either PDF, TIFF, or JPEG format. You can also mail to: [facility] Health Information Management, Ab7 Advance Directive Processing [address] [place], [place] [address] documented in this encounter [facility] 05-04-2025 Note [facility] 05-04-2025 Telephone encounter Note [facility] Uploaded into scanned documents [facility] 05-04-2025 Miscellaneous Notes Received External ECG from [employer]. Uploaded into scanned documents documented in this encounter [facility] 05-01-2025 Telephone encounter Note Called and spoke to Net the pharmacy cashier at [facility]. Net needing clarification of how the patient is to take her antibiotic prior to surgery as the full prescription is not visible. Informed Net that the patient needs to take 4 tabs-2000 mg of the 500 mg at 7 pm and 4 tabs (2000 mg) at 11 pm the day prior to surgery. Net voices that she will get that taken care of. Maddison Estes RN Gyn/Onc Speech Therapist [facility] 05-01-2025 Instructions Tracy De Guzman PA-C - 05/01/2025 2:30 PM EDT Images from the original note were not included. [facility] PATIENT PREOPERATIVE INSTRUCTIONS Juan Whalen MD has scheduled you for your procedure at this surgery center: [facility] Scheduling Office: [phone] --[address], [place] [address]. Please read below carefully for your personalized instructions. Dietary Restrictions: - No solid food after midnight. - You may have 12 ounces of clear liquids (water, clear juices such as apple juice or gatorade, carbonated beverages, clear tea, black coffee, jello) until 2 hours before scheduled arrival at facility. Medications: Unless instructed differently below, stay on all of your medications until your surgery. If you start any new medications after today's visit, please contact your surgeon. Please take the following medications the morning of surgery with a sip of water: none If you start any new medications after today's visit, please contact the surgeon's office. If you are currently using a nbuu-oha-exhy injectable or oral medication for diabetes or weight loss such as Dulaglutide (Trulicity), Exenatide (Byetta, Bydureon), Liraglutide (Victoza, Saxenda), Semaglutide (Ozempic, Wegovy, Rybelsus), or Tirzepatide (Mounjaro), the medicine should be stopped at least 7 days before surgery. These medicines can cause food to remain in your stomach for a very long time and increase the risks from surgery and anesthesia. Not stopping the medication for a long enough time may result in your surgery being rescheduled. Blood Thinning Medications: - Stop NSAIDS (Ibuprofen, Advil, Aleve, Motrin, Celebrex, Mobic, etc.) 7 days before surgery, as directed by your surgeon. - Stop Aspirin 7 days before surgery, as directed by your surgeon. - Stop ALL herbal and dietary supplements 7 days before surgery. - You may take Tylenol (Acetaminophen) or any of your pain medications that do not contain aspirin or NSAIDS as needed. - You can remain on the following vitamin(s) or supplement(s), except do not take morning of surgery: Calcium, vitamin D, probiotic, magnesium Important Reminders: - If you use CPAP/BIPAP, bring the machine with you to the surgery center. - If you are prescribed inhalers for breathing, continue using them. - Candy, mints, and tobacco products are NOT permitted the morning of surgery. - Hearing aids, dentures and glasses may be worn the morning of surgery. - NO jewelry, body piercings, makeup, hairpins or contacts are to be worn the day of surgery. If you develop symptoms such as a fever, cold, or flu, or have other changes to your health within TWO DAYS of scheduled surgery or the morning of surgery, please contact the surgery center above. Personal Belongings: -Please have photo ID and insurance cards. -If you do not have a copy of advance directives on file with us, please bring a copy with you on the day of surgery. - Leave ALL valuables and money at home or with family members. - Please bring high-quality footwear, such as sneakers, to the hospital for ambulating post-surgery. For Outpatient Procedures: - YOU MUST HAVE A RESPONSIBLE PULPWOOD BUYER TAKE YOU HOME. A LADIES SUIT OPERATOR OR ASSOCIATE ORACLE RETAIL CANNOT BE MADE A RESPONSIBLE PULPWOOD BUYER. - We recommend that a responsible person stays with you overnight to take care of you. - You cannot stay in a hotel alone after outpatient surgery. You will not be permitted to have your surgery, if you do not have someone to take care of you. Arrival Time for Surgery: - To obtain your arrival time for surgery, call your physician's office the day before your surgery. - If you have received different instructions about finding out your arrival time from your surgeon, please follow those instructions. - If your surgery is scheduled for Wednesday, call the Wednesday before. Your surgeon s track watchman will tell you what time to call the office. - If you have not reached the departmental track watchman by 5 P.M., call [phone] after 5 P.M. the day before your surgery. Please be aware that emergency situations arise, which may delay or change your surgical time. If this happens, we will notify you as soon as possible and regret any inconvenience. If you already have an Advance Directive, please fax a copy to [phone] or email to for it to be added to your chart. If you do not have an Advance Directive, you can find the appropriate form and more information at [email or web address]. We recommend that you complete the Advance Directive form found on the website and bring it with you the day of your surgery. It can be witnessed and scanned into your chart that day. Tracy De Guzman PA-C [employer] fax number: [phone] documented in this encounter [facility] 05-01-2025 Miscellaneous Notes Called and spoke to Net the pharmacy cashier at [facility]. Net needing clarification of how the patient is to take her antibiotic prior to surgery as the full prescription is not visible. Informed Net that the patient needs to take 4 tabs-2000 mg of the 500 mg at 7 pm and 4 tabs (2000 mg) at 11 pm the day prior to surgery. Net voices that she will get that taken care of. Maddison Estes RN Gyn/Onc Speech Therapist documented in this encounter [facility] 05-01-2025 History and physical note Images from the original note were not included. [facility] HISTORY AND PHYSICAL EXAMINATION SERVICE DATE: 05/01/2025 SERVICE TIME: 5:20 PM PRIMARY CARE PHYSICIAN: Conner Stanley DO Assessment Patient has the following medical conditions which may affect zoey-operative course: PONV (postoperative nausea and vomiting) Assessment: [...] BMI less than or equal to 35 kg/m^2 Does not have a large neck Non-male patient STOP-Bang Score: 2 I - PHYSICAL EVALUATION AIRWAY Patient intubated: No. Tracheostomy tube not present Mallampati: III. TM distance: >3 FB. Neck ROM: full ROM without neurological symptoms. Mouth opening: adequate. Short neck: no. Additional comments: +TMJ: hx clicking or locking. Thick neck: no Art present: no Lip Bite Test: II Microretrognathia/Micronagthia/Recesse d Chin: No DENTAL Dental findings: teeth intact. II - ANESTHESIA PLAN Anesthetic plan additional comments: - anesthesia choice. Beta Virgilio Monitoring Plan Post Procedure Analgesic Plan Prepared for Surgery: optimally prepared for surgery, pending [see comment]. Patient reports she is planning on getting her pre-op ECG locally and faxing to [facility]. I provided her with [facility] fax number. CONSULTS: Patient does not require consults for optimization at this time Planned Anesthetic: anesthesia choice The Following Tests/Procedures Have Been Initiated: ECG to be done This is a virtual visit using A2B video visit. It required patient-provider interaction for [...] virtual visit. The visit was conducted using A2B video visit. It required patient-provider interaction for the medical decision making as documented below. I have communicated my name and active licensure. The patient's identity and physical location were verified at the time of this visit. Either the patient or their legal sales representative raw fibers has been informed of the risks and [...] chest pain, CHF, DVT/PE, hyperlipidemia, hypertension, recent LA, PTCA and open heart surgery. GI: Negative for: dysphagia, GERD, GI bleed <30 days, liver disease and ETOH >2 drinks/day. : Negative for: dysuria, frequent urination, hematuria, urinary incontinence, nephrolithiasis and renal failure. ADMINISTRATIVE SUPPORT COORDINATOR: Negative for abnormal vaginal bleeding, abnormal vaginal [...] (1.68m) Wt 106 lb (48.1kg) BMI 17.12 kg/(m^2). Diagnostic tests reviewed for today's visit: Lab [...] 384 QTC Calculation (Bazett) 446 Calculated P [place] 78 Calculated R [place] 51 Calculated T [place] 33 Impression SINUS RHYTHM WITH SHORT OR OTHERWISE NORMAL ECG Confirmed by LUIS ERNIQUE JIMENEZ MD ([id number]) on 05/30/2024 11:43:07 PM No results found for this or any previous visit (from the past 70308 hours). Instructions Given to Patient: Instructions located in the after visit summary. Patient given verbal and written preop instructions and voices comprehension and compliance. SIGNATURE: Tracy De Guzman PA-C PATIENT NAME: Mirian Corrales DATE: May 01, 2025 TIME: 2:04 PM PAGER/CONTACT #: [1] Social History Tobacco Use Smoking status: Never Smokeless tobacco: Never Vaping Use Vaping status: Never Used Substance Use Topics Alcohol use: Yes Drug use: Never [facility] 05-01-2025 History and physical note Images from the original note were not included. [facility] HISTORY AND PHYSICAL EXAMINATION SERVICE DATE: 05/01/2025 SERVICE TIME: 5:20 PM PRIMARY CARE PHYSICIAN: Conner Stanley DO Assessment Patient has the following medical conditions which may affect zoey-operative course: PONV (postoperative nausea and vomiting) Assessment: [...] BMI less than or equal to 35 kg/m^2 Does not have a large neck Non-male patient STOP-Bang Score: 2 I - PHYSICAL EVALUATION AIRWAY Patient intubated: No. Tracheostomy tube not present Mallampati: III. TM distance: >3 FB. Neck ROM: full ROM without neurological symptoms. Mouth opening: adequate. Short neck: no. Additional comments: +TMJ: hx clicking or locking. Thick neck: no Art present: no Lip Bite Test: II Microretrognathia/Micronagthia/Recesse d Chin: No DENTAL Dental findings: teeth intact. II - ANESTHESIA PLAN Anesthetic plan additional comments: - anesthesia choice. Beta Virgilio Monitoring Plan Post Procedure Analgesic Plan Prepared for Surgery: optimally prepared for surgery, pending [see comment]. Patient reports she is planning on getting her pre-op ECG locally and faxing to [facility]. I provided her with [employer] fax number. CONSULTS: Patient does not require consults for optimization at this time Planned Anesthetic: anesthesia choice The Following Tests/Procedures Have Been Initiated: ECG to be done This is a virtual visit using A2B video visit. It required patient-provider interaction for [...] virtual visit. The visit was conducted using A2B video visit. It required patient-provider interaction for the medical decision making as documented below. I have communicated my name and active licensure. The patient's identity and physical location were verified at the time of this visit. Either the patient or their legal sales representative raw fibers has been informed of the risks and [...] chest pain, CHF, DVT/PE, hyperlipidemia, hypertension, recent LA, PTCA and open heart surgery. GI: Negative for: dysphagia, GERD, GI bleed <30 days, liver disease and ETOH >2 drinks/day. : Negative for: dysuria, frequent urination, hematuria, urinary incontinence, nephrolithiasis and renal failure. ADMINISTRATIVE SUPPORT COORDINATOR: Negative for abnormal vaginal bleeding, abnormal vaginal [...] (1.68m) Wt 106 lb (48.1kg) BMI 17.12 kg/(m^2). Diagnostic tests reviewed for today's visit: Lab [...] 384 QTC Calculation (Bazett) 446 Calculated P [place] 78 Calculated R [place] 51 Calculated T [place] 33 Impression SINUS RHYTHM WITH SHORT OR OTHERWISE NORMAL ECG Confirmed by BARBARA BRONSON, LUIS ENRIQUE ([id number]) on 05/30/2024 11:43:07 PM No results found for this or any previous visit (from the past 20681 hours). Instructions Given to Patient: Instructions located in the after visit summary. Patient given verbal and written preop instructions and voices comprehension and compliance. SIGNATURE: Tracy De Guzman PA-C PATIENT NAME: Mirian Corrales DATE: May 01, 2025 TIME: 2:04 PM PAGER/CONTACT #: [1] Social History Tobacco Use Smoking status: Never Smokeless tobacco: Never Vaping Use Vaping status: Never Used Substance Use Topics Alcohol use: Yes Drug use: Never documented in this encounter [facility] 05-01-2025 Telephone encounter Note DDM called, LVM requesting frequency of dosing of Neomycin. Order currently states, take as directed. [phone] [facility] 05-01-2025 Miscellaneous Notes DDM called, LVM requesting frequency of dosing of Neomycin. Order currently states, take as directed. [phone] documented in this encounter [facility] 04-27-2025 History of Present illness Narrative Radiology Service Progress Note PATIENT NAME: Mirian [...] PATIENT PRESENTS WITH AN IMPLANTABLE OR ATTACHED TAP OUT OPERATOR: No RADIOLOGY DEPARTMENT: General X-ray: Exam(s) Completed: Chest X-Ray PERIPHERAL IV DATA: Not applicable SIGNED BY: RT Scott(Jered) April 27, 2025 4:30 PM documented in this encounter [facility] 04-27-2025 Note [facility] 04-27-2025 Instructions Libby Good, BARREL RIFLER BROACH.HARNESS INSPECTOR - 04/27/2025 3:50 PM EDT Images from the original note were not included. Please visit the following website for the [facility] surgery guide. [email or web address] PATIENT SURGICAL CHECKLIST - NEXT STEPS Your surgeon's office will call you to arrange your surgery date and pre-admission testing appointments. You should receive a call within 2-5 business days from our scheduling team. (If you do not receive a call within 5 days - please call [phone]) Pre-admission testing appointments include: - Preop anesthesia [...] orders for prior to surgery if needed You will receive a call from the credit verifier the day prior to your surgery as to when and where to arrive on the day of your scheduled surgery ADMINISTRATIVE SUPPORT COORDINATOR ONCOLOGY PHYSICIAN CONTACT INFORMATION Surgery Scheduling Office Surgeons: Dr. Karen Johnston Dr. Claudia Segovia Dr. Conner Addison Dr. Mega Hutton Dr. Anna Diaz Dr. Ebonie Gilliland Dr. Christopher Holland Dr. Juan Whalen Dr. Stephen Mas Dr. Javy Robb Chemical Analyst Oncology Nurse Practitioners: Aliyah Ritchie, BARREL RIFLER BROACH.TIERNEY Hanks, BARREL RIFLER BROACH.HARNESS INSPECTOR Marilu [place], BARREL RIFLER BROACH.HARNESS INSPECTOR Mya Rucker, BARREL RIFLER BROACH.HARNESS INSPECTOR Hetal Rader, BARREL RIFLER BROACH.HARNESS INSPECTOR After 4:30 pm or on holidays or weekends, call: or . Ask the security control center operator to page the hedis abstractor oncologist party plan salesperson. PRE-OPERATIVE CHECKLIST: PATIENT INSTRUCTIONS PRIOR TO SURGERY [...] THESE MEDICATIONS 7 DAYS PRIOR TO SURGERY: (Motrin/ibuprofen/Naproxen/Aleve/Advil ), Aspirin, vitamin E, herbal medications, diet pills, and kpbe-bji-lrsegwq medications. Tylenol (acetaminophen) is okay. I will not wear jewelry, body piercing(s), makeup, nail lithuanian, hairpins, or contacts on the day of [...] my surgeon. Discuss medication changes with your marine meteorologist or primary care physician as well. If I stopped taking my blood-thinning medication, I will ask the surgeon when to resume taking it. If I am an outpatient, a responsible person will drive me home and it was suggested that someone stay with me for 24 hours. I understand that a drug abuse program coordinator or cabdriver is NOT a responsible caregiver. Patients with diabetes, I will not take my morning diabetes medication (pills) on the morning of surgery. If I am on insulin, someone has gone over those instructions with me for the morning of surgery. I understand if my surgery is delayed, I will notify the check in desk that I have diabetes. See the Diabetic Guidelines Before Surgery in the patient education section. If I have Obstructive Sleep Apnea and use a CPAP/BiPAP machine, I will bring my mask, tubing, and machine with me on the day of surgery. Pain management education material found in Your Surgical Guide was reviewed with me. To find out my arrival time for surgery, I must call my surgical territory manager after 2pm the day before surgery. Pre-operative instructions given by: PREOP INSTRUCTIONS THE DAY OF SURGERY/CHECK IN Report to DESK J1-9 for surgery. A map is located in Your Surgical Guide Book. The online version of the surgical guide book can be found at: [email or web address] The address is [address] [place] [address] INFECTION PREVENTION Please notify your doctor if [...] Your surgeon or other members of your surgeon s team will discuss any other specific medical issues related to your discharge with you. Your surgeon may order intermittent compression sleeves. These are massaging leg pumps to help prevent blood clots after surgery. [...] Your Surgical Guide Book for more information. [facility] TEAM At the [facility], we have a multidisciplinary team of caregivers that includes fellows, residents, nurse practitioners, physician assistants, clinical nurse specialists, nurses, medical assistants, patient care nursing assistants, social workers, case fitter and many others. We all have different [...] directed by your surgeon. Please contact your surgeon s office if any FMLA or other paperwork [...] disposal station (located in many of the [facility] pharmacies). Do not flush them down the [...] have any of the following symptoms: Fever (>100.4 F or 38.0 C) or chills. Incision problems such as redness, [...] of breath, difficulty breathing, or chest pain. documented in this encounter [facility] 04-27-2025 History of Present illness Narrative Images from the original note were not included. Gynecologic Oncology [facility] Follow Up Re: Mirian Barker Antoni CC#: [id number] Date of service:04/27/2025 Clarence Vines DO Dear Clarence: Briefly, she is a 69 year old [...] of ovarian cancer, she presented to her ADMINISTRATIVE SUPPORT COORDINATOR on upon breast exam a right axillary node was enlarged, she was sent for an US and biopsy which showed possible ADMINISTRATIVE SUPPORT COORDINATOR malignancy metastases. She presents today to establish care with hedis abstractor oncology. 08/24/2022 INVITAE TESTIN11/23/2024 Small Bowel Biopsy: [...] for chemotherapy so authorization for treatment at [facility] can be initiated. - Patient to follow-up with Dr. Evangelista at [facility] to start treatment. 2. Ovarian cancer [...] Size: Regular Adult) Pulse 82 Temp 36.9 C (98.4 F) (Temporal) Wt 49.4 kg (108 lb 14.5 oz) SpO2 100% BMI 17.58 kg/m Female in no acute distress. Neck - Negative. Supraclavicular - Adenopathy absent. Cardiac - Regular rate and rhythm without murmur or gallop. Carotids 2+ without bruits. Respiratory - Clear to ausculation bilaterally. Abdominal - No CVA tenderness. The bowel sounds are positive. The abdomen is soft and nontender. Trap Operator for exam: Kaylin Nina RN and The sensitive examination was discussed with the Patient or Patient's Authorized International Marketing Manager. As applicable, any other physician, advance practice provider, medical student, or other health professional student that will be observing or involved in the sensitive examination for educational or training purposes was discussed with the Patient or Authorized International Marketing Manager. The Patient or Authorized International Marketing Manager has agreed to proceed with the sensitive [...] the visit was discussed with the patient/authorized sales representative raw fibers; all questions welcomed and answered. Patient/authorized sales representative raw fibers agreed to proceed Resident/Fellow's history reviewed. Patient [...] Medical Decision Making Level: 4 - Moderate documented in this encounter [facility] 04-27-2025 [facility] 04-20-2025 Progress note [facility] enter 04-17-2025 [facility] 04-17-2025 History of Presen t illness Narrative Pt is identified by name and birthdate: Yes Allergies reviewed: Yes Medication - prescribed and OTC reviewed and updated: Yes Latex allergy: no. Is the patient having any pain? No 0 on a scale of 0 to 10 See flow sheet for treatment record. Kierra Harris RN April 17, 2025 3:18 PM documented in this encounter [facility] 04-06-2025 [facility] 04-06-2025 History of Presen t illness Narrative Pt is identified by name and birthdate: Yes Allergies reviewed: Yes Medication - prescribed and OTC reviewed and updated: Yes Latex allergy: no. Is the patient having any pain? No 0 on a scale of 0 to 10 See flow sheet for treatment record. Sonam Freitas RN April 06, 2025 4:04 PM documented in this encounter [facility] 03-27-2025 [facility] 03-27-2025 History of Presen t illness Narrative Pt is identified by name and birthdate: Yes Allergies reviewed: Yes Medication - prescribed and OTC reviewed and updated: Yes Latex allergy: no. Is the patient having any pain? No 0 on a scale of 0 to 10 See flow sheet for treatment record. Sonam Freitas RN March 27, 2025 2:57 PM documented in this encounter [facility] 03-20-2025 [facility] 03-20-2025 History of Presen t illness Narrative Pt is identified by name and birthdate: Yes Allergies reviewed: Yes Medication - prescribed and OTC reviewed and updated: Yes Latex allergy: no. Is the patient having any pain? No 0 on a scale of 0 to 10 See flow sheet for treatment record. Kierra Willis RN March 20, 2025 3:12 PM documented in this encounter [facility] 03-16-2025 [facility] 03-16-2025 History of Presen t illness Narrative Pt is identified by name and birthdate: Yes Allergies reviewed: Yes Medication - prescribed and OTC reviewed and updated: Yes Latex allergy: no. Is the patient having any pain? No 0 on a scale of 0 to 10 See flow sheet for treatment record. Austin Boss RN March 16, 2025 3:21 PM documented in this encounter [facility] 03-13-2025 [facility] 03-13-2025 History of Presen t illness Narrative Pt is identified by name and birthdate: Yes Allergies reviewed: Yes Medication - prescribed and OTC reviewed and updated: Yes Latex allergy: no. Is the patient having any pain? No 0 on a scale of 0 to 10 See flow sheet for treatment record. Jono Merritt RN March 13, 2025 3:01 PM documented in this encounter [facility] 02-13-2025 Telephone encount er Note Received External Records from [facility] Uploaded into scanned documents. [facility] 02-13-2025 Miscellaneous Notes Formattin g of this note might be different from the original. Received External Records from [facility] Uploaded into scanned documents. documented in this encounter [facility] 02-09-2025 [facility] 02-09-2025 Progress note [facility] enter 02-06-2025 [facility] 02-06-2025 [facility] 02-02-2025 Telephone encounter Note Received External records for Us from [facility] Uploaded into scanned documents [facility] 02-02-2025 Miscellaneous Notes Received External records for Us from [facility] Uploaded into scanned documents documented in this encounter [facility] 02-01-2025 Telephone encounter Note Requested 01/29/25 Pet scan from [facility] & 01/24/25 US PELVIS from [facility], Pathology was previously sent to [facility]. [facility] Work Phone: 02-01-2025 Miscellaneous Notes Requested 01/29/25 Pet scan from [facility] & 01/24/25 US PELVIS from [facility], Pathology was previously sent to [facility]. documented in this encounter [facility] 01-30-2025 [facility] 01-30-2025 History of Presen t illness Narrative Pt is identified by name and birthdate: Yes Allergies reviewed: Yes Medication - prescribed and OTC reviewed and updated: Yes Latex allergy: no. Is the patient having any pain? No 0 on a scale of 0 to 10 See flow sheet for treatment record. Jono Merritt RN January 30, 2025 3:19 PM documented in this encounter [facility] 01-26-2025 [facility] 01-26-2025 History of Presen t illness Narrative Pt is identified by name and birthdate: Yes Allergies reviewed: Yes Medication - prescribed and OTC reviewed and updated: Yes Latex allergy: no. Is the patient having any pain? No 0 on a scale of 0 to 10 See flow sheet for treatment record. Jono Merritt RN January 26, 2025 4:02 PM documented in this encounter [facility] 01-24-2025 Miscellaneous Notes Belly Packer left voicemail to schedule new Patient appointment. [facility] Note Belly Packer left voicemail to schedule new Patient appointment. Office number provided [facility] 01-23-2025 [facility] 01-23-2025 History of Presen t illness Narrative Pt is identified by name and birthdate: Yes Allergies reviewed: Yes Medication - prescribed and OTC reviewed and updated: Yes Latex allergy: no. Is the patient having any pain? No 0 on a scale of 0 to 10 See flow sheet for treatment record. Kierra Harris RN January 23, 2025 3:27 PM documented in this encounter [facility] 01-19-2025 [facility] 01-19-2025 History of Presen t illness Narrative Pt is identified by name and birthdate: Yes Allergies reviewed: Yes Medication - prescribed and OTC reviewed and updated: Yes Latex allergy: no. Is the patient having any pain? No 0 on a scale of 0 to 10 See flow sheet for treatment record. Austin Boss RN January 19, 2025 3:09 PM documented in this encounter [facility] 01-18-2025 Telephone encounter Note Received fax from [employer] requesting provider dates form and also requesting office visit notes and front and back copy of the insurance card. Faxed to [phone]. [facility] 01-18-2025 Miscellaneous Notes Received fax from [employer] requesting provider dates form and also requesting office visit notes and front and back copy of the insurance card. Faxed to [phone]. [employer] form for light therapy, has been completed and faxed to [facility]. documented in this encounter [facility] 01-17-2025 Radiology Diagnostic study note [facility] [place] [address] Ultrasound Report Signed Patient: Mirian Corrales MR#: [id number] : 1955 Acct:[id number] Age/Sex: 69 / F ADM Date: 5 Loc: [facility] Room: Type: [facility] Attending Dr: Benedicto Lan DO Ordering Provider: Benedicto Lan Date of Service: 01/17/25 US/US axilla: R22.31 Copies to: Benedicto Lan~ LIMITED RIGHT AXILLARY ULTRASOUND CLINICAL DATA: Palpable [...] AND INGUINAL LYMPHADENOPATHY. PATIENT ALSO HAS ADENOPATHY ONRECENT CT OF THE ABDOMEN AND PELVIS. THE FINDINGS ARE CONCERNING FOR LYMPHOMA. EITHER THE AXILLA OR THE GROIN ON THE RIGHT WOULD BE AMENABLE TO ULTRASOUND-GUIDED BIOPSY. Findings were discussed with the patient at the time of the exam. Impression dictated by: Megan Phan M.D. 01/17/2025 10:49 AM Dictation Location: [facility] Tech: Maribel Navarro Transcribed By: JULIOCESAR 01/17/25 104 Dictated By: Megna Phan MD 01/17/25 104 Signed By: 01/17/251048 [facility] Work Phone: 01-16-2025 [facility] 01-16-2025 History of Presen t illness Narrative Pt is identified by name and birthdate: Yes Allergies reviewed: Yes Medication - prescribed and OTC reviewed and updated: Yes Latex allergy: no. Is the patient having any pain? No 0 on a scale of 0 to 10 See flow sheet for treatment record. Jono Merritt RN January 16, 2025 3:09 PM documented in this encounter [facility] 01-15-2025 Radiology Diagnostic study note [facility] [place] [address] CT Scan Report Signed Patient: Mirian Corrales MR#: [id number] : 1955 Acct:[id number] Age/Sex: 69 / F ADM Date: 5 Loc: CT Room: Type: [facility] Attending Dr: Rey Schrader MD Copies to: Rey Schrader MD~ Ordering Provider: Rey Schrader MD Date of Service: 01/15/25 CT/CT abdomen pelvis w con: R10.9 - Unspecified abdominal pain CT ABDOMEN AND PELVIS WITH CONTRAST COMPARISON: MRCP 08/12/2022 CLINICAL DATA: Abdominal pain with nausea, vomiting and weight loss. Spiral images were obtained through the abdomen and pelvis following oral and 75mL of Isovue 300. This CT exam was performed using one or more following dose reduction techniques: Automated exposure control, adjustment of the mA and/or kVaccording to patient size, or use of iterative [...] seen. The spleen, pancreas and adrenal glands showno acute findings. There are symmetric renal nephrograms, without hydronephrosis. The abdominal aorta is normal caliber. There is soft tissue density in the retroperitoneum encircling the aorta and extending down through the bifurcation. This is not obvious on the MRI and is suspicious for adenopathy. There is alsoadenopathy in the periportal region. This is in close proximity to though is believed to be separate from the pancreas. No ascites is seen. The small bowelloops are not distended. There is stool along [...] size. There are also a couple lymph nodesat the right groin which are slightly larger. [...] Phan M.D. 01/15/2025 5:29 PM Dictation Location: [place] [address] Transcribed By: [facility] 01/15/251728 Dictated By: Megan Phan MD 01/15/251717 Signed By: 01/15/251728 [facility] Work Phone: 01-12-2025 [facility] 01-10-2025 Procedure note [facility] enter 01-09-2025 [facility] 01-09-2025 History of Present illness Narrative Pt is identified by name and birthdate: Yes Allergies reviewed: Yes Medication - prescribed and OTC reviewed and updated: Yes Latex allergy: no. Is the patient having any pain? No 0 on a scale of 0 to 10 See flow sheet for treatment record. Austin Boss RN January 09, 2025 3:15 PM documented in this encounter [facility] 01-09-2025 History of Present illness Narrative Reason for Appointment: Patient ID: Mirian Corrales is a 69 y.o. female who presents for leiomyomas and swollen thighs Patient presents today for Acute Visit. MEDICATIONS Current Outpatient Medications Medication Instructions calcium carbonate 1,500 mg, Daily cholecalciferol (VITAMIN D-3) 800 Units, Daily Digestive Enzyme capsule as directed Orally magnesium 200 mg, Every 24 hours Multiple Vitamin (Multi Vitamin) tablet Every 24 hours Multiple Vitamins-Minerals (HAIR SKIN & NAILS ADVANCED PO) Take by mouth Probiotic chewable tablet as directed Orally ALLERGIES Allergies Allergen Reactions Diphenhydramine Other Reaction(s): SENSITIVITY-eyes dilated Gluten Meal Other Reaction(s): abdominal pain Tilactase Swelling Bloating Wheat Swelling PROBLEMS Active Ambulatory Problems Diagnosis Date Noted Age-related osteoporosis without current pathological fracture (CMS/HCC) 06/25/2023 Non-celiac gluten sensitivity 06/25/2023 Post menopausal syndrome 06/25/2023 Primary osteoarthritis involving multiple joints 07/19/2023 Chronic eczema 07/24/2024 Osteoarthritis of right hip 10/01/2024 Pain in joint of right hip 10/01/2024 Other fatigue 10/01/2024 History of steroid therapy 10/01/2024 Resolved Ambulatory Problems Diagnosis Date Noted Family history of pancreatic cancer 07/19/2023 [facility] arthritis 07/19/2023 Derangement of right sacroiliac joint 07/19/2023 Past Medical History: Diagnosis Date Eczema Osteoporosis (CMS/HCC) Pelvic pain in female Vertigo 2018 HISTORY PAST MEDICAL HISTORY SOCIAL HISTORY Past Medical History: Diagnosis Date Eczema Osteoporosis (CMS/HCC) Pelvic pain in female Vertigo 2018 [facility] Social History Tobacco Use Smoking status: [...] SYSTEMS Review of Systems: Review of Systems Constitutional: Negative. HENT: Negative. Eyes: Negative. Respiratory: Negative. Cardiovascular: Negative. Gastrointestinal: Negative. Genitourinary: Negative. Musculoskeletal: Negative. Skin: Negative. Neurological: Negative. All other systems reviewed and are negative. Hematological: Negative. Endocrine: Negative. Allergic/Immunologic: Negative. OBJECTIVE Objective: Physical Exam Constitutional: Appearance: Normal appearance. She is well-developed. Cardiovascular: Rate and Rhythm: Normal rate and [...] nursing note reviewed. Exam conducted with a stencil sprayer present. Vitals: Estimated body mass index is 18.69 kg/m as calculated from the following: Height as of 12/13/24: 5' 6 . Weight as of this encounter: 115 lb 12.8 oz. BP: 110/70 No LMP recorded. ASSESSMENT & PLAN ICD-10-CM 1. Swelling of thigh M79.89 POCT urinalysis dipstick manually resulted 2. Leiomyoma D21.9 POCT urinalysis dipstick manually resulted 3. Lump of axilla, right R22.31 Pt has complaints of swollen mass in groin, right sided lump in axilla. Pt given ultrasound order for underarm. Documented by Megan Llanes LPN on behalf of: Benedicto Lan DO documented in this encounter [facility] 01-05-2025 Note [facility] 01-05-2025 History of Present illness Narrative Pt is identified by name and birthdate: Yes Allergies reviewed: Yes Medication - prescribed and OTC reviewed and updated: Yes Latex allergy: no. Is the patient having any pain? No 0 on a scale of 0 to 10 See flow sheet for treatment record. Sonam Freitas RN January 05, 2025 3:05 PM documented in this encounter [facility] 01-04-2025 Evaluation note Authored January 04, 2025 8:38am 69-year-old female referred to the GI clinic for evaluation of abnormal transglutaminase antibody. + RUQ abdominal pain and bloating. + chronic constipation which is controlled with magnesium. EGD on 11/23/2024 was normal, duodenal biopsies were negative for celiac Last colonoscopy was 9 years ago. -Will arrange for CT abdomen/pelvis with contrast -Will arrange for gastric emptying study - Will arrange for colonoscopy - If workup is unremarkable will arrange for hydrogen breath test Author [facility] Authored November 06, 2024 2:44pm 69-year-old female referred to the GI clinic for evaluation of abnormal transglutaminase antibody. Patient has abdominal pain and bloating -Will arrange for EGD with duodenal biopsy to assess for celiac disease. -Patient was counseled about gluten-free diet -Patient already had a DEXA scan which showed osteoporosis, she has vitamin D deficiency and already on vitamin D supplements -I recommended the patient to get pneumococcal vaccine but patient is not interested [facility] Work Phone: 1(536) 540-665804-17-2025 Evaluation note* Author [facility] Authored January 04, 2025 8:3 8am 69-year-old female referred to the GI clinic for evaluation of abnormal transglutaminase antibody. + RUQ abdominal pain and bloating. + chronic constipation which is controlled with magnesium. EGD on 11/23/2024 was normal, duodenal biopsies were negative for celiac Last colonoscopy was 9 years ago. -Will arrange for CT abdomen/pelvis with contrast -Will arrange for gastric emptying study - Will arrange for colonoscopy - If workup is unremarkable will arrange for hydrogen breath test [facility] Work Phone: [phone]) 766-686304-15-2025 [facility]04-15-2025 History of Present illness Narrative* Sonam Freitas RN - 01/02/2025 3:22 PM EDT Pt is identified by name and birthdate: Yes Allergies reviewed: Yes Medication - prescribed and OTC reviewed and updated: Yes Latex allergy: no. Is the patient having any pain? No 0 on a scale of 0 to 10 See flow sheet for treatment record. Sonam Freitas RN January 02, 2025 3:24 PM [facility] History of Present illness Narrative* Jono Merritt RN - 12/29/2024 3:13 PM EDT Pt is identified by name and birthdate: Yes Allergies reviewed: Yes Medication - prescribed and OTC reviewed and updated: Yes Latex allergy: no. Is the patient having any pain? No 0 on a scale of 0 to 10 See flow sheet for treatment record. Jono Merritt RN December 29, 2024 3:15 PM [facility] Telephone encounter Note * Telephone Encounter - Libby Barber - 12/29/2024 8:28 AM EDT [employer] form for light therapy, has been completed and faxed to [employer]. [facility] History of Present illness Narrative* Jono Merritt RN - 12/26/2024 10:34 AM EDT Pt is identified by name and birthdate: Yes Allergies reviewed: Yes Medication - prescribed and OTC reviewed and updated: Yes Latex allergy: no. Is the patient having any pain? No 0 on a scale of 0 to 10 See flow sheet for treatment record. Jono Merritt RN December 26, 2024 10:35 AM documented [facility]25 [facility]04-02-2025 History of Present illness Narrative* Austin Boss RN - 12/20/2024 1:58 PM EDT Pt is identified by name and birthdate: Yes Allergies reviewed: Yes Medication - prescribed and OTC reviewed and updated: Yes Latex allergy: no. Is the patient having any pain? No 0 on a scale of 0 to 10 See flow sheet for treatment record. Austin Boss RN December 20, 2024 1:58 PM documented in [facility] encounter[facility]03[facility]2025 History of Present illness Narrative* Austin Boss RN - 12/18/2024 3:11 PM EDT Pt is identified by name and birthdate: Yes Allergies reviewed: Yes Medication - prescribed and OTC reviewed and updated: Yes Latex allergy: no. Is the patient having any pain? No 0 on a scale of 0 to 10 See flow sheet for treatment record. Austin Boss RN December 18, 2024 3:12 PM documented in [facility] encounter[facility]03-28-2025 History of Present illness Narrative* Austin Boss RN - 12/15/2024 3:15 PM EDT Pt is identified by name and birthdate: Yes Allergies reviewed: Yes Medication - prescribed and OTC reviewed and updated: Yes Latex allergy: no. Is the patient having any pain? No 0 on a scale of 0 to 10 See flow sheet for treatment record. Austin Boss RN December 15, 2024 3:15 PM documented in [facility] encounter[facility] History of Present illness Narrative* Kierra Harris RN - 12/13/2024 3:08 PM EDT Pt is identified by name and birthdate: Yes Allergies reviewed: Yes Medication - prescribed and OTC reviewed and updated: Yes Latex allergy: no. Is the patient having any pain? No 0 on a scale of 0 to 10 See flow sheet for treatment record. Kierra Harris RN December 13, 2024 3:11 PM documented in this encounterOhio[facility] Instructions* Patient Instructions* Vonnie Aguirre NP - 12/13/2024 10:30 AM EDT PATIENT EDUCATION: Medicare wellness Patient here for annual Medicare Wellness visit. Demographics were updated. Self-assessment was completed. Past medical, family and social history were updated. The medication list, including supplements being taken, was updated. A list of other current medical providers was established/updated. Time was spent discussing health maintenance issues, ordering proper testing, and schedule was provided regarding recommended screening. We discussed safety issues and fall risk. Depression screening was completed and addressed. Cognitive function was assessed by direct observation and assessment of ability to perform ADL's and IADL's was done. We also discussed Advanced Directives and code status. The current BMI was provided along with an education packet regarding healthy living and maintenanceof a healthy weight. The BMI will cont to be monitored at routine office visits as well. Major riskfactors for chronic disease including family history were discussed . documented in this encounterThe [facility] [id number] [facility]03-24-2025 History of Present illness Narrative* Sonam Feritas RN - 12/11/2024 3:05 PM EDT Pt is identified by name and birthdate: Yes Allergies reviewed: Yes Medication - prescribed and OTC reviewed and updated: Yes Latex allergy: no. Is the patient having any pain? No 0 on a scale of 0 to 10 See flow sheet for treatment record. Sonam Freitas RN December 11, 2024 3:06 PM documented in this encounterOhio[facility]25 [facility]03-21-2025 History of Present illness Narrative* Austin Boss RN - 12/08/2024 3:18 PM EDT Pt is identified by name and birthdate: Yes Allergies reviewed: Yes Medication - prescribed and OTC reviewed and updated: Yes Latex allergy: no. Is the patient having any pain? No 0 on a scale of 0 to 10 See flow sheet for treatment record. Austin oBss RN December 08, 2024 3:18 PM documented in this encounterOhio[facility]2025 [facility]03-19-2025 History of Present illness Narrative* Sonam Freitas RN - 12/06/2024 3:03 PM EDT Pt is identified by name and birthdate: Yes Allergies reviewed: Yes Medication - prescribed and OTC reviewed and updated: Yes Latex allergy: no. Is the patient having any pain? No 0 on a scale of 0 to 10 See flow sheet for treatment record. Sonam Freitas RN December 06, 2024 3:04 PM documented in this encounterOhio[facility]03[facility]2025 [facility]03-17-2025 History of Present illness Narrative* Jono Merritt RN - 12/04/2024 3:05 PM EDT Pt is identified by name and birthdate: Yes Allergies reviewed: Yes Medication - prescribed and OTC reviewed and updated: Yes Latex allergy: no. Is the patient having any pain? No 0 on a scale of 0 to 10 See flow sheet for treatment record. Jono Merritt RN December 04, 2024 3:07 PM documented in this encounterOhio[facility] History of Present illness Narrative* Sonam Freitas RN - 12/01/2024 3:59 PM EDT Pt is identified by name and birthdate: Yes Allergies reviewed: Yes Medication - prescribed and OTC reviewed and updated: Yes Latex allergy: no. Is the patient having any pain? No 0 on a scale of 0 to 10 See flow sheet for treatment record. Sonam Freitas RN December 01, 2024 4:00 PM documented in this encounterOhio[facility]03[facility]25 [facility]03-12-2025 History of Present illness Narrative* Kierra Willis RN - 11/29/2024 3:02 PM EDT Pt is identified by name and birthdate: Yes Allergies reviewed: Yes Medication - prescribed and OTC reviewed and updated: Yes Latex allergy: no. Is the patient having any pain? No 0 on a scale of 0 to 10 See flow sheet for treatment record. Kierra Willis RN November 29, 2024 3:15 PM [place] encounter[place] [id number] NoteOhio[facility]03-10-2025 History of Present illness Narrative* Sonam Freitas RN - 11/27/2024 3:22 PM EDT Pt is identified by name and birthdate: Yes Allergies reviewed: Yes Medication - prescribed and OTC reviewed and updated: Yes Latex allergy: no. Is the patient having any pain? No 0 on a scale of 0 to 10 See flow sheet for treatment record. Sonam Freitas RN November 27, 2024 3:23 PM documented in this encounterOhio[facility] History of Present illness Narrative* Sonam Freitas RN - 11/24/2024 2:53 PM EST Pt is identified by name and birthdate: Yes Allergies reviewed: Yes Medication - prescribed and OTC reviewed and updated: Yes Latex allergy: no. Is the patient having any pain? No 0 on a scale of 0 to 10 See flow sheet for treatment record. Sonam Freitas RN November 24, 2024 2:54 PM documented in this encounterOhio[facility] [place] [address] EGD Procedure Note Signed Patient: Mirian Corrales MR#: [id number] : 1955 Acct:[id number] Age/Sex: 69 / F Adm Date: 5 Loc: Room: Type: [facility] Attending Dr: Rey Schrader MD Copies to: MD Conner EspositoDO~ Esophagogastroduodenoscopy Date/Provider Date: 11/23/2024 Rey Schrader MD Procedure Findings: Procedure: EGD with biopsy Indication: 61-year-old female here for EGD to assess for celiac Pre-operative diagnosis: Abnormal transglutaminase antibody Post-operative diagnosis: Normal EGD Sedation: propofol per anesthesia dept O2 oximetry, hemodynamic monitoring was performed pre, during, and post procedure. Patient was identified, H&P completed, patient was given full explanation of the procedure as well as associatedrisks and written consent wasobtained prior to procedure. Patient expressed complete understanding of the procedure as well as alternatives to the procedure and to anesthesia and agreed to proceed with the procedure as indicated. Patient was immediately reassessed prior to IV sedation. Following IV sedation, patient was placed in the left lateral decubitus position. Bite block was inserted. Endoscope was passed through the mouth, into the esophagus. Endoscope was advanced into the stomach through the pyloricchannel and into the 2nd portion of duodenum by direct visualization. Endoscopewas withdrawn into the stomach and retroflexion was performed. The endoscope was straightened,the stomach was decompressed. Endoscope was withdrawn into the esophagus then completely removed with the findings as below. Findings: DUODENUM: bulb and descending portion appeared normal. Biopsies were done usingbiopsy forceps to assess for celiac STOMACH: pyloric channel, antrum, body, fundus and cardia, including retroflexedviews appear normal. ESOPHAGUS: Irregular Z-line. Diaphragmatic hiatus was 38 cm from incisors and GE junction (upper margin of gastric folds) was at 38 cm from incisors. Squamocolumnar junction was at 38 cm from incisors. Mucosa appeared normal. Biopsy taken: Yes Complications: None EBL: Minimal Recommendations: -Follow up pathology Following a period of recovery, patient was seen and given full explanation of the procedure. Patient tolerated the procedure well and will be discharged in satisfactory, stable condition. Rey Schrader M.D. Documented By: Rey Schrader MD 11/23/24 1309 Signed By: 11/23/24 1310 [facility]03-05-2025 NoteOhio[facility] 11-22-2024 History of Present illness Narrative* Sonam Freitas RN - 11/22/2024 2:37 PM EST Pt is identified by name and birthdate: Yes Allergies reviewed: Yes Medication - prescribed and OTC reviewed and updated: Yes Latex allergy: no. Is the patient having any pain? No 0 on a scale of 0 to 10 See flow sheet for treatment record. Sonam Freitas RN November 22, 2024 2:38 PM documented in this encounterOhio[facility]03-03-2025 History of Present illness Narrative* Jono Merritt RN - 11/20/2024 12:57 PM EST Pt is identified by name and birthdate: Yes Allergies reviewed: Yes Medication - prescribed and OTC reviewed and updated: Yes Latex allergy: no. Is the patient having any pain? No 0 on a scale of 0 to 10 See flow sheet for treatment record. Jono Merritt RN November 20, 2024 12:58 PM documented in this encounterOhio[facility]03-03-2025 Instructions* Patient Instructions* Tamera Evans MD - 11/20/2024 10:16 AM EST It was a pleasure seeing you in [...] GI provider to look for celiac disease documented in this encounterOhio[facility]-03-2025 [facility]03-03-2025 History of Present illness Narrative* Maxine Dai RN - 11/20/2024 10:03 AM EST FOOD ALLERGEN PERCUTANEOUS SKIN TESTING Mean Wheal & Flare Diameter ( mm) Patient has been identified by name and date of : Yes . Skin test applied by : Maxine Dai RN Interpreted By: Tamera Evans M.D. [...] 0 mm F = 0 mm Milk, Cow s 1:20 P: W = 0 mm F = 0 mm ALLERGENS: LEGUME Peanut 1:20 P: W = 0 mm F = 0 mm Soybean 1:40 P: W = 0 mm F = 0 mm ALLERGENS:TREE AND NUT Eagar 1:20 P: W = 0 mm F = 0 mm [place] Nut 1:20 P: W = 0 mm [...] = 0 mm F = 0 mm Battiest, Black 1:20 P: W = 0 mm F = 0 mm Battiest, [place] 1:20 P: W = 0 mm F = 0 mm ALLERGENS:GRAIN Barley 1:20 P: W = 0 mm F = 0 mm Buckwheat 1:20 P: W = 0 mm F = 0 mm [place] 1:40 P: W = 0 mm F = 0 mm Oat 1:20 P: W = 0 mm F = 0 mm Rice 1:20 P: W = 0 mm F = 0 mm [place] 1:20 P: W = 0 mm F = 0 mm Wheat, whole 1:20 P: W = 0 mm F = 0 mm Triamcinolone 0.1% cream applied to positive skin test reactions per provider's order. Patient seenby Dr. Evans prior to leaving [facility]. 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 She has concerns about food allergy, since [...] or Cold Intolerance, Excessive Sweating, Frequent Urination, FrequentThirst Answers submitted by the patient for this [...] lb 4.6 oz) SpO2 100% BMI 18.93 kg/m Body mass index is 18.93 kg/m . General: The patient is pleasant, well groomed, [...] = 0 mm ALLERGENS:TREE AND NUT 1. [place]agar 1:20 P: W = 0 mm F = 0 mm 2. [place] Nut 1:20 P: W = 0 mm [...] 0 mm F = 0 mm 8. Battiest, Black 1:20 P: W = 0 mm F = 0 mm 9. Battiest, [place] 1:20 P: W = 0 mm F = 0 mm ALLERGENS:GRAIN 1. Barley 1:20 P: W = 0 mm F = 0 mm 2. Buckwheat 1:20 P: W = 0 mm F = 0 mm 3. [place] 1:40 P: W = 0 mm F = 0 mm 4. Oat 1:20 P: W = 0 mm F = 0 mm 5. Rice 1:20 P: W = 0 mm F = 0 mm 6. [place] 1:20 P: W = 0 mm F = 0 mm 7. Wheat, whole 1:20 P: W = 0 mm F = 0 mm Latest Reference Range & Units 11/20/24 10:50 WBC 3.70 - 11.00 [...] Lymph 1.00 - 4.00 k/uL 0.83 (L) Cedar% % 7.0 Abs Cedar <0.87 k/uL 0.45 Eosin% % 7.6 Abs Eosin <0.46 k/uL 0.49 (H) Baso% % 1.4 Abs Baso <0.11 k/uL 0.09 Immature Gran % % 0.3 IMMATURE GRANS (ABS) <0.10 k/uL <0.03 NRBC /100 WBC 0.0 Absolute nRBC <0.01 k/uL <0.01 (L): Data is abnormally low (H): Data is abnormally high It was a pleasure to see Mirian Mj Corrales. Please call with any questions. I [...] possible, or otherwise by letter via the [place] Postal Service. Medical Decision Making: Problems: Moderate: New problem with uncertain prognosis Data: Unique test(s) ordered: 3+ Medical Decision Making Level: 4 - Moderate Tamera Evans MD Staff Physician - Allergy and Clinical Immunology [facility] documented in this encounterOhiohealth [facility]03-03-2025 [facility]02-28-2025 Note[facility]02-28-2025 History of Present illness Narrative* Sonam Freitas RN - 11/17/2024 3:07 PM EST Pt is identified by name and birthdate: Yes Allergies reviewed: Yes Medication - prescribed and OTC reviewed and updated: Yes Latex allergy: no. Is the patient having any pain? No 0 on a scale of 0 to 10 See flow sheet for treatment record. Protective eyewear given and worn. Sonam Freitas RN November 17, 2024 3:08 PM documented in this encounterOhiohealth [facility]02-28-2025 [facility]02-28-2025 History of Present illness Narrative* Ronna Zamora RN - 11/17/2024 12:05 PM EST To view your list, go to [email or web address] Allergen Search Code: [email or web address] Allergen Search Code: [id number] Ronna Zamora RN * Jes Latham MD - 11/17/2024 11:30 AM EST Images from the original note were not included. Department of Dermatology Occupational and Contact Dermatology [...] covered until mid-next week. - Referral to cocoa mill operator Dr. Tamera Evans for further evaluation of [...] represents an allergic contact dermatitis allergen [A1] ofpast clinical relevance [R4], and patient is instructed [...] represents an allergic contact dermatitis allergen [A1] ofpast clinical relevance [R4], and patient is instructed to avoid in the future. Rationale: 1+ reaction, previously used Dove body wash that might've contained this ingredient. Notidentified today in patients' personal care products. Occupational [...] or other health care provider to better planany needed future treatment. We recommend that you [...] for additional instructions. Our telephone number is [phone]. - Resume phototherapy sessions as scheduled, ensuring to cover the treated areas until mid-next week. - Refill triamcinolone ointment at the pharmacy; ensure you receive the ointment form, not the cream. - Schedule a follow-up appointment with Dr. Ingram in a couple of months. - Schedule an appointment with an cocoa mill operator to discuss potential food allergies. - Shower [...] the slightest response at the area. Your high school learning support teacher will decide whether this is relevant for your particular situation. In some instances it may be decided that the reaction is relevant, but it may also be considered irrelevant, based on the experience and judgement of your high school learning support teacher. 1+, 2+, 3+ = These are increasingly strong, positive reactions. These are often relevant for a patient, but we will discuss each positive finding with you to help establish whether it is relevant. IR = Irritant reaction. With a few exceptions, these reactions are generally not relevant. Your high school learning support teacher will carefull consider these irritant reactions and discuss with you their relevance. Information regarding each of the positive, relevant reactions. These avoidance sheets briefly explain important information about each allergen, including the kinds of products where it is likely to be found. Information about accessing a list of safe products, personalized for you. We use a system producedby the [place] Contact [employer]. You will be given a set of codes that can be used to access the database on an ongoing basis. A very helpful tool that you can access from the [employer] for your mobile device is the [employer] Joseph. Your list can be carried with you while shopping for products that should be safe for you to use. The icon should look like this: The use of the safe product list is extremely important for anyone dealing with an allergic contactdermatitis. While not every safe product will be [...] (around 02/14/2025) for rash f/u with Dr. De Souza. CC: Final patch test reading and interpretation. [...] She has a follow-up appointment with a cryptographic machine operator on November 23 to address potential food allergies. She is currently undergoing phototherapy and has sessions scheduled through December. She is also under the care of Dr. De Souza, her high school learning support teacher. PE: Patient appears generally well. Results from [...] 15, 2.0% pet Negative -KIMBERLY Negative -KIMBERLY 8-nxkg-jdpvinwkcvs formaldehyde resin 1.0% pet Negative -KIMBERLY Negative -KIMBERLY Ethylhexylglycerin 5.0% pet Negative -KIMBERLY Negative -KIMBERLY Black rubber mix 0.6% pet Negative -KIMBERLY Negative -KIMBERLY Potassium dichromate 0.25% pet Negative -KIMBERLY Negative -KIMBERLY Balsam of [place] (Myroxylon pereirae resin) 25.0% pet Negative -KIMBERLY [...] dimethylamine) 0.1% aq Negative -KIMBERLY Negative -KIMBERLY 0-Ltcng-2-nitropropane-1,3-diol (Bronopol) 0.5% pet Negative -KIMBERLY Negative -KIMBERLY Sesquiterpene lactone mix 0.1% pet Negative -KIMBERLY Negative -KIMBERLY 2-Hydroxethyl methacrylate 2.0% pet Negative -KIMBERLY Negative -KIMBERLY Hydroperoxides of linalool 1.0% pet Negative -KIMBERLY Negative -KIMBERLY Benzophenone-3, 10.0% pet (Oxybenzone or 1-aiuioih-8-methoxy-benzophenone) Negative -KIMBERLY Negative -KIMBERLY Chloroxylenol (4-Chloro-3,5-xylenol) 1.0% [...] methacrylate 2.0% pet Negative -KIMBERLY Negative -KIMBERLY [place] (ii) chloride hexahydrate 1.0% pet Negative -KIMBERLY Negative -KIMBERLY Sqedvnzyca-67-qgagybao 1.0% pet Negative -KIMBERLY Negative -KIMBERLY Budesonide [...] By, (c) = Cosigned By Initials Name Kate Melton RN In the above table, the [...] Past Histories that may have been independently gatheredby the clinical direct support worker and the remaining note (including any AI-generated [...] no procedures performed during this patient's visit. documented in this encounterOhiohealth Mansfield Hospital02-28-2025 Instructions* Patient Instructions* Jes Latham MD - 11/17/2024 11:48 AM EST Images from the original note were not included. Thank you for allowing us to perform patch testing for you! It has been a pleasure to meet you. Our entire staff hopes that the information we discovered during your patch testing will help your referring physician or other health care provider to better planany needed future treatment. We recommend that you [...] for additional instructions. Our telephone number is [phone]. - Resume phototherapy sessions as scheduled, ensuring to cover the treated areas until mid-next week. - Refill triamcinolone ointment at the pharmacy; ensure you receive the ointment form, not the cream. - Schedule a follow-up appointment with Dr. De Souza in a couple of months. - Schedule an appointment with an cocoa mill operator to discuss potential food allergies. - Shower [...] the slightest response at the area. Your high school learning support teacher will decide whether this is relevant for your particular situation. In some instances it may be decided that the reaction is relevant, but it may also be considered irrelevant, based on the experience and judgement of your high school learning support teacher. 1+, 2+, 3+ = These are increasingly strong, positive reactions. These are often relevant for a patient, but we will discuss each positive finding with you to help establish whether it is relevant. IR = Irritant reaction. With a few exceptions, these reactions are generally not relevant. Your high school learning support teacher will carefull consider these irritant reactions and discuss with you their relevance. Information regarding each of the positive, relevant reactions. These avoidance sheets briefly explain important information about each allergen, including the kinds of products where it is likely to be found. Information about accessing a list of safe products, personalized for you. We use a system producedby the [place] Contact Derm[employer]. You will be given a set of codes that can be used to access the database on an ongoing basis. A very helpful tool that you can access from the [employer] for your mobile device is the [employer] Joseph. Your list can be carried with you while shopping for products that should be safe for you to use. The icon should look like this: The use of the safe product list is extremely important for anyone dealing with an allergic contactdermatitis. While not every safe product will be [...] on the testing were relevant and important. documented in this encounterOhiohealth [facility] Hospital02-28-2025 NoteOhio[facility]02-26-2025 [facility]02-26-2025 History of Present illness Narrative* Sonam Freitas RN - 11/15/2024 1:36 PM EST Pt is identified by name and birthdate: Yes Allergies reviewed: Yes Medication - prescribed and OTC reviewed and updated: Yes Latex allergy: no. Is the patient having any pain? No 0 on a scale of 0 to 10 See flow sheet for treatment record. Protective eyewear given and worn. Sonam Freitas RN November 15, 2024 1:37 PM documented in this encounterOhiohealth Mansfield Hospital02-24-2025 [facility]02-24-2025 History of Present illness Narrative* Kate Carroll RN - 11/13/2024 11:49 AM EST Patient presents today for patch test application. A total of 77 patches applied to patient's upperback. Advised patient to keep back dry until after Wednesday appointment. Patch test procedure and removal of patches reviewed. Print offs of instruction provided to patient. All questions/concerns addressed. Kate Carroll RN November 13, 2024 11:50 AM documented in this encounterOhiohealth Mansfield Hospital02-20-2025 [facility]02-20-2025 History of Present illness Narrative* Austin Boss RN - 11/09/2024 1:09 PM EST Pt is identified by name and birthdate: Yes Allergies reviewed: Yes Medication - prescribed and OTC reviewed and updated: Yes Latex allergy: no. Is the patient having any pain? No 0 on a scale of 0 to 10 See flow sheet for treatment record. Protective eyewear given and worn. Austin Boss RN November 07, 2024 11:21 AM documented in this encounterOhiohealth Mansfield Hospital02-18-2025 [facility]02-18-2025 History of Present illness Narrative* Austin Boss RN - 11/07/2024 11:21 AM EST Pt is identified by name and birthdate: Yes Allergies reviewed: Yes Medication - prescribed and OTC reviewed and updated: Yes Latex allergy: no. Is the patient having any pain? No 0 on a scale of 0 to 10 See flow sheet for treatment record. Protective eyewear given and worn. Austin Boss RN November 07, 2024 11:21 AM documented in this encounterOhiohealth Mansfield Hospital02-17-2025 Evaluation note* Author Rey [facility] Authored November 06, 2024 2:44pm 69-year-old female referred to the GI clinic for evaluation of abnormal transglutaminase antibody. Patient has abdominal pain and bloating -Will arrange for EGD with duodenal biopsy to assess for celiac disease. -Patient was counseled about gluten-free diet -Patient already had a DEXA scan which showed osteoporosis, she has vitamin D deficiency and already on vitamin D supplements -I recommended the patient to get pneumococcal vaccine but patient is not interested [facility] Work Phone: 1(266) 632-699402-07-2025 NoteOhiohealth02-07-2025 History of Present illness Narrative* Austin Boss RN - 10/27/2024 3:21 PM EST Pt is identified by name and birthdate: Yes Allergies reviewed: Yes Medication - prescribed and OTC reviewed and updated: Yes Latex allergy: no. Is the patient having any pain? No 0 on a scale of 0 to 10 See flow sheet for treatment record. Protective eyewear given and worn. Austin Boss RN October 27, 2024 3:22 PM documented in this encounterOhiohealth Mansfield Hospital02-05-2025 [facility]02-05-2025 History of Present illness Narrative* Sonam Freitas RN - 10/25/2024 3:23 PM EST Pt is identified by name and birthdate: Yes Allergies reviewed: Yes Medication - prescribed and OTC reviewed and updated: Yes Latex allergy: no. Is the patient having any pain? No 0 on a scale of 0 to 10 See flow sheet for treatment record. Protective eyewear given and worn. Sonam Freitas RN October 25, 2024 3:24 PM documented in this encounterOhiohealth Mansfield Hospital02-03-2025 History of Present illness Narrative* Sonam Freitas RN - 10/23/2024 3:35 PM EST Pt is identified by name and birthdate: Yes Allergies reviewed: Yes Medication - prescribed and OTC reviewed and updated: Yes Latex allergy: no. Is the patient having any pain? No 0 on a scale of 0 to 10 See flow sheet for treatment record. Protective eyewear given and worn. Sonam Freitas RN October 23, 2024 3:35 PM documented in this encounterOhiohealth Mansfield Hospital02-03-2025 NoteOhio[facility]01-31-2025 NoteOhio[facility]01-31-2025 History of Present illness Narrative* Sonam Freitas RN - 10/20/2024 3:25 PM EST Pt is identified by name and birthdate: Yes Allergies reviewed: Yes Medication - prescribed and OTC reviewed and updated: Yes Latex allergy: no. Is the patient having any pain? No 0 on a scale of 0 to 10 See flow sheet for treatment record. Protective eyewear given and worn. Sonam Freitas RN October 20, 2024 3:25 PM documented in this encounterOhiohealth Mansfield Hospital01-29-2025 NoteOhio[facility]01-29-2025 History of Present illness Narrative* Kierra Harris RN - 10/18/2024 3:32 PM EST Pt is identified by name and birthdate: Yes Allergies reviewed: Yes Medication - prescribed and OTC reviewed and updated: Yes Latex allergy: no. Is the patient having any pain? No 0 on a scale of 0 to 10 See flow sheet for treatment record. Protective eyewear given and worn. Kierra Harris RN October 18, 2024 3:32 PM documented in this encounterOhiohealth Mansfield Hospital01-27-2025 NoteOhio[facility]01-24-2025 NoteOhio[facility]01-24-2025 History of Present illness Narrative* Sonam Freitas RN - 10/13/2024 3:18 PM EST Pt is identified by name and birthdate: Yes Allergies reviewed: Yes Medication - prescribed and OTC reviewed and updated: Yes Latex allergy: no. Is the patient having any pain? No 0 on a scale of 0 to 10 See flow sheet for treatment record. Protective eyewear given and worn. Sonam Freitas RN October 13, 2024 3:19 PM documented in this encounterOhiohealth Mansfield Hospital01-23-2025 NoteOhio[facility]01-23-2025 History of Present illness Narrative* Lauren Rea RT(R) - 10/12/2024 1:43 PM EST Radiology Service Progress Note PATIENT NAME: Mirian Corrales DATE OF SERVICE: October 12, 2024 TIME: 1:43 PM PATIENT IDENTITY VERIFICATION COMPLETED USING TWO (2) IDENTIFIERS: Name and Date of confirmedby patient verbally. FALL SCREENING: Has the patient had 2 falls in the last year or 1 fall with injury or currently using an Ambulatory Assistive Device (Walker, Cane, Wheelchair, Crutches, etc.)? No PATIENT GENDER DATA: Assigned female at . status: : No status:NO. PATIENT RELEVANT IMPLANT DATA REVIEWED: Not Applicable PATIENT PRESENTS WITH AN IMPLANTABLE OR ATTACHED TAP OUT OPERATOR: No RADIOLOGY DEPARTMENT: General X-ray: Exam(s) Completed: Pelvis X-Ray: Pelvis with Hip Right PERIPHERAL IV DATA: Not applicable SIGNED BY: RT MAXIMUS(R) October 12, 2024 1:43 PM documented in this encounterOhiohealth Mansfield Hospital01-23-2025 History of Present illness Narrative* Nenita Ken MD - 10/12/2024 12:00 AM EST [facility] NAME: MIRIAN CORRALES [facility] NO.: [id number] DATE OF SERVICE: 10/12/2024 ATTENDING PHYSICIAN: Nenita Ken II, M.D. 2nd opinion, referred by Dr. Stanley, [facility] diabetes clinical manager. CHIEF COMPLAINT: Pain in the right hip [...] history of heart disease. No cardiac medication. Respiratory:No history of lung disease. Gastrointestinal: No history of ulcers. Endocrine: No history of diabetes. Heme: No history of phlebitis, blood clots or bleeding disorders. Urinary: No history of urinary tract infection. Allergies: WHEAT, DAIRY. No metal allergies. PHYSICAL EXAMINATION: A 69-year-old 5 foot 6 inches and 114 pounds. BMI is 20.98. Patient complainsof pain mainly in her right groin, but [...] eczema which she had and is now beingcontrolled with light therapy. The patient is in the process of having allergy testing through [facility]. Recommend that she certainly gets this eczema issue corified prior to surgery. The risks and anticipated results of surgery were thoroughly gone over. The patient is thinking about having something done this summer. She will be back in touch with us. DICTATED BY: Uday Edwards II/ADONAY JOB# [id number] documented in this encounterOhiohealth Mansfield Hospital01-23-2025 [facility]01-22-2025 NoteOhiohealth01-22-2025 History of Present illness Narrative* Sonam Freitas RN - 10/11/2024 3:44 PM EST Pt is identified by name and birthdate: Yes Allergies reviewed: Yes Medication - prescribed and OTC reviewed and updated: Yes Latex allergy: no. Is the patient having any pain? No 0 on a scale of 0 to 10 See flow sheet for treatment record. Protective eyewear given and worn. Sonam Freitas RN October 11, 2024 3:45 PM documented in this encounterOhiohealth Mansfield Hospital01-20-2025 NoteOhio[facility]01-20-2025 History of Present illness Narrative* Kierra Harris RN - 10/09/2024 3:26 PM EST Pt is identified by name and birthdate: Yes Allergies reviewed: Yes Medication - prescribed and OTC reviewed and updated: Yes Latex allergy: no. Is the patient having any pain? No 0 on a scale of 0 to 10 See flow sheet for treatment record. Protective eyewear given and worn. Kierra Harris RN documented in this encounterOhio[facility]25 [facility] History of Present illness Narrative* Sonam Freitas RN - 10/06/2024 2:29 PM EST Pt is identified by name and birthdate: Yes Allergies reviewed: Yes Medication - prescribed and OTC reviewed and updated: Yes Latex allergy: no. Is the patient having any pain? No 0 on a scale of 0 to 10 See flow sheet for treatment record. Protective eyewear given and worn. Sonam Freitas RN October 06, 2024 2:29 PM documented in this encounterOhiohealth [facility]field Hospital01-13-2025 [facility]01[facility] History of Present illness Narrative* Kierra Harris RN - 10/02/2024 4:51 PM EST Pt is identified by name and birthdate: Yes Allergies reviewed: Yes Medication - prescribed and OTC reviewed and updated: Yes Latex allergy: no. Is the patient having any pain? No 0 on a scale of 0 to 10 See flow sheet for treatment record. Protective eyewear given and worn. Kierra Harris RN October 02, 2024 4:51 PM documented in this encounterOhiohealth [facility]01-10-2025 History of Present illness Narrative* Conner Stanley DO - 09/29/2024 10:00 AM EST Images from the original note were not included. Mirian Corrales is a 68 y.o. female presents with chief complaint of Two-week office visit (Labs and X-rays completed ptv) HPI: HPI History of Present Illness The patient presents for evaluation of gastrointestinal issues, rash, and right hip pain that radiates into groin GI She has been experiencing gastrointestinal disturbances for an extended period, characterized by bloating and abdominal pain after meals. She is a vegetarian and maintains a consistent diet, primarily consuming vegetables. She also takes daily probiotics. She recalls a previous episode of severe throat and esophageal burning after consuming extra hot chili powder, which was not alleviated by yogurt. She reports that fresh fruits and vegetables alleviate her symptoms, while certain salad dressings exacerbate them. She suspects a sensitivity to gluten or a general food intolerance. She has beenadhering to a gluten-free diet, although she has not been tested for celiac disease. She reports noissues with wheat consumption. She recalls a previous episode of severe throat and esophageal burning after consuming extra hot chili powder, which was not alleviated by yogurt. She has beenusing digestive enzymes for a significant duration, which have provided some relief. RASH She developed a rash during her last visit to [facility]. Treated for scabies by Derm x 2-- developed full body pruritic rash that spared only the palms -- extensive evaluation including hospitalization @ [facility]. which was finally diagnosed as eczema secondary to an allergy. She believes the rash is food-r elated. She is scheduled for allergy testing in 10/2024, starting with hair products, dish soaps, and shower gels. She is currently undergoing light therapy at [place]. She has discontinued treatment with Dr. Pink due to dissatisfaction with his care. She has been advised to document all personal care products used for further testing. Her back has not been clear enough for testing, but her arms and legs are currently rash-free. She was on several rounds of high dose steroids , eventually and fairly recently weaned off. She has always had high energy levels but has been feeling exhausted since discontinuing prednisone. RIGHT HIP PAIN She has been experiencing intermittent right hip pain, which she suspects may be due to arthritis. Hip pain radiates into groin, aggravated by maneuvers that result in hip joint motion. ALLERGIES The patient has a sensitivity to GLUTEN and DAIRY. MEDICATIONS Current: digestive enzymes, probiotic HISTORIES: PAST MEDICAL HISTORY: Past Medical History: Diagnosis Date Eczema Osteoporosis (CMS/HCC) Pelvic pain in female Vertigo 2018 [facility] SURGICAL HISTORY: Past Surgical History: Procedure Laterality Date PAP SMEAR 09/14/2019 negative TENDON REPAIR Left 1998 forearm SOCIAL HISTORY: Social History Tobacco Use Smoking status: Never Smokeless tobacco: Never Substance Use Topics Alcohol use: Yes Alcohol/week: 1.0 standard drink of alcohol Types: 1 Glasses of wine per week Comment: occasionally Drug use: Never Depression: Not at risk (06/25/2023) PHQ-2 PHQ-2 Score: 0 FAMILY HISTORY: Family History Problem Relation Name Age of Onset Hypertension Mother Melanoma Father Hypertension Father Pancreatic cancer Brother Pancreatic cancer Brother Breast cancer Daughter MEDICATIONS: Current Outpatient Medications Medication Instructions calcium carbonate 1,500 mg, Daily cholecalciferol (VITAMIN D-3) 800 Units, Daily Digestive Enzyme capsule as directed Orally fexofenadine (SHANTELLE) 60 mg, Daily magnesium 200 mg, Every 24 hours Multiple Vitamin (Multi Vitamin) tablet Every 24 hours Probiotic chewable tablet as directed Orally triamcinolone (Kenalog) 0.1 % cream APPLY TO THE AFFECTED AREA(S) topically 2-3 times DAILY NEEDED *avoid face and groin* ALLERGIES: Allergies Allergen Reactions Diphenhydramine Other Reaction(s): SENSITIVITY-eyes dilated Gluten Meal Other Reaction(s): abdominal pain Tilactase Swelling Bloating Wheat Swelling PHYSICAL EXAM: Visit Vitals Smoking Status Never BP Readings from Last 3 Encounters: 09/19/24 110/70 07/24/24 130/72 04/28/24 110/60 Wt Readings from Last 3 Encounters: 09/19/24 114 lb 07/24/24 114 lb 05/03/24 114 lb Physical Exam Physical Exam Well appearing ,pleasant thin 68 y/o WF Faded confluent areas of rash on back and abdomen No synovitis fingers/wrists/elbow/shoulders/knees/ankles Hip rom results in groin pain Gait normal No lymphadenopathy axillary/cervical Abd no splenomegaly or masses Pulses 2+ equal bilaterally rad/PT/ Lungs clear HRRR no murmurs Results Imaging Ultrasound showed an 8 mm fibroid within the uterus and two small structures within the left ovary. ASSESSMENT AND PLAN: Assessment & Plan 1. Gastrointestinal issues. She has a longstanding history of gastrointestinal problems, including sensitivity to gluten and dairy, and abdominal pain. She has been managing her symptoms with digestive enzymes and probiotics. An EGD will be scheduled to further investigate her symptoms. She has been advised to discontinue hergluten- free diet prior to the procedure to avoid potential false-negative results. 2. Rash. She has a history of a diffuse rash, initially suspected to be scabies, but later identified as eczema potentially triggered by an allergy. She has been undergoing light therapy at [place] and has seen improvement in her skin texture. Allergy testing is scheduled for October, starting with hair products and dish soaps. She has been advised to continue monitoring her symptoms and report any changes. 3. Breast cysts. She has reported the presence of cysts in her breasts, which were evaluated by her data visualization developer andfound to be benign. She has been advised to continue regular monitoring and follow up with her data visualization developer as needed. 4. Right hip pain. She has been experiencing moderate to severe pain in her right hip, with radiating pain into the groin. An x-ray has shown moderate to severe narrowing of the hip joint. An MRI will be ordered to rule out avascular necrosis potentially caused by previous high-dose steroid use. She has been advised to consult with an library media specialist who focuses on hip conditions. 5. Adrenal insufficiency. She has reported significant fatigue and low energy levels, which may be related to previous long-term prednisone use. A cortisol test will be conducted to assess for potential adrenal insufficiency. PROCEDURE The patient has a history of a lipoma in her back, which was surgically removed. documented in this encounterThe Rehabilitation [id number] [facility]01-[facility] History of Present illness Narrative* Sonam Freitas RN - 09/27/2024 3:48 PM EST Pt is identified by name and birthdate: Yes Allergies reviewed: Yes Medication - prescribed and OTC reviewed and updated: Yes Latex allergy: no. Is the patient having any pain? No 0 on a scale of 0 to 10 See flow sheet for treatment record. Protective eyewear given and worn. Sonam Freitas RN September 27, 2024 3:50 PM documented in this encounterOhiohealth [facility]field Hospital01-06-2025 [facility]01-06-2025 History of Present illness Narrative* Sonam Freitas RN - 09/25/2024 3:28 PM EST Pt is identified by name and birthdate: Yes Allergies reviewed: Yes Medication - prescribed and OTC reviewed and updated: Yes Latex allergy: no. Is the patient having any pain? No 0 on a scale of 0 to 10 See flow sheet for treatment record. Protective eyewear given and worn. Sonam Freitas RN September 25, 2024 3:29 PM documented in this encounterOhiohealth Mansfield Hospital12-31-2024 History of Present illness Narrative* Pili Evans NP - 09/19/2024 10:30 AM EST Images from the original note were not included. Mirian Corrales is a 68 y.o. female presents with chief complaint of Rash, Loss of Hair, and RT Hip Pain HPI: HPI Patient looking for second opinion on chronic rash. This rash has been going on since February 2024. History of Present Illness The patient presents for evaluation of a rash, fatigue, hair loss, hip pain, and sleep disturbance. She is seeking a second opinion regarding a persistent rash that has been present since February 2024. The rash initially covered her entire body but has since been brought under some control through phototherapy, which she undergoes 3 times weekly. She has previously consulted with local dermatologists and allergists, including Dr. Cagle, who [facility]. However, she was unable to undergo this testing due to her concurrent use of prednisone. She has an upcoming appointment on 11/13/2024 for patch testing on her back, with a follow-up evaluation scheduled for 11/17/2024. She reports that her blood count was elevated during the peak of the rash, but it has since improved. She has not consulted with a operations professional. She has been off prednisone for 2 months and reports experiencing side effects from the medication. She has been on prednisone intermittently since the second week of February 2024, receiving both injections and prescriptions from various physicians. She discontinued prednisone in June 2024 after a 4-month course. She reports no weight loss but notes that she has not gained any weight. She has a history of low blood pressure which she attributes to prednisone use. She reports no chest pain, shortness of breath, or cough. She has not undergone a biopsy of her lymph nodes. She has tried red light therapy for her rash but found it i neffective. She experiences recurrent rashes around her waist and upper back, which are less severethan those in April 2024. She also reports rashes on her face, mouth, and ears. She feels better overall but not completely normal. She reports feeling tired and itchy, which she finds depressing. She reports feeling fatigued and has not regained her weight since discontinuing prednisone. She has also experienced hair loss, which she attributes to prednisone use. Her daughter, a nurse, has suggested that she may have a protein deficiency or vitamin B12 deficiency. She has not consulted with a operations professional. She has been off prednisone for 2 months and reports experiencing side effects from the medication. She has been on prednisone intermittently since the second week of February 2024, receiving both injections and prescriptions from various physicians. She discontinued prednisone in June 2024 after a 4- month course. She reports no weight loss but notes that she has not gained any weight. She has a history of low blood pressure and rapid heart rate, which she attributes to prednisoneuse. She has been experiencing intermittent hip pain for several years, which she attributes to wear andtear. She reports difficulty walking upon waking and constant pain during exercise. She also experiences pain when ascending stairs or carrying heavy objects. She has not consulted with an orthopedicdoctor and has not undergone an MRI or x-ray of her hip. She believes she has arthritis based on previous imaging studies. She has not had a biopsy of her lymph nodes. She reports poor sleep quality, often waking up every few hours. She typically goes to bed around midnight and wakes up between 8:30 AM and 10:00 AM. She does not take daytime naps. She occasionally has difficulty falling asleep but more frequently struggles with maintaining sleep. She reports no urinary frequency at night but notes that she often wakes up due to hip pain or itching. Supplemental Information She has consulted with her data visualization developer regarding twinging pain and underwent an ultrasound and diagnostic breast exam due to lumps detected in a previous mammogram. She has not had a colonoscopy since 2019. She reports no changes in bowel habits. ALLERGIES The patient has always been sensitive to GLUTEN and DAIRY and now finds sensitivity to SOY SAUCE. MEDICATIONS Discontinued: prednisone HISTORIES: PAST MEDICAL HISTORY: Past Medical History: Diagnosis Date [facility]czema [facility] Pelvic pain in female Vertigo 2018 [facility] SURGICAL HISTORY: Past Surgical History: Procedure Laterality Date PAP SMEAR 09/14/2019 negative TENDON REPAIR Left 1998 forearm SOCIAL HISTORY: Social History Tobacco Use Smoking status: Never Smokeless tobacco: Never Substance Use Topics Alcohol use: Yes Alcohol/week: 1.0 standard drink of alcohol Types: 1 Glasses of wine per week Comment: occasionally Drug use: Never Depression: Not at risk (06/25/2023) PHQ-2 PHQ-2 Score: 0 FAMILY HISTORY: Family History Problem Relation Name Age of Onset Hypertension Mother Melanoma Father Hypertension Father Pancreatic cancer Brother Pancreatic cancer Brother Breast cancer Daughter MEDICATIONS: Current Outpatient Medications Medication Instructions calcium carbonate 1,500 mg, Oral, Daily cholecalciferol (VITAMIN D-3) 800 Units, Oral, Daily Digestive Enzyme capsule as directed Orally fexofenadine (SHANTELLE) 60 mg, Oral, Daily magnesium 200 mg, Every 24 hours Multiple Vitamin (Multi Vitamin) tablet Every 24 hours Probiotic chewable tablet as directed Orally triamcinolone (Kenalog) 0.1 % cream APPLY TO THE AFFECTED AREA(S) topically 2-3 times DAILY NEEDED *avoid face and groin* ALLERGIES: Allergies Allergen Reactions Diphenhydramine Other Reaction(s): SENSITIVITY-eyes dilated Gluten Meal Other Reaction(s): abdominal pain Tilactase Swelling Bloating Wheat Swelling PHYSICAL EXAM: Visit Vitals Smoking Status Never BP Readings from Last 3 Encounters: 07/24/24 130/72 04/28/24 110/60 03/27/24 98/60 Wt Readings from Last 3 Encounters: 07/24/24 114 lb 05/03/24 114 lb 04/28/24 118 lb Physical Exam Constitutional: Comments: Very thin HENT: Head: Comments: Thinning hair throughout. Negative hair pull test. No focal lesions Cardiovascular: Rate and Rhythm: Normal rate and regular rhythm. Heart sounds: Normal heart sounds. Pulmonary: Effort: Pulmonary effort is normal. Breath sounds: Normal breath sounds. Abdominal: General: Bowel sounds are normal. Palpations: Abdomen is soft. Musculoskeletal: Cervical back: Neck supple. Neurological: Mental Status: She is alert. Physical Exam Lungs were auscultated. Results Laboratory Studies Hematocrit is a bit low. Platelets are high. White blood cell count was high. Imaging CT of abdomen and pelvis in April 2024 showed no mass in adrenals. ASSESSMENT AND PLAN: Assessment & Plan 1. Rash. The patient has been experiencing a full-body rash since February, which has been partially controlled with phototherapy 3 times a week. She has been off prednisone for 2 months. The rash is suspected cynthia due to an allergy, possibly food-related. Previous tests for autoimmune diseases, TB, and IgG levels [facility]. She is scheduled for patch testing on 11/13/2024 and anevaluation on 11/17/2024. She is advised to continue phototherapy and follow up [facility] for [facility] testing. If she would like a second opinion, [facility]. 2. Fatigue. The patient reports significant fatigue since discontinuing prednisone 2 months ago. Differential diagnoses include adrenal insufficiency, iron deficiency, and thyroid dysfunction. Her CBC shows a low hematocrit and high platelets, suggesting possible iron deficiency. A TSH test, blood counts, and iron levels will be checked. An adrenal stimulation test will be conducted to assess for adrenal insufficiency. Protein levels will also be checked. She is advised to maintain a consistent wake-up time of 8:30 AM daily to help reset her sleep rhythm. 3. Hair Loss. The patient reports hair loss, which may be related to her recent health issues and potential iron deficiency. Iron levels will be checked as part of the blood work. 4. Hip Pain. The patient reports worsening hip pain, especially after discontinuing prednisone. An x-ray of the right hip will be ordered to evaluate the cause of the pain. She has chronic right hip pain- Concernfor avascular necrosis given recent steroid use. 5. Sleep Disturbance. The patient reports difficulty staying asleep, often waking up after 2-3 hours. This may be relatedto her recent health issues and prednisone use. She is advised to maintain a consistent wake-up time of 8:30 AM daily to help reset her sleep rhythm. Further evaluation for thyroid dysfunction will be conducted as part of the blood work. 6. History of leukocytosis with thrombocytosis Repeat labs. Consider hematology referral. CT Chest and CT ABD/PEL demonstrated mediastinal, bilateral axillary, and subpectoral/intramammary, and external iliac lymphadenopathy. Patient notes subjective improvement adenopathy presence on abdominal CT from her hospitalization. Patient reports that her adenopathy has improved based on her observation. There is a scheduled upcoming repeat CT scheduled. No record of hematology consult. Consider Referral at next visit pending lab results. 7. Right lower quadrant pain She followed the ADMINISTRATIVE SUPPORT COORDINATOR. They did US. Noted some abnormalities but did not attribute her pain to them.Last colonoscopy was in 2019. Consider repeating in the future especially if iron is low. Will needfurther evaluation at next appointment. Follow-up The patient will follow up in 2 weeks to review the results of the blood tests. 44 minutes spent on visit documented in this encounterThe Rehabilitation [id number] NoteOhiohealth12-30-2024 History of Present illness Narrative* Austin Boss RN - 09/18/2024 1:16 PM EST Pt is identified by name and birthdate: Yes Allergies reviewed: Yes Medication - prescribed and OTC reviewed and updated: Yes Latex allergy: no. Is the patient having any pain? No 0 on a scale of 0 to 10 See flow sheet for treatment record. Protective eyewear given and worn. Austin Boss RN September 18, 2024 1:16 PM documented in this encounterOhiohealth Mansfield Hospital12-23-2024 [facility]12[facility] History of Present illness Narrative* Austin Boss RN - 09/11/2024 1:37 PM EST Pt is identified by name and birthdate: Yes Allergies reviewed: Yes Medication - prescribed and OTC reviewed and updated: Yes Latex allergy: no. Is the patient having any pain? No 0 on a scale of 0 to 10 See flow sheet for treatment record. Protective eyewear given and worn. Austin Boss RN September 11, 2024 1:38 PM documented in this encounterOhiohealth Mansfield Hospital12-20-2024 NoteOhiohealth12-20-2024 History of Present illness Narrative* Kierra Harris RN - 09/08/2024 4:22 PM EST Pt is identified by name and birthdate: Yes Allergies reviewed: Yes Medication - prescribed and OTC reviewed and updated: Yes Latex allergy: no. Is the patient having any pain? No 0 on a scale of 0 to 10 See flow sheet for treatment record. Protective eyewear given and worn. Kierra Harris RN September 08, 2024 4:23 PM documented in this encounterOhiohealth Mansfield Hospital12-18-2024 NoteOhiohealth12-18-2024 History of Present illness Narrative* Kierra Harris RN - 09/06/2024 4:09 PM EST Pt is identified by name and birthdate: Yes Allergies reviewed: Yes Medication - prescribed and OTC reviewed and updated: Yes Latex allergy: no. Is the patient having any pain? No 0 on a scale of 0 to 10 See flow sheet for treatment record. Protective eyewear given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 was significantly improved. Lessred overall and clearance of some areas. Last [...] symptoms: previously Biopsy 04/21/24 --> contacted outside high school learning support teacher Shaniqua Good. Nurse contacted dermatologistto see if they can fax a prelim [...] clinical presentation, patient advised to go to [facility] ED for evaluation by our derm consult team. Patient advised of potential adverse effects of any medications discussed above and what to do if patient experiences any of these, including contacting clinic. Answered all questions. Patient expressed understanding. Return to clinic: advised to go to [facility] ED for derm evaluation. The patient is seen and examined by Dr. De Souza and the following reflects his/her service. Scribed by Tammy Matthews LPN I agree with the Chief Complaint, ROS, and Past Histories independently gathered by the clinical direct support worker and the remaining scribed note accurately describes my personal service to the patient. Ebonie De Souza MD documented in this encounterOhiohealth Mansfield Hospital08-13-2024 Telephone encounter Note * Telephone Encounter - Ebonie Lorenzana - 05/02/2024 1:16 PM EDT Received OMR and Dermatopathology report. Scanned into the chart. [facility]-13-[facility]24 Miscellaneous Notes* Telephone Encounter - Ebonie Lorenzana - 05/02/2024 1:16 PM EDT Received OMR and Dermatopathology report. Scanned into the chart. documented in this encounterOhiohealth Mansfield Hospital08-11-2024 Telephone encounter Note * Telephone Encounter - Ebonie De Souza MD - 04/30/2024 1:33 PM EDT Clinical question: rash Location(s): see below Duration: [...] message schedulers for follow up appointment. Ebonie De Souza MD [facility] Work Phone: 1(927) 246-276408-11-2024 Miscellaneous Notes* Telephone Encounter - Ebonie De Souza MD - 04/30/2024 1:33 PM EDT Clinical question: rash Location(s): see below Duration: [...] message schedulers for follow up appointment. Ebonie De Souza MD documented in this encounterOhiohealth Mansfield Hospital08-05-2024 Telephone encounter Note * Telephone Encounter - Ebonie Lorenzana - 04/24/2024 12:21 PM EDT Called and spoke with patient and advised her we need her outside medicals records faxed to us. Provided patient with fax # and she will work on getting the records over to us. [facility]08-05-2024 Miscellaneous Notes* Telephone Encounter - Ebonie Lorenzana - 04/24/2024 12:21 PM EDT Called and spoke with patient and advised her we need her outside medicals records faxed to us. Provided patient with fax # and she will work on getting the records over to us. * Telephone Encounter - Leola Barone RN - 04/24/2024 8:34 AM EDT Patient has been seen by outside high school learning support teacher - can we assist in getting records sent to [facility] fax? Leola Barone RN April 24, 2024 8:34 AM * Telephone Encounter - Leola Barone RN - 04/24/2024 8:34 AM EDT ----- Message from Radha Sepulveda sent at [...] to: self Call patient at: at home [phone] (home) [phone] (cell) Payor: MEDICARE / Plan: MEDICARE A AND B / Product Type: Medicare / Radha Sepulveda [facility] encounter Note * Telephone Encounter - Leola Barone RN - 04/24/2024 8:34 AM EDT Patient has been seen by outside high school learning support teacher - can we assist in getting records sent to [facility] fax? Leola Barone RN April 24, 2024 8:34 AM [facility] Telephone encounter Note* Telephone Encounter - Leola Barone RN - 04/24/2024 8:34 AM EDT ----- Message from Radha Sepulveda sent at [...] to: self Call patient at: at home [phone] (home) [phone] (cell) Payor: MEDICARE / Plan: MEDICARE A AND B / Product Type: Medicare / Radha Sepulveda [facility] note No data available for this section [facility] noteNo assessment information available [facility] Work Phone: Evaluation note* Diagnosis Rash and nonspecific skin eruption- Primary Rash and other nonspecific skin eruption documented in this encounter [facility] note* Diagnosis Rash and nonspecific skin eruption- Primary Rash and other nonspecific skin eruption documented in this encounter [facility] note* Diagnosis Allergic contact dermatitis due to other agents- Primary documented in this encounter [facility] note* Diagnosis Rash and nonspecific skin eruption- Primary Rash and other nonspecific skin eruption documented in this encounter [facility] note* Diagnosis Rash and nonspecific skin eruption- Primary Rash and other nonspecific skin eruption documented in this encounter [facility] note* Diagnosis Rash and nonspecific skin eruption- Primary Rash and other nonspecific skin eruption Spongiotic dermatitis Contact dermatitis and other eczema, due to unspecified cause [facility]* Diagnosis Spongiotic dermatitis- Primary Contact dermatitis and other eczema, due to unspecified cause [facility]* Diagnosis Spongiotic dermatitis- Primary Contact dermatitis and other eczema, due to unspecified cause [facility]* Diagnosis Spongiotic dermatitis- Primary Contact dermatitis and other eczema, due to unspecified cause [facility]* Diagnosis Spongiotic dermatitis- Primary Contact dermatitis and other eczema, due to unspecified cause documented in this encounter [facility] note* Diagnosis Spongiotic dermatitis- Primary Contact dermatitis and other eczema, due to unspecified cause [facility] Diagnosis Spongiotic dermatitis- Primary Contact dermatitis and other eczema, due to unspecified cause [facility]* Diagnosis Chronic eczema Contact dermatitis and other eczema, due to unspecified cause Well woman exam with routine gynecological exam Routine gynecological examination Postmenopausal state Asymptomatic postmenopausal status (age-related) (natural) Breast cancer screening by mammogram Bilateral breast cysts Uterine cyst [facility] Diagnosis Rash and nonspecific skin eruption- Primary Rash and other nonspecific skin eruption documented in this encounter [facility] note* Diagnosis Rash and nonspecific skin eruption- Primary Rash and other nonspecific skin eruption documented in this encounter [facility] note* Diagnosis Spongiotic dermatitis- Primary Contact dermatitis and other eczema, due to unspecified cause documented in this encounter [facility] note* Diagnosis Spongiotic dermatitis- Primary Contact dermatitis and other eczema, due to unspecified cause documented in this encounter [facility] note* Diagnosis Spongiotic dermatitis- Primary Contact dermatitis and other eczema, due to unspecified cause documented in this encounter [facility] note* Diagnosis Spongiotic dermatitis- Primary Contact dermatitis and other eczema, due to unspecified cause documented in this encounter [facility] note* Diagnosis Spongiotic dermatitis- Primary Contact dermatitis and other eczema, due to unspecified cause documented in this encounter [facility] note* Diagnosis Spongiotic dermatitis- Primary Contact dermatitis and other eczema, due to unspecified cause documented in this encounter [facility] note* Diagnosis Contact dermatitis, unspecified contact dermatitis type, unspecified trigger- Primary documented in this encounter [facility] note* Diagnosis Spongiotic dermatitis- Primary Contact dermatitis and other eczema, due to unspecified cause documented in this encounter [facility] note* Diagnosis Spongiotic dermatitis- Primary Contact dermatitis and other eczema, due to unspecified cause documented in this encounter [facility] note* Diagnosis Spongiotic dermatitis- Primary Contact dermatitis and other eczema, due to unspecified cause documented in this encounter [facility] note* Diagnosis Spongiotic dermatitis- Primary Contact dermatitis and other eczema, due to unspecified cause documented in this encounter [facility] note* Diagnosis Spongiotic dermatitis- Primary Contact dermatitis and other eczema, due to unspecified cause documented in this encounter [facility] note* Diagnosis Spongiotic dermatitis- Primary Contact dermatitis and other eczema, due to unspecified cause documented in this encounter [facility] note* Diagnosis Spongiotic dermatitis- Primary Contact dermatitis and other eczema, due to unspecified cause [facility]* Diagnosis Fatigue, unspecified type- Primary BMI < 18.5 Thrombocytosis Essential thrombocythemia Non-celiac gluten sensitivity Right lower quadrant pain Spongiotic dermatitis Contact dermatitis and other eczema, due to unspecified cause [facility] Diagnosis Spongiotic dermatitis- Primary Contact dermatitis and other eczema, due to unspecified cause [facility] Diagnosis Spongiotic dermatitis- Primary Contact dermatitis and other eczema, due to unspecified cause [facility]* Diagnosis Pain in joint of right hip- Primary Primary osteoarthritis of right hip History of steroid therapy Personal history of systemic steroid therapy Other fatigue Non-celiac gluten sensitivity Chronic eczema Contact dermatitis and other eczema, due to unspecified cause Age-related osteoporosis without current pathological [facility] ([facility]) Primary osteoarthritis involving multiple joints Abnormal celiac antibody panel documented [facility]* Diagnosis Spongiotic dermatitis- Primary Contact dermatitis and other eczema, due to unspecified cause [facility]* Diagnosis Spongiotic dermatitis- Primary Contact dermatitis and other eczema, due to unspecified cause [facility]* Diagnosis Spongiotic dermatitis- Primary Contact dermatitis and other eczema, due to unspecified cause [facility]* Diagnosis Spongiotic dermatitis- Primary Contact dermatitis and other eczema, due to unspecified cause Primary osteoarthritis of right hip- Primary Primary localized osteoarthrosis, pelvic region and thigh [facility]* Diagnosis Primary osteoarthritis of right hip Primary localized osteoarthrosis, pelvic region and thigh [facility]* Diagnosis Spongiotic dermatitis- Primary Contact dermatitis and other eczema, due to unspecified cause [facility]* Diagnosis Primary osteoarthritis of right hip- Primary Primary localized osteoarthrosis, pelvic region and thigh Primary osteoarthritis of right hip Primary localized osteoarthrosis, pelvic region and thigh [facility]* Diagnosis Spongiotic dermatitis- Primary Contact dermatitis and other eczema, due to unspecified cause [facility]* Diagnosis Spongiotic dermatitis- Primary Contact dermatitis and other eczema, due to unspecified cause [facility]* Diagnosis Spongiotic dermatitis- Primary Contact dermatitis and other eczema, due to unspecified cause [facility]* Diagnosis Spongiotic dermatitis- Primary Contact dermatitis and other eczema, due to unspecified cause [facility]* Diagnosis Spongiotic dermatitis- Primary Contact dermatitis and other eczema, due to unspecified cause [facility]* Author Rey Schrader [facility] Authored November 06, 2024 1:44pm 69-year-old female referred to the GI clinic for evaluation of abnormal transglutaminase antibody. Patient has abdominal pain and bloating -Will arrange for EGD with duodenal biopsy to assess for celiac disease. -Patient was counseled about gluten-free diet -Patient already had a DEXA scan which showed osteoporosis, she has vitamin D deficiency and already on vitamin D supplements -I recommended the patient to get pneumococcal vaccine but patient is not interested [facility] Work Phone: Evaluation note* Diagnosis Spongiotic dermatitis- Primary Contact dermatitis and other eczema, due to unspecified cause [facility]* Diagnosis Contact dermatitis and other eczema, due to unspecified cause- Primary [facility]* Diagnosis Contact dermatitis and other eczema, due to unspecified cause- Primary [facility]* Diagnosis Adverse reaction to food, initial encounter- Primary Peripheral eosinophilia Eosinophilia Seasonal allergic rhinitis due to pollen [facility]* Diagnosis Spongiotic dermatitis- Primary Contact dermatitis and other eczema, due to unspecified cause [facility]* Diagnosis Spongiotic dermatitis- Primary Contact dermatitis and other eczema, due to unspecified cause [facility]* Diagnosis Eczema, unspecified type- Primary [facility]* Diagnosis Eczema, unspecified type- Primary [facility]* Diagnosis Contact dermatitis due to preservative- Primary Contact dermatitis and other eczema due to other specified agent Allergic contact dermatitis due to rubber chemical Contact dermatitis and other eczema due to other chemical products Rash and nonspecific skin eruption Rash and other nonspecific skin eruption [facility]* Diagnosis Eczema, unspecified type- Primary [facility]* Diagnosis Pancreatic disorder- Primary Unspecified disease of pancreas documented [facility]* Diagnosis Eczema, unspecified type- Primary [facility]* Diagnosis Eczema, unspecified type- Primary [facility]* Diagnosis Eczema, unspecified type- Primary documented in this encounter [facility] note* Diagnosis Medicare annual wellness visit, subsequent- Primary Chronic eczema Contact dermatitis and other eczema, due to unspecified cause Colon cancer screening Special screening for malignant neoplasms, colon Family history of pancreatic cancer Family history of malignant neoplasm of gastrointestinal tract Weight loss, unintentional Loss of weight Generalized postprandial abdominal pain Nausea Nausea alone Screening mammogram for breast cancer documented in this encounter [facility] note* Diagnosis Eczema, unspecified type- Primary documented in this encounter [facility] note* Diagnosis Eczema, unspecified type- Primary documented in this encounter [facility] note* Diagnosis Eczema, unspecified type- Primary documented in this encounter [facility] note* Diagnosis Eczema, unspecified type- Primary documented in this encounter [facility] note* Diagnosis Swelling of thigh Leiomyoma Other benign neoplasm of connective and other soft tissue of unspecified site Lump of axilla, right documented in this encounter [facility] note* Diagnosis Eczema, unspecified type- Primary Ovarian cancer genetic susceptibility- Primary Genetic susceptibility to malignant neoplasm of ovary Other abnormal tumor markers documented in this encounter [facility] note* Diagnosis Eczema, unspecified type- Primary [facility]* Diagnosis Eczema, unspecified type- Primary documented in this encounter [facility] note* Diagnosis Eczema, unspecified type- Primary documented in this encounter [facility] note* Diagnosis Eczema, unspecified type- Primary documented in this encounter [facility] note* Diagnosis 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 documented in this encounter [facility] note* Diagnosis 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 [facility]* Diagnosis 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 PONV (postoperative nausea and vomiting)- Primary Nausea with vomiting 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 Scheduled for surgery. Has been getting chemo. * Assessment & Plan Note - Tracy De Guzman PA-C - 05/01/2025 5:03 PM EDT Associated Problem(s): Anemia Assessment: Most recent CBC ordered by surgeon Dr. Whalen COMPLETE BLOOD COUNT (04/27/2025 4:41 PM) Stable compared to prior CBC Patient recently has been getting chemo, most recent treatment 04/20/2025 Advised patient to continue to follow with oncology for the anemia * Assessment & Plan Note - Tracy De Guzman PA-C - 05/01/2025 2:22 PM EDT Associated Problem(s): PONV (postoperative nausea and vomiting) Assessment: hx PONV and dry heaves documented in this encounter [facility] note* Diagnosis PONV (postoperative nausea and vomiting)- Primary Nausea with vomiting Anemia, unspecified type Malignant neoplasm of ovary, unspecified laterality (HCC) Educational circumstances- Primary Educational circumstance 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 documented in this encounter [facility] note* Diagnosis PONV (postoperative nausea and vomiting)- Primary Nausea with vomiting Anemia, unspecified type Malignant neoplasm of ovary, unspecified laterality (HCC) Malignant neoplasm of bilateral ovaries (HCC)- Primary Post-operative state Other postprocedural status [facility] Diagnosis PONV (postoperative nausea and vomiting)- Primary Nausea with vomiting Anemia, unspecified type Malignant neoplasm of ovary, unspecified laterality (HCC) Malignant neoplasm of bilateral ovaries (HCC)- Primary BRCA1 gene mutation positive Post-operative state Other postprocedural status [facility] N[facility]* One brother age [...] ago. Non-smoker. 5'6 weighs 125 lbs. Exercisedaily. [facility] Work Phone: Hospital Discharge instructions Additional Instructions Elevate your extremities Follow-up with dermatology tomorrow to see if they want you to start your new prescription Return here if any problems persist or worsen include chest pain, shortness of breath or any other concern[facility] Work Phone: Hospital Discharge instructionsAmbulatory Orders* Oncology Histology Time Frame: 1 Day, Location: Determined By Patient [facility] Work Phone: InstructionsNot on filedocumented in this encounter [facility] Future Ad Labs SystemProgress note Author Clarence Vines [facility] Note Date/Time February 09, 2025 12:08 pm [facility] [place] [address] Cancer Center Note Signed Patient: Mirian Corrales MR#: [id number] : 1955 Acct:[id number] Age/Sex: 69 / F Type: DEP AMB Date of Service: 02/09/25 Copies to: Conner Stanley,DO~ Assessment & Plan A/P Orders: Orders Comprehensive Metabolic Panel 02/09/25 C56.9 - Malignant neoplasm of unspecified ovary Complete Blood Count Auto Diff 02/09/25 C56.9 - Malignant neoplasm of unspecified ovary Toxicity Check 02/09/25 C56.9 - Malignant neoplasm of unspecified ovary Medications: New ondansetron 8 mg PO Q8HR PRN 30 tabs 2RF nausea and vomiting CHEMO PLAN Treatment Plan Paclitaxel (175mg/m2) and Carboplatin Q21D ADMINISTRATIVE SUPPORT COORDINATOR/BREAST [Stopped February 09] No Active Chemotherapy History of Present Illness HPI HISTORY OF PRESENT ILLNESS 69-year-old female referred for adenopathy. Past medical history includes osteoarthritis, gluten sensitivity, osteoporosis, osteoarthritis, chronic eczema. She does not smoke and does not drink excessively. 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 She has seen Dr. Ro [facility]. 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 She recently saw Dr. Evans for right upper quadrant abdominal discomfort and bloating. Chronic constipation, controlled with magnesium. She had an EGD November 23, 2024 which was normal. Duodenal biopsies were negative for celiac disease. She also noted joint pain and rash. She was being set up for a CAT scan of the abdomen and pelvis and a colonoscopy and a gastric emptying study at that time.Subsequent colonoscopy had 2 sigmoid polyps removed. Repeat colonoscopy recommended in 3 years. She was found to have an abnormal transglutaminase antibody. She saw her agility instructor, Dr. Lan who noted right axillary adenopathy. Ultrasound and biopsy was ordered. Right axillary adenopathy prompted a biopsy on January 18, 2025. CT of the abdomen and pelvis from January 15, 2025 shows bibasilar atelectasis or scarring, tiny indeterminate hepatic hypodensities, no bowel or urinary tract obstruction, abdominal and pelvic lymphadenopathy recommending follow-up, imaging suggesting of lymphoma, suspected uterine fibroid, under distended urinary bladder with apparent wall thickening. There are small scattered subcentimeter hepatic hypodensities, largest at the dome. There were a few cysts at the time of the comparison MRI however there are more seen today than at that time. The gallbladder is partially contracted. No calcified gallstones are seen. The spleen, pancreas and adrenal glands showno acute findings. There are symmetric renal nephrograms, without hydronephrosis. Images through the pelvis show normal caliber [...] size. There are also a couple lymph nodesat the right groin which are slightly larger. There are mild degenerative changes at the hips. US R axilla Real-time ultrasound evaluation of the right axilla [...] measuring 11 x 7 x 8 mm. Her right axillary biopsy shows metastatic poorly differentiated carcinoma involving lymph node tissue. Positive for CK7, PAX8, AE1/AE3. Negative SOX10, CDX2, GATA3, CK20, synaptophysin, TTF-1. The morphologic and immunochemical findings raise the possibility of metastasis from gynecologic (mullerian) origin. has been seeing a dermatologic through [facility]. 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 she spent 6 days in hospital in april she had a full body rash. She had adenopathy at the time. they almost biopsy her lymph nodes and instead did skin biopsy revealed eczema and decided not to romeove her lymph nodes. allergy testing subsequently was negative. she is in phototherapy now through [facility] to control the rash Greta. she is very thin at baseline and has lost 15 lbs through this. she was on high dose prednisone for months. this was terrible for her. her rash covered most of her body excepting the palms and soles. 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 her dad had cancer, she lost two brothers to pancreatic cancer. grandmother also had cancer. 02/02/25 went over pet/ct noted mediastinal, right hilar, right axillary adeno[apthy. abnormal R love liver SUV 3.4 unclear if involved. Retroperitoneal adenopathy and L4 vertebral brandon metastatic disease. PET/CT FUSION IMAGING Neck: FDG avid bilateral level 3 lymph [...] Abnormal activity is seen involving the L4 vertebra body, SUV max 4.3. CT findings: No pneumothorax. No pericardial or pleural effusions. No free air or free fluid. IMPRESSION: 1. FDG avid lymph nodes involving [...] is needed, diagnostic mammography/ultrasound could BE performed. 02/09/25 to start carboplatin paclitaxel next week. does not like benadryl so offered her half dose. saw Dr. Whalen. PHYSICAL EXAMINATION ECOG PS:0 General : patient is alert and oriented to person place and time, no acute distress. Neck: no JVD or thyromegaly. Lymph: no cervical, supraclavicular, axillary adenopathy. Heart: regular rate and rhythm no murmurs rubs or gallops. Abdomen: soft, nontender,, nondistended, no hepatosplenomegaly. Lungs: clear to auscultation bilaterally. No wheezes, rales, rhonchi. Extremities: no clubbing cyanosis ASSESSMENT/PLAN Metastatic Stage IV ovarian cancer. Biopsy R axilla confirms. ca125 baseline 258. multifocal adenopathy, no obvious visceral disease Pet/ct noted mediastinal, right hilar, right axillary adenopathy. abnormal R lobe liver SUV 3.4 unclear if involved. Retroperitoneal adenopathy and L4 vertebral brandon metastatic disease. No evidence Mismatch repair abnormality. PATHOGENETIC BRIP1 mutation. will start carbo taxol jennifer. Discussed and will avoid port placement for now. Dr Whalen is comanaging. Dermatologic concerns. Ecxematous condition systemic severe. i am hesitant for immunotherapy. will consider in future as Dr whalen is primarily managing. She has been undergoing full body phototherapy since may or june 2024. will give 6 cycles and reconsider for resection and parp inhibitor. Intake Vitals/Pain Assessment 02/09/25 11:16 Weight 51.71 kg BP 122/73 Blood Pressure Location Lt brachial Position Sitting Temp 97.5 F L Temp Source Temporal Pulse 74 Pulse Source NIBP Respiration 18 Pulse Oximetry (%) 98 Oxygen Delivery Method room air Are you having pain? Yes Intake Visit Reasons: 1 week follow up Accompanied by: Spouse Allergies No Known Allergies Allergy (Verified 02/09/25 11:19) Home Medications - Last Reconciled 02/09/25 by ASHLIE Goodson [calcium vegan 1,000 mg PO DAILY] cholecalciferol (vitamin D3) 50 mcg PO DAILY digestive enzymes 1 cap PO DAILY ibuprofen 200 mg PO Q6HR PRN lactobacillus combination no.9 (Adult 50 Plus Probiotic) 4,000 mmu cells PO DAILY magnesium 200 mg PO DAILY Gastrointestinal Is the patient taking opioids for pain control?: No Bowel Protocol for Opioids Given: No Bowel Pattern: Regular Bowel Movement Aid(s): None Falls Fall Precaution Measures Taken: Patient in chair Nurse's Note: Patient is here Cancer treatment education bag and all contents including My cancer treatmentguide, signs and symptoms sheet, yellow fever card, magnet, caregiver resource list, [facility] well nutrition guide, and cancer rehabilitation pamphlet provided anddiscussed with patient. Patient also provided with copy of consent, doctors business card, and clinic contact information. Printed drug information also provided and discussed with patient. All questions were answered to patient?s satisfaction and patient verbalizes understanding. for a 1 week follow up with outside records for review. [facility] Medical History Medical History (Updated 02/09/25 @ 11:37 by Clarence Vines II, DO) Ovarian cancer Arthritis Right Hip Eczema Surgical History Surgical History (Updated 01/18/25 @ 08:50 by Saniya Sims RN) No pertinent past surgical history History of esophagogastroduodenoscopy (EGD) H/O colonoscopy Family History Family History Father Melanoma Brother Pancreatic cancer Grandparent Ovarian ca Daughter No problems noted. Social History Social History (Updated 01/23/25 @ 09:31 by DONNA Mayo) Smoking status: Never smoker Within the past year, how often did you have a drink containing alcohol: never AUDIT-C Alcohol total score: 0 AUDIT-C Alcohol score interpretation: A score less than 3 is consistent with normal alcohol consumption. In the past 12 months, have you used illegal drugs or prescription drugs for non-medical reasons?: No Results - [facility] (Med [facility]c) LAB RESULTS Corrected WBC 5.0 X10E3/uL (3.8-11.6) 01/29/25 07:55 5 Hgb 11.7 g/dL (11.8-15.4) L 01/29/25 07:55 5 Hct 34.8 % (34.0-46.4) 01/29/25 07:55 01/29/25 MCV 85.3 fl (80-100) 01/29/25 07:55 01/29/25 RDW 13.7 % (11.9-15.3) 01/29/25 07:55 01/29/25 Plt Count 370 x10E3/uL (150-450) 01/29/25 07:55 01/29/25 Sodium 137 mmol/L (136-145) 01/29/25 07:55 01/29/25 Potassium 4.3 mmol/L (3.5-5.1) 01/29/25 07:55 01/29/25 BUN 7 mg/dL (7-25) 01/29/25 07:55 01/29/25 Creatinine 0.67 mg/dL (0.60-1.20) 01/29/25 07:55 01/29/25 Glucose 100 mg/dL (70-100) 01/29/25 07:55 01/29/25 Est GFR (CKD-EPI) > 60.0 mL/Min 01/29/25 07:55 01/29/25 Calcium 9.6 mg/dL (8.6-10.3) 01/29/25 07:55 01/29/25 Total Bilirubin 0.6 mg/dl (0.3-1.0) 01/29/25 07:55 01/29/25 AST 28 U/L (13-39) 01/29/25 07:55 01/29/25 ALT 11 U/L (7-52) 01/29/25 07:55 01/29/25 Alkaline Phosphatase 70 U/L (34-104) 01/29/25 07:55 01/29/25 Total Protein 7.4 gm/dL (6.4-8.9) 01/29/25 07:55 01/29/25 Albumin 3.9 gm/dL (3.5-5.7) 01/29/25 07:55 01/29/25 Carcinoembryonic Ag 1.3 ng/mL (0.0-3.0) 01/29/25 07:55 5 CA 125 Antigen 287.0 U/mL (0.0-38.1) H 01/29/25 07:55 5 Dictated By: Clarence Vines II, DO DD/ [id number] Signed By: <Electronically signed by Clarence Vines II, DO> 02/10/25 1058 [facility] Work Phone: Progress note Author Clarence Vines [facility] Note Date/Time April 20, 2025 9:1 1am [facility] [place] [address] Cancer Center Note Signed Patient: Mirian Corrales MR#: [id number] : 1955 Acct:[id number] Age/Sex: 69 / F Type: REG AMB Date of Service: 04/20/25 Copies to: Conner Stanley DO~ Assessment & Plan CHEMO PLAN Treatment Plan Paclitaxel (175mg/m2) and Carboplatin Q21D ADMINISTRATIVE SUPPORT COORDINATOR/BREAST Clinical Indication No Indication Cycle Number Last Admin 4 of 4 Cycle Day Next Admin 1 21 No Active Chemotherapy History of Present Illness HPI HISTORY OF PRESENT ILLNESS 69-year-old female referred for adenopathy. Past medical history includes osteoarthritis, gluten sensitivity, osteoporosis, osteoarthritis, chronic eczema. She does not smoke and does not drink excessively. 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 She has seen Dr. Ro of the geneticcounseling team at [facility]. 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 She recently saw Dr. Evans for right upper quadrant abdominal discomfort and bloating. Chronic constipation, controlled with magnesium. She had an EGD November 23, 2024 which was normal. Duodenal biopsies were negative for celiac disease. She also noted joint pain and rash. She was being set up for a CAT scan of the abdomen and pelvis and a colonoscopy and a gastric emptying study at that time.Subsequent colonoscopy had 2 sigmoid polyps removed. Repeat colonoscopy recommended in 3 years. She was found to have an abnormal transglutaminase antibody. She saw her agility instructor, Dr. Lan who noted right axillary adenopathy. Ultrasound and biopsy was ordered. Right axillary adenopathy prompted a biopsy on January 18, 2025. CT of the abdomen and pelvis from January 15, 2025 shows bibasilar atelectasis or scarring, tiny indeterminate hepatic hypodensities, no bowel or urinary tract obstruction, abdominal and pelvic lymphadenopathy recommending follow-up, imaging suggesting of lymphoma, suspected uterine fibroid, under distended urinary bladder with apparent wall thickening. There are small scattered subcentimeter hepatic hypodensities, largest at the dome. There were a few cysts at the time of the comparison MRI however there aremore seen today than at that time. The gallbladder is partially contracted. Nocalcified gallstones are seen. The spleen, pancreas and adrenal glands show no acute findings. There are symmetric renal nephrograms, without hydronephrosis. Images through the pelvis show normal caliber [...] size. There are also a couple lymph nodesat the right groin which are slightly larger. There are mild degenerative changes at the hips. US R axilla Real-time ultrasound evaluation of the right axilla [...] measuring 11 x 7 x 8 mm. Her right axillary biopsy shows metastatic poorly differentiated carcinoma involving lymph node tissue. Positive for CK7, PAX8, AE1/AE3. Negative SOX10, CDX2, GATA3, CK20, synaptophysin, TTF-1. The morphologic and immunochemical findings raise the possibility of metastasis from gynecologic (mullerian) origin. has been seeing a dermatologic through [facility]. 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 she spent 6 days in hospital in april she had a full body rash. She had adenopathy at the time. they almost biopsy her lymph nodes and instead did skin biopsy revealed eczema and decided not to romeove her lymph nodes. allergy testing subsequently was negative. she is in phototherapy now through [facility] to control the rash Greta. she is very thin at baseline and has lost 15 lbs through this. she was on high dose prednisone for months. this was terrible for her. her rash covered most of her body excepting the palms and soles. 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 her dad had cancer, she lost two brothers to pancreatic cancer. grandmother also had cancer. 02/02/25 went over pet/ct noted mediastinal, right hilar, right axillary adeno[apthy. abnormal R love liver SUV 3.4 unclear if involved. Retroperitoneal adenopathy and L4 vertebral body metastatic disease. PET/CT FUSION IMAGING Neck: FDG avid bilateral level 3 lymph [...] Abnormal activity is seen involving the L4 vertebra body, SUV max 4.3. CT findings: No pneumothorax. No pericardial or pleural effusions. No free air or free fluid. IMPRESSION: 1. FDG avid lymph nodes involving [...] is needed, diagnostic mammography/ultrasound could BE performed. 02/09/25 to start carboplatin paclitaxel next week. does not like benadryl so offered her half dose. saw Dr. Whalen. 02/19/25 she as in ER on wednesday morning. felt well when she got her chemo. She had mild reaction but got through it. d3 got pain epigastric and back maybe kidneys. this was getting severe then ended up in ER in the middle of the night. she then got narcotic and was discharged. Prior to this was taking ibuprofen 2 tabs every 4 to 6 hours. helped a bit. she wasnt stooling for nearly a week. then last night a lot of diarrhea fter a dose of magnesium. She thinks her epgastric discomfort was contributed to by the ibuprfen. 03/05/25 still took a while to recover after her chemotherapy and f/u visit. she continued to have back and stomach pain. she thinks her back pain is related to her arthritis. she is in line for a hip replacement. she having a hard time telling which is which. not feeling good until the last 3 or 4 days or maybe a little longer, now she is finally eating. She thinks she gained wt but our scale suggests lost a pound. will push back the chemo a few days. she did not take the protonix. 03/30/25 pain resolved. she has some itching. no contpation. her most recent treatment was quite a lot better. 04/20/25 she does note slight neuropathy and a little bit in her toes. she freezes her hands and feet for chemo. IMPRESSION: Significant interval treatment response involving previously [...] is not excluded. Direct visualization is recommended. PHYSICAL EXAMINATION ECOG PS:0 General : patient is alert and oriented to person place and time, no acute distress. Neck: no JVD or thyromegaly. Lymph: no cervical, supraclavicular, axillary adenopathy. Heart: regular rate and rhythm no murmurs rubs or gallops. Abdomen: soft, nontender,, nondistended, no hepatosplenomegaly. Lungs: clear to auscultation bilaterally. No wheezes, rales, rhonchi. Extremities: no clubbing cyanosis ASSESSMENT/PLAN Metastatic Stage IV ovarian cancer. Biopsy [...] and reconsider for resection and parp inhibitor. Intake Vitals/Pain Assessment 04/20/25 08:42 Weight 50.462 kg BP 173/84 H Blood Pressure Location Rt brachial Position Sitting Pulse 75 Pulse Source NIBP Respiration 16 Pulse Oximetry (%) 100 Oxygen Delivery Method room air Are you having pain? No Intake Visit Reasons: 3 week f/u Allergies No Known Allergies Allergy (Verified 04/20/25 08:45) Home Medications - Last Reconciled 04/20/25 by Mimi Brandon LPN [calcium vegan 1,000 mg PO DAILY] cholecalciferol (vitamin D3) 50 mcg PO DAILY digestive enzymes 1 cap PO DAILY ibuprofen 200 mg PO Q6HR PRN lactobacillus combination no.9 (Adult 50 Plus Probiotic) 4,000 mmu cells PO DAILY magnesium 200 mg PO DAILY morphine ER 15 mg PO Q12HR 7 days ondansetron 8 mg PO Q8HR PRN oxycodone 5 - 10 mg (1 - 2 x 5 mg) PO Q6HR PRN 7 days pantoprazole (Protonix) 20 mg PO DAILY prochlorperazine maleate (Compazine) 5 - 10 mg (1 - 2 x 5 mg) PO Q6-8H PRN Gastrointestinal Is the patient taking opioids for pain control?: Yes Bowel Protocol for Opioids Given: Yes Bowel Pattern: Regular Bowel Movement Aid(s): None Falls Fall Precaution Measures Taken: Patient in chair Nurse's Note: Patient is here for a 3 week follow up with labs and imaging for review, prior to treatment. [facility] Medical History Medical History (Updated 02/25/25 @ 00:00 by Guevara Velez) Ovarian cancer Arthritis Right Hip Eczema Surgical History Surgical History No pertinent past surgical history History of esophagogastroduodenoscopy (EGD) H/O colonoscopy Family History Family History Father Melanoma Brother Pancreatic cancer Grandparent Ovarian ca Daughter No problems noted. Social History Social History (Updated 01/23/25 @ 09:31 by Myla Cesar [facility]) Smoking status: Never smoker Within the past year, how often did you have a drink containing alcohol: never AUDIT-C Alcohol total score: 0 AUDIT-C Alcohol score interpretation: A score less than 3 is consistent with normal alcohol consumption. In the past 12 months, have you used illegal drugs or prescription drugs for non-medical reasons?: No Results - [facility] (Med Onc) LAB RESULTS Corrected WBC, (3.8-11.6) 3.1 X10E3/uL L 04/18/25, 08:1 0 Hgb, (11.8-15.4) 8.9 g/dL L 04/18/25, 08:10 Hct, (34.0-46.4) 26.9 % L 04/18/25, 08:10 MCV, (80-100) 90.3 fl 04/18/25, 08:10 RDW, (11.9-15.3) 22.5 % H 04/18/25, 08:10 Plt Count, (150-450) 146 x10E3/uL L 04/18/25, 08:10 Sodium, (136-145) 140 mmol/L 04/18/25, 08:10 Potassium, (3.5-5.1) 4.0 mmol/L 04/18/25, 08:10 BUN, (7-25) 14 mg/dL 04/18/25, 08:10 Creatinine, (0.60-1.20) 0.79 mg/dL 04/18/25, 08:10 Glucose, (70-100) 83 mg/dL 04/18/25, 08:10 Est GFR (CKD-EPI) > 60.0 mL/Min 04/18/25, 08:10 Calcium, (8.6-10.3) 8.8 mg/dL 04/18/25, 08:10 Total Bilirubin, (0.3-1.0) 0.3 mg/dl 04/18/25, 08: 10 AST, (13-39) 17 U/L 04/18/25, 08:10 ALT, (7-52) 11 U/L 04/18/25, 08:10 Alkaline Phosphatase, (34-104) 51 U/L 04/18/25, 08:10 Total Protein, (6.4-8.9) 6.6 gm/dL 04/18/25, 08:10 Albumin, (3.5-5.7) 3.8 gm/dL 04/18/25, 08:10 CA 125 Antigen, (0.0-38.1) 33.0 U/mL 04/18/25, 08: 10 Dictated By: Clarence Vines II, DO DD/ [id number] Signed By: <Electronically signed by Clarence Vines II, DO> 04/20/25 0911 [facility] Work Phone: Progress note Author Clarence Vines [facility] Note Date/Time May 28, 2025 9:37am [facility] [place] [address] Cancer Center Note Signed Patient: Mirian Corrales MR#: [id number] : 1955 Acct:[id number] Age/Sex: 69 / F Type: REG AMB Date of Service: 05/28/25 Copies to: Conner Stanley DO~ Assessment & Plan A/P Patient Instructions: chemo weds.c5d1. need marlee note, op report. f/u prior to c6d1 cbc, cmp, ca125. iron studies b12, folate. CHEMO PLAN Treatment Plan Paclitaxel (175mg/m2) and Carboplatin Q21D ADMINISTRATIVE SUPPORT COORDINATOR/BREAST Clinical Indication No Indication Cycle Number Last Admin 4 of 6 Completed Cycle Day Next Admin No Active Chemotherapy History of Present Illness HPI HISTORY OF PRESENT ILLNESS 69-year-old female referred for adenopathy. Past medical history includes osteoarthritis, gluten sensitivity, osteoporosis, osteoarthritis, chronic eczema. She does not smoke and does not drink excessively. 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 She has seen Dr. Ro of the geneticcounseling team at [facility]. 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 She recently saw Dr. Evans for right upper quadrant abdominal discomfort and bloating. Chronic constipation, controlled with magnesium. She had an EGD November 23, 2024 which was normal. Duodenal biopsies were negative for celiac disease. She also noted joint pain and rash. She was being set up for a CAT scan of the abdomen and pelvis and a colonoscopy and a gastric emptying study at that time.Subsequent colonoscopy had 2 sigmoid polyps removed. Repeat colonoscopy recommended in 3 years. She was found to have an abnormal transglutaminase antibody. She saw her agility instructor, Dr. Lan who noted right axillary adenopathy. Ultrasound and biopsy was ordered. Right axillary adenopathy prompted a biopsy on January 18, 2025. CT of the abdomen and pelvis from January 15, 2025 shows bibasilar atelectasis or scarring, tiny indeterminate hepatic hypodensities, no bowel or urinary tract obstruction, abdominal and pelvic lymphadenopathy recommending follow-up, imaging suggesting of lymphoma, suspected uterine fibroid, under distended urinary bladder with apparent wall thickening. There are small scattered subcentimeter hepatic hypodensities, largest at the dome. There were a few cysts at the time of the comparison MRI however there are more seen today than at that time. The gallbladder is partially contracted. No calcified gallstones are seen. The spleen, pancreas and adrenal glands showno acute findings. There are symmetric renal nephrograms, without hydronephrosis. Images through the pelvis show normal caliber [...] size. There are also a couple lymph nodesat the right groin which are slightly larger. There are mild degenerative changes at the hips. US R axilla Real-time ultrasound evaluation of the right axilla [...] measuring 11 x 7 x 8 mm. Her right axillary biopsy shows metastatic poorly differentiated carcinoma involving lymph node tissue. Positive for CK7, PAX8, AE1/AE3. Negative SOX10, CDX2, GATA3, CK20, synaptophysin, TTF-1. The morphologic and immunochemical findings raise the possibility of metastasis from gynecologic (mullerian) origin. has been seeing a dermatologic through [facility]. 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 she spent 6 days in hospital in april she had a full body rash. She had adenopathy at the time. they almost biopsy her lymph nodes and instead did skin biopsy revealed eczema and decided not to romeove her lymph nodes. allergy testing subsequently was negative. she is in phototherapy now through [facility] to control the rash Buford. she is very thin at baseline and has lost 15 lbs through this. she was on high dose prednisone for months. this was terrible for her. her rash covered most of her body excepting the palms and soles. 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 her dad had cancer, she lost two brothers to pancreatic cancer. grandmother also had cancer. 02/02/25 went over pet/ct noted mediastinal, right hilar, right axillary adeno[apthy. abnormal R love liver SUV 3.4 unclear if involved. Retroperitoneal adenopathy and L4 vertebral body metastatic disease. PET/CT FUSION IMAGING Neck: FDG avid bilateral level 3 lymph [...] Abnormal activity is seen involving the L4 vertebra body, SUV max 4.3. CT findings: No pneumothorax. No pericardial or pleural effusions. No free air or free fluid. IMPRESSION: 1. FDG avid lymph nodes involving [...] is needed, diagnostic mammography/ultrasound could BE performed. 02/09/25 to start carboplatin paclitaxel next week. does not like benadryl so offered her half dose. saw Dr. Whalen. 02/19/25 she as in ER on wednesday morning. felt well when she got her chemo. She had mild reaction but got through it. d3 got pain epigastric and back maybe kidneys. this was getting severe then ended up in ER in the middle of the night. she then got narcotic and was discharged. Prior to this was taking ibuprofen 2 tabs every 4 to 6 hours. helped a bit. she wasnt stooling for nearly a week. then last night a lot of diarrhea fter a dose of magnesium. She thinks her epgastric discomfort was contributed to by the ibuprfen. 03/05/25 still took a while to recover after her chemotherapy and f/u visit. she continued to have back and stomach pain. she thinks her back pain is related to her arthritis. she is in line for a hip replacement. she having a hard time telling which is which. not feeling good until the last 3 or 4 days or maybe a little longer, now she is finally eating. She thinks she gained wt but our scale suggests lost a pound. will push back the chemo a few days. she did not take the protonix. 03/30/25 pain resolved. she has some itching. no contpation. her most recent treatment was quite a lot better. 04/20/25 she does note slight neuropathy and a little bit in her toes. she freezes her hands and feet for chemo. IMPRESSION: Significant interval treatment response involving previously [...] is not excluded. Direct visualization is recommended. 05/28/25 she had surgery debuling dr whalen 05/09/25. she contineus with neuropathy. cant do her necklace but still can do buttons. PHYSICAL EXAMINATION ECOG PS:0 General : patient is alert and oriented to person place and time, no acute distress. Neck: no JVD or thyromegaly. Lymph: no cervical, supraclavicular, axillary adenopathy. Heart: regular rate and rhythm no murmurs rubs or gallops. Abdomen: soft, nontender,, nondistended, no hepatosplenomegaly. Lungs: clear to auscultation bilaterally. No wheezes, rales, rhonchi. Extremities: no clubbing cyanosis ASSESSMENT/PLAN Metastatic Stage IV ovarian cancer. Biopsy [...] PEt/ct around 04/18/25. with near complete response. had debulking surgery 05/09/25. Path report and op report pending. c5d1 05/29/25 Dermatologic concerns. Eczematous condition systemic severe. i am hesitant for immunotherapy. will consider in future as Dr whalen is primarily managing. She has been undergoing full body phototherapy since May or june 2024. will give 6 cycles consider maintenance parp inhibitor. Intake Vitals/Pain Assessment 05/28/25 09:02 Weight 49.442 kg BP 147/71 H Blood Pressure Location Rt brachial Position Sitting Temp 97.8 F Temp Source Oral Pulse 87 Pulse Source NIBP Respiration 18 Oxygen Delivery Method room air Are you having pain? No Intake Visit Reasons: Follow Up after Surgery Allergies No Known Allergies Allergy (Verified 05/28/25 09:05) Home Medications - Last Reconciled 05/28/25 by ASHLIE Goodson [calcium vegan 1,000 mg PO DAILY] cholecalciferol (vitamin D3) 50 mcg PO DAILY digestive enzymes 1 cap PO DAILY ibuprofen 200 mg PO Q6HR PRN lactobacillus combination no.9 (Adult 50 Plus Probiotic) 4,000 mmu cells PO DAILY magnesium 200 mg PO DAILY morphine ER 15 mg PO Q12HR 7 days ondansetron 8 mg PO Q8HR PRN oxycodone 5 - 10 mg (1 - 2 x 5 mg) PO Q6HR PRN 7 days pantoprazole (Protonix) 20 mg PO DAILY prochlorperazine maleate (Compazine) 5 - 10 mg (1 - 2 x 5 mg) PO Q6-8H PRN Gastrointestinal Is the patient taking opioids for pain control?: No Bowel Protocol for Opioids Given: No Bowel Pattern: Regular Bowel Movement Aid(s): None Falls Fall Precaution Measures Taken: Patient in chair Nurse's Note: Patient is here for a 6 week follow up with labs for review. She states that shehad surgery just about 3 weeks ago. No concerns voiced at time of intake. [facility] Medical History Medical History (Updated 02/25/25 @ 00:00 by Guevara Velez) Ovarian cancer Arthritis Right Hip Eczema Surgical History Surgical History No pertinent past surgical history History of esophagogastroduodenoscopy (EGD) H/O colonoscopy Family History Family History Father Melanoma Brother Pancreatic cancer Grandparent Ovarian ca Daughter No problems noted. Social History Social History (Updated 01/23/25 @ 09:31 by DONNA Mayo) Smoking status: Never smoker Within the past year, how often did you have a drink containing alcohol: never AUDIT-C Alcohol total score: 0 AUDIT-C Alcohol score interpretation: A score less than 3 is consistent with normal alcohol consumption. In the past 12 months, have you used illegal drugs or prescription drugs for non-medical reasons?: No Dictated By: Clarence Vines II, DO DD/ [id number] Signed By: <Electronically signed by Clarence Vines II, DO> 05/28/25 0937 [facility] Work Phone: Progress note No data available for this section [facility] reason for referral (narrative)* Diagnostic Procedure Only (Routine) - Closed Specialty Diagnoses / Procedures Referred By Luisito magana Referred To Contact XR IMAGING Diagnoses Primary osteoarthritis of right hip Procedures XR HIP GENERAL 3V PELV/AP/LAT RIGHT RADEX HIP UNILATERAL WITH PELVIS 2-3 VIEWS Nenita Ken MD [address] [place] [address] [place] [id number] Referral ID Status Reason Start Date Expiration Date V isits Requested Visits Authorized [id number] Closed Auto-Generate d Referral 10/10/2024 11/09/2025 1 1 [facility] for referral (narrative)* Diagnostic Procedure Only (Routine) - Closed Specialty Diagnoses / Procedures Referred By Contac t Referred To Contact XR IMAGING Diagnoses Primary osteoarthritis of right hip Procedures XR HIP GENERAL 3V PELV/AP/LAT RIGHT RADEX HIP UNILATERAL WITH PELVIS 2-3 VIEWS Nenita Ken MD [address] [place] [address] [place] [address] Referral ID Status Reason Start Date Expiration Date V isits Requested Visits Authorized [id number] Closed Auto-Generate d Referral 10/10/2024 11/09/2025 1 1 * Diagnostic Procedure Only (Routine) - New Request Specialty Diagnoses / Procedures Referred By Contac t Referred To Contact XR IMAGING Diagnoses Primary osteoarthritis of right hip Procedures XR HIP GENERAL 3V PELV/AP/LAT RIGHT RADEX HIP UNILATERAL WITH PELVIS 2-[place] [address] [place] [address] [place] [address] Referral ID Status Reason Start Date Expiration Date Visits Requested Visits Authorized [id number] New Request Auto-Generat ed Referral 10/10/2024 11/09/2025 1 1 [facility]No reason for referral information availableAult[facility] Work Phone: Reason for visit Narrative* Diagnostic Procedure Only (Routine) - Closed Specialty Diagnoses / Procedures Referred By Contac t Referred To Contact XR IMAGING Diagnoses Primary osteoarthritis of right hip Procedures XR HIP GENERAL 3V PELV/AP/LAT RIGHT RADEX HIP UNILATERAL WITH PELVIS 2-[place] [address] [place] [id number] [place] [address] Referral ID Status Reason Start Date Expiration Date V isits Requested Visits Authorized [id number] Closed Auto-Generate d Referral 10/10/2024 11/09/2025 1 1 [facility] Summary Purpose Family History No Family History Records FoundUnknown Family Member Name Dates Details Family history of pancreatic cancer: Brother(V16.0, Z80.0) Status:Active Relationship Condition Age at Onset Recorded Date/T janice father Malignant neoplasm Unknown brother Malignant neoplasm Unknown grandparent Malignant neoplasm Unknown daughter Malignant neoplasm Unknown Relationship Condition Age at Onset Recorded Date/T janice father Malignant melanoma Unknown brother Malignant neoplasm of pancreas Unknown grandparent Malignant neoplasm of ovary Unknown Advance Directives No Advanced Directives Records Found Date Activated Date Inactivated Comments 05/05/2024 11:19 PM 05/11/2024 1:41 PM Question Answer Comments Full Code Order Discussed With: Patient Documents on File Type Date Recorded 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 Advance Directives and Living Will Power of Subject Scientific Research Advance Directive Response Recorded Date/ Time Advance Directives No October 27, 2021 3:12pm Advance Directive Response Recorded Date/ Time Advance Directives No October 27, 2021 4:12pm Date Activated Date Inactivated Comments 05/05/2024 11:19 PM Date Activated Date Inactivated Comments 05/05/2024 11:19 PM 05/11/2024 1:41 PM Question Answer Comments Full Code Order Discussed With: Patient Reason for Referral Status Reason Specialty Diagnoses / Procedures Referred By Contact Referred To Contact Pending Review Radiology Diagnoses Abnormal mammogram Procedures US BREAST COMPLETE LEFT Eber Palomares MD [address] [place] [address] Status Reason Specialty Diagnoses / Procedures Referre d By Contact Referred To Contact Open Radiology Diagnoses Abnormal mammogram Procedures US BREAST COMPLETE RIGHT Eber Palomares MD [address] [place] [address] Assessments Diagnosis Abnormal mammogram Abnormal mammogram, unspecified Chief Complaint and Reason for Visit Chief Complaint z80.0 Chief Complaint r93.89 Family Hx of Cancer Screening Chief Complaint rash Chief Complaint rash rash, all over body Chief Complaint rash rash, all over body Body Pain/Swelling Chief Complaint Admit Date n60.01 n60.02 August 16, 2024 7:43am R53.83 K90.41 D75.839 September 26, 2024 10:15am Chief Complaint Admit Date n60.01 n60.02 August 16, 2024 7:43am R53.83 K90.41 D75.839 September 26, 2024 10:15am Refer: abnormal celiac antibody panel [facility] 2024 1:23pm Reason for Visit Admit Date Abnormal celiac antibody panel November 06, 2024 1:23pm Chief Complaint Admit Date R53.83 K90.41 D75.839 September 26, 2024 10:15am Refer: abnormal celiac antibody panel [facility] 2024 1:23pm abnormal celiac antibody panel November 11:47am abnormal celiac antibody panel November 1:09pm Chief Complaint Admit Date Refer: abnormal celiac antibody panel [facility] 2024 1:23pm abnormal celiac antibody panel November 11:47am abnormal celiac antibody panel November 1:09pm nausea/wt loss/abd discomfort post [facility] c testing January 04, 2025 7:57am Screening January 10, 2025 10: 15am Screening January 10, 2025 11: 01am Reason for Visit Admit Date Abnormal celiac antibody panel November 06, 2024 1:23pm Abdominal pain January 04, 2025 7:5 7am Constipation January 04, 2025 7:5 7am Nausea January 04, 2025 7:5 7am Weight loss January 04, 2025 7:5 7am Chief Complaint Admit Date Refer: abnormal celiac antibody panel Fe bruary 2024 1:23pm abnormal celiac antibody panel November 11:47am abnormal celiac antibody panel November 1:09pm nausea/wt loss/abd discomfort post [facility] c testing January 04, 2025 7:57am Screening January 10, 2025 10: 15am Screening January 10, 2025 11: 01am Amb Documentation January 10, 2025 2:2 4pm R10.9 R63.4 R11.0 January 15, 2025 12: 04pm Chief Complaint Admit Date [facility] abnormal celiac antibody panel November 11:47am abnormal celiac antibody panel November 1:09pm nausea/wt loss/abd discomfort post [facility] c testing January 04, 2025 7:57am Screening January 10, 2025 10: 15am Screening January 10, 2025 11: 01am Amb Documentation January 10, 2025 2:2 4pm R10.9 R63.4 R11.0 January 15, 2025 12: 04pm R22.31 January 17, 2025 9:4 6am Chief Complaint Admit Date Refer: abnormal celiac antibody panel Fe bruary 2024 1:23pm abnormal celiac antibody panel November 11:47am abnormal celiac antibody panel November 1:09pm nausea/wt loss/abd discomfort post [facility] c testing January 04, 2025 7:57am Screening January 10, 2025 10: 15am Screening January 10, 2025 11: 01am Amb Documentation January 10, 2025 2:2 4pm R10.9 R63.4 R11.0 January 15, 2025 12: 04pm R22.31 January 17, 2025 9:4 6am Lymphoma January 18, 2025 8:09am Chief Complaint Admit Date Refer: abnormal celiac antibody panel Fe bruary 2024 1:23pm abnormal celiac antibody panel November 11:47am abnormal celiac antibody panel November 1:09pm nausea/wt loss/abd discomfort post [facility] c testing January 04, 2025 7:57am Screening January 10, 2025 10: 15am Screening January 10, 2025 11: 01am Amb Documentation January 10, 2025 2:2 4pm R10.9 R63.4 R11.0 January 15, 2025 12: 04pm R22.31 January 17, 2025 9:4 6am Lymphoma January 18, 2025 8:09am NEW - Enlarged lymph Nodes January 23, 2025 9:21am Enlarged lymph nodes January 23, 2025 9:22a m Reason for Visit Admit Date Abnormal celiac antibody panel November 06, 2024 1:23pm Abdominal pain January 04, 2025 7:5 7am Constipation January 04, 2025 7:5 7am Nausea January 04, 2025 7:5 7am Weight loss January 04, 2025 7:5 7am Axillary lymphadenopathy January 18, 2025 8 :09am Chief Complaint Admit Date abnormal celiac antibody panel November 11:47am abnormal celiac antibody panel November 1:09pm nausea/wt loss/abd discomfort post [facility]ell c testing January 04, 2025 7:57am Screening January 10, 2025 10: 15am Screening January 10, 2025 11: 01am Amb Documentation January 10, 2025 2:2 4pm R10.9 R63.4 R11.0 January 15, 2025 12: 04pm R22.31 January 17, 2025 9:4 6am Lymphoma January 18, 2025 8:09am NEW - Enlarged lymph Nodes January 23, 2025 9:21am Follow Up 3 Weeks February 02, 2025 8:41a m Reason for Visit Admit Date Abdominal pain January 04, 2025 7:5 7am Constipation January 04, 2025 7:5 7am Nausea January 04, 2025 7:5 7am Weight loss January 04, 2025 7:5 7am Axillary lymphadenopathy January 18, 2025 8 :09am Chief Complaint Admit Date abnormal celiac antibody panel November 11:47am abnormal celiac antibody panel November 1:09pm nausea/wt loss/abd discomfort post cornell c testing January 04, 2025 7:57am Screening January 10, 2025 10: 15am Screening January 10, 2025 11: 01am Amb Documentation January 10, 2025 2:2 4pm R10.9 R63.4 R11.0 January 15, 2025 12: 04pm R22.31 January 17, 2025 9:4 6am Lymphoma January 18, 2025 8:09am NEW - Enlarged lymph Nodes January 23, 2025 9:21am Follow Up 3 Weeks February 02, 2025 8:41a m Enlarged lymph nodes February 16, 2025 2:28 pm pelvic, joint, back pain February 17, 2025 2:17am Chief Complaint Admit Date abnormal celiac antibody panel November 11:47am abnormal celiac antibody panel November 1:09pm nausea/wt loss/abd discomfort post cornell c testing January 04, 2025 7:57am Screening January 10, 2025 10: 15am Screening January 10, 2025 11: 01am Amb Documentation January 10, 2025 2:2 4pm R10.9 R63.4 R11.0 January 15, 2025 12: 04pm R22.31 January 17, 2025 9:4 6am Lymphoma January 18, 2025 8:09am NEW - Enlarged lymph Nodes January 23, 2025 9:21am Follow Up 3 Weeks February 02, 2025 8:41a m pelvic, joint, back pain February 17, 2025 2:17am Follow Up Tox Check February 19, 2025 1:13p m Enlarged lymph nodes February 19, 2025 2:15 pm Chief Complaint Admit Date nausea/wt loss/abd discomfort post [facility]ell c testing January 04, 2025 7:57am Screening January 10, 2025 10: 15am Screening January 10, 2025 11: 01am Amb Documentation January 10, 2025 2:2 4pm R10.9 R63.4 R11.0 January 15, 2025 12: 04pm R22.31 January 17, 2025 9:4 6am Lymphoma January 18, 2025 8:09am NEW - Enlarged lymph Nodes January 23, 2025 9:21am Follow Up 3 Weeks February 02, 2025 8:41a m pelvic, joint, back pain February 17, 2025 2:17am Follow Up Tox Check February 19, 2025 1:13p m Follow Up 2 Weeks March 05, 2025 1:35 pm Follow Up w/tx March 30, 2025 8:47 am Enlarged lymph nodes March 30, 2025 9:2 4am Chief Complaint Admit Date NEW - Enlarged lymph Nodes January 23, 2025 9:21am Follow Up 3 Weeks February 02, 2025 8:41a m pelvic, joint, back pain February 17, 2025 2:17am Follow Up Tox Check February 19, 2025 1:13p m Follow Up 2 Weeks March 05, 2025 1:35 pm Follow Up w/tx March 30, 2025 8:47 am 3 week f/u April 20, 2025 8:3 7am Enlarged lymph nodes April 20, 2025 9: 25am Chief Complaint Admit Date Follow Up 2 Weeks March 05, 2025 1:35 pm Follow Up w/tx March 30, 2025 8:47 am 3 week f/u April 20, 2025 8:3 7am Follow Up after Surgery May 28, 025 8:59am Chief Complaint Admit Date Follow Up w/tx March 30, 2025 8:47 am 3 week f/u April 20, 2025 8:3 7am Follow Up after Surgery May 28, 025 8:59am Follow Up w/C6 June 18, 2025 2:20pm Enlarged lymph nodes June 18 3:30pm Chief Complaint * A telephone visit (audio only) between the patient (at the originating site) and the provider (at the distant site) was utilized to provide this telehealth service. * Fam Hx Panc Ca Additional Source Comments INFORMATION SOURCE (unrecogn ized section and content) DATE CREATED AUTHOR 05/08/2019 [facility] DATE CREATED AUTHOR AUTHOR'S ORGANIZ ATION 08/26/2022 [facility] DATE CREATED AUTHOR AUTHOR'S ORGANIZ ATION 08/27/2022 [facility] DATE CREATED AUTHOR AUTHOR'S ORGANIZ ATION 12/24/2022 [facility] DATE CREATED AUTHOR AUTHOR'S ORGANIZ ATION 05/01/2024 [facility] DATE CREATED AUTHOR AUTHOR'S ORGANIZ ATION 01/29/2025 [facility] EPIC DATE CREATED AUTHOR AUTHOR'S ORGANIZ ATION 06/06/2025 [facility] DATE CREATED AUTHOR AUTHOR'S ORGANIZ ATION 06/23/2025 [facility] DATE CREATED AUTHOR AUTHOR'S ORGANIZ ATION 06/24/2025 [facility] Reason for Visit (unrecogniz ed section and content) Reason Comments Light Treatments Specialty Diagnoses / Procedures Referred By Contkaterin magana Referred To Contact [facility] Diagnoses Other specified dermatitis Procedures ACTINOTHERAPY ULTRAVIOLET LIGHT [facility] [place] [address] [place] [address] Referral ID Status Reason Start Date Expiration Date Visits Requested Visits Authorized [id number] Authorized Financial Clearance Not Required 09/19/2024 99 99 Reason Comments Light Treatments uvb Status Reason Specialty Diagnoses / Procedures Referre d By Contact Referred To Contact Open Radiology Diagnoses Abnormal mammogram Procedures US BREAST COMPLETE RIGHT Eber Palomares MD [address] [place] [address] Reason Comments Appointment Received Outside Medical Records Reason Comments Received Outside Medical Records Reason Comments Rash Established Patient Reason Comments Derm Problem Rash follow up Reason Comments Follow Up Reason Comments Well Women Visit Reason Comments Rash Reason Comments Patch Testing (allergy) Reason Comments Rash Loss of Hair RT Hip Pain Reason Comments Light Treatments Reason Comments Two-week office visit Labs and X-rays co mpleted ptv Reason Comments Radiology XR Reason Comments Appointment Reason Comments Itching Rash Hives Pt c/o rash on and o ff since February. Dermatology referred to allergy. Pt is undergoing light therapy with success. Reason Comments Patch Testing (allergy) Reason Comments Medicare Annual Wellness Visit Subsequen t Discuss Testing Reason Comments leiomyomas swollen thighs Reason Comments Forms Reason Onset Date Comments Appointment 01/24/2025 Reason Comments Eczema Reason Comments Patient Navigation Requested 01/29/25 Pe t scan from [facility] & 01/24/25 US PELVIS from [facility], Pathology was previously sent to [facility]. Reason Comments Received External Records Reason Comments Received external records Reason Comments Radio Gen A21 Reason Comments Follow Up Reason Comments Med Change Request Reason Comments Pre-Op Visit Reason Onset Date Comments Pre-Op Teaching 05/04/2025 Reason Comments Post-Op Visit Care Teams (unrecognized sec tion and content) [...] Stanley DO Primary Care Provider, Referring Lemuel finney Active Referral Self Attending Provider Active Team Status: Active Member Role Status Dates Roz Aguilera MD Attending Provider Active Conner Stanley DO Primary Care Provider Active Team Status: Inactive Member Role Status Dates Conner Stanley DO Primary Care Provider Active Start: March 25, 2024 End: March 25, 2024 Clarence Kovacs APRN Emergency Provider Active Start: March 25, 2024 End: March 25, 2024 Team Status: Inactive Member Role Status Dates Conner Stanley DO Primary Care Provider Active Start: April 04, 2024 End: April 04, 2024 Clarence Kovacs APRN Emergency Provider Active Start: April 04, 2024 End: April 04, 2024 Team Status: Inactive Member Role Status Dates Conner Stanley DO Primary Care Provider Active Start: April 07, 2024 End: April 08, 2024 Carlin Godfrey DO Emergency Provider Active St art: April 07, 2024 End: April 08, 2024 Assistant Chief Engineer Relationship Specialty Start Date End Date Conner Stanley DO [address] [place] [address] Referring Internal Medicine 05/04/22 Kierra Posadas APRN [address] [place] [address] Referring Internal Medicine 04/18/24 Assistant Chief Engineer Relationship Specialty Start Date End Date Conner Stanley DO [address] [place] [address] PCP - General Internal Medicine 04/28/24 Conner Stanley DO [address] [place] [address] Referring Internal Medicine 05/04/22 Kierra Posadas APRN [address] [place] [address] Referring Internal Medicine 04/18/24 Assistant Chief Engineer Relationship Specialty Start Date End Date Conner Stanley DO [address] [place] [address] PCP - General Internal Medicine 04/28/24 Conner Stanley DO [address] [place] [address] Referring Internal Medicine 05/04/22 Kierra Posadas APRN [address] [place] [address] Referring Internal Medicine 04/18/24 Assistant Chief Engineer Relationship Specialty Start Date End Date Conner Stanley DO [address] [place] [address] PCP - General Internal Medicine 04/28/24 Conner Stanley DO [address] [place] [address] Referring Internal Medicine 05/04/22 Kierra Posadas APRN [address] [place] [address] Referring Internal Medicine 04/18/24 Assistant Chief Engineer Relationship Specialty Start Date End Date Conner Stanley DO [address] [place] [address] PCP - General Internal Medicine 04/28/24 Conner Stanley DO [address] [place] [address] Referring Internal Medicine 05/04/22 Kierra Posadas APRN [address] [place] [address] Referring Internal Medicine 04/18/24 Assistant Chief Engineer Relationship Specialty Start Date End Date Conner Stanlye DO [address] [place] [address] PCP - General Internal Medicine 04/28/24 Conner Stanley DO [address] [place] [address] Referring Internal Medicine 05/04/22 Kierra Posadas APRN [address] [place] [address] Referring Internal Medicine 04/18/24 Assistant Chief Engineer Relationship Specialty Start Date End Date Conner Stanley DO [address] [place] [address] PCP - General Internal Medicine 04/28/24 Conner Stanley DO [address] [place] [address] Referring Internal Medicine 05/04/22 Kierra Posadas APRN [address] [place] [address] Referring Internal Medicine 04/18/24 Assistant Chief Engineer Relationship Specialty Start Date End Date Conner Stanley DO [address] [place] [address] PCP - General Internal Medicine 04/28/24 Conner Stanley DO [address] [place] [address] Referring Internal Medicine 05/04/22 Kierra Posadas APRN [address] [place] [address] Referring Internal Medicine 04/18/24 Assistant Chief Engineer Relationship Specialty Start Date End Date Conner Stanley DO [address] [place] [address] PCP - General Internal Medicine 04/28/24 Conner Stanley DO [address] [place] [address] Referring Internal Medicine 05/04/22 Kierra Posadas APRN [address] [place] [address] Referring Internal Medicine 04/18/24 Assistant Chief Engineer Relationship Specialty Start Date End Date Conner Stanley, DO [address] [place] [address] PCP - General Internal Medicine 04/28/24 Conner Stanley, DO [address] [place] [address] Referring Internal Medicine 05/04/22 Kierra Posadas APRN [address] [place] [address] Referring Internal Medicine 04/18/24 Assistant Chief Engineer Relationship Specialty Start Date End Date Conner Stanley DO [address] [place] [address] PCP - General Internal Medicine 04/28/24 Conner Stanley, [address] [place] [address] Referring Internal Medicine 05/04/22 Kierra Posadas APRN [address] [place] [address] Referring Internal Medicine 04/18/24 Assistant Chief Engineer Relationship Specialty Start Date End Date Conner Stanley, DO [address] [place] [address] PCP - General Internal Medicine 04/28/24 Conner Stanley, [address] [place] [address] Referring Internal Medicine 05/04/22 Kierra Posadas, RYAN [address] [place] [address] Referring Internal Medicine 04/18/24 Assistant Chief Engineer Relationship Specialty Start Date End Date Conner Stanley DO [address] [place] [address] PCP - General Internal Medicine 04/28/24 Conner Stanley, [address] [place] [address] Referring Internal Medicine 05/04/22 Kierra Posadas, RYAN [address] [place] [address] Referring Internal Medicine 04/18/24 Assistant Chief Engineer Relationship Specialty Start Date End Date Conner Stanley DO [address] [place] [address] PCP - General Internal Medicine 04/28/24 Conner Stanley, DO [address] [place] [address] Referring Internal Medicine 05/04/22 Kierra Posadas, RYAN [address] [place] [address] Referring Internal Medicine 04/18/24 Assistant Chief Engineer Relationship Specialty Start Date End Date Conner Stanley DO [address] [place] [address] PCP - General Internal Medicine 04/28/24 Conner Stanley DO [address] [place] [address] Referring Internal Medicine 05/04/22 Kierra Posadas APRN [address] [place] [address] Referring Internal Medicine 04/18/24 Assistant Chief Engineer Relationship Specialty Start Date End Date Conner Stanley DO [address] [place] [address] PCP - General Internal Medicine 04/28/24 Conner Stanley DO [address] [place] [address] Referring Internal Medicine 05/04/22 Kierra Posadas APRN [address] [place] [address] Referring Internal Medicine 04/18/24 Assistant Chief Engineer Relationship Specialty Start Date End Date Conner Stanley DO [address] [place] [address] PCP - General Internal Medicine 04/28/24 Conner Stanley DO [address] [place] [address] Referring Internal Medicine 05/04/22 Kierra Posadas APRN [address] [place] [address] Referring Internal Medicine 04/18/24 Assistant Chief Engineer Relationship Specialty Start Date End Date Conner Stanley DO [address] [place] [address] PCP - General Internal Medicine 04/28/24 Conner Stanley DO [address] [place] [address] Referring Internal Medicine 05/04/22 Kierra Posadas APRN [address] [place] [address] Referring Internal Medicine 04/18/24 Assistant Chief Engineer Relationship Specialty Start Date End Date Conner Stanley DO [address] [place] [address] PCP - General Internal Medicine 04/28/24 Conner Stanley DO [address] [place] [address] Referring Internal Medicine 05/04/22 Kierra Posadas APRN [address] [place] [address] Referring Internal Medicine 04/18/24 Assistant Chief Engineer Relationship Specialty Start Date End Date Conner Stanley DO [address] [place] [address] PCP - General Internal Medicine 01/26/23 Conner Stanley DO [address] [place] [address] PCP - ACO Reach 11/19/23 Assistant Chief Engineer Relationship Specialty Start Date End Date Conner Stanley DO [address] [place] [address] PCP - General Internal Medicine 01/26/23 Conner Stanley DO [address] [place] [address] PCP - ACO Reach 11/19/23 Assistant Chief Engineer Relationship Specialty Start Date End Date Conner Stanley DO [address] [place] [address] PCP - General Internal Medicine 04/28/24 Conner Stanley DO [address] [place] [address] Referring Internal Medicine 05/04/22 Kierra Posadas APRN [address] [place] [address] Referring Internal Medicine 04/18/24 Assistant Chief Engineer Relationship Specialty Start Date End Date Conner Stanley DO [address] [place] [address] PCP - General Internal Medicine 04/28/24 Conner Stanley DO [address] [place] [address] Referring Internal Medicine 05/04/22 Kierra Posadas APRN [address] [place] [address] Referring Internal Medicine 04/18/24 Assistant Chief Engineer Relationship Specialty Start Date End Date Conner Stanley, DO [address] [place] [address] PCP - General Internal Medicine 04/28/24 Conner Stanley, DO [address] [place] [address] Referring Internal Medicine 05/04/22 Kierra Posadas APRN [address] [place] [address] Referring Internal Medicine 04/18/24 Assistant Chief Engineer Relationship Specialty Start Date End Date Conner Stanley DO [address] [place] [address] PCP - General Internal Medicine 04/28/24 Conner Stanley, [address] [place] [address] Referring Internal Medicine 05/04/22 Kierra Posadas APRN [address] [place] [address] Referring Internal Medicine 04/18/24 Assistant Chief Engineer Relationship Specialty Start Date End Date Conner Stanley, DO [address] [place] [address] PCP - General Internal Medicine 04/28/24 Conner Stanley, [address] [place] [address] Referring Internal Medicine 05/04/22 Kierra Posadas APRN [address] [place] [address] Referring Internal Medicine 04/18/24 Assistant Chief Engineer Relationship Specialty Start Date End Date Conner Stanley DO [address] [place] [address] PCP - General Internal Medicine 01/26/23 Conner Stanley DO [address] [place] [address] PCP - ACO Reach 11/19/23 Assistant Chief Engineer Relationship Specialty Start Date End Date Conner Stanley DO [address] [place] [address] PCP - General Internal Medicine 04/28/24 Conner Stanley DO [address] [place] [address] Referring Internal Medicine 05/04/22 Kierra Posadas APRN [address] [place] [address] Referring Internal Medicine 04/18/24 Assistant Chief Engineer Relationship Specialty Start Date End Date Conner Stanley DO [address] [place] [address] PCP - General Internal Medicine 04/28/24 Conner Stanley DO [address] [place] [address] Referring Internal Medicine 05/04/22 Kierra Posadas APRN [address] [place] [address] Referring Internal Medicine 04/18/24 Assistant Chief Engineer Relationship Specialty Start Date End Date Conner Stanley DO [address] [place] [address] PCP - General Internal Medicine 04/28/24 Conner Stanley DO [address] [place] [address] Referring Internal Medicine 05/04/22 Kierra Posadas APRN [address] [place] [address] Referring Internal Medicine 04/18/24 Assistant Chief Engineer Relationship Specialty Start Date End Date Conner Stanley DO [address] [place] [address] PCP - General Internal Medicine 01/26/23 Conner Stanley DO [address] [place] [address] PCP - ACO Reach 11/19/23 Assistant Chief Engineer Relationship Specialty Start Date End Date Conner Stanley DO [address] [place] [address] PCP - General Internal Medicine 01/26/23 Conner Stanley DO [address] [place] [address] PCP - ACO Reach 11/19/23 Assistant Chief Engineer Relationship Specialty Start Date End Date Conner Stanley DO [address] [place] [address] PCP - General Internal Medicine 04/28/24 Conner Stanley DO [address] [place] [address] Referring Internal Medicine 05/04/22 Kierra Posadas APRN [address] [place] [address] Referring Internal Medicine 04/18/24 Team Status: Inactive Member Role Status Dates Conner Stanley DO Primary Care Provider Active Start: August 16, 2024 End: August 16, 2024 Vonnie Ponce PA-C Attending Provider Active Sta rt: August 16, 2024 End: August 16, 2024 Team Status: Inactive Member Role Status Dates Conner Stanley DO Primary Care Provider Active Start: September 26, 2024 End: September 26, 2024 SUZY Gomez Attending Provider Acti ve Start: September 26, 2024 End: September 26, 2024 Assistant Chief Engineer Relationship Specialty Start Date End Date Conner Stanley DO [address] [place] [address] PCP - General Internal Medicine 01/26/23 Conner Stanley DO [address] [place] [address] PCP - ACO Reach 11/19/23 Assistant Chief Engineer Relationship Specialty Start Date End Date Conner Stanley DO [address] [place] [address] PCP - General Internal Medicine 04/28/24 Conner Stanley DO [address] [place] [address] Referring Internal Medicine 05/04/22 Kierra Posadas APRN [address] [place] [address] Referring Internal Medicine 04/18/24 Assistant Chief Engineer Relationship Specialty Start Date End Date Conner Stanley DO [address] [place] [address] PCP - General Internal Medicine 04/28/24 Conner Stanley DO [address] [place] [address] Referring Internal Medicine 05/04/22 Kierra Posadas APRN [address] [place] [address] Referring Internal Medicine 04/18/24 Assistant Chief Engineer Relationship Specialty Start Date End Date Conner Stanley DO [address] [place] [address] PCP - General Internal Medicine 04/28/24 Conner Stanley DO [address] [place] [address] Referring Internal Medicine 05/04/22 Kierra Posadas APRN [address] [place] [address] Referring Internal Medicine 04/18/24 Assistant Chief Engineer Relationship Specialty Start Date End Date Conner Stanley DO [address] [place] [address] PCP - General Internal Medicine 04/28/24 Conner Stanley DO [address] [place] [address] Referring Internal Medicine 05/04/22 Kierra Posadas APRN [address] [place] [address] Referring Internal Medicine 04/18/24 Assistant Chief Engineer Relationship Specialty Start Date End Date Conner Stanley DO [address] [place] [address] PCP - General Internal Medicine 04/28/24 Conner Stanley DO [address] [place] [address] Referring Internal Medicine 05/04/22 Kierra Posadas APRN [address] [place] [address] Referring Internal Medicine 04/18/24 Assistant Chief Engineer Relationship Specialty Start Date End Date Conner Stanley DO [address] [place] [address] PCP - General Internal Medicine 04/28/24 Conner Stanley DO [address] [place] [address] Referring Internal Medicine 05/04/22 Kierra Posadas APRN [address] [place] [address] Referring Internal Medicine 04/18/24 Team Status: Inactive Member Role Status Dates Conner Stanley DO Primary Care Provider Active Start: September 26, 2024 End: September 26, 2024 SUZY Santoyo Attending Provider Active Start: September 26, 2024 End: September 26, 2024 Team Status: Inactive Member Role Status Dates Conner Stanley DO Primary Care Provider Active Start: November 06, 2024 End: November 06, 2024 Rey Schrader MD Attending Provider Active Start: November 06, 2024 End: November 06, 2024 Assistant Chief Engineer Relationship Specialty Start Date End Date Conner Stanley DO [address] [place] [address] PCP - General Internal Medicine 04/28/24 Conner Stanley DO [address] [place] [address] Referring Internal Medicine 05/04/22 Kierra Posadas APRN [address] [place] [address] Referring Internal Medicine 04/18/24 Assistant Chief Engineer Relationship Specialty Start Date End Date Conner Stanley DO [address] [place] [address] PCP - General Internal Medicine 01/26/23 Conner Stanley DO [address] [place] [address] PCP - ACO Reach 11/19/23 Assistant Chief Engineer Relationship Specialty Start Date End Date Conner Stanley DO [address] [place] [address] PCP - General Internal Medicine 04/28/24 Conner Stanley DO [address] [place] [address] Referring Internal Medicine 05/04/22 Kierra Posadas, RYAN [address] [place] [address] Referring Internal Medicine 04/18/24 Team Status: Inactive Member Role Status Dates Conner Stanley DO Primary Care Provider Active Start: November 23, 2024 End: November 23, 2024 Rey Schrader MD Attending Provider Active Start: November 23, 2024 End: November 23, 2024 Team Status: Active Member Role Status Dates Conner Stanley DO Primary Care Provider Active Start: November 23, 2024 Rey Schrader MD Attending Provider, Other Provider Act maria guadalupe Start: November 23, 2024 Assistant Chief Engineer Relationship Specialty Start Date End Date Conner Stanley DO [address] [place] [address] PCP - General Internal Medicine 04/28/24 Conner Stanley DO [address] [place] [address] Referring Internal Medicine 05/04/22 Kierra Posadas, RYAN [address] [place] [address] Referring Internal Medicine 04/18/24 Assistant Chief Engineer Relationship Specialty Start Date End Date Conner Stanley DO [address] [place] [address] PCP - General Internal Medicine 04/28/24 Conner Stanley DO [address] [place] [address] Referring Internal Medicine 05/04/22 Kierra Posadas APRN [address] [place] [address] Referring Internal Medicine 04/18/24 Assistant Chief Engineer Relationship Specialty Start Date End Date Conner Stanley DO [address] [place] [address] PCP - General Internal Medicine 01/26/23 Conner Stanley DO [address] [place] [address] PCP - ACO Reach 11/19/23 Assistant Chief Engineer Relationship Specialty Start Date End Date Jaden Conner RooneyDO [address] [place] [address] PCP - General Internal Medicine 04/28/24 Conner Stanley DO [address] [place] [address] Referring Internal Medicine 05/04/22 Kierra Posadas APRN [address] [place] [address] Referring Internal Medicine 04/18/24 Vonnie Aguirre APRN [address] [place] [address] Family [facility] 12/13/24 Assistant Chief Engineer Relationship Specialty Start Date End Date Conner StanleyDO [address] [place] [address] PCP - General Internal Medicine 04/28/24 Angelacruz Conner Rooney DO [address] [place] [address] Referring Internal Medicine 05/04/22 Kierra Posadas APRN [address] [place] [address] Referring Internal Medicine 04/18/24 Vonnie Aguirre APRN [address] [place] [address] [facility] 12/13/24 Assistant Chief Engineer Relationship Specialty Start Date End Date Conner StanleyDO [address] [place] [address] PCP - General Internal Medicine 04/28/24 Jaden Conner Rooney, DO [address] [place] [address] Referring Internal Medicine 05/04/22 Kierra Posadas APRN [address] [place] [address] Referring Internal Medicine 04/18/24 Vonnie Aguirre APRN [address] [place] [address] Family [facility] 12/13/24 Assistant Chief Engineer Relationship Specialty Start Date End Date Conner Stanley DO [address] [place] [address] PCP - General Internal Medicine 04/28/24 Conner Stanley DO [address] [place] [address] Referring Internal Medicine 05/04/22 Kierra Posadas APRN [address] [place] [address] Referring Internal Medicine 04/18/24 Vonnie Aguirre, RYAN [address] [place] [address] Family [facility] 12/13/24 Assistant Chief Engineer Relationship Specialty Start Date End Date Conner Stanley DO [address] [place] [address] PCP - General Internal Medicine 04/28/24 Conner Stanley DO [address] [place] [address] Referring Internal Medicine 05/04/22 Kierra Posadas APRN [address] [place] [address] Referring Internal Medicine 04/18/24 Vonnie Aguirre, RYAN [address] [place] [address] Family Medicine 12/13/24 Assistant Chief Engineer Relationship Specialty Start Date End Date Jaden Conner RooneyDO [address] [place] [address] PCP - General Internal Medicine 04/28/24 Conner Stanley DO [address] [place] [address] Referring Internal Medicine 05/04/22 Kierra Posadas APRN [address] [place] [address] Referring Internal Medicine 04/18/24 Vonnie Aguirre APRN [address] [place] [address] Family Medicine 12/13/24 Assistant Chief Engineer Relationship Specialty Start Date End Date Jaden Conner DO Toribio [address] [place] [address] PCP - General Internal Medicine 04/28/24 Conner Stanley DO [address] [place] [address] Referring Internal Medicine 05/04/22 Kierra Posadas APRN [address] [place] [address] Referring Internal Medicine 04/18/24 Vonnie Aguirre APRN [address] [place] [address] Family Medicine 12/13/24 Assistant Chief Engineer Relationship Specialty Start Date End Date Conner Stanley DO [address] [place] [address] PCP - General Internal Medicine 01/26/23 Conner Stanley DO [address] [place] [address] PCP - ACO Reach 11/19/23 Team Status: Inactive Member Role Status Dates Conner Stanley DO Primary Care Provider Active Start: January 04, 2025 End: January 04, 2025 Rey Schrader MD Attending Provider Active Start: January 04, 2025 End: January 04, 2025 Team Status: Inactive Member Role Status Dates Conner Stanley DO Primary Care Provider Active Start: January 10, 2025 End: January 10, 2025 Rey Schrader MD Attending Provider Active Start: January 10, 2025 End: January 10, 2025 Team Status: Active Member Role Status Dates Conner Stanley DO Primary Care Provider Active Start: January 10, 2025 Rey Schrader MD Attending Provider, Other Provider Act maria guadalupe Start: January 10, 2025 Team Status: Active Member Role Status Dates Conner Stanley DO Primary Care Provider Active Start: January 10, 2025 Vonnie Coronado CMA Attending Provider Active St art: January 10, 2025 Team Status: Inactive Member Role Status Dates Conner Stanley DO Primary Care Provider Active Start: January 15, 2025 End: January 15, 2025 Rey Schrader MD Attending Provider Active Start: January 15, 2025 End: January 15, 2025 Team Status: Inactive Member Role Status Dates Conner Stanley DO Primary Care Provider Active Start: January 17, 2025 End: January 17, 2025 Benedicto Lan DO Attending Provider Active Start : January 17, 2025 End: January 17, 2025 Team Status: Inactive Member Role Status Dates Conner Stanley DO Primary Care Provider Active Start: January 18, 2025 End: January 18, 2025 Benedicto Lan DO Attending Provider Active Start : January 18, 2025 End: January 18, 2025 Assistant Chief Engineer Relationship Specialty Start Date End Date Conner Stanley DO [address] [place] [address] PCP - General Internal Medicine 04/28/24 Conner Stanley DO [address] [place] [address] Referring Internal Medicine 05/04/22 Kierra Posadas APRN [address] [place] [address] Referring Internal Medicine 04/18/24 Vonnie Aguirre APRN [address] [place] [address] Family Medicine 12/13/24 Team Status: Inactive Member Role Status Dates Conner Stanley DO Primary Care Provider Active Start: January 23, 2025 End: January 23, 2025 Clarence Vines II, DO Attending Provider Active Start: January 23, 2025 End: January 23, 2025 Rey Schrader MD Referring Provider Active Start: January 23, 2025 End: January 23, 2025 Team Status: Active Member Role Status Dates Conner Stanley DO Primary Care Provider Active Start: January 23, 2025 Clarence Vines II, DO Attending Provider Active Start: January 23, 2025 Rey Schrader MD Referring Provider Active Start: January 23, 2025 Assistant Chief Engineer Relationship Specialty Start Date End Date Conner Stanley DO [address] [place] [address] PCP - General Internal Medicine 04/28/24 Conner Stanley DO [address] [place] [address] Referring Internal Medicine 05/04/22 Kierra Posadas APRN [address] [place] [address] Referring Internal Medicine 04/18/24 Vonnie Aguirre, RYAN [address] [place] [address] Family Medicine 12/13/24 Assistant Chief Engineer Relationship Specialty Start Date End Date Conner Stanley DO [address] [place] [address] PCP - General Internal Medicine 01/26/23 Conner Stanley DO [address] [place] [address] PCP - ACO Reach 11/19/23 Assistant Chief Engineer Relationship Specialty Start Date End Date Conner Stanley DO [address] [place] [address] PCP - General Internal Medicine 04/28/24 Conner Stanley DO [address] [place] [address] Referring Internal Medicine 05/04/22 Kierra Posadas APRN [address] [place] [address] Referring Internal Medicine 04/18/24 Vonnie Aguirre APRN [address] [place] [address] Family Medicine 12/13/24 Assistant Chief Engineer Relationship Specialty Start Date End Date Jaden Conner Rooney, DO [address] [place] [address] PCP - General Internal Medicine 04/28/24 Conner Stanley DO [address] [place] [address] Referring Internal Medicine 05/04/22 Kierra Posadas, RYAN [address] [place] [address] Referring Internal Medicine 04/18/24 Vonnie Aguirre, RYAN [address] [place] [address] Family Medicine 12/13/24 Assistant Chief Engineer Relationship Specialty Start Date End Date Jaden Conner RooneyDO [address] [place] [address] PCP - General Internal Medicine 04/28/24 Conner Stanley, DO [address] [place] [address] Referring Internal Medicine 05/04/22 Kierra Posadas APRN [address] [place] [address] Referring Internal Medicine 04/18/24 Vonnie Aguirre, RYAN [address] [place] [address] Family Medicine 12/13/24 Assistant Chief Engineer Relationship Specialty Start Date End Date Conner Stanley DO [address] [place] [address] PCP - General Internal Medicine 04/28/24 Conner Stanley DO [address] [place] [address] Referring Internal Medicine 05/04/22 Kierra Posadas, [facility] [address] [place] [address] Referring Internal Medicine 04/18/24 Vonnie Aguirre, [facility] [address] [place] [address] Family Medicine 12/13/24 Team Status: Inactive Member Role Status Dates Conner Stanley DO Primary Care Provider Active Start: February 02, 2025 End: February 02, 2025 Clarence Vines II, DO Attending Provider Active Start: February 02, 2025 End: February 02, 2025 Rey Schrader MD Referring Provider Active Start: February 02, 2025 Team Status: Inactive Member Role Status Dates Conner Stanley DO Primary Care Provider Active Start: February 09, 2025 End: February 09, 2025 Clarence Vines II, DO Attending Provider Active Start: February 09, 2025 End: February 09, 2025 Assistant Chief Engineer Relationship Specialty Start Date End Date Conner Stanley DO [address] [place] [address] PCP - General Internal Medicine 01/26/23 Conner Stanley DO [address] [place] [address] PCP - ACO Reach 11/19/23 Team Status: Inactive Member Role Status Dates Conner Stanley DO Primary Care Provider Active Start: February 02, 2025 End: February 02, 2025 Clarence Vines II, DO Attending Provider Active Start: February 02, 2025 End: February 02, 2025 Team Status: Active Member Role Status Dates Conner Stanley DO Primary Care Provider Active Start: February 16, 2025 Clarence Vines II, DO Attending Provider Active Start: February 16, 2025 Rey Schrader MD Referring Provider Active Start: February 16, 2025 Team Status: Inactive Member Role Status Dates Conner Stanley DO Primary Care Provider Active Start: February 17, 2025 End: February 17, 2025 Javad Cruz Jr, MD Emergency Provider Active Start: February 17, 2025 End: February 17, 2025 Team Status: Inactive Member Role Status Dates Conner Stanley DO Primary Care Provider Active Start: February 19, 2025 End: February 19, 2025 Clarence Vines II, DO Attending Provider Active Start: February 19, 2025 End: February 19, 2025 Team Status: Active Member Role Status Dates Conner Stanley DO Primary Care Provider Active Start: February 19, 2025 Clarence Vines II, DO Attending Provider Active Start: February 19, 2025 Rey Schrader MD Referring Provider Active Start: February 19, 2025 Assistant Chief Engineer Relationship Specialty Start Date End Date Conner Stanley DO [address] [place] [address] PCP - General Internal Medicine 01/26/23 Conner Stanley DO [address] [place] [address] PCP - ACO Reach 11/19/23 Assistant Chief Engineer Relationship Specialty Start Date End Date Conner Stanley DO [address] [place] [address] PCP - General Internal Medicine 04/28/24 Conner Stanley DO [address] [place] [address] Referring Internal Medicine 05/04/22 Rosieaurea Kierra Knightn, [facility] [address] [place] [address] Referring Internal Medicine 04/18/24 Vonnie Aguirre, [facility] [address] [place] [address] Family Medicine 12/13/24 Team Status: Active Member Role Status Dates Conner Stanley DO Primary Care Provider Active Start: January 10, 2025 Rey Schrader MD Attending Provider Active Start: January 10, 2025 Rey Schrader MD Other Provider Active Start: Dec Team Status: Inactive Member Role Status Dates Conner Stanley DO Primary Care Provider Active Start: March 05, 2025 End: March 05, 2025 Clarence Vines II, DO Attending Provider Active Start: March 05, 2025 End: March 05, 2025 Team Status: Inactive Member Role Status Dates Conner Stanley DO Primary Care Provider Active Start: March 30, 2025 End: March 30, 2025 Clarence Vines II, DO Attending Provider Active Start: March 30, 2025 End: March 30, 2025 Team Status: Active Member Role Status Dates Conner Stanley DO Primary Care Provider Active Start: March 30, 2025 Clarence Vines II, DO Attending Provider Active Start: March 30, 2025 Rey Schrader MD Referring Provider Active Start: March 30, 2025 Assistant Chief Engineer Relationship Specialty Start Date End Date Conner Stanley DO [address] [place] [address] PCP - General Internal Medicine 04/28/24 Jaden Conner Rooney, DO [address] [place] [address] Referring Internal Medicine 05/04/22 Kierra Posadas, [facility] [address] [place] [address] Referring Internal Medicine 04/18/24 Vonnie Aguirre, [facility] [address] [place] [address] Family Medicine 12/13/24 Assistant Chief Engineer Relationship Specialty Start Date End Date Angelacruz Conner RooneyDO [address] [place] [address] PCP - General Internal Medicine 04/28/24 Jaden Conner Rooney, DO [address] [place] [address] Referring Internal Medicine 05/04/22 Kierra Posadas, [facility] [address] [place] [address] Referring Internal Medicine 04/18/24 Vonnie Aguirre, [facility] [address] [place] [address] Family Medicine 12/13/24 Team Status: Inactive Member Role Status Dates Conner Stanley DO Primary Care Provider Active Start: April 20, 2025 End: April 20, 2025 Clarence Vines II, DO Attending Provider Active Start: April 20, 2025 End: April 20, 2025 Team Status: Active Member Role Status Dates Conner Stanley DO Primary Care Provider Active Start: April 20, 2025 Clarence Vines II, DO Attending Provider Active Start: April 20, 2025 Rey Schrader MD Referring Provider Active Start: April 20, 2025 Assistant Chief Engineer Relationship Specialty Start Date End Date Conner Stanley DO [address] [place] [address] PCP - General Internal Medicine 04/28/24 Conner Stanley DO [address] [place] [address] Referring Internal Medicine 05/04/22 Kierra Posadas APRN [address] [place] [address] Referring Internal Medicine 04/18/24 Vonnie Aguirre, RYAN [address] [place] [address] Family Medicine 12/13/24 Assistant Chief Engineer Relationship Specialty Start Date End Date Conner Stanley DO [address] [place] [address] PCP - General Internal Medicine 04/28/24 Conner Stanley DO [address] [place] [address] Referring Internal Medicine 05/04/22 Kierra Posadas APRN [address] [place] [address] Referring Internal Medicine 04/18/24 Vonnie Aguirre, RYAN [address] [place] [address] Family Medicine 12/13/24 Assistant Chief Engineer Relationship Specialty Start Date End Date AngelaConner fairDO [address] [address] [place] [address] PCP - General Internal Medicine 04/28/24 Jaden Conner DO Tor[facility] [address] [place] [address] Referring Internal Medicine 05/04/22 Kierra Posadas APRN [address] [place] [address] Referring Internal Medicine 04/18/24 Vonnie Aguirre, RYAN [address] [place] [address] Family Medicine 12/13/24 Assistant Chief Engineer Relationship Specialty Start Date End Date AngelaConner fairDO [address] [place] [address] PCP - General Internal Medicine 04/28/24 Jaden Conner DO [place] [address] [place] [address] Referring Internal Medicine 05/04/22 Kierra Posadas APRN [address] [place] [address] Referring Internal Medicine 04/18/24 Vonnie Aguirre APRN [address] [place] [address] Family Medicine 12/13/24 Assistant Chief Engineer Relationship Specialty Start Date End Date Conner Stanley DO [address] [place] [address] PCP - General Internal Medicine 04/28/24 Conner Stanley DO [address] [place] [address] Referring Internal Medicine 05/04/22 Kierra Posadas, BARREL RIFLER BROACH [address] [place] [address] Referring Internal Medicine 04/18/24 Vonnie Aguirre, BARREL RIFLER BROACH [address] [place] [address] Family Medicine 12/13/24 Assistant Chief Engineer Relationship Specialty Start Date End Date Conner Stanley DO [address] [place] [address] PCP - General Internal Medicine 04/28/24 Conner Stanley DO [address] [place] [address] Referring Internal Medicine 05/04/22 Kierra Posadas BARREL RIFLER [employer]OACH [address] [place] [address] Referring Internal Medicine 04/18/24 Vonnie Aguirre, BARREL RIFLER BROACH [address] [place] [address] Family Medicine 12/13/24 Assistant Chief Engineer Relationship Specialty Start Date End Date Conner Stanley DO [address] [place] [address] PCP - General Internal Medicine 04/28/24 Jaden Conner RooneyDO [address] [place] [address] Referring Internal Medicine 05/04/22 Kierra Posadas APRN [address] [place] [address] Referring Internal Medicine 04/18/24 Vonnie Aguirre, RYAN [address] [place] [address] Family Medicine 12/13/24 Assistant Chief Engineer Relationship Specialty Start Date End Date Jaden Conner RooneyDO [address] [place] [address] PCP - General Internal Medicine 04/28/24 Jaden Conner DO [place] [address] [place] [address] Referring Internal Medicine 05/04/22 Kierra Posadas APRN [address] [place] [address] Referring Internal Medicine 04/18/24 Vonnie Aguirre APRN [address] [place] [address] Family Medicine 12/13/24 Team Status: Inactive Member Role Status Dates Conner Stanley DO Primary Care Provider Active Start: May 28, 2025 End: May 28, 2025 Clarence Vines II, DO Attending Provider Active Start: May 28, 2025 End: May 28, 2025 Rey Schrader MD Referring Provider Active Start: May 28, 2025 Assistant Chief Engineer Relationship Specialty Start Date End Date Conner Stanley DO [address] [place] [address] PCP - General Internal Medicine 01/26/23 Conner Stanley DO [address] [place] [address] PCP - ACO Reach 11/19/23 Juan Whalen MD [address] [place] [address] Referring Physician Gynecologic Oncology 05/23/25 Clarence Vines DO [address] [place] [address] Referring Physician Oncology 05/23/25 Assistant Chief Engineer Relationship Specialty Start Date End Date Conner Stanley DO [address] [place] [address] PCP - General Internal Medicine 04/28/24 Conner Stanley DO [address] [place] [address] Referring Internal Medicine 05/04/22 Kierra Posadas APRN [address] [place] [address] Referring Internal Medicine 04/18/24 Vonnie Aguirre APRN [address] [place] [address] Family [facility] 12/13/24 Assistant Chief Engineer Relationship Specialty Start Date End Date Conner Stanley DO [address] [place] [address] PCP - General Internal Medicine 04/28/24 Conner Stanley DO [address] [place] [address] Referring Internal Medicine 05/04/22 Kierra Posadas APRN [address] [place] [address] Referring Internal Medicine 04/18/24 Vonnie Aguirre, BARREL RIFLER BROACH [address] [place] [address] [facility] 12/13/24 Assistant Chief Engineer Relationship Specialty Start Date End Date Conner Stanley DO [address] [place] [address] PCP - General Internal Medicine 04/28/24 Conner Stanley DO [address] [place] [address] Referring Internal Medicine 05/04/22 Kierra Posadas APRN [address] [place] [address] Referring Internal Medicine 04/18/24 Vonnie Aguirre, RYAN [address] [place] [address] Family Medicine 12/13/24 Assistant Chief Engineer Relationship Specialty Start Date End Date Conner Stanley DO [address] [place] [address] PCP - General Internal Medicine 01/26/23 Conner Stanley DO [address] [place] [address] PCP - ACO Reach 11/19/23 Juan Whalen MD [address] [place], [place] [id number] Referring Physician Gynecologic Oncology 05/23/25 Clarence Vines DO [address] [place] [address] Referring Physician Oncology 05/23/25 Assistant Chief Engineer Relationship Specialty Start Date End Date Conner Stanley DO [address] [place] [address] PCP - General Internal Medicine 01/26/23 Conner Stanley DO [address] [place] [address] PCP - ACO Reach 11/19/23 Juan Whalen MD [address] [place], [place] [address] Referring Physician Gynecologic Oncology 05/23/25 Clarence Vines DO [address] [place] [address] Referring Physician Oncology 05/23/25 Team Status: Inactive Member Role Status Dates Conner Stanley , Primary Care Provider Active Start: May 28, 2025 End: May 28, 2025 Clarence Vines II, DO Attending Provider Active Start: May 28, 2025 End: May 28, 2025 Team Status: Inactive Member Role Status Dates Conner Stanley , Primary Care Provider Active Start: June 18, 2025 End: June 18, 2025 Clarence Vines II, DO Attending Provider Active Start: June 18, 2025 End: June 18, 2025 Team Status: Active Member Role Status Dates Conner Stanley , Primary Care Provider Active Start: June 18, 2025 Clarence Vines II, DO Attending Provider Active Start: June 18, 2025 Rey Schrader MD Referring Provider Active Start: June 18, 2025 Goals (unrecognized section and content) Goals may be documented in a n alternate sectionGoals may be documented in an alternate sectionGoals may be documented in an alternate sectionGoals may be documented in an alternate sectionGoals may be documented in an alternate sectionGoals may be documented in an alternate sectionGoals may be documented in an alternate sectionGoals may be documented in an alternate sectionNot on filedocumented as of this encounterGoals may be documented in an alternate section No data available for this section Source Comments (unrecognize d section and content) In the event this informatio n is protected by the Federal Confidentiality of Alcohol and Drug Abuse Patient Records regulations: The Federal rules restrict any use of the information to criminally investigate or prosecute any alcohol or drug abuse patient.[facility] the event this information is protected by the Federal Confidentiality of Alcohol and Drug Abuse Patient Records regulations: The Federal rules restrict any use of the information to criminally investigate or prosecute any alcohol or drug abuse patient.[facility] HospitalIn the event this information is protected by the Federal Confidentiality of Alcohol and Drug Abuse Patient Records regulations: The Federal rules restrict any use of the information to criminally investigate or prosecute any alcohol or drug abuse patient.[facility] HospitalIn the event this information is protected by the Federal Confidentiality of Alcohol and Drug Abuse Patient Records regulations: The Federal rules restrict any use of the information to criminally investigate or prosecute any alcohol or drug abuse patient.[facility] HospitalIn the event this information is protected by the Federal Confidentiality of Alcohol and Drug Abuse Patient Records regulations: The Federal rules restrict any use of the information to criminally investigate or prosecute any alcohol or drug abuse patient.[facility] HospitalIn the event this information is protected by the Federal Confidentiality of Alcohol and Drug Abuse Patient Records regulations: The Federal rules restrict any use of the information to criminally investigate or prosecute any alcohol or drug abuse patient.[facility] HospitalIn the event this information is protected by the Federal Confidentiality of Alcohol and Drug Abuse Patient Records regulations: The Federal rules restrict any use of the information to criminally investigate or prosecute any alcohol or drug abuse patient.[facility] HospitalIn the event this information is protected by the Federal Confidentiality of Alcohol and Drug Abuse Patient Records regulations: The Federal rules restrict any use of the information to criminally investigate or prosecute any alcohol or drug abuse patient.[facility] HospitalIn the event this information is protected by the Federal Confidentiality of Alcohol and Drug Abuse Patient Records regulations: The Federal rules restrict any use of the information to criminally investigate or prosecute any alcohol or drug abuse patient.[facility] HospitalIn the event this information is protected by the Federal Confidentiality of Alcohol and Drug Abuse Patient Records regulations: The Federal rules restrict any use of the information to criminally investigate or prosecute any alcohol or drug abuse patient.[facility] HospitalIn the event this information is protected by the Federal Confidentiality of Alcohol and Drug Abuse Patient Records regulations: The Federal rules restrict any use of the information to criminally investigate or prosecute any alcohol or drug abuse patient.[facility] HospitalIn the event this information is protected by the Federal Confidentiality of Alcohol and Drug Abuse Patient Records regulations: The Federal rules restrict any use of the information to criminally investigate or prosecute any alcohol or drug abuse patient.[facility] HospitalIn the event this information is protected by the Federal Confidentiality of Alcohol and Drug Abuse Patient Records regulations: The Federal rules restrict any use of the information to criminally investigate or prosecute any alcohol or drug abuse patient.[facility] HospitalIn the event this information is protected by the Federal Confidentiality of Alcohol and Drug Abuse Patient Records regulations: The Federal rules restrict any use of the information to criminally investigate or prosecute any alcohol or drug abuse patient.[facility] HospitalIn the event this information is protected by the Federal Confidentiality of Alcohol and Drug Abuse Patient Records regulations: The Federal rules restrict any use of the information to criminally investigate or prosecute any alcohol or drug abuse patient.[facility] HospitalIn the event this information is protected by the Federal Confidentiality of Alcohol and Drug Abuse Patient Records regulations: The Federal rules restrict any use of the information to criminally investigate or prosecute any alcohol or drug abuse patient.[facility] HospitalIn the event this information is protected by the Federal Confidentiality of Alcohol and Drug Abuse Patient Records regulations: The Federal rules restrict any use of the information to criminally investigate or prosecute any alcohol or drug abuse patient.[facility] HospitalIn the event this information is protected by the Federal Confidentiality of Alcohol and Drug Abuse Patient Records regulations: The Federal rules restrict any use of the information to criminally investigate or prosecute any alcohol or drug abuse patient.[facility] HospitalIn the event this information is protected by the Federal Confidentiality of Alcohol and Drug Abuse Patient Records regulations: The Federal rules restrict any use of the information to criminally investigate or prosecute any alcohol or drug abuse patient.[facility] HospitalIn the event this information is protected by the Federal Confidentiality of Alcohol and Drug Abuse Patient Records regulations: The Federal rules restrict any use of the information to criminally investigate or prosecute any alcohol or drug abuse patient.[facility] HospitalIn the event this information is protected by the Federal Confidentiality of Alcohol and Drug Abuse Patient Records regulations: The Federal rules restrict any use of the information to criminally investigate or prosecute any alcohol or drug abuse patient.[facility] HospitalIn the event this information is protected by the Federal Confidentiality of Alcohol and Drug Abuse Patient Records regulations: The Federal rules restrict any use of the information to criminally investigate or prosecute any alcohol or drug abuse patient.[facility] HospitalIn the event this information is protected by the Federal Confidentiality of Alcohol and Drug Abuse Patient Records regulations: The Federal rules restrict any use of the information to criminally investigate or prosecute any alcohol or drug abuse patient.[facility] HospitalIn the event this information is protected by the Federal Confidentiality of Alcohol and Drug Abuse Patient Records regulations: The Federal rules restrict any use of the information to criminally investigate or prosecute any alcohol or drug abuse patient.[facility] HospitalIn the event this information is protected by the Federal Confidentiality of Alcohol and Drug Abuse Patient Records regulations: The Federal rules restrict any use of the information to criminally investigate or prosecute any alcohol or drug abuse patient.[facility] HospitalIn the event this information is protected by the Federal Confidentiality of Alcohol and Drug Abuse Patient Records regulations: The Federal rules restrict any use of the information to criminally investigate or prosecute any alcohol or drug abuse patient.[facility] HospitalIn the event this information is protected by the Federal Confidentiality of Alcohol and Drug Abuse Patient Records regulations: The Federal rules restrict any use of the information to criminally investigate or prosecute any alcohol or drug abuse patient.[facility] HospitalIn the event this information is protected by the Federal Confidentiality of Alcohol and Drug Abuse Patient Records regulations: The Federal rules restrict any use of the information to criminally investigate or prosecute any alcohol or drug abuse patient.[facility] HospitalIn the event this information is protected by the Federal Confidentiality of Alcohol and Drug Abuse Patient Records regulations: The Federal rules restrict any use of the information to criminally investigate or prosecute any alcohol or drug abuse patient.[facility] HospitalIn the event this information is protected by the Federal Confidentiality of Alcohol and Drug Abuse Patient Records regulations: The Federal rules restrict any use of the information to criminally investigate or prosecute any alcohol or drug abuse patient.[facility] HospitalIn the event this information is protected by the Federal Confidentiality of Alcohol and Drug Abuse Patient Records regulations: The Federal rules restrict any use of the information to criminally investigate or prosecute any alcohol or drug abuse patient.[facility] HospitalIn the event this information is protected by the Federal Confidentiality of Alcohol and Drug Abuse Patient Records regulations: The Federal rules restrict any use of the information to criminally investigate or prosecute any alcohol or drug abuse patient.[facility] HospitalIn the event this information is protected by the Federal Confidentiality of Alcohol and Drug Abuse Patient Records regulations: The Federal rules restrict any use of the information to criminally investigate or prosecute any alcohol or drug abuse patient.[facility] HospitalIn the event this information is protected by the Federal Confidentiality of Alcohol and Drug Abuse Patient Records regulations: The Federal rules restrict any use of the information to criminally investigate or prosecute any alcohol or drug abuse patient.[facility] HospitalIn the event this information is protected by the Federal Confidentiality of Alcohol and Drug Abuse Patient Records regulations: The Federal rules restrict any use of the information to criminally investigate or prosecute any alcohol or drug abuse patient.[facility] HospitalIn the event this information is protected by the Federal Confidentiality of Alcohol and Drug Abuse Patient Records regulations: The Federal rules restrict any use of the information to criminally investigate or prosecute any alcohol or drug abuse patient.[facility] HospitalIn the event this information is protected by the Federal Confidentiality of Alcohol and Drug Abuse Patient Records regulations: The Federal rules restrict any use of the information to criminally investigate or prosecute any alcohol or drug abuse patient.[facility] HospitalIn the event this information is protected by the Federal Confidentiality of Alcohol and Drug Abuse Patient Records regulations: The Federal rules restrict any use of the information to criminally investigate or prosecute any alcohol or drug abuse patient.[facility] HospitalIn the event this information is protected by the Federal Confidentiality of Alcohol and Drug Abuse Patient Records regulations: The Federal rules restrict any use of the information to criminally investigate or prosecute any alcohol or drug abuse patient.[facility] HospitalIn the event this information is protected by the Federal Confidentiality of Alcohol and Drug Abuse Patient Records regulations: The Federal rules restrict any use of the information to criminally investigate or prosecute any alcohol or drug abuse patient.[facility] HospitalIn the event this information is protected by the Federal Confidentiality of Alcohol and Drug Abuse Patient Records regulations: The Federal rules restrict any use of the information to criminally investigate or prosecute any alcohol or drug abuse patient.[facility] HospitalIn the event this information is protected by the Federal Confidentiality of Alcohol and Drug Abuse Patient Records regulations: The Federal rules restrict any use of the information to criminally investigate or prosecute any alcohol or drug abuse patient.[facility] HospitalIn the event this information is protected by the Federal Confidentiality of Alcohol and Drug Abuse Patient Records regulations: The Federal rules restrict any use of the information to criminally investigate or prosecute any alcohol or drug abuse patient.[facility] HospitalIn the event this information is protected by the Federal Confidentiality of Alcohol and Drug Abuse Patient Records regulations: The Federal rules restrict any use of the information to criminally investigate or prosecute any alcohol or drug abuse patient.[facility] HospitalIn the event this information is protected by the Federal Confidentiality of Alcohol and Drug Abuse Patient Records regulations: The Federal rules restrict any use of the information to criminally investigate or prosecute any alcohol or drug abuse patient.[facility] HospitalIn the event this information is protected by the Federal Confidentiality of Alcohol and Drug Abuse Patient Records regulations: The Federal rules restrict any use of the information to criminally investigate or prosecute any alcohol or drug abuse patient.[facility] HospitalIn the event this information is protected by the Federal Confidentiality of Alcohol and Drug Abuse Patient Records regulations: The Federal rules restrict any use of the information to criminally investigate or prosecute any alcohol or drug abuse patient.[facility] HospitalIn the event this information is protected by the Federal Confidentiality of Alcohol and Drug Abuse Patient Records regulations: The Federal rules restrict any use of the information to criminally investigate or prosecute any alcohol or drug abuse patient.[facility] HospitalIn the event this information is protected by the Federal Confidentiality of Alcohol and Drug Abuse Patient Records regulations: The Federal rules restrict any use of the information to criminally investigate or prosecute any alcohol or drug abuse patient.[facility] HospitalIn the event this information is protected by the Federal Confidentiality of Alcohol and Drug Abuse Patient Records regulations: The Federal rules restrict any use of the information to criminally investigate or prosecute any alcohol or drug abuse patient.[facility] HospitalIn the event this information is protected by the Federal Confidentiality of Alcohol and Drug Abuse Patient Records regulations: The Federal rules restrict any use of the information to criminally investigate or prosecute any alcohol or drug abuse patient.[facility] HospitalIn the event this information is protected by the Federal Confidentiality of Alcohol and Drug Abuse Patient Records regulations: The Federal rules restrict any use of the information to criminally investigate or prosecute any alcohol or drug abuse patient.[facility] HospitalIn the event this information is protected by the Federal Confidentiality of Alcohol and Drug Abuse Patient Records regulations: The Federal rules restrict any use of the information to criminally investigate or prosecute any alcohol or drug abuse patient.[facility] HospitalIn the event this information is protected by the Federal Confidentiality of Alcohol and Drug Abuse Patient Records regulations: The Federal rules restrict any use of the information to criminally investigate or prosecute any alcohol or drug abuse patient.[facility] HospitalIn the event this information is protected by the Federal Confidentiality of Alcohol and Drug Abuse Patient Records regulations: The Federal rules restrict any use of the information to criminally investigate or prosecute any alcohol or drug abuse patient.[facility] HospitalIn the event this information is protected by the Federal Confidentiality of Alcohol and Drug Abuse Patient Records regulations: The Federal rules restrict any use of the information to criminally investigate or prosecute any alcohol or drug abuse patient.[facility] HospitalIn the event this information is protected by the Federal Confidentiality of Alcohol and Drug Abuse Patient Records regulations: The Federal rules restrict any use of the information to criminally investigate or prosecute any alcohol or drug abuse patient.[facility] HospitalIn the event this information is protected by the Federal Confidentiality of Alcohol and Drug Abuse Patient Records regulations: The Federal rules restrict any use of the information to criminally investigate or prosecute any alcohol or drug abuse patient.[facility] HospitalIn the event this information is protected by the Federal Confidentiality of Alcohol and Drug Abuse Patient Records regulations: The Federal rules restrict any use of the information to criminally investigate or prosecute any alcohol or drug abuse patient.[facility] HospitalIn the event this information is protected by the Federal Confidentiality of Alcohol and Drug Abuse Patient Records regulations: The Federal rules restrict any use of the information to criminally investigate or prosecute any alcohol or drug abuse patient.[facility] HospitalIn the event this information is protected by the Federal Confidentiality of Alcohol and Drug Abuse Patient Records regulations: The Federal rules restrict any use of the information to criminally investigate or prosecute any alcohol or drug abuse patient.[facility] HospitalIn the event this information is protected by the Federal Confidentiality of Alcohol and Drug Abuse Patient Records regulations: The Federal rules restrict any use of the information to criminally investigate or prosecute any alcohol or drug abuse patient.[facility] HospitalIn the event this information is protected by the Federal Confidentiality of Alcohol and Drug Abuse Patient Records regulations: The Federal rules restrict any use of the information to criminally investigate or prosecute any alcohol or drug abuse patient.[facility] HospitalIn the event this information is protected by the Federal Confidentiality of Alcohol and Drug Abuse Patient Records regulations: The Federal rules restrict any use of the information to criminally investigate or prosecute any alcohol or drug abuse patient.[facility] HospitalIn the event this information is protected by the Federal Confidentiality of Alcohol and Drug Abuse Patient Records regulations: The Federal rules restrict any use of the information to criminally investigate or prosecute any alcohol or drug abuse patient.[facility] HospitalIn the event this information is protected by the Federal Confidentiality of Alcohol and Drug Abuse Patient Records regulations: The Federal rules restrict any use of the information to criminally investigate or prosecute any alcohol or drug abuse patient.[facility] HospitalIn the event this information is protected by the Federal Confidentiality of Alcohol and Drug Abuse Patient Records regulations: The Federal rules restrict any use of the information to criminally investigate or prosecute any alcohol or drug abuse patient.[facility] HospitalIn the event this information is protected by the Federal Confidentiality of Alcohol and Drug Abuse Patient Records regulations: The Federal rules restrict any use of the information to criminally investigate or prosecute any alcohol or drug abuse patient.[facility] HospitalIn the event this information is protected by the Federal Confidentiality of Alcohol and Drug Abuse Patient Records regulations: The Federal rules restrict any use of the information to criminally investigate or prosecute any alcohol or drug abuse patient.[facility] HospitalIn the event this information is protected by the Federal Confidentiality of Alcohol and Drug Abuse Patient Records regulations: The Federal rules restrict any use of the information to criminally investigate or prosecute any alcohol or drug abuse patient.[facility] HospitalIn the event this information is protected by the Federal Confidentiality of Alcohol and Drug Abuse Patient Records regulations: The Federal rules restrict any use of the information to criminally investigate or prosecute any alcohol or drug abuse patient.[facility] HospitalIn the event this information is protected by the Federal Confidentiality of Alcohol and Drug Abuse Patient Records regulations: The Federal rules restrict any use of the information to criminally investigate or prosecute any alcohol or drug abuse patient.[facility] HospitalIn the event this information is protected by the Federal Confidentiality of Alcohol and Drug Abuse Patient Records regulations: The Federal rules restrict any use of the information to criminally investigate or prosecute any alcohol or drug abuse patient.[facility] HospitalIn the event this information is protected by the Federal Confidentiality of Alcohol and Drug Abuse Patient Records regulations: The Federal rules restrict any use of the information to criminally investigate or prosecute any alcohol or drug abuse patient.[facility] HospitalIn the event this information is protected by the Federal Confidentiality of Alcohol and Drug Abuse Patient Records regulations: The Federal rules restrict any use of the information to criminally investigate or prosecute any alcohol or drug abuse patient.[facility] HospitalIn the event this information is protected by the Federal Confidentiality of Alcohol and Drug Abuse Patient Records regulations: The Federal rules restrict any use of the information to criminally investigate or prosecute any alcohol or drug abuse patient.[facility] HospitalIn the event this information is protected by the Federal Confidentiality of Alcohol and Drug Abuse Patient Records regulations: The Federal rules restrict any use of the information to criminally investigate or prosecute any alcohol or drug abuse patient.[facility] HospitalIn the event this information is protected by the Federal Confidentiality of Alcohol and Drug Abuse Patient Records regulations: The Federal rules restrict any use of the information to criminally investigate or prosecute any alcohol or drug abuse patient.[facility] HospitalIn the event this information is protected by the Federal Confidentiality of Alcohol and Drug Abuse Patient Records regulations: The Federal rules restrict any use of the information to criminally investigate or prosecute any alcohol or drug abuse patient.[facility] HospitalIn the event this information is protected by the Federal Confidentiality of Alcohol and Drug Abuse Patient Records regulations: The Federal rules restrict any use of the information to criminally investigate or prosecute any alcohol or drug abuse patient.[facility] HospitalIn the event this information is protected by the Federal Confidentiality of Alcohol and Drug Abuse Patient Records regulations: The Federal rules restrict any use of the information to criminally investigate or prosecute any alcohol or drug abuse patient.[facility] HospitalIn the event this information is protected by the Federal Confidentiality of Alcohol and Drug Abuse Patient Records regulations: The Federal rules restrict any use of the information to criminally investigate or prosecute any alcohol or drug abuse patient.[facility] HospitalIn the event this information is protected by the Federal Confidentiality of Alcohol and Drug Abuse Patient Records regulations: The Federal rules restrict any use of the information to criminally investigate or prosecute any alcohol or drug abuse patient.[facility] HospitalIn the event this information is protected by the Federal Confidentiality of Alcohol and Drug Abuse Patient Records regulations: The Federal rules restrict any use of the information to criminally investigate or prosecute any alcohol or drug abuse patient.[facility] HospitalIn the event this information is protected by the Federal Confidentiality of Alcohol and Drug Abuse Patient Records regulations: The Federal rules restrict any use of the information to criminally investigate or prosecute any alcohol or drug abuse patient.[facility] HospitalIn the event this information is protected by the Federal Confidentiality of Alcohol and Drug Abuse Patient Records regulations: The Federal rules restrict any use of the information to criminally investigate or prosecute any alcohol or drug abuse patient.[facility] HospitalIn the event this information is protected by the Federal Confidentiality of Alcohol and Drug Abuse Patient Records regulations: The Federal rules restrict any use of the information to criminally investigate or prosecute any alcohol or drug abuse patient.[facility] HospitalIn the event this information is protected by the Federal Confidentiality of Alcohol and Drug Abuse Patient Records regulations: The Federal rules restrict any use of the information to criminally investigate or prosecute any alcohol or drug abuse patient.[facility] HospitalIn the event this information is protected by the Federal Confidentiality of Alcohol and Drug Abuse Patient Records regulations: The Federal rules restrict any use of the information to criminally investigate or prosecute any alcohol or drug abuse patient.[facility] HospitalIn the event this information is protected by the Federal Confidentiality of Alcohol and Drug Abuse Patient Records regulations: The Federal rules restrict any use of the information to criminally investigate or prosecute any alcohol or drug abuse patient.[facility] HospitalIn the event this information is protected by the Federal Confidentiality of Alcohol and Drug Abuse Patient Records regulations: The Federal rules restrict any use of the information to criminally investigate or prosecute any alcohol or drug abuse patient.[facility] HospitalIn the event this information is protected by the Federal Confidentiality of Alcohol and Drug Abuse Patient Records regulations: The Federal rules restrict any use of the information to criminally investigate or prosecute any alcohol or drug abuse patient.[facility] HospitalIn the event this information is protected by the Federal Confidentiality of Alcohol and Drug Abuse Patient Records regulations: The Federal rules restrict any use of the information to criminally investigate or prosecute any alcohol or drug abuse patient.[facility] HospitalIn the event this information is protected by the Federal Confidentiality of Alcohol and Drug Abuse Patient Records regulations: The Federal rules restrict any use of the information to criminally investigate or prosecute any alcohol or drug abuse patient.[facility] HospitalIn the event this information is protected by the Federal Confidentiality of Alcohol and Drug Abuse Patient Records regulations: The Federal rules restrict any use of the information to criminally investigate or prosecute any alcohol or drug abuse patient.[facility] HospitalIn the event this information is protected by the Federal Confidentiality of Alcohol and Drug Abuse Patient Records regulations: The Federal rules restrict any use of the information to criminally investigate or prosecute any alcohol or drug abuse patient.[facility] HospitalIn the event this information is protected by the Federal Confidentiality of Alcohol and Drug Abuse Patient Records regulations: The Federal rules restrict any use of the information to criminally investigate or prosecute any alcohol or drug abuse patient.[facility] HospitalIn the event this information is protected by the Federal Confidentiality of Alcohol and Drug Abuse Patient Records regulations: The Federal rules restrict any use of the information to criminally investigate or prosecute any alcohol or drug abuse patient.[facility] HospitalIn the event this information is protected by the Federal Confidentiality of Alcohol and Drug Abuse Patient Records regulations: The Federal rules restrict any use of the information to criminally investigate or prosecute any alcohol or drug abuse patient.[facility] HospitalIn the event this information is protected by the Federal Confidentiality of Alcohol and Drug Abuse Patient Records regulations: The Federal rules restrict any use of the information to criminally investigate or prosecute any alcohol or drug abuse patient.[facility] HospitalIn the event this information is protected by the Federal Confidentiality of Alcohol and Drug Abuse Patient Records regulations: The Federal rules restrict any use of the information to criminally investigate or prosecute any alcohol or drug abuse patient.[facility] HospitalIn the event this information is protected by the Federal Confidentiality of Alcohol and Drug Abuse Patient Records regulations: The Federal rules restrict any use of the information to criminally investigate or prosecute any alcohol or drug abuse patient.[facility] HospitalIn the event this information is protected by the Federal Confidentiality of Alcohol and Drug Abuse Patient Records regulations: The Federal rules restrict any use of the information to criminally investigate or prosecute any alcohol or drug abuse patient.[facility] HospitalIn the event this information is protected by the Federal Confidentiality of Alcohol and Drug Abuse Patient Records regulations: The Federal rules restrict any use of the information to criminally investigate or prosecute any alcohol or drug abuse patient.[facility] HospitalIn the event this information is protected by the Federal Confidentiality of Alcohol and Drug Abuse Patient Records regulations: The Federal rules restrict any use of the information to criminally investigate or prosecute any alcohol or drug abuse patient.[facility] HospitalIn the event this information is protected by the Federal Confidentiality of Alcohol and Drug Abuse Patient Records regulations: The Federal rules restrict any use of the information to criminally investigate or prosecute any alcohol or drug abuse patient.[facility] HospitalIn the event this information is protected by the Federal Confidentiality of Alcohol and Drug Abuse Patient Records regulations: The Federal rules restrict any use of the information to criminally investigate or prosecute any alcohol or drug abuse patient.[facility] HospitalIn the event this information is protected by the Federal Confidentiality of Alcohol and Drug Abuse Patient Records regulations: The Federal rules restrict any use of the information to criminally investigate or prosecute any alcohol or drug abuse patient.[facility] HospitalIn the event this information is protected by the Federal Confidentiality of Alcohol and Drug Abuse Patient Records regulations: The Federal rules restrict any use of the information to criminally investigate or prosecute any alcohol or drug abuse patient.[facility] HospitalIn the event this information is protected by the Federal Confidentiality of Alcohol and Drug Abuse Patient Records regulations: The Federal rules restrict any use of the information to criminally investigate or prosecute any alcohol or drug abuse patient.[facility] HospitalIn the event this information is protected by the Federal Confidentiality of Alcohol and Drug Abuse Patient Records regulations: The Federal rules restrict any use of the information to criminally investigate or prosecute any alcohol or drug abuse patient.[facility] HospitalIn the event this information is protected by the Federal Confidentiality of Alcohol and Drug Abuse Patient Records regulations: The Federal rules restrict any use of the information to criminally investigate or prosecute any alcohol or drug abuse patient.[facility] FOR RECORDS PERTAINING TO PATIENTS WHO ARE [...] BE BASED ON THE PRIMARY CLINICAL RECORDS. [facility]. provides no warranty or guarantee of the accuracy or completeness of information in this document.
[2025-06-28] MEDS: FAMOTIDINE/PF 20 MG/2 ML VIAL IV (09:08)
[2025-06-28] MEDS: CEFAZOLIN SODIUM 2 GM/50 ML D5W PREMIX IV (12:36)
[2025-06-28] MEDS: IOHEXOL 300 MG/ML - 50 ML BTL INJ (13:10)
--- NOTE | 2025-06-28 13:22 | PM.URSON ---
Urology Surgery Operative Note Operative Note Procedure Date: 06/28/25 Time Out Performed: yes Pre-op Diagnosis: Right hydroureteronephrosis from extrinsic compression on the ureter Post-op Diagnosis: same as pre-op Procedures performed: 1. Cystoscopy. 2. Right retrograde pyelogram. 3. Right rigid ureteral dilation to 10 [place]. 4. Right ureteroscopy. 5. Placement of 7 [place] variable length right ureteral stent Anesthesia: General-LMA Primary Surgeon: Carlin Nolasco Complications: None Estimated blood loss (mL): 5 Findings: 1. Significant distal ureteral stenosis. 2. Right hydro and ureteral nephrosis. Specimens: None Drains: 7 [place] variable length right ureteral stent Indications for Procedures: This lady has right hydroureteronephrosis by PET scan. She has metastatic ovarian cancer with adenopathy the in the region of her right ureter. It is presumed that she has extrinsic compression of the distal right ureter. She now presents for cystoscopy, retrograde, right ureteroscopy and right stent placement. She has signed an informed consent after risks were explained. Detailed description of Procedure: The patient was brought to the operating room and placed on the operating room table in the supine position. SCDs were placed on the lower extremities and turned on and functioning during the entire case. Timeout was done by all parties in the room. We all agreed upon the patient's identification and the planned procedures for this patient. Genn. anesthesia was then administered. The patient was then repositioned into the modified dorsal lithotomy position. All pressure points were satisfactorily padded. Genitalia were sterilely prepped and draped in usual fashion. I started by passing a 22 [place] Olympus cystoscope per urethra and into the bladder. Careful panendoscopy in the bladder revealed no evidence of any tumors, lesions, stones or evidence of extrinsic compression onto the bladder. I then passed a Glidewire through the scope and into the right ureter. The wire got held up at the L3 region. The wire was then removed. I then passed a 6 [place] open-ended ureteral catheter through the scope and into the right ureter. I then injected contrast in a retrograde manner. This showed distal narrowing of the distal 3 to 4 cm of the ureter along with proximal dilatation and tortuosity of the proximal ureter. There was also hydronephrosis seen. I then repassed the wire through the scope into the ureter and I was able to get it through the tortuous area and into the capacious renal pelvis. The catheter was removed. The scope was removed. I then passed a semirigid ureteroscope adjacent to the wire through the urethra into the bladder and into the right ureter. I carefully ascended up the ureter to the L5 position and back down. I did not notice any stones, scars, tumors or clear evidence of extrinsic compression. Ureteroscope was then removed. I then backloaded the cystoscope over the wire and passed it into the bladder. I then slid a 7 [place] variable length stent over the wire up to the kidney. The wire was removed and there were good curls in the kidney and in the bladder. The bladder was drained of its contents and the scope was then removed. She was then transferred [facility] a [facility] bed and wheeled to PACU in stable condition.
[2025-06-28] MEDS: SOLIFENACIN SUCCINATE 10 MG TABLET PO (13:39)
== END 2025-06-28 15:00 | disposition home or self-care (01) ==
LOC: SURGOUT 08:30
PROVIDERS: PCP Internal Medicine; Visit Provider Urology
PROC: (CPT 52332; principal; 2025-06-28 10:10)
DX: N13.30 Unspecified hydronephrosis (principal); D64.9 Anemia, unspecified; D69.6 Thrombocytopenia, unspecified; C56.9 Malignant neoplasm of unspecified ovary; C79.9 Secondary malignant neoplasm of unspecified site; Z79.60 Long term (current) use of unspecified immunomodulators and immunosuppressants; Q62.10 Congenital occlusion of ureter, unspecified; Z87.442 Personal history of urinary calculi; Z90.721 Acquired absence of ovaries, unilateral
CPT/HCPCS: 52332; 36415; 74420; 85025; J0131; J0690; J1100; J2250; J2371; J2405; J2704; J3010; J3490; Q9967